=== PATIENT | male | born 1985 | race Caucasian/White ===

== ENCOUNTER → 2020-03-15 10:34 | Outpatient (BNVA) | payer OTHER, SELFPAY | PROVIDERS: Visit Provider Nurse Practitioner Psychiatric/Mental Health | DX: F10.20 Alcohol dependence, uncomplicated (principal) | CPT/HCPCS: 80305; 96372 ==

== ENCOUNTER → 2020-03-29 13:11 | Outpatient (BNVA) | payer OTHER, SELFPAY | PROVIDERS: Visit Provider Nurse Practitioner Psychiatric/Mental Health | DX: Z76.89 Persons encountering health services in other specified circumstances (principal) ==

== ENCOUNTER → 2020-04-12 10:09 | Outpatient (BNVA) | payer OTHER, SELFPAY | PROVIDERS: PCP Internal Medicine; Visit Provider Nurse Practitioner Psychiatric/Mental Health | DX: F10.11 Alcohol abuse, in remission (principal) | CPT/HCPCS: 80305 ==

== ENCOUNTER → 2020-05-10 11:12 | Outpatient (BNVA) | payer OTHER, SELFPAY | PROVIDERS: Visit Provider Nurse Practitioner Psychiatric/Mental Health | DX: F10.21 Alcohol dependence, in remission (principal) | CPT/HCPCS: 80305; 96372 ==

== ENCOUNTER → 2020-06-07 10:58 | Outpatient (BNVA) | payer OTHER, SELFPAY | PROVIDERS: Visit Provider Nurse Practitioner Psychiatric/Mental Health | DX: F10.21 Alcohol dependence, in remission (principal) | CPT/HCPCS: 80305 ==

== ENCOUNTER → 2020-07-12 10:15 | Outpatient (BNVA) | payer OTHER, SELFPAY | PROVIDERS: Visit Provider Nurse Practitioner Psychiatric/Mental Health | DX: F10.21 Alcohol dependence, in remission (principal) | CPT/HCPCS: 80305 ==

== ENCOUNTER → 2020-08-09 10:07 | Outpatient (BNVA) | payer OTHER, SELFPAY | PROVIDERS: Visit Provider Nurse Practitioner Psychiatric/Mental Health | DX: Z51.81 Encounter for therapeutic drug level monitoring (principal); F10.21 Alcohol dependence, in remission | CPT/HCPCS: 80305 ==

== ENCOUNTER → 2020-09-06 10:02 | Outpatient (BNVA) | payer OTHER, SELFPAY | PROVIDERS: Visit Provider Nurse Practitioner Psychiatric/Mental Health | DX: F10.21 Alcohol dependence, in remission (principal) | CPT/HCPCS: 80305; 96372 ==

== ENCOUNTER → 2020-10-04 10:19 | Outpatient (BNVA) | payer OTHER, SELFPAY | PROVIDERS: Visit Provider Nurse Practitioner Psychiatric/Mental Health | DX: F10.21 Alcohol dependence, in remission (principal); Z51.81 Encounter for therapeutic drug level monitoring | CPT/HCPCS: 96372 ==

== ENCOUNTER → 2020-11-01 10:07 | Outpatient (BNVA) | payer OTHER, SELFPAY | PROVIDERS: Visit Provider Nurse Practitioner Psychiatric/Mental Health | DX: F10.21 Alcohol dependence, in remission (principal) | CPT/HCPCS: 80305; 96372 ==

== ENCOUNTER → 2020-11-29 10:06 | Outpatient (BNVA) | payer OTHER, SELFPAY | PROVIDERS: Visit Provider Nurse Practitioner Psychiatric/Mental Health | DX: F10.21 Alcohol dependence, in remission (principal) | CPT/HCPCS: 80305 ==

== ENCOUNTER 2020-12-31 15:10 | Inpatient (IN) | payer OTHER, SELFPAY ==
--- NOTE | ~2020-12-31 | US_ITS ---
EXAMINATION: US ABDOMEN LIMITED CLINICAL INFORMATION: Elevated LFTs. COMPARISON: CT abdomen and pelvis 07/06/2019. TECHNIQUE: Real-time imaging of the right upper quadrant abdominal viscera. FINDINGS: PANCREAS: Normal LIVER: The liver is normal in size. The liver contour is normal. Liver echotexture is increased probably representing fatty infiltration. No focal hepatic lesion. There is no intrahepatic biliary duct dilatation seen. GALLBLADDER: The gallbladder is contracted. No gallstones are seen. COMMON BILE DUCT: Normal in caliber measuring 0.4 cm in diameter. RIGHT KIDNEY: Normal. No hydronephrosis. No renal calculi or focal parenchymal lesions. The kidney measures 10.3 cm in maximum dimension. FREE FLUID: None. US/US abdomen limited IMPRESSION: Echogenic liver probably representing fatty infiltration.
[2020-12-31 16:11] VITALS: BP 172/118; PULSE 118; RESP 18; TEMP 36.9; O2SAT 100; BMI 25.8
[2020-12-31] MEDS: LORazepam 1 MG TABLET 2 MG PO (17:17)
--- NOTE | 2020-12-31 17:23 | ECG_ITS ---
Test Reason : MEDICAL CLEARANCE Blood Pressure : / mmHG Vent. Rate : 068 BPM Atrial Rate : 068 BPM P-R Int : 154 ms QRS Dur : 086 ms QT Int : 414 ms P-R-T Axes : 032 014 021 degrees QTc Int : 440 ms Normal sinus rhythm with sinus arrhythmia Normal ECG When compared with ECG of 02-JUL-2019 08:44, Vent. rate has decreased BY 45 BPM Referred By: Gregor Chery Electronically Signed By:Librado Chanel
--- NOTE | 2020-12-31 17:26 | ED_ITS ---
HPI - Psych General Chief Complaint: Psychiatric Symptoms Stated Complaint: CRISIS Time Seen by Provider: 12/31/20 20:25 Source: patient Mode of arrival: ambulatory Limitations: no limitations History of Present Illness HPI Narrative: Patient presents to the ED for depression and suicide ideation. Patient states due to suicidal ideation that has caused him to excessively drink. Patient states last drink was last night. Patient has been admitted before for suicidal ideation. Patient states SI symptoms MD complaint: suicidal ideation and feels depressed Related Data Home Medications Medication Instructions Recorded Confirmed amlodipine 5 mg tablet 1 tab PO BID 12/31/20 12/31/20 clonidine HCl 0.1 mg tablet 1 tab PO BID 12/31/20 12/31/20 fluoxetine 20 mg capsule 1 cap PO DAILY 12/31/20 12/31/20 Allergies Allergy/AdvReac Type Severity Reaction Status Date / Time No Known Allergies Allergy Unknown UNKNOWN Verified 11/29/20 10:25 [NO KNOWN ALLERGIES] Review of Systems Review of Systems: Yes all other systems are reviewed and are negative Constitutional: Constitutional: Reports as per HPI and Reports no additional constitutional complaints Eyes: Eyes: Reports as per HPI and Reports no additional eye complaints ENT: Reports system reviewed and no additional complaints, except as documented and Reports as per HPI Cardiovascular: Cardiovascular: Reports as per HPI and Reports no additional cardiovascular complaints Respiratory: Respiratory: Reports as per HPI and Reports no additional respiratory complaints Gastrointestinal: Gastrointestinal: Reports as per HPI and Reports no additional gastrointestinal complaints Genitourinary: Genitourinary: Reports no additional male genitourinary complaints and Reports as per HPI Musculoskeletal: Musculoskeletal: Reports no additional musculoskeletal complaints and Reports as per HPI Integumentary/Breasts: Skin/Breast: Reports system reviewed and no additional complaints, except as docu and Reports as per HPI Neurologic: Reports system reviewed and no additional complaints, except as documented and Reports as per HPI Psychiatric: Psychiatric: Reports no additional psychiatric complaints and R eports as per HPI PMFSH Past Medical History Medical History (Updated 01/01/21 @ 00:25 by GLENYS Ortega) ETOH abuse Psychiatric disturbance Social History Social History Advance Directives: No Advance Directives Information Provided: Yes Healthcare Proxy: Yes Guardian: No Physical Exam Vital Signs: Vital Signs: Last Vital Signs Temp 98.4 F 12/31/20 16:11 Pulse 85 12/31/20 22:08 Resp 18 12/31/20 16:11 BP 137/92 H 12/31/20 22:08 Pulse Ox 100 12/31/20 16:11 Body Mass Index 25.8 Const: General: cooperative, healthy appearing, comfortable, no acute distress, well developed, alert, awake and Physically active Orientation/consciousness: patient oriented x3 HENMT: Head: Yes normal to inspection, Yes No palpable skull fracture present, Yes normocephalic, Yes atraumatic and No abrasion Eyes: General: appearance normal, both eyes and all related structures Neck: Neck: Yes normal visual inspection, Yes full ROM, Yes no lymphadenopathy, Yes no meningeal signs, Yes trachea midline, Yes supple and No tender Chest: Chest palpation & inspection: normal inspection of the chest and normal palpation of entire chest wall Resp: Effort & Inspection: normal respiratory effort and able to speak in complete sentences Auscultation: clear to auscultation bilaterally Cardio: Jugular venous distension: no JVD Heart sounds: S1 normal heart sound present and S2 normal heart sound present GI: Inspection: Yes normal to inspection and No abdominal wall ecchymosis Palpation (GI): Soft to palpation, not firm, nontender, no guarding and not rigid : General: No CVA tenderness and Yes no CVA tenderness Back/Spine/Pelvis: Back: no CVA tenderness, No CVA tenderness and No back tenderness Skin: General skin exam: no rashes or lesions noted and elasticity normal Neuro: Other: Positive for tremors General: patient oriented x3, gait normal and no meningeal signs Cranial nerves: Yes CN's II-XII intact bilaterally Extrem: General: Yes normal to inspection and Yes full ROM Psych: Appearance: grossly normal, well kempt and not disheveled Course Course Course Narrative: Patient medical evaluation. Patient may be early alcohol withdrawal versus severe anxiety. Patient does not do alcohol abuse. Will give Ativan and Librium and re-evaluate. Basic labs ordered Reevaluation(s) Reevaluation #1: Patient's tremors resolved. Patient feels better. Patient evaluated by care team consulted had other who states patient will be a voluntary psych inpatient. Time: 00:24 MDM - Psych MDM Narrative Medical decision making narrative: Depression Lab Data Result diagrams: 12/31/20 19:21 12/31/20 19:21 Labs: Lab Results 12/31/20 12/31/20 12/31/20 Range/Units 17:21 17:40 17:40 WBC (4.8-10.8) X10*3/uL RBC (4.60-5.80) X10*6/uL Hgb (14.0-18.0) g/dl Hct (42-52) % MCV (80-98) fL MCH (27.0-33.0) pg MCHC (31.0-36.0) g/dl RDW (11.0-16.0) % Plt Count (160-400) X10*3/uL MPV (9.4-12.4) fL Immature Gran % (Auto) (0.0-0.4) % Neut % (Auto) (45-73) % Lymph % (Auto) (20-40) % [place] % (Auto) (2-11) % Eos % (Auto) (0-4) % Baso % (Auto) (0-2) % Lymph # (Auto) (1.2-4.9) X10*3/uL [place] # (Auto) (0.1-1.2) X10*3/uL Eos # (Auto) (0.0-0.4) X10*3/uL Baso # (Auto) (0.0-0.2) X10*3/uL Abs Immat Gran (auto) (0.00-0.03) X10*3/uL Absolute Neuts (auto) (2.0-8.3) X10*3/uL Absolute Nucleated RBC (0.0-0.012) X10*3/uL Nucleated RBC % (auto) (0.0-0.2) /100WBC Sodium (135-145) mmol/L Potassium (3.3-5.1) mmol/L Chloride (96-108) mmol/L Carbon Dioxide (22-29) mmol/L Anion Gap (12-20) BUN (9-16) mg/dL Creatinine (0.5-1.4) mg/dL Estim Creat Clear Calc Estimated GFR Random Glucose (60-115) mg/dL Calcium (8.4-10.2) mg/dL Total Bilirubin (0.0-1.0) mg/dL Direct Bilirubin (0.0-0.5) mg/dL AST (5-37) U/L ALT (0-40) U/L Alkaline Phosphatase (39-117) U/L Total Protein (6.5-8.0) g/dL Albumin (3.5-5.0) g/dL Urine Color YELLOW Urine Appearance CLEAR Urine pH 6.0 (5.0-8.0) Ur Specific [place] 1.020 (1.005-1.025) Urine Protein 2+ H (NEG-TRACE) MG/DL Urine Glucose (UA) NEG (NEG) MG/DL Urine Ketones >=80 (NEG) MG/DL Urine Blood NEG (NEG) Urine Nitrite NEG (NEG) Ur Leukocyte Esterase NEG (NEG) Urine RBC 0-2 (0) /HPF Urine WBC 0 (0-4) /HPF Ur Squamous Epith Cells NONE /LPF Urine Bacteria TRACE /LPF Urine Opiates Screen Not Detected (Not Detect) Ur Barbiturates Screen Not Detected (Not Detect) Ur Phencyclidine Scrn Not Detected (Not Detect) Ur Amphetamines Screen Not Detected (Not Detect) U Benzodiazepines Scrn Not Detected (Not Detect) Urine Cocaine Screen Not Detected (Not Detect) U Marijuana (THC) Screen Not Detected (Not Detect) Ethyl Alcohol mg/dL COVID-19 (LUCI) Negative (Negative) COVID-19 Clin Com See Note 12/31/20 12/31/20 12/31/20 Range/Units 19:20 19:21 19:21 WBC 4.6 L (4.8-10.8) X10*3/uL RBC 4.35 L (4.60-5.80) X10*6/uL Hgb 13.7 L (14.0-18.0) g/dl Hct 38.2 L (42-52) % MCV 87.8 (80-98) fL MCH 31.5 (27.0-33.0) pg MCHC 35.9 (31.0-36.0) g/dl RDW 11.6 (11.0-16.0) % Plt Count 158 L (160-400) X10*3/uL MPV 9.5 (9.4-12.4) fL Immature Gran % (Auto) 0.2 (0.0-0.4) % Neut % (Auto) 75.3 H (45-73) % Lymph % (Auto) 12.7 L (20-40) % [place] % (Auto) 11.4 H (2-11) % Eos % (Auto) 0.0 (0-4) % Baso % (Auto) 0.4 (0-2) % Lymph # (Auto) 0.6 L (1.2-4.9) X10*3/uL [place] # (Auto) 0.5 (0.1-1.2) X10*3/uL Eos # (Auto) 0.0 (0.0-0.4) X10*3/uL Baso # (Auto) 0.0 (0.0-0.2) X10*3/uL Abs Immat Gran (auto) 0.01 (0.00-0.03) X10*3/uL Absolute Neuts (auto) 3.5 (2.0-8.3) X10*3/uL Absolute Nucleated RBC 0.000 (0.0-0.012) X10*3/uL Nucleated RBC % (auto) 0.0 (0.0-0.2) /100WBC Sodium 134 L (135-145) mmol/L Potassium 3.1 L (3.3-5.1) mmol/L Chloride 97 (96-108) mmol/L Carbon Dioxide 24 (22-29) mmol/L Anion Gap 16 (12-20) BUN 11 (9-16) mg/dL Creatinine 0.88 (0.5-1.4) mg/dL Estim Creat Clear Calc 113.3 Estimated GFR > 60 Random Glucose 155 H (60-115) mg/dL Calcium 9.8 (8.4-10.2) mg/dL Total Bilirubin 0.6 (0.0-1.0) mg/dL Direct Bilirubin 0.3 (0.0-0.5) mg/dL AST 87 H (5-37) U/L ALT 230 H (0-40) U/L Alkaline Phosphatase 54 (39-117) U/L Total Protein 7.9 (6.5-8.0) g/dL Albumin 4.9 (3.5-5.0) g/dL Urine Color Urine Appearance Urine pH (5.0-8.0) Ur Specific [place] (1.005-1.025) Urine Protein (NEG-TRACE) MG/DL Urine Glucose (UA) (NEG) MG/DL Urine Ketones (NEG) MG/DL Urine Blood (NEG) Urine Nitrite (NEG) Ur Leukocyte Esterase (NEG) Urine RBC (0) /HPF Urine WBC (0-4) /HPF Ur Squamous Epith Cells /LPF Urine Bacteria /LPF Urine Opiates Screen (Not Detect) Ur Barbiturates Screen (Not Detect) Ur Phencyclidine Scrn (Not Detect) Ur Amphetamines Screen (Not Detect) U Benzodiazepines Scrn (Not Detect) Urine Cocaine Screen (Not Detect) U Marijuana (THC) Screen (Not Detect) Ethyl Alcohol < 10 mg/dL COVID-19 (LUCI) (Negative) COVID-19 Clin Com Discharge Plan Discharge Clinical Impression: Depression Prescriptions: No Action clonidine HCl 0.1 mg tablet 1 tab PO BID RF: 0 amlodipine 5 mg tablet 1 tab PO BID RF: 0 fluoxetine 20 mg capsule 1 cap PO DAILY RF: 0
[2020-12-31] MEDS: chlordiazePOXIDE HCl 25 MG CAPSULE 50 MG PO (17:38)
[2020-12-31 17:49] LABS: Glucose Urine UA NEG (NEG); Leukocyte Esterase Urine NEG (NEG); Nitrite Urine NEG (NEG); UACC Culture Trigger NO; Urine Blood NEG (NEG); Urine Ketones >=80 MG/DL (NEG); Urine Protein 2+ MG/DL (NEG-TRACE)
[2020-12-31 17:50] LABS: Appearance Urine CLEAR; Color Urine YELLOW
[2020-12-31 17:58] LABS: COVID-19 Test Negative (Negative)
[2020-12-31 18:01] VITALS: BP 166/107; PULSE 104
[2020-12-31 18:01] LABS: Bacteria Urine TRACE /LPF; RBC Urine 0-2 /HPF (0); WBC Urine 0 /HPF (0-4)
[2020-12-31 18:10] LABS: Amphetamine Screen Urine Not Detected (Not Detect); Barbiturates, Urine Not Detected (Not Detect); Benzodiazepines Screen Urine Not Detected (Not Detect); Cannabinoid Screen Urine Not Detected (Not Detect); Cocaine Screen Urine Not Detected (Not Detect); Opiate Screen Urine Not Detected (Not Detect); Phencyclidine Screen Urine Not Detected (Not Detect)
--- NOTE | 2020-12-31 18:47 | MHC.CARE ---
Pt contacted CARE team by phone prior to arrival and reported that he has been struggling with his mental health and increased alcohol use and is seeking admission. CARE team will meet with pt once he is medically cleared. It is possible that he may be in mild-moderate alcohol withdrawal and has been given PO librium and ativan. Blood pressure and heart rate are elevated. Full lab results pending.
[2020-12-31 18:57] VITALS: BP 137/85; PULSE 100
[2020-12-31 19:01] VITALS: BP 137/85; PULSE 100
[2020-12-31 19:26] LABS: MANUAL DIFF FLAG NO
[2020-12-31 19:28] LABS: Basophils Percent Auto 0.4 % (0-2); Hematocrit 38.2 % (42-52); Hemoglobin 13.7 g/dl (14.0-18.0); Imm Gran Abs Auto 0.01 X10*3/uL (0.00-0.03); Imm Gran Pct Auto 0.2 % (0.0-0.4); Lymphocytes Absolute Auto 0.6 X10*3/uL (1.2-4.9); Lymphocytes Percent Auto 12.7 % (20-40); Mean Corpuscular HGB Conc 35.9 g/dl (31.0-36.0); Mean Corpuscular Hemoglobin 31.5 pg (27.0-33.0); Mean Corpuscular Volume 87.8 fL (80-98); Mean Platelet Volume 9.5 fL (9.4-12.4); Monocytes Absolute Auto 0.5 X10*3/uL (0.1-1.2); Monocytes Percent Auto 11.4 % (2-11); Neutrophils Absolute Auto 3.5 X10*3/uL (2.0-8.3); Neutrophils Percent Auto 75.3 % (45-73); Platelet Count 158 X10*3/uL (160-400); Red Blood Count 4.35 X10*6/uL (4.60-5.80); Red Cell Distribution Width 11.6 % (11.0-16.0); White Blood Count 4.6 X10*3/uL (4.8-10.8)
[2020-12-31 19:49] LABS: Ethanol < 10 mg/dL
[2020-12-31 19:53] LABS: Alanine Aminotransferase 230 U/L (0-40); Albumin Level 4.9 g/dL (3.5-5.0); Alkaline Phosphatase 54 U/L (39-117); Anion Gap 16 (12-20); Aspartate Amino Transferase 87 U/L (5-37); Bilirubin Direct 0.3 mg/dL (0.0-0.5); Bilirubin Total 0.6 mg/dL (0.0-1.0); Blood Urea Nitrogen 11 mg/dL (9-16); Calcium 9.8 mg/dL (8.4-10.2); Carbon Dioxide 24 mmol/L (22-29); Chloride 97 mmol/L (96-108); Creatinine Clr Calc Pharmacy 113.3; Estimated Glomerular Filt Rate > 60; Glucose Random 155 mg/dL (60-115); Potassium 3.1 mmol/L (3.3-5.1); Sodium 134 mmol/L (135-145); Total Protein 7.9 g/dL (6.5-8.0)
--- NOTE | 2020-12-31 21:59 | PC.NURSE ---
Patient got assessed by care team, disposition notified was voluntary inpatient bed search, patient/provider are in agreement to the plan, will continue to monitor.
[2020-12-31 22:08] VITALS: BP 137/92; PULSE 85
--- NOTE | 2020-12-31 22:27 | MHC.CARE ---
CARE team completed assessment with pt. Disposition is for voluntary psychiatric admission. Gregor VERONICA is in agreement with plan of care. He will be presented for possible admission to M5 or M3 tomorrow.
[2021-01-01] VITALS (7 sets, daily range): BP systolic 132–166; BP diastolic 90–107; PULSE 78–103; RESP 17–20; TEMP 36.4–36.9; O2SAT 99–100
[2021-01-01] MEDS: chlordiazePOXIDE HCl 25 MG CAPSULE PO (02:46)
--- NOTE | 2021-01-01 02:52 | PC.NURSE ---
Patient's CIWA assessed was 10, provider notified/ordered Librium 25 mg/administered as ordered/pending effect. will continue to monitor.
--- NOTE | 2021-01-01 05:46 | PC.NURSE ---
Patient slept through the night, up once for bathroom use and back, scored 10 on CIWA/administered Librium 25 mg with + effect, pending EKG, patient's disposition is Voluntary inpatient bed search, behavior pleasant & appropriate, appetite good, medication compliant, will continue to monitor.
[2021-01-01] MEDS: FLUoxetine HCl 20 MG CAPSULE PO (08:36)
[2021-01-01] MEDS: amLODIPine Besylate 5 MG TABLET PO ×2 (08:36→21:51)
[2021-01-01] MEDS: cloNIDine HCL 0.1 MG TABLET PO ×2 (08:36→21:50)
[2021-01-01] MEDS: LORazepam 1 MG TABLET 2 MG PO ×2 (09:03→13:45)
--- NOTE | 2021-01-01 10:28 | PC.NURSE ---
AT 0800 THIS AM PATIENT SHOWING SIGNS OF ETOH WITHDRAWL, PROVIDER AWARE AND ATIVAN ORDERED. PT EMEKALY IS SHOWING NO SIGNS OF WITHDRAWL WILL REEVAL IN 2 HOURS
--- NOTE | 2021-01-01 13:48 | PC.NURSE ---
CALLED TO GIVE REPORT STATED ROOM WASNT READY
--- NOTE | 2021-01-01 14:15 | PC.NURSE ---
REPORT GIVEN TO ISIDRO DENISE ON, ONCE ROOM IS READY PT WILL BE GOING TO [phone]
--- NOTE | 2021-01-01 15:11 | P.CNPS_ITS ---
History of Present Illness Date of Service: 01/01/2021 Chief Complaint: ALCOHOL USE DISORDER, SI, DEPRESSION Reason for Consult: Alcohol Withdrawal, SI Requesting physician: Taylor Ambrosio Discussed with referring provider: Yes Sources of Information: patient interviewed, chart reviewed and crisis/core team assessment reviewed HPI Narrative: Kar is a 35 year old male who carries a diagnosis of Alcohol Use Disorder, moderate, and unspecified depressive disorder. He self presented to the ED seeking psychiatric admission due to worsening symptoms of anxiety, increasing alcohol use, and suicidal ideation. He is seen by Nnia CAMPBELL for vivitrol injection at the [facility] since 10/2019, last fill was 11/07/2020. He reports feeling like his last injection was not administered properly and that he did not get his full dose, something felt different. He reports he woke up with a dreadful feeling and that this worsened over time and became so bad, I was having major cravings all day long. He reports he continued to drink on vivitrol but felt it was controlling his binge drinking behavior, would have a few drinks once or twice a week. In the past month, this progressed to heavier drinking and he began to drink daily, would have 3-4 drinks of either beer or mixed drinks, was measuring his shots. He reports that prior to this most recent relapse, he felt good benefit on his medication regimen of clonidine, fluoxetine, and vivitrol. He was on gabapentin but his PCP took him off it as he was doing better. Last hospitalization was on M5 in July and October 2019. Hx of [facility] admission 07/2019. He had a Sect 35 Commitment in 06/2019 and DUI in 07/2019. Kar was evaluated this afternoon and upon interview he reports he was feeling hopeless, had really depressive thoughts, and would wake up with a feeling of dread. He reports the last time he felt this way I almost killed myself with a plan to drink himself to . He reports he has suicidal ideation with plan to drink himself again if he left the hospital. Says sleep has been disrupted, but he has used trazodone in the past with good effect. He currently feels safe at the hospital. He denies symptoms of irritability or aggressive ideation. In the milieu, his behavior is safe and appropriate and he is engaging with staff. 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: No c/o dizziness, headache GI: No c/o Nausea, Vomiting, diarrhea, constipation or heartburn [facility] Medical History (Updated 01/01/21 @ 00:25 by GLENYS Ortega) ETOH abuse Psychiatric disturbance Diagnostics Vital Signs (24Hr): Vital Signs - 24 hr 12/31/20 16:11 12/31/20 18:01 12/31/20 18:57 Temperature 98.4 F Pulse Rate 118 H 104 H 100 Respiratory Rate 18 Blood Pressure 172/118 H 166/107 H 137/85 Pulse Oximetry 100 12/31/20 19:01 12/31/20 22:08 01/01/21 02:16 Temperature 98.2 F Pulse Rate 100 85 85 Respiratory Rate 20 Blood Pressure 137/85 137/92 H 159/107 H Pulse Oximetry 99 01/01/21 07:43 01/01/21 08:36 01/01/21 14:21 Temperature 98.5 F 97.5 F Pulse Rate 78 78 99 Respiratory Rate 17 20 Blood Pressure 153/97 H 153/97 H 166/104 H Pulse Oximetry 100 99 Body Mass Index 25.8 Labs Results: 12/31/20 19:21 12/31/20 19:21 Labs: Laboratory Results - last 48 hr 12/31/20 12/31/20 12/31/20 17:21 17:40 17:40 WBC RBC Hgb Hct MCV MCH MCHC RDW Plt Count MPV Immature Gran % (Auto) Neut % (Auto) Lymph % (Auto) [place] % (Auto) Eos % (Auto) Baso % (Auto) Lymph # (Auto) [place] # (Auto) Eos # (Auto) Baso # (Auto) Abs Immat Gran (auto) Absolute Neuts (auto) Absolute Nucleated RBC Nucleated RBC % (auto) Sodium Potassium Chloride Carbon Dioxide Anion Gap BUN Creatinine Estim Creat Clear Calc Estimated GFR Random Glucose Calcium Total Bilirubin Direct Bilirubin AST ALT Alkaline Phosphatase Total Protein Albumin Urine Color YELLOW Urine Appearance CLEAR Urine pH 6.0 Ur Specific [place] 1.020 Urine Protein 2+ H Urine Glucose (UA) NEG Urine Ketones >=80 Urine Blood NEG Urine Nitrite NEG Ur Leukocyte Esterase NEG Urine RBC 0-2 Urine WBC 0 Ur Squamous Epith Cells NONE Urine Bacteria TRACE Urine Opiates Screen Not Detected Ur Barbiturates Screen Not Detected Ur Phencyclidine Scrn Not Detected Ur Amphetamines Screen Not Detected U Benzodiazepines Scrn Not Detected Urine Cocaine Screen Not Detected U Marijuana (THC) Screen Not Detected Ethyl Alcohol COVID-19 (LUCI) Negative COVID-19 Clin Com See Note 12/31/20 12/31/20 12/31/20 19:20 19:21 19:21 WBC 4.6 L RBC 4.35 L Hgb 13.7 L Hct 38.2 L MCV 87.8 MCH 31.5 MCHC 35.9 RDW 11.6 Plt Count 158 L MPV 9.5 Immature Gran % (Auto) 0.2 Neut % (Auto) 75.3 H Lymph % (Auto) 12.7 L [place] % (Auto) 11.4 H Eos % (Auto) 0.0 Baso % (Auto) 0.4 Lymph # (Auto) 0.6 L [place] # (Auto) 0.5 Eos # (Auto) 0.0 Baso # (Auto) 0.0 Abs Immat Gran (auto) 0.01 Absolute Neuts (auto) 3.5 Absolute Nucleated RBC 0.000 Nucleated RBC % (auto) 0.0 Sodium 134 L Potassium 3.1 L Chloride 97 Carbon Dioxide 24 Anion Gap 16 BUN 11 Creatinine 0.88 Estim Creat Clear Calc 113.3 Estimated GFR > 60 Random Glucose 155 H Calcium 9.8 Total Bilirubin 0.6 Direct Bilirubin 0.3 AST 87 H ALT 230 H Alkaline Phosphatase 54 Total Protein 7.9 Albumin 4.9 Urine Color Urine Appearance Urine pH Ur Specific [place] Urine Protein Urine Glucose (UA) Urine Ketones Urine Blood Urine Nitrite Ur Leukocyte Esterase Urine RBC Urine WBC Ur Squamous Epith Cells Urine Bacteria Urine Opiates Screen Ur Barbiturates Screen Ur Phencyclidine Scrn Ur Amphetamines Screen U Benzodiazepines Scrn Urine Cocaine Screen U Marijuana (THC) Screen Ethyl Alcohol < 10 COVID-19 (LUCI) COVID-19 Clin Com Mental Status Exam Mental Status Exam Narrative: Well groomed, good hygiene, normal body habitus, in hospital gown. Good eye contact, attentive. No Tics or Tremors. No abnormal involuntary movements. Anxious, cooperative, engaged. Non-pressured speech, spontaneous with regular rate and rhythm, normal volume and prosody. No prolonged speech latency or dysarthria. Mood is ?hopeless,? affect is nervous. Endorses SI with plan, intent to drink himself to . Denies SIB/HI upon inquiry. Denies A/VH or delusional thought content. Thoughts are coherent, organized. No known cognitive or memory impairment. Insight/ Judgment fair and adequate. Medications Medications Current Medications Generic Name Dose Route Start Last Admin Trade Name Davey PRN Reason Stop Dose Admin Amlodipine Besylate 5 mg 01/01/21 09:00 01/01/21 08:36 Amlodipine Besylate 5 Mg Tablet PO 5 mg BID VANESSA Administration Protocol Clonidine HCl 0.1 mg 01/01/21 09:00 01/01/21 08:36 Clonidine Hcl 0.1 Mg Tablet PO 0.1 mg BID VANESSA Administration Protocol Fluoxetine HCl 20 mg 01/01/21 09:00 01/01/21 08:36 Fluoxetine Hcl 20 Mg Capsule PO 20 mg DAILY VANESSA Administration Allergies Allergies Allergy/AdvReac Type Severity Reaction Status Date / Time No Known Allergies Allergy Unknown UNKNOWN Verified 11/29/20 10:25 [NO KNOWN ALLERGIES] Assessment & Plan Assessment & Plan (1) Alcohol use disorder, severe, in early remission: Status: Acute Code(s): F10.21 - Alcohol dependence, in remission (2) Depression: Status: Acute Code(s): F32.9 - Major depressive disorder, single episode, unspecified Assessment and Plan: -Continue monitoring medically. Patient is currently medically cleared. -Transfer to . -Continue CIWA (last score 4 at 13:09) ? Greater than 50% of the session was spent on counseling and/or coordination of care
--- NOTE | 2021-01-01 15:26 | MHC.CARE ---
CARE Team spoke with patient in [facility] to get more information about his recent drinking patterns. He stated that end of December 02 he started having cravings (usually does not) and started drinking in the evenings after work, would have 3-4 drinks of either beer or mixed drinks, was measuring his shots, trying to modulate his intake but not able to, was drinking daily. The weekends were stated to be difficult to assess the amount because he would drink through the day into the night. Not blackouts or passing out. Patient said he has abstained since his last admission here 09/2019, was doing well on Vivitrol. Does not go to AA, different types of self help groups were discussed. He does not have a therapist at this time, was meeting with someone from [facility] after his discharge from but did not continue--unfortunately after several biweekly sessions the therapist told him he was doing well and to call if he needed to get back into treatment. Encouraged patient to build his support system and also to put things in place for holiday weekends which tend to be problematic for patient's recovery, he appears motivated for treatment and to get back on track.
[2021-01-01] MEDS: LORazepam 1 MG TABLET PO ×2 (17:45→21:52)
[2021-01-01] MEDS: traZODone HCL 50 MG TABLET PO (21:50)
--- NOTE | 2021-01-02 00:39 | PC.ADMIT ---
A 35 year old single, white male was [facility] as [facility] following referral from CARE team and [facility]. Pt reported was previously admitted here on M5 about 1.5 years ago. Pt has history of section 35 at [facility], [facility] and [facility]. Pt receiving Vivitrol through [facility] since 202. Pt reported Vivitrol has been helpful until recently.Pt self-presented to [facility] with worsening symptoms of depression and anxiety accompanied by increased Etoh use for past month. Pt said cravings for excess Etoh consumption was diminished with pt able to drin 2-3 drinks per week without binge drinking. Pt reported drank in binge pattern over 02 of December weekend and then found he woke with increased anxiety depression and a sense of dread and a desire to drink to make these symptoms go away . Pt reported this was accompanied by dark thoughts and passive SI and thoughts to drink self to . Pt denied SI/HI and said can seek out staff for help. Pt denied AH/VH. Pt has no history of self harm. Pt said he sought help earlier this time before symptoms of SI began. Pt reports poor sleep with difficulty falling asleep and difficulty remaining asleep. Pt was calm and cooperative throughout admission. Pt denies substance use. Medical issues include only HTN. [id number] done, initial treatment plan done and admission orders obtained. Pt is resting in room on 15 minute checks art this time.
[2021-01-02 06:00] VITALS: BP 139/88; PULSE 92; RESP 16; TEMP 36.4; O2SAT 98
[2021-01-02] MEDS: LORazepam 1 MG TABLET 0.5 MG PO ×2 (09:54→21:32)
[2021-01-02] MEDS: FLUoxetine HCl 20 MG CAPSULE PO (09:55)
[2021-01-02 09:58] VITALS: BP 137/92; PULSE 92
[2021-01-02] MEDS: amLODIPine Besylate 5 MG TABLET PO ×2 (09:58→21:31)
[2021-01-02] MEDS: cloNIDine HCL 0.1 MG TABLET PO ×2 (09:58→21:31)
[2021-01-02 18:00] VITALS: BP 132/68; PULSE 59; TEMP 36.3
--- NOTE | 2021-01-02 19:25 | P.HPPS_ITS ---
HPI Chief Complaint: ALCOHOL USE DISORDER, SI, DEPRESSION Sources of Information: patient interviewed, chart reviewed and crisis/core team assessment reviewed HPI Subjective Notes: Villavicencio Warning and Conditional Voluntary Healthcare Proxy: No Guardianship: No Medical Problems Affecting Mental Status: No Narrative: 35 yo male presents for an increase in sx of anxiety/depression/SI and an increase in alcohol use to manage those sx over the past 12+ weeks. Pt receives Vivitrol injections from [facility] reporting this to be a significantly helpful intervention for him- it gave me a normal life . Now, however pt reports increasing anxiety, uneasiness, poor concentration and has increased alcohol use, believing he is self-medicating. Asks that we refer him for out pt therapy and medication mgt as he believes current plan is not enough as it feels as if I am starting to lose control . Endorses SI and would like to utilize his time in hospital to stabilize. Past Psychiatric History: IP: [facility] 2019 x 2 OP: No current providers Trials: [facility] Medical Evaluation Reviewed: Yes [facility] Medical History ETOH abuse Psychiatric disturbance Family History: Alcoholism and mental illness pt reports on both sides of his family. Social History: Living alone currently. No children. Substance History: Alcohol, daily for ~90+days. 2019-[facility]Jul 2019 after receiving DUI [facility] Comprehensive Care-October 2019 to present Trauma History: Affirms Diagnostics Vital Signs (24Hr): Vital Signs - 24 hr 01/01/21 21:50 01/01/21 21:51 01/02/21 06:00 Temperature 97.6 F Pulse Rate 88 88 92 Respiratory Rate 16 Blood Pressure 132/90 H 132/90 H 139/88 Pulse Oximetry 98 01/02/21 09:58 Temperature Pulse Rate 92 Respiratory Rate Blood Pressure 137/92 H Pulse Oximetry Body Mass Index 25.8 Labs Results: 01/03/21 07:55 01/03/21 07:55 Labs: Laboratory Results - last 48 hr 12/31/20 12/31/20 12/31/20 19:20 19:21 19:21 WBC 4.6 L RBC 4.35 L Hgb 13.7 L Hct 38.2 L MCV 87.8 MCH 31.5 MCHC 35.9 RDW 11.6 Plt Count 158 L MPV 9.5 Immature Gran % (Auto) 0.2 Neut % (Auto) 75.3 H Lymph % (Auto) 12.7 L [place] % (Auto) 11.4 H Eos % (Auto) 0.0 Baso % (Auto) 0.4 Lymph # (Auto) 0.6 L [place] # (Auto) 0.5 Eos # (Auto) 0.0 Baso # (Auto) 0.0 Abs Immat Gran (auto) 0.01 Absolute Neuts (auto) 3.5 Absolute Nucleated RBC 0.000 Nucleated RBC % (auto) 0.0 Sodium 134 L Potassium 3.1 L Chloride 97 Carbon Dioxide 24 Anion Gap 16 BUN 11 Creatinine 0.88 Estim Creat Clear Calc 113.3 Estimated GFR > 60 Random Glucose 155 H Calcium 9.8 Total Bilirubin 0.6 Direct Bilirubin 0.3 AST 87 H ALT 230 H Alkaline Phosphatase 54 Total Protein 7.9 Albumin 4.9 Ethyl Alcohol < 10 Meds/Allergies Meds Home Medications Acetaminophen (Acetaminophen 325 Mg Tablet) 650 mg PO Q6H PRN PRN Reason: Headache/Pain Mild Scale (1-3) Al Hydroxide/Mg Hydroxide (Magnesium Hydrox/Alum Hydrox 30 Ml Oral.Susp) 30 ml PO Q6H PRN PRN Reason: Heartburn/Nausea Amlodipine Besylate (Amlodipine Besylate 5 Mg Tablet) 5 mg PO BID [facility]; Protocol Last Admin: 01/03/21 09:02 Dose: 5 mg Documented by: Clonidine HCl (Clonidine Hcl 0.1 Mg Tablet) 0.1 mg PO BID [facility]; Protocol Last Admin: 01/03/21 09:01 Dose: 0.1 mg Documented by: Fluoxetine HCl (Fluoxetine Hcl 10 Mg Capsule) 30 mg PO DAILY [facility] Last Admin: 01/03/21 09:00 Dose: 30 mg Documented by: Hydroxyzine HCl (Hydroxyzine Hcl 25 Mg Tablet) 25 mg PO Q6H PRN PRN Reason: Anxiety Last Admin: 01/02/21 21:33 Dose: 25 mg Documented by: Lorazepam (Lorazepam 1 Mg Tablet) 1 mg PO Q6H PRN; Taper PRN Reason: Alcohol Withdrawal Stop: 01/05/21 16:30 Last Admin: 01/02/21 21:32 Dose: 1 mg Documented by: Magnesium Hydroxide (Milk Of Magnesia 30 Ml Oral.Susp) 30 ml PO DAILY PRN PRN Reason: Constipation Mirtazapine (Mirtazapine 15 Mg Tablet) 15 mg PO BEDTIME [facility] Last Admin: 01/02/21 21:33 Dose: 15 mg Documented by: Multivitamins/Minerals (Multivitamin With Minerals Tablet) 1 tab PO DAILY [facility] Last Admin: 01/03/21 09:01 Dose: 1 tab Documented by: Trazodone HCl (Trazodone Hcl 50 Mg Tablet) 50 mg PO BEDTIME PRN PRN Reason: Insomnia Last Admin: 01/02/21 21:33 Dose: 50 mg Documented by: Allergies Allergies Allergy/AdvReac Type Severity Reaction Status Date / Time No Known Allergies Allergy Unknown UNKNOWN Verified 11/29/20 10:25 [NO KNOWN ALLERGIES] Mental Status Exam Mental Status Exam Patient Appearance: Appropriate Patient Orientation: Person, Place, Time and Situation Level of Consciousness: Alert Patient Behavior: Talkative Mood Description: Depressed Affect Description: Flat Patient Cognition Impaired: No Ability to Follow Directions: Good Speech Pattern: Spontaneous Speech Memory Description: Intact Hallucinations: None Delusions: Not Present Thought Process: Goal Oriented Thought Content: positive for Goal Oriented Depressive Symptoms: Increased Anxiety and Thoughts of /Suicide Judgement: Good Assessment & Plan Assessment & Plan (1) Recurrent major depression-severe: Status: Acute Code(s): F33.2 - Major depressive disorder, recurrent severe without psychotic features Assessment and Plan: -Increase Prozac to 30 mg daily -Remeron 15 mg HS -Labs -Collateral contact -Aftercare planning (2) Alcohol use disorder, severe, in early remission: Status: Acute Code(s): F10.21 - Alcohol dependence, in remission Patient educated on: diagnosis, medication risk/benefits and therapeutic strategies Informed Consent: understands and further education needed Reason for continued inpatient stay Substantial Risk for: harm to self, inability to function and rapid deco mpensation
[2021-01-02 21:31] VITALS: BP 132/68; PULSE 59
[2021-01-02] MEDS: hydrOXYzine HCL 25 MG TABLET PO (21:33)
[2021-01-02] MEDS: traZODone HCL 50 MG TABLET PO (21:33)
[2021-01-02] MEDS: Mirtazapine 15 MG TABLET PO (21:33)
--- NOTE | 2021-01-03 | ECG_ITS ---
Test Reason : BRADYCARDIA Blood Pressure : / mmHG Vent. Rate : 050 BPM Atrial Rate : 050 BPM P-R Int : 162 ms QRS Dur : 088 ms QT Int : 422 ms P-R-T Axes : 008 011 024 degrees QTc Int : 384 ms Sinus bradycardia Otherwise normal ECG When compared with ECG of 01-JAN-2021 08:42, QT has shortened Referred By: Zachary Tinsley Electronically Signed By:Librado Chanel
[2021-01-03 06:00] VITALS: BP 101/60; PULSE 50; RESP 18; TEMP 35.8; O2SAT 97
[2021-01-03 07:00] VITALS: BMI 25.2
[2021-01-03 08:07] LABS: MANUAL DIFF FLAG NO
[2021-01-03 08:19] LABS: Basophils Percent Auto 0.5 % (0-2); Eosinophils Absolute Auto 0.1 X10*3/uL (0.0-0.4); Eosinophils Percent Auto 2.4 % (0-4); Hematocrit 43.3 % (42-52); Hemoglobin 14.9 g/dl (14.0-18.0); Imm Gran Abs Auto 0.01 X10*3/uL (0.00-0.03); Imm Gran Pct Auto 0.2 % (0.0-0.4); Lymphocytes Absolute Auto 1.4 X10*3/uL (1.2-4.9); Lymphocytes Percent Auto 32.2 % (20-40); Mean Corpuscular HGB Conc 34.4 g/dl (31.0-36.0); Mean Corpuscular Hemoglobin 31.1 pg (27.0-33.0); Mean Corpuscular Volume 90.4 fL (80-98); Monocytes Absolute Auto 0.6 X10*3/uL (0.1-1.2); Monocytes Percent Auto 14.8 % (2-11); Neutrophils Absolute Auto 2.1 X10*3/uL (2.0-8.3); Neutrophils Percent Auto 49.9 % (45-73); Platelet Count 160 X10*3/uL (160-400); Red Blood Count 4.79 X10*6/uL (4.60-5.80); Red Cell Distribution Width 11.7 % (11.0-16.0); White Blood Count 4.3 X10*3/uL (4.8-10.8)
[2021-01-03 08:37] LABS: Estimated Average Glucose 103 mg/dL; Hemoglobin A1c % 5.2 %
[2021-01-03 08:57] LABS: Alanine Aminotransferase 492 U/L (0-40); Albumin Level 4.7 g/dL (3.5-5.0); Alkaline Phosphatase 52 U/L (39-117); Anion Gap 12 (12-20); Aspartate Amino Transferase 349 U/L (5-37); Bilirubin Direct 0.3 mg/dL (0.0-0.5); Bilirubin Total 0.6 mg/dL (0.0-1.0); Blood Urea Nitrogen 11 mg/dL (9-16); Calcium 9.9 mg/dL (8.4-10.2); Carbon Dioxide 27 mmol/L (22-29); Chloride 105 mmol/L (96-108); Cholesterol 242 mg/dL; Creatinine Clr Calc Pharmacy 114.6; Estimated Glomerular Filt Rate > 60; Glucose Fasting 113 mg/dL (60-99); HDL Cholesterol 62 mg/dL; LDL Cholesterol Calculated 158 mg/dl; Potassium 4.3 mmol/L (3.3-5.1); Sodium 140 mmol/L (135-145); Total Protein 7.5 g/dL (6.5-8.0); Triglycerides 110 mg/dL
[2021-01-03] MEDS: FLUoxetine HCl 10 MG CAPSULE 30 MG PO (09:00)
[2021-01-03 09:01] VITALS: BP 120/83; PULSE 64
[2021-01-03] MEDS: cloNIDine HCL 0.1 MG TABLET PO ×2 (09:01→20:56)
[2021-01-03] MEDS: amLODIPine Besylate 5 MG TABLET PO ×2 (09:02→20:56)
[2021-01-03 09:09] LABS: Free T4 (Free Thyroxine) 0.87 ng/dL (0.71-1.85); Thyroid Stimulating Hormone 0.99 uIU/mL (0.32-4.0); Vitamin D 25-OH Total 26.4 ng/mL (>30)
[2021-01-03 10:30] LABS: Folate 15.7 ng/mL (> or = 4.0); Vitamin B12 886 pg/mL (200-900)
--- NOTE | 2021-01-03 10:36 | P.CONIM_ITS ---
History of Present Illness Data of Consult Service Date: 01/03/21 Requesting physician: Bridgett Herman Primary Care Provider: Cristóbal Abraham MD [facility] Reason for consult: hypertension This is a [facility] Medical History ETOH abuse Psychiatric disturbance Social History Household Members: None Housing: House Do you presently have visiting nurse or other home services: No Patient Tobacco Use Status: Never used Tobacco Smoked in Last 30 Days: No e-Cigarette/Vaping Use: Never Used Patient Interested in Nicotine Replacement: No Patient Given Instructions on How to Stop Smoking: No Second Hand Smoke Exposure: No Use of substances other than those prescribed or required for medical reasons: No Currently Displaying Signs/Symptoms of Drug Intoxication Withdrawal: No Any prior treatment program specific to substance use: No Have you been hit, kicked, punched, or otherwise hurt by someone within the past year? If so, by whom?: No Do you feel safe in your current relationship?: No Current Relationship Is there a partner from a previous relationship who is making you feel unsafe now?: No Are you made to feel afraid or neglected: No Spiritual Healthcare Practices: None Catholic Healthcare Practices: None Cultural Healthcare Practices: None Advance Directives: No Advance Directives Information Provided: Yes Advance Directives on File: No Healthcare Proxy: Yes Guardian: No Do you have thoughts of harming others: None Do you have a plan to hurt others: No Plan Recently lost weight without trying: No Eating poorly because of decreased appetite: No service: No Sexual orientation: Straight/Heterosexual Meds Allergies Allergy/AdvReac Type Severity Reaction Status Date / Time No Known Allergies Allergy Unknown UNKNOWN Verified 11/29/20 10:25 [NO KNOWN ALLERGIES] Active Medications: Current Medications Generic Name Dose Route Start Last Admin Trade Name Freq PRN Reason Stop Dose Admin Acetaminophen 650 mg 01/01/21 16:35 Acetaminophen 325 Mg Tablet PO Q6H PRN Headache/Pain Mild Scale (1-3) Al Hydroxide/Mg Hydroxide 30 ml 01/01/21 16:35 Magnesium Hydrox/Alum Hydrox 30 Ml Oral.Susp PO Q6H PRN Heartburn/Nausea Amlodipine Besylate 5 mg 01/01/21 09:00 01/03/21 09:02 Amlodipine Besylate 5 Mg Tablet PO 5 mg BID [facility] Administration Protocol Clonidine HCl 0.1 mg 01/01/21 09:00 01/03/21 09:01 Clonidine Hcl 0.1 Mg Tablet PO 0.1 mg BID [facility] Administration Protocol Fluoxetine HCl 30 mg 01/03/21 09:00 01/03/21 09:00 Fluoxetine Hcl 10 Mg Capsule PO 30 mg DAILY [facility] Administration Hydroxyzine HCl 25 mg 01/01/21 16:35 01/02/21 21:33 Hydroxyzine Hcl 25 Mg Tablet PO 25 mg Q6H PRN Administration Anxiety Lorazepam 1 mg 01/02/21 00:05 01/02/21 21:32 Lorazepam 1 Mg Tablet PO 01/05/21 16:30 1 mg Q6H PRN Administration Alcohol Withdrawal Taper Magnesium Hydroxide 30 ml 01/01/21 16:35 Milk Of Magnesia 30 Ml Oral.Susp PO DAILY PRN Constipation Mirtazapine 15 mg 01/02/21 21:00 01/02/21 21:33 Mirtazapine 15 Mg Tablet PO 15 mg BEDTIME VANESSA Administration Multivitamins/Minerals 1 tab 01/03/21 09:00 01/03/21 09:01 Multivitamin With Minerals Tablet PO 1 tab DAILY [facility] Administration Trazodone HCl 50 mg 01/01/21 16:35 01/02/21 21:33 Trazodone Hcl 50 Mg Tablet PO 50 mg BEDTIME PRN Administration Insomnia Home Medications Medication Instructions Recorded Confirmed Last Taken Type amlodipine 5 mg tablet 1 tab PO BID 12/31/20 12/31/20 Unknown History clonidine HCl 0.1 mg tablet 1 tab PO BID 12/31/20 12/31/20 Unknown History fluoxetine 20 mg capsule 1 cap PO DAILY 12/31/20 12/31/20 Unknown History Physical Exam Vital Signs and Narrative: Vital Signs: Last Vital Signs Temp 96.4 F L 01/03/21 06:00 Pulse 64 01/03/21 09:01 Resp 18 01/03/21 06:00 BP 120/83 01/03/21 09:01 Pulse Ox 97 01/03/21 06:00 Body Mass Index 25.8 Results Labs CBC and Chem 7: 01/03/21 07:55 01/03/21 07:55 Labs: Laboratory Results - last 24 hr 01/03/21 01/03/21 01/03/21 07:55 07:55 07:55 MCV 90.4 MCH 31.1 MCHC 34.4 RDW 11.7 Plt Count 160 MPV 10.0 Immature Gran % (Auto) 0.2 Neut % (Auto) 49.9 Lymph % (Auto) 32.2 [place] % (Auto) 14.8 H Eos % (Auto) 2.4 Baso % (Auto) 0.5 Lymph # (Auto) 1.4 [place] # (Auto) 0.6 Eos # (Auto) 0.1 Baso # (Auto) 0.0 Abs Immat Gran (auto) 0.01 Absolute Neuts (auto) 2.1 Absolute Nucleated RBC 0.000 Nucleated RBC % (auto) 0.0 Anion Gap 12 Estim Creat Clear Calc 114.6 Estimated GFR > 60 Fasting Glucose 113 H Estimat Average Glucose Hemoglobin A1c % Calcium 9.9 Total Bilirubin 0.6 Direct Bilirubin 0.3 AST 349 H ALT 492 H Alkaline Phosphatase 52 Total Protein 7.5 Albumin 4.7 Triglycerides 110 Cholesterol 242 LDL Cholesterol, Calc 158 HDL Cholesterol 62 Vitamin B12 886 25-OH Vitamin D Total 26.4 Folate 15.7 TSH 0.99 Free T4 0.87 01/03/21 07:55 MCV MCH MCHC RDW Plt Count MPV Immature Gran % (Auto) Neut % (Auto) Lymph % (Auto) [place] % (Auto) Eos % (Auto) Baso % (Auto) Lymph # (Auto) [place] # (Auto) Eos # (Auto) Baso # (Auto) Abs Immat Gran (auto) Absolute Neuts (auto) Absolute Nucleated RBC Nucleated RBC % (auto) Anion Gap Estim Creat Clear Calc Estimated GFR Fasting Glucose Estimat Average Glucose 103 Hemoglobin A1c % 5.2 Calcium Total Bilirubin Direct Bilirubin AST ALT Alkaline Phosphatase Total Protein Albumin Triglycerides Cholesterol LDL Cholesterol, Calc HDL Cholesterol Vitamin B12 25-OH Vitamin D Total Folate TSH Free T4
--- NOTE | 2021-01-03 10:41 | P.CNHOSGPS_ITS ---
History of Present Illness Data of Consult Service Date: 01/03/21 Requesting physician: Bridgett Herman Primary Care Provider: Cristóbal Abraham MD [facility] Reason for consult: hypertension 35-year-old male with past medical history of hypertension who presents to [facility] for increased anxiety and depression. We are consulted on the patient for hypertension. Patient reports that he has history of hypertension but has been recently drinking alcohol to alleviate his depression anxiety symptoms. Blood pressure today is 120/83. Patient reports that his heart rate was in the high 40s this morning but he was asymptomatic. Denies having any chest pain, no shortness of breath, denies any nausea or vomiting, no abdominal pain, no urinary symptoms and no lower extremity edema. Patient reports that he has chronically on clonidine and amlodipine for his blood pressure and does well at home 1 when he starts drinking his blood pressure increases. Vitals reviewed, heart rate this morning is 64, blood pressure is 120/83. At 6:00 a.m. his blood pressure was 101/60, heart rate of 50. Patient reports asymptomatic Labs from this a.m. unremarkable except for an elevated AST and ALT which appear to be chronically elevated although worsened today. Review of Systems Review of Systems: Yes all other systems are reviewed and are negative [facility] Medical History (Updated 01/03/21 @ 11:32 by Zachary Tinsley MD) Anxiety and depression ETOH abuse Hypertension Psychiatric disturbance Social History Household Members: None Housing: House Do you presently have visiting nurse or other home services: No Patient Tobacco Use Status: Never used Tobacco Smoked in Last 30 Days: No e-Cigarette/Vaping Use: Never Used Patient Interested in Nicotine Replacement: No Patient Given Instructions on How to Stop Smoking: No Second Hand Smoke Exposure: No Use of substances other than those prescribed or required for medical reasons: No Currently Displaying Signs/Symptoms of Drug Intoxication Withdrawal: No Any prior treatment program specific to substance use: No Have you been hit, kicked, punched, or otherwise hurt by someone within the past year? If so, by whom?: No Do you feel safe in your current relationship?: No Current Relationship Is there a partner from a previous relationship who is making you feel unsafe now?: No Are you made to feel afraid or neglected: No Spiritual Healthcare Practices: None [employer] Healthcare Practices: None Cultural Healthcare Practices: None Advance Directives: No Advance Directives Information Provided: Yes Advance Directives on File: No Healthcare Proxy: Yes Guardian: No Do you have thoughts of harming others: None Do you have a plan to hurt others: No Plan Recently lost weight without trying: No Eating poorly because of decreased appetite: No service: No Sexual orientation: Straight/Heterosexual Meds Allergies Allergy/AdvReac Type Severity Reaction Status Date / Time No Known Allergies Allergy Unknown UNKNOWN Verified 11/29/20 10:25 [NO KNOWN ALLERGIES] Active Medications: Current Medications Generic Name Dose Route Start Last Admin Trade Name Freq PRN Reason Stop Dose Admin Acetaminophen 650 mg 01/01/21 16:35 Acetaminophen 325 Mg Tablet PO Q6H PRN Headache/Pain Mild Scale (1-3) Al Hydroxide/Mg Hydroxide 30 ml 01/01/21 16:35 Magnesium Hydrox/Alum Hydrox 30 Ml Oral.Susp PO Q6H PRN Heartburn/Nausea Amlodipine Besylate 5 mg 01/01/21 09:00 01/03/21 09:02 Amlodipine Besylate 5 Mg Tablet PO 5 mg BID [facility] Administration Protocol Clonidine HCl 0.1 mg 01/01/21 09:00 01/03/21 09:01 Clonidine Hcl 0.1 Mg Tablet PO 0.1 mg BID [facility] Administration Protocol Fluoxetine HCl 30 mg 01/03/21 09:00 01/03/21 09:00 Fluoxetine Hcl 10 Mg Capsule PO 30 mg DAILY [facility]ES[facility] Administration Hydroxyzine HCl 25 mg 01/01/21 16:35 01/02/21 21:33 Hydroxyzine Hcl 25 Mg Tablet PO 25 mg Q6H PRN Administration Anxiety Lorazepam 1 mg 01/02/21 00:05 01/02/21 21:32 Lorazepam 1 Mg Tablet PO 01/05/21 16:30 1 mg Q6H PRN Administration Alcohol Withdrawal Taper Magnesium Hydroxide 30 ml 01/01/21 16:35 Milk Of Magnesia 30 Ml Oral.Susp PO DAILY PRN Constipation Mirtazapine 15 mg 01/02/21 21:00 01/02/21 21:33 Mirtazapine 15 Mg Tablet PO 15 mg BEDTIME [facility]ANESSA Administration Multivitamins/Minerals 1 tab 01/03/21 09:00 01/03/21 09:01 Multivitamin With Minerals Tablet PO 1 tab DAILY [facility]ES[facility] Administration Trazodone HCl 50 mg 01/01/21 16:35 08/04/21 21:33 Trazodone Hcl 50 Mg Tablet PO 50 mg BEDTIME PRN Administration Insomnia Home Medications Medication Instructions Recorded Confirmed Last Taken Type amlodipine 5 mg tablet 1 tab PO BID 12/31/20 12/31/20 Unknown History clonidine HCl 0.1 mg tablet 1 tab PO BID 12/31/20 12/31/20 Unknown History fluoxetine 20 mg capsule 1 cap PO DAILY 12/31/20 12/31/20 Unknown History Results Labs CBC and Chem 7: 01/03/21 07:55 01/03/21 07:55 Labs: Laboratory Results - last 24 hr 01/03/21 01/03/21 01/03/21 07:55 07:55 07:55 MCV 90.4 MCH 31.1 MCHC 34.4 RDW 11.7 Plt Count 160 MPV 10.0 Immature Gran % (Auto) 0.2 Neut % (Auto) 49.9 Lymph % (Auto) 32.2 [place] % (Auto) 14.8 H Eos % (Auto) 2.4 Baso % (Auto) 0.5 Lymph # (Auto) 1.4 [place] # (Auto) 0.6 Eos # (Auto) 0.1 Baso # (Auto) 0.0 Abs Immat Gran (auto) 0.01 Absolute Neuts (auto) 2.1 Absolute Nucleated RBC 0.000 Nucleated RBC % (auto) 0.0 Anion Gap 12 Estim Creat Clear Calc 114.6 Estimated GFR > 60 Fasting Glucose 113 H Estimat Average Glucose Hemoglobin A1c % Calcium 9.9 Total Bilirubin 0.6 Direct Bilirubin 0.3 AST 349 H ALT 492 H Alkaline Phosphatase 52 Total Protein 7.5 Albumin 4.7 Triglycerides 110 Cholesterol 242 LDL Cholesterol, Calc 158 HDL Cholesterol 62 Vitamin B12 886 25-OH Vitamin D Total 26.4 Folate 15.7 TSH 0.99 Free T4 0.87 01/03/21 07:55 MCV MCH MCHC RDW Plt Count MPV Immature Gran % (Auto) Neut % (Auto) Lymph % (Auto) [place] % (Auto) Eos % (Auto) Baso % (Auto) Lymph # (Auto) [place] # (Auto) Eos # (Auto) Baso # (Auto) Abs Immat Gran (auto) Absolute Neuts (auto) Absolute Nucleated RBC Nucleated RBC % (auto) Anion Gap Estim Creat Clear Calc Estimated GFR Fasting Glucose Estimat Average Glucose 103 Hemoglobin A1c % 5.2 Calcium Total Bilirubin Direct Bilirubin AST ALT Alkaline Phosphatase Total Protein Albumin Triglycerides Cholesterol LDL Cholesterol, Calc HDL Cholesterol Vitamin B12 25-OH Vitamin D Total Folate TSH Free T4 Assessment and Plan (1) Elevated LFTs: Status: Acute (2) Hypertension: Status: Acute (3) Bradycardia: Status: Acute Pt admitted to [facility] for management of anxiety and depression. We are consulted for hypertension. # hypertension - controlled - initially on admission patient's blood pressure was elevated most likely secondary to alcohol abuse and mild withdrawal - patient blood pressure is now controlled - on clonidine and amlodipine at home - will continue home medications # elevated LFTs - ALT higher than AST - will obtain abdominal ultrasound as well as hepatitis panel - follow LFTs - if LFTs continue to be elevated will consider consulting GI # bradycardia - patient reports bradycardia overnight with heart rate in the high 40s this a.m. - vitals reviewed heart rate in the high 50s - patient asymptomatic - most likely secondary to clonidine - will obtain an EKG - continue vital signs per unit policy - emphasized for patient that if he becomes dizzy, lightheaded, any change in vision to inform staff # depression and anxiety - management per psych Thank you for this consult will follow up on elevated LFTs
[2021-01-03 12:21] LABS: HBS Num1 4.76 mIU/mL (0-7.99); ~Hepatitis B Surface Antibody NONREACTIVE (Nonreactive)
[2021-01-03 13:22] LABS: HBsAGNum1 0.16 S/CO (0.00-0.99); Hepatitis B Core Antibody Nonreactive (Nonreactive); Hepatitis B Surface Antigen Negative (Negative); ~HepC Num1 0.14 S/CO (0.00-0.79); ~Hepatitis C Antibody Nonreactive (Nonreactive)
--- NOTE | 2021-01-03 13:36 | HO.PSYCHPN ---
Subjective Subjective Date of Service: 01/03/21 Reason For Visit: ALCOHOL USE DISORDER, SI, DEPRESSION Subjective Notes: Conditional Voluntary Healthcare Proxy: No Guardianship: No Medical Problems Affecting Mental Status: No Interim History: Reports a decrease in overall sx of anxiety, dread. Reports he is tolerating medication changes however felt shakey and anxious after taking Mirtazapine last night. Will trial a decrease to 7.5 mg. Reports he slept well. Review of diagnostics-discussed elevated LFT's- hepatitis panel and ultrasound ordered by Dr. Tinsley. Discussed hypokalemia. Pt is prepared to receive his Vivitrol-will request when testing is completed. Medication Compliance: Yes Side effects from medications: Yes (?contributing to elevation in LFT levels) Attending Groups: Intermittent Review of Systems Acute medical concerns: No Elevated LFT's- Hep Screen and hepatic ultrasound ordered along with daily liver panel. Medical Review of Systems: unchanged Review of Systems Psychiatric: Reports abnormal sleep pattern (improved with mirtazapine), Reports anxiety, Reports depression and Reports suicidal ideation (resolving) Mental Status Exam Mental Status Exam Patient Appearance: Appropriate Patient Orientation: Person, Place, Time and Situation Level of Consciousness: Alert Patient Behavior: Appropriate, Talkative, Cooperative and Good Eye Contact Mood Description: Depressed and Anxious Affect Description: Flat Patient Cognition Impaired: No Ability to Follow Directions: Good Speech Pattern: Spontaneous Speech Memory Description: Intact Hallucinations: None Delusions: Not Present Thought Process: Rumination and Goal Oriented Thought Content: positive for Goal Oriented and positive for Suicidal Ideation (resolving) Depressive Symptoms: Increased Anxiety, Difficulty Sleeping, Loss of Int. in Activity and Unhappiness Judgement: Good Diagnostics Vital Signs (24Hr): Vital Signs - 24 hr 01/02/21 18:00 01/02/21 21:31 01/03/21 06:00 Temperature 97.4 F 96.4 F L Pulse Rate 59 59 50 Respiratory Rate 18 Blood Pressure 132/68 132/68 101/60 Pulse Oximetry 97 01/03/21 09:01 Temperature Pulse Rate 64 Respiratory Rate Blood Pressure 120/83 Pulse Oximetry Body Mass Index 25.2 Labs Results: 01/03/21 07:55 01/03/21 07:55 Labs: Laboratory Results - last 48 hr 01/03/21 01/03/21 01/03/21 07:55 07:55 07:55 WBC 4.3 L RBC 4.79 Hgb 14.9 Hct 43.3 MCV 90.4 MCH 31.1 MCHC 34.4 RDW 11.7 Plt Count 160 MPV 10.0 Immature Gran % (Auto) 0.2 Neut % (Auto) 49.9 Lymph % (Auto) 32.2 [place] % (Auto) 14.8 H Eos % (Auto) 2.4 Baso % (Auto) 0.5 Lymph # (Auto) 1.4 [place] # (Auto) 0.6 Eos # (Auto) 0.1 Baso # (Auto) 0.0 Abs Immat Gran (auto) 0.01 Absolute Neuts (auto) 2.1 Absolute Nucleated RBC 0.000 Nucleated RBC % (auto) 0.0 Sodium 140 Potassium 4.3 D Chloride 105 Carbon Dioxide 27 Anion Gap 12 BUN 11 Creatinine 0.87 Estim Creat Clear Calc 114.6 Estimated GFR > 60 Fasting Glucose 113 H Estimat Average Glucose Hemoglobin A1c % Calcium 9.9 Total Bilirubin 0.6 Direct Bilirubin 0.3 AST 349 H ALT 492 H Alkaline Phosphatase 52 Total Protein 7.5 Albumin 4.7 Triglycerides 110 Cholesterol 242 LDL Cholesterol, Calc 158 HDL Cholesterol 62 Vitamin B12 886 25-OH Vitamin D Total 26.4 Folate 15.7 TSH 0.99 Free T4 0.87 Hep Bs Antigen Hep Bs Antibody Hep B Core Total Ab Hepatitis C Ab (EIA) 01/03/21 01/03/21 07:55 07:55 WBC RBC Hgb Hct MCV MCH MCHC RDW Plt Count MPV Immature Gran % (Auto) Neut % (Auto) Lymph % (Auto) [place] % (Auto) Eos % (Auto) Baso % (Auto) Lymph # (Auto) [place] # (Auto) Eos # (Auto) Baso # (Auto) Abs Immat Gran (auto) Absolute Neuts (auto) Absolute Nucleated RBC Nucleated RBC % (auto) Sodium Potassium Chloride Carbon Dioxide Anion Gap BUN Creatinine Estim Creat Clear Calc Estimated GFR Fasting Glucose Estimat Average Glucose 103 Hemoglobin A1c % 5.2 Calcium Total Bilirubin Direct Bilirubin AST ALT Alkaline Phosphatase Total Protein Albumin Triglycerides Cholesterol LDL Cholesterol, Calc HDL Cholesterol Vitamin B12 25-OH Vitamin D Total Folate TSH Free T4 Hep Bs Antigen Negative Hep Bs Antibody NONREACTIVE Hep B Core Total Ab Nonreactive Hepatitis C Ab (EIA) Nonreactive Medications Medications Current Medications Generic Name Dose Route Start Last Admin Trade Name Freq PRN Reason Stop Dose Admin Acetaminophen 650 mg 01/01/21 16:35 Acetaminophen 325 Mg Tablet PO Q6H PRN Headache/Pain Mild Scale (1-3) Al Hydroxide/Mg Hydroxide 30 ml 01/01/21 16:35 Magnesium Hydrox/Alum Hydrox 30 Ml Oral.Susp PO Q6H PRN Heartburn/Nausea Amlodipine Besylate 5 mg 01/01/21 09:00 01/03/21 09:02 Amlodipine Besylate 5 Mg Tablet PO 5 mg BID VANESSA Administration Protocol Clonidine HCl 0.1 mg 01/01/21 09:00 01/03/21 09:01 Clonidine Hcl 0.1 Mg Tablet PO 0.1 mg BID VANESSA Administration Protocol Fluoxetine HCl 30 mg 01/03/21 09:00 01/03/21 09:00 Fluoxetine Hcl 10 Mg Capsule PO 30 mg DAILY VANESSA Administration Hydroxyzine HCl 25 mg 01/01/21 16:35 01/02/21 21:33 Hydroxyzine Hcl 25 Mg Tablet PO 25 mg Q6H PRN Administration Anxiety Lorazepam 1 mg 01/02/21 00:05 01/02/21 21:32 Lorazepam 1 Mg Tablet PO 01/05/21 16:30 1 mg Q6H PRN Administration Alcohol Withdrawal Taper Magnesium Hydroxide 30 ml 01/01/21 16:35 Milk Of Magnesia 30 Ml Oral.Susp PO DAILY PRN Constipation Mirtazapine 15 mg 01/02/21 21:00 01/02/21 21:33 Mirtazapine 15 Mg Tablet PO 15 mg BEDTIME VANESSA Administration Multivitamins/Minerals 1 tab 01/03/21 09:00 01/03/21 09:01 Multivitamin With Minerals Tablet PO 1 tab DAILY VANESSA Administration Trazodone HCl 50 mg 01/01/21 16:35 01/02/21 21:33 Trazodone Hcl 50 Mg Tablet PO 50 mg BEDTIME PRN Administration Insomnia Allergies Allergies Allergy/AdvReac Type Severity Reaction Status Date / Time No Known Allergies Allergy Unknown UNKNOWN Verified 11/29/20 10:25 [NO KNOWN ALLERGIES] Assessment & Plan Assessment & Plan (1) Recurrent major depression-severe: Status: Acute Code(s): F33.2 - Major depressive disorder, recurrent severe without psychotic features Assessment and Plan: Continue Prozac Decrease Mirtazapine to 7.5 mg HS (2) Alcohol use disorder, severe, in early remission: Status: Acute Code(s): F10.21 - Alcohol dependence, in remission Assessment and Plan: Pt prepared for Vivitrol injection, will await hepatic ultrasound result. Assessment and Plan: Pt admitted to [facility] for management of anxiety and depression. We are consulted for hypertension. # hypertension - controlled - initially on admission patient's blood pressure was elevated most likely secondary to alcohol abuse and mild withdrawal - patient blood pressure is now controlled - on clonidine and amlodipine at home - will continue home medications # elevated LFTs - ALT higher than AST - will obtain abdominal ultrasound as well as hepatitis panel - follow LFTs - if LFTs continue to be elevated will consider consulting GI # bradycardia - patient reports bradycardia overnight with heart rate in the high 40s this a.m. - vitals reviewed heart rate in the high 50s - patient asymptomatic - most likely secondary to clonidine - will obtain an EKG - continue vital signs per unit policy - emphasized for patient that if he becomes dizzy, lightheaded, any change in vision to inform staff # depression and anxiety - management per psych Thank you for this consult will follow up on elevated LFTs Greater than 50% of the session was spent on counseling and/or coordination of care Reason for contiued inpatient stay Substantial Risk for: harm to self, inability to function and rapid decompensation
[2021-01-03] MEDS: LORazepam 1 MG TABLET 0.5 MG PO (17:01)
[2021-01-03 18:00] VITALS: BP 137/69; PULSE 77; TEMP 36.5
[2021-01-03 20:56] VITALS: BP 137/69; PULSE 77
[2021-01-03] MEDS: traZODone HCL 50 MG TABLET PO (20:57)
[2021-01-03] MEDS: Mirtazapine 7.5 MG TABLET PO (20:58)
[2021-01-04 06:00] VITALS: BP 136/89; PULSE 63; RESP 16; TEMP 36.4; O2SAT 99
[2021-01-04 08:35] VITALS: BP 136/89; PULSE 67
[2021-01-04] MEDS: cloNIDine HCL 0.1 MG TABLET PO ×2 (08:35→20:57)
[2021-01-04] MEDS: FLUoxetine HCl 10 MG CAPSULE 30 MG PO (08:35)
[2021-01-04] MEDS: amLODIPine Besylate 5 MG TABLET PO ×2 (08:35→20:57)
[2021-01-04 08:48] LABS: Alanine Aminotransferase 530 U/L (0-40); Albumin Level 4.7 g/dL (3.5-5.0); Alkaline Phosphatase 50 U/L (39-117); Aspartate Amino Transferase 313 U/L (5-37); Bilirubin Direct 0.2 mg/dL (0.0-0.5); Bilirubin Total 0.4 mg/dL (0.0-1.0); Total Protein 7.6 g/dL (6.5-8.0)
[2021-01-04 09:48] LABS: Hepatitis A Antibody IgM 0.16 Index (0-0.79); ~Hepatitis A Antibody IgM Nonreactive (Nonreactive)
--- NOTE | 2021-01-04 11:15 | P.BOP_ITS ---
Brief Operative Note Date of Service: 01/04/21 Pre-op diagnosis: screening Post-op diagnosis: same Procedure: colonoscopy Surgeon: Iam Tyler Anesthesia: MAC Was an Fisheries Specialist used for this Procedure?: No Estimated blood loss (mL): 0 Pathology: other (polyps x3) Condition: stable Disposition: PACU
--- NOTE | 2021-01-04 14:59 | P.PNPSI_ITS ---
Subjective Subjective Date of Service: 01/04/21 Reason For Visit: ALCOHOL USE DISORDER, SI, DEPRESSION Subjective Notes: Conditional Voluntary Healthcare Proxy: No Guardianship: No Medical Problems Affecting Mental Status: No Interim History: Kar reports feeling some improvement, less anxious, less depressed. We reviewed his diagnostics thus far, Abd US-fatty liver, AST 349-313 and ALT 492-530. Discussed holding Vivitrol until we have a complete picture of hepatic issues and return of Hepatitis profile. Pt concurs. Medication Compliance: Yes Side effects from medications: No Attending Groups: No Review of Systems Acute medical concerns: Yes Hepatic eval in progress Medical Review of Systems: unchanged Mental Status Exam Mental Status Exam Patient Appearance: Appropriate Patient Orientation: Person, Place, Time and Situation Level of Consciousness: Alert Patient Behavior: Appropriate, Talkative and Cooperative Mood Description: Constricted Affect Description: Constricted Patient Cognition Impaired: No Ability to Follow Directions: Good Speech Pattern: Spontaneous Speech Memory Description: Intact Hallucinations: None Delusions: Not Present Thought Process: Intact and Goal Oriented Thought Content: positive for Intact, positive for Goal Oriented and positive for Suicidal Ideation (denies) Judgement: Good Diagnostics Vital Signs (24Hr): Vital Signs - 24 hr 01/03/21 18:00 01/03/21 20:56 01/04/21 06:00 Temperature 97.7 F 97.5 F Pulse Rate 77 77 63 Respiratory Rate 16 Blood Pressure 137/69 137/69 136/89 Pulse Oximetry 99 01/04/21 08:35 Temperature Pulse Rate 67 Respiratory Rate Blood Pressure 136/89 Pulse Oximetry Body Mass Index 25.2 Labs Results: 01/03/21 07:55 01/03/21 07:55 Labs: Laboratory Results - last 48 hr 01/03/21 01/03/21 01/03/21 07:55 07:55 07:55 WBC 4.3 L RBC 4.79 Hgb 14.9 Hct 43.3 MCV 90.4 MCH 31.1 MCHC 34.4 RDW 11.7 Plt Count 160 MPV 10.0 Immature Gran % (Auto) 0.2 Neut % (Auto) 49.9 Lymph % (Auto) 32.2 [place] % (Auto) 14.8 H Eos % (Auto) 2.4 Baso % (Auto) 0.5 Lymph # (Auto) 1.4 [place] # (Auto) 0.6 Eos # (Auto) 0.1 Baso # (Auto) 0.0 Abs Immat Gran (auto) 0.01 Absolute Neuts (auto) 2.1 Absolute Nucleated RBC 0.000 Nucleated RBC % (auto) 0.0 Sodium 140 Potassium 4.3 D Chloride 105 Carbon Dioxide 27 Anion Gap 12 BUN 11 Creatinine 0.87 Estim Creat Clear Calc 114.6 Estimated GFR > 60 Fasting Glucose 113 H Estimat Average Glucose Hemoglobin A1c % Calcium 9.9 Total Bilirubin 0.6 Direct Bilirubin 0.3 AST 349 H ALT 492 H Alkaline Phosphatase 52 Total Protein 7.5 Albumin 4.7 Triglycerides 110 Cholesterol 242 LDL Cholesterol, Calc 158 HDL Cholesterol 62 Vitamin B12 886 25-OH Vitamin D Total 26.4 Folate 15.7 TSH 0.99 Free T4 0.87 Hepatitis A IgM Ab Hep Bs Antigen Hep Bs Antibody Hep B Core Total Ab Hepatitis C Ab (EIA) 01/03/21 01/03/21 01/04/21 07:55 07:55 08:00 WBC RBC Hgb Hct MCV MCH MCHC RDW Plt Count MPV Immature Gran % (Auto) Neut % (Auto) Lymph % (Auto) [place] % (Auto) Eos % (Auto) Baso % (Auto) Lymph # (Auto) [place] # (Auto) Eos # (Auto) Baso # (Auto) Abs Immat Gran (auto) Absolute Neuts (auto) Absolute Nucleated RBC Nucleated RBC % (auto) Sodium Potassium Chloride Carbon Dioxide Anion Gap BUN Creatinine Estim Creat Clear Calc Estimated GFR Fasting Glucose Estimat Average Glucose 103 Hemoglobin A1c % 5.2 Calcium Total Bilirubin 0.4 Direct Bilirubin 0.2 AST 313 H ALT 530 H Alkaline Phosphatase 50 Total Protein 7.6 Albumin 4.7 Triglycerides Cholesterol LDL Cholesterol, Calc HDL Cholesterol Vitamin B12 25-OH Vitamin D Total Folate TSH Free T4 Hepatitis A IgM Ab Nonreactive Hep Bs Antigen Negative Hep Bs Antibody NONREACTIVE Hep B Core Total Ab Nonreactive Hepatitis C Ab (EIA) Nonreactive Imaging Radiology Impressions: ITS Impressions Abdomen Ultrasound 01/04/21 08:15 IMPRESSION: Echogenic liver probably representing fatty infiltration. Medications Medications Current Medications Generic Name Dose Route Start Last Admin Trade Name Freq PRN Reason Stop Dose Admin Acetaminophen 650 mg 01/01/21 16:35 Acetaminophen 325 Mg Tablet PO Q6H PRN Headache/Pain Mild Scale (1-3) Al Hydroxide/Mg Hydroxide 30 ml 01/01/21 16:35 Magnesium Hydrox/Alum Hydrox 30 Ml Oral.Susp PO Q6H PRN Heartburn/Nausea Amlodipine Besylate 5 mg 01/01/21 09:00 01/04/21 08:35 Amlodipine Besylate 5 Mg Tablet PO 5 mg BID VANESSA Administration Protocol Clonidine HCl 0.1 mg 01/01/21 09:00 01/04/21 08:35 Clonidine Hcl 0.1 Mg Tablet PO 0.1 mg BID VANESSA Administration Protocol Fluoxetine HCl 30 mg 01/03/21 09:00 01/04/21 08:35 Fluoxetine Hcl 10 Mg Capsule PO 30 mg DAILY VANESSA Administration Hydroxyzine HCl 25 mg 01/01/21 16:35 01/02/21 21:33 Hydroxyzine Hcl 25 Mg Tablet PO 25 mg Q6H PRN Administration Anxiety Lorazepam 0.5 mg 01/02/21 00:05 01/03/21 17:01 Lorazepam 1 Mg Tablet PO 01/05/21 16:30 0.5 mg Q6H PRN Administration Alcohol Withdrawal Taper Magnesium Hydroxide 30 ml 01/01/21 16:35 Milk Of Magnesia 30 Ml Oral.Susp PO DAILY PRN Constipation Mirtazapine 7.5 mg 01/03/21 21:00 01/03/21 20:58 Mirtazapine 7.5 Mg Tablet PO 7.5 mg BEDTIME VANESSA Administration Multivitamins/Minerals 1 tab 01/03/21 09:00 01/04/21 08:35 Multivitamin With Minerals Tablet PO 1 tab DAILY VANESSA Administration Omeprazole 20 mg 01/04/21 16:30 Omeprazole 20 Mg Capsule. PO BID@[id number],6625 [facility] Trazodone HCl 50 mg 01/01/21 16:35 01/03/21 20:57 Trazodone Hcl 50 Mg Tablet PO 50 mg BEDTIME PRN Administration Insomnia Allergies Allergies Allergy/AdvReac Type Severity Reaction Status Date / Time No Known Allergies Allergy Unknown UNKNOWN Verified 11/29/20 10:25 [NO KNOWN ALLERGIES] Assessment & Plan Assessment & Plan (1) Recurrent major depression-severe: Status: Acute Code(s): F33.2 - Major depressive disorder, recurrent severe without psychotic features Assessment and Plan: Continue Prozac and Mirtazapine. (2) Alcohol use disorder, severe, in early remission: Status: Acute Code(s): F10.21 - Alcohol dependence, in remission Assessment and Plan: Pt prepared for [facility] injection, will await hepatic ultrasound result. Assessment and Plan: Pt admitted to U for management of anxiety and depression. We are consulted for hypertension. # hypertension - controlled - initially on admission patient's blood pressure was elevated most likely secondary to alcohol abuse and mild withdrawal - patient blood pressure is now controlled - on clonidine and amlodipine at home - will continue home medications # elevated LFTs - ALT higher than AST - will obtain abdominal ultrasound as well as hepatitis panel - follow LFTs - if LFTs continue to be elevated will consider consulting GI # bradycardia - patient reports bradycardia overnight with heart rate in the high 40s this a.m. - vitals reviewed heart rate in the high 50s - patient asymptomatic - most likely secondary to clonidine - will obtain an EKG - continue vital signs per unit policy - emphasized for patient that if he becomes dizzy, lightheaded, any change in vision to inform staff # depression and anxiety - management per psych Thank you for this consult will follow up on elevated LFTs Greater than 50% of the session was spent on counseling and/or coordination of care Patient educated on: diagnosis, medication risk/benefits and therapeutic strategies Informed Consent: understands and further education needed Reason for contiued inpatient stay Substantial Risk for: harm to self, inability to function and rapid decompensation
[2021-01-04] MEDS: Omeprazole 20 MG CAPSULE.DR PO (15:46)
[2021-01-04 17:36] LABS: Lyme Abs Screen <0.90 index
[2021-01-04 18:00] VITALS: BP 158/97; PULSE 74; TEMP 36.6
--- NOTE | 2021-01-04 19:57 | CONS_ITS ---
DATE OF SERVICE: 01/04/2021 REFERRING PHYSICIAN: Velasquez Cole MD REASON FOR CONSULTATION: Elevated liver enzymes. HISTORY OF PRESENT ILLNESS: The patient is a pleasant 35-year-old man, who was admitted to the inpatient psychiatric unit on January 02 with symptomatic anxiety and alcohol use. Consultation is requested regarding his liver function tests, which are elevated. The patient describes intermittent alcohol binges in the past, for which he has sought detox. He relates this to his anxiety. He believes he was drinking about 1/2 of a 750 mL bottle of vodka for the 2-week period prior to admission. He was evaluated with lab work, which showed elevation of his liver function tests on the day of admission with an AST of 87 and an ALT of 230. These have increased to 313 and 530 respectively as of this morning. Alkaline phosphatase and total bilirubin have been normal. The patient was evaluated with an abdominal ultrasound, which is reviewed. This is interpreted as showing an echogenic liver suspicious for fatty infiltration. The patient has had elevation of his enzymes in the past according to his primary care provider, who was told him his liver function tests have been elevated. This has been attributed to alcohol use in the past. He denies any history of viral hepatitis. He does not use IV drugs or have sexual contact with persons at risk for chronic hepatitis. He does have a family history of alcoholic liver disease in his mother. He has no complaints of jaundice, pruritus, or significant fatigue. PAST MEDICAL HISTORY: 1. Anxiety. 2. Alcohol abuse. 3. Hypertension. CURRENT MEDICATIONS: His current medication list is reviewed in the chart. ALLERGIES: THERE ARE NONE REPORTED. FAMILY HISTORY: As above. SOCIAL HISTORY: He denies tobacco use. Alcohol use is as above. REVIEW OF SYSTEMS: SKIN: No pruritus. HEENT: Negative. CARDIOPULMONARY: No shortness of breath or chest pain. GASTROINTESTINAL: As above. He denies use of Tylenol. GENITOURINARY: Negative. NEUROPSYCHIATRIC: Negative. PHYSICAL EXAMINATION: GENERAL: Shows a pleasant male, in no acute distress. VITAL SIGNS: Reviewed in electronic medical record and are stable. SKIN: Anicteric. HEENT: Shows no scleral icterus. NECK: Without lymphadenopathy or thyromegaly. LUNGS: Clear. HEART: Regular rate and rhythm. S1, S2. No murmur. ABDOMEN: Soft without focal masses or tenderness. Bowel sounds are present. No organomegaly is noted. EXTREMITIES: Without edema. LABORATORY DATA: Reviewed. Hepatitis testing shows no evidence of acute hepatitis A, B, or C. IMPRESSION: Elevated liver function tests. The etiology for his liver function test elevations is likely multifactorial. He has been using alcohol pattern of elevation is not typical for alcohol. There may be a component of underlying fatty liver and its possible medications could be contributing. He had been on Vivitrol, which can cause transaminase elevations, this has been held. There is no evidence for acute or chronic viral hepatitis. I would recommend obtaining iron studies and autoimmune markers. These have been ordered, and I recommend monitoring his liver function tests. If the liver function tests worsen, biopsy could be considered, but I do not think this is necessary at this time. Thanks for asking me to see him. I will follow him in the hospital with you. MD CARLA Gavin/MARILY / [id number]
[2021-01-04] MEDS: traZODone HCL 50 MG TABLET PO (20:56)
[2021-01-04] MEDS: LORazepam 1 MG TABLET 0.5 MG PO (20:56)
[2021-01-04 20:57] VITALS: BP 158/97; PULSE 74
[2021-01-04] MEDS: Mirtazapine 7.5 MG TABLET PO (20:57)
[2021-01-05 06:00] VITALS: BP 136/83; PULSE 50; RESP 18; TEMP 35.4; O2SAT 100
[2021-01-05 08:08] VITALS: BP 136/91; PULSE 65
[2021-01-05] MEDS: Omeprazole 20 MG CAPSULE.DR PO ×2 (08:08→16:43)
[2021-01-05] MEDS: cloNIDine HCL 0.1 MG TABLET PO ×2 (08:08→20:52)
[2021-01-05] MEDS: FLUoxetine HCl 10 MG CAPSULE 30 MG PO (08:08)
[2021-01-05] MEDS: amLODIPine Besylate 5 MG TABLET PO ×2 (08:08→20:52)
[2021-01-05 08:48] LABS: Iron 131 mcg/dL (45-160); Percent Iron Saturation 31 % (15-50); Total Iron Binding Capacity 426 mcg/dL (228-428); Unsaturated Iron Binding 295 ug/dL
[2021-01-05 12:24] VITALS: BP 135/84; PULSE 61
[2021-01-05 18:00] VITALS: BP 160/92; PULSE 76; TEMP 36.9
--- NOTE | 2021-01-05 18:00 | P.PNPSI_ITS ---
Subjective Subjective Date of Service: 01/05/21 Reason For Visit: ALCOHOL USE DISORDER, SI, DEPRESSION Subjective Notes: Conditional Voluntary Healthcare Proxy: No Guardianship: No Medical Problems Affecting Mental Status: No Interim History: Patient seen and discussed with team. Patient evaluated this morning and upon interview he reports his mood has been good all day. He denies stressors. Med adherent and tolerating meds well, denies SE. Attending group. Appetite is good. Says he is sleeping very well. He was seen by Dr. Tyler for consult due to elevated LFTs on 01/04, AST 313, ALT 530. Vivitrol is still being held due to potential for tranaminase elevation. No evidence of acute or viral hepatitis. Ultrasound showed underlying fatty liver disease. Dr. Tyler ordered iron studies, which were wnl, and autoimmune markers are pending. He will follow up as needed. Will continue to monitor LFTs over the course of hospitalization. In the milieu, patient is safe and appropriate in behavior. Denies SI/SIB/HI upon inquiry. Denies irritability or assaultive ideation. Says he feels safe. Medication Compliance: Yes Side effects from medications: No Attending Groups: Yes Review of Systems See above Medical Review of Systems: unchanged Mental Status Exam Mental Status Exam Narrative: Well groomed, good hygiene, normal body habitus. Good eye contact, attentive. No Tics or Tremors. No abnormal involuntary movements. Calm, coopera tive, engaged. Non-pressured speech, spontaneous with regular rate and rhythm, normal volume and prosody. No prolonged speech latency or dysarthria. Mood is ?good,? affect is euthymic. Denies SI/SIB/HI upon inquiry. Denies A/VH or delusional thought content. Thoughts are coherent, organized. No known cognitive or memory impairment. Insight/ Judgment fair and adequate. Diagnostics Vital Signs (24Hr): Vital Signs - 24 hr 01/04/21 20:57 01/05/21 06:00 01/05/21 08:08 Temperature 95.8 F L Pulse Rate 74 50 65 Respiratory Rate 18 Blood Pressure 158/97 H 136/83 136/91 H Pulse Oximetry 100 01/05/21 12:24 Temperature Pulse Rate 61 Respiratory Rate Blood Pressure 135/84 Pulse Oximetry Body Mass Index 25.2 Labs Results: 01/03/21 07:55 01/03/21 07:55 Labs: Laboratory Results - last 48 hr 01/03/21 01/03/21 01/04/21 07:55 07:55 08:00 Iron TIBC % Saturation Unsat Iron Binding Total Bilirubin 0.4 Direct Bilirubin 0.2 AST 313 H ALT 530 H Alkaline Phosphatase 50 Total Protein 7.6 Albumin 4.7 Lyme Screen IgG & IgM <0.90 Hepatitis A IgM Ab Nonreactive 01/05/21 07:52 Iron 131 TIBC 426 % Saturation 31 Unsat Iron Binding 295 Total Bilirubin Direct Bilirubin AST ALT Alkaline Phosphatase Total Protein Albumin Lyme Screen IgG & IgM Hepatitis A IgM Ab Imaging Radiology Impressions: ITS Impressions Abdomen Ultrasound 01/04/21 08:15 IMPRESSION: Echogenic liver probably representing fatty infiltration. Medications Medications Current Medications Generic Name Dose Route Start Last Admin Trade Name Freq PRN Reason Stop Dose Admin Acetaminophen 650 mg 01/01/21 16:35 Acetaminophen 325 Mg Tablet PO Q6H PRN Headache/Pain Mild Scale (1-3) Al Hydroxide/Mg Hydroxide 30 ml 01/01/21 16:35 Magnesium Hydrox/Alum Hydrox 30 Ml Oral.Susp PO Q6H PRN Heartburn/Nausea Amlodipine Besylate 5 mg 01/01/21 09:00 01/05/21 08:08 Amlodipine Besylate 5 Mg Tablet PO 5 mg BID VANESSA Administration Protocol Clonidine HCl 0.1 mg 01/01/21 09:00 01/05/21 08:08 Clonidine Hcl 0.1 Mg Tablet PO 0.1 mg BID VANESSA Administration Protocol Fluoxetine HCl 30 mg 01/03/21 09:00 01/05/21 08:08 Fluoxetine Hcl 10 Mg Capsule PO 30 mg DAILY VANESSA Administration Hydroxyzine HCl 25 mg 01/01/21 16:35 01/02/21 21:33 Hydroxyzine Hcl 25 Mg Tablet PO 25 mg Q6H PRN Administration Anxiety Magnesium Hydroxide 30 ml 01/01/21 16:35 Milk Of Magnesia 30 Ml Oral.Susp PO DAILY PRN Constipation Mirtazapine 7.5 mg 01/03/21 21:00 01/04/21 20:57 Mirtazapine 7.5 Mg Tablet PO 7.5 mg BEDTIME VANESSA Administration Multivitamins/Minerals 1 tab 01/03/21 09:00 01/05/21 08:08 Multivitamin With Minerals Tablet PO 1 tab DAILY VANESSA Administration Omeprazole 20 mg 01/04/21 16:30 01/05/21 16:43 Omeprazole 20 Mg Capsule. PO 20 mg BID@0661,3050 VANESSA Administration Trazodone HCl 50 mg 01/01/21 16:35 01/04/21 20:56 Trazodone Hcl 50 Mg Tablet PO 50 mg BEDTIME PRN Administration Insomnia Allergies Allergies Allergy/AdvReac Type Severity Reaction Status Date / Time No Known Allergies Allergy Unknown UNKNOWN Verified 11/29/20 10:25 [NO KNOWN ALLERGIES] Assessment & Plan Assessment & Plan (1) Recurrent major depression-severe: Status: Acute Code(s): F33.2 - Major depressive disorder, recurrent severe without psychotic features Assessment and Plan: Continue Prozac and Mirtazapine. (2) Alcohol use disorder, severe, in early remission: Status: Acute Code(s): F10.21 - Alcohol dependence, in remission Assessment and Plan: Per consult, Vivitrol injection will be held, reviewed hepatic ultrasound result, will f/u with Dr. Tyler for elevated LFTs and continue to monitor levels. Assessment and Plan: Pt admitted to [facility] for management of anxiety and depression. We are consulted for hypertension. # hypertension - controlled - initially on admission patient's blood pressure was elevated most likely secondary to alcohol abuse and mild withdrawal - patient blood pressure has been elevated 01/04 and 01/05, will consider increasing clonidine, however has hx of bradycardia, will continue to monitor - on clonidine and amlodipine at home # elevated LFTs - ALT higher than AST - Reviewed abdominal ultrasound as well as hepatitis panel - follow LFTs - GI consult appreciated and reviewed, autoimmune markers pending # bradycardia - patient reports bradycardia overnight with heart rate in the high 40s this a.m. - vitals reviewed heart rate in the high 50s - patient asymptomatic - most likely secondary to clonidine - reviewed EKG ordered 12/31 and 01/03 - continue vital signs per unit policy - emphasized for patient that if he becomes dizzy, lightheaded, any change in vision to inform staff # depression and anxiety - management per psych Greater than 50% of the session was spent on counseling and/or coordination of care Reason for contiued inpatient stay Substantial Risk for: harm to self
[2021-01-05 20:52] VITALS: BP 155/90; PULSE 80
[2021-01-05] MEDS: Mirtazapine 7.5 MG TABLET PO (20:52)
[2021-01-05] MEDS: traZODone HCL 50 MG TABLET PO (20:53)
[2021-01-06 06:00] VITALS: BP 121/74; PULSE 53; RESP 18; TEMP 35.6
[2021-01-06 09:14] VITALS: BP 129/60; PULSE 74
[2021-01-06] MEDS: Omeprazole 20 MG CAPSULE.DR PO ×2 (09:14→16:43)
[2021-01-06] MEDS: FLUoxetine HCl 10 MG CAPSULE 30 MG PO (09:14)
[2021-01-06] MEDS: cloNIDine HCL 0.1 MG TABLET PO (09:14)
[2021-01-06] MEDS: amLODIPine Besylate 5 MG TABLET PO ×2 (09:15→20:46)
--- NOTE | 2021-01-06 14:20 | HO.PSYCHPN ---
Subjective Subjective Date of Service: 01/07/21 Reason For Visit: ALCOHOL USE DISORDER, SI, DEPRESSION Subjective Notes: Conditional Voluntary Medical Problems Affecting Mental Status: No Interim History: Patient seen and discussed with team. Patient evaluated this morning and upon interview he reports his mood has been good, great. Denies anxiety. Denies urges to drink. No questions or concerns today. He was seen by Dr. Tyler for consult due to elevated LFTs on 01/04, AST 313, ALT 530, will re-check on 01/07 AM. Vivitrol is still being held due to potential for tranaminase elevation. No evidence of acute or viral hepatitis. Ultrasound showed underlying fatty liver disease. Dr. Tyler ordered iron studies, which were wnl, and autoimmune markers are pending. He will follow up as needed. Will continue to monitor LFTs over the course of hospitalization. Per RN reports, BP has been elevated the past two nights. Discussed trialing an increase in clonidine at bedtime. Vitals have been wnl. In the milieu, patient is safe and appropriate in behavior. Denies SI/SIB/HI upon inquiry. Denies irritability or assaultive ideation. Says he feels safe. Attending Groups: Yes Mental Status Exam Mental Status Exam Narrative: Well groomed, good hygiene, normal body habitus. Good eye contact, attentive. No Tics or Tremors. No abnormal involuntary movements. Calm, cooperative, engaged. Non-pressured speech, spontaneous with regular rate and rhythm, normal volume and prosody. No prolonged speech latency or dysarthria. Mood is ?good,? affect is euthymic. Denies SI/SIB/HI upon inquiry. Denies A/VH or delusional thought content. Thoughts are coherent, organized. No known cognitive or memory impairment. Insight/ Judgment fair and adequate. Diagnostics Vital Signs (24Hr): Vital Signs - 24 hr 01/05/21 18:00 01/05/21 20:52 01/06/21 06:00 Temperature 98.4 F 96.0 F L Pulse Rate 76 80 53 Respiratory Rate 18 Blood Pressure 160/92 H 155/90 H 121/74 01/06/21 09:14 Temperature Pulse Rate 74 Respiratory Rate Blood Pressure 129/60 Body Mass Index 25.2 Labs Results: 01/03/21 07:55 01/03/21 07:55 Labs: Laboratory Results - last 48 hr 01/03/21 01/05/21 07:55 07:52 Iron 131 TIBC 426 % Saturation 31 Unsat Iron Binding 295 Lyme Screen IgG & IgM <0.90 Imaging Radiology Impressions: ITS Impressions Abdomen Ultrasound 01/04/21 08:15 IMPRESSION: Echogenic liver probably representing fatty infiltration. Medications Medications Current Medications Generic Name Dose Route Start Last Admin Trade Name Davey PRN Reason Stop Dose Admin Acetaminophen 650 mg 01/01/21 16:35 Acetaminophen 325 Mg Tablet PO Q6H PRN Headache/Pain Mild Scale (1-3) Al Hydroxide/Mg Hydroxide 30 ml 01/01/21 16:35 Magnesium Hydrox/Alum Hydrox 30 Ml Oral.Susp PO Q6H PRN Heartburn/Nausea Amlodipine Besylate 5 mg 01/01/21 09:00 01/06/21 09:15 Amlodipine Besylate 5 Mg Tablet PO 5 mg BID VANESSA Administration Protocol Clonidine HCl 0.1 mg 01/01/21 09:00 01/06/21 09:14 Clonidine Hcl 0.1 Mg Tablet PO 0.1 mg BID VANESSA Administration Protocol Fluoxetine HCl 30 mg 01/03/21 09:00 01/06/21 09:14 Fluoxetine Hcl 10 Mg Capsule PO 30 mg DAILY VANESSA Administration Hydroxyzine HCl 25 mg 01/01/21 16:35 01/02/21 21:33 Hydroxyzine Hcl 25 Mg Tablet PO 25 mg Q6H PRN Administration Anxiety Magnesium Hydroxide 30 ml 01/01/21 16:35 Milk Of Magnesia 30 Ml Oral.Susp PO DAILY PRN Constipation Mirtazapine 7.5 mg 01/03/21 21:00 01/05/21 20:52 Mirtazapine 7.5 Mg Tablet PO 7.5 mg BEDTIME VANESSA Administration Multivitamins/Minerals 1 tab 01/03/21 09:00 01/06/21 09:14 Multivitamin With Minerals Tablet PO 1 tab DAILY VANESSA Administration Omeprazole 20 mg 01/04/21 16:30 01/06/21 09:14 Omeprazole 20 Mg Capsule. PO 20 mg BID@0630,4830 VANESSA Administration Trazodone HCl 50 mg 01/01/21 16:35 01/05/21 20:53 Trazodone Hcl 50 Mg Tablet PO 50 mg BEDTIME PRN Administration Insomnia Allergies Allergies Allergy/AdvReac Type Severity Reaction Status Date / Time No Known Allergies Allergy Unknown UNKNOWN Verified 11/29/20 10:25 [NO KNOWN ALLERGIES] Assessment & Plan Assessment & Plan (1) Recurrent major depression-severe: Status: Acute Code(s): F33.2 - Major depressive disorder, recurrent severe without psychotic features Assessment and Plan: Continue Prozac and Mirtazapine. (2) Alcohol use disorder, severe, in early remission: Status: Acute Code(s): F10.21 - Alcohol dependence, in remission Assessment and Plan: Per consult, Vivitrol injection will be held, reviewed hepatic ultrasound result, will f/u with Dr. Tyler for elevated LFTs and continue to monitor levels. Assessment and Plan: Pt admitted to [facility] for management of anxiety and depression. We are consulted for hypertension. # hypertension - controlled - initially on admission patient's blood pressure was elevated most likely secondary to alcohol abuse and mild withdrawal - patient blood pressure has been elevated 01/04 and 01/05, will consider increasing clonidine, however has hx of bradycardia, will continue to monitor - on clonidine and amlodipine at home -Will increase clonidine to 0.2 mg QHS # elevated LFTs - ALT higher than AST - Reviewed abdominal ultrasound as well as hepatitis panel - follow LFTs - GI consult appreciated and reviewed, autoimmune markers pending # bradycardia - patient reports bradycardia overnight with heart rate in the high 40s this a.m. - vitals reviewed heart rate in the high 50s - patient asymptomatic - most likely secondary to clonidine - reviewed EKG ordered 12/31 and 01/03 - continue vital signs per unit policy - emphasized for patient that if he becomes dizzy, lightheaded, any change in vision to inform staff # depression and anxiety - management per psych Greater than 50% of the session was spent on counseling and/or coordination of care Reason for contiued inpatient stay Substantial Risk for: rapid decompensation and med/psych decompensation
[2021-01-06 19:08] VITALS: BP 139/82; PULSE 86; TEMP 36.4
[2021-01-06 20:44] VITALS: BP 134/79; PULSE 72
[2021-01-06] MEDS: cloNIDine HCL 0.2 MG TABLET PO (20:44)
[2021-01-06 20:46] VITALS: BP 134/79; PULSE 72
[2021-01-06] MEDS: traZODone HCL 50 MG TABLET PO (20:46)
[2021-01-06] MEDS: Mirtazapine 7.5 MG TABLET PO (20:46)
[2021-01-07 06:30] VITALS: BP 125/76; PULSE 56; TEMP 36.2
[2021-01-07 08:47] VITALS: BP 132/80; PULSE 69
[2021-01-07] MEDS: amLODIPine Besylate 5 MG TABLET PO (08:47)
[2021-01-07 08:48] VITALS: BP 132/80; PULSE 69
[2021-01-07] MEDS: FLUoxetine HCl 10 MG CAPSULE 30 MG PO (08:48)
[2021-01-07] MEDS: cloNIDine HCL 0.1 MG TABLET PO (08:48)
[2021-01-07] MEDS: Omeprazole 20 MG CAPSULE.DR PO (08:48)
[2021-01-07 10:22] LABS: Alanine Aminotransferase 473 U/L (0-40); Albumin Level 4.7 g/dL (3.5-5.0); Alkaline Phosphatase 47 U/L (39-117); Aspartate Amino Transferase 200 U/L (5-37); Bilirubin Direct 0.2 mg/dL (0.0-0.5); Bilirubin Total 0.2 mg/dL (0.0-1.0); Total Protein 7.4 g/dL (6.5-8.0)
[2021-01-07 15:11] LABS: Anti Nuclear Antibody Screen NEGATIVE (NEGATIVE)
--- NOTE | 2021-01-07 17:26 | PM.PSYDC ---
DS: Providers Provider Date of Service: 01/07/21 Date of admission: 01/01/21 15:09 Date of discharge: 01/07/21 Primary care physician: Cristóbal Abraham MD Admitting clinician: Sarah Stallings Attending physician on admission: Wojciech Juan Consults: 01/01/21 16:35 Consult to Hospitalist Routine Consulting Provider: Hospitalist Reason For Exam: HTN 01/03/21 11:35 Addiction Medicine Stat Consulting Provider: Nina Gomez Reason for consultation: pt on vivtrol Has provider been notified: No 01/04/21 08:08 Consult to Gastroenterology Routine Consulting Provider: Iam Tyler Reason for consultation: elevated lfts, worsening Attending physician on discharge: Wojciech Juan Discharging clinician: Sarah Stallings DS: Diagnosis Discharge Diagnosis (1) Recurrent major depression-severe: Status: Acute (2) Alcohol use disorder, severe, in early remission: Status: Acute DS: Medications Discharge Medications Home Medications: Previous Rx's Medication Instructions Recorded acamprosate 333 mg tablet,delayed 666 mg PO TID #180 tab 01/07/21 release acamprosate 333 mg tablet,delayed 666 mg PO TID #180 tab 01/07/21 release amlodipine 5 mg tablet 1 tab PO BID #60 tab 01/07/21 amlodipine 5 mg tablet 5 mg PO BID #0 tab 01/07/21 clonidine HCl 0.1 mg tablet 0.1 mg PO DAILY #30 tab 01/07/21 clonidine HCl 0.1 mg tablet 0.1 mg PO DAILY #30 tab 01/07/21 clonidine HCl 0.2 mg tablet 0.2 mg PO BEDTIME #30 tab 01/07/21 clonidine HCl 0.2 mg tablet 0.2 mg PO BEDTIME #30 tab 01/07/21 fluoxetine 10 mg capsule 30 mg PO DAILY #90 cap 01/07/21 fluoxetine 10 mg capsule (Prozac) 30 mg PO DAILY #90 cap 01/07/21 mirtazapine 7.5 mg tablet 7.5 mg PO BEDTIME #30 tab 01/07/21 mirtazapine 7.5 mg tablet 7.5 mg PO BEDTIME #30 tab 01/07/21 multivitamin with minerals 1 tab PO DAILY #30 tab 01/07/21 multivitamin with minerals 1 tab PO DAILY #30 tab 01/07/21 omeprazole 20 mg capsule,delayed 20 mg PO BID@0645,0570 #60 cap 01/07/21 release omeprazole 20 mg tablet,delayed 20 mg PO BID #60 tab 01/07/21 release trazodone 50 mg tablet 50 mg PO BEDTIME PRN #30 tab 01/07/21 Mental Status Exam Mental Status Exam Patient Appearance: Appropriate Patient Orientation: Person, Place, Time and Situation Level of Consciousness: Alert Patient Behavior: Talkative Mood Description: Calm and Appropriate Affect Description: Calm and Appropriate Patient Cognition Impaired: No Ability to Follow Directions: Good Speech Pattern: Spontaneous Speech Memory Description: Intact Hallucinations: None Delusions: Not Present Thought Process: Intact Thought Content: positive for Intact and positive for Circumstantial Judgement: Good Data Data Completed and Pending Completed studies during hospitalization [Text1]: 12/31/20 12/31/20 12/31/20 17:21 17:40 17:40 WBC RBC Hgb Hct MCV MCH MCHC RDW Plt Count MPV Immature Gran % (Auto) Neut % (Auto) Lymph % (Auto) Wilkinson % (Auto) Eos % (Auto) Baso % (Auto) Lymph # (Auto) Wilkinson # (Auto) Eos # (Auto) Baso # (Auto) Abs Immat Gran (auto) Absolute Neuts (auto) Absolute Nucleated RBC Nucleated RBC % (auto) Sodium Potassium Chloride Carbon Dioxide Anion Gap BUN Creatinine Estim Creat Clear Calc Estimated GFR Random Glucose Fasting Glucose Estimat Average Glucose Hemoglobin A1c % Calcium Iron TIBC % Saturation Unsat Iron Binding Total Bilirubin Direct Bilirubin AST ALT Alkaline Phosphatase Total Protein Albumin Triglycerides Cholesterol LDL Cholesterol, Calc HDL Cholesterol Mitochondrial AB Titer Vitamin B12 25-OH Vitamin D Total Folate TSH Free T4 Urine Color YELLOW Urine Appearance CLEAR Urine pH 6.0 Ur Specific [place] 1.020 Urine Protein 2+ H Urine Glucose (UA) NEG Urine Ketones >=80 Urine Blood NEG Urine Nitrite NEG Ur Leukocyte Esterase NEG Urine RBC 0-2 Urine WBC 0 Ur Squamous Epith Cells NONE Urine Bacteria TRACE Urine Opiates Screen Not Detected Ur Barbiturates Screen Not Detected Ur Phencyclidine Scrn Not Detected Ur Amphetamines Screen Not Detected U Benzodiazepines Scrn Not Detected Urine Cocaine Screen Not Detected U Marijuana (THC) Screen Not Detected Ethyl Alcohol DORINDA Screen DORINDA Titer DORINDA Titer 2 DORINDA Titer 3 DORINDA Pattern DORINDA Pattern 2 DORINDA Pattern 3 Anti-Mitochondrial Ab Anti-Smooth Muscle Ab Lyme Screen IgG & IgM Lyme Progressive Test COVID-19 ([facility]) Negative COVID-19 Clin Com See Note Hepatitis A IgM Ab Hep Bs Antigen Hep Bs Antibody Hep B Core Total Ab Hepatitis C Ab (EIA) 12/31/20 12/31/20 12/31/20 19:20 19:21 19:21 WBC 4.6 L RBC 4.35 L Hgb 13.7 L Hct 38.2 L MCV 87.8 MCH 31.5 MCHC 35.9 RDW 11.6 Plt Count 158 L MPV 9.5 Immature Gran % (Auto) 0.2 Neut % (Auto) 75.3 H Lymph % (Auto) 12.7 L Wilkinson % (Auto) 11.4 H Eos % (Auto) 0.0 Baso % (Auto) 0.4 Lymph # (Auto) 0.6 L Wilkinson # (Auto) 0.5 Eos # (Auto) 0.0 Baso # (Auto) 0.0 Abs Immat Gran (auto) 0.01 Absolute Neuts (auto) 3.5 Absolute Nucleated RBC 0.000 Nucleated RBC % (auto) 0.0 Sodium 134 L Potassium 3.1 L Chloride 97 Carbon Dioxide 24 Anion Gap 16 BUN 11 Creatinine 0.88 Estim Creat Clear Calc 113.3 Estimated GFR > 60 Random Glucose 155 H Fasting Glucose Estimat Average Glucose Hemoglobin A1c % Calcium 9.8 Iron TIBC % Saturation Unsat Iron Binding Total Bilirubin 0.6 Direct Bilirubin 0.3 AST 87 H ALT 230 H Alkaline Phosphatase 54 Total Protein 7.9 Albumin 4.9 Triglycerides Cholesterol LDL Cholesterol, Calc HDL Cholesterol Mitochondrial AB Titer Vitamin B12 25-OH Vitamin D Total Folate TSH Free T4 Urine Color Urine Appearance Urine pH Ur Specific [place] Urine Protein Urine Glucose (UA) Urine Ketones Urine Blood Urine Nitrite Ur Leukocyte Esterase Urine RBC Urine WBC Ur Squamous Epith Cells Urine Bacteria Urine Opiates Screen Ur Barbiturates Screen Ur Phencyclidine Scrn Ur Amphetamines Screen U Benzodiazepines Scrn Urine Cocaine Screen U Marijuana (THC) Screen Ethyl Alcohol < 10 DORINDA Screen DORINDA Titer DORINDA Titer 2 DORINDA Titer 3 DORINDA Pattern DORINDA Pattern 2 DORINDA Pattern 3 Anti-Mitochondrial Ab Anti-Smooth Muscle Ab Lyme Screen IgG & IgM Lyme Progressive Test COVID-19 ([facility]) COVID-19 Clin Com Hepatitis A IgM Ab Hep Bs Antigen Hep Bs Antibody Hep B Core Total Ab Hepatitis C Ab (EIA) 01/03/21 01/03/21 01/03/21 07:55 07:55 07:55 WBC RBC Hgb Hct MCV MCH MCHC RDW Plt Count MPV Immature Gran % (Auto) Neut % (Auto) Lymph % (Auto) Wilkinson % (Auto) Eos % (Auto) Baso % (Auto) Lymph # (Auto) Wilkinson # (Auto) Eos # (Auto) Baso # (Auto) Abs Immat Gran (auto) Absolute Neuts (auto) Absolute Nucleated RBC Nucleated RBC % (auto) Sodium 140 Potassium 4.3 D Chloride 105 Carbon Dioxide 27 Anion Gap 12 BUN 11 Creatinine 0.87 Estim Creat Clear Calc 114.6 Estimated GFR > 60 Random Glucose Fasting Glucose 113 H Estimat Average Glucose Hemoglobin A1c % Calcium 9.9 Iron TIBC % Saturation Unsat Iron Binding Total Bilirubin 0.6 Direct Bilirubin 0.3 AST 349 H ALT 492 H Alkaline Phosphatase 52 Total Protein 7.5 Albumin 4.7 Triglycerides 110 Cholesterol 242 LDL Cholesterol, Calc 158 HDL Cholesterol 62 Mitochondrial AB Titer Vitamin B12 886 25-OH Vitamin D Total 26.4 Folate 15.7 TSH 0.99 Free T4 0.87 Urine Color Urine Appearance Urine pH Ur Specific [place] Urine Protein Urine Glucose (UA) Urine Ketones Urine Blood Urine Nitrite Ur Leukocyte Esterase Urine RBC Urine WBC Ur Squamous Epith Cells Urine Bacteria Urine Opiates Screen Ur Barbiturates Screen Ur Phencyclidine Scrn Ur Amphetamines Screen U Benzodiazepines Scrn Urine Cocaine Screen U Marijuana (THC) Screen Ethyl Alcohol DORINDA Screen DORINDA Titer DORINDA Titer 2 DORINDA Titer 3 DORINDA Pattern DORINDA Pattern 2 DORINDA Pattern 3 Anti-Mitochondrial Ab Anti-Smooth Muscle Ab Lyme Screen IgG & IgM <0.90 Lyme Progressive Test TNP COVID-19 ([facility]) COVID-19 Clin Com Hepatitis A IgM Ab Hep Bs Antigen Hep Bs Antibody Hep B Core Total Ab Hepatitis C Ab (EIA) 01/03/21 01/03/21 01/03/21 07:55 07:55 07:55 WBC 4.3 L RBC 4.79 Hgb 14.9 Hct 43.3 MCV 90.4 MCH 31.1 MCHC 34.4 RDW 11.7 Plt Count 160 MPV 10.0 Immature Gran % (Auto) 0.2 Neut % (Auto) 49.9 Lymph % (Auto) 32.2 Wilkinson % (Auto) 14.8 H Eos % (Auto) 2.4 Baso % (Auto) 0.5 Lymph # (Auto) 1.4 Wilkinson # (Auto) 0.6 Eos # (Auto) 0.1 Baso # (Auto) 0.0 Abs Immat Gran (auto) 0.01 Absolute Neuts (auto) 2.1 Absolute Nucleated RBC 0.000 Nucleated RBC % (auto) 0.0 Sodium Potassium Chloride Carbon Dioxide Anion Gap BUN Creatinine Estim Creat Clear Calc Estimated GFR Random Glucose Fasting Glucose Estimat Average Glucose 103 Hemoglobin A1c % 5.2 Calcium Iron TIBC % Saturation Unsat Iron Binding Total Bilirubin Direct Bilirubin AST ALT Alkaline Phosphatase Total Protein Albumin Triglycerides Cholesterol LDL Cholesterol, Calc HDL Cholesterol Mitochondrial AB Titer Vitamin B12 25-OH Vitamin D Total Folate TSH Free T4 Urine Color Urine Appearance Urine pH Ur Specific [place] Urine Protein Urine Glucose (UA) Urine Ketones Urine Blood Urine Nitrite Ur Leukocyte Esterase Urine RBC Urine WBC Ur Squamous Epith Cells Urine Bacteria Urine Opiates Screen Ur Barbiturates Screen Ur Phencyclidine Scrn Ur Amphetamines Screen U Benzodiazepines Scrn Urine Cocaine Screen U Marijuana (THC) Screen Ethyl Alcohol DORINDA Screen DORINDA Titer DORINDA Titer 2 DORINDA Titer 3 DORINDA Pattern DORINDA Pattern 2 DORINDA Pattern 3 Anti-Mitochondrial Ab Anti-Smooth Muscle Ab Lyme Screen IgG & IgM Lyme Progressive Test COVID-19 ([facility]) COVID-19 Clin Com Hepatitis A IgM Ab Nonreactive Hep Bs Antigen Negative Hep Bs Antibody NONREACTIVE Hep B Core Total Ab Nonreactive Hepatitis C Ab (EIA) Nonreactive 01/04/21 01/05/21 01/05/21 08:00 07:52 07:52 WBC RBC Hgb Hct MCV MCH MCHC RDW Plt Count MPV Immature Gran % (Auto) Neut % (Auto) Lymph % (Auto) Wilkinson % (Auto) Eos % (Auto) Baso % (Auto) Lymph # (Auto) [place]kinson # (Auto) Eos # (Auto) Baso # (Auto) Abs Immat Gran (auto) Absolute Neuts (auto) Absolute Nucleated RBC Nucleated RBC % (auto) Sodium Potassium Chloride Carbon Dioxide Anion Gap BUN Creatinine Estim Creat Clear Calc Estimated GFR Random Glucose Fasting Glucose Estimat Average Glucose Hemoglobin A1c % Calcium Iron 131 TIBC 426 % Saturation 31 Unsat Iron Binding 295 Total Bilirubin 0.4 Direct Bilirubin 0.2 AST 313 H ALT 530 H Alkaline Phosphatase 50 Total Protein 7.6 Albumin 4.7 Triglycerides Cholesterol LDL Cholesterol, Calc HDL Cholesterol Mitochondrial AB Titer Vitamin B12 25-OH Vitamin D Total Folate TSH Free T4 Urine Color Urine Appearance Urine pH Ur Specific [place] Urine Protein Urine Glucose (UA) Urine Ketones Urine Blood Urine Nitrite Ur Leukocyte Esterase Urine RBC Urine WBC Ur Squamous Epith Cells Urine Bacteria Urine Opiates Screen Ur Barbiturates Screen Ur Phencyclidine Scrn Ur Amphetamines Screen U Benzodiazepines Scrn Urine Cocaine Screen U Marijuana (THC) Screen Ethyl Alcohol DORINDA Screen NEGATIVE DORINDA Titer Pending DORINDA Titer 2 Pending DORINDA Titer 3 Pending DORINDA Pattern Pending DORINDA Pattern 2 Pending DORINDA Pattern 3 Pending Anti-Mitochondrial Ab Anti-Smooth Muscle Ab Lyme Screen IgG & IgM Lyme Progressive Test COVID-19 ([facility]) COVID-19 Clin Com Hepatitis A IgM Ab Hep Bs Antigen Hep Bs Antibody Hep B Core Total Ab Hepatitis C Ab (EIA) 01/05/21 01/07/21 07:52 07:50 WBC RBC Hgb Hct MCV MCH MCHC RDW Plt Count MPV Immature Gran % (Auto) Neut % (Auto) Lymph % (Auto) Wilkinson % (Auto) Eos % (Auto) Baso % (Auto) Lymph # (Auto) Wilkinson # (Auto) Eos # (Auto) Baso # (Auto) Abs Immat Gran (auto) Absolute Neuts (auto) Absolute Nucleated RBC Nucleated RBC % (auto) Sodium Potassium Chloride Carbon Dioxide Anion Gap BUN Creatinine Estim Creat Clear Calc Estimated GFR Random Glucose Fasting Glucose Estimat Average Glucose Hemoglobin A1c % Calcium Iron TIBC % Saturation Unsat Iron Binding Total Bilirubin 0.2 Direct Bilirubin 0.2 AST 200 H ALT 473 H Alkaline Phosphatase 47 Total Protein 7.4 Albumin 4.7 Triglycerides Cholesterol LDL Cholesterol, Calc HDL Cholesterol Mitochondrial AB Titer Pending Vitamin B12 25-OH Vitamin D Total Folate TSH Free T4 Urine Color Urine Appearance Urine pH Ur Specific [place] Urine Protein Urine Glucose (UA) Urine Ketones Urine Blood Urine Nitrite Ur Leukocyte Esterase Urine RBC Urine WBC Ur Squamous Epith Cells Urine Bacteria Urine Opiates Screen Ur Barbiturates Screen Ur Phencyclidine Scrn Ur Amphetamines Screen U Benzodiazepines Scrn Urine Cocaine Screen U Marijuana (THC) Screen Ethyl Alcohol DORINDA Screen DORINDA Titer DORINDA Titer 2 DORINDA Titer 3 DORINDA Pattern DORINDA Pattern 2 DORINDA Pattern 3 Anti-Mitochondrial Ab Pending Anti-Smooth Muscle Ab Pending Lyme Screen IgG & IgM Lyme Progressive Test COVID-19 ([facility]) COVID-19 Clin Com Hepatitis A IgM Ab Hep Bs Antigen Hep Bs Antibody Hep B Core Total Ab Hepatitis C Ab (EIA) Imaging Diagnostic Imaging Impressions Abdomen Ultrasound 01/04/21 08:15 IMPRESSION: Echogenic liver probably representing fatty infiltration. DS: Summary Hospital Course Hospital Course: Pt is a 35 yo male reporting an increase in anxiety, depression with SI and attempting to manage symptoms with an increase in alcohol consumption for the past twelve weeks approximately. 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 Pt reports anxiety, feelings of uneasiness and concentration have not been able to be managed and he is hoping for increases in out patient support options as part of his discharge plan.Pt was admitted on a conditional voluntary status. Prozac was titrataed to 30 mg daily. Remeron was added for sleep-initially 15 mg then decreased to 7.5 mg. Pt was found to have elevations in liver function tests and was seen by gastroenterology for consultation. Vivitrol/Naltrexone were held and Campral was initiated upon discharge in consultation with Nina Gomez NP of [facility]. Pt worked with nursing and social service teams, in milieu groups and individually on symptoms, coping skills and adding out patient supports to his plan of care. 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 He will continue with [facility] and initiate out patient psychotherapy and psychopharmacology. Time spent discussing smoking cessation with patient: 3 to 10 minutes Status at Discharge Cognitive/behavioral status at discharge: Alert, non-suicidal, non-psychotic, postive, looking forward to working with providers and returning to his work. Functional status at discharge: independent ambulation Overall status at discharge: patient is not back to baseline Time Spent with Patient Time attestation: Total time spent providing and/or coordinating discharge services: 35 Time spent: Greater than 30 minutes Discharge Plan Discharge Anticipated Discharge Date/Time: 01/07/21 15:00 Patient Disposition: Home, Self-Care Discharge Diagnosis: Severe Recurrent Major Depression Alcohol Use Disorder, Severe Elevation of Liver Function Tests Referrals: Mey Ribeiro [Other] - 01/11/21 4:00 pm (Initial Intake with Outpatient Therapist (in-person)) Rayne Bustamante [Other] - 02/07/21 1:40 pm (Psychiatric Evaluation (Tele-Health)) Rayne Bustamante [Other] - 03/05/21 9:20 am (Medication Management (Tele-Health)) [facility] [Other] - 01/09/21 2:00 pm (MAT (Vivitrol) Appointment ) Cristóbal Abraham MD [Primary Care Provider] - 01/11/21 8:30 am (in office) Discharge Medications: New clonidine HCl 0.1 mg Tablet 0.1 mg PO DAILY Qty: 30 RF: 0 clonidine HCl 0.2 mg Tablet 0.2 mg PO BEDTIME Qty: 30 RF: 0 fluoxetine 10 mg Capsule 30 mg PO DAILY Qty: 90 RF: 0 omeprazole 20 mg Capsule,Delayed Release(Dr/Ec) 20 mg PO BID@0630,1630 Qty: 60 RF: 0 multivitamin with minerals Tablet 1 tab PO DAILY Qty: 30 RF: 0 mirtazapine 7.5 mg Tablet 7.5 mg PO BEDTIME Qty: 30 RF: 0 acamprosate 333 mg tablet,delayed release (DR/EC) 666 mg PO TID Qty: 180 RF: 0 amlodipine 5 mg Tablet 5 mg PO BID Qty: 0 RF: 0 acamprosate 333 mg tablet,delayed release (DR/EC) 666 mg PO TID Qty: 180 RF: 0 clonidine HCl 0.1 mg tablet 0.1 mg PO DAILY Qty: 30 RF: 0 clonidine HCl 0.2 mg tablet 0.2 mg PO BEDTIME Qty: 30 RF: 0 fluoxetine [Prozac] 10 mg capsule 30 mg PO DAILY Qty: 90 RF: 0 mirtazapine 7.5 mg tablet 7.5 mg PO BEDTIME Qty: 30 RF: 0 multivitamin with minerals Tablet 1 tab PO DAILY Qty: 30 RF: 0 omeprazole 20 mg tablet,delayed release (DR/EC) 20 mg PO BID Qty: 60 RF: 0 trazodone 50 mg tablet 50 mg PO BEDTIME PRN (Reason: insomnia) Qty: 30 RF: 0 Continued amlodipine 5 mg tablet 1 tab PO BID Qty: 60 RF: 0 Discontinued clonidine HCl 0.1 mg tablet 1 tab PO BID RF: 0 fluoxetine 20 mg capsule 1 cap PO DAILY RF: 0 Discharge Orders: Discharge Order (Routine); Ordered 01/07/21 Ordered By: Sarah Stallings Diet: advance to usual diet Activity on Discharge: As tolerated Stand Alone Forms: Patient Portal Discharge page Care Plan Goals: Mood Stabilization Sobriety Health Concerns: Recurrent Severe Major Depression Alcohol Use Disorder Plan of Treatment: Attend appointments scheduled Take Medications as Directed Assessment: Reports feeling improved, less anxious. Denies SI, HI. No psychotic symptoms present. Patient Instructions: Fluoxetine (By mouth), Mirtazapine (By mouth), Acamprosate (By mouth) Discharge Date/Time: 01/07/21 14:30
[2021-01-08 14:31] LABS: Mitochondrial Antibodies NEGATIVE (NEGATIVE)
[2021-01-09 11:17] LABS: Smooth Muscle Antibody <20 U (<20)
== END 2021-01-07 14:30 | disposition home or self-care (01) | DRG 751 ==
LOC: HO.ED 01-01 02:31 → HO.PM5 01-01 15:20
PROVIDERS: Internal Medicine; Internal Medicine Gastroenterology; Physician Assistant; Registered Nurse; Admitting Provider Psychiatry & Neurology Psychiatry; Emergency Provider Student in an Organized Health Care Education/Training Program; PCP Internal Medicine; Visit Provider Clinical Nurse Specialist Psychiatric/Mental Health, Adult
DX: F33.2 Major depressive disorder, recurrent severe without psychotic features (principal); R45.851 Suicidal ideations; R00.1 Bradycardia, unspecified; F10.21 Alcohol dependence, in remission; Z20.822 Contact with and (suspected) exposure to COVID-19; Z79.899 Other long term (current) drug therapy; I10 Essential (primary) hypertension; F41.9 Anxiety disorder, unspecified
CPT/HCPCS: 36415; 76705; 80053; 80061; 80076; 80307; 81001; 82077; 82306; 82607; 82746; 83036; 83540; 84439; 84443; 85025; 86038; 86039; 86255; 86256; 86617; 86618; 86704; 86706; 86709; 86803; 87340; 87635; 93005; 99285

== ENCOUNTER → 2021-01-17 15:06 | Outpatient (BNVA) | payer OTHER, SELFPAY | PROVIDERS: Visit Provider Nurse Practitioner Psychiatric/Mental Health ==

== ENCOUNTER 2021-01-28 17:20 | Emergency (ER) | payer OTHER, SELFPAY ==
[2021-01-28 17:22] VITALS: BP 170/113; PULSE 129; RESP 18; TEMP 36.7; O2SAT 99; BMI 26.6
--- NOTE | 2021-01-28 17:36 | ED_ITS ---
HPI - Alcohol General Chief Complaint: ETOH/Substance Use Stated Complaint: Alcohol Withdrwal Time Seen by Provider: 01/28/21 22:16 Source: patient Mode of arrival: ambulatory Limitations: no limitations History of Present Illness HPI narrative: 35-year-old male well known to this facility presents with ETOH intoxication requesting detox and suicidal ideation. States that he has been drinking nonstop for the past 5 days, wakes up in the middle the night to drink alcohol. States that he has not stopped long enough to experience withdrawal symptoms, feels like he is going to if he does not stop drinking. He is very depressed and has suicidal ideation, states that when he beau up he is more suicidal and that is why he continues to drink excessively. MD complaint: alcohol intoxication, alcohol dependence and desires rehab Last drink: Hours (ago) (Within the hour of arrival) Chronic alcohol use: Yes Previous visits for alcohol intoxication: Yes Associated symptoms: depression and suicidality Related Data Home Medications Medication Instructions Recorded Confirmed acamprosate 333 mg tablet,delayed 2 tab PO TID 01/28/21 01/28/21 release amlodipine 5 mg tablet 1 tab PO BID 01/28/21 01/28/21 clonidine HCl 0.1 mg tablet 1 tab PO QAM 01/28/21 01/28/21 fluoxetine 10 mg capsule 3 cap PO QAM 01/28/21 01/28/21 mirtazapine 15 mg tablet 0.5 tab PO BEDTIME 01/28/21 01/28/21 omeprazole 20 mg capsule,delayed 1 cap PO BID 01/28/21 01/28/21 release trazodone 50 mg tablet 1 tab PO BEDTIME 01/28/21 01/28/21 Previous Rx's Medication Instructions Recorded clonidine HCl 0.2 mg tablet 0.2 mg PO BEDTIME #30 tab 01/07/21 Allergies Allergy/AdvReac Type Severity Reaction Status Date / Time No Known Allergies Allergy Unknown UNKNOWN Verified 11/29/20 10:25 [NO KNOWN ALLERGIES] Review of Systems Review of Systems: Constitutional: No Fever, No Chills ENT/Mouth: No sore throat, No Rhinorrhea Eyes: No Eye Pain, No Swelling, No Redness Cardiovascular: No Chest Pain, No SOB Respiratory: No Cough, No Sputum Gastrointestinal: No Nausea, No Vomiting, No Diarrhea, No abdominal Pain Genitourinary: No Dysuria, No Hematuria Musculoskeletal: No joint pain, No Myalgias, No Joint Swelling Skin: No Skin Lesions, No rash Neuro: No Weakness, No Numbness, No Loss of Consciousness, No Dizziness, No Headache Psych: Positive alcohol abuse, No Anxiety, positive Depression, positive SI, no homicidal ideation, no auditory or visual hallucinations Heme/Lymph: No Bruising, No Bleeding,No Lymphadenopathy Endocrine: No Polyuria, No Polydipsia Yes all other systems are reviewed and are negative [facility] Past Medical History Attestation statement: The following information was validated with the patient. Source: old records reviewed Medical History Anxiety and depression ETOH abuse Hypertension Psychiatric disturbance Social History Social History Household Members: None Housing: House Do you presently have visiting nurse or other home services: No Patient Tobacco Use Status: Never used Tobacco e-Cigarette/Vaping Use: Never Used Second Hand Smoke Exposure: No Advance Directives: No Advance Directives Information Provided: No service: No Sexual orientation: Straight/Heterosexual Physical Exam Vital Signs: Vital Signs: Last Vital Signs Temp 98.1 F 01/28/21 17:22 Pulse 118 H 01/28/21 22:30 Resp 18 01/28/21 17:22 BP 148/103 H 01/28/21 22:30 Pulse Ox 99 01/28/21 17:22 Body Mass Index 26.6 Appearance: Alert. Oriented X3. No acute distress. Eyes: Pupils equal, round and reactive to light. ENT: Pharynx normal. Neck: Normal inspection. Neck supple. CVS: Normal heart rate and rhythm. Pulses normal. Respiratory: No respiratory distress. Breath sounds normal. Abdomen: Soft and nontender. Skin: Skin warm and dry. Normal skin color. Normal skin turgor. Extremities: Moves all extremities against resistance. Neuro: No motor deficit. No sensory deficit. Cranial nerves 2-12 intact. Course Course Course Narrative: 35 year old male presents for detox and is requesting M5 placement. States that he is suicidal because of his alcohol abuse. He is well-known to this facility. At this time he is pleasant and cooperative, orders for labs, EtOH, and care team consult. Order for Librium 50 mg p.r.n. q.8 hours for withdrawal symptoms. Physician observation started at this time. MDM - Alcohol Differential Diagnosis Differential diagnosis: Likely alcohol dependence, alcohol withdrawal delirium, hypomagnesemia, alcohol intoxication and alcohol withdrawal syndrome Medical Records Attestation: I reviewed the patient's medical records. Lab Data Attestation: I reviewed the patient's lab results. Result diagrams: 01/28/21 18:36 Labs: Lab Results 01/28/21 01/28/21 01/28/21 Range/Units 18:36 18:36 18:36 WBC 8.8 (4.8-10.8) X10*3/uL RBC 5.29 (4.60-5.80) X10*6/uL Hgb 16.8 (14.0-18.0) g/dl Hct 46.3 (42-52) % MCV 87.5 (80-98) fL MCH 31.8 (27.0-33.0) pg MCHC 36.3 H (31.0-36.0) g/dl RDW 11.7 (11.0-16.0) % Plt Count 257 D (160-400) X10*3/uL MPV 9.6 (9.4-12.4) fL Immature Gran % (Auto) 0.3 (0.0-0.4) % Neut % (Auto) 62.9 (45-73) % Lymph % (Auto) 23.4 (20-40) % [place] % (Auto) 12.3 H (2-11) % Eos % (Auto) 0.1 (0-4) % Baso % (Auto) 1.0 (0-2) % Lymph # (Auto) 2.1 (1.2-4.9) X10*3/uL [place] # (Auto) 1.1 (0.1-1.2) X10*3/uL Eos # (Auto) 0.0 (0.0-0.4) X10*3/uL Baso # (Auto) 0.1 (0.0-0.2) X10*3/uL Abs Immat Gran (auto) 0.03 (0.00-0.03) X10*3/uL Absolute Neuts (auto) 5.5 (2.0-8.3) X10*3/uL Absolute Nucleated RBC 0.000 (0.0-0.012) X10*3/uL Nucleated RBC % (auto) 0.0 (0.0-0.2) /100WBC Total Bilirubin 0.3 (0.0-1.0) mg/dL Direct Bilirubin < 0.2 (0.0-0.5) mg/dL AST 57 H (5-37) U/L ALT 86 H (0-40) U/L Alkaline Phosphatase 57 D (39-117) U/L Total Protein 8.8 H (6.5-8.0) g/dL Albumin 5.3 H (3.5-5.0) g/dL Lipase 37 (8-78) U/L Salicylates < 5.0 L (15-30) mg/dL Urine Opiates Screen (Not Detect) Urine Fentanyl Screen (Not Detect) Acetaminophen < 1 (<30) mcg/mL Ur Barbiturates Screen (Not Detect) Ur Phencyclidine Scrn (Not Detect) Ur Amphetamines Screen (Not Detect) U Benzodiazepines Scrn (Not Detect) Urine Cocaine Screen (Not Detect) U Marijuana (THC) Screen (Not Detect) Ethyl Alcohol 366 H* mg/dL COVID-19 ([facility]CI) (Negative) COVID-19 Clin Com 01/28/21 01/28/21 Range/Units 18:48 20:45 WBC (4.8-10.8) X10*3/uL RBC (4.60-5.80) X10*6/uL Hgb (14.0-18.0) g/dl Hct (42-52) % MCV (80-98) fL MCH (27.0-33.0) pg MCHC (31.0-36.0) g/dl RDW (11.0-16.0) % Plt Count (160-400) X10*3/uL MPV (9.4-12.4) fL Immature Gran % (Auto) (0.0-0.4) % Neut % (Auto) (45-73) % Lymph % (Auto) (20-40) % [place] % (Auto) (2-11) % Eos % (Auto) (0-4) % Baso % (Auto) (0-2) % Lymph # (Auto) (1.2-4.9) X10*3/uL [place] # (Auto) (0.1-1.2) X10*3/uL Eos # (Auto) (0.0-0.4) X10*3/uL Baso # (Auto) (0.0-0.2) X10*3/uL Abs Immat Gran (auto) (0.00-0.03) X10*3/uL Absolute Neuts (auto) (2.0-8.3) X10*3/uL Absolute Nucleated RBC (0.0-0.012) X10*3/uL Nucleated RBC % (auto) (0.0-0.2) /100WBC Total Bilirubin (0.0-1.0) mg/dL Direct Bilirubin (0.0-0.5) mg/dL AST (5-37) U/L ALT (0-40) U/L Alkaline Phosphatase (39-117) U/L Total Protein (6.5-8.0) g/dL Albumin (3.5-5.0) g/dL Lipase (8-78) U/L Salicylates (15-30) mg/dL Urine Opiates Screen Not Detected (Not Detect) Urine Fentanyl Screen Not Detected (Not Detect) Acetaminophen (<30) mcg/mL Ur Barbiturates Screen Not Detected (Not Detect) Ur Phencyclidine Scrn Not Detected (Not Detect) Ur Amphetamines Screen Not Detected (Not Detect) U Benzodiazepines Scrn Not Detected (Not Detect) Urine Cocaine Screen Not Detected (Not Detect) U Marijuana (THC) Screen Not Detected (Not Detect) Ethyl Alcohol mg/dL COVID-19 ([facility]CI) Negative (Negative) COVID-19 Clin Com See Note Discharge Plan Discharge Clinical Impression: Depression with suicidal ideation Alcoholic intoxication Qualifiers: Complication of substance-induced condition: uncomplicated Qualified Code(s): F10.920 - Alcohol use, unspecified with intoxication, uncomplicated Alcohol withdrawal syndrome Qualifiers: Complication of substance-induced condition: uncomplicated Qualified Code(s): F10.230 - Alcohol dependence with withdrawal, uncomplicated Prescriptions: No Action clonidine HCl 0.2 mg tablet 0.2 mg PO BEDTIME Qty: 30 RF: 0 clonidine HCl 0.1 mg tablet 1 tab PO QAM RF: 0 trazodone 50 mg tablet 1 tab PO BEDTIME RF: 0 fluoxetine 10 mg capsule 3 cap PO QAM RF: 0 omeprazole 20 mg capsule,delayed release(DR/EC) 1 cap PO BID RF: 0 mirtazapine 15 mg tablet 0.5 tab PO BEDTIME RF: 0 acamprosate 333 mg tablet,delayed release (DR/EC) 2 tab PO TID RF: 0 amlodipine 5 mg tablet 1 tab PO BID RF: 0
[2021-01-28 18:43] LABS: MANUAL DIFF FLAG NO
[2021-01-28 18:55] LABS: Basophils Absolute Auto 0.1 X10*3/uL (0.0-0.2); Eosinophils Percent Auto 0.1 % (0-4); Hematocrit 46.3 % (42-52); Hemoglobin 16.8 g/dl (14.0-18.0); Imm Gran Abs Auto 0.03 X10*3/uL (0.00-0.03); Imm Gran Pct Auto 0.3 % (0.0-0.4); Lymphocytes Absolute Auto 2.1 X10*3/uL (1.2-4.9); Lymphocytes Percent Auto 23.4 % (20-40); Mean Corpuscular HGB Conc 36.3 g/dl (31.0-36.0); Mean Corpuscular Hemoglobin 31.8 pg (27.0-33.0); Mean Corpuscular Volume 87.5 fL (80-98); Mean Platelet Volume 9.6 fL (9.4-12.4); Monocytes Absolute Auto 1.1 X10*3/uL (0.1-1.2); Monocytes Percent Auto 12.3 % (2-11); Neutrophils Absolute Auto 5.5 X10*3/uL (2.0-8.3); Neutrophils Percent Auto 62.9 % (45-73); Platelet Count 257 X10*3/uL (160-400); Red Blood Count 5.29 X10*6/uL (4.60-5.80); Red Cell Distribution Width 11.7 % (11.0-16.0); White Blood Count 8.8 X10*3/uL (4.8-10.8)
[2021-01-28 18:56] LABS: Ethanol 366 mg/dL
[2021-01-28 19:04] LABS: Alanine Aminotransferase 86 U/L (0-40); Albumin Level 5.3 g/dL (3.5-5.0); Alkaline Phosphatase 57 U/L (39-117); Aspartate Amino Transferase 57 U/L (5-37); Bilirubin Direct < 0.2 mg/dL (0.0-0.5); Bilirubin Total 0.3 mg/dL (0.0-1.0); Lipase 37 U/L (8-78); Total Protein 8.8 g/dL (6.5-8.0)
[2021-01-28 19:06] LABS: Acetaminophen LAB < 1 mcg/mL (<30); Salicylate < 5.0 mg/dL (15-30)
[2021-01-28 19:08] LABS: Amphetamine Screen Urine Not Detected (Not Detect); Barbiturates, Urine Not Detected (Not Detect); Benzodiazepines Screen Urine Not Detected (Not Detect); Cannabinoid Screen Urine Not Detected (Not Detect); Cocaine Screen Urine Not Detected (Not Detect); Fentanyl, urine Not Detected (Not Detect); Opiate Screen Urine Not Detected (Not Detect); Phencyclidine Screen Urine Not Detected (Not Detect)
--- NOTE | 2021-01-28 19:37 | MHC.CARE ---
CARE team aware of pt in ED. BAL is 366 and he will not be appropriate for consult/assessment until 01/29.
[2021-01-28] MEDS: LORazepam 1 MG TABLET 2 MG PO (20:12)
[2021-01-28 21:05] LABS: COVID-19 Test Negative (Negative); IDNOW Serial# 9DD0AD1C
[2021-01-28 22:29] VITALS: BP 148/103; PULSE 118
[2021-01-28] MEDS: Omeprazole 20 MG CAPSULE.DR PO (22:29)
[2021-01-28] MEDS: amLODIPine Besylate 5 MG TABLET PO (22:29)
[2021-01-28 22:30] VITALS: BP 148/103; PULSE 118
[2021-01-28] MEDS: traZODone HCL 50 MG TABLET PO (22:30)
[2021-01-28] MEDS: cloNIDine HCL 0.2 MG TABLET PO (22:30)
[2021-01-28] MEDS: Mirtazapine 7.5 MG TABLET PO (22:31)
[2021-01-28] MEDS: chlordiazePOXIDE HCl 25 MG CAPSULE 50 MG PO (23:18)
--- NOTE | 2021-01-28 23:21 | PC.NURSE ---
Patient scored 11 on CIWA, prn Librium 50 mg administered as ordered, pending effect, will continue to monitor.
--- NOTE | 2021-01-29 06:09 | PC.NURSE ---
Patient slept through the night, no distress observed/reported, patient is asymptomatic of withdrawal at this time, patient is waiting to be seen by care team, will continue to monitor.
[2021-01-29 06:37] VITALS: BP 133/76; PULSE 96; RESP 19; TEMP 37; O2SAT 97
[2021-01-29 08:38] VITALS: BP 133/76; PULSE 96
[2021-01-29] MEDS: cloNIDine HCL 0.1 MG TABLET PO (08:38)
[2021-01-29 08:40] VITALS: BP 133/76; PULSE 96
[2021-01-29] MEDS: chlordiazePOXIDE HCl 25 MG CAPSULE 50 MG PO (08:40)
[2021-01-29] MEDS: FLUoxetine HCl 10 MG CAPSULE 30 MG PO (08:40)
[2021-01-29] MEDS: amLODIPine Besylate 5 MG TABLET PO ×2 (08:40→20:06)
[2021-01-29 08:41] VITALS: BP 126/88; PULSE 109; TEMP 37.4; O2SAT 97
[2021-01-29] MEDS: Omeprazole 20 MG CAPSULE.DR PO (08:41)
[2021-01-29] MEDS: LORazepam 1 MG TABLET 2 MG PO ×2 (10:52→17:01)
--- NOTE | 2021-01-29 19:20 | MHC.CARE ---
CARE team cleared pt for detox placement this morning. CARE team spoke with pt throughout the day about his treatment options, as there is no present medical necessity warranting a psychiatric admission, which pt has been resistant to. After speaking with the recovery specialist, he is more agreeable to engaging in treatment specifically for his alcohol dependence. This senior medical writer contacted [facility] ([phone]) [facility] detox treatment facility re: referral for admission. Pt signed release to share records from most recent psych admission and present ED visit. Records faxed to [facility] ([phone]). Pt is presently on the phone with customer service coordinator Sis Souza ([phone]) at [facility]. Attempted to contact pt's father to pick pt up from ED.
--- NOTE | 2021-01-29 19:28 | MHC.RECOVSUP ---
? Reason for consult Recovery Support o Current location: [facility] o Identified substance use concern: Alcohol - Withdrawal - Seeking ATS (detox) - Support ? Intervention: o Community resources provided o Harm reduction discussion ? Plan: o Patient awaiting crisis evaluation o Patient to follow up with [facility] after discharge ? Additional information: Met with Patient and Patient agree with the care team plan.
[2021-01-29] MEDS: chlordiazePOXIDE HCl 25 MG CAPSULE 100 MG PO (20:01)
[2021-01-29 20:06] VITALS: BP 152/104; BP 154/104; PULSE 124; RESP 16; O2SAT 97
[2021-01-29 20:08] VITALS: BP 154/104; PULSE 124
[2021-01-29] MEDS: cloNIDine HCL 0.2 MG TABLET PO (20:08)
--- NOTE | 2021-01-29 20:12 | MHC.CARE ---
Pt's father is planning to pick pt up around 9pm from the ED. His father has been updated on the plan and has been given the phone number and address for the facility and is aware [facility] in the morning to plan his admission.
== END 2021-01-29 20:13 | disposition home or self-care (01) ==
PROVIDERS: Nurse Practitioner Family; Emergency Provider Internal Medicine; PCP Internal Medicine
DX: F33.1 Major depressive disorder, recurrent, moderate (principal); R45.851 Suicidal ideations; F10.230 Alcohol dependence with withdrawal, uncomplicated; Y90.8 Blood alcohol level of 240 mg/100 ml or more; Z79.899 Other long term (current) drug therapy; Z20.822 Contact with and (suspected) exposure to COVID-19
CPT/HCPCS: 36415; 80076; 80143; 80179; 80307; 82077; 83690; 85025; 87635; 99284

== ENCOUNTER 2021-03-14 09:51 | Outpatient (RCR) | payer OTHER, SELFPAY | END 2021-03-14 13:32 | disposition home or self-care (01) | LOC: HO.PHPA 09:51 | PROVIDERS: PCP Internal Medicine; Visit Provider Psychiatry & Neurology Psychiatry | DX: F32.9 Major depressive disorder, single episode, unspecified (principal); Z72.89 Other problems related to lifestyle ==

== ENCOUNTER 2021-03-22 18:50 | Emergency (ER) | payer OTHER, SELFPAY ==
--- NOTE | 2021-03-22 18:59 | ED_ITS ---
HPI - Psych General Chief Complaint: Psychiatric Symptoms Stated Complaint: crisis Time Seen by Provider: 03/22/21 18:55 Source: patient, EMS and old records reviewed Mode of arrival: EMS Limitations: no limitations History of Present Illness MD complaint: suicidal ideation, feels depressed and alcohol abuse Onset (ago): week(s) (few) Duration: constant History of same: Yes Relieving factors: none Exacerbating factors: alcohol Context: recent alcohol abuse Associated psychiatric symptoms: depression and suicidal ideation Associated symptoms: denies other symptoms Treatments prior to arrival: none Related Data Home Medications Medication Instructions Recorded Confirmed acamprosate 333 mg tablet,delayed 2 tab PO TID 03/22/21 03/22/21 release amlodipine 5 mg tablet 1 tab PO BID 03/22/21 03/22/21 buspirone 30 mg tablet 1 tab PO BID 03/22/21 03/22/21 clonidine HCl 0.1 mg tablet 1 tab PO QAM 03/22/21 03/22/21 clonidine HCl 0.2 mg tablet 1 tab PO BEDTIME 03/22/21 03/22/21 fluoxetine 10 mg capsule 1 cap PO DAILY 03/22/21 03/22/21 folic acid 1 mg tablet 1 tab PO DAILY 03/22/21 03/22/21 mirtazapine 7.5 mg tablet 1 tab PO BEDTIME 03/22/21 03/22/21 risperidone 0.25 mg tablet 1 tab PO BID 03/22/21 03/22/21 trazodone 50 mg tablet 1 tab PO BEDTIME 03/22/21 03/22/21 Allergies Allergy/AdvReac Type Severity Reaction Status Date / Time No Known Allergies Allergy Unknown UNKNOWN Verified 11/29/20 10:25 [NO KNOWN ALLERGIES] Review of Systems Review of Systems: Constitutional : No Fever, No Chills ENT/Mouth : No Ear Pain, No Nasal Congestion, No sore throat Eyes: No Eye Pain, No Swelling, No Redness Cardiovascular : No Chest Pain, No SOB Respiratory : No Cough, No Sputum, No Dyspnea Gastrointestinal : No Nausea, No Vomiting, No Diarrhea, No Hematochezia, No Melena Genitourinary : No Dysuria, No Urinary Frequency, No Hematuria Musculoskeletal : No Myalgias Skin : No Skin Lesions, No rash Neuro : No Weakness, No Numbness, No Paresthesias, No Dizziness, No Headache Psych : positive Anxiety, positive Depression, positive SI no HI Heme/Lymph: No Lymphadenopathy Endocrine : No Polyuria, No Polydipsia All other systems reviewed and are negative [facility] Past Medical History Attestation statement: The following information was validated with the patient. Medical History Anxiety and depression ETOH abuse Hypertension Psychiatric disturbance Social History Social History Household Members: None Housing: House Do you presently have visiting nurse or other home services: No Patient Tobacco Use Status: Never used Tobacco e-Cigarette/Vaping Use: Never Used Second Hand Smoke Exposure: No Advance Directives: No Advance Directives Information Provided: Yes service: No Sexual orientation: Straight/Heterosexual Physical Exam Vital Signs: Vital Signs: Last Vital Signs Temp 98.1 F 03/22/21 19:04 Pulse 111 H 03/22/21 19:59 Resp 17 03/22/21 19:04 BP 159/98 H 03/22/21 19:59 Pulse Ox 99 03/22/21 19:04 Body Mass Index 26.6 Appearance: Alert. Oriented X3. No acute distress. ETOH odor, slurred speech Eyes: Pupils equal, round and reactive to light. ENT: Pharynx normal. Neck: Normal inspection. Neck supple. CVS: Normal heart rate and rhythm. Pulses normal. Respiratory: No respiratory distress. Breath sounds normal. Abdomen: Soft and nontender. Skin: Skin warm and dry. Normal skin color. Normal skin turgor. Extremities: No lower extremity edema. No calf ttp Neuro: Oriented X 3. No motor deficit. No sensory deficit. CN 2-12 intact Psych: positive depression and anxiety, calm and cooperative Course Course Course Narrative: Physician observation started at 8pm Patient placed in physician observation because the patient needed more time for BHN evaluation and clinical sobriety. At the time observation was started the patient's vitals were stable, patient is alert and oriented + ETOH odor, Neuro: nonfocal, CV RRR, Lungs clear MDM - Psych MDM Narrative Medical decision making narrative: 35 yo male with hx of depression and ETOH abuse at this time will obtain labs monitor for withdrawal and BHN consult, he is on S12 from PD Lab Data Result diagrams: 03/22/21 19:30 10/22/21 19:30 Labs: Lab Results 03/22/21 03/22/21 03/22/21 Range/Units 19:18 19:18 19:30 WBC 9.7 (4.8-10.8) X10*3/uL RBC 5.68 (4.60-5.80) X10*6/uL Hgb 17.2 (14.0-18.0) g/dl Hct 48.9 (42-52) % MCV 86.1 (80-98) fL MCH 30.3 (27.0-33.0) pg MCHC 35.2 (31.0-36.0) g/dl RDW 11.9 (11.0-16.0) % Plt Count 282 (160-400) X10*3/uL MPV 9.4 (9.4-12.4) fL Immature Gran % (Auto) 0.4 (0.0-0.4) % Neut % (Auto) 46.1 (45-73) % Lymph % (Auto) 40.5 H (20-40) % [place] % (Auto) 10.4 (2-11) % Eos % (Auto) 1.3 (0-4) % Baso % (Auto) 1.3 (0-2) % Lymph # (Auto) 3.9 (1.2-4.9) X10*3/uL [place] # (Auto) 1.0 (0.1-1.2) X10*3/uL Eos # (Auto) 0.1 (0.0-0.4) X10*3/uL Baso # (Auto) 0.1 (0.0-0.2) X10*3/uL Abs Immat Gran (auto) 0.04 H (0.00-0.03) X10*3/uL Absolute Neuts (auto) 4.5 (2.0-8.3) X10*3/uL Absolute Nucleated RBC 0.000 (0.0-0.012) X10*3/uL Nucleated RBC % (auto) 0.0 (0.0-0.2) /100WBC Sodium (135-145) mmol/L Potassium (3.3-5.1) mmol/L Chloride (96-108) mmol/L Carbon Dioxide (22-29) mmol/L Anion Gap (12-20) BUN (9-16) mg/dL Creatinine (0.5-1.4) mg/dL Estim Creat Clear Calc Estimated GFR Random Glucose (60-115) mg/dL Calcium (8.4-10.2) mg/dL Magnesium (1.6-2.6) mg/dL Total Bilirubin (0.0-1.0) mg/dL Direct Bilirubin (0.0-0.5) mg/dL AST (5-37) U/L ALT (0-40) U/L Alkaline Phosphatase (39-117) U/L Total Protein (6.5-8.0) g/dL Albumin (3.5-5.0) g/dL Urine Opiates Screen Not Detected (Not Detect) Urine Fentanyl Screen Not Detected (Not Detect) Ur Barbiturates Screen Not Detected (Not Detect) Ur Phencyclidine Scrn Not Detected (Not Detect) Ur Amphetamines Screen Not Detected (Not Detect) U Benzodiazepines Scrn POSITIVE H (Not Detect) Urine Cocaine Screen Not Detected (Not Detect) U Marijuana (THC) Screen Not Detected (Not Detect) Ethyl Alcohol mg/dL COVID-19 ([facility]CI) Negative (Negative) COVID-19 Clin Com See Note 03/22/21 03/22/21 Range/Units 19:30 19:30 WBC (4.8-10.8) X10*3/uL RBC (4.60-5.80) X10*6/uL Hgb (14.0-18.0) g/dl Hct (42-52) % MCV (80-98) fL MCH (27.0-33.0) pg MCHC (31.0-36.0) g/dl RDW (11.0-16.0) % Plt Count (160-400) X10*3/uL MPV (9.4-12.4) fL Immature Gran % (Auto) (0.0-0.4) % Neut % (Auto) (45-73) % Lymph % (Auto) (20-40) % [place] % (Auto) (2-11) % Eos % (Auto) (0-4) % Baso % (Auto) (0-2) % Lymph # (Auto) (1.2-4.9) X10*3/uL [place] # (Auto) (0.1-1.2) X10*3/uL Eos # (Auto) (0.0-0.4) X10*3/uL Baso # (Auto) (0.0-0.2) X10*3/uL Abs Immat Gran (auto) (0.00-0.03) X10*3/uL Absolute Neuts (auto) (2.0-8.3) X10*3/uL Absolute Nucleated RBC (0.0-0.012) X10*3/uL Nucleated RBC % (auto) (0.0-0.2) /100WBC Sodium 146 H (135-145) mmol/L Potassium 4.2 (3.3-5.1) mmol/L Chloride 106 (96-108) mmol/L Carbon Dioxide 27 (22-29) mmol/L Anion Gap 17 (12-20) BUN 13 (9-16) mg/dL Creatinine 1.13 (0.5-1.4) mg/dL Estim Creat Clear Calc 88.2 Estimated GFR > 60 Random Glucose 140 H (60-115) mg/dL Calcium 9.8 (8.4-10.2) mg/dL Magnesium 2.4 (1.6-2.6) mg/dL Total Bilirubin 0.4 (0.0-1.0) mg/dL Direct Bilirubin 0.2 (0.0-0.5) mg/dL AST 159 H (5-37) U/L ALT 164 H (0-40) U/L Alkaline Phosphatase 54 (39-117) U/L Total Protein 8.7 H (6.5-8.0) g/dL Albumin 5.2 H (3.5-5.0) g/dL Urine Opiates Screen (Not Detect) Urine Fentanyl Screen (Not Detect) Ur Barbiturates Screen (Not Detect) Ur Phencyclidine Scrn (Not Detect) Ur Amphetamines Screen (Not Detect) U Benzodiazepines Scrn (Not Detect) Urine Cocaine Screen (Not Detect) U Marijuana (THC) Screen (Not Detect) Ethyl Alcohol 344 H* mg/dL COVID-19 ([facility]CI) (Negative) COVID-19 Clin Com Discharge Plan Discharge Clinical Impression: Alcohol intoxication Qualifiers: Complication of substance-induced condition: uncomplicated Qualified Code(s): F10.920 - Alcohol use, unspecified with intoxication, uncomplicated Prescriptions: No Action clonidine HCl 0.1 mg tablet 1 tab PO QAM RF: 0 trazodone 50 mg tablet 1 tab PO BEDTIME RF: 0 risperidone 0.25 mg tablet 1 tab PO BID RF: 0 amlodipine 5 mg tablet 1 tab PO BID RF: 0 clonidine HCl 0.2 mg tablet 1 tab PO BEDTIME RF: 0 buspirone 30 mg tablet 1 tab PO BID RF: 0 fluoxetine 10 mg capsule 1 cap PO DAILY RF: 0 folic acid 1 mg tablet 1 tab PO DAILY RF: 0 mirtazapine 7.5 mg tablet 1 tab PO BEDTIME RF: 0 acamprosate 333 mg tablet,delayed release (DR/EC) 2 tab PO TID RF: 0
[2021-03-22 19:04] VITALS: BP 159/98; PULSE 111; RESP 17; TEMP 36.7; O2SAT 99; BMI 26.6
[2021-03-22 19:35] LABS: MANUAL DIFF FLAG NO
[2021-03-22 19:37] LABS: Basophils Absolute Auto 0.1 X10*3/uL (0.0-0.2); Basophils Percent Auto 1.3 % (0-2); Eosinophils Absolute Auto 0.1 X10*3/uL (0.0-0.4); Eosinophils Percent Auto 1.3 % (0-4); Hematocrit 48.9 % (42-52); Hemoglobin 17.2 g/dl (14.0-18.0); Imm Gran Abs Auto 0.04 X10*3/uL (0.00-0.03); Imm Gran Pct Auto 0.4 % (0.0-0.4); Lymphocytes Absolute Auto 3.9 X10*3/uL (1.2-4.9); Lymphocytes Percent Auto 40.5 % (20-40); Mean Corpuscular HGB Conc 35.2 g/dl (31.0-36.0); Mean Corpuscular Hemoglobin 30.3 pg (27.0-33.0); Mean Corpuscular Volume 86.1 fL (80-98); Mean Platelet Volume 9.4 fL (9.4-12.4); Monocytes Percent Auto 10.4 % (2-11); Neutrophils Absolute Auto 4.5 X10*3/uL (2.0-8.3); Neutrophils Percent Auto 46.1 % (45-73); Platelet Count 282 X10*3/uL (160-400); Red Blood Count 5.68 X10*6/uL (4.60-5.80); Red Cell Distribution Width 11.9 % (11.0-16.0); White Blood Count 9.7 X10*3/uL (4.8-10.8)
[2021-03-22 19:41] LABS: Amphetamine Screen Urine Not Detected (Not Detect); Barbiturates, Urine Not Detected (Not Detect); Benzodiazepines Screen Urine POSITIVE (Not Detect); Cannabinoid Screen Urine Not Detected (Not Detect); Cocaine Screen Urine Not Detected (Not Detect); Fentanyl, urine Not Detected (Not Detect); Opiate Screen Urine Not Detected (Not Detect); Phencyclidine Screen Urine Not Detected (Not Detect)
[2021-03-22 19:42] LABS: COVID-19 Test Negative (Negative); IDNOW Serial# 9DD0AD1C
[2021-03-22 19:55] LABS: Ethanol 344 mg/dL
[2021-03-22 19:58] VITALS: BP 159/98; PULSE 111
[2021-03-22 19:58] LABS: Alanine Aminotransferase 164 U/L (0-40); Albumin Level 5.2 g/dL (3.5-5.0); Alkaline Phosphatase 54 U/L (39-117); Anion Gap 17 (12-20); Aspartate Amino Transferase 159 U/L (5-37); Bilirubin Direct 0.2 mg/dL (0.0-0.5); Bilirubin Total 0.4 mg/dL (0.0-1.0); Blood Urea Nitrogen 13 mg/dL (9-16); Calcium 9.8 mg/dL (8.4-10.2); Carbon Dioxide 27 mmol/L (22-29); Chloride 106 mmol/L (96-108); Creatinine Clr Calc Pharmacy 88.2; Estimated Glomerular Filt Rate > 60; Glucose Random 140 mg/dL (60-115); Magnesium 2.4 mg/dL (1.6-2.6); Potassium 4.2 mmol/L (3.3-5.1); Sodium 146 mmol/L (135-145); Total Protein 8.7 g/dL (6.5-8.0)
[2021-03-22] MEDS: traZODone HCL 50 MG TABLET PO (19:58)
[2021-03-22] MEDS: risperiDONE 0.25 MG TABLET PO (19:58)
[2021-03-22] MEDS: busPIRone HCl 10 MG TABLET 30 MG PO (19:58)
[2021-03-22] MEDS: cloNIDine HCL 0.2 MG TABLET PO (19:58)
[2021-03-22] MEDS: Mirtazapine 7.5 MG TABLET PO (19:58)
[2021-03-22 19:59] VITALS: BP 159/98; PULSE 111
[2021-03-22] MEDS: amLODIPine Besylate 5 MG TABLET PO (19:59)
[2021-03-23 01:55] VITALS: BP 114/69; PULSE 94; RESP 17; TEMP 36.7; O2SAT 95
[2021-03-23] MEDS: LORazepam 1 MG TABLET 2 MG PO (06:51)
--- NOTE | 2021-03-23 06:54 | PC.NURSE ---
Patient slept through the night, no distress observed/reported, symptomatic for withdrawal symptoms, Ativan 2 mg administered for comfort, patient will be seen by care team, medication compliant, behavior appropriate, will continue to monitor.
--- NOTE | 2021-03-23 07:54 | PC.NURSE ---
client appears to remain asleep at present, respirations are even and unlabored, patient appears in no distress
--- NOTE | 2021-03-23 10:22 | MHC.CARE ---
Pt was assessed by CARE TEAM. Level of care recommended is detox. Pt initially declined admission and at discharge expressed interest in admission. Pt is referred to Recovery Team.
--- NOTE | 2021-03-23 10:57 | MHC.RECOVSUP ---
Recovery Support note: Patient was referred to Recovery Support Team by the CARE Team to assist patient in securing ATS bed. Patient referred to [facility] where patient recently discharged from. This designer/writer awaits call from [facility] for patient to complete a phone intake to move forward with his admission. Patient is agreeable to returning to the facility. Discussed case with CARE Team.
[2021-03-23] MEDS: busPIRone HCl 10 MG TABLET 30 MG PO (11:04)
[2021-03-23] MEDS: risperiDONE 0.25 MG TABLET PO (11:04)
[2021-03-23 11:05] VITALS: BP 114/69; PULSE 94
[2021-03-23] MEDS: amLODIPine Besylate 5 MG TABLET PO (11:05)
[2021-03-23] MEDS: FLUoxetine HCl 10 MG CAPSULE PO (11:05)
[2021-03-23] MEDS: Folic Acid 1 MG TABLET PO (11:05)
[2021-03-23] MEDS: cloNIDine HCL 0.1 MG TABLET PO (11:05)
== END 2021-03-23 12:14 | disposition home or self-care (01) ==
PROVIDERS: Emergency Provider Emergency Medicine
DX: F33.1 Major depressive disorder, recurrent, moderate (principal); F10.920 Alcohol use, unspecified with intoxication, uncomplicated; Y90.8 Blood alcohol level of 240 mg/100 ml or more; R45.851 Suicidal ideations; Z20.822 Contact with and (suspected) exposure to COVID-19; Z79.899 Other long term (current) drug therapy
CPT/HCPCS: 36415; 80048; 80076; 80307; 82077; 83735; 85025; 87635; 99283; 99285

== ENCOUNTER 2021-03-28 10:31 | Outpatient (RCR) | payer OTHER, SELFPAY | END 2021-03-28 10:31 | disposition home or self-care (01) | LOC: HO.PHPA 10:31 | PROVIDERS: Visit Provider Psychiatry & Neurology Psychiatry | DX: F32.9 Major depressive disorder, single episode, unspecified (principal); Z72.89 Other problems related to lifestyle ==

== ENCOUNTER 2021-03-31 07:50 | Emergency (ER) | payer OTHER, SELFPAY ==
[2021-03-31 07:53] VITALS: BP 152/107; PULSE 133; RESP 118; TEMP 36.7; O2SAT 98; BMI 27.3
--- NOTE | 2021-03-31 08:04 | ED.ALCOHOL ---
HPI - Alcohol General Chief Complaint: ETOH/Substance Use Stated Complaint: RAPID HEART BEAT Time Seen by Provider: 03/31/21 08:04 Source: patient Mode of arrival: ambulatory Limitations: no limitations History of Present Illness HPI narrative: patient stopped drinking yesterday and noted a rapid pulse and was hypertensive at home. Patient wants to feel better and then he will get himself into a program. complaint: alcohol withdrawal Last drink: Days (ago) Chronic alcohol use: Yes Previous visits for alcohol intoxication: Yes Related Data Home Medications Medication Instructions Recorded Confirmed acamprosate 333 mg tablet,delayed 2 tab PO TID 03/22/21 03/22/21 release amlodipine 5 mg tablet 1 tab PO BID 03/22/21 03/22/21 buspirone 30 mg tablet 1 tab PO BID 03/22/21 03/22/21 clonidine HCl 0.1 mg tablet 1 tab PO QAM 03/22/21 03/22/21 clonidine HCl 0.2 mg tablet 1 tab PO BEDTIME 03/22/21 03/22/21 fluoxetine 10 mg capsule 1 cap PO DAILY 03/22/21 03/22/21 folic acid 1 mg tablet 1 tab PO DAILY 03/22/21 03/22/21 mirtazapine 7.5 mg tablet 1 tab PO BEDTIME 03/22/21 03/22/21 risperidone 0.25 mg tablet 1 tab PO BID 03/22/21 03/22/21 trazodone 50 mg tablet 1 tab PO BEDTIME 03/22/21 03/22/21 Allergies Allergy/AdvReac Type Severity Reaction Status Date / Time No Known Allergies Allergy Unknown UNKNOWN Verified 11/29/20 10:25 [NO KNOWN ALLERGIES] Review of Systems Constitutional: Constitutional: Reports no additional constitutional complaints Eyes: Eyes: Reports no additional eye complaints ENT: Denies dizziness Cardiovascular: Cardiovascular: Reports no additional cardiovascular complaints Respiratory: Respiratory: Reports as per HPI Gastrointestinal: Gastrointestinal: Reports no additional gastrointestinal complaints Musculoskeletal: Musculoskeletal: Reports no additional musculoskeletal complaints Integumentary/Breasts: Skin/Breast: Denies rash Neurologic: Reports system reviewed and no additional complaints, except as documented, Denies dizziness and Denies Sensory deficit (Neuro) Psychiatric: Psychiatric: Denies anxiety PMFSH Past Medical History Medical History Anxiety and depression ETOH abuse Hypertension Psychiatric disturbance Social History Social History Household Members: None Housing: House Do you presently have visiting nurse or other home services: No Alcohol intake: current Alcohol intake frequency: 3 or more drinks per day Patient Tobacco Use Status: Never used Tobacco e-Cigarette/Vaping Use: Never Used Second Hand Smoke Exposure: No Use of substances other than those prescribed or required for medical reasons: No Advance Directives: No Advance Directives Information Provided: No service: No Sexual orientation: Straight/Heterosexual Physical Exam Vital Signs: Vital Signs: Last Vital Signs Temp 98.0 F 03/31/21 07:53 Pulse 101 H 03/31/21 09:10 Resp 15 03/31/21 09:10 BP 130/73 03/31/21 09:10 Pulse Ox 95 03/31/21 09:10 Body Mass Index 27.3 Const: Other: awake and alert Nutritional Appearance: average body habitus Orientation/consciousness: oriented to person and patient oriented x3 Limitations: no limitations HENMT: Head: Yes normal to inspection Ears: external ears normal General nose exam: Normal external nose present Mouth: Normal oral and palatal mucosa present and oropharynx normal Throat: Yes posterior oropharynx normal Eyes: General: appearance normal, both eyes and all related structures Neck: Other: supple Neck: Yes normal visual inspection Chest: Chest palpation & inspection: normal inspection of the chest Resp: Auscultation: clear to auscultation bilaterally Cardio: Jugular venous distension: no JVD Rate: regular rate Rhythm: regular rhythm Heart sounds: S1 normal heart sound present and S2 normal heart sound present GI: Inspection: Yes normal to inspection Palpation (GI): Soft to palpation, nontender and No hepatosplenomegaly present Auscultation: normal bowel sounds : General: Yes no CVA tenderness Back/Spine/Pelvis: Back: no CVA tenderness Skin: General skin exam: no rashes or lesions noted Neuro: General: oriented to person and patient oriented x3 Cranial nerves: Yes CN's II-XII intact bilaterally Motor exam (neuro): 5/5 motor strength present throughout Sensory Exam: No Sensory deficit (Neuro) Extrem: General: Yes normal to inspection Psych: Other: Denies suicidal or homicidal ideation. Acting appropriately Appearance: grossly normal Course Reevaluation(s) Reevaluation #1: Patient states he is going to go home and go to detox, needs to pack his bags, denies suicidal or homicidal ideation Time: 10:16 MDM - Alcohol Lab Data Result diagrams: 03/31/21 08:16 03/31/21 08:16 Labs: Lab Results 03/31/21 03/31/21 03/31/21 Range/Units 08:16 08:16 08:16 WBC 9.2 (4.8-10.8) X10*3/uL RBC 5.02 (4.60-5.80) X10*6/uL Hgb 15.5 (14.0-18.0) g/dl Hct 42.7 (42.0-52.0) % MCV 85.1 (80.0-98.0) fL MCH 30.9 (27.0-33.0) pg MCHC 36.3 H (31.0-36.0) g/dl RDW 11.8 (11.0-16.0) % Plt Count 226 (160-400) X10*3/uL MPV 9.6 (9.4-12.4) fL Immature Gran % (Auto) 0.1 (0.0-0.4) % Neut % (Auto) 65.9 (45-73) % Lymph % (Auto) 22.3 (20-40) % [place] % (Auto) 10.6 (2-11) % Eos % (Auto) 0.6 (0-4) % Baso % (Auto) 0.5 (0-2) % Lymph # (Auto) 2.1 (1.2-4.9) X10*3/uL [place] # (Auto) 1.0 (0.1-1.2) X10*3/uL Eos # (Auto) 0.1 (0.0-0.4) X10*3/uL Baso # (Auto) 0.1 (0.0-0.2) X10*3/uL Abs Immat Gran (auto) 0.01 (0.00-0.03) X10*3/uL Absolute Neuts (auto) 6.08 (2.0-8.3) x10*3/uL Absolute Nucleated RBC 0.000 (0.0-0.012) X10*3/uL Nucleated RBC % (auto) 0.0 (0.0-0.2) /100WBC Sodium 137 (135-145) mmol/L Potassium 3.4 (3.3-5.1) mmol/L Chloride 100 (96-108) mmol/L Carbon Dioxide 21 L (22-29) mmol/L Anion Gap 19 (12-20) BUN 17 H (9-16) mg/dL Creatinine 1.01 (0.5-1.4) mg/dL Estim Creat Clear Calc 98.7 Estimated GFR > 60 Random Glucose 109 (60-115) mg/dL Calcium 9.6 (8.4-10.2) mg/dL Total Bilirubin 0.7 (0.0-1.0) mg/dL Direct Bilirubin 0.3 (0.0-0.5) mg/dL AST 30 D (5-37) U/L ALT 79 H (0-40) U/L Alkaline Phosphatase 52 (39-117) U/L Total Protein 8.1 H (6.5-8.0) g/dL Albumin 4.9 (3.5-5.0) g/dL Ethyl Alcohol < 10 mg/dL Discharge Plan Discharge Clinical Impression: Alcohol withdrawal syndrome Qualifiers: Complication of substance-induced condition: uncomplicated Qualified Code(s): F10.230 - Alcohol dependence with withdrawal, uncomplicated Patient Disposition: Home, Self-Care Instructions: Alcohol Withdrawal (ED) Prescriptions: No Action clonidine HCl 0.1 mg tablet 1 tab PO QAM RF: 0 trazodone 50 mg tablet 1 tab PO BEDTIME RF: 0 risperidone 0.25 mg tablet 1 tab PO BID RF: 0 amlodipine 5 mg tablet 1 tab PO BID RF: 0 clonidine HCl 0.2 mg tablet 1 tab PO BEDTIME RF: 0 buspirone 30 mg tablet 1 tab PO BID RF: 0 fluoxetine 10 mg capsule 1 cap PO DAILY RF: 0 folic acid 1 mg tablet 1 tab PO DAILY RF: 0 mirtazapine 7.5 mg tablet 1 tab PO BEDTIME RF: 0 acamprosate 333 mg tablet,delayed release (DR/EC) 2 tab PO TID RF: 0 Referrals: Cristóbal Abraham MD [Primary Care Provider] - 2 days
[2021-03-31] MEDS: 0.9 % Sodium Chloride 1,000 ML 999 ML IVCONT ×2 (08:17→09:14)
[2021-03-31] MEDS: LORazepam 2 MG/ML VIAL 1 MG IVPUSH (08:22)
[2021-03-31] MEDS: ondansetron HCL 4 MG/2 ML VIAL IVPUSH (08:22)
[2021-03-31 08:23] VITALS: BP 147/93; PULSE 104; RESP 17; O2SAT 96
[2021-03-31 08:23] LABS: MANUAL DIFF FLAG NO
[2021-03-31 08:29] LABS: Basophils Absolute Auto 0.1 X10*3/uL (0.0-0.2); Basophils Percent Auto 0.5 % (0-2); Eosinophils Absolute Auto 0.1 X10*3/uL (0.0-0.4); Eosinophils Percent Auto 0.6 % (0-4); Hematocrit 42.7 % (42.0-52.0); Hemoglobin 15.5 g/dl (14.0-18.0); Imm Gran Abs Auto 0.01 X10*3/uL (0.00-0.03); Imm Gran Pct Auto 0.1 % (0.0-0.4); Lymphocytes Absolute Auto 2.1 X10*3/uL (1.2-4.9); Lymphocytes Percent Auto 22.3 % (20-40); Mean Corpuscular HGB Conc 36.3 g/dl (31.0-36.0); Mean Corpuscular Hemoglobin 30.9 pg (27.0-33.0); Mean Corpuscular Volume 85.1 fL (80.0-98.0); Mean Platelet Volume 9.6 fL (9.4-12.4); Monocytes Percent Auto 10.6 % (2-11); Neutrophils Absolute Auto 6.08 x10*3/uL (2.0-8.3); Neutrophils Percent Auto 65.9 % (45-73); Platelet Count 226 X10*3/uL (160-400); Red Blood Count 5.02 X10*6/uL (4.60-5.80); Red Cell Distribution Width 11.8 % (11.0-16.0); White Blood Count 9.2 X10*3/uL (4.8-10.8)
[2021-03-31 08:42] LABS: Ethanol < 10 mg/dL
[2021-03-31 08:46] LABS: Alanine Aminotransferase 79 U/L (0-40); Albumin Level 4.9 g/dL (3.5-5.0); Alkaline Phosphatase 52 U/L (39-117); Anion Gap 19 (12-20); Aspartate Amino Transferase 30 U/L (5-37); Bilirubin Direct 0.3 mg/dL (0.0-0.5); Bilirubin Total 0.7 mg/dL (0.0-1.0); Blood Urea Nitrogen 17 mg/dL (9-16); Calcium 9.6 mg/dL (8.4-10.2); Carbon Dioxide 21 mmol/L (22-29); Chloride 100 mmol/L (96-108); Creatinine Clr Calc Pharmacy 98.7; Estimated Glomerular Filt Rate > 60; Glucose Random 109 mg/dL (60-115); Potassium 3.4 mmol/L (3.3-5.1); Sodium 137 mmol/L (135-145); Total Protein 8.1 g/dL (6.5-8.0)
[2021-03-31 09:10] VITALS: BP 130/73; PULSE 101; RESP 15; O2SAT 95
--- NOTE | 2021-03-31 09:53 | MHC.RECOVSUP ---
Recovery Support note: Patient is a 35 year old [place] speaking male who presented to [facility] ED due to alcohol withdrawal. Patient is known to this caption writer from previous consultation. Patient reports experiencing significant anxiety after work on Thursday and that he started drinking due to the anxiety. Patient states it was a really low, low . Patient reports I don't know what else to do. Patient has been to detox several times and reports that he does not find this form of treatment helpful. Patient reports he would like to be admitted psychiatrically, stating he does not feel his prescribed psychiatric medications regulate the highs and lows that he is experiencing. Discussed case with CARE Team. Plan to re-evaluate patient once his symptoms of alcohol withdrawal are managed.
[2021-03-31 12:22] VITALS: BP 158/113; PULSE 113; RESP 20; TEMP 36.9; O2SAT 97
--- NOTE | 2021-03-31 13:06 | MHC.CARE ---
CARE Team spoke with patient in the ED, 6H. He was sitting up on the side of the bed, alert and oriented, pleasant. Stated that he has spoken to the intake team at the detox facility [facility] in [place], [place], they are considering him for admission and will follow up with him directly. Patient said they have a range of psychiatric services there and he will take advantage of the opportunities this time. Denied suicidal ideation, said he just wants help. Has called his father for a ride home to pack and wait for detox to call him back. RN Updated.
== END 2021-03-31 12:26 | disposition home or self-care (01) ==
PROVIDERS: Emergency Provider Emergency Medicine; PCP Internal Medicine
DX: F10.230 Alcohol dependence with withdrawal, uncomplicated (principal); Y90.0 Blood alcohol level of less than 20 mg/100 ml; F33.2 Major depressive disorder, recurrent severe without psychotic features; Z79.899 Other long term (current) drug therapy
CPT/HCPCS: 36415; 80048; 80076; 82077; 85025; 96361; 96374; 96375; 99284; J2060; J2405

== ENCOUNTER 2021-07-21 20:35 | Emergency (ER) | payer OTHER, SELFPAY ==
--- NOTE | 2021-07-21 20:53 | ED.ALCOHOL ---
HPI - Alcohol General Chief Complaint: ETOH/Substance Use Stated Complaint: etoh Time Seen by Provider: 07/21/21 20:53 Source: patient Mode of arrival: EMS Limitations: no limitations History of Present Illness HPI narrative: Patient history of alcohol abuse was just released from [facility] went home had more few more drinks family called ambulance as while he was talking to the father on the phone patient stopped talking. On EMS arrival patient lying on the floor no signs of significant injury Related Data Home Medications Medication Instructions Recorded Confirmed acamprosate 333 mg tablet,delayed 2 tab PO TID 03/22/21 03/22/21 release amlodipine 5 mg tablet 1 tab PO BID 03/22/21 03/22/21 buspirone 30 mg tablet 1 tab PO BID 03/22/21 03/22/21 clonidine HCl 0.1 mg tablet 1 tab PO QAM 03/22/21 03/22/21 clonidine HCl 0.2 mg tablet 1 tab PO BEDTIME 03/22/21 03/22/21 fluoxetine 10 mg capsule 1 cap PO DAILY 03/22/21 03/22/21 folic acid 1 mg tablet 1 tab PO DAILY 03/22/21 03/22/21 mirtazapine 7.5 mg tablet 1 tab PO BEDTIME 03/22/21 03/22/21 risperidone 0.25 mg tablet 1 tab PO BID 03/22/21 03/22/21 trazodone 50 mg tablet 1 tab PO BEDTIME 03/22/21 03/22/21 Allergies Allergy/AdvReac Type Severity Reaction Status Date / Time No Known Allergies Allergy Unknown UNKNOWN Verified 11/29/20 10:25 [NO KNOWN ALLERGIES] Review of Systems Review of Systems: Yes all other systems are reviewed and are negative [facility] Past Medical History Medical History Anxiety and depression ETOH abuse Hypertension Psychiatric disturbance Social History Social History Household Members: None Housing: House Do you presently have visiting nurse or other home services: No Alcohol intake: current Alcohol intake frequency: 3 or more drinks per day Patient Tobacco Use Status: Never used Tobacco e-Cigarette/Vaping Use: Never Used Second Hand Smoke Exposure: No Advance Directives: No Advance Directives Information Provided: No service: No Sexual orientation: Straight/Heterosexual Physical Exam ED Vital Signs: Vital Signs - 24 hr 07/21/21 20:58 Pulse Rate 113 H Blood Pressure 125/88 Pulse Oximetry 98 BMI result Body Mass Index 24.5 Appearance: Alert. Oriented X3. No acute distress. ETOH+ Eyes: PERRLA, No Nystagmus ENT: Pharynx normal. Oral Mucosa moist atraumatic normocephalic Neck: Normal inspection. Neck supple. CVS: Normal heart rate and rhythm. Pulses normal. Respiratory: No respiratory distress. Equal air entry bilateral, no wheezing/rales/rhonchi Abdomen: Soft and nontender. Bowel sounds are present, no mass palpable, no CVA tenderness Skin: Skin warm and dry. Normal skin color. Normal skin turgor. Extremities: No lower extremity edema. No calf tenderness Neuro: Oriented X 3. No motor deficit. No sensory deficit.No cerebellar signs , cranial nerves II-XII intact MDM - Alcohol MDM Narrative Medical decision making narrative: Patient refused lab workup or detox placement family came and took the patient home patient ambulatory in his steady gait Discharge Plan Discharge Clinical Impression: Alcoholic intoxication Patient Disposition: Home, Self-Care Instructions: Abuse of Alcohol (ED) Additional Instructions: Stop drinking alcohol and follow up with detox Prescriptions: No Action clonidine HCl 0.1 mg tablet 1 tab PO QAM 0RF trazodone 50 mg tablet 1 tab PO BEDTIME 0RF risperidone 0.25 mg tablet 1 tab PO BID 0RF amlodipine 5 mg tablet 1 tab PO BID 0RF clonidine HCl 0.2 mg tablet 1 tab PO BEDTIME 0RF buspirone 30 mg tablet 1 tab PO BID 0RF fluoxetine 10 mg capsule 1 cap PO DAILY 0RF folic acid 1 mg tablet 1 tab PO DAILY 0RF mirtazapine 7.5 mg tablet 1 tab PO BEDTIME 0RF acamprosate 333 mg tablet,delayed release (DR/EC) 2 tab PO TID 0RF Interventions: ED Discharge Assessment Last Done: 07/21/21 22:06 Discharge Date/Time: 07/21/21 22:07
[2021-07-21 20:58] VITALS: BP 125/88; BP 130/82; PULSE 113; O2SAT 97; O2SAT 98; BMI 24.5
== END 2021-07-21 22:07 | disposition home or self-care (01) ==
PROVIDERS: Emergency Provider Internal Medicine; PCP Surgery Vascular Surgery
DX: F10.129 Alcohol abuse with intoxication, unspecified (principal); Y90.9 Presence of alcohol in blood, level not specified; Z79.899 Other long term (current) drug therapy
CPT/HCPCS: 99283

== ENCOUNTER 2021-07-22 18:24 | Emergency (ER) | payer OTHER, SELFPAY ==
--- NOTE | 2021-07-22 19:09 | ED.PSYCH ---
HPI - Psych General Chief Complaint: ETOH/Substance Use Stated Complaint: S/I SECT 12 Time Seen by Provider: 07/22/21 19:09 Source: patient Mode of arrival: EMS Limitations: no limitations History of Present Illness HPI Narrative: Patient history of alcohol abuse depression suicidal ideation in the past was seen here yesterday been well known to our facility comes back here again as while talking to his father on for he said that he will turn his jeep into a tree but he was not serious about Related Data Home Medications Medication Instructions Recorded Confirmed acamprosate 333 mg tablet,delayed 2 tab PO TID 03/22/21 03/22/21 release amlodipine 5 mg tablet 1 tab PO BID 03/22/21 03/22/21 buspirone 30 mg tablet 1 tab PO BID 03/22/21 03/22/21 clonidine HCl 0.1 mg tablet 1 tab PO QAM 03/22/21 03/22/21 clonidine HCl 0.2 mg tablet 1 tab PO BEDTIME 03/22/21 03/22/21 fluoxetine 10 mg capsule 1 cap PO DAILY 03/22/21 03/22/21 folic acid 1 mg tablet 1 tab PO DAILY 03/22/21 03/22/21 mirtazapine 7.5 mg tablet 1 tab PO BEDTIME 03/22/21 03/22/21 risperidone 0.25 mg tablet 1 tab PO BID 03/22/21 03/22/21 trazodone 50 mg tablet 1 tab PO BEDTIME 03/22/21 03/22/21 Allergies Allergy/AdvReac Type Severity Reaction Status Date / Time No Known Allergies Allergy Unknown UNKNOWN Verified 11/29/20 10:25 [NO KNOWN ALLERGIES] Review of Systems Review of Systems: Yes all other systems are reviewed and are negative PMFSH Past Medical History Medical History Anxiety and depression ETOH abuse Hypertension Psychiatric disturbance Social History Social History Household Members: None Housing: House Do you presently have visiting nurse or other home services: No Alcohol intake: current Alcohol intake frequency: 3 or more drinks per day Patient Tobacco Use Status: Never used Tobacco e-Cigarette/Vaping Use: Never Used Second Hand Smoke Exposure: No Advance Directives: No Advance Directives Information Provided: No service: No Sexual orientation: Straight/Heterosexual Physical Exam Vital Signs: Vital Signs: Last Vital Signs Temp 97.8 F 07/22/21 20:56 Pulse 99 07/22/21 20:56 Resp 14 07/22/21 20:56 BP 120/69 07/22/21 20:56 Pulse Ox 95 07/22/21 20:56 BMI result Body Mass Index 26.6 Appearance: Alert. Oriented X3. No acute distress intoxicated Eyes: PERRLA, No Nystagmus ENT: Pharynx normal. Oral Mucosa moist Neck: Normal inspection. Neck supple. CVS: Normal heart rate and rhythm. Pulses normal. Respiratory: No respiratory distress. Equal air entry bilateral, no wheezing/rales/rhonchi Abdomen: Soft and nontender. Bowel sounds are present, no mass palpable, no CVA tenderness Skin: Skin warm and dry. Normal skin color. Normal skin turgor. Extremities: No lower extremity edema. No calf tenderness psych: Mood stable patient denied any significant depression or suicidal ideation Neuro: Oriented X 3. No motor deficit. No sensory deficit.No cerebellar signs , cranial nerves II-XII intact MDM - Psych MDM Narrative Medical decision making narrative: Patient seen by therapist decided to discharge patient home follow up as outpatient Medical Records Attestation: I reviewed the patient's medical records. Lab Data Attestation: I reviewed the patient's lab results. Result diagrams: 07/22/21 19:32 07/22/21 19:32 Labs: Lab Results 07/22/21 07/22/21 07/22/21 Range/Units 19:32 19:32 19:32 WBC 7.4 (4.8-10.8) X10*3/uL RBC 5.35 (4.60-5.80) X10*6/uL Hgb 15.9 (14.0-18.0) g/dl Hct 46.1 (42.0-52.0) % MCV 86.2 (80.0-98.0) fL MCH 29.7 (27.0-33.0) pg MCHC 34.5 (31.0-36.0) g/dl RDW 12.0 (11.0-16.0) % Plt Count 132 L D (160-400) X10*3/uL MPV 10.0 (9.4-12.4) fL Immature Gran % (Auto) 0.3 (0.0-0.4) % Neut % (Auto) 61.0 (45-73) % Lymph % (Auto) 28.8 (20-40) % [place] % (Auto) 8.8 (2-11) % Eos % (Auto) 0.7 (0-4) % Baso % (Auto) 0.4 (0-2) % Lymph # (Auto) 2.1 (1.2-4.9) X10*3/uL [place] # (Auto) 0.7 (0.1-1.2) X10*3/uL Eos # (Auto) 0.1 (0.0-0.4) X10*3/uL Baso # (Auto) 0.0 (0.0-0.2) X10*3/uL Abs Immat Gran (auto) 0.02 (0.00-0.03) X10*3/uL Absolute Neuts (auto) 4.5 (2.0-8.3) x10*3/uL Absolute Nucleated RBC 0.000 (0.0-0.012) X10*3/uL Nucleated RBC % (auto) 0.0 (0.0-0.2) /100WBC Smear Tech's Comments VERIFIED Sodium 140 (135-145) mmol/L Potassium 4.0 (3.3-5.1) mmol/L Chloride 103 (96-108) mmol/L Carbon Dioxide 25 (22-29) mmol/L Anion Gap 16 (12-20) BUN 9 (9-16) mg/dL Creatinine 0.85 (0.5-1.4) mg/dL Estim Creat Clear Calc 117.3 Estimated GFR > 60 Random Glucose 75 (60-115) mg/dL Calcium 10.3 H D (8.4-10.2) mg/dL Magnesium 2.3 (1.6-2.6) mg/dL Total Bilirubin 0.6 (0.0-1.0) mg/dL AST 159 H (5-37) U/L ALT 359 H (0-40) U/L Alkaline Phosphatase 64 D (39-117) U/L Total Protein 8.8 H (6.5-8.0) g/dL Albumin 5.3 H (3.5-5.0) g/dL Urine Opiates Screen (Not Detect) Urine Fentanyl Screen (Not Detect) Ur Barbiturates Screen (Not Detect) Ur Phencyclidine Scrn (Not Detect) Ur Amphetamines Screen (Not Detect) U Benzodiazepines Scrn (Not Detect) Urine Cocaine Screen (Not Detect) U Marijuana (THC) Screen (Not Detect) Ethyl Alcohol mg/dL COVID-19 (LUCI) Negative (Negative) COVID-19 Clin Com See Note 07/22/21 07/22/21 Range/Units 19:32 19:32 WBC (4.8-10.8) X10*3/uL RBC (4.60-5.80) X10*6/uL Hgb (14.0-18.0) g/dl Hct (42.0-52.0) % MCV (80.0-98.0) fL MCH (27.0-33.0) pg MCHC (31.0-36.0) g/dl RDW (11.0-16.0) % Plt Count (160-400) X10*3/uL MPV (9.4-12.4) fL Immature Gran % (Auto) (0.0-0.4) % Neut % (Auto) (45-73) % Lymph % (Auto) (20-40) % [place] % (Auto) (2-11) % Eos % (Auto) (0-4) % Baso % (Auto) (0-2) % Lymph # (Auto) (1.2-4.9) X10*3/uL [place] # (Auto) (0.1-1.2) X10*3/uL Eos # (Auto) (0.0-0.4) X10*3/uL Baso # (Auto) (0.0-0.2) X10*3/uL Abs Immat Gran (auto) (0.00-0.03) X10*3/uL Absolute Neuts (auto) (2.0-8.3) x10*3/uL Absolute Nucleated RBC (0.0-0.012) X10*3/uL Nucleated RBC % (auto) (0.0-0.2) /100WBC Smear Tech's Comments Sodium (135-145) mmol/L Potassium (3.3-5.1) mmol/L Chloride (96-108) mmol/L Carbon Dioxide (22-29) mmol/L Anion Gap (12-20) BUN (9-16) mg/dL Creatinine (0.5-1.4) mg/dL Estim Creat Clear Calc Estimated GFR Random Glucose (60-115) mg/dL Calcium (8.4-10.2) mg/dL Magnesium (1.6-2.6) mg/dL Total Bilirubin (0.0-1.0) mg/dL AST (5-37) U/L ALT (0-40) U/L Alkaline Phosphatase (39-117) U/L Total Protein (6.5-8.0) g/dL Albumin (3.5-5.0) g/dL Urine Opiates Screen Not Detected (Not Detect) Urine Fentanyl Screen Not Detected (Not Detect) Ur Barbiturates Screen POSITIVE H (Not Detect) Ur Phencyclidine Scrn Not Detected (Not Detect) Ur Amphetamines Screen Not Detected (Not Detect) U Benzodiazepines Scrn POSITIVE H (Not Detect) Urine Cocaine Screen Not Detected (Not Detect) U Marijuana (THC) Screen Not Detected (Not Detect) Ethyl Alcohol 176 mg/dL COVID-19 (LUCI) (Negative) COVID-19 Clin Com Discharge Plan Discharge Clinical Impression: Alcoholic intoxication Patient Disposition: Home, Self-Care Instructions: Abuse of Alcohol (ED) Additional Instructions: Stop drinking alcohol and follow with detox Prescriptions: No Action clonidine HCl 0.1 mg tablet 1 tab PO QAM 0RF trazodone 50 mg tablet 1 tab PO BEDTIME 0RF risperidone 0.25 mg tablet 1 tab PO BID 0RF amlodipine 5 mg tablet 1 tab PO BID 0RF clonidine HCl 0.2 mg tablet 1 tab PO BEDTIME 0RF buspirone 30 mg tablet 1 tab PO BID 0RF fluoxetine 10 mg capsule 1 cap PO DAILY 0RF folic acid 1 mg tablet 1 tab PO DAILY 0RF mirtazapine 7.5 mg tablet 1 tab PO BEDTIME 0RF acamprosate 333 mg tablet,delayed release (DR/EC) 2 tab PO TID 0RF
[2021-07-22 19:12] VITALS: BP 132/90; PULSE 106; RESP 20; TEMP 36.6; O2SAT 97; BMI 26.6
[2021-07-22 19:38] LABS: Basophils Percent Auto 0.4 % (0-2); Hemoglobin 15.9 g/dl (14.0-18.0); Imm Gran Abs Auto 0.02 X10*3/uL (0.00-0.03); Imm Gran Pct Auto 0.3 % (0.0-0.4); MANUAL DIFF FLAG SCAN; PLT CLUMP 1; SCAN SMEAR FLAG 1
[2021-07-22 19:40] LABS: Eosinophils Absolute Auto 0.1 X10*3/uL (0.0-0.4); Eosinophils Percent Auto 0.7 % (0-4); Hematocrit 46.1 % (42.0-52.0); Lymphocytes Absolute Auto 2.1 X10*3/uL (1.2-4.9); Lymphocytes Percent Auto 28.8 % (20-40); Mean Corpuscular HGB Conc 34.5 g/dl (31.0-36.0); Mean Corpuscular Hemoglobin 29.7 pg (27.0-33.0); Mean Corpuscular Volume 86.2 fL (80.0-98.0); Monocytes Absolute Auto 0.7 X10*3/uL (0.1-1.2); Monocytes Percent Auto 8.8 % (2-11); Neutrophils Absolute Auto 4.5 x10*3/uL (2.0-8.3); Red Blood Count 5.35 X10*6/uL (4.60-5.80)
--- NOTE | 2021-07-22 19:50 | MHC.CARE ---
CARE team aware of pt in ED. This development writer checked in with pt shortly after he arrived to the ED via ambulance on a Sect 12 by Lucian LAWSON. Pt's father called EMS stating that the pt made a suicidal statement that he was going to drive his car into a tree. Pt initially denied having made any suicidal statements to his father, however when asked why his father thought that he was suicidal, pt reported that he was upset with his father and stated I'm just going to drive my Jeep into a tree. Pt is known to the CARE team from past ED visits and hospitalizations associated with alcohol use and depression. Pt endorsed alcohol use prior to arrival. Plan will be for lab draws, including ethanol level, and when pt is clinically appropriate for evaluation CARE team will return.
[2021-07-22 19:52] LABS: COVID-19 Test Negative (Negative)
[2021-07-22 19:54] LABS: Ethanol 176 mg/dL
[2021-07-22 19:58] LABS: Amphetamine Screen Urine Not Detected (Not Detect); Barbiturates, Urine POSITIVE (Not Detect); Benzodiazepines Screen Urine POSITIVE (Not Detect); Cannabinoid Screen Urine Not Detected (Not Detect); Cocaine Screen Urine Not Detected (Not Detect); Fentanyl, urine Not Detected (Not Detect); Opiate Screen Urine Not Detected (Not Detect); Phencyclidine Screen Urine Not Detected (Not Detect)
[2021-07-22 20:02] LABS: Platelet Count 132 X10*3/uL (160-400); White Blood Count 7.4 X10*3/uL (4.8-10.8)
[2021-07-22 20:03] LABS: SLIDE REVIEW VERIFIED
[2021-07-22 20:06] LABS: Alanine Aminotransferase 359 U/L (0-40); Albumin Level 5.3 g/dL (3.5-5.0); Alkaline Phosphatase 64 U/L (39-117); Anion Gap 16 (12-20); Aspartate Amino Transferase 159 U/L (5-37); Bilirubin Total 0.6 mg/dL (0.0-1.0); Blood Urea Nitrogen 9 mg/dL (9-16); Calcium 10.3 mg/dL (8.4-10.2); Carbon Dioxide 25 mmol/L (22-29); Chloride 103 mmol/L (96-108); Creatinine Clr Calc Pharmacy 117.3; Estimated Glomerular Filt Rate > 60; Glucose Random 75 mg/dL (60-115); Magnesium 2.3 mg/dL (1.6-2.6); Sodium 140 mmol/L (135-145); Total Protein 8.8 g/dL (6.5-8.0)
[2021-07-22 20:56] VITALS: BP 120/69; PULSE 99; RESP 14; TEMP 36.6; O2SAT 95
[2021-07-22] MEDS: Folic Acid 1 MG TABLET PO (22:53)
[2021-07-22] MEDS: Thiamine HCL 100 MG TABLET PO (22:53)
--- NOTE | 2021-07-23 00:21 | MHC.CARE ---
Evaluated by CARE team. Cleared for discharge home. Pt reported that he is planning to contact [facility] in the morning re: being admitted for detox/rehab. Lyft was ordered and pt was discharged from the ED without issue.
== END 2021-07-22 22:57 | disposition home or self-care (01) ==
PROVIDERS: Emergency Provider Internal Medicine
DX: F10.129 Alcohol abuse with intoxication, unspecified (principal); Y90.6 Blood alcohol level of 120-199 mg/100 ml; F33.1 Major depressive disorder, recurrent, moderate; Z91.51 Personal history of suicidal behavior; Z79.899 Other long term (current) drug therapy; Z20.822 Contact with and (suspected) exposure to COVID-19
CPT/HCPCS: 36415; 80053; 80307; 82077; 83735; 85025; 87635; 99283

== ENCOUNTER → 2021-09-19 10:33 | Outpatient (BNVA) | payer OTHER, SELFPAY | PROVIDERS: Visit Provider Nurse Practitioner Psychiatric/Mental Health | DX: Z51.81 Encounter for therapeutic drug level monitoring (principal); F10.20 Alcohol dependence, uncomplicated | CPT/HCPCS: 80305 ==

== ENCOUNTER 2021-12-03 11:21 | Emergency (ER) | payer OTHER, SELFPAY ==
[2021-12-03] VITALS (7 sets, daily range): BP systolic 104–174; BP diastolic 66–133; PULSE 100–121; RESP 14–18; TEMP 36.5–36.9; O2SAT 93–97; BMI 25.7
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
--- NOTE | 2021-12-03 11:50 | ECG_ITS ---
Test Reason : TACHYCARDIA Blood Pressure : / mmHG Vent. Rate : 095 BPM Atrial Rate : 095 BPM P-R Int : 154 ms QRS Dur : 088 ms QT Int : 358 ms P-R-T Axes : 052 017 030 degrees QTc Int : 449 ms Normal sinus rhythm Normal ECG When compared with ECG of 03-JAN-2021 10:37, Vent. rate has increased BY 45 BPM QT has lengthened Referred By: Iris Hoffman Electronically Signed By:Librado Chanel
[2021-12-03] MEDS: Thiamine HCL 200 MG in 0.9 % Sodium Chloride 100 ML 204 MG IV (11:53)
[2021-12-03] MEDS: amLODIPine Besylate 5 MG TABLET PO (11:54)
[2021-12-03] MEDS: Omeprazole 20 MG CAPSULE.DR PO (11:55)
[2021-12-03] MEDS: diazePAM 10 MG/2 ML CARTRIDGE 5 MG IVPUSH (11:55)
[2021-12-03] MEDS: ondansetron HCL 4 MG/2 ML VIAL IVPUSH (11:55)
[2021-12-03] MEDS: 0.9 % Sodium Chloride 1,000 ML 999 ML IV (11:56)
[2021-12-03] MEDS: cloNIDine HCL 0.1 MG TABLET PO (12:00)
[2021-12-03] MEDS: Magnesium Sulfate/H2O 2 GM/50 ML PIGGYBACK IV (12:00)
[2021-12-03 12:09] LABS: MANUAL DIFF FLAG NO
[2021-12-03 12:14] LABS: Basophils Absolute Auto 0.1 X10*3/uL (0.0-0.2); Eosinophils Percent Auto 0.7 % (0-4); Hematocrit 45.4 % (42.0-52.0); Imm Gran Abs Auto 0.02 X10*3/uL (0.00-0.03); Imm Gran Pct Auto 0.3 % (0.0-0.4); Lymphocytes Absolute Auto 1.7 X10*3/uL (1.2-4.9); Lymphocytes Percent Auto 27.7 % (20-40); Mean Corpuscular HGB Conc 35.2 g/dl (31.0-36.0); Mean Corpuscular Hemoglobin 30.9 pg (27.0-33.0); Mean Corpuscular Volume 87.6 fL (80.0-98.0); Mean Platelet Volume 9.3 fL (9.4-12.4); Monocytes Absolute Auto 0.6 X10*3/uL (0.1-1.2); Monocytes Percent Auto 9.2 % (2-11); Neutrophils Absolute Auto 3.6 x10*3/uL (2.0-8.3); Neutrophils Percent Auto 61.1 % (45-73); Platelet Count 179 X10*3/uL (160-400); Red Blood Count 5.18 X10*6/uL (4.60-5.80); Red Cell Distribution Width 11.9 % (11.0-16.0)
[2021-12-03 12:34] LABS: COVID-19 Test Negative (Negative); IDNOW Serial# 16C4AD1C
[2021-12-03 12:48] LABS: Alanine Aminotransferase 35 U/L (0-40); Albumin Level 4.7 g/dL (3.5-5.0); Alkaline Phosphatase 72 U/L (39-117); Anion Gap 20 (12-20); Aspartate Amino Transferase 44 U/L (5-37); Bilirubin Direct < 0.2 mg/dL (0.0-0.5); Bilirubin Total 0.3 mg/dL (0.0-1.0); Blood Urea Nitrogen 11 mg/dL (9-16); Calcium 8.4 mg/dL (8.4-10.2); Carbon Dioxide 24 mmol/L (22-29); Chloride 102 mmol/L (96-108); Estimated Glomerular Filt Rate > 60; Ethanol 351 mg/dL; Glucose Random 106 mg/dL (60-115); Lipase 40 U/L (8-78); Magnesium 2.1 mg/dL (1.6-2.6); Potassium 3.6 mmol/L (3.3-5.1); Sodium 142 mmol/L (135-145); Total Protein 7.7 g/dL (6.5-8.0)
[2021-12-03] MEDS: LORazepam 1 MG TABLET 2 MG PO ×3 (14:23→21:01)
[2021-12-03 14:49] LABS: Amphetamine Screen Urine Not Detected (Not Detect); Barbiturates, Urine Not Detected (Not Detect); Benzodiazepines Screen Urine Not Detected (Not Detect); Cannabinoid Screen Urine Not Detected (Not Detect); Cocaine Screen Urine Not Detected (Not Detect); Fentanyl, urine Not Detected (Not Detect); Opiate Screen Urine Not Detected (Not Detect); Phencyclidine Screen Urine Not Detected (Not Detect)
--- NOTE | 2021-12-03 14:49 | MHC.RECOVRN ---
Met with pt in ED10 to discuss substance use. Pt reports recent admission to [facility], discharged at the end of October. Pt reports drinking vodka, unknown amount, since 11/28. Pt reports desire to have stayed longer at [facility], however, insurance would not cover (per pt). Pt denies other substances. When asked about returning to [facility], pt states I don't want to face them. Pt unsure if he would like to return to [facility]. At this time, pt tearful, states I've been in this cycle for a year and I just don't know what to do. Pt requesting to speak to CARE Team, pt states I wouldn't say I'm suicidal but I don't feel safe going home. Discussed with provider as well as Vania CARE Legal Specialist.
[2021-12-03] MEDS: LORazepam 1 MG TABLET PO (18:50)
--- NOTE | 2021-12-03 22:46 | MHC.CARE ---
CARE team met with pt to assess pt's level of risk for harm to himself and others. Pt is a 35 year old single, white, Gabonese speaking, cisgender male who is well known to the CARE team and this video game script writer. He arrived by ambulance after his father called for him to be transported to the hospital due to his heavy alcohol use since last . Pt had been sober for approximately 5 weeks after staying at [facility] for 3 weeks and sustaining 2 weeks of sobriety after he returned home. Pt demonstrated some insight, stating that he thinks he was feeling stressed and overwhelmed with the financial burden of being out of work for 3 week intervals, on and off, for the past year or so. He reported that he has a therapist at [facility] ([facility]) and that he is on the waitlist for a medication prescriber there. He still goes to the [facility] clinic for vivitrol injections and campral. Pt stated that the medications help when he actually takes them. He reported that he has been compliant with psychiatric medications as prescribed. Pt denied SI/HI/AVH and acknowledged that his biggest challenge at this time is related to his alcohol dependence. He asked if he could stay in the hospital for detox because of the good care he has received here, however this video game script writer iterated that the behavioral health department collaborates with agencies and entities outside of the hospital to ensure that good care is consistent when he make referrals for treatment. Pt was amenable to remaining in the ED overnight and speaking with the CARE/recovery team in the morning to discuss treatment options and discharge planning. ED provider and RN have been updated re: plan of care.
[2021-12-04 01:30] VITALS: BP 141/97; PULSE 17; RESP 17; TEMP 36.6; O2SAT 98
[2021-12-04] MEDS: LORazepam 1 MG TABLET 2 MG PO ×2 (01:34→08:19)
--- NOTE | 2021-12-04 06:22 | PC.NURSE ---
Patient slept through the night, no distress observed/reported, Ativan 2 mg po administered at 2101 and 0134 with + effect, medication compliant, per care team patient is detox bed search, care team and disaster recovery analyst will coordinate the bed search, behavior appropriate, VSS, will continue to monitor.
--- NOTE | 2021-12-04 07:24 | PC.NURSE ---
patient appears to remain asleep at present respirations are even and unlabored patient appears in no distress
[2021-12-04 08:14] VITALS: BP 155/96; PULSE 100; RESP 18; TEMP 36.7; O2SAT 98
[2021-12-04] MEDS: amLODIPine Besylate 5 MG TABLET PO (08:18)
[2021-12-04] MEDS: busPIRone HCl 10 MG TABLET 30 MG PO (08:19)
[2021-12-04] MEDS: Omeprazole 40 MG CAPSULE.DR PO (08:20)
--- NOTE | 2021-12-04 11:29 | MHC.RECOVSUP ---
? Reason for consult:Recovery Support o Current location:[facility] o Identified substance use concern:ETOH - Withdrawal - Seeking ATS (detox) - Support ? Intervention: o MAT started or to be started o o ? Plan: o Referral to CCC o Patient to follow up with [facility] after discharge ? Additional information:Discussed harm reduction, MAT, and detox with patient. Patient refuses to go to Detox from here. Patient called father and is trying to go to [facility].
== END 2021-12-04 11:40 | disposition home or self-care (01) ==
PROVIDERS: Emergency Provider Emergency Medicine
DX: F10.229 Alcohol dependence with intoxication, unspecified (principal); F33.1 Major depressive disorder, recurrent, moderate; R11.0 Nausea; Y90.8 Blood alcohol level of 240 mg/100 ml or more; Z20.822 Contact with and (suspected) exposure to COVID-19; Z79.899 Other long term (current) drug therapy
CPT/HCPCS: 80048; 80076; 80307; 82077; 83690; 83735; 85025; 87635; 93005; 99285; J2405; J3360; J3411; J3475

== ENCOUNTER 2022-01-28 15:27 | Emergency (ER) | payer OTHER, SELFPAY ==
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
[2022-01-28 15:35] VITALS: BP 154/96; PULSE 140; RESP 18; O2SAT 94; BMI 27.9
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
[2022-01-28 17:27] LABS: COVID-19 Test Negative (Negative)
[2022-01-28] MEDS: LORazepam 1 MG TABLET 2 MG PO (18:44)
[2022-01-28 18:45] VITALS: BP 138/96; PULSE 130; RESP 18; O2SAT 95
== END 2022-01-28 19:27 ==
PROVIDERS: Emergency Provider Emergency Medicine
DX: S91.312A Laceration without foreign body, left foot, initial encounter (principal); V47.5XXA Car driver injured in collision with fixed or stationary object in traffic accident, initial encounter; F10.220 Alcohol dependence with intoxication, uncomplicated; Y90.9 Presence of alcohol in blood, level not specified; Y93.89 Activity, other specified; Y92.014 Private driveway to single-family (private) house as the place of occurrence of the external cause; Y99.9 Unspecified external cause status; Z20.822 Contact with and (suspected) exposure to COVID-19
CPT/HCPCS: 12001; 70450; 72125; 87635; 99282; 99284

== ENCOUNTER 2022-06-28 15:12 | Inpatient (IN) | payer MEDICAID, SELFPAY ==
--- NOTE | 2022-06-28 | ECG_ITS ---
Test Reason : tachy Blood Pressure : / mmHG Vent. Rate : 119 BPM Atrial Rate : 119 BPM P-R Int : 154 ms QRS Dur : 078 ms QT Int : 330 ms P-R-T Axes : 045 000 028 degrees QTc Int : 464 ms Sinus tachycardia Otherwise normal EKG When compared with ECG of 03-DEC-2021 12:23, No significant change was found Referred By: Corinne Villanueva Electronically Signed By:WILBERTO SMILEY
[2022-06-28 15:30] VITALS: BP 170/110; PULSE 141; O2SAT 16
[2022-06-28 15:39] VITALS: BP 155/95; PULSE 130; RESP 18; O2SAT 95; BMI 28.2
--- NOTE | 2022-06-28 15:49 | MHC.EDTECH ---
PATIENT WAS HOOKED UP TO [facility]ILDING [facility] BY THIS PCT .
--- OUTSIDE RECORDS SUMMARY | 2022-06-28 15:49 | XMS_ITS | Continuity of Care Document ---
:1985 Author Organization [facility] Address [address] [place] [address]- Care Team Providers Name Role Phone Jarad SHAFFER, Cristóbal Sheth Primary Care Physician Encounter [facility] Date(s): 12/05/21 - 12/08/[address] [address]- Discharge Disposition: A-D/C Home Attending Physician: Elsie SHAFFER, Radha Avila Admitting Physician: Andreina SHAFFER, Shi Cameron Referring Physician: Not on Staff, Referring MD Allergies, Adverse Reactions, Alerts No Known Allergies Immunizations Given and Recorded Vaccine Date Status Refusal Reason SARS-CoV-2 (COVID-19) mRNA-1273 vaccine1 05/28/21 Recorde d SARS-CoV-2 (COVID-19) mRNA-1273 vaccine 09/27/20 Recorded SARS-CoV-2 (COVID-19) mRNA-1273 vaccine 08/30/20 Recorded influenza virus vaccine, inactivated2 04/17/21 Given influenza virus vaccine, inactivated 07/09/20 Given influenza virus vaccine, inactivated 04/20/19 Given influenza virus vaccine, inactivated3 03/10/17 Given hepatitis B adult vaccine 01/15/21 Given pneumococcal 13-valent vaccine4 01/11/21 Given Hepatitis A Adult Vaccine5 10/10/13 Given tetanus/diphtheria/pertussis, acel(Tdap) 09/13/12 Given FluLaval (oldterm) 04/16/10 Given tetanus-diphtheria toxoids (Td)6 04/29/04 Given 1Result Comment: [id number] Comment: [facility]# [address] THE [address] [phone] Comment: [03/10/2017] [facility] [phone] Comment: [facility]: [phone] Comment: [10/10/2013] #16Admin Note: historical data Medications acamprosate 333 mg oral delayed release tablet = 666 mg, By Mouth, 3 times a day with meals, # 180 tablet, 0 Refills, Maintenance, 09/17/21 9:37:00EDT, Tablet, [facility], Partial fill upon patient request if the prescription is for a schedule II opioid drug., 172, cm, 09/17/21 8:49:00 EDT,... Start Date: 09/17/21 Status: OrderedamLODIPine 5 mg oral tablet 5 mg, 1, tablet, By Mouth, Daily, PRN, Please resume amlodipine 5mg PO daily if BP > 140/90., # 30 tablet, Refills 0, Tot. Refills 0, Maintenance, Blood Pressure, 12/08/21 11:02:00 EDT, Do Not Route, Partial fill upon patient request if the prescripti... Start Date: 12/08/21 Stop Date: 01/07/22 Status: OrderedbusPIRone 30 mg oral tablet 1 tablet = 30 mg, By Mouth, 2 times a day, # 180 tablet, 0 Refills, Maintenance, 12/06/21 4:19:00 EDT, Tablet, Partial fill upon patient request if the prescription is for a schedule II opioid drug. Start Date: 12/06/21 Status: OrderedcloNIDine 0.1 mg oral tablet 0.1 mg, 1, tablet, By Mouth, Daily, is morning, Refills 0, Maintenance, 08/26/21 14:00:00 EDT, Partial fill upon patient request if the prescription is for a schedule II opioid drug. Start Date: 08/26/21 Status: OrderedcloNIDine 0.2 mg oral tablet 1, tablet, By Mouth, Daily at bedtime, # 30 tablet, Refills 5, Route to Pharmacy Electronically, [facility], 174, cm, 05/27/21 15:55:00 EST, Height, 82, kg, 05/04/21 12:35:00 EST, Dry Weight Start Date: 06/14/21 Status: OrderedFLUoxetine 20 mg oral capsule 40 mg, 2, capsule, By Mouth, Daily, # 60 capsule, Refills 0, Tot. Refills 0, Maintenance, 09/17/21 9:36:00 EDT, Route to Pharmacy Electronically, [facility], Partial fill upon patient request if the prescription is for a schedule II opioid drug.,... Start Date: 09/17/21 Status: Orderedfolic acid 1 mg oral tablet 1 mg, 1, tablet, By Mouth, Daily, # 30 tablet, Refills 0, Tot. Refills 0, Maintenance, 08/29/21 10:08:00 EDT, Route to Pharmacy Electronically, [facility], Partial fill upon patient request if theprescription is for a schedule II opioid drug., 1... Start Date: 08/29/21 Status: OrderedhydrOXYzine hydrochloride 50 mg oral tablet 1 tablet = 50 mg, By Mouth, 2 times a day, PRN for anxiety, # 60 tablet, 0 Refills, Acute 09/17/22 9:00:00 EDT, 09/17/21 9:38:00 EDT, Tablet, [facility], Partial fill upon patient request if the prescription is for a schedule II opioid drug., 172... Start Date: 09/17/21 Stop Date: 09/17/22 Status: OrderedLORazepam 1 mg oral tablet 1 tablet = 1 mg, By Mouth, 3 times a day, PRN Anxiety, for 14 days, # 42 tablet, 1 Refills, Acute 10/15/22 9:00:00 EDT, 09/17/22 9:00:00 EDT, Tablet, Partial fill upon patient request if the prescription is for a schedule II opioid drug. Start Date: 09/17/22 Stop Date: 10/15/22 Status: Orderedmelatonin 10 mg oral tablet 1 tablet = 10 mg, By Mouth, Daily at bedtime, PRN as needed for insomnia, 0 Refills, Maintenance, 08/26/21 14:01:00 EDT, Tablet, Partial fill upon patient request if the prescription is for a schedule II opioid drug. Start Date: 08/26/21 Status: Orderedmultivitamin Multiple Vitamins oral tablet 1 tablet, By Mouth, Daily, # 30 tablet, 0 Refills, Maintenance, 05/06/21 14:35:00 EST, Tablet, [facility], Partial fill upon patient request if the prescription is for a schedule II opioid drug., 1 tablet By Mouth Daily,x30 days, 174, cm, ... Start Date: 05/06/21 Stop Date: 06/05/21 Status: Orderednaltrexone 50 mg oral tablet 1 tablet = 50 mg, By Mouth, Daily, # 30 tablet, 0 Refills, Maintenance, 12/06/21 4:20:00 EDT, Tablet, Partial fill upon patient request if the prescription is for a schedule II opioid drug. Start Date: 12/06/21 Status: Orderedomeprazole 20 mg oral enteric coated capsule 1 capsule = 20 mg, By Mouth, 2 times a day, before a meal, 0 Refills, Maintenance, 09/17/21 9:47:00 EDT, EC Capsule, Partial fill upon patient request if the prescription is for a schedule II opioid drug. Start Date: 09/17/21 Status: OrderedPyridoxine Tablet 50 mg, By Mouth, Daily, Refills 0, Maintenance, 12/08/21 11:05:00 EDT, Partial fill upon patient request if the prescription is for a schedule II opioid drug. Start Date: 12/08/21 Status: Orderedthiamine 100 mg oral tablet 100 mg, 1, tablet, By Mouth, 2 times a day, Refills 0, Maintenance, 12/08/21 11:05:00 EDT, Partial fill upon patient request if the prescription is for a schedule II opioid drug. Start Date: 12/08/21 Status: OrderedtraZODone 50 mg oral tablet 1, tablet, By Mouth, Daily at bedtime, PRN, # 30 tablet, Refills 5, Tot. Refills 5, NEEDED FOR INSOMNIA, 09/17/21 9:37:00 EDT, Route to Pharmacy Electronically, [facility], 172, cm, 09/17/21 8:49:00 EDT, Height, 75, kg, 09/12/21 17:05:00 EDT,... Start Date: 09/17/21 Status: OrderedValium 5 mg oral tablet 2.5 mg, 0.5, tablet, By Mouth, Once, Please give valium 2.5 mg PO once at 21:00 pm ( 12/08/21), # 0.5tablet, Refills 0, Tot. Refills 0, Soft Stop, 12/08/21 11:03:00 EDT, Do Not Route, Partial fill uponpatient request if the prescription is for a sche... Start Date: 12/08/21 Status: Ordered Problem List Condition Effective Dates Status Health Status Informant Essential Hypertension(Confirmed)1, 2, Active 3 H/O herpes zoster(Confirmed)4 12/23/07 Active Hyperlipidemia(Confirmed) Active Impaired fasting glucose(Confirmed)5 Active Major depression in full Active remission(Confirmed) Fatty liver us 2020(Confirmed) Active 1urine catecholamines appear ccdlan0auzlrkjw renal artery kkwawf3e/o secondary risee1hbfgz T11 biczzgybbier4bjrahke pre diabetic increased risk diabetes Vital Signs Most recent to oldest 1 2 3 [Reference Range]: Height 172 cm 172 cm 172 cm (12/08/21 11:00 AM) (12/08/21 5:56 AM) (12/07/21 9:2 2 PM) Weight 72 kg (12/06/21 10:49 PM) Oxygen Saturation [94-100 %] 99 % 100 % 100 % (12/08/21 11:00 AM) (12/08/21 5:56 AM) (12/07/21 9:2 2 PM) Pulse Rate [55-90 bpm] 59 bpm 51 bpm 63 bpm (12/08/21 11:00 AM) *L* (12/07/21 9:22 PM) (12/08/21 5:56 AM) Body Mass Index [18.5-24.99] 24.34 (12/06/21 10:49 PM) Blood Pressure [90-138/55-84 mm 111/63 mm Hg 99/52 mm Hg 137/79 mm Hg Hg] (12/08/21 11:00 AM) (12/08/21 5:56 AM) (12/07/21 9:2 2 PM) Respiratory Rate [16-30 br/min] 16 br/min 18 br/min 18 br/min (12/08/21 11:00 AM) (12/08/21 5:56 AM) (12/07/21 9:2 2 PM) Temperature [96.8-100.4 DegF] 97.7 DegF 98.1 DegF 97 .6 DegF (12/08/21 11:00 AM) (12/08/21 5:56 AM) (12/07/21 9:2 2 PM) Mode of Delivery (Oxygen) Room air Room air Room a ir (12/08/21 11:00 AM) (12/08/21 5:56 AM) (12/07/21 9:2 2 PM) Blood pressure sites Arm, right Arm, right Arm, right (12/08/21 11:00 AM) (12/08/21 5:56 AM) (12/07/21 9:2 2 PM) Temperature Route Oral Oral Oral (12/08/21 11:00 AM) (12/08/21 5:56 AM) (12/07/21 9:2 2 PM) Dry Weight 72 kg (12/06/21 10:49 PM) Weight Obtained Via Bed scale (12/06/21 10:49 PM) Social History Social History Type Response Smoking Status Never (less than 100 in life time) entered on: 07/17/21 Sex
--- OUTSIDE RECORDS SUMMARY | 2022-06-28 15:49 | XMS_ITS | Continuity of Care Document ---
:1985 Author Organization [facility] Address [address] [place] [address]- Care Team Providers Name Role Phone Jarad SHAFFER, Cristóbal Sheth Primary Care Physician Encounter [facility] Date(s): 08/08/21 - 09/07/21 [facility] [address] [place] [address]- Allergies, Adverse Reactions, Alerts No Known Allergies [...] tetanus-diphtheria toxoids (Td)6 04/29/04 Given 1Result Comment: [id number] Comment: [facility]# [address] [phone] Comment: [03/10/2017] [facility] [phone] Comment: [facility]: [phone] Comment: [10/10/2013] #16Admin Note: historical data Medications amLODIPine 5 mg oral tablet 5 mg, 1, tablet, By Mouth, Daily, # 30 tablet, Refills 0, Tot. Refills 0, Maintenance, 07/21/21 7:40:00 EST, Do Not Route, new dose Start Date: 07/21/21 Stop Date: 08/20/21 Status: OrderedcloNIDine 0.1 mg oral tablet 0.1 mg, 1, tablet, By Mouth, Daily, is morning, Refills 0, Maintenance, 08/26/21 14:00:00 EDT, Partial fill upon patient request if the prescription is for a schedule II opioid drug. Start Date: 08/26/21 Status: OrderedcloNIDine 0.2 mg oral tablet 1, tablet, By Mouth, Daily at bedtime, # 30 tablet, Refills 5, Route to Pharmacy Electronically, [facility], 174, cm, 05/27/21 15:55:00 EST, Height, 82, kg, 05/04/21 12:35:00 EST, Dry Weight Start Date: 06/14/21 Status: OrderedFLUoxetine 20 mg oral tablet 1 tablet = 20 mg, By Mouth, Daily, # 30 tablet, 5 Refills, Maintenance, 11/17/20 4:20:00 EDT, Tablet, [facility], 173, cm, 07/09/20 8:33:00 EST, Height Start Date: 11/17/20 Status: Orderedfolic acid 1 mg oral tablet 1 mg, 1, tablet, By Mouth, Daily, # 30 tablet, Refills 0, Tot. Refills 0, Maintenance, 08/29/21 10:08:00 EDT, Route to Pharmacy Electronically, [facility], Partial fill upon patient request if theprescription is for a schedule II opioid drug., 1... Start Date: 08/29/21 Status: Orderedmelatonin 10 mg oral tablet 1 [...] Start Date: 05/06/21 Stop Date: 06/05/21 Status: Orderedomeprazole 20 mg oral enteric coated capsule 1 capsule, By Mouth, 2 times a day, # 60 capsule, 2 Refills, [facility], 174, cm, 05/27/21 15:55:00 EST, Height, 82, kg, 05/04/21 12:35:00 EST, Dry Weight Start Date: 06/14/21 Status: Orderedthiamine 100 mg oral tablet 100 mg, 1, tablet, By Mouth, Daily, for 30 days, # 30 tablet, Refills 0, Tot. Refills 0, Acute 09/28/21 10:08:00 EDT, 08/29/21 10:08:00 EDT, Route to Pharmacy Electronically, [facility], Partial fill upon patient request if the prescription is fo... Start Date: 08/29/21 Stop Date: 09/28/21 Status: OrderedtraZODone 50 mg oral tablet 1, tablet, By Mouth, Daily at bedtime, PRN, # 30 tablet, Refills 5, NEEDED FOR INSOMNIA, Route toPharmacy Electronically, [facility], 174, cm, 05/27/21 15:55:00 EST, Height, 82, kg, 05/04/21 12:35:00 EST, Dry Weight Start Date: 06/14/21 Status: Ordered Problem List Condition Effective Dates Status Health Status Informant Essential Hypertension(Confirmed)1, 2, Active 3 H/O herpes zoster(Confirmed)4 12/23/07 Active Hyperlipidemia(Confirmed) Active Impaired fasting glucose(Confirmed)5 Active Major depression in full Active remission(Confirmed) Fatty liver us 2020(Confirmed) Active 1urine catecholamines appear bxdgyz8mlnwjwoh renal artery hpdiep1t/o secondary jkkpj5tjilg T11 bsutzqgyffug0smqiiox pre diabetic increased risk diabetes Social History Social History Type Response Smoking Status Never (less than 100 in life time) entered on: 07/17/21 Sex
--- OUTSIDE RECORDS SUMMARY | 2022-06-28 15:49 | XMS_ITS | Continuity of Care Document ---
:1985 Author Organization [facility] Address [address] [place] [address]- Care Team Providers Name Role Phone Jarad SHAFFER, Cristóbal Sheth Primary Care Physician Encounter [facility] Date(s): 03/31/22 - 04/30/22 [facility] [address] [facility] [place] [address]- Attending Physician: Admtr, Ar8 Allergies, Adverse Reactions, Alerts No Known Allergies [...] tetanus-diphtheria toxoids (Td)6 04/29/04 Given 1Result Comment: [id number] Comment: [facility]# [address] [phone] Comment: [03/10/2017] [facility] [phone] Comment: [facility]: [phone] Comment: [10/10/2013] #16Admin Note: historical data Medications [...] 09/17/21 9:37:00 EDT, Route to Pharmacy Electronically, [facility], 172, cm, 09/17/21 8:49:00 EDT, Height, [...] Date: 12/08/21 Status: Ordered Problem List Condition Confirmation Course Effective Dates Status Health I nformant Status Essential Confirmed Active Hypertension1, 2, 3 H/O herpes zoster4 Confirmed 12/23/07 Active Hyperlipidemia Confirmed Active Impaired fasting Confirmed Active glucose5 Major depression in Confirmed Active full remission Fatty liver 2020 Confirmed Active 1urine catecholamines appear tojjxr2vgmzbabf renal artery qixohq9c/o secondary ogffy6iyqvr T11 pgflohtecihc0fhdlnvl pre diabetic increased risk diabetes Procedures Procedure Date Related Diagnosis Body Site Status Reference laboratory ER [facility]1 10/29/21 Completed Reference laboratory ER [facility] 03/22/21 Completed Ultrasound of abdominal - Echogenic 01/05/21 Completed liver likely fatty infiltration Ambulatory blood pressure monitoring, 06/11/10 Completed utilizing a system such as magnetic tape and/or computer disk, for 24 hours or longer; including recording, scanning analysis, interpretation and report3 [facility] 10/29/2021 white count 7.86 hemoglobin 16.8 platelets 240 3K ethanol level 418 sodium 142 potassium 3.5 chloride 100 bicarb 20 BUN 10 creatinine 27 calcium 8.6 alk phos normal bilirubin normal AST high 105 ALT high 85 total protein high 8.3 albumin normal globulin level ygnafs7[facility] emergency room labs March 22, 2021 white count 9.7 hemoglobin 17.2 platelet 282 sodium 146potassium 4.2 chloride 106 bicarb 27 BUN 13 creatinine 1.13 know that his sugar 140 urine toxicologypositive for benzodiazepines otherwise negative Covid negative calcium 9.8 magnesium 2.4 bilirubin 0.4 direct bili 0.2 AST 159 ALT 164 total protein 8.7 albumin high at 5.2 ethanol +08362/3 time systolic BP > 140 35% > diastolic 90 Social History Social History Type Response Smoking Status Never (less than 100 in life time) entered on: 07/17/21 Sex Hospital Consult note Event Display: Inpatient Consult Note, Non-BH Authored Date: History and physical note Event Display: History and Physical Hospital Authored Date: Note Event Display: Non BH Lab Results Authored Date: Event Display: Non BH Lab Results Authored Date: Event Display: Non BH Lab Results Authored Date: Event Display: CT Scan Spine, Non- BH Authored Date: Event Display: EKG Non BH Authored Date: Event Display: EKG Non BH Authored Date: EKG study Event Display: EKG Authored Date: Cardiology Outpatient Note Carla Hernández: PERFORM Event Display: Cardiology Note Office Authored Date: [id number] Patient Care team information Care Team PersonnelName: Liliana TAMEZ, Neida Ugalde Position: [facility] PCO Associate Professional Member Role: Lifetime Consulting Provider Address: Address: [address] [place] [address]- Name: Jarad SHAFFER, Cristóbal Sheth Position: [facility] Primary Care Physician Member Role: PCP Address: Address: [address] [place] [id number]- Name: Rubina Brink RN Position: [facility] RN Member Role: Primary Care Nurse Name: Neli Alcala RN Position: [facility] RN Member Role: Primary Care Nurse Care Team Related PersonsName: DOMENICA COLÓN Address: home [address] [place] [address] UM Name: KENNETH BALDWIN Address: [address] [place] [address]
--- OUTSIDE RECORDS SUMMARY | 2022-06-28 15:49 | XMS_ITS | Continuity of Care Document ---
:1985 Author Organization [facility] Address [address] [place] [address]- Care Team Providers Name Role Phone Cristóbal Abraham MD Primary Care Physician Encounter [facility] Date(s): 05/09/19 - 05/16/19 [facility] [address] [place] [address]- [facility] Attending Physician: Cristóbal Abraham MD Allergies, Adverse Reactions, Alerts Substance Reaction Severity Status NKA Active Immunizations Given and Recorded Vaccine Date Status Refusal Reason influenza virus vaccine, inactivated 04/20/19 Given influenza virus vaccine, inactivated1 03/10/17 Given Hepatitis A Adult Vaccine2 10/10/13 Given tetanus/diphtheria/pertussis, acel(Tdap) 09/13/12 Given FluLaval (oldterm) 04/16/10 Given tetanus-diphtheria toxoids (Td)3 04/29/04 Given 1Result Comment: [03/10/2017] [facility] [phone] Comment: [10/10/2013] #13 Admin Note: historical data Medications amLODIPine 5 mg oral tablet 5 mg, 1, tablet, By Mouth, 2 times a day, # 60 tablet, Refills 11, Tot. Refills 11, Maintenance, 06/11/18 11:05:29 EST, Route to Pharmacy Electronically, [id number], [facility], new dose Start Date: 06/11/18 Status: OrderedcloNIDine 0.1 mg oral tablet 0.1 mg, 1, tablet, By Mouth, 2 times a day, # 30 tablet, Refills 0, Tot. Refills 0, Maintenance, 05/05/19 7:41:58 EST, Route to Pharmacy Electronically, [id number], [facility], 173, cm, 05/05/19 7:27:36 EST, Height Start Date: 05/05/19 Status: Ordered Problem List Condition Effective Dates Status Health Status Informant Anxiety(Confirmed) Active Essential Hypertension(Confirmed)1, 2, Active 3 H/O herpes zoster(Confirmed)4 12/23/07 Active Hyperlipidemia(Confirmed) Active Impaired fasting glucose(Confirmed)5 Active 1urine catecholamines appear lqivbt7vfmaiqfc renal artery ywpttx4b/o secondary jkyrm3wuvzz T11 kcfvamftplzp9fajaprt pre diabetic increased risk diabetes Vital Signs Most recent to oldest [Reference Range]: 1 Blood Pressure [90-138/55-84 mm Hg] 164/90 mm Hg *H* (05/09/19 3:22 PM) Blood pressure sites Arm, left (05/09/19 3:22 PM) Social History Social History Type Response Smoking Status Never smoker entered on: 10/10/13 Sex
--- OUTSIDE RECORDS SUMMARY | 2022-06-28 15:49 | XMS_ITS | Continuity of Care Document ---
:1985 Author Organization [facility] Address [address] [place] [address]- Care Team Providers Name Role Phone Cristóbal Abraham MD Primary Care Physician Encounter [facility] Date(s): 08/09/21 - 09/13/21 [facility] [address] [place] [address]- Attending Physician: Not on Staff, Attending MD Referring Physician: Cristóbal Abraham MD Allergies, Adverse Reactions, Alerts No Known [...] tetanus-diphtheria toxoids (Td)6 04/29/04 Given 1Result Comment: [id number] Comment: [facility]# ON THE [address] [phone] Comment: [03/10/2017] [facility] [phone] Comment: [facility]: [phone] Comment: [10/10/2013] #16Admin Note: historical data Medications [...] tablet, Refills 5, Route to Pharmacy Electronically, [facility], 174, cm, 05/27/21 15:55:00 EST, Height, 82, kg, 05/04/21 12:35:00 EST, Dry Weight Start Date: 06/14/21 Status: OrderedFLUoxetine 20 mg oral tablet 1 tablet = 20 mg, By Mouth, Daily, # 30 tablet, 5 Refills, Maintenance, 11/17/20 4:20:00 EDT, Tablet, [facility], 173, cm, 07/09/20 8:33:00 EST, Height Start Date: 11/17/20 Status: Orderedfolic acid 1 mg oral tablet 1 mg, 1, tablet, By Mouth, Daily, # 30 tablet, Refills 0, Tot. Refills 0, Maintenance, 08/29/21 10:08:00 EDT, Route to Pharmacy Electronically, [facility], Partial fill upon patient request if theprescription is for a schedule II opioid drug., 1... Start Date: 08/29/21 Status: OrderedhydrOXYzine hydrochloride 10 mg oral tablet 1 tablet = 10 mg, By Mouth, 4 times a day, PRN Anxiety, 0 Refills, Maintenance, 09/12/21 15:56:00 EDT, Tablet, Partial fill upon patient request if the prescription is for a schedule II opioid drug. Start Date: 09/12/21 Status: Orderedmelatonin 10 mg oral tablet 1 [...] Start Date: 05/06/21 Stop Date: 06/05/21 Status: Orderedpantoprazole 40 mg oral delayed release tablet = 40 mg, By Mouth, Daily, 0 Refills, Maintenance, 09/12/21 15:56:00 EDT, EC Tablet Start Date: 09/12/21 Status: Orderedthiamine 100 mg oral tablet 100 mg, 1, tablet, By Mouth, Daily, for 30 days, # 30 tablet, Refills 0, Tot. Refills 0, Acute 09/28/21 10:08:00 EDT, 08/29/21 10:08:00 EDT, Route to Pharmacy Electronically, [facility], Partial fill upon patient request if the prescription is fo... Start Date: 08/29/21 Stop Date: 09/28/21 Status: OrderedtraZODone 50 mg oral tablet 1, tablet, By Mouth, Daily at bedtime, PRN, # 30 tablet, Refills 5, NEEDED FOR INSOMNIA, Route toPharmacy Electronically, [facility], 174, cm, 05/27/21 15:55:00 EST, Height, 82, kg, 05/04/21 12:35:00 EST, Dry Weight Start Date: 06/14/21 Status: Ordered Problem List Condition Effective Dates Status Health Status Informant Essential Hypertension(Confirmed)1, 2, Active 3 H/O herpes zoster(Confirmed)4 12/23/07 Active Hyperlipidemia(Confirmed) Active Impaired fasting glucose(Confirmed)5 Active Major depression in full Active remission(Confirmed) Severe obesity(Confirmed) Active Fatty liver us 2020(Confirmed) Active 1urine catecholamines appear ldyqdy5fnjvofyh renal artery orozcw4r/o secondary cyiiw0zcvmc T11 abpcredemoir9rmzvecr pre diabetic increased risk diabetes Social History Social History Type Response Smoking Status Never (less than 100 in life time) entered on: 07/17/21 Sex
--- OUTSIDE RECORDS SUMMARY | 2022-06-28 15:49 | XMS_ITS | Continuity of Care Document ---
:1985 Author Organization [facility] Address [address] [place] [address]- Care Team Providers Name Role Phone Jarad SHAFFER, Cristóbal Sheth Primary Care Physician Encounter [facility] Date(s): 07/17/21 - 07/21/[address] [address]- Discharge Disposition: A-D/C Home Attending Physician: Farzaneh Levine MD Admitting Physician: Farzaneh Levine MD Referring Physician: Eleazar Sandra MD Allergies, Adverse Reactions, Alerts No Known [...] tetanus-diphtheria toxoids (Td)6 04/29/04 Given 1Result Comment: [id number] Comment: [facility]# [address] [phone] Comment: [03/10/2017] [facility] [phone] Comment: [facility]: [id number] Comment: [10/10/2013] #16Admin Note: historical data Medications amLODIPine 5 mg oral tablet 5 mg, Tablet, By Mouth, 07/21/21 9:00:00 EST Start Date: 07/21/21 Stop Date: 07/21/21 Status: CompletedamLODIPine 5 mg oral tablet 5 mg, 1, tablet, By Mouth, Daily, # 30 tablet, Refills 0, Tot. Refills 0, Maintenance, 07/21/21 7:40:00 EST, Do Not Route, new dose Start Date: 07/21/21 Stop Date: 08/20/21 Status: OrderedcloNIDine 0.2 mg oral tablet 1, tablet, By Mouth, Daily at bedtime, # 30 tablet, Refills 5, Route to Pharmacy Electronically, [facility], 174, cm, 05/27/21 15:55:00 EST, Height, 82, kg, 05/04/21 12:35:00 EST, Dry Weight Start Date: 06/14/21 Status: OrderedFLUoxetine 20 mg oral tablet 1 tablet = 20 mg, By Mouth, Daily, # 30 tablet, 5 Refills, Maintenance, 11/17/20 4:20:00 EDT, Tablet, [facility], 173, cm, 07/09/20 8:33:00 EST, Height Start Date: 11/17/20 Status: Orderedmultivitamin Multiple Vitamins oral tablet 1 tablet, By Mouth, Daily, # 30 tablet, 0 Refills, Maintenance, 05/06/21 14:35:00 EST, Tablet, [facility], Partial fill upon patient request if the prescription is for a schedule II opioid drug., 1 tablet By Mouth Daily,x30 days, 174, cm, ... Start Date: 05/06/21 Stop Date: 06/05/21 Status: Orderedomeprazole 20 mg oral enteric coated capsule 1 capsule, By Mouth, 2 times a day, # 60 capsule, 2 Refills, [facility], 174, cm, 05/27/21 15:55:00 EST, Height, 82, kg, 05/04/21 12:35:00 EST, Dry Weight Start Date: 06/14/21 Status: OrderedtraZODone 50 mg oral tablet 1, tablet, By Mouth, Daily at bedtime, PRN, # 30 tablet, Refills 5, NEEDED FOR INSOMNIA, Route toPharmacy Electronically, [facility], 174, cm, 05/27/21 15:55:00 EST, Height, 82, kg, 05/04/21 12:35:00 EST, Dry Weight Start Date: 06/14/21 Status: Ordered Problem List Condition Effective Dates Status Health Status Informant Essential Hypertension(Confirmed)1, 2, Active 3 H/O herpes zoster(Confirmed)4 12/23/07 Active Hyperlipidemia(Confirmed) Active Impaired fasting glucose(Confirmed)5 Active Major depression in full Active remission(Confirmed) Fatty liver us 2020(Confirmed) Active 1urine catecholamines appear sfdtun9jcyhdnci renal artery tobkgi4l/o secondary nxoss5opzxr T11 hywhgxedmowi1fhmkkin pre diabetic increased risk diabetes Vital Signs Most recent to oldest 1 2 3 [Reference Range]: Height 172 cm 172 cm 172 cm (07/21/21 5:18 AM) (07/20/21 8:09 PM) (07/20/21 2:1 1 PM) Weight 74.3 kg 74.3 kg 80 kg (07/17/21 1:44 PM) (07/17/21 1:03 PM) (07/17/21 12: 02 PM) Oxygen Saturation [94-100 99 % 99 % 95 % %] (07/21/21 5:18 AM) (07/20/21 8:09 PM) (07/20/21 2:1 1 PM) Pulse Rate [55-90 bpm] 18 bpm 55 bpm 64 bpm *L* (07/21/21 5:18 AM) (07/20/21 8:09 PM) (07/21/21 10:15 AM) Body Mass Index 25.11 25.11 27.04 [18.5-24.99] *H* *H* *H* (07/17/21 1:44 PM) (07/17/21 1:03 PM) (07/17/21 12: 02 PM) Blood Pressure 115/81 mm Hg 118/91 mm Hg 112/66 mm Hg [90-138/55-84 mm Hg] (07/21/21 10:15 AM) (07/21/21 8:13 AM) ( 5:18 AM) Respiratory Rate [16-30 18 br/min 18 br/min 18 br/mi n br/min] (07/21/21 10:15 AM) (07/21/21 5:18 AM) (07/20/21 8: 09 PM) Temperature [96.8-100.4 97.5 DegF 98.3 DegF 98.1 Deg F DegF] (07/21/21 5:18 AM) (07/20/21 8:09 PM) (07/20/21 2:1 1 PM) Mode of Delivery (Oxygen) Room air Room air Room a ir (07/21/21 5:18 AM) (07/20/21 8:09 PM) (07/20/21 2:1 1 PM) Blood pressure sites Arm, right Arm, right Arm, left (07/21/21 5:18 AM) (07/20/21 8:09 PM) (07/20/21 2:1 1 PM) Temperature Route Oral Oral Oral (07/21/21 5:18 AM) (07/20/21 8:09 PM) (07/20/21 2:1 1 PM) Dry Weight 74.3 kg 80 kg 80 kg (07/17/21 1:44 PM) (07/17/21 12:02 PM) (07/17/21 6: 27 AM) Weight Obtained Via Patient/family stated (07/17/21 6:17 AM) Social History Social History Type Response Smoking Status Never (less than 100 in life time) entered on: 07/17/21 Sex
--- OUTSIDE RECORDS SUMMARY | 2022-06-28 15:49 | XMS_ITS | Continuity of Care Document ---
:1985 Author Organization [facility] Address [address] [place] [address]- Care Team Providers Name Role Phone Jarad SHAFFER, Cristóbal Sheth Primary Care Physician Encounter [facility] Date(s): 09/17/21 - 10/17/21 [facility] [address] [place] [phone]- Allergies, Adverse Reactions, Alerts No Known Allergies [...] tetanus-diphtheria toxoids (Td)6 04/29/04 Given 1Result Comment: [id number] Comment: [facility]# [address] [phone] Comment: [03/10/2017] [facility] [phone] Comment: [facility]: [phone] Comment: [10/10/2013] #16Admin Note: historical data Medications [...] tablet, Refills 5, Route to Pharmacy Electronically, [facility], 174, cm, 05/27/21 15:55:00 EST, Height, [...] Mouth, 3 times a day, PRN Anxiety, # 45 tablet, 0 Refills, Acute 09/17/22 9:00:00 EDT, 09/17/21 9:38:00 EDT, Tablet, Partial fill upon patient request if the prescription is for a schedule II opioid drug. Start Date: 09/17/21 Stop Date: 09/17/22 Status: [...] II opioid drug. Start Date: 09/17/21 Status: OrderedtraZODone 50 mg oral tablet 1, tablet, By Mouth, Daily at bedtime, PRN, # 30 tablet, Refills 5, Tot. Refills 5, NEEDED FOR INSOMNIA, 09/17/21 9:37:00 EDT, Route to Pharmacy Electronically, [facility], 172, cm, 09/17/21 8:49:00 EDT, Height, 75, kg, 09/12/21 17:05:00 EDT,... Start Date: 09/17/21 Status: Ordered Problem List Condition Effective Dates Status Health Status Informant Essential Hypertension(Confirmed)1, 2, Active 3 H/O herpes zoster(Confirmed)4 12/23/07 Active Hyperlipidemia(Confirmed) Active Impaired fasting glucose(Confirmed)5 Active Major depression in full Active remission(Confirmed) Fatty liver 2020(Confirmed) Active 1urine catecholamines appear qzejvm9mrdxwimm renal artery kypild1o/o secondary stact1stpjv T11 xgmbpaomlujf5eppigci pre diabetic increased risk diabetes Social History Social History Type Response Smoking Status Never (less than 100 in life time) entered on: 07/17/21 Sex
--- OUTSIDE RECORDS SUMMARY | 2022-06-28 15:49 | XMS_ITS | Continuity of Care Document ---
:1985 Author Organization [facility] Address [address] [place] [address]- Care Team Providers Name Role Phone Jarad SHAFFER, Cristóbal Sheth Primary Care Physician Encounter [facility] Date(s): 04/12/21 - 05/12/21 [facility] [address] [place] [address]- Allergies, Adverse Reactions, Alerts Substance Reaction Severity Status NKA Active Immunizations Given and Recorded Vaccine Date Status Refusal Reason influenza virus vaccine, inactivated1 04/17/21 Given influenza virus vaccine, inactivated 07/09/20 Given influenza virus vaccine, inactivated 04/20/19 Given influenza virus vaccine, inactivated2 03/10/17 Given hepatitis B adult vaccine 01/15/21 Given pneumococcal 13-valent vaccine3 01/11/21 Given SARS-CoV-2 (COVID-19) mRNA-1273 vaccine 09/27/20 Recorded SARS-CoV-2 (COVID-19) mRNA-1273 vaccine 08/30/20 Recorded Hepatitis A Adult Vaccine4 10/10/13 Given tetanus/diphtheria/pertussis, acel(Tdap) 09/13/12 Given FluLaval (oldterm) 04/16/10 Given tetanus-diphtheria toxoids (Td)5 04/29/04 Given 1Result Comment: [facility]# [address] [phone] Comment: [03/10/2017] [facility] [phone] Comment: [facility]: [phone] Comment: [10/10/2013] #15 Admin Note: historical data Medications amLODIPine 5 mg oral tablet 5 mg, 1, tablet, By Mouth, 2 times a day, # 60 tablet, Refills 5, Tot. Refills 5, Maintenance, 07/20/20 16:18:00 EST, Route to Pharmacy Electronically, [facility], new dose, 173, cm, 07/09/20 8:33:00 EST, Height Start Date: 07/20/20 Status: OrderedbuPROPion 150 mg/24 hours (XL) oral tablet, extended release 1 tablet = 150 mg, By Mouth, Every 24 hours, 0 Refills, Maintenance, 04/17/21 9:41:00 EST, Partial fill upon patient request if the prescription is for a schedule II opioid drug. Start Date: 04/17/21 Status: OrderedcloNIDine 0.2 mg oral tablet 1, tablet, By Mouth, Daily at bedtime, # 30 tablet, Refills 0, Route to Pharmacy Electronically, [facility], 174, cm, 05/07/21 8:28:00 EST, Height, 82, kg, 05/04/21 12:35:00 EST, Dry Weight Start Date: 05/10/21 Status: OrderedFLUoxetine 20 mg oral tablet 1 tablet = 20 mg, By Mouth, Daily, # 30 tablet, 5 Refills, Maintenance, 11/17/20 4:20:00 EDT, Tablet, [facility], 173, cm, 07/09/20 8:33:00 EST, Height Start Date: 11/17/20 Status: Orderedfolic acid 1 mg oral tablet 1 mg, 1, tablet, By Mouth, Daily, # 30 tablet, Refills 0, Tot. Refills 0, Maintenance, 05/06/21 14:35:00 EST, Route to Pharmacy Electronically, [facility], Partial fill upon patient request if theprescription is for a schedule II opioid drug., 1... Start Date: 05/06/21 Status: Orderedmirtazapine 15 mg oral tablet 1 tablet = 15 mg, By Mouth, Daily at bedtime, # 30 tablet, 0 Refills, Maintenance, 01/11/21 8:34:00 EDT, Tablet, Partial fill upon patient request if the prescription is for a schedule II opioid drug. Start Date: 01/11/21 Status: Orderedmultivitamin Multiple Vitamins oral tablet 1 [...] 2 times a day, # 60 capsule, 1 Refills, Maintenance, 05/06/21 14:34:00 EST, EC Capsule, [facility], Partial fill upon patient request if the prescription is for a schedule II opioid drug., 174, cm, 05/06/21 13:58:00 E... Start Date: 05/06/21 Status: Orderedondansetron 4 mg oral tablet, disintegrating 1 tablet = 4 mg, By Mouth, Every 8 hours, PRN Nausea & Vomiting, # 10 tablet, 0 Refills, Acute 05/31/21 10:00:00 EST, 05/06/21 14:36:00 EST, Tablet, [facility], Partial fill upon patient request if the prescription is for a schedule II opioid gómez... Start Date: 05/06/21 Stop Date: 05/31/21 Status: Orderedthiamine 100 mg oral tablet 100 mg, 1, tablet, By Mouth, Daily, for 30 days, # 30 tablet, Refills 0, Tot. Refills 0, Acute 06/05/21 14:35:00 EST, 05/06/21 14:35:00 EST, Route to Pharmacy Electronically, [facility], Partial fill upon patient request if the prescription is fo... Start Date: 05/06/21 Stop Date: 06/05/21 Status: OrderedtraZODone 50 mg oral tablet 1, tablet, By Mouth, Daily at bedtime, PRN, # 30 tablet, Refills 0, NEEDED FOR INSOMNIA, Route toPharmacy Electronically, [facility], 174, cm, 05/07/21 8:28:00 EST, Height, 82, kg, 05/04/21 12:35:00 EST, Dry Weight Start Date: 05/12/21 Status: OrderedVivitrol Inj = 380 mg, Intramuscular, Every 28 days, 0 Refills, Maintenance, 04/17/21 9:43:00 EST, Partial fill upon patient request if the prescription is for a schedule II opioid drug. Start Date: 04/17/21 Status: Ordered Problem List Condition Effective Dates Status Health Status Informant Essential Hypertension(Confirmed)1, 2, Active 3 H/O herpes zoster(Confirmed)4 12/23/07 Active Hyperlipidemia(Confirmed) Active Impaired fasting glucose(Confirmed)5 Active Fatty liver 2020(Confirmed) Active 1urine catecholamines appear kdlezn6spabifig renal artery xufpfb6u/o secondary zmzrv4mlgve T11 vjmoespjjiad4trxxkau pre diabetic increased risk diabetes Social History Social History Type Response Smoking Status Never smoker entered on: 10/10/13 Sex
--- OUTSIDE RECORDS SUMMARY | 2022-06-28 15:49 | XMS_ITS | Continuity of Care Document ---
:1985 Author Organization [facility] Address [address] [place] [address]- Care Team Providers Name Role Phone Jarad SHAFFER, Cristóbal Sheth Primary Care Physician Encounter [facility] Date(s): 05/30/20 - 06/29/20 [facility] [address] [place] [address]- Allergies, Adverse Reactions, Alerts Substance Reaction Severity Status NKA Active Immunizations Given and Recorded Vaccine Date Status Refusal Reason influenza virus vaccine, inactivated 04/20/19 Given influenza virus vaccine, inactivated1 03/10/17 Given Hepatitis A Adult Vaccine2 10/10/13 Given tetanus/diphtheria/pertussis, acel(Tdap) 09/13/12 Given FluLaval (oldterm) 04/16/10 Given tetanus-diphtheria toxoids (Td)3 04/29/04 Given 1Result Comment: [03/10/2017] [facility] [phone] Comment: [10/10/2013] #13 Admin Note: historical data Medications amLODIPine 5 mg oral tablet 5 mg, 1, tablet, By Mouth, 2 times a day, # 60 tablet, Refills 5, Tot. Refills 5, Maintenance, 12/08/19 10:07:00 EDT, Route to Pharmacy Electronically, [facility], new dose, 173, cm, 11/10/19 7:57:00 EDT, Height Start Date: 12/08/19 Status: OrderedcloNIDine 0.1 mg oral tablet 0.1 mg, 1, tablet, By Mouth, 2 times a day, # 60 tablet, Refills 5, Tot. Refills 5, Maintenance, 12/08/19 10:07:00 EDT, Route to Pharmacy Electronically, [facility], 173, , 11/10/19 7:57:00 EDT,Height Start Date: 12/08/19 Status: OrderedFLUoxetine 20 mg oral tablet 1 tablet = 20 mg, By Mouth, Daily, # 30 tablet, 5 Refills, Maintenance, 05/16/20 13:09:00 EST, Tablet, [facility], 173, , 11/10/19 7:57:00 EDT, Height Start Date: 05/16/20 Status: Orderedfolic acid 1 mg oral tablet 1 mg, 1, tablet, By Mouth, Daily, # 30 tablet, Refills 5, Tot. Refills 5, Maintenance, 01/24/20 11:28:00 EDT, Route to Pharmacy Electronically, [facility], 173, , 11/10/19 7:57:00 EDT, Height Start Date: 01/24/20 Status: Orderedgabapentin 300 mg oral capsule 1, capsule, By Mouth, 3 times a day, # 90 capsule, Refills 2, Tot. Refills 0, Maintenance, 05/30/20 16:02:00 EST, Route to Pharmacy Electronically, [facility], 173, , 11/10/19 7:57:00 EDT, Height Start Date: 05/30/20 Status: Orderedomeprazole 20 mg oral delayed release tablet 2 tablet = 40 mg, By Mouth, 2 times a day, # 120 tablet, 6 Refills, Maintenance, 12/08/19 17:03:00 EDT, [facility], 173, , 11/10/19 7:57:00 EDT, Height Start Date: 12/08/19 Status: Orderedthiamine 100 mg oral tablet 100 mg, 1, tablet, By Mouth, Daily, # 90 tablet, Refills 6, Tot. Refills 6, Maintenance, 07/05/19 10:35:00 EST, Route to Pharmacy Electronically, [facility], 173, , 07/05/19 10:32:00 EST, Height Start Date: 07/05/19 Status: OrderedVivitrol Inj = 380 mg, Intramuscular, Every 28 days, 0 Refills, Maintenance, 09/09/19 7:25:00 EDT Start Date: 09/09/19 Status: Ordered Problem List Condition Effective Dates Status Health Status Informant Abnormal liver function(Confirmed)1, Active 2, 3 Alcohol abuse(Confirmed) Active Anxiety(Confirmed) Active Essential Hypertension(Confirmed)4, 5, Active 6 H/O herpes zoster(Confirmed)7 12/23/07 Active Hyperlipidemia(Confirmed) Active Impaired fasting glucose(Confirmed)8 Active Major depression(Confirmed) Active 1normal aat ceruloplasmin,neg hep c.Bsag pos HEP A nd B AB2neg hemochromatosis3 normal hkvq2fqxdz catecholamines appear ajmwlx4czksmrdq renal artery locmlr6e/o secondary yggvm4kqctq T11 woreyecjflxp2ycvxksv pre diabetic increased risk diabetes Social History Social History Type Response Smoking Status Never smoker entered on: 10/10/13 Sex
--- OUTSIDE RECORDS SUMMARY | 2022-06-28 15:49 | XMS_ITS | Continuity of Care Document ---
:1985 Author Organization [facility] Address [address] [place] [address]- Care Team Providers Name Role Phone Cristóbal Abraham MD Primary Care Physician Encounter [facility] [place] [facility] Date(s): 09/26/21 - 11/22/21 [facility] [address] [place] [address]- Attending Physician: Cristóbal Abraham MD Allergies, Adverse [...] tetanus-diphtheria toxoids (Td)6 04/29/04 Given 1Result Comment: [id number] Comment: [facility]# [address] [phone] Comment: [03/10/2017] [facility] [phone] Comment: [facility]: [phone] Comment: [10/10/2013] #16Admin Note: historical data Medications [...] a day, # 30 tablet, Refills 0, Maintenance, 10/26/21 21:28:00 EDT, Partial fill upon patient request if the prescription is for a schedule II opioid drug. Start Date: 10/26/21 Status: OrderedamLODIPine 5 mg oral tablet 5 [...] tablet, Refills 5, Route to Pharmacy Electronically, [facility], 174, cm, 05/27/21 15:55:00 EST, Height, [...] 09/17/21 9:37:00 EDT, Route to Pharmacy Electronically, [facility], 172, cm, 09/17/21 8:49:00 EDT, Height, 75, kg, 09/12/21 17:05:00 EDT,... Start Date: 09/17/21 Status: Ordered Problem List Condition Effective Dates Status Health Status Informant Essential Hypertension(Confirmed)1, 2, Active 3 H/O herpes zoster(Confirmed)4 12/23/07 Active Hyperlipidemia(Confirmed) Active Impaired fasting glucose(Confirmed)5 Active Major depression in full Active remission(Confirmed) Fatty liver 2020(Confirmed) Active 1urine catecholamines appear xwypyo9tyxptsvi renal artery ovzzyl9j/o secondary fcmpf7vmfno T11 yzypszstfulu5ejcayev pre diabetic increased risk diabetes Social History Social History Type Response Smoking Status Never (less than 100 in life time) entered on: 07/17/21 Sex
--- OUTSIDE RECORDS SUMMARY | 2022-06-28 15:49 | XMS_ITS | Continuity of Care Document ---
:1985 Author Organization [facility] Address [address] [place] [address]- Care Team Providers Name Role Phone Cristóbal Abraham MD Primary Care Physician Encounter [facility] [place] Date(s): 01/24/20 - 05/23/20 [facility] [address] [place] [address]- Attending Physician: Cristóbal Abraham MD Allergies, Adverse Reactions, Alerts Substance Reaction Severity Status NKA Active Immunizations Given and Recorded Vaccine Date Status Refusal Reason influenza virus vaccine, inactivated 04/20/19 Given influenza virus vaccine, inactivated1 03/10/17 Given Hepatitis A Adult Vaccine2 10/10/13 Given tetanus/diphtheria/pertussis, acel(Tdap) 09/13/12 Given FluLaval (oldterm) 04/16/10 Given tetanus-diphtheria toxoids (Td)3 04/29/04 Given 1Result Comment: [03/10/2017] [facility] [id number] Comment: [10/10/2013] #13 Admin Note: historical data [...] 12/08/19 10:07:00 EDT, Route to Pharmacy Electronically, [facility], 173, , 11/10/19 7:57:00 EDT,Height Start Date: 12/08/19 Status: OrderedFLUoxetine 20 mg oral tablet 1 tablet = 20 mg, By Mouth, Daily, # 30 tablet, 5 Refills, Maintenance, 05/16/20 13:09:00 EST, Tablet, [facility], 173, cm, 11/10/19 7:57:00 EDT, Height Start Date: 05/16/20 Status: Orderedfolic acid 1 mg oral tablet 1 mg, 1, tablet, By Mouth, Daily, # 30 tablet, Refills 5, Tot. Refills 5, Maintenance, 01/24/20 11:28:00 EDT, Route to Pharmacy Electronically, [facility], 173, , 11/10/19 7:57:00 EDT, Height Start Date: 01/24/20 Status: Orderedgabapentin 300 mg oral capsule 300 mg, 1, capsule, By Mouth, 3 times a day, # 270 capsule, Refills 0, Tot. Refills 0, Maintenance, 12/08/19 10:08:00 EDT, Route to Pharmacy Electronically, [facility], 173, , 11/10/19 7:57:00 EDT, Height Start Date: 12/08/19 Status: Orderedomeprazole 20 mg oral delayed release tablet 2 tablet = 40 mg, By Mouth, 2 times a day, # 120 tablet, 6 Refills, Maintenance, 12/08/19 17:03:00 EDT, [facility], 173, , 11/10/19 7:57:00 EDT, Height Start Date: 12/08/19 Status: Orderedthiamine 100 mg oral tablet 100 mg, 1, tablet, By Mouth, Daily, # 90 tablet, Refills 6, Tot. Refills 6, Maintenance, 07/05/19 10:35:00 EST, Route to Pharmacy Electronically, [facility], 173, , 07/05/19 10:32:00 EST, Height [...] HEP A nd B AB2neg hemochromatosis3 normal gdip3ivrfq catecholamines appear yeeiot7gambbxuo renal artery jqoccw8p/o secondary rakih6eedwj T11 bplwcnltcwhz6vhvoogk pre diabetic increased risk diabetes Social History Social History Type Response Smoking Status Never smoker entered on: 10/10/13 Sex
--- OUTSIDE RECORDS SUMMARY | 2022-06-28 15:50 | XMS_ITS | Continuity of Care Document ---
:1985 Author Organization [facility] Adult Address [address] [place] [address]- Care Team Providers Name Role Phone Cristóbal Abraham MD Primary Care Physician [place] [facility]19 [place] 10/26/19 [facility] [address] [place] [phone]- [facility] Encounter Diagnosis Major depression (Discharge Diagnosis) - 10/19/19 Alcoholism (Discharge Diagnosis) - 10/19/19 Attending Physician: Cristóbal Abraham MD Allergies, Adverse Reactions, Alerts Substance Reaction Severity Status NKA Active Immunizations Given and Recorded Vaccine Date Status Refusal Reason influenza virus vaccine, inactivated 04/20/19 Given influenza virus vaccine, inactivated1 03/10/17 Given Hepatitis A Adult Vaccine2 10/10/13 Given tetanus/diphtheria/pertussis, acel(Tdap) 09/13/12 Given FluLaval (oldterm) 04/16/10 Given tetanus-diphtheria toxoids (Td)3 04/29/04 Given 1Result Comment: [03/10/2017] [facility] [phone] Comment: [10/10/2013] #13 Admin Note: historical data Medications amLODIPine 5 mg oral tablet 5 mg, 1, tablet, By Mouth, 2 times a day, # 60 tablet, Refills 5, Tot. Refills 5, Maintenance, 09/26/19 11:53:00 EDT, Route to Pharmacy Electronically, [facility], new dose, 173, cm, 09/09/19 7:35:00 EDT, Height Start Date: 09/26/19 Status: OrderedcloNIDine 0.1 mg oral tablet 0.1 mg, 1, tablet, By Mouth, 2 times a day, # 60 tablet, Refills 5, Tot. Refills 5, Maintenance, 09/26/19 9:14:00 EDT, Route to Pharmacy Electronically, [facility], 173, , 09/09/19 7:35:00 EDT, Height Start Date: 09/26/19 Status: OrderedFLUoxetine 20 mg oral tablet 1 tablet = 20 mg, By Mouth, Daily, # 30 tablet, 5 Refills, Maintenance, 10/11/19 13:33:00 EDT, Tablet, [facility], 173, , 09/09/19 7:35:00 EDT, Height Start Date: 10/11/19 Status: Orderedfolic acid 1 mg oral tablet 1 mg, 1, tablet, By Mouth, Daily, # 30 tablet, Refills 0, Tot. Refills 0, Maintenance, 10/11/19 14:57:00 EDT, Route to Pharmacy Electronically, [facility], 173, , 09/09/19 7:35:00 EDT, Height Start Date: 10/11/19 Status: Orderedgabapentin 300 mg oral capsule 300 mg, 1, capsule, By Mouth, 3 times a day, # 270 capsule, Refills 0, Tot. Refills 0, Maintenance, 09/26/19 11:53:00 EDT, Route to Pharmacy Electronically, [facility], 173, , 09/09/19 7:35:00 EDT, Height Start Date: 09/26/19 Status: Orderedthiamine 100 mg oral tablet 100 mg, 1, tablet, By Mouth, Daily, # 90 tablet, Refills 6, Tot. Refills 6, Maintenance, 07/05/19 10:35:00 EST, Route to Pharmacy Electronically, [facility], 173, , 07/05/19 10:32:00 EST, Height Start Date: 07/05/19 Status: OrderedVivitrol Inj = 380 mg, Intramuscular, Every 28 days, 0 Refills, Maintenance, 09/09/19 7:25:00 EDT Start Date: 09/09/19 Status: Ordered Problem List Condition Effective Dates Status Health Status Informant Abnormal liver function(Confirmed)1, Active 2, 3 Anxiety(Confirmed) Active Essential Hypertension(Confirmed)4, 5, Active 6 H/O herpes zoster(Confirmed)7 12/23/07 Active Hyperlipidemia(Confirmed) Active Impaired fasting glucose(Confirmed)8 Active Major depression(Confirmed) Active 1normal aat ceruloplasmin,neg hep c.Bsag pos HEP A nd B AB2neg hemochromatosis3 normal lpzj5bnfnz catecholamines appear lmjraq8nvktgulk renal artery djdnvb4j/o secondary iaodo6spmqt T11 hywrkdpogyds6abluwpr pre diabetic increased risk diabetes Diagnosis Diagnosis Type Effective Dates Health Clinical Infor mant Status Service Major depression Discharge 10/19/19 Diagnosis Alcoholism Discharge 10/19/19 Diagnosis Vital Signs Most recent to oldest [Reference Range]: 1 Height 173.00 cm (10/19/19 10:42 AM) Social History Social History Type Response Smoking Status Never smoker entered on: 10/10/13 Sex
--- OUTSIDE RECORDS SUMMARY | 2022-06-28 15:50 | XMS_ITS | Continuity of Care Document ---
:1985 Author Organization [facility] Address [address] [place] [address]- Care Team Providers Name Role Phone Jarad SHAFFER, Cristóbal Sheth Primary Care Physician [place] [facility] [place] 07/02/[address] [address] [facility] Discharge Disposition: A-D/C Home Attending Physician: Koko Greene MD Admitting Physician: Koko Greene MD Referring Physician: Not on Staff, Referring MD Allergies, Adverse Reactions, Alerts Substance Reaction Severity Status NKA Active Immunizations Given and Recorded Vaccine Date Status Refusal Reason influenza virus vaccine, inactivated 04/20/19 Given influenza virus vaccine, inactivated1 03/10/17 Given Hepatitis A Adult Vaccine2 10/10/13 Given tetanus/diphtheria/pertussis, acel(Tdap) 09/13/12 Given FluLaval (oldterm) 04/16/10 Given tetanus-diphtheria toxoids (Td)3 04/29/04 Given 1Result Comment: [03/10/2017] [facility] [id number] Comment: [10/10/2013] #13 Admin Note: historical data Medications amLODIPine 5 mg oral tablet 5 mg, 1, tablet, By Mouth, 2 times a day, # 60 tablet, Refills 11, Tot. Refills 11, Maintenance, 06/11/18 11:05:29 EST, Route to Pharmacy Electronically, [id number], [facility], new dose Start Date: 06/11/18 Status: OrderedcloNIDine 0.1 mg oral tablet 0.1 mg, 1, tablet, By Mouth, 2 times a day, # 60 tablet, Refills 5, Tot. Refills 5, Maintenance, 05/24/19 10:18:00 EST, Route to Pharmacy Electronically, [facility], 173, cm, 05/09/19 15:22:00 EST, Height Start Date: 05/24/19 Status: Ordered Problem List Condition Effective Dates Status Health Status Informant Anxiety(Confirmed) Active Essential Hypertension(Confirmed)1, 2, Active 3 H/O herpes zoster(Confirmed)4 12/23/07 Active Hyperlipidemia(Confirmed) Active Impaired fasting glucose(Confirmed)5 Active 1urine catecholamines appear tdkxyj1wbeoawui renal artery tcbiea4q/o secondary vvvig3hkusi T11 xfcgftiezjki0qneqdim pre diabetic increased risk diabetes Vital Signs Most recent to oldest 1 2 3 [Reference Range]: Oxygen Saturation [94-100 %] 97 % 98 % 98 % (07/02/19 6:07 AM) (07/02/19 4:37 AM) (07/02/19 12:18 AM) Pulse Rate [55-90 bpm] 108 bpm 119 bpm 112 bpm *H* *H* *H* (07/02/19 6:07 AM) (07/02/19 4:37 AM) (07/02/19 12:18 AM) Blood Pressure [90-138/55-84 155/87 mm Hg 167/87 mm Hg 140 /89 mm Hg mm Hg] *H* *H* *H* (07/02/19 6:07 AM) (07/02/19 4:37 AM) (07/02/19 12:18 AM) Respiratory Rate [16-30 18 br/min 18 br/min 16 br/mi n br/min] (07/02/19 6:07 AM) (07/02/19 4:37 AM) (07/02/19 12:18 AM) Temperature [96.8-100.4 DegF] 98.7 DegF 98.1 DegF (07/01/19 10:37 PM) (07/01/19 9:25 PM) Mode of Delivery (Oxygen) Room air Room air Room a ir (07/02/19 6:07 AM) (07/02/19 4:37 AM) (07/01/19 10:37 PM) Blood pressure sites Arm, left Arm, left Arm, left (07/02/19 6:07 AM) (07/02/19 4:37 AM) (07/02/19 12:18 AM) Temperature Route Oral Oral (07/01/19 10:37 PM) (07/01/19 9:25 PM) Social History Social History Type Response Smoking Status Never smoker entered on: 10/10/13 Sex
--- OUTSIDE RECORDS SUMMARY | 2022-06-28 15:50 | XMS_ITS | Continuity of Care Document ---
:1985 Author Organization [facility] Address [address] [place] [phone]- Care Team Providers Name Role Phone Jarad SHAFFER, Cristóbal Sheth Primary Care Physician [facility] Date(s): 05/21/21 - 06/20/21 [facility] [address] [place] [phone]- Allergies, Adverse Reactions, Alerts No Known Allergies [...] tetanus-diphtheria toxoids (Td)5 04/29/04 Given 1Result Comment: [facility] [place] [address] [phone] Comment: [03/10/2017] [facility] [place] [phone] Comment: [facility] [place]: [phone] Comment: [10/10/2013] #15 Admin Note: historical data Medications amLODIPine 5 mg oral tablet 5 mg, 1, tablet, By Mouth, 2 times a day, # 60 tablet, Refills 5, Tot. Refills 5, Maintenance, 07/20/20 16:18:00 EST, Route to Pharmacy Electronically, [facility], new dose, 173, cm, 07/09/20 8:33:00 EST, Height Start Date: 07/20/20 Status: OrderedcloNIDine 0.2 mg oral tablet 1, tablet, By Mouth, Daily at bedtime, # 30 tablet, Refills 5, Route to Pharmacy Electronically, [facility], 174, cm, 05/27/21 15:55:00 EST, Height, 82, kg, 05/04/21 12:35:00 EST, Dry Weight Start Date: 06/14/21 Status: OrderedFLUoxetine 20 mg oral tablet 1 tablet = 20 mg, By Mouth, Daily, # 30 tablet, 5 Refills, Maintenance, 11/17/20 4:20:00 EDT, Tablet, [facility], 173, cm, 07/09/20 8:33:00 EST, Height Start Date: 11/17/20 Status: Orderedmultivitamin Multiple Vitamins oral tablet 1 tablet, By Mouth, Daily, # 30 tablet, 0 Refills, Maintenance, 05/06/21 14:35:00 EST, Tablet, [facility], Partial fill upon patient request if the prescription is for a schedule II opioid drug., 1 tablet By Mouth Daily,x30 days, 174, cm, ... Start Date: 05/06/21 Stop Date: 06/05/21 Status: Orderednaltrexone 50 mg oral tablet 1 tablet = 50 mg, By Mouth, Daily, # 30 tablet, 1 Refills, Maintenance, 05/27/21 16:49:00 EST, Partial fill upon patient request if the prescription is for a schedule II opioid drug. Start Date: 05/27/21 Status: Orderedomeprazole 20 mg oral enteric coated capsule 1 capsule, By Mouth, 2 times a day, # 60 capsule, 2 Refills, [facility], 174, cm, 05/27/21 15:55:00 EST, Height, 82, kg, 05/04/21 12:35:00 EST, Dry Weight Start Date: 06/14/21 Status: OrderedtraZODone 50 mg oral tablet 1, tablet, By Mouth, Daily at bedtime, PRN, # 30 tablet, Refills 5, NEEDED FOR INSOMNIA, Route toPharmacy Electronically, [facility], 174, cm, 05/27/21 15:55:00 EST, Height, 82, kg, 05/04/21 12:35:00 EST, Dry Weight Start Date: 06/14/21 Status: Ordered Problem List Condition Effective Dates Status Health Status Informant Essential Hypertension(Confirmed)1, 2, Active 3 H/O herpes zoster(Confirmed)4 12/23/07 Active Hyperlipidemia(Confirmed) Active Impaired fasting glucose(Confirmed)5 Active Major depression in full Active remission(Confirmed) Fatty liver 2020(Confirmed) Active 1urine catecholamines appear lrswux4rfmzoblv renal artery xwcvmu0z/o secondary xevls0guvxo T11 qzlchbryggud3ixcfvuw pre diabetic increased risk diabetes Social History Social History Type Response Smoking Status Never (less than 100 in life time) entered on: 06/19/21 Sex
--- OUTSIDE RECORDS SUMMARY | 2022-06-28 15:50 | XMS_ITS | Continuity of Care Document ---
:1985 Author Organization [facility] Adult Address [address] [place] [address]- Care Team Providers Name Role Phone Jarad SHAFFER, Cristóbal Sheth Primary Care Physician [facility]counter [facility] Date(s): 04/12/21 - 05/12/21 [facility] [address] [place] [address]- Allergies, Adverse Reactions, Alerts Substance Reaction Severity [...] tetanus-diphtheria toxoids (Td)5 04/29/04 Given 1Result Comment: [facility]# [address] [phone] Comment: [03/10/2017] [facility] [phone] Comment: [facility]: [id number] Comment: [10/10/2013] #15 Admin Note: historical data [...] 05/06/21 14:35:00 EST, Route to Pharmacy Electronically, [facility], Partial fill upon patient request if the prescription is fo... Start Date: 05/06/21 Stop Date: 06/05/21 Status: OrderedtraZODone 50 mg oral tablet 1, tablet, By Mouth, Daily at bedtime, PRN, # 30 tablet, Refills 0, NEEDED FOR INSOMNIA, Route toPharmacy Electronically, [facility], 174, cm, 05/07/21 8:28:00 EST, Height, [...] Fatty liver 2020(Confirmed) Active 1urine catecholamines appear obiqjr8bfarvokm renal artery ioamjy9g/o secondary mxspg1bseed T11 gjfwwmaedxhs2dcgyzrj pre diabetic increased risk diabetes Social History Social History Type Response Smoking Status Never smoker entered on: 10/10/13 Sex
--- OUTSIDE RECORDS SUMMARY | 2022-06-28 15:50 | XMS_ITS | Continuity of Care Document ---
:1985 Author Organization [facility] Adult Address [address] [place] [address]- Care Team Providers Name Role Phone Cristóbal Abraham MD Primary Care Physician [facility]counter [facility] Date(s): 04/17/21 - 04/24/21 [facility] [address] [place] [address]- Encounter Diagnosis Major depression in full remission (Discharge Diagnosis) - 04/17/21 Alcoholism (Discharge Diagnosis) - 04/17/21 Essential Hypertension (Discharge Diagnosis) - 04/17/21 Fatty liver us 2020 (Discharge Diagnosis) - 04/17/21 Attending Physician: Cristóbal Abraham MD Allergies, Adverse [...] tetanus-diphtheria toxoids (Td)5 04/29/04 Given 1Result Comment: [facility]# [address] [phone] Comment: [03/10/2017] [facility] [phone] Comment: [facility]: [phone] Comment: [10/10/2013] #15 Admin Note: historical data Medications amLODIPine 5 mg oral tablet 5 mg, 1, tablet, By Mouth, 2 times a day, # 60 tablet, Refills 5, Tot. Refills 5, Maintenance, 07/20/20 16:18:00 EST, Route to Pharmacy Electronically, [facility], new dose, 173, cm, 07/09/20 8:33:00 EST, Height Start Date: 07/20/20 Status: OrderedbuPROPion 150 mg/24 hours (XL) oral tablet, extended release 1 tablet = 150 mg, By Mouth, Every 24 hours, 0 Refills, Maintenance, 04/17/21 9:41:00 EST, Partial fill upon patient request if the prescription is for a schedule II opioid drug. Start Date: 04/17/21 Status: OrderedcloNIDine 0.1 mg oral tablet See Instructions, 1 am, # 30 each, Refills 5, Tot. Refills 5, Maintenance, 07/20/20 16:18:00 EST, Instructions Replace Required Details, Route to Pharmacy Electronically, [facility], 173, cm, 07/09/20 8:33:00 EST, Height Start Date: 07/20/20 Status: OrderedcloNIDine 0.2 mg oral tablet 0.2 mg, 1, tablet, By Mouth, Daily at bedtime, # 30 tablet, Refills 0, Tot. Refills 0, Maintenance, 01/11/21 8:32:00 EDT, Do Not Route, Partial fill upon patient request if the prescription is for a schedule II opioid drug. Start Date: 01/11/21 Status: OrderedFLUoxetine 20 mg oral tablet 1 tablet = 20 mg, By Mouth, Daily, # 30 tablet, 5 Refills, Maintenance, 11/17/20 4:20:00 EDT, Tablet, [facility], 173, cm, 07/09/20 8:33:00 EST, Height Start Date: 11/17/20 Status: Orderedmirtazapine 15 mg oral tablet 1 tablet = 15 mg, By Mouth, Daily at bedtime, # 30 tablet, 0 Refills, Maintenance, 01/11/21 8:34:00 EDT, Tablet, Partial fill upon patient request if the prescription is for a schedule II opioid drug. Start Date: 01/11/21 Status: Orderedomeprazole 20 mg oral enteric coated capsule 1 capsule = 20 mg, By Mouth, Daily, # 30 capsule, 0 Refills, Maintenance, 01/29/21 17:13:00 EDT, EC Capsule, Partial fill upon patient request if the prescription is for a schedule II opioid drug. Start Date: 01/29/21 Status: OrderedtraZODone 50 mg oral tablet 50 mg, 1, tablet, By Mouth, Daily at bedtime, # 30 tablet, Refills 0, Maintenance, 01/11/21 8:34:00 EDT, Partial fill upon patient request if the prescription is for a schedule II opioid drug. Start Date: 01/11/21 Status: OrderedVivitrol Inj = 380 mg, Intramuscular, Every 28 days, 0 Refills, Maintenance, 04/17/21 9:43:00 EST, Partial fill upon patient request if the prescription is for a schedule II opioid drug. Start Date: 04/17/21 Status: Ordered Problem List Condition Effective Dates Status Health Status Informant Essential Hypertension(Confirmed)1, 2, Active 3 H/O herpes zoster(Confirmed)4 12/23/07 Active Hyperlipidemia(Confirmed) Active Impaired fasting glucose(Confirmed)5 Active Fatty liver us 2020(Confirmed) Active 1urine catecholamines appear kjbkhu7igupddpw renal artery ifbxku4i/o secondary xxujm8mykli T11 zcsstvdovitd6zboygyu pre diabetic increased risk diabetes Diagnosis Diagnosis Type Effective Dates Health Clinical Infor [facility] Status Service Major depression in Discharge 04/17/21 full remission Diagnosis Alcoholism Discharge 04/17/21 Diagnosis Essential Discharge 04/17/21 Hypertension Diagnosis Fatty liver 2020 Discharge 04/17/21 Diagnosis Vital Signs Most recent to oldest [Reference Range]: 1 Height 173.00 cm (04/17/21 9:30 AM) Weight 91.4 kg (04/17/21 9:30 AM) Oxygen Saturation [94-100 %] 99 % (04/17/21 9:30 AM) Pulse Rate [55-90 bpm] 66 bpm (04/17/21 9:30 AM) Body Mass Index [18.5-24.99] 30.54 *>HHI* (04/17/21 9:30 AM) Blood Pressure [90-138/55-84 mm Hg] 132/80 mm Hg (04/17/21 9:30 AM) Temperature [96.8-100.4 DegF] 98.0 DegF (04/17/21 9:30 AM) Mode of Delivery (Oxygen) Room air (04/17/21 9:30 AM) Blood pressure sites Arm, right (04/17/21 9:30 AM) Temperature Route Oral (04/17/21 9:30 AM) Weight Obtained Via Standing scale (04/17/21 9:30 AM) Social History Social History Type Response Smoking Status Never smoker entered on: 10/10/13 Sex
--- OUTSIDE RECORDS SUMMARY | 2022-06-28 15:50 | XMS_ITS | Continuity of Care Document ---
:1985 Author Organization [facility] Adult Address [address] [place] [address]- Care Team Providers Name Role Phone Cristóbal Abraham MD Primary Care Physician [facility] Date[facility]s): 04/19/21 - 08/17/21 [facility] [address] [place] [address]- Attending Physician: Cristóbal Abraham MD Allergies, Adverse [...] tetanus-diphtheria toxoids (Td)6 04/29/04 Given 1Result Comment: [id number] Comment: [facility]# [address] [phone] Comment: [03/10/2017] [facility] [phone] Comment: [facility]: [phone] Comment: [10/10/2013] #16Admin Note: historical data Medications [...] tablet, Refills 5, Route to Pharmacy Electronically, [facility], 174, cm, 05/27/21 15:55:00 EST, Height, 82, kg, 05/04/21 12:35:00 EST, Dry Weight Start Date: 06/14/21 Status: OrderedFLUoxetine 20 mg oral tablet 1 tablet = 20 mg, By Mouth, Daily, # 30 tablet, 5 Refills, Maintenance, 11/17/20 4:20:00 EDT, Tablet, [facility], 173, cm, 07/09/20 8:33:00 EST, Height Start Date: 11/17/20 Status: Orderedmultivitamin Multiple Vitamins oral tablet 1 tablet, By Mouth, Daily, # 30 tablet, 0 Refills, Maintenance, 05/06/21 14:35:00 EST, Tablet, [facility], Partial fill upon patient request if the prescription is for a schedule II opioid drug., 1 tablet By Mouth Daily,x30 days, 174, cm, ... Start Date: 05/06/21 Stop Date: 06/05/21 Status: Orderedomeprazole 20 mg oral enteric coated capsule 1 capsule, By Mouth, 2 times a day, # 60 capsule, 2 Refills, [facility], 174, cm, 05/27/21 15:55:00 EST, Height, 82, kg, 05/04/21 12:35:00 EST, Dry Weight Start Date: 06/14/21 Status: OrderedtraZODone 50 mg oral tablet 1, tablet, By Mouth, Daily at bedtime, PRN, # 30 tablet, Refills 5, NEEDED FOR INSOMNIA, Route toPharmacy Electronically, [facility], 174, cm, 05/27/21 15:55:00 EST, Height, 82, kg, 05/04/21 12:35:00 EST, Dry Weight Start Date: 06/14/21 Status: Ordered Problem List Condition Effective Dates Status Health Status Informant Essential Hypertension(Confirmed)1, 2, Active 3 H/O herpes zoster(Confirmed)4 12/23/07 Active Hyperlipidemia(Confirmed) Active Impaired fasting glucose(Confirmed)5 Active Major depression in full Active remission(Confirmed) Fatty liver 2020(Confirmed) Active 1urine catecholamines appear vbiybw7phxrmann renal artery vuifjr2s/o secondary zpqzw9exdxh T11 elbhtgdmgsvd4tapfmij pre diabetic increased risk diabetes Social History Social History Type Response Smoking Status Never (less than 100 in life time) entered on: 07/17/21 Sex
--- OUTSIDE RECORDS SUMMARY | 2022-06-28 15:50 | XMS_ITS | Continuity of Care Document ---
:1985 Author Organization [facility] Address [address] [place] [address]- Care Team Providers Name Role Phone Jarad SHAFFER, Cristóbal Sheth Primary Care Physician [facility] Date[facility]s): 12/31/20 - 01/30/21 [facility] [address] [place] [phone]- Allergies, Adverse Reactions, Alerts Substance Reaction Severity Status NKA Active Immunizations Given and Recorded Vaccine Date Status Refusal Reason hepatitis B adult vaccine 01/15/21 Given pneumococcal 13-valent vaccine1 01/11/21 Given SARS-CoV-2 (COVID-19) mRNA-1273 vaccine 09/27/20 Recorded SARS-CoV-2 (COVID-19) mRNA-1273 vaccine 08/30/20 Recorded influenza virus vaccine, inactivated 07/09/20 Given influenza virus vaccine, inactivated 04/20/19 Given influenza virus vaccine, inactivated2 03/10/17 Given Hepatitis A Adult Vaccine3 10/10/13 Given tetanus/diphtheria/pertussis, acel(Tdap) 09/13/12 Given FluLaval (oldterm) 04/16/10 Given tetanus-diphtheria toxoids (Td)4 04/29/04 Given 1Result Comment: [facility]: [id number] Comment: [03/10/2017] [facility] [id number] 3Result Comment: [10/10/2013] #14Admin Note: historical data Medications acamprosate 333 mg oral delayed release tablet 2 tablet = 666 mg, By Mouth, 3 times a day, # 180 tablet, 0 Refills, Maintenance, 01/29/21 17:13:00 EDT, EC Tablet, Partial fill upon patient request if the prescription is for a schedule II opioid drug. Start Date: 01/29/21 Status: Orderedacamprosate 333 mg oral delayed release tablet 2 tablet = 666 mg, By Mouth, 3 times a day, # 180 tablet, 0 Refills, Maintenance, 01/11/21 8:33:00 EDT, CR Tablet, Partial fill upon patient request if the prescription is for a schedule II opioid drug. Start Date: 01/11/21 Status: OrderedamLODIPine 5 mg oral tablet 5 mg, 1, tablet, By Mouth, 2 times a day, # 60 tablet, Refills 5, Tot. Refills 5, Maintenance, 07/20/20 16:18:00 EST, Route to Pharmacy Electronically, [facility], new dose, 173, cm, 07/09/20 8:33:00 EST, Height Start Date: 07/20/20 Status: OrderedcloNIDine 0.1 mg oral tablet See Instructions, 1 am, # 30 each, Refills 5, Tot. Refills 5, Maintenance, 07/20/20 16:18:00 EST, Instructions Replace Required Details, Route to Pharmacy Electronically, [facility], 173, cm, 07/09/20 8:33:00 EST, Height Start Date: 07/20/20 Status: OrderedcloNIDine 0.2 mg oral tablet 0.2 mg, 1, tablet, By Mouth, Daily at bedtime, # 30 tablet, Refills 0, Tot. Refills 0, Maintenance, 01/11/21 8:32:00 EDT, Do Not Route, Partial fill upon patient request if the prescription is for a schedule II opioid drug. Start Date: 01/11/21 Status: OrderedFLUoxetine 10 mg oral capsule Refills 0, Maintenance, 01/29/21 17:13:00 EDT, Partial fill upon patient request if the prescriptionis for a schedule II opioid drug. Start Date: 01/29/21 Status: OrderedFLUoxetine 20 mg oral tablet 1 tablet = 20 mg, By Mouth, Daily, # 30 tablet, 5 Refills, Maintenance, 11/17/20 4:20:00 EDT, Tablet, [facility], 173, cm, 07/09/20 8:33:00 EST, Height Start Date: 11/17/20 Status: Orderedmirtazapine 15 mg oral tablet 0 Refills, Maintenance, 01/29/21 17:13:00 EDT, Partial fill upon patient request if the prescriptionis for a schedule II opioid drug. Start Date: 01/29/21 Status: Orderedmirtazapine 15 mg oral tablet 1 [...] II opioid drug. Start Date: 01/11/21 Status: Ordered Problem List Condition Effective Dates Status Health Status Informant Abnormal liver function(Confirmed)1, Active 2, 3 Anxiety(Confirmed) Active Essential Hypertension(Confirmed)4, 5, Active 6 H/O herpes zoster(Confirmed)7 12/23/07 Active Hyperlipidemia(Confirmed) Active Impaired fasting glucose(Confirmed)8 Active Fatty liver us 2020(Confirmed) Active 1normal aat ceruloplasmin,neg hep c.Bsag pos HEP A nd B AB2neg hemochromatosis3 normal bzej6cxuzy catecholamines appear mbcyyp6obwtmthr renal artery gjzbwo7j/o secondary knycp5xawdf T11 kckyjvvxmzxc9xxxduce pre diabetic increased risk diabetes Social History Social History Type Response Smoking Status Never smoker entered on: 10/10/13 Sex
--- OUTSIDE RECORDS SUMMARY | 2022-06-28 15:50 | XMS_ITS | Continuity of Care Document ---
:1985 Author Organization [facility] Adult Address [address] [place] [address]- Care Team Providers Name Role Phone Cristóbal Abraham MD Primary Care Physician Encounter [facility] [place] Date(s): 07/05/19 - 09/02/19 [facility] Adult [address] [place] [address]- [facility] Attending Physician: Cristóbal Abraham MD Allergies, Adverse Reactions, Alerts Substance Reaction Severity Status NKA Active Immunizations Given and Recorded Vaccine Date Status Refusal Reason influenza virus vaccine, inactivated 04/20/19 Given influenza virus vaccine, inactivated1 03/10/17 Given Hepatitis A Adult Vaccine2 10/10/13 Given tetanus/diphtheria/pertussis, acel(Tdap) 09/13/12 Given FluLaval (oldterm) 04/16/10 Given tetanus-diphtheria toxoids (Td)3 04/29/04 Given 1Result Comment: [03/10/2017] [facility] [phone] Comment: [10/10/2013] #13 Admin Note: historical data Medications amLODIPine 5 mg oral tablet 5 mg, 1, tablet, By Mouth, 2 times a day, # 60 tablet, Refills 11, Tot. Refills 11, Maintenance, 06/11/18 11:05:29 EST, Route to Pharmacy Electronically, [id number], [facility], new dose Start Date: 06/11/18 Status: OrderedcloNIDine 0.1 mg oral tablet 0.1 mg, 1, tablet, By Mouth, 2 times a day, # 60 tablet, Refills 5, Tot. Refills 5, Maintenance, 05/24/19 10:18:00 EST, Route to Pharmacy Electronically, [facility], 173, cm, 05/09/19 15:22:00 EST, Height Start Date: 05/24/19 Status: OrderedFLUoxetine 20 mg oral tablet 1 tablet = 20 mg, By Mouth, Daily, # 30 tablet, 10 Refills, Maintenance, 07/29/19 7:36:00 EST, Tablet, [facility], 173, cm, 07/29/19 7:27:00 EST, Height Start Date: 07/29/19 Status: Orderedfolic acid 1 mg oral tablet 1 mg, 1, tablet, By Mouth, Daily, # 90 tablet, Refills 0, Maintenance, 07/05/19 10:23:00 EST Start Date: 07/05/19 Status: Orderedthiamine 100 mg oral tablet 100 mg, 1, tablet, By Mouth, Daily, # 90 tablet, Refills 6, Tot. Refills 6, Maintenance, 07/05/19 10:35:00 EST, Route to Pharmacy Electronically, [facility], 173, cm, 07/05/19 10:32:00 EST, Height Start Date: 07/05/19 Status: Ordered Problem List Condition Effective Dates Status Health Status Informant Abnormal liver function(Confirmed)1, Active 2, 3 Anxiety(Confirmed) Active Essential Hypertension(Confirmed)4, 5, Active 6 H/O herpes zoster(Confirmed)7 12/23/07 Active Hyperlipidemia(Confirmed) Active Impaired fasting glucose(Confirmed)8 Active Major depression(Confirmed) Active 1normal aat ceruloplasmin,neg hep c.Bsag pos HEP A nd B AB2neg hemochromatosis3 normal cjjq4xosdn catecholamines appear thzrtg9zlyewnys renal artery ylrfli8x/o secondary qajaw6luuez T11 clqscyutajhq1gflnfsr pre diabetic increased risk diabetes Social History Social History Type Response Smoking Status Never smoker entered on: 10/10/13 Sex
--- OUTSIDE RECORDS SUMMARY | 2022-06-28 15:50 | XMS_ITS | Continuity of Care Document ---
:1985 Author Organization [facility] Address [address] [place] [address]- Care Team Providers Name Role Phone Jarad SHAFFER, Cristóbal Sheth Primary Care Physician Encounter [facility] Date(s): 09/02/21 - 09/05/[address] [address]- Discharge Disposition: A-D/C Home Attending Physician: Albaro Bryant DO Admitting Physician: Keira SHAFFER, Roldan Referring Physician: Fernie Stone MD Allergies, Adverse Reactions, Alerts No Known [...] tetanus-diphtheria toxoids (Td)6 04/29/04 Given 1Result Comment: [id number] Comment: [facility]# [address] [phone] Comment: [03/10/2017] [facility] [phone] Comment: [facility]: [phone] Comment: [10/10/2013] #16Admin Note: historical data Medications amLODIPine 5 mg oral tablet 5 mg, 1, tablet, By Mouth, Daily, # 30 tablet, Refills 0, Tot. Refills 0, Maintenance, 07/21/21 7:40:00 EST, Do Not Route, new dose Start Date: 07/21/21 Stop Date: 08/20/21 Status: OrderedamLODIPine 5 mg oral tablet 5 mg, Tablet, By Mouth, 09/05/21 9:00:00 EDT Start Date: 09/05/21 Stop Date: 09/05/21 Status: CompletedcloNIDine 0.1 mg oral tablet 0.1 mg, 1, tablet, By Mouth, Daily, is morning, Refills 0, Maintenance, 08/26/21 14:00:00 EDT, Partial fill upon patient request if the prescription is for a schedule II opioid drug. Start Date: 08/26/21 Status: OrderedcloNIDine 0.2 mg oral tablet 1, tablet, By Mouth, Daily at bedtime, # 30 tablet, Refills 5, Route to Pharmacy Electronically, [facility], 174, cm, 05/27/21 15:55:00 EST, Height, 82, kg, 05/04/21 12:35:00 EST, Dry Weight Start Date: 06/14/21 Status: OrderedFLUoxetine 20 mg oral tablet 1 tablet = 20 mg, By Mouth, Daily, # 30 tablet, 5 Refills, Maintenance, 11/17/20 4:20:00 EDT, Tablet, [facility], 173, cm, 07/09/20 8:33:00 EST, Height Start Date: 11/17/20 Status: Orderedfolic acid 1 mg oral tablet 1 mg, 1, tablet, By Mouth, Daily, # 30 tablet, Refills 0, Tot. Refills 0, Maintenance, 08/29/21 10:08:00 EDT, Route to Pharmacy Electronically, [facility], Partial fill upon patient request if [...] tablet By Mouth Daily,x30 days, 174, cm, 2... Start Date: 05/06/21 Stop Date: 06/05/21 Status: Orderedomeprazole 20 mg oral enteric coated capsule 1 capsule, By Mouth, 2 times a day, # 60 capsule, 2 Refills, [facility], 174, cm, 05/27/21 15:55:00 EST, Height, 82, kg, 05/04/21 12:35:00 EST, Dry Weight Start Date: 06/14/21 Status: Orderedthiamine 100 mg oral tablet 100 mg, 1, tablet, By Mouth, Daily, for 30 days, # 30 tablet, Refills 0, Tot. Refills 0, Acute 09/28/21 10:08:00 EDT, 08/29/21 10:08:00 EDT, Route to Pharmacy Electronically, [facility], Partial fill upon patient request if the prescription is fo... Start Date: 08/29/21 Stop Date: 09/28/21 Status: OrderedtraZODone 50 mg oral tablet 1, tablet, By Mouth, Daily at bedtime, PRN, # 30 tablet, Refills 5, NEEDED FOR INSOMNIA, Route toPharmacy Electronically, [facility], 174, cm, 05/27/21 15:55:00 EST, Height, 82, kg, 05/04/21 12:35:00 EST, Dry Weight Start Date: 06/14/21 Status: Ordered Problem List Condition Effective Dates Status Health Status Informant Essential Hypertension(Confirmed)1, 2, Active 3 H/O herpes zoster(Confirmed)4 12/23/07 Active Hyperlipidemia(Confirmed) Active Impaired fasting glucose(Confirmed)5 Active Major depression in full Active remission(Confirmed) Fatty liver us 2020(Confirmed) Active 1urine catecholamines appear kmotdm7lcbsdyco renal artery lmqrgf2f/o secondary sqtkn0smbif T11 noogdmvbvruw1mwdschh pre diabetic increased risk diabetes Vital Signs Most recent to oldest 1 2 3 [Reference Range]: Height 173 cm 173 cm 173 cm (09/03/21 4:32 PM) (09/03/21 12:00 PM) (09/03/21 9:52 AM) Weight 73.9 kg 73.9 kg (09/02/21 1:58 PM) (09/02/21 8:49 AM) Oxygen Saturation [94-100 %] 100 % 100 % 98 % (09/05/21 2:00 PM) (09/05/21 10:00 AM) (09/05/21 8:00 AM) Pulse Rate [55-90 bpm] 77 bpm 66 bpm 48 bpm (09/05/21 2:00 PM) (09/05/21 10:00 AM) *L* (09/05/21 8:00 AM) Body Mass Index [18.5-24.99] 24.69 (09/02/21 1:58 PM) Blood Pressure [90-138/55-84 141/97 mm Hg 110/59 mm Hg mm Hg] *H* (09/05/21 9:19 AM) (09/05/21 2:00 PM) Systolic Blood Pressure 154 mm Hg 1 [90-138 mm Hg] *H* (09/05/21 10:00 AM) Diastolic Blood Pressure 95 mm Hg [55-84 mm Hg] *H* (09/05/21 10:00 AM) Respiratory Rate [16-30 16 br/min 16 br/min 20 br/mi n br/min] (09/05/21 2:00 PM) (09/05/21 10:00 AM) (09/05/21 8:00 AM) Temperature [96.8-100.4 98.1 DegF 98 DegF 97.7 Deg F DegF] (09/05/21 2:00 PM) (09/05/21 10:00 AM) (09/05/21 8:00 AM) Mode of Delivery (Oxygen) Room air Room air Room a ir (09/05/21 2:00 PM) (09/05/21 10:00 AM) (09/05/21 8:00 AM) Blood pressure sites Arm, right Arm, right Arm, right (09/05/21 2:00 PM) (09/05/21 8:00 AM) (09/05/21 4:00 A M) Temperature Route Oral Oral Oral (09/05/21 2:00 PM) (09/05/21 10:00 AM) (09/05/21 8:00 AM) Dry Weight 73.9 kg 73.9 kg (09/02/21 1:58 PM) (09/02/21 8:49 AM) Dry Weight Obtained Via Patient/family stated (09/02/21 8:49 AM) 1Result Comment: Notified [facility] Social History Social History Type Response Smoking Status Never (less than 100 in life time) entered on: 07/17/21 Sex
--- OUTSIDE RECORDS SUMMARY | 2022-06-28 15:50 | XMS_ITS | Continuity of Care Document ---
:1985 Author Organization [facility] Adult Address [address] [place] [address]- Care Team Providers Name Role Phone Cristóbal Abraham MD Primary Care Physician Encounter [facility] [place] Date(s): 01/11/21 - 01/18/21 [facility] Adult [address] [place] [id number]- Encounter Diagnosis Abnormal liver function (Discharge Diagnosis) - 01/11/21 Alcoholism (Discharge Diagnosis) - 01/11/21 Anxiety (Discharge Diagnosis) - 01/11/21 Essential Hypertension (Discharge Diagnosis) - 01/11/21 Fatty liver us 2020 (Discharge Diagnosis) - 01/11/21 Attending Physician: Cristóbal Abraham MD Allergies, Adverse [...] tetanus-diphtheria toxoids (Td)4 04/29/04 Given 1Result Comment: [facility]: [phone] Comment: [03/10/2017] [facility] [phone] 3Result Comment: [10/10/2013] #14Admin Note: historical data [...] 07/20/20 16:18:00 EST, Route to Pharmacy Electronically, [facility], new dose, 173, cm, 07/09/20 8:33:00 EST, Height Start Date: 07/20/20 Status: OrderedcloNIDine 0.1 mg oral tablet See Instructions, 1 am, # 30 each, Refills 5, Tot. Refills 5, Maintenance, 07/20/20 16:18:00 EST, Instructions Replace Required Details, Route to Pharmacy Electronically, [facility], 173, cm, 07/09/20 8:33:00 EST, Height [...] 5 Refills, Maintenance, 11/17/20 4:20:00 EDT, Tablet, [facility], 173, cm, 07/09/20 8:33:00 EST, Height Start Date: 11/17/20 Status: Orderedmirtazapine 15 mg oral tablet 1 tablet = 15 mg, By Mouth, Daily at bedtime, # 30 tablet, 0 Refills, Maintenance, 01/11/21 8:34:00 EDT, Tablet, Partial fill upon patient request if the prescription is for a schedule II opioid drug. Start Date: 01/11/21 Status: OrderedtraZODone 50 mg oral tablet 50 [...] HEP A nd B AB2neg hemochromatosis3 normal fudb8kxszz catecholamines appear juggpp9bihzvoux renal artery gdwokt4q/o secondary vwljg9mviye T11 wipjeoyilzpb4gajmwlj pre diabetic increased risk diabetes Diagnosis Diagnosis Type Effective Dates Health Clinical Infor mant Status Service Abnormal liver Discharge 01/11/21 function Diagnosis Alcoholism Discharge 01/11/21 Diagnosis Anxiety Discharge 01/11/21 Diagnosis Essential Discharge 01/11/21 Hypertension Diagnosis Fatty liver us 2020 Discharge 01/11/21 Diagnosis Procedures Procedure Date Related Diagnosis Body Site Status Reference laboratory1 01/06/21 Comple adonay Ultrasound scan of [place] liver fatty 01/04/21 Completed ;hanna 1Blood testing [facility] December 31, 2020 white count 4.6 hemoglobin 13.7 platelet count 158 sodium 134 potassium 3.1 chloride 97 bicarb 24 BUN 11 creatinine 0.88 random glucose 155 calcium 9.8 total bilirubin 0.6 AST 87 high ALT 230 high alk phos normal albumin normal. Repeat blood work sodium 140 potassium 4.3 chloride 105 bicarb 27 BUN creatinine normal liver function worsening AST 349 ALT 492 cholesterol 242 triglycerides 110 LDL 158 HDL 62. B12 886 vitamin D to 26.4 folate 15.7 thyroid TSH 0.99. Lyme test negative. On January 03 his white count 4.3 hemoglobin 14.9 platelet count 160,000. A1c five- point 2 repeat liver function AST rising 313 ALT 530 alk phos normal DORINDA screen was negative on 01 07 liver function slightly improved AST falling to 200 ALT 473 alk phos normal antimitochondrial anti-smooth muscle antibody are pending. Vital Signs Most recent to oldest [Reference Range]: 1 Height 173.00 cm (01/11/21 8:23 AM) Weight 82.0 kg (01/11/21 8:23 AM) Oxygen Saturation [94-100 %] 98 % (01/11/21 8:23 AM) Pulse Rate [55-90 bpm] 76 bpm (01/11/21 8:23 AM) Body Mass Index [18.5-24.99] 27.4 *H* (01/11/21 8:23 AM) Blood Pressure [90-138/55-84 mm Hg] 124/74 mm Hg (01/11/21 8:23 AM) Respiratory Rate [16-30 br/min] 14 br/min *L* (01/11/21 8:23 AM) Temperature [96.8-100.4 DegF] 98.6 DegF (01/11/21 8:23 AM) Mode of Delivery (Oxygen) Room air (01/11/21 8:23 AM) Blood pressure sites Arm, left (01/11/21 8:23 AM) Temperature Route Oral (01/11/21 8:23 AM) Weight Obtained Via Standing scale (01/11/21 8:23 AM) Social History Social History Type Response Smoking Status Never smoker entered on: 10/10/13 Sex
--- OUTSIDE RECORDS SUMMARY | 2022-06-28 15:50 | XMS_ITS | Continuity of Care Document ---
:1985 Author Organization [facility] Adult Address [address] [place] [address]- Care Team Providers Name Role Phone Cristóbal Abraham MD Primary Care Physician Encounter [facility] Date(s): 01/15/21 - 01/22/21 [facility] Adult [address] [place] [address]- Attending Physician: Cristóbal Abraham MD Allergies, Adverse [...] tetanus-diphtheria toxoids (Td)4 04/29/04 Given 1Result Comment: [facility]: [phone] Comment: [03/10/2017] [facility] [id number] 3Result Comment: [10/10/2013] #14Admin Note: historical data [...] 07/20/20 16:18:00 EST, Route to Pharmacy Electronically, [facility], new dose, 173, cm, 07/09/20 8:33:00 EST, Height Start Date: 07/20/20 Status: OrderedcloNIDine 0.1 mg oral tablet See Instructions, 1 am, # 30 each, Refills 5, Tot. Refills 5, Maintenance, 07/20/20 16:18:00 EST, Instructions Replace Required Details, Route to Pharmacy Electronically, [facility], 173, cm, 07/09/20 8:33:00 EST, Height [...] 5 Refills, Maintenance, 11/17/20 4:20:00 EDT, Tablet, [facility], 173, cm, 07/09/20 8:33:00 EST, Height [...] HEP A nd B AB2neg hemochromatosis3 normal xpst1tvulp catecholamines appear qcsfvo1zgoduykp renal artery ybtowc9r/o secondary wvcrj2okxid T11 tumqwtklkpkm5yksgbmq pre diabetic increased risk diabetes Social History Social History Type Response Smoking Status Never smoker entered on: 10/10/13 Sex
--- OUTSIDE RECORDS SUMMARY | 2022-06-28 15:50 | XMS_ITS | Continuity of Care Document ---
:1985 Author Organization [facility] [place] Adult Address [address] [place] [address]- Care Team Providers Name Role Phone Jarad SHAFFER, Cristóbal Sheth Primary Care Physician Encounter [facility] [place] Date(s): 11/14/21 - 12/14/21 [facility] [place] Adult [address] [place] [address]- Allergies, Adverse Reactions, Alerts No Known Allergies [...] tetanus-diphtheria toxoids (Td)6 04/29/04 Given 1Result Comment: [id number] Comment: [facility]# [address] [phone] Comment: [03/10/2017] [facility] [id number] Comment: [place]: [id number] Comment: [10/10/2013] #16Admin Note: historical data Medications [...] 09/17/21 9:37:00 EDT, Route to Pharmacy Electronically, [facility], 172, cm, 09/17/21 8:49:00 EDT, Height, [...] Fatty liver 2020(Confirmed) Active 1urine catecholamines appear xgyjvw5mcvzvidr renal artery aupjmg2q/o secondary tlcij1rmzvk T11 hxwjxpsmcnfp5yuhzyjp pre diabetic increased risk diabetes Social History Social History Type Response Smoking Status Never (less than 100 in life time) entered on: 07/17/21 Sex
--- OUTSIDE RECORDS SUMMARY | 2022-06-28 15:50 | XMS_ITS | Continuity of Care Document ---
:1985 Author Organization [facility] Adult Address [address] [place] [address]- Care Team Providers Name Role Phone Jarad SHAFFER, Cristóbal Sheth Primary Care Physician Encounter [facility] [place] Date(s): 12/13/19 - 01/12/20 [facility] Adult [address] [place] [address]- [facility] Allergies, Adverse Reactions, Alerts Substance Reaction Severity Status NKA Active Immunizations Given and Recorded Vaccine Date Status Refusal Reason influenza virus vaccine, inactivated 04/20/19 Given influenza virus vaccine, inactivated1 03/10/17 Given Hepatitis A Adult Vaccine2 10/10/13 Given tetanus/diphtheria/pertussis, acel(Tdap) 09/13/12 Given FluLaval (oldterm) 04/16/10 Given tetanus-diphtheria toxoids (Td)3 04/29/04 Given 1Result Comment: [03/10/2017] [facility] [id number] Comment: [10/10/2013] #13 Admin Note: historical data [...] 12/08/19 10:07:00 EDT, Route to Pharmacy Electronically, [facility], 173, , 11/10/19 7:57:00 EDT,Height Start Date: 12/08/19 Status: OrderedFLUoxetine 20 mg oral tablet 1 tablet = 20 mg, By Mouth, Daily, # 30 tablet, 5 Refills, Maintenance, 12/08/19 10:07:00 EDT, Tablet, [facility], 173, , 11/10/19 7:57:00 EDT, Height Start Date: 12/08/19 Status: Orderedfolic acid 1 mg oral tablet 1 mg, 1, tablet, By Mouth, Daily, # 30 tablet, Refills 0, Tot. Refills 0, Maintenance, 12/08/19 10:08:00 EDT, Route to Pharmacy Electronically, [facility], 173, , 11/10/19 7:57:00 EDT, Height Start Date: 12/08/19 Status: Orderedgabapentin 300 mg oral capsule 300 mg, 1, capsule, By Mouth, 3 times a day, # 270 capsule, Refills 0, Tot. Refills 0, Maintenance, 12/08/19 10:08:00 EDT, Route to Pharmacy Electronically, [facility], 173, , 11/10/19 7:57:00 EDT, Height Start Date: 12/08/19 Status: Orderedomeprazole 20 mg oral delayed release tablet 2 tablet = 40 mg, By Mouth, 2 times a day, # 120 tablet, 6 Refills, Maintenance, 12/08/19 17:03:00 EDT, [facility], 173, , 11/10/19 7:57:00 EDT, Height Start Date: 12/08/19 Status: Orderedthiamine 100 mg oral tablet 100 mg, 1, tablet, By Mouth, Daily, # 90 tablet, Refills 6, Tot. Refills 6, Maintenance, 07/05/19 10:35:00 EST, Route to Pharmacy Electronically, [facility], 173, , 07/05/19 10:32:00 EST, Height Start [...] HEP A nd B AB2neg hemochromatosis3 normal cahf0svjvr catecholamines appear pdnork2kbkzodbg renal artery crssve3h/o secondary qvouo2qbmkh T11 ftwpcdualmyj4werdnso pre diabetic increased risk diabetes Social History Social History Type Response Smoking Status Never smoker entered on: 10/10/13 Sex
--- OUTSIDE RECORDS SUMMARY | 2022-06-28 15:50 | XMS_ITS | Continuity of Care Document ---
:1985 Author Organization [facility] Adult Address [address] [place] [address]- Care Team Providers Name Role Phone Jarad SHAFFER, Cristóbal Sheth Primary Care Physician Encounter [facility] [place] Date(s): 01/24/20 - 02/23/20 [facility] Adult [address] [place] [address]- [facility] Allergies, Adverse Reactions, Alerts Substance Reaction Severity Status NKA Active Immunizations Given and Recorded Vaccine Date Status Refusal Reason influenza virus vaccine, inactivated 04/20/19 Given influenza virus vaccine, inactivated1 03/10/17 Given Hepatitis A Adult Vaccine2 10/10/13 Given tetanus/diphtheria/pertussis, acel(Tdap) 09/13/12 Given FluLaval (oldterm) 04/16/10 Given tetanus-diphtheria toxoids (Td)3 04/29/04 Given 1Result Comment: [03/10/2017] [facility] [id number] Comment: [10/10/2013] #13 Admin Note: historical data [...] 12/08/19 10:07:00 EDT, Route to Pharmacy Electronically, [facility], 173, , 11/10/19 7:57:00 EDT,Height Start Date: 12/08/19 Status: OrderedFLUoxetine 20 mg oral tablet 1 tablet = 20 mg, By Mouth, Daily, # 30 tablet, 5 Refills, Maintenance, 12/08/19 10:07:00 EDT, Tablet, [facility], 173, , 11/10/19 7:57:00 EDT, Height Start Date: 12/08/19 Status: Orderedfolic acid 1 mg oral tablet 1 mg, 1, tablet, By Mouth, Daily, # 30 tablet, Refills 5, Tot. Refills 5, Maintenance, 01/24/20 11:28:00 EDT, Route to Pharmacy Electronically, [facility], 173, , 11/10/19 7:57:00 EDT, Height Start Date: 01/24/20 Status: Orderedgabapentin 300 mg oral capsule 300 mg, 1, capsule, By Mouth, 3 times a day, # 270 capsule, Refills 0, Tot. Refills 0, Maintenance, 12/08/19 10:08:00 EDT, Route to Pharmacy Electronically, [facility], 173, , 11/10/19 7:57:00 EDT, Height Start Date: 12/08/19 Status: Orderedomeprazole 20 mg oral delayed release tablet 2 tablet = 40 mg, By Mouth, 2 times a day, # 120 tablet, 6 Refills, Maintenance, 12/08/19 17:03:00 EDT, [facility], 173, , 11/10/19 7:57:00 EDT, Height Start Date: 12/08/19 Status: Orderedthiamine 100 mg oral tablet 100 mg, 1, tablet, By Mouth, Daily, # 90 tablet, Refills 6, Tot. Refills 6, Maintenance, 07/05/19 10:35:00 EST, Route to Pharmacy Electronically, [facility], 173, , 07/05/19 10:32:00 EST, Height [...] HEP A nd B AB2neg hemochromatosis3 normal jyhh2bilzt catecholamines appear aqvtpk2gtdpeemi renal artery ebxbyo9w/o secondary pqnqv6uozkl T11 whjhpomnlevj8etomcef pre diabetic increased risk diabetes Social History Social History Type Response Smoking Status Never smoker entered on: 10/10/13 Sex
--- OUTSIDE RECORDS SUMMARY | 2022-06-28 15:50 | XMS_ITS | Continuity of Care Document ---
:1985 Author Organization [facility] Address [address] [place] [address]- Care Team Providers Name Role Phone Jarad SHAFFER, Cristóbal Sheth Primary Care Physician Encounter [facility] Date(s): 06/19/21 - 06/24/[address] [address]- Encounter Diagnosis Alcoholic ketoacidosis (Final) - 06/19/21 Discharge Disposition: A-D/C Home Attending Physician: Shawna Wong MD Admitting Physician: Laura Crabtree DO Referring Physician: Oj Bradley MD Allergies, Adverse Reactions, Alerts No Known [...] Comment: [facility]# [address] [phone] Comment: [03/10/2017] [facility] [phone] Comment: [facility]: [phone] Comment: [10/10/2013] #15 Admin Note: historical data Medications amLODIPine 5 mg oral tablet 5 mg, 1, tablet, By Mouth, 2 times a day, # 60 tablet, Refills 5, Tot. Refills 5, Maintenance, 07/20/20 16:18:00 EST, Route to Pharmacy Electronically, [facility], new dose, 173, cm, 07/09/20 8:33:00 EST, Height Start Date: 07/20/20 Status: OrderedamLODIPine 5 mg oral tablet 5 mg, Tablet, By Mouth, 06/24/21 9:00:00 EST Start Date: 06/24/21 Stop Date: 06/24/21 Status: CompletedcloNIDine 0.2 mg oral tablet 1, tablet, By Mouth, Daily at bedtime, # 30 tablet, Refills 5, Route to Pharmacy Electronically, [facility], 174, cm, 05/27/21 15:55:00 EST, Height, 82, kg, 05/04/21 12:35:00 EST, Dry Weight Start Date: 06/14/21 Status: OrderedFLUoxetine 20 mg oral tablet 1 tablet = 20 mg, By Mouth, Daily, # 30 tablet, 5 Refills, Maintenance, 11/17/20 4:20:00 EDT, Tablet, [facility], 173, cm, 07/09/20 8:33:00 EST, Height Start Date: 11/17/20 Status: Orderedmultivitamin Multiple Vitamins oral tablet 1 tablet, By Mouth, Daily, # 30 tablet, 0 Refills, Maintenance, 05/06/21 14:35:00 EST, Tablet, [facility], Partial fill upon patient request if the prescription is for a schedule II opioid drug., 1 tablet By Mouth Daily,x30 days, 174, cm, ... Start Date: 05/06/21 Stop Date: 06/05/21 Status: Orderedomeprazole 20 mg oral enteric coated capsule 1 capsule, By Mouth, 2 times a day, # 60 capsule, 2 Refills, [facility], 174, cm, 05/27/21 15:55:00 EST, Height, 82, kg, 05/04/21 12:35:00 EST, Dry Weight Start Date: 06/14/21 Status: OrderedtraZODone 50 mg oral tablet 1, tablet, By Mouth, Daily at bedtime, PRN, # 30 tablet, Refills 5, NEEDED FOR INSOMNIA, Route toPharmacy Electronically, [facility], 174, cm, 05/27/21 15:55:00 EST, Height, 82, kg, 05/04/21 12:35:00 EST, Dry Weight Start Date: 06/14/21 Status: Ordered Problem List Condition Effective Dates Status Health Status Informant Essential Hypertension(Confirmed)1, 2, Active 3 H/O herpes zoster(Confirmed)4 12/23/07 Active Hyperlipidemia(Confirmed) Active Impaired fasting glucose(Confirmed)5 Active Major depression in full Active remission(Confirmed) Fatty liver 2020(Confirmed) Active 1urine catecholamines appear prdtsv6mkghldss renal artery inuxsn9p/o secondary spkdj4yzqvi T11 ewecoypagutw3fxdsoqk pre diabetic increased risk diabetes Results Orders for Microbiology Reports Name Date Blood Culture 06/19/21 Blood Culture #2 06/19/21 Microbiology Reports TEST:Blood Culture, Second Order STATUS:Auth (Verified) BODY SITE: SOURCE:Blood COLLECTED DATE/TIME:06/19/21 10:30 AMBlood Culture, Second Order SPECIMEN DESCRIPTION : BLOOD R HAND SPECIAL REQUESTS : NONE CULTURE : NO GROWTH 5 DAYS. REPORT STATUS : FINAL 06/24/2021TEST:Blood Culture STATUS:Auth (Verified) BODY SITE: SOURCE:Blood COLLECTED DATE/TIME:06/19/21 10:25 AMBlood Culture SPECIMEN DESCRIPTION : BLOOD R AC SPECIAL REQUESTS : NONE CULTURE : NO GROWTH 5 DAYS. REPORT STATUS : FINAL 2Radiology Reports Exam Date Time Procedure Performing Provider Status 06/19/21 9:11 AM Chest 2 Views Frontal and Lat Marvin Kim; Gretchen th (Verified) Notes:(Chest 2 Views Frontal and Lat) Reason For Exam: Shortness of Breath, Fever;Other:RESULT: Chest 2 Views Frontal and Lat Chest 2 Views Frontal and Lat Hx of Present Illness: Hx of ETOH abuse. Patient states he had been sober for 1.5 months. Vodka drinking x 4 days; last drink last night around 1700. Unable to keep anything down. Upset stomach. Hx of gastritis. Actively vomiting. Requesting meds for withdrawal. Anxious.; Reason: Other:; Shortness of Breath, Fever; Clinical Question(s): Pneumonia COMPARISON: None. FINDINGS: LINES AND TUBES: None. LUNGS AND PLEURA: Clear lungs. Normal pulmonary vascularity. No pleural effusion. No pneumothorax. HEART, MEDIASTINUM AND ROJELIO: Heart is normal in size. Normal upper mediastinal and hilar contour. BONES AND SOFT TISSUES: No acute abnormality. IMPRESSION: No acute abnormality. WSN: [id number] Ordering Physician: Oj Bradley Dictated By: Aristides Cardenas MD Dictated Date/Time: 06/19/21 9:16 am Reviewed By: Aristides Cardenas MD Signed By: Aristides Cardenas MD Signed Date/Time: 06/19/21 9:16 am Transcribed By: REINIER Transcribed Date/Time: 06/19/21 9:13 am Vital Signs Most recent to oldest 1 2 3 [Reference Range]: Height 172 cm 172 cm 172 cm (06/24/21 1:42 PM) (06/24/21 8:10 AM) (06/23/21 3:0 3 PM) Weight 79.5 kg 79.5 kg 79.5 kg (06/24/21 8:10 AM) (06/19/21 11:21 AM) (06/19/21 9: 58 AM) Oxygen Saturation [94-100 100 % 100 % 100 % %] (06/24/21 1:42 PM) (06/24/21 8:10 AM) (06/24/21 3:0 0 AM) Pulse Rate [55-90 bpm] 101 bpm 1 63 bpm 53 bpm *H* (06/24/21 8:10 AM) *L* (06/24/21 1:42 PM) (06/24/21 3:00 AM) Body Mass Index 26.87 26.87 26.87 [18.5-24.99] *H* *H* *H* (06/24/21 8:10 AM) (06/19/21 11:21 AM) (06/19/21 9: 58 AM) Blood Pressure 125/90 mm Hg 125/72 mm Hg 93/65 mm Hg [90-138/55-84 mm Hg] (06/24/21 1:42 PM) (06/24/21 7:57 AM) ( 2 3:00 AM) Respiratory Rate [16-30 20 br/min 20 br/min 20 br/mi n br/min] (06/24/21 1:42 PM) (06/24/21 8:10 AM) (06/24/21 3:0 0 AM) Temperature [96.8-100.4 98.4 DegF 97.5 DegF 97.4 Deg F DegF] (06/24/21 1:42 PM) (06/24/21 8:10 AM) (06/24/21 3:0 0 AM) Liters per Minute 0 L/min (06/19/21 3:39 PM) Mode of Delivery (Oxygen) Room air Room air Room a ir (06/24/21 1:42 PM) (06/24/21 8:10 AM) (06/24/21 3:0 0 AM) Blood pressure sites Arm, right Arm, right Arm, right (06/24/21 1:42 PM) (06/24/21 3:00 AM) (06/23/21 3:0 3 PM) Temperature Route Oral Temporal Temporal (06/24/21 1:42 PM) (06/24/21 8:10 AM) (06/24/21 3:0 0 AM) Dry Weight 79.5 kg 79.5 kg 79.5 kg (06/24/21 8:10 AM) (06/19/21 11:21 AM) (06/19/21 9: 58 AM) Weight Obtained Via Patient/family stated (06/19/21 6:02 AM) Dry Weight Obtained Via Patient/family stated (06/19/21 6:02 AM) 1Result Comment: hiro aware of heart rate Social History Social History Type Response Smoking Status Never (less than 100 in life time) entered on: 06/19/21 Sex
--- OUTSIDE RECORDS SUMMARY | 2022-06-28 15:50 | XMS_ITS | Continuity of Care Document ---
:1985 Author Organization [facility] Address [address] [place] [address]- Care Team Providers Name Role Phone Cristóbal Abraham MD Primary Care Physician [place] [facility] [place] 08[place] [facility] [address] [place] [address] Encounter Diagnosis Essential Hypertension (Discharge Diagnosis) - 07/29/19 Major depression (Discharge Diagnosis) - 07/29/19 Alcoholism (Discharge Diagnosis) - 07/29/19 Attending Physician: Cristóbal Abraham MD Allergies, Adverse Reactions, Alerts Substance Reaction Severity Status NKA Active Immunizations Given and Recorded Vaccine Date Status Refusal Reason influenza virus vaccine, inactivated 04/20/19 Given influenza virus vaccine, inactivated1 03/10/17 Given Hepatitis A Adult Vaccine2 10/10/13 Given tetanus/diphtheria/pertussis, acel(Tdap) 09/13/12 Given FluLaval (oldterm) 04/16/10 Given tetanus-diphtheria toxoids (Td)3 04/29/04 Given 1Result Comment: [03/10/2017] [facility] [phone] Comment: [10/10/2013] #13 Admin Note: historical data Medications amLODIPine 5 mg oral tablet 5 mg, 1, tablet, By Mouth, 2 times a day, # 60 tablet, Refills 11, Tot. Refills 11, Maintenance, 06/11/18 11:05:29 EST, Route to Pharmacy Electronically, [id number], [facility], new dose Start Date: 06/11/18 Status: OrderedcloNIDine 0.1 mg oral tablet 0.1 mg, 1, tablet, By Mouth, 2 times a day, # 60 tablet, Refills 5, Tot. Refills 5, Maintenance, 05/24/19 10:18:00 EST, Route to Pharmacy Electronically, [facility], 173, cm, 05/09/19 15:22:00 EST, Height [...] 07/05/19 10:35:00 EST, Route to Pharmacy Electronically, [facility], 173, cm, 07/05/19 10:32:00 EST, Height Start Date: 07/05/19 Status: Ordered Problem List Condition Effective Dates Status Health Status Informant Abnormal liver function(Confirmed)1, Active 2, 3 Anxiety(Confirmed) Active Essential Hypertension(Confirmed)4, 5, Active 6 H/O herpes zoster(Confirmed)7 12/23/07 Active Hyperlipidemia(Confirmed) Active Impaired fasting glucose(Confirmed)8 Active Major depression(Confirmed) Active 1normal aat ceruloplasmin,neg hep c.Bsag pos HEP A nd B AB2neg hemochromatosis3 normal qzef4rsgcj catecholamines appear zwnnab4fowdrlnw renal artery eieboy7j/o secondary stdel7yrydp T11 jeokksicuski9dliigia pre diabetic increased risk diabetes Diagnosis Diagnosis Type Effective Dates Health Clinical Infor mant Status Service Essential Discharge 07/29/19 Hypertension Diagnosis Major depression Discharge 07/29/19 Diagnosis Alcoholism Discharge 07/29/19 Diagnosis Procedures Procedure Date Related Diagnosis Body Site Status CT angiography of thorax/abd/pelvs nad 07/06/[address] of brain /c spine nad 07/06/19 Com pleted Vital Signs Most recent to oldest [Reference Range]: 1 2 Height 173.00 cm 173.00 cm (07/29/19 7:27 AM) (07/29/19 7:15 AM) Weight 80.5 kg (07/29/19 7:15 AM) Oxygen Saturation [94-100 %] 98 % (07/29/19 7:15 AM) Pulse Rate [55-90 bpm] 100 bpm *H* (07/29/19 7:15 AM) Body Mass Index [18.5-24.99] 26.9 *H* (07/29/19 7:15 AM) Blood Pressure [90-138/55-84 mm Hg] 122/78 mm Hg (07/29/19 7:15 AM) Mode of Delivery (Oxygen) Room air (07/29/19 7:15 AM) Blood pressure sites Arm, left (07/29/19 7:15 AM) Weight Obtained Via Standing scale (07/29/19 7:15 AM) Social History Social History Type Response Smoking Status Never smoker entered on: 10/10/13 Sex
--- OUTSIDE RECORDS SUMMARY | 2022-06-28 15:50 | XMS_ITS | Continuity of Care Document ---
:1985 Author Organization [facility] Address [address] [place] [address]- Care Team Providers Name Role Phone Jarad SHAFFER, Cristóbal Sheth Primary Care Physician Encounter [facility] [place] Date(s): 05/04/19 - 06/10/19 [facility] [address] [place] [address]- [facility] Attending Physician: Not on Staff, Attending MD Allergies, Adverse Reactions, Alerts Substance Reaction Severity Status NKA Active Immunizations Given and Recorded Vaccine Date Status Refusal Reason influenza virus vaccine, inactivated 04/20/19 Given influenza virus vaccine, inactivated1 03/10/17 Given Hepatitis A Adult Vaccine2 10/10/13 Given tetanus/diphtheria/pertussis, acel(Tdap) 09/13/12 Given FluLaval (oldterm) 04/16/10 Given tetanus-diphtheria toxoids (Td)3 04/29/04 Given 1Result Comment: [03/10/2017] [facility] [phone] Comment: [10/10/2013] #13 Admin Note: historical data Medications amLODIPine 5 mg oral tablet 5 mg, 1, tablet, By Mouth, 2 times a day, # 60 tablet, Refills 11, Tot. Refills 11, Maintenance, 06/11/18 11:05:29 EST, Route to Pharmacy Electronically, [id number], [facility], new dose Start Date: 06/11/18 Status: OrderedcloNIDine 0.1 mg oral tablet 0.1 mg, 1, tablet, By Mouth, 2 times a day, # 60 tablet, Refills 5, Tot. Refills 5, Maintenance, 12/24/19 10:18:00 EST, Route to Pharmacy Electronically, [facility], 173, cm, 05/09/19 15:22:00 EST, Height Start Date: 05/24/19 Status: Ordered Problem List Condition Effective Dates Status Health Status Informant Anxiety(Confirmed) Active Essential Hypertension(Confirmed)1, 2, Active 3 H/O herpes zoster(Confirmed)4 12/23/07 Active Hyperlipidemia(Confirmed) Active Impaired fasting glucose(Confirmed)5 Active 1urine catecholamines appear gcntpu5raztqyri renal artery eecfss6z/o secondary mekwz2htheb T11 jjdrpjioiblr5qkemsav pre diabetic increased risk diabetes Social History Social History Type Response Smoking Status Never smoker entered on: 10/10/13 Sex
--- OUTSIDE RECORDS SUMMARY | 2022-06-28 15:50 | XMS_ITS | Continuity of Care Document ---
:1985 Author Organization [facility] Address [address] [place] [address]- Care Team Providers Name Role Phone Jarad SHAFFER, Cristóbal Sheth Primary Care Physician Encounter [facility] Date(s): 07/31/21 - 08/30/21 [facility] [address] [place] [address]- Allergies, Adverse Reactions, Alerts No Known Allergies [...] tetanus-diphtheria toxoids (Td)6 04/29/04 Given 1Result Comment: [id number] Comment: [facility]# [address] [phone] Comment: [03/10/2017] [facility] [phone] Comment: [facility]: [phone] Comment: [10/10/2013] #16Admin Note: historical data Medications [...] tablet, Refills 5, Route to Pharmacy Electronically, [facility], 174, cm, 05/27/21 15:55:00 EST, Height, 82, kg, 05/04/21 12:35:00 EST, Dry Weight Start Date: 06/14/21 Status: OrderedFLUoxetine 20 mg oral tablet 1 tablet = 20 mg, By Mouth, Daily, # 30 tablet, 5 Refills, Maintenance, 11/17/20 4:20:00 EDT, Tablet, [facility], 173, cm, 07/09/20 8:33:00 EST, Height [...] a day, # 60 capsule, 2 Refills, [facility], 174, cm, 05/27/21 15:55:00 EST, Height, 82, kg, 05/04/21 12:35:00 EST, Dry Weight Start Date: 06/14/21 Status: Orderedthiamine 100 mg oral tablet 100 mg, 1, tablet, By Mouth, Daily, for 30 days, # 30 tablet, Refills 0, Tot. Refills 0, Acute 09/28/21 10:08:00 EDT, 08/29/21 10:08:00 EDT, Route to Pharmacy Electronically, [facility], Partial fill upon patient request if the prescription is fo... Start Date: 08/29/21 Stop Date: 09/28/21 Status: OrderedtraZODone 50 mg oral tablet 1, tablet, By Mouth, Daily at bedtime, PRN, # 30 tablet, Refills 5, NEEDED FOR INSOMNIA, Route toPharmacy Electronically, [facility], 174, cm, 05/27/21 15:55:00 EST, Height, 82, kg, 05/04/21 12:35:00 EST, Dry Weight Start Date: 06/14/21 Status: Ordered Problem List Condition Effective Dates Status Health Status Informant Essential Hypertension(Confirmed)1, 2, Active 3 H/O herpes zoster(Confirmed)4 12/23/07 Active Hyperlipidemia(Confirmed) Active Impaired fasting glucose(Confirmed)5 Active Major depression in full Active remission(Confirmed) Fatty liver us 2020(Confirmed) Active 1urine catecholamines appear vzcprf9txxxuipi renal artery rnxmwb2j/o secondary tvxns4fivne T11 ktxwvjrjbpyl2ktszted pre diabetic increased risk diabetes Social History Social History Type Response Smoking Status Never (less than 100 in life time) entered on: 07/17/21 Sex
--- OUTSIDE RECORDS SUMMARY | 2022-06-28 15:50 | XMS_ITS | Continuity of Care Document ---
:1985 Author Organization [facility] Address [address] [place] [address]- Care Team Providers Name Role Phone Jarad SHAFFER, Cristóbal Sheth Primary Care Physician Encounter [facility] Date(s): 01/14/22 - 02/13/22 [facility] [address] [place] [address]- Allergies, Adverse Reactions, Alerts No Known Allergies [...] tetanus-diphtheria toxoids (Td)6 04/29/04 Given 1Result Comment: [id number] Comment: [facility]# [address] [phone] Comment: [03/10/2017] [facility] [phone] Comment: [facility]: [phone] Comment: [10/10/2013] #16Admin Note: historical data Medications [...] 09/17/21 9:37:00 EDT, Route to Pharmacy Electronically, [facility], 172, cm, 09/17/21 8:49:00 EDT, Height, [...] Fatty liver 2020(Confirmed) Active 1urine catecholamines appear ueffbu8vwnreikf renal artery xyarwx3d/o secondary vzdqy3elflb T11 hnfvnlhhiwxj6iwpqbfu pre diabetic increased risk diabetes Social History Social History Type Response Smoking Status Never (less than 100 in life time) entered on: 07/17/21 Sex Care Team PersonnelName: Jarad SHAFFER, Cristóbal Sheth Address: [address] [place] [phone]-
--- OUTSIDE RECORDS SUMMARY | 2022-06-28 15:50 | XMS_ITS | Continuity of Care Document ---
:1985 Author Organization [facility] Address [address] [place] [address]- Care Team Providers Name Role Phone Jarad SHAFFER, Cristóbal Sheth Primary Care Physician [place] [facility] [place] 11[place]17/19 [facility] [address] [place] [address]- [facility] Encounter Diagnosis Alcohol abuse (Discharge Diagnosis) - 11/10/19 Major depression (Discharge Diagnosis) - 11/10/19 Essential Hypertension (Discharge Diagnosis) - 11/10/19 Attending Physician: Not on Staff, Attending MD Allergies, Adverse Reactions, Alerts Substance Reaction Severity Status NKA Active Immunizations Given and Recorded Vaccine Date Status Refusal Reason influenza virus vaccine, inactivated 04/20/19 Given influenza virus vaccine, inactivated1 03/10/17 Given Hepatitis A Adult Vaccine2 10/10/13 Given tetanus/diphtheria/pertussis, acel(Tdap) 09/13/12 Given FluLaval (oldterm) 04/16/10 Given tetanus-diphtheria toxoids (Td)3 04/29/04 Given 1Result Comment: [03/10/2017] [facility] [phone] Comment: [10/10/2013] #13 Admin Note: historical data [...] 09/26/19 9:14:00 EDT, Route to Pharmacy Electronically, [facility], 173, , 09/09/19 7:35:00 EDT, Height Start Date: 09/26/19 Status: OrderedFLUoxetine 20 mg oral tablet 1 tablet = 20 mg, By Mouth, Daily, # 30 tablet, 5 Refills, Maintenance, 10/11/19 13:33:00 EDT, Tablet, [facility], 173, , 09/09/19 7:35:00 EDT, Height Start Date: 10/11/19 Status: Orderedfolic acid 1 mg oral tablet 1 mg, 1, tablet, By Mouth, Daily, # 30 tablet, Refills 0, Tot. Refills 0, Maintenance, 10/11/19 14:57:00 EDT, Route to Pharmacy Electronically, [facility], , 09/09/19 7:35:00 EDT, Height Start Date: 10/11/19 Status: Orderedgabapentin 300 mg oral capsule 300 mg, 1, capsule, By Mouth, 3 times a day, # 270 capsule, Refills 0, Tot. Refills 0, Maintenance, 09/26/19 11:53:00 EDT, Route to Pharmacy Electronically, [facility], 173, , 09/09/19 7:35:00 EDT, Height Start Date: 09/26/19 Status: Orderedthiamine 100 mg oral tablet 100 mg, 1, tablet, By Mouth, Daily, # 90 tablet, Refills 6, Tot. Refills 6, Maintenance, 07/05/19 10:35:00 EST, Route to Pharmacy Electronically, [facility], 173, , 07/05/19 10:32:00 EST, Height [...] HEP A nd B AB2neg hemochromatosis3 normal ooxx3mdeis catecholamines appear bmgnfl4tgfigvuf renal artery dmcudv2s/o secondary ecndb0baogh T11 ksfwmhegzhzc8ewkcmhx pre diabetic increased risk diabetes Diagnosis Diagnosis Type Effective [facility] Clinical Infor mant Status Service Alcohol abuse Discharge 11/10/19 Diagnosis Major depression Discharge 11/10/19 Diagnosis Essential Discharge 11/10/19 Hypertension Diagnosis Vital Signs Most recent to oldest [Reference Range]: 1 Height 173.00 cm (11/10/19 7:57 AM) Social History Social History Type Response Smoking Status Never smoker entered on: 10/10/13 Sex
--- OUTSIDE RECORDS SUMMARY | 2022-06-28 15:50 | XMS_ITS | Continuity of Care Document ---
:1985 Author Organization [facility] Address [address] [place] [address]- Care Team Providers Name Role Phone Jarad SHAFFER, Cristóbal Sheth Primary Care Physician [place] [facility] [place] 12/08/19 - 01/07/20 [facility] [address] [place] [address]- [facility] Allergies, Adverse Reactions, Alerts Substance Reaction Severity Status NKA Active Immunizations Given and Recorded Vaccine Date Status Refusal Reason influenza virus vaccine, inactivated 04/20/19 Given influenza virus vaccine, inactivated1 03/10/17 Given Hepatitis A Adult Vaccine2 10/10/13 Given tetanus/diphtheria/pertussis, acel(Tdap) 09/13/12 Given FluLaval (oldterm) 04/16/10 Given tetanus-diphtheria toxoids (Td)3 04/29/04 Given 1Result Comment: [03/10/2017] [facility] [phone] Comment: [10/10/2013] #13 Admin Note: historical data [...] 12/08/19 10:07:00 EDT, Route to Pharmacy Electronically, [facility], 173, , 11/10/19 7:57:00 EDT,Height Start Date: 12/08/19 Status: OrderedFLUoxetine 20 mg oral tablet 1 tablet = 20 mg, By Mouth, Daily, # 30 tablet, 5 Refills, Maintenance, 12/08/19 10:07:00 EDT, Tablet, [facility], 173, , 11/10/19 7:57:00 EDT, Height Start Date: 12/08/19 Status: Orderedfolic acid 1 mg oral tablet 1 mg, 1, tablet, By Mouth, Daily, # 30 tablet, Refills 0, Tot. Refills 0, Maintenance, 12/08/19 10:08:00 EDT, Route to Pharmacy Electronically, [facility], 173, , 11/10/19 7:57:00 EDT, Height Start Date: 12/08/19 Status: Orderedgabapentin 300 mg oral capsule 300 mg, 1, capsule, By Mouth, 3 times a day, # 270 capsule, Refills 0, Tot. Refills 0, Maintenance, 12/08/19 10:08:00 EDT, Route to Pharmacy Electronically, [facility], 173, , 11/10/19 7:57:00 EDT, Height Start Date: 12/08/19 Status: Orderedomeprazole 20 mg oral delayed release tablet 2 tablet = 40 mg, By Mouth, 2 times a day, # 120 tablet, 6 Refills, Maintenance, 12/08/19 17:03:00 EDT, [facility], 173, , 11/10/19 7:57:00 EDT, Height Start Date: 12/08/19 Status: Orderedthiamine 100 mg oral tablet 100 mg, 1, tablet, By Mouth, Daily, # 90 tablet, Refills 6, Tot. Refills 6, Maintenance, 07/05/19 10:35:00 EST, Route to Pharmacy Electronically, [facility], 173, , 07/05/19 10:32:00 EST, Height [...] HEP A nd B AB2neg hemochromatosis3 normal qkeu9ktuvt catecholamines appear hajgib4vqalahds renal artery hxwlkc8p/o secondary gotzy4oeqcw T11 yvdnymggwvxj2zetfkbf pre diabetic increased risk diabetes Social History Social History Type Response Smoking Status Never smoker entered on: 10/10/13 Sex
--- OUTSIDE RECORDS SUMMARY | 2022-06-28 15:50 | XMS_ITS | Continuity of Care Document ---
:1985 Author Organization [facility] Adult Address [address] [place] [address]- Care Team Providers Name Role Phone Cristóbal Abraham MD Primary Care Physician Encounter [facility] [place] [place] Date(s): 01/15/21 - 03/17/21 [facility] [address] [place] [address]- Attending Physician: Cristóbal Abraham MD Allergies, Adverse [...] tetanus-diphtheria toxoids (Td)4 04/29/04 Given 1Result Comment: [facility]: [phone] Comment: [03/10/2017] [facility] [phone] 3Result Comment: [10/10/2013] #14Admin Note: historical data [...] 07/20/20 16:18:00 EST, Route to Pharmacy Electronically, [facility], new dose, 173, cm, 07/09/20 8:33:00 EST, Height Start Date: 07/20/20 Status: OrderedcloNIDine 0.1 mg oral tablet See Instructions, 1 am, # 30 each, Refills 5, Tot. Refills 5, Maintenance, 07/20/20 16:18:00 EST, Instructions Replace Required Details, Route to Pharmacy Electronically, [facility], 173, cm, 07/09/20 8:33:00 EST, [...] Active Impaired fasting glucose(Confirmed)8 Active Fatty liver 2020(Confirmed) Active 1normal aat ceruloplasmin,neg hep c.Bsag pos HEP A nd B AB2neg hemochromatosis3 normal npsu7yhlja catecholamines appear icdcxc0fgrmwhvw renal artery dpbkbs3c/o secondary jprss4ikjoj T11 nmmfmjxsqcsf6blloddr pre diabetic increased risk diabetes Social History Social History Type Response Smoking Status Never smoker entered on: 10/10/13 Sex
--- OUTSIDE RECORDS SUMMARY | 2022-06-28 15:50 | XMS_ITS | Continuity of Care Document ---
:1985 Author Organization [facility] Adult Address [address] [place] [address]- Care Team Providers Name Role Phone Jarad SHAFFER, Cristóbal Sheth Primary Care Physician [place] [facility] [place] 12[place]20 [facility] Adult [address] [place] [address]- Allergies, Adverse Reactions, Alerts Substance Reaction Severity Status NKA Active Immunizations Given and Recorded Vaccine Date Status Refusal Reason influenza virus vaccine, inactivated 07/09/20 Given influenza virus vaccine, inactivated 04/20/19 Given influenza virus vaccine, inactivated1 03/10/17 Given Hepatitis A Adult Vaccine2 10/10/13 Given tetanus/diphtheria/pertussis, acel(Tdap) 09/13/12 Given FluLaval (oldterm) 04/16/10 Given tetanus-diphtheria toxoids (Td)3 04/29/04 Given 1Result Comment: [03/10/2017] [facility] [id number] Comment: [10/10/2013] #13 Admin Note: historical data Medications amLODIPine 5 mg oral tablet 5 mg, 1, tablet, By Mouth, 2 times a day, # 60 tablet, Refills 5, Tot. Refills 5, Maintenance, 07/20/20 16:18:00 EST, Route to Pharmacy Electronically, [facility], new dose, 173, cm, 07/09/20 8:33:00 EST, Height Start Date: 07/20/20 Status: OrderedcloNIDine 0.1 mg oral tablet 0.1 mg, 1, tablet, By Mouth, 2 times a day, # 60 tablet, Refills 5, Tot. Refills 5, Maintenance, 07/20/20 16:18:00 EST, Route to Pharmacy Electronically, [facility], 173, cm, 07/09/20 8:33:00 EST,Height Start Date: 07/20/20 Status: OrderedFLUoxetine 20 mg oral tablet 1 tablet = 20 mg, By Mouth, Daily, # 30 tablet, 5 Refills, Maintenance, 11/17/20 4:20:00 EDT, Tablet, [facility], 173, cm, 07/09/20 8:33:00 EST, Height Start Date: 11/17/20 Status: Orderedgabapentin 300 mg oral capsule See Instructions, weeks 1 and 2; take 1 am,1 night weeks 3 and 4;one night then stop, # 42 each, Refills 0, Tot. Refills 0, Maintenance, 07/09/20 8:38:00 EST, Instructions Replace Required Details, Route to Pharmacy Electronically, [facility],... Start Date: 07/09/20 Status: OrderedVivitrol Inj = 380 mg, Intramuscular, [...] HEP A nd B AB2neg hemochromatosis3 normal pvbi1nukrb catecholamines appear vzjdfz9pjrttqgb renal artery sdilqh3p/o secondary prcgp6usgyz T11 rqaaiqmrksvj8thjtnmx pre diabetic increased risk diabetes Social History Social History Type Response Smoking Status Never smoker entered on: 10/10/13 Sex
--- OUTSIDE RECORDS SUMMARY | 2022-06-28 15:50 | XMS_ITS | Continuity of Care Document ---
:1985 Author Organization [facility] Adult Address [address] [place] [address]- Care Team Providers Name Role Phone Cristóbal Abraham MD Primary Care Physician Encounter [facility] [place] Date(s): 08/23/19 - 09/23/19 [facility] Adult [address] [place] [address]- [facility] Attending Physician: Cristóbal Abraham MD Allergies, Adverse Reactions, Alerts Substance Reaction Severity Status NKA Active Immunizations Given and Recorded Vaccine Date Status Refusal Reason influenza virus vaccine, inactivated 04/20/19 Given influenza virus vaccine, inactivated1 03/10/17 Given Hepatitis A Adult Vaccine2 10/10/13 Given tetanus/diphtheria/pertussis, acel(Tdap) 09/13/12 Given FluLaval (oldterm) 04/16/10 Given tetanus-diphtheria toxoids (Td)3 04/29/04 Given 1Result Comment: [03/10/2017] [facility] [phone] Comment: [10/10/2013] #13 Admin Note: historical data Medications amLODIPine 5 mg oral tablet 5 mg, 1, tablet, By Mouth, 2 times a day, # 60 tablet, Refills 11, Tot. Refills 11, Maintenance, 06/11/18 11:05:29 EST, Route to Pharmacy Electronically, [id number], [facility], new dose Start Date: 06/11/18 Status: [...] 07/05/19 10:35:00 EST, Route to Pharmacy Electronically, [facility], 173, cm, 07/05/19 10:32:00 EST, Height [...] HEP A nd B AB2neg hemochromatosis3 normal xwqu9pcgvd catecholamines appear mftzmc3bjccmocu renal artery cxlxlg4m/o secondary ttsfx6tbsrh T11 ogxaparlhwcq8mlgxzvq pre diabetic increased risk diabetes Social History Social History Type Response Smoking Status Never smoker entered on: 10/10/13 Sex
--- OUTSIDE RECORDS SUMMARY | 2022-06-28 15:50 | XMS_ITS | Continuity of Care Document ---
:1985 Author Organization [facility] Adult Address [address] [place] [address]- Care Team Providers Name Role Phone Jarad SHAFFER, Cristóbal Sheth Primary Care Physician [place] [facility] [place]): 12/15/19 - 01/14/20 [facility] Adult [address] [place] [phone]- [facility] Allergies, Adverse Reactions, Alerts Substance Reaction Severity Status NKA Active Immunizations Given and Recorded Vaccine Date Status Refusal Reason influenza virus vaccine, inactivated 04/20/19 Given influenza virus vaccine, inactivated1 03/10/17 Given Hepatitis A Adult Vaccine2 10/10/13 Given tetanus/diphtheria/pertussis, acel(Tdap) 09/13/12 Given FluLaval (oldterm) 04/16/10 Given tetanus-diphtheria toxoids (Td)3 04/29/04 Given 1Result Comment: [03/10/2017] [facility] [id number] Comment: [10/10/2013] #13 Admin Note: historical data [...] 12/08/19 10:07:00 EDT, Route to Pharmacy Electronically, [facility], 173, , 11/10/19 7:57:00 EDT,Height Start Date: 12/08/19 Status: OrderedFLUoxetine 20 mg oral tablet 1 tablet = 20 mg, By Mouth, Daily, # 30 tablet, 5 Refills, Maintenance, 12/08/19 10:07:00 EDT, Tablet, [facility], 173, , 11/10/19 7:57:00 EDT, Height Start Date: 12/08/19 Status: Orderedfolic acid 1 mg oral tablet 1 mg, 1, tablet, By Mouth, Daily, # 30 tablet, Refills 0, Tot. Refills 0, Maintenance, 12/08/19 10:08:00 EDT, Route to Pharmacy Electronically, [facility], 173, , 11/10/19 7:57:00 EDT, Height Start Date: 12/08/19 Status: Orderedgabapentin 300 mg oral capsule 300 mg, 1, capsule, By Mouth, 3 times a day, # 270 capsule, Refills 0, Tot. Refills 0, Maintenance, 12/08/19 10:08:00 EDT, Route to Pharmacy Electronically, [facility], 173, , 11/10/19 7:57:00 EDT, Height Start Date: 12/08/19 Status: Orderedomeprazole 20 mg oral delayed release tablet 2 tablet = 40 mg, By Mouth, 2 times a day, # 120 tablet, 6 Refills, Maintenance, 12/08/19 17:03:00 EDT, [facility], 173, , 11/10/19 7:57:00 EDT, Height Start Date: 12/08/19 Status: Orderedthiamine 100 mg oral tablet 100 mg, 1, tablet, By Mouth, Daily, # 90 tablet, Refills 6, Tot. Refills 6, Maintenance, 07/05/19 10:35:00 EST, Route to Pharmacy Electronically, [facility], 173, , 07/05/19 10:32:00 EST, Height Start [...] HEP A nd B AB2neg hemochromatosis3 normal ouem9jaeov catecholamines appear wlghhk4rgbdcrrq renal artery ejlkhd8a/o secondary iqoue7phpkl T11 zmutkfgilyxx3wpgscqc pre diabetic increased risk diabetes Social History Social History Type Response Smoking Status Never smoker entered on: 10/10/13 Sex
--- OUTSIDE RECORDS SUMMARY | 2022-06-28 15:50 | XMS_ITS | Continuity of Care Document ---
:1985 Author Organization [facility] Adult Address [address] [place] [address]- Care Team Providers Name Role Phone Cristóbal Abraham MD Primary Care Physician Encounter [facility] [place] Date(s): 07/09/20 - 07/16/20 [facility] Adult [address] [place] [address]- Encounter Diagnosis Alcoholism (Discharge Diagnosis) - 07/09/20 Physical exam (Discharge Diagnosis) - 07/09/20 Essential Hypertension (Discharge Diagnosis) - 07/09/20 Impaired fasting glucose (Discharge Diagnosis) - 07/09/20 Hyperlipidemia (Discharge Diagnosis) - 07/09/20 Major depression (Discharge Diagnosis) - 07/09/20 Attending Physician: Cristóbal Abraham MD Allergies, Adverse [...] toxoids (Td)3 04/29/04 Given 1Result Comment: [03/10/2017] [facility] [phone] Comment: [10/10/2013] #13 Admin Note: historical data Medications amLODIPine 5 mg oral tablet 5 mg, 1, tablet, By Mouth, 2 times a day, # 60 tablet, Refills 5, Tot. Refills 5, Maintenance, 12/08/19 10:07:00 EDT, Route to Pharmacy Electronically, [facility], new dose, 173, cm, 11/10/19 7:57:00 EDT, Height Start Date: 12/08/19 Status: OrderedcloNIDine 0.1 mg oral tablet 0.1 mg, 1, tablet, By Mouth, 2 times a day, # 60 tablet, Refills 5, Tot. Refills 5, Maintenance, 12/08/19 10:07:00 EDT, Route to Pharmacy Electronically, [facility], 173, cm, 11/10/19 7:57:00 EDT,Height Start Date: 12/08/19 Status: OrderedFLUoxetine 20 mg oral tablet 1 tablet = 20 mg, By Mouth, Daily, # 30 tablet, 5 Refills, Maintenance, 05/16/20 13:09:00 EST, Tablet, [facility], 173, cm, 11/10/19 7:57:00 EDT, Height Start Date: 05/16/20 Status: Orderedgabapentin 300 mg oral capsule See Instructions, weeks 1 and 2; take 1 am,1 night weeks 3 and 4;one night then stop, # 42 each, Refills 0, Tot. Refills 0, Maintenance, 07/09/20 8:38:00 EST, Instructions Replace Required Details, Route to Pharmacy Electronically, [facility],... Start Date: 07/09/20 Status: OrderedVivitrol Inj [...] HEP A nd B AB2neg hemochromatosis3 normal szoc6khbqo catecholamines appear grbdas3qfyscoqk renal artery igqykg4v/o secondary ltdxn6eatzd T11 jyadalxegsjs9pcuwwru pre diabetic increased risk diabetes Diagnosis Diagnosis Type Effective Dates Health Clinical Infor [facility] Status Service Physical exam Discharge 07/09/20 Diagnosis Alcoholism Discharge 07/09/20 Diagnosis Essential Discharge 07/09/20 Hypertension Diagnosis Impaired fasting Discharge 07/09/20 glucose Diagnosis Hyperlipidemia Discharge 07/09/20 Diagnosis Major depression Discharge 07/09/20 Diagnosis Vital Signs Most recent to oldest [Reference 1 2 3 Range]: Height 173.00 cm 173.00 cm 173.00 cm (07/09/20 8:33 AM) (07/09/20 8:17 AM) (07/09/20 8:13 A M) Weight 80.4 kg (07/09/20 8:13 AM) Oxygen Saturation [94-100 %] 98 % (07/09/20 8:13 AM) Pulse Rate [55-90 bpm] 98 bpm *H* (07/09/20 8:13 AM) Body Mass Index [18.5-24.99] 26.86 *H* (07/09/20 8:13 AM) Blood Pressure [90-138/55-84 mm 120/86 mm Hg 132/88 mm Hg 150/90 mm Hg Hg] (07/09/20 8:33 AM) (07/09/20 8:17 AM) *H* (07/09/20 8:13 AM) Respiratory Rate [16-30 br/min] 16 br/min (07/09/20 8:13 AM) Temperature [96.8-100.4 DegF] 98.4 DegF (07/09/20 8:13 AM) Blood pressure sites Arm, left Arm, left Arm, left (07/09/20 8:33 AM) (07/09/20 8:17 AM) (07/09/20 8:13 A M) Temperature Route Oral (07/09/20 8:13 AM) Social History Social History Type Response Smoking Status Never smoker entered on: 10/10/13 Sex
--- OUTSIDE RECORDS SUMMARY | 2022-06-28 15:50 | XMS_ITS | Continuity of Care Document ---
:1985 Author Organization [facility] Adult Address [address] [place] [phone]- Care Team Providers Name Role Phone Jarad SHAFFER, Cristóbal Sheth Primary Care Physician Encounter [facility] Date(s): 05/21/21 - 06/20/21 [facility] Adult [address] [place] [phone]- Allergies, Adverse Reactions, Alerts No Known Allergies [...] tetanus-diphtheria toxoids (Td)5 04/29/04 Given 1Result Comment: [facility]# [address] [phone] Comment: [03/10/2017] [facility] [id number] Comment: [facility]: [id number] Comment: [10/10/2013] #15 Admin Note: historical data Medications amLODIPine 5 mg oral tablet 5 mg, 1, tablet, By Mouth, 2 times a day, # 60 tablet, Refills 5, Tot. Refills 5, Maintenance, 07/20/20 16:18:00 EST, Route to Pharmacy Electronically, [facility], new dose, 173, cm, 07/09/20 8:33:00 EST, Height Start Date: 07/20/20 Status: OrderedcloNIDine 0.2 mg oral tablet 1, tablet, By Mouth, Daily at bedtime, # 30 tablet, Refills 5, Route to Pharmacy Electronically, [facility], 174, cm, 05/27/21 15:55:00 EST, Height, 82, kg, 05/04/21 12:35:00 EST, Dry Weight Start Date: 06/14/21 Status: OrderedFLUoxetine 20 mg oral tablet 1 tablet = 20 mg, By Mouth, Daily, # 30 tablet, 5 Refills, Maintenance, 11/17/20 4:20:00 EDT, Tablet, [facility], 173, cm, 07/09/20 8:33:00 EST, Height Start Date: 11/17/20 Status: Orderedmultivitamin Multiple Vitamins oral tablet 1 tablet, By Mouth, Daily, # 30 tablet, 0 Refills, Maintenance, 05/06/21 14:35:00 EST, Tablet, [facility], Partial fill upon patient request if [...] a day, # 60 capsule, 2 Refills, [facility], 174, cm, 05/27/21 15:55:00 EST, Height, 82, kg, 05/04/21 12:35:00 EST, Dry Weight Start Date: 06/14/21 Status: OrderedtraZODone 50 mg oral tablet 1, tablet, By Mouth, Daily at bedtime, PRN, # 30 tablet, Refills 5, NEEDED FOR INSOMNIA, Route toPharmacy Electronically, [facility], 174, cm, 05/27/21 15:55:00 EST, Height, 82, kg, 05/04/21 12:35:00 EST, Dry Weight Start Date: 06/14/21 Status: Ordered Problem List Condition Effective Dates Status Health Status Informant Essential Hypertension(Confirmed)1, 2, Active 3 H/O herpes zoster(Confirmed)4 12/23/07 Active Hyperlipidemia(Confirmed) Active Impaired fasting glucose(Confirmed)5 Active Major depression in full Active remission(Confirmed) Fatty liver 2020(Confirmed) Active 1urine catecholamines appear mjvutd4blqwmbwr renal artery ivakbh9n/o secondary okkfq8emdbo T11 xzzidfpppkyi5nvzcffv pre diabetic increased risk diabetes Social History Social History Type Response Smoking Status Never (less than 100 in life time) entered on: 06/19/21 Sex
--- OUTSIDE RECORDS SUMMARY | 2022-06-28 15:50 | XMS_ITS | Continuity of Care Document ---
:1985 Author Organization [facility] Adult Address [address] [place] [address]- Care Team Providers Name Role Phone Cristóbal Abraham MD Primary Care Physician Encounter [facility] [place] Date(s): 05/20/19 - 05/27/19 [facility] Adult [address] [place] [address]- [facility] Attending Physician: Cristóbal Abraham MD Allergies, Adverse Reactions, Alerts Substance Reaction Severity Status NKA Active Immunizations Given and Recorded Vaccine Date Status Refusal Reason influenza virus vaccine, inactivated 04/20/19 Given influenza virus vaccine, inactivated1 03/10/17 Given Hepatitis A Adult Vaccine2 10/10/13 Given tetanus/diphtheria/pertussis, acel(Tdap) 09/13/12 Given FluLaval (oldterm) 04/16/10 Given tetanus-diphtheria toxoids (Td)3 04/29/04 Given 1Result Comment: [03/10/2017] [facility] [id number] Comment: [10/10/2013] #13 Admin Note: historical data Medications amLODIPine 5 mg oral tablet 5 mg, 1, tablet, By Mouth, 2 times a day, # 60 tablet, Refills 11, Tot. Refills 11, Maintenance, 06/11/18 11:05:29 EST, Route to Pharmacy Electronically, [id number], [facility], new dose Start Date: 06/11/18 Status: [...] Impaired fasting glucose(Confirmed)5 Active 1urine catecholamines appear lpsntk8hnniflif renal artery ckrvgd4d/o secondary wnzwo6xoynh T11 itaodffopnmh8bxckmps pre diabetic increased risk diabetes Vital Signs Most recent to oldest [Reference Range]: 1 Pulse Rate [55-90 bpm] 70 bpm (05/20/19 10:05 AM) Blood Pressure [90-138/55-84 mm Hg] 126/81 mm Hg (05/20/19 10:05 AM) Social History Social History Type Response Smoking Status Never smoker entered on: 10/10/13 Sex
--- OUTSIDE RECORDS SUMMARY | 2022-06-28 15:51 | XMS_ITS | Continuity of Care Document ---
:1985 Author Organization [facility] Adult Address [address] [place] [address]- Care Team Providers Name Role Phone Jarad SHAFFER, Cristóbal Sheth Primary Care Physician [place] [facility] [place](s): 05/16/20 - 06/15/20 [facility] Adult [address] [place] [address]- Allergies, Adverse Reactions, Alerts Substance Reaction Severity Status NKA Active Immunizations Given and Recorded Vaccine Date Status Refusal Reason influenza virus vaccine, inactivated 04/20/19 Given influenza virus vaccine, inactivated1 03/10/17 Given Hepatitis A Adult Vaccine2 10/10/13 Given tetanus/diphtheria/pertussis, acel(Tdap) 09/13/12 Given FluLaval (oldterm) 04/16/10 Given tetanus-diphtheria toxoids (Td)3 04/29/04 Given 1Result Comment: [03/10/2017] [facility] [phone] Comment: [10/10/2013] #13 Admin Note: historical data [...] 12/08/19 10:07:00 EDT, Route to Pharmacy Electronically, [facility], 173, , 11/10/19 7:57:00 EDT,Height Start Date: 12/08/19 Status: OrderedFLUoxetine 20 mg oral tablet 1 tablet = 20 mg, By Mouth, Daily, # 30 tablet, 5 Refills, Maintenance, 05/16/20 13:09:00 EST, Tablet, [facility], 173, , 11/10/19 7:57:00 EDT, Height Start Date: 05/16/20 Status: Orderedfolic acid 1 mg oral tablet 1 mg, 1, tablet, By Mouth, Daily, # 30 tablet, Refills 5, Tot. Refills 5, Maintenance, 01/24/20 11:28:00 EDT, Route to Pharmacy Electronically, [facility], 173, , 11/10/19 7:57:00 EDT, Height Start Date: 01/24/20 Status: Orderedgabapentin 300 mg oral capsule 1, capsule, By Mouth, 3 times a day, # 90 capsule, Refills 2, Tot. Refills 0, Maintenance, 05/30/20 16:02:00 EST, Route to Pharmacy Electronically, [facility], 173, , 11/10/19 7:57:00 EDT, Height Start Date: 05/30/20 Status: Orderedomeprazole 20 mg oral delayed release tablet 2 tablet = 40 mg, By Mouth, 2 times a day, # 120 tablet, 6 Refills, Maintenance, 12/08/19 17:03:00 EDT, [facility], 173, , 11/10/19 7:57:00 EDT, Height Start Date: 12/08/19 Status: Orderedthiamine 100 mg oral tablet 100 mg, 1, tablet, By Mouth, Daily, # 90 tablet, Refills 6, Tot. Refills 6, Maintenance, 07/05/19 10:35:00 EST, Route to Pharmacy Electronically, [facility], 173, , 07/05/19 10:32:00 EST, Height [...] HEP A nd B AB2neg hemochromatosis3 normal nrxi5bwmoe catecholamines appear ttqhsg1tvakreck renal artery gmaztw1s/o secondary iqcnx2jxtal T11 pfqjivlcklrr7olfnnsv pre diabetic increased risk diabetes Social History Social History Type Response Smoking Status Never smoker entered on: 10/10/13 Sex
--- OUTSIDE RECORDS SUMMARY | 2022-06-28 15:51 | XMS_ITS | Continuity of Care Document ---
:1985 Author Organization [facility] Adult Address [address] [place] [address]- Care Team Providers Name Role Phone Cristóbal Abraham MD Primary Care Physician [place] [facility] [place](s): 05/05/19 - 05/12/19 [facility] Adult [address] [place] [phone]- [facility] Encounter Diagnosis Alcoholism /alcohol abuse (Discharge Diagnosis) - 05/05/19 Essential Hypertension (Discharge Diagnosis) - 05/05/19 Abnormal liver function (Discharge Diagnosis) - 05/05/19 Anxiety (Discharge Diagnosis) - 05/05/19 Attending Physician: Cristóbal Abraham MD Allergies, Adverse Reactions, Alerts Substance Reaction Severity Status NKA Active Immunizations Given and Recorded Vaccine Date Status Refusal Reason influenza virus vaccine, inactivated 04/20/19 Given influenza virus vaccine, inactivated1 03/10/17 Given Hepatitis A Adult Vaccine2 10/10/13 Given tetanus/diphtheria/pertussis, acel(Tdap) 09/13/12 Given FluLaval (oldterm) 04/16/10 Given tetanus-diphtheria toxoids (Td)3 04/29/04 Given 1Result Comment: [03/10/2017] [facility] [id number] Comment: [10/10/2013] #13 Admin Note: historical data Medications amLODIPine 5 mg oral tablet 5 mg, 1, tablet, By Mouth, 2 times a day, # 60 tablet, Refills 11, Tot. Refills 11, Maintenance, 06/11/18 11:05:29 EST, Route to Pharmacy Electronically, [id number], [facility], new dose Start Date: 06/11/18 Status: OrderedcloNIDine 0.1 mg oral tablet 0.1 mg, 1, tablet, By Mouth, 2 times a day, # 30 tablet, Refills 0, Tot. Refills 0, Maintenance, 05/05/19 7:41:58 EST, Route to Pharmacy Electronically, [id number], [facility], 173, cm, 05/05/19 7:27:36 EST, Height Start Date: 05/05/19 Status: Ordered Problem List Condition Effective Dates Status Health Status Informant Anxiety(Confirmed) Active Essential Hypertension(Confirmed)1, 2, Active 3 H/O herpes zoster(Confirmed)4 12/23/07 Active Hyperlipidemia(Confirmed) Active Impaired fasting glucose(Confirmed)5 Active 1urine catecholamines appear uuaqcy1swulhpwn renal artery qsrqkn8u/o secondary gijou0xycdh T11 aaabyzauvpdz2wiyfbkq pre diabetic increased risk diabetes Diagnosis Diagnosis Type Effective Dates Health Clinical Infor mant Status Service Alcoholism /alcohol Discharge 05/05/19 abuse Diagnosis Essential Discharge 05/05/19 Hypertension Diagnosis Abnormal liver Discharge 05/05/19 function Diagnosis Anxiety Discharge 05/05/19 Diagnosis Procedures Procedure Date Related Diagnosis Body Site Status CT of thorax nad 05/03/19 Completed Vital Signs Most recent to oldest 1 2 3 [Reference Range]: Height 173.00 cm 173.00 cm 173.00 cm (05/09/19 3:22 PM) (05/05/19 7:27 AM) (05/05/19 7:1 1 AM) Weight 81.8 kg (05/05/19 7:11 AM) Oxygen Saturation [94-100 %] 99 % (05/05/19 7:11 AM) Pulse Rate [55-90 bpm] 78 bpm 66 bpm (05/09/19 3:22 PM) (05/05/19 7:11 AM) Body Mass Index [18.5-24.99] 27.33 *H* (05/05/19 7:11 AM) Blood Pressure [90-138/55-84 mm 142/88 mm Hg 120/80 mm Hg 150/100 mm Hg Hg] *H* (05/05/19 7:27 AM) *H* (05/09/19 3:22 PM) (05/05/19 7:11 AM) Mode of Delivery (Oxygen) Room air (05/05/19 7:11 AM) Blood pressure sites Arm, left Arm, left Arm, right (05/09/19 3:22 PM) (05/05/19 7:27 AM) (05/05/19 7:1 1 AM) Weight Obtained Via Standing scale (05/05/19 7:11 AM) Social History Social History Type Response Smoking Status Never smoker entered on: 10/10/13 Sex
--- OUTSIDE RECORDS SUMMARY | 2022-06-28 15:51 | XMS_ITS | Continuity of Care Document ---
:1985 Author Organization [facility] Address [address] [place] [address]- Care Team Providers Name Role Phone Cristóbal Abraham MD Primary Care Physician Encounter [facility] Date(s): 10/26/21 - 10/27/[address] [address]- Encounter Diagnosis Alcohol intoxication (Final) - 10/27/21 Discharge Disposition: A-D/C Home Attending Physician: Jose Luis Mars DO Admitting Physician: Jose Luis Mars DO Referring Physician: Not on Staff, Referring MD [...] tetanus-diphtheria toxoids (Td)6 04/29/04 Given 1Result Comment: [id number] Comment: [facility]# [address] [phone] Comment: [03/10/2017] [facility] [phone] Comment: [facility]: [phone] Comment: [10/10/2013] #16Admin Note: historical data Medications [...] 09/17/21 9:37:00 EDT, Route to Pharmacy Electronically, [facility], 172, cm, 09/17/21 8:49:00 EDT, Height, 75, kg, 09/12/21 17:05:00 EDT,... Start Date: 09/17/21 Status: Ordered Problem List Condition Effective Dates Status Health Status Informant Essential Hypertension(Confirmed)1, 2, Active 3 H/O herpes zoster(Confirmed)4 12/23/07 Active Hyperlipidemia(Confirmed) Active Impaired fasting glucose(Confirmed)5 Active Major depression in full Active remission(Confirmed) Fatty liver 2020(Confirmed) Active 1urine catecholamines appear asdnva6nkanrixn renal artery tbtiii0z/o secondary ogtkz5pwocs T11 gmqaqqsrfgow2ubyaged pre diabetic increased risk diabetes Vital Signs Most recent to oldest 1 2 3 [Reference Range]: Height 172 cm 172 cm 172 cm (10/27/21 2:41 PM) (10/27/21 6:31 AM) (10/27/21 12: 39 AM) Weight 81 kg 81 kg 81 kg (10/27/21 6:31 AM) (10/27/21 12:39 AM) (10/26/21 8: 32 PM) Oxygen Saturation [94-100 %] 100 % 100 % 99 % (10/27/21 7:41 PM) (10/27/21 2:41 PM) (10/27/21 9:0 4 AM) Pulse Rate [55-90 bpm] 88 bpm 100 bpm 125 bpm (10/27/21 7:41 PM) *H* *H* (10/27/21 4:58 PM) (10/27/21 2:41 PM) Body Mass Index [18.5-24.99] 27.38 27.38 27. 38 *H* *H* *H* (10/27/21 6:31 AM) (10/27/21 12:39 AM) (10/26/21 8: 32 PM) Blood Pressure [90-138/55-84 161/98 mm Hg 169/106 mm Hg 171 /105 mm Hg mm Hg] *H* *H* *H* (10/27/21 7:41 PM) (10/27/21 4:58 PM) (10/27/21 12: 53 PM) Respiratory Rate [16-30 20 br/min 18 br/min 18 br/mi n br/min] (10/27/21 7:41 PM) (10/27/21 4:58 PM) (10/27/21 12: 53 PM) Temperature [96.8-100.4 DegF] 98.7 DegF 97.8 DegF 98 .3 DegF (10/27/21 7:41 PM) (10/27/21 2:41 PM) (10/27/21 6:3 1 AM) Liters per Minute 0 L/min (10/27/21 2:41 PM) Mode of Delivery (Oxygen) Room air Room air Room a ir (10/27/21 7:41 PM) (10/27/21 2:41 PM) (10/27/21 9:0 4 AM) Blood pressure sites Arm, right Arm, right Arm, right (10/27/21 7:41 PM) (10/27/21 9:04 AM) (10/27/21 6:3 1 AM) Temperature Route Oral Oral Oral (10/27/21 7:41 PM) (10/27/21 2:41 PM) (10/27/21 6:3 1 AM) Dry Weight 81 kg 81 kg 81 kg (10/27/21 6:31 AM) (10/27/21 12:39 AM) (10/26/21 8: 32 PM) Social History Social History Type Response Smoking Status Never (less than 100 in life time) entered on: 07/17/21 Sex
--- OUTSIDE RECORDS SUMMARY | 2022-06-28 15:51 | XMS_ITS | Continuity of Care Document ---
:1985 Author Organization [facility] [place] Address [address] [place] [address]- Care Team Providers Name Role Phone Cristóbal Abraham MD Primary Care Physician [place] [facility] [place] 08/12/19 [facility] [place] [address] [place] [address]- [facility] Attending Physician: Cristóbal Abraham MD Allergies, Adverse Reactions, Alerts Substance Reaction Severity Status NKA Active Immunizations Given and Recorded Vaccine Date Status Refusal Reason influenza virus vaccine, inactivated 04/20/19 Given influenza virus vaccine, inactivated1 03/10/17 Given Hepatitis A Adult Vaccine2 10/10/13 Given tetanus/diphtheria/pertussis, acel(Tdap) 09/13/12 Given FluLaval (oldterm) 04/16/10 Given tetanus-diphtheria toxoids (Td)3 04/29/04 Given 1Result Comment: [03/10/2017] [facility] [phone] Comment: [10/10/2013] #13 Admin Note: historical data Medications amLODIPine 5 mg oral tablet 5 mg, 1, tablet, By Mouth, 2 times a day, # 60 tablet, Refills 11, Tot. Refills 11, Maintenance, 06/11/18 11:05:29 EST, Route to Pharmacy Electronically, [id number], [facility], new dose Start Date: 06/11/18 Status: [...] 07/05/19 10:35:00 EST, Route to Pharmacy Electronically, [facility], 173, cm, 07/05/19 10:32:00 EST, Height Start Date: 07/05/19 Status: Ordered Problem List Condition Effective Dates Status Health Status Informant Abnormal liver function(Confirmed)1, Active 2, 3 Anxiety(Confirmed) Active Essential Hypertension(Confirmed)4, 5, Active 6 H/O herpes zoster(Confirmed)7 12/23/07 Active Hyperlipidemia(Confirmed) Active Impaired fasting glucose(Confirmed)8 Active Major depression(Confirmed) Active 1normal aat ceruloplasmin,neg hep c.Bsag pos HEP A nd B AB2neg hemochromatosis3 normal equa9cklcw catecholamines appear mcttsn6doengtws renal artery rzosvw3q/o secondary lvhtr3vdzgz T11 hreazzosxnim3obbpzts pre diabetic increased risk diabetes Social History Social History Type Response Smoking Status Never smoker entered on: 10/10/13 Sex
--- OUTSIDE RECORDS SUMMARY | 2022-06-28 15:51 | XMS_ITS | Continuity of Care Document ---
:1985 Author Organization [facility] Address [address] [place] [phone]- Care Team Providers Name Role Phone Cristóbal Abraham MD Primary Care Physician Encounter [facility] [place] Date(s): 07/05/19 - 07/12/19 [facility] [address] [place] [address]- [facility] Encounter Diagnosis Alcoholism (Discharge Diagnosis) - 07/05/19 Essential Hypertension (Discharge Diagnosis) - 07/05/19 Abnormal liver function (Discharge Diagnosis) - 07/05/19 Attending Physician: Cristóbal Abraham MD Allergies, Adverse Reactions, Alerts Substance Reaction Severity Status NKA Active Immunizations Given and Recorded Vaccine Date Status Refusal Reason influenza virus vaccine, inactivated 04/20/19 Given influenza virus vaccine, inactivated1 03/10/17 Given Hepatitis A Adult Vaccine2 10/10/13 Given tetanus/diphtheria/pertussis, acel(Tdap) 09/13/12 Given FluLaval (oldterm) 04/16/10 Given tetanus-diphtheria toxoids (Td)3 04/29/04 Given 1Result Comment: [03/10/2017] [facility] [phone] Comment: [10/10/2013] #13 Admin Note: historical data Medications amLODIPine 5 mg oral tablet 5 mg, 1, tablet, By Mouth, 2 times a day, # 60 tablet, Refills 11, Tot. Refills 11, Maintenance, 06/11/18 11:05:29 EST, Route to Pharmacy Electronically, [id number], [facility], new dose Start Date: 06/11/18 Status: OrderedcloNIDine 0.1 mg oral tablet 0.1 mg, 1, tablet, By Mouth, 2 times a day, # 60 tablet, Refills 5, Tot. Refills 5, Maintenance, 05/24/19 10:18:00 EST, Route to Pharmacy Electronically, [facility], 173, cm, 05/09/19 15:22:00 EST, Height Start Date: 05/24/19 Status: Orderedfolic acid 1 mg oral tablet 1 mg, 1, tablet, By Mouth, Daily, # 90 tablet, Refills 0, Maintenance, 07/05/19 10:23:00 EST Start Date: 07/05/19 Status: Orderedthiamine 100 mg oral tablet 100 mg, 1, tablet, By Mouth, Daily, # 90 tablet, Refills 6, Tot. Refills 6, Maintenance, 07/05/19 10:35:00 EST, Route to Pharmacy Electronically, [facility], 173, cm, 07/05/19 10:32:00 EST, Height Start Date: 07/05/19 Status: Ordered Problem List Condition Effective Dates Status Health Status Informant Abnormal liver function(Confirmed)1, Active 2, 3 Anxiety(Confirmed) Active Essential Hypertension(Confirmed)4, 5, Active 6 H/O herpes zoster(Confirmed)7 12/23/07 Active Hyperlipidemia(Confirmed) Active Impaired fasting glucose(Confirmed)8 Active 1normal aat ceruloplasmin,neg hep c.Bsag pos HEP A nd B AB2neg hemochromatosis3 normal xnpj7xquxo catecholamines appear tyqljz4huyrxvgy renal artery idylgd1j/o secondary kalth0shqvc T11 twbrpokcyvyk4vcfobyb pre diabetic increased risk diabetes Diagnosis Diagnosis Type Effective Dates Health Clinical Infor mant Status Service Alcoholism Discharge 07/05/19 Diagnosis Essential Discharge 07/05/19 Hypertension Diagnosis Abnormal liver Discharge 07/05/19 function Diagnosis Procedures Procedure Date Related Diagnosis Body Site Status EKG sinus 07/02/19 Completed EKG1 06/30/19 Completed Reference laboratory2 06/30/19 Comple adonay 1Describes sinus tachycardia normal P normal GET normal QRS normal axis no ST-T changes normal QTC noST elevation no tracing fwyuohpjx1tnswzuyhng posethanol, cocaine,opiates ,pcpn cannaboid; 138/3.9/96/23 rbs 110 bun 13, 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 0.789 tp 8.8 alb 5.6 ast51 alt 96 alk phos wnl bili wbc 12.3 hgb 17.8 plt 300k ua 1 plus prt neg other benzodiazeoam pos neg amphertamine, p Vital Signs Most recent to oldest [Reference 1 2 3 Range]: Height 173.00 cm 173.00 cm 173.00 cm (07/05/19 10:32 AM) (07/05/19 10:24 AM) (07/05/19 9:59 AM) Weight 82.5 kg (07/05/19 9:59 AM) Oxygen Saturation [94-100 %] 99 % (07/05/19 9:59 AM) Pulse Rate [55-90 bpm] 100 bpm *H* (07/05/19 9:59 AM) Body Mass Index [18.5-24.99] 27.57 *H* (07/05/19 9:59 AM) Blood Pressure [90-138/55-84 mm 138/88 mm Hg 150/80 mm Hg 154/92 mm Hg Hg] (07/05/19 10:32 AM) *H* *H* (07/05/19 10:24 AM) (07/05/19 9:59 A M) Respiratory Rate [16-30 br/min] 16 br/min (07/05/19 9:59 AM) Temperature [96.8-100.4 DegF] 80 DegF 98.3 DegF *L* (07/05/19 9:59 AM) (07/05/19 10:24 AM) Blood pressure sites Arm, left Arm, left Arm, left (07/05/19 10:32 AM) (07/05/19 10:24 AM) (07/05/19 9:59 AM) Temperature Route Oral (07/05/19 9:59 AM) Social History Social History Type Response Smoking Status Never smoker entered on: 10/10/13 Sex
--- OUTSIDE RECORDS SUMMARY | 2022-06-28 15:51 | XMS_ITS | Continuity of Care Document ---
:1985 Author Organization [facility] Address [address] [place] [phone]- Care Team Providers Name Role Phone Cristóbal Abraham MD Primary Care Physician [place] [facility] [place] - 09/27/21 [facility] [address] [place] [address]- Attending Physician: Cristóbal Abraham MD Allergies, Adverse [...] tetanus-diphtheria toxoids (Td)6 04/29/04 Given 1Result Comment: [id number] Comment: [facility]# [address] [phone] Comment: [03/10/2017] [facility] [phone] Comment: [facility]: [phone] Comment: [10/10/2013] #16Admin Note: historical data Medications [...] tablet, Refills 5, Route to Pharmacy Electronically, [facility], 174, cm, 05/27/21 15:55:00 EST, Height, [...] II opioid drug. Start Date: 09/17/21 Status: Orderedthiamine 100 mg oral tablet 100 mg, 1, tablet, By Mouth, Daily, for 30 days, # 30 tablet, Refills 0, Tot. Refills 0, Acute 10/17/21 9:37:00 EDT, 09/17/21 9:37:00 EDT, Route to Pharmacy Electronically, [facility], Partial fill upon patient request if the prescription is for... Start Date: 09/17/21 Stop Date: 10/17/21 Status: OrderedtraZODone 50 mg oral tablet 1, tablet, By Mouth, Daily at bedtime, PRN, # 30 tablet, Refills 5, Tot. Refills 5, NEEDED FOR INSOMNIA, 09/17/21 9:37:00 EDT, Route to Pharmacy Electronically, [facility], 172, cm, 09/17/21 8:49:00 EDT, Height, 75, kg, 09/12/21 17:05:00 EDT,... Start Date: 09/17/21 Status: Ordered Problem List Condition Effective Dates Status Health Status Informant Essential Hypertension(Confirmed)1, 2, Active 3 H/O herpes zoster(Confirmed)4 12/23/07 Active Hyperlipidemia(Confirmed) Active Impaired fasting glucose(Confirmed)5 Active Major depression in full Active remission(Confirmed) Fatty liver 2020(Confirmed) Active 1urine catecholamines appear oukwsx7hrkghigk renal artery itztzh7h/o secondary kunlt3mwvzn T11 qxfoofmicyzk7rakhtto pre diabetic increased risk diabetes Social History Social History Type Response Smoking Status Never (less than 100 in life time) entered on: 07/17/21 Sex
--- OUTSIDE RECORDS SUMMARY | 2022-06-28 15:51 | XMS_ITS | Continuity of Care Document ---
:1985 Author Organization [facility] Address [address] [place] [address]- Care Team Providers Name Role Phone Cristóbal Abraham MD Primary Care Physician Encounter [facility] [place] Date(s): 09/26/21 - 10/03/21 [facility] [address] [place] [address]- Encounter Diagnosis Alcoholism (Discharge Diagnosis) - 09/19/21 Essential Hypertension (Discharge Diagnosis) - 09/19/21 Major depression in full remission (Discharge Diagnosis) - 09/26/21 Attending Physician: Cristóbal Abraham MD Allergies, Adverse [...] tetanus-diphtheria toxoids (Td)6 04/29/04 Given 1Result Comment: [id number] Comment: [facility]# [address] [phone] Comment: [03/10/2017] [facility] [phone] Comment: [facility]: [phone] Comment: [10/10/2013] #16Admin Note: historical data Medications [...] tablet, Refills 5, Route to Pharmacy Electronically, [facility], 174, cm, 05/27/21 15:55:00 EST, Height, 82, kg, 05/04/21 12:35:00 EST, Dry Weight Start Date: 06/14/21 Status: OrderedFLUoxetine 20 mg oral capsule 40 mg, 2, capsule, By Mouth, Daily, # 60 capsule, Refills 0, Tot. Refills 0, Maintenance, 09/17/21 9:36:00 EDT, Route to Pharmacy Electronically, [facility], Partial fill upon patient request if [...] EDT, Route to Pharmacy Electronically, [facility], 172, cm, 09/17/21 8:49:00 EDT, Height, 75, kg, 09/12/21 17:05:00 EDT,... Start Date: 09/17/21 Status: Ordered Problem List Condition Effective Dates Status Health Status Informant Essential Hypertension(Confirmed)1, 2, Active 3 H/O herpes zoster(Confirmed)4 12/23/07 Active Hyperlipidemia(Confirmed) Active Impaired fasting glucose(Confirmed)5 Active Major depression in full Active remission(Confirmed) Fatty liver 2020(Confirmed) Active 1urine catecholamines appear tmnfma5jrdzaipi renal artery fkffls5l/o secondary vruxp4pghhx T11 sypikjdcnuxv3vhuufpg pre diabetic increased risk diabetes Diagnosis Diagnosis Type Effective Dates Health Clinical Infor mant Status Service Alcoholism Discharge 09/19/21 Diagnosis Essential Discharge 09/19/21 Hypertension Diagnosis Major depression in Discharge 09/26/21 full remission Diagnosis Vital Signs Most recent to oldest [Reference Range]: 1 2 Height 172 cm 172 cm (09/26/21 1:05 PM) (09/26/21 12:52 PM) Weight 81.0 kg (09/26/21 12:52 PM) Oxygen Saturation [94-100 %] 100 % (09/26/21 12:52 PM) Pulse Rate [55-90 bpm] 56 bpm (09/26/21 12:52 PM) Body Mass Index [18.5-24.99] 27.38 *H* (09/26/21 12:52 PM) Blood Pressure [90-138/55-84 mm Hg] 120/62 mm Hg 144/ 89 mm Hg (09/26/21 1:05 PM) *H* (09/26/21 12:52 PM) Respiratory Rate [16-30 br/min] 16 br/min (09/26/21 12:52 PM) Temperature [96.8-100.4 DegF] 98.1 DegF (09/26/21 12:52 PM) Mode of Delivery (Oxygen) Room air (09/26/21 12:52 PM) Blood pressure sites Arm, left Arm, left (09/26/21 1:05 PM) (09/26/21 12:52 PM) Temperature Route Oral (09/26/21 12:52 PM) Weight Obtained Via Standing scale (09/26/21 12:52 PM) Social History Social History Type Response Smoking Status Never (less than 100 in life time) entered on: 07/17/21 Sex
--- OUTSIDE RECORDS SUMMARY | 2022-06-28 15:51 | XMS_ITS | Continuity of Care Document ---
:1985 Author Organization [facility] Address [address] [place] [address]- Care Team Providers Name Role Phone Cristóbal Abraham MD Primary Care Physician Encounter [facility] Date(s): 12/31/21 - 04/30/22 [facility] [address] [place] [address]- Attending Physician: Cristóbal Abraham MD Allergies, Adverse [...] tetanus-diphtheria toxoids (Td)6 04/29/04 Given 1Result Comment: [id number] Comment: [facility]# [address] [phone] Comment: [03/10/2017] [facility] [phone] Comment: [facility]: [phone] Comment: [10/10/2013] #16Admin Note: historical data Medications [...] 09/17/21 9:37:00 EDT, Route to Pharmacy Electronically, [facility], 172, cm, 09/17/21 8:49:00 EDT, Height, [...] liver 2020 Confirmed Active 1urine catecholamines appear occovs6tynyyllg renal artery cqpthz5s/o secondary srhrh5ugsyr T11 zadvpbtqpetu4vwfflyt pre diabetic increased risk diabetes Social History Social History Type Response Smoking Status Never (less than 100 in life time) entered on: 07/17/21 Sex Patient Care team information Care Team PersonnelName: Liliana FAMILY ASSISTANT, Neida L Position: [facility] PCO Associate Professional Member Role: Lifetime Consulting Provider Address: Address: [address] [place] [address]- Name: Jarad SHAFFER, Cristóbal Sheth Position: [facility] Primary Care Physician Member Role: PCP Address: Address: [address] [place] [address]- Name: Rubina Brink RN Position: [facility] RN Member Role: Primary Care Nurse Name: Neli Alcala RN Position: [facility] RN Member Role: Primary Care Nurse Care Team Related PersonsName: DOMENICA COLÓN Address: home [address] [place] [address] Name: KENNETH BALDWIN Address: [address] [place] [address]
--- OUTSIDE RECORDS SUMMARY | 2022-06-28 15:51 | XMS_ITS | Continuity of Care Document ---
:1985 Author Organization [facility] Address [address] [place] [address]- Care Team Providers Name Role Phone Cristóbal Abraham MD Primary Care Physician Encounter [facility] [place] Date(s): 05/27/21 - 06/03/21 [facility] [address] [place] [phone]- Encounter Diagnosis Alcoholism (Discharge Diagnosis) - 05/27/21 Major depression in full remission (Discharge Diagnosis) - 05/27/21 Fatty liver us 2020 (Discharge Diagnosis) - 05/27/21 Attending Physician: Cristóbal Abraham MD Allergies, Adverse [...] tetanus-diphtheria toxoids (Td)5 04/29/04 Given 1Result Comment: [facility]# [address] [phone] Comment: [03/10/2017] [facility] [phone] Comment: [facility]: [phone] Comment: [10/10/2013] #15 Admin Note: historical data Medications amLODIPine 5 mg oral tablet 5 mg, 1, tablet, By Mouth, 2 times a day, # 60 tablet, Refills 5, Tot. Refills 5, Maintenance, 07/20/20 16:18:00 EST, Route to Pharmacy Electronically, [facility], new dose, 173, cm, 07/09/20 8:33:00 EST, Height Start Date: 07/20/20 Status: OrderedcloNIDine 0.2 mg oral tablet 1, tablet, By Mouth, Daily at bedtime, # 30 tablet, Refills 0, Route to Pharmacy Electronically, [facility], 174, cm, 05/07/21 8:28:00 EST, Height, 82, kg, 05/04/21 12:35:00 EST, Dry Weight Start Date: 05/10/21 Status: OrderedFLUoxetine 20 mg oral tablet 1 tablet = 20 mg, By Mouth, Daily, # 30 tablet, 5 Refills, Maintenance, 11/17/20 4:20:00 EDT, Tablet, [facility], 173, cm, 07/09/20 8:33:00 EST, Height Start Date: 11/17/20 Status: Orderedfolic acid 1 mg oral tablet 1 mg, 1, tablet, By Mouth, Daily, # 30 tablet, Refills 0, Tot. Refills 0, Maintenance, 05/06/21 14:35:00 EST, Route to Pharmacy Electronically, [facility], Partial fill upon patient request if theprescription is for a schedule II opioid drug., 1... Start Date: 05/06/21 Status: Orderedmultivitamin Multiple Vitamins oral tablet 1 [...] 05/06/21 13:58:00 E... Start Date: 05/06/21 Status: Orderedthiamine 100 mg oral tablet 100 mg, 1, tablet, By Mouth, Daily, for 30 days, # 30 tablet, Refills 0, Tot. Refills 0, Acute 06/05/21 14:35:00 EST, 05/06/21 14:35:00 EST, Route to Pharmacy Electronically, [facility], Partial fill upon patient request if the prescription is fo... Start Date: 05/06/21 Stop Date: 06/05/21 Status: OrderedtraZODone 50 mg oral tablet 1, tablet, By Mouth, Daily at bedtime, PRN, # 30 tablet, Refills 0, NEEDED FOR INSOMNIA, Route toPharmacy Electronically, [facility], 174, cm, 05/07/21 8:28:00 EST, Height, [...] liver us 2020(Confirmed) Active 1urine catecholamines appear foxoko8qnreekge renal artery clxpvh1d/o secondary hksri5wankb T11 xxqbmhyfvbhs1sgvmsnv pre diabetic increased risk diabetes Diagnosis Diagnosis Type Effective Dates Health Clinical Infor mant Status Service Alcoholism Discharge 05/27/21 Diagnosis Major depression Discharge 05/27/21 in full remission Diagnosis Fatty liver us Discharge 05/27/212020 Diagnosis Procedures Procedure Date Related Diagnosis Body Site Status CT of abdomen and pelvis nad1 05/06/21 Completed Electrocardiogram sinus2 05/03/[address] findings of pancreatitis. Negative imaging does not exclude pancreatitis if there are appropriate clinical and laboratory findings supporting this diagnosis. Liver appears mildly low in attenuation suggesting possible hepatic steatosis.2 ECG 12-Lead Please click on pdf link to open report [id number] Ventricular Rate: 113 BPM Atrial Rate: 113 BPM P-R Interval: 162 ms QRS Duration: 84 ms Q-T Interval: 356 ms QTC Calculation(Bazett): 488 ms P [place]: 36 degrees R [place]: 20 degrees T [place]: 53 degrees Poor data quality, interpretation may be adversely affected Sinus tachycardia Nonspecific T wave abnormality Abnormal ECG When compared with ECG of 16-APR-2010 16:14, No significant change was found Confirmed by DAISY WISDOM MD ([id number]) on 05/05/2021 11:04:38 PM Vital Signs Most recent to oldest [Reference Range]: 1 Height 174 cm (05/27/21 3:55 PM) Social History Social History Type Response Smoking Status Never smoker entered on: 10/10/13 Sex
--- OUTSIDE RECORDS SUMMARY | 2022-06-28 15:51 | XMS_ITS | Continuity of Care Document ---
:1985 Author Organization [facility] Adult Address [address] [place] [address]- Care Team Providers Name Role Phone Jarad SHAFFER, Cristóbal Sheth Primary Care Physician Encounter [facility] Date(s): 12/07/19 - 01/06/20 [facility] Adult [address] [place] [address]- [facility] Allergies, Adverse Reactions, Alerts Substance Reaction Severity Status NKA Active Immunizations Given and Recorded Vaccine Date Status Refusal Reason influenza virus vaccine, inactivated 04/20/19 Given influenza virus vaccine, inactivated1 03/10/17 Given Hepatitis A Adult Vaccine2 10/10/13 Given tetanus/diphtheria/pertussis, acel(Tdap) 09/13/12 Given FluLaval (oldterm) 04/16/10 Given tetanus-diphtheria toxoids (Td)3 04/29/04 Given 1Result Comment: [03/10/2017] [facility] [phone] Comment: [10/10/2013] #13 Admin Note: historical data [...] 12/08/19 10:07:00 EDT, Route to Pharmacy Electronically, [facility], 173, , 11/10/19 7:57:00 EDT,Height Start Date: 12/08/19 Status: OrderedFLUoxetine 20 mg oral tablet 1 tablet = 20 mg, By Mouth, Daily, # 30 tablet, 5 Refills, Maintenance, 12/08/19 10:07:00 EDT, Tablet, [facility], 173, , 11/10/19 7:57:00 EDT, Height Start Date: 12/08/19 Status: Orderedfolic acid 1 mg oral tablet 1 mg, 1, tablet, By Mouth, Daily, # 30 tablet, Refills 0, Tot. Refills 0, Maintenance, 12/08/19 10:08:00 EDT, Route to Pharmacy Electronically, [facility], 173, , 11/10/19 7:57:00 EDT, Height Start Date: 12/08/19 Status: Orderedgabapentin 300 mg oral capsule 300 mg, 1, capsule, By Mouth, 3 times a day, # 270 capsule, Refills 0, Tot. Refills 0, Maintenance, 12/08/19 10:08:00 EDT, Route to Pharmacy Electronically, [facility], 173, , 11/10/19 7:57:00 EDT, Height Start Date: 12/08/19 Status: Orderedomeprazole 20 mg oral delayed release tablet 2 tablet = 40 mg, By Mouth, 2 times a day, # 120 tablet, 6 Refills, Maintenance, 12/08/19 17:03:00 EDT, [facility], 173, , 11/10/19 7:57:00 EDT, Height Start Date: 12/08/19 Status: Orderedthiamine 100 mg oral tablet 100 mg, 1, tablet, By Mouth, Daily, # 90 tablet, Refills 6, Tot. Refills 6, Maintenance, 07/05/19 10:35:00 EST, Route to Pharmacy Electronically, [facility], 173, , 07/05/19 10:32:00 EST, Height Start [...] HEP A nd B AB2neg hemochromatosis3 normal fzhh9vhafr catecholamines appear tmfhxr2kidxpjup renal artery vfndzw4q/o secondary svxgm5gjjti T11 xrnwijwvqvrn7wrevymx pre diabetic increased risk diabetes Social History Social History Type Response Smoking Status Never smoker entered on: 10/10/13 Sex
--- OUTSIDE RECORDS SUMMARY | 2022-06-28 15:51 | XMS_ITS | Continuity of Care Document ---
:1985 Author Organization [facility] Adult Address [address] [place] [address]- Care Team Providers Name Role Phone Jarad SHAFFER, Cristóbal Sheth Primary Care Physician Encounter [facility] [place] [place] Date(s): 05/09/19 - 05/19/19 [facility] Adult [address] [place] [address]- [facility] Attending Physician: Admtr, Ar8 Allergies, Adverse Reactions, Alerts Substance Reaction Severity Status NKA Active Immunizations Given and Recorded Vaccine Date Status Refusal Reason influenza virus vaccine, inactivated 04/20/19 Given influenza virus vaccine, inactivated1 03/10/17 Given Hepatitis A Adult Vaccine2 10/10/13 Given tetanus/diphtheria/pertussis, acel(Tdap) 09/13/12 Given FluLaval (oldterm) 04/16/10 Given tetanus-diphtheria toxoids (Td)3 04/29/04 Given 1Result Comment: [03/10/2017] [facility] [id number] Comment: [10/10/2013] #13 Admin Note: historical data Medications amLODIPine 5 mg oral tablet 5 mg, 1, tablet, By Mouth, 2 times a day, # 60 tablet, Refills 11, Tot. Refills 11, Maintenance, 06/11/18 11:05:29 EST, Route to Pharmacy Electronically, [id number], [facility], new dose Start Date: 06/11/18 Status: OrderedcloNIDine 0.1 mg oral tablet 0.1 mg, 1, tablet, By Mouth, 2 times a day, # 30 tablet, Refills 0, Tot. Refills 0, Maintenance, 05/05/19 7:41:58 EST, Route to Pharmacy Electronically, [id number], [facility], 173, cm, 05/05/19 7:27:36 EST, Height Start Date: 05/05/19 Status: Ordered Problem List Condition Effective Dates Status Health Status Informant Anxiety(Confirmed) Active Essential Hypertension(Confirmed)1, 2, Active 3 H/O herpes zoster(Confirmed)4 12/23/07 Active Hyperlipidemia(Confirmed) Active Impaired fasting glucose(Confirmed)5 Active 1urine catecholamines appear egilru2pgwkuncu renal artery tupske8f/o secondary budpi5gagnp T11 ggprpiwtmljt8jxcbafy pre diabetic increased risk diabetes Procedures Procedure Date Related Diagnosis Body Site Status Ambulatory blood pressure monitoring, 06/11/10 Completed utilizing a system such as magnetic tape and/or computer disk, for 24 hours or longer; including recording, scanning analysis, interpretation and report1 05/03 time systolic BP > 140 35% > diastolic 90 Social History Social History Type Response Smoking Status Never smoker entered on: 10/10/13 Sex
--- OUTSIDE RECORDS SUMMARY | 2022-06-28 15:51 | XMS_ITS | Continuity of Care Document ---
:1985 Author Organization [facility] Adult Address [address] [place] [address]- Care Team Providers Name Role Phone Jarad SHAFFER, Cristóbal Sheth Primary Care Physician Encounter [facility] Date(s): 08/03/19 - 08/13/19 [facility] Adult [address] [place] [address]- [facility] Attending Physician: Admtr, Ar8 Allergies, Adverse Reactions, Alerts Substance Reaction Severity Status NKA Active Immunizations Given and Recorded Vaccine Date Status Refusal Reason influenza virus vaccine, inactivated 04/20/19 Given influenza virus vaccine, inactivated1 03/10/17 Given Hepatitis A Adult Vaccine2 10/10/13 Given tetanus/diphtheria/pertussis, acel(Tdap) 09/13/12 Given FluLaval (oldterm) 04/16/10 Given tetanus-diphtheria toxoids (Td)3 04/29/04 Given 1Result Comment: [03/10/2017] [facility] [id number] Comment: [10/10/2013] #13 Admin Note: historical data Medications amLODIPine 5 mg oral tablet 5 mg, 1, tablet, By Mouth, 2 times a day, # 60 tablet, Refills 11, Tot. Refills 11, Maintenance, 06/11/18 11:05:29 EST, Route to Pharmacy Electronically, [id number], [facility], new dose Start Date: 06/11/18 Status: [...] 07/05/19 10:35:00 EST, Route to Pharmacy Electronically, [facility], 173, cm, 07/05/19 10:32:00 EST, Height Start Date: 07/05/19 Status: Ordered Problem List Condition Effective Dates Status Health Status Informant Abnormal liver function(Confirmed)1, Active 2, 3 Anxiety(Confirmed) Active Essential Hypertension(Confirmed)4, 5, Active 6 H/O herpes zoster(Confirmed)7 12/23/07 Active Hyperlipidemia(Confirmed) Active Impaired fasting glucose(Confirmed)8 Active Major depression(Confirmed) Active 1normal aat ceruloplasmin,neg hep c.Bsag pos HEP A nd B AB2neg hemochromatosis3 normal odln3aunnw catecholamines appear mjbfip1rzwavlol renal artery ulsgpd0h/o secondary ergue1ntsqn T11 jecrzcpaavcl9gfiiyha pre diabetic increased risk diabetes Procedures Procedure Date Related Diagnosis Body Site Status Ambulatory blood pressure monitoring, 06/11/10 Completed utilizing a system such as magnetic tape and/or computer disk, for 24 hours or longer; including recording, scanning analysis, interpretation and report1 12/3 time systolic BP > 140 35% > diastolic 90 Social History Social History Type Response Smoking Status Never smoker entered on: 10/10/13 Sex
--- OUTSIDE RECORDS SUMMARY | 2022-06-28 15:51 | XMS_ITS | Continuity of Care Document ---
:1985 Author Organization [facility] Adult Address [address] [place] [address]- Care Team Providers Name Role Phone Jarad SHAFFER, Cristóbal Sheth Primary Care Physician Encounter [facility] Date(s): 01/13/21 - 02/12/21 [facility] Adult [address] [place] [address]- Allergies, Adverse Reactions, Alerts Substance Reaction Severity [...] tetanus-diphtheria toxoids (Td)4 04/29/04 Given 1Result Comment: [facility]: [id number] Comment: [03/10/2017] [facility] [id number] 3Result Comment: [10/10/2013] #14Admin Note: historical data [...] 07/20/20 16:18:00 EST, Route to Pharmacy Electronically, [facility], [facility], 173, cm, 07/09/20 8:33:00 EST, Height [...] HEP A nd B AB2neg hemochromatosis3 normal gexm6xczoi catecholamines appear mezbrg6wlyswfab renal artery yxeaxm5b/o secondary nncxz3cfxyx T11 gipwhpkaginn8xbzkwmo pre diabetic increased risk diabetes Social History Social History Type Response Smoking Status Never smoker entered on: 10/10/13 Sex
--- OUTSIDE RECORDS SUMMARY | 2022-06-28 15:51 | XMS_ITS | Continuity of Care Document ---
:1985 Author Organization [facility] Address [address] [place] [address]- Care Team Providers Name Role Phone Jarad SHAFFER, Cristóbal Sheth Primary Care Physician Encounter [facility] Date(s): 05/03/21 - 05/07/[address] [address]- Encounter Diagnosis Alcoholic ketoacidosis (Final) - 05/03/21 Alcohol withdrawal (Final) - 05/03/21 Discharge Disposition: A-D/C Home Attending Physician: Dottie Gonsales MD Admitting Physician: Laura Crabtree DO Referring Physician: Oj Bradley MD Allergies, Adverse Reactions, Alerts Substance Reaction [...] tetanus-diphtheria toxoids (Td)5 04/29/04 Given 1Result Comment: [facility] [address] [phone] Comment: [03/10/2017] [facility] [id number] Comment: [facility]: [id number] Comment: [10/10/2013] #15 Admin Note: historical data Medications amLODIPine 5 mg oral tablet 5 mg, Tablet, By Mouth, 05/07/21 9:00:00 EST Start Date: 05/07/21 Stop Date: 05/07/21 Status: CompletedamLODIPine 5 mg oral tablet 5 mg, 1, tablet, By Mouth, 2 times a day, # 60 tablet, Refills 5, Tot. Refills 5, Maintenance, 07/20/20 16:18:00 EST, Route to Pharmacy Electronically, [facility], new dose, 173, cm, 07/09/20 8:33:00 EST, Height Start Date: 07/20/20 Status: OrderedbuPROPion 150 mg/24 hours (XL) oral tablet, extended release 1 tablet = 150 mg, By Mouth, Every 24 hours, 0 Refills, Maintenance, 04/17/21 9:41:00 EST, Partial fill upon patient request if the prescription is for a schedule II opioid drug. Start Date: 04/17/21 Status: OrderedcloNIDine 0.2 mg oral tablet 0.2 [...] 5 Refills, Maintenance, 11/17/20 4:20:00 EDT, Tablet, [facility], 173, cm, 07/09/20 8:33:00 EST, Height Start Date: 11/17/20 Status: Orderedfolic acid 1 mg oral tablet 1 mg, 1, tablet, By Mouth, Daily, # 30 tablet, Refills 0, Tot. Refills 0, Maintenance, 05/06/21 14:35:00 EST, Route to Pharmacy Electronically, [facility], Partial fill upon patient request if [...] 06/05/21 Status: OrderedtraZODone 50 mg oral tablet 50 [...] liver us 2020(Confirmed) Active 1urine catecholamines appear ylwazm1vdsudhja renal artery lvatae6m/o secondary mazns3anrwg T11 zxsoemjxduzs5qdjdmag pre diabetic increased risk diabetes Results Radiology Reports Exam Date Time Procedure Performing Provider Status 05/05/21 10:35 AM Abdomen AP Chica Alvarado; Auth (Angela ruggiero) Notes:(Abdomen AP) Reason For Exam: DistentionRESULT: XR Abdomen AP XR Abdomen AP 1 view, supine INDICATION/CLINICAL QUESTION: Reason: Distention; Clinical Question(s): Fecalith; Special Instructions: Specifically looking for any calcified pancreas indicative of chronic pancreatitis; Order Comment: pct will bring patient when done with other patients 05 05 2021 10:21:56 EST will call COMPARISON: No comparison radiograph. Correlation made with remote CT abdomen pelvis 05/16/2010. FINDINGS: Normal bowel gas pattern. No evidence of obstruction. No evidence of pneumoperitoneum. No organomegaly, masses or abnormal calcifications. No acute bone findings. IMPRESSION: No abnormal calcifications. Unremarkable exam. WSN: [id number] Ordering Physician: Dottie Gonsales Dictated By: Ed Winter MD Dictated Date/Time: 05/05/21 4:45 pm Reviewed By: Ed Winter MD Signed By: Ed Winter MD Signed Date/Time: 05/05/21 4:45 pm Transcribed By: REINIER Transcribed Date/Time: 05/05/21 4:43 pm Vital Signs Most recent to oldest 1 2 3 [Reference Range]: Height 174 cm 174 cm 174 cm (05/07/21 8:28 AM) (05/07/21 5:05 AM) (05/06/21 9:1 9 PM) Weight 83.6 kg 82 kg 82 kg (05/04/21 9:59 AM) (05/04/21 6:12 AM) (05/04/21 3:2 0 AM) Oxygen Saturation [94-100 %] 98 % 97 % 95 % (05/07/21 5:05 AM) (05/06/21 9:19 PM) (05/06/21 1:5 8 PM) Pulse Rate [55-90 bpm] 75 bpm 60 bpm 52 bpm (05/07/21 8:28 AM) (05/07/21 5:23 AM) *L* (05/07/21 5:05 AM ) Body Mass Index [18.5-24.99] 27.61 27.08 27. 08 *H* *H* *H* (05/04/21 9:59 AM) (05/04/21 6:12 AM) (05/04/21 3:2 0 AM) Blood Pressure [90-138/55-84 mm 125/91 mm Hg 125/91 mm Hg 120/82 mm Hg Hg] (05/07/21 8:28 AM) (05/07/21 8:22 AM) (05/07/21 5:2 3 AM) Respiratory Rate [16-30 br/min] 181 br/min 18 br/min 16 br/min *H* (05/07/21 5:23 AM) (05/07/21 5:05 AM) (05/07/21 8:28 AM) Temperature [96.8-100.4 DegF] 98 DegF 98.0 DegF 97 .5 DegF (05/07/21 8:28 AM) (05/07/21 5:23 AM) (05/07/21 5:0 5 AM) Mode of Delivery (Oxygen) Room air Room air Room a ir (05/07/21 5:05 AM) (05/06/21 9:19 PM) (05/06/21 1:5 8 PM) Blood pressure sites Arm, left Arm, left Arm, left (05/07/21 8:28 AM) (05/07/21 5:05 AM) (05/06/21 9:1 9 PM) Temperature Route Oral Oral Oral (05/07/21 8:28 AM) (05/07/21 5:23 AM) (05/07/21 5:0 5 AM) Dry Weight 82 kg 82 kg 82 kg (05/04/21 9:59 AM) (05/04/21 6:12 AM) (05/04/21 3:2 0 AM) Weight Obtained Via Standing scale (05/04/21 9:59 AM) Dry Weight Obtained Via Standing scale (05/03/21 9:47 AM) Social History Social History Type Response Smoking Status Never smoker entered on: 10/10/13 Sex
--- OUTSIDE RECORDS SUMMARY | 2022-06-28 15:51 | XMS_ITS | Continuity of Care Document ---
:1985 Author Organization [facility] Adult Address [address] [place] [address]- Care Team Providers Name Role Phone Jarad SHAFFER, Cristóbal Sheth Primary Care Physician Encounter [facility] Date(s): 09/13/21 - 10/13/21 [facility] [address] [place] [address]- Allergies, Adverse Reactions, Alerts No Known Allergies [...] tetanus-diphtheria toxoids (Td)6 04/29/04 Given 1Result Comment: [id number] Comment: [facility]# [address] [phone] Comment: [03/10/2017] [facility] [phone] Comment: [facility]: [phone] Comment: [10/10/2013] #16Admin Note: historical data Medications [...] tablet, Refills 5, Route to Pharmacy Electronically, [facility], 174, cm, 05/27/21 15:55:00 EST, Height, [...] Fatty liver 2020(Confirmed) Active 1urine catecholamines appear bpgkrk8xuaxyzyo renal artery fsrctd9i/o secondary ugmgh8gdpmo T11 ejzdgpnziyup0vcqvfjq pre diabetic increased risk diabetes Social History Social History Type Response Smoking Status Never (less than 100 in life time) entered on: 07/17/21 Sex
--- OUTSIDE RECORDS SUMMARY | 2022-06-28 15:51 | XMS_ITS | Continuity of Care Document ---
:1985 Author Organization [facility] Adult Address [address] [place] [address]- Care Team Providers Name Role Phone Jarad SHAFFER, Cristóbal Sheth Primary Care Physician Encounter [facility] Date(s): 04/20/19 - 06/08/19 [facility] Adult [address] [place] [address] [facility] Attending Physician: Liliana CARE TRANSITION MGR, Neida Ugalde Allergies, Adverse Reactions, Alerts Substance Reaction Severity Status NKA Active Immunizations Given and Recorded Vaccine Date Status Refusal Reason influenza virus vaccine, inactivated 04/20/19 Given influenza virus vaccine, inactivated1 03/10/17 Given Hepatitis A Adult Vaccine2 10/10/13 Given tetanus/diphtheria/pertussis, acel(Tdap) 09/13/12 Given FluLaval (oldterm) 04/16/10 Given tetanus-diphtheria toxoids (Td)3 04/29/04 Given 1Result Comment: [03/10/2017] [facility] [phone] Comment: [10/10/2013] #13 Admin Note: historical data Medications amLODIPine 5 mg oral tablet 5 mg, 1, tablet, By Mouth, 2 times a day, # 60 tablet, Refills 11, Tot. Refills 11, Maintenance, 06/11/18 11:05:29 EST, Route to Pharmacy Electronically, [id number], [facility], new dose Start Date: 06/11/18 Status: [...] Impaired fasting glucose(Confirmed)5 Active 1urine catecholamines appear ddrxym0bpgojbmj renal artery rwrcni7q/o secondary tftoi0xpymf T11 rzrheddlulgg2gackspc pre diabetic increased risk diabetes Social History Social History Type Response Smoking Status Never smoker entered on: 10/10/13 Sex
--- OUTSIDE RECORDS SUMMARY | 2022-06-28 15:51 | XMS_ITS | Continuity of Care Document ---
:1985 Author Organization [facility] Adult Address [address] [place] [address]- Care Team Providers Name Role Phone Cristóbal Abraham MD Primary Care Physician Encounter [facility] Date(s): 12/15/19 - 12/22/19 [facility] Adult [address] [place] [address] [facility] Encounter Diagnosis Alcohol abuse (Discharge Diagnosis) - 12/14/19 Hyperlipidemia (Discharge Diagnosis) - 12/14/19 Impaired fasting glucose (Discharge Diagnosis) - 12/14/19 Attending Physician: Cristóbal Abraham MD Allergies, Adverse Reactions, Alerts Substance Reaction Severity Status NKA Active Immunizations Given and Recorded Vaccine Date Status Refusal Reason influenza virus vaccine, inactivated 04/20/19 Given influenza virus vaccine, inactivated1 03/10/17 Given Hepatitis A Adult Vaccine2 10/10/13 Given tetanus/diphtheria/pertussis, acel(Tdap) 09/13/12 Given FluLaval (oldterm) 04/16/10 Given tetanus-diphtheria toxoids (Td)3 04/29/04 Given 1Result Comment: [03/10/2017] [facility] [phone] Comment: [10/10/2013] #13 Admin Note: historical data [...] 12/08/19 10:07:00 EDT, Route to Pharmacy Electronically, [facility], 173, , 11/10/19 7:57:00 EDT,Height Start Date: 12/08/19 Status: OrderedFLUoxetine 20 mg oral tablet 1 tablet = 20 mg, By Mouth, Daily, # 30 tablet, 5 Refills, Maintenance, 12/08/19 10:07:00 EDT, Tablet, [facility], 173, , 11/10/19 7:57:00 EDT, Height Start Date: 12/08/19 Status: Orderedfolic acid 1 mg oral tablet 1 mg, 1, tablet, By Mouth, Daily, # 30 tablet, Refills 0, Tot. Refills 0, Maintenance, 12/08/19 10:08:00 EDT, Route to Pharmacy Electronically, [facility], 173, , 11/10/19 7:57:00 EDT, Height Start Date: 12/08/19 Status: Orderedgabapentin 300 mg oral capsule 300 mg, 1, capsule, By Mouth, 3 times a day, # 270 capsule, Refills 0, Tot. Refills 0, Maintenance, 12/08/19 10:08:00 EDT, Route to Pharmacy Electronically, [facility], 173, , 11/10/19 7:57:00 EDT, Height Start Date: 12/08/19 Status: Orderedomeprazole 20 mg oral delayed release tablet 2 tablet = 40 mg, By Mouth, 2 times a day, # 120 tablet, 6 Refills, Maintenance, 12/08/19 17:03:00 EDT, [facility], 173, , 11/10/19 7:57:00 EDT, Height Start Date: 12/08/19 Status: Orderedthiamine 100 mg oral tablet 100 mg, 1, tablet, By Mouth, Daily, # 90 tablet, Refills 6, Tot. Refills 6, Maintenance, 07/05/19 10:35:00 EST, Route to Pharmacy Electronically, [facility], 173, , 07/05/19 10:32:00 EST, Height [...] HEP A nd B AB2neg hemochromatosis3 normal unmb5uiitd catecholamines appear zdbxxp8ykswqcea renal artery cjcwuj2h/o secondary mbtvl0qjxkr T11 vmavqxmzsibo6yvxfhus pre diabetic increased risk diabetes Diagnosis Diagnosis Type Effective Dates Health Clinical Infor mant Status Service Alcohol abuse Discharge 12/14/19 Diagnosis Hyperlipidemia Discharge 12/14/19 Diagnosis Impaired fasting Discharge 12/14/19 glucose Diagnosis Social History Social History Type Response Smoking Status Never smoker entered on: 10/10/13 Sex
--- OUTSIDE RECORDS SUMMARY | 2022-06-28 15:51 | XMS_ITS | Continuity of Care Document ---
:1985 Author Organization [facility] Adult Address [address] [place] [address]- Care Team Providers Name Role Phone Cristóbal Abraham MD Primary Care Physician Encounter [facility] Date(s): 09/09/19 - 09/16/19 [facility] Adult [address] [place] [address]- [facility] Encounter Diagnosis Alcoholism (Discharge Diagnosis) - 09/09/19 Essential Hypertension (Discharge Diagnosis) - 09/09/19 Major depression (Discharge Diagnosis) - 09/09/19 Hyperlipidemia (Discharge Diagnosis) - 09/09/19 Impaired fasting glucose (Discharge Diagnosis) - 09/09/19 Attending Physician: Cristóbal Abraham MD Allergies, Adverse Reactions, Alerts Substance Reaction Severity Status NKA Active Immunizations Given and Recorded Vaccine Date Status Refusal Reason influenza virus vaccine, inactivated 04/20/19 Given influenza virus vaccine, inactivated1 03/10/17 Given Hepatitis A Adult Vaccine2 10/10/13 Given tetanus/diphtheria/pertussis, acel(Tdap) 09/13/12 Given FluLaval (oldterm) 04/16/10 Given tetanus-diphtheria toxoids (Td)3 04/29/04 Given 1Result Comment: [03/10/2017] [facility] [id number] Comment: [10/10/2013] #13 Admin Note: historical data Medications amLODIPine 5 mg oral tablet 5 mg, 1, tablet, By Mouth, 2 times a day, # 60 tablet, Refills 11, Tot. Refills 11, Maintenance, 06/11/18 11:05:29 EST, Route to Pharmacy Electronically, [id number], [facility], new dose Start Date: 06/11/18 Status: OrderedcloNIDine 0.1 mg oral tablet 0.1 mg, 1, tablet, By Mouth, 2 times a day, # 60 tablet, Refills 5, Tot. Refills 5, Maintenance, 05/24/19 10:18:00 EST, Route to Pharmacy Electronically, [facility], 173, cm, 05/09/19 15:22:00 EST, Height Start Date: 05/24/19 Status: OrderedFLUoxetine 20 mg oral tablet 1 tablet = 20 mg, By Mouth, Daily, # 30 tablet, 10 Refills, Maintenance, 07/29/19 7:36:00 EST, Tablet, [facility], 173, cm, 07/29/19 7:27:00 EST, Height [...] 07/05/19 10:35:00 EST, Route to Pharmacy Electronically, [facility], 173, cm, 07/05/19 10:32:00 EST, Height [...] HEP A nd B AB2neg hemochromatosis3 normal dagf6mphko catecholamines appear akvbno6gmxjeivx renal artery whcpea1r/o secondary jrmou8ixvzi T11 gvnjupoivgbm7zoquvad pre diabetic increased risk diabetes Diagnosis Diagnosis Type Effective Dates Health Clinical Infor mant Status Service Alcoholism Discharge 09/09/19 Diagnosis Essential Discharge 09/09/19 Hypertension Diagnosis Major depression Discharge 09/09/19 Diagnosis Hyperlipidemia Discharge 09/09/19 Diagnosis Impaired fasting Discharge 09/09/19 glucose Diagnosis Vital Signs Most recent to oldest [Reference Range]: 1 2 Height 173.00 cm 173.00 cm (09/09/19 7:35 AM) (09/09/19 7:29 AM) Blood Pressure [90-138/55-84 mm Hg] 127/66 mm Hg (09/09/19 7:35 AM) Social History Social History Type Response Smoking Status Never smoker entered on: 10/10/13 Sex
--- OUTSIDE RECORDS SUMMARY | 2022-06-28 15:51 | XMS_ITS | Continuity of Care Document ---
:1985 Author Organization [facility] Address [address] [place] [address]- Care Team Providers Name Role Phone Jarad SHAFFER, Cristóbal Sheth Primary Care Physician Encounter [facility] Date(s): 08/26/21 - 08/29/[address] [id number]- Discharge Disposition: A-D/C Home Attending Physician: Emmanuel Crandall MD Admitting Physician: Sunitha Cary MD Referring Physician: Eleazar Sandra MD Allergies, [...] tetanus-diphtheria toxoids (Td)6 04/29/04 Given 1Result Comment: [id number] Comment: [facility]# [address] [phone] Comment: [03/10/2017] [facility] [phone] Comment: [facility]: [phone] Comment: [10/10/2013] #16Admin Note: historical data Medications amLODIPine 5 mg oral tablet 5 mg, 1, tablet, By Mouth, Daily, # 30 tablet, Refills 0, Tot. Refills 0, Maintenance, 07/21/21 7:40:00 EST, Do Not Route, new dose Start Date: 07/21/21 Stop Date: 08/20/21 Status: OrderedamLODIPine 5 mg oral tablet 5 mg, Tablet, By Mouth, 08/29/21 9:00:00 EDT Start Date: 08/29/21 Stop Date: 08/29/21 Status: CompletedcloNIDine 0.1 mg oral tablet 0.1 mg, 1, tablet, By Mouth, Daily, is morning, Refills 0, Maintenance, 08/26/21 14:00:00 EDT, Partial fill upon patient request if the prescription is for a schedule II opioid drug. Start Date: 08/26/21 Status: OrderedcloNIDine 0.2 mg oral tablet 1, tablet, By Mouth, Daily at bedtime, # 30 tablet, Refills 5, Route to Pharmacy Electronically, [facility], 174, cm, 05/27/21 15:55:00 EST, Height, 82, kg, 05/04/21 12:35:00 EST, Dry Weight Start Date: 06/14/21 Status: OrderedFLUoxetine 20 mg oral tablet 1 tablet = 20 mg, By Mouth, Daily, # 30 tablet, 5 Refills, Maintenance, 11/17/20 4:20:00 EDT, Tablet, [facility], 173, cm, 07/09/20 8:33:00 EST, Height Start Date: 11/17/20 Status: Orderedfolic acid 1 mg oral tablet 1 mg, 1, tablet, By Mouth, Daily, # 30 tablet, Refills 0, Tot. Refills 0, Maintenance, 08/29/21 10:08:00 EDT, Route to Pharmacy Electronically, [facility], Partial fill upon patient request if [...] a day, # 60 capsule, 2 Refills, [facility], 174, cm, 05/27/21 15:55:00 EST, Height, 82, kg, 05/04/21 12:35:00 EST, Dry Weight Start Date: 06/14/21 Status: Orderedthiamine 100 mg oral tablet 100 mg, 1, tablet, By Mouth, Daily, for 30 days, # 30 tablet, Refills 0, Tot. Refills 0, Acute 09/28/21 10:08:00 EDT, 08/29/21 10:08:00 EDT, Route to Pharmacy Electronically, [facility], Partial fill upon patient request if the prescription is fo... Start Date: 08/29/21 Stop Date: 09/28/21 Status: OrderedtraZODone 50 mg oral tablet 1, tablet, By Mouth, Daily at bedtime, PRN, # 30 tablet, Refills 5, NEEDED FOR INSOMNIA, Route toPharmacy Electronically, [facility], 174, cm, 05/27/21 15:55:00 EST, Height, 82, kg, 05/04/21 12:35:00 EST, Dry Weight Start Date: 06/14/21 Status: Ordered Problem List Condition Effective Dates Status Health Status Informant Essential Hypertension(Confirmed)1, 2, Active 3 H/O herpes zoster(Confirmed)4 12/23/07 Active Hyperlipidemia(Confirmed) Active Impaired fasting glucose(Confirmed)5 Active Major depression in full Active remission(Confirmed) Fatty liver us 2020(Confirmed) Active 1urine catecholamines appear htnrny2zhmnexbs renal artery rgrjcu4u/o secondary walnv3zwmla T11 [id number] pre diabetic increased risk diabetes Vital Signs Most recent to oldest 1 2 3 [Reference Range]: Height 173 cm 173 cm 173 cm (08/27/21 4:03 AM) (08/26/21 11:52 PM) (08/26/21 7: 44 PM) Weight 73.9 kg 74.5 kg 74.5 kg (08/26/21 2:02 PM) (08/26/21 10:11 AM) (08/26/21 8: 10 AM) Oxygen Saturation [94-100 95 % 100 % 99 % %] (08/29/21 9:00 AM) (08/29/21 8:00 AM) (08/29/21 7:0 0 AM) Pulse Rate [55-90 bpm] 63 bpm 46 bpm 44 bpm (08/29/21 8:45 AM) *L* *L* (08/29/21 6:00 AM) (08/29/21 5:00 AM) Body Mass Index 24.69 24.89 [18.5-24.99] (08/26/21 2:02 PM) (08/26/21 10:11 AM) Blood Pressure 136/89 mm Hg 130/77 mm Hg 130/77 mm Hg [90-138/55-84 mm Hg] (08/29/21 10:11 AM) (08/29/21 9:00 AM) ( 8:45 AM) Respiratory Rate [16-30 15 br/min 16 br/min 12 br/mi n br/min] *L* (08/29/21 8:45 AM) *L* (08/29/21 9:00 AM) (08/29/21 8:00 AM) Temperature [96.8-100.4 98.0 DegF 97.9 DegF 98 DegF DegF] (08/29/21 9:00 AM) (08/29/21 5:00 AM) (08/29/21 12: 00 AM) Liters per Minute 0 L/min 0 L/min (08/28/21 3:00 PM) (08/28/21 11:00 AM) Mode of Delivery (Oxygen) Room air Room air Room a ir (08/29/21 9:00 AM) (08/29/21 7:00 AM) (08/29/21 6:0 0 AM) Blood pressure sites Arm, right Arm, right Arm, right (08/29/21 9:00 AM) (08/29/21 7:00 AM) (08/29/21 6:0 0 AM) Temperature Route Oral Temporal Temporal (08/29/21 9:00 AM) (08/29/21 5:00 AM) (08/29/21 12: 00 AM) Dry Weight 73.9 kg 74.5 kg 74.5 kg (08/26/21 2:02 PM) (08/26/21 10:11 AM) (08/26/21 8: 10 AM) Weight Obtained Via Standing scale Patient/family stated (08/26/21 2:02 PM) (08/26/21 8:10 AM) Dry Weight Obtained Via Standing scale Patient/family stated (08/26/21 2:02 PM) (08/26/21 8:10 AM) Social History Social History Type Response Smoking Status Never (less than 100 in life time) entered on: 07/17/21 Sex
--- NOTE | 2022-06-28 16:06 | ED.ALCOHOL ---
HPI - Alcohol General Chief Complaint: ETOH/Substance Use Stated Complaint: HIGH BP 170/110,ETOH USE Time Seen by Provider: 06/28/22 15:57 Source: patient and EMS Mode of arrival: EMS Limitations: altered mental status (Intoxicated) History of Present Illness HPI narrative: 36-year-old male presents via EMS for alcohol intoxication. Patient's words are slurred, he is able to answer questions, is weeping. Smells of alcohol. States that he drank almost 2 L of vodka today. complaint: alcohol intoxication, alcohol withdrawal, alcohol dependence and desires rehab Last drink: Just prior to admission Chronic alcohol use: Yes Previous visits for alcohol intoxication: Yes Recent trauma: No Associated symptoms: denies other symptoms Treatments prior to arrival: none Related Data Home Medications Medication Instructions Recorded Confirmed amlodipine 5 mg tablet 1 tab PO DAILY 12/03/21 12/03/21 buspirone 30 mg tablet 1 tab PO BID 12/03/21 12/03/21 omeprazole 40 mg capsule,delayed 1 cap PO DAILY 12/03/21 12/03/21 release Allergies Allergy/AdvReac Type Severity Reaction Status Date / Time No Known Allergies Allergy Unknown UNKNOWN Verified 09/19/21 10:42 [NO KNOWN ALLERGIES] Review of Systems Review of Systems: Yes Unobtainable due to mental status (Alcohol intoxication) [facility] Past Medical History Attestation statement: The following information was validated with the patient. Source: old records reviewed Medical History Alcohol use disorder, severe, in early remission Anxiety and depression ETOH abuse Hypertension Psychiatric disturbance Social History Social History Household Members: None Housing: House Do you presently have visiting nurse or other home services: No Alcohol intake: current Alcohol intake frequency: 3 or more drinks per day Alcohol type: hard liquor Patient Tobacco Use Status: Never used Tobacco Smoked in Last 30 Days: No e-Cigarette/Vaping Use: Never Used Second Hand Smoke Exposure: No Use of substances other than those prescribed or required for medical reasons: No Last Used Substance: Just Prior to Admission Any prior treatment program specific to substance use: Yes Advance Directives: No Advance Directives Information Provided: No Nutrition Risks: No Nutritional Risk service: No Sexual orientation: Straight/Heterosexual Physical Exam ED Vital Signs: Vital Signs - 24 hr 06/28/22 15:39 06/28/22 17:09 06/28/22 17:48 Temperature 97.8 F Pulse Rate 130 H 114 H 120 H Respiratory Rate 18 18 16 Blood Pressure 155/95 H 142/80 H 151/85 H Pulse Oximetry 95 97 98 Oxygen Delivery Method Room Air Room Air Room Air 06/28/22 17:50 06/28/22 18:09 Temperature 97.8 F Pulse Rate 120 H 123 H Respiratory Rate 16 20 Blood Pressure 151/85 H 149/86 H Pulse Oximetry 98 97 Oxygen Delivery Method Room Air Room Air BMI result Body Mass Index 28.2 Appearance: Alert. Intoxicated. Eyes: Pupils equal, round and reactive to light. ENT: Pharynx normal. Neck: Normal inspection. Neck supple. CVS: Tachycardic heart rate and rhythm. Respiratory: No respiratory distress. Breath sounds normal. Abdomen: Soft and nontender. Skin: Facial flushing consistent with withdrawal symptoms. Extremities: No lower extremity edema. Gait not assessed for safety. Neuro: No motor deficit. No sensory deficit. Cranial nerves 2-12 intact. Course Course Course Narrative: 36-year-old male presents for ETOH intoxication, would like to be detoxed. Patient was in senior living, arrested for destruction of property in [facility], released 4 days ago. He has been drinking at least 1-2 L of vodka daily. He has had multiple admissions to Psychiatry and to Medicine for EtOH withdrawal symptoms in the past. Patient is visibly intoxicated, he is polite and cooperative at this time. Patient is interested in detox. Will order labs, and phenobarbital protocol once labs return. Patient is tachycardic, with an elevated blood pressure. Will give L of fluid, and Ativan. CIWA q.2 hours. 17:10 patient lab values indicate alcoholic ketoacidosis. Gap 26. ETOH 363. Order for thiamine, D5 half normal saline, and phenobarbital protocol. classroom technology coach discussed plan with patient, detox will be pending. 18:00 patient admitted to hospitalist for EtOH withdrawal, and alcoholic ketoacidosis. Consultations Consultation #1: Lidia Time: 18:00 Medical Decision Making Differential Diagnosis Differential Diagnoses: The differential diagnosis associated with the presentation includes ETOH intoxication, alcohol ketoacidosis Admission/Observation Consideration of admission/observation: Escalation of care including admission/observation considered Requires admission for EtOH withdrawal symptoms. Consult Healthcare Provider Management of the patient was discussed with: Hospitalist and Behavioral Health Provider Lab Data MDM Lab Attestation statement: I reviewed the patient's lab results. 06/28/22 16:13 06/28/22 16:13 Labs: Lab Results 06/28/22 06/28/22 06/28/22 Range/Units 16:13 16:13 16:13 WBC 8.9 (4.8-10.8) X10*3/uL RBC 5.77 (4.60-5.80) X10*6/uL Hgb 16.9 (14.0-18.0) g/dl Hct 47.7 (42.0-52.0) % MCV 82.7 (80.0-98.0) fL MCH 29.3 (27.0-33.0) pg MCHC 35.4 (31.0-36.0) g/dl RDW 12.1 (11.0-16.0) % Plt Count 268 D (160-400) X10*3/uL MPV 9.6 (9.4-12.4) fL Immature Gran % (Auto) 0.3 (0.0-0.4) % Neut % (Auto) 63.5 (45-73) % Lymph % (Auto) 24.2 (20-40) % [place] % (Auto) 11.1 H (2-11) % Eos % (Auto) 0.0 (0-4) % Baso % (Auto) 0.9 (0-2) % Lymph # (Auto) 2.2 (1.2-4.9) X10*3/uL [place] # (Auto) 1.0 (0.1-1.2) X10*3/uL Eos # (Auto) 0.0 (0.0-0.4) X10*3/uL Baso # (Auto) 0.1 (0.0-0.2) X10*3/uL Abs Immat Gran (auto) 0.03 (0.00-0.03) X10*3/uL Absolute Neuts (auto) 5.7 (2.0-8.3) x10*3/uL Absolute Nucleated RBC 0.000 (0.0-0.012) X10*3/uL Nucleated RBC % (auto) 0.0 (0.0-0.2) /100WBC Sodium 142 (135-145) mmol/L Potassium 3.7 (3.3-5.1) mmol/L Chloride 99 (96-108) mmol/L Carbon Dioxide 21 L (22-29) mmol/L Anion Gap 26 H (12-20) BUN 13 (9-16) mg/dL Creatinine 0.93 (0.5-1.4) mg/dL Estim Creat Clear Calc 116.1 Estimated GFR > 60 Random Glucose 108 (60-115) mg/dL Calcium 9.5 D (8.4-10.2) mg/dL Magnesium 2.2 (1.6-2.6) mg/dL Total Bilirubin 0.7 (0.0-1.0) mg/dL AST 35 (5-37) U/L ALT 38 (0-40) U/L Alkaline Phosphatase 79 (39-117) U/L Troponin I High Sens (<3.5-35.0) ng/L Total Protein 8.4 H (6.5-8.0) g/dL Albumin 5.1 H (3.5-5.0) g/dL Ethyl Alcohol 363 H* mg/dL Influenza Type A (PCR) (Negative) Influenza Type B (PCR) (Negative) RSV RNA Qual (PCR) (Negative) SARS-CoV-2 RNA (RT-PCR) (Negative) 06/28/22 06/28/22 Range/Units 16:13 16:13 WBC (4.8-10.8) X10*3/uL RBC (4.60-5.80) X10*6/uL Hgb (14.0-18.0) g/dl Hct (42.0-52.0) % MCV (80.0-98.0) fL MCH (27.0-33.0) pg MCHC (31.0-36.0) g/dl RDW (11.0-16.0) % Plt Count (160-400) X10*3/uL MPV (9.4-12.4) fL Immature Gran % (Auto) (0.0-0.4) % Neut % (Auto) (45-73) % Lymph % (Auto) (20-40) % [place] % (Auto) (2-11) % Eos % (Auto) (0-4) % Baso % (Auto) (0-2) % Lymph # (Auto) (1.2-4.9) X10*3/uL [place] # (Auto) (0.1-1.2) X10*3/uL Eos # (Auto) (0.0-0.4) X10*3/uL Baso # (Auto) (0.0-0.2) X10*3/uL Abs Immat Gran (auto) (0.00-0.03) X10*3/uL Absolute Neuts (auto) (2.0-8.3) x10*3/uL Absolute Nucleated RBC (0.0-0.012) X10*3/uL Nucleated RBC % (auto) (0.0-0.2) /100WBC Sodium (135-145) mmol/L Potassium (3.3-5.1) mmol/L Chloride (96-108) mmol/L Carbon Dioxide (22-29) mmol/L Anion Gap (12-20) BUN (9-16) mg/dL Creatinine (0.5-1.4) mg/dL Estim Creat Clear Calc Estimated GFR Random Glucose (60-115) mg/dL Calcium (8.4-10.2) mg/dL Magnesium (1.6-2.6) mg/dL Total Bilirubin (0.0-1.0) mg/dL AST (5-37) U/L ALT (0-40) U/L Alkaline Phosphatase (39-117) U/L Troponin I High Sens 5.2 (<3.5-35.0) ng/L Total Protein (6.5-8.0) g/dL Albumin (3.5-5.0) g/dL Ethyl Alcohol mg/dL Influenza Type A (PCR) NEGATIVE (Negative) Influenza Type B (PCR) NEGATIVE (Negative) RSV RNA Qual (PCR) NEGATIVE (Negative) SARS-CoV-2 RNA (RT-PCR) NEGATIVE (Negative) Independent Interpretation I performed an independent interpretation of an: EKG Interpretation: Sinus tachycardia Cannot rule out Inferior infarct , age undetermined Abnormal ECG When compared with ECG of 03-DEC-2021 12:23, No significant change was found Vent. rate 119 BPM NH interval 154 ms QRS duration 78 ms QT/QTc 330/464 ms P-R-T axes 45 0 28 28-JUN-2022 16:24:15 External Record Review External record reviewed: Inpatient record, Outpatient record and Prior outpatient labs Chronic Conditions Patient?s care impacted by: Other (Alcoholism) Social Determinants Patient?s care significantly limited by Social Determinants of Health including: Other Social Determinant of Health Medications Administered Generic Name Dose Route Start Last Admin Trade Name Freq PRN Reason Stop Dose Admin Enoxaparin Sodium 40 mg 06/28/22 19:00 06/28/22 19:14 Enoxaparin Sodium 40 Mg/0.4 Ml Syringe SUBCUT 40 mg Q24H VANESSA Administration Dextrose/Sodium Chloride 1,000 mls @ 500 mls/hr 06/28/22 17:30 06/28/22 18:12 D51/2ns IVCONT 500 mls/hr .Q2H VANESSA Administration Discontinued Medications Generic Name Dose Route Start Last Admin Trade Name Freq PRN Reason Stop Dose Admin Sodium Chloride 1,000 mls @ 999 mls/hr 06/28/22 16:15 06/28/22 17:18 Ns IVCONT 06/28/22 17:15 Infused .Q1H1M VANESSA Infusion Sodium Chloride 1,000 mls @ 999 mls/hr 06/28/22 16:15 06/28/22 16:17 Ns IV 06/28/22 17:15 Not Given .Q1H1M VANESSA Thiamine HCl 100 mg/ Sodium 101 mls @ 202 mls/hr 06/28/22 17:18 06/28/22 18:01 Chloride IV 06/28/22 17:47 Infused ONCE ONE Infusion Lorazepam 2 mg 06/28/22 16:07 06/28/22 16:18 Lorazepam 2 Mg/Ml Vial IVPUSH 06/28/22 16:08 2 mg ONCE ONE Administration Phenobarbital Sodium 330 mg 06/28/22 18:00 06/28/22 18:12 Phenobarbital Sodium 130 Mg/Ml Im Once IM 06/28/22 18:01 330 mg ONCE ONE Administration Protocol Discharge Plan Discharge Clinical Impression: Alcohol use disorder, severe, dependence, Alcohol withdrawal syndrome, Alcoholic ketoacidosis Patient Disposition: Admitted As Inpatient Interventions: [place]-Suicide Risk Severity Scale Last Done: 06/28/22 16:23
[2022-06-28] MEDS: 0.9 % Sodium Chloride 1,000 ML 999 ML IVCONT (16:17)
[2022-06-28] MEDS: LORazepam 2 MG/ML VIAL IVPUSH (16:18)
[2022-06-28 16:19] LABS: MANUAL DIFF FLAG NO
--- NOTE | 2022-06-28 16:20 | PC.NURSE ---
Patient present to ED with report of drinking heavily over the last 4 days corroborated with patient has been drinking vodka heavily. Patient alert oriented to person place time and situation is tachycardic in the 13's-150's provider aware. Denies drug use LS clear no respiratroy distress noted. Denies ABD pain or any injury. IV Access obtained labs collected and sent patient given IVF ativan and had an EKG performed will CTM
[2022-06-28 16:30] LABS: Basophils Absolute Auto 0.1 X10*3/uL (0.0-0.2); Basophils Percent Auto 0.9 % (0-2); Hematocrit 47.7 % (42.0-52.0); Hemoglobin 16.9 g/dl (14.0-18.0); Imm Gran Abs Auto 0.03 X10*3/uL (0.00-0.03); Imm Gran Pct Auto 0.3 % (0.0-0.4); Lymphocytes Absolute Auto 2.2 X10*3/uL (1.2-4.9); Lymphocytes Percent Auto 24.2 % (20-40); Mean Corpuscular HGB Conc 35.4 g/dl (31.0-36.0); Mean Corpuscular Hemoglobin 29.3 pg (27.0-33.0); Mean Corpuscular Volume 82.7 fL (80.0-98.0); Mean Platelet Volume 9.6 fL (9.4-12.4); Monocytes Percent Auto 11.1 % (2-11); Neutrophils Absolute Auto 5.7 x10*3/uL (2.0-8.3); Neutrophils Percent Auto 63.5 % (45-73); Platelet Count 268 X10*3/uL (160-400); Red Blood Count 5.77 X10*6/uL (4.60-5.80); Red Cell Distribution Width 12.1 % (11.0-16.0); White Blood Count 8.9 X10*3/uL (4.8-10.8)
[2022-06-28 16:37] LABS: Ethanol 363 mg/dL
[2022-06-28 16:46] LABS: Troponin-I High Sensitivity 5.2 ng/L (<3.5-35.0)
[2022-06-28 16:49] LABS: Alanine Aminotransferase 38 U/L (0-40); Albumin Level 5.1 g/dL (3.5-5.0); Alkaline Phosphatase 79 U/L (39-117); Anion Gap 26 (12-20); Aspartate Amino Transferase 35 U/L (5-37); Bilirubin Total 0.7 mg/dL (0.0-1.0); Blood Urea Nitrogen 13 mg/dL (9-16); Calcium 9.5 mg/dL (8.4-10.2); Carbon Dioxide 21 mmol/L (22-29); Chloride 99 mmol/L (96-108); Creatinine Clr Calc Pharmacy 116.1; Estimated Glomerular Filt Rate > 60; Glucose Random 108 mg/dL (60-115); Potassium 3.7 mmol/L (3.3-5.1); Sodium 142 mmol/L (135-145); Total Protein 8.4 g/dL (6.5-8.0)
[2022-06-28 17:04] LABS: Influenza A PCR NEGATIVE (Negative); Influenza B PCR NEGATIVE (Negative); Resp Syncy Virus RNA Qual PCR NEGATIVE (Negative); SARS COV2 PCR INHOUSE NEGATIVE (Negative)
[2022-06-28 17:09] VITALS: BP 142/80; PULSE 114; RESP 18; O2SAT 97
--- NOTE | 2022-06-28 17:25 | MHC.RECOVSUP ---
? Reason for consult:Recovery Support o Current location: ED22H? o Identified substance use concern:ED22H ? - Withdrawal - Support ? ?Intervention: o Community resources provided o Harm reduction discussion ? Plan: o Follow up tomorrow ? ? Additional information:?Case consultation with medical team before entry. Pt. is experiencing alcohol withdrawal and will be admitted. We reviewed some harm reduction strategies and possible detox. I will follow up tomorrow with additional resources; possible referral for [facility].
[2022-06-28] MEDS: Thiamine HCL 100 MG in 0.9 % Sodium Chloride 100 ML 202 MG IV (17:31)
--- NOTE | 2022-06-28 17:37 | PC.NURSE ---
thiamine starter per order
[2022-06-28 17:48] VITALS: BP 151/85; PULSE 120; RESP 16; TEMP 36.6; O2SAT 98
[2022-06-28 17:50] VITALS: BP 151/85; PULSE 120; RESP 16; TEMP 36.6; O2SAT 98
[2022-06-28 18:09] VITALS: BP 149/86; PULSE 123; RESP 20; O2SAT 97
[2022-06-28] MEDS: PHENobarbitaL sodium 130 MG/ML IM ONCE 330 MG IM (18:12)
[2022-06-28] MEDS: Dextrose 5 % and 0.45 % NaCl 1,000 ML 500 ML IVCONT ×3 (18:12→22:25)
--- NOTE | 2022-06-28 18:16 | PC.NURSE ---
patient a&ox2 person/place, pt moved to room 22 for engineer second assistant, engineer second assistant applied pt sinus tach on monitor, vitals otherwise stable, pt medicated with thiamine per order, d5 1/2ns started at 500/hr, phenobarb per order, call jack within reach, will continue to monitor
--- NOTE | 2022-06-28 18:19 | P.HPHOSP_ITS ---
History of Present Illness Date of Service: 06/28/22 Chief Complaint: intoxication 36yo M with AUD recently released from half-way after property distruction in [facility][1] and has been drinking 1L vodka/day for the past 4 days. Frequent admissions for EtOH withdrawal in past. Police brought him in and he requests detoxification. He was found to be hypertensive and tachycardic with impending alcohol withdrawal. He has been vomiting and labs showed an anion gap of 26. He was given IV fluids and started on phenobarbital taper along with thiamine and IV fluids. Review of Systems Review of Systems: Yes all other systems are reviewed and are negative [facility] Medical History Alcohol use disorder, severe, in early remission Anxiety and depression ETOH abuse Hypertension Psychiatric disturbance Pertinent family history: no liver disease Social History Household Members: None Housing: House Do you presently have visiting nurse or other home services: No Alcohol intake: current Alcohol intake frequency: 3 or more drinks per day Alcohol type: hard liquor Patient Tobacco Use Status: Never used Tobacco Smoked in Last 30 Days: No e-Cigarette/Vaping Use: Never Used Second Hand Smoke Exposure: No Use of substances other than those prescribed or required for medical reasons: No Last Used Substance: Just Prior to Admission Any prior treatment program specific to substance use: Yes Advance Directives: No Advance Directives Information Provided: No Nutrition Risks: No Nutritional Risk service: No Sexual orientation: Straight/Heterosexual Meds Allergies Allergy/AdvReac Type Severity Reaction Status Date / Time No Known Allergies Allergy Unknown UNKNOWN Verified 09/19/21 10:42 [NO KNOWN ALLERGIES] Active Medications: Current Medications Dextrose/Sodium Chloride (D51/2ns) 1,000 mls @ 500 mls/hr IVCONT .Q2H VANESSA Last Admin: 06/28/22 18:12 Dose: 500 mls/hr Pharmacy Consult (Consult Rx Etoh Phenob Po Only) 1 each MISCELLANE ONCE PRN; Protocol PRN Reason: Consult order Pharmacy Consult (Consult Rx Perform Med Rec) 1 each MISCELLANE STAT STA Stop: 06/28/22 18:05 Phenobarbital (Phenobarbital 15 Mg Tablet) 45 mg PO BID VANESSA; Protocol Stop: 06/30/22 21:01 Phenobarbital (Phenobarbital 30 Mg Tablet) 30 mg PO BID [facility]; Protocol Stop: 07/02/22 21:01 Phenobarbital (Phenobarbital 30 Mg Tablet) 30 mg PO DAILY [facility]; Protocol Stop: 07/04/22 09:01 Phenobarbital Sodium (Phenobarbital Sodium 130 Mg/Ml Vial Im Q3hx2) 250 mg IM Q3H [facility]; Protocol Stop: 06/29/22 00:01 Home Medications Medication Instructions Recorded Confirmed Last Taken Type amlodipine 5 mg tablet 1 tab PO DAILY 12/03/21 12/03/21 Unknown History buspirone 30 mg tablet 1 tab PO BID 12/03/21 12/03/21 Unknown History omeprazole 40 mg capsule,delayed 1 cap PO DAILY 12/03/21 12/03/21 Unknown History release Physical Exam Vital Signs and Narrative: Vital Signs: Last Vital Signs Temp 97.8 F 06/28/22 17:50 Pulse 123 H 06/28/22 18:09 Resp 20 06/28/22 18:09 BP 149/86 H 06/28/22 18:09 Pulse Ox 97 06/28/22 18:09 O2 Del Method 06/28/22 18:09 BMI result Body Mass Index 28.2 Gen: flushed, somewhat tremulous HEENT: sclera anicteric, moist mucus membranes Neck: supple Lungs: clear to auscultation bilaterally Heart: tachycardic, no murmurs Abd: soft, non-tender, non-distended Ext: no edema Skin: warm/well-perfused Neuro: alert and oriented x3, no focal findings Psych: appropriate affect Results Labs 06/28/22 16:13 06/28/22 16:13 Labs: Laboratory Results - last 24 hr 06/28/22 06/28/22 06/28/22 16:13 16:13 16:13 MCV 82.7 MCH 29.3 MCHC 35.4 RDW 12.1 Plt Count 268 D MPV 9.6 Immature Gran % (Auto) 0.3 Neut % (Auto) 63.5 Lymph % (Auto) 24.2 [place] % (Auto) 11.1 H Eos % (Auto) 0.0 Baso % (Auto) 0.9 Lymph # (Auto) 2.2 [place] # (Auto) 1.0 Eos # (Auto) 0.0 Baso # (Auto) 0.1 Abs Immat Gran (auto) 0.03 Absolute Neuts (auto) 5.7 Absolute Nucleated RBC 0.000 Nucleated RBC % (auto) 0.0 Anion Gap 26 H Estim Creat Clear Calc 116.1 Estimated GFR > 60 Random Glucose 108 Calcium 9.5 D Total Bilirubin 0.7 AST 35 ALT 38 Alkaline Phosphatase 79 Troponin I High Sens Total Protein 8.4 H Albumin 5.1 H Ethyl Alcohol 363 H* Influenza Type A (PCR) Influenza Type B (PCR) RSV RNA Qual (PCR) SARS-CoV-2 RNA (RT-PCR) 06/28/22 06/28/22 16:13 16:13 MCV MCH MCHC RDW Plt Count MPV Immature Gran % (Auto) Neut % (Auto) Lymph % (Auto) [place] % (Auto) Eos % (Auto) Baso % (Auto) Lymph # (Auto) [place] # (Auto) Eos # (Auto) Baso # (Auto) Abs Immat Gran (auto) Absolute Neuts (auto) Absolute Nucleated RBC Nucleated RBC % (auto) Anion Gap Estim Creat Clear Calc Estimated GFR Random Glucose Calcium Total Bilirubin AST ALT Alkaline Phosphatase Troponin I High Sens 5.2 Total Protein Albumin Ethyl Alcohol Influenza Type A (PCR) NEGATIVE Influenza Type B (PCR) NEGATIVE RSV RNA Qual (PCR) NEGATIVE SARS-CoV-2 RNA (RT-PCR) NEGATIVE Assessment and Plan (1) Alcohol withdrawal syndrome: Status: Acute (2) Alcoholic ketoacidosis: Status: Acute (3) Alcohol use disorder, severe, dependence: Status: Acute Plan 36yo M with AUD, frequent admissions for withdrawal, presenting with impending withdrawal as well as ketoacidosis. # high-risk alcohol withdrawal - admit to M/S, give phenobarbital taper # EtOH ketoacidosis - IV fluids hydration, recheck electrolytes in AM # AUD - Addiction Medicine + CARE Team consultations # HTN - amlodipine # GERD - PPI # anxiety - buspirone # VTE prophylaxis: LMWH # code status: full I anticipate that the patient will stay at least 2 midnights as an inpatient in the hospital due to the above reasons. It is neither reasonable nor safe to care for them in a less acute setting. Time Spent With Patient Time: Total time managing care of this patient today ___55_ minutes. Quality Stroke Does the patient have a stroke diagnosis?: No VTE Prior VTE?: No VTE Risk Level:: Medical - moderate - high VTE Device Contraindication: N/A - Device Ordered VTE Drug Contraindication: N/A - Med Ordered
[2022-06-28 18:36] LABS: Magnesium 2.2 mg/dL (1.6-2.6)
[2022-06-28 19:00] LABS: Appearance Urine Clear; Color Urine Yellow; Glucose Urine UA Negative (Negative); Leukocyte Esterase Urine Negative (Negative); Nitrite Urine Negative (Negative); Specific Gravity - Urine 1.015 (1.005-1.025); UMIC TRIGGER UACC YES; Urine Blood Negative (Negative); Urine Ketones 15 mg/dL (Negative); Urine Protein 100 (2+) mg/dL (Neg-Trace)
[2022-06-28 19:03] LABS: Bacteria Urine None Seen (None Seen); RBC Urine 0-2 /HPF (0-2); Squamous Epithelial Cell Urine 0-2 /HPF (0-2); WBC Urine 0-5 /HPF (0-5)
[2022-06-28 19:10] LABS: Amphetamine Screen Urine Not Detected (Not Detect); Barbiturates, Urine Not Detected (Not Detect); Benzodiazepines Screen Urine Not Detected (Not Detect); Cannabinoid Screen Urine Not Detected (Not Detect); Cocaine Screen Urine Not Detected (Not Detect); Fentanyl, urine Not Detected (Not Detect); Opiate Screen Urine Not Detected (Not Detect); Phencyclidine Screen Urine Not Detected (Not Detect)
[2022-06-28] MEDS: Enoxaparin Sodium 40 MG/0.4 ML SYRINGE SUBCUT (19:14)
[2022-06-28] MEDS: busPIRone HCl 10 MG TABLET PO (20:26)
[2022-06-28] MEDS: PHENobarbitaL sodium 130 MG/ML VIAL IM Q3Hx2 250 MG IM (20:26)
--- NOTE | 2022-06-28 21:12 | PC.NURSE ---
Nurse to nurse report given to ESTEVAN Tate on S3. Patient to be transported to S3, room 359 by set up mechanic coil winding machines.
[2022-06-28] MEDS: ondansetron HCL 4 MG/2 ML VIAL IVPUSH (22:26)
[2022-06-28] MEDS: Acetaminophen 325 MG TABLET 650 MG PO (22:26)
[2022-06-28] MEDS: hydrOXYzine HCL 25 MG TABLET PO (22:30)
[2022-06-29] MEDS: PHENobarbitaL sodium 130 MG/ML VIAL IM Q3Hx2 250 MG IM
[2022-06-29] MEDS: Dextrose 5 % and 0.45 % NaCl 1,000 ML 500 ML IVCONT ×5 (00:01→08:02)
[2022-06-29 01:43] VITALS: BMI 29.0
[2022-06-29 03:47] VITALS: BP 133/74; PULSE 114; RESP 20; TEMP 37.1; O2SAT 96
[2022-06-29] MEDS: PHENobarbitaL sodium 130 MG/ML VIAL IM ×3 (06:06→15:56)
[2022-06-29] MEDS: Omeprazole 40 MG CAPSULE.DR PO (06:06)
--- NOTE | 2022-06-29 06:09 | MHC.PIE ---
late entry; 06/280 p;pt arrived from ed c/o anxiety. note; pheno next dose not due till 0000 i; dr aguilar notified; new order atarax tid prn e; will cont to monitor
--- NOTE | 2022-06-29 06:15 | MHC.PIE ---
p; 0530 pt woke up c/o withdraw asking for pheno. pt noted with increase shaking and increased nausea. note; next dose pheno scheduled for 0900. i; dr aguilar notified; new order phenobarb im now e; will cont to monitor
[2022-06-29 07:05] LABS: Anion Gap 18 (12-20); Blood Urea Nitrogen 9 mg/dL (9-16); Calcium 8.7 mg/dL (8.4-10.2); Carbon Dioxide 22 mmol/L (22-29); Chloride 99 mmol/L (96-108); Creatinine Clr Calc Pharmacy 138.3; Estimated Glomerular Filt Rate > 60; Glucose Random 121 mg/dL (60-115); Potassium 3.2 mmol/L (3.3-5.1); Sodium 136 mmol/L (135-145)
[2022-06-29 07:14] VITALS: BP 158/90; PULSE 120; RESP 18; TEMP 36.6; O2SAT 97
[2022-06-29] MEDS: PHENobarbitaL 15 MG TABLET 45 MG PO ×2 (07:32→20:06)
[2022-06-29] MEDS: ondansetron HCL 4 MG/2 ML VIAL IVPUSH ×2 (07:33→15:56)
[2022-06-29] MEDS: hydrOXYzine HCL 25 MG TABLET PO ×2 (07:33→15:56)
[2022-06-29] MEDS: amLODIPine Besylate 5 MG TABLET PO (07:33)
[2022-06-29] MEDS: busPIRone HCl 10 MG TABLET PO (07:33)
[2022-06-29] MEDS: 0.9 % Sodium Chloride Flush 3 ML SYRINGE IVFLUSH ×3 (07:35→20:06)
[2022-06-29 07:57] LABS: Magnesium 1.5 mg/dL (1.6-2.6)
[2022-06-29] MEDS: Potassium Chloride ER 20 MEQ TAB.ER.PRT 40 MEQ PO (08:53)
[2022-06-29] MEDS: Magnesium Oxide 400 MG TABLET PO ×2 (10:19→15:56)
--- NOTE | 2022-06-29 11:12 | PHA.MEDREC ---
Pharmacy Consult ? Medication Reconciliation Pharmacy has completed the medication reconciliation. DUONG SPOKE WITH PATIENT IN ROOM WHO KNEW MEDICATIONS
--- NOTE | 2022-06-29 11:43 | P.PNIM_ITS ---
Subjective Subjective Date of Service: 06/29/22 Interval History: felt tremulous this morning, got 2 extra doses of IM phenobarbital No N/V Review of Systems Review of Systems: Yes all other systems are reviewed and are negative Physical Exam Vital Signs: Vital Signs: Last Vital Signs Temp 98 F 06/29/22 07:14 Pulse 120 H 06/29/22 07:14 Resp 18 06/29/22 07:14 BP 158/90 H 06/29/22 07:14 Pulse Ox 97 06/29/22 07:14 O2 Del Method 06/29/22 07:14 BMI result Body Mass Index 29.0 Gen: anxious HEENT: sclera anicteric, moist mucus membranes Neck: supple Lungs: clear to auscultation bilaterally Heart: regular + tachycardic, no murmurs Abd: soft, non-tender, non-distended Ext: no edema Skin: warm/well-perfused Neuro: alert and oriented x3, no focal findings Psych: appropriate affect Objective Data Active Medications Acetaminophen (Acetaminophen 325 Mg Tablet) 650 mg PO Q6H PRN PRN Reason: Pain, Mild (Pain Scale 1-3) Last Admin: 06/28/22 22:26 Dose: 650 mg Documented By: LYNDSEY Amlodipine Besylate (Amlodipine Besylate 5 Mg Tablet) 5 mg PO DAILY [facility]; Protocol Last Admin: 06/29/22 07:33 Dose: 5 mg Documented By: LYNDSEY Buspirone HCl (Buspirone Hcl 10 Mg Tablet) 10 mg PO BID [facility] Last Admin: 06/29/22 07:33 Dose: 10 mg Documented By: LYNDSEY Enoxaparin Sodium (Enoxaparin Sodium 40 Mg/0.4 Ml Syringe) 40 mg SUBCUT Q24H [facility] Last Admin: 06/28/22 19:14 Dose: 40 mg Documented By: VINICIO Hydroxyzine HCl (Hydroxyzine Hcl 25 Mg Tablet) 25 mg PO TID PRN PRN Reason: anxiety Last Admin: 06/29/22 07:33 Dose: 25 mg Documented By: LYNDSEY Magnesium Oxide (Magnesium Oxide 400 Mg Tablet) 400 mg PO BIDPC [facility] Last Admin: 06/29/22 10:19 Dose: 400 mg Documented By: LYNDSEY Omeprazole (Omeprazole 40 Mg Capsule.Dr) 40 mg PO DAILY@0630 [facility] Last Admin: 06/29/22 06:06 Dose: 40 mg Documented By: LYNDSEY Ondansetron HCl (Ondansetron Hcl 4 Mg/2 Ml Vial) 4 mg IVPUSH Q8H PRN PRN Reason: Nausea and Vomiting Last Admin: 06/29/22 07:33 Dose: 4 mg Documented By: LYNDSEY Pharmacy Consult (Consult Rx Etoh Phenob Po Only) 1 each MISCELLANE ONCE PRN; Protocol PRN Reason: Consult order Phenobarbital (Phenobarbital 15 Mg Tablet) 45 mg PO BID [facility]; Protocol Stop: 06/30/22 21:01 Last Admin: 06/29/22 07:32 Dose: 45 mg Documented By: LYNDSEY Phenobarbital (Phenobarbital 30 Mg Tablet) 30 mg PO BID [facility]; Protocol Stop: 07/02/22 21:01 Phenobarbital (Phenobarbital 30 Mg Tablet) 30 mg PO DAILY [facility]; Protocol Stop: 07/04/22 09:01 Sodium Chloride (0.9 % Sodium Chloride Flush 3 Ml Syringe) 3 ml IVFLUSH QSHIFT [facility] Last Admin: 06/29/22 07:35 Dose: 3 ml Documented By: LYNDSEY Labs 06/28/22 16:13 06/29/22 05:28 Labs: Laboratory Results - last 24 hr 06/28/22 06/28/22 06/28/22 16:13 16:13 16:13 MCV 82.7 MCH 29.3 MCHC 35.4 RDW 12.1 Plt Count 268 D MPV 9.6 Immature Gran % (Auto) 0.3 Neut % (Auto) 63.5 Lymph % (Auto) 24.2 Saline % (Auto) 11.1 H Eos % (Auto) 0.0 Baso % (Auto) 0.9 Lymph # (Auto) 2.2 Saline # (Auto) 1.0 Eos # (Auto) 0.0 Baso # (Auto) 0.1 Abs Immat Gran (auto) 0.03 Absolute Neuts (auto) 5.7 Absolute Nucleated RBC 0.000 Nucleated RBC % (auto) 0.0 Anion Gap 26 H Estim Creat Clear Calc 116.1 Estimated GFR > 60 Random Glucose 108 Calcium 9.5 D Magnesium 2.2 Total Bilirubin 0.7 AST 35 ALT 38 Alkaline Phosphatase 79 Troponin I High Sens Total Protein 8.4 H Albumin 5.1 H Urine Color Urine Appearance Urine pH Ur Specific [place] Urine Protein Urine Glucose (UA) Urine Ketones Urine Blood Urine Nitrite Ur Leukocyte Esterase Urine RBC Urine WBC Ur Squamous Epith Cells Urine Bacteria Hyaline Casts Urine Opiates Screen Urine Fentanyl Screen Ur Barbiturates Screen Ur Phencyclidine Scrn Ur Amphetamines Screen U Benzodiazepines Scrn Urine Cocaine Screen U Marijuana (THC) Screen Ethyl Alcohol 363 H* Influenza Type A (PCR) Influenza Type B (PCR) RSV RNA Qual (PCR) SARS-CoV-2 RNA (RT-PCR) 06/28/22 06/28/22 06/28/22 16:13 16:13 18:52 MCV MCH MCHC RDW Plt Count MPV Immature Gran % (Auto) Neut % (Auto) Lymph % (Auto) Saline % (Auto) Eos % (Auto) Baso % (Auto) Lymph # (Auto) Saline # (Auto) Eos # (Auto) Baso # (Auto) Abs Immat Gran (auto) Absolute Neuts (auto) Absolute Nucleated RBC Nucleated RBC % (auto) Anion Gap Estim Creat Clear Calc Estimated GFR Random Glucose Calcium Magnesium Total Bilirubin AST ALT Alkaline Phosphatase Troponin I High Sens 5.2 Total Protein Albumin Urine Color Yellow Urine Appearance Clear Urine pH 6.0 Ur Specific [place] 1.015 Urine Protein 100 (2+) H Urine Glucose (UA) Negative Urine Ketones 15 Urine Blood Negative Urine Nitrite Negative Ur Leukocyte Esterase Negative Urine RBC 0-2 Urine WBC 0-5 Ur Squamous Epith Cells 0-2 Urine Bacteria None Seen Hyaline Casts 3-5 Urine Opiates Screen Urine Fentanyl Screen Ur Barbiturates Screen Ur Phencyclidine Scrn Ur Amphetamines Screen U Benzodiazepines Scrn Urine Cocaine Screen U Marijuana (THC) Screen Ethyl Alcohol Influenza Type A (PCR) NEGATIVE Influenza Type B (PCR) NEGATIVE RSV RNA Qual (PCR) NEGATIVE SARS-CoV-2 RNA (RT-PCR) NEGATIVE 06/28/22 06/29/22 18:52 05:28 MCV MCH MCHC RDW Plt Count MPV Immature Gran % (Auto) Neut % (Auto) Lymph % (Auto) Saline % (Auto) Eos % (Auto) Baso % (Auto) Lymph # (Auto) Saline # (Auto) Eos # (Auto) Baso # (Auto) Abs Immat Gran (auto) Absolute Neuts (auto) Absolute Nucleated RBC Nucleated RBC % (auto) Anion Gap 18 Estim Creat Clear Calc 138.3 Estimated GFR > 60 Random Glucose 121 H Calcium 8.7 D Magnesium 1.5 L Total Bilirubin AST ALT Alkaline Phosphatase Troponin I High Sens Total Protein Albumin Urine Color Urine Appearance Urine pH Ur Specific [place] Urine Protein Urine Glucose (UA) Urine Ketones Urine Blood Urine Nitrite Ur Leukocyte Esterase Urine RBC Urine WBC Ur Squamous Epith Cells Urine Bacteria Hyaline Casts Urine Opiates Screen Not Detected Urine Fentanyl Screen Not Detected Ur Barbiturates Screen Not Detected Ur Phencyclidine Scrn Not Detected Ur Amphetamines Screen Not Detected U Benzodiazepines Scrn Not Detected Urine Cocaine Screen Not Detected U Marijuana (THC) Screen Not Detected Ethyl Alcohol Influenza Type A (PCR) Influenza Type B (PCR) RSV RNA Qual (PCR) SARS-CoV-2 RNA (RT-PCR) Assessment and Plan (1) Alcohol withdrawal syndrome: Status: Acute (2) Alcoholic ketoacidosis: Status: Acute Plan hospital d#2 36yo M with AUD, frequent admissions for withdrawal, presenting with impending withdrawal as well as ketoacidosis. # high-risk alcohol withdrawal - continue phenobarbital taper - thiamine + vitamin supplementation # EtOH ketoacidosis - resolved, d/c IV fluids # hypoK # hypoMg - replete, recheck in AM # AUD - Addiction Medicine + CARE Team consultations # HTN - amlodipine # GERD - PPI # anxiety - buspirone # VTE prophylaxis: LMWH # dispo: anticipate home eventually In my clinical judgment, the patient requires continued inpatient hospitalization for the following reasons: EtOH withdrawal supervision, electrlyte deficiencies Time Spent With Patient Time: Total time managing care of this patient today __30__ minutes. Quality Stroke Does the patient have a stroke diagnosis?: No VTE Prior VTE?: No VTE Risk Level:: Medical - moderate - high VTE Device Contraindication: N/A - Device Ordered VTE Drug Contraindication: N/A - Med Ordered
[2022-06-29] MEDS: Thiamine HCL 100 MG TABLET PO (12:35)
[2022-06-29] MEDS: Multivitamin TABLET 1 TAB PO (12:35)
--- NOTE | 2022-06-29 14:01 | MHC.CM.PN ---
PT REPORTS HE LIVES ALONE AND IS INDEPENDENT PT DENIES USE OF DME OR SERVICES PT HAS A HCP ON FILE HE IS KARLEE DOBBINS HE DOES NOT HAVE A PCP SINCE HIS RETIRED DCP: HOME NO SERVICES PT WILL NEED A LYFT
[2022-06-29 15:03] VITALS: BP 150/78; PULSE 104; RESP 18; TEMP 37.3; O2SAT 100
[2022-06-29] MEDS: Enoxaparin Sodium 40 MG/0.4 ML SYRINGE SUBCUT (17:35)
[2022-06-29 19:11] VITALS: BP 151/72; PULSE 86; RESP 16; TEMP 36.9; O2SAT 96
[2022-06-29] MEDS: busPIRone HCl 10 MG TABLET 30 MG PO (20:06)
[2022-06-29] MEDS: traZODone HCL 50 MG TABLET PO (20:06)
[2022-06-30 03:43] VITALS: BP 136/78; PULSE 55; RESP 20; TEMP 36.6; O2SAT 96
[2022-06-30] MEDS: Omeprazole 40 MG CAPSULE.DR PO (06:04)
[2022-06-30 06:15] LABS: Anion Gap 18 (12-20); Blood Urea Nitrogen 10 mg/dL (9-16); Calcium 9.4 mg/dL (8.4-10.2); Carbon Dioxide 26 mmol/L (22-29); Chloride 99 mmol/L (96-108); Creatinine Clr Calc Pharmacy 133.2; Estimated Glomerular Filt Rate > 60; Glucose Random 122 mg/dL (60-115); Magnesium 1.7 mg/dL (1.6-2.6); Sodium 140 mmol/L (135-145)
[2022-06-30] MEDS: FLUoxetine HCl 20 MG CAPSULE 40 MG PO (07:48)
[2022-06-30] MEDS: busPIRone HCl 10 MG TABLET 30 MG PO ×2 (07:49→21:47)
[2022-06-30] MEDS: amLODIPine Besylate 5 MG TABLET PO (07:49)
[2022-06-30] MEDS: PHENobarbitaL 15 MG TABLET 45 MG PO ×2 (07:49→21:47)
[2022-06-30] MEDS: ondansetron HCL 4 MG/2 ML VIAL IVPUSH (07:50)
[2022-06-30] MEDS: hydrOXYzine HCL 25 MG TABLET PO (07:50)
[2022-06-30] MEDS: Thiamine HCL 100 MG TABLET PO (07:50)
[2022-06-30] MEDS: Magnesium Oxide 400 MG TABLET PO ×2 (07:50→17:12)
[2022-06-30] MEDS: 0.9 % Sodium Chloride Flush 3 ML SYRINGE IVFLUSH ×3 (07:53→21:48)
[2022-06-30] MEDS: Potassium Chloride/H20 10 MEQ/100 ML PIGGYBACK 100 MEQ IV ×4 (07:59→11:49)
[2022-06-30] MEDS: Potassium Chloride ER 20 MEQ TAB.ER.PRT 40 MEQ PO (07:59)
[2022-06-30 08:00] VITALS: BP 125/73; PULSE 62; RESP 18; TEMP 37.2; O2SAT 95
[2022-06-30] MEDS: Multivitamin TABLET 1 TAB PO (09:43)
--- NOTE | 2022-06-30 09:57 | HO.PM.IMPN ---
Subjective Subjective Date of Service: 06/30/22 Interval History: Got 3 extra IM doses of phenobarbital yesterday for breakthrough withdrawal Feels much better today No N/V Review of Systems Review of Systems: Yes all other systems are reviewed and are negative Physical Exam Vital Signs: Vital Signs: Last Vital Signs Temp 99.0 F 06/30/22 08:00 Pulse 62 06/30/22 08:00 Resp 18 06/30/22 08:00 BP 125/73 06/30/22 08:00 Pulse Ox 95 06/30/22 08:00 O2 Del Method 06/30/22 08:00 BMI result Body Mass Index 29.0 Gen: in no acute distress HEENT: sclera anicteric, moist mucus membranes Neck: supple Lungs: clear to auscultation bilaterally Heart: regular rate and rhythm, no murmurs Abd: soft, non-tender, non-distended Ext: no edema Skin: warm/well-perfused Neuro: alert and oriented x3, no focal findings Psych: appropriate affect Objective Data Active Medications Acetaminophen (Acetaminophen 325 Mg Tablet) 650 mg PO Q6H PRN PRN Reason: Pain, Mild (Pain Scale 1-3) Last Admin: 06/28/22 22:26 Dose: 650 mg Documented By: LYNDSEY Amlodipine Besylate (Amlodipine Besylate 5 Mg Tablet) 5 mg PO DAILY [facility]; Protocol Last Admin: 06/30/22 07:49 Dose: 5 mg Documented By: MIKE Buspirone HCl (Buspirone Hcl 10 Mg Tablet) 30 mg PO BID [facility] Last Admin: 06/30/22 07:49 Dose: 30 mg Documented By: MIKE Enoxaparin Sodium (Enoxaparin Sodium 40 Mg/0.4 Ml Syringe) 40 mg SUBCUT Q24H [facility] Last Admin: 06/29/22 17:35 Dose: 40 mg Documented By: MIKE Fluoxetine HCl (Fluoxetine Hcl 20 Mg Capsule) 40 mg PO DAILY [facility] Last Admin: 06/30/22 07:48 Dose: 40 mg Documented By: MIKE Hydroxyzine HCl (Hydroxyzine Hcl 25 Mg Tablet) 25 mg PO TID PRN PRN Reason: anxiety Last Admin: 06/30/22 07:50 Dose: 25 mg Documented By: MIKE Potassium Chloride (Potassium Chloride/H20) 10 meq in 100 mls @ 100 mls/hr IV Q1H [facility] Stop: 06/30/22 11:59 Last Admin: 06/30/22 08:56 Dose: 100 mls/hr Documented By: MIKE Magnesium Oxide (Magnesium Oxide 400 Mg Tablet) 400 mg PO BIDPC [facility] Last Admin: 06/30/22 07:50 Dose: 400 mg Documented By: MIKE Multivitamins/Vitamin C (Multivitamin Tablet) 1 tab PO DAILY [facility] Last Admin: 06/30/22 09:43 Dose: 1 tab Documented By: MIKE Omeprazole (Omeprazole 40 Mg Capsule.Dr) 40 mg PO DAILY@0630 [facility] Last Admin: 06/30/22 06:04 Dose: 40 mg Documented By: JAY Ondansetron HCl (Ondansetron Hcl 4 Mg/2 Ml Vial) 4 mg IVPUSH Q8H PRN PRN Reason: Nausea and Vomiting Last Admin: 06/30/22 07:50 Dose: 4 mg Documented By: MIKE Pharmacy Consult (Consult Rx Etoh Phenob Po Only) 1 each MISCELLANE ONCE PRN; Protocol PRN Reason: Consult order Phenobarbital (Phenobarbital 15 Mg Tablet) 45 mg PO BID [facility]; Protocol Stop: 06/30/22 21:01 Last Admin: 06/30/22 07:49 Dose: 45 mg Documented By: MIKE Phenobarbital (Phenobarbital 30 Mg Tablet) 30 mg PO BID [facility]; Protocol Stop: 07/02/22 21:01 Phenobarbital (Phenobarbital 30 Mg Tablet) 30 mg PO DAILY [facility]; Protocol Stop: 07/04/22 09:01 Sodium Chloride (0.9 % Sodium Chloride Flush 3 Ml Syringe) 3 ml IVFLUSH QSHIFT [facility] Last Admin: 06/30/22 07:53 Dose: 3 ml Documented By: MIKE Thiamine HCl (Thiamine Hcl 100 Mg Tablet) 100 mg PO DAILY [facility] Last Admin: 06/30/22 07:50 Dose: 100 mg Documented By: MIKE Trazodone HCl (Trazodone Hcl 50 Mg Tablet) 50 mg PO BEDTIME [facility] Last Admin: 06/29/22 20:06 Dose: 50 mg Documented By: JAY Labs 06/28/22 16:13 06/30/22 05:35 Labs: Laboratory Results - last 24 hr 06/30/22 05:35 Anion Gap 18 Estim Creat Clear Calc 133.2 Estimated GFR > 60 Random Glucose 122 H Calcium 9.4 D Magnesium 1.7 Assessment and Plan (1) Alcohol withdrawal syndrome: Status: Acute (2) Alcoholic ketoacidosis: Status: Acute Plan hospital d#3 36yo M with AUD, frequent admissions for withdrawal, presenting with impending withdrawal as well as ketoacidosis. # high-risk alcohol withdrawal - continue phenobarbital taper - thiamine + vitamin supplementation # EtOH ketoacidosis - resolved, d/c IV fluids # hypoK - replete IV+PO, recheck in AM # hypoMg - repleted # AUD - Addiction Medicine + CARE Team consultations pending # HTN - amlodipine # GERD - PPI # anxiety - buspirone # VTE prophylaxis: LMWH # dispo: TBD In my clinical judgment, the patient requires continued inpatient hospitalization for the following reasons: EtOH withdrawal supervision, electrolyte deficiencies Time Spent With Patient Time: Total time managing care of this patient today __25__ minutes. Quality Stroke Does the patient have a stroke diagnosis?: No VTE Prior VTE?: No VTE Risk Level:: Medical - moderate - high VTE Device Contraindication: N/A - Device Ordered VTE Drug Contraindication: N/A - Med Ordered
--- NOTE | 2022-06-30 13:45 | MHC.CM.PN ---
PER MD ROUNDS, PT NOT YET MEDICALLY CLEARED DUE TO ONGOING ETOH W/D AND ELECTROLYTE IMBALANCES DCP REMAINS HOME WITH RECOVERY TEAM REFERRALS
[2022-06-30 16:00] VITALS: BP 130/86; PULSE 73; RESP 16; TEMP 37.2; O2SAT 98
--- NOTE | 2022-06-30 17:07 | HO.ADDICTCON ---
History of Present Illness Date of Service: 06/30/2022 Chief Complaint: Alcoholic ketoacidosis/Withdrawal Reason for Consult: AUD Sources of Information: patient interviewed and chart reviewed HPI Narrative: Patient is a 36 year old male currently medically admitted with alcohol withdrawal. 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 Patient seen in room 359 with recovery support RN. Patient, awake, alert, pleasant and engaged in interview. He reports that he was incarcerated for the last 150 days secondary to a DUI charge. He reports he was released on June 23 and started drinking once he was home. Patient is expressing that he does not wish to stop drinking, he would like to drink in moderation and he would like to enjoy a few beers when the weather gets nice . Limited insight to consequences of continued alcohol use. Expressed frustration that his family has control over if I go to treatment or if I still have a job . Discussed previous periods in recovery and patient's goals for recovery looking ahead. Patient expressing ambivalence about treatment and minimizing his recent alcohol use, I wasn't that bad, I don't need to be hooked up to all of these IV's and stuff . Patient reports he will think about medications, but he knows he wants a medication that he can drink with. At time of interview patient appeared comfortable, no tremor or restlessness noted. Past Psychiatric History[place] [facility] [place]: No current providers Trials: Prozac Review of Systems Constitutional: Reports as per HPI Diagnostics Vital Signs (24Hr): Vital Signs - 24 hr 06/29/22 19:11 06/30/22 03:43 06/30/22 08:00 Temperature 98.4 F 97.9 F 99.0 F Pulse Rate 86 55 62 Respiratory Rate 16 20 18 Blood Pressure 151/72 H 136/78 125/73 Pulse Oximetry 96 96 95 Oxygen Delivery Method Room Air Room Air Room Air 06/30/22 16:00 Temperature 98.9 F Pulse Rate 73 Respiratory Rate 16 Blood Pressure 130/86 Pulse Oximetry 98 Oxygen Delivery Method Room Air BMI result Body Mass Index 29.0 Labs 06/28/22 16:13 06/30/22 05:35 Labs: Laboratory Results - last 48 hr 06/28/22 06/28/22 06/28/22 16:13 16:13 16:13 WBC 8.9 RBC 5.77 Hgb 16.9 Hct 47.7 MCV 82.7 MCH 29.3 MCHC 35.4 RDW 12.1 Plt Count 268 D MPV 9.6 Immature Gran % (Auto) 0.3 Neut % (Auto) 63.5 Lymph % (Auto) 24.2 [place] % (Auto) 11.1 H Eos % (Auto) 0.0 Baso % (Auto) 0.9 Lymph # (Auto) 2.2 [place] # (Auto) 1.0 Eos # (Auto) 0.0 Baso # (Auto) 0.1 Abs Immat Gran (auto) 0.03 Absolute Neuts (auto) 5.7 Absolute Nucleated RBC 0.000 Nucleated RBC % (auto) 0.0 Sodium Potassium Chloride Carbon Dioxide Anion Gap BUN Creatinine Estim Creat Clear Calc Estimated GFR Random Glucose Calcium Magnesium 2.2 Urine Color Urine Appearance Urine pH Ur Specific [place] Urine Protein Urine Glucose (UA) Urine Ketones Urine Blood Urine Nitrite Ur Leukocyte Esterase Urine RBC Urine WBC Ur Squamous Epith Cells Urine Bacteria Hyaline Casts Urine Opiates Screen Urine Fentanyl Screen Ur Barbiturates Screen Ur Phencyclidine Scrn Ur Amphetamines Screen U Benzodiazepines Scrn Urine Cocaine Screen U Marijuana (THC) Screen Influenza Type A (PCR) NEGATIVE Influenza Type B (PCR) NEGATIVE RSV RNA Qual (PCR) NEGATIVE SARS-CoV-2 RNA (RT-PCR) NEGATIVE 06/28/22 06/28/22 06/29/22 18:52 18:52 05:28 WBC RBC Hgb Hct MCV MCH MCHC RDW Plt Count MPV Immature Gran % (Auto) Neut % (Auto) Lymph % (Auto) [place] % (Auto) Eos % (Auto) Baso % (Auto) Lymph # (Auto) [place] # (Auto) Eos # (Auto) Baso # (Auto) Abs Immat Gran (auto) Absolute Neuts (auto) Absolute Nucleated RBC Nucleated RBC % (auto) Sodium 136 Potassium 3.2 L Chloride 99 Carbon Dioxide 22 Anion Gap 18 BUN 9 Creatinine 0.79 Estim Creat Clear Calc 138.3 Estimated GFR > 60 Random Glucose 121 H Calcium 8.7 D Magnesium 1.5 L Urine Color Yellow Urine Appearance Clear Urine pH 6.0 Ur Specific [place] 1.015 Urine Protein 100 (2+) H Urine Glucose (UA) Negative Urine Ketones 15 Urine Blood Negative Urine Nitrite Negative Ur Leukocyte Esterase Negative Urine RBC 0-2 Urine WBC 0-5 Ur Squamous Epith Cells 0-2 Urine Bacteria None Seen Hyaline Casts 3-5 Urine Opiates Screen Not Detected Urine Fentanyl Screen Not Detected Ur Barbiturates Screen Not Detected Ur Phencyclidine Scrn Not Detected Ur Amphetamines Screen Not Detected U Benzodiazepines Scrn Not Detected Urine Cocaine Screen Not Detected U Marijuana (THC) Screen Not Detected Influenza Type A (PCR) Influenza Type B (PCR) RSV RNA Qual (PCR) SARS-CoV-2 RNA (RT-PCR) 06/30/22 05:35 WBC RBC Hgb Hct MCV MCH MCHC RDW Plt Count MPV Immature Gran % (Auto) Neut % (Auto) Lymph % (Auto) [place] % (Auto) Eos % (Auto) Baso % (Auto) Lymph # (Auto) [place] # (Auto) Eos # (Auto) Baso # (Auto) Abs Immat Gran (auto) Absolute Neuts (auto) Absolute Nucleated RBC Nucleated RBC % (auto) Sodium 140 Potassium 3.0 L Chloride 99 Carbon Dioxide 26 Anion Gap 18 BUN 10 Creatinine 0.82 Estim Creat Clear Calc 133.2 Estimated GFR > 60 Random Glucose 122 H Calcium 9.4 D Magnesium 1.7 Urine Color Urine Appearance Urine pH Ur Specific [place] Urine Protein Urine Glucose (UA) Urine Ketones Urine Blood Urine Nitrite Ur Leukocyte Esterase Urine RBC Urine WBC Ur Squamous Epith Cells Urine Bacteria Hyaline Casts Urine Opiates Screen Urine Fentanyl Screen Ur Barbiturates Screen Ur Phencyclidine Scrn Ur Amphetamines Screen U Benzodiazepines Scrn Urine Cocaine Screen U Marijuana (THC) Screen Influenza Type A (PCR) Influenza Type B (PCR) RSV RNA Qual (PCR) SARS-CoV-2 RNA (RT-PCR) Mental Status Exam Mental Status Exam Patient Appearance: Appropriate (hospital attire ) Level of Consciousness: Awake and Alert Patient Behavior: Talkative Mood Description: Appropriate and Anxious Speech Pattern: Pressured Thought Process: Linear Judgement: Poor Medications Medications Current Medications Acetaminophen (Acetaminophen 325 Mg Tablet) 650 mg PO Q6H PRN PRN Reason: Pain, Mild (Pain Scale 1-3) Last Admin: 06/28/22 22:26 Dose: 650 mg Amlodipine Besylate (Amlodipine Besylate 5 Mg Tablet) 5 mg PO DAILY [facility]; Protocol Last Admin: 06/30/22 07:49 Dose: 5 mg Buspirone HCl (Buspirone Hcl 10 Mg Tablet) 30 mg PO BID [facility] Last Admin: 06/30/22 07:49 Dose: 30 mg Enoxaparin Sodium (Enoxaparin Sodium 40 Mg/0.4 Ml Syringe) 40 mg SUBCUT Q24H [facility] Last Admin: 06/29/22 17:35 Dose: 40 mg Fluoxetine HCl (Fluoxetine Hcl 20 Mg Capsule) 40 mg PO DAILY [facility] Last Admin: 06/30/22 07:48 Dose: 40 mg Hydroxyzine HCl (Hydroxyzine Hcl 25 Mg Tablet) 25 mg PO TID PRN PRN Reason: anxiety Last Admin: 06/30/22 07:50 Dose: 25 mg Magnesium [facility]ide ([facility] 400 Mg [facility]t) [facility] Last Admin: 06/30/22 07:50 Dose: 400 mg Multivitamins/Vitamin C (Multivitamin Tablet) 1 tab PO DAILY [facility] Last Admin: 06/30/22 09:43 Dose: 1 tab Omeprazole (Omeprazole 40 Mg Capsule.Dr) 40 mg PO DAILY@0630 [facility] Last Admin: 06/30/22 06:04 Dose: 40 mg Ondansetron HCl (Ondansetron Hcl 4 Mg/2 Ml Vial) 4 mg IVPUSH Q8H PRN PRN Reason: Nausea and Vomiting Last Admin: 06/30/22 07:50 Dose: 4 mg Pharmacy Consult (Consult Rx Etoh Phenob Po Only) 1 each MISCELLANE ONCE PRN; Protocol PRN Reason: Consult order Phenobarbital (Phenobarbital 15 Mg Tablet) 45 mg PO BID [facility]; Protocol Stop: 06/30/22 21:01 Last Admin: 06/30/22 07:49 Dose: 45 mg Phenobarbital (Phenobarbital 30 Mg Tablet) 30 mg PO BID [facility]; Protocol Stop: 07/02/22 21:01 Phenobarbital (Phenobarbital 30 Mg Tablet) 30 mg PO DAILY [facility]; Protocol Stop: 07/04/22 09:01 Sodium Chloride (0.9 % Sodium Chloride Flush 3 Ml Syringe) 3 ml IVFLUSH QSHIFT [facility] Last Admin: 06/30/22 07:53 Dose: 3 ml Thiamine HCl (Thiamine Hcl 100 Mg Tablet) 100 mg PO DAILY [facility] Last Admin: 06/30/22 07:50 Dose: 100 mg Trazodone HCl (Trazodone Hcl 50 Mg Tablet) 50 mg PO BEDTIME [facility] Last Admin: 06/29/22 20:06 Dose: 50 mg Allergies Allergies Allergy/AdvReac Type Severity Reaction Status Date / Time No Known Allergies Allergy Unknown UNKNOWN Verified 09/19/21 10:42 [NO KNOWN ALLERGIES] Assessment & Plan Assessment & Plan (1) Alcohol use disorder, severe, dependence: Status: Acute Code(s): F10.20 - Alcohol dependence, uncomplicated Assessment and Plan: will provider literature regarding medications if patient open to it, may restart Naltrexone as a method to reduce amount of alcohol consumed director 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 PMFSH Past Medical History Medical History Alcohol use disorder, severe, in early remission Anxiety and depression ETOH abuse Hypertension Psychiatric disturbance Social History Social History Household Members: None Housing: House Do you presently have visiting nurse or other home services: No Alcohol intake: current Alcohol intake frequency: 3 or more drinks per day Alcohol type: hard liquor Patient Tobacco Use Status: Never used Tobacco e-Cigarette/Vaping Use: Never Used Second Hand Smoke Exposure: No service: No Sexual orientation: Straight/Heterosexual
[2022-06-30] MEDS: Enoxaparin Sodium 40 MG/0.4 ML SYRINGE SUBCUT (18:03)
[2022-06-30 19:48] VITALS: BP 137/78; PULSE 98; RESP 16; TEMP 36.4; O2SAT 98
[2022-06-30] MEDS: traZODone HCL 50 MG TABLET PO (21:47)
[2022-07-01 03:44] VITALS: BP 140/74; PULSE 63; RESP 18; TEMP 36.2; O2SAT 95
[2022-07-01] MEDS: Omeprazole 40 MG CAPSULE.DR PO (05:25)
[2022-07-01 06:39] LABS: Anion Gap 17 (12-20); Blood Urea Nitrogen 14 mg/dL (9-16); Calcium 9.6 mg/dL (8.4-10.2); Carbon Dioxide 23 mmol/L (22-29); Chloride 101 mmol/L (96-108); Creatinine Clr Calc Pharmacy 138.3; Estimated Glomerular Filt Rate > 60; Glucose Random 100 mg/dL (60-115); Magnesium 1.9 mg/dL (1.6-2.6); Potassium 3.6 mmol/L (3.3-5.1); Sodium 137 mmol/L (135-145)
[2022-07-01 08:00] VITALS: BP 138/90; PULSE 75; RESP 18; TEMP 36.6
[2022-07-01] MEDS: amLODIPine Besylate 5 MG TABLET PO (08:29)
[2022-07-01] MEDS: PHENobarbitaL 30 MG TABLET PO (08:29)
[2022-07-01] MEDS: Thiamine HCL 100 MG TABLET PO (08:29)
[2022-07-01] MEDS: FLUoxetine HCl 20 MG CAPSULE 40 MG PO (08:30)
[2022-07-01] MEDS: busPIRone HCl 10 MG TABLET 30 MG PO (08:30)
[2022-07-01] MEDS: 0.9 % Sodium Chloride Flush 3 ML SYRINGE IVFLUSH (08:31)
[2022-07-01] MEDS: Magnesium Oxide 400 MG TABLET PO (08:31)
[2022-07-01] MEDS: Multivitamin TABLET 1 TAB PO (08:34)
--- NOTE | 2022-07-01 11:06 | P.DS_ITS ---
DS: Providers Provider Date of Service: 07/01/22 Date of admission: 06/28/22 18:15 Primary care physician: Unknown Physician Consults: 06/28/22 18:04 Addiction Medicine Routine Consulting Provider: Addiction Covering Reason for consultation: aud Consult to Care Team Routine Comment: Reason for consultation: detox req DS: Diagnosis Discharge Diagnosis (1) Alcohol use disorder, severe, dependence: Status: Acute DS: Summary Hospital Course Hospital Course: Date of Service: 06/28/22 Chief Complaint: intoxication 36yo M with AUD recently released from custodial after property distruction in [facility] efra d has been drinking 1L vodka/day for the past 4 days.? Frequent admissions for EtOH withdrawal in past.? Police brought him in and he requests detoxification.? He was found to be hypertensive and tachycardic with impending alcohol withdrawal.? He has been vomiting and labs showed an anion gap of 26.? He was given IV fluids and started on phenobarbital taper along with thiamine and IV fluids. Hospital course 36yo M with alcohol use disorder, frequent admissions for withdrawal, presented with impending withdrawal as well as alcoholic ketoacidosis, patient admitted to medical floor was treated with phenobarb protocol, thiamine folic acid and IV fluids, patient required extra dosages of phenobarb due to severe alcohol withdrawal symptoms, patient was also noted to have hypokalemia and hypo m agnesemia that were aggressively repleted repeat labs are within normal range patient was seen by care team and outpatient referrals given patient is agreeable of to follow-up with care team and be placed on Vivitrol that worked for him in the past. In regard to hypertension he has been continued on amlodipine with good blood pressure control. For chronic anxiety recommend to continue buspirone. GERD cont. prilosec Time Spent with Patient Time attestation: Total time managing care of this patient today ____ minutes. Discharge coordination time: Greater than 30 minutes Quality: Safe Use of Opioids Does Pt have an Active Cancer Diagnosis on the Problem List?: No Quality: Stroke Does the patient have a stroke diagnosis?: No Physical Exam Vital Signs: Vital Signs: Last Vital Signs Temp 97.9 F 07/01/22 08:00 Pulse 75 07/01/22 08:00 Resp 18 07/01/22 08:00 BP 138/90 H 07/01/22 08:00 Pulse Ox 95 07/01/22 03:44 O2 Del Method 07/01/22 08:00 BMI result Body Mass Index 29.0 Const: Other: General: in no acute distress HEENT: sclera anicteric, moist mucus membranes Neck: supple Lungs: clear to auscultation bilaterally Heart: regular rate and rhythm, no murmurs Abd: soft, non-tender, non-distended Ext: no edema Skin: warm/well-perfused Neuro: alert and oriented x3, no focal findings,no trmors Psych: appropriate affect DS: Data Data Completed and Pending Labs on day of discharge: Laboratory Results - last 24 hr 07/01/22 05:27 Sodium 137 Potassium 3.6 Chloride 101 Carbon Dioxide 23 Anion Gap 17 BUN 14 Creatinine 0.79 Estim Creat Clear Calc 138.3 Estimated GFR > 60 Random Glucose 100 Calcium 9.6 Magnesium 1.9 Discharge Plan Discharge Anticipated Discharge Date/Time: 07/01/22 11:00 Patient Disposition: Home, Self-Care Discharge Diagnosis: Alcohol ketoacidosis Hypokalemia Hypo magnesemia Referrals: Physician,Unknown J [Primary Care Provider] - 1 Week Discharge Medications: Continued fluoxetine 40 mg capsule 1 cap PO DAILY trazodone 50 mg tablet 1 tab PO BEDTIME amlodipine 5 mg tablet 1 tab PO DAILY omeprazole 20 mg capsule,delayed release(DR/EC) 1 cap PO DAILY buspirone 30 mg tablet 1 tab PO BID Discharge Orders: Discharge Order (Routine); Ordered 07/01/22 Ordered By: Angus Medina Diet: Advance to usual diet Activity on Discharge: As tolerated Stand Alone Forms: Patient Portal Discharge page Care Plan Goals: His strongly recommend to abstain from alcohol outpatient follow-up with outpatient referrals Health Concerns: Continue all home medications as before Plan of Treatment: Outpatient follow-up with PCP Assessment: As above
--- NOTE | 2022-07-01 12:13 | MHC.RECOVRN ---
Met with pt prior to dc and provided recovery resources, including [facility] and [facility] information. Pt denied questions or concerns. Also provided pt with t/w contact information if needed.
--- NOTE | 2022-07-01 12:41 | MHC.CM.PN ---
PT MEDICALLY CLEARED FOR D/C HOME, PT HAS ARRANGED HIS OWN TRANSPORT
== END 2022-07-01 12:02 | disposition home or self-care (01) | DRG 425 ==
LOC: HO.ED 18:03 → HO.EDOVER 18:23 → HO.S3 20:28
PROVIDERS: Nurse Practitioner Family; Admitting Provider Family Medicine; Emergency Provider Internal Medicine; Visit Provider Hospitalist
DX: E87.6 Hypokalemia (principal); E87.29 Other acidosis; E83.42 Hypomagnesemia; F10.229 Alcohol dependence with intoxication, unspecified; Y90.8 Blood alcohol level of 240 mg/100 ml or more; F10.239 Alcohol dependence with withdrawal, unspecified; F41.9 Anxiety disorder, unspecified; I10 Essential (primary) hypertension; K21.9 Gastro-esophageal reflux disease without esophagitis; Z20.822 Contact with and (suspected) exposure to COVID-19; Z79.899 Other long term (current) drug therapy
CPT/HCPCS: 0241U; 36415; 80048; 80053; 80307; 81001; 81003; 82077; 83735; 84484; 85025; 93005; 99285; J1650; J2060; J2405; J2560; J3411

== ENCOUNTER 2022-07-07 14:19 | Inpatient (IN) | payer MEDICAID, SELFPAY ==
[2022-07-07 14:29] VITALS: BP 151/109; PULSE 130
[2022-07-07 14:43] VITALS: BP 155/114; PULSE 139; RESP 18; TEMP 36.2; O2SAT 96; BMI 28.8
--- NOTE | 2022-07-07 15:13 | ED.ALCOHOL ---
HPI - Alcohol General Chief Complaint: ETOH/Substance Use Stated Complaint: HEAVY ETOH INTOX PER EMS Time Seen by Provider: 07/07/22 14:58 Source: patient and old records reviewed History of Present Illness HPI narrative: Patient with a history of severe alcohol use disorder presents stating he would like detox. He states he drinks 1 L of vodka daily. His last drink was 11:00. Despite that he states he feels very shaky as if he is withdrawing. He states he was hospitalized within the last 2 weeks, but relapsed after going home. He denies recent illness. He denies abdominal pain but states he is nauseous. No recent traumas Related Data Home Medications Medication Instructions Recorded Confirmed buspirone 30 mg tablet 1 tab PO BID 12/03/21 06/29/22 amlodipine 5 mg tablet 1 tab PO DAILY 06/29/22 06/29/22 fluoxetine 40 mg capsule 1 cap PO DAILY 06/29/22 06/29/22 omeprazole 20 mg capsule,delayed 1 cap PO DAILY 06/29/22 06/29/22 release trazodone 50 mg tablet 1 tab PO BEDTIME 06/29/22 06/29/22 Allergies Allergy/AdvReac Type Severity Reaction Status Date / Time No Known Allergies Allergy Unknown UNKNOWN Verified 09/19/21 10:42 [NO KNOWN ALLERGIES] Review of Systems Constitutional: Comments: No fevers. Positive shakes Cardiovascular: Comments: No chest pain Respiratory: Comments: No shortness of breath Gastrointestinal: Comments: Nausea without vomiting or abdominal pain Musculoskeletal: Comments: No injuries Integumentary/Breasts: Comments: No skin changes Neurologic: Comments: Tremors. PMFSH Past Medical History Medical History Alcohol use disorder, severe, in early remission Anxiety and depression ETOH abuse Hypertension Psychiatric disturbance Social History Social History Household Members: None Housing: House Do you presently have visiting nurse or other home services: No Alcohol intake: current Alcohol intake frequency: 3 or more drinks per day Alcohol type: hard liquor Patient Tobacco Use Status: Never used Tobacco e-Cigarette/Vaping Use: Never Used Second Hand Smoke Exposure: No Use of substances other than those prescribed or required for medical reasons: Unknown Advance Directives: Yes Advance Directives on File: Yes Advance Directives Date on File: 01/08/21 service: No Sexual orientation: Straight/Heterosexual Physical Exam ED Vital Signs: Vital Signs - 24 hr 07/07/22 14:43 07/07/22 15:54 Temperature 97.2 F Pulse Rate 139 H 131 H Respiratory Rate 18 18 Blood Pressure 155/114 H 135/98 H Pulse Oximetry 96 97 Oxygen Delivery Method Room Air Room Air BMI result Body Mass Index 28.8 Const Other: Patient with ataxic gait. He is tremulous. Appears anxious HENMT Other: Normocephalic atraumatic. ETOH type halitosis Resp Other: Clear and equal bilaterally without wheezes rales or rhonchi Cardio Other: Tachycardic to 140 beats per minute. No murmurs, rubs or gallops GI Other: Soft nontender nondistended Skin Other: Warm pink and dry Neuro Other: Patient is nonfocal. Positive resting tremor Extrem Other: No obvious trauma Medical Decision Making Medical Decision Making MDM Narrative: Patient with longstanding alcohol use disorder at risk for significant abstinence syndrome Will treated immediately with IV phenobarbital. Also IV normal saline, IV thiamine, IV folate. IV Zofran. He has required inpatient hospitalization twice in the past secondary to withdrawal syndrome. For now will monitor heart rate and blood pressure and reassess after treatment 16:47. Patient feeling only slightly better after 1st dose of phenobarbital. Will give him 130 mg dose now. He is still tachycardic and tremulous. Lab work is concerning for lactic acid of 6.1. Chemistries and alcohol level still pending He has no evidence of infection or sepsis. Most consistent with alcoholic lactic acidosis. 17:06. Remainder of chemistries of resulted. Creatinine is normal. He has an anion gap of 21. His glucose is 116. Mild elevation in his transaminases. Will continue treatment with IV fluids. Re-evaluation shows patient is still tremulous and tachycardic will give us a 2nd dose of phenobarb, this time 130 mg and hospitalized for further treatment. Lab Data 07/07/22 15:43 07/07/22 15:42 Labs: Lab Results 07/07/22 07/07/22 07/07/22 Range/Units 15:42 15:42 15:43 WBC 7.0 (4.8-10.8) X10*3/uL RBC 5.10 (4.60-5.80) X10*6/uL Hgb 15.0 (14.0-18.0) g/dl Hct 41.9 L (42.0-52.0) % MCV 82.2 (80.0-98.0) fL MCH 29.4 (27.0-33.0) pg MCHC 35.8 (31.0-36.0) g/dl RDW 12.2 (11.0-16.0) % Plt Count 228 (160-400) X10*3/uL MPV 9.4 (9.4-12.4) fL Immature Gran % (Auto) 0.6 H (0.0-0.4) % Neut % (Auto) 61.3 (45-73) % Lymph % (Auto) 22.9 (20-40) % [place] % (Auto) 14.5 H (2-11) % Eos % (Auto) 0.1 (0-4) % Baso % (Auto) 0.6 (0-2) % Lymph # (Auto) 1.6 (1.2-4.9) X10*3/uL [place] # (Auto) 1.0 (0.1-1.2) X10*3/uL Eos # (Auto) 0.0 (0.0-0.4) X10*3/uL Baso # (Auto) 0.0 (0.0-0.2) X10*3/uL Abs Immat Gran (auto) 0.04 H (0.00-0.03) X10*3/uL Absolute Neuts (auto) 4.3 (2.0-8.3) x10*3/uL Absolute Nucleated RBC 0.000 (0.0-0.012) X10*3/uL Nucleated RBC % (auto) 0.0 (0.0-0.2) /100WBC PT 10.5 (10.0-13.1) SEC INR 0.9 (0.9-1.1) Sodium (135-145) mmol/L Potassium (3.3-5.1) mmol/L Chloride (96-108) mmol/L Carbon Dioxide (22-29) mmol/L Anion Gap (12-20) BUN (9-16) mg/dL Creatinine (0.5-1.4) mg/dL Estim Creat Clear Calc Estimated GFR Random Glucose (60-115) mg/dL Lactic Acid 6.1 H* (0.5-2.0) mmol/L Calcium (8.4-10.2) mg/dL Total Bilirubin (0.0-1.0) mg/dL AST (5-37) U/L ALT (0-40) U/L Alkaline Phosphatase (39-117) U/L Ammonia (13-55) umol/L Total Protein (6.5-8.0) g/dL Albumin (3.5-5.0) g/dL Lipase (8-78) U/L Ethyl Alcohol mg/dL COVID-19 ([facility]) (Negative) COVID-19 Clin Com 07/07/22 07/07/22 07/07/22 Range/Units 15:43 15:43 16:12 WBC (4.8-10.8) X10*3/uL RBC (4.60-5.80) X10*6/uL Hgb (14.0-18.0) g/dl Hct (42.0-52.0) % MCV (80.0-98.0) fL MCH (27.0-33.0) pg MCHC (31.0-36.0) g/dl RDW (11.0-16.0) % Plt Count (160-400) X10*3/uL MPV (9.4-12.4) fL Immature Gran % (Auto) (0.0-0.4) % Neut % (Auto) (45-73) % Lymph % (Auto) (20-40) % [place] % (Auto) (2-11) % Eos % (Auto) (0-4) % Baso % (Auto) (0-2) % Lymph # (Auto) (1.2-4.9) X10*3/uL [place] # (Auto) (0.1-1.2) X10*3/uL Eos # (Auto) (0.0-0.4) X10*3/uL Baso # (Auto) (0.0-0.2) X10*3/uL Abs Immat Gran (auto) (0.00-0.03) X10*3/uL Absolute Neuts (auto) (2.0-8.3) x10*3/uL Absolute Nucleated RBC (0.0-0.012) X10*3/uL Nucleated RBC % (auto) (0.0-0.2) /100WBC PT (10.0-13.1) SEC INR (0.9-1.1) Sodium 138 (135-145) mmol/L Potassium 3.5 (3.3-5.1) mmol/L Chloride 100 (96-108) mmol/L Carbon Dioxide 21 L (22-29) mmol/L Anion Gap 21 H (12-20) BUN 14 (9-16) mg/dL Creatinine 0.74 (0.5-1.4) mg/dL Estim Creat Clear Calc 147.3 Estimated GFR > 60 Random Glucose 116 H (60-115) mg/dL Lactic Acid (0.5-2.0) mmol/L Calcium 8.4 D (8.4-10.2) mg/dL Total Bilirubin 0.4 (0.0-1.0) mg/dL AST 48 H (5-37) U/L ALT 72 H (0-40) U/L Alkaline Phosphatase 63 (39-117) U/L Ammonia 52 (13-55) umol/L Total Protein 7.2 (6.5-8.0) g/dL Albumin 4.5 (3.5-5.0) g/dL Lipase 24 (8-78) U/L Ethyl Alcohol 255 mg/dL COVID-19 ([facility]CI) Negative (Negative) COVID-19 Clin Com See Note Medications Administered Discontinued Medications Generic Name Dose Route Start Last Admin Trade Name Freq PRN Reason Stop Dose Admin Thiamine HCl 100 mg/ Sodium 101 mls @ 202 mls/hr 07/07/22 15:10 07/07/22 16:15 Chloride IV 07/07/22 15:39 Infused ONCE ONE Infusion Sodium Chloride 1,000 mls @ 999 mls/hr 07/07/22 15:15 07/07/22 16:50 Ns IV 07/07/22 16:15 Infused .Q1H1M VANESSA Infusion Ondansetron HCl 4 mg 07/07/22 15:13 07/07/22 15:43 Ondansetron Hcl 4 Mg/2 Ml Vial IVPUSH 07/07/22 15:14 4 mg ONCE ONE Administration Phenobarbital Sodium 65 mg 07/07/22 15:09 07/07/22 15:54 Phenobarbital Sodium 65 Mg/Ml Vial IVPUSH 07/07/22 15:10 Not Given ONCE ONE Phenobarbital Sodium 65 mg 07/07/22 15:30 07/07/22 15:43 Phenobarbital Sodium 130 Mg/Ml Vial IVPUSH 07/07/22 15:31 65 mg ONCE ONE Administration Phenobarbital Sodium 130 mg 07/07/22 16:48 07/07/22 16:59 Phenobarbital Sodium 130 Mg/Ml Vial IVPUSH 07/07/22 16:49 130 mg ONCE ONE Administration Discharge Plan Discharge Clinical Impression: Alcohol use disorder, severe, dependence, Alcoholic ketoacidosis, Alcohol withdrawal syndrome Prescriptions: No Action fluoxetine 40 mg capsule 1 cap PO DAILY trazodone 50 mg tablet 1 tab PO BEDTIME amlodipine 5 mg tablet 1 tab PO DAILY omeprazole 20 mg capsule,delayed release(DR/EC) 1 cap PO DAILY buspirone 30 mg tablet 1 tab PO BID Interventions: Kendall-Suicide Risk Severity Scale Last Done: 07/07/22 16:15
[2022-07-07] MEDS: 0.9 % Sodium Chloride 1,000 ML 999 ML IV ×2 (15:32→17:33)
[2022-07-07] MEDS: Thiamine HCL 100 MG in 0.9 % Sodium Chloride 100 ML 202 MG IV (15:43)
[2022-07-07] MEDS: ondansetron HCL 4 MG/2 ML VIAL IVPUSH ×3 (15:43→22:35)
[2022-07-07] MEDS: PHENobarbitaL sodium 130 MG/ML VIAL 65 MG IVPUSH (15:43)
[2022-07-07 15:49] LABS: MANUAL DIFF FLAG NO
[2022-07-07 15:54] VITALS: BP 135/98; PULSE 131; RESP 18; O2SAT 97
[2022-07-07 15:56] LABS: Basophils Percent Auto 0.6 % (0-2); Eosinophils Percent Auto 0.1 % (0-4); Hematocrit 41.9 % (42.0-52.0); Imm Gran Abs Auto 0.04 X10*3/uL (0.00-0.03); Imm Gran Pct Auto 0.6 % (0.0-0.4); Lymphocytes Absolute Auto 1.6 X10*3/uL (1.2-4.9); Lymphocytes Percent Auto 22.9 % (20-40); Mean Corpuscular HGB Conc 35.8 g/dl (31.0-36.0); Mean Corpuscular Hemoglobin 29.4 pg (27.0-33.0); Mean Corpuscular Volume 82.2 fL (80.0-98.0); Mean Platelet Volume 9.4 fL (9.4-12.4); Monocytes Percent Auto 14.5 % (2-11); Neutrophils Absolute Auto 4.3 x10*3/uL (2.0-8.3); Neutrophils Percent Auto 61.3 % (45-73); Platelet Count 228 X10*3/uL (160-400); Red Cell Distribution Width 12.2 % (11.0-16.0)
[2022-07-07 15:58] LABS: Ammonia 52 umol/L (13-55)
[2022-07-07 16:02] LABS: INTERNATIONAL NORM RATIO 0.9 (0.9-1.1); Prothrombin Time 10.5 SEC (10.0-13.1)
[2022-07-07 16:04] LABS: Lactic Acid 6.1 mmol/L (0.5-2.0)
[2022-07-07 16:05] LABS: COVID-19 Test Negative (Negative); IDNOW Serial# 16C4AD1C
[2022-07-07] MEDS: PHENobarbitaL sodium 130 MG/ML VIAL IVPUSH (16:59)
[2022-07-07 17:02] LABS: Alanine Aminotransferase 72 U/L (0-40); Albumin Level 4.5 g/dL (3.5-5.0); Alkaline Phosphatase 63 U/L (39-117); Anion Gap 21 (12-20); Aspartate Amino Transferase 48 U/L (5-37); Bilirubin Total 0.4 mg/dL (0.0-1.0); Blood Urea Nitrogen 14 mg/dL (9-16); Calcium 8.4 mg/dL (8.4-10.2); Carbon Dioxide 21 mmol/L (22-29); Chloride 100 mmol/L (96-108); Creatinine Clr Calc Pharmacy 147.3; Estimated Glomerular Filt Rate > 60; Ethanol 255 mg/dL; Glucose Random 116 mg/dL (60-115); Lipase 24 U/L (8-78); Potassium 3.5 mmol/L (3.3-5.1); Sodium 138 mmol/L (135-145); Total Protein 7.2 g/dL (6.5-8.0)
--- NOTE | 2022-07-07 17:05 | PC.NURSE ---
recovery operator at the bedside talking with patient.
--- NOTE | 2022-07-07 17:08 | MHC.RECOVSUP ---
? 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 Intervention: o Community resources provided o Harm reduction discussion ? Plan: o Patient to follow up with [facility] after discharge ? Additional information: Met with patient and we talked about recovery and harm reduction.. patient is being admitted but would like recovery after care Css or tss.
[2022-07-07] MEDS: Folic Acid 1 MG in 0.9 % Sodium Chloride 50 ML 100.4 MG IV (17:18)
[2022-07-07 17:21] LABS: TSH reflex Free T4 0.21 uIU/mL (0.32-4.0)
[2022-07-07 17:48] LABS: Reflex Lactate? Lactic Acid Added
[2022-07-07 18:16] LABS: Free T4 (Free Thyroxine) 0.72 ng/dL (0.71-1.85)
--- NOTE | 2022-07-07 18:26 | PM.IMHP ---
History of Present Illness Date of Service: 07/07/22 Chief Complaint: tremors, alcohol withdrawal symotoms 36yo M with Alcohol use desorer (AUD) and recently hospitalization from 06/28 to 07/01 for alcohol withdrawal and presents yet again after having been binging on at least 1 L of Vodka daily for the last 4 days, last drink was just around 6 hours agao. He is seeking detoxification. He is tremoulous, tachycardic, no hallucination, cooperative. He has been given IV fluids and started on phenobarbital protocol along with thiamine and IV fluids. Of interest, he was recently in correction after property distruction in [facility]. Review of Systems Review of Systems: Gen: no fever Resp: no sob, no cough CV: no chest, no CANTU, no leg edema GI: No n/v, no abd pain Neuro: No confusion Pssych: anxious [facility] Medical History Alcohol use disorder, severe, in early remission Anxiety and depression ETOH abuse Hypertension Psychiatric disturbance Social History Household Members: None Housing: House Do you presently have visiting nurse or other home services: No Alcohol intake: current Alcohol intake frequency: 3 or more drinks per day Alcohol type: hard liquor Patient Tobacco Use Status: Never used Tobacco e-Cigarette/Vaping Use: Never Used Second Hand Smoke Exposure: No Use of substances other than those prescribed or required for medical reasons: Unknown Advance Directives: Yes Advance Directives on File: Yes Advance Directives Date on File: 01/08/21 service: No Sexual orientation: Straight/Heterosexual Meds Allergies Allergy/AdvReac Type Severity Reaction Status Date / Time No Known Allergies Allergy Unknown UNKNOWN Verified 09/19/21 10:42 [NO KNOWN ALLERGIES] Home Medications Medication Instructions Recorded Confirmed Last Taken Type buspirone 30 mg tablet 1 tab PO BID 12/03/21 06/29/22 06/27/22 History amlodipine 5 mg tablet 1 tab PO DAILY 06/29/22 06/29/22 06/27/22 History fluoxetine 40 mg capsule 1 cap PO DAILY 06/29/22 06/29/22 06/27/22 History omeprazole 20 mg capsule,delayed 1 cap PO DAILY 01/06/29/22 06/27/22 History release trazodone 50 mg tablet 1 tab PO BEDTIME 06/29/22 06/29/22 06/27/22 History Physical Exam Vital Signs and Narrative: Vital Signs: Last Vital Signs Temp 97.2 F 07/07/22 14:43 Pulse 131 H 07/07/22 15:54 Resp 18 07/07/22 15:54 BP 135/98 H 07/07/22 15:54 Pulse Ox 97 07/07/22 15:54 O2 Del Method 07/07/22 15:54 BMI result Body Mass Index 28.8 Const: Other: Gen: flushed, somewhat tremulous, yet cooperative HEENT: sclera anicteric, moist mucus membranes Neck: supple Lungs: clear to auscultation bilaterally Heart: tachycardic, no murmurs Abd: soft, non-tender, non-distended Ext: no edema Skin: warm/well-perfused Neuro: alert and oriented x3, no focal findings Psych: appropriate affect, anxious Results Labs 07/07/22 15:43 07/07/22 16:12 Labs: Laboratory Results - last 24 hr 07/07/22 07/07/22 07/07/22 15:42 15:42 15:43 MCV 82.2 MCH 29.4 MCHC 35.8 RDW 12.2 Plt Count 228 MPV 9.4 Immature Gran % (Auto) 0.6 H Neut % (Auto) 61.3 Lymph % (Auto) 22.9 [place] % (Auto) 14.5 H Eos % (Auto) 0.1 Baso % (Auto) 0.6 Lymph # (Auto) 1.6 [place] # (Auto) 1.0 Eos # (Auto) 0.0 Baso # (Auto) 0.0 Abs Immat Gran (auto) 0.04 H Absolute Neuts (auto) 4.3 Absolute Nucleated RBC 0.000 Nucleated RBC % (auto) 0.0 PT 10.5 INR 0.9 Anion Gap Estim Creat Clear Calc Estimated GFR Random Glucose Lactic Acid 6.1 H* Calcium Total Bilirubin AST ALT Alkaline Phosphatase Ammonia Total Protein Albumin Lipase TSH Free T4 Ethyl Alcohol COVID-19 ([facility]) COVID-19 Clin Com 07/07/22 07/07/22 07/07/22 15:43 15:43 16:12 MCV MCH MCHC RDW Plt Count MPV Immature Gran % (Auto) Neut % (Auto) Lymph % (Auto) [place] % (Auto) Eos % (Auto) Baso % (Auto) Lymph # (Auto) [place] # (Auto) Eos # (Auto) Baso # (Auto) Abs Immat Gran (auto) Absolute Neuts (auto) Absolute Nucleated RBC Nucleated RBC % (auto) PT INR Anion Gap 21 H Estim Creat Clear Calc 147.3 Estimated GFR > 60 Random Glucose 116 H Lactic Acid Calcium 8.4 D Total Bilirubin 0.4 AST 48 H ALT 72 H Alkaline Phosphatase 63 Ammonia 52 Total Protein 7.2 Albumin 4.5 Lipase 24 TSH 0.21 L Free T4 0.72 Ethyl Alcohol 255 COVID-19 ([facility]) Negative COVID-19 Clin Com See Note Assessment and Plan (1) Alcohol withdrawal syndrome: Status: Acute (2) Alcoholic ketoacidosis: Status: Acute (3) Alcohol use disorder, severe, dependence: Status: Acute (4) Recurrent major depression-severe: Status: Acute Plan 36yo M with AUD, frequent admissions for withdrawal, presenting with alcohol withdrawal and alcoholic ketoacidosis # Alcohol withdrawal syndrome - admit to M/S, give phenobarbital taper # EtOH ketoacidosis, including acute lactic acidosis - IV fluids hydration, recheck electrolytes in AM # AUD - CARE Team consultations # HTN - amlodipine # GERD - PPI # anxiety - buspirone #Tachycardia--related to alcohol withdrawal # VTE prophylaxis: LMWH # code status: full I anticipate that the patient will stay at least 2 midnights as an inpatient in the hospital due to active alcohol withdrawal.? It is neither reasonable nor safe to care for them in a less acute setting Time Spent With Patient Time: Total time managing care of this patient today ____ minutes. Quality Stroke Does the patient have a stroke diagnosis?: No VTE Prior VTE?: No VTE Risk Level:: Medical - moderate - high VTE Device Contraindication: Treatment Not Indicated VTE Drug Contraindication: N/A - Med Ordered
[2022-07-07 19:00] LABS: ~Lactic Acid-LAB USE ONLY 4.4 mmol/L (0.5-2.0)
[2022-07-07 19:21] VITALS: BP 189/99; PULSE 131; RESP 18
[2022-07-07] MEDS: Dextrose 5 % and 0.45 % NaCl 1,000 ML 150 ML IVCONT (19:33)
--- NOTE | 2022-07-07 19:45 | PHA.MEDREC ---
MED REC COMPLETE, PATIENT HAS NOT BEEN REGULARLY TAKING HIS MEDS SINCE DISCHARGE A COUPLE WEEKS AGO Pharmacy Consult ? Medication Reconciliation Pharmacy has completed the medication reconciliation.
[2022-07-07] MEDS: PHENobarbitaL sodium 130 MG/ML IM ONCE 273 MG IM (20:15)
[2022-07-07] MEDS: Enoxaparin Sodium 40 MG/0.4 ML SYRINGE SUBCUT (20:16)
--- NOTE | 2022-07-07 20:40 | PC.NURSE ---
Assumed care of pt. at 1900. Pt. reporting high anxiety at this time, restless, and tremulous, tachycardic. Pt. actively w/d'ing from alcohol. Pt. had received doses of phenobarb, but wasn't on a taper. Contacted hospitalist and pt. placed on phenobarb taper. Administered first dose. Pt. IV is loose, RN currently fixing this issue as tape hasn't been sticking d/t perspiration. Pt. is going up to [facility], bed 460. CAlled to give report, however floor RN is unavailable. they will call back venita.
[2022-07-07 20:45] LABS: Reflex Lactate? 2 Y
[2022-07-07 22:20] LABS: ~Lactic Acid-LAB USE ONLY 3.9 mmol/L (0.5-2.0)
[2022-07-07] MEDS: PHENobarbitaL sodium 130 MG/ML VIAL IM Q3Hx2 205 MG IM (22:34)
[2022-07-07] MEDS: Melatonin 3 MG TABLET 6 MG PO (22:35)
[2022-07-08] VITALS: BP 156/72; PULSE 112; RESP 20; TEMP 37.2; O2SAT 98
[2022-07-08] MEDS: PHENobarbitaL sodium 130 MG/ML VIAL IM Q3Hx2 205 MG IM (02:12)
[2022-07-08] MEDS: traZODone HCL 50 MG TABLET PO ×2 (02:12→20:58)
[2022-07-08 03:29] VITALS: BP 144/77; PULSE 70; RESP 18; TEMP 36.9; O2SAT 98
[2022-07-08] MEDS: Dextrose 5 % and 0.45 % NaCl 1,000 ML 150 ML IVCONT ×3 (05:14→18:13)
[2022-07-08 07:11] LABS: Anion Gap 18 (12-20); Blood Urea Nitrogen 9 mg/dL (9-16); Calcium 8.9 mg/dL (8.4-10.2); Carbon Dioxide 23 mmol/L (22-29); Chloride 99 mmol/L (96-108); Creatinine Clr Calc Pharmacy 147.3; Estimated Glomerular Filt Rate > 60; Glucose Random 120 mg/dL (60-115); Potassium 3.2 mmol/L (3.3-5.1); Sodium 137 mmol/L (135-145)
[2022-07-08 07:47] VITALS: BP 139/92; PULSE 83; RESP 20; TEMP 37.2; O2SAT 98
[2022-07-08] MEDS: PHENobarbitaL 15 MG TABLET 45 MG PO ×2 (08:31→20:58)
[2022-07-08] MEDS: amLODIPine Besylate 5 MG TABLET PO (08:32)
[2022-07-08] MEDS: FLUoxetine HCl 20 MG CAPSULE 40 MG PO (08:32)
[2022-07-08] MEDS: Thiamine HCL 100 MG TABLET PO (08:32)
[2022-07-08] MEDS: busPIRone HCl 10 MG TABLET 30 MG PO ×2 (08:32→20:58)
--- NOTE | 2022-07-08 10:24 | MHC.CM.PN ---
CM met with Patient at bedside. Patient lives alone in a house and he is functionally independent. Home self care vs Recovery Tram intervention r/t ETOH is the tentative plan and CM has initiated and will follow for dc planning. Patient has received Moderna/Covid vax x4 and his PCP recently retired and Patient explains that he is actively looking for a new PCP.
[2022-07-08 11:08] VITALS: BP 142/84; PULSE 82; RESP 20; TEMP 36.8; O2SAT 96
[2022-07-08] MEDS: hydrOXYzine HCL 50 MG TABLET PO (12:08)
[2022-07-08] MEDS: cloNIDine HCL 0.1 MG TABLET PO ×2 (15:25→20:58)
[2022-07-08 15:54] VITALS: BP 152/101; PULSE 89; RESP 18; TEMP 37; O2SAT 98
--- NOTE | 2022-07-08 15:57 | P.PNADD_ITS ---
Subjective Subjective Date of Service: 07/08/22 Reason For Visit: Alcohol withdrawal Interim History: Patient currently medically admitted with alcohol withdrawal. Known to this health technical writer--recently admitted for similar reason. Patient laying in bed, lights off, requesting this health technical writer return tomorrow as he just received medications and he has not slept secondary to anxiety Review of Systems Constitutional: Reports as per HPI Diagnostics Vital Signs (24Hr): Vital Signs - 24 hr 07/07/22 19:21 07/08/22 00:00 07/08/22 03:29 Temperature 99.0 F 98.4 F Pulse Rate 131 H 112 H 70 Respiratory Rate 18 20 18 Blood Pressure 189/99 H 156/72 H 144/77 H Pulse Oximetry 98 98 Oxygen Delivery Method Room Air Room Air 07/08/22 07:47 07/08/22 11:08 07/08/22 15:54 Temperature 98.9 F 98.2 F 98.6 F Pulse Rate 83 82 89 Respiratory Rate 20 20 18 Blood Pressure 139/92 H 142/84 H 152/101 H Pulse Oximetry 98 96 98 Oxygen Delivery Method Room Air Room Air Room Air BMI result Body Mass Index 28.8 Labs 07/07/22 15:43 07/08/22 06:13 Labs: Laboratory Results - last 48 hr 07/07/22 07/07/22 07/07/22 15:42 15:42 15:43 WBC 7.0 RBC 5.10 Hgb 15.0 Hct 41.9 L MCV 82.2 MCH 29.4 MCHC 35.8 RDW 12.2 Plt Count 228 MPV 9.4 Immature Gran % (Auto) 0.6 H Neut % (Auto) 61.3 Lymph % (Auto) 22.9 Mchenry % (Auto) 14.5 H Eos % (Auto) 0.1 Baso % (Auto) 0.6 Lymph # (Auto) 1.6 Mchenry # (Auto) 1.0 Eos # (Auto) 0.0 Baso # (Auto) 0.0 Abs Immat Gran (auto) 0.04 H Absolute Neuts (auto) 4.3 Absolute Nucleated RBC 0.000 Nucleated RBC % (auto) 0.0 PT 10.5 INR 0.9 Sodium Potassium Chloride Carbon Dioxide Anion Gap BUN Creatinine Estim Creat Clear Calc Estimated GFR Random Glucose Lactic Acid 6.1 H* Lactic Acid F/U @ 2Hr Lactic Acid F/U @ 4Hr Calcium Total Bilirubin AST ALT Alkaline Phosphatase Ammonia Total Protein Albumin Lipase TSH Free T4 Ethyl Alcohol COVID-19 ([facility]CI) COVID-Revel Touch 07/07/22 07/07/22 07/07/22 15:43 15:43 16:12 WBC RBC Hgb Hct MCV MCH MCHC RDW Plt Count MPV Immature Gran % (Auto) Neut % (Auto) Lymph % (Auto) Mchenry % (Auto) Eos % (Auto) Baso % (Auto) Lymph # (Auto) Mchenry # (Auto) Eos # (Auto) Baso # (Auto) Abs Immat Gran (auto) Absolute Neuts (auto) Absolute Nucleated RBC Nucleated RBC % (auto) PT INR Sodium 138 Potassium 3.5 Chloride 100 Carbon Dioxide 21 L Anion Gap 21 H BUN 14 Creatinine 0.74 Estim Creat Clear Calc 147.3 Estimated GFR > 60 Random Glucose 116 H Lactic Acid Lactic Acid F/U @ 2Hr Lactic Acid F/U @ 4Hr Calcium 8.4 D Total Bilirubin 0.4 AST 48 H ALT 72 H Alkaline Phosphatase 63 Ammonia 52 Total Protein 7.2 Albumin 4.5 Lipase 24 TSH 0.21 L Free T4 0.72 Ethyl Alcohol 255 COVID-19 (LUCI) Negative COVID-Revel Touch See Note 07/07/22 07/07/22 07/08/22 18:40 21:50 06:13 WBC RBC Hgb Hct MCV MCH MCHC RDW Plt Count MPV Immature Gran % (Auto) Neut % (Auto) Lymph % (Auto) Mchenry % (Auto) Eos % (Auto) Baso % (Auto) Lymph # (Auto) Mchenry # (Auto) Eos # (Auto) Baso # (Auto) Abs Immat Gran (auto) Absolute Neuts (auto) Absolute Nucleated RBC Nucleated RBC % (auto) PT INR Sodium 137 Potassium 3.2 L Chloride 99 Carbon Dioxide 23 Anion Gap 18 BUN 9 Creatinine 0.74 Estim Creat Clear Calc 147.3 Estimated GFR > 60 Random Glucose 120 H Lactic Acid Lactic Acid F/U @ 2Hr 4.4 H* Lactic Acid F/U @ 4Hr 3.9 H* Calcium 8.9 Total Bilirubin AST ALT Alkaline Phosphatase Ammonia Total Protein Albumin Lipase TSH Free T4 Ethyl Alcohol COVID-19 ([facility]CI) [facility] (formerly [facility]) Medications Medications Current Medications Amlodipine Besylate (Amlodipine Besylate 5 Mg Tablet) 5 mg PO DAILY [facility]; Protocol Last Admin: 07/08/22 08:32 Dose: 5 mg Buspirone HCl (Buspirone Hcl 10 Mg Tablet) 30 mg PO BID [facility] Last Admin: 07/08/22 08:32 Dose: 30 mg Clonidine HCl (Clonidine Hcl 0.1 Mg Tablet) 0.1 mg PO BID [facility]; Protocol Last Admin: 07/08/22 15:25 Dose: 0.1 mg Enoxaparin Sodium (Enoxaparin Sodium 40 Mg/0.4 Ml Syringe) 40 mg SUBCUT Q24H [facility] Last Admin: 07/07/22 20:16 Dose: 40 mg Fluoxetine HCl (Fluoxetine Hcl 20 Mg Capsule) 40 mg PO DAILY [facility] Last Admin: 07/08/22 08:32 Dose: 40 mg Hydroxyzine HCl (Hydroxyzine Hcl 50 Mg Tablet) 50 mg PO BID PRN PRN Reason: Anxiety Last Admin: 07/08/22 12:08 Dose: 50 mg Dextrose/Sodium Chloride (D51/2ns) 1,000 mls @ 150 mls/hr IVCONT .Q6H40M [facility] Last Admin: 07/08/22 10:17 Dose: 150 mls/hr Melatonin (Melatonin 3 Mg Tablet) 6 mg PO BEDTIME PRN PRN Reason: Insomnia Last Admin: 07/07/22 22:35 Dose: 6 mg Omeprazole (Omeprazole 20 Mg Capsule.Dr) 20 mg PO DAILY@0630 [facility] Ondansetron HCl (Ondansetron Hcl 4 Mg/2 Ml Vial) 4 mg IVPUSH Q8H PRN PRN Reason: Nausea and Vomiting Last Admin: 07/07/22 22:35 Dose: 4 mg Pharmacy Consult (Consult Rx Etoh Phenob Im/Po) 1 each MISCELLANE ONCE PRN; Protocol PRN Reason: Consult order Phenobarbital (Phenobarbital 15 Mg Tablet) 45 mg PO BID [facility] Stop: 07/09/22 21:01 Last Admin: 07/08/22 08:31 Dose: 45 mg Phenobarbital (Phenobarbital 15 Mg Tablet) 15 mg PO BID [facility] Stop: 07/11/22 21:01 Phenobarbital (Phenobarbital 15 Mg Tablet) 15 mg PO DAILY [facility] Stop: 07/13/22 09:01 Sodium Chloride (0.9 % Sodium Chloride Flush 3 Ml Syringe) 3 ml IVFLUSH QSHIFT [facility] Last Admin: 07/08/22 09:07 Dose: Not Given Thiamine HCl (Thiamine Hcl 100 Mg Tablet) 100 mg PO DAILY [facility] Stop: 07/10/22 09:01 Last Admin: 07/08/22 08:32 Dose: 100 mg Trazodone HCl (Trazodone Hcl 50 Mg Tablet) 50 mg PO BEDTIME PRN PRN Reason: insomnia Last Admin: 07/08/22 02:12 Dose: 50 mg Trazodone HCl (Trazodone Hcl 50 Mg Tablet) 50 mg PO BEDTIME [facility] Allergies Allergies Allergy/AdvReac Type Severity Reaction Status Date / Time No Known Allergies Allergy Unknown UNKNOWN Verified 09/19/21 10:42 [NO KNOWN ALLERGIES] Assessment & Plan Assessment & Plan (1) Alcohol use disorder, severe, dependence: Status: Acute Code(s): F10.20 - Alcohol dependence, uncomplicated Assessment and Plan: * will follow up in AM Total time managing care of this patient today _10___ minutes.
--- NOTE | 2022-07-08 17:15 | P.PNIM_ITS ---
Subjective Subjective Date of Service: 07/08/22 Interval History: Alcohol withdrawal Review of Systems Anxious, tremulous has mild epigastric soarness Denies any chest pain or nausea vomiting or abdominal pain. Physical Exam Vital Signs: Vital Signs: Last Vital Signs Temp 98.6 F 07/08/22 15:54 Pulse 89 07/08/22 15:54 Resp 18 07/08/22 15:54 BP 152/101 H 07/08/22 15:54 Pulse Ox 98 07/08/22 15:54 O2 Del Method 07/08/22 15:54 BMI result Body Mass Index 28.8 Gen: flushed, somewhat tremulous, yet cooperative HEENT: sclera anicteric, moist mucus membranes Neck: supple Lungs: clear to auscultation bilaterally Heart: tachycardia improvin, no murmurs Abd: soft, non-tender, non-distended Ext: no edema Skin: warm/well-perfused Neuro: alert and oriented x3, no focal findings Psych: appropriate affect, anxious Objective Data Active Medications Amlodipine Besylate (Amlodipine Besylate 5 Mg Tablet) 5 mg PO DAILY [facility]; Protocol Last Admin: 07/08/22 08:32 Dose: 5 mg Documented By: KEYONNA Buspirone HCl (Buspirone Hcl 10 Mg Tablet) 30 mg PO BID [facility] Last Admin: 07/08/22 08:32 Dose: 30 mg Documented By: KEYONNA Clonidine HCl (Clonidine Hcl 0.1 Mg Tablet) 0.1 mg PO BID [facility]; Protocol Last Admin: 07/08/22 15:25 Dose: 0.1 mg Documented By: MG Enoxaparin Sodium (Enoxaparin Sodium 40 Mg/0.4 Ml Syringe) 40 mg SUBCUT Q24H [facility] Last Admin: 07/07/22 20:16 Dose: 40 mg Documented By: TIANNA Fluoxetine HCl (Fluoxetine Hcl 20 Mg Capsule) 40 mg PO DAILY [facility] Last Admin: 07/08/22 08:32 Dose: 40 mg Documented By: KEYONNA Hydroxyzine HCl (Hydroxyzine Hcl 50 Mg Tablet) 50 mg PO BID PRN PRN Reason: Anxiety Last Admin: 07/08/22 12:08 Dose: 50 mg Documented By: KEYONNA Dextrose/Sodium Chloride (D51/2ns) 1,000 mls @ 150 mls/hr IVCONT .Q6H40M [facility] Last Admin: 07/08/22 10:17 Dose: 150 mls/hr Documented By: KEYONNA Melatonin (Melatonin 3 Mg Tablet) 6 mg PO BEDTIME PRN PRN Reason: Insomnia Last Admin: 07/07/22 22:35 Dose: 6 mg Documented By: EMILIE Omeprazole (Omeprazole 20 Mg Capsule.Dr) 20 mg PO DAILY@0630 [facility] Ondansetron HCl (Ondansetron Hcl 4 Mg/2 Ml Vial) 4 mg IVPUSH Q8H PRN PRN Reason: Nausea and Vomiting Last Admin: 07/07/22 22:35 Dose: 4 mg Documented By: EMILIE Pharmacy Consult (Consult Rx Etoh Phenob Im/Po) 1 each MISCELLANE ONCE PRN; Protocol PRN Reason: Consult order Phenobarbital (Phenobarbital 15 Mg Tablet) 45 mg PO BID [facility] Stop: 07/09/22 21:01 Last Admin: 07/08/22 08:31 Dose: 45 mg Documented By: KEYONNA Phenobarbital (Phenobarbital 15 Mg Tablet) 15 mg PO BID [facility] Stop: 07/11/22 21:01 Phenobarbital (Phenobarbital 15 Mg Tablet) 15 mg PO DAILY [facility] Stop: 07/13/22 09:01 Sodium Chloride (0.9 % Sodium Chloride Flush 3 Ml Syringe) 3 ml IVFLUSH QSHIFT [facility] Last Admin: 07/08/22 09:07 Dose: Not Given Documented By: KEYONNA Non-Admin Reason: IV Running Thiamine HCl (Thiamine Hcl 100 Mg Tablet) 100 mg PO DAILY [facility] Stop: 07/10/22 09:01 Last Admin: 07/08/22 08:32 Dose: 100 mg Documented By: KEYONNA Trazodone HCl (Trazodone Hcl 50 Mg Tablet) 50 mg PO BEDTIME PRN PRN Reason: insomnia Last Admin: 07/08/22 02:12 Dose: 50 mg Documented By: EMILIE Trazodone HCl (Trazodone Hcl 50 Mg Tablet) 50 mg PO BEDTIME [facility] Labs 07/07/22 15:43 07/08/22 06:13 Labs: Laboratory Results - last 24 hr 07/07/22 07/07/22 07/07/22 16:12 18:40 21:50 Anion Gap Estim Creat Clear Calc Estimated GFR Random Glucose Lactic Acid F/U @ 2Hr 4.4 H* Lactic Acid F/U @ 4Hr 3.9 H* Calcium TSH 0.21 L Free T4 0.72 07/08/22 06:13 Anion Gap 18 Estim Creat Clear Calc 147.3 Estimated GFR > 60 Random Glucose 120 H Lactic Acid F/U @ 2Hr Lactic Acid F/U @ 4Hr Calcium 8.9 TSH Free T4 Assessment and Plan (1) Alcohol withdrawal syndrome: Status: Acute (2) Elevated LFTs: Status: Acute (3) Alcoholic gastritis: Status: Acute (4) Hypokalemia: Status: Acute Plan 36yo M with AUD, frequent admissions for withdrawal, presenting with alcohol withdrawal and alcoholic ketoacidosis # Alcohol withdrawal syndrome - admit to M/S, give phenobarbital taper Still has tremulous and anxiety-added another dose of IM phenobarb, in addition added also clonidine. # EtOH ketoacidosis, including acute lactic acidosis - IV fluids hydration, recheck electrolytes in AM # AUD -? CARE Team consultations # HTN - amlodipine # GERD - PPI # anxiety - buspirone. hypokalemia : added potassium. #Tachycardia--improving,related to alcohol withdrawal # VTE prophylaxis: LMWH. inaptient need:Alcohol withdrawal syndrome,hypokalmia: Needs phenobarb protocol, CIWA monitoring, electrolytes and renal function monitoring. Time Spent With Patient Time: Total time managing care of this patient today ____ minutes. Quality Stroke Does the patient have a stroke diagnosis?: No VTE Prior VTE?: No VTE Risk Level:: Medical - moderate - high VTE Device Contraindication: Treatment Not Indicated VTE Drug Contraindication: N/A - Med Ordered
[2022-07-08] MEDS: Enoxaparin Sodium 40 MG/0.4 ML SYRINGE SUBCUT (18:11)
[2022-07-08] MEDS: Pantoprazole Sodium 40 MG/10 ML VIAL IVPUSH (18:11)
[2022-07-08] MEDS: 0.9 % Sodium Chloride Flush 3 ML SYRINGE IVFLUSH (18:12)
[2022-07-08] MEDS: Potassium Chloride Packet 20 MEQ PACKET 40 MEQ PO (18:12)
[2022-07-08] MEDS: PHENobarbitaL sodium 130 MG/ML VIAL IM (18:22)
[2022-07-08 20:00] VITALS: BP 150/90; PULSE 89; RESP 18; TEMP 37.1; O2SAT 98
[2022-07-09] VITALS: BP 119/68; PULSE 60; RESP 18; TEMP 36.7; O2SAT 96
[2022-07-09] MEDS: Dextrose 5 % and 0.45 % NaCl 1,000 ML 150 ML IVCONT ×3 (01:14→14:59)
[2022-07-09] MEDS: hydrOXYzine HCL 50 MG TABLET PO ×2 (01:19→15:00)
[2022-07-09] MEDS: traZODone HCL 50 MG TABLET PO ×2 (01:19→22:24)
[2022-07-09 03:30] VITALS: BP 126/77; PULSE 57; RESP 16; TEMP 36.7; O2SAT 97
[2022-07-09] MEDS: Pantoprazole Sodium 40 MG/10 ML VIAL IVPUSH ×2 (06:24→16:49)
[2022-07-09 07:46] VITALS: BP 139/64; PULSE 63; RESP 16; TEMP 36.3; O2SAT 99
[2022-07-09 08:40] LABS: Anion Gap 16 (12-20); Blood Urea Nitrogen 4 mg/dL (9-16); Calcium 9.1 mg/dL (8.4-10.2); Carbon Dioxide 25 mmol/L (22-29); Chloride 102 mmol/L (96-108); Creatinine Clr Calc Pharmacy 136.3; Estimated Glomerular Filt Rate > 60; Glucose Random 114 mg/dL (60-115); Potassium 3.1 mmol/L (3.3-5.1); Sodium 140 mmol/L (135-145)
[2022-07-09] MEDS: PHENobarbitaL 15 MG TABLET 45 MG PO ×2 (08:44→22:24)
[2022-07-09] MEDS: amLODIPine Besylate 5 MG TABLET PO (08:44)
[2022-07-09] MEDS: busPIRone HCl 10 MG TABLET 30 MG PO ×2 (08:44→22:23)
[2022-07-09] MEDS: FLUoxetine HCl 20 MG CAPSULE 40 MG PO (08:44)
[2022-07-09] MEDS: Thiamine HCL 100 MG TABLET PO (08:44)
[2022-07-09] MEDS: cloNIDine HCL 0.1 MG TABLET PO ×2 (08:45→22:24)
[2022-07-09 11:22] VITALS: BP 151/78; PULSE 52; RESP 16; TEMP 36.3; O2SAT 99
--- NOTE | 2022-07-09 14:08 | MHC.RECOVRN ---
Met with pt in 460 to check in and provide support. Pt laying in bed, eyes closed, wakes to voice. Pt reports inability to sleep due to staff in and out of room, trying to get rest. Pt engages briefly with t/w. Reports he asked his dad to call for a wellness check, which resulted in pt being brought to the hospital. Pt states I need to do something different. Pt had been going the the [facility] and would like to reinitiate care. Requesting appt be made for next week. Pt denies other questions or concerns at this time. Appt made for 07/16 at 10:30AM at the [facility].
[2022-07-09 15:21] VITALS: BP 129/75; PULSE 73; RESP 18; TEMP 37.1; O2SAT 98
--- NOTE | 2022-07-09 15:33 | HO.PM.IMPN ---
Subjective Subjective Date of Service: 07/09/22 Interval History: Alcohol withdrawal Review of Systems Anxious, tremulous no epigastric soarness Denies any chest pain or nausea vomiting or abdominal pain. Physical Exam Vital Signs: Vital Signs: Last Vital Signs Temp 98.7 F 07/09/22 15:21 Pulse 73 07/09/22 15:21 Resp 18 07/09/22 15:21 BP 129/75 07/09/22 15:21 Pulse Ox 98 07/09/22 15:21 O2 Del Method 07/09/22 15:21 BMI result Body Mass Index 28.8 Gen: anxious,somewhat tremulous, yet cooperative Lungs: clear to auscultation bilaterally Heart: tachycardia improvin, no murmurs Abd: soft, non-tender, non-distended Ext: no edema Skin: warm/well-perfused Neuro: alert and oriented x3, no focal findings Psych: appropriate affect, anxious Objective Data Active Medications Amlodipine Besylate (Amlodipine Besylate 5 Mg Tablet) 5 mg PO DAILY [facility]; Protocol Last Admin: 07/09/22 08:44 Dose: 5 mg Documented By: LAURE Buspirone HCl (Buspirone Hcl 10 Mg Tablet) 30 mg PO BID [facility] Last Admin: 07/09/22 08:44 Dose: 30 mg Documented By: LAURE Clonidine HCl (Clonidine Hcl 0.1 Mg Tablet) 0.1 mg PO BID [facility]; Protocol Last Admin: 07/09/22 08:45 Dose: 0.1 mg Documented By: LAURE Enoxaparin Sodium (Enoxaparin Sodium 40 Mg/0.4 Ml Syringe) 40 mg SUBCUT Q24H [facility] Last Admin: 07/08/22 18:11 Dose: 40 mg Documented By: MG Fluoxetine HCl (Fluoxetine Hcl 20 Mg Capsule) 40 mg PO DAILY [facility] Last Admin: 07/09/22 08:44 Dose: 40 mg Documented By: LAURE Hydroxyzine HCl (Hydroxyzine Hcl 50 Mg Tablet) 50 mg PO BID PRN PRN Reason: Anxiety Last Admin: 07/09/22 15:00 Dose: 50 mg Documented By: LAURE Dextrose/Sodium Chloride (D51/2ns) 1,000 mls @ 150 mls/hr IVCONT .Q6H40M [facility] Last Admin: 07/09/22 14:59 Dose: 150 mls/hr Documented By: LAURE Melatonin (Melatonin 3 Mg Tablet) 6 mg PO BEDTIME PRN PRN Reason: Insomnia Last Admin: 07/07/22 22:35 Dose: 6 mg Documented By: EMILIE Ondansetron HCl (Ondansetron Hcl 4 Mg/2 Ml Vial) 4 mg IVPUSH Q8H PRN PRN Reason: Nausea and Vomiting Last Admin: 07/07/22 22:35 Dose: 4 mg Documented By: EMILIE Pantoprazole Sodium (Pantoprazole Sodium 40 Mg/10 Ml Vial) 40 mg IVPUSH BID@0630,1630 [facility] Last Admin: 07/09/22 06:24 Dose: 40 mg Documented By: FREDRICK Pharmacy Consult (Consult Rx Etoh Phenob Im/Po) 1 each MISCELLANE ONCE PRN; Protocol PRN Reason: Consult order Phenobarbital (Phenobarbital 15 Mg Tablet) 45 mg PO BID [facility] Stop: 07/09/22 21:01 Last Admin: 07/09/22 08:44 Dose: 45 mg Documented By: LAURE Phenobarbital (Phenobarbital 15 Mg Tablet) 15 mg PO BID [facility] Stop: 07/11/22 21:01 Phenobarbital (Phenobarbital 15 Mg Tablet) 15 mg PO DAILY [facility] Stop: 07/13/22 09:01 Sodium Chloride (0.9 % Sodium Chloride Flush 3 Ml Syringe) [facility] Last Admin: 07/09/22 08:45 Dose: Not Given Documented By: LAURE Non-Admin Reason: IV Running Thiamine HCl (Thiamine Hcl 100 Mg Tablet) 100 mg PO DAILY [facility] Stop: 07/10/22 09:01 Last Admin: 07/09/22 08:44 Dose: 100 mg Documented By: LAURE Trazodone HCl (Trazodone Hcl 50 Mg Tablet) 50 mg PO BEDTIME PRN PRN Reason: insomnia Last Admin: 07/09/22 01:19 Dose: 50 mg Documented By: FREDRICK Trazodone HCl (Trazodone Hcl 50 Mg Tablet) 50 mg PO BEDTIME [facility] Last Admin: 07/08/22 20:58 Dose: 50 mg Documented By: MG Labs 07/07/22 15:43 07/09/22 08:10 Labs: Laboratory Results - last 24 hr 07/09/22 08:10 Anion Gap 16 Estim Creat Clear Calc 136.3 Estimated GFR > 60 Random Glucose 114 Calcium 9.1 Assessment and Plan (1) Alcohol withdrawal syndrome: Status: Resolved (2) Elevated LFTs: Status: Acute (3) Alcoholic gastritis: Status: Acute (4) Hypokalemia: Status: Acute Plan 36yo M with AUD, frequent admissions for withdrawal, presenting with alcohol withdrawal and alcoholic ketoacidosis # Alcohol withdrawal syndrome - admit to M/S, give phenobarbital taper Still has tremulous and anxiety-continue phenobarbital and clonidine. # EtOH ketoacidosis, including acute lactic acidosis - IV fluids hydration, recheck electrolytes in AM # AUD -? CARE Team consultations # HTN - amlodipine # GERD - PPI # anxiety - buspirone. hypokalemia : added potassium. #Tachycardia--improving,related to alcohol withdrawal # VTE prophylaxis: LMWH. inaptient need:Alcohol withdrawal syndrome,hypokalmia: Needs phenobarb protocol, CIWA monitoring, electrolytes and renal function monitoring. Time Spent With Patient Time: Total time managing care of this patient today ____ minutes. Quality Stroke Does the patient have a stroke diagnosis?: No VTE Prior VTE?: No VTE Risk Level:: Medical - moderate - high VTE Device Contraindication: Treatment Not Indicated VTE Drug Contraindication: N/A - Med Ordered
[2022-07-09 15:59] LABS: Magnesium 1.9 mg/dL (1.6-2.6)
--- NOTE | 2022-07-09 16:17 | MHC.CM.PN ---
pt has appt jossue torres at the [facility] 07/16 at 10:30
[2022-07-09] MEDS: 0.9 % Sodium Chloride Flush 3 ML SYRINGE IVFLUSH (16:45)
[2022-07-09] MEDS: Potassium Chloride Packet 20 MEQ PACKET 40 MEQ PO (16:45)
[2022-07-09] MEDS: Magnesium Oxide 400 MG TABLET PO (16:45)
[2022-07-09 19:58] VITALS: BP 159/98; PULSE 71; RESP 18; TEMP 37.1; O2SAT 98
[2022-07-09] MEDS: Melatonin 3 MG TABLET 6 MG PO (22:24)
[2022-07-09] MEDS: Enoxaparin Sodium 40 MG/0.4 ML SYRINGE SUBCUT (22:25)
[2022-07-10] VITALS: BP 107/61; PULSE 59; RESP 20; TEMP 36.5; O2SAT 98
[2022-07-10] MEDS: 0.9 % Sodium Chloride Flush 3 ML SYRINGE IVFLUSH ×2 (01:02→07:56)
[2022-07-10 03:27] VITALS: BP 116/67; PULSE 55; RESP 20; TEMP 35.9; O2SAT 97
[2022-07-10] MEDS: Pantoprazole Sodium 40 MG/10 ML VIAL IVPUSH (06:23)
[2022-07-10 07:54] VITALS: BP 131/73; PULSE 56; RESP 19; TEMP 36.8; O2SAT 98
[2022-07-10] MEDS: busPIRone HCl 10 MG TABLET 30 MG PO (07:55)
[2022-07-10] MEDS: FLUoxetine HCl 20 MG CAPSULE 40 MG PO (07:55)
[2022-07-10] MEDS: Magnesium Oxide 400 MG TABLET PO (07:55)
[2022-07-10] MEDS: amLODIPine Besylate 5 MG TABLET PO (07:56)
[2022-07-10] MEDS: cloNIDine HCL 0.1 MG TABLET PO (07:56)
[2022-07-10] MEDS: PHENobarbitaL 15 MG TABLET PO (07:56)
[2022-07-10] MEDS: Thiamine HCL 100 MG TABLET PO (07:59)
[2022-07-10 09:47] LABS: Potassium 3.5 mmol/L (3.3-5.1)
--- NOTE | 2022-07-10 11:19 | P.DS_ITS ---
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 hospitalization from 06/28 to 07/01 for alcohol withdrawal and presents yet again? after having been binging on at least 1 L of Vodka daily for the last 4 days, last drink was just? around? 6 hours agao.? He is seeking detoxification. He is tremoulous, tachycardic, no hallucination, cooperative.? He has been? given IV fluids and started on phenobarbital protocol along with thiamine and IV fluids.? 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 Hospital course: Patient admitted for alcohol withdrawal , tachycardia, hypokalemia: Started on phenobarb protocol, hypokalemia repleted. Patient alcohol withdrawal seems to be resolved. Hypokalemia is also improved. Tachycardia also resolved with alcohol withdrawal treatment . EtOH ketoacidosis, including acute lactic acidosis: Improved with hydration and supportive care. Alcoholic gastritis: Seems to be improved also -will be going home with p.o. omeprazole. elevated lfts: Seems flacutatin, possibly related to alcohol use, further workup outpatient. Plan: Monitor electrolytes and renal function outpatient. Strongly advised to abstain from alcohol. Above management discussed with the patient in detail length she understand and in agreement with the above plan, time spent 50 minutes. Time Spent with Patient Time attestation: Total time managing care of this patient today ____ minutes. Discharge coordination time: Greater than 30 minutes Quality: Safe Use of Opioids Does Pt have an Active Cancer Diagnosis on the Problem List?: No Quality: Stroke Does the patient have a stroke diagnosis?: No Physical Exam Vital Signs: Vital Signs: Last Vital Signs Temp 98.2 F 07/10/22 07:54 Pulse 56 07/10/22 07:54 Resp 19 07/10/22 07:54 BP 131/73 07/10/22 07:54 Pulse Ox 98 07/10/22 07:54 O2 Del Method 07/10/22 07:54 BMI result Body Mass Index 28.8 Appearance: Alert.? Oriented X3.? not in distress.? Eyes: Pupils equal, round and reactive to light.? Sclera nonicteric.? ENT: Pharynx normal.? Moist mucous membranes. cvs: rrr, [id number]. res: clear to auscultation ,no rhonchii or wheezing abd: no rebound or guarding ,nt, bs present. ext pulses present , no cyanosis . neuro: axo3 , nonfocal. DS: Data Data Completed and Pending Completed studies during hospitalization [Text1]: Procedures Detoxification Services for Substance Abuse Treatment (06/28/22) Labs on day of discharge: Laboratory Results - last 24 hr 07/09/22 07/10/22 08:10 08:38 Potassium 3.5 Magnesium 1.9 Discharge Plan Discharge Anticipated Discharge Date/Time: 07/10/22 11:08 Patient Disposition: Home, Self-Care Discharge Diagnosis: Alcohol withdrawal syndrome,hyperkalemia Referrals: 07/16 10:30 appt walt/ melissa at [facility] [Other] - 1 Week Galen Ordonez MD [Primary Care Provider] - 1 Week Discharge Medications: New melatonin 3 mg Tablet 6 mg PO BEDTIME PRN (Reason: Insomnia) Qty: 30 0RF thiamine HCl (vitamin B1) 100 mg tablet 100 mg PO DAILY Qty: 30 0RF folic acid 1 mg tablet 1 mg PO DAILY Qty: 30 0RF Continued fluoxetine 40 mg capsule 1 cap PO DAILY trazodone 50 mg tablet 1 tab PO BEDTIME amlodipine 5 mg tablet 1 tab PO DAILY omeprazole 20 mg capsule,delayed release(DR/EC) 1 cap PO DAILY buspirone 30 mg tablet 1 tab PO BID hydroxyzine HCl 50 mg Tablet 50 mg PO BID PRN (Reason: Anxiety) Discharge Orders: Discharge Order (Routine); Ordered 07/10/22 Ordered By: Reuben Bazzi Diet: Advance to usual diet Activity on Discharge: As tolerated Stand Alone Forms: Patient Portal Discharge page Care Plan Goals: Patient admitted for alcohol withdrawal , hypokalemia: Started on phenobarb protocol, hypokalemia repleted. Patient alcohol withdrawal seems to be resolved. Hypokalemia is also improved. Patient will be going home . Health Concerns: as above. Plan of Treatment: As above. Assessment: As above.
--- NOTE | 2022-07-10 11:33 | MHC.CM.PN ---
Patient has been medically cleared for dc to home today, self care.
== END 2022-07-10 12:26 | disposition home or self-care (01) | DRG 241 ==
LOC: HO.ED 14:58 → HO.EDOVER 18:52 → HO.IMC 19:33
PROVIDERS: Admitting Provider Internal Medicine; Emergency Provider Emergency Medicine; PCP Internal Medicine; Visit Provider Internal Medicine
DX: K29.20 Alcoholic gastritis without bleeding (principal); E87.21 Acute metabolic acidosis; F10.239 Alcohol dependence with withdrawal, unspecified; K21.9 Gastro-esophageal reflux disease without esophagitis; F41.9 Anxiety disorder, unspecified; E87.6 Hypokalemia; Z20.822 Contact with and (suspected) exposure to COVID-19; Y90.8 Blood alcohol level of 240 mg/100 ml or more; Z56.0 Unemployment, unspecified; Z79.899 Other long term (current) drug therapy
CPT/HCPCS: 36415; 80048; 80053; 82077; 82140; 83605; 83690; 83735; 84132; 84439; 84443; 85025; 85610; 87635; 99285; J1650; J2405; J2560; J3411

== ENCOUNTER 2022-09-26 20:32 | Inpatient (IN) | payer MEDICAID, OTHER, SELFPAY ==
[2022-09-26 20:46] VITALS: BP 149/85; PULSE 115; RESP 16; TEMP 36.7; O2SAT 96; BMI 27.3
[2022-09-26 20:56] VITALS: BP 149/85; PULSE 116; RESP 16; O2SAT 95
--- OUTSIDE RECORDS SUMMARY | 2022-09-26 21:11 | XMS_ITS | Continuity of Care Document ---
Author Name Unknown Organization [facility] Address [address] [place] [id number]- Care Team Providers Care Home Office Representative Name Role Phone Not on Staff, PCP Primary Care Physician Unavail able Encounter [facility] Date(s): 07/12/22 - 07/15/[address] [id number]- Encounter Diagnosis Alcohol withdrawal(Final) - 07/12/22 Discharge Disposition: A-D/C Home Attending Physician: Dominique Guthrie MD Admitting Physician: Martha Gomez MD Referring Physician: Not on Staff, Referring MD Allergies, Adverse Reactions, Alerts No Known Allergies Immunizations Given and Recorded Vaccine Date Status Refusal Reason tetanus/diphtheria/pertussis, acel(Tdap) 07/12/22 Given tetanus/diphtheria/pertussis, acel(Tdap) 09/13/12 Given SARS-CoV-2 (COVID-19) mRNA-1273 vaccine 1 05/28/21 Recorded SARS-CoV-2 (COVID-19) mRNA-1273 vaccine 09/27/20 R ecorded SARS-CoV-2 (COVID-19) mRNA-1273 vaccine 08/30/20 R ecorded influenza virus vaccine, inactivated 2 04/17/21 Gi gracie influenza virus vaccine, inactivated 07/09/20 Give n influenza virus vaccine, inactivated 04/20/19 Give n influenza virus vaccine, inactivated 3 03/10/17 Gi gracie hepatitis B adult vaccine 01/15/21 Given pneumococcal 13-valent vaccine 4 01/11/21 Given Hepatitis A Adult Vaccine 5 10/10/13 Given FluLaval (oldterm) 04/16/10 Given tetanus-diphtheria toxoids (Td) 6 04/29/04 Given 1Result Comment: BOOSTER 2Result Comment: [facility]# ON THE [address] [phone] 3Result Comment: [03/10/2017] [facility] [phone] 4Result Comment: [facility]: [phone] 5Result Comment: [10/10/2013] #1 6Admin Note: historical data Medications acamprosate 333 mg oral delayed release tablet = 666 mg, By Mouth, 3 times a day with meals, # 180 tablet, 0 Refills, Maintenance, 09/17/21 9:37:00 EDT, Tablet, [facility], Partial fill upon patient request if the prescription is for a schedule II opioid drug., 172, cm, 09/17/21 8:49:00 EDT,... Start Date: 09/17/21 Status: Ordered amLODIPine 5 mg oral tablet 5 mg, 1, tablet, By Mouth, Daily, PRN, Please resume amlodipine 5mg PO daily if BP > 140/90., # 30 tablet, Refills 0, Tot. Refills 0, Maintenance, Blood Pressure, 12/08/21 11:02:00 EDT, Do Not Route, Partial fill upon patient request if the prescripti... Start Date: 12/08/21 Stop Date: 01/07/22 Status: Ordered busPIRone 30 mg oral tablet 1 tablet = 30 mg, By Mouth, 2 times a day, # 180 tablet, 0 Refills, Maintenance, 12/06/21 4:19:00 EDT, Tablet, Partial fill upon patient request if the prescription is for a schedule II opioid drug. Start Date: 12/06/21 Status: Ordered FLUoxetine 20 mg oral capsule 40 mg, 2, capsule, By Mouth, Daily, # 60 capsule, Refills 0, Tot. Refills 0, Maintenance, 09/17/21 9:36:00 EDT, Route to Pharmacy Electronically, [facility], Partial fill upon patient request ifthe prescription is for a schedule II opioid drug.,... Start Date: 09/17/21 Status: Ordered folic acid 1 mg oral tablet 1 mg, 1, tablet, By Mouth, Daily, # 30 tablet, Refills 0, Tot. Refills 0, Maintenance, 08/29/21 10:08:00 EDT, Route to Pharmacy Electronically, [facility], Partial fill upon patient request if the prescription is for a schedule II opioid drug., 1... Start Date: 08/29/21 Status: Ordered hydrOXYzine hydrochloride 50 mg oral tablet 1 tablet = 50 mg, By Mouth, 2 times a day, PRN for anxiety, # 60 tablet, 0 Refills, Acute 09/17/22 9:00:00 EDT, 09/17/21 9:38:00 EDT, Tablet, [facility], Partial fill upon patient request if theprescription is for a schedule II opioid drug., 172... Start Date: 09/17/21 Stop Date: 09/17/22 Status: Ordered LORazepam 1 mg oral tablet 1 tablet = 1 mg, By Mouth, 3 times a day, PRN Anxiety, for 7 days, # 18 tablet, 1 Refills, Acute 07/29/22 10:01:00 EST, 07/15/22 10:01:00 EST, Tablet, [facility], Partial fill upon patient request if the prescription is for a schedule II... Start Date: 07/15/22 Stop Date: 07/29/22 Status: Ordered melatonin 10 mg oral tablet 1 tablet = 10 mg, By Mouth, Daily at bedtime, PRN as needed for insomnia, 0 Refills, Maintenance, 08/26/21 14:01:00 EDT, Tablet, Partial fill upon patient request if the prescription is for a schedule II opioid drug. Start Date: 08/26/21 Status: Ordered multivitamin Multiple Vitamins oral tablet 1 tablet, By Mouth, Daily, # 30 tablet, 0 Refills, Maintenance, 05/06/21 14:35:00 EST, Tablet, [facility], Partial fill upon patient request if the prescription is for a schedule II opioid drug., 1 tablet By Mouth Daily,x30 days, 174, cm, ... Start Date: 05/06/21 Stop Date: 06/05/21 Status: Ordered naltrexone 50 mg oral tablet 1 tablet = 50 mg, By Mouth, Daily, # 30 tablet, 0 Refills, Maintenance, 12/06/21 4:20:00 EDT, Tablet, Partial fill upon patient request if the prescription is for a schedule II opioid drug. Start Date: 12/06/21 Status: Ordered omeprazole 20 mg oral enteric coated capsule 1 capsule = 20 mg, By Mouth, 2 times a day, before a meal, 0 Refills, Maintenance, 09/17/21 9:47:00EDT, [facility], Partial fill upon patient request if the prescription is for a schedule II opioid drug. Start Date: 09/17/21 Status: Ordered Pyridoxine Tablet 50 mg, By Mouth, Daily, Refills 0, Maintenance, 12/08/21 11:05:00 EDT, Partial fill upon patient request if the prescription is for a schedule II opioid drug. Start Date: 12/08/21 Status: Ordered thiamine 100 mg oral tablet 100 mg, 1, tablet, By Mouth, 2 times a day, Refills 0, Maintenance, 12/08/21 11:05:00 EDT, Partial fill upon patient request if the prescription is for a schedule II opioid drug. Start Date: 12/08/21 Status: Ordered traZODone 50 mg oral tablet 1, tablet, By Mouth, Daily at bedtime, PRN, # 30 tablet, Refills 5, Tot. Refills 5, NEEDED FOR INSOMNIA, 09/17/21 9:37:00 EDT, Route to Pharmacy Electronically, [facility], 172, cm, 09/17/21 8:49:00 EDT, Height, 75, kg, 09/12/21 17:05:00 EDT,... Start Date: 09/17/21 Status: Ordered Problem List Condition Confirmation Course Effective Dates Status H ealth Status Informant Essential Hypertension 1, 2, 3 Confirmed Active H/O herpes zoster 4 Confirmed 12/23/07 Active Hyperlipidemia Confirmed Active Impaired fasting glucose 5 Confirmed Active Major depression in full remission Confirmed Active Fatty liver 2020 Confirmed Active 1urine catecholamines appear normal 2negative renal artery duplex 3r/o secondary cause 4right T11 distribution 5advised pre diabetic increased risk diabetes Results Radiology Reports * Exam Date Time Procedure Performing Provider Status 07/13/22 1:36 AM Chest Portable Gladys Arguelles; Auth (Verified) Notes: (Chest Portable) Reason For Exam: Pleuritic Pain RESULT: Chest Portable Chest Portable Reason: Pleuritic Pain; Clinical Question(s): Other: COMPARISON: May 19, 2022 FINDINGS: LINES AND TUBES: None. LUNGS AND PLEURA: Clear lungs. Normal pulmonary vascularity. No pleural effusion. No pneumothorax. HEART, MEDIASTINUM AND ROJELIO: Heart is normal in size. Normal mediastinal and hilar contour. BONES AND SOFT TISSUES: No acute abnormality. IMPRESSION: No acute abnormality. WSN: [id number] Ordering Physician: Miguel Michele Dictated By: Elvin Farrell MD Dictated Date/Time: 07/13/22 8:40 am Reviewed By: Elvin Farrell MD Signed By: Elvin Farrell MD Signed Date/Time: 07/13/22 8:40 am Transcribed By: REINIER Transcribed Date/Time: 07/13/22 8:40 am * Exam Date Time Procedure Performing Provider Status 07/13/22 5:34 AM US Liver Bindu Suarez; Auth (V erified) Notes: (US Liver) Reason For Exam: Cirrhosis, abd pain per md RESULT: US Liver US Liver Reason: Cirrhosis, abd pain per md; Clinical Question(s): Cirrhosis COMPARISON: CT from June 19, 2021 IMAGING TECHNIQUE: Grayscale and color Doppler ultrasound examination of the liver. FINDINGS: Liver: Coarse hepatic echotexture. No suspicious lesion. Smooth hepatic contour. Main portal vein patent with normal hepatopetal direction of flow. Biliary Tree: No intrahepatic or extrahepatic bile duct dilation is identified. Common duct: 0.5 cm. IMPRESSION: Coarse hepatic echotexture likely due to underlying hepatocellular disease. No suspicious lesion. WSN: [id number] Ordering Physician: Miguel Michele Dictated By: Elvin Farrell MD Dictated Date/Time: 07/13/22 7:08 am Reviewed By: Elvin Farrell MD Signed By: Elvin Farrell MD Signed Date/Time: 07/13/22 7:08 am Transcribed By: REINIER Transcribed Date/Time: 07/13/22 7:07 am * Exam Date Time Procedure Performing Provider Status 07/12/22 10:[address] Cervical Spine W/O Contrast Alissa Torres; Auth (Verified) Notes: (CT Cervical Spine W/O Contrast) Reason For Exam: Neck trauma, dangerous injury mechanism;Other: RESULT: CT Cervical Spine W/O Contrast CT Head/Brain W/O Contrast, CT Maxillofacial W/O Contrast, CT Cervical Spine W/O Contrast CLINICAL INDICATION: Intoxication. Left temporal lacerations. Patient covered in blood with no memory of injury. PRIOR EXAMS: No prior exam.. TECHNIQUE: Incremental CT scan through the head and spiral CT through the face and cervical spine without contrast, formatted in multiple planes. The cervical and facial portions of the exam were performed with automatic exposure control. RADIATION DOSE PARAMETERS: CTDIvol Body: 14.20 mGy, DLP Body: 361 mGy*cm. CTDIvol Head: 41.60 mGy, DLP Head: 671 mGy*cm. FINDINGS: BRAIN: There is no infarct. There is no intracerebral hemorrhage. There is no mass. VENTRICLES AND SULCI: The ventricles and sulci are symmetrical and normal. WHITE MATTER: No white matter abnormality. EXTRA AXIAL SPACES: There is no abnormal epidural, subdural, or subarachnoid blood or fluid. SKULL: There is no skull fracture.. TEMPORAL BONES: The mastoid air cells are clear, as are the middle ear cavities. CERVICAL VERTEBRAL BODIES: There is no fracture. There is no focal bony lesion.. ALIGNMENT OF CERVICAL SPINE: The cervical vertebral bodies are in normal alignment.. CERVICAL DEGENERATIVE CHANGES: There are no degenerative changes. LUNG APICES: No pneumothorax. MANDIBLE: No fracture or focal lesion. Temporomandibular joints normal.. OTHER FACIAL BONES: The other facial bones show no fracture. SOFT TISSUES OF ORBITS: The soft tissue contents of the orbital cavity are normal bilaterally, including intact globes. PARANASAL SINUSES: Clear. OTHER SOFT TISSUES: No hematoma or other abnormality.. IMPRESSION: HEAD 1. No acute intracranial abnormality.. 2. No skull fracture. CERVICAL SPINE: 1. There is no fracture. There is no focal bony lesion. 2. Normal alignment. 3. No degenerative changes. MAXILLOFACIAL: 1. No facial bone fracture. 2. Soft tissue contents of the orbits are intact. 3. No large soft tissue hematoma or opaque foreign body. WSN: [id number] Ordering Physician: Shreyas Guido Dictated By: Pipo Oneill MD Dictated Date/Time: 07/12/22 10:33 a Reviewed By: Pipo Oneill MD Signed By: Pipo Oneill MD Signed Date/Time: 07/12/22 10:33 am Transcribed By: REINIER Transcribed Date/Time: 07/12/22 10:21 am * Exam Date Time Procedure Performing Provider Status 07/12/22 10:[address] Maxilloface W/O Contrast Alissa Spivey i; Auth (Verified) Notes: (CT Maxilloface W/O Contrast) Reason For Exam: Trauma RESULT: CT Maxilloface W/O Contrast CT Head/Brain W/O Contrast, CT Maxillofacial W/O Contrast, CT Cervical Spine W/O Contrast CLINICAL INDICATION: Intoxication. Left temporal lacerations. Patient covered in blood with no memory of injury. PRIOR EXAMS: No prior exam.. TECHNIQUE: Incremental CT scan through the head and spiral CT through the face and cervical spine without contrast, formatted in multiple planes. The cervical and facial portions of the exam were performed with automatic exposure control. RADIATION DOSE PARAMETERS: CTDIvol Body: 14.20 mGy, DLP Body: 361 mGy*cm. CTDIvol Head: 41.60 mGy, DLP Head: 671 mGy*cm. FINDINGS: BRAIN: There is no infarct. There is no intracerebral hemorrhage. There is no mass. VENTRICLES AND SULCI: The ventricles and sulci are symmetrical and normal. WHITE MATTER: No white matter abnormality. EXTRA AXIAL SPACES: There is no abnormal epidural, subdural, or subarachnoid blood or fluid. SKULL: There is no skull fracture.. TEMPORAL BONES: The mastoid air cells are clear, as are the middle ear cavities. CERVICAL VERTEBRAL BODIES: There is no fracture. There is no focal bony lesion.. ALIGNMENT OF CERVICAL SPINE: The cervical vertebral bodies are in normal alignment.. CERVICAL DEGENERATIVE CHANGES: There are no degenerative changes. LUNG APICES: No pneumothorax. MANDIBLE: No fracture or focal lesion. Temporomandibular joints normal.. OTHER FACIAL BONES: The other facial bones show no fracture. SOFT TISSUES OF ORBITS: The soft tissue contents of the orbital cavity are normal bilaterally, including intact globes. PARANASAL SINUSES: Clear. OTHER SOFT TISSUES: No hematoma or other abnormality.. IMPRESSION: HEAD 1. No acute intracranial abnormality.. 2. No skull fracture. CERVICAL SPINE: 1. There is no fracture. There is no focal bony lesion. 2. Normal alignment. 3. No degenerative changes. MAXILLOFACIAL: 1. No facial bone fracture. 2. Soft tissue contents of the orbits are intact. 3. No large soft tissue hematoma or opaque foreign body. WSN: [id number] Ordering Physician: Shreyas Guido Dictated By: Pipo Oneill MD Dictated Date/Time: 07/12/22 10:33 a Reviewed By: Pipo Oneill MD Signed By: Pipo Oneill MD Signed Date/Time: 07/12/22 10:33 am Transcribed By: REINIER Transcribed Date/Time: 07/12/22 10:21 am * Exam Date Time Procedure Performing Provider Status 07/12/22 10:[address] Head/Brain W/O Contrast Cleveland Straussson; Auth (Verified) Notes: (CT Head/Brain W/O Contrast) Reason For Exam: Trauma RESULT: CT Head/Brain W/O Contrast CT Head/Brain W/O Contrast, CT Maxillofacial W/O Contrast, CT Cervical Spine W/O Contrast CLINICAL INDICATION: Intoxication. Left temporal lacerations. Patient covered in blood with no memory of injury. PRIOR EXAMS: No prior exam.. TECHNIQUE: Incremental CT scan through the head and spiral CT through the face and cervical spine without contrast, formatted in multiple planes. The cervical and facial portions of the exam were performed with automatic exposure control. RADIATION DOSE PARAMETERS: CTDIvol Body: 14.20 mGy, DLP Body: 361 mGy*cm. CTDIvol Head: 41.60 mGy, DLP Head: 671 mGy*cm. FINDINGS: BRAIN: There is no infarct. There is no intracerebral hemorrhage. There is no mass. VENTRICLES AND SULCI: The ventricles and sulci are symmetrical and normal. WHITE MATTER: No white matter abnormality. EXTRA AXIAL SPACES: There is no abnormal epidural, subdural, or subarachnoid blood or fluid. SKULL: There is no skull fracture.. TEMPORAL BONES: The mastoid air cells are clear, as are the middle ear cavities. CERVICAL VERTEBRAL BODIES: There is no fracture. There is no focal bony lesion.. ALIGNMENT OF CERVICAL SPINE: The cervical vertebral bodies are in normal alignment.. CERVICAL DEGENERATIVE CHANGES: There are no degenerative changes. LUNG APICES: No pneumothorax. MANDIBLE: No fracture or focal lesion. Temporomandibular joints normal.. OTHER FACIAL BONES: The other facial bones show no fracture. SOFT TISSUES OF ORBITS: The soft tissue contents of the orbital cavity are normal bilaterally, including intact globes. PARANASAL SINUSES: Clear. OTHER SOFT TISSUES: No hematoma or other abnormality.. IMPRESSION: HEAD 1. No acute intracranial abnormality.. 2. No skull fracture. CERVICAL SPINE: 1. There is no fracture. There is no focal bony lesion. 2. Normal alignment. 3. No degenerative changes. MAXILLOFACIAL: 1. No facial bone fracture. 2. Soft tissue contents of the orbits are intact. 3. No large soft tissue hematoma or opaque foreign body. WSN: [id number] Ordering Physician: Shreyas Guido Dictated By: Pipo Oneill MD Dictated Date/Time: 07/12/22 10:33 a Reviewed By: Pipo Oneill MD Signed By: Pipo Oneill MD Signed Date/Time: 07/12/22 10:33 am Transcribed By: REINIER Transcribed Date/Time: 07/12/22 10:21 am Vital Signs Most recent to oldest [Reference Range]: 1 2 3 Height 173 cm (07/15/22 11:29 AM) 173 cm (07/15/22 7:30 AM) 173 cm (07/14/22 11:48 PM) Weight 73.5 kg (07/13/22 10:50 PM) 73.5 kg (07/13/22 10:36 PM) Oxygen Saturation [94-100 %] 100 % (07/15/22 11:29 AM) 100 % (07/15/22 7:30 AM) 99 % (07/14/22 11:48 PM) Pulse Rate [55-90 bpm] 68 bpm (07/15/22 11:29 AM) 62 bpm (07/15/22 7:30 AM) 61 bpm (07/14/22 11:48 PM) Body Mass Index [18.5-24.99 kg/m2] 24.56 kg/m2 (07/13/22 10:50 PM) Blood Pressure [90-138/55-84 mm Hg] 134/88mm Hg (07/15/22 11:29 AM) 112/74mm Hg (07/15/22 7:30 AM) 112/60mm Hg (07/14/22 11:48 PM) Respiratory Rate [16-30 br/min] 18 br/min (07/15/22 11:29 AM) 16 br/min (07/15/22 7:30 AM) 18 br/min (07/14/22 11:48 PM) Temperature [96.8-100.4 DegF] 97.8 DegF (07/15/22 11:29 AM) 97.6 DegF (07/15/22 7:30 AM) 97.6 DegF (07/14/22 11:48 PM) Mode of Delivery (Oxygen) Room air (07/15/22 11:29 AM) Room air (07/15/22 7:30 AM) Room air (07/14/22 11:48 PM) Blood pressure sites Arm, left (07/15/22 11:29 AM) Arm, right (07/15/22 7:30 AM) Arm, left (07/14/22 11:48 PM) Temperature Route Oral (07/15/22 11:29 AM) Oral (07/15/22 7:30 AM) Oral (07/14/22 11:48 PM) Dry Weight 73.5 kg (07/13/22 10:50 PM) Weight Obtained Via Bed scale (07/13/22 10:50 PM) Dry Weight Obtained Via Bed scale (07/13/22 10:50 PM) Social History Social History Type Response Smoking Status Never (less than 100 in lifetime) entered on: 07/17/21 Sex History and physical note * Ryne SHAFFER, Miguel Worley: PERFORM Event Display: History and Physical Hospital Authored Date: Patient: ??JULIOCESAR COLÓN ? Age:??36 Years?Sex:??Male?:??1985?? Chief Complaint/Reason for Consultation Patient well knownt to EMS, daily drinker. Per EMS patient father went to check on him and found him covered in dried blood with a laceration to the face. Patient intoxciated, states he fell into thecorner of a table, but does not remember when or LOC History of Present Illness 07/12/2022 ?? 36-year-old male with PMH including alcohol dependence, alcohol withdrawal, HTN, anxiety, depression. ??Patient was brought to ER due to alcohol intoxication and fall. ?? The patient states that he was in a correctional facility until about 2 weeks ago. ??After coming out he started drinking alcohol, and has been drinking heavily since. ??He says that he drinks about a liter of vodka daily. ??Then he fell down at home yesterday. ??Patient does not recall exactly howhe fell down but thinks it was due to intoxication. ??He also thinks he may have ate something on his head on his way down, led to some bleeding and erythema/swelling on the left eye. ??Does not complain of any chest pain prior to the fall. ??Then earlier today his father found him covered in bloodand called EMS. ?? In ER patient was afebrile, blood pressure stable, was tachycardic 130s, currently down to 100s, yousif room air. ??His labs shows mild anemia 13.3, normal BMP, elevated liver enzymes AST 70 and ALT 112, TSH and low 0.33, alcohol level 296, urine positive for barbiturates. ??COVID-negative. ??EKG showed sinus rhythm with heart rate of 106, QTc 446. ?? CT scan of the head, C-spine, maxillofacial: IMPRESSION: HEAD 1. No acute intracranial abnormality. 2. No skull fracture. CERVICAL SPINE: 1. There is no fracture. There is no focal bony lesion. 2. Normal alignment. 3. No degenerative changes. MAXILLOFACIAL: 1. No facial bone fracture. 2. Soft tissue contents of the orbits are intact. 3. No large soft tissue hematoma or opaque foreign body. ?? Patient was given phenobarbital for withdrawal. ??Patient was placed in CIWA protocol. ??Patient received 1 L IV fluid. ??Patient admitted for further management. ? PMH: As above Social history: Patient denies tobacco/drugs. ??He drinks 1 L of vodka daily. Family history: No history of heart disease. ?? Review of Systems All systems reviewed and negative except as in HPI. Objective ? Vital Signs?? Temperature: 98.8 DegF (07/12/22 20:38:00) Temperature: 98.8 DegF (07/12/22 20:38:00) Temperature Route: Oral (07/12/22 20:38:00) Temperature Route: Oral (07/12/22 20:38:00) Pulse Rate:??109 bpm??High (07/12/22 20:38:00) Pulse Rate:??109 bpm??High (07/12/22 20:38:00) Respiratory Rate: 20 br/min (07/12/22 20:38:00) Respiratory Rate: 18 br/min (07/12/22 20:38:00) Vented: No (07/12/22 20:38:00) Systolic Blood Pressure:??151 mm Hg??High (07/12/22 20:38:00) Systolic Blood Pressure:??151 mm Hg??High (07/12/22 20:38:00) Diastolic Blood Pressure:??98 mm Hg??High (07/12/22 20:38:00) Diastolic Blood Pressure:??98 mm Hg??High (07/12/22 20:38:00) Blood pressure sites: Arm, right (07/12/22 20:38:00) Mean Arterial Pressure: 97 mm Hg (07/12/22 09:58:00) Pulse Pressure: 53 mm Hg (07/12/22 20:38:00) Oxygen Saturation: 100 % (07/12/22 20:38:00) Mode of Delivery (Oxygen): Room air (07/12/22 20:38:00) Early Warning Score: 1 (07/12/22 21:41:27) ? Physical Exam Constitutional: ??Alert,??no acute distress, co-operative, lying on the bed, saturating well on room air. ?? Mental state: Oriented Head:?Bruise around the left eye, no discharge. Dried blood around a small laceration belwo the left eye. Eye:?No discharge. ENT: No discharge. Neck: ??Supple,??no JVD. Cardiovascular: ??S1, S2. Regular rhythm. No MRG. Respiratory: ??Lungs are clear to auscultation b/l, No RRR. ?? Gastrointestinal: ??Soft, Nontender, Non distended, ??Normal bowel sounds.?? Genitourinary: No costovertebral angle tenderness. Neurological: ??Cranial nerves intact. Motor and sensory intact. Cerebellar function intact. Back: ??Nontender. Musculoskeletal: ??Normal ROM.?? No edema Hematology: No lymphadenopathy Skin: ??Warm, dry. Psychiatric: ??Cooperative.?? Assessment/Plan Diagnoses Alcohol abuse ??(F10.10) Alcohol withdrawal ??(F10.939) Fall ??(W19.XXXA) ?? Assessment:??36-year-old male with PMH including alcohol dependence, alcohol withdrawal, HTN, anxiety, depression. Patient was brought to ER due to alcohol intoxication and fall. ?? Alcohol abuse (F10.10):??. Alcohol withdrawal (F10.939):??. Fall (W19.XXXA):??. Patient??has been drinking heavily over the last 2 weeks,??and fell down??several times, likely from intoxication. ??Was found by his father??covered in blood??early in the morning. ??EMS was called.??Patient unable to tell me exactly how he fell down. ?? Continue??to monitor under CIWA protocol. Continue phenobarbital??as per protocol. Monitor and replace thiamine, folic acid,??pyridoxine, multivitamins. We will check magnesium level. Continue iv fluid hydration, monitor I/O and daily weight. Counseling provided. 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 Patient??fell down at home, likely due to intoxication. We will check??for any arrhythmia with??telemetry. Check??troponin. Check orthostatic vitals. Check??chest x-ray??for any infection. Low??TSH noted, will check free T4. ?? Transaminitis: Likely due to alcohol use. We will check??bilirubin level and??alkaline phosphatase. We will check??right upper quadrant ultrasound. ?? Home meds: Anxiety/depression/psych: Continue??fluoxetine,??bupropion, trazodone. HTN: Continue amlodipine. GERD: Continue PPI. ?? VTE Prophylaxis:??SCD ?VTE Prophylaxis Assessment:??VTE Prophylaxis Ordered ?? Code Status:??full code ?Order Code Status:??Code Status Ordered ?? Discharge Planning:? Histories Allergies Allergies ?(Active and Proposed Allergies Only) NKA? (Severity: Unknown severity, Onset: Unknown) ? Past Medical History/Problem List Active Problems??(6) Essential Hypertension Fatty liver 2020 H/O herpes zoster Hyperlipidemia Impaired fasting glucose Major depression in full remission ? Past Surgical History Reference laboratory ER [facility]: 10/29/21 Electrocardiogram: 07/17/21 CT of abdomen and pelvis nad: 05/06/21 Electrocardiogram sinus: 05/03/21 Reference laboratory ER [facility]: 03/22/21 Reference laboratory: 01/06/21 Ultrasound of abdominal - Echogenic liver likely fatty infiltration: 01/05/21 Ultrasound scan of [place] liver fatty ;iver : 01/04/21 CT of brain /c spine nad: 07/06/19 CT angiography of thorax/abd/pelvs nad: 07/06/19 EKG sinus: 07/02/19 EK06/30/19 Reference laboratory: 06/30/19 Reference (Outside) Laboratory: 05/31/19 CT of thorax nad: 05/03/19 EKGsinus 130 normal pr qtc ??qrs nonspecific st t: 03/19/19 Reference laboratory: 03/19/19 Chest X-ray nad: 03/19/19 Electrocardiogram, routine ECG with at least 12 leads; with interpretation and report: 05/02/17 Reference (Outside) Laboratory: 05/02/17 Electrocardiogram, routine ECG with at least 12 leads; with interpretation and report: 11/01/14 Ambulatory blood pressure monitoring, utilizing a system such as magnetic tape and/or computer disk, for 24 hours or longer; including recording, scanning analysis, interpretation and report: 06/11/10 Computed tomography, abdomen; with contrast material(s): 05/16/10 Duplex kidney: 04/24/10 Echocardiography, transthoracic, real-time with image documentation (2D), includes M-mode recording, when performed, complete, with spectral Doppler echocardiography, and with color flow Doppler echocardiography: 04/22/10 Electrocardiogram, routine ECG with at least 12 leads; interpretation and report only: 04/16/10 ? Social History Alcohol Details:??Use: Current. ??Frequency: Daily. 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 ??Alcohol use interferes with work or home: Yes. ??Drinks more than intended: Yes. ??Others hurt by drinking: No. ??Binge drinking: Yes. Details:??Use: Current. ??Frequency: Daily. ??Type: Beer, Liquor. Details:??Use: Current. ??Frequency: Daily. ??Type: Liquor. Details:??Use: Current. ??Frequency: Daily. ??Type: Beer, Liquor. ??Alcohol use interferes with work or home: Yes. ??Drinks more than intended: Yes. ??Others hurt by drinking: No. ??Binge drinking: Yes. Employment/School Details:??Status: Employed. Details:??Status: Employed. 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 Exercise Details:??Self assessment: Good condition. ??Other: peloton. ??Regular exercise: Yes. ??Exercise frequency: 3-4 times/week. ??Exercise type: Aerobics, Weight lifting. Home/Environment Details:??Living situation: Home/Independent. ??Lives with: Alone. Details:??Living situation: Home/Independent. ??Lives with: Alone. Details:??Living situation: Home/Independent. ??Lives with: Alone. Nutrition/Health Details:??Diet: Regular. Details:??Diet: Regular. Details:??Diet: Regular, Low sodium. Other Details:??Name: uses seat belt always/. Sexual Details:??Sexually involved in last 6 months: No. ??Other sexual concerns: only safe sex. ??STD/HIVprevention: Condom use 100% of the time. Substance Abuse Details:??Use: Never. Details:??Use: Never. ??Other: CBD OIL. Details:??Use: Never. Tobacco Details:??Use: Never (less than 100 in lifetime). Details:??Use: Never (less than 100 in lifetime). Details:??Use: Never smoker. Electronic Cigarette/Vaping Details:??Electronic Cigarette Use: Never. Details:??Electronic Cigarette Use: Never. ? Family History Mother: Alcoholism; Hypertension Father: Alcoholism; Hypertension Mat. Grandmother: Hyperlipidemia; Hypertension; Stroke Other: Hypertension Pat. Grandfather: Cancer of lung ? Medications Home Medications Acamprosate (acamprosate 333 mg oral delayed release tablet)?666?Milligram?By Mouth?3 times a day with meals Amlodipine (amLODIPine 5 mg oral tablet)?5?Milligram?1?tablet?By Mouth?Daily?as needed?for 30?Days?Please resume amlodipine 5mg PO daily if BP > 140/90.?Blood Pressure BusPIRone (busPIRone 30 mg oral tablet)?1?tab(s)?30?Milligram?By Mouth?2 times a day Clonidine (cloNIDine 0.2 mg oral tablet)?1?tablet?By Mouth?Daily at bedtime Clonidine (cloNIDine 0.1 mg oral tablet)?0.1?Milligram?1?tablet?By Mouth?Daily?is morning Diazepam (Valium 5 mg oral tablet)?2.5?Milligram?0.5?tablet?By Mouth?Once?Please give valium 2.5 mg PO once at 21:00 pm ( 12/08/21) Fluoxetine (FLUoxetine 20 mg oral capsule)?40?Milligram?2?capsule?By Mouth?Daily Folic Acid (folic acid 1 mg oral tablet)?1?Milligram?1?tablet?By Mouth?Daily HydrOXYzine (hydrOXYzine hydrochloride 50 mg oral tablet)?1?tab(s)?50?Milligram?By Mouth?2 times a day?as needed?for anxiety Lorazepam (LORazepam 1 mg oral tablet)?1?tab(s)?1?Milligram?By Mouth?3 times a day?as needed?Anxiety?for 14?Days Melatonin (melatonin 10 mg oral tablet)?1?tab(s)?10?Milligram?By Mouth?Daily at bedtime?as needed?as needed for insomnia Multivitamin (multivitamin Multiple Vitamins oral tablet)?1?tab(s)?By Mouth?Daily?for 30?Days Naltrexone (naltrexone 50 mg oral tablet)?1?tab(s)?50?Milligram?By Mouth?Daily Omeprazole (omeprazole 20 mg oral enteric coated capsule)?1?capsule?20?Milligram?By Mouth?2 times a day?before a meal Pyridoxine (Pyridoxine Tablet)?50?Milligram?By Mouth?Daily Thiamine (thiamine 100 mg oral tablet)?100?Milligram?1?tablet?By Mouth?2 times a day Trazodone (traZODone 50 mg oral tablet)?1?tablet?By Mouth?Daily at bedtime?as needed? NEEDED FOR INSOMNIA ? Inpatient Medications Medications (19) Active SCHEDULED: (10) BusPIRone 10 mg Tablet (busPIRone 10 mg oral tablet) ??30 mg, By Mouth, 2 times a day Fluoxetine 20 mg Capsule (FLUoxetine 20 mg oral capsule) ??40 mg, By Mouth, Daily Folic Acid 1 mg Tablet (Folic Acid Tablet) ??1 mg, By Mouth, Daily Multivitamin Tablet ??1 tablet, By Mouth, Daily NaCl 0.9% Flush 3ml (NaCL 0.9% Flush) ??3 mL, IV Push, Every 8 hours Pantoprazole 40 mg EC Tablet (pantoprazole 40 mg oral delayed release tablet) ??40 mg, By Mouth, Daily Pyridoxine 50 mg Tablet (Pyridoxine Tablet) ??50 mg, By Mouth, Daily Thiamine 100 mg IVPB (Thiamine IVPB) ??400 mg 4 mL, IVPB, Every 8 hours Thiamine 100 mg IVPB (Thiamine IVPB) ??400 mg 4 mL, IVPB, Daily Thiamine 100 mg Tablet (thiamine 100 mg oral tablet) ??100 mg, By Mouth, 2 times a day CONTINUOUS: (1) NaCL 0.9% (1000 mL) Cont IV 1,000 mL (0.9% NaCL 1,000 mL) ??1,000 mL, IV Infusion, 75 mL/hr PRN: (8) Acetaminophen 325 mg Tablet (Acetaminophen Tablet) ??650 mg, By Mouth, Every 4 hours Amlodipine 5 mg Tablet (amLODIPine 5 mg oral tablet) ??5 mg, By Mouth, Daily Melatonin 3 mg Tablet (Melatonin Tablet) ??3 mg, By Mouth, Daily at bedtime NaCl 0.9% Flush 3ml (NaCL 0.9% Flush) ??3 mL, IV Push, Every 8 hours Ondansetron 2mg/mL Inj (2mL Vial) (Zofran Inj) ??4 mg, IV Push, Every 6 hours Phenobarbital 65 mg/mL Inj (Phenobarbital Inj) ??65 mg 1 mL, IV Push, Every 2 hours Senna 8.6 mg / Docusate 50 mg tablet (Docusate/Senna Tablet) ??1 tablet, By Mouth, 2 times a day Trazodone 50 mg Tablet (traZODone 50 mg oral tablet) ??50 mg, By Mouth, Daily at bedtime ? Results Recent Labs BLOOD COUNT & DIFF WBC 8.6 k/mm3 ()?? 07/12/2022 09:46 RBC 4.45 m/mm3 (Low)?? 07/12/2022 09:46 Hgb 13.3 Gm/dL (Low)?? 07/12/2022 09:46 Hct 38.1 % (Low)?? 07/12/2022 09:46 MCV 85.6 femtoliters ()?? 07/12/2022 09:46 MCH 29.9 pg ()?? 07/12/2022 09:46 MCHC 34.9 g/dL ()?? 07/12/2022 09:46 Platelet Count 193 k/mm3 ()?? 07/12/2022 09:46 RDW-SD 40.0 femtoliters ()?? 07/12/2022 09:46 MPV 9.2 femtoliters (Low)?? 07/12/2022 09:46 Nucleated RBC (Automated) 0.0 #/100 WBC'S ()?? 07/12/2022 09:46 Abs. NRBC 0.0 k/mm3 ()?? 07/12/2022 09:46 Abs. Neut 6.2 k/mm3 ()?? 07/12/2022 09:46 Abs. Lymph 1.8 k/mm3 ()?? 07/12/2022 09:46 Abs. Huron 0.6 k/mm3 ()?? 07/12/2022 09:46 Abs. Eo 0.0 k/mm3 ()?? 07/12/2022 09:46 Abs. Baso 0.0 k/mm3 ()?? 07/12/2022 09:46 Neut % 72.3 % ()?? 07/12/2022 09:46 Lymph % 20.7 % ()?? 07/12/2022 09:46 [place] % 6.4 % ()?? 07/12/2022 09:46 Eos % 0.1 % ()?? 07/12/2022 09:46 Baso % 0.3 % ()?? 07/12/2022 09:46 Imm Gran 0.2 % ()?? 07/12/2022 09:46 Abs. Imm Gran 0.0 k/mm3 ()?? 07/12/2022 09:46 ?? CHEM GENERAL Sodium 142 mmol/L ()?? 07/12/2022 09:46 Potassium 3.8 mmol/L ()?? 07/12/2022 09:46 Chloride 100 mmol/L ()?? 07/12/2022 09:46 Bicarbonate Level 26 mmol/L ()?? 07/12/2022 09:46 Anion Gap 16 ()?? 07/12/2022 09:46 Glucose Level 97 mg/dL ()?? 07/12/2022 09:46 Glucose, POC 88 mg/dL ()?? 07/12/2022 09:52 BUN 12 mg/dL ()?? 07/12/2022 09:46 Creatinine-Blood 0.8 mg/dL ()?? 07/12/2022 09:46 Estimated GFR Creatinine 118 ML/MIN/1.73 M2 ()?? 07/12/2022 09:46 AST (SGOT) 70 units/L (High)?? 07/12/2022 09:46 ALT (SGPT) 112 units/L (High)?? 07/12/2022 09:46 ?? COAG INR 1.0 ()?? 07/12/2022 09:46 Protime (PT) 10.3 seconds ()?? 07/12/2022 09:46 ?? ENDOCRINE/TUMOR MARKER TSH 0.33 uIU/mL (Low)?? 07/12/2022 09:46 ?? TOXICOLOGY/TDM Ethanol, Serum or Plasma 296 mg/dL (Abnormal)?? 07/12/2022 09:46 Barbiturate Screen, Urine POSITIVE (Abnormal)?? 07/12/2022 17:23 Cannabinoid Screen, Urine NONE DETECTED ()?? 07/12/2022 17:23 Cocaine Metabolite Screen, Urine NONE DETECTED ()?? 07/12/2022 17:23 Benzodiazepine Screen, Urine NONE DETECTED ()?? 07/12/2022 17:23 Amphetamine Screen, Urine NONE DETECTED ()?? 07/12/2022 17:23 Opiate Screen, Urine NONE DETECTED ()?? 07/12/2022 17:23 ?? VIROLOGY COVID-19 by RT-PCR NEGATIVE ()?? 07/12/2022 17:23 ? Microbiology ?? COVID-19 (Novel Coronavirus), Rapid PCR?? Completed?? Source: Nasal Body Site: Nose Collected Dt/Tm: 07/12/2022 14:36 Last Updated Dt/Tm: 07/12/2022 18:34 ? EKG study * Event Display: ECG 12-Lead Authored Date: Please click on pdf link to open report * Event Display: ECG 12-Lead Authored Date: Ventricular Rate: 106 BPM Atrial Rate: 106 BPM P-R Interval: 142 ms QRS Duration: 80 ms Q-T Interval: 336 ms QTC Calculation(Bazett): 446 ms P Homer: 34 degrees R Homer: 11 degrees T Homer: 27 degrees Sinus tachycardia Otherwise normal ECG When compared with ECG of 05-DEC-2021 22:24, Nonspecific T wave abnormality now evident in Inferior leads Confirmed by CHRISTINA GAR ([id number]) on 07/15/2022 12:39:06 PM [place]: CHRISTINA GAR [facility] Progress note * Clarisa Leon RN: MODIFY, SIGN, VERIFY, PERFORM Event Display: Progress Note Hospital Authored Date: Patient: JULIOCESAR COLÓN Age: 36 years Sex: Male : 1985 Associated Diagnoses: None Author: Clarisa Leon RN Findings Problem Related to Alteration in Psychosocial : Alteration in Psychosocial Function/new 07/15/2022 2:00 EST Alteration in Psychosocial Related to Acute Alcohol Withdrawal Goals & Outcomes, Psychosocial Psychosocial support will be provided to Pt/S.O. as needed, Pt will identify stressors leading up to event, Pt will state importance of adhering to medication regime, Pt/caregiver will be offered appropriate resources & support, Pt/caregiver will express feelings/needs/fears /concerns, Pt/caregiver will maintain/obtain psychological stability, Pt/caregiver will participate in coping skill counseling, Pt successfully withdraws with minimal side effects, Encourage patient to attend NA/AA meetings, Pt will be free from withdrawal symptoms, Pt will develop plan for sobriety after discharge, Pt will show motivation for recovery, Pt will verbalize ways to prevent relapse Interventions, Psychosocial Assess psychosocial needs, Assess readiness to learn needed lifestyle changes, Assess/monitor level of consciousness, Collaborate with provider for psychiatric consult, Evaluate resources & support system available to pt, Provide a calm, supportive environment, Provide chances to express concerns/emotions/expectations, Provide info on community resources for education, support, Identify complications of chronic alcohol use, Assess for complications related to acute alcohol withdrawal, Determine pt's stage of withdrawal as per CIWA scale, Encourage pt to continue to detox, Initiate & maintain Seizure Precautions, Minimize stimulation, Minimize stressors, Offer clergy, AA sponsor, counselor support Goals/Interventions, Psychosocial Yes Psychosocial, Problem Start 07/13/2022 23:00 Reviewed Plan with, Psychosocial Patient Patient Progression, Psychosocial Pt progressing according to plan . Nursing Data Cardiac Data. : Cardiac Data. 07/14/2022 21:00 EST Cardiovascular Symptoms Hypertension Nail Bed Color, Fingers Chassell Nail Bed Color, Toes Chassell Skin Temperature Upper Extremities Warm Skin Temperature Lower Extremities Warm Capillary Refill < 3 seconds Radial Pulse, Left Normal Radial Pulse, Right Normal Dorsalis Pedis Pulse, Left Normal Dorsalis Pedis Pulse, Right Normal library monitor No Cardiovascular WNL except . Vital Signs : VITAL SIGNS SECTION 07/14/2022 19:43 EST Early Warning Score 3.00 07/14/2022 19:43 EST Temperature 98.1 DegF Temperature Route Oral Pulse Rate 77 bpm Respiratory Rate 18 br/min Systolic Blood Pressure 139 mm Hg H Diastolic Blood Pressure 75 mm Hg Blood pressure sites Arm, left Mean Arterial Pressure 96 mm Hg Pulse Pressure 64 mm Hg Oxygen Saturation 100 % Mode of Delivery (Oxygen) Room air . Evaluation Pt. is alert and orientated x 3. calm and cooperative with care. Pt. denies any sob, dizziness,chest pain or nausea. pt. c/o slight headache and pain in the right flank. states patch worked well for the pain. Pt. remains on IVF going at 75ml/hr. CIWA score 1. Pt. has bruising and laceration on his left eye denies any pain. See full assessment in cis. will continue to monitor and report any changes. . * Dominique Guthrie MD: PERFORM Event Display: Progress Note Hospital Authored Date: Patient: ??JULIOCESAR COLÓN ? Age:??36 Years?Sex:??Male?:??1985?? Subjective Patient was seen and examined at bedside Improved withdrawal symptoms On Valium taper Addiction medicine consult pending, expresses strong interest in alcohol rehab. ?? Review of Systems All systems were reviewed and found to be negative except for the ones mentioned in HPI Objective Vital Signs?? Temperature: 97.7 DegF (07/14/22 07:00:00) Temperature Route: Oral (07/14/22 07:00:00) Pulse Rate: 64 bpm (07/14/22 07:00:00) Respiratory Rate: 18 br/min (07/14/22 07:00:00) Vented: No (07/13/22 19:00:00) Systolic Blood Pressure: 132 mm Hg (07/14/22 07:00:00) Diastolic Blood Pressure: 74 mm Hg (07/14/22 07:00:00) Blood pressure sites: Arm, left (07/14/22 07:00:00) Mean Arterial Pressure: 103 mm Hg (07/13/22 22:50:00) Pulse Pressure: 58 mm Hg (07/14/22 07:00:00) Oxygen Saturation: 96 % (07/14/22 07:00:00) Mode of Delivery (Oxygen): Room air (07/14/22 07:00:00) Early Warning Score: 5 (07/14/22 07:35:40) ? Intake/Output? 07/12 09:05 07/14 07:00 07/13 07:00 07/12 07:00 07/11 07:00 ?? 07/14 12:14 07/14 12:14 07/14 06:59 07/13 06:59 07/12 06:59 Intake ? 2712 ?540 ? 1664 ?508 ?0 Output ? 2100 ?900 ? 1200 ?0 ?0 Net Total ?612 ? -360 ?464 ?508 ?0 ? Physical Exam General: Lying comfortably in bed, no evident distress Cardiac: S1 + S2 + 0, no murmurs heard Respiratory: CTA, No wheezes, Rales or crackles heard Abdomen: soft, nondistended, nontender Extremities: No edema or cyanosis present Neurological: AO X 3 , cranial nerves grossly normal?? Results Recent Labs BLOOD COUNT & DIFF WBC 3.8 k/mm3 (Low)?? 07/14/2022 01:31 RBC 3.56 m/mm3 (Low)?? 07/14/2022 01:31 Hgb 10.7 Gm/dL (Low)?? 07/14/2022 01:31 Hct 30.7 % (Low)?? 07/14/2022 01:31 MCV 86.2 femtoliters ()?? 07/14/2022 01:31 MCH 30.1 pg ()?? 07/14/2022 01:31 MCHC 34.9 g/dL ()?? 07/14/2022 01:31 Platelet Count 158 k/mm3 ()?? 07/14/2022 01:31 RDW-SD 39.8 femtoliters ()?? 07/14/2022 01:31 MPV 10.0 femtoliters ()?? 07/14/2022 01:31 Nucleated RBC (Automated) 0.0 #/100 WBC'S ()?? 07/14/2022 01:31 Abs. NRBC 0.0 k/mm3 ()?? 07/14/2022 01:31 Abs. Neut 3.9 k/mm3 ()?? 07/13/2022 06:45 Abs. Lymph 0.9 k/mm3 ()?? 07/13/2022 06:45 Abs. Huron 1.0 k/mm3 ()?? 07/13/2022 06:45 Abs. Eo 0.0 k/mm3 ()?? 07/13/2022 06:45 Abs. Baso 0.0 k/mm3 ()?? 07/13/2022 06:45 Neut % 66.7 % ()?? 07/13/2022 06:45 Lymph % 15.0 % ()?? 07/13/2022 06:45 [place] % 17.4 % (High)?? 07/13/2022 06:45 Eos % 0.3 % ()?? 07/13/2022 06:45 Baso % 0.3 % ()?? 07/13/2022 06:45 Imm Gran 0.3 % ()?? 07/13/2022 06:45 Abs. Imm Gran 0.0 k/mm3 ()?? 07/13/2022 06:45 ?? CARDIAC High Sensitivity Troponin (HSTnT) 8 ng/L ()?? 07/13/2022 06:45 ?? CHEM GENERAL Sodium 138 mmol/L ()?? 07/14/2022 01:31 Potassium 3.7 mmol/L ()?? 07/14/2022 01:31 Chloride 102 mmol/L ()?? 07/14/2022 01:31 Bicarbonate Level 24 mmol/L ()?? 07/14/2022 01:31 Anion Gap 12 ()?? 07/14/2022 01:31 Glucose Level 90 mg/dL ()?? 07/13/2022 06:45 BUN 7 mg/dL ()?? 07/14/2022 01:31 Creatinine-Blood 0.9 mg/dL ()?? 07/14/2022 01:31 Estimated GFR Creatinine 114 ML/MIN/1.73 M2 ()?? 07/14/2022 01:31 Phosphorus 2.5 mg/dL ()?? 07/14/2022 01:31 Magnesium 2.3 mg/dL ()?? 07/14/2022 01:31 Lipase 31 units/L ()?? 07/13/2022 06:45 ?? UA/URINALYSIS Appear/Color, Urine COLORLESS ()?? 07/13/2022 19:45 Specific [place], Urine 1.009 ()?? 07/13/2022 19:45 pH, Urine 7.0 ()?? 07/13/2022 19:45 Albumin, Urine NEGATIVE ()?? 07/13/2022 19:45 Glucose, Urine NEGATIVE ()?? 07/13/2022 19:45 Ketones, Urine NEGATIVE ()?? 07/13/2022 19:45 Bilirubin, Urine NEGATIVE ()?? 07/13/2022 19:45 Hemoglobin, Urine NEGATIVE ()?? 07/13/2022 19:45 Nitrite, Urine NEGATIVE ()?? 07/13/2022 19:45 Leukocyte, Urine NEGATIVE ()?? 07/13/2022 19:45 Urobilinogen NORMAL mg/dL ()?? 07/13/2022 19:45 WBC's, Urine <1 /HPF ()?? 07/13/2022 19:45 RBC's, Urine <1 /HPF ()?? 07/13/2022 19:45 Mucus SLIGHT /LPF ()?? 07/13/2022 19:45 ? Assessment/Plan Diagnoses Alcohol abuse ??(F10.10) Alcohol withdrawal ??(F10.939) Fall ??(W19.XXXA) ? Patient is a 36-year-old male with PMH including alcohol dependence, alcohol withdrawal, HTN, anxiety, depression. Patient was brought to ER due to alcohol intoxication and fall. ?? Alcohol abuse (F10.10):??. Alcohol withdrawal (F10.939):??. Fall (W19.XXXA):??. Patient??has been drinking heavily over the last 2 weeks,??and fell down??several times, likely from intoxication. ??Was found by his father??covered in blood??early in the morning. ??EMS was called.??Patient unable to tell exactly how he fell down. CT head, Cspine and maxillofacial :No acute intracranial abnormality.No skull fracture. CERVICAL SPINE: 1. There is no fracture. There is no focal bony lesion. 2. Normal alignment. 3. No degenerative changes. ?? MAXILLOFACIAL: 1. No facial bone fracture. 2. Soft tissue contents of the orbits are intact. 3. No large soft tissue hematoma or opaque foreign body. ?? serum alcohol : 296 Utox : barbiturates positive likely sec from phenobarbitone he got in [place], the rest are negative. plan On phenobarbital per protocol. Ordered valium 10 mg PO TID?? yesterday and to continue tapering regimen fron today 5 mg TID and the 2.5 mg from tomorrow thiamine, folic acid,??pyridoxine, multivitamins. order clonidine and hydroxyzine prn for withdrawal symptoms. Continue iv fluid hydration, monitor I/O and daily weight. Counseling provided. 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 Low??TSH noted,?? free T4 normal addiction medicine team consult pending ?? Transaminitis: Likely due to alcohol use. USG liver : hepatitis. 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 ? Anxiety/depression/psych: Continue??fluoxetine,??buspirone , trazodone. ?? HTN: Continue amlodipine. ?? GERD: Continue PPI. ?? VTE Prophylaxis:??SCD ? Code Status:?? Full code ?Order Date/Time ??Order Action ??Order Name ??Order Detail ??07/14/2022 08:20 ??Modify ??Diazepam 5 mg Tablet ??5 mg, By Mouth, 3 times a day ??07/14/2022 08:06 ??Discontinue ??Diazepam 10 mg Tablet ??10 mg, By Mouth, 3 times a day ??07/14/2022 08:06 ??Order ??Diazepam 5 mg Tablet ??5 mg, By Mouth, 3 times a day ??07/14/2022 07:40 ??Order ??Change Attending, MD/DO ??[place] SHAFFER, Dominique, 07/14/22 7:40:00 EST ??07/14/2022 07:40 ??Discontinue ??Change Attending, MD/DO ??Elsie SHAFFER, Radha Avila, 07/13/22 8:17:00 EST ??07/14/2022 07:40 ??Discontinue ??Covering Physician/MAHESH Beeper ??Pager Number: [phone], 07/12/22 14:58:00 EST ? * Jody Meadows RN: PERFORM, SIGN, VERIFY Event Display: Progress Note Hospital Authored Date: Patient: JULIOCESAR COLÓN Age: 36 years Sex: Male : 1985 Associated Diagnoses: None Author: Jody Meadows RN Findings Problem Related to Alteration in Psychosocial : Alteration in Psychosocial Function/new 07/14/2022 4:00 EST Alteration in Psychosocial Related to Acute Alcohol Withdrawal Goals & Outcomes, Psychosocial Psychosocial support will be provided to Pt/S.O. as needed, Pt will identify stressors leading up to event, Pt will state importance of adhering to medication regime, Pt/caregiver will be offered appropriate resources & support, Pt/caregiver will express feelings/needs/fears /concerns, Pt/caregiver will maintain/obtain psychological stability, Pt/caregiver will participate in coping skill counseling, Pt successfully withdraws with minimal side effects, Encourage patient to attend NA/AA meetings, Pt will be free from withdrawal symptoms, Pt will develop plan for sobriety after discharge, Pt will show motivation for recovery, Pt will verbalize ways to prevent relapse Interventions, Psychosocial Assess psychosocial needs, Assess readiness to learn needed lifestyle changes, Assess/monitor level of consciousness, Collaborate with provider for psychiatric consult, Evaluate resources & support system available to pt, Offer support; discuss coping strategies, Provide a calm, supportive environment, Provide chances to express concerns/emotions/expectations, Provide info on community resources for education, support, Provide information about illness and recovery, Provide verbal limits if pt's behavior escalates, Identify complications of chronic alcohol use,Assess for complications related to acute alcohol withdrawal, Determine pt's stage of withdrawal asper CIWA scale, Encourage pt to continue to detox, Minimize stimulation, Minimize stressors, Offer clergy, AA sponsor, counselor support, Offer support to pt/S.O. during acute alcohol withdrawal . Nursing Data Vital Signs : VITAL SIGNS SECTION 07/13/2022 22:50 EST Temperature 97.7 DegF Temperature Route Oral Pulse Rate 67 bpm Respiratory Rate 19 br/min Systolic Blood Pressure 142 mm Hg H Diastolic Blood Pressure 84 mm Hg Blood pressure sites Arm, left Mean Arterial Pressure 103 mm Hg Pulse Pressure 58 mm Hg Oxygen Saturation 97 % Mode of Delivery (Oxygen) Room air . Psychosocial : Psychosocial Data. 07/13/2022 23:00 EST Affect/Behavior Anxious . Evaluation Patient A&Ox4. Mild hypertensive. CIWA score 5 and 3. Patient mildly anxious and reporting moderate headache. Valium and PRN meds given as per orders with positive effect. Patient denies CP, SOB,n/v. patient meal and various snacks provided. Bruising noted periorbital in L/eye with some redness. patient also c/o mild pain in R/ribs. NS running at 75 mL/hr and patient tolerating well. continent x2. Good urine out put. Last BM reported to be 07/11. Patient currently resting. Call jack is within reach and bed is locked in lowest position. Will continue to monitor. Refer to [facility] for full assessment.. Note * Yeimi Merino RN: PERFORM Event Display: Discharge/Transfer Note Hospital Authored Date: [id number] Nursing Discharge Note Entered On: 07/15/2022 12:47 EST Performed On: 07/15/2022 12:47 EST by Yeimi Merino RN Nursing Discharge Note 2 Discharge Time : 07/15/2022 13:30 EST Yeimi Merino RN - 07/15/2022 14:00 EST Discharge Level of Care at Discharge : Home/Care Home/Foster Care Patient Left Unit Via : Wheelchair Patient Accompanied Off Unit with : Responsible adult DC Instructions Provided & Signed by Pt : Yes Patient Understands D/C Instructions : Yes Verbalized Understanding of D/C Plan By : Patient Patient Instructions Discharge Signed : Yes Did Pt have Specialty Bed or Wound Vac : No Yeimi Merino RN - 07/15/2022 12:47 EST * Dominique Guthrie MD: PERFORM Event Display: Discharge/Transfer Note Hospital Authored Date: [id number] Patient: ??JULIOCESAR COLÓN ? Age:??36 Years?Sex:??Male?:??1985?? Patient Information Discharge Location: [facility] Primary Care Physician: Not on Staff, PCP Admit Date/Time: 07/12/22 09:05 Discharge Disposition Discharge Disposition: ?? Discharge Diagnosis Alcohol abuse (F10.10) Alcohol withdrawal (F10.939) Fall (W19.XXXA) ?? _ Discharge Medications Acamprosate (acamprosate 333 mg oral delayed release tablet)?666?Milligram?By Mouth?3 times a day with meals Amlodipine (amLODIPine 5 mg oral tablet)?5?Milligram?1?tablet?By Mouth?Daily?as needed?for 30?Days?Please resume amlodipine 5mg PO daily if BP > 140/90.?Blood Pressure BusPIRone (busPIRone 30 mg oral tablet)?1?tab(s)?30?Milligram?By Mouth?2 times a day Fluoxetine (FLUoxetine 20 mg oral capsule)?40?Milligram?2?capsule?By Mouth?Daily Folic Acid (folic acid 1 mg oral tablet)?1?Milligram?1?tablet?By Mouth?Daily HydrOXYzine (hydrOXYzine hydrochloride 50 mg oral tablet)?1?tab(s)?50?Milligram?By Mouth?2 times a day?as needed?for anxiety Lorazepam (LORazepam 1 mg oral tablet)?1?tab(s)?1?Milligram?By Mouth?3 times a day?as needed?Anxiety?for 7?Days Melatonin (melatonin 10 mg oral tablet)?1?tab(s)?10?Milligram?By Mouth?Daily at bedtime?as needed?as needed for insomnia Multivitamin (multivitamin Multiple Vitamins oral tablet)?1?tab(s)?By Mouth?Daily?for 30?Days Naltrexone (naltrexone 50 mg oral tablet)?1?tab(s)?50?Milligram?By Mouth?Daily Omeprazole (omeprazole 20 mg oral enteric coated capsule)?1?capsule?20?Milligram?By Mouth?2 times a day?before a meal Pyridoxine (Pyridoxine Tablet)?50?Milligram?By Mouth?Daily Thiamine (thiamine 100 mg oral tablet)?100?Milligram?1?tablet?By Mouth?2 times a day Trazodone (traZODone 50 mg oral tablet)?1?tablet?By Mouth?Daily at bedtime?as needed? NEEDED FOR INSOMNIA ? Medications Started none Medications Discontinued none Doses Changed none Objective Assessment and Plan ? Patient is a 36-year-old male with PMH including alcohol dependence, alcohol withdrawal, HTN, anxiety, depression. Patient was brought to ER due to alcohol intoxication and fall. ?? Alcohol abuse (F10.10):??. Alcohol withdrawal (F10.939):??. Fall (W19.XXXA):??. Patient??has been drinking heavily over the last 2 weeks,??and fell down??several times, likely from intoxication. ??Was found by his father??covered in blood??early in the morning. ??EMS was called.??Patient unable to tell exactly how he fell down. CT head, Cspine and maxillofacial :No acute intracranial abnormality.No skull fracture. ?? CERVICAL SPINE: 1. There is no fracture. There is no focal bony lesion. 2. Normal alignment. 3. No degenerative changes. ?? MAXILLOFACIAL: 1. No facial bone fracture. 2. Soft tissue contents of the orbits are intact. 3. No large soft tissue hematoma or opaque foreign body. ?? serum alcohol : 296 Utox : barbiturates positive likely sec from phenobarbitone he got in Ed, the rest are negative. was On phenobarbital per protocol. CIWA 1 on dc Ordered valium 10 mg PO TID?? yesterday and to continue tapering regimen fron today 5 mg TID and the 2.5 mg?? today will dc on Ativan TID as he was taking outpatient continue all supplements Low??TSH noted,?? free T4 normal addiction medicine team consult was pending but patient has an appointment with comprehensive care [facility] for starting vivitriol shots ?? Transaminitis: Likely due to alcohol use. USG liver : hepatitis likely due to Alcohol , monitor as outpatient . 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 ? Anxiety/depression/psych: Continue??fluoxetine,??buspirone , trazodone. ?? HTN: Continue amlodipine. ?? GERD: Continue PPI. ? Patient was seen and examined today at bedside, no new complains, will be discharged today. with the above mentioned medications. ? Vital Signs?? Temperature: 97.6 DegF (07/14/22 23:48:00) Temperature Route: Oral (07/14/22 23:48:00) Pulse Rate: 61 bpm (07/14/22 23:48:00) Respiratory Rate: 18 br/min (07/14/22 23:48:00) Systolic Blood Pressure: 112 mm Hg (07/14/22 23:48:00) Diastolic Blood Pressure: 60 mm Hg (07/14/22 23:48:00) Blood pressure sites: Arm, left (07/14/22 23:48:00) Mean Arterial Pressure: 77 mm Hg (07/14/22 23:48:00) Pulse Pressure: 52 mm Hg (07/14/22 23:48:00) Oxygen Saturation: 99 % (07/14/22 23:48:00) Mode of Delivery (Oxygen): Room air (07/14/22 23:48:00) Early Warning Score: 2 (07/15/22 03:37:30) ? . Physical Exam General: Lying comfortably in bed, no evident distress Cardiac: S1 + S2 + 0, no murmurs heard Respiratory: CTA, No wheezes, Rales or crackles heard Abdomen: soft, nondistended, nontender Extremities: No edema or cyanosis present Neurological: AO X 3 , cranial nerves grossly normal?? Pending Results Add On Lab Order ordered on 07/13/2022 Add On Lab Order ordered on 07/13/2022 Follow-Up Appointments Added Follow Up ?Time Frame ?Comments Not on Staff, PCP Home Health Face to Face ^HomeHealthFTF Results Discharge Labs BLOOD COUNT & DIFF WBC 5.0 k/mm3 ()?? 07/15/2022 01:56 RBC 3.78 m/mm3 (Low)?? 07/15/2022 01:56 Hgb 11.2 Gm/dL (Low)?? 07/15/2022 01:56 Hct 33.5 % (Low)?? 07/15/2022 01:56 MCV 88.6 femtoliters ()?? 07/15/2022 01:56 MCH 29.6 pg ()?? 07/15/2022 01:56 MCHC 33.4 g/dL ()?? 07/15/2022 01:56 Platelet Count 216 k/mm3 ()?? 07/15/2022 01:56 RDW-SD 42.1 femtoliters ()?? 07/15/2022 01:56 MPV 10.1 femtoliters ()?? 07/15/2022 01:56 Nucleated RBC (Automated) 0.0 #/100 WBC'S ()?? 07/15/2022 01:56 Abs. NRBC 0.0 k/mm3 ()?? 07/15/2022 01:56 Abs. Neut 3.9 k/mm3 ()?? 07/13/2022 06:45 Abs. Lymph 0.9 k/mm3 ()?? 07/13/2022 06:45 Abs. Huron 1.0 k/mm3 ()?? 07/13/2022 06:45 Abs. Eo 0.0 k/mm3 ()?? 07/13/2022 06:45 Abs. Baso 0.0 k/mm3 ()?? 07/13/2022 06:45 Neut % 66.7 % ()?? 07/13/2022 06:45 Lymph % 15.0 % ()?? 07/13/2022 06:45 Huron % 17.4 % (High)?? 07/13/2022 06:45 Eos % 0.3 % ()?? 07/13/2022 06:45 Baso % 0.3 % ()?? 07/13/2022 06:45 Imm Gran 0.3 % ()?? 07/13/2022 06:45 Abs. Imm Gran 0.0 k/mm3 ()?? 07/13/2022 06:45 ?? CARDIAC High Sensitivity Troponin (HSTnT) 8 ng/L ()?? 07/13/2022 06:45 ? CHEM GENERAL Sodium 138 mmol/L ()?? 07/15/2022 01:56 Potassium 3.8 mmol/L ()?? 07/15/2022 01:56 Chloride 101 mmol/L ()?? 07/15/2022 01:56 Bicarbonate Level 25 mmol/L ()?? 07/15/2022 01:56 Anion Gap 12 ()?? 07/15/2022 01:56 Glucose Level 160 mg/dL (High)?? 07/15/2022 01:56 Glucose, POC 88 mg/dL ()?? 07/12/2022 09:52 BUN 6 mg/dL ()?? 07/15/2022 01:56 Creatinine-Blood 0.8 mg/dL ()?? 07/15/2022 01:56 Estimated GFR Creatinine 116 ML/MIN/1.73 M2 ()?? 07/15/2022 01:56 Calcium 9.4 mg/dL ()?? 07/15/2022 01:56 Phosphorus 2.5 mg/dL ()?? 07/14/2022 01:31 Magnesium 2.3 mg/dL ()?? 07/14/2022 01:31 Protein, Total 6.6 Gm/dL ()?? 07/15/2022 01:56 Albumin 4.0 Gm/dL ()?? 07/15/2022 01:56 Alkaline Phosphatase 68 units/L ()?? 07/15/2022 01:56 Lipase 31 units/L ()?? 07/13/2022 06:45 AST (SGOT) 33 units/L ()?? 07/15/2022 01:56 ALT (SGPT) 61 units/L (High)?? 07/15/2022 01:56 Bilirubin, Total 0.2 mg/dL ()?? 07/15/2022 01:56 Bilirubin, Direct <0.2 mg/dL ()?? 07/15/2022 01:56 Bilirubin, Indirect Direct bilirubin is less than the measureable limit. Therefore, indirect mg/dL ()?? 07/15/2022 01:56 ?? COAG INR 1.0 ()?? 07/12/2022 09:46 Protime (PT) 10.3 seconds ()?? 07/12/2022 09:46 ?? ENDOCRINE/TUMOR MARKER TSH 0.33 uIU/mL (Low)?? 07/12/2022 09:46 Free T4 0.98 ng/dL ()?? 07/12/2022 09:46 ?? TOXICOLOGY/TDM Ethanol, Serum or Plasma 296 mg/dL (Abnormal)?? 07/12/2022 09:46 Barbiturate Screen, Urine POSITIVE (Abnormal)?? 07/12/2022 17:23 Cannabinoid Screen, Urine NONE DETECTED ()?? 07/12/2022 17:23 Cocaine Metabolite Screen, Urine NONE DETECTED ()?? 07/12/2022 17:23 Benzodiazepine Screen, Urine NONE DETECTED ()?? 07/12/2022 17:23 Amphetamine Screen, Urine NONE DETECTED ()?? 07/12/2022 17:23 Opiate Screen, Urine NONE DETECTED ()?? 07/12/2022 17:23 ? UA/URINALYSIS Appear/Color, Urine COLORLESS ()?? 07/13/2022 19:45 Specific Concord, Urine 1.009 ()?? 07/13/2022 19:45 pH, Urine 7.0 ()?? 07/13/2022 19:45 Albumin, Urine NEGATIVE ()?? 07/13/2022 19:45 Glucose, Urine NEGATIVE ()?? 07/13/2022 19:45 Ketones, Urine NEGATIVE ()?? 07/13/2022 19:45 Bilirubin, Urine NEGATIVE ()?? 07/13/2022 19:45 Hemoglobin, Urine NEGATIVE ()?? 07/13/2022 19:45 Nitrite, Urine NEGATIVE ()?? 07/13/2022 19:45 Leukocyte, Urine NEGATIVE ()?? 07/13/2022 19:45 Urobilinogen NORMAL mg/dL ()?? 07/13/2022 19:45 WBC's, Urine <1 /HPF ()?? 07/13/2022 19:45 RBC's, Urine <1 /HPF ()?? 07/13/2022 19:45 Mucus SLIGHT /LPF ()?? 07/13/2022 19:45 ?? VIROLOGY COVID-19 by RT-PCR NEGATIVE ()?? 07/12/2022 17:23 COVID-19 PCR Specimen Source NASAL ()?? 07/14/2022 06:12 COVID-19 PCR Result NEGATIVE ()?? 07/14/2022 06:12 ? Microbiology ?? COVID-19 (Novel Coronavirus), Rapid PCR?? Completed?? Source: Nasal Body Site: Nose Collected Dt/Tm: 07/12/2022 14:36 Last Updated Dt/Tm: 07/12/2022 18:34 COVID-19 (2019 Novel Coronavirus) PCR?? Completed?? Source: Nasal Body Site: Nose Collected Dt/Tm: 07/14/2022 06:12 Last Updated Dt/Tm: 07/14/2022 18:02 ? 38 minutes spent on discharge * Wilber BARRETO, Yeimi Fulton: PERFORM Event Display: Patient Education/Instruction Authored Date: [id number] Inpatient Adult Discharge Instructions [address] [address] Name: JULIOCESAR COLÓN : 1985 Visit: 07/12/2022 09:05:00 Current Date: 07/15/2022 12:47 Account: [id number] Inpatient Adult Discharge Instructions We would like to thank you for allowing us to assist you with your healthcare needs. The following includes patient education materials and information regarding your injury/illness. Our entire staffstrives to provide an excellent experience for our patients and their families. PLEASE ENSURE YOU FOLLOW-UP PER THE INSTRUCTIONS BELOW! ?? YOUR OPINION IS IMPORTANT TO US! Please complete the survey you may receive by mail or email. Your feedback will be used to make improvements to the healthcare experiences of our patients and their families. Surveys are administered by [employer] ?? If further treatment with your primary care physician or another doctor is recommended, it is important for you to keep the appointment. Call your primary care physician or return to the Emergency Department immediately if your condition worsens, fails to improve, or new symptoms develop. If you need to find a doctor, you can call [facility] [employer] for a referral at [phone] or toll free at [phone] or log in to [email or web address].. ?? You can view and manage your care through the patient portal or by using a health care mahesh of your choosing. [employer] is a website that allows you to securely view your medical information including your hospital discharge summary, office visit summaries, medications and follow-up visits. You can also request appointments, renew medications, and request access to your medical information using a health care mahesh of your choosing, or just ask a question. You can enroll at [email or web address] or register during your next office visit. You have been discharged from [facility], Patient Care Unit: S3. If you have any questions regarding these instructions after you leave, please call us and we will be happy to assist you. [facility] Your Care Team Attending Physician Dominique Guthrie MD Discharging Providers Dominique Guthrie MD Reason for Admission Patient well knownt to EMS, daily drinker. Per EMS patient father went to check on him and found him covered in dried blood with a laceration to the face. Patient intoxciated, states he fell into thecorner of a table, but does not remember when or LOC Your Diagnosis Fall Alcohol abuse Alcohol withdrawal Tests Performed Below is a partial list of the tests performed during your hospitalization. You may have had other tests and procedures not included in this list. Please discuss all test results with your provider. Alcohol Level ALK PHOS ALT Amphetamine Urine Screen AST Barbiturate Urine Screen Benzodiazepine Urine Screen BUN Calcium Level Cannabinoid Urine Screen CBC CBC w/ Differential Cocaine Urine Screen COVID-19 (2019 Novel Coronavirus) PCR COVID-19 (Novel Coronavirus), Rapid PCR Creatinine Electrolytes FREE T4 Glucose Level GLUCOSE POC INR LFT's Lipase Magnesium Level Opiate Screen Urine Phosphorus Level TOTAL AND DIRECT BILIRUBIN Troponin T, High Sensitivity TSH UA CT Cervical Spine W/O Contrast CT Head/Brain W/O Contrast CT Maxilloface W/O Contrast CXR Portable US Liver Primary Care Provider Not on Staff, PCP Advance Directive Health Care Proxy on File Yes - Health Care Proxy Discharge Vitals Temperature: 97.8 DegF Height: 173 cm Pulse Rate: 68 bpm Weight: 73.5 kg Respiratory Rate: 18 br/min Body Mass Index: 24.56 kg/m2 Systolic Blood Pressure: 134 mm Hg Body surface area: 1.88 Diastolic Blood Pressure:??88 mm Hg??High ?? Oxygen Saturation: 100 % ?? Studies Pending All tests and labs ordered during this hospital stay have been completed unless listed below. Please discuss all pending results with your provider listed above in these instructions. ?? Add On Lab Order What to do next Instructions From Your Doctor Discharge Orders You Need to Schedule the Following Appointments Follow Up with??Not on Staff, PCP When?? Discharge Medications JULIOCESAR COLÓN :1985 Visit Date:07/12/2022 Medications: Please continue your medications until treatment is completed or stopped by your provider. Medications not listed below should be discontinued. Discuss any questions related to medications with your provider. What How Much When Instructions Next Dose Changed Lorazepam (LORazepam 1 mg oral tablet) 1 tab(s) Oral 3 times a day as needed for Anxiety Duration: 7 Days Pickup at [facility] 3 as needed Unchanged Acamprosate (acamprosate 333 mg oral delayed release tablet) 666 Milligram Oral 3 times a day with meals 07/15 at 5pm Unchanged Amlodipine (amLODIPine 5 mg oral tablet) 1 tab(s) Oral Daily as needed for Blood Pressure Duration: 30 Days Please resume amlodipine 5mg PO daily if BP > 140/ 90. ?? as needed Unchanged BusPIRone (busPIRone 30 mg oral tablet) 1 tab(s) Oral Twice a day 07/15 tonight Unchanged Fluoxetine (FLUoxetine 20 mg oral capsule) 2 capsule Oral Daily 07/16 tomorrow morning Unchanged Folic Acid (folic acid 1 mg oral tablet) 1 tab(s) Oral Daily 07/16 tomorrow morning Unchanged HydrOXYzine (hydrOXYzine hydrochloride 50 mg oral tablet) 1 tab(s) Oral Twice a day as needed for for anxiety as needed Unchanged Melatonin (melatonin 10 mg oral tablet) 1 tab(s) Oral Daily at Bedtime as needed for as needed for insomnia as needed Unchanged Multivitamin (multivitamin Multiple Vitamins oral tablet) 1 tab(s) Oral Daily Duration: 30 Days 07/16 tomorrow morning Unchanged Naltrexone (naltrexone 50 mg oral tablet) 1 tab(s) Oral Daily 07/16 tomorrow morning Unchanged Omeprazole (omeprazole 20 mg oral enteric coated capsule) 1 capsule Oral Twice a day before a meal ?? 07/15 tonight Unchanged Pyridoxine (Pyridoxine Tablet) 50 Milligram Oral Daily 07/16 tomorrow morning Unchanged Thiamine (thiamine 100 mg oral tablet) 1 tab(s) Oral Twice a day 07/15 tonight Unchanged Trazodone (traZODone 50 mg oral tablet) 1 tab(s) Oral Daily at Bedtime as needed for NEEDED FOR INSOMNIA as needed Pharmacy Information [facility]: [address], [place] [id number] [phone] ?? What How Much When Comments Stop Taking Clonidine (cloNIDine 0.1 mg oral tablet) 1 tab(s) Oral Daily is morning ?? Stop Taking Clonidine (cloNIDine 0.2 mg oral tablet) 1 tab(s) Oral Daily at Bedtime Stop Taking Diazepam (Valium 5 mg oral tablet) 0.5 tab(s) Oral Once Please give valium 2.5 mg PO once at 21:00 pm ( ) ?? Test Results Below is a partial list of the most recent Laboratory test results done prior to this discharge. You may have had other tests and procedures not included in this list. Please discuss all test resultswith your provider. Alcohol Level (07/12/2022) ???Ethanol, Serum or Plasma - 296 mg/dL ALK PHOS (07/12/2022) ???Alkaline Phosphatase - 73 units/L ALT (07/12/2022) ???ALT (SGPT) - 112 units/L Amphetamine Urine Screen (07/12/2022) ???Amphetamine Screen, Urine - NONE DETECTED AST (07/12/2022) ???AST (SGOT) - 70 units/L Barbiturate Urine Screen (07/12/2022) ???Barbiturate Screen, Urine - POSITIVE Benzodiazepine Urine Screen (07/12/2022) ???Benzodiazepine Screen, Urine - NONE DETECTED BUN (07/15/2022) ???BUN - 6 mg/dL Calcium Level (07/15/2022) ???Calcium - 9.4 mg/dL Cannabinoid Urine Screen (07/12/2022) ???Cannabinoid Screen, Urine - NONE DETECTED CBC (07/15/2022) ???WBC - 5.0 k/mm3???RBC - 3.78 m/mm3???Hgb - 11.2 Gm/dL???Hct - 33.5 %???MCV - 88.6 femtoliters???MCH - 29.6 pg???MCHC - 33.4 g/dL???Platelet Count - 216 k/mm3???RDW-SD - 42.1 femtoliters???MPV - 10.1 femtoliters???Nucleated RBC (Automated) - 0.0 #/100 WBC'S???Abs. NRBC - 0.0 k/mm3 CBC w/ Differential (07/13/2022) ???WBC - 5.8 k/mm3???RBC - 3.70 m/mm3???Hgb - 11.3 Gm/dL???Hct - 31.5 %???MCV - 85.1 femtoliters???MCH - 30.5 pg???MCHC - 35.9 g/dL???Platelet Count - 141 k/mm3???RDW-SD - 38.3 femtoliters???MPV - 9.9 femtoliters???Nucleated RBC (Automated) - 0.0 #/100 WBC'S???Abs. NRBC - 0.0 k/mm3???Abs. Neut - 3.9 k/mm3???Abs. Lymph - 0.9 k/mm3???Abs. Huron - 1.0 k/mm3???Abs. Eo - 0.0 k/mm3???Abs. Baso - 0.0 k/mm3???Neut % - 66.7 %???Lymph % - 15.0 %???Huron % - 17.4 %???Eos % - 0.3 %???Baso % - 0.3 %???Imm Gran - 0.3 %???Abs. Imm Gran - 0.0 k/mm3 Cocaine Urine Screen (07/12/2022) ???Cocaine Metabolite Screen, Urine - NONE DETECTED COVID-19 (2019 Novel Coronavirus) PCR (07/14/2022) ???COVID-19 PCR Specimen Source - NASAL???COVID-19 PCR Result - NEGATIVE COVID-19 (Novel Coronavirus), Rapid PCR (07/12/2022) ???COVID-19 by RT-PCR - NEGATIVE Creatinine (07/15/2022) ???Creatinine-Blood - 0.8 mg/dL???Estimated GFR Creatinine - 116 ML/MIN/1.73 M2 Electrolytes (07/15/2022) ???Sodium - 138 mmol/L???Potassium - 3.8 mmol/L???Chloride - 101 mmol/L???Bicarbonate Level - 25 mmol/L???Anion Gap - 12 FREE T4 (07/12/2022) ???Free T4 - 0.98 ng/dL Glucose Level (07/15/2022) ???Glucose Level - 160 mg/dL GLUCOSE POC (07/12/2022) ???Glucose, POC - 88 mg/dL INR (07/12/2022) ???INR - 1.0???Protime (PT) - 10.3 seconds LFT's (07/15/2022) ???Protein, Total - 6.6 Gm/dL???Albumin - 4.0 Gm/dL???Alkaline Phosphatase - 68 units/L???AST (SGOT) - 33 units/L? ?ALT (SGPT) - 61 units/L? ?Bilirubin, Total - 0.2 mg/dL? ?Bilirubin, Direct - <0.2 mg/dL???Bilirubin, Indirect - Direct bilirubin is less than the measureable limit. Therefore, indirect Lipase (07/13/2022) ???Lipase - 31 units/L Magnesium Level (07/14/2022) ???Magnesium - 2.3 mg/dL Opiate Screen Urine (07/12/2022) ???Opiate Screen, Urine - NONE DETECTED Phosphorus Level (07/14/2022) ???Phosphorus - 2.5 mg/dL TOTAL AND DIRECT BILIRUBIN (07/12/2022) ? ?Bilirubin, Total - 0.2 mg/dL? ?Bilirubin, Direct - <0.2 mg/dL? ?Bilirubin, Indirect - Direct bilirubin is less than the measureable limit. Therefore, indirect Troponin T, High Sensitivity (07/13/2022) ???High Sensitivity Troponin (HSTnT) - 8 ng/L TSH (07/12/2022) ???TSH - 0.33 uIU/mL UA (07/13/2022) ???Appear/Color, Urine - COLORLESS???Specific Concord, Urine - 1.009???pH, Urine - 7.0???Albumin, Urine - NEGATIVE???Glucose, Urine - NEGATIVE???Ketones, Urine - NEGATIVE???Bilirubin, Urine - NEGATIVE???Hemoglobin, Urine - NEGATIVE???Nitrite, Urine - NEGATIVE???Leukocyte, Urine - NEGATIVE???Urobilinogen - NORMAL? ?WBC's, Urine - <1 /HPF? ?RBC's, Urine - <1 /HPF? ?Mucus - SLIGHT Immunizations This Visit Given Vaccine Datetetanus/diphtheria/pertussis, acel(Tdap) 07/12/2022 Allergies (NKA means No Known Allergies) NKA Problems Active Problems??(7) Alcoholism?? Essential Hypertension?? Fatty liver us 2020?? H/O herpes zoster?? Hyperlipidemia?? Impaired fasting glucose?? 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 Education Materials Below is the list of Educational Leaflet Providered with your Discharge Instructions. Valuables and Belongings I fully understand and agree that [facility] accepts no responsibility for all my personal property including clothing, toilet articles, radios, jewelry, dentures, hearing aids, rings, money, or any other property that is in my possession or is brought to me after admission. I understand certain valuables may be placed in a hospital safe for a short period of time. I understand that the hospital is not liable for loss or damage due to accident, fire, or other natural occurrence while said property is in the safe. I accept full responsibility for any personal property that I keep with me, and will not hold the hospital responsible in case of loss or disappearance. I acknowledge that i have been encouraged to send valuables and belongings home. ?? No Valuables/Belongings: No valuables/belongings present Date for Pt to Sign Valuables/Belongings: 07/15/22 11:29:00 ?? Other Discharge Information ?? Wound Assessment?? Wound Assessment?? Wound Location I: Face Wound Type I: Incision ?? Case Management Discharge Plan?? Discharge Plan?? Discharge Level of Care at Discharge: Home/Care Home/Foster Care ?? Pulmonary Rehab Status?? Pulmonary Rehab Discharge Status?? Respiratory Rate: 18 br/min ? Common Emergency Awareness Tips IS IT A STROKE? Act FAST and Check for these signs: FACE Does the face look uneven? ARM Does one arm drift down? SPEECH Does their speech sound strange? TIME Call at any sign of stroke ?? Heart Attack Signs Chest discomfort: Most heart attacks involve discomfort in the center of the chest and lasts more than a few minutes, or goes away and comes back. It can feel like uncomfortable pressure, squeezing, fullness or pain. Discomfort in upper body: Symptoms can include pain or discomfort in one or both arms, back, neck, jaw or stomach. Shortness of breath: With or without discomfort. Other signs: Breaking out in a cold sweat, nausea, or lightheaded. Remember, MINUTES DO MATTER. If you experience any of these heart attack warning signs, call to get immediate medical attention! ?? Smoking can increase your chances of developing chronic health problems and can cause harmful effects to other family members in your house. If you smoke, you are strongly encouraged to quit. Please call [facility] at [phone] or [phone] or log in to [email or web address] for referrals to smoking cessation programs. ?? The National Suicide Prevention Hotline is available 22/12 if you or someone you know needs to find a reason to keep living. By calling 0-483-020-Corpora (9654) you'll be connected to a skilled, trained counselor at a crisis center in your area. INPATIENT DISCHARGE INSTRUCTIONS SIGNATURE PAGE JULIOCESAR COLÓN Location:[facility] Registration Date and Time:07/12/2022 09:05 EST Primary Care Physician: Not on Staff, PCP JULIOCEASR BISHOP, have received the above patient education materials/instructions and have verbalized understanding. If ambulance or transport services are being used I further acknowledge being given a choice of service. ?? If you need to contact me, please call me at this number: . Patient/Oil Developer Name: Patient/Oil Developer Signature: Relationship to Patient: Witness Name/Signature: Date: US Liver * NAYELY Powell S: TRANSCRIElvin Marie MD: VERIFY Event Display: Result: Authored Date: [id number] US Liver Reason: Cirrhosis, abd pain per md; Clinical Question(s): Cirrhosis COMPARISON: CT from June 19, 2021 IMAGING TECHNIQUE: Grayscale and color Doppler ultrasound examination of the liver. FINDINGS: Liver: Coarse hepatic echotexture. No suspicious lesion. Smooth hepatic contour. Main portal vein patent with normal hepatopetal direction of flow. Biliary Tree: No intrahepatic or extrahepatic bile duct dilation is identified. Common duct: 0.5 cm. IMPRESSION: Coarse hepatic echotexture likely due to underlying hepatocellular disease. No suspicious lesion. WSN: [id number] Ordering Physician: Miguel Michele Dictated By: Elvin Farrell MD Dictated Date/Time: 07/13/22 7:08 am Reviewed By: Elvin Farrell MD Signed By: Elvin Farrell MD Signed Date/Time: 07/13/22 7:08 am Transcribed By: REINIER Transcribed Date/Time: 07/13/22 7:07 am Portable XR Chest Views * NAYELY Powell S: TRANSCElvin Chase MD: VERIFY Event Display: Result: Authored Date: [id number] Chest Portable Reason: Pleuritic Pain; Clinical Question(s): Other: COMPARISON: May 19, 2022 FINDINGS: LINES AND TUBES: None. LUNGS AND PLEURA: Clear lungs. Normal pulmonary vascularity. No pleural effusion. No pneumothorax. HEART, MEDIASTINUM AND ROJELIO: Heart is normal in size. Normal mediastinal and hilar contour. BONES AND SOFT TISSUES: No acute abnormality. IMPRESSION: No acute abnormality. WSN: [id number] Ordering Physician: Miguel Michele Dictated By: Elvin Farrell MD Dictated Date/Time: 07/13/22 8:40 am Reviewed By: Elvin Farrell MD Signed By: Elvin Farrell MD Signed Date/Time: 07/13/22 8:40 am Transcribed By: REINIER Transcribed Date/Time: 07/13/22 8:[address] Cervical spine WO contrast * BHSPowerscribe , CIS S: TRANSCRIBE Nino SHAFFER, Pipo D: VERIFY Event Display: Result: Authored Date: [id number] CT Head/Brain W/O Contrast, CT Maxillofacial W/O Contrast, CT Cervical Spine W/O Contrast CLINICAL INDICATION: Intoxication. Left temporal lacerations. Patient covered in blood with no memory of injury. PRIOR EXAMS: No prior exam.. TECHNIQUE: Incremental CT scan through the head and spiral CT through the face and cervical spine without contrast, formatted in multiple planes. The cervical and facial portions of the exam were performed with automatic exposure control. RADIATION DOSE PARAMETERS: CTDIvol Body: 14.20 mGy, DLP Body: 361 mGy*cm. CTDIvol Head: 41.60 mGy, DLP Head: 671 mGy*cm. FINDINGS: BRAIN: There is no infarct. There is no intracerebral hemorrhage. There is no mass. VENTRICLES AND SULCI: The ventricles and sulci are symmetrical and normal. WHITE MATTER: No white matter abnormality. EXTRA AXIAL SPACES: There is no abnormal epidural, subdural, or subarachnoid blood or fluid. SKULL: There is no skull fracture.. TEMPORAL BONES: The mastoid air cells are clear, as are the middle ear cavities. CERVICAL VERTEBRAL BODIES: There is no fracture. There is no focal bony lesion.. ALIGNMENT OF CERVICAL SPINE: The cervical vertebral bodies are in normal alignment.. CERVICAL DEGENERATIVE CHANGES: There are no degenerative changes. LUNG APICES: No pneumothorax. MANDIBLE: No fracture or focal lesion. Temporomandibular joints normal.. OTHER FACIAL BONES: The other facial bones show no fracture. SOFT TISSUES OF ORBITS: The soft tissue contents of the orbital cavity are normal bilaterally, including intact globes. PARANASAL SINUSES: Clear. OTHER SOFT TISSUES: No hematoma or other abnormality.. IMPRESSION: HEAD 1. No acute intracranial abnormality.. 2. No skull fracture. CERVICAL SPINE: 1. There is no fracture. There is no focal bony lesion. 2. Normal alignment. 3. No degenerative changes. MAXILLOFACIAL: 1. No facial bone fracture. 2. Soft tissue contents of the orbits are intact. 3. No large soft tissue hematoma or opaque foreign body. WSN: [id number] Ordering Physician: Shreyas Guido Dictated By: Pipo Oneill MD Dictated Date/Time: 07/12/22 10:33 a Reviewed By: Pipo Oneill MD Signed By: Pipo Oneill MD Signed Date/Time: 07/12/22 10:33 am Transcribed By: REINIER Transcribed Date/Time: 07/12/22 10:[address] Maxillofacial region WO contrast * [facility] , CIS S: TRANSCRIBE Pipo Oneill MD: VERIFY Event Display: Result: Authored Date: [id number] CT Head/Brain W/O Contrast, CT Maxillofacial W/O Contrast, CT Cervical Spine W/O Contrast CLINICAL INDICATION: Intoxication. Left temporal lacerations. Patient covered in blood with no memory of injury. PRIOR EXAMS: No prior exam.. TECHNIQUE: Incremental CT scan through the head and spiral CT through the face and cervical spine without contrast, formatted in multiple planes. The cervical and facial portions of the exam were performed with automatic exposure control. RADIATION DOSE PARAMETERS: CTDIvol Body: 14.20 mGy, DLP Body: 361 mGy*cm. CTDIvol Head: 41.60 mGy, DLP Head: 671 mGy*cm. FINDINGS: BRAIN: There is no infarct. There is no intracerebral hemorrhage. There is no mass. VENTRICLES AND SULCI: The ventricles and sulci are symmetrical and normal. WHITE MATTER: No white matter abnormality. EXTRA AXIAL SPACES: There is no abnormal epidural, subdural, or subarachnoid blood or fluid. SKULL: There is no skull fracture.. TEMPORAL BONES: The mastoid air cells are clear, as are the middle ear cavities. CERVICAL VERTEBRAL BODIES: There is no fracture. There is no focal bony lesion.. ALIGNMENT OF CERVICAL SPINE: The cervical vertebral bodies are in normal alignment.. CERVICAL DEGENERATIVE CHANGES: There are no degenerative changes. LUNG APICES: No pneumothorax. MANDIBLE: No fracture or focal lesion. Temporomandibular joints normal.. OTHER FACIAL BONES: The other facial bones show no fracture. SOFT TISSUES OF ORBITS: The soft tissue contents of the orbital cavity are normal bilaterally, including intact globes. PARANASAL SINUSES: Clear. OTHER SOFT TISSUES: No hematoma or other abnormality.. IMPRESSION: HEAD 1. No acute intracranial abnormality.. 2. No skull fracture. CERVICAL SPINE: 1. There is no fracture. There is no focal bony lesion. 2. Normal alignment. 3. No degenerative changes. MAXILLOFACIAL: 1. No facial bone fracture. 2. Soft tissue contents of the orbits are intact. 3. No large soft tissue hematoma or opaque foreign body. WSN: [id number] Ordering Physician: Shreyas Guido Dictated By: Pipo Oneill MD Dictated Date/Time: 07/12/22 10:33 a Reviewed By: Pipo Oneill MD Signed By: Pipo Oneill MD Signed Date/Time: 07/12/22 10:33 am Transcribed By: REINIER Transcribed Date/Time: 07/12/22 10:[address] Head WO contrast * [facility] , CIS S: TRANSCRIBE Pipo Oneill MD: VERIFY Event Display: Result: Authored Date: [id number] CT Head/Brain W/O Contrast, CT Maxillofacial W/O Contrast, CT Cervical Spine W/O Contrast CLINICAL INDICATION: Intoxication. Left temporal lacerations. Patient covered in blood with no memory of injury. PRIOR EXAMS: No prior exam.. TECHNIQUE: Incremental CT scan through the head and spiral CT through the face and cervical spine without contrast, formatted in multiple planes. The cervical and facial portions of the exam were performed with automatic exposure control. RADIATION DOSE PARAMETERS: CTDIvol Body: 14.20 mGy, DLP Body: 361 mGy*cm. CTDIvol Head: 41.60 mGy, DLP Head: 671 mGy*cm. FINDINGS: BRAIN: There is no infarct. There is no intracerebral hemorrhage. There is no mass. VENTRICLES AND SULCI: The ventricles and sulci are symmetrical and normal. WHITE MATTER: No white matter abnormality. EXTRA AXIAL SPACES: There is no abnormal epidural, subdural, or subarachnoid blood or fluid. SKULL: There is no skull fracture.. TEMPORAL BONES: The mastoid air cells are clear, as are the middle ear cavities. CERVICAL VERTEBRAL BODIES: There is no fracture. There is no focal bony lesion.. ALIGNMENT OF CERVICAL SPINE: The cervical vertebral bodies are in normal alignment.. CERVICAL DEGENERATIVE CHANGES: There are no degenerative changes. LUNG APICES: No pneumothorax. MANDIBLE: No fracture or focal lesion. Temporomandibular joints normal.. OTHER FACIAL BONES: The other facial bones show no fracture. SOFT TISSUES OF ORBITS: The soft tissue contents of the orbital cavity are normal bilaterally, including intact globes. PARANASAL SINUSES: Clear. OTHER SOFT TISSUES: No hematoma or other abnormality.. IMPRESSION: HEAD 1. No acute intracranial abnormality.. 2. No skull fracture. CERVICAL SPINE: 1. There is no fracture. There is no focal bony lesion. 2. Normal alignment. 3. No degenerative changes. MAXILLOFACIAL: 1. No facial bone fracture. 2. Soft tissue contents of the orbits are intact. 3. No large soft tissue hematoma or opaque foreign body. WSN: [id number] Ordering Physician: Shreyas Guido Dictated By: Pipo Oneill MD Dictated Date/Time: 07/12/22 10:33 a Reviewed By: Pipo Oneill MD Signed By: Pipo Oneill MD Signed Date/Time: 07/12/22 10:33 am Transcribed By: REINIER Transcribed Date/Time: 07/12/22 10:21 am Patient Care team information Care Team Personnel Name: Neida Ford NP Position: [facility] PCO Associate Professional Member Role: Lifetime Consulting Provider Address: Address: [address] [place] [id number] Name: Not on Staff, PCP Position: [facility] Physician (General Medicine) Member Role: PCP Name: Rubina Brink RN Position: [facility] RN Member Role: Primary Care Nurse Name: Neli Alcala RN Position: [facility] RN Member Role: Primary Care Nurse Name: *Romel MCDUFFIE Attending Position: [facility] ED Medicine Name: Dian Lyon Position: [facility] ED TA [facility] Member Role: Marketing Development Manager Name: Sandy Bolden RN Position: [facility] ED RN W/OE and Tasks Member Role: Patient Care Provider Care Team Related Persons Name: DOMENICA COLÓN Address: [address] [place] [address] Name: KENNETH BALDWIN Address: [address] [place] [address]
--- OUTSIDE RECORDS SUMMARY | 2022-09-26 21:11 | XMS_ITS | Continuity of Care Document ---
Author Name Unknown Organization [facility] [place] Address [address] [place] [address]- Care Team Providers Care Analytics Senior Manager Name Role Phone Greg Ponce DO Primary Care Physician [phone] Encounter [facility] Date(s): 08/19/22 - 09/18/22 [facility] Adult [address] [place] [address]- Allergies, Adverse Reactions, Alerts No Known Allergies [...] 04/29/04 Given 1Result Comment: BOOSTER 2Result Comment: [facility]# [address] [phone] 3Result Comment: [03/10/2017] [facility] [id number] 4Result Comment: [facility]: [id number] 5Result Comment: [10/10/2013] #1 6Admin Note: historical [...] drug., 1... Start Date: 08/29/21 Status: Ordered melatonin 10 mg oral tablet [...] cm, 09/17/21 8:49:00 EDT, Height, 75, kg, 04/14/22 17:05:00 EDT,... Start Date: 09/17/21 Status: Ordered [...] distribution 5advised pre diabetic increased risk diabetes Social History Social History Type Response Smoking Status Never (less than 100 in lifetime) entered on: 07/17/21 Sex Patient Care team information Care Team Personnel Name: Liliana TAMEZ, Neida Ugalde Position: [facility] PCO Associate Professional Member Role: Lifetime Consulting Provider Address: Address: [address] [place] [address] [place] [address]- Name: Greg Ponce DO Position: [facility] Primary Care Physician Member Role: PCP Address: Address: [address] [place] [address] Adult Medicine [place], [place] [address] Name: Fredrick RN, Neli Worley Position: [facility] RN Member Role: Primary Care Nurse Care Team Related Persons Name: DOMENICA COLÓN Address: [address] [place] [address] Name: KENNETH BALDWIN Address: [address] [place] [address]
--- OUTSIDE RECORDS SUMMARY | 2022-09-26 21:12 | XMS_ITS | Continuity of Care Document ---
Author Name Unknown Organization [facility] [place] Address [address] [place] [address]- Care Team Providers Care Buttoner Name Role Phone Greg Ponce DO Primary Care Physician Encounter [facility] Date(s): 08/19/22 - 09/18/22 [facility] Adult [address] [place] [address]- Allergies, Adverse Reactions, Alerts No Known Allergies [...] 04/29/04 Given 1Result Comment: BOOSTER 2Result Comment: [facility]# [address] [phone] 3Result Comment: [03/10/2017] [facility] [phone] 4Result Comment: [facility]: [id number] 5Result Comment: [10/10/2013] #1 6Admin Note: historical [...] Personnel Name: Liliana TAMEZ, Neida Ugalde Position: [facility] PCO Associate Professional Member Role: Lifetime Consulting Provider Address: Address: [address] [place] [address] [place] [address]- Name: Greg Ponce DO Position: [facility] Primary Care Physician Member Role: PCP Address: Address: [address] [place] [address] Adult Medicine [place], [place] [address] Name: Fredrick RN, Neli Worley Position: [facility] RN Member Role: Primary Care Nurse Care Team Related Persons Name: DOMENICA COLÓN Address: [address] [place] [address] Name: KENNETH BALDWIN Address: [address] [place] [address]
--- OUTSIDE RECORDS SUMMARY | 2022-09-26 21:12 | XMS_ITS | Continuity of Care Document ---
Author Name Unknown Organization [facility] [place] Address [address] [place] [address]- Care Team Providers Care Product/Device Technologist Name Role Phone Greg Ponce DO Primary Care Physician [phone] Encounter [facility] Date(s): 08/21/22 - 09/20/22 [facility] Adult [address] [place] [address]- Allergies, Adverse Reactions, Alerts No Known Allergies [...] Comment: [facility]# [address] [phone] 3Result Comment: [03/10/2017] [facility] [id number] 4Result Comment: [facility]: [id number] 5Result Comment: [10/10/2013] #1 6Admin Note: historical [...] Personnel Name: Liliana TAMEZ, Neida Ugalde Position: [facility] PCO Associate Professional Member Role: Lifetime Consulting Provider Address: Address: [address] [place] [address] [place] [address]- Name: Greg Ponce DO Position: [facility] Primary Care Physician Member Role: PCP Address: Address: [address] [place] [address] Adult Medicine [place], [place] [address] Name: Fredrick RN, Neli Worley Position: [facility] RN Member Role: Primary Care Nurse Care Team Related Persons Name: DOMENICA COLÓN Address: [address] [place] [address] Name: KENNETH BALDWIN Address: [address] [place] [address]
[2022-09-26] MEDS: Ondansetron ODT 4 MG TAB.RAPDIS TRANSLINGU ×2 (21:34→22:00)
[2022-09-26 22:00] VITALS: BP 155/98; PULSE 105; RESP 16; TEMP 36.6; O2SAT 95
[2022-09-26] MEDS: LORazepam 1 MG TABLET 2 MG PO (22:00)
--- NOTE | 2022-09-26 22:10 | ED.ALCOHOL ---
HPI - Alcohol General Chief Complaint: ETOH/Substance Use Stated Complaint: ETOH Time Seen by Provider: 09/26/22 21:56 Source: patient Mode of arrival: EMS Limitations: no limitations History of Present Illness HPI narrative: 36-year-old male presents with alcohol withdrawal. Patient has been drinking for many years. Been to detox multiple times. He is here to seek help he cannot do it alone. His last drink was yesterday. He may drink as much as a L daily. His symptoms include nausea, vomiting, anxiousness, confusion. Patient denies any recent falls. He fell approximately 1 month ago was seen at [facility]. He reports having had a CT scan of his head at that time. He does not know what it shows. Patient describes the symptoms as severe. His symptoms are worsened by drinking and or abstinence from alcohol. Symptoms are also associated with nausea vomiting. There has been non bilious and nonbloody vomitus. Denies any melanotic stool. He denies any history of drugs. He is not suicidal or homicidal. Related Data Home Medications Medication Instructions Recorded Confirmed buspirone 30 mg tablet 1 tab PO BID 12/03/21 07/07/22 amlodipine 5 mg tablet 1 tab PO DAILY 06/29/22 07/07/22 fluoxetine 40 mg capsule 1 cap PO DAILY 06/29/22 07/07/22 omeprazole 20 mg capsule,delayed 1 cap PO DAILY 06/29/22 07/07/22 release trazodone 50 mg tablet 1 tab PO BEDTIME 06/29/22 07/07/22 hydroxyzine HCl 50 mg tablet 50 mg PO BID PRN Anxiety 07/07/22 07/07/22 Previous Rx's Medication Instructions Recorded folic acid 1 mg tablet 1 mg PO DAILY #30 tabs 07/10/22 melatonin 3 mg tablet 6 mg PO BEDTIME PRN Insomnia #30 07/10/22 tabs thiamine HCl (vitamin B1) 100 mg 100 mg PO DAILY #30 tabs 07/10/22 tablet Allergies Allergy/AdvReac Type Severity Reaction Status Date / Time No Known Allergies Allergy Unknown UNKNOWN Verified 09/19/21 10:42 [NO KNOWN ALLERGIES] PMFSH Past Medical History Medical History Alcohol use disorder, severe, dependence Alcohol use disorder, severe, in early remission Anxiety and depression ETOH abuse Hypertension Psychiatric disturbance Social History Social History Household Members: Family Housing: House Do you presently have visiting nurse or other home services: No Alcohol intake: current Alcohol intake frequency: 3 or more drinks per day Alcohol type: hard liquor Patient Tobacco Use Status: Never used Tobacco Smoked in Last 30 Days: No e-Cigarette/Vaping Use: Never Used Second Hand Smoke Exposure: No Use of substances other than those prescribed or required for medical reasons: No Substance Use Type: Marijuana Advance Directives: Yes Advance Directives on File: Yes Advance Directives Date on File: 01/08/21 service: No Current occupational status: unemployed Sexual orientation: Straight/Heterosexual Physical Exam ED Vital Signs: Vital Signs - 24 hr 09/26/22 20:46 09/26/22 20:56 09/26/22 22:00 Temperature 98.0 F 97.8 F Pulse Rate 115 H 116 H 105 H Respiratory Rate 16 16 16 Blood Pressure 149/85 H 149/85 H 155/98 H Pulse Oximetry 96 95 95 Oxygen Delivery Method Room Air Room Air Room Air 09/26/22 23:26 09/27/22 01:25 Temperature 98.2 F Pulse Rate 98 94 Respiratory Rate 16 18 Blood Pressure 134/89 109/52 L Pulse Oximetry 98 98 Oxygen Delivery Method Room Air BMI result Body Mass Index 27.3 GEN: Well developed, no acute distress, alert, oriented HEENT: Normocephalic, atraumatic, normal external ears, nose appears normal, no oropharyngeal edema or exudates Eyes: Normal to appearance Neck: Supple, no lymphadenopathy Respiratory: Talks in complete sentences, no respiratory distress, clear to auscultation bilaterally Cardiovascular: Regular rate and rhythm, no murmurs rubs or gallops, tachycardic Abdomen: Soft, nontender, nondistended, no guarding, no rebound Back: No CVA tenderness Extremities: No clubbing cyanosis or edema Neurologic: No focal neurologic deficits, cranial nerves 2-12 intact, strength is 5/5 bilaterally, tremulous Skin: No rash Course Course Course Narrative: 36-year-old male presents with either acute alcohol intoxication or alcohol withdrawal. Patient is tremulous, tachycardic and hypertensive. I will provide the patient with Ativan, Zofran. At this point I also believe patient would best be served by be put on monitor 1st tachycardia for blood pressure. This will help us to adjust his medications as needed for alcohol withdrawal. He is not suicidal or homicidal. Patient will have a care team evaluation to see if we can provide any additional assistance to him. Reevaluation(s) Reevaluation #1: patient intoxicated, pending care team evaluation. Dr. Adams to assume care at this time Time: 02:00 Medical Decision Making Medical Decision Making [facility] Narrative: Patient presents with alcohol withdrawal. Patient reports his last drink was yesterday. He is tremulous, tachycardic and hypertensive. He is also having active nausea vomiting. Patient does appear to be actively withdrawing as opposed to acute alcohol intoxication. Does appear to be somewhat confused and having some difficulty finding words. I will provide the patient with IV fluids, multivitamin, thiamine and folic acid. Patient received Ativan right now. He has received Zofran for nausea vomiting. I will put in a care team consultation. Differential Diagnosis Differential Diagnoses: The differential diagnosis associated with the presentation includes (Alcohol intoxication, alcohol withdrawal, depression, anxiety) Admission/Observation Consideration of admission/observation: Escalation of care including admission/observation considered Lab Data [facility] Lab Attestation statement: I reviewed the patient's lab results. 09/26/22 22:22 09/26/22 22:22 Labs: Lab Results 09/26/22 09/26/22 09/26/22 Range/Units 22:21 22:22 22:22 WBC 6.6 (4.8-10.8) X10*3/uL RBC 5.04 (4.60-5.80) X10*6/uL Hgb 14.4 (14.0-18.0) g/dl Hct 41.4 L (42.0-52.0) % MCV 82.1 (80.0-98.0) fL MCH 28.6 (27.0-33.0) pg MCHC 34.8 (31.0-36.0) g/dl RDW 13.1 (11.0-16.0) % Plt Count 195 (160-400) X10*3/uL MPV 8.5 L (9.4-12.4) fL Immature Gran % (Auto) 0.3 (0.0-0.4) % Neut % (Auto) 66.7 (45-73) % Lymph % (Auto) 21.7 (20-40) % [place] % (Auto) 10.3 (2-11) % Eos % (Auto) 0.2 (0-4) % Baso % (Auto) 0.8 (0-2) % Lymph # (Auto) 1.4 (1.2-4.9) X10*3/uL [place]min[place] # (Auto) 0.7 (0.1-1.2) X10*3/uL Eos # (Auto) 0.0 (0.0-0.4) X10*3/uL Baso # (Auto) 0.1 (0.0-0.2) X10*3/uL Abs Immat Gran (auto) 0.02 (0.00-0.03) X10*3/uL Absolute Neuts (auto) 4.4 (2.0-8.3) x10*3/uL Absolute Nucleated RBC 0.000 (0.0-0.012) X10*3/uL Nucleated RBC % (auto) 0.0 (0.0-0.2) /100WBC Sodium 145 (135-145) mmol/L Potassium 3.4 (3.3-5.1) mmol/L Chloride 103 (96-108) mmol/L Carbon Dioxide 26 (22-29) mmol/L Anion Gap 19 (12-20) BUN 12 (9-16) mg/dL Creatinine 1.01 (0.5-1.4) mg/dL Estim Creat Clear Calc 97.8 Estimated GFR > 60 Random Glucose 102 (60-115) mg/dL Calcium 8.8 (8.4-10.2) mg/dL Total Bilirubin 0.2 (0.0-1.0) mg/dL AST 62 H (5-37) U/L ALT 108 H (0-40) U/L Alkaline Phosphatase 65 (39-117) U/L Total Protein 8.0 (6.5-8.0) g/dL Albumin 4.8 (3.5-5.0) g/dL Urine Color Urine Appearance Urine pH (5.0-9.0) Ur Specific [place] (1.005-1.025) Urine Protein (Neg-Trace) mg/dL Urine Glucose (UA) (Negative) mg/dL Urine Ketones (Negative) mg/dL Urine Blood (Negative) Urine Nitrite (Negative) Ur Leukocyte Esterase (Negative) Urine RBC (0-2) /HPF Urine WBC (0-5) /HPF Ur Squamous Epith Cells (0-2) /HPF Urine Bacteria (None Seen) Hyaline Casts (0-2) /LPF Urine Opiates Screen (Not Detect) Urine Fentanyl Screen (Not Detect) Ur Barbiturates Screen (Not Detect) Ur Phencyclidine Scrn (Not Detect) Ur Amphetamines Screen (Not Detect) U Benzodiazepines Scrn (Not Detect) Urine Cocaine Screen (Not Detect) U Marijuana (THC) Screen (Not Detect) Ethyl Alcohol 397 H* mg/dL COVID-19 (LUCI) Negative (Negative) COVID-19 Clin Com See Note 09/26/22 09/26/22 Range/Units 23:45 23:45 WBC (4.8-10.8) X10*3/uL RBC (4.60-5.80) X10*6/uL Hgb (14.0-18.0) g/dl Hct (42.0-52.0) % MCV (80.0-98.0) fL MCH (27.0-33.0) pg MCHC (31.0-36.0) g/dl RDW (11.0-16.0) % Plt Count (160-400) X10*3/uL MPV (9.4-12.4) fL Immature Gran % (Auto) (0.0-0.4) % Neut % (Auto) (45-73) % Lymph % (Auto) (20-40) % [place]min[place] % (Auto) (2-11) % Eos % (Auto) (0-4) % Baso % (Auto) (0-2) % Lymph # (Auto) (1.2-4.9) X10*3/uL [place] # (Auto) (0.1-1.2) X10*3/uL Eos # (Auto) (0.0-0.4) X10*3/uL Baso # (Auto) (0.0-0.2) X10*3/uL Abs Immat Gran (auto) (0.00-0.03) X10*3/uL Absolute Neuts (auto) (2.0-8.3) x10*3/uL Absolute Nucleated RBC (0.0-0.012) X10*3/uL Nucleated RBC % (auto) (0.0-0.2) /100WBC Sodium (135-145) mmol/L Potassium (3.3-5.1) mmol/L Chloride (96-108) mmol/L Carbon Dioxide (22-29) mmol/L Anion Gap (12-20) BUN (9-16) mg/dL Creatinine (0.5-1.4) mg/dL Estim Creat Clear Calc Estimated GFR Random Glucose (60-115) mg/dL Calcium (8.4-10.2) mg/dL Total Bilirubin (0.0-1.0) mg/dL AST (5-37) U/L ALT (0-40) U/L Alkaline Phosphatase (39-117) U/L Total Protein (6.5-8.0) g/dL Albumin (3.5-5.0) g/dL Urine Color Yellow Urine Appearance Clear Urine pH 7.0 (5.0-9.0) Ur Specific [place] 1.010 (1.005-1.025) Urine Protein 30 (1+) H (Neg-Trace) mg/dL Urine Glucose (UA) Negative (Negative) mg/dL Urine Ketones Negative (Negative) mg/dL Urine Blood Negative (Negative) Urine Nitrite Negative (Negative) Ur Leukocyte Esterase Negative (Negative) Urine RBC 0-2 (0-2) /HPF Urine WBC 0-5 (0-5) /HPF Ur Squamous Epith Cells 0-2 (0-2) /HPF Urine Bacteria None Seen (None Seen) Hyaline Casts 0-2 (0-2) /LPF Urine Opiates Screen Not Detected (Not Detect) Urine Fentanyl Screen Not Detected (Not Detect) Ur Barbiturates Screen Not Detected (Not Detect) Ur Phencyclidine Scrn Not Detected (Not Detect) Ur Amphetamines Screen Not Detected (Not Detect) U Benzodiazepines Scrn Not Detected (Not Detect) Urine Cocaine Screen Not Detected (Not Detect) U Marijuana (THC) Screen Not Detected (Not Detect) Ethyl Alcohol mg/dL COVID-19 (LUCI) (Negative) COVID-19 Clin Com Independent Interpretation I performed an independent interpretation of an: EKG (Normal sinus rhythm heart rate 100, normal intervals, no acute ST elevations depressions) Tests considered The following testing was considered but not selected: CT scan head Prescription Management I considered prescription management with: Other (Anxiety medication) Chronic Conditions Patient?s care impacted by: Other (Chronic alcohol abuse) Medications Administered Discontinued Medications Generic Name Dose Route Start Last Admin Trade Name Davey PRN Reason Stop Dose Admin Famotidine 20 mg 09/26/22 22:13 09/26/22 22:27 Famotidine/Pf 20 Mg/2 Ml Vial IVPUSH 09/26/22 22:14 20 mg ONCE ONE Administration Sodium Chloride 1,000 mls @ 999 mls/hr 09/26/22 22:15 09/26/22 23:38 Ns IV 09/26/22 23:15 Infused .Q1H1M VANESSA Infusion Folic Acid 1 mg/ Sodium 50.2 mls @ 100.4 mls/hr 09/26/22 22:06 09/26/22 23:38 Chloride IV 09/26/22 22:35 Infused ONCE ONE Infusion Thiamine HCl 100 mg/ Sodium 101 mls @ 202 mls/hr 09/26/22 22:06 09/26/22 22:59 Chloride IV 09/26/22 22:35 Infused ONCE ONE Infusion Lorazepam 2 mg 09/26/22 21:56 09/26/22 22:00 Lorazepam 1 Mg Tablet PO 09/26/22 21:57 2 mg ONCE ONE Administration Multivitamins/Vitamin C 1 tab 09/26/22 22:06 09/26/22 22:26 Multivitamin Tablet PO 09/26/22 22:07 1 tab ONCE ONE Administration Ondansetron HCl 4 mg 09/26/22 21:31 09/26/22 21:34 Ondansetron Odt 4 Mg Tab.Rapdis TRANSLINGU 09/26/22 21:32 4 mg ONCE ONE Administration Ondansetron HCl 4 mg 09/26/22 21:56 09/26/22 22:00 Ondansetron Odt 4 Mg Tab.Rapdis TRANSLINGU 09/26/22 21:57 4 mg ONCE ONE Administration Discharge Plan Discharge Clinical Impression: Alcoholic intoxication Patient Disposition: Still a Patient Prescriptions: No Action fluoxetine 40 mg capsule 1 cap PO DAILY trazodone 50 mg tablet 1 tab PO BEDTIME amlodipine 5 mg tablet 1 tab PO DAILY omeprazole 20 mg capsule,delayed release(DR/EC) 1 cap PO DAILY buspirone 30 mg tablet 1 tab PO BID hydroxyzine HCl 50 mg Tablet 50 mg PO BID PRN (Reason: Anxiety) melatonin 3 mg Tablet 6 mg PO BEDTIME PRN (Reason: Insomnia) Qty: 30 0RF thiamine HCl (vitamin B1) 100 mg tablet 100 mg PO DAILY Qty: 30 0RF folic acid 1 mg tablet 1 mg PO DAILY Qty: 30 0RF
--- NOTE | 2022-09-26 22:15 | ECG_ITS ---
Test Reason : ETOH Blood Pressure : / mmHG Vent. Rate : 100 BPM Atrial Rate : 100 BPM P-R Int : 168 ms QRS Dur : 084 ms QT Int : 346 ms P-R-T Axes : 040 000 030 degrees QTc Int : 446 ms Normal sinus rhythm Normal ECG When compared with ECG of 28-JUN-2022 16:24, Minimal criteria for Inferior infarct are no longer Present Referred By: Kushal Patrick Electronically Signed By:Librado Chanel
[2022-09-26] MEDS: 0.9 % Sodium Chloride 1,000 ML 999 ML IV (22:25)
[2022-09-26] MEDS: Multivitamin TABLET 1 TAB PO (22:26)
[2022-09-26] MEDS: Thiamine HCL 100 MG in 0.9 % Sodium Chloride 100 ML 202 MG IV (22:26)
[2022-09-26] MEDS: Famotidine/PF 20 MG/2 ML VIAL IVPUSH (22:27)
[2022-09-26 22:30] LABS: Basophils Absolute Auto 0.1 X10*3/uL (0.0-0.2); Basophils Percent Auto 0.8 % (0-2); Eosinophils Percent Auto 0.2 % (0-4); Hematocrit 41.4 % (42.0-52.0); Hemoglobin 14.4 g/dl (14.0-18.0); Imm Gran Abs Auto 0.02 X10*3/uL (0.00-0.03); Imm Gran Pct Auto 0.3 % (0.0-0.4); Lymphocytes Absolute Auto 1.4 X10*3/uL (1.2-4.9); Lymphocytes Percent Auto 21.7 % (20-40); MANUAL DIFF FLAG NO; Mean Corpuscular HGB Conc 34.8 g/dl (31.0-36.0); Mean Corpuscular Hemoglobin 28.6 pg (27.0-33.0); Mean Corpuscular Volume 82.1 fL (80.0-98.0); Mean Platelet Volume 8.5 fL (9.4-12.4); Monocytes Absolute Auto 0.7 X10*3/uL (0.1-1.2); Monocytes Percent Auto 10.3 % (2-11); Neutrophils Absolute Auto 4.4 x10*3/uL (2.0-8.3); Neutrophils Percent Auto 66.7 % (45-73); Platelet Count 195 X10*3/uL (160-400); Red Blood Count 5.04 X10*6/uL (4.60-5.80); Red Cell Distribution Width 13.1 % (11.0-16.0); White Blood Count 6.6 X10*3/uL (4.8-10.8)
--- NOTE | 2022-09-26 22:40 | MHC.EDTECH ---
pt blood drawn and send to lab ,ekg done and was read by provider ,pt asked for ice water drank 3 cups ,warm blanket given .
[2022-09-26 22:44] LABS: Alanine Aminotransferase 108 U/L (0-40); Albumin Level 4.8 g/dL (3.5-5.0); Alkaline Phosphatase 65 U/L (39-117); Anion Gap 19 (12-20); Aspartate Amino Transferase 62 U/L (5-37); Bilirubin Total 0.2 mg/dL (0.0-1.0); Blood Urea Nitrogen 12 mg/dL (9-16); Calcium 8.8 mg/dL (8.4-10.2); Carbon Dioxide 26 mmol/L (22-29); Chloride 103 mmol/L (96-108); Creatinine Clr Calc Pharmacy 97.8; Estimated Glomerular Filt Rate > 60; Ethanol 397 mg/dL; Glucose Random 102 mg/dL (60-115); Potassium 3.4 mmol/L (3.3-5.1); Sodium 145 mmol/L (135-145)
[2022-09-26 22:48] LABS: COVID-19 Test Negative (Negative); IDNOW Serial# BCCEAD1C
[2022-09-26] MEDS: Folic Acid 1 MG in 0.9 % Sodium Chloride 50 ML 100.4 MG IV (23:00)
[2022-09-26 23:26] VITALS: BP 134/89; PULSE 98; RESP 16; TEMP 36.8; O2SAT 98
--- NOTE | 2022-09-26 23:47 | MHC.EDTECH ---
PT 0000 VITALS SIGN TAKEN ,PT URINE SAMPLE COLLECTED AND SENT TO LAB .
[2022-09-26 23:56] LABS: Appearance Urine Clear; Color Urine Yellow; Glucose Urine UA Negative (Negative); Leukocyte Esterase Urine Negative (Negative); Nitrite Urine Negative (Negative); UMIC TRIGGER UACC YES; Urine Blood Negative (Negative); Urine Ketones Negative (Negative); Urine Protein 30 (1+) mg/dL (Neg-Trace)
[2022-09-27] VITALS (8 sets, daily range): BP systolic 109–158; BP diastolic 52–108; PULSE 79–133; RESP 15–20; TEMP 36.1–37.2; O2SAT 95–100; BMI 28.4
[2022-09-27 00:10] LABS: Amphetamine Screen Urine Not Detected (Not Detect); Barbiturates, Urine Not Detected (Not Detect); Cannabinoid Screen Urine Not Detected (Not Detect); Cocaine Screen Urine Not Detected (Not Detect); Opiate Screen Urine Not Detected (Not Detect); Phencyclidine Screen Urine Not Detected (Not Detect)
[2022-09-27 00:13] LABS: Bacteria Urine None Seen (None Seen); Hyaline Casts Urine 0-2 /LPF (0-2); RBC Urine 0-2 /HPF (0-2); Squamous Epithelial Cell Urine 0-2 /HPF (0-2); WBC Urine 0-5 /HPF (0-5)
[2022-09-27 00:26] LABS: Benzodiazepines Screen Urine Not Detected (Not Detect); Fentanyl, urine Not Detected (Not Detect)
[2022-09-27] MEDS: chlordiazePOXIDE HCl 25 MG CAPSULE PO (02:17)
[2022-09-27] MEDS: LORazepam 1 MG TABLET 2 MG PO ×2 (02:17→07:46)
--- NOTE | 2022-09-27 03:31 | PC.NURSE ---
after speaking to pt pt states he has thoughts of harming himself but has never ated upon those thoughts nor has made plans pt desires detox pt sees a therapist and saw his therapist just the other day h/o major depressive disorder states he lost his job, that other than that he has a lot to be happy about like his 'beautiful home and dog' states he does not know why he is like this when asked if something may have triggered him he responded that he would not know what would have
--- NOTE | 2022-09-27 04:00 | MHC.EDTECH ---
0400 rounding done ,vitals sign taken ,pt sleeping ,450 ml urine empty ,patient observer at bedside .
--- NOTE | 2022-09-27 05:40 | PC.NURSE ---
Patient just got transferred from [facility], independent ambulation, still under ETOH influence but coherent, med rec completed/pending provider's approval, asymptomatic of ETOH withdrawal at this time but at high risk, VSS, care team consult ordered/patient referred to recovery team for detox help and support, behavior non concerning, will continue to monitor,
--- NOTE | 2022-09-27 08:55 | MHC.RECOVRN ---
Met with pt in [facility] after consult placed to CARE Team for alcohol use/ATS. Pt laying down, eyes closed, easily awakens to voice. Pt reports being released from [facility] 1 month ago and immediately had a recurrence. Pt has been drinking 1 liter vodka daily since release. Pt is unsure about ATS at this time, states I get behind on bills and my mortgage and I can't do that. Pt has received Vivitrol in the past, reports it was unhelpful in maintaining abstinence or reducing use. Discussed other outpatient options as well, pt unsure. Pt requesting to rest and t/w return at a later time.
[2022-09-27] MEDS: busPIRone HCl 10 MG TABLET 30 MG PO ×2 (09:30→20:00)
[2022-09-27] MEDS: buPROPion HCl XL 150 MG TAB.ER.24H PO (09:30)
[2022-09-27] MEDS: Folic Acid 1 MG TABLET PO (09:30)
[2022-09-27] MEDS: FLUoxetine HCl 20 MG CAPSULE 40 MG PO (09:30)
[2022-09-27] MEDS: Omeprazole 20 MG CAPSULE.DR PO (09:30)
[2022-09-27] MEDS: amLODIPine Besylate 5 MG TABLET PO (09:30)
[2022-09-27] MEDS: Thiamine HCL 100 MG TABLET PO (09:30)
--- NOTE | 2022-09-27 10:45 | MHC.RECOVRN ---
Met with pt to follow up regarding desire for ATS. Pt states I feel much safer staying here for a few days. Pt aware he is not currently medically admitted, pt requesting medical admission. When asked if pt would be open to ATS if not medically admitted, pt states I just don't feel like that's safe for me right now. Attempted to ask pt multiple times if pt would be agreeable to ATS referrals, pt continues to state I've been through this a lot before and I know myself, I feel it's safest for me to be medically admitted. Discussed with RN and provider, provider to speak with pt. Will continue to follow.
[2022-09-27] MEDS: PHENobarbitaL sodium 130 MG/ML IM ONCE 273 MG IM (11:26)
[2022-09-27] MEDS: PHENobarbitaL sodium 130 MG/ML VIAL IM Q3Hx2 205.4 MG IM ×2 (14:24→18:03)
--- NOTE | 2022-09-27 14:48 | PM.IMHP ---
History of Present Illness Date of Service: 09/27/22 Chief Complaint: Alcohol withdrawal symptoms 36 year old man presenting with tremors, tachycardia and anxiety He drinks a liter of hard liquor daily and stopped drinking because he wants to go to detox. He denied chest pain, sob, n/v/d. no seizures or LOC. In the ED he was started on phenobarbitol protocol and IV fluids. Labs from 09/26/22 WNL. Noted tachycardia from withdrawal. BP mildly elevated. He will be placed on OBS for management of alcohol withdrawal. Review of Systems Review of Systems: Denies any recent fever chills or decrease in appetite respiratory denies any shortness of breath coverage production cardiovascular denied chest pain gastrointestinal denies any dysphagia abdominal pain nausea vomiting or diarrhea genitourinary denies any dysuria frequency or hematuria musculoskeletal denies any joint pain or swelling neuropsych denies any weakness or seizures all other systems reviewed are negative [facility] Medical History (Updated 09/27/22 @ 15:15 by Yuki Davis NP) Alcohol use disorder, severe, dependence Anxiety and depression Hypertension Psychiatric disturbance Family History (Updated 09/27/22 @ 15:16 by Yuki Davis NP) Other Lung cancer Social History Household Members: Family Housing: House Do you presently have visiting nurse or other home services: No Alcohol intake: current Alcohol intake frequency: 3 or more drinks per day Alcohol type: hard liquor Patient Tobacco Use Status: Never used Tobacco Smoked in Last 30 Days: No e-Cigarette/Vaping Use: Never Used Second Hand Smoke Exposure: No Use of substances other than those prescribed or required for medical reasons: No Substance Use Type: Marijuana Advance Directives: Yes Advance Directives on File: Yes Advance Directives Date on File: 01/08/21 service: No Current occupational status: unemployed Sexual orientation: Straight/Heterosexual Meds Allergies Allergy/AdvReac Type Severity Reaction Status Date / Time No Known Allergies Allergy Unknown UNKNOWN Verified 09/19/21 10:42 [NO KNOWN ALLERGIES] Active Medications: Current Medications Acetaminophen (Acetaminophen 325 Mg Tablet) 650 mg PO Q6H PRN PRN Reason: Pain, Mild (Pain Scale 1-3) Amlodipine Besylate (Amlodipine Besylate 5 Mg Tablet) 5 mg PO DAILY [facility]; Protocol Last Admin: 09/27/22 09:30 Dose: 5 mg Bupropion HCl (Bupropion Hcl Xl 150 Mg Tab.Er.24h) 150 mg PO DAILY [facility] Last Admin: 09/27/22 09:30 Dose: 150 mg Buspirone HCl (Buspirone Hcl 10 Mg Tablet) 30 mg PO BID [facility] Last Admin: 09/27/22 09:30 Dose: 30 mg Fluoxetine HCl (Fluoxetine Hcl 20 Mg Capsule) 40 mg PO DAILY [facility] Last Admin: 09/27/22 09:30 Dose: 40 mg Folic Acid (Folic Acid 1 Mg Tablet) 1 mg PO DAILY [facility] Last Admin: 09/27/22 09:30 Dose: 1 mg Lactated Ringer's (Lr) 1,000 mls @ 150 mls/hr IVCONT .Q6H40M [facility] Lorazepam (Lorazepam 1 Mg Tablet) 1 mg PO TID PRN PRN Reason: anxiety Melatonin (Melatonin 3 Mg Tablet) 6 mg PO BEDTIME PRN PRN Reason: Insomnia Omeprazole (Omeprazole 20 Mg Capsule.Dr) 20 mg PO DAILY@0630 [facility] Last Admin: 09/27/22 09:30 Dose: 20 mg Ondansetron HCl (Ondansetron Hcl 4 Mg/2 Ml Vial) 4 mg IVPUSH Q8H PRN PRN Reason: Nausea and Vomiting Pharmacy Consult (Consult Rx Etoh Phenob Im/Po) 1 each MISCELLANE ONCE PRN; Protocol PRN Reason: Consult order Phenobarbital (Phenobarbital 15 Mg Tablet) 45 mg PO BID [facility]; Protocol Stop: 09/29/22 09:01 Phenobarbital (Phenobarbital 15 Mg Tablet) 15 mg PO BID [facility]; Protocol Stop: 10/01/22 09:01 Phenobarbital (Phenobarbital 15 Mg Tablet) 15 mg PO DAILY [facility]; Protocol Stop: 10/03/22 09:01 Phenobarbital Sodium (Phenobarbital Sodium 130 Mg/Ml Vial Im Q3hx2) 205.4 mg IM Q3H [facility]; Protocol Stop: 09/27/22 17:31 Last Admin: 09/27/22 14:24 Dose: 205.4 mg Sodium Chloride (0.9 % Sodium Chloride Flush 3 Ml Syringe) 3 ml IVFLUSH QSHIFT [facility] Thiamine HCl (Thiamine Hcl 100 Mg Tablet) 100 mg PO DAILY [facility] Last Admin: 09/27/22 09:30 Dose: 100 mg Trazodone HCl (Trazodone Hcl 50 Mg Tablet) 50 mg PO BEDTIME [facility] Last Admin: 09/27/22 08:31 Dose: Not Given Home Medications Medication Instructions Recorded Confirmed Last Taken Type amlodipine 5 mg tablet 1 tab PO DAILY 06/29/22 09/27/22 06/27/22 History omeprazole 20 mg capsule,delayed 1 cap PO DAILY 06/29/22 09/27/22 06/27/22 History release bupropion HCl 100 mg tablet,12 hr 100 mg PO BID 09/27/22 09/27/22 Unknown History sustained-release buspirone 30 mg tablet 30 mg PO BID 09/27/22 09/27/22 Unknown History fluoxetine 40 mg capsule 40 mg PO DAILY 09/27/22 09/27/22 Unknown History lorazepam 1 mg tablet 1 mg PO TID PRN anxiety 09/27/22 09/27/22 Unknown History trazodone 50 mg tablet 50 mg PO BEDTIME 09/27/22 09/27/22 Unknown History Physical Exam Vital Signs and Narrative: Vital Signs: Last Vital Signs Temp 98.9 F 09/27/22 04:00 Pulse 114 H 09/27/22 14:19 Resp 16 09/27/22 14:19 BP 144/92 H 09/27/22 14:19 Pulse Ox 96 09/27/22 14:19 O2 Del Method Room Air 09/27/22 14:19 BMI result Body Mass Index 27.3 Appearing in no acute distress head is normocephalic atraumatic eyes pupils are PERRLA sclera is anicteric mouth throat mucous membranes are intact and moist neck is supple no lymphadenopathy, no JVD noted lung sounds are clear to auscultation heart regular rate rhythm, clear S1, S2 positive bowel sounds, abdomen is soft, nontender neuro patient is alert x3, no focal deficits Results Labs 09/26/22 22:22 09/26/22 22:22 Labs: Laboratory Results - last 24 hr 09/26/22 09/26/22 09/26/22 22:21 22:22 22:22 MCV 82.1 MCH 28.6 MCHC 34.8 RDW 13.1 Plt Count 195 MPV 8.5 L Immature Gran % (Auto) 0.3 Neut % (Auto) 66.7 Lymph % (Auto) 21.7 [place] % (Auto) 10.3 Eos % (Auto) 0.2 Baso % (Auto) 0.8 Lymph # (Auto) 1.4 [place] # (Auto) 0.7 Eos # (Auto) 0.0 Baso # (Auto) 0.1 Abs Immat Gran (auto) 0.02 Absolute Neuts (auto) 4.4 Absolute Nucleated RBC 0.000 Nucleated RBC % (auto) 0.0 Anion Gap 19 Estim Creat Clear Calc 97.8 Estimated GFR > 60 Random Glucose 102 Calcium 8.8 Total Bilirubin 0.2 AST 62 H ALT 108 H Alkaline Phosphatase 65 Total Protein 8.0 Albumin 4.8 Urine Color Urine Appearance Urine pH Ur Specific [place] Urine Protein Urine Glucose (UA) Urine Ketones Urine Blood Urine Nitrite Ur Leukocyte Esterase Urine RBC Urine WBC Ur Squamous Epith Cells Urine Bacteria Hyaline Casts Urine Opiates Screen Urine Fentanyl Screen Ur Barbiturates Screen Ur Phencyclidine Scrn Ur Amphetamines Screen U Benzodiazepines Scrn Urine Cocaine Screen U Marijuana (THC) Screen Ethyl Alcohol 397 H* COVID-19 ([facility]CI) Negative COVID-19 Clin Com See Note 09/26/22 09/26/22 23:45 23:45 MCV MCH MCHC RDW Plt Count MPV Immature Gran % (Auto) Neut % (Auto) Lymph % (Auto) [place] % (Auto) Eos % (Auto) Baso % (Auto) Lymph # (Auto) [place] # (Auto) Eos # (Auto) Baso # (Auto) Abs Immat Gran (auto) Absolute Neuts (auto) Absolute Nucleated RBC Nucleated RBC % (auto) Anion Gap Estim Creat Clear Calc Estimated GFR Random Glucose Calcium Total Bilirubin AST ALT Alkaline Phosphatase Total Protein Albumin Urine Color Yellow Urine Appearance Clear Urine pH 7.0 Ur Specific [place] 1.010 Urine Protein 30 (1+) H Urine Glucose (UA) Negative Urine Ketones Negative Urine Blood Negative Urine Nitrite Negative Ur Leukocyte Esterase Negative Urine RBC 0-2 Urine WBC 0-5 Ur Squamous Epith Cells 0-2 Urine Bacteria None Seen Hyaline Casts 0-2 Urine Opiates Screen Not Detected Urine Fentanyl Screen Not Detected Ur Barbiturates Screen Not Detected Ur Phencyclidine Scrn Not Detected Ur Amphetamines Screen Not Detected U Benzodiazepines Scrn Not Detected Urine Cocaine Screen Not Detected U Marijuana (THC) Screen Not Detected Ethyl Alcohol COVID-19 ([facility]) COVID-19 Clin Com Assessment and Plan (1) Alcoholic intoxication: Status: Acute Plan 36 year old man admitted with symptoms of alcohol withdrawal Alcohol withdrawal tremors, tachycardia and anxiety started on phenobarbitol protocol thiamine, folic acid continue LR addiction team consult PPI HTN continue amlodipine Mental health continue home medications DVT prophylaxis with early ambulation Full code OBS Time Spent With Patient Time: Total time managing care of this patient today ____ minutes. Quality Stroke Does the patient have a stroke diagnosis?: No VTE Prior VTE?: No VTE Risk Level:: Medical - moderate - high VTE Device Contraindication: N/A - Device Ordered VTE Drug Contraindication: Treatment Not Indicated
--- NOTE | 2022-09-27 17:22 | PC.NURSE ---
Patient is alert and oriented x 3 able to answer questions without difficulty. When asked if he was having suicidal ideation he stated not at this time. He stated when he was intoxicated earlier he was endorsing it but not now.
--- NOTE | 2022-09-27 17:49 | PC.NURSE ---
MD aware that patient is denying SI at this time stated ok to admit patient to medical floor.
--- NOTE | 2022-09-27 18:07 | PC.NURSE ---
Nurse to Nurse given to paramedic supervisor. SBP was above 100 PA Yeimi was made aware of this stated ok to give last IM dose of phenobarbital.
[2022-09-27] MEDS: Lactated Ringers 1,000 ML 150 ML IVCONT (19:56)
[2022-09-27] MEDS: 0.9 % Sodium Chloride Flush 3 ML SYRINGE IVFLUSH (19:56)
[2022-09-27] MEDS: traZODone HCL 50 MG TABLET PO (20:00)
[2022-09-27] MEDS: PHENobarbitaL 15 MG TABLET 45 MG PO (20:00)
[2022-09-28] MEDS: Lactated Ringers 1,000 ML 150 ML IVCONT (02:16)
[2022-09-28] MEDS: Omeprazole 20 MG CAPSULE.DR PO (05:48)
[2022-09-28 06:52] LABS: Hematocrit 38.2 % (42.0-52.0); Mean Corpuscular Hemoglobin 28.5 pg (27.0-33.0); Mean Corpuscular Volume 83.8 fL (80.0-98.0); Mean Platelet Volume 9.9 fL (9.4-12.4); Platelet Count 171 X10*3/uL (160-400); Red Blood Count 4.56 X10*6/uL (4.60-5.80); Red Cell Distribution Width 12.8 % (11.0-16.0); White Blood Count 3.8 X10*3/uL (4.8-10.8)
[2022-09-28 06:59] LABS: Anion Gap 12 (12-20); Blood Urea Nitrogen 8 mg/dL (9-16); Calcium 9.4 mg/dL (8.4-10.2); Carbon Dioxide 32 mmol/L (22-29); Chloride 99 mmol/L (96-108); Creatinine Clr Calc Pharmacy 124.4; Estimated Glomerular Filt Rate > 60; Glucose Random 99 mg/dL (60-115); Potassium 3.2 mmol/L (3.3-5.1); Sodium 140 mmol/L (135-145)
[2022-09-28 07:00] LABS: Magnesium 1.8 mg/dL (1.6-2.6)
[2022-09-28] MEDS: FLUoxetine HCl 20 MG CAPSULE 40 MG PO (07:45)
[2022-09-28] MEDS: busPIRone HCl 10 MG TABLET 30 MG PO ×2 (07:45→20:21)
[2022-09-28] MEDS: Potassium Chloride ER 20 MEQ TAB.ER.PRT 40 MEQ PO (07:45)
[2022-09-28] MEDS: PHENobarbitaL 15 MG TABLET 45 MG PO ×2 (07:45→20:22)
[2022-09-28] MEDS: Folic Acid 1 MG TABLET PO (07:46)
[2022-09-28] MEDS: buPROPion HCl XL 150 MG TAB.ER.24H PO (07:46)
[2022-09-28] MEDS: Thiamine HCL 100 MG TABLET PO (07:46)
[2022-09-28] MEDS: KCl 20 mEq in 0.9 % Sodium ChL 20 MEQ/1,000 ML IV.SOLN 150 MEQ IVCONT ×3 (07:49→20:22)
[2022-09-28 07:54] VITALS: BP 134/81; PULSE 55; RESP 18; TEMP 36.4; O2SAT 97
[2022-09-28] MEDS: amLODIPine Besylate 5 MG TABLET PO (08:16)
--- NOTE | 2022-09-28 09:50 | HO.PM.IMPN ---
Subjective Subjective Date of Service: 09/28/22 Interval History: Follow up Alcohol withdrawal feeling better no tremors Physical Exam Vital Signs: Vital Signs: Last Vital Signs Temp 97.6 F 09/28/22 07:54 Pulse 55 09/28/22 07:54 Resp 18 09/28/22 07:54 BP 134/81 09/28/22 07:54 Pulse Ox 97 09/28/22 07:54 O2 Del Method Room Air 09/28/22 07:54 BMI result Body Mass Index 28.4 Appearing in no acute distress lung sounds are clear to auscultation heart regular rate rhythm, clear S1, S2 positive bowel sounds, abdomen is soft, nontender neuro patient is alert x3, no focal deficits Objective Data Active Medications Acetaminophen (Acetaminophen 325 Mg Tablet) 650 mg PO Q6H PRN PRN Reason: Pain, Mild (Pain Scale 1-3) Amlodipine Besylate (Amlodipine Besylate 5 Mg Tablet) 5 mg PO DAILY [facility]; Protocol Last Admin: 09/28/22 08:16 Dose: 5 mg Documented By: KENRICK Bupropion HCl (Bupropion Hcl Xl 150 Mg Tab.Er.24h) 150 mg PO DAILY [facility] Last Admin: 09/28/22 07:46 Dose: 150 mg Documented By: KENRICK Buspirone HCl (Buspirone Hcl 10 Mg Tablet) 30 mg PO BID [facility] Last Admin: 09/28/22 07:45 Dose: 30 mg Documented By: KENRICK Fluoxetine HCl (Fluoxetine Hcl 20 Mg Capsule) 40 mg PO DAILY [facility] Last Admin: 09/28/22 07:45 Dose: 40 mg Documented By: KENRICK Folic Acid (Folic Acid 1 Mg Tablet) 1 mg PO DAILY [facility] Last Admin: 09/28/22 07:46 Dose: 1 mg Documented By: KENRICK Potassium Chloride/Sodium Chloride (Kcl 20 Meq In 0.9 % Sodium Chl) 20 meq in 1,000 mls @ 150 mls/hr IVCONT .Q6H40M [facility] Last Admin: 09/28/22 07:49 Dose: 150 mls/hr Documented By: KENRICK Lorazepam (Lorazepam 1 Mg Tablet) 1 mg PO TID PRN PRN Reason: anxiety Melatonin (Melatonin 3 Mg Tablet) 6 mg PO BEDTIME PRN PRN Reason: Insomnia Omeprazole (Omeprazole 20 Mg Capsule.Dr) 20 mg PO DAILY@0630 [facility] Last Admin: 09/28/22 05:48 Dose: 20 mg Documented By: LYNDSEY Ondansetron HCl (Ondansetron Hcl 4 Mg/2 Ml Vial) 4 mg IVPUSH Q8H PRN PRN Reason: Nausea and Vomiting Pharmacy Consult (Consult Rx Etoh Phenob Im/Po) 1 each MISCELLANE ONCE PRN; Protocol PRN Reason: Consult order Phenobarbital (Phenobarbital 15 Mg Tablet) 45 mg PO BID [facility]; Protocol Stop: 09/29/22 09:01 Last Admin: 09/28/22 07:45 Dose: 45 mg Documented By: KENRICK Phenobarbital (Phenobarbital 15 Mg Tablet) 15 mg PO BID [facility]; Protocol Stop: 10/01/22 09:01 Phenobarbital (Phenobarbital 15 Mg Tablet) 15 mg PO DAILY [facility]; Protocol Stop: 10/03/22 09:01 Sodium Chloride (0.9 % Sodium Chloride Flush 3 Ml Syringe) 3 ml IVFLUSH QSHIFT [facility] Last Admin: 09/28/22 07:22 Dose: Not Given Documented By: KENRICK Non-Admin Reason: IV Running Thiamine HCl (Thiamine Hcl 100 Mg Tablet) 100 mg PO DAILY [facility] Last Admin: 09/28/22 07:46 Dose: 100 mg Documented By: KENRICK Trazodone HCl (Trazodone Hcl 50 Mg Tablet) 50 mg PO BEDTIME [facility] Last Admin: 09/27/22 20:00 Dose: 50 mg Documented By: LYNDSEY Labs 09/28/22 05:47 09/28/22 05:47 Labs: Laboratory Results - last 24 hr 09/28/22 09/28/22 09/28/22 05:47 05:47 05:47 MCV 83.8 MCH 28.5 MCHC 34.0 RDW 12.8 Plt Count 171 MPV 9.9 Absolute Nucleated RBC 0.000 Nucleated RBC % (auto) 0.0 Anion Gap 12 Estim Creat Clear Calc 124.4 Estimated GFR > 60 Random Glucose 99 Calcium 9.4 D Magnesium 1.8 Assessment and Plan (1) Alcoholic intoxication: Status: Acute Plan 36 year old man admitted with symptoms of alcohol withdrawal Alcohol withdrawal tremors, tachycardia and anxiety. Resolving continue phenobarbitol protocol, thiamine, folic acid addiction team consult PPI Hypokalemia replete Transaminitis Secondary to alcohol use HTN continue amlodipine Mental health continue home medications DVT prophylaxis with early ambulation Attending Dr. Vasquez Full code continue hospital stay for treatment of alcohol withdrawal requiring phenobarbital and close monitoring Time Spent With Patient Time: Total time managing care of this patient today ____ minutes. Quality Stroke Does the patient have a stroke diagnosis?: No VTE Prior VTE?: No VTE Risk Level:: Medical - moderate - high VTE Device Contraindication: N/A - Device Ordered VTE Drug Contraindication: Treatment Not Indicated
[2022-09-28] MEDS: LORazepam 1 MG TABLET PO (12:29)
[2022-09-28] MEDS: PHENobarbitaL sodium 130 MG/ML VIAL IM Q3Hx2 205.4 MG IM (14:47)
[2022-09-28 16:00] VITALS: BP 134/80; PULSE 76; RESP 14; TEMP 36.7; O2SAT 98
[2022-09-28 19:13] VITALS: BP 137/88; PULSE 97; RESP 14; TEMP 36.2; O2SAT 96
[2022-09-28] MEDS: traZODone HCL 50 MG TABLET PO (20:22)
[2022-09-28] MEDS: Melatonin 3 MG TABLET 6 MG PO (20:24)
[2022-09-29] MEDS: KCl 20 mEq in 0.9 % Sodium ChL 20 MEQ/1,000 ML IV.SOLN 150 MEQ IVCONT (02:47)
[2022-09-29 04:00] VITALS: BP 134/74; PULSE 65; RESP 16; TEMP 36; O2SAT 96
[2022-09-29] MEDS: Omeprazole 20 MG CAPSULE.DR PO (06:02)
--- NOTE | 2022-09-29 06:49 | PHA.MEDREC ---
Pharmacy Consult ? Medication Reconciliation Pharmacy has completed the medication reconciliation. COMPLETED BY RN REVIEWED BY PHARMACY HERMANN
[2022-09-29 07:43] VITALS: BP 128/86; PULSE 61; RESP 16; TEMP 36.1; O2SAT 98
[2022-09-29] MEDS: PHENobarbitaL 15 MG TABLET 45 MG PO (07:52)
[2022-09-29] MEDS: busPIRone HCl 10 MG TABLET 30 MG PO (07:53)
[2022-09-29] MEDS: buPROPion HCl XL 150 MG TAB.ER.24H PO (07:53)
[2022-09-29] MEDS: Thiamine HCL 100 MG TABLET PO (07:53)
[2022-09-29] MEDS: FLUoxetine HCl 20 MG CAPSULE 40 MG PO (07:53)
[2022-09-29] MEDS: amLODIPine Besylate 5 MG TABLET PO (07:53)
[2022-09-29] MEDS: Folic Acid 1 MG TABLET PO (07:53)
[2022-09-29 09:08] LABS: Anion Gap 11 (12-20); Blood Urea Nitrogen 6 mg/dL (9-16); Calcium 9.1 mg/dL (8.4-10.2); Carbon Dioxide 27 mmol/L (22-29); Chloride 104 mmol/L (96-108); Creatinine Clr Calc Pharmacy 128.8; Estimated Glomerular Filt Rate > 60; Potassium 4.1 mmol/L (3.3-5.1); Sodium 138 mmol/L (135-145)
--- NOTE | 2022-09-29 09:23 | PM.DS ---
DS: Providers Provider Date of Service: 09/29/22 Date of admission: 09/28/22 09:55 Primary care physician: Unknown Physician Consults: 09/26/22 22:14 Consult to Care Team Stat Comment: Reason for consultation: Alcohol related illness 09/27/22 14:47 Addiction Medicine Routine Consulting Provider: Addiction Covering Reason for consultation: ETOH DS: Diagnosis Discharge Diagnosis (1) Alcoholic intoxication: Status: Acute DS: Summary Hospital Course Hospital Course: 36 year old man presenting with tremors, tachycardia and anxiety He drinks a liter of hard liquor daily and stopped drinking because he wants to go to detox. He denied chest pain, sob, n/v/d. no seizures or LOC. In the ED he was started on phenobarbitol protocol and IV fluids. Labs from 09/26/22 WNL.? Noted tachycardia from withdrawal. BP mildly elevated. He will be placed on OBS for management of alcohol withdrawal. Alcohol withdrawal. Resolved. Initially with tremors, tachycardia and anxiety. Treated with phenobarbitol, thiamine, folic acid, PPI and IV fluids. Encouraged to stop drinking alcohol and seek help for his alcohol addiction as well as his mental health. He was noted to have hypokalemia, that reosolved after being repleted as well as transaminitis that was related to the alcohol use. His blood pressure remained stable with amlodipine. He should continue taking his medications for depression. Time Spent with Patient Time attestation: Total time managing care of this patient today ____ minutes. Discharge coordination time: Greater than 30 minutes Quality: Safe Use of Opioids Does Pt have an Active Cancer Diagnosis on the Problem List?: No Quality: Stroke Does the patient have a stroke diagnosis?: No Physical Exam Vital Signs: Vital Signs: Last Vital Signs Temp 96.9 F 09/29/22 07:43 Pulse 61 09/29/22 07:43 Resp 16 09/29/22 07:43 BP 128/86 09/29/22 07:43 Pulse Ox 98 09/29/22 07:43 O2 Del Method Room Air 09/29/22 07:43 BMI result Body Mass Index 28.4 Appearing in no acute distress head is normocephalic atraumatic eyes pupils are PERRLA sclera is anicteric mouth throat mucous membranes are intact and moist neck is supple no lymphadenopathy, no JVD noted lung sounds are clear to auscultation heart regular rate rhythm, clear S1, S2 positive bowel sounds, abdomen is soft, nontender neuro patient is alert x3, no focal deficits DS: Data Data Completed and Pending Completed studies during hospitalization [Text1]: Procedures Detoxification Services for Substance Abuse Treatment (07/07/22) Labs on day of discharge: Laboratory Results - last 24 hr 09/29/22 07:31 Sodium 138 Potassium 4.1 D Chloride 104 Carbon Dioxide 27 Anion Gap 11 L BUN 6 L Creatinine 0.84 Estim Creat Clear Calc 128.8 Estimated GFR > 60 Calcium 9.1 Discharge Plan Discharge Anticipated Discharge Date/Time: 09/29/22 09:18 Patient Disposition: Home, Self-Care Discharge Diagnosis: Alcohol intoxication with withdrawal Discharge Medications: Continued amlodipine 5 mg tablet 1 tab PO DAILY omeprazole 20 mg capsule,delayed release(DR/EC) 1 cap PO DAILY melatonin 3 mg Tablet 6 mg PO BEDTIME PRN (Reason: Insomnia) Qty: 30 0RF thiamine HCl (vitamin B1) 100 mg tablet 100 mg PO DAILY Qty: 30 0RF folic acid 1 mg tablet 1 mg PO DAILY Qty: 30 0RF fluoxetine 40 mg capsule 40 mg PO DAILY trazodone 50 mg tablet 50 mg PO BEDTIME bupropion HCl 100 mg tablet sustained-release 12 hr 100 mg PO BID buspirone 30 mg tablet 30 mg PO BID lorazepam 1 mg tablet 1 mg PO TID PRN (Reason: anxiety) Discharge Orders: Discharge Order (Routine); Ordered 09/29/22 Ordered By: Yuki Davis Diet: Advance to usual diet Activity on Discharge: As tolerated Stand Alone Forms: Patient Portal Discharge page Care Plan Goals: Stop drinking alcohol Health Concerns: Alcohol intoxication with withdrawal Plan of Treatment: Follow up with primary care provider as needed Follow up with outpatient resources for alcohol addiction and mental health Assessment: See discharge summary
--- NOTE | 2022-09-29 09:59 | MHC.CM.PN ---
Addendum entered by Leeanna Jackson 09/29/22 10:18: Patient is discharged today to home self care. Bus passes were provided to the patient for transportation home. Original Note: SZYMANSKI 09/29/22 Male independent all functional mobility. DP hp[facility] self care patient needs assist with transport. Vaxxed NO HCP.
[2022-09-29 12:01] LABS: Glucose Random 102 mg/dL (60-115)
== END 2022-09-29 14:01 | disposition home or self-care (01) | DRG 775 ==
LOC: HO.ED 09-27 14:27 → HO.EDOVER 09-27 14:36 → HO.S3 09-27 17:42
PROVIDERS: Admitting Provider Nurse Practitioner Acute Care; Emergency Provider Emergency Medicine; Visit Provider Nurse Practitioner Acute Care
DX: F10.239 Alcohol dependence with withdrawal, unspecified (principal); F10.229 Alcohol dependence with intoxication, unspecified; E87.6 Hypokalemia; I10 Essential (primary) hypertension; Y90.8 Blood alcohol level of 240 mg/100 ml or more; Z20.822 Contact with and (suspected) exposure to COVID-19; Z79.899 Other long term (current) drug therapy
CPT/HCPCS: 36415; 80048; 80053; 80307; 81001; 82077; 83735; 85025; 85027; 87635; 93005; 99285; J2560; J3411

== ENCOUNTER 2022-11-24 13:19 | Emergency (ER) | payer MEDICAID, SELFPAY ==
--- NOTE | 2022-11-24 13:26 | ED_ITS ---
HPI - Alcohol General Chief Complaint: ETOH/Substance Use Stated Complaint: ETOH Time Seen by Provider: 11/24/22 13:24 Source: patient, EMS, RN notes reviewed and old records reviewed Mode of arrival: EMS History of Present Illness HPI narrative: 36-year-old male with a past medical history of ETOH abuse disorder, anxiety, depression, HTN, presenting to the ED via EMS complaining of ETOH intoxication/dependent. Patient states he ended a [facility] on Thursday, has been drinking since discharge, about 1 bottle of gin or vodka daily, last drink [employer]. Reports nausea, abdominal discomfort, & decreased food intake. Denies fever, chills, urinary sx, illicit drug use, SI/HI MD complaint: alcohol intoxication Related Data Home Medications Medication Instructions Recorded Confirmed amlodipine 5 mg tablet 1 tab PO DAILY 06/29/22 09/27/22 omeprazole 20 mg capsule,delayed 1 cap PO DAILY 06/29/22 09/27/22 release bupropion HCl 100 mg tablet,12 hr 100 mg PO BID 09/27/22 09/27/22 sustained-release buspirone 30 mg tablet 30 mg PO BID 09/27/22 09/27/22 fluoxetine 40 mg capsule 40 mg PO DAILY 09/27/22 09/27/22 lorazepam 1 mg tablet 1 mg PO TID PRN anxiety 09/27/22 09/27/22 trazodone 50 mg tablet 50 mg PO BEDTIME 09/27/22 09/27/22 Previous Rx's Medication Instructions Recorded folic acid 1 mg tablet 1 mg PO DAILY #30 tabs 07/10/22 melatonin 3 mg tablet 6 mg PO BEDTIME PRN Insomnia #30 07/10/22 tabs thiamine HCl (vitamin B1) 100 mg 100 mg PO DAILY #30 tabs 07/10/22 tablet Allergies Allergy/AdvReac Type Severity Reaction Status Date / Time No Known Allergies Allergy Unknown UNKNOWN Verified 09/19/21 10:42 [NO KNOWN ALLERGIES] Review of Systems Review of Systems: Constitutional: No Fever, No Chills, No Fatigue, No Malaise ENT/Mouth: No Ear Pain, No sore throat, No Rhinorrhea, No Swallowing Difficulty Eyes: No Eye Pain, No Swelling, No Redness,No Vision Changes Cardiovascular: No Chest Pain, No SOB, No Edema, No Palpitations Respiratory: No Cough, No Sputum, No Dyspnea Gastrointestinal: + Nausea, + Vomiting, No Diarrhea, No Constipation, + Ab dominal pain Musculoskeletal: No joint pain, No Myalgias, No Joint Swelling Skin: No Skin Lesions, No rash Neuro: No Weakness, No Headache Psych: No Anxiety/Panic, No Depression, No SI/HI/AH/VH, + Social Issues Yes all other systems are reviewed and are negative Constitutional: Constitutional: Reports as per [facility] Past Medical History Attestation statement: The following information was validated with the patient. Source: old records reviewed Medical History Alcohol use disorder, severe, dependence Anxiety and depression Hypertension Psychiatric disturbance Family History Family History Other Lung cancer Social History Social History Household Members: Family Housing: House Do you presently have visiting nurse or other home services: No Alcohol intake: current Alcohol intake frequency: 3 or more drinks per day Alcohol type: hard liquor Patient Tobacco Use Status: Never used Tobacco Smoked in Last 30 Days: No e-Cigarette/Vaping Use: Never Used Second Hand Smoke Exposure: No Use of substances other than those prescribed or required for medical reasons: No Substance Use Type: Marijuana Advance Directives: Yes Advance Directives on File: Yes Advance Directives Date on File: 01/08/21 service: No Current occupational status: unemployed Sexual orientation: Straight/Heterosexual Physical Exam ED Vital Signs: Vital Signs - 24 hr 11/24/22 13:28 11/24/22 15:44 11/24/22 20:00 Temperature 98.0 F Pulse Rate 132 H 130 H 110 H Respiratory Rate 20 20 18 Blood Pressure 149/86 H 147/95 H 145/82 H Pulse Oximetry 97 97 96 Oxygen Delivery Method Room Air Room Air Room Air 11/24/22 21:53 Temperature 97.6 F Pulse Rate 112 H Respiratory Rate 18 Blood Pressure 139/75 Pulse Oximetry 99 Oxygen Delivery Method Room Air BMI result Body Mass Index 29.1 Const Other: + ETOH odor on breath General: cooperative, healthy appearing, alert and awake Orientation/consciousness: patient oriented x3 Limitations: no limitations HENMT Head: Yes normal to inspection and Yes atraumatic Ears: hearing grossly normal bilaterally General nose exam: Normal external nose present Face and sinus: Yes normal facial exam Eyes General: appearance normal, both eyes and all related structures EOM: EOMs intact bilaterally Neck Neck: Yes normal visual inspection and Yes no meningeal signs Resp Effort & Inspection: normal respiratory effort and no respiratory distress Auscultation: clear to auscultation bilaterally Cardio Rate: regular rate Heart sounds: S1 normal heart sound present and S2 normal heart sound present GI Inspection: Yes normal to inspection Palpation (GI): Soft to palpation, nontender, no guarding and not rigid General: Yes no CVA tenderness Back/Spine/Pelvis Other: No midline cervical/thoracic/lumbar spinous tenderness/step-off or deformity Back: no CVA tenderness Skin Rashes: no rashes Wounds: no wounds Neuro General: patient oriented x3, tone normal, moves all extremities, no meningeal signs, no focal motor deficits and CN's II-XI intact bilaterally Cognition (Neuro): normal cognition Extrem Other: No appreciable tremors or tongue fasciculations General: Yes normal to inspection Psych Thought content: suicidality and no homicidality Course Course Course Narrative: -no leukocytosis. Anion gap 27 likely from ETOH/ketosis -ethanol 305. Tox screen otherwise negative -1608--patient persistently tachycardic. CIWA =8, will give dose of IV Ativan an d re-evaluate -1630--ED care transfer to [facility] pending re-evaluation. Plan for discharge with resources vs admission for withdrawal Reevaluation(s) Reevaluation #1: Patient's heart rate improved to about 110, sinus. Again he is in mild alcohol withdrawal but he has been sleeping most of the night. Very slight tremors, he reports anxiety but no nausea, vomiting. He has been ambulating around his been emergency department for several hours now with the study, even gait. Will give him 1 more dose of Ativan to help prevent worsening withdrawals Time: 22:51 Medical Decision Making Medical Decision Making MDM Narrative: 36-year-old male with a past medical history of ETOH abuse disorder, anxiety, depression, HTN, presenting to the ED via EMS complaining of ETOH intoxication/dependent. On exam tachycardic, NAD, +ETOH odor on breath, no appreciable tongue fasciculations or tremors, abdomen soft/nontender. Concern for ETOH intoxication/dependence and mild withdrawal. Concern for possible pancreatitis vs electrolyte abnormality/dehydration. Lower suspicion for acute cholecystitis, appendicitis/diverticulitis at this time. Patient is interested in detox/help Plan: Labs, drug screen, IVF, p.o. Librium, recovery consult Please refer to course for remaining clinical decision making, interpretation of labs/imaging results, and discussions with consultants and/or family members. Differential Diagnosis Differential Diagnoses: The differential diagnosis associated with the presentation includes As above Admission/Observation Consideration of admission/observation: Escalation of care including admission/observation considered Consult Healthcare Provider Management of the patient was discussed with: Behavioral Health Provider (recovery team) Lab Data MDM Lab Attestation statement: I reviewed the patient's lab results. 11/24/22 13:58 11/24/22 13:58 Labs: Lab Results 11/24/22 11/24/22 11/24/22 Range/Units 13:58 13:58 14:59 WBC 7.0 (4.8-10.8) X10*3/uL RBC 5.54 D (4.60-5.80) X10*6/uL Hgb 15.4 (14.0-18.0) g/dl Hct 45.9 D (42.0-52.0) % MCV 82.9 (80.0-98.0) fL MCH 27.8 (27.0-33.0) pg MCHC 33.6 (31.0-36.0) g/dl RDW 13.8 (11.0-16.0) % Plt Count 271 D (160-400) X10*3/uL MPV 9.1 L (9.4-12.4) fL Immature Gran % (Auto) 0.3 (0.0-0.4) % Neut % (Auto) 72.0 (45-73) % Lymph % (Auto) 19.0 L (20-40) % Giles % (Auto) 7.6 (2-11) % Eos % (Auto) 0.0 (0-4) % Baso % (Auto) 1.1 (0-2) % Lymph # (Auto) 1.3 (1.2-4.9) X10*3/uL Giles # (Auto) 0.5 (0.1-1.2) X10*3/uL Eos # (Auto) 0.0 (0.0-0.4) X10*3/uL Baso # (Auto) 0.1 (0.0-0.2) X10*3/uL Abs Immat Gran (auto) 0.02 (0.00-0.03) X10*3/uL Absolute Neuts (auto) 5.0 (2.0-8.3) x10*3/uL Absolute Nucleated RBC 0.000 (0.0-0.012) X10*3/uL Nucleated RBC % (auto) 0.0 (0.0-0.2) /100WBC Sodium 139 (135-145) mmol/L Potassium 3.8 (3.3-5.1) mmol/L Chloride 100 (96-108) mmol/L Carbon Dioxide 16 L (22-29) mmol/L Anion Gap 27 H (12-20) BUN 12 (9-16) mg/dL Creatinine 0.85 (0.5-1.4) mg/dL Estim Creat Clear Calc 128.8 Estimated GFR > 60 Random Glucose 85 (60-115) mg/dL Calcium 8.7 (8.4-10.2) mg/dL Total Bilirubin 0.6 (0.0-1.0) mg/dL Direct Bilirubin 0.2 (0.0-0.5) mg/dL AST 30 (5-37) U/L ALT 25 (0-40) U/L Alkaline Phosphatase 116 (39-117) U/L Total Protein 8.1 H (6.5-8.0) g/dL Albumin 4.6 (3.5-5.0) g/dL Lipase 28 (8-78) U/L Urine Opiates Screen Not Detected (Not Detect) Urine Fentanyl Screen Not Detected (Not Detect) Ur Barbiturates Screen Not Detected (Not Detect) Ur Phencyclidine Scrn Not Detected (Not Detect) Ur Amphetamines Screen Not Detected (Not Detect) U Benzodiazepines Scrn Not Detected (Not Detect) Urine Cocaine Screen Not Detected (Not Detect) U Marijuana (THC) Screen Not Detected (Not Detect) Ethyl Alcohol 305 H* mg/dL Radiology Impression Discussion of test interpretation with radiology: I have reviewed the radiologist's reading. Independent Historian Clinical information obtained from an independent historian. History obtained from or confirmed by: EMS External Record Review External record reviewed: Inpatient record, Office record, Outpatient record, Prior outpatient labs, Prior outpatient radiology, Primary care record and Outside ED record Tests considered The following testing was considered but not selected: As above Prescription Management I considered prescription management with: Pain Medication Social Determinants Patient?s care significantly limited by Social Determinants of Health including: Alcoholism and drug addiction in family Medications Administered Discontinued Medications Generic Name Dose Route Start Last Admin Trade Name Davey PRN Reason Stop Dose Admin Chlordiazepoxide HCl 25 mg 11/24/22 13:36 11/24/22 13:58 Chlordiazepoxide Hcl 25 Mg Capsule PO 11/24/22 13:37 25 mg ONCE ONE Administration Sodium Chloride 1,000 mls @ 999 mls/hr 11/24/22 13:45 11/24/22 15:24 Ns IV 11/24/22 14:45 Infused .Q1H1M VANESSA Infusion Lactated Ringer's 1,000 mls @ 999 mls/hr 11/24/22 16:15 11/24/22 18:02 Lr IV 11/24/22 17:15 Infused .Q1H1M VANESSA Infusion Thiamine HCl 500 mg/ Sodium 105 mls @ 210 mls/hr 11/24/22 19:43 11/24/22 20:24 Chloride IV 11/24/22 20:12 Infused ONCE ONE Infusion Lorazepam 1 mg 11/24/22 15:46 11/24/22 15:53 Lorazepam 2 Mg/Ml Vial IVPUSH 11/24/22 15:47 1 mg STAT STA Administration Lorazepam 1 mg 11/24/22 16:09 11/24/22 19:13 Lorazepam 2 Mg/Ml Vial IVPUSH 11/24/22 16:10 1 mg ONCE ONE Administration Metoclopramide HCl 10 mg 11/24/22 13:52 11/24/22 13:58 Metoclopramide Hcl 10 Mg/2 Ml Vial IVPUSH 11/24/22 13:53 10 mg ONCE ONE Administration Discharge Plan Discharge Clinical Impression: Alcoholic intoxication, Alcohol withdrawal syndrome Patient Disposition: Home, Self-Care Instructions: Alcohol Withdrawal (ED) Additional Instructions: Your provided with a list of detox resources from the care team. Call 1st thing in the morning to help get situated with detox Avoid excessive consumption of alcohol Prescriptions: No Action amlodipine 5 mg tablet 1 tab PO DAILY omeprazole 20 mg capsule,delayed release(DR/EC) 1 cap PO DAILY melatonin 3 mg Tablet 6 mg PO BEDTIME PRN (Reason: Insomnia) Qty: 30 0RF thiamine HCl (vitamin B1) 100 mg tablet 100 mg PO DAILY Qty: 30 0RF folic acid 1 mg tablet 1 mg PO DAILY Qty: 30 0RF fluoxetine 40 mg capsule 40 mg PO DAILY trazodone 50 mg tablet 50 mg PO BEDTIME bupropion HCl 100 mg tablet sustained-release 12 hr 100 mg PO BID buspirone 30 mg tablet 30 mg PO BID lorazepam 1 mg tablet 1 mg PO TID PRN (Reason: anxiety)
[2022-11-24 13:28] VITALS: BP 149/86; BP 162/94; PULSE 126; PULSE 132; RESP 20; O2SAT 97; O2SAT 98; BMI 29.1
[2022-11-24] MEDS: chlordiazePOXIDE HCl 25 MG CAPSULE PO (13:58)
[2022-11-24] MEDS: 0.9 % Sodium Chloride 1,000 ML 999 ML IV (13:58)
[2022-11-24] MEDS: Metoclopramide HCl 10 MG/2 ML VIAL IVPUSH (13:58)
--- OUTSIDE RECORDS SUMMARY | 2022-11-24 13:59 | XMS_ITS | Continuity of Care Document ---
Author Name Unknown Organization [facility] Shekhar Cecil lt Address [address] [place] [id number]- Care Team Providers Care Pharm Tech Name Role Phone Greg Ponce DO Primary Care Physician [phone] Encounter [facility] Date(s): 09/06/22 - 11/21/22 [facility] [address] [place] [address]- Attending Physician: Greg Ponce DO Allergies, Adverse Reactions, Alerts No Known Allergies [...] 04/29/04 Given 1Result Comment: BOOSTER 2Result Comment: [facility]# [address] [id number] 3Result Comment: [03/10/2017] [facility] [id number] 4Result Comment: [facility]: [id number] 5Result Comment: [10/10/2013] #1 6Admin Note: historical [...] Major depression in full remission Confirmed Active Alcohol use disorder, moderate, dependence Confirmed Active Moderate recurrent major depression Confirmed Active Fatty liver us 2020 Confirmed Active 1urine catecholamines appear normal 2negative renal artery duplex 3r/o secondary cause 4right T11 distribution 5advised pre diabetic increased risk diabetes Social History Social History Type Response Smoking Status Never (less than 100 in lifetime) entered on: 07/17/21 Sex Patient Care team information Care Team Personnel Name: Neida Ford NP Position: [facility] PCO Associate Professional Member Role: Lifetime Consulting Provider Address: Address: [address] [place] [id number]- Name: Greg Ponce DO Position: [facility] Physician - Primary Care Member Role: PCP Address: Address: [address] [place] [address] [place] [address]- Name: Fredrick BARRETO, Neli Worley Position: [facility] RN Member Role: Primary Care Nurse Care Team Related Persons Name: DOMENICA COLÓN Address: home [address] [place] [address] UM Name: KENNETH BALDWIN Address: home [address] [place] [address]
--- NOTE | 2022-11-24 14:01 | PC.NURSE ---
pt aox4, reports that they have been drinking since they got out of rehab on thursday, with increased drinking over the last 3 days. fluids infusing per MAR. reglan infusing per MAR.
[2022-11-24 14:04] LABS: MANUAL DIFF FLAG NO
[2022-11-24 14:09] LABS: Basophils Absolute Auto 0.1 X10*3/uL (0.0-0.2); Basophils Percent Auto 1.1 % (0-2); Hematocrit 45.9 % (42.0-52.0); Hemoglobin 15.4 g/dl (14.0-18.0); Imm Gran Abs Auto 0.02 X10*3/uL (0.00-0.03); Imm Gran Pct Auto 0.3 % (0.0-0.4); Lymphocytes Absolute Auto 1.3 X10*3/uL (1.2-4.9); Mean Corpuscular HGB Conc 33.6 g/dl (31.0-36.0); Mean Corpuscular Hemoglobin 27.8 pg (27.0-33.0); Mean Corpuscular Volume 82.9 fL (80.0-98.0); Mean Platelet Volume 9.1 fL (9.4-12.4); Monocytes Absolute Auto 0.5 X10*3/uL (0.1-1.2); Monocytes Percent Auto 7.6 % (2-11); Platelet Count 271 X10*3/uL (160-400); Red Blood Count 5.54 X10*6/uL (4.60-5.80); Red Cell Distribution Width 13.8 % (11.0-16.0)
[2022-11-24 14:35] LABS: Alanine Aminotransferase 25 U/L (0-40); Albumin Level 4.6 g/dL (3.5-5.0); Alkaline Phosphatase 116 U/L (39-117); Anion Gap 27 (12-20); Aspartate Amino Transferase 30 U/L (5-37); Bilirubin Direct 0.2 mg/dL (0.0-0.5); Bilirubin Total 0.6 mg/dL (0.0-1.0); Blood Urea Nitrogen 12 mg/dL (9-16); Calcium 8.7 mg/dL (8.4-10.2); Carbon Dioxide 16 mmol/L (22-29); Chloride 100 mmol/L (96-108); Creatinine Clr Calc Pharmacy 128.8; Estimated Glomerular Filt Rate > 60; Ethanol 305 mg/dL; Glucose Random 85 mg/dL (60-115); Lipase 28 U/L (8-78); Potassium 3.8 mmol/L (3.3-5.1); Sodium 139 mmol/L (135-145); Total Protein 8.1 g/dL (6.5-8.0)
[2022-11-24 15:13] LABS: Amphetamine Screen Urine Not Detected (Not Detect); Barbiturates, Urine Not Detected (Not Detect); Benzodiazepines Screen Urine Not Detected (Not Detect); Cannabinoid Screen Urine Not Detected (Not Detect); Cocaine Screen Urine Not Detected (Not Detect); Fentanyl, urine Not Detected (Not Detect); Opiate Screen Urine Not Detected (Not Detect); Phencyclidine Screen Urine Not Detected (Not Detect)
--- NOTE | 2022-11-24 15:22 | MHC.RECOVSUP ---
Met with pt in ED22H who is here for ETOH. Pt informs he just got out of his 3rd section at [facility] on Thursday11/17/22 and has been drinking about 1 liter of Gin and Vodka a day. Pt informs he has tried Vivitrol and Campral here at [facility] but it didnt work for him. Pt is not interested in going to a detox at this time and states he would like to be admitted here.
[2022-11-24 15:44] VITALS: BP 147/95; PULSE 130; RESP 20; O2SAT 97
[2022-11-24] MEDS: LORazepam 2 MG/ML VIAL 1 MG IVPUSH ×2 (15:53→19:13)
--- NOTE | 2022-11-24 15:58 | PC.NURSE ---
pt continues to report nausea, CIWA 8. pt has been tachy throughout time in ER. playground monitor on. mediated per JUL with Ativan
[2022-11-24] MEDS: Lactated Ringers 1,000 ML 999 ML IV (16:49)
--- NOTE | 2022-11-24 16:51 | PC.NURSE ---
pr PA, hold ativan unless needed. Pt dozing at this time, LR infusing per JUL. pt 111 HR on monitor. will ctm
--- NOTE | 2022-11-24 17:41 | PC.NURSE ---
HR still above 100, currently 106. pt sleeping. LR infusing.
--- NOTE | 2022-11-24 19:23 | PC.NURSE ---
this rn medicated pt according to mar in assistance to primary rn madonna. CIWA scale of 6. pt calm and cooperative. ambulates independently. pt remains on hall monitor. this rn made kelly morton aware of ciwa scale. no new orders at this time
--- NOTE | 2022-11-24 19:44 | MHC.RECOVSUP ---
PT IS A 36 YR OLD MALE WHO CAME TO THE ED FOR ETHOS. I WENT TO SEE PT AND HE STATED THAT HE JUST WAS DISCHARGED FROM A SECTION 35. PT ALSO STATED THAT HE IS NOT INTERESTED IN GOING TO DETOX. PT STATED THAT HE WANTS TO BE ADMITTED TO THE HOSPITAL. SPOKE WITH DOCTOR AND EXPLAINED WHAT THE PT STATED TO ME. AND THE DOCTOR TOLD ME THAT THERE IS NO NEED TO ADMITTED HIM. PT STATED THAT HE WANTED TO SPEAK TO THE DOCTOR. THE DOCTOR WAS ABLE TO EXPLAIN TO HIM THE REASON WHY HE IS NOT GETTING ADMITTED. I TRY AGAIN TO SEE IF PT WOULD STILL BE INTERESTED IN GOING TO DETOX. PT STILL STATED NO. THIS NEW PRODUCT TRAINER WAS ABLE TO GIVE PT SOME RESOURCES AND INFO JUST INCASES HE DECIDES TO GO TO DETOX.
[2022-11-24] MEDS: Thiamine HCL 500 MG in 0.9 % Sodium Chloride 100 ML 210 MG IV (19:52)
[2022-11-24 20:00] VITALS: BP 145/82; PULSE 110; RESP 18; TEMP 36.7; O2SAT 96
[2022-11-24 21:53] VITALS: BP 139/75; PULSE 112; RESP 18; TEMP 36.4; O2SAT 99
[2022-11-24] MEDS: LORazepam 1 MG TABLET 2 MG PO (22:57)
== END 2022-11-24 23:03 | disposition home or self-care (01) ==
PROVIDERS: Physician Assistant; Emergency Provider Emergency Medicine
DX: F10.220 Alcohol dependence with intoxication, uncomplicated (principal); Y90.8 Blood alcohol level of 240 mg/100 ml or more; F10.239 Alcohol dependence with withdrawal, unspecified; F33.2 Major depressive disorder, recurrent severe without psychotic features; Z79.899 Other long term (current) drug therapy
CPT/HCPCS: 36415; 80048; 80076; 80307; 83690; 85025; 96361; 96365; 96375; 96376; 99285; J2060; J2765; J3411

== ENCOUNTER 2023-02-10 08:34 | Inpatient (IN) | payer MEDICAID, SELFPAY ==
[2023-02-10] VITALS (7 sets, daily range): BP systolic 137–152; BP diastolic 83–95; PULSE 83–148; RESP 14–20; TEMP 36.7–37.6; O2SAT 95–97; BMI 24.1; BMI 25.8
--- NOTE | ~2023-02-10 | CT_ITS ---
EXAMINATION: CT HEAD W/O IV CONTRAST CT FACIAL BONES WITHOUT IV CONTRAST CLINICAL INFORMATION: EtOH. Possible fall, nosebleed. COMPARISON: Prior CT exams from 07/06/2019 and 01/28/2022. TECHNIQUE: Head - Contiguous axial imaging of the head was performed from the skull base to the vertex without the administration of intravenous contrast, and axial images are reconstructed at 0.6 mm, 1.5 mm, 3 mm and 5 mm slice thickness. Facial bones - Volumetric, helical CT acquisition of the facial bones obtained without contrast; in addition to the standard set of axial images, multiplanar reformatted images were provided in the coronal and sagittal imaging planes. This CT examination was performed using dose optimization techniques as appropriate, variously including the following: *Automated exposure control *Adjustment of mA and/or kV according to patient size (this includes techniques or standardized protocols for targeted exams where dose is matched to indication/reason for exam; i.e. extremities or head) *Use of iterative reconstruction technique DLP: 976 mGy-cm (total) FINDINGS: HEAD: No evidence of intracranial hemorrhage, major vascular territory infarction, focal mass effect or midline shift. Cardoza to white matter differentiation is preserved. The sulci and basilar cisterns are unremarkable. The ventricles have normal size and configuration. No hydrocephalus or extra-axial fluid collections. The calvarium is intact and the mastoid air cells and middle ear cavities are clear. FACIAL BONES: The globes and orbital jones, including lamina papyracea, are intact. The orbital apex, optic canals, and retrobulbar fat planes are normal. There appears to be a very small nondisplaced fracture of the anterior nasal spine of the maxilla (for example, sagittal reformatted image 111, series 15). Otherwise, the maxilla, mandible and temporomandibular joints are unremarkable. Nasal bones, pterygoid plates and zygomatic arches are intact. The paranasal sinuses are well-aerated and the ostiomeatal units are patent. No air-fluid levels in the paranasal sinuses. No facial soft tissue hematoma. CT/CT facial bones wo IV con IMPRESSION: * No intracranial hemorrhage or other acute intracranial pathology. * A very small fracture of the anterior nasal spine of the maxilla is noted.
--- OUTSIDE RECORDS SUMMARY | 2023-02-10 09:05 | XMS_ITS | Continuity of Care Document ---
Author Name Unknown Organization [facility] Address [address] [place] [address]- Care Team Providers Care Router Tender Name Role Phone Greg Ponce DO Primary Care Physician Encounter [facility] Date(s): 02/02/23 - 02/06/[address] [id number] Discharge Disposition: A-D/C Home Attending Physician: Shawna Wong MD Admitting Physician: Kiran Carrero DO Referring Physician: Jose Luis Mars DO Allergies, Adverse Reactions, Alerts No Known [...] 04/29/04 Given 1Result Comment: BOOSTER 2Result Comment: [facility]# [address] [phone] 3Result Comment: [03/10/2017] [facility] [id number] 4Result Comment: [facility]: [id number] 5Result Comment: [10/10/2013] #1 6Admin Note: historical data Medications acamprosate 333 mg oral delayed release tablet 2 tablet = 666 mg, By Mouth, 3 times a day, # 180 tablet, 1 Refills, Maintenance, 02/06/23 10:35:00EDT, CR Tablet, [facility], 173, cm, 02/06/23 4:34:00 EDT, Height, 80.9, kg, 02/02/23 18:22:00EDT, Dry Weight Start Date: 02/06/23 Status: Ordered buPROPion 100 mg oral tablet = 100 mg, By Mouth, 2 times a day, 0 Refills, Maintenance, 11/27/22 14:12:00 EDT, Partial fill uponpatient request if the prescription is for a schedule II opioid drug. Start Date: 11/27/22 Status: Ordered busPIRone 30 mg oral tablet [...] acid 1 mg oral tablet 1 mg, By Mouth, Daily, # 30 tablet, Refills 0, Tot. Refills 0, Maintenance, 11/29/22 11:01:00 EDT, Route to Pharmacy Electronically, [facility], Partial fill upon patient request if the prescription is for a schedule II opioid drug., 172, cm, ... Start Date: 11/29/22 Status: Ordered multivitamin Multiple Vitamins oral capsule 1 capsule, By Mouth, Daily, # 30 capsule, 0 Refills, Maintenance, 11/29/22 11:01:00 EDT, Capsule, [facility], Partial fill upon patient request if the prescription is for a schedule II opioid drug., 1 capsule By Mouth Daily, 172, cm, 11/29/22 8:0... Start Date: 11/29/22 Status: Ordered Protonix 20 mg oral delayed release tablet 1 tablet = 20 mg, By Mouth, Daily, # 30 tablet, 0 Refills, Maintenance, 11/29/22 11:02:00 EDT, CR Tablet, 172, cm, 11/29/22 8:05:00 EDT, Height, 88, kg, 11/27/22 18:42:00 EDT, Dry Weight Start Date: 11/29/22 Status: Ordered traZODone 50 mg oral tablet 50 mg, 1, tablet, By Mouth, Daily at bedtime, # 30 tablet, Refills 0, Maintenance, 11/27/22 14:13:00 EDT, Partial fill upon patient request if the prescription is for a schedule II opioid drug. Start Date: 11/27/22 Status: Ordered Problem List Condition Confirmation Course Effective Dates Status H ealth Status Informant Essential Hypertension 1, 2, 3 Confirmed Active Hyperlipidemia Confirmed Active Impaired fasting glucose 4 Confirmed Active Moderate recurrent major depression Confirmed Active Alcohol use disorder, severe, dependence Confirmed Active Fatty liver us 2020 Confirmed Active 1urine catecholamines appear normal 2negative renal artery duplex 3r/o secondary cause 4advised pre diabetic increased risk diabetes Results Radiology Reports * Exam Date Time Procedure Performing Provider Status 02/02/23 3:56 AM Chest 2 Views Frontal and Lat Nancy Upton; Kailee (Verified) Notes: (Chest 2 Views Frontal and Lat) Reason For Exam: Shortness of Breath RESULT: Chest 2 Views Frontal and Lat Chest 2 Views Frontal and Lat Reason: Shortness of Breath; Clinical Question(s): Pneumonia COMPARISON: July 13, 2022. FINDINGS: LINES AND TUBES: None. LUNGS AND PLEURA: Mildly increased vascular congestion when compared with the prior study, still within the spectrum of normal, without evidence of pulmonary edema. No focal consolidation. No pleural effusion. No pneumothorax. HEART, MEDIASTINUM AND ROJELIO: Heart is normal in size. Normal mediastinal and hilar contour. BONES AND SOFT TISSUES: No acute abnormality. IMPRESSION: No acute abnormality. WSN: [id number] Ordering Physician: Kiran Carrero Dictated By: Eduardo Dixon MD Dictated Date/Time: 02/02/23 5:59 am Reviewed By: Eduardo Dixon MD Signed By: Eduardo Dixon MD Signed Date/Time: 02/02/23 5:59 am Transcribed By: REINIER Transcribed Date/Time: 02/02/23 5:58 am Vital Signs Most recent to oldest [Reference Range]: 1 2 3 Height 173 cm (02/06/23 4:34 AM) 173 cm (02/05/23 7:36 PM) 173 cm (02/05/23 3:20 PM) Weight 76.7 kg (02/02/23 6:22 PM) 76.7 kg (02/02/23 6:00 PM) 77 kg (02/02/23 6:49 AM) Oxygen Saturation [94-100 %] 98 % (02/06/23 7:45 AM) 100 % (02/06/23 4:34 AM) 100 % (02/05/23 7:36 PM) Pulse Rate [55-90 bpm] 70 bpm (02/06/23 7:45 AM) 72 bpm (02/06/23 4:34 AM) 87 bpm (02/05/23 7:36 PM) Body Mass Index [18.5-24.99 kg/m2] 25.63 kg/m2 *H* (02/02/23 6:22 PM) 25.73 kg/m2 *H* (02/02/23 6:49 AM) Blood Pressure [90-138/55-84 mm Hg] 119/76mm Hg (02/06/23 7:45 AM) 115/72mm Hg (02/06/23 4:34 AM) 125/78mm Hg (02/05/23 7:36 PM) Respiratory Rate [16-30 br/min] 19 br/min (02/06/23 7:45 AM) 18 br/min (02/06/23 4:34 AM) 18 br/min (02/05/23 7:36 PM) Temperature [96.8-100.4 DegF] 97.6 DegF (02/06/23 7:45 AM) 97.9 DegF (02/06/23 4:34 AM) 98.2 DegF (02/05/23 7:36 PM) Liters per Minute 1.5 L/min (02/02/23 8:32 AM) 2 L/min (02/02/23 6:49 AM) 2 L/min (02/02/23 2:14 AM) Mode of Delivery (Oxygen) Room air (02/06/23 7:45 AM) Room air (02/06/23 4:34 AM) Room air (02/05/23 7:36 PM) Blood pressure sites Arm, right (02/06/23 7:45 AM) Arm, left (02/06/23 4:34 AM) Arm, left (02/05/23 7:36 PM) Temperature Route Oral (02/06/23 7:45 AM) Oral (02/06/23 4:34 AM) Oral (02/05/23 7:36 PM) Dry Weight 80.9 kg (02/02/23 6:22 PM) 77 kg (02/02/23 6:49 AM) 77 kg (02/01/23 10:30 PM) Weight Obtained Via Patient/family stated (02/02/23 6:22 PM) Standing scale (02/02/23 6:00 PM) Patient/family stated (02/01/23 10:30 PM) Dry Weight Obtained Via Patient/family stated (02/02/23 6:22 PM) Patient/family stated (02/01/23 10:30 PM) Social History Social History Type Response Smoking Status Never smoker entered on: 10/10/13 Sex History and physical note * Kiran Carrero DO: PERFORM Event Display: History and Physical Hospital Authored Date: Patient: ??JULIOCESAR BOATENG ? Age:??37 Years?Sex:??Male?:??1985?? Chief Complaint/Reason for Consultation pt w/ long standing hx of ETOH abuse called EMS after drinking several alcoholic beverages and stated I feel like Im going to . given 450 normal saline and 4mg zofran IV en route. History of Present Illness Mr. Boateng is a 37-year-old gentleman with a history of alcohol use disorder who presented with alcohol intoxication and shortness of breath. History is obtained from the patient who is a fair historian. ?? He was admitted here for alcohol withdrawal and discharged on 01/05.?? He reports drinking again approximately 1 to 2 weeks after discharge.?? He has been drinking a 750 mL bottle of vodka per day which is less than what he was drinking before though he admitted to the ED provider that he drank multiple bottles yesterday.?? Today he woke up feeling short of breath and disoriented.?? He was worried he was going to so he called 911.?? He offers no other complaints at this time and states that his breathing has improved. ?? In the ED his alcohol level was 306.?? The rest of his labs were unremarkable. Review of Systems Positive ROS are noted in??BOLD TEXT General?fatigue, weight change, fever, chills, falls HEENT?GLEZ, vision change, sore throat?? Pulm?cough, SOB, CANTU, wheezing CV?chest pain, palpitations, PND, orthopnea, edema GI?abd pain, nausea, vomiting, diarrhea, constipation, melena, hematochezia ?dysuria, increased frequency, hematuria, incontinence MS?back pain, joint swelling, arthralgias Neuro?syncope, dizziness, weakness, paresthesias Hematologic?bleeding tendency, easy bruising Skin?rash, lesions Psych?depression, SI/HI Objective Vital Signs?? Temperature: 98.2 DegF (02/01/23 22:29:00) Temperature Route: Oral (02/01/23 22:29:00) Pulse Rate:??120 bpm??High (02/02/23 02:14:00) Respiratory Rate: 19 br/min (02/02/23 02:14:00) Systolic Blood Pressure:??167 mm Hg??High (02/02/23 02:14:00) Diastolic Blood Pressure:??96 mm Hg??High (02/02/23 02:14:00) Blood pressure sites: Arm, right (02/02/23 02:14:00) Mean Arterial Pressure: 126 mm Hg (02/01/23 22:29:00) Pulse Pressure: 66 mm Hg (02/02/23 01:06:00) Oxygen Saturation: 97 % (02/02/23 02:14:00) Liters per Minute: 2 L/min (02/02/23 02:14:00) Mode of Delivery (Oxygen): Nasal cannula (02/02/23 02:14:00) ? Intake/Output? No Data Available ? Physical Exam Constitutional: No acute distress, well-developed, alert and oriented x4 HEENT: Normocephalic, atraumatic, PERRLA, EOMI, oropharynx clear, moist mucus membranes Respiratory: CTA bilaterally, no wheezes/rhonchi/rales Cardiac: Tachycardic, regular rhythm, +S1/S2, no murmurs/rubs, pulses palpable and equal in all extremities, no edema Gastrointestinal: +BS, non-tender to palpation, non-distended Neurologic: CNII-XII grossly intact, 5/5 strength in all extremities, sensation intact Musculoskeletal: No gross deformities, back non-tender to palpation Skin: No rash/lesion Psych: Mood appropriate to situation Assessment/Plan Assessment:??Mr. Boateng is a 37-year-old gentleman with a history of alcohol use disorder who presented with alcohol intoxication and shortness of breath, now in alcohol withdrawal ?? Alcohol use disorder, with withdrawal (F10.20):??Presented while still intoxicated though subsequently showing signs of withdrawal. Drinking 750 cc of vodka per day and in the past 24 hours or more than that. -CIWA scale, phenobarbital??per protocol ?? Shortness of breath:??History is vague, symptoms seem to have resolved.?? Was placed on nasal cannula??due to mild hypoxia after receiving??phenobarbital and Ativan??in the ED.?? Lungs are clear on exam. -Titrate down oxygen as able -Obtain a two-view chest x-ray ?? Moderate recurrent major depression (F33.1):??. Anxiety (F41.9):? -Continue bupropion, buspirone, fluoxetine, trazodone ?? VTE Prophylaxis:??Low risk ?VTE Prophylaxis Assessment:??Risk Level documented as Low Risk ?? Code Status:??Full code ?Order Code Status:??Code Status Ordered ?? Patient evaluated on 02/02/2023 ?? Histories Allergies Allergies ?(Active and Proposed Allergies Only) NKA? (Severity: Unknown severity, Onset: Unknown) ? Past Medical History/Problem List Active Problems??(8) Alcohol use disorder, moderate, dependence Essential Hypertension Fatty liver 2020 H/O herpes zoster Hyperlipidemia Impaired fasting glucose Major depression in full remission Moderate recurrent major depression ? 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 ??Alcohol use interferes with work or home: [...] Cancer of lung ? Medications Home Medications BuPROpion (buPROPion 100 mg oral tablet)?100?Milligram?By Mouth?2 times a day BusPIRone (busPIRone 30 mg oral tablet)?1?tab(s)?30?Milligram?By Mouth?2 times a day Fluoxetine (FLUoxetine 20 mg oral capsule)?40?Milligram?2?capsule?By Mouth?Daily Folic Acid (folic acid 1 mg oral tablet)?1?Milligram?By Mouth?Daily Multivitamin (multivitamin Multiple Vitamins oral capsule)?1?capsule?By Mouth?Daily Pantoprazole (Protonix 20 mg oral delayed release tablet)?1?tab(s)?20?Milligram?By Mouth?Daily Trazodone (traZODone 50 mg oral tablet)?50?Milligram?1?tablet?By Mouth?Daily at bedtime ? Results Recent Labs CHEM GENERAL Sodium 135 mmol/L ()?? 02/01/2023 22:35 Potassium 4.2 mmol/L ()?? 02/01/2023 22:35 Chloride 89 mmol/L (Low)?? 02/01/2023 22:35 Bicarbonate Level 20 mmol/L (Low)?? 02/01/2023 22:35 Anion Gap 26 (High)?? 02/01/2023 22:35 Glucose Level 112 mg/dL (High)?? 02/01/2023 22:35 BUN 17 mg/dL ()?? 02/01/2023 22:35 Creatinine-Blood 0.7 mg/dL ()?? 02/01/2023 22:35 Estimated GFR Creatinine 122 ML/MIN/1.73 M2 ()?? 02/01/2023 22:35 Calcium 9.0 mg/dL ()?? 02/01/2023 22:35 Phosphorus 3.2 mg/dL ()?? 02/01/2023 22:35 Magnesium 2.2 mg/dL ()?? 02/01/2023 22:35 Protein, Total 7.7 Gm/dL ()?? 02/01/2023 22:35 Albumin 4.7 Gm/dL ()?? 02/01/2023 22:35 AG Ratio 1.6 ()?? 02/01/2023 22:35 Alkaline Phosphatase 81 units/L ()?? 02/01/2023 22:35 AST (SGOT) 86 units/L (High)?? 02/01/2023 22:35 ALT (SGPT) 70 units/L (High)?? 02/01/2023 22:35 Bilirubin, Total 0.4 mg/dL ()?? 02/01/2023 22:35 ?? HEME OTHER Hold Lavender Top SPECIMEN DISCARDED AFTER 24 HOURS. ()?? 02/01/2023 22:35 Hold Blue Top SPECIMEN DISCARDED AFTER 4 HOURS. ()?? 02/01/2023 22:35 ?? MISC. CHEMISTRY Hold Green Top SPECIMEN DISCARDED AFTER 1 WEEK ()?? 02/01/2023 22:35 Hold Gel Top SPECIMEN DISCARDED AFTER 1 WEEK ()?? 02/01/2023 22:35 ?? TOXICOLOGY/TDM Ethanol, Serum or Plasma 306 mg/dL (Abnormal)?? 02/01/2023 22:35 Cannabinoid Screen, Urine NONE DETECTED ()?? 02/01/2023 22:46 Cocaine Metabolite Screen, Urine NONE DETECTED ()?? 02/01/2023 22:46 Benzodiazepine Screen, Urine NONE DETECTED ()?? 02/01/2023 22:46 Opiate Screen, Urine NONE DETECTED ()?? 02/01/2023 22:46 ?? UA/URINALYSIS Appear/Color, Urine YELLOW ()?? 02/01/2023 22:46 Clarity CLEAR ()?? 02/01/2023 22:46 Specific [place], Urine >1.030 (High)?? 02/01/2023 22:46 pH, Urine 6.0 ()?? 02/01/2023 22:46 Albumin, Urine 3+ (Abnormal)?? 02/01/2023 22:46 Glucose, Urine NEGATIVE ()?? 02/01/2023 22:46 Ketones, Urine 3+ (Abnormal)?? 02/01/2023 22:46 Bilirubin, Urine NEGATIVE ()?? 02/01/2023 22:46 Hemoglobin, Urine 1+ (Abnormal)?? 02/01/2023 22:46 Nitrite, Urine NEGATIVE ()?? 02/01/2023 22:46 Leukocyte, Urine NEGATIVE ()?? 02/01/2023 22:46 Urobilinogen NORMAL mg/dL ()?? 02/01/2023 22:46 WBC's, Urine <1 /HPF ()?? 02/01/2023 22:46 RBC's, Urine <1 /HPF ()?? 02/01/2023 22:46 Hyaline Cast 1 LPF ()?? 02/01/2023 22:46 Mucus SLIGHT /LPF ()?? 02/01/2023 22:46 Hold Urine Culture Testing available 48 hours from time of collection. ()?? 02/01/2023 22:46 ?? URINE OTHER Est Creatinine Clearance 140.30 mL/min ()?? 02/01/2023 23:03 ?? VIROLOGY COVID-19 by RT-PCR NEGATIVE ()?? 02/01/2023 23:09 ? EKG study * Event Display: ECG 12-Lead Authored Date: Please click on pdf link to open report * Event Display: ECG 12-Lead Authored Date: Ventricular Rate: 114 BPM Atrial Rate: 114 BPM P-R Interval: 154 ms QRS Duration: 78 ms Q-T Interval: 306 ms QTC Calculation(Bazett): 421 ms P [place]: 31 degrees R [place]: 11 degrees T [place]: 8 degrees Sinus tachycardia Otherwise normal ECG When compared with ECG of 31-DEC-2022 14:57, No significant change was found Confirmed by ARCELIA SHAFFER [facility] ([id number]) on 02/03/2023 8:59:29 PM [place]: ARCELIA SHAFFER,[facility] Progress note * Ismael Rivas RN: PERFORM, SIGN, VERIFY Event Display: Progress Note Hospital Authored Date: [id number] Patient: JULIOCESAR BOATENG Age: 37 years Sex: Male : 1985 Associated Diagnoses: None Author: Ismael Rivas RN Findings Problem Related to Alteration in Psychosocial : Alteration in Psychosocial Function/new 02/06/2023 9:52 EDT Alteration in Psychosocial Related to Acute Alcohol Withdrawal Goals & Outcomes, Psychosocial Psychosocial support will be provided to Pt/S.O. as needed, Pt will identify stressors leading up to event, Pt will state importance of adhering to medication regime, Pt/caregiver will be offered appropriate resources & support, Pt successfully withdraws with minimal side effects, Pt will be free from withdrawal symptoms, Pt will develop plan for sobriety after discharge, Pt will participate in recovery groups, Pt will show motivation for recovery Interventions, Psychosocial Assess psychosocial needs, Assess readiness [...] clergy, AA sponsor, counselor support, Offer support topt/S.O. during acute alcohol withdrawal, Transfer pt to monitored area if advances to Stage 3 CIWA,Assess causes of anxiety needing immediate treatment, Assess for anxiety, Encourage family to bringin music pt enjoys, Evaluate & document effectiveness of anxiolytic meds, Notify MD if anti-anxiety dose is ineffective, Talk to patient regarding concerns, Encourage attendance at Recovery &12 step meetings, Help pt analyze pros & cons of substance abuse, Monitor hygiene & nutritional intake, Teach pt about the disease of substance abuse, Teach pt alternate ways to deal with stress Goals/Interventions, Psychosocial Yes Psychosocial, Problem Start 02/02/2023 18:35 Reviewed Plan with, Psychosocial Patient Patient Progression, Psychosocial Pt progressing according to plan . Evaluation Patient alert and oriented. Calm and cooperative with care. Patient eager to be discharged. Discussed post-inpatient sobriety plan and provided with local meetings and sober contact to reach out to for support. Patient received support with positive teachback. Not scoring on CIWA scale. Patient tolerating diet without any nausea, moving bowels without issue. Patient ambulatory off unit with belongings reviewed. Discharge paper signed and into chart.. Discharge Information Case Management Discharge Plan : Case Management Discharge Plan Data 02/06/2023 11:29 EDT Discharge Level of Care at Discharge Home/Fdc/Foster Care * Todd Ortiz RN: PERFORM, SIGN, VERIFY Event Display: Progress Note Hospital Authored Date: Patient: JULIOCESAR BOATENG Age: 37 years Sex: Male : 1985 Associated Diagnoses: None Author: Todd Ortiz RN Findings Problem Related to Alteration in Psychosocial : Alteration in Psychosocial Function/new 02/06/2023 2:00 EDT Alteration in Psychosocial Related to Acute Alcohol Withdrawal Goals & Outcomes, Psychosocial Psychosocial support will be provided to Pt/S.O. as needed, Pt will identify stressors leading up to event, Pt will state importance of adhering to medication regime, Pt/caregiver will be offered appropriate resources & support, Pt successfully withdraws with minimal side effects, Pt will be free from withdrawal symptoms, Pt will develop plan for sobriety after discharge, Pt will participate in recovery groups, Pt will show motivation for recovery Interventions, Psychosocial Assess psychosocial needs, Assess readiness to learn needed lifestyle changes, Assess/monitor level of consciousness, Identify complications of chronic alcohol use, Assessfor complications related to acute alcohol withdrawal, Determine pt's stage of withdrawal as per CIWA scale, Encourage pt to continue to detox, Initiate & maintain Seizure Precautions, Minimize stimulation, Minimize stressors, Offer support to pt/S.O. during acute alcohol withdrawal Goals/Interventions, Psychosocial Yes Psychosocial, Problem Start 02/02/2023 18:35 Reviewed Plan with, Psychosocial Patient Patient Progression, Psychosocial Pt progressing according to plan . Evaluation patient is alert and oriented x3. independent in room. no score on CIWA scale. patient denies pain.patient states he wants to be discharged in the morning as he felt his care has be met. informed patient that the team will round in the morning and social work is involved in his . cont. monitor,cont. plan of care. call jack within reach.. * Ismael Rivas RN: PERFORM, SIGN, VERIFY Event Display: Progress Note Hospital Authored Date: [id number] Patient: JULIOCESAR BOATENG Age: 37 years Sex: Male : 1985 Associated Diagnoses: None Author: Ismael Rivas RN Findings Problem Related to Alteration in Psychosocial : Alteration in Psychosocial Function/new 02/05/2023 17:47 EDT Alteration in Psychosocial Related to Acute Alcohol Withdrawal Goals & Outcomes, Psychosocial Psychosocial support will be provided to Pt/S.O. as needed, Pt will identify stressors leading up to event, Pt will state importance of adhering to medication regime, Pt/caregiver will be offered appropriate resources & support, Pt successfully withdraws with minimal side effects, Pt will be free from withdrawal symptoms, Pt will develop plan for sobriety after discharge, Pt will participate in recovery groups, Pt will show motivation for recovery Interventions, Psychosocial Assess psychosocial needs, Assess readiness [...] clergy, AA sponsor, counselor support, Offer support topt/S.O. during acute alcohol withdrawal, Transfer pt to monitored area if advances to Stage 3 CIWA,Assess causes of anxiety needing immediate treatment, Assess for anxiety, Encourage family to bringin music pt enjoys, Evaluate & document effectiveness of anxiolytic meds, Notify MD if anti-anxiety dose is ineffective, Talk to patient regarding concerns, Encourage attendance at Recovery &12 step meetings, Help pt analyze pros & cons of substance abuse, Monitor hygiene & nutritional intake, Teach pt about the disease of substance abuse, Teach pt alternate ways to deal with stress BH Goals/Interventions, Psychosocial Yes Psychosocial, Problem Start 02/02/2023 18:35 Reviewed Plan with, Psychosocial Patient Patient Progression, Psychosocial Pt progressing according to plan . Evaluation Patient admitted with ETOH withdrawal. Patient expressed desire to stop drinking. Patient feels like they have tried everything and nothing works. Patient has never had a sponsor, been to AA meetingsregularly, or worked through the 12 steps. Provided patient with a list of meetings Thursday through Thursday in his town, along with a sponsors phone number. Discussed at length patients triggers and ways of managing these stressors more constructively, encouraging him to use the knowledge he already has and reaching out to those actively in recovery. Support offered and received by patient. Case management consult at [facility]. Patient not scoring on CIWA, scale discontinued per MD. Scheduled Valium decreased to twice a day in anticipation for discharge. Patient tolerating diet, denies any nausea,no episodes of vomiting today. Moving bowels and voiding without issue. Patient independent in the room, gait is steady. Patient resting comfortably in bed at shift change, call jack in reach, safetymaintained through hourly rounding.. Note * Philomena Hills RN: PERFORM Event Display: Discharge/Transfer Note Hospital Authored Date: [id number] Nursing Discharge Note Entered On: 02/06/2023 11:29 EDT Performed On: 02/06/2023 11:29 EDT by Philomena Hills RN Nursing Discharge Note 2 Discharge Time : 02/06/2023 11:29 EDT Discharge Level of Care at Discharge : Home/Fdc/Foster Care Patient Left Unit Via : Ambulatory Patient Accompanied Off Unit with : Other: self DC Instructions Provided & Signed by Pt : Yes Patient Understands D/C Instructions : Yes Patient Instructions Discharge Signed : Yes Did Pt have Specialty Bed or Wound Vac : No Philomena Hills RN - 02/06/2023 11:29 EDT * Marvin SHAFFER, Shawna D: PERFORM Event Display: Discharge/Transfer Note Hospital Authored Date: [id number] Patient: ??JULIOCESAR BOATENG ?[facility]: [id number]?? Age:??37 Years?Sex:??Male?:??1985?? Patient Information Discharge Location: Med Surg Primary Care Physician: Greg Ponce DO Admit Date/Time: 02/02/23 01:28 Discharge Disposition Discharge Disposition: Home: No Services Discharge Diagnosis Alcohol intoxication with blood level over 0.3 (F10.129) Alcohol use disorder, severe, dependence (F10.20) Alcoholic ketoacidosis (E87.29) Moderate recurrent major depression (F33.1) _ Discharge Medications Acamprosate (acamprosate 333 mg oral delayed release tablet)?2?tab(s)?666?Milligram?By Mouth?3 times a day BuPROpion (buPROPion 100 mg oral tablet)?100?Milligram?By Mouth?2 times a day BusPIRone (busPIRone 30 mg oral tablet)?1?tab(s)?30?Milligram?By Mouth?2 times a day Fluoxetine (FLUoxetine 20 mg oral capsule)?40?Milligram?2?capsule?By Mouth?Daily Folic Acid (folic acid 1 mg oral tablet)?1?Milligram?By Mouth?Daily Multivitamin (multivitamin Multiple Vitamins oral capsule)?1?capsule?By Mouth?Daily Pantoprazole (Protonix 20 mg oral delayed release tablet)?1?tab(s)?20?Milligram?By Mouth?Daily Trazodone (traZODone 50 mg oral tablet)?50?Milligram?1?tablet?By Mouth?Daily at bedtime ?? Vaccinations and Immunoprophylaxis Hepatitis A Adult Vaccine: 1 mL (10/10/13 12:04:00) hepatitis B adult vaccine: 1 mL (01/15/21 10:29:00) influenza virus vaccine, inactivated: 0.5 mL (03/10/17 16:20:00) pneumococcal 13-valent vaccine: 0.5 mL (01/11/21 08:50:00) SARS-CoV-2 (COVID-19) mRNA-1273 vaccine: 0 Unknown (05/28/21 00:00:00) SARS-CoV-2 (COVID-19) mRNA-1273 vaccine: 0.5 Unknown (09/27/20 08:00:00) SARS-CoV-2 (COVID-19) mRNA-1273 vaccine: 0.5 Unknown (08/30/20 08:00:00) tetanus/diphtheria/pertussis, acel(Tdap): 0.5 mL (07/12/22 10:31:00) Hospital Course Chief Complaint:??pt w/ long standing hx of ETOH abuse called EMS after drinking several alcoholic beverages and stated I feel like Im going to . given 450 normal saline and 4mg zofran IV en route. ?? History of Present Illness Mr. Boateng is a 37-year-old gentleman with a history of alcohol use disorder who presented with alcohol intoxication and shortness of breath. History is obtained from the patient who is a fair historian. ?? He was admitted here for alcohol withdrawal and discharged on 01/05. He reports drinking again approximately 1 to 2 weeks after discharge. He has been drinking a 750 mL bottle of vodka per day which isless than what he was drinking before though he admitted to the ED provider that he drank multiple bottles yesterday. Today he woke up feeling short of breath and disoriented. He was worried he was going to so he called 911. He offers no other complaints at this time and states that his breathing has improved.??In the ED his alcohol level was 306. The rest of his labs were unremarkable. ?? Hospital Course Patient was placed on Valium 10 mg Q6H, and this was gradually tapered. He reports feeling well andwants to be discharged. He is willing to resume Acamprosate ?? Note: He had??completed 150 days of back to back [address], discharged on 11/07/22. He needs outpatient behavioral health in addition to ongoing alcohol treatment. I am suggesting [facility] in [place]. ?? Objective Assessment and Plan Alcohol intoxication with blood level over 0.3 (F10.129)?? Alcohol use disorder, severe, dependence (F10.20) Patient was seen by social work to explore treatment options. He is considering returning to . ?? Alcoholic ketoacidosis (E87.29):??Resolved ?? Moderate recurrent major depression (F33.1):??Continue current??medications. Need to establish ongoing mental health care. ? Code Status:??Full ?? Vital Signs?? Temperature: 97.6 DegF (02/06/23 07:45:00) Temperature Route: Oral (02/06/23 07:45:00) Pulse Rate: 70 bpm (02/06/23 07:45:00) Respiratory Rate: 19 br/min (02/06/23 07:45:00) Systolic Blood Pressure: 119 mm Hg (02/06/23 07:45:00) Diastolic Blood Pressure: 76 mm Hg (02/06/23 07:45:00) Blood pressure sites: Arm, right (02/06/23 07:45:00) Mean Arterial Pressure: 86 mm Hg (02/06/23 04:34:00) Pulse Pressure: 43 mm Hg (02/06/23 07:45:00) Oxygen Saturation: 98 % (02/06/23 07:45:00) Mode of Delivery (Oxygen): Room air (02/06/23 07:45:00) Early Warning Score: 2 (02/06/23 07:47:44) . Physical Exam Alert, no tremor Lungs: Clear to auscultation Heart: Regular rhythm, no murmur Abdomen: Soft, non-tender Extremities: No edema Follow-Up Appointments Added Follow Up ?Time Frame ?Comments Kris CHONG, Greg Hinson?Within one week?Call office to ask for hospital follow up appGreg Gillespie DO?Keep your new patient appointment as scheduled Patient Instructions Contact [facility] in [place]. They have both alcohol treatment and also treatment for depression.?? [phone] Results Discharge Labs CHEM GENERAL Sodium 137 mmol/L ()?? 02/03/2023 05:53 Potassium 4.1 mmol/L ()?? 02/03/2023 05:53 Chloride 99 mmol/L ()?? 02/03/2023 05:53 Bicarbonate Level 25 mmol/L ()?? 02/03/2023 05:53 Anion Gap 13 ()?? 02/03/2023 05:53 Glucose Level 87 mg/dL ()?? 02/03/2023 05:53 BUN 9 mg/dL ()?? 02/03/2023 05:53 Creatinine-Blood 0.7 mg/dL ()?? 02/03/2023 05:53 Estimated GFR Creatinine 122 ML/MIN/1.73 M2 ()?? 02/03/2023 05:53 Calcium 9.5 mg/dL ()?? 02/03/2023 05:53 Phosphorus 2.7 mg/dL ()?? 02/03/2023 05:53 Magnesium 1.9 mg/dL ()?? 02/03/2023 05:53 Protein, Total 6.7 Gm/dL ()?? 02/03/2023 05:53 Albumin 4.0 Gm/dL ()?? 02/03/2023 05:53 AG Ratio 1.5 ()?? 02/03/2023 05:53 Alkaline Phosphatase 64 units/L ()?? 02/03/2023 05:53 AST (SGOT) 69 units/L (High)?? 02/03/2023 05:53 ALT (SGPT) 54 units/L (High)?? 02/03/2023 05:53 Bilirubin, Total 0.9 mg/dL ()?? 02/03/2023 05:53 ? TOXICOLOGY/TDM Ethanol, Serum or Plasma 306 mg/dL (Abnormal)?? 02/01/2023 22:35 Cannabinoid Screen, Urine NONE DETECTED ()?? 02/01/2023 22:46 Cocaine Metabolite Screen, Urine NONE DETECTED ()?? 02/01/2023 22:46 Benzodiazepine Screen, Urine NONE DETECTED ()?? 02/01/2023 22:46 Opiate Screen, Urine NONE DETECTED ()?? 02/01/2023 22:46 ? UA/URINALYSIS Appear/Color, Urine YELLOW ()?? 02/01/2023 22:46 Clarity CLEAR ()?? 02/01/2023 22:46 Specific [place], Urine >1.030 (High)?? 02/01/2023 22:46 pH, Urine 6.0 ()?? 02/01/2023 22:46 Albumin, Urine 3+ (Abnormal)?? 02/01/2023 22:46 Glucose, Urine NEGATIVE ()?? 02/01/2023 22:46 Ketones, Urine 3+ (Abnormal)?? 02/01/2023 22:46 Bilirubin, Urine NEGATIVE ()?? 02/01/2023 22:46 Hemoglobin, Urine 1+ (Abnormal)?? 02/01/2023 22:46 Nitrite, Urine NEGATIVE ()?? 02/01/2023 22:46 Leukocyte, Urine NEGATIVE ()?? 02/01/2023 22:46 Urobilinogen NORMAL mg/dL ()?? 02/01/2023 22:46 WBC's, Urine <1 /HPF ()?? 02/01/2023 22:46 RBC's, Urine <1 /HPF ()?? 02/01/2023 22:46 Hyaline Cast 1 LPF ()?? 02/01/2023 22:46 Mucus SLIGHT /LPF ()?? 02/01/2023 22:46 ? VIROLOGY COVID-19 by RT-PCR NEGATIVE ()?? 02/01/2023 23:09 ? Imaging(s) Chest 2 Views Frontal and Lat ?? 02/02/2023 IMPRESSION:??No acute abnormality. ?? US Liver??07/13/22 IMPRESSION:??Coarse hepatic echotexture likely due to underlying hepatocellular disease. No suspicious lesion. ?? 50??minutes spent on discharge * Philomena Hills RN: PERFORM Event Display: Patient Education/Instruction Authored Date: Inpatient Adult Discharge Instructions [address] [address] Name: JULIOCESAR BOATENG : 1985 Visit: 02/02/2023 01:28:00 Current Date: 02/06/2023 11:08 Account: [id number] Inpatient Adult Discharge Instructions We would like [...] and their families. Surveys are administered by [employer] ?? If further treatment with your primary care physician or another doctor is recommended, it is important for you to keep the appointment. Call your primary care physician or return to the Emergency Department immediately if your condition worsens, fails to improve, or new symptoms develop. If you need to find a doctor, you can call [facility] Link for a referral at [phone] or toll free at [phone]) or log in to [email or web address].. ?? [facility], in keeping with [facility] guidance, no longer requires face masks for staff, patientsor visitors in most situations. Similiar to time spent indoors at other locations, there is the chance that you were exposed to repiratory viruses during your time with us (such as flu or COVID-19). If you develop symptoms concerning for a viral respiratory infection, please seek testing (and treatment if indicated) from your medical provider or home test kit. ?? You can view and manage your care through the patient portal or by using a health care primo of your choosing. [employer] is a website that allows you to securely view your medical information including your hospital discharge summary, office visit summaries, medications and follow-up visits. You can also request appointments, renew medications, and request access to your medical information using a health care primo of your choosing, or just ask a question. You can enroll at [email or web address] or register during your next office visit. You have been discharged from [facility], Patient Care Unit: Med Surg. If you have any questions regarding these instructions after you leave, please call us and we will be happy to assist you. [facility] Your Care Team Attending Physician Shawna Wong MD Discharging Providers Shawna Wong MD Reason for Admission pt w/ long standing hx of ETOH abuse called EMS after drinking several alcoholic beverages and stated I feel like Im going to . given 450 normal saline and 4mg zofran IV en route. Your Diagnosis Moderate recurrent major depression Alcoholic ketoacidosis Alcohol intoxication with blood level over 0.3 Alcohol use disorder, severe, dependence Tests Performed Below is a partial list of the tests performed during your hospitalization. You may have had other tests and procedures not included in this list. Please discuss all test results with your provider. Alcohol Level BENZODIAZEPINE SCREEN, URINE CANNABINOID SCREEN, URINE COCAINE SCREEN, URINE Comprehensive Metabolic Panel COVID-19 (Novel Coronavirus), Rapid PCR HOLD BLUE TUBE HOLD GEL TUBE HOLD GREEN TUBE HOLD LAVENDER TUBE Magnesium Level OPIATES SCREEN, URINE Phosphorus Level Urinalysis w/hold for Urine Culture URINE MICROSCOPIC XR Chest 2 Views Frontal and Lat Primary Care Provider Greg Ponce DO Advance Directive Health Care Proxy on File Yes - Health Care Proxy Discharge Vitals Temperature: 97.6 DegF Height: 173 cm Pulse Rate: 70 bpm Weight: 76.7 kg Respiratory Rate: 19 br/min Body Mass Index:??25.63 kg/m2??High Systolic Blood Pressure: 119 mm Hg Body surface area: 1.92 Diastolic Blood Pressure: 76 mm Hg ?? Oxygen Saturation: 98 % ?? Studies Pending All tests and labs ordered during this hospital stay have been completed unless listed below. Please discuss all pending results with your provider listed above in these instructions. ?? No incomplete studies found What to do next Instructions From Your Doctor Discharge Orders You Need to Schedule the Following Appointments Follow Up with??Greg Ponce DO When:??Within Within one week Why: Call office to ask for hospital follow up appoinmtent Where: [address] [place] [id number]- Follow Up with??Greg Ponce DO Why: Keep your new patient appointment as scheduled Where: [address] [place] [id number]- Discharge Medications JULIOCESAR BOATENG :1985 Visit Date:02/02/2023 Medications: Please continue your medications until treatment is completed or stopped by your provider. Medications not listed below should be discontinued. Discuss any questions related to medications with your provider. What How Much When Instructions Next Dose New Acamprosate (acamprosate 333 mg oral delayed release tablet) 2 tab(s) Oral 3 times a day Refills: 1 [facility]up [facility] today 5PM and 9PM Unchanged BuPROpion (buPROPion 100 mg oral tablet) 100 Milligram Oral Twice a day tonight 9PM Unchanged BusPIRone (busPIRone 30 mg oral tablet) 1 tab(s) Oral Twice a day tonight 9PM Unchanged Fluoxetine (FLUoxetine 20 mg oral capsule) 2 capsule Oral Daily tomorrow morning Unchanged Folic Acid (folic acid 1 mg oral tablet) 1 Milligram Oral Daily tomorrow morning Unchanged Multivitamin (multivitamin Multiple Vitamins oral capsule) 1 capsule Oral Daily tomorrow morning Unchanged Pantoprazole (Protonix 20 mg oral delayed release tablet) 1 tab(s) Oral Daily tomorrow morning Unchanged Trazodone (traZODone 50 mg oral tablet) 1 tab(s) Oral Daily at Bedtime tonight 9PM [facility]: [address] [place] [address] [phone] ?? What How Much When Comments Stop Taking Amlodipine (amLODIPine 5 mg oral tablet) 1 tab(s) Oral Daily as needed for Blood Pressure Duration: 30 Days Please resume amlodipine 5mg PO daily if BP > 140/ 90. ?? Test Results Below is a partial list of the most recent Laboratory test results done prior to this discharge. You may have had other tests and procedures not included in this list. Please discuss all test resultswith your provider. Est Creatinine Clearance - 140.30 mL/min (02/01/2023) Alcohol Level (02/01/2023) ???Ethanol, Serum or Plasma - 306 mg/dL BENZODIAZEPINE SCREEN, URINE (02/01/2023) ???Benzodiazepine Screen, Urine - NONE DETECTED CANNABINOID SCREEN, URINE (02/01/2023) ???Cannabinoid Screen, Urine - NONE DETECTED COCAINE SCREEN, URINE (02/01/2023) ???Cocaine Metabolite Screen, Urine - NONE DETECTED Comprehensive Metabolic Panel (02/03/2023) ???Sodium - 137 mmol/L???Potassium - 4.1 mmol/L???Chloride - 99 mmol/L???Bicarbonate Level - 25 mmol/L???Anion Gap - 13???Glucose Level - 87 mg/dL???BUN - 9 mg/dL???Creatinine-Blood - 0.7 mg/dL???Estimated GFR Creatinine - 122 ML/MIN/1.73 M2???Calcium - 9.5 mg/dL???Protein, Total - 6.7 Gm/dL???Album in - 4.0 Gm/dL???AG Ratio - 1.5???Alkaline Phosphatase - 64 units/L???AST (SGOT) - 69 units/L???ALT(SGPT) - 54 units/L???Bilirubin, Total - 0.9 mg/dL COVID-19 (Novel Coronavirus), Rapid PCR (02/01/2023) ???COVID-19 by RT-PCR - NEGATIVE HOLD BLUE TUBE (02/01/2023) ???Hold Blue Top - SPECIMEN DISCARDED AFTER 4 HOURS. HOLD GEL TUBE (02/01/2023) ???Hold Gel Top - SPECIMEN DISCARDED AFTER 1 WEEK HOLD GREEN TUBE (02/01/2023) ???Hold Green Top - SPECIMEN DISCARDED AFTER 1 WEEK HOLD LAVENDER TUBE (02/03/2023) ???Hold Lavender Top - SPECIMEN DISCARDED AFTER 24 HOURS. Magnesium Level (02/03/2023) ???Magnesium - 1.9 mg/dL OPIATES SCREEN, URINE (02/01/2023) ???Opiate Screen, Urine - NONE DETECTED Phosphorus Level (02/03/2023) ???Phosphorus - 2.7 mg/dL Urinalysis w/hold for Urine Culture (02/01/2023) ? ?Appear/Color, Urine - YELLOW? ?Clarity - CLEAR? ?Specific [place], Urine - >1.030? ?pH, Urine- 6.0???Albumin, Urine - 3+???Glucose, Urine - NEGATIVE???Ketones, Urine - 3+???Bilirubin, Urine - NEGATIVE???Hemoglobin, Urine - 1+???Nitrite, Urine - NEGATIVE???Leukocyte, Urine - NEGATIVE???Urobilinogen - NORMAL???Hold Urine Culture - Testing available 48 hours from time of collection. URINE MICROSCOPIC (02/01/2023) ? ?WBC's, Urine - <1 /HPF? ?RBC's, Urine - <1 /HPF? ?Hyaline Cast - 1 LPF? ?Mucus - SLIGHT Allergies (NKA means No Known Allergies) NKA Problems Active Problems??(7) Alcohol use disorder, severe, dependence?? Alcoholism?? Essential Hypertension?? Fatty liver us 2020?? Hyperlipidemia?? Impaired fasting glucose?? Moderate recurrent major depression?? Education Materials Below is the list of Educational Leaflet Providered with your Discharge Instructions. Alcohol Abuse?? Valuables and Belongings I fully understand and agree that [facility] accepts no responsibility for all my personal [...] to send valuables and belongings home. ?? Review of Valuable and Belonging List: With patient Date for Pt to Sign Valuables/Belongings: 02/02/23 18:11:00 ?? Other Discharge Information ? Pulmonary Rehab Status?? Pulmonary Rehab Discharge Status?? Respiratory Rate: 19 br/min ? Common Emergency Awareness Tips IS [...] are strongly encouraged to quit. Please call [facility] at [phone] or [phone]) or log in to [email or web address] for referrals to smoking cessation programs. ?? 814 Suicide & Crisis Lifeline is available 22/12 if you or someone you know needs to find a reason to keep living. By calling 005 you'll be connected to a skilled, trained counselor at a crisis center in your area. INPATIENT DISCHARGE INSTRUCTIONS SIGNATURE PAGE BOATENG JULIOCESAR Location:[facility] Registration Date and Time:02/02/2023 01:28 EDT Primary Care Physician: Greg Ponce DO, Attending Physician: Shawna Wong MD, I JULIOCESAR BOATENG, have received the above patient education materials/instructions and have verbalized understanding. If ambulance or transport services are being used I further acknowledge being given a choice of service. ?? If you need to contact me, please call me at this number: . Patient/Vice President Medical Affairs Name: Patient/Vice President Medical Affairs Signature: Relationship to Patient: Witness Name/Signature: Date: * Philomena Hills RN: PERFORM Event Display: Patient Education Leaflets Authored Date: [id number] Alcohol Abuse ?? [id number] Alcohol Abuse Alcoholic drinks harm you when you have too many of them. No set number of drinks means too much. Drinking that affects your life or your health is called alcohol abuse. Alcohol abuse can hurt your relationships with others. You may lose friends, a spouse, or even your job. You may be abusing alcohol if any of the following are true for you: ??? Duties at home or with care director suffer because of drinking. ??? Duties at work or in school suffer because of drinking. ??? You have missed work or school because of drinking. ??? You use alcohol while driving or using machinery. ??? You have legal problems such as arrests because of drinking. ??? You keep drinking even though it causes serious problems in your life. Health problems Alcohol abuse causes many health problems.??Sometimes this can happen after only drinking a ???little. ??The effects depend on how much you drink at one time and how often you drink. The effects also depend on how long you drink. For example, months, years, or decades.??Alcohol affects all parts of your body Brain Alcohol affects the central nervous system. It can damage parts of the brain that control your balance and gait, memory, thinking, and emotions. It can cause: ??? Memory loss ??? Blackouts ??? Depression ??? Agitation ??? Sleep problems ??? Seizures These changes may be radiocommunications technician (permanent). Heart and blood vessels Alcohol can damage heart muscle (cardiomyopathy). This can lead to: ??? Trouble breathing ??? Irregular heartbeat ??? Atrial fibrillation ??? Leg swelling ??? Heart failure Alcohol also makes the blood vessels stiff. This causes high blood pressure. All of these problems raise your risk of having a heart attack or stroke. Liver Alcohol causes fat to build up in the liver. This affects how the liver works. Alcohol also raises the risk for hepatitis. It can cause: ??? Belly (abdominal) pain ??? Belly swelling ??? Loss of appetite ??? Yellowed eyes or skin (jaundice) ??? Bleeding problems ??? Cirrhosis This can make it harder for you to fight off infections. The liver changes keep it from removing toxins in your blood that can cause brain disease (encephalopathy). This condition cause: ??? Confusion ??? Changed level of consciousness ??? Personality changes ??? Memory loss ??? Seizures, coma, and The liver changes can also cause the veins in your esophagus and stomach to become thin and swollenwith blood (varices). This can cause bleeding and vomiting of blood. Pancreas Alcohol can cause swelling (inflammation) of the pancreas (pancreatitis). This can cause belly pain, fever, and diabetes. Immune system Alcohol weakens your immune system. This makes it harder for you to fight infections and colds. It also makes it more likely for you to get pneumonia and tuberculosis. Cancer Alcohol raises the risk for several types of cancer. These include cancer of the mouth, esophagus, pharynx, larynx, liver, and breast. Sexual function Alcohol can lead to sexual problems. ?? Home care These guidelines will help you deal with alcohol abuse: ??? Admit you have a problem with alcohol. ??? Ask for help from your healthcare provider. Also ask for help from trusted family members or close friends. ??? Get help from people trained in dealing with alcohol abuse. This may be one-on-one counseling or group therapy. Or it may be an alcohol treatment program. ??? Join a self-help group for alcohol abuse such as Alcoholics Anonymous. ??? Stay away from people who abuse alcohol or tempt you to drink. ?? Follow-up care Follow up with your healthcare provider, or as advised. Contact these groups to get help: ??? Alcoholics Anonymous (AA) at www.aa.org. Or check the phone book for meetings near you. ??? National Alcohol and Substance Abuse Information Center (NASAIC) at www.[employer] or 818-022-2857 ??? National Independence on Alcoholism and Drug Dependence (NCADD) at www.ncadd.org or 640-AAS-SRUH (801-640-6770) ?? Call 911 Call 911 if any of these occur: ??? Trouble breathing or slow, irregular breathing ??? Chest pain ??? Sudden weakness on one side of your body or sudden trouble speaking ??? Heavy bleeding or vomiting blood ??? Very drowsy or trouble awakening ??? Fainting or loss of consciousness ??? Rapid heart rate ??? Seizure ?? When to seek medical care Call your healthcare provider right away if any of these occur:? Confusion ??? Seeing, hearing, or feeling things that aren???t there (hallucinations) ??? Pain in your upper belly that gets worse ??? Vomiting that continues, vomiting with blood, or black or tarry stools ??? Severe shakiness ?? Last Reviewed Date: 2021 ?? 5308-8405 [employer]. All rights reserved. This information is not intended as a substitute for professional medical care. Always follow your healthcare professional's instructions. ?? Patient Care team information Care Team Personnel Name: Samy Coleman RN Position: [facility] RN Member Role: Primary Care Nurse Name: Alix Vargas RN Position: [facility] RN Member Role: Primary Care Nurse Name: Nina Fulton RN Position: [facility] RN Member Role: Primary Care Nurse Name: Nataly Lima RN Position: [facility] RN Member Role: Primary Care Nurse Name: Mirela Fritz RN Position: [facility] RN Member Role: Primary Care Nurse Name: Greg Ponce DO Position: [facility] Physician - Primary Care Member Role: PCP Address: Address: [address] [place] [address] [place] [address]- Name: Ana M Barnes Position: [facility] RN Member Role: Primary Care Nurse Name: Rubina Brink RN Position: [facility] RN Member Role: Primary Care Nurse Name: Fredrick BARRETO, Neli Worley Position: [facility] RN Member Role: Primary Care Nurse Name: [facility] Attending Position: [facility] ED Medicine MD Name: Fifi Sandhu Position: [facility] ED OA Charge Member Role: ED Associate Name: Bj Li Position: [facility] ED TA [facility] Member Role: Patient Care Provider Name: Gissell Blakely RN Position: [facility] ED RN W/OE and Tasks Member Role: Patient Care Provider Care Team Related Persons Name: DOMENICA BOATENG Address: [address] [place] [address] UM Name: DENNY, KENNETH Address: home [address] [place] [address]
--- OUTSIDE RECORDS SUMMARY | 2023-02-10 09:05 | XMS_ITS | Continuity of Care Document ---
Author Name Unknown Organization [facility] lt Address [address] [place] [address]- Care Team Providers Care Recreation Facilities Supervisor Name Role Phone Greg Ponce DO Primary Care Physician [phone] Encounter [facility] Date(s): 11/20/22 - 12/20/22 [facility] Adult [address] [place] [address]- Attending Physician: Admtr, [id number] Allergies, Adverse Reactions, [...] 04/29/04 Given 1Result Comment: BOOSTER 2Result Comment: [facility][NOTE 3]# ON [address] [address]31-704-92 3Result Comment: [03/10/2017] [facility][NOTE 3] 05199-341-75 4Result Comment: [facility][NOTE 3]: [id number] 5Result Comment: [10/10/2013] #1 6Admin Note: historical data Medications amLODIPine 5 mg oral tablet 5 mg, 1, tablet, By Mouth, Daily, PRN, Please resume amlodipine 5mg PO daily if BP > 140/90., # 30 tablet, Refills 0, Tot. Refills 0, Maintenance, Blood Pressure, 12/08/21 11:02:00 EDT, Do Not Route, Partial fill upon patient request if the prescripti... Start Date: 12/08/21 Stop Date: 01/07/22 Status: Ordered buPROPion 100 mg oral tablet = 100 mg, By Mouth, Daily in AM, 0 Refills, Maintenance, 11/27/22 14:12:00 EDT, Partial fill upon patient request if [...] Dry Weight Start Date: 11/29/22 Status: Ordered thiamine 100 mg oral tablet 100 mg, By Mouth, Daily, for 30 days, # 30 tablet, Refills 0, Tot. Refills 0, Acute 12/29/22 11:01:00 EDT, 11/29/22 11:01:00 EDT, Route to Pharmacy Electronically, [facility], Partial fill upon patient request if the prescription is for a schedul... Start Date: 11/29/22 Stop Date: 12/29/22 Status: Ordered traZODone 50 mg oral tablet [...] distribution 5advised pre diabetic increased risk diabetes Procedures Procedure Date Related Diagnosis Body Site Status Reference laboratory ER [facility] 1 10/29/21 Completed Reference laboratory ER [facility] 2 03/22/21 Completed Ultrasound of abdominal - Ec hogenic liver likely fatty infiltration 01/05/21 Completed Ambulatory blood pressure mo nitoring, utilizing a system such as magnetic tape and/or computer disk, for 24 hours or longer; including recording, scanning analysis, interpretation and report 3 06/11/10 Completed [facility] 10/29/2021 white count 7.86 hemoglobin 16.8 platelets 240 3K ethanol level 418 sodium 142 potassium 3.5 chloride 100 bicarb 20 BUN 10 creatinine 27 calcium 8.6 alk phos normalbilirubin normal AST high 105 ALT high 85 total protein high 8.3 albumin normal globulin level normal 2[facility] March 22, 2021 white count 9.7 hemoglobin 17.2 platelet 282 sodium 146 potassium 4.2 chloride 106 bicarb 27 BUN 13 creatinine 1.13 know that his sugar 140 urine toxicology positive for benzodiazepines otherwise negative Covid negative calcium 9.8 magnesium 2.4 bilirubin 0.4 direct bili 0.2 AST 159 ALT 164 total protein 8.7 albumin high at 5.2 ethanol +344 32/3 time systolic BP > 140 35% > diastolic 90 Social History Social History Type Response Smoking Status Never (less than 100 in lifetime) entered on: 07/17/21 Sex Hospital Consult note * Event Display: Inpatient Consult Note, Non-BH Authored Date: History and physical note * Event Display: History and Physical Hospital Authored Date: Cardiology * Event Display: EKG Non BH Authored Date: * Event Display: EKG Non BH Authored Date: EKG study * Event Display: EKG Authored Date: Laboratory * Event Display: Non BH Lab Results Authored Date: * Event Display: Non BH Lab Results Authored Date: * Event Display: Non BH Lab Results Authored Date: Cardiology Outpatient Note * Carla Hernández: PERFORM Event Display: Cardiology Note Office Authored Date: Radiology * Event Display: CT Scan Spine, Non- BH Authored Date: Patient Care team information Care Team Personnel Name: Alix Vargas RN Position: [facility] RN Member Role: Primary Care Nurse Name: Nataly Lima RN Position: S RN Member Role: Primary Care Nurse Name: Greg Ponce DO Position: [facility] Physician - Primary Care Member Role: PCP Address: Address: [address] [place] [id number]- Name: Fredrick BARRETO, Neli Worley Position: [facility] RN Member Role: Primary Care Nurse Care Team Related Persons Name: DOMENICA COLÓN Address: home [address] [place] [address] UM Name: KENNETH BALDWIN Address: home [address] [place] [address]
--- OUTSIDE RECORDS SUMMARY | 2023-02-10 09:06 | XMS_ITS | Continuity of Care Document ---
Author Name Unknown Organization [facility] lt Address [address] [place] [id number]- Care Team Providers Care Pulmonary Care Nurse Name Role Phone Greg Ponce DO Primary Care Physician [facility]counter [facility] Date(s): 10/31/22 - 11/30/22 [facility] Adult [address] [place] [address]- Allergies, Adverse Reactions, Alerts No Known Allergies [...] 04/29/04 Given 1Result Comment: BOOSTER 2Result Comment: [facility]# [address] [phone] 3Result Comment: [03/10/2017] [facility] 61848-210-03 4Result Comment: [facility]: [id number] 5Result Comment: [10/10/2013] #1 6Admin Note: historical [...] recurrent major depression Confirmed Active Fatty liver 2020 Confirmed Active 1urine catecholamines appear normal 2negative renal artery duplex 3r/o secondary cause 4right T11 distribution 5advised pre diabetic increased risk diabetes Social History Social History Type Response Smoking Status Never (less than 100 in lifetime) entered on: 07/17/21 Sex Patient Care team information Care Team Personnel Name: Alisia Baig RN Position: [facility] RN Member Role: Primary Care Nurse Name: Alix Vargas RN Position: [facility] RN Member Role: Primary Care Nurse Name: Nataly Lima RN Position: [facility] RN Member Role: Primary Care Nurse Name: Greg Ponce DO Position: [facility] Physician - Primary Care Member Role: PCP Address: Address: [address] [place] [id number]- Name: Fredrick BARRETO, Neli Worley Position: [facility] RN Member Role: Primary Care Nurse Care Team Related Persons Name: COLÓNDOMENICA HOLLOWAY Address: [address] [place] [address] Name: KENNETH BALDWIN Address: [address] [place] [address]
--- OUTSIDE RECORDS SUMMARY | 2023-02-10 09:07 | XMS_ITS | Continuity of Care Document ---
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 Name Role Phone Greg Ponce DO Primary Care Physician Encounter [facility] Date(s): 12/31/22 - 01/03/[address] [id number] Discharge Disposition: A-D/C Home Attending Physician: Ketty Garcia MD Admitting Physician: Sunitha Cary MD Referring Physician: Not on Staff, Referring [...] 04/29/04 Given 1Result Comment: BOOSTER 2Result Comment: [facility]# ON THE [address] [phone] 3Result Comment: [03/10/2017] [facility] [id number] 4Result Comment: [facility]: [id number] 5Result Comment: [10/10/2013] #1 6Admin Note: historical [...] opioid drug. Start Date: 11/27/22 Status: Ordered Valium 5 mg oral tablet See Instructions, 10 mg By Mouth 2 times a day for 2 more days. On 01/05, decrease to 5 mg by mouth 2times a day for 2 days. On 01/07, decrease 5 mg by mouth 1 time per day for 2 days. Then stop., # 12 tablet, Refills 0, Tot. Refills 0, Acute 01/08/23 18... Start Date: 01/03/23 Stop Date: 01/08/23 Status: Ordered Problem List Condition Confirmation Course [...] distribution 5advised pre diabetic increased risk diabetes Vital Signs Most recent to oldest [Reference Range]: 1 2 3 Height 173 cm (01/03/23 8:00 AM) 173 cm (01/03/23 4:47 AM) 173 cm (01/03/23 12:31 AM) Weight 81.7 kg (01/01/23 12:10 PM) 82 kg (01/01/23 12:53 AM) 82 kg (12/31/22 5:38 PM) Oxygen Saturation [94-100 %] 100 % (01/03/23 8:00 AM) 97 % (01/03/23 4:47 AM) 98 % (01/03/23 12:31 AM) Pulse Rate [55-90 bpm] 62 bpm (01/03/23 8:00 AM) 52 bpm *L* (01/03/23 4:47 AM) 50 bpm *L* (01/03/23 12:31 AM) Body Mass Index [18.5-24.99 kg/m2] 27.3 kg/m2 *H* (01/01/23 12:10 PM) 27.4 kg/m2 *H* (01/01/23 12:53 AM) 27.4 kg/m2 *H* (12/31/22 5:38 PM) Blood Pressure [90-138/55-84 mm Hg] 116/71mm Hg (01/03/23 8:00 AM) 107/66mm Hg (01/03/23 4:47 AM) 116/68mm Hg (01/03/23 12:31 AM) Respiratory Rate [16-30 br/min] 18 br/min (01/03/23 8:00 AM) 18 br/min (01/03/23 4:47 AM) 18 br/min (01/03/23 12:31 AM) Temperature [96.8-100.4 DegF] 97.9 DegF (01/03/23 8:00 AM) 97.6 DegF (01/03/23 4:47 AM) 97.6 DegF (01/03/23 12:31 AM) Mode of Delivery (Oxygen) Room air (01/03/23 8:00 AM) Room air (01/03/23 4:47 AM) Room air (01/03/23 12:31 AM) Blood pressure sites Arm, left (01/03/23 8:00 AM) Arm, right (01/03/23 4:47 AM) Arm, left (01/03/23 12:31 AM) Temperature Route Oral (01/03/23 8:00 AM) Oral (01/03/23 4:47 AM) Oral (01/03/23 12:31 AM) Dry Weight 81.7 kg (01/01/23 12:10 PM) 82 kg (01/01/23 12:53 AM) 82 kg (12/31/22 5:38 PM) Weight Obtained Via 97.9 (01/01/23 12:10 PM) Social History Social History Type Response Smoking Status Never (less than 100 in lifetime) entered on: 07/17/21 Sex History and physical note * Wilder TAMEZ, Marlene Hernandez: PERFORM Event Display: History and Physical Hospital Authored Date: [id number] Patient: ??JULIOCESAR COLÓN ? Age:??37 Years?Sex:??Male?:??1985?? Chief Complaint/Reason for Consultation ETOH seeking detox History of Present Illness In summary this is a 37-year-old male with past medical history of alcohol use disorder, depression, hypertension who presented to the emergency room for evaluation of alcohol withdrawal. ?? Per patient history he states that he was sober for about 2 to 3 weeks then started to drink vodka and other hard liquor or on a binge for the last few days. ??He reports that he has been drinking nonstop over the last 2 to 3 days. ??He reports that his last drink was yesterday. ??During the time of my evaluation he was reporting some mild nausea, however he was tolerating sips of deysi amie. ??He was also reporting some mild abdominal tenderness. ??He denied any chest pain, no shortness of breath, does report that he has significant anxiety and reported that the phenobarbital was helping thewithdrawal symptoms, the clonidine however was helping with his blood pressure but says it does not give him the same antianxiety effect that phenobarbital does. ??He denies any current nicotine use. ?? ER course events; on admit his vitals were as follows temperature of 97.8, heart rate 98, blood pressure 186/108, 100% on room air. ??Labs without leukocytosis, anion gap 21, chloride 94, glucose 119, AST 41, ethanol was noted to be 156 on arrival. ??No imaging was completed. ??He was given Zofran,260 phenobarbital and bolus of IV fluids and being admitted to medicine for alcohol use disorder and withdrawal. Review of Systems A focused review of systems was completed and is otherwise negative except as mentioned above. Objective Vital Signs?? Temperature: 98.5 DegF (12/31/22 14:02:00) Temperature Route: Oral (12/31/22 14:02:00) Pulse Rate:??124 bpm??High (12/31/22 14:02:00) Respiratory Rate: 20 br/min (12/31/22 14:02:00) Systolic Blood Pressure:??160 mm Hg??High (12/31/22 16:23:00) Diastolic Blood Pressure:??93 mm Hg??High (12/31/22 16:23:00) Blood pressure sites: Arm, left (12/31/22 14:02:00) Mean Arterial Pressure: 137 mm Hg (12/31/22 14:02:00) Pulse Pressure: 59 mm Hg (12/31/22 14:02:00) Oxygen Saturation: 98 % (12/31/22 14:02:00) Mode of Delivery (Oxygen): Room air (12/31/22 14:02:00) ?? Physical Exam Constitutional: Alert, in no distress. Mental Status: Oriented to person, place and time. Head: Normocephalic. Eyes: Pupils are equal, round and reactive to light. Extraocular muscles intact. Ear, Nose and Throat: Oropharynx clear, mucous membranes moist. Ears and nose without masses, lesions or deformities. Trachea midline. Neck: Supple, full range of motion. Respiratory: Clear to auscultation. No wheezing, rales or rhonchi. Cardiovascular: RRR, S1 S2 regular. No murmurs, rubs or gallops. Gastrointestinal: Abdomen soft, non-tender, non-distended. Normal bowel sounds. No pulsatile mass or hepatosplenomegaly. Genitourinary: No costovertebral angle tenderness. Neurologic: Cranial nerves II-XII grossly intact. No focal neurological deficits. Moves all extremities spontaneously. Sensation and strength??intact bilaterally in upper and lower extremities. Skin: No rashes or lesions. No petechiae or purpura.?? Musculoskeletal: No cyanosis or clubbing. No gross deformities. Normal range of motion. Heme/Lymphatics/Immun: Palpation of neck reveals no swelling or tenderness of neck nodes. Psychiatric: Normal mood and affect. Assessment/Plan In summary this is a 37-year-old male with past medical history of alcohol use disorder, depression, hypertension who presented to the emergency room for evaluation of alcohol withdrawal. ?? Diagnoses Alcoholic ketoacidosis ??(E87.29) Alcohol use disorder, moderate, dependence ??(F10.20) p/w??concerns for alcohol withdrawal Reports that he was drinking heavily??with vodka??over the last 3 days,??last drink 12/30 pm Ethanol noted to be 156??on admit CIWA 17 on admit, s/p??260 phenobarbital ?? -Continue CIWA protocol -As needed phenobarbital -Order daily multivitamin, folate,??thiamine -Seizure precautions -We will hydrate with??LR -Scheduled clonidine in setting of??hypertension,??tachycardia -Social work consultation -Recheck hepatic panel in morning ?? Essential Hypertension (I10):??cont home Norvasc,??was noted to be??significantly hypertensive??secondary to alcohol withdrawal so we will add on??clonidine ?? Major depression in full remission (F32.5):??Continue home??bupropion, buspirone, fluoxetine ?? GERD (gastroesophageal reflux disease) (K21.9):??Continue home PPI ?? Quality Measures: VTE Prophylaxis:??Low risk, encourage ambulation Code Status:??Full code Ongoing Medical Necessity:??Alcohol??withdrawal, CIWA??protocol Discharge Planning:??Pending clinical course and withdrawal ? Histories Allergies Allergies ?(Active and Proposed Allergies [...] likely fatty infiltration: 01/05/21 Ultrasound scan of [place] liver fatty ;iver : 01/04/21 CT angiography of thorax/abd/pelvs nad: 07/06/19 CT of brain /c spine nad: 07/06/19 EKG sinus: 07/02/19 EK06/30/19 Reference laboratory: 06/30/19 Reference (Outside) Laboratory: 05/31/19 CT of thorax nad: 05/03/19 Chest X-ray nad: 03/19/19 Reference laboratory: 03/19/19 EKGsinus 130 normal pr qtc ??qrs nonspecific st t: 03/19/19 Reference (Outside) Laboratory: 05/02/17 Electrocardiogram, routine ECG with at least 12 leads; with interpretation and report: 05/02/17 Electrocardiogram, routine ECG with at least [...] 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 ??Alcohol use interferes with work or home: [...] Use: Never. Details:??Electronic Cigarette Use: Never. ? Psychosocial History ? Family History Mother: Alcoholism; Hypertension Father: Alcoholism; Hypertension Mat. Grandmother: Hyperlipidemia; Hypertension; Stroke Other: Hypertension Pat. Grandfather: Cancer of lung ? Medications Home Medications Amlodipine (amLODIPine 5 mg oral tablet)?5?Milligram?1?tablet?By Mouth?Daily?as needed?for 30?Days?Please resume amlodipine 5mg PO daily if BP > 140/90.?Blood Pressure BuPROpion (buPROPion 100 mg oral tablet)?100?Milligram?By Mouth?Daily in AM BusPIRone (busPIRone 30 mg oral tablet)?1?tab(s)?30?Milligram?By Mouth?2 times a day Fluoxetine (FLUoxetine 20 mg oral capsule)?40?Milligram?2?capsule?By Mouth?Daily Folic Acid (folic acid 1 mg oral tablet)?1?Milligram?By Mouth?Daily Multivitamin (multivitamin Multiple Vitamins oral capsule)?1?capsule?By Mouth?Daily Pantoprazole (Protonix 20 mg oral delayed release tablet)?1?tab(s)?20?Milligram?By Mouth?Daily Trazodone (traZODone 50 mg oral tablet)?50?Milligram?1?tablet?By Mouth?Daily at bedtime ? Inpatient Medications Medications (20) Active SCHEDULED: (11) BuPROPion 100 mg Tablet (buPROPion 100 mg oral tablet) ??100 mg, By Mouth, Daily in AM BusPIRone 10 mg Tablet (busPIRone 10 mg oral tablet) ??30 mg, By Mouth, 2 times a day Clonidine 0.1 mg Tablet (ClonIDINE Tablet) ??0.1 mg, By Mouth, Every 6 hours Fluoxetine 20 mg Capsule (FLUoxetine 20 mg oral capsule) ??40 mg, By Mouth, Daily Folic Acid 1 mg Tablet (Folic Acid Tablet) ??1 mg, By Mouth, Daily Multivitamin Tablet ??1 tablet, By Mouth, Daily NaCl 0.9% Flush 3ml (NaCL 0.9% Flush) ??3 mL, IV Push, Every 8 hours Pantoprazole 20 mg EC Tablet (Protonix 20 mg oral delayed release tablet) ??20 mg, By Mouth, Daily Pyridoxine 50 mg Tablet (Pyridoxine Tablet) ??50 mg, By Mouth, Daily Thiamine 100 mg Tablet (Thiamine Tablet) ??100 mg, By Mouth, 2 times a day Trazodone 50 mg Tablet (traZODone 50 mg oral tablet) ??50 mg, By Mouth, Daily at bedtime CONTINUOUS: (1) Lactated Ringers (1000 mL) Cont IV 1,000 mL (LR 1,000 mL) ??1,000 mL, IV Infusion, 75 mL/hr PRN: (8) Amlodipine 5 mg Tablet (amLODIPine 5 mg oral tablet) ??5 mg, By Mouth, Daily Dextromethorphan-Guaifenesin 20 mg-200 mg/10 mL Liqu UD (Robitussin DM Liquid) ??10 mL, By Mouth, Every 4 hours Melatonin 3 mg Tablet (Melatonin Tablet) ??3 mg, By Mouth, Daily at bedtime NaCl 0.9% Flush 3ml (NaCL 0.9% Flush) ??3 mL, IV Push, Every 8 hours Phenobarbital 65 mg/mL Inj (Phenobarbital Inj) ??65 mg 1 mL, IV Push, Every 2 hours Polyethylene Glycol 17 Gm Powder (MiraLax Powder) ??17 Gm 1 pack/packet, By Mouth, Daily Senna 8.6 mg / Docusate 50 mg tablet (Docusate/Senna Tablet) ??1 tablet, By Mouth, 2 times a day Simethicone 80 mg Chewable Tablet (Simethicone Tablet) ??80 mg, Chew, 3 times a day ? Results Recent Labs BLOOD COUNT & DIFF WBC 6.7 k/mm3 ()?? 12/31/2022 14:40 RBC 5.40 m/mm3 ()?? 12/31/2022 14:40 Hgb 15.6 Gm/dL ()?? 12/31/2022 14:40 Hct 45.7 % ()?? 12/31/2022 14:40 MCV 84.6 femtoliters ()?? 12/31/2022 14:40 MCH 28.9 pg ()?? 12/31/2022 14:40 MCHC 34.1 g/dL ()?? 12/31/2022 14:40 Platelet Count 195 k/mm3 ()?? 12/31/2022 14:40 RDW-SD 40.7 femtoliters ()?? 12/31/2022 14:40 MPV 9.9 femtoliters ()?? 12/31/2022 14:40 Nucleated RBC (Automated) 0.0 #/100 WBC'S ()?? 12/31/2022 14:40 Abs. NRBC 0.0 k/mm3 ()?? 12/31/2022 14:40 Abs. Neut 4.8 k/mm3 ()?? 12/31/2022 14:40 Abs. Lymph 1.1 k/mm3 ()?? 12/31/2022 14:40 Abs. [place] 0.7 k/mm3 ()?? 12/31/2022 14:40 Abs. Eo 0.0 k/mm3 ()?? 12/31/2022 14:40 Abs. Baso 0.1 k/mm3 ()?? 12/31/2022 14:40 Neut % 72.3 % ()?? 12/31/2022 14:40 Lymph % 16.3 % ()?? 12/31/2022 14:40 [place] % 10.0 % ()?? 12/31/2022 14:40 Eos % 0.0 % ()?? 12/31/2022 14:40 Baso % 1.3 % ()?? 12/31/2022 14:40 Imm Gran 0.1 % ()?? 12/31/2022 14:40 Abs. Imm Gran 0.0 k/mm3 ()?? 12/31/2022 14:40 ?? CHEM GENERAL Sodium 139 mmol/L ()?? 12/31/2022 14:40 Potassium 3.9 mmol/L ()?? 12/31/2022 14:40 Chloride 94 mmol/L (Low)?? 12/31/2022 14:40 Bicarbonate Level 24 mmol/L ()?? 12/31/2022 14:40 Anion Gap 21 (High)?? 12/31/2022 14:40 Glucose Level 119 mg/dL (High)?? 12/31/2022 14:40 BUN 13 mg/dL ()?? 12/31/2022 14:40 Creatinine-Blood 0.8 mg/dL ()?? 12/31/2022 14:40 Estimated GFR Creatinine 117 ML/MIN/1.73 M2 ()?? 12/31/2022 14:40 Magnesium 1.8 mg/dL ()?? 12/31/2022 14:40 Alkaline Phosphatase 88 units/L ()?? 12/31/2022 14:40 Lipase 22 units/L ()?? 12/31/2022 14:40 AST (SGOT) 41 units/L (High)?? 12/31/2022 14:40 ALT (SGPT) 37 units/L ()?? 12/31/2022 14:40 Bilirubin, Total 0.3 mg/dL ()?? 12/31/2022 14:40 ?? HEME OTHER Hold Blue Top SPECIMEN DISCARDED AFTER 4 HOURS. ()?? 12/31/2022 14:40 ?? MISC. CHEMISTRY Hold Green Top SPECIMEN DISCARDED AFTER 1 WEEK ()?? 12/31/2022 14:40 Hold Gel Top SPECIMEN DISCARDED AFTER 1 WEEK ()?? 12/31/2022 14:40 ?? TOXICOLOGY/TDM Ethanol, Serum or Plasma 156 mg/dL (Abnormal)?? 12/31/2022 14:40 ?? URINE OTHER Est Creatinine Clearance 122.77 mL/min ()?? 12/31/2022 15:30 ? EKG study * Event Display: ECG 12-Lead Authored Date: Please click on pdf link to open report * Event Display: ECG 12-Lead Authored Date: Ventricular Rate: 97 BPM Atrial Rate: 97 BPM P-R Interval: 154 ms QRS Duration: 78 ms Q-T Interval: 348 ms QTC Calculation(Bazett): 441 ms P [place]: 49 degrees R [place]: 0 degrees T [place]: 30 degrees Normal sinus rhythm Normal ECG When compared with ECG of 27-NOV-2022 15:10, No significant change was found Confirmed by ARCELIA SHAFFER [facility] ([id number]) on 01/01/2023 5:57:43 PM [place]: ARCELIA SHAFFER,[facility] Progress note * Donaldo BARRETO, Nina: PERFORM, SIGN, VERIFY Event Display: [facility] Authored Date: Patient: JULIOCESAR COLÓN Age: 37 years Sex: Male : 1985 Associated Diagnoses: None Author: Nina Fulton RN Findings Problem Related to Alteration in Psychosocial : Alteration in Psychosocial Function/new 01/03/2023 11:00 EDT Alteration in Psychosocial Related to Acute Alcohol Withdrawal Goals & Outcomes, Psychosocial Pt successfully withdraws with minimal side effects Interventions, Psychosocial Assess psychosocial needs, Assess readiness to learn needed lifestyle changes, Assess/monitor level of consciousness Goals/Interventions, Psychosocial Yes Psychosocial, Problem Start 01/01/2023 15:03 Reviewed Plan with, Psychosocial Patient Patient Progression, Psychosocial Pt progressing according to plan . Evaluation Pt AOx4, up ad roseline. VSS, denies N/V, pain. pt d/raza this am, ambulatory upon d/c, refused wheelchair. Pt d/raza via ride from friend. Discharge Information Case Management Discharge Plan : Case Management Discharge Plan Data 01/03/2023 10:47 EDT Discharge Level of Care at Discharge Home/Shelter/Foster Care * Marycarmen Sifuentes RN: PERFORM, MODIFY, SIGN, VERIFY Event Display: Progress Note Hospital Authored Date: Patient: JULIOCESAR COLÓN Age: 37 years Sex: Male : 1985 Associated Diagnoses: None Author: Marycarmen Sifuentes RN Findings Problem Related to Alteration in Psychosocial : Alteration in Psychosocial Function/new 01/02/2023 23:00 EDT Alteration in Psychosocial Related to Acute Alcohol Withdrawal Goals & Outcomes, Psychosocial Pt successfully withdraws with minimal side effects Interventions, Psychosocial Assess psychosocial needs, Provide a calm, supportive environment Goals/Interventions, Psychosocial Yes Psychosocial, Problem Start 01/01/2023 15:03 Reviewed Plan with, Psychosocial Patient Patient Progression, Psychosocial Pt progressing according to plan . Evaluation pt alert and oriented x4. Denied any pain or discomfort. No ETOH withdrawal symptoms noted. Lungs CTA. Gait noted steady. Call jack within reach. pt possible discharge home today. . * Ketty Garcia MD: PERFORM, MODIFY Event Display: Progress Note Hospital Authored Date: Patient: ??JULIOCESAR COLÓN ? Age:??37 Years?Sex:??Male?:??1985?? Subjective Patient feels anxious but better than yesterday. States Valium is improving his withdrawal symptoms. Review of Systems General: Denies fever or chills Cardiovascular: Denies any chest pain or palpitations. Pulmonary: Denies any shortness of breath or cough. GI: Denies any abdominal pain, nausea, vomiting, diarrhea or constipation. : Denies any urinary retention. Allergies Allergies ?(Active and Proposed Allergies Only) NKA? (Severity: Unknown severity, Onset: Unknown) ? Objective Vital Signs?? Temperature: 97.3 DegF (01/02/23 08:00:00) Temperature Route: Oral (01/02/23 08:00:00) Pulse Rate: 63 bpm (01/02/23 08:00:00) Respiratory Rate: 18 br/min (01/02/23 08:00:00) Systolic Blood Pressure: 115 mm Hg (01/02/23 08:00:00) Diastolic Blood Pressure: 67 mm Hg (01/02/23 08:00:00) Blood pressure sites: Arm, left (01/02/23 08:00:00) Mean Arterial Pressure: 86 mm Hg (01/02/23 04:37:00) Pulse Pressure: 48 mm Hg (01/02/23 08:00:00) Oxygen Saturation: 98 % (01/02/23 08:00:00) Mode of Delivery (Oxygen): Room air (01/02/23 08:00:00) Early Warning Score: 5 (01/02/23 08:31:55) ? Intake/Output? 12/31 16:01 01/02 07:00 08 07:00 12/31 07:00 08 07:00 ?? 01/02 10:39 01/02 10:39 01/02 06:59 01/01 06:59 12/31 06:59 Intake ? 3187.5 ?120 ? 2480 ?587.5 ?0 Output ?800 ?800 ?0 ?0 ?0 Net Total ? 2387.5 ? -680 ? 2480 ?587.5 ?0 ? Urine Count ?2 ?0 ?2 ?0 ?0 ? Physical Exam Constitutional: Alert, in no acute distress. Head EENT: Extraocular muscle movement intact.??Moist mucous membranes.?? Neck: Supple. No JVD. Respiratory: Clear to auscultation. No wheezing or crackles. No use of accessory muscles. Cardiovascular: S1S2 regular. No murmurs, rubs or gallops. Gastrointestinal: Abdomen soft, non-tender, non-distended. Normal bowel sounds. Genitourinary: No CVA tenderness. Extremities: No lower extremity pitting??edema. No cyanosis or clubbing. Neurologic: AAOx3, Speech normal. No focal neurological deficits. Skin: No rash. Psychiatric: Normal mood and affect _ Inpatient Medications Medications (23) Active SCHEDULED: (12) BuPROPion 100 mg Tablet (buPROPion 100 mg oral tablet) ??100 mg, By Mouth, Daily in AM BusPIRone 10 mg Tablet (busPIRone 10 mg oral tablet) ??30 mg, By Mouth, 2 times a day Clonidine 0.1 mg Tablet (ClonIDINE Tablet) ??0.1 mg, By Mouth, Every 8 hours Diazepam 5 mg Tablet (Valium 5 mg oral tablet) ??10 mg, By Mouth, 3 times a day Fluoxetine 20 mg Capsule (FLUoxetine 20 mg oral capsule) ??40 mg, By Mouth, Daily Folic Acid 1 mg Tablet (Folic Acid Tablet) ??1 mg, By Mouth, Daily Multivitamin Tablet ??1 tablet, By Mouth, Daily NaCl 0.9% Flush 3ml (NaCL 0.9% Flush) ??3 mL, IV Push, Every 8 hours Pantoprazole 20 mg EC Tablet (Protonix 20 mg oral delayed release tablet) ??20 mg, By Mouth, Daily Pyridoxine 50 mg Tablet (Pyridoxine Tablet) ??50 mg, By Mouth, Daily Thiamine 100 mg Tablet (Thiamine Tablet) ??100 mg, By Mouth, 2 times a day Trazodone 50 mg Tablet (traZODone 50 mg oral tablet) ??50 mg, By Mouth, Daily at bedtime CONTINUOUS: (0) PRN: (11) Amlodipine 5 mg Tablet (amLODIPine 5 mg oral tablet) ??5 mg, By Mouth, Daily Dextromethorphan-Guaifenesin 20 mg-200 mg/10 mL Liqu UD (Robitussin DM Liquid) ??10 mL, By Mouth, Every 4 hours Lorazepam 2 mg Inj Syringe (Ativan Inj) ??1 mg, IV Push Slowly, Every 2 hours Lorazepam 2 mg Inj Syringe (Ativan Inj) ??2 mg, IV Push Slowly, Every 2 hours Lorazepam 2 mg Inj Syringe (Ativan Inj) ??2 mg, IV Push Slowly, Every hour Melatonin 3 mg Tablet (Melatonin Tablet) ??3 mg, By Mouth, Daily at bedtime NaCl 0.9% Flush 3ml (NaCL 0.9% Flush) ??3 mL, IV Push, Every 8 hours Ondansetron 2mg/mL Inj (2mL Vial) (Zofran Inj) ??4 mg, IV Push, Every 6 hours Polyethylene Glycol 17 Gm Powder (MiraLax Powder) ??17 Gm 1 pack/packet, By Mouth, Daily Senna 8.6 mg / Docusate 50 mg tablet (Docusate/Senna Tablet) ??1 tablet, By Mouth, 2 times a day Simethicone 80 mg Chewable Tablet (Simethicone Tablet) ??80 mg, Chew, 3 times a day ? Results Recent Labs BLOOD COUNT & DIFF WBC 4.3 k/mm3 ()?? 01/01/2023 05:39 RBC 4.56 m/mm3 (Low)?? 01/01/2023 05:39 Hgb 13.6 Gm/dL (Low)?? 01/02/2023 05:13 Hct 41.7 % ()?? 01/02/2023 05:13 MCV 86.0 femtoliters ()?? 01/01/2023 05:39 MCH 28.9 pg ()?? 01/01/2023 05:39 MCHC 33.7 g/dL ()?? 01/01/2023 05:39 Platelet Count 148 k/mm3 (Low)?? 01/01/2023 05:39 RDW-SD 41.8 femtoliters ()?? 01/01/2023 05:39 MPV 10.0 femtoliters ()?? 01/01/2023 05:39 Nucleated RBC (Automated) 0.0 #/100 WBC'S ()?? 01/01/2023 05:39 Abs. NRBC 0.0 k/mm3 ()?? 01/01/2023 05:39 ?? CHEM GENERAL Sodium 137 mmol/L ()?? 01/02/2023 05:13 Potassium 3.7 mmol/L ()?? 01/02/2023 05:13 Chloride 100 mmol/L ()?? 01/02/2023 05:13 Bicarbonate Level 25 mmol/L ()?? 01/02/2023 05:13 Anion Gap 12 ()?? 01/02/2023 05:13 Glucose Level 99 mg/dL ()?? 01/01/2023 05:39 BUN 10 mg/dL ()?? 01/01/2023 05:39 Creatinine-Blood 0.8 mg/dL ()?? 01/02/2023 05:13 Estimated GFR Creatinine 117 ML/MIN/1.73 M2 ()?? 01/02/2023 05:13 Calcium 8.9 mg/dL ()?? 01/01/2023 05:39 Protein, Total 6.4 Gm/dL ()?? 01/01/2023 05:39 Albumin 4.0 Gm/dL ()?? 01/01/2023 05:39 Alkaline Phosphatase 70 units/L ()?? 01/01/2023 05:39 AST (SGOT) 34 units/L ()?? 01/01/2023 05:39 ALT (SGPT) 27 units/L ()?? 01/01/2023 05:39 Bilirubin, Total 0.6 mg/dL ()?? 01/01/2023 05:39 Bilirubin, Direct 0.1 mg/dL ()?? 01/01/2023 05:39 Bilirubin, Indirect 0.5 mg/dL ()?? 01/01/2023 05:39 ?? COAG INR 1.0 ()?? 01/01/2023 05:39 Protime (PT) 10.3 seconds ()?? 01/01/2023 05:39 ? Assessment/Plan ??In summary this is a 37-year-old male with past medical history of alcohol use disorder, depression, hypertension who presented to the emergency room for evaluation of alcohol withdrawal. ?? Diagnoses Alcoholic ketoacidosis ??(E87.29) Alcohol use disorder, moderate, dependence ??(F10.20) p/w??concerns for alcohol withdrawal Reports that he was drinking heavily??with vodka??over the last 3 days,??last drink 12/30 pm Ethanol noted to be 156??on admission -Continue CIWA protocol with ativan -Daily multivitamin, folate,??thiamine -Seizure precautions -Scheduled clonidine, taper today, likely will discontinue at discharge tomorrow -Scheduled valium 10mg??TID, then taper tomorrow ?? Essential Hypertension (I10):??cont home Norvasc - Clonidine taper ?? Major depression in full remission (F32.5):??Continue home??bupropion, buspirone, fluoxetine ?? GERD (gastroesophageal reflux disease) (K21.9):??Continue home PPI ?? Quality Measures: VTE Prophylaxis:??Low risk, encourage ambulation Code Status:??Full code Ongoing Medical Necessity:??CIWA, SW Discharge Planning:??Discharge home on Sat pending above Note * Radha Knowles RN: PERFORM Event Display: Discharge/Transfer Note Hospital Authored Date: [id number] Nursing Discharge Note Entered On: 01/03/2023 10:47 EDT Performed On: 01/03/2023 10:47 EDT by Radha Knowles RN Nursing Discharge Note 2 Discharge Time : 01/03/2023 10:47 EDT Discharge Level of Care at Discharge : Home/Shelter/Foster Care Patient Left Unit Via : Ambulatory Patient Accompanied Off Unit with : Responsible adult DC Instructions Provided & Signed by Pt : Yes Patient Understands D/C Instructions : Yes Patient Instructions Discharge Signed : Yes Did Pt have Specialty Bed or Wound Vac : No Eleni BARRETO, Radha - 01/03/2023 10:47 EDT * Ketty Garcia MD: PERFORM Event Display: Discharge/Transfer Note Hospital Authored Date: [id number] Patient: ??COLÓN JULIOCESAR ? Age:??37 Years?Sex:??Male?:??1985?? Patient Information Discharge Location: Med Surg Primary Care Physician: Greg Ponce DO Admit Date/Time: 12/31/22 16:01 Discharge Disposition Discharge Disposition: Home: No Services Discharge Diagnosis Alcohol use disorder, moderate, dependence (F10.20) Essential Hypertension (I10) Major depression in full remission (F32.5) Alcoholic ketoacidosis (E87.29) GERD (gastroesophageal reflux disease) (K21.9) ?? _ Discharge Medications Amlodipine (amLODIPine 5 mg oral tablet)?5?Milligram?1?tablet?By Mouth?Daily?as needed?for 30?Days?Please resume amlodipine 5mg PO daily if BP > 140/90.?Blood Pressure BuPROpion (buPROPion 100 mg oral tablet)?100?Milligram?By Mouth?Daily in AM BusPIRone (busPIRone 30 mg oral tablet)?1?tab(s)?30?Milligram?By Mouth?2 times a day Diazepam (Valium 5 mg oral tablet)?See Instructions?10 mg By Mouth 2 times a day for 2 more days. On 01/05, decrease to 5 mg by mouth 2 times a day for 2 days. On 01/07, decrease 5 mg by mouth 1 time per day for 2 days. Then stop. Fluoxetine (FLUoxetine 20 mg oral capsule)?40?Milligram?2?capsule?By Mouth?Daily Folic Acid (folic acid 1 mg oral tablet)?1?Milligram?By Mouth?Daily Multivitamin (multivitamin Multiple Vitamins oral capsule)?1?capsule?By Mouth?Daily Pantoprazole (Protonix 20 mg oral delayed release tablet)?1?tab(s)?20?Milligram?By Mouth?Daily Trazodone (traZODone 50 mg oral tablet)?50?Milligram?1?tablet?By Mouth?Daily at bedtime ? Medications Started valium taper Medications Discontinued none Doses Changed none Allergies Allergies ?(Active and Proposed Allergies Only) NKA? (Severity: Unknown severity, Onset: Unknown) ? PCP Follow-Up/Heads-Up Admitted for alcohol withdrawal substance use counseling Hospital Course In summary this is a 37-year-old male with past medical history of alcohol use disorder, depression, hypertension who presented to the emergency room for evaluation of alcohol withdrawal. ?? Alcoholic ketoacidosis??(E87.29) Alcohol use disorder, moderate, dependence??(F10.20) Patient monitored on [facility] with uncomplicated withdrawal course. Started on valium and will be tapered at home. ?? Essential Hypertension (I10): Cont home Norvasc Clonidine tapered in the hospital ? Major depression in full remission (F32.5):??Continue home bupropion, buspirone, fluoxetine ? GERD (gastroesophageal reflux disease) (K21.9): Continue home PPI ?? Objective ??patient feeling well. Gait is steady. ? Vital Signs?? Temperature: 97.6 DegF (01/03/23 04:47:00) Temperature Route: Oral (01/03/23 04:47:00) Pulse Rate:??52 bpm??Low (01/03/23 04:47:00) Respiratory Rate: 18 br/min (01/03/23 04:47:00) Systolic Blood Pressure: 107 mm Hg (01/03/23 04:47:00) Diastolic Blood Pressure: 66 mm Hg (01/03/23 04:47:00) Blood pressure sites: Arm, right (01/03/23 04:47:00) Mean Arterial Pressure: 80 mm Hg (01/03/23 04:47:00) Pulse Pressure: 41 mm Hg (01/03/23 04:47:00) Oxygen Saturation: 97 % (01/03/23 04:47:00) Mode of Delivery (Oxygen): Room air (01/03/23 04:47:00) Early Warning Score: 5 (01/03/23 04:48:20) ? . Physical Exam Constitutional: Alert, in no acute distress. Head EENT: Extraocular muscle movement intact.??Moist mucous membranes.?? Neck: Supple. No JVD. Respiratory: Clear to auscultation. No wheezing or crackles. No use of accessory muscles. Cardiovascular: S1S2 regular. No murmurs, rubs or gallops. Gastrointestinal: Abdomen soft, non-tender, non-distended. Normal bowel sounds. Genitourinary: No CVA tenderness. Extremities: No lower extremity pitting??edema. No cyanosis or clubbing. Neurologic: AAOx3, Speech normal. No focal neurological deficits. Skin: No rash. Psychiatric: Normal mood and affect Patient Education Titles Diazepam Oral Tablet?? Follow-Up Appointments Added Follow Up ?Time Frame ?Comments Kris CHONG, Greg Hinson?1 month Patient Instructions New medication: valium (12 tablets) 10 mg By Mouth 2 times a day for 2 more days. On 01/05, decrease to 5 mg by mouth 2 times a day for 2 days. On 01/07, decrease 5 mg by mouth 1 time per day for 2 days.Then stop.?? Follow up with your primary care Post Discharge Care Diet: Regular Diet Activity: ambulate as tolerated Code Status: ?? Full Resuscitation Condition: Fair Prognosis: Fair Results Discharge Labs BLOOD COUNT & DIFF WBC 4.3 k/mm3 ()?? 01/01/2023 05:39 RBC 4.56 m/mm3 (Low)?? 01/01/2023 05:39 Hgb 13.6 Gm/dL (Low)?? 01/02/2023 05:13 Hct 41.7 % ()?? 01/02/2023 05:13 MCV 86.0 femtoliters ()?? 01/01/2023 05:39 MCH 28.9 pg ()?? 01/01/2023 05:39 MCHC 33.7 g/dL ()?? 01/01/2023 05:39 Platelet Count 148 k/mm3 (Low)?? 01/01/2023 05:39 RDW-SD 41.8 femtoliters ()?? 01/01/2023 05:39 MPV 10.0 femtoliters ()?? 01/01/2023 05:39 Nucleated RBC (Automated) 0.0 #/100 WBC'S ()?? 01/01/2023 05:39 Abs. NRBC 0.0 k/mm3 ()?? 01/01/2023 05:39 Abs. Neut 4.8 k/mm3 ()?? 12/31/2022 14:40 Abs. Lymph 1.1 k/mm3 ()?? 12/31/2022 14:40 Abs. [place] 0.7 k/mm3 ()?? 12/31/2022 14:40 Abs. Eo 0.0 k/mm3 ()?? 12/31/2022 14:40 Abs. Baso 0.1 k/mm3 ()?? 12/31/2022 14:40 Neut % 72.3 % ()?? 12/31/2022 14:40 Lymph % 16.3 % ()?? 12/31/2022 14:40 [place] % 10.0 % ()?? 12/31/2022 14:40 Eos % 0.0 % ()?? 12/31/2022 14:40 Baso % 1.3 % ()?? 12/31/2022 14:40 Imm Gran 0.1 % ()?? 12/31/2022 14:40 Abs. Imm Gran 0.0 k/mm3 ()?? 12/31/2022 14:40 ?? CHEM GENERAL Sodium 137 mmol/L ()?? 01/02/2023 05:13 Potassium 3.7 mmol/L ()?? 01/02/2023 05:13 Chloride 100 mmol/L ()?? 01/02/2023 05:13 Bicarbonate Level 25 mmol/L ()?? 01/02/2023 05:13 Anion Gap 12 ()?? 01/02/2023 05:13 Glucose Level 99 mg/dL ()?? 01/01/2023 05:39 BUN 10 mg/dL ()?? 01/01/2023 05:39 Creatinine-Blood 0.8 mg/dL ()?? 01/02/2023 05:13 Estimated GFR Creatinine 117 ML/MIN/1.73 M2 ()?? 01/02/2023 05:13 Calcium 8.9 mg/dL ()?? 01/01/2023 05:39 Magnesium 1.8 mg/dL ()?? 12/31/2022 14:40 Protein, Total 6.4 Gm/dL ()?? 01/01/2023 05:39 Albumin 4.0 Gm/dL ()?? 01/01/2023 05:39 Alkaline Phosphatase 70 units/L ()?? 01/01/2023 05:39 Lipase 22 units/L ()?? 12/31/2022 14:40 AST (SGOT) 34 units/L ()?? 01/01/2023 05:39 ALT (SGPT) 27 units/L ()?? 01/01/2023 05:39 Bilirubin, Total 0.6 mg/dL ()?? 01/01/2023 05:39 Bilirubin, Direct 0.1 mg/dL ()?? 01/01/2023 05:39 Bilirubin, Indirect 0.5 mg/dL ()?? 01/01/2023 05:39 ?? COAG INR 1.0 ()?? 01/01/2023 05:39 Protime (PT) 10.3 seconds ()?? 01/01/2023 05:39 ?? HEME OTHER Hold Blue Top SPECIMEN DISCARDED AFTER 4 HOURS. ()?? 12/31/2022 14:40 ? MISC. CHEMISTRY Hold Green Top SPECIMEN DISCARDED AFTER 1 WEEK ()?? 12/31/2022 14:40 Hold Gel Top SPECIMEN DISCARDED AFTER 1 WEEK ()?? 12/31/2022 14:40 ?? TOXICOLOGY/TDM Ethanol, Serum or Plasma 156 mg/dL (Abnormal)?? 12/31/2022 14:40 ? URINE OTHER Est Creatinine Clearance 122.77 mL/min ()?? 12/31/2022 15:30 ? VIROLOGY COVID-19 by RT-PCR NEGATIVE ()?? 12/31/2022 15:51 ? _29 minutes spent on discharge * Philomena Hills RN: PERFORM Event Display: Patient Education/Instruction Authored Date: [id number] Inpatient Adult Discharge Instructions [address] [address] Name: JULIOCESAR COLÓN : 1985 Visit: 12/31/2022 16:01:00 Current Date: 01/03/2023 09:54 Account: [id number] Inpatient Adult Discharge Instructions We would like [...] and their families. Surveys are administered by [employer] ?? If further treatment with your primary care physician or another doctor is recommended, it is important for you to keep the appointment. Call your primary care physician or return to the Emergency Department immediately if your condition worsens, fails to improve, or new symptoms develop. If you need to find a doctor, you can call [facility] [employer] for a referral at [phone] or toll free at [phone]) or log in to [email or web address].. ?? You can view and manage your care through the patient portal or by using a health care primo of your choosing. [employer] is a website that allows you to securely view your medical information including your hospital discharge summary, office visit summaries, medications and follow-up visits. You can also request appointments, renew medications, and request access to your medical information using a health care primo of your choosing, or just ask a question. You can enroll at [email or web address] or register during your next office visit. You have been discharged from [facility], Patient Care Unit: Med Surg. If you have any questions regarding these instructions after you leave, please call us and we will be happy to assist you. [facility] Your Care Team Attending Physician Jose SHAFFER, Ketty Discharging Providers Ketty Garcia MD Reason for Admission ETOH seeking detox Your Diagnosis Alcohol use disorder, moderate, dependence Essential Hypertension Major depression in full remission GERD (gastroesophageal reflux disease) Alcoholic ketoacidosis Tests Performed Below is a partial list of the tests performed during your hospitalization. You may have had other tests and procedures not included in this list. Please discuss all test results with your provider. Alk Phos ALT AST Basic Metabolic Panel Bilirubin Total BUN CBC CBC w/ Differential COVID-19 (Novel Coronavirus), Rapid PCR Creatinine Electrolytes Ethanol Level Glucose Level Hepatic Function Panel Hgb + Hct Hold Blue Top Tube HOLD GEL TUBE HOLD GREEN TUBE INR Lipase Magnesium Level Primary Care Provider Greg Ponce DO Advance Directive Health Care Proxy on File Yes - Health Care Proxy Discharge Vitals Temperature: 97.9 DegF Height: 173 cm Pulse Rate: 62 bpm Weight: 81.7 kg Respiratory Rate: 18 br/min Body Mass Index:??27.3 kg/m2??High Systolic Blood Pressure: 116 mm Hg Body surface area: 1.98 Diastolic Blood Pressure: 71 mm Hg ?? Oxygen Saturation: 100 % ?? Studies Pending All tests and labs ordered during this hospital stay have been completed unless listed below. Please discuss all pending results with your provider listed above in these instructions. ?? No incomplete studies found What to do next Instructions From Your Doctor New medication: valium (12 tablets) 10 mg By Mouth 2 times a day for 2 more days. On 01/05, decrease to 5 mg by mouth 2 times a day for 2 days. On 01/07, decrease 5 mg by mouth 1 time per day for 2 days.Then stop.?? Follow up with your primary care Discharge Orders Diet:??Regular Diet Activity:??ambulate as tolerated Code Status:?? Full Resuscitation Condition:??Fair Prognosis:??Fair You Need to Schedule the Following Appointments Follow Up with??Greg Ponce DO When:??Within 1 month Where: [address] [place] [id number]- Discharge Medications JULIOCESAR COLÓN :1985 Visit Date:12/31/2022 Medications: Please continue your medications until treatment is completed or stopped by your provider. Medications not listed below should be discontinued. Discuss any questions related to medications with your provider. What How Much When Instructions Next Dose New Diazepam (Valium 5 mg oral tablet) See instructions 10 mg By Mouth 2 times a day for 2 more days. On 01/05, decrease to 5 mg by mouth 2 times a day for 2 days. On 01/07, decrease 5 mg by mouth 1 time per day for 2 days. Then stop. ?? [facility] Tonight 9PM Unchanged Amlodipine (amLODIPine 5 mg oral tablet) 1 tab(s) Oral Daily as needed for Blood Pressure Duration: 30 Days Please resume amlodipine 5mg PO daily if BP > 140/ 90. ?? Tomorrow morning Unchanged BuPROpion (buPROPion 100 mg oral tablet) 100 Milligram Oral Daily in the morning Tomorrow morning Unchanged BusPIRone (busPIRone 30 mg oral tablet) 1 tab(s) Oral Twice a day Tonight 9PM Unchanged Fluoxetine (FLUoxetine 20 mg oral capsule) 2 capsule Oral Daily Tomorrow morning Unchanged Folic Acid (folic acid 1 mg oral tablet) 1 Milligram Oral Daily Tomorrow morning Unchanged Multivitamin (multivitamin Multiple Vitamins oral capsule) 1 capsule Oral Daily Tomorrow morning Unchanged Pantoprazole (Protonix 20 mg oral delayed release tablet) 1 tab(s) Oral Daily Tomorrow morning Unchanged Trazodone (traZODone 50 mg oral tablet) 1 tab(s) Oral Daily at Bedtime Tonight 9PM [facility]: [address] [place] [address] [phone] Test Results Below is a partial list of the most recent Laboratory test results done prior to this discharge. You may have had other tests and procedures not included in this list. Please discuss all test resultswith your provider. Est Creatinine Clearance - 122.77 mL/min (12/31/2022) Alk Phos (12/31/2022) ???Alkaline Phosphatase - 88 units/L ALT (12/31/2022) ???ALT (SGPT) - 37 units/L AST (12/31/2022) ???AST (SGOT) - 41 units/L Basic Metabolic Panel (01/01/2023) ???Sodium - 136 mmol/L???Potassium - 3.5 mmol/L???Chloride - 97 mmol/L???Bicarbonate Level - 24 mmol/L???Anion Gap - 15???Glucose Level - 99 mg/dL???BUN - 10 mg/dL???Creatinine-Blood - 0.8 mg/dL???Estimated GFR Creatinine - 117 ML/MIN/1.73 M2???Calcium - 8.9 mg/dL Bilirubin Total (12/31/2022) ???Bilirubin, Total - 0.3 mg/dL BUN (12/31/2022) ???BUN - 13 mg/dL CBC (01/01/2023) ???WBC - 4.3 k/mm3???RBC - 4.56 m/mm3???Hgb - 13.2 Gm/dL???Hct - 39.2 %???MCV - 86.0 femtoliters???MCH - 28.9 pg???MCHC - 33.7 g/dL???Platelet Count - 148 k/mm3???RDW-SD - 41.8 femtoliters???MPV - 10.0 femtoliters???Nucleated RBC (Automated) - 0.0 #/100 WBC'S???Abs. NRBC - 0.0 k/mm3 CBC w/ Differential (12/31/2022) ???WBC - 6.7 k/mm3???RBC - 5.40 m/mm3???Hgb - 15.6 Gm/dL???Hct - 45.7 %???MCV - 84.6 femtoliters???MCH - 28.9 pg???MCHC - 34.1 g/dL???Platelet Count - 195 k/mm3???RDW-SD - 40.7 femtoliters???MPV - 9.9 femtoliters???Nucleated RBC (Automated) - 0.0 #/100 WBC'S???Abs. NRBC - 0.0 k/mm3???Abs. Neut - 4.8 k/mm3???Abs. Lymph - 1.1 k/mm3???Abs. [place] - 0.7 k/mm3???Abs. Eo - 0.0 k/mm3???Abs. Baso - 0.1 k/mm3???Neut % - 72.3 %???Lymph % - 16.3 %???[place] % - 10.0 %???Eos % - 0.0 %???Baso % - 1.3 %???Imm Gran - 0.1 %???Abs. Imm Gran - 0.0 k/mm3 COVID-19 (Novel Coronavirus), Rapid PCR (12/31/2022) ???COVID-19 by RT-PCR - NEGATIVE Creatinine (01/02/2023) ???Creatinine-Blood - 0.8 mg/dL???Estimated GFR Creatinine - 117 ML/MIN/1.73 M2 Electrolytes (01/02/2023) ???Sodium - 137 mmol/L???Potassium - 3.7 mmol/L???Chloride - 100 mmol/L???Bicarbonate Level - 25 mmol/L???Anion Gap - 12 Ethanol Level (12/31/2022) ???Ethanol, Serum or Plasma - 156 mg/dL Glucose Level (12/31/2022) ???Glucose Level - 119 mg/dL Hepatic Function Panel (01/01/2023) ???Protein, Total - 6.4 Gm/dL???Albumin - 4.0 Gm/dL???Alkaline Phosphatase - 70 units/L???AST (SGOT) - 34 units/L???ALT (SGPT) - 27 units/L???Bilirubin, Total - 0.6 mg/dL???Bilirubin, Direct - 0.1 mg/dL???Bilirubin, Indirect - 0.5 mg/dL Hgb + Hct (01/02/2023) ???Hgb - 13.6 Gm/dL???Hct - 41.7 % Hold Blue Top Tube (12/31/2022) ???Hold Blue Top - SPECIMEN DISCARDED AFTER 4 HOURS. HOLD GEL TUBE (12/31/2022) ???Hold Gel Top - SPECIMEN DISCARDED AFTER 1 WEEK HOLD GREEN TUBE (12/31/2022) ???Hold Green Top - SPECIMEN DISCARDED AFTER 1 WEEK INR (01/01/2023) ???INR - 1.0???Protime (PT) - 10.3 seconds Lipase (12/31/2022) ???Lipase - 22 units/L Magnesium Level (12/31/2022) ???Magnesium - 1.8 mg/dL Allergies (NKA means No Known Allergies) NKA Problems Active Problems??(9) Alcohol use disorder, moderate, dependence?? Alcoholism?? Essential Hypertension?? Fatty liver us 2020?? H/O herpes zoster?? Hyperlipidemia?? Impaired fasting glucose?? 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 Moderate recurrent major depression?? Education Materials Below is the list of Educational Leaflet Providered with your Discharge Instructions. Alcohol Addiction?? Diazepam Oral Tablet?? Valuables and Belongings I fully understand and agree that [facility] accepts no responsibility for [...] patient Date for Pt to Sign Valuables/Belongings: 01/01/23 14:56:00 ?? Other Discharge Information ? Pulmonary Rehab [...] are strongly encouraged to quit. Please call [facility] [employer] at [phone] or [phone] ([phone]) or log in to [email or web address] for referrals to smoking cessation programs. ?? 201 Suicide & Crisis Lifeline is available 22/12 if you or someone you know needs to find a reason to keep living. By calling 326 you'll be connected to a skilled, trained counselor at a crisis center in your area. INPATIENT DISCHARGE INSTRUCTIONS SIGNATURE PAGE JULIOCESAR COLÓN Location:[facility] Registration Date and Time:12/31/2022 16:01 EDT Primary Care Physician: Greg Ponce DO, Attending Physician: Ketty Garcia MD, I JULIOCESAR COLÓN, have received the above patient education materials/instructions and have verbalized understanding. If ambulance or transport services are being used I further acknowledge being given a choice of service. ?? If you need to contact me, please call me at this number: . Patient/Social Work Supervisor Name: Patient/Social Work Supervisor Signature: Relationship to Patient: Witness Name/Signature: Date: * Philomena Hills RN: PERFORM Event Display: Patient Education Leaflets Authored Date: [id number] Alcohol Addiction ?? 42367 Alcohol Addiction How many times in the past year have you had 5 drinks in a day (men) or 4 drinks in a day (women)? Does your drinking harm yourself or others? Or has it led to other problems with your daily life? Ifso, you may be addicted to alcohol. You may have what's called an alcohol use disorder. Your healthcare provider may make this diagnosis if you have had at least 2 of these problems in a year: ??? You drink alcohol in larger amounts orfor a longer period than you planned. ??? You often want to cut down or control how much you drink.Or you have often failed to do so. ??? You spend a lot of time getting alcohol, using it, or recovering from its use. ??? You crave or have a strong desire or urge to drink. ??? Your drinking makes it hard for you to be responsible at work, school, or home. ??? You keep on drinking even though you have had problems in relationships or social settings because of it. ??? You give up or miss importan t social, work, or other activities because of your drinking. ??? You drink alcohol at times when it's not physically safe, such as drinking then driving. ??? You keep on drinking even though you know it has caused physical or emotional problems. ??? You need more and more alcohol to get the same effects. ??? You hide how much you drink from family and friends. ??? You have withdrawal symptoms oruse alcohol to prevent such symptoms. ??? You have a drink the first thing in the morning to get rid of a hangover or calm yourself. ?? Last Reviewed Date: 2022 ?? [employer]. All rights reserved. This information is not intended as a substitute for professional medical care. Always follow your healthcare professional's instructions. ?? * Ketty Garcia MD: PERFORM Event Display: Patient Education Leaflets Authored Date: [id number] Diazepam Oral Tablet ?? [address] Diazepam Oral Tablet Brands: Valium Uses This medicine is used for the following purposes: ??? alcohol withdrawal ??? anxiety ??? movement disorder ??? muscle spasms ??? relaxation or sleep ?? Instructions This medicine may be taken with or without food. Keep the medicine at room temperature. Avoid heat and direct light. Avoid grapefruit juice while on this medicine. If you are using this medicine regularly, it is important to take each dose of medicine on time. Keep taking the medicine even if you feel well. If you forget to take a dose on time, take it as soon as you remember. If it is almost time for thenext dose, do not take the missed dose. Return to your normal schedule. Do not take 2 doses at one time. Drug interactions can change how medicines work or increase risk for side effects. Tell your healthcare providers about all medicines taken. Include prescription and [id number] medicines, vitamins, and herbal medicines. Speak with your doctor or pharmacist before starting or stopping any medicine. ?? Cautions Though it helps many people, this medicine may sometimes cause addiction, especially if it is used for a long time. This risk for addiction may be higher if you have a substance use disorder - such as overuse of or addiction to drugs or alcohol. Speak with your doctor about the benefits and risks of using this medicine. If you stop this medicine suddenly, after using it regularly for a long time, you may have withdrawal symptoms. Your doctor may ask you to slowly reduce your dose before stopping it. Tell your doctorright away if you notice any symptoms of withdrawal. Withdrawal symptoms can include headaches, restlessness, hallucinations, confusion, depression, nausea, or seizures. Tell your doctor and pharmacist if you ever had an allergic reaction to a medicine. Do not use the medication any more than instructed. If possible, avoid using with alcohol, marijuana, or other medicines that can cause dizziness or drowsiness. These include allergy/cold products, muscle relaxers, sleep aids, and pain relievers. Your ability to stay alert or to react quickly may be impaired by this medicine. Do not drive or operate machinery until you know how this medicine will affect you. Please check with your doctor before drinking alcohol while on this medicine. Call the doctor if there are any signs of confusion or unusual changes in behavior. Do not breastfeed while on this medicine. This medicine can pass through breast milk to the baby. This medicine can hurt a new baby in the womb. If you become while on this medicine, tell your doctor immediately. Your doctor may switch you to a different medicine. Do not share this medicine with anyone who has not been prescribed this medicine. Some patients have serious side effects from this medicine. Ask your pharmacist to show you the information from the Food and Drug Administration (FDA) and discuss it with you. ?? Side Effects The following is a list of some common side effects from this medicine. Please speak with your doctor about what you should do if you experience these or other side effects. ??? loss of balance ??? blurry vision ??? dizziness or drowsiness Call your doctor or get medical help right away if you notice any of these more serious side effects: ??? agitated feeling or trouble sleeping ??? decreased awareness or responsiveness ??? shallow, irregular breathing ??? confusion ??? fainting ??? hallucinations (unusual thoughts, seeing or hearing things that are not real) ??? mood changes ??? muscle weakness ??? shakiness ??? shortness of breath A few people may have an allergic reaction to this medicine. Symptoms can include difficulty breathing, skin rash, itching, swelling, or severe dizziness. If you notice any of these symptoms, seek medical help quickly. ?? Extra Please speak with your doctor, nurse, or pharmacist if you have any questions about this medicine. ?? [email or web address] IMPORTANT NOTE: This document tells you briefly how to take your medicine, but it does not tell youall there is to know about it. Your doctor or pharmacist may give you other documents about your medicine. Please talk to them if you have any questions. Always follow their advice. There is a more complete description of this medicine available in Togolese. Scan this code on your smartphone or tablet or use the web address below. You can also ask your pharmacist for a printout. If you have any questions, please ask your pharmacist. The display and use of this drug information is subject to Terms of Use. Copyright(c) 2022 [employer]. ?? The [employer]. All rights reserved. This information is not intended as a substitute for professional medical care. Always follow your healthcare professional's instructions. ?? Patient Care team information Care Team Personnel Name: Alix Vargas RN Position: [facility] RN Member Role: Primary Care Nurse Name: Nina Fulton RN Position: [facility] RN Member Role: Primary Care Nurse Name: Nataly Lima RN Position: [facility] RN Member Role: Primary Care Nurse Name: Greg Ponce DO Position: [facility] Physician - Primary Care Member Role: PCP Address: Address: [address] [place] [id number] Name: Neli Alcala RN Position: [facility] RN Member Role: Primary Care Nurse Name: Romel DA SILVA Attending Position: [facility] ED Medicine MD Name: Wild Byers Position: [facility] ED OA Member Role: Patient Care Provider Name: Marcelle Nava Position: [facility] ED OA Charge Member Role: Grain Weigher Care Team Related Persons Name: DOMENICA COLÓN Address: [address] [place] [address] Name: KENNETH BALDWIN Address: [address] [place] [address]
--- OUTSIDE RECORDS SUMMARY | 2023-02-10 09:07 | XMS_ITS | Continuity of Care Document ---
Author Name Unknown Organization [facility] Cecil lt Address [address] [place] [id number]- Care Team Providers Care Finance Effectiveness Manager Name Role Phone Greg Ponce DO Primary Care Physician [phone] [place] [facility] [place]22 - 12/20/22 [facility] [address] [place] [address]- Encounter Diagnosis Essential Hypertension(Discharge Diagnosis) - 11/20/22 Moderate recurrent major depression(Discharge Diagnosis) - 11/20/22 Alcohol use disorder, moderate, dependence(Discharge Diagnosis) - 11/20/22 JADON (generalized anxiety disorder)(Discharge Diagnosis) - 11/20/22 Attending Physician: Greg Ponce DO Allergies, Adverse [...] 04/29/04 Given 1Result Comment: BOOSTER 2Result Comment: [facility]# ON [address] [phone] 3Result Comment: [03/10/2017] [facility] [phone] 4Result Comment: [facility]: [phone] 5Result Comment: [10/10/2013] #1 6Admin Note: historical [...] distribution 5advised pre diabetic increased risk diabetes Diagnosis Diagnosis Type Effective Dates Health Status Clinical Service Informant Essential Hypertension Discharge Diagnosis 11/20/22 Moderate recurrent major depression Discharge Diagnosis 11/20/22 Alcohol use disorder, moderate, dependence Discharge Diagnosis 11/20/22 JADON (generalized anxiety disorder) Discharge Diagnosis 11/20/22 Social History Social History Type Response Smoking Status Never (less than 100 in lifetime) entered on: 07/17/21 Sex Patient Care team information Care Team Personnel Name: Alix Vargas RN Position: S RN Member Role: Primary Care Nurse Name: Nataly Lima RN Position: S RN Member Role: Primary Care Nurse Name: Greg Ponce DO Position: [facility] Physician - Primary Care Member Role: PCP Address: Address: [address] [place] [id number]- Name: Neli Alcala RN Position: [facility] RN Member Role: Primary Care Nurse Care Team Related Persons Name: DOMENICA COLÓN Address: [address] [place] [address] Name: KENNETH BALDWIN Address: [address] [place] [address]
--- OUTSIDE RECORDS SUMMARY | 2023-02-10 09:08 | XMS_ITS | Continuity of Care Document ---
Author Name Unknown Organization [facility] Address [address] [place] [address]- Care Team Providers Care Canceling And Cutting Control Clerk Name Role Phone Greg Ponce DO Primary Care Physician Encounter [facility] Date(s): 11/27/22 - 11/29/[address] [address]- Discharge Disposition: A-D/C Home Attending Physician: Cleveland Salinas MD Admitting Physician: Sunitha Cary MD Referring Physician: Greg Cullen MD Allergies, Adverse Reactions, Alerts No Known [...] 04/29/04 Given 1Result Comment: BOOSTER 2Result Comment: NDC# ON THE BOX [id number] 3Result Comment: [03/10/2017] [facility] [id number] 4Result Comment: [facility]: [id number] 5Result Comment: [10/10/2013] #1 6Admin Note: historical [...] cm, ... Start Date: 11/29/22 Status: Ordered gabapentin 300 mg oral capsule 600 mg, Capsule, By Mouth, Hold for: sedation, 11/29/22 9:00:00 EDT Start Date: 11/29/22 Stop Date: 11/29/22 Status: Completed multivitamin Multiple Vitamins oral capsule 1 capsule, [...] oldest [Reference Range]: 1 2 3 Height 172 cm (11/29/22 8:05 AM) 172 cm (11/29/22 4:12 AM) 172 cm (11/28/22 7:38 PM) Weight 88 kg (11/27/22 6:42 PM) 88.0 kg (11/27/22 6:36 PM) 86 kg (11/27/22 2:23 PM) Oxygen Saturation [94-100 %] 96 % (11/29/22 8:05 AM) 97 % (11/29/22 4:12 AM) 98 % (11/28/22 7:38 PM) Pulse Rate [55-90 bpm] 93 bpm *H* (11/29/22 8:05 AM) 85 bpm (11/29/22 4:42 AM) 85 bpm (11/29/22 4:12 AM) Body Mass Index [18.5-24.99 kg/m2] 29.75 kg/m2 *H* (11/27/22 6:42 PM) 29.75 kg/m2 *H* (11/27/22 6:36 PM) 29.07 kg/m2 *H* (11/27/22 2:23 PM) Blood Pressure [90-138/55-84 mm Hg] 157/90mm Hg *H* (11/29/22 8:05 AM) 146/90mm Hg *H* (11/29/22 4:42 AM) 146/90mm Hg *H* (11/29/22 4:12 AM) Respiratory Rate [16-30 br/min] 18 br/min (11/29/22 9:16 AM) 18 br/min (11/29/22 8:16 AM) 20 br/min (11/29/22 8:05 AM) Temperature [96.8-100.4 DegF] 98.4 DegF (11/29/22 8:05 AM) 97.7 DegF (11/29/22 4:12 AM) 97.7 DegF (11/28/22 7:38 PM) Mode of Delivery (Oxygen) Room air (11/29/22 8:05 AM) Room air (11/29/22 4:12 AM) Room air (11/28/22 7:38 PM) Blood pressure sites Arm, left (11/29/22 4:12 AM) Arm, right (11/28/22 7:38 PM) Arm, right (11/28/22 3:45 PM) Temperature Route Oral (11/29/22 8:05 AM) Oral (11/29/22 4:12 AM) Oral (11/28/22 7:38 PM) Dry Weight 88 kg (11/27/22 6:42 PM) 86 kg (11/27/22 2:23 PM) 86 kg (11/27/22 1:59 PM) Weight Obtained Via Standing scale (11/27/22 6:42 PM) Standing scale (11/27/22 6:36 PM) Social History Social History Type Response Smoking Status Never (less than 100 in lifetime) entered on: 07/17/21 Sex History and physical note * Raeann SHAFFER, Sunitha: PERFORM, MODIFY Event Display: History and Physical Hospital Authored Date: [id number] Patient: ??JULIOCESAR COLÓN ? Age:??36 Years?Sex:??Male?:??1985?? Chief Complaint/Reason for Consultation etoh withdrawal, ??2 yr matthew. ??sect [facility] recent d/c approx 1 month ago. ??5th vodka daily, blackouts, blood around home. ??broken glass, headstrike. ??wants help. ??No SI/HI ??Last drink last pm [id number] History of Present Illness 36-year-old gentleman with past medical history of EtOH use disorder, depression, hypertension presented with worsening nausea vomiting shakiness headache consistent with his prior episodes of alcohol withdrawal. ??He reports he was released from [facility] 2 to 3 weeks ago since then he has been drinking 1 handle of either work or gin daily. ??Last drink last night. ??He reported some auditory hallucinations to the ER physician. ??None to me Hypertensive in ER. ??Received phenobarbital. ??Magnesium was 1.2, ordered replacement by this author 4 g. During my encounter on the floor he is AO x4, acknowledges that he has significant alcohol problem and reports he wants to'' just stop doing this'' He also noted to have anion gap metabolic acidosis, lactate ordered, 3.4,??he received 1 bolus in the ER, another LR bolus ordered along with maintenance fluid, repeat lactate ordered for 9 PM ?? He reports feeling??achy, headache,??tired, nauseated, he did have vomiting??prior to arrival He denies any seizures in the past although??reports going??through significant withdrawals??before He has been to many??EtOH rehabs in the past??and does well for some time and relapses He has taken Vivitrol as well as Campral in the past with some benefit Review of Systems 12 point review of system was??obtained and is negative except mentioned above No fever/chest pain/cough/abdomen pain. ?? Objective Measurements?? Height: 172 cm (11/27/22) Weight: 88 kg (11/27/22) Dry Weight: 88 kg (11/27/22) Body Mass Index:??29.75 kg/m2??High (11/27/22) ? Vital Signs?? Temperature: 98.1 DegF (11/27/22 18:42:00) Temperature Route: Oral (11/27/22 18:42:00) Pulse Rate:??109 bpm??High (11/27/22 18:42:00) Respiratory Rate: 18 br/min (11/27/22 18:42:00) Systolic Blood Pressure:??162 mm Hg??High (11/27/22 18:42:00) Diastolic Blood Pressure:??93 mm Hg??High (11/27/22 18:42:00) Blood pressure sites: Arm, right (11/27/22 18:42:00) Mean Arterial Pressure: 116 mm Hg (11/27/22 18:42:00) Pulse Pressure: 69 mm Hg (11/27/22 18:42:00) Oxygen Saturation: 97 % (11/27/22 18:42:00) Mode of Delivery (Oxygen): Room air (11/27/22 18:42:00) Early Warning Score: 1 (11/27/22 19:19:35) ? Physical Exam NAD HEENT: no icterus, mucosa moist Resp: CTABL , No rales/ wheezes/ ronchi CVS: RRR,??tachycardia,??no JVD, No Gallop or murmur ABD: soft, NT, ND, NABS Extm : no edema, PP 2+ [employer]: Alert Ox 3, no focal deficits, shaky tremulous mood : Mildly anxious and cooperative Skin: No rash. Warm to touch Assessment/Plan Diagnoses 1. ??Essential Hypertension ??(I10) 2. ??Fatty liver us 2020 ??(K76.0) 3. ??Hyperlipidemia ??(E78.5) 4. ??Moderate recurrent major depression ??(F33.1) 5. ??Alcohol use disorder, moderate, dependence ??(F10.20) ?? 36-year-old gentleman with past medical history of EtOH use disorder, depression, hypertension presented with worsening nausea vomiting shakiness headache consistent with his prior episodes of alcohol withdrawal. ??He reports he was released from [facility] 2 to 3 weeks ago since then he has been drinking 1 handle of either work or gin daily. ??Last drink last night. ? Acute alcohol withdrawal Moderate to severe alcohol use disorder Last drink last night. ??Has been drinking 1 handle of work/gin for last 2 to 3 weeks. ??He was recently at??EtOH rehab??under section 35 CIWA scoring, Ativan as needed Replace magnesium Thiamine, folic acid, folic acid, pyridoxine, multivitamin Extensive counseling done??regarding??EtOH cessation He would like to??try??acamprosate again on??discharge.?? Liver enzymes slightly elevated,??probably can be candidate for naltrexone as well ?? Lactic acidosis Aggressive IV fluids, recheck, no evidence of sepsis at this time, likely related to poor perfusion,??poor p.o. intake ?? hypomagnesemia/hypokalemia Replace, recheck, likely related to vomiting and??alcoholism ?? Fatty liver Related to EtOH use,??counseled extensively ?? Hypertension Continue Norvasc ?? Anxiety and depression Continue BuSpar and bupropion He denied any??suicidal ideations to me next DVT prophylaxis??boots Full code ? Histories Allergies Allergies ?(Active and Proposed Allergies Only) NKA? (Severity: Unknown severity, Onset: Unknown) ? Past Medical History/Problem List Active Problems??(8) Alcohol use disorder, moderate, dependence Essential Hypertension Fatty liver 2020 H/O herpes zoster Hyperlipidemia Impaired fasting glucose Major depression in full remission Moderate recurrent major depression ? Past Surgical History No surgeries in the past ? Social History Alcohol Most recently has been drinking 1 handle of gin or vodka for the past 2 to 3 weeks ?? Details:??Use: Current. ??Frequency: Daily. ??Type: Beer, Liquor. Details:??Use: Current. ??Frequency: Daily. ??Type: Liquor. Details:??Use: Current. ??Frequency: Daily. ??Type: Beer, Liquor. ??Alcohol use interferes with work or home: Yes. ??Drinks more than intended: Yes. ??Others hurt by drinking: No. ??Binge drinking: Yes. ? Substance Abuse Details:??Use: Never. Details:??Use: Never. ??Other: [...] Fluoxetine (FLUoxetine 20 mg oral capsule)?40?Milligram?2?capsule?By Mouth?Daily Trazodone (traZODone 50 mg oral tablet)?50?Milligram?1?tablet?By Mouth?Daily at bedtime ? Results Recent Labs BLOOD COUNT & DIFF WBC 7.3 k/mm3 ()?? 11/27/2022 14:59 RBC 5.09 m/mm3 ()?? 11/27/2022 14:59 Hgb 14.6 Gm/dL ()?? 11/27/2022 14:59 Hct 41.7 % ()?? 11/27/2022 14:59 MCV 81.9 femtoliters ()?? 11/27/2022 14:59 MCH 28.7 pg ()?? 11/27/2022 14:59 MCHC 35.0 g/dL ()?? 11/27/2022 14:59 Platelet Count 196 k/mm3 ()?? 11/27/2022 14:59 RDW-SD 40.0 femtoliters ()?? 11/27/2022 14:59 MPV 9.7 femtoliters ()?? 11/27/2022 14:59 Nucleated RBC (Automated) 0.0 #/100 WBC'S ()?? 11/27/2022 14:59 Abs. NRBC 0.0 k/mm3 ()?? 11/27/2022 14:59 Abs. Neut 6.0 k/mm3 ()?? 11/27/2022 14:59 Abs. Lymph 0.7 k/mm3 (Low)?? 11/27/2022 14:59 Abs. [place] 0.6 k/mm3 ()?? 11/27/2022 14:59 Abs. Eo 0.0 k/mm3 ()?? 11/27/2022 14:59 Abs. Baso 0.0 k/mm3 ()?? 11/27/2022 14:59 Neut % 82.5 % (High)?? 11/27/2022 14:59 Lymph % 9.1 % (Low)?? 11/27/2022 14:59 [place] % 7.7 % ()?? 11/27/2022 14:59 Eos % 0.0 % ()?? 11/27/2022 14:59 Baso % 0.4 % ()?? 11/27/2022 14:59 Imm Gran 0.3 % ()?? 11/27/2022 14:59 Abs. Imm Gran 0.0 k/mm3 ()?? 11/27/2022 14:59 ?? CHEM GENERAL Sodium 138 mmol/L ()?? 11/27/2022 14:59 Potassium 3.3 mmol/L (Low)?? 11/27/2022 14:59 Chloride 99 mmol/L ()?? 11/27/2022 14:59 Bicarbonate Level 21 mmol/L (Low)?? 11/27/2022 14:59 Anion Gap 18 (High)?? 11/27/2022 14:59 Glucose Level 108 mg/dL (High)?? 11/27/2022 14:59 BUN 8 mg/dL ()?? 11/27/2022 14:59 Creatinine-Blood 0.7 mg/dL ()?? 11/27/2022 14:59 Estimated GFR Creatinine 122 ML/MIN/1.73 M2 ()?? 11/27/2022 14:59 Calcium 9.2 mg/dL ()?? 11/27/2022 14:59 Magnesium 1.2 mg/dL (Low)?? 11/27/2022 14:59 Protein, Total 7.5 Gm/dL ()?? 11/27/2022 14:59 Albumin 4.5 Gm/dL ()?? 11/27/2022 14:59 AG Ratio 1.5 ()?? 11/27/2022 14:59 Alkaline Phosphatase 101 units/L ()?? 11/27/2022 14:59 Lipase 24 units/L ()?? 11/27/2022 14:59 AST (SGOT) 59 units/L (High)?? 11/27/2022 14:59 ALT (SGPT) 46 units/L (High)?? 11/27/2022 14:59 Bilirubin, Total 0.5 mg/dL ()?? 11/27/2022 14:59 Lactate 3.4 mmol/L (High)?? 11/27/2022 18:51 ?? HEME OTHER Hold Blue Top SPECIMEN DISCARDED AFTER 4 HOURS. ()?? 11/27/2022 14:59 ?? MISC. CHEMISTRY Hold Green Top SPECIMEN DISCARDED AFTER 1 WEEK ()?? 11/27/2022 14:59 Hold Gel Top SPECIMEN DISCARDED AFTER 1 WEEK ()?? 11/27/2022 14:59 ?? TOXICOLOGY/TDM Ethanol, Serum or Plasma 36 mg/dL (Abnormal)?? 11/27/2022 14:59 Methadone Screen, Urine NONE DETECTED ()?? 11/27/2022 17:01 Opiate Screen, Urine NONE DETECTED ()?? 11/27/2022 17:01 Oxycodone Screen, Urine NONE DETECTED ()?? 11/27/2022 17:01 Buprenorphine, Urine Random NONE DETECTED ()?? 11/27/2022 17:01 Fentanyl Screen, Urine Result NONE DETECTED ()?? 11/27/2022 17:01 ?? URINE OTHER Est Creatinine Clearance 139.80 mL/min ()?? 11/27/2022 15:23 ?? VIROLOGY COVID-19 by RT-PCR NEGATIVE ()?? 11/27/2022 15:33 ? Abnormal Labs ?? BLOOD COUNT & DIFF ??Abs. Imm Gran ??0.0 k/mm3 () ??11/27/2022 14:59 ??Abs. Lymph ??0.7 k/mm3 (Low) ??11/27/2022 14:59 ??Abs. NRBC ??0.0 k/mm3 () ??11/27/2022 14:59 ??Imm Gran ??0.3 % () ??11/27/2022 14:59 ??Lymph % ??9.1 % (Low) ??11/27/2022 14:59 ??Neut % ??82.5 % (High) ??11/27/2022 14:59 ??Nucleated RBC (Automated) ??0.0 #/100 WBC'S () ??11/27/2022 14:59 ??RDW-SD ??40.0 femtoliters () ??11/27/2022 14:59 ? CHEM GENERAL ??AG Ratio ??1.5 () ??11/27/2022 14:59 ??ALT (SGPT) ??46 units/L (High) ??11/27/2022 14:59 ??AST (SGOT) ??59 units/L (High) ??11/27/2022 14:59 ??Anion Gap ??18 (High) ??11/27/2022 14:59 ??Bicarbonate Level ??21 mmol/L (Low) ??11/27/2022 14:59 ??Estimated GFR Creatinine ??122 ML/MIN/1.73 M2 () ??11/27/2022 14:59 ??Glucose Level ??108 mg/dL (High) ??11/27/2022 14:59 ??Lactate ??3.4 mmol/L (High) ??11/27/2022 18:51 ??Magnesium ??1.2 mg/dL (Low) ??11/27/2022 14:59 ??Potassium ??3.3 mmol/L (Low) ??11/27/2022 14:59 ? HEME OTHER ??Hold Blue Top ??SPECIMEN DISCARDED AFTER 4 HOURS. () ??11/27/2022 14:59 ? MISC. CHEMISTRY ??Hold Gel Top ??SPECIMEN DISCARDED AFTER 1 WEEK () ??11/27/2022 14:59 ??Hold Green Top ??SPECIMEN DISCARDED AFTER 1 WEEK () ??11/27/2022 14:59 ? TOXICOLOGY/TDM ??Buprenorphine, Urine Random ??NONE DETECTED () ??11/27/2022 17:01 ??Ethanol, Serum or Plasma ??36 mg/dL (Abnormal) ??11/27/2022 14:59 ??Fentanyl Screen, Urine Result ??NONE DETECTED () ??11/27/2022 17:01 ??Methadone Screen, Urine ??NONE DETECTED () ??11/27/2022 17:01 ??Opiate Screen, Urine ??NONE DETECTED () ??11/27/2022 17:01 ??Oxycodone Screen, Urine ??NONE DETECTED () ??11/27/2022 17:01 ? VIROLOGY ??COVID-19 by RT-PCR ??NEGATIVE () ??11/27/2022 15:33 ? Note: Critical results are displayed in red. ? Hospital Progress note * Nataly Lima RN: PERFORM, SIGN, VERIFY Event Display: Progress Note Hospital Authored Date: Patient: JULIOCESAR COLÓN Age: 36 years Sex: Male : 1985 Associated Diagnoses: None Author: Nataly Lima RN Findings Problem Related to Alteration in Psychosocial : Alteration in Psychosocial Function/new 11/29/2022 10:00 EDT Alteration in Psychosocial Related to Acute Alcohol Withdrawal Goals & Outcomes, Psychosocial Psychosocial support will be provided to Pt/S.O. as needed, Pt/caregiver will be offered appropriate resources & support, Pt/caregiver will maintain/obtain psychological stability, Pt/caregiver will participate in coping skill counseling Interventions, Psychosocial Assess psychosocial needs, Assess readiness to learn needed lifestyle changes, Assess/monitor level of consciousness Goals/Interventions, Psychosocial Yes Psychosocial, Problem Start 11/27/2022 18:56 Reviewed Plan with, Psychosocial Patient Patient Progression, Psychosocial Resolved problem Psychosocial, Problem Resolved 11/29/2022 10:17 . Alteration in Safety : Alteration in Safety/new 11/29/2022 10:00 EDT Alteration in Safety Related to Other: ciwa- fall risk Goals & Outcomes, Safety Pt will remain safe & injury free Interventions, Safety Provide teaching as needed Goals/Interventions, Safety Yes Safety, Problem Start 11/28/2022 17:33 Reviewed plan with, Safety Patient Patient Progression, Safety Resolved problem Safety, Problem Resolved 11/29/2022 10:17 . Nursing Data Vital Signs : VITAL SIGNS SECTION 11/29/2022 8:05 EDT Temperature 98.4 DegF Temperature Route Oral Pulse Rate 93 bpm H Respiratory Rate 20 br/min Systolic Blood Pressure 157 mm Hg H Diastolic Blood Pressure 90 mm Hg H Mean Arterial Pressure 112 mm Hg Pulse Pressure 67 mm Hg Oxygen Saturation 96 % Mode of Delivery (Oxygen) Room air . Evaluation (A&Ox4. Not scoring on CIWA. IND OOB, gait steady. VSS. Seizure precautions maintained. Plan to discharge home today. Call light within reach, safety maintained. ) * Alisia Baig RN: PERFORM, SIGN, VERIFY Event Display: Progress Note Hospital Authored Date: Patient: JULIOCESAR COLÓN Age: 36 years Sex: Male : 1985 Associated Diagnoses: None Author: Alisia Baig RN Patient is A/Ox4. Standby assistance in the room with TABS alarm on for safety due to CIWA protocol. Patient is steady on feet. On RA no SOB noted or reported. Regular diet tolerated well. Takes his pills whole. Voiding in the urinal or the BR with staff assistance. Patient anxious and sweaty upon arrival to shift a bit restless in the room stated, it is hard to not be anxious being stuck in this room all day. RN scored patient per CIWA scale at 10 with 1 mg ativan PO given. Patient respondedwell to ativan and is resting comfortably visibly less anxious. Safety maintained and call jack within reach. Plan to possible dc in the AM. Findings Problem Related to Alteration in Psychosocial : Alteration in Psychosocial Function/new 11/29/2022 1:00 EDT Alteration in Psychosocial Related to Acute Alcohol Withdrawal Goals & Outcomes, Psychosocial Psychosocial support will be provided to Pt/S.O. as needed, Pt/caregiver will be offered appropriate resources & support, Pt/caregiver will maintain/obtain psychological stability, Pt/caregiver will participate in coping skill counseling Interventions, Psychosocial Assess psychosocial needs, Assess readiness to learn needed lifestyle changes, Collaborate with provider for psychiatric consult Goals/Interventions, Psychosocial Yes Psychosocial, Problem Start 11/27/2022 18:56 Reviewed Plan with, Psychosocial Patient Patient Progression, Psychosocial Pt progressing according to plan . Alteration in Safety : Alteration in Safety/new 11/29/2022 1:00 EDT Alteration in Safety Related to Other: ciwa- fall risk Goals & Outcomes, Safety Pt will remain safe & injury free Interventions, Safety Provide info on community resources for education, support, Provide teaching as needed Goals/Interventions, Safety No Safety, Problem Start 11/28/2022 17:33 Reviewed plan with, Safety Patient Patient Progression, Safety Pt progressing according to plan . * Nataly Lima RN: VERIFY, PERFORM, SIGN Event Display: Progress Note Hospital Authored Date: [id number] Patient: JULIOCESAR COLÓN Age: 36 years Sex: Male : 1985 Associated Diagnoses: None Author: Nataly Lima RN Findings Problem Related to Alteration in Psychosocial : Alteration in Psychosocial Function/new 11/28/2022 17:00 EDT Alteration in Psychosocial Related to Acute Alcohol Withdrawal Goals & Outcomes, Psychosocial Psychosocial support will be provided to Pt/S.O. as needed, Pt/caregiver will be offered appropriate resources & support, Pt/caregiver will maintain/obtain psychological stability, Pt/caregiver will participate in coping skill counseling Interventions, Psychosocial Identify complications of chronic alcohol use, Assess for complicationsrelated to acute alcohol withdrawal, Determine pt's stage of withdrawal as per CIWA scale, Encourage pt to continue to detox, Initiate & maintain Seizure Precautions BH Goals/Interventions, Psychosocial Yes Psychosocial, Problem Start 11/27/2022 18:56 Reviewed Plan with, Psychosocial Patient Patient Progression, Psychosocial Pt progressing according to plan . Alteration in Safety : Alteration in Safety/new 11/28/2022 17:00 EDT Alteration in Safety Related to Other: ciwa- fall risk Goals & Outcomes, Safety Pt will remain safe & injury free Interventions, Safety Provide teaching as needed Goals/Interventions, Safety Yes Safety, Problem Start 11/28/2022 17:33 Reviewed plan with, Safety Patient Patient Progression, Safety Plan Initiation . Nursing Data Vital Signs : VITAL SIGNS SECTION 11/28/2022 15:45 EDT Temperature 98.6 DegF Temperature Route Oral Pulse Rate 94 bpm H Respiratory Rate 18 br/min Systolic Blood Pressure 134 mm Hg Diastolic Blood Pressure 82 mm Hg Blood pressure sites Arm, right Mean Arterial Pressure 99 mm Hg Pulse Pressure 52 mm Hg Oxygen Saturation 96 % Mode of Delivery (Oxygen) Room air . Evaluation (A&Ox4. SBA OOB, gait steady. CIWA score 1-4- does not require PRN medications. Pt tolerating regular diet- no nausea/vomiting. LR @150cc/hr. VSS. Call light within reach, plan of careand safety maintained. ) Note * Nataly Lima RN: PERFORM Event Display: Discharge/Transfer Note Hospital Authored Date: [id number] Nursing Discharge Note Entered On: 11/29/2022 12:30 EDT Performed On: 11/29/2022 12:30 EDT by Nataly Lima RN Nursing Discharge Note 2 Discharge Time : 11/29/2022 12:30 EDT Discharge Level of Care at Discharge : Home/Skilled Nursing/Foster Care Patient Left Unit Via : Ambulatory Patient Accompanied Off Unit with : Other: pt walked self down to lobby DC Instructions Provided & Signed by Pt : Yes Patient Understands D/C Instructions : Yes Patient Instructions Discharge Signed : Yes Did Pt have Specialty Bed or Wound Vac : No Nataly Lima RN - 11/29/2022 12:30 EDT * Brad SHAFFER, Ali: PERFORM Event Display: Discharge/Transfer Note Hospital Authored Date: [id number] Patient: ??JULIOCESAR COLÓN ? Age:??36 Years?Sex:??Male?:??1985?? Patient Information Discharge Location: Med Surg Primary Care Physician: Greg Ponce DO Admit Date/Time: 11/27/22 17:02 Discharge Disposition Discharge Disposition: ?? Discharge Diagnosis Essential Hypertension (I10) Fatty liver us 2020 (K76.0) Hyperlipidemia (E78.5) Moderate recurrent major depression (F33.1) Alcohol use disorder, moderate, dependence (F10.20) ?? _ Discharge Medications Amlodipine (amLODIPine 5 [...] 20 mg oral delayed release tablet)?1?tab(s)?20?Milligram?By Mouth?Daily Thiamine (thiamine 100 mg oral tablet)?100?Milligram?By Mouth?Daily?for 30?Days Trazodone (traZODone 50 mg oral tablet)?50?Milligram?1?tablet?By Mouth?Daily at bedtime ? Medications Started ?? Thiamine Folic acid Multivitamin Pantoprazole Medications Discontinued None??none Allergies Allergies ?(Active and Proposed Allergies Only) NKA? (Severity: Unknown severity, Onset: Unknown) ? PCP Follow-Up/Heads-Up ?? Suggest an outpatient??addiction medicine consult/alcohol Anonymous program. ?? Objective Assessment and Plan ?36-year-old gentleman with past medical history of EtOH use disorder, depression, hypertension presented with worsening nausea vomiting shakiness headache consistent with his prior episodes of alcohol withdrawal. ??He reports he was [facility] from [facility] 2 to 3 weeks ago since then he has been drinking 1 handle of either work or gin daily. ??Last drink last night. ? Acute alcohol withdrawal Moderate to severe alcohol use disorder Last drink last night. ??Has been drinking 1 handle of work/gin for last 2 to 3 weeks. ??He was recently at??EtOH rehab??under [place] CIWA scoring, Ativan as needed. ??Electrolytes replaced. Thiamine, folic acid, folic acid, pyridoxine, multivitamin. Extensive counseling done??regarding??EtOH cessation??on multiple occasions by multiple providers. ??Informs he has tried??acamprosate??and??disulfiram before Liver enzymes slightly elevated,??probably can be candidate for naltrexone as well. ?? Lactic acidosis Aggressive IV fluids, recheck, no evidence of sepsis at this time, likely related to poor perfusion,??poor p.o. intake??and decreased clearance of lactic acid from liver. Unlikely sepsis. ?? hypomagnesemia/hypokalemia Replace, recheck, likely related to vomiting and??alcoholism ?? Fatty liver Echocardiogram performed in July 2022 showed : IMPRESSION:? Coarse hepatic echotexture likely due to underlying hepatocellular disease. No suspicious lesion. This is felt to be related to EtOH use,??counseled extensively ?? Hypertension Continue Norvasc. Blood pressure within acceptable range. ?? Anxiety and depression Continue BuSpar and bupropion. He denied any??suicidal ideations. ?? Patient did well,??did not have any significant withdrawal. ??Was counseled against alcohol intake on multiple occasion by this provider. Discussed with case management to??supply with alcohol resources. ??Patient already in follow-up with??[place]??program??Nina Gomez. ?? Vital Signs?? Temperature: 98.4 DegF (11/29/22 08:05:00) Temperature Route: Oral (11/29/22 08:05:00) Pulse Rate:??93 bpm??High (11/29/22 08:05:00) Respiratory Rate: 18 br/min (11/29/22 09:16:00) Systolic Blood Pressure:??157 mm Hg??High (11/29/22 08:05:00) Diastolic Blood Pressure:??90 mm Hg??High (11/29/22 08:05:00) Blood pressure sites: Arm, left (11/29/22 04:12:00) Mean Arterial Pressure: 112 mm Hg (11/29/22 08:05:00) Pulse Pressure: 67 mm Hg (11/29/22 08:05:00) Oxygen Saturation: 96 % (11/29/22 08:05:00) Mode of Delivery (Oxygen): Room air (11/29/22 08:05:00) Early Warning Score: 3 (11/29/22 10:15:37) ? Consultants None Pending Results No Pending Results Patient Education Titles Alcohol abuse/withdrawal Follow-Up Appointments ?? Outpatient follow-up with[facility] addiction??program with Nina Gomez NP Patient Instructions ?? Please visit your PCP in 1 week. Please review ??your discharge paper work/ radiology test reports and ensure to ??make and follow appointments as to not miss subtle findings. Please bring your discharge summary with you to your appointments. Please take your medications regularly. Please see your regular Specialty doctors for other co-morbidities as appropriate. In case you experience severe chest pain, shortness of breath, high fevers, feel really sick or have recurrence of the problem that you had been admitted, Please call your doctors office or visit your nearest emergency department. ?? Diet: Low-salt diet Exercise: Encourage ambulaiton and exercise ?? Follow-up with primary care in 1 week. ?? Discharge Disposition?? Discharge: home. ? Discharge Condition: Good.?? Approximately 40 ??minutes spent on discharge?? Please Send Report to all consultants including PCP. Post Discharge Care Discharge ?11/29/22 11:01:00 EDT Home Health Face to Face ^HomeHealthFTF Results Discharge Labs BLOOD COUNT & DIFF WBC 4.9 k/mm3 ()?? 11/29/2022 05:32 RBC 4.63 m/mm3 (Low)?? 11/29/2022 05:32 Hgb 13.3 Gm/dL (Low)?? 11/29/2022 05:32 Hct 38.4 % (Low)?? 11/29/2022 05:32 MCV 82.9 femtoliters ()?? 11/29/2022 05:32 MCH 28.7 pg ()?? 11/29/2022 05:32 MCHC 34.6 g/dL ()?? 11/29/2022 05:32 Platelet Count 136 k/mm3 (Low)?? 11/29/2022 05:32 RDW-SD 39.9 femtoliters ()?? 11/29/2022 05:32 MPV 10.8 femtoliters ()?? 11/29/2022 05:32 Nucleated RBC (Automated) 0.0 #/100 WBC'S ()?? 11/29/2022 05:32 Abs. NRBC 0.0 k/mm3 ()?? 11/29/2022 05:32 Abs. Neut 6.0 k/mm3 ()?? 11/27/2022 14:59 Abs. Lymph 0.7 k/mm3 (Low)?? 11/27/2022 14:59 Abs. [place] 0.6 k/mm3 ()?? 11/27/2022 14:59 Abs. Eo 0.0 k/mm3 ()?? 11/27/2022 14:59 Abs. Baso 0.0 k/mm3 ()?? 11/27/2022 14:59 Neut % 82.5 % (High)?? 11/27/2022 14:59 Lymph % 9.1 % (Low)?? 11/27/2022 14:59 [place] % 7.7 % ()?? 11/27/2022 14:59 Eos % 0.0 % ()?? 11/27/2022 14:59 Baso % 0.4 % ()?? 11/27/2022 14:59 Imm Gran 0.3 % ()?? 11/27/2022 14:59 Abs. Imm Gran 0.0 k/mm3 ()?? 11/27/2022 14:59 ?? CHEM GENERAL Sodium 138 mmol/L ()?? 11/28/2022 05:34 Potassium 3.1 mmol/L (Low)?? 11/28/2022 05:34 Chloride 100 mmol/L ()?? 11/28/2022 05:34 Bicarbonate Level 26 mmol/L ()?? 11/28/2022 05:34 Anion Gap 12 ()?? 11/28/2022 05:34 Glucose Level 108 mg/dL (High)?? 11/27/2022 14:59 Beta Hydroxybutyrate <0.05 mmol/L ()?? 11/27/2022 18:58 BUN 7 mg/dL ()?? 11/28/2022 05:34 Creatinine-Blood 0.8 mg/dL ()?? 11/28/2022 05:34 Estimated GFR Creatinine 118 ML/MIN/1.73 M2 ()?? 11/28/2022 05:34 Calcium 9.2 mg/dL ()?? 11/27/2022 14:59 Phosphorus 3.3 mg/dL ()?? 11/29/2022 05:32 Magnesium 2.0 mg/dL ()?? 11/29/2022 05:32 Protein, Total 6.6 Gm/dL ()?? 11/29/2022 05:32 Albumin 4.0 Gm/dL ()?? 11/29/2022 05:32 AG Ratio 1.5 ()?? 11/27/2022 14:59 Alkaline Phosphatase 95 units/L ()?? 11/29/2022 05:32 Lipase 24 units/L ()?? 11/27/2022 14:59 AST (SGOT) 62 units/L (High)?? 11/29/2022 05:32 ALT (SGPT) 61 units/L (High)?? 11/29/2022 05:32 Bilirubin, Total 0.3 mg/dL ()?? 11/29/2022 05:32 Bilirubin, Direct 0.1 mg/dL ()?? 11/29/2022 05:32 Bilirubin, Indirect 0.2 mg/dL ()?? 11/29/2022 05:32 Lactate 2.5 mmol/L (High)?? 11/28/2022 05:34 ?? HEME OTHER Hold Lavender Top SPECIMEN DISCARDED AFTER 24 HOURS. ()?? 11/28/2022 05:34 Hold Blue Top SPECIMEN DISCARDED AFTER 4 HOURS. ()?? 11/27/2022 14:59 ?? MISC. CHEMISTRY Hold Green Top SPECIMEN DISCARDED AFTER 1 WEEK ()?? 11/27/2022 14:59 Hold Gel Top SPECIMEN DISCARDED AFTER 1 WEEK ()?? 11/27/2022 14:59 ?? TOXICOLOGY/TDM Ethanol, Serum or Plasma 36 mg/dL (Abnormal)?? 11/27/2022 14:59 Methadone Screen, Urine NONE DETECTED ()?? 11/27/2022 17:01 Opiate Screen, Urine NONE DETECTED ()?? 11/27/2022 17:01 Oxycodone Screen, Urine NONE DETECTED ()?? 11/27/2022 17:01 Buprenorphine, Urine Random NONE DETECTED ()?? 11/27/2022 17:01 Fentanyl Screen, Urine Result NONE DETECTED ()?? 11/27/2022 17:01 ?? URINE OTHER Est Creatinine Clearance 122.32 mL/min ()?? 11/28/2022 06:21 ? VIROLOGY COVID-19 by RT-PCR NEGATIVE ()?? 11/27/2022 15:33 ? 40??minutes spent on discharge * Domo BARRETO, Donna Ugalde: PERFORM, MODIFY Event Display: Patient Education/Instruction Authored Date: [id number] Inpatient Adult Discharge Instructions [address] [address] Name: JULIOCESAR COLÓN : 1985 Visit: 11/27/2022 17:02:00 Current Date: 11/29/2022 11:32 Account: [id number] Inpatient Adult Discharge Instructions We would like [...] and their families. Surveys are administered by [employer] ?? If further treatment with your primary care physician or another doctor is recommended, it is important for you to keep the appointment. Call your primary care physician or return to the Emergency Department immediately if your condition worsens, fails to improve, or new symptoms develop. If you need to find a doctor, you can call [facility] for a referral at [phone] or toll free at [phone] or log in to [email or web address].. ?? You can view and manage your care through the patient portal or by using a health care primo of your choosing. [employer] is a website that allows you to securely view your medical information including your hospital discharge summary, office visit summaries, medications and follow-up visits. You can also request appointments, renew medications, and request access to your medical information using a health care primo of your choosing, or just ask a question. You can enroll at [email or web address] or register during your next office visit. You have been discharged from [facility], Patient Care Unit: Med Surg. If you have any questions regarding these instructions after you leave, please call us and we will be happy to assist you. [facility] Your Care Team Attending Physician Cleveland Salinas MD Discharging Providers Cleveland Salinas MD Reason for Admission etoh withdrawal, ??2 yr matthew. ??sect 35 recent d/c approx 1 month ago. ??5th vodka daily, blackouts, blood around home. ??broken glass, headstrike. ??wants help. ??No SI/HI ??Last drink last pm 2358 Your Diagnosis Essential Hypertension Fatty liver us 2020 Hyperlipidemia Moderate recurrent major depression Alcohol use disorder, moderate, dependence Tests Performed Below is a partial list of the tests performed during your hospitalization. You may have had other tests and procedures not included in this list. Please discuss all test results with your provider. Albumin Level Alcohol Level Alk Phos ALT AST Beta Hydroxybutyrate Bilirubin Total Bilirubin Total + Direct BUN Buprenorphine Urine CBC CBC w/ Differential Comprehensive Metabolic Panel COVID-19 (Novel Coronavirus), Rapid PCR Creatinine Electrolytes Fentanyl Screen, Urine HOLD BLUE TUBE HOLD GEL TUBE HOLD GREEN TUBE HOLD LAVENDER TUBE Lactate Level Lactic Acid Level Lipase Magnesium Level Methadone Urine Opiate Screen Urine Oxycodone Screen Urine Phosphorus Level Total Protein Primary Care Provider Greg Ponce DO Advance Directive Health Care Proxy on File Yes - Health Care Proxy Discharge Vitals Temperature: 98.4 DegF Height: 172 cm Pulse Rate:??93 bpm??High Weight: 88 kg Respiratory Rate: 18 br/min Body Mass Index:??29.75 kg/m2??High Systolic Blood Pressure:??157 mm Hg??High Body surface area: 2.05 Diastolic Blood Pressure:??90 mm Hg??High ?? Oxygen Saturation: 96 % ?? Studies Pending All tests and labs ordered during this hospital stay have been completed unless listed below. Please discuss all pending results with your provider listed above in these instructions. ?? No incomplete studies found What to do next Instructions From Your Doctor Discharge Orders Discharge Medications COLÓN, JULIOCESAR :1985 Visit Date:11/27/2022 Medications: Please continue your medications until treatment is completed or stopped by your provider. Medications not listed below should be discontinued. Discuss any questions related to medications with your provider. What How Much When Instructions Next Dose Unchanged Amlodipine (amLODIPine 5 mg oral tablet) 1 tab(s) Oral Daily as needed for Blood Pressure Duration: 30 Days Please resume amlodipine 5mg PO daily if BP > 140/ 90. ?? as directed monitor blood pressures Unchanged BuPROpion (buPROPion 100 mg oral tablet) 100 Milligram Oral Daily in the morning tomorrow 8am Unchanged BusPIRone (busPIRone 30 mg oral tablet) 1 tab(s) Oral Twice a day tonight 9pm Unchanged Fluoxetine (FLUoxetine 20 mg oral capsule) 2 capsule Oral Daily tomorrow 8am Unchanged Folic Acid (folic acid 1 mg oral tablet) 1 Milligram Oral Daily Pickup at [facility] tomorrow 8am Unchanged Multivitamin (multivitamin Multiple Vitamins oral capsule) 1 capsule Oral Daily Pickup at [facility] tomorrow 8am Unchanged Pantoprazole (Protonix 20 mg oral delayed release tablet) 1 tab(s) Oral Daily Pickup at [facility] tomorrow 8am Unchanged Thiamine (thiamine 100 mg oral tablet) 100 Milligram Oral Daily Duration: 30 Days Pickup at [facility] tomorrow 8am Unchanged Trazodone (traZODone 50 mg oral tablet) 1 tab(s) Oral Daily at Bedtime tonight 9pm Pharmacy Information Center Pharmacy: [address] [place] [address] [phone] Test Results Below is a partial list of the most recent Laboratory test results done prior to this discharge. You may have had other tests and procedures not included in this list. Please discuss all test resultswith your provider. Est Creatinine Clearance - 122.32 mL/min (11/28/2022) Albumin Level (11/29/2022) ???Albumin - 4.0 Gm/dL Alcohol Level (11/27/2022) ???Ethanol, Serum or Plasma - 36 mg/dL Alk Phos (11/29/2022) ???Alkaline Phosphatase - 95 units/L ALT (11/29/2022) ???ALT (SGPT) - 61 units/L AST (11/29/2022) ???AST (SGOT) - 62 units/L Beta Hydroxybutyrate (11/27/2022) ? ?Beta Hydroxybutyrate - <0.05 mmol/L Bilirubin Total (11/28/2022) ???Bilirubin, Total - 0.9 mg/dL Bilirubin Total + Direct (11/29/2022) ???Bilirubin, Total - 0.3 mg/dL???Bilirubin, Direct - 0.1 mg/dL???Bilirubin, Indirect - 0.2 mg/dL BUN (11/28/2022) ???BUN - 7 mg/dL Buprenorphine Urine (11/27/2022) ???Buprenorphine, Urine Random - NONE DETECTED CBC (11/29/2022) ???WBC - 4.9 k/mm3???RBC - 4.63 m/mm3???Hgb - 13.3 Gm/dL???Hct - 38.4 %???MCV - 82.9 femtoliters???MCH - 28.7 pg???MCHC - 34.6 g/dL???Platelet Count - 136 k/mm3???RDW-SD - 39.9 femtoliters???MPV - 10.8 femtoliters???Nucleated RBC (Automated) - 0.0 #/100 WBC'S???Abs. NRBC - 0.0 k/mm3 CBC w/ Differential (11/27/2022) ???WBC - 7.3 k/mm3???RBC - 5.09 m/mm3???Hgb - 14.6 Gm/dL???Hct - 41.7 %???MCV - 81.9 femtoliters???MCH - 28.7 pg???MCHC - 35.0 g/dL???Platelet Count - 196 k/mm3???RDW-SD - 40.0 femtoliters???MPV - 9.7 femtoliters???Nucleated RBC (Automated) - 0.0 #/100 WBC'S???Abs. NRBC - 0.0 k/mm3???Abs. Neut - 6.0 k/mm3???Abs. Lymph - 0.7 k/mm3???Abs. [place] - 0.6 k/mm3???Abs. Eo - 0.0 k/mm3???Abs. Baso - 0.0 k/mm3???Neut % - 82.5 %???Lymph % - 9.1 %???[place] % - 7.7 %???Eos % - 0.0 %???Baso % - 0.4 %???Imm Gran - 0.3 %???Abs. Imm Gran - 0.0 k/mm3 Comprehensive Metabolic Panel (11/27/2022) ???Sodium - 138 mmol/L???Potassium - 3.3 mmol/L???Chloride - 99 mmol/L???Bicarbonate Level - 21 mmol/L???Anion Gap - 18???Glucose Level - 108 mg/dL???BUN - 8 mg/dL???Creatinine-Blood - 0.7 mg/dL???Estimated GFR Creatinine - 122 ML/MIN/1.73 M2???Calcium - 9.2 mg/dL???Protein, Total - 7.5 Gm/dL???Albu min - 4.5 Gm/dL???AG Ratio - 1.5???Alkaline Phosphatase - 101 units/L???AST (SGOT) - 59 units/L???ALT (SGPT) - 46 units/L???Bilirubin, Total - 0.5 mg/dL COVID-19 (Novel Coronavirus), Rapid PCR (11/27/2022) ???COVID-19 by RT-PCR - NEGATIVE Creatinine (11/28/2022) ???Creatinine-Blood - 0.8 mg/dL???Estimated GFR Creatinine - 118 ML/MIN/1.73 M2 Electrolytes (11/28/2022) ???Sodium - 138 mmol/L???Potassium - 3.1 mmol/L???Chloride - 100 mmol/L???Bicarbonate Level - 26 mmol/L???Anion Gap - 12 Fentanyl Screen, Urine (11/27/2022) ???Fentanyl Screen, Urine Result - NONE DETECTED HOLD BLUE TUBE (11/27/2022) ???Hold Blue Top - SPECIMEN DISCARDED AFTER 4 HOURS. HOLD GEL TUBE (11/27/2022) ???Hold Gel Top - SPECIMEN DISCARDED AFTER 1 WEEK HOLD GREEN TUBE (11/27/2022) ???Hold Green Top - SPECIMEN DISCARDED AFTER 1 WEEK HOLD LAVENDER TUBE (11/28/2022) ???Hold Lavender Top - SPECIMEN DISCARDED AFTER 24 HOURS. Lactate Level (11/27/2022) ???Lactate - 3.2 mmol/L Lactic Acid Level (11/28/2022) ???Lactate - 2.5 mmol/L Lipase (11/27/2022) ???Lipase - 24 units/L Magnesium Level (11/29/2022) ???Magnesium - 2.0 mg/dL Methadone Urine (11/27/2022) ???Methadone Screen, Urine - NONE DETECTED Opiate Screen Urine (11/27/2022) ???Opiate Screen, Urine - NONE DETECTED Oxycodone Screen Urine (11/27/2022) ???Oxycodone Screen, Urine - NONE DETECTED Phosphorus Level (11/29/2022) ???Phosphorus - 3.3 mg/dL Total Protein (11/29/2022) ???Protein, Total - 6.6 Gm/dL Allergies (NKA means No Known Allergies) NKA Problems Active Problems??(9) Alcohol use disorder, moderate, dependence?? Alcoholism?? Essential Hypertension?? Fatty liver us 2020?? H/O herpes zoster?? Hyperlipidemia?? Impaired fasting glucose?? 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 Moderate recurrent major depression?? Education Materials Below is the list of Educational Leaflet Providered with your Discharge Instructions. Vitamin B1 (thiamine) Oral Tablet?? Pantoprazole Delayed Release Oral Tablet?? Folic Acid Oral Tablet?? Alcohol Addiction?? Valuables and Belongings I fully understand and agree that [facility] accepts no responsibility for [...] patient Date for Pt to Sign Valuables/Belongings: 11/27/22 18:40:00 ?? Other Discharge Information ? Pulmonary Rehab [...] are strongly encouraged to quit. Please call [facility] at [phone] or [phone] or log in to [email or web address] for referrals to smoking cessation programs. ?? 467 Suicide & Crisis Lifeline is available 22/12 if you or someone you know needs to find a reason to keep living. By calling 553 you'll be connected to a skilled, trained counselor at a crisis center in your area. INPATIENT DISCHARGE INSTRUCTIONS SIGNATURE PAGE KATARZYNA JULIOCESAR Location:[facility] Registration Date and Time:11/27/2022 17:02 EDT Primary Care Physician: Greg Ponce DO, Attending Physician: Brad SHAFFER, [place], I JULIOCESAR COLÓN, have received the above patient education materials/instructions and have verbalized understanding. If ambulance or transport services are being used I further acknowledge being given a choice of service. ?? If you need to contact me, please call me at this number: . Patient/Cargo Mate Name: Patient/Cargo Mate Signature: Relationship to Patient: Witness Name/Signature: Date: * Domo BARRETO, Donna Ugalde: PERFORM Event Display: Patient Education Leaflets Authored Date: [id number] Vitamin B1 (thiamine) Oral Tablet ?? 86925-423 Vitamin B1 (thiamine) Oral Tablet Uses For vitamin replacement. ?? Instructions This medicine may be taken with or without food. Store at room temperature away from heat, light, and moisture. Do not keep in the bathroom. Tell your doctor and pharmacist about all your medicines. Include prescription and zctk-tka-gonmzlpgtbfudbdu, vitamins, and herbal medicines. Speak with your doctor or pharmacist before starting any other vitamins. ?? Cautions Tell your doctor and pharmacist if you ever had an allergic reaction to a medicine. Do not use the medication any more than instructed. ?? Side Effects This medicine usually has no side effects. A few people may have an allergic reaction to this medicine. Symptoms can include difficulty breathing, skin rash, itching, swelling, or severe dizziness. If you notice any of these symptoms, seek medical help quickly. ?? Extra Please speak with your doctor, nurse, or pharmacist if you have any questions about this medicine. ?? [email or web address] IMPORTANT NOTE: This document tells you briefly how to take your medicine, but it does not tell youall there is to know about it. Your doctor or pharmacist may give you other documents about your medicine. Please talk to them if you have any questions. Always follow their advice. There is a more complete description of this medicine available in [place]. Scan this code on your smartphone or tablet or use the web address below. You can also ask your pharmacist for a printout. If you have any questions, please ask your pharmacist. The display and use of this drug information is subject to Terms of Use. Copyright(c) 2022 [employer]. ?? [employer]. All rights reserved. This information is not intended as a substitute for professional medical care. Always follow your healthcare professional's instructions. ?? * Domo BARRETO, Donna Ugalde: PERFORM Event Display: Patient Education Leaflets Authored Date: [id number] Pantoprazole Delayed Release Oral Tablet ?? [id number] Pantoprazole Delayed Release Oral Tablet Brands: Protonix Uses This medicine is used for the following purposes: ??? indigestion ??? inflammation of stomach ??? inflammation of the esophagus ??? stomach acid ??? stomach acid reflux ??? ulcers in stomach or intestines ??? ulcers in stomach or intestines ?? Instructions Swallow the medicine without crushing or chewing it. This medicine may be taken with or without food. Store at room temperature away from heat, light, and moisture. Do not keep in the bathroom. This medicine can reduce the absorption of other medicines. Talk to your doctor or pharmacist aboutthe best times to use this product. If you forget to take a dose [...] about all medicines taken. Include prescription and tguc-kaw-xoyvnym medicines, vitamins, and herbal medicines. Speak with your doctor or pharmacist before starting or stopping any medicine. Tell your doctor if symptoms do not get better or if they get worse. This medicine may affect the strength of your bones. If you have or are at increased risk for osteoporosis (weakening of the bones), your doctor may recommend foods with calcium and vitamin D. ?? Cautions Tell your doctor and pharmacist if you ever had an allergic reaction to a medicine. Do not use the medication any more than instructed. Please tell your doctor if you have moderate to severe diarrhea while on this medicine. Do not treat the diarrhea with inzb-vpd-htrwkwk diarrhea medicine. This medicine passes into breast milk. Ask your doctor before . During , this medicine should be used only when clearly needed. Talk to your doctor about the risks and benefits. Do not share this medicine with anyone [...] experience these or other side effects. ??? diarrhea ??? headaches Call your doctor or get medical help right away if you notice any of these more serious side effects: ??? severe or persistent abdominal pain ??? severe, watery or bloody diarrhea ??? fever ??? numbness or tingling in hands and feet ??? fast or irregular heart beats ??? pain in the joints ??? signs of kidney damage (such as change in urine color or bubbly urine) ??? muscle aches, spasms or abnormalmovements ??? butterfly-shaped rash on nose and cheeks ??? seizures ??? blood in stool ??? unusual or unexplained tiredness or weakness A few people may have an allergic reaction to this medicine. Symptoms can include difficulty breathing, skin rash, itching, swelling, or severe dizziness. If you notice any of these symptoms, seek medical help quickly. ?? Extra Please speak with your doctor, nurse, or pharmacist if you have any questions about this medicine. ?? [email or web address] IMPORTANT NOTE: This document tells you briefly how to take your medicine, but it does not tell youall there is to know about it. Your doctor or pharmacist may give you other documents about your medicine. Please talk to them if you have any questions. Always follow their advice. There is a more complete description of this medicine available in [place]. Scan this code on your smartphone or tablet or use the web address below. You can also ask your pharmacist for a printout. If you have any questions, please ask your pharmacist. The display and use of this drug information is subject to Terms of Use. Copyright(c) 2022 [employer]. ?? [employer]. All rights reserved. This information is not intended as a substitute for professional medical care. Always follow your healthcare professional's instructions. ?? * Domo BARRETO, Donna Ugalde: PERFORM Event Display: Patient Education Leaflets Authored Date: [id number] Folic Acid Oral Tablet ?? [id number] Folic Acid Oral Tablet Brands: Folacin Uses This medicine is used for the following purposes: ? vitamin deficiency ?? Instructions This medicine may be taken with or without food. Keep the medicine at room temperature. Avoid heat and direct light. It is important that you keep taking each dose of this medicine on time even if you are feeling well. If you forget to take a dose on time, take it as soon as you remember. If it is almost time for thenext dose, do not take the missed dose. Return to your normal schedule. Do not take 2 doses at one time. Tell your doctor and pharmacist about all your medicines. Include prescription and heuj-nkl-esrofhvpurraiybf, vitamins, and herbal medicines. Speak with your doctor or pharmacist before starting any other vitamins. ?? Cautions Do not start or stop any other medicines without first speaking to your doctor or pharmacist. Do not share this medicine with anyone who has not been prescribed this medicine. ?? Side Effects This medicine usually has no side effects. A few people may have an allergic reaction to this medicine. Symptoms can include difficulty breathing, skin rash, itching, swelling, or severe dizziness. If you notice any of these symptoms, seek medical help quickly. ?? Extra Please speak with your doctor, nurse, or pharmacist if you have any questions about this medicine. ?? [email or web address] IMPORTANT NOTE: This document tells you briefly how to take your medicine, but it does not tell youall there is to know about it. Your doctor or pharmacist may give you other documents about your medicine. Please talk to them if you have any questions. Always follow their advice. There is a more complete description of this medicine available in [place]. Scan this code on your smartphone or tablet or use the web address below. You can also ask your pharmacist for a printout. If you have any questions, please ask your pharmacist. The display and use of this drug information is subject to Terms of Use. Copyright(c) 2022 [employer]. ?? [employer]. All rights reserved. This information is not intended as a substitute for professional medical care. Always follow your healthcare professional's instructions. ?? Patient Care team information Care Team Personnel Name: Alisia Baig RN Position: [facility] RN Member Role: Primary Care Nurse Name: Alix Vargas RN Position: [facility] RN Member Role: Primary Care Nurse Name: Nataly Lima RN Position: [facility] RN Member Role: Primary Care Nurse Name: Greg Ponce DO Position: [facility] Physician - Primary Care Member Role: PCP Address: Address: [address] [place] [phone]- Name: Neli Alcala RN Position: [facility] RN Member Role: Primary Care Nurse Name: Eduardo Loaiza RN Position: [facility] ED RN W/OE and Tasks Member Role: Patient Care Provider Name: Valarie Mcintosh Position: [facility] ED TA [facility] Member Role: Patient Care Provider Name: Greg Cullen MD Position: [facility] ED Medicine MD Member Role: Referring Physician Address: Address: [address] [place] [id number]- Care Team Related Persons Name: DOMENICA COLÓN Address: [address] [place] [address] Name: KENNETH BALDWIN Address: [address] [place] [address]
--- NOTE | 2023-02-10 09:53 | PC.NURSE ---
pt a&o x4, initially thought it was thursday but now knows it's thursday. pt's father called 911 on pt for being intoxicated. pt initially arrived covered in dried blood from nosebleed overnight. pt slightly agitated due to situation and having to come to the ED. pt changed over to hospital attire. denies SI/HI. placed on bedside monitor. tachy. asking for food and something drink. provided with sandwich and deysi amie. pt resting quietly at this time, rr even/unlabored. waiting to be seen by provider.
--- NOTE | 2023-02-10 10:34 | ED.ALCOHOL ---
HPI - Alcohol General Chief Complaint: ETOH/Substance Use Stated Complaint: ETOH USE,CRISIS PER EMS Time Seen by Provider: 02/10/23 09:49 Source: patient and old records reviewed Mode of arrival: EMS History of Present Illness HPI narrative: 37 yo male with hx of ETOH abuse and HTN on amlodipine here after drinking all weekend and woke up with bloody nose that resolved. He denies trauma. He is not on thinners. He states his Dad sent him in but the patient is refusing detox and rehab. He has no SI. MD complaint: alcohol intoxication Last drink: Just prior to admission Chronic alcohol use: Yes Previous visits for alcohol intoxication: Yes Recent trauma: No Associated symptoms: other (resolved bilateral epistaxis) Treatments prior to arrival: none Related Data Home Medications Medication Instructions Recorded Confirmed amlodipine 5 mg tablet 1 tab PO DAILY 06/29/22 09/27/22 omeprazole 20 mg capsule,delayed 1 cap PO DAILY 06/29/22 09/27/22 release bupropion HCl 100 mg tablet,12 hr 100 mg PO BID 09/27/22 09/27/22 sustained-release buspirone 30 mg tablet 30 mg PO BID 09/27/22 09/27/22 fluoxetine 40 mg capsule 40 mg PO DAILY 09/27/22 09/27/22 lorazepam 1 mg tablet 1 mg PO TID PRN anxiety 09/27/22 09/27/22 trazodone 50 mg tablet 50 mg PO BEDTIME 09/27/22 09/27/22 Previous Rx's Medication Instructions Recorded folic acid 1 mg tablet 1 mg PO DAILY #30 tabs 07/10/22 melatonin 3 mg tablet 6 mg (2 x 3 mg) PO BEDTIME PRN 07/10/22 Insomnia #30 tabs thiamine HCl (vitamin B1) 100 mg 100 mg PO DAILY #30 tabs 07/10/22 tablet Allergies Allergy/AdvReac Type Severity Reaction Status Date / Time No Known Allergies Allergy Unknown UNKNOWN Verified 09/19/21 10:42 [NO KNOWN ALLERGIES] Review of Systems Review of Systems: Constitutional : No Fever, No Chills ENT/Mouth : No Ear Pain, No Nasal Congestion, No sore throat, pos epistaxis Eyes: No Eye Pain, No Swelling, No Redness Cardiovascular : No Chest Pain, No SOB Respiratory : No Cough, No Sputum, No Dyspnea Gastrointestinal : No Nausea, No Vomiting, No Diarrhea, No Hematochezia, No Melena Genitourinary : No Dysuria, No Urinary Frequency, No Hematuria Musculoskeletal : No Myalgias Skin : No Skin Lesions, No rash Neuro : No Weakness, No Numbness, No Paresthesias, No Dizziness, No Headache Psych : no Anxiety, no Depression, no SI/HI Heme/Lymph: No Lymphadenopathy Endocrine : No Polyuria, No Polydipsia All other systems reviewed and are negative [facility] Past Medical History Attestation statement: The following information was validated with the patient. Source: old records reviewed Medical History Alcohol use disorder, severe, dependence Hypertension Anxiety and depression Psychiatric disturbance Family History Family History Other Lung cancer Social History Social History Household Members: Family Housing: House Do you presently have visiting nurse or other home services: No Alcohol intake: current Alcohol intake frequency: 3 or more drinks per day Alcohol type: hard liquor Patient Tobacco Use Status: Never used Tobacco Smoked in Last 30 Days: No e-Cigarette/Vaping Use: Never Used Second Hand Smoke Exposure: No Use of substances other than those prescribed or required for medical reasons: No Substance Use Type: Marijuana Advance Directives: Yes Advance Directives on File: Yes Advance Directives Date on File: 01/08/21 service: No Current occupational status: unemployed Sexual orientation: Straight/Heterosexual Physical Exam ED Vital Signs: Vital Signs - 24 hr 02/10/23 08:46 02/10/23 09:05 02/10/23 10:43 Temperature 98.7 F 98.9 F Pulse Rate 120 H 116 H 119 H Respiratory Rate 20 16 18 Blood Pressure 137/95 H 152/86 H Pulse Oximetry 96 97 Oxygen Delivery Method Room Air Room Air BMI result Body Mass Index 24.1 Appearance: Alert. Oriented X3. No acute distress. anxious ETOH odor Eyes: Pupils equal, round and reactive to light. ENT: Pharynx normal. dried blood in both nares, no septal hematoma, slight deformity to nose but no swelling or contusion appears old Neck: Normal inspection. Neck supple. CVS: tachycardic heart rate and rhythm. Pulses normal. Respiratory: No respiratory distress. Breath sounds normal. Abdomen: Soft and non-tender. Skin: Skin warm and dry. Normal skin color. Normal skin turgor. Extremities: No lower extremity edema. Neuro: Oriented X 3. No motor deficit. No sensory deficit. Course Course Course Narrative: signed out to GLENYS Leggett pending further workup Medical Decision Making Medical Decision Making [facility] Narrative: 37 yo male with PMH of ETOH abuse here with c/o drinking a lot honestly I'm drunk I don't know my dad called. He notes he does not want rehab or detox. He denies withdrawal seizures. He admits he woke up with a bloody nose but denies trauma. He will need IVF< magnesium, thiamine and IV ativan. I have ordered CT head and facial bones just in case of trauma. Differential Diagnosis Differential Diagnoses: The differential diagnosis associated with the presentation includes ETOH abuse, possible facial trauma Admission/Observation Consideration of admission/observation: Escalation of care including admission/observation considered observe until clinically sober does not want detox or rehab Lab Data [facility] Lab Attestation statement: I reviewed the patient's lab results. 02/10/23 10:34 02/10/23 10:52 Labs: Lab Results 02/10/23 02/10/23 Range/Units 10:34 10:52 WBC 4.0 L (4.8-10.8) X10*3/uL RBC 4.83 (4.60-5.80) X10*6/uL Hgb 14.3 (14.0-18.0) g/dl Hct 41.4 L (42.0-52.0) % MCV 85.7 (80.0-98.0) fL MCH 29.6 (27.0-33.0) pg MCHC 34.5 (31.0-36.0) g/dl RDW 13.8 (11.0-16.0) % Plt Count 408 H D (160-400) X10*3/uL MPV 8.6 L (9.4-12.4) fL Immature Gran % (Auto) 0.2 (0.0-0.4) % Neut % (Auto) 52.7 (45-73) % Lymph % (Auto) 34.2 (20-40) % [place] % (Auto) 10.7 (2-11) % Eos % (Auto) 0.2 (0-4) % Baso % (Auto) 2.0 (0-2) % Lymph # (Auto) 1.4 (1.2-4.9) X10*3/uL [place] # (Auto) 0.4 (0.1-1.2) X10*3/uL Eos # (Auto) 0.0 (0.0-0.4) X10*3/uL Baso # (Auto) 0.1 (0.0-0.2) X10*3/uL Abs Immat Gran (auto) 0.01 (0.00-0.03) X10*3/uL Absolute Neuts (auto) 2.1 (2.0-8.3) x10*3/uL Absolute Nucleated RBC 0.000 (0.0-0.012) X10*3/uL Nucleated RBC % (auto) 0.0 (0.0-0.2) /100WBC Sodium 138 (135-145) mmol/L Potassium 4.0 (3.3-5.1) mmol/L Chloride 97 (96-108) mmol/L Carbon Dioxide 26 (22-29) mmol/L Anion Gap 19 (12-20) BUN 14 (9-16) mg/dL Creatinine 1.05 (0.5-1.4) mg/dL Estim Creat Clear Calc 93.1 Estimated GFR > 60 Random Glucose 199 H (60-115) mg/dL Calcium 9.5 D (8.4-10.2) mg/dL Magnesium 2.3 (1.6-2.6) mg/dL Total Bilirubin 0.2 (0.0-1.0) mg/dL Direct Bilirubin < 0.2 (0.0-0.5) mg/dL AST 112 H (5-37) U/L ALT 273 H (0-40) U/L Alkaline Phosphatase 70 (39-117) U/L Total Protein 8.1 H (6.5-8.0) g/dL Albumin 4.7 (3.5-5.0) g/dL Independent Interpretation I performed an independent interpretation of an: CT Scan Radiology Impression Discussion of test interpretation with radiology: I have reviewed the radiologist's reading. External Record Review External record reviewed: Inpatient record Medications Administered Discontinued Medications Generic Name Dose Route Start Last Admin Trade Name Freq PRN Reason Stop Dose Admin Sodium Chloride 1,000 mls @ 999 mls/hr 02/10/23 10:15 02/10/23 11:32 Ns IVCONT 02/10/23 11:15 999 mls/hr .Q1H1M VANESSA Administration Magnesium Sulfate 2 gm in 50 mls @ 25 mls/hr 02/10/23 10:12 02/10/23 11:35 Magnesium Sulfate/H2o IV 02/10/23 12:11 25 mls/hr ONCE ONE Administration Lorazepam 1 mg 02/10/23 10:14 02/10/23 11:35 Lorazepam 2 Mg/Ml Vial IVPUSH 02/10/23 10:15 1 mg STAT STA Administration Discharge Plan Discharge Clinical Impression: Alcohol abuse, Epistaxis Patient Disposition: Still a Patient Instructions: Abuse of Alcohol (ED), Nosebleed (ED) Additional Instructions: please consider stop drinking ETOH. you have recurrent episodes of this in the past. consider detox. return for confusion, tremors, vomiting, seizures or any other concerns. take your medications don't blow your nose at 48 hours. Prescriptions: No Action amlodipine 5 mg tablet 1 tab PO DAILY omeprazole 20 mg capsule,delayed release(DR/EC) 1 cap PO DAILY melatonin 3 mg Tablet 6 mg PO BEDTIME PRN (Reason: Insomnia) Qty: 30 0RF thiamine HCl (vitamin B1) 100 mg tablet 100 mg PO DAILY Qty: 30 0RF folic acid 1 mg tablet 1 mg PO DAILY Qty: 30 0RF fluoxetine 40 mg capsule 40 mg PO DAILY trazodone 50 mg tablet 50 mg PO BEDTIME bupropion HCl 100 mg tablet sustained-release 12 hr 100 mg PO BID buspirone 30 mg tablet 30 mg PO BID lorazepam 1 mg tablet 1 mg PO TID PRN (Reason: anxiety)
[2023-02-10 10:41] LABS: MANUAL DIFF FLAG NO
[2023-02-10 10:43] LABS: Basophils Absolute Auto 0.1 X10*3/uL (0.0-0.2); Eosinophils Percent Auto 0.2 % (0-4); Hematocrit 41.4 % (42.0-52.0); Hemoglobin 14.3 g/dl (14.0-18.0); Imm Gran Abs Auto 0.01 X10*3/uL (0.00-0.03); Imm Gran Pct Auto 0.2 % (0.0-0.4); Lymphocytes Absolute Auto 1.4 X10*3/uL (1.2-4.9); Lymphocytes Percent Auto 34.2 % (20-40); Mean Corpuscular HGB Conc 34.5 g/dl (31.0-36.0); Mean Corpuscular Hemoglobin 29.6 pg (27.0-33.0); Mean Corpuscular Volume 85.7 fL (80.0-98.0); Mean Platelet Volume 8.6 fL (9.4-12.4); Monocytes Absolute Auto 0.4 X10*3/uL (0.1-1.2); Monocytes Percent Auto 10.7 % (2-11); Neutrophils Absolute Auto 2.1 x10*3/uL (2.0-8.3); Neutrophils Percent Auto 52.7 % (45-73); Platelet Count 408 X10*3/uL (160-400); Red Blood Count 4.83 X10*6/uL (4.60-5.80); Red Cell Distribution Width 13.8 % (11.0-16.0)
[2023-02-10 11:11] LABS: Alanine Aminotransferase 273 U/L (0-40); Albumin Level 4.7 g/dL (3.5-5.0); Alkaline Phosphatase 70 U/L (39-117); Anion Gap 19 (12-20); Aspartate Amino Transferase 112 U/L (5-37); Bilirubin Direct < 0.2 mg/dL (0.0-0.5); Bilirubin Total 0.2 mg/dL (0.0-1.0); Blood Urea Nitrogen 14 mg/dL (9-16); Calcium 9.5 mg/dL (8.4-10.2); Carbon Dioxide 26 mmol/L (22-29); Chloride 97 mmol/L (96-108); Creatinine Clr Calc Pharmacy 93.1; Estimated Glomerular Filt Rate > 60; Glucose Random 199 mg/dL (60-115); Magnesium 2.3 mg/dL (1.6-2.6); Sodium 138 mmol/L (135-145); Total Protein 8.1 g/dL (6.5-8.0)
[2023-02-10] MEDS: 0.9 % Sodium Chloride 1,000 ML 999 ML IVCONT (11:32)
[2023-02-10] MEDS: LORazepam 2 MG/ML VIAL 1 MG IVPUSH (11:35)
[2023-02-10] MEDS: Magnesium Sulfate/H2O 2 GM/50 ML PIGGYBACK IV (11:35)
--- NOTE | 2023-02-10 11:49 | PC.NURSE ---
assumed care of pt at 1100, pt to CT, CIWA = 13, 1L NS started, medicated per JUL. pt reporting increased anxiety, nausea, restlessness.
[2023-02-10] MEDS: LORazepam 2 MG/ML VIAL IVPUSH (13:07)
--- NOTE | 2023-02-10 13:14 | PC.NURSE ---
CIWA = 20, provider aware, medicated per MAR, pt reeducated on importance of keeping arm straight to get medications.
[2023-02-10] MEDS: Thiamine HCL 200 MG in 0.9 % Sodium Chloride 100 ML 204 MG IV (14:05)
--- NOTE | 2023-02-10 14:50 | PHA.MEDREC ---
Pharmacy Consult ? Medication Reconciliation Pharmacy has completed the medication reconciliation. Patient reported medications. Crystal Moran, RowanD
[2023-02-10] MEDS: PHENobarbitaL sodium 130 MG/ML IM ONCE 410.8 MG IM (15:11)
--- NOTE | 2023-02-10 15:55 | PM.IMHP ---
History of Present Illness Date of Service: 02/10/23 Attending physician on admission: [facility] Chief Complaint: etoh dependence, epistaxis 37-year-old male with history of hypertension, GERD, alcohol dependence, and major depressive disorder presents to the ED earlier today for evaluation alcohol abuse and epistaxis. He states that he has a history of recurrent epistaxis as does his father and grandfather. Denies any known history of bleeding disorders in his family. States symptoms worsen in the wintertime. He is not on any blood thinners. He states he typically drinks between 3-4 alcoholic beverages a day but alcohol use significantly worsens when depression worsens. He states he has had increased depression since the loss of his job several weeks ago and has been drinking up to 1 handle of vodka all in a day despite taking acamprosate. He does desire detox. He denies any history of alcohol withdrawal seizure. He denies any SI/HI. He denies any trauma however does state that he does black out. His last alcoholic beverage was this morning just prior to police arrival to his house. On arrival, patient tachycardic to 132 with mild hypertension of 149/86. Vitals otherwise stable. Hematology studies unremarkable. Renal function normal, electrolyte levels normal. Glucose 199. AST 112, ALT 273, bilirubin normal. Head CT negative for any acute intracranial hemorrhage or other acute intracranial pathology. There is a very small fracture of the anterior nasal spine of the maxilla noted. In the ED given 2 doses lorazepam, however CIWA remained 20. Started on phenobarb per protocol. Alos given 2g IV mag, and IV thiamine. Review of Systems Review of Systems: General: No fevers, malaise, unintentional weight loss HEENT: No blurred vision, diplopia. No sore throat, nasal congestion, rhinorrhea, sinus pain, ear pain. +nose bleed Cardiovascular: No chest pain, palpitations, or leg edema Respiratory: No shortness of breath, wheezing, cough GI: +nausea. No abdominal pain, omiting, diarrhea, constipation, melena, hematochezia : No dysuria, hematuria, increased urinary frequency, decreased urinary output MSK: No myalgia, back pain Neuro: No headaches, weakness, paresthesias. +tremors. Skin: No rashes or lesions [facility] Medical History (Updated 02/10/23 @ 16:10 by GLENYS Kilgore) Alcohol withdrawal syndrome Alcohol use disorder, severe, dependence Hypertension Anxiety and depression Psychiatric disturbance Family History Other Lung cancer Social History Household Members: Family Housing: House Do you presently have visiting nurse or other home services: No Alcohol intake: current Alcohol intake frequency: 3 or more drinks per day Alcohol type: hard liquor Patient Tobacco Use Status: Never used Tobacco Smoked in Last 30 Days: No e-Cigarette/Vaping Use: Never Used Second Hand Smoke Exposure: No Use of substances other than those prescribed or required for medical reasons: No Substance Use Type: Marijuana Advance Directives: Yes Advance Directives on File: Yes Advance Directives Date on File: 01/08/21 service: No Current occupational status: unemployed Sexual orientation: Straight/Heterosexual Meds Allergies Allergy/AdvReac Type Severity Reaction Status Date / Time No Known Allergies Allergy Unknown UNKNOWN Verified 09/19/21 10:42 [NO KNOWN ALLERGIES] Active Medications: Current Medications Acetaminophen (Acetaminophen 325 Mg Tablet) 650 mg PO Q6H PRN PRN Reason: Pain, Mild (Pain Scale 1-3) Docusate Sodium (Docusate Sodium 100 Mg Capsule) 100 mg PO DAILY PRN PRN Reason: Constipation Folic Acid (Folic Acid 1 Mg Tablet) 1 mg PO DAILY VANESSA Thiamine HCl 100 mg/ Sodium (Chloride) 101 mls @ 202 mls/hr IV BID VANESSA Ondansetron HCl (Ondansetron Hcl 4 Mg/2 Ml Vial) 4 mg IVPUSH Q8H PRN PRN Reason: Nausea and Vomiting Pharmacy Consult (Consult Rx Etoh Phenob Im/Po) 1 each MISCELLANE ONCE PRN; Protocol PRN Reason: Consult order Phenobarbital (Phenobarbital 15 Mg Tablet) 45 mg PO BID VANESSA; Protocol Stop: 02/12/23 21:01 Phenobarbital (Phenobarbital 15 Mg Tablet) 15 mg PO BID VANESSA; Protocol Stop: 02/14/23 21:01 Phenobarbital (Phenobarbital 15 Mg Tablet) 15 mg PO DAILY VANESSA; Protocol Stop: 02/16/23 09:01 Phenobarbital Sodium (Phenobarbital Sodium 130 Mg/Ml Vial Im Q3hx2) 308.1 mg IM Q3H VANESSA; Protocol Stop: 02/10/23 21:01 Sodium Chloride (0.9 % Sodium Chloride Flush 3 Ml Syringe) 3 ml IVFLUSH QSHIFT [facility] Sodium Chloride (Sodium Chloride 0.65 % Nasal 44 Ml Sprbtl) 1 spray NOSTRIL-B Q1H PRN PRN Reason: dry mucosa, epistaxis Home Medications Medication Instructions Recorded Confirmed Last Taken Type bupropion HCl 100 mg tablet,12 hr 100 mg PO BID@0900,1200 09/27/22 02/10/23 Unknown History sustained-release buspirone 30 mg tablet 30 mg PO BID 09/27/22 02/10/23 Unknown History fluoxetine 40 mg capsule 40 mg PO DAILY 09/27/22 02/10/23 Unknown History trazodone 50 mg tablet 50 mg PO BEDTIME 09/27/22 02/10/23 Unknown History acamprosate 333 mg tablet,delayed 666 mg PO TID 02/10/23 02/10/23 Unknown History release melatonin 10 mg tablet 10 mg PO BEDTIME 02/10/23 02/10/23 Unknown History multivitamin-iron 9 mg-folic acid 1 tab PO DAILY 02/10/23 02/10/23 Unknown History 400 mcg-calcium and minerals tablet (Therems-M) pantoprazole 20 mg tablet,delayed 20 mg PO DAILY 02/10/23 02/10/23 Unknown History release Physical Exam Vital Signs and Narrative: Vital Signs: Last Vital Signs Temp 98.0 F 02/10/23 14:20 Pulse 115 H 02/10/23 14:20 Resp 20 02/10/23 14:20 BP 137/86 02/10/23 14:20 Pulse Ox 95 02/10/23 14:20 O2 Del Method Room Air 02/10/23 14:20 BMI result Body Mass Index 24.1 Constitutional - Awake and Alert, No apparent distress Eyes - PERRLA, EOMI Nose - small amount moist blood/scabbing at Kesselbach's plexus right nare Cardiovascular - S1S2, RRR, No edema Respiratory - Normal lung expansion, Normal respiratory effort, No respiratory distress, CTA bilaterally Gastrointestinal - NT / ND; +BS; No rebound or guarding Extremities - no calf tenderness bilaterally, no swelling Skin - Warm/Dry Neurological - Alert & oriented x3, tremulous Psychological - Appropriate affect Results Labs 02/10/23 10:34 02/10/23 10:52 Labs: Laboratory Results - last 24 hr 02/10/23 02/10/23 10:34 10:52 MCV 85.7 MCH 29.6 MCHC 34.5 RDW 13.8 Plt Count 408 H D MPV 8.6 L Immature Gran % (Auto) 0.2 Neut % (Auto) 52.7 Lymph % (Auto) 34.2 [place] % (Auto) 10.7 Eos % (Auto) 0.2 Baso % (Auto) 2.0 Lymph # (Auto) 1.4 [place] # (Auto) 0.4 Eos # (Auto) 0.0 Baso # (Auto) 0.1 Abs Immat Gran (auto) 0.01 Absolute Neuts (auto) 2.1 Absolute Nucleated RBC 0.000 Nucleated RBC % (auto) 0.0 Anion Gap 19 Estim Creat Clear Calc 93.1 Estimated GFR > 60 Random Glucose 199 H Calcium 9.5 D Magnesium 2.3 Total Bilirubin 0.2 Direct Bilirubin < 0.2 AST 112 H ALT 273 H Alkaline Phosphatase 70 Total Protein 8.1 H Albumin 4.7 Imaging Radiologist's Impressions: Impressions Face CT 02/10/23 11:43 IMPRESSION: * No intracranial hemorrhage or other acute intracranial pathology. * A very small fracture of the anterior nasal spine of the maxilla is noted. Head CT 02/10/23 11:43 IMPRESSION: * No intracranial hemorrhage or other acute intracranial pathology. * A very small fracture of the anterior nasal spine of the maxilla is noted. Assessment and Plan (1) Epistaxis: Status: Acute (2) Fracture of maxilla: Status: Acute (3) Recurrent major depression-severe: Status: Acute (4) Elevated LFTs: Status: Acute (5) Alcohol withdrawal syndrome: Qualifiers: Complication of substance-induced condition: uncomplicated Qualified Code(s): F10.230 - Alcohol dependence with withdrawal, uncomplicated Status: Acute Plan 37-year-old male with history of hypertension, GERD, alcohol dependence, and major depressive disorder admitted for etoh withdrawal # acute alcohol withdrawal -in the ED, CIWA 20 after 2 mg IV lorazepam x2 -continue phenobarbital per protocol -monitor on CIWA -IV thiamine x3 days, then p.o. -folic acid daily -addiction medicine consult -reports worsening alcohol use secondary to depression. 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 -outpt follow up with ENT -Saline nasal spray #Fracture nasal spine maxilla -no displacement -no intervention needed #Elevated LFTs -due to etoh abuse -follow liver function #MDD -worsening follow loss of job -No SI/HI, AH/VH -Continue home meds -psychiatry consult # GERD -continue PPI # hypertension -previously on amlodipine but discontinued by PCP -monitor blood pressures DVT prophylaxis- SCPs and early ambulation Full code Patient requires inpatient stay at least 2 midnights for management of acute alcohol withdrawal inpatient at risk for severe withdrawal on phenobarbital per protocol Time Spent With Patient Time: Total time managing care of this patient today ____ minutes. Quality Stroke Does the patient have a stroke diagnosis?: No VTE Prior VTE?: No VTE Risk Level:: Medical - moderate - high VTE Device Contraindication: N/A - Device Ordered VTE Drug Contraindication: Treatment Not Indicated
[2023-02-10] MEDS: PHENobarbitaL sodium 130 MG/ML VIAL IM Q3Hx2 308.1 MG IM ×2 (18:14→21:20)
[2023-02-10] MEDS: 0.9 % Sodium Chloride Flush 3 ML SYRINGE IVFLUSH (18:15)
--- NOTE | 2023-02-10 20:23 | MHC.RECOVSUP ---
? Reason for consult:ETOH o? Current location:467? o? Identified substance use concern:? -? Support ?? Intervention: o? Community resources provided o? Harm reduction discussion ? Plan:Admitted ? Additional information:RC met with this pt to discuss treatment options for aftercare, and recovery coaching/ outpatient services. SHIKHA provided this pt with recovery resources.
[2023-02-10] MEDS: traZODone HCL 50 MG TABLET PO (21:19)
[2023-02-10] MEDS: busPIRone HCl 10 MG TABLET 30 MG PO (21:19)
[2023-02-10] MEDS: Acamprosate Calcium 333 MG TABLET.DR 666 MG PO (21:19)
[2023-02-10] MEDS: Melatonin 3 MG TABLET 9 MG PO (21:20)
[2023-02-10] MEDS: Thiamine HCL 100 MG in 0.9 % Sodium Chloride 100 ML 202 MG IV (21:30)
[2023-02-11] MEDS: 0.9 % Sodium Chloride Flush 3 ML SYRINGE IVFLUSH ×4 (02:12→21:04)
[2023-02-11 03:32] VITALS: BP 121/70; PULSE 57; RESP 16; TEMP 36.7; O2SAT 99
[2023-02-11] MEDS: Omeprazole 20 MG CAPSULE.DR PO (06:31)
[2023-02-11 07:13] VITALS: BP 126/75; PULSE 65; RESP 20; TEMP 37.1; O2SAT 98
--- NOTE | 2023-02-11 07:41 | P.PNIM_ITS ---
Subjective Subjective Date of Service: 02/11/23 Interval History: f/u on alcohl withdrawal interval history: feels better Physical Exam 2 Vital Signs: Vital Signs: Last Vital Signs Temp 98.8 F 02/11/23 07:13 Pulse 65 02/11/23 07:13 Resp 20 02/11/23 07:13 BP 126/75 02/11/23 07:13 Pulse Ox 98 02/11/23 07:13 O2 Del Method Room Air 02/11/23 07:13 BMI result Body Mass Index 25.8 General: AO X 3, no acute distress Resp: CTA bilateral CVS: S1,S2,RRR GI: +BS, NT, no distention Skin: No rash Neuro: motor grossly intact Psych: appropriate affect Objective Data Active Medications Acamprosate (Acamprosate Calcium 333 Mg Tablet.) 666 mg PO TID ON LICENSE OF [facility] Last Admin: 02/10/23 21:19 Dose: 666 mg Documented By: JAVON Acetaminophen (Acetaminophen 325 Mg Tablet) 650 mg PO Q6H PRN PRN Reason: Pain, Mild (Pain Scale 1-3) Bupropion HCl (Bupropion Hcl Xl 150 Mg Tab.Er.24h) 150 mg PO BID@0900,1200 ON LICENSE OF [facility] Buspirone HCl (Buspirone Hcl 10 Mg Tablet) 30 mg PO BID ON LICENSE OF [facility] Last Admin: 02/10/23 21:19 Dose: 30 mg Documented By: JAVON Docusate Sodium (Docusate Sodium 100 Mg Capsule) 100 mg PO DAILY PRN PRN Reason: Constipation Fluoxetine HCl (Fluoxetine Hcl 20 Mg Capsule) 40 mg PO DAILY ON LICENSE OF [facility] Folic Acid (Folic Acid 1 Mg Tablet) 1 mg PO DAILY ON LICENSE OF [facility] Thiamine HCl 100 mg/ Sodium (Chloride) 101 mls @ 202 mls/hr IV BID ON LICENSE OF [facility] Last Infusion: 02/10/23 22:00 Dose: Infused Documented By: JAVON Melatonin (Melatonin 3 Mg Tablet) 9 mg PO BEDTIME ON LICENSE OF [facility] Last Admin: 02/10/23 21:20 Dose: 9 mg Documented By: JAVON Multivitamins/Vitamin C (Multivitamin Tablet) 1 tab PO DAILY ON LICENSE OF [facility] Omeprazole (Omeprazole 20 Mg Capsule.) 20 mg PO DAILY@0630 ON LICENSE OF [facility] Last Admin: 02/11/23 06:31 Dose: 20 mg Documented By: JAVON Ondansetron HCl (Ondansetron Hcl 4 Mg/2 Ml Vial) 4 mg IVPUSH Q8H PRN PRN Reason: Nausea and Vomiting Pharmacy Consult (Consult Rx Etoh Phenob Im/Po) 1 each MISCELLANE ONCE PRN; Protocol PRN Reason: Consult order Phenobarbital (Phenobarbital 15 Mg Tablet) 45 mg PO BID ON LICENSE OF [facility]; Protocol Stop: 02/12/23 21:01 Phenobarbital (Phenobarbital 15 Mg Tablet) 15 mg PO BID ON LICENSE OF [facility]; Protocol Stop: 02/14/23 21:01 Phenobarbital (Phenobarbital 15 Mg Tablet) 15 mg PO DAILY ON LICENSE OF [facility]; Protocol Stop: 02/16/23 09:01 Sodium Chloride (0.9 % Sodium Chloride Flush 3 Ml Syringe) 3 ml IVFLUSH QSHIFT ON LICENSE OF [facility] Last Admin: 02/11/23 02:12 Dose: 3 ml Documented By: JAVON Sodium Chloride (Sodium Chloride 0.65 % Nasal 44 Ml Sprbtl) 1 spray NOSTRIL-B Q1H PRN PRN Reason: dry mucosa, epistaxis Trazodone HCl (Trazodone Hcl 50 Mg Tablet) 50 mg PO BEDTIME ON LICENSE OF [facility] Last Admin: 02/10/23 21:19 Dose: 50 mg Documented By: JAVON Labs 02/11/23 08:34 02/11/23 08:34 Labs: Laboratory Results - last 24 hr 02/10/23 02/10/23 10:34 10:52 MCV 85.7 MCH 29.6 MCHC 34.5 RDW 13.8 Plt Count 408 H D MPV 8.6 L Immature Gran % (Auto) 0.2 Neut % (Auto) 52.7 Lymph % (Auto) 34.2 Gem % (Auto) 10.7 Eos % (Auto) 0.2 Baso % (Auto) 2.0 Lymph # (Auto) 1.4 Gem # (Auto) 0.4 Eos # (Auto) 0.0 Baso # (Auto) 0.1 Abs Immat Gran (auto) 0.01 Absolute Neuts (auto) 2.1 Absolute Nucleated RBC 0.000 Nucleated RBC % (auto) 0.0 Anion Gap 19 Estim Creat Clear Calc 93.1 Estimated GFR > 60 Random Glucose 199 H Calcium 9.5 D Magnesium 2.3 Total Bilirubin 0.2 Direct Bilirubin < 0.2 AST 112 H ALT 273 H Alkaline Phosphatase 70 Total Protein 8.1 H Albumin 4.7 Assessment and Plan (1) Alcohol withdrawal syndrome: Status: Acute Plan 37-year-old male with history of hypertension, GERD, alcohol dependence, and major depressive disorder admitted for etoh withdrawal # acute alcohol withdrawal -continue phenobarb, folate, thiamin, addiction med consult, dangers of alcohol and cessation discussed # epistaxis, -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 Quality Stroke Does the patient have a stroke diagnosis?: No VTE Prior VTE?: No VTE Risk Level:: Medical - moderate - high VTE Device Contraindication: N/A - Device Ordered VTE Drug Contraindication: Treatment Not Indicated
[2023-02-11 08:48] LABS: Basophils Percent Auto 0.9 % (0-2); Eosinophils Percent Auto 0.9 % (0-4); Hematocrit 34.2 % (42.0-52.0); Hemoglobin 12.1 g/dl (14.0-18.0); Imm Gran Abs Auto 0.02 X10*3/uL (0.00-0.03); Imm Gran Pct Auto 0.5 % (0.0-0.4); Lymphocytes Absolute Auto 1.3 X10*3/uL (1.2-4.9); Lymphocytes Percent Auto 30.4 % (20-40); MANUAL DIFF FLAG SCAN; Mean Corpuscular HGB Conc 35.4 g/dl (31.0-36.0); Mean Corpuscular Hemoglobin 30.3 pg (27.0-33.0); Mean Corpuscular Volume 85.7 fL (80.0-98.0); Mean Platelet Volume 9.1 fL (9.4-12.4); Monocytes Absolute Auto 1.4 X10*3/uL (0.1-1.2); Monocytes Percent Auto 31.3 % (2-11); Neutrophils Absolute Auto 1.6 x10*3/uL (2.0-8.3); Platelet Count 323 X10*3/uL (160-400); Red Blood Count 3.99 X10*6/uL (4.60-5.80); Red Cell Distribution Width 13.8 % (11.0-16.0); SCAN SMEAR FLAG 1; White Blood Count 4.3 X10*3/uL (4.8-10.8)
[2023-02-11] MEDS: PHENobarbitaL 15 MG TABLET 45 MG PO ×2 (08:58→20:53)
[2023-02-11] MEDS: Multivitamin TABLET 1 TAB PO (08:59)
[2023-02-11] MEDS: buPROPion HCl XL 150 MG TAB.ER.24H PO ×2 (08:59→12:28)
[2023-02-11] MEDS: Folic Acid 1 MG TABLET PO (08:59)
[2023-02-11] MEDS: FLUoxetine HCl 20 MG CAPSULE 40 MG PO (08:59)
[2023-02-11 09:03] LABS: Alanine Aminotransferase 179 U/L (0-40); Albumin Level 4.1 g/dL (3.5-5.0); Alkaline Phosphatase 54 U/L (39-117); Anion Gap 14 (12-20); Aspartate Amino Transferase 79 U/L (5-37); Bilirubin Direct 0.2 mg/dL (0.0-0.5); Bilirubin Total 0.5 mg/dL (0.0-1.0); Blood Urea Nitrogen 10 mg/dL (9-16); Calcium 9.5 mg/dL (8.4-10.2); Carbon Dioxide 27 mmol/L (22-29); Chloride 98 mmol/L (96-108); Creatinine Clr Calc Pharmacy 117.8; Estimated Glomerular Filt Rate > 60; Glucose Random 105 mg/dL (60-115); Potassium 3.3 mmol/L (3.3-5.1); Sodium 136 mmol/L (135-145); Total Protein 6.8 g/dL (6.5-8.0)
[2023-02-11] MEDS: Acamprosate Calcium 333 MG TABLET.DR 666 MG PO ×3 (09:09→20:52)
[2023-02-11] MEDS: busPIRone HCl 10 MG TABLET 30 MG PO ×2 (09:09→20:54)
[2023-02-11] MEDS: Thiamine HCL 100 MG in 0.9 % Sodium Chloride 100 ML IV (09:11)
[2023-02-11 09:16] LABS: SLIDE REVIEW VERIFIED
--- NOTE | 2023-02-11 09:46 | MHC.CM.PN ---
Pt admitted with ETOH withdrawal. Pt lives alone at home, is independent/self-care, states he recently lost his job. Pt states he has done the PHP in the past and is interested in working with someone to help him recover from his ETOH addiction. Pt states he is interested in finding a therapist but [facility] weren't able to see him for 6 months. [facility] ([facility] info) given to pt. HCP on file and verified. D/C plan: return home with outpatient services for recovery. Pt will need a lyft for transport home. PCP: Pt states he has an upcoming initial appointment with Dr. Greg Ponce at [facility]
[2023-02-11 11:10] VITALS: BP 122/71; PULSE 71; RESP 20; TEMP 37.7; O2SAT 97
[2023-02-11 15:34] VITALS: BP 136/70; PULSE 78; RESP 14; TEMP 36.1; O2SAT 98
--- NOTE | 2023-02-11 17:24 | MHC.RECOVSUP ---
Met with pt in 467 to review recovery resources. Pt informs he is not interested in any in patient programs at this time but is looking to start therapy and work with a defensive line coach. Pt has no other questions or concerns at this time.
--- NOTE | 2023-02-11 17:48 | PM.EVENT ---
Event Note Date of Service: 02/11/23 Event Note: Addiction consult placed for patient Patient seen by recovery technician support association. Referrals to be placed for therapy and recovery coaching as requested by patient. No follow-up indicated at this time. Time Spent With Patient Time: Total time managing care of this patient today ____ minutes.
[2023-02-11 19:49] VITALS: BP 134/77; PULSE 88; RESP 14; TEMP 36.8; O2SAT 98
[2023-02-11] MEDS: traZODone HCL 50 MG TABLET PO (20:55)
[2023-02-11] MEDS: Melatonin 3 MG TABLET 9 MG PO (20:55)
[2023-02-11] MEDS: Thiamine HCL 100 MG in 0.9 % Sodium Chloride 100 ML 202 MG IV (20:58)
[2023-02-12] VITALS: BP 111/67; PULSE 63; RESP 15; TEMP 36.3; O2SAT 97
[2023-02-12 04:00] VITALS: BP 108/61; PULSE 53; RESP 15; TEMP 36.1; O2SAT 98
[2023-02-12] MEDS: Omeprazole 20 MG CAPSULE.DR PO (06:13)
[2023-02-12 07:16] VITALS: BP 121/72; PULSE 61; RESP 18; TEMP 36.4; O2SAT 96
--- NOTE | 2023-02-12 07:30 | P.DS_ITS ---
DS: Providers Provider Date of Service: 02/12/23 Date of admission: 02/10/23 15:49 Primary care physician: Unknown Physician Consults: 02/10/23 15:54 Consult to Psychiatry Routine Consulting Provider: Psych Covering Reason for consultation: depression --> severe alcohol abuse 02/10/23 16:05 Addiction Medicine Routine Consulting Provider: Addiction Covering Reason for consultation: etoh dependence DS: Diagnosis Discharge Diagnosis (1) Alcohol withdrawal syndrome: Status: Acute DS: Summary Hospital Course Hospital Course: Chief Complaint: etoh dependence, epistaxis 37-year-old male with history of hypertension, GERD, alcohol dependence, and major depressive disorder presents to the ED earlier today for evaluation alcohol abuse and epistaxis. He states that he has a history of recurrent epistaxis as does his father and grandfather. Denies any known history of bleeding disorders in his family. States symptoms worsen in the wintertime. He is not on any blood thinners. He states he typically drinks between 3-4 alcoholic beverages a day but alcohol use significantly worsens when depression worsens. He states he has had increased depression since the loss of his job several weeks ago and has been drinking up to 1 handle of vodka all in a day despite taking acamprosate. He does desire detox. He denies any history of alcohol withdrawal seizure. He denies any SI/HI. He denies any trauma however does state that he does black out. His last alcoholic beverage was this morning just prior to police arrival to his house. On arrival, patient tachycardic to 132 with mild hypertension of 149/86. Vitals otherwise stable. Hematology studies unremarkable. Renal function normal, electrolyte levels normal. Glucose 199. AST 112, ALT 273, bilirubin normal. Head CT negative for any acute intracranial hemorrhage or other acute intracranial pathology. There is a very small fracture of the anterior nasal spine of the maxilla noted. In the ED given 2 doses lorazepam, however CIWA remained 20. Started on phenobarb per protocol. Alos given 2g IV mag, and IV thiamine. Hospital course: He presented to the ED with nose bleed which is not unusual for him and ongoing heavy alcohol use and was admitted for concern of alcohol withdrawal because of high CIWA. Bleeding nose stopped without need for packing or other intervention, CBC did drop from previously hematocrit of 41 to 34 but no further bleeding, his bleeding is likely Kesselback's plaexus and likely familiar as well, we recommend outpatient ENT follow up. As for alcohol withdrawal, he was treated with Phenobarbital and presently without sings of withdrawal. He has been evaluated by addiction team recovery team with referrals placed for therapy and recovery coaching. I have personally advised him on dangers of alcohol and need for cessation Time Spent with Patient Time attestation: Total time managing care of this patient today ____ minutes. Discharge coordination time: Greater than 30 minutes Quality: Safe Use of Opioids Does Pt have an Active Cancer Diagnosis on the Problem List?: No Quality: Stroke Does the patient have a stroke diagnosis?: No Physical Exam Vital Signs: Vital Signs: Last Vital Signs Temp 97.5 F 02/12/23 07:16 Pulse 61 02/12/23 07:16 Resp 18 02/12/23 07:16 BP 121/72 02/12/23 07:16 Pulse Ox 96 02/12/23 07:16 O2 Del Method Room Air 02/12/23 07:16 BMI result Body Mass Index 25.8 DS: Data Data Completed and Pending Completed studies during hospitalization [Text1]: Procedures Detoxification Services for Substance Abuse Treatment (09/28/22) Labs on day of discharge: Laboratory Results - last 24 hr 02/11/23 08:34 WBC 4.3 L RBC 3.99 L Hgb 12.1 L Hct 34.2 L MCV 85.7 MCH 30.3 MCHC 35.4 RDW 13.8 Plt Count 323 MPV 9.1 L Immature Gran % (Auto) 0.5 H Neut % (Auto) 36.0 L Lymph % (Auto) 30.4 [place] % (Auto) 31.3 H Eos % (Auto) 0.9 Baso % (Auto) 0.9 Lymph # (Auto) 1.3 [place] # (Auto) 1.4 H Eos # (Auto) 0.0 Baso # (Auto) 0.0 Abs Immat Gran (auto) 0.02 Absolute Neuts (auto) 1.6 L Absolute Nucleated RBC 0.000 Nucleated RBC % (auto) 0.0 Smear Tech's Comments VERIFIED Sodium 136 Potassium 3.3 Chloride 98 Carbon Dioxide 27 Anion Gap 14 BUN 10 Creatinine 0.83 Estim Creat Clear Calc 117.8 Estimated GFR > 60 Random Glucose 105 Calcium 9.5 Total Bilirubin 0.5 Direct Bilirubin 0.2 AST 79 H ALT 179 H Alkaline Phosphatase 54 Total Protein 6.8 Albumin 4.1 Discharge Plan Discharge Anticipated Discharge Date/Time: 02/12/23 07:31 Patient Disposition: Home, Self-Care Discharge Diagnosis: Alcohol dependence and alcohol withdrawal Referrals: Physician,Unknown J [Primary Care Provider] - 1 Week Discharge Medications: Continued thiamine HCl (vitamin B1) 100 mg tablet 100 mg PO DAILY Qty: 30 0RF folic acid 1 mg tablet 1 mg PO DAILY Qty: 30 0RF fluoxetine 40 mg capsule 40 mg PO DAILY trazodone 50 mg tablet 50 mg PO BEDTIME bupropion HCl 100 mg tablet sustained-release 12 hr 100 mg PO BID@0900,1200 buspirone 30 mg tablet 30 mg PO BID pantoprazole 20 mg tablet,delayed release (DR/EC) 20 mg PO DAILY acamprosate 333 mg tablet,delayed release (DR/EC) 666 mg PO TID Therems-M 9 mg iron-400 mcg tablet 1 tab PO DAILY melatonin 10 mg Tablet 10 mg PO BEDTIME Diet: Advance to usual diet Activity on Discharge: As tolerated Stand Alone Forms: Patient Portal Discharge page Activity Restrictions/Additional Instructions: CT/CT head/brain wo IV con IMPRESSION: * No intracranial hemorrhage or other acute intracranial pathology. * A very small fracture of the anterior nasal spine of the maxilla is noted. Care Plan Goals: Abstinence from alcohol cessation of nose bleed Health Concerns: alcohol use desorder nose bleed Plan of Treatment: please consider stop drinking ETOH. you have recurrent episodes of this in the past. consider detox. return for confusion, tremors, vomiting, seizures or any other concerns. take your medications don't blow your nose at 48 hours. Follow up with ENT doctor, you can have your doctor make referral for you or call [facility] [phone] Assessment: as above Patient Instructions: Nosebleed (ED), Abuse of Alcohol (ED)
[2023-02-12] MEDS: buPROPion HCl XL 150 MG TAB.ER.24H PO (08:23)
[2023-02-12] MEDS: busPIRone HCl 10 MG TABLET 30 MG PO (08:23)
[2023-02-12] MEDS: PHENobarbitaL 15 MG TABLET 45 MG PO (08:23)
[2023-02-12] MEDS: FLUoxetine HCl 20 MG CAPSULE 40 MG PO (08:24)
[2023-02-12] MEDS: Acamprosate Calcium 333 MG TABLET.DR 666 MG PO (08:24)
[2023-02-12] MEDS: Folic Acid 1 MG TABLET PO (08:24)
[2023-02-12] MEDS: Multivitamin TABLET 1 TAB PO (08:24)
[2023-02-12] MEDS: 0.9 % Sodium Chloride Flush 3 ML SYRINGE IVFLUSH (08:26)
[2023-02-12] MEDS: Thiamine HCL 100 MG in 0.9 % Sodium Chloride 100 ML 202 MG IV (08:26)
--- NOTE | 2023-02-12 10:55 | MHC.CM.PN ---
Patient has been medically cleared for dc to home today, self care
--- NOTE | 2023-02-12 11:17 | MHC.CM.PN ---
CM has arranged a 1:30 Lyft ride for transportation to home. MD & RN are aware.
== END 2023-02-12 13:19 | disposition home or self-care (01) | DRG 775 ==
LOC: HO.ED 12:31 → HO.EDOVER 16:01 → HO.IMC 17:49
PROVIDERS: Admitting Provider Physician Assistant; Emergency Provider Emergency Medicine; PCP Family Medicine; Visit Provider Internal Medicine
DX: F10.239 Alcohol dependence with withdrawal, unspecified (principal); F32.9 Major depressive disorder, single episode, unspecified; R04.0 Epistaxis; I10 Essential (primary) hypertension; S02.2XXA Fracture of nasal bones, initial encounter for closed fracture; X58.XXXA Exposure to other specified factors, initial encounter; K21.9 Gastro-esophageal reflux disease without esophagitis; Z79.899 Other long term (current) drug therapy
CPT/HCPCS: 36415; 70450; 70486; 80048; 80076; 83735; 85025; 99285; J2060; J2560; J3411; J3475

== ENCOUNTER → 2023-02-10 15:49 | Outpatient (BNV) | payer MEDICAID, SELFPAY | PROVIDERS: Admitting Provider Physician Assistant; Emergency Provider Emergency Medicine; Visit Provider Physician Assistant | DX: F10.230 Alcohol dependence with withdrawal, uncomplicated (principal) | CPT/HCPCS: 99223; 99232; 99239 ==

== ENCOUNTER 2023-02-19 10:25 | Emergency (ER) | payer OTHER, SELFPAY ==
--- NOTE | 2023-02-19 10:27 | ECG_ITS ---
Test Reason : ETOH Blood Pressure : / mmHG Vent. Rate : 103 BPM Atrial Rate : 103 BPM P-R Int : 142 ms QRS Dur : 080 ms QT Int : 340 ms P-R-T Axes : 013 -01 005 degrees QTc Int : 445 ms Sinus tachycardia Otherwise normal ECG When compared with ECG of 26-SEP-2022 22:31, No significant change was found Referred By: Muriel North Electronically Signed By:ADRIENNE HUBER
[2023-02-19 10:31] VITALS: BP 147/101; PULSE 110; RESP 18; O2SAT 98
--- NOTE | 2023-02-19 10:31 | ED_ITS ---
HPI - General Adult General Chief complaint: ETOH/Substance Use Stated complaint: ETOH Time Seen by Provider: 02/19/23 10:27 Source: patient and EMS Mode of arrival: EMS Limitations: other (alcohol intoxication ) History of Present Illness HPI narrative: This is a 37-year-old male history of alcohol abuse, hypertension on amlodipine, depression, presenting to the emergency department status post heavy drinking X 7 days, patient reports he drinks a L of vodka daily, last drink was prior to his arrival this am. He states he feels shaky and wanted to come in for evaluation his family was also concern. No suicidal or homicidal ideation. No hallucinations. Denies fevers, chills, nausea, vomiting, abdominal pain, numbness, tingling, chest pain and shortness of breath Related Data Home Medications Medication Instructions Recorded Confirmed bupropion HCl 100 mg tablet,12 hr 100 mg PO BID@0900,1200 09/27/22 02/10/23 sustained-release buspirone 30 mg tablet 30 mg PO BID 09/27/22 02/10/23 fluoxetine 40 mg capsule 40 mg PO DAILY 09/27/22 02/10/23 trazodone 50 mg tablet 50 mg PO BEDTIME 09/27/22 02/10/23 acamprosate 333 mg tablet,delayed 666 mg PO TID 02/10/23 02/10/23 release melatonin 10 mg tablet 10 mg PO BEDTIME 02/10/23 02/10/23 multivitamin-iron 9 mg-folic acid 1 tab PO DAILY 02/10/23 02/10/23 400 mcg-calcium and minerals tablet (Therems-M) pantoprazole 20 mg tablet,delayed 20 mg PO DAILY 02/10/23 02/10/23 release Previous Rx's Medication Instructions Recorded folic acid 1 mg tablet 1 mg PO DAILY #30 tabs 07/10/22 thiamine HCl (vitamin B1) 100 mg 100 mg PO DAILY #30 tabs 07/10/22 tablet Allergies Allergy/AdvReac Type Severity Reaction Status Date / Time No Known Allergies Allergy Unknown UNKNOWN Verified 09/19/21 10:42 [NO KNOWN ALLERGIES] Review of Systems 2 Review of Systems: Constitutional : No Weight loss, No Fever, No Chills, No Fatigue, No Malaise ENT/Mouth : No sore throat, No Rhinorrhea Eyes: No Eye Pain, No Swelling, No Redness Cardiovascular : No Chest Pain, No SOB, No Dyspnea on Exertion, No Orthopnea, No Edema, No Palpitations Respiratory : No Cough, No Sputum, No Wheezing Gastrointestinal : No Nausea, No Vomiting, No Diarrhea, No Constipation, No abdominal Pain, No Hematochezia, No Melena Genitourinary : No Dysuria, No Urinary Frequency, No Hematuria, Musculoskeletal : No joint pain, No Myalgias, No Joint Swelling Skin : No Skin Lesions, No rash Neuro : No Weakness, No Numbness, No Dizziness, No Headache Psych : No Anxiety/Panic, No Depression All other systems reviewed and are negative Yes all other systems are reviewed and are negative [facility] Past Medical History Attestation statement: The following information was validated with the patient. Source: old records reviewed and nursing notes reviewed Medical History (Updated 02/19/23 @ 14:56 by GLENYS Sheppard) Alcohol withdrawal syndrome Alcohol use disorder, severe, dependence Hypertension Anxiety and depression Psychiatric disturbance Family History Family History Other Lung cancer Social History Social History Household Members: None Housing: House Do you presently have visiting nurse or other home services: No Alcohol intake: current Alcohol intake frequency: 3 or more drinks per day Alcohol type: hard liquor Patient Tobacco Use Status: Never used Tobacco Smoked in Last 30 Days: No e-Cigarette/Vaping Use: Never Used Second Hand Smoke Exposure: No Use of substances other than those prescribed or required for medical reasons: No Substance Use Type: Marijuana Advance Directives: Yes Advance Directives on File: Yes Advance Directives Date on File: 01/08/21 service: No Current occupational status: unemployed Sexual orientation: Straight/Heterosexual Physical Exam ED Vital Signs: Vital Signs - 24 hr 02/19/23 10:31 02/19/23 10:35 Temperature 98.9 F Pulse Rate 110 H 112 H Respiratory Rate 18 22 H Blood Pressure 147/101 H 147/101 H Pulse Oximetry 98 98 Oxygen Delivery Method Room Air Room Air BMI result Body Mass Index 24.3 vss Appearance: Alert.? Oriented X3.? No acute distress.?Smells like alcohol Head: Normocephalic, atraumatic, no step-offs or deformities Eyes: Pupils equal, round and reactive to light.? ENT: Pharynx normal.? Neck: Normal inspection.? Neck supple.? CVS: Normal heart rate and rhythm.? Pulses normal.? Respiratory: No respiratory distress.? Breath sounds normal.? Abdomen: Soft and nontender.? Skin: Skin warm and dry.? Normal skin color.? Normal skin turgor.? Extremities: No lower extremity edema.? No calf ttp. 5/5 strength to bilateral upper and lower extremities Neuro: Oriented X 3.? No motor deficit.? No sensory deficit. CN 2-12 intact Course Reevaluation(s) Reevaluation #1: CIWA of 18 put in by nursing i do not agree w/ i suspect this number was influenced by anxiety rather than acute alchol w/ drawl. CIWA 8. CBC appears to be around patient's baseline no acute finding. Chemistry with slightly elevated anion gap likely secondary to ethanol. Unlikely from infection. Transaminases elevated likely secondary to chronic alcohol abuse. Ethanol level 195, patient positive for barbiturates, benzodiazepines negative salicylates, acetaminophen. UA and urine toxicology pending. Time: 13:00 Reevaluation #2: I personally did vital signs on this patient, heart rate 100, blood pressure 142/94, patient feeling better. States slightly nauseous will give Zofran at this time. Patient was evaluated by recovery who will try to find him a bed. Not appear to be actively withdrawing at this time. Time: 14:51 Reevaluation #3: Would like a detox bed, I did speak to recovery who is actively working on trying to place patient in a detox bed. Patient is currently requiring IV Ativan for anxiety,/withdrawal symptoms, will keep patient till tomorrow morning to see if bed becomes available and patient can figure out insurance issues prior to going to detox. At this time patient to be placed in observation to allow more time for detox bed search likely tomorrow. At time observation was started no acute signs of alcohol withdrawal. Vital signs stable. Will continue to monitor Time: 14:53 Medications Administered Discontinued Medications Generic Name Dose Route Start Last Admin Trade Name Freq PRN Reason Stop Dose Admin Lorazepam 1 mg 02/19/23 10:27 02/19/23 10:42 Lorazepam 1 Mg Tablet PO 02/19/23 10:28 1 mg ONCE ONE Administration Lorazepam 2 mg 02/19/23 11:09 02/19/23 11:12 Lorazepam 2 Mg/Ml Vial IVPUSH 02/19/23 11:10 2 mg ONCE ONE Administration Lorazepam 2 mg 02/19/23 14:35 02/19/23 14:56 Lorazepam 2 Mg/Ml Vial IVPUSH 02/19/23 14:36 2 mg ONCE ONE Administration Medical Decision Making Medical Decision Making [facility] Narrative: 1032 37-year-old male presents with complaints of alcohol intoxication, shakiness, last drink prior to arrival. Physical exam benign however patient smells like alcohol. This is likely acute alcohol intoxication. I do not suspect alcohol withdrawal at this time. Likely anxiety superimposed. Unlikely metabolic derangements however will rule out. No suicidal or homicidal ideation. Plan at this time labs, chief engineer drilling and recovery Differential Diagnosis Differential Diagnoses: The differential diagnosis associated with the presentation includes This is likely acute alcohol intoxication. I do not suspect alcohol withdrawal at this time. Likely anxiety superimposed. Unlikely metabolic derangements however will rule out. No suicidal or homicidal ideation. Admission/Observation Consideration of admission/observation: Escalation of care including admission/observation considered unlikely Lab Data 02/19/23 10:57 02/19/23 10:57 Labs: Lab Results 02/19/23 02/19/23 Range/Units 10:57 11:15 WBC 4.2 L (4.8-10.8) X10*3/uL RBC 4.37 L (4.60-5.80) X10*6/uL Hgb 12.9 L (14.0-18.0) g/dl Hct 37.0 L (42.0-52.0) % MCV 84.7 (80.0-98.0) fL MCH 29.5 (27.0-33.0) pg MCHC 34.9 (31.0-36.0) g/dl RDW 14.5 (11.0-16.0) % Plt Count 229 D (160-400) X10*3/uL MPV 9.2 L (9.4-12.4) fL Immature Gran % (Auto) 0.2 (0.0-0.4) % Neut % (Auto) 64.8 (45-73) % Lymph % (Auto) 19.2 L (20-40) % [place] % (Auto) 14.4 H (2-11) % Eos % (Auto) 0.2 (0-4) % Baso % (Auto) 1.2 (0-2) % Lymph # (Auto) 0.8 L (1.2-4.9) X10*3/uL [place] # (Auto) 0.6 (0.1-1.2) X10*3/uL Eos # (Auto) 0.0 (0.0-0.4) X10*3/uL Baso # (Auto) 0.1 (0.0-0.2) X10*3/uL Abs Immat Gran (auto) 0.01 (0.00-0.03) X10*3/uL Absolute Neuts (auto) 2.7 (2.0-8.3) x10*3/uL Absolute Nucleated RBC 0.000 (0.0-0.012) X10*3/uL Nucleated RBC % (auto) 0.0 (0.0-0.2) /100WBC Sodium 137 (135-145) mmol/L Potassium 3.5 (3.3-5.1) mmol/L Chloride 94 L (96-108) mmol/L Carbon Dioxide 24 (22-29) mmol/L Anion Gap 23 H (12-20) BUN 13 (9-16) mg/dL Creatinine 0.81 (0.5-1.4) mg/dL Estim Creat Clear Calc 120.8 Estimated GFR > 60 Random Glucose 88 (60-115) mg/dL Calcium 9.8 (8.4-10.2) mg/dL Magnesium 2.0 (1.6-2.6) mg/dL Total Bilirubin 0.4 (0.0-1.0) mg/dL AST 123 H (5-37) U/L ALT 194 H (0-40) U/L Alkaline Phosphatase 73 (39-117) U/L Total Protein 8.1 H (6.5-8.0) g/dL Albumin 4.8 (3.5-5.0) g/dL Salicylates < 5.0 L (15-30) mg/dL Urine Opiates Screen Not Detected (Not Detect) Urine Fentanyl Screen Not Detected (Not Detect) Acetaminophen < 17 (<30) mcg/mL Ur Barbiturates Screen POSITIVE H (Not Detect) Ur Phencyclidine Scrn Not Detected (Not Detect) Ur Amphetamines Screen Not Detected (Not Detect) U Benzodiazepines Scrn POSITIVE H (Not Detect) Urine Cocaine Screen Not Detected (Not Detect) U Marijuana (THC) Screen Not Detected (Not Detect) Ethyl Alcohol 195 mg/dL Critical Care Time Critical Care Time Critical Care Time: No Discharge Plan Discharge Clinical Impression: Alcohol withdrawal syndrome, Alcoholic intoxication Prescriptions: No Action thiamine HCl (vitamin B1) 100 mg tablet 100 mg PO DAILY Qty: 30 0RF folic acid 1 mg tablet 1 mg PO DAILY Qty: 30 0RF fluoxetine 40 mg capsule 40 mg PO DAILY trazodone 50 mg tablet 50 mg PO BEDTIME bupropion HCl 100 mg tablet sustained-release 12 hr 100 mg PO BID@0900,1200 buspirone 30 mg tablet 30 mg PO BID pantoprazole 20 mg tablet,delayed release (DR/EC) 20 mg PO DAILY acamprosate 333 mg tablet,delayed release (DR/EC) 666 mg PO TID Therems-M 9 mg iron-400 mcg tablet 1 tab PO DAILY melatonin 10 mg Tablet 10 mg PO BEDTIME
[2023-02-19 10:35] VITALS: BP 147/101; BP 154/100; PULSE 110; PULSE 112; RESP 22; TEMP 37.2; O2SAT 98; O2SAT 99; BMI 24.3
[2023-02-19] MEDS: LORazepam 1 MG TABLET PO ×2 (10:42→19:33)
--- NOTE | 2023-02-19 11:06 | PC.NURSE ---
Pt to [facility] [place] from home via EMS for ETOH. Pt states that he would like medical detox and then admission to a rehab facility. Pt states that he currently consumes ~1L of hard liquor (Vodka or Tequila) per day. Last drink this morning. Pt states he already feels as though he is going into withdrawal. Provider notified. Most recent CIWA: 17. Pt placed on monitoring tech.
[2023-02-19 11:08] LABS: MANUAL DIFF FLAG NO
[2023-02-19 11:11] LABS: Basophils Absolute Auto 0.1 X10*3/uL (0.0-0.2); Basophils Percent Auto 1.2 % (0-2); Eosinophils Percent Auto 0.2 % (0-4); Hemoglobin 12.9 g/dl (14.0-18.0); Imm Gran Abs Auto 0.01 X10*3/uL (0.00-0.03); Imm Gran Pct Auto 0.2 % (0.0-0.4); Lymphocytes Absolute Auto 0.8 X10*3/uL (1.2-4.9); Lymphocytes Percent Auto 19.2 % (20-40); Mean Corpuscular HGB Conc 34.9 g/dl (31.0-36.0); Mean Corpuscular Hemoglobin 29.5 pg (27.0-33.0); Mean Corpuscular Volume 84.7 fL (80.0-98.0); Mean Platelet Volume 9.2 fL (9.4-12.4); Monocytes Absolute Auto 0.6 X10*3/uL (0.1-1.2); Monocytes Percent Auto 14.4 % (2-11); Neutrophils Absolute Auto 2.7 x10*3/uL (2.0-8.3); Neutrophils Percent Auto 64.8 % (45-73); Platelet Count 229 X10*3/uL (160-400); Red Blood Count 4.37 X10*6/uL (4.60-5.80); Red Cell Distribution Width 14.5 % (11.0-16.0); White Blood Count 4.2 X10*3/uL (4.8-10.8)
[2023-02-19] MEDS: LORazepam 2 MG/ML VIAL IVPUSH ×2 (11:12→14:56)
[2023-02-19 11:31] LABS: Acetaminophen LAB < 17 mcg/mL (<30); Alanine Aminotransferase 194 U/L (0-40); Albumin Level 4.8 g/dL (3.5-5.0); Alkaline Phosphatase 73 U/L (39-117); Anion Gap 23 (12-20); Aspartate Amino Transferase 123 U/L (5-37); Bilirubin Total 0.4 mg/dL (0.0-1.0); Blood Urea Nitrogen 13 mg/dL (9-16); Calcium 9.8 mg/dL (8.4-10.2); Carbon Dioxide 24 mmol/L (22-29); Chloride 94 mmol/L (96-108); Creatinine Clr Calc Pharmacy 120.8; Estimated Glomerular Filt Rate > 60; Ethanol 195 mg/dL; Glucose Random 88 mg/dL (60-115); Potassium 3.5 mmol/L (3.3-5.1); Salicylate < 5.0 mg/dL (15-30); Sodium 137 mmol/L (135-145); Total Protein 8.1 g/dL (6.5-8.0)
--- NOTE | 2023-02-19 11:44 | MHC.RECOVSUP ---
Addendum entered by Ed Gomez 02/20/23 13:32: confirmed with Ranjith Gaston that pts insurance will be active tomorrow and they will have a bed for him then. Pt to follow up from the community. Addendum entered by Ed Gomez 02/19/23 18:11: Pt informs he had been working with [facility] and his insurance for a bed. Pt states that his insurance should start up by Thursday and that [facility] would take him then. Provider would like to hold pt for the night to make sure he is stable and we can re assess in morning to see if anything has changed or if insurance comes on sooner. Original Note: Met with pt in ED16 who is here for MIKE. Pt reports drinking 1 liter of vodka daily since leaving [facility] and is interested in ATS at this time. Pt would prefer [facility] or [facility]. ATS bed search in process.
[2023-02-19 11:45] LABS: Amphetamine Screen Urine Not Detected (Not Detect); Barbiturates, Urine POSITIVE (Not Detect); Benzodiazepines Screen Urine POSITIVE (Not Detect); Cannabinoid Screen Urine Not Detected (Not Detect); Cocaine Screen Urine Not Detected (Not Detect); Fentanyl, urine Not Detected (Not Detect); Opiate Screen Urine Not Detected (Not Detect); Phencyclidine Screen Urine Not Detected (Not Detect)
--- NOTE | 2023-02-19 14:58 | PC.NURSE ---
Pt speaking with care team, medicated per MAR with IV Ativan. Currently appears in NAD. Remains tachy on the monitor. BP elevated, all other VSS.
[2023-02-19] MEDS: LORazepam 2 MG/ML VIAL 1 MG IVPUSH (16:00)
[2023-02-19] MEDS: Metoclopramide HCl 10 MG/2 ML VIAL IVPUSH (16:00)
[2023-02-19] MEDS: diphenhydrAMINE HCL 50 MG/ML VIAL IVPUSH (16:00)
[2023-02-19 16:05] VITALS: BP 139/82; PULSE 102; RESP 16; TEMP 36.8; O2SAT 96
[2023-02-19 19:33] VITALS: BP 150/99; PULSE 112; RESP 16; O2SAT 99
--- NOTE | 2023-02-19 19:58 | PC.NURSE ---
I assumed care of the pt at 1900. Pt is awake and alert at this time, reports increased anxiety, headache, tremors. Pt was given an ativan PRN and a sandwich. Pt is now resting comfortably in bed with monitor applied and seizure precautions in place.
--- NOTE | 2023-02-19 21:14 | PHA.MEDREC ---
Pharmacy Consult ? Medication Reconciliation Pharmacy has completed the medication reconciliation. Patient discharged 1 week ago from inpatient unit. Utilized discharge summary to complete med rec. Crystal Moran, RowanD
[2023-02-19 23:57] VITALS: BP 155/96; PULSE 100; RESP 18; TEMP 36.7; O2SAT 99
[2023-02-20] MEDS: ondansetron HCL 4 MG/2 ML VIAL IVPUSH (00:35)
[2023-02-20] MEDS: LORazepam 1 MG TABLET PO ×4 (00:35→15:07)
--- NOTE | 2023-02-20 05:22 | PC.NURSE ---
PT appears to be sleeping at this time with no apparent distress. Equal respirations noted. Pt easily awaken with verbal stimuli.
[2023-02-20 05:56] VITALS: BP 149/92; PULSE 84; RESP 14; TEMP 36.6; O2SAT 99
--- NOTE | 2023-02-20 07:25 | PC.NURSE ---
pt resting comfortably in bed, eyes closed, breathing even and unlabored
[2023-02-20 10:10] VITALS: BP 134/94; PULSE 93; RESP 18; TEMP 36.7; O2SAT 98
--- NOTE | 2023-02-20 11:53 | PC.NURSE ---
pt requesting to speak with recovery about the plan for today regarding discharge and his program tomorrow.
[2023-02-20 12:03] VITALS: RESP 14; O2SAT 98
[2023-02-20 14:59] VITALS: BP 167/100; PULSE 115; RESP 22; TEMP 36.5; O2SAT 96
--- NOTE | 2023-02-20 15:11 | PC.NURSE ---
Kar was brought into the POD while waiting for a detox bed. Pt discharged and he reports he will have a bed at [facility] tomorrow. VS 165/100 P115 R 22 CIWA 8. Lorazepam given before discharge and prescription given to bridge until tomorrow. Hospital providing LYFT home.
== END 2023-02-20 15:18 | disposition home or self-care (01) ==
PROVIDERS: Physician Assistant; Emergency Provider Emergency Medicine Emergency Medical Services; PCP Family Medicine
DX: F10.220 Alcohol dependence with intoxication, uncomplicated (principal); F10.230 Alcohol dependence with withdrawal, uncomplicated; Y90.6 Blood alcohol level of 120-199 mg/100 ml; I10 Essential (primary) hypertension; F33.9 Major depressive disorder, recurrent, unspecified; Z79.899 Other long term (current) drug therapy
CPT/HCPCS: 36415; 80053; 80143; 80179; 80307; 83735; 85025; 93005; 96374; 96375; 96376; 99285; J1200; J2060; J2405; J2765

== ENCOUNTER 2023-05-19 14:24 | Outpatient (AMB) | payer OTHER, MEDICAID, SELFPAY ==
--- NOTE | 2023-05-19 14:32 | A.OFFVIS_ITS ---
Intake Vital Signs 05/19/23 14:37 BP 126/78 Blood Pressure Location Lt radial Position Sitting Pulse 70 Pulse Source Pulse Oximeter Pulse Oximetry (%) 98 Oxygen Delivery Method Room Air Intake Visit Reasons: MAT Intake Intake Note: the patient presents for a mat intake Zigzag Topstitcher Required: No Allergies No Known Allergies [NO KNOWN ALLERGIES] Allergy (Unknown, Verified 05/19/23 14:44) UNKNOWN Medication List - Last Reconciled 05/19/23 by Nina Gomez CNP acamprosate 666 mg PO TID buspirone 30 mg PO BID fluoxetine 40 mg PO DAILY folic acid 1 mg PO DAILY melatonin 10 mg PO BEDTIME thiamine HCl (vitamin B1) 100 mg PO DAILY trazodone 50 mg PO BEDTIME HPI MAT Intake HPI Details Patient presents to re-establish care for AUD Patient well known to this senior technical writer via previous outpatient treatment and inpatient treatment as well. Patient reports he was recently in treatment at [facility] for about a month--discharged end of January While there he restarted Vivitrol Since then patient has been at [facility] for IOP, and currently at 3 mornings per week Sees therapist every He reports he received his second injection around when he sought admission to unit because he was afraid he was going to have a recurrence. Currently working PT at [employer] and seeking FT employment Identified a new recovery network. Feels like they have been quite supportive He has also been attending AA meetings with a friend in recovery [facility] Medical History (Updated 05/21/23 @ 16:03 by Nina Gomez CNP) Alcohol use disorder, severe, dependence Alcohol abuse Elevated LFTs Recurrent major depression-severe Alcohol withdrawal syndrome Hypertension Anxiety and depression Psychiatric disturbance Family History Other Lung cancer Social History Household Members: None Housing: House Do you presently have visiting nurse or other home services: No Alcohol intake: current Alcohol intake frequency: 3 or more drinks per day Alcohol type: hard liquor Patient Tobacco Use Status: Never used Tobacco e-Cigarette/Vaping Use: Never Used Second Hand Smoke Exposure: No Substance Use Type: Marijuana Advance Directives Date on File: 01/08/21 service: No Current occupational status: unemployed Sexual orientation: Straight/Heterosexual Review of Systems Const Reports as per HPI Physical Exam Vital Signs: Last Vital Signs Pulse 70 05/19/23 14:37 BP 126/78 05/19/23 14:37 Pulse Ox 98 05/19/23 14:37 Oxygen Delivery Method Room Air 05/19/23 14:37 Const General: cooperative, healthy appearing and no acute distress Nutritional Appearance: well nourished Orientation/consciousness: patient oriented x3 Limitations: no limitations Neuro General: patient oriented x3 Psych Appearance: well kempt Speech and movement: Clear speech present Affect: normal affect Attitude: cooperative Thought process: Normal thought process present Thought content: Normal thought content present Insight: Fair insight present (Psych) Judgement: Good judgement present (Psych) Assessment & Plan Assessment & Plan (1) Alcohol use disorder, severe, dependence: Code(s): F10.20 - Alcohol dependence, uncomplicated Plan: * continue PO naltrexone * Vivitrol ordered * relapse prevention discussion * follow up 2 weeks Medications: New naltrexone microspheres ER (Vivitrol) 380 mg IM Q4W 1 ea 5RF trazodone 50 mg PO BEDTIME 30 tabs 0RF Coding Level of Care Code Est Pt Level 4 (83607) Diagnoses Alcohol use disorder, severe, dependence F10.20
[2023-05-19 14:37] VITALS: BP 126/78; PULSE 70; O2SAT 98
== END 2023-05-19 16:03 | disposition home or self-care (01) ==
PROVIDERS: PCP Family Medicine; Visit Provider Nurse Practitioner Psychiatric/Mental Health
DX: F10.20 Alcohol dependence, uncomplicated (principal)
CPT/HCPCS: 99214

== ENCOUNTER → 2023-05-19 14:24 | Outpatient (BNVA) | payer OTHER, MEDICAID, SELFPAY | PROVIDERS: PCP Family Medicine; Visit Provider Nurse Practitioner Psychiatric/Mental Health ==

== ENCOUNTER 2023-05-31 09:48 | Emergency (ER) | payer OTHER, SELFPAY ==
--- NOTE | ~2023-05-31 | US_ITS ---
EXAMINATION: US VENOUS WITH DOPPLER UPPER EXTREMITY, RIGHT CLINICAL INFORMATION: Infected IV site assess for abscess or DVT pain and swelling. COMPARISON: None available. TECHNIQUE: Ultrasound of the upper extremity is performed using compression sonography and color and pulse Doppler flow with assessment of augmentation of flow. There is also imaging and Doppler assessment of the jugular and subclavian veins. Spectral analysis with color-flow imaging is performed. FINDINGS: There is normal flow in the internal jugular and subclavian veins. There is occlusive appearing thrombus within the cephalic vein extending to the median cubital vein as well as the mid to distal brachial vein. I do not appreciate any discrete abscess cavity or collection within the visualized soft tissues. US/US venous duplex UE RT IMPRESSION: Occlusive thrombus within the cephalic vein extending to the median cubital vein as well as the mid to distal brachial vein. This critical result was discussed with Taylor VERONICA at 05/31/2023 3:23 PM and it was ascertained that the content and urgency of the report was understood at the time of direct communication.
[2023-05-31 09:59] VITALS: BP 170/101; PULSE 92; RESP 18; TEMP 36.4; O2SAT 98; BMI 26.1
--- NOTE | 2023-05-31 10:35 | ED.GENADULT ---
HPI - General Adult General Chief complaint: General Medical Stated complaint: Infected IV site R arm antibiotics not helping Time Seen by Provider: 05/31/23 10:33 Source: patient, RN notes reviewed and old records reviewed Mode of arrival: ambulatory History of Present Illness HPI narrative: 37-year-old male with a past medical history of ETOH abuse, HTN, anxiety/depression, psychiatric disturbance, presenting to the ED complaining of indurated, red, painful area to right antecubital region s/p IV placement at [facility]. Patient admits he was admitted for ETOH abuse/withdrawal, discharged on and developed erythema/swelling at site. States was started on antibiotics by [facility] which he has been taking however feels symptoms are worsening. Denies fever/chills, drainage from area. Related Data Home Medications Medication Instructions Recorded Confirmed buspirone 30 mg tablet 30 mg PO BID 09/27/22 05/19/23 fluoxetine 40 mg capsule 40 mg PO DAILY 09/27/22 05/19/23 acamprosate 333 mg tablet,delayed 666 mg PO TID 02/10/23 05/19/23 release melatonin 10 mg tablet 10 mg PO BEDTIME 02/10/23 05/19/23 Previous Rx's Medication Instructions Recorded folic acid 1 mg tablet 1 mg PO DAILY #30 tabs 07/10/22 thiamine HCl (vitamin B1) 100 mg 100 mg PO DAILY #30 tabs 07/10/22 tablet naltrexone microspheres 380 mg 380 mg IM Q4W #1 ea 05/19/23 intramuscular suspension,extended release (Vivitrol) trazodone 50 mg tablet 50 mg PO BEDTIME #30 tabs 05/19/23 cephalexin 500 mg capsule 500 mg PO QID 7 days #28 caps 05/31/23 doxycycline hyclate 100 mg tablet 100 mg PO BID 7 days #14 tabs 05/31/23 Allergies Allergy/AdvReac Type Severity Reaction Status Date / Time No Known Allergies Allergy Unknown UNKNOWN Verified 05/31/23 09:59 [NO KNOWN ALLERGIES] Review of Systems Review of Systems: Constitutional: No Fever, No Chills ENT/Mouth: No Ear Pain, No Nasal Congestion, o sore throat, No Rhinorrhea, No Swallowing Difficulty Cardiovascular: No Chest Pain, No SOB Respiratory: No Cough Gastrointestinal: No Nausea, No Vomiting, No Abdominal pain Musculoskeletal: No joint pain, No Myalgias, No Joint Swelling Skin: + Skin Lesions, No rash Neuro: No Weakness, No Numbness, No Paresthesias Yes all other systems are reviewed and are negative Constitutional: Constitutional: Reports as per [facility] Past Medical History Attestation statement: The following information was validated with the patient. Source: old records reviewed Medical History Alcohol use disorder, severe, dependence Alcohol abuse Elevated LFTs Recurrent major depression-severe Alcohol withdrawal syndrome Hypertension Anxiety and depression Psychiatric disturbance Family History Family History Other Lung cancer Social History Social History Household Members: None Housing: House Do you presently have visiting nurse or other home services: No Alcohol intake: current Alcohol intake frequency: 3 or more drinks per day Alcohol type: hard liquor Patient Tobacco Use Status: Never used Tobacco e-Cigarette/Vaping Use: Never Used Second Hand Smoke Exposure: No Substance Use Type: Marijuana Advance Directives: Yes Advance Directives on File: Yes Advance Directives Date on File: 01/08/21 service: No Current occupational status: unemployed Sexual orientation: Straight/Heterosexual Physical Exam ED Vital Signs: Vital Signs - 24 hr 05/31/23 09:59 Temperature 97.6 F Pulse Rate 92 Respiratory Rate 18 Blood Pressure 170/101 H Pulse Oximetry 98 Oxygen Delivery Method Room Air BMI result Body Mass Index 26.1 Const General: cooperative, healthy appearing and no acute distress Orientation/consciousness: patient oriented x3 Limitations: no limitations [facility] Head: Yes normal to inspection and Yes atraumatic Ears: hearing grossly normal bilaterally General nose exam: Normal external nose present Face and sinus: Yes normal facial exam Eyes General: appearance normal, both eyes and all related structures EOM: EOMs intact bilaterally Neck Neck: Yes normal visual inspection and Yes no meningeal signs Resp Effort & Inspection: normal respiratory effort and no respiratory distress Cardio Rate: regular rate Peripheral pulses: radial pulses present and ulnar radial pulses present Skin Rashes: no rashes Neuro General: patient oriented x3, tone normal and no meningeal signs Cranial nerves: Yes CN's II-XII intact bilaterally Gait exam (Neuro): Normal gait present Extrem Other: Please refer to image above. Right antecubital area with erythematous indurated area with induration tracking proximally to mid humerus. No tracking erythema/streaking, fluctuance or active drainage. Not circumferential. Neurovascularly intact distally. No crepitus. Course Course Course Narrative: -1145--received records from [facility] patient was treated for cellulitis of right arm secondary to IV site. No fluctuance. Patient was started on Bactrim -1545--labs reassuring. US venous duplex UE RT IMPRESSION: Occlusive thrombus within the cephalic vein extending to the median cubital vein as well as the mid to distal brachial vein. This critical result was discussed with Taylor VERONICA at 05/31/2023 3:23 PM and it was ascertained that the content and urgency of the report was understood at the time of direct communication. > patient denies history of variceal bleeds or GI bleeds in the past. States he has not been drinking ETOH since discharge from [facility]. Discussed with patient he will need to be started on anticoagulation if he is drinking alcohol this put him at very high risk of danger so outcomes. He verbalized understanding. Discussed anticoagulation return precautions, and that he needs to be evaluated with any trauma, head injury, rectal bleeding or hematemesis Results discussed with patient including worrisome signs and symptoms and strict return precautions, and when to return to the emergency department. They verbalized understanding and feel safe for discharge at this time. Medical Decision Making Medical Decision Making [facility] Narrative: 37-year-old male with a past medical history of ETOH abuse, HTN, anxiety/depression, psychiatric disturbance, presenting to the ED complaining of indurated, red, painful area to right antecubital region s/p IV placement at [facility]. On exam hypertensive, NAD, nontoxic appearing, please refer to image above. Concern for indurated abscess w/superficial thrombophlebitis. No appreciable drainable collection at this time. Lower suspicion for DVT Plan: Venous duplex ultrasound, request records from [facility] Please refer to course for remaining clinical decision making, interpretation of labs/imaging results, and discussions with consultants and/or family members. Differential Diagnosis Differential Diagnoses: The differential diagnosis associated with the presentation includes As above Lab Data [facility] Lab Attestation statement: I reviewed the patient's lab results. 05/31/23 15:07 05/31/23 15:07 Labs: Lab Results 05/31/23 Range/Units 15:07 WBC 5.2 (4.8-10.8) X10*3/uL RBC 4.70 (4.60-5.80) X10*6/uL Hgb 12.8 L (14.0-18.0) g/dl Hct 37.7 L (42.0-52.0) % MCV 80.2 (80.0-98.0) fL MCH 27.2 (27.0-33.0) pg MCHC 34.0 (31.0-36.0) g/dl RDW 14.8 (11.0-16.0) % Plt Count 188 (160-400) X10*3/uL MPV 9.9 (9.4-12.4) fL Immature Gran % (Auto) 0.4 (0.0-0.4) % Neut % (Auto) 59.4 (45-73) % Lymph % (Auto) 23.5 (20-40) % Barron % (Auto) 14.8 H (2-11) % Eos % (Auto) 1.3 (0-4) % Baso % (Auto) 0.6 (0-2) % Lymph # (Auto) 1.2 (1.2-4.9) X10*3/uL Barron # (Auto) 0.8 (0.1-1.2) X10*3/uL Eos # (Auto) 0.1 (0.0-0.4) X10*3/uL Baso # (Auto) 0.0 (0.0-0.2) X10*3/uL Abs Immat Gran (auto) 0.02 (0.00-0.03) X10*3/uL Absolute Neuts (auto) 3.1 (2.0-8.3) x10*3/uL Absolute Nucleated RBC 0.000 (0.0-0.012) X10*3/uL Nucleated RBC % (auto) 0.0 (0.0-0.2) /100WBC PT 12.0 (11.1-13.3) SEC INR 1.0 (0.9-1.1) APTT 36.6 H (26.0-36.4) SEC Sodium 137 (135-145) mmol/L Potassium 3.6 (3.3-5.1) mmol/L Chloride 102 (96-108) mmol/L Carbon Dioxide 23 (22-29) mmol/L Anion Gap 16 (12-20) BUN 10 (9-16) mg/dL Creatinine 0.87 (0.5-1.4) mg/dL Estim Creat Clear Calc 112.4 Estimated GFR > 60 Random Glucose 113 (60-115) mg/dL Calcium 10.1 (8.4-10.2) mg/dL Radiology Impression Discussion of test interpretation with radiology: I have reviewed the radiologist's reading. External Record Review External record reviewed: Inpatient record, Office record, Outpatient record, Prior outpatient labs, Prior outpatient radiology, Primary care record and Outside ED record Tests considered The following testing was considered but not selected: As above Prescription Management I considered prescription management with: Pain Medication and Antibiotic Chronic Conditions Patient?s care impacted by: Other Social Determinants Patient?s care significantly limited by Social Determinants of Health including: Alcoholism and drug addiction in family Discharge Plan Discharge Clinical Impression: Superficial thrombophlebitis, Cellulitis Patient Disposition: Home, Self-Care Instructions: Cellulitis (DC), Superficial Thrombophlebitis (ED) Additional Instructions: Stop taking previously prescribed antibiotic, start taking doxycycline and Keflex as prescribed, take until completion Apply warm compresses for 15-20 minutes 4 times daily If area becomes soft, pointing, has drainage, redness spreading past lines, you fever/chills return to the emergency department Follow-up with your doctor in 3 days for re-evaluation Prescriptions: New cephalexin 500 mg capsule 500 mg PO QID 7 Days Qty: 28 0RF doxycycline hyclate 100 mg tablet 100 mg PO BID 7 Days Qty: 14 0RF No Action thiamine HCl (vitamin B1) 100 mg tablet 100 mg PO DAILY Qty: 30 0RF folic acid 1 mg tablet 1 mg PO DAILY Qty: 30 0RF fluoxetine 40 mg capsule 40 mg PO DAILY buspirone 30 mg tablet 30 mg PO BID acamprosate 333 mg tablet,delayed release (DR/EC) 666 mg PO TID melatonin 10 mg Tablet 10 mg PO BEDTIME Vivitrol 380 mg suspension,extended rel recon 380 mg IM Q4W Qty: 1 5RF trazodone 50 mg tablet 50 mg PO BEDTIME Qty: 30 0RF Referrals: Greg Ponce DO [Primary Care Provider] - 1 week
--- OUTSIDE RECORDS SUMMARY | 2023-05-31 10:38 | XMS_ITS | Continuity of Care Document ---
Author Name Unknown Organization [facility] lt Address [address] [place] [id number]- Care Team Providers Care Business Ethics Professor Name Role Phone Greg Ponce DO Primary Care Physician [phone] Encounter [facility] Date(s): 02/11/23 - 03/13/23 [facility] Adult [address] [place] [address]- Attending Physician: Admtr, Ar8 Allergies, Adverse Reactions, [...] Given 1Result Comment: BOOSTER 2Result Comment: [facility]# ON THE [address] [phone] 3Result Comment: [03/10/2017] [facility] [id number] 4Result Comment: [facility]: [id number] 5Result Comment: [10/10/2013] #1 6Admin Note: historical [...] a schedule II opioid drug., 172, cm, 07/... Start Date: 11/29/22 Status: Ordered multivitamin Multiple [...] cause 4advised pre diabetic increased risk diabetes Procedures Procedure Date Related Diagnosis Body Site Status Reference laboratory ER [facility] 1 10/29/21 Completed Reference laboratory ER [facility] 2 03/22/21 Completed Ultrasound of abdominal - Ec hogenic liver likely fatty infiltration 01/05/21 Completed Ambulatory blood pressure mo nitoring, utilizing a system such as magnetic tape and/or computer disk, for 24 hours or longer; including recording, scanning analysis, interpretation and report 3 06/11/10 Completed [facility] labs 10/29/2021 white count 7.86 hemoglobin [...] Status Never smoker entered on: 10/10/13 Sex Hospital Consult note * Event Display: [...] Team Personnel Name: Samy Coleman RN Position: S RN Member Role: Primary Care Nurse Name: Alix Vargas RN Position: [facility] RN Member Role: Primary Care Nurse Name: Nina Fulton RN Position: S RN Member Role: Primary Care Nurse Name: Mirela Fritz RN Position: S RN Member Role: Primary Care Nurse Name: Greg Ponce DO Position: S Physician - Primary Care Member Role: PCP Address: Address: [address] [place] [id number]- Name: Ana M Barnes Position: S RN Member Role: Primary Care Nurse Name: Rubina Brink RN Position: S RN Member Role: Primary Care Nurse Name: Neli Alcala RN Position: S RN Member Role: Primary Care Nurse Care Team Related Persons Name: DOMENICA COLÓN Address: home [address] [place] [address] Name: KENNETH BALDWIN Address: home [address] [place] [address]
--- OUTSIDE RECORDS SUMMARY | 2023-05-31 10:38 | XMS_ITS | Continuity of Care Document ---
Author Name Unknown Organization [facility] al Address [address] [place] [address]- Care Team Providers Care Framing Inspector Name Role Phone Not on Staff, PCP Primary Care Physician Unavail able Encounter [facility] Date(s): 04/20/23 - 04/24/[address] [address]- Discharge Disposition: A-D/C Home Attending Physician: Sunitha Cary MD Admitting Physician: Sunitha Cary MD Referring Physician: Mikey Dykes MD Allergies, Adverse Reactions, Alerts No Known Allergies Immunizations Given and Recorded Vaccine Date Status Refusal Reason tetanus/diphtheria/pertussis, acel(Tdap) 07/12/22 Given tetanus/diphtheria/pertussis, acel(Tdap) 09/13/12 Given hepatitis B adult vaccine 02/19/22 Recorded hepatitis B adult vaccine 01/15/21 Given Hepatitis A Adult Vaccine 02/19/22 Recorded Hepatitis A Adult Vaccine 1 10/10/13 Given influenza virus vaccine, inactivated 02/15/22 Jose rded influenza virus vaccine, inactivated 2 04/17/21 Gi gracie influenza virus vaccine, inactivated 07/09/20 Give n influenza virus vaccine, inactivated 04/20/19 Give n influenza virus vaccine, inactivated 3 03/10/17 Gi gracie tetanus-diphtheria toxoids (Td) 01/30/22 Recorded tetanus-diphtheria toxoids (Td) 4 04/29/04 Given SARS-CoV-2 (COVID-19) mRNA-1273 vaccine 5 05/28/21 Recorded SARS-CoV-2 (COVID-19) mRNA-1273 vaccine 09/27/20 R ecorded SARS-CoV-2 (COVID-19) mRNA-1273 vaccine 08/30/20 R ecorded pneumococcal 13-valent vaccine 6 01/11/21 Given FluLaval (oldterm) 04/16/10 Given 1Result Comment: [10/10/2013] #1 2Result Comment: [facility]# ON [address] [phone] 3Result Comment: [03/10/2017] [facility] [id number] 4Admin Note: historical data 5Result Comment: BOOSTER 6Result Comment: [facility]: [id number] Medications acamprosate 333 mg oral delayed release tablet 2 tablet = 666 mg, By Mouth, 3 times a day, # 180 tablet, 1 Refills, Maintenance, 02/06/23 10:35:00EDT, CR Tablet, [facility], 173, cm, 02/06/23 4:34:00 EDT, Height, 80.9, kg, 02/02/23 18:22:00EDT, Dry Weight Start Date: 02/06/23 Status: Ordered Ativan 0.5 mg oral tablet 1 tablet = 0.5 mg, By Mouth, 2 times a day, for 3 days, # 6 tablet, 0 Refills, Acute 04/26/23 16:09:00 EST, 04/23/23 16:09:00 EST, Tablet, [facility], Partial fill upon patient request if the prescription is for a schedule II opioid drug., 172, c... Start Date: 04/23/23 Stop Date: 04/26/23 Status: Ordered busPIRone 30 mg oral tablet [...] cm, ... Start Date: 11/29/22 Status: Ordered hydrOXYzine hydrochloride 25 mg oral tablet 1 tablet = 25 mg, By Mouth, 4 times a day, PRN as needed for anxiety, for 7 days, # 20 tablet, 0 Refills, Acute 04/30/23 15:55:00 EST, 04/23/23 15:55:00 EST, Tablet, [facility], Partial fill upon patient request if the prescription is for a sched... Start Date: 04/23/23 Stop Date: 04/30/23 Status: Ordered multivitamin Multiple Vitamins oral capsule [...] tablet 100 mg, By Mouth, Daily, for 14 days, # 14 tablet, Refills 0, Tot. Refills 0, Acute 05/07/23 15:55:00 EST, 04/23/23 15:55:00 EST, Route to Pharmacy Electronically, [facility], Partial fill upon patient request if the prescription is for a schedul... Start Date: 04/23/23 Stop Date: 05/07/23 Status: Ordered traZODone 50 mg oral tablet 50 mg, 1, tablet, By Mouth, Daily at bedtime, # 30 tablet, Refills 0, Maintenance, 11/27/22 14:13:00 EDT, Partial fill upon patient request if the prescription is for a schedule II opioid drug. Start Date: 11/27/22 Status: Ordered Problem List Condition Confirmation Course Effective Dates Status H ealth Status Informant Alcohol withdrawal Confirmed Active Essential Hypertension 1, 2, 3 Confirmed Active Hyperlipidemia Confirmed Active Impaired fasting glucose 4 Confirmed Active Metabolic acidosis Confirmed Active Moderate recurrent major depression Confirmed Active Alcohol use disorder, severe, dependence Confirmed Active Fatty liver us 2020 Confirmed Active 1urine catecholamines appear normal 2negative renal artery duplex 3r/o secondary cause 4advised pre diabetic increased risk diabetes Vital Signs Most recent to oldest [Reference Range]: 1 2 3 Height 172 cm (04/24/23 7:55 AM) 172 cm (04/24/23 5:08 AM) 172 cm (04/23/23 8:16 PM) Weight 78.5 kg (04/21/23 8:00 PM) 78.5 kg (04/21/23 9:50 AM) 80 kg (04/20/23 5:02 PM) Oxygen Saturation [94-100 %] 99 % (04/24/23 7:55 AM) 99 % (04/24/23 5:08 AM) 99 % (04/23/23 8:16 PM) Pulse Rate [55-90 bpm] 66 bpm (04/24/23 7:55 AM) 55 bpm (04/24/23 5:08 AM) 70 bpm (04/23/23 8:16 PM) Body Mass Index [18.5-24.99 kg/m2] 26.53 kg/m2 *H* (04/21/23 9:50 AM) 27.04 kg/m2 *H* (04/20/23 5:02 PM) 27.04 kg/m2 *H* (04/20/23 3:03 PM) Blood Pressure [90-138/55-84 mm Hg] 143/80mm Hg 1 *H* (04/24/23 7:55 AM) 128/90mm Hg (04/24/23 5:08 AM) 140/99mm Hg *H* (04/23/23 8:16 PM) Respiratory Rate [16-30 br/min] 14 br/min *L* (04/24/23 7:55 AM) 18 br/min (04/24/23 5:08 AM) 18 br/min (04/23/23 8:16 PM) Temperature [96.8-100.4 DegF] 98.1 DegF (04/24/23 7:55 AM) 97.9 DegF (04/24/23 5:08 AM) 97.7 DegF (04/23/23 8:16 PM) Mode of Delivery (Oxygen) Room air (04/24/23 7:55 AM) Room air (04/24/23 5:08 AM) Room air (04/23/23 8:16 PM) Blood pressure sites Arm, left (04/24/23 7:55 AM) Arm, left (04/24/23 5:08 AM) Arm, left (04/23/23 8:16 PM) Temperature Route Oral (04/24/23 7:55 AM) Oral (04/24/23 5:08 AM) Oral (04/23/23 8:16 PM) Dry Weight 78.5 kg (04/21/23 9:50 AM) 80 kg (04/20/23 5:02 PM) 80 kg (04/20/23 3:03 PM) Weight Obtained Via Standing scale (04/21/23 9:50 AM) Dry Weight Obtained Via Standing scale (04/21/23 9:50 AM) 1Result Comment: Nurse Jose Antonio aware of BP. Social History Social History Type Response Smoking Status Never smoker entered on: 10/10/13 Sex History and physical note * Noe TAMEZ, Mraiya Swan: PERFORM Event Display: History and Physical Hospital Authored Date: [id number] Patient: ??JULIOCESAR COLÓN ? Age:??37 Years?Sex:??Male?:??1985?? Chief Complaint/Reason for Consultation etoh, with hx, ??outpt rehab, vee x several days looking for help. ??has severe anxiety, ??? withdrawals, ??Last drink last pm. ??pt receives vivitrol injections missed his last dose x 3 weeks ago. ??vodka x 3 days and beer. ??No daily meds x days History of Present Illness 37-year-old male with past medical history of alcohol dependence with prior admissions for??alcoholwithdrawal, denies ever having alcohol withdrawal seizure in the past, hypertension and depression presents to the emergency department with chief complaint of alcohol withdrawal type symptoms. ??Patient currently on Vivitrol and states??there was confusion on??who was going to give him??his injections, states he was in a treatment program??and did not receive his injection which she receives??every 28 days. ??Reports approximately 5 days ago he began to have significant withdrawal type symptoms as he had attempted??complete alcohol cessation,??reports he felt??quite ill??and therefore??begandrinking again. ??Reports his last drink??was late last evening,??reports ongoing headache, anxiety, tremors, mild diaphoresis??and intermittent nausea without vomiting. ??Denies any other sick symptoms, does express significant??desire to achieve sobriety.?? Denies nicotine dependence, does state that he uses marijuana fairly regularly, resides at home alone. ?? On arrival to the emergency department awake and alert,??mildly tachycardic and hypertensive in the setting of??acute alcohol withdrawal. ??Labs on arrival relatively unremarkable aside from an EtOH level of 241 and a mildly low bicarb at 21. ??Talk screen positive for cannabis and ETOH only.?Patient started on IV fluids and CIWA protocol in the emergency department and subsequently admitted to the general medicine service for acute alcohol withdrawal. Review of Systems Constitutional:??No weight loss, fever, chills.?Does report generalized weakness and fatigue HEENT:??No visual loss, blurred vision, double vision or yellow sclera. No hearing loss, sneezing, congestion, runny nose or sore throat. Skin:??No rash or itching. Cardiovascular:??No chest pain, chest pressure or chest discomfort. No palpitations or pedal edema. Respiratory:??No shortness of breath, cough or sputum production. Gastrointestinal:??No anorexia,??vomiting or diarrhea. No abdominal pain or blood in stool.?? Reports mild intermittent nausea without vomiting Genitourinary:??No burning micturition. No urinary frequency or incontinence. Neurologic:??No dizziness, syncope, unilateral weakness, ataxia, numbness or tingling in the extremities. No change in bowel or bladder control.??Reports moderate headache,??mild tremors and diaphoresis. Musculoskeletal:??No muscle pain, back pain, joint pain or stiffness. Hematologic:??No bleeding or bruising. Lymphatics:??No enlarged lymph nodes. Psychiatric:??Does report ongoing anxiety, denies SI Endocrine:??No reports of sweating. No cold or heat intolerance. No polyuria or polydipsia. Objective Vital Signs?? Temperature: 98.4 DegF (04/20/23 13:16:00) Temperature Route: Oral (04/20/23 13:16:00) Pulse Rate:??109 bpm??High (04/20/23 15:03:00) Respiratory Rate: 18 br/min (04/20/23 15:03:00) Systolic Blood Pressure: 137 mm Hg (04/20/23 15:03:00) Diastolic Blood Pressure:??88 mm Hg??High (04/20/23 15:03:00) Blood pressure sites: Arm, right (04/20/23 15:03:00) Mean Arterial Pressure: 104 mm Hg (04/20/23 15:03:00) Pulse Pressure: 49 mm Hg (04/20/23 15:03:00) Oxygen Saturation:??92 %??Low (04/20/23 15:03:00) Mode of Delivery (Oxygen): Room air (04/20/23 15:03:00) ? Intake/Output? No Data Available ? Physical Exam General:??37-year-old male sitting up on stretcher in the emergency department, awake, alert, no acute distress,??quite forthcoming regarding his degree of alcohol dependence??and desire to achieve sobriety Mental Status:??Oriented to person, place and time.?Anxious affect. Head:??Normocephalic. Eyes:??Pupils are equal, round and reactive to light. Extraocular muscles intact. Ear, Nose and Throat:??Oropharynx clear, mucous membranes moist.?? Trachea midline. Neck:??Supple, Full range of motion. Respiratory:??Clear to auscultation, ??No wheezing, rales or rhonchi. Cardiovascular:??Heart sounds normal. No thrills. Regular?? rhythm, no murmurs, rubs or gallops.?? Mild tachycardia noted Gastrointestinal:??Abdomen soft, non-tender, non-distended. Normal bowel sounds. Genitourinary:??No CVA tenderness Neurologic:??Cranial nerves II-XII grossly intact. No focal neurological deficits. Moves all extremities spontaneously. Sensation intact bilaterally.?Mildly diaphoretic, mild tremors noted with arms extended. Skin:??No rashes or lesions. Musculoskeletal:??No cyanosis or clubbing. No gross deformities. Normal range of motion. Assessment/Plan Diagnoses 1. ??Alcohol withdrawal ??(F10.939) 2. ??Alcohol use disorder, severe, dependence ??(F10.20) 3. ??Metabolic acidosis ??(E87.20) 4. ??Essential Hypertension ??(I10) 5. ??Moderate recurrent major depression ??(F33.1) ?? Alcohol withdrawal (F10.939):??. Alcohol use disorder, severe, dependence (F10.20):??Longstanding history of alcohol dependence withprior admissions for alcohol withdrawal, presents with an alcohol level of 241??and??exam quite consistent with acute alcohol withdrawal.??Mildly tachycardic and hypertensive.??Denies ever having alcohol withdrawal seizure in the past Plan ??? Start CIWA with lorazepam and clonidine?? - seizure precautions ??? Daily folic acid, thiamine, multivitamin, pyridoxine ??? Continuous cardiac monitoring ??? Gentle IV fluids ??? Encourage oral fluid intake ??? Strict fall precautions ??? Social work consult- does express desire to achieve sobriety?? - consider restarting Vivitrol prior to discharge - PT expressing difficulty getting injection as outpt - continue home PPI ?? Metabolic acidosis (E87.20):??Mildly acidotic on arrival in the setting of chronic alcohol intake Plan ??? Start LR x2 L ??? Follow a.m. labs ?? Essential Hypertension (I10):??appears he was on amlodipine at one point but not compliant with outpt medications - mild hypertension on arrival but now started on clonidine Plan -hold on starting additional agents for now - continue clonidine per CIWA - may need additional agent on discharge ?? Moderate recurrent major depression (F33.1):??per claim HX not compliant with Trazadone, ??bupropion or fluoxetine as he is not??picked up these prescriptions in quite some time.?? Plan - hold on restarting for now, continue Lorazepam with CIWA and consider restarting single agent on discharge- will need to re-taper dosing of antidepressant agents as outpt - PCP follow up - will restart home trazodone at HS? VTE Prophylaxis:??compression boots / ambulation ?VTE Prophylaxis Assessment:??Risk Level documented as Low Risk ?? Code Status:??Full ?Order Code Status:??Code Status Ordered ?? Ongoing Medical Necessity:??ETOH withdrawal ?? Discharge Planning:? Histories Allergies Allergies ?(Active and Proposed Allergies Only) NKA? (Severity: Unknown severity, Onset: Unknown) ? Past Medical History/Problem List Active Problems??(8) Alcohol use disorder, severe, dependence Alcohol withdrawal Essential Hypertension Fatty liver 2020 Hyperlipidemia Impaired fasting glucose Metabolic acidosis Moderate recurrent major depression ? Past Surgical History Reference laboratory ER [facility]: 10/29/21 Electrocardiogram: 07/17/21 CT of abdomen and pelvis nad: 05/06/21 Electrocardiogram sinus: 05/03/21 Reference laboratory ER [facility]: 03/22/21 Reference laboratory: 01/06/21 Ultrasound of abdominal - Echogenic liver likely fatty infiltration: 01/05/21 Ultrasound scan of [place] liver fatty ;iver : 01/04/21 CT of brain /c spine nad: 07/06/19 CT angiography of thorax/abd/pelvs nad: 07/06/19 EKG sinus: 07/02/19 EK06/30/19 Reference laboratory: 06/30/19 Reference (Outside) Laboratory: 05/31/19 CT of thorax nad: 05/03/19 EKGsinus 130 normal pr qtc ??qrs nonspecific st t: 03/19/19 Chest X-ray nad: 03/19/19 Reference laboratory: 03/19/19 Electrocardiogram, routine ECG with at least [...] report only: 04/16/10 ? Social History Alcohol Details:??Frequency: Daily. ??Type: Liquor. ??Other: DRINKING A HANDLE OF VODKA DAILY FOR LAST 5 DAYS. PRIOR A HANDLE WOULD LAST ABOUT 3 DAYS.. Details:??Use: Current. ??Frequency: Daily. ??Type: Beer, Liquor. Employment/School Details:??Status: Unemployed. ??Other: FAMILY BUSINESS JUST CLOSED. Exercise Details:??Self assessment: Good condition. ??Other: peloton. ??Regular exercise: Yes. ??Exercise frequency: 3-4 times/week. ??Exercise type: Aerobics, Weight lifting. Home/Environment Details:??Living situation: Home/Independent. ??Lives with: Alone. Nutrition/Health Details:??Diet: Regular. Other Details:??Name: uses seat belt always/. Sexual Details:??Sexually involved in last 6 months: No. ??Other sexual concerns: only safe sex. ??STD/HIVprevention: Condom use 100% of the time. Substance Abuse Details:??Use: Never. ??Other: CBD OIL. Tobacco Details:??Use: Never smoker. Electronic Cigarette/Vaping Details:??Electronic Cigarette Use: Never. ? Psychosocial History [...] Mouth?Daily at bedtime ? Inpatient Medications Medications (16) Active SCHEDULED: (7) Clonidine 0.1 mg Tablet (ClonIDINE Tablet) ??0.1 mg, By Mouth, Every 6 hours Folic Acid 1 mg Tablet (Folic Acid [...] Mouth, 2 times a day CONTINUOUS: (1) Lactated Ringers (1000 mL) Cont IV 1,000 mL (LR 1,000 mL) ??1,000 mL, IV Infusion, 100 mL/hr PRN: (8) Acetaminophen 325 mg Tablet (Tylenol 325 mg oral tablet) ??650 mg, By Mouth, Every 6 hours Al hydroxide/Mg hydroxide/simethicone 200 mg-200 mg-20 mg/5 mL Susp UD (Maalox Plus Liquid) ??15 mL, By Mouth, 4 times a day Calcium Carbonate 500 mg (Calcium 200 mg) Chewable Tablet (calcium carbonate 500 mg (200 mg elemental calcium) oral tablet, chewable) ??500 mg 1 tablet, Chew, Every 4 hours Lorazepam 2 mg Inj Syringe (Ativan Inj) ??1 mg, IV Push Slowly, Every 2 hours Lorazepam 2 mg Inj Syringe (Ativan Inj) ??2 mg, IV Push Slowly, Every 2 hours Lorazepam 2 mg Inj Syringe (Ativan Inj) ??2 mg, IV Push Slowly, Every hour Melatonin 3 mg Tablet (Melatonin Tablet) ??6 mg, By Mouth, Daily at bedtime Sodium Chloride 0.65% Nasal [place] (Salinex [place]) ??1 sprays, Nares, Both, 4 times a day ? Results Recent Labs BLOOD COUNT & DIFF WBC 6.7 k/mm3 ()?? 04/20/2023 14:20 RBC 5.43 m/mm3 ()?? 04/20/2023 14:20 Hgb 15.1 Gm/dL ()?? 04/20/2023 14:20 Hct 44.9 % ()?? 04/20/2023 14:20 MCV 82.7 femtoliters ()?? 04/20/2023 14:20 MCH 27.8 pg ()?? 04/20/2023 14:20 MCHC 33.6 g/dL ()?? 04/20/2023 14:20 Platelet Count 237 k/mm3 ()?? 04/20/2023 14:20 RDW-SD 44.3 femtoliters ()?? 04/20/2023 14:20 MPV 9.8 femtoliters ()?? 04/20/2023 14:20 Nucleated RBC (Automated) 0.0 #/100 WBC'S ()?? 04/20/2023 14:20 Abs. NRBC 0.0 k/mm3 ()?? 04/20/2023 14:20 Abs. Neut 4.2 k/mm3 ()?? 04/20/2023 14:20 Abs. Lymph 1.7 k/mm3 ()?? 04/20/2023 14:20 Abs. George 0.6 k/mm3 ()?? 04/20/2023 14:20 Abs. Eo 0.0 k/mm3 ()?? 04/20/2023 14:20 Abs. Baso 0.1 k/mm3 ()?? 04/20/2023 14:20 Neut % 63.3 % ()?? 04/20/2023 14:20 Lymph % 25.8 % ()?? 04/20/2023 14:20 George % 9.0 % ()?? 04/20/2023 14:20 Eos % 0.5 % ()?? 04/20/2023 14:20 Baso % 1.1 % ()?? 04/20/2023 14:20 Imm Gran 0.3 % ()?? 04/20/2023 14:20 Abs. Imm Gran 0.0 k/mm3 ()?? 04/20/2023 14:20 ?? CHEM GENERAL Sodium 139 mmol/L ()?? 04/20/2023 14:20 Potassium 4.0 mmol/L ()?? 04/20/2023 14:20 Chloride 95 mmol/L (Low)?? 04/20/2023 14:20 Bicarbonate Level 21 mmol/L (Low)?? 04/20/2023 14:20 Anion Gap 23 (High)?? 04/20/2023 14:20 Glucose Level 86 mg/dL ()?? 04/20/2023 14:20 BUN 14 mg/dL ()?? 04/20/2023 14:20 Creatinine-Blood 0.7 mg/dL ()?? 04/20/2023 14:20 Estimated GFR Creatinine 122 ML/MIN/1.73 M2 ()?? 04/20/2023 14:20 Calcium 9.2 mg/dL ()?? 04/20/2023 14:20 Magnesium 1.9 mg/dL ()?? 04/20/2023 14:20 Protein, Total 8.0 Gm/dL ()?? 04/20/2023 14:20 Albumin 4.9 Gm/dL (High)?? 04/20/2023 14:20 AG Ratio 1.6 ()?? 04/20/2023 14:20 Alkaline Phosphatase 67 units/L ()?? 04/20/2023 14:20 Lipase 24 units/L ()?? 04/20/2023 14:20 AST (SGOT) 28 units/L ()?? 04/20/2023 14:20 ALT (SGPT) 33 units/L ()?? 04/20/2023 14:20 Bilirubin, Total 0.4 mg/dL ()?? 04/20/2023 14:20 ?? HEME OTHER Hold Blue Top SPECIMEN DISCARDED AFTER 4 HOURS. ()?? 04/20/2023 14:20 ?? MISC. CHEMISTRY Hold Green Top SPECIMEN DISCARDED AFTER 1 WEEK ()?? 04/20/2023 14:20 Hold Gel Top SPECIMEN DISCARDED AFTER 1 WEEK ()?? 04/20/2023 14:20 Hold Cardoza Top SPECIMEN DISCARDED AFTER 1 WEEK ()?? 04/20/2023 14:20 ?? TOXICOLOGY/TDM Ethanol, Serum or Plasma 241 mg/dL (Abnormal)?? 04/20/2023 14:20 Barbiturate Screen, Urine NONE DETECTED ()?? 04/20/2023 14:00 Cannabinoid Screen, Urine POSITIVE (Abnormal)?? 04/20/2023 14:00 Cocaine Metabolite Screen, Urine NONE DETECTED ()?? 04/20/2023 14:00 Benzodiazepine Screen, Urine NONE DETECTED ()?? 04/20/2023 14:00 Amphetamine Screen, Urine NONE DETECTED ()?? 04/20/2023 14:00 Opiate Screen, Urine NONE DETECTED ()?? 04/20/2023 14:00 ?? URINE OTHER Est Creatinine Clearance 138.45 mL/min ()?? 04/20/2023 14:50 ? Hospital Progress note * Jayjay Davis RN: PERFORM, SIGN, VERIFY Event Display: Progress Note Hospital Authored Date: [id number] Patient: JULIOCESAR COLÓN Age: 37 years Sex: Male : 1985 Associated Diagnoses: None Author: Jayjay Davis RN Findings Problem Related to Alteration in Psychosocial : Alteration in Psychosocial Function/new 04/23/2023 22:05 EST Alteration in Psychosocial Related to Acute Alcohol Withdrawal Goals & Outcomes, Psychosocial Pt successfully withdraws with minimal side effects, Pt will be free from withdrawal symptoms Interventions, Psychosocial Assess psychosocial needs, Assess readiness to learn needed lifestyle changes, Assess/monitor level of consciousness, Collaborate with provider for psychiatric consult, Evaluate resources & support system available to pt, Offer support; discuss coping strategies, Provide a calm, supportive environment Goals/Interventions, Psychosocial Yes Psychosocial, Problem Start 04/21/2023 22:27 Reviewed Plan with, Psychosocial Patient Patient Progression, Psychosocial Pt progressing according to plan . Narrative/Incidental Patient is AO x4 and able to verbalize his needs. No c/o pain. No signs of distress. Patient is resting quietly. Bed in lowest position/call light in hand/non skid socks on for safety. . * Phyllis Wong RN: PERFORM, SIGN, VERIFY Event Display: Progress Note Hospital Authored Date: Patient: JULIOCESAR COLÓN Age: 37 years Sex: Male : 1985 Associated Diagnoses: None Author: Phyllis Wong RN Findings Problem Related to Alteration in Psychosocial : Alteration in Psychosocial Function/new 04/23/2023 18:00 EST Alteration in Psychosocial Related to Acute Alcohol Withdrawal Goals & Outcomes, Psychosocial Pt successfully withdraws with minimal side effects, Pt will be free from withdrawal symptoms Interventions, Psychosocial Assess psychosocial needs, Assess/monitor level of consciousness, Provide a calm, supportive environment, Provide chances to express concerns/emotions/expectations Goals/Interventions, Psychosocial Yes Psychosocial, Problem Start 04/21/2023 22:27 Reviewed Plan with, Psychosocial Patient Patient Progression, Psychosocial Pt progressing according to plan . Alteration in Safety : Alteration in Safety/new 04/23/2023 18:00 EST Alteration in Safety Related to Other: fall risk Goals & Outcomes, Safety Pt will remain safe & injury free, Pt/caregiver will be offered appropriate resources & support, Pt/caregiver will verbalize understanding of the D/C plan Interventions, Safety Provide teaching as needed Goals/Interventions, Safety Yes Safety, Problem Start 04/21/2023 22:28 Reviewed plan with, Safety Patient Patient Progression, Safety Pt progressing according to plan . 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 Nursing Data Gastrointestinal Data. : Gastrointestinal Data. 04/23/2023 10:57 EST Last Bowel Movement 04/21/2023 GI WNL . Integumentary Data. : Integumentary Data. 04/23/2023 11:00 EST Sensory Perception No impairment Moisture Rarely moist Activity Walks occasionally Mobility Slightly limited Nutrition Adequate Friction and Shear No apparent problem [place] Score 20 Nursing Care Plan initiated/updated Not applicable . Musculoskeletal Data. : Musculoskeletal Data. 04/23/2023 10:57 EST Musculoskeletal WNL . Neurological Data. : Neurological Data. 04/23/2023 10:57 EST Neuro WNL . Respiratory/Pulmonary Data. : Respiratory/Pulmonary Data. 04/23/2023 11:07 EST Respiratory Treatment(s) Cough and deep breathe 04/23/2023 10:57 EST Respiratory WNL . Evaluation Pt here for ETOH withdrawal has been calm and cooperative and resting quietly throughout the day. CIWA scores below 5, pt did not require PRN meds.. * Travis SHAFFER, [facility] PERFORM Event Display: Progress Note Hospital Authored Date: Patient: ??JULIOCESAR COLÓN ? Age:??37 Years?Sex:??Male?:??1985?? Subjective No acute events overnight Patient continues to score high on CIWA protocol received multiple doses of Ativan. Discussed with social work??who saw the patient recommending for section 35 as well. Patient mentions he continues to have withdrawal symptoms Review of Systems Negative except above Objective Vital Signs?? Temperature: 98.4 DegF (04/22/23 15:37:00) Temperature Route: Oral (04/22/23 15:37:00) Pulse Rate: 89 bpm (04/22/23 15:37:00) Respiratory Rate: 20 br/min (04/22/23 15:37:00) Systolic Blood Pressure: 138 mm Hg (04/22/23 15:37:00) Diastolic Blood Pressure:??95 mm Hg??High (04/22/23 15:37:00) Blood pressure sites: Arm, left (04/22/23 15:37:00) Mean Arterial Pressure: 109 mm Hg (04/22/23 15:37:00) Pulse Pressure: 43 mm Hg (04/22/23 15:37:00) Oxygen Saturation: 100 % (04/22/23 15:37:00) Mode of Delivery (Oxygen): Room air (04/22/23 15:37:00) Early Warning Score: 3 (04/22/23 15:38:21) ? Intake/Output? 04/20 15:04 04/22 07:00 04/21 07:00 04/20 07:00 04/19 07:00 ?? 04/22 16:33 04/22 16:33 04/22 06:59 04/21 06:59 04/20 06:59 Intake ? 2420 ?980 ? 1440 ?0 ?0 Output ? 3825 ? 2825 ? 1000 ?0 ?0 Net Total ?-1405 ?-1845 ?440 ?0 ?0 ? Urine Count ?1 ?0 ?1 ?0 ?0 ? Therapeutic Activity Therapeutic Activities/Mobility/Balance?? No qualifying data available. ? Physical Exam Constitutional: Alert, in no distress. Oriented??x 3 Respiratory: Clear to auscultation. No wheezing, rales or rhonchi. Cardiovascular: S1 S2 regular. No murmurs,??no pitting edema Gastrointestinal: Abdomen soft, no abdominal tenderness, non-distended. Normal bowel sounds. Neurologic: Moving all extremities, significant tremors when extending the hands Psychiatric: Normal mood and affect. ??Seems very anxious _ Inpatient Medications Medications (18) Active SCHEDULED: (9) Folic Acid 1 mg Tablet (Folic Acid Tablet) ??1 mg, By Mouth, Daily Multivitamin Tablet ??1 tablet, By Mouth, Daily NaCl 0.9% Flush 3ml (NaCL 0.9% Flush) ??3 mL, IV Push, Every 8 hours Pantoprazole 20 mg EC Tablet (Protonix 20 mg oral delayed release tablet) ??20 mg, By Mouth, Daily Phenobarbital 30 mg Tablet (PHENobarbital 30 mg oral tablet) ??60 mg, By Mouth, 2 times a day Phenobarbital 30 mg Tablet (PHENobarbital 30 mg oral tablet) ??30 mg, By Mouth, 2 times a day Phenobarbital 30 mg Tablet (PHENobarbital 30 mg oral tablet) ??30 mg, By Mouth, Daily Pyridoxine 50 mg Tablet (Pyridoxine Tablet) ??50 mg, By Mouth, Daily Thiamine 100 mg Tablet (Thiamine Tablet) ??100 mg, By Mouth, 2 times a day CONTINUOUS: (0) PRN: (9) Acetaminophen 325 mg Tablet (Tylenol 325 mg oral tablet) ??650 mg, By Mouth, Every 6 hours Al hydroxide/Mg hydroxide/simethicone 200 mg-200 mg-20 mg/5 mL Susp UD (Maalox Plus Liquid) ??15 mL, By Mouth, 4 times a day Calcium Carbonate 500 mg (Calcium 200 mg) Chewable Tablet (calcium carbonate 500 mg (200 mg elemental calcium) oral tablet, chewable) ??500 mg 1 tablet, Chew, Every 4 hours Lorazepam 2 mg Inj Syringe (Ativan Inj) ??1 mg, IV Push Slowly, Every 2 hours Lorazepam 2 mg Inj Syringe (Ativan Inj) ??2 mg, IV Push Slowly, Every 2 hours Lorazepam 2 mg Inj Syringe (Ativan Inj) ??2 mg, IV Push Slowly, Every hour Melatonin 3 mg Tablet (Melatonin Tablet) ??6 mg, By Mouth, Daily at bedtime Sodium Chloride 0.65% Nasal [place] (Salinex [place]) ??1 sprays, Nares, Both, 4 times a day Trazodone 50 mg Tablet (traZODone 50 mg oral tablet) ??50 mg, By Mouth, Daily at bedtime ? Results Recent Labs BLOOD COUNT & DIFF WBC 3.5 k/mm3 (Low)?? 04/22/2023 05:34 RBC 4.52 m/mm3 (Low)?? 04/22/2023 05:34 Hgb 12.7 Gm/dL (Low)?? 04/22/2023 05:34 Hct 37.0 % (Low)?? 04/22/2023 05:34 MCV 81.9 femtoliters ()?? 04/22/2023 05:34 MCH 28.1 pg ()?? 04/22/2023 05:34 MCHC 34.3 g/dL ()?? 04/22/2023 05:34 Platelet Count 151 k/mm3 ()?? 04/22/2023 05:34 RDW-SD 42.8 femtoliters ()?? 04/22/2023 05:34 MPV 10.6 femtoliters ()?? 04/22/2023 05:34 Nucleated RBC (Automated) 0.0 #/100 WBC'S ()?? 04/22/2023 05:34 Abs. NRBC 0.0 k/mm3 ()?? 04/22/2023 05:34 ?? CHEM GENERAL Sodium 137 mmol/L ()?? 04/22/2023 05:34 Potassium 3.7 mmol/L ()?? 04/22/2023 05:34 Chloride 99 mmol/L ()?? 04/22/2023 05:34 Bicarbonate Level 26 mmol/L ()?? 04/22/2023 05:34 Anion Gap 12 ()?? 04/22/2023 05:34 Glucose Level 108 mg/dL (High)?? 04/22/2023 05:34 BUN 10 mg/dL ()?? 04/22/2023 05:34 Creatinine-Blood 0.8 mg/dL ()?? 04/22/2023 05:34 Estimated GFR Creatinine 117 ML/MIN/1.73 M2 ()?? 04/22/2023 05:34 Calcium 9.5 mg/dL ()?? 04/22/2023 05:34 Phosphorus 3.4 mg/dL ()?? 04/22/2023 05:34 Magnesium 1.9 mg/dL ()?? 04/22/2023 05:34 ?? URINE OTHER Est Creatinine Clearance 121.15 mL/min ()?? 04/21/2023 06:07 ? Assessment/Plan Assessment:??Alcohol withdrawal (F10.939): . Alcohol use disorder, severe, dependence (F10.20): Longstanding history of alcohol dependence with prior admissions for alcohol withdrawal, presents with an alcohol level of 241 and exam quite consistent with acute alcohol withdrawal. Mildly tachycardic and hypertensive. Denies ever having alcohol withdrawal seizure in the past Per patient's request we have started on phenobarb protocol. Patient had approximately??spend??200 days in the last 1 year??at rehab??of which??150 days were part of section 35. Continues to score high on CIWA protocol however??denies any??hallucinations. ??Plan ?Continue??CIWA with lorazepam and clonidine ??? Continue phenobarb protocol ?If signs of hallucination, [place] [facility] [place]. If patient is started on Precedex??he will need to be continued on??phenobarb protocol with scheduled doses. ??- seizure precautions ??? Daily folic acid, thiamine, multivitamin, pyridoxine ??? Continuous cardiac monitoring ??? Encourage oral fluid intake ??? Strict fall precautions ??? Social work consult- does express desire to achieve sobriety. Per SW will need section 35 at discharge ??- consider restarting Vivitrol prior to discharge - PT expressing difficulty getting injection asoutpt ??- continue home PPI ? Metabolic acidosis (E87.20): Mildly acidotic on arrival in the setting of chronic alcohol intake. Resolved ? Essential Hypertension (I10): appears he was on amlodipine at one point but not compliant with outpt medications - mild hypertension on arrival but now started on clonidine ??Plan ??-hold on starting additional agents for now - continue clonidine per CIWA - may need additional agent on discharge ? Moderate recurrent major depression (F33.1): per claim HX not compliant with Trazadone, bupropion or fluoxetine as he is not picked up these prescriptions in quite some time. ??Plan ??- hold on restarting for now, continue Lorazepam with CIWA and consider restarting single agent on discharge- will need to re-taper dosing of antidepressant agents as outpt - PCP follow up ??- will restart home trazodone at ? VTE Prophylaxis: compression boots / ambulation ? VTE Prophylaxis Assessment: Risk Level documented as Low Risk ? Code Status: Full ? Order Code Status: Code Status Ordered ?? Ongoing Medical Necessity:??Scoring high on CIWA, Alcohol withdrawal ?? Discharge Planning:??Pending clinical course ? Note * Jocelyne Louis RN: PERFORM Event Display: Discharge/Transfer Note Hospital Authored Date: Nursing Discharge Note Entered On: 04/24/2023 10:46 EST Performed On: 04/24/2023 10:45 EST by Jocelyne Louis RN Nursing Discharge Note 2 Discharge Time : 04/24/2023 10:45 EST Discharge Level of Care at Discharge : Home/Long-Term/Foster Care Patient Left Unit Via : Ambulatory Patient Accompanied Off Unit with : Other: Staff DC Instructions Provided & Signed by Pt : Yes Patient Understands D/C Instructions : Yes Patient Instructions Discharge Signed : Yes Did Pt have Specialty Bed or Wound Vac : No Jocelyne Lousi RN - 04/24/2023 10:45 EST * Sunitha Cary MD: PERFORM Event Display: Discharge/Transfer Note Hospital Authored Date: Patient: ??JULIOCESAR COLÓN ? Age:??37 Years?Sex:??Male?:??1985?? Patient Information Discharge Location: [facility] Primary Care Physician: Not on Staff, PCP Admit Date/Time: 04/20/23 15:04 Discharge Disposition Discharge Disposition: ?? Discharge Diagnosis Alcohol withdrawal (F10.939) Alcohol use disorder, severe, dependence (F10.20) Metabolic acidosis (E87.20) Essential Hypertension (I10) Moderate recurrent major depression (F33.1) Essential Hypertension ?? _ Discharge Medications Acamprosate (acamprosate 333 mg oral delayed release tablet)?2?tab(s)?666?Milligram?By Mouth?3 times a day BusPIRone (busPIRone 30 mg oral tablet)?1?tab(s)?30?Milligram?By Mouth?2 times a day Fluoxetine (FLUoxetine 20 mg oral capsule)?40?Milligram?2?capsule?By Mouth?Daily Folic Acid (folic acid 1 mg oral tablet)?1?Milligram?By Mouth?Daily HydrOXYzine (hydrOXYzine hydrochloride 25 mg oral tablet)?1?tab(s)?25?Milligram?By Mouth?4 times a day?as needed?as needed for anxiety?for 7?Days Lorazepam (Ativan 0.5 mg oral tablet)?1?tab(s)?0.5?Milligram?By Mouth?2 times a day?for 3?Days Multivitamin (multivitamin Multiple Vitamins oral capsule)?1?capsule?By Mouth?Daily Pantoprazole (Protonix 20 mg oral delayed release tablet)?1?tab(s)?20?Milligram?By Mouth?Daily Thiamine (thiamine 100 mg oral tablet)?100?Milligram?By Mouth?Daily?for 14?Days Trazodone (traZODone 50 mg oral tablet)?50?Milligram?1?tablet?By Mouth?Daily at bedtime ? Medications Started prn ativan 2 ays ?? Medications Discontinued wellbutrin not taking Allergies Allergies ?(Active and Proposed Allergies Only) NKA? (Severity: Unknown severity, Onset: Unknown) ? PCP Follow-Up/Heads-Up etoh use disorder Hospital Course ??37-year-old male with past medical history of alcohol dependence with prior admissions for??alcohol withdrawal, denies ever having alcohol withdrawal seizure in the past, hypertension and depression presents to the emergency department with chief complaint of alcohol withdrawal type symptoms ?? Alcohol withdrawal (F10.939): . Alcohol use disorder, severe, dependence (F10.20): Longstanding history of alcohol dependence with prior admissions for alcohol withdrawal, presents with an alcohol level of 241 and exam quite consistent with acute alcohol withdrawal. Mildly tachycardic and hypertensive. Denies ever having alcohol withdrawal seizure in the past Per patient's request we have started on phenobarb protocol. Patient had approximately??spend??200 days in the last 1 year??at rehab??of which??150 days were part of section 35. Continues to score high on CIWA protocol however??denies any??hallucinations. ??Plan ?Continued on??CIWA with lorazepam and clonidine,??received phenobarb protocol much better CIWA < 5 for 48 hr ? Daily folic acid, thiamine, multivitamin, pyridoxine ??? Social work consult- does express desire to achieve sobriety.?? Per manager social work, patient has outpatient program that he has been attending and can get into inpatient rehab from there, patient also aware of it,??holding off section 35 at this time, patient has agood support system outpatient ? Metabolic acidosis (E87.20): Mildly acidotic on arrival in the setting of chronic alcohol intake. Resolved ? Essential Hypertension (I10): appears he was on amlodipine at one point but not compliant with outpt medications - mild hypertension on arrival but now started on clonidine BP improved after ONEIL improved ? Moderate recurrent major depression (F33.1): per claim HX not compliant with Trazadone, bupropion or fluoxetine as he is not picked up these prescriptions in quite some time. He reported to me that he is taking trazodone fluoxetine not taking wellbutrin ?? feels wel, got vivitro, shot Objective Assessment and Plan ? Vital Signs?? Temperature: 98.1 DegF (04/24/23 07:55:00) Temperature Route: Oral (04/24/23 07:55:00) Pulse Rate: 66 bpm (04/24/23 07:55:00) Respiratory Rate:??14 br/min??Low (04/24/23 07:55:00) Systolic Blood Pressure:??143 mm Hg??High (04/24/23 07:55:00) Diastolic Blood Pressure: 80 mm Hg (04/24/23 07:55:00) Blood pressure sites: Arm, left (04/24/23 07:55:00) Mean Arterial Pressure: 101 mm Hg (04/24/23 07:55:00) Pulse Pressure: 63 mm Hg (04/24/23 07:55:00) Oxygen Saturation: 99 % (04/24/23 07:55:00) Mode of Delivery (Oxygen): Room air (04/24/23 07:55:00) Early Warning Score: 0 (04/24/23 07:56:38) ? . Physical Exam NAD HEENT: no icterus, mucosa moist Resp: CTABL , No rales/ wheezes/ ronchi CVS: RRR, No JVD, No Gallop or murmur ABD: soft, NT, ND, NABS Extm : no edema, PP 2+ CARRIER WASHER: Alert Ox 3, no focal deficits?? mood : calm cooperative?? Skin: No rash. Warm to touch Pending Results No Pending Results Patient Education Titles Lorazepam Oral Tablet?? Naltrexone Oral Tablet?? Alcohol Withdrawal?? Follow-Up Appointments Added Follow Up ?Time Frame ?Comments PCP Not on Staff Post Discharge Care Discharge ?04/24/23 9:29:00 EST Discharge Prescriptions ?ePrescribed, 04/24/23 9:29:00 EST Home Health Face to Face ^HomeHealth[facility] Results Discharge Labs BLOOD COUNT & DIFF WBC 3.5 k/mm3 (Low)?? 04/22/2023 05:34 RBC 4.52 m/mm3 (Low)?? 04/22/2023 05:34 Hgb 12.7 Gm/dL (Low)?? 04/22/2023 05:34 Hct 37.0 % (Low)?? 04/22/2023 05:34 MCV 81.9 femtoliters ()?? 04/22/2023 05:34 MCH 28.1 pg ()?? 04/22/2023 05:34 MCHC 34.3 g/dL ()?? 04/22/2023 05:34 Platelet Count 151 k/mm3 ()?? 04/22/2023 05:34 RDW-SD 42.8 femtoliters ()?? 04/22/2023 05:34 MPV 10.6 femtoliters ()?? 04/22/2023 05:34 Nucleated RBC (Automated) 0.0 #/100 WBC'S ()?? 04/22/2023 05:34 Abs. NRBC 0.0 k/mm3 ()?? 04/22/2023 05:34 Abs. Neut 4.2 k/mm3 ()?? 04/20/2023 14:20 Abs. Lymph 1.7 k/mm3 ()?? 04/20/2023 14:20 Abs. George 0.6 k/mm3 ()?? 04/20/2023 14:20 Abs. Eo 0.0 k/mm3 ()?? 04/20/2023 14:20 Abs. Baso 0.1 k/mm3 ()?? 04/20/2023 14:20 Neut % 63.3 % ()?? 04/20/2023 14:20 Lymph % 25.8 % ()?? 04/20/2023 14:20 George % 9.0 % ()?? 04/20/2023 14:20 Eos % 0.5 % ()?? 04/20/2023 14:20 Baso % 1.1 % ()?? 04/20/2023 14:20 Imm Gran 0.3 % ()?? 04/20/2023 14:20 Abs. Imm Gran 0.0 k/mm3 ()?? 04/20/2023 14:20 ?? CHEM GENERAL Sodium 137 mmol/L ()?? 04/23/2023 09:29 Potassium 4.1 mmol/L ()?? 04/23/2023 09:29 Chloride 98 mmol/L ()?? 04/23/2023 09:29 Bicarbonate Level 28 mmol/L ()?? 04/23/2023 09:29 Anion Gap 11 ()?? 04/23/2023 09:29 Glucose Level 108 mg/dL (High)?? 04/22/2023 05:34 BUN 10 mg/dL ()?? 04/22/2023 05:34 Creatinine-Blood 0.8 mg/dL ()?? 04/22/2023 05:34 Estimated GFR Creatinine 117 ML/MIN/1.73 M2 ()?? 04/22/2023 05:34 Calcium 9.5 mg/dL ()?? 04/22/2023 05:34 Phosphorus 3.4 mg/dL ()?? 04/22/2023 05:34 Magnesium 2.3 mg/dL ()?? 04/23/2023 09:29 Protein, Total 8.0 Gm/dL ()?? 04/20/2023 14:20 Albumin 4.9 Gm/dL (High)?? 04/20/2023 14:20 AG Ratio 1.6 ()?? 04/20/2023 14:20 Alkaline Phosphatase 67 units/L ()?? 04/20/2023 14:20 Lipase 24 units/L ()?? 04/20/2023 14:20 AST (SGOT) 28 units/L ()?? 04/20/2023 14:20 ALT (SGPT) 33 units/L ()?? 04/20/2023 14:20 Bilirubin, Total 0.4 mg/dL ()?? 04/20/2023 14:20 ?? HEME OTHER Hold Lavender Top SPECIMEN DISCARDED AFTER 24 HOURS. ()?? 04/23/2023 09:29 Hold Blue Top SPECIMEN DISCARDED AFTER 4 HOURS. ()?? 04/20/2023 14:20 ?? MISC. CHEMISTRY Hold Green Top SPECIMEN DISCARDED AFTER 1 WEEK ()?? 04/20/2023 14:20 Hold Gel Top SPECIMEN DISCARDED AFTER 1 WEEK ()?? 04/20/2023 14:20 Hold Cardoza Top SPECIMEN DISCARDED AFTER 1 WEEK ()?? 04/20/2023 14:20 ? TOXICOLOGY/TDM Ethanol, Serum or Plasma 241 mg/dL (Abnormal)?? 04/20/2023 14:20 Barbiturate Screen, Urine NONE DETECTED ()?? 04/20/2023 14:00 Cannabinoid Screen, Urine POSITIVE (Abnormal)?? 04/20/2023 14:00 Cocaine Metabolite Screen, Urine NONE DETECTED ()?? 04/20/2023 14:00 Benzodiazepine Screen, Urine NONE DETECTED ()?? 04/20/2023 14:00 Amphetamine Screen, Urine NONE DETECTED ()?? 04/20/2023 14:00 Opiate Screen, Urine NONE DETECTED ()?? 04/20/2023 14:00 ? URINE OTHER Est Creatinine Clearance 121.15 mL/min ()?? 04/21/2023 06:07 ? 35??minutes spent on discharge * Angela Thomas: PERFORM Event Display: Patient Education/Instruction Authored Date: [id number] Inpatient Adult Discharge Instructions [address] [address] Name: JULIOCESAR COLÓN : 1985 Visit: 04/20/2023 15:04:00 Current Date: 04/24/2023 09:49 Account: [id number] Inpatient Adult Discharge Instructions We would like [...] and their families. Surveys are administered by [employer] ?? If further treatment with your primary care physician or another doctor is recommended, it is important for you to keep the appointment. Call your primary care physician or return to the Emergency Department immediately if your condition worsens, fails to improve, or new symptoms develop. If you need to find a doctor, you can call [facility] for a referral at [phone] or toll free at [phone] or log in to [email or web address] ?? [facility], in keeping with [facility] guidance, no longer requires face masks [...] a health care primo of your choosing. [employer] is a website that allows you to securely view your medical information including your hospital discharge summary, office visit summaries, medications and follow-up visits. You can also request appointments, renew medications, and request access to your medical information using a health care primo of your choosing, or just ask a question. You can enroll at [email or web address] or register during your next office visit. You have been discharged from [facility], Patient Care Unit: Med Surg. If you have any questions regarding these instructions after you leave, please call us and we will be happy to assist you. [facility] Your Care Team Attending Physician Sunitha Cary MD Discharging Providers Raeann SHAFFER, Sunitha Reason for Admission etoh, with hx, ??outpt rehab, vee x several days looking for help. ??has severe anxiety, ??? withdrawals, ??Last drink last pm. ??pt receives vivitrol injections missed his last dose x 3 weeks ago. ??vodka x 3 days and beer. ??No daily meds x days Your Diagnosis Alcohol withdrawal Alcohol use disorder, severe, dependence Essential Hypertension Moderate recurrent major depression Metabolic acidosis Tests Performed Below is a partial list of the tests performed during your hospitalization. You may have had other tests and procedures not included in this list. Please discuss all test results with your provider. Alcohol Level Amphetamine Urine Screen Barbiturate Urine Screen Basic Metabolic Panel Benzodiazepine Urine Screen Cannabinoid Urine Screen CBC CBC w/ Differential Cocaine Urine Screen Comprehensive Metabolic Panel Electrolytes HOLD BLUE TUBE HOLD GEL TUBE HOLD CARDOAZ TUBE HOLD GREEN TUBE HOLD LAVENDER TUBE Lipase Magnesium Level Opiate Screen Urine Phosphorus Level Primary Care Provider Not on Staff, PCP Advance Directive Health Care Proxy on File Yes - Health Care Proxy Discharge Vitals Temperature: 98.1 DegF Height: 172 cm Pulse Rate: 66 bpm Weight: 78.5 kg Respiratory Rate:??14 br/min??Low Body Mass Index:??26.53 kg/m2??High Systolic Blood Pressure:??143 mm Hg??High Body surface area: 1.94 Diastolic Blood Pressure: 80 mm Hg ?? Oxygen Saturation: 99 % ?? Studies Pending All tests and labs ordered during this hospital stay have been completed unless listed below. Please discuss all pending results with your provider listed above in these instructions. ?? No incomplete studies found What to do next Instructions From Your Doctor Discharge Orders You Need to Schedule the Following Appointments Follow Up with??PCP Not on Staff Discharge Medications JULIOCESAR COLÓN :1985 Visit Date:04/20/2023 Medications: Please continue your medications until treatment is completed or stopped by your provider. Medications not listed below should be discontinued. Discuss any questions related to medications with your provider. What How Much When Instructions Next Dose New HydrOXYzine (hydrOXYzine hydrochloride 25 mg oral tablet) 1 tab(s) Oral 4 times a day as needed for as needed for anxiety Duration: 7 Days Pickup at [facility] As Needed New Lorazepam (Ativan 0.5 mg oral tablet) 1 tab(s) Oral Twice a day Duration: 3 Days Pickup at [facility] Start Today New Naltrexone (naltrexone 50 mg oral tablet) 1 tab(s) Oral Daily Duration: 30 Days Pickup at [facility] Start tonight New Thiamine (thiamine 100 mg oral tablet) 100 Milligram Oral Daily Duration: 14 Days Pickup at [facility] 04/25 AM Unchanged Acamprosate (acamprosate 333 mg oral delayed release tablet) 2 tab(s) Oral 3 times a day 2 more times today Unchanged BuPROpion (buPROPion 100 mg oral tablet) 100 Milligram Oral Twice a day 04/24 bedtime Unchanged BusPIRone (busPIRone 30 mg oral tablet) 1 tab(s) Oral Twice a day 04/24 bedtime Unchanged Fluoxetine (FLUoxetine 20 mg oral capsule) 2 capsule Oral Daily 04/24 bedtime Unchanged Folic Acid (folic acid 1 mg oral tablet) 1 Milligram Oral Daily 04/25 AM Unchanged Multivitamin (multivitamin Multiple Vitamins oral capsule) 1 capsule Oral Daily 04/25 AM Unchanged Pantoprazole (Protonix 20 mg oral delayed release tablet) 1 tab(s) Oral Daily 04/25 AM Unchanged Trazodone (traZODone 50 mg oral tablet) 1 tab(s) Oral Daily at Bedtime 04/24 bedtime Pharmacy Information [facility]: [address] [place] [address] [phone] Test Results Below is a partial list of the most recent Laboratory test results done prior to this discharge. You may have had other tests and procedures not included in this list. Please discuss all test resultswith your provider. Est Creatinine Clearance - 121.15 mL/min (04/21/2023) Alcohol Level (04/20/2023) ???Ethanol, Serum or Plasma - 241 mg/dL Amphetamine Urine Screen (04/20/2023) ???Amphetamine Screen, Urine - NONE DETECTED Barbiturate Urine Screen (04/20/2023) ???Barbiturate Screen, Urine - NONE DETECTED Basic Metabolic Panel (04/22/2023) ???Sodium - 137 mmol/L???Potassium - 3.7 mmol/L???Chloride - 99 mmol/L???Bicarbonate Level - 26 mmol/L???Anion Gap - 12???Glucose Level - 108 mg/dL???BUN - 10 mg/dL???Creatinine-Blood - 0.8 mg/dL???Estimated GFR Creatinine - 117 ML/MIN/1.73 M2???Calcium - 9.5 mg/dL Benzodiazepine Urine Screen (04/20/2023) ???Benzodiazepine Screen, Urine - NONE DETECTED Cannabinoid Urine Screen (04/20/2023) ???Cannabinoid Screen, Urine - POSITIVE CBC (04/22/2023) ???WBC - 3.5 k/mm3???RBC - 4.52 m/mm3???Hgb - 12.7 Gm/dL???Hct - 37.0 %???MCV - 81.9 femtoliters???MCH - 28.1 pg???MCHC - 34.3 g/dL???Platelet Count - 151 k/mm3???RDW-SD - 42.8 femtoliters???MPV - 10.6 femtoliters???Nucleated RBC (Automated) - 0.0 #/100 WBC'S???Abs. NRBC - 0.0 k/mm3 CBC w/ Differential (04/20/2023) ???WBC - 6.7 k/mm3???RBC - 5.43 m/mm3???Hgb - 15.1 Gm/dL???Hct - 44.9 %???MCV - 82.7 femtoliters???MCH - 27.8 pg???MCHC - 33.6 g/dL???Platelet Count - 237 k/mm3???RDW-SD - 44.3 femtoliters???MPV - 9.8 femtoliters???Nucleated RBC (Automated) - 0.0 #/100 WBC'S???Abs. NRBC - 0.0 k/mm3???Abs. Neut - 4.2 k/mm3???Abs. Lymph - 1.7 k/mm3???Abs. George - 0.6 k/mm3???Abs. Eo - 0.0 k/mm3???Abs. Baso - 0.1 k/mm3???Neut % - 63.3 %???Lymph % - 25.8 %???George % - 9.0 %???Eos % - 0.5 %???Baso % - 1.1 %???Imm Gran- 0.3 %???Abs. Imm Gran - 0.0 k/mm3 Cocaine Urine Screen (04/20/2023) ???Cocaine Metabolite Screen, Urine - NONE DETECTED Comprehensive Metabolic Panel (04/20/2023) ???Sodium - 139 mmol/L???Potassium - 4.0 mmol/L???Chloride - 95 mmol/L???Bicarbonate Level - 21 mmol/L???Anion Gap - 23???Glucose Level - 86 mg/dL???BUN - 14 mg/dL???Creatinine-Blood - 0.7 mg/dL???Estimated GFR Creatinine - 122 ML/MIN/1.73 M2???Calcium - 9.2 mg/dL???Protein, Total - 8.0 Gm/dL???Albu min - 4.9 Gm/dL???AG Ratio - 1.6???Alkaline Phosphatase - 67 units/L???AST (SGOT) - 28 units/L???ALT (SGPT) - 33 units/L???Bilirubin, Total - 0.4 mg/dL Electrolytes (04/23/2023) ???Sodium - 137 mmol/L???Potassium - 4.1 mmol/L???Chloride - 98 mmol/L???Bicarbonate Level - 28 mmol/L???Anion Gap - 11 HOLD BLUE TUBE (04/20/2023) ???Hold Blue Top - SPECIMEN DISCARDED AFTER 4 HOURS. HOLD GEL TUBE (04/20/2023) ???Hold Gel Top - SPECIMEN DISCARDED AFTER 1 WEEK HOLD CARDOZA TUBE (04/20/2023) ???Hold Cardoza Top - SPECIMEN DISCARDED AFTER 1 WEEK HOLD GREEN TUBE (04/20/2023) ???Hold Green Top - SPECIMEN DISCARDED AFTER 1 WEEK HOLD LAVENDER TUBE (04/23/2023) ???Hold Lavender Top - SPECIMEN DISCARDED AFTER 24 HOURS. Lipase (04/20/2023) ???Lipase - 24 units/L Magnesium Level (04/23/2023) ???Magnesium - 2.3 mg/dL Opiate Screen Urine (04/20/2023) ???Opiate Screen, Urine - NONE DETECTED Phosphorus Level (04/22/2023) ???Phosphorus - 3.4 mg/dL Allergies (NKA means No Known Allergies) NKA Problems Active Problems??(9) Alcohol use disorder, severe, dependence?? Alcohol withdrawal?? Alcoholism?? Essential Hypertension?? Fatty liver us 2020?? Hyperlipidemia?? Impaired fasting glucose?? Metabolic acidosis?? Moderate recurrent major depression?? Education Materials Below is the list of Educational Leaflet Providered with your Discharge Instructions. Naltrexone Oral Tablet?? Alcohol Withdrawal?? Valuables and Belongings I fully understand and agree that [facility] accepts no responsibility for all my [...] patient Date for Pt to Sign Valuables/Belongings: 04/21/23 21:04:00 ?? Other Discharge Information ? Pulmonary Rehab Status?? Pulmonary Rehab Discharge Status?? Respiratory Rate:??14 br/min??Low ? Common Emergency Awareness Tips IS IT [...] are strongly encouraged to quit. Please call [facility] O2 Secure Wireless Link at [phone] or [phone] ([phone]) or log in to [email or web address] for referrals to smoking cessation programs. ?? 985 Suicide & Crisis Lifeline is available 22/12 if you or someone you know needs to find a reason to keep living. By calling 667 you'll be connected to a skilled, trained counselor at a crisis center in your area. INPATIENT DISCHARGE INSTRUCTIONS SIGNATURE PAGE COLÓNJULIOCESAR HOLLOWAY Location:[facility] Registration Date and Time:04/20/2023 15:04 EST Primary Care Physician: Not on Staff, PCP Attending Physician: Raeann SHAFFER, [facility], I JULIOCESAR COLÓN, have received the above patient education materials/instructions and have verbalized understanding. If ambulance or transport services are being used I further acknowledge being given a choice of service. ?? If you need to contact me, please call me at this number: . Patient/Turf And Grounds Supervisor Name: Patient/Turf And Grounds Supervisor Signature: Relationship to Patient: Witness Name/Signature: Date: * Angela Thomas: PERFORM Event Display: Patient Education Leaflets Authored Date: [id number] Lorazepam Oral Tablet ?? [id number] Lorazepam Oral Tablet Brands: Ativan Uses This medicine is used for the following purposes: ??? alcohol withdrawal ??? anxiety ??? bipolar disorder ??? movement disorder ??? muscle spasms ??? nausea and vomiting ??? sleeping ?? Instructions This medicine may be taken with or without food. Keep the medicine at room temperature. Avoid heat and direct light. If you are using this medicine regularly, [...] about all medicines taken. Include prescription and yird-drc-opfqica medicines, vitamins, and herbal medicines. Speak with your doctor or pharmacist before starting or stopping any medicine. Tell your doctor if symptoms do not get better or if they get worse. Keep all appointments for medical exams and tests while on this medicine. ?? Cautions Though it helps many [...] know how this medicine will affect you. This medicine passes into breast milk. Ask your doctor before . This medicine can hurt a new baby in the womb. If you become while on this medicine, tell your doctor immediately. Your doctor may switch you to a different medicine. Call your doctor right away if you notice slow or shallow breathing. Do not share this medicine with anyone [...] experience these or other side effects. ??? constipation ??? dizziness or drowsiness ??? nausea ??? blurring or changes of vision If you have any of the following side effects, you may be getting too much medicine. Please contactyour doctor to let them know about these side effects. ??? loss of balance ??? confusion ??? unusual or unexplained tiredness or weakness Call your doctor or get medical help right away if you notice any of these more serious side effects: ??? agitated feeling or trouble sleeping ??? decreased awareness or responsiveness ??? shallow, irregular breathing ??? fainting ??? hallucinations (unusual thoughts, seeing or hearing things that are not real) ??? mood changes ??? muscle weakness ??? seizures ??? shortness of breath A few people may have an allergic reaction to this medicine. Symptoms can include difficulty breathing, skin rash, itching, swelling, or severe dizziness. If you notice any of these symptoms, seek medical help quickly. ?? Extra Please speak with your doctor, nurse, or pharmacist if you have any questions about this medicine. ?? [email or web address] IMPORTANT NOTE: This document tells you briefly how to take your medicine, but it does not tell youall there is to know about it. Your doctor or pharmacist may give you other documents about your medicine. Please talk to them if you have any questions. Always follow their advice. There is a more complete description of this medicine available in Sinhala. Scan this code on your smartphone or tablet or use the web address below. You can also ask your pharmacist for a printout. If you have any questions, please ask your pharmacist. The display and use of this drug information is subject to Terms of Use. Copyright(c) 2022 [employer]. ?? [employer]. All rights reserved. This information is not intended as a substitute for professional medical care. Always follow your healthcare professional's instructions. ?? * Raeann SHAFFER, Sunitha: PERFORM Event Display: Discharge/Transfer Note Hospital Authored Date: Patient: ??JULIOCESAR COLÓN ? Age:??37 Years?Sex:??Male?:??1985?? Patient Information Discharge Location: Med Surg Primary Care Physician: Not on Staff, PCP Admit Date/Time: 04/20/23 15:04 Discharge Disposition Discharge Disposition: ?? Discharge Diagnosis Alcohol withdrawal (F10.939) Alcohol use disorder, severe, dependence (F10.20) Metabolic acidosis (E87.20) Essential Hypertension (I10) Moderate recurrent major depression (F33.1) Essential Hypertension ?? _ Discharge Medications Acamprosate (acamprosate 333 mg oral delayed release tablet)?2?tab(s)?666?Milligram?By Mouth?3 times a day BuPROpion (buPROPion 100 mg oral tablet)?100?Milligram?By Mouth?2 times a day BusPIRone (busPIRone 30 mg oral tablet)?1?tab(s)?30?Milligram?By Mouth?2 times a day Fluoxetine (FLUoxetine 20 mg oral capsule)?40?Milligram?2?capsule?By Mouth?Daily Folic Acid (folic acid 1 mg oral tablet)?1?Milligram?By Mouth?Daily HydrOXYzine (hydrOXYzine hydrochloride 25 mg oral tablet)?1?tab(s)?25?Milligram?By Mouth?4 times a day?as needed?as needed for anxiety?for 7?Days Lorazepam (Ativan 0.5 mg oral tablet)?1?tab(s)?0.5?Milligram?By Mouth?2 times a day?for 3?Days Multivitamin (multivitamin Multiple Vitamins oral capsule)?1?capsule?By Mouth?Daily Naltrexone (naltrexone 50 mg oral tablet)?1?tab(s)?50?Milligram?By Mouth?Daily?for 30?Days Pantoprazole (Protonix 20 mg oral delayed release tablet)?1?tab(s)?20?Milligram?By Mouth?Daily Thiamine (thiamine 100 mg oral tablet)?100?Milligram?By Mouth?Daily?for 14?Days Trazodone (traZODone 50 mg oral tablet)?50?Milligram?1?tablet?By Mouth?Daily at bedtime ? Medications Started Hydroxyzine as needed for anxiety Allergies Allergies ?(Active and Proposed Allergies Only) NKA? (Severity: Unknown severity, Onset: Unknown) ? Hospital Course ??37-year-old male with past medical history of alcohol dependence with prior admissions for??alcohol withdrawal, denies ever having alcohol withdrawal seizure in the past, hypertension and depression presents to the emergency department with chief complaint of alcohol withdrawal type symptoms ?? Alcohol withdrawal (F10.939): . Alcohol use disorder, severe, dependence (F10.20): Longstanding history of alcohol dependence with prior admissions for alcohol withdrawal, presents with an alcohol level of 241 and exam quite consistent with acute alcohol withdrawal. Mildly tachycardic and hypertensive. Denies ever having alcohol withdrawal seizure in the past Per patient's request we have started on phenobarb protocol. Patient had approximately??spend??200 days in the last 1 year??at rehab??of which??150 days were part of section 35. Continues to score high on CIWA protocol however??denies any??hallucinations. ??Plan ?Continued on??CIWA with lorazepam and clonidine,??received phenobarb protocol ?If signs of hallucination, [place] need [place] [facility] [place] started on Precedex. If patient is started on Precedex??he will need to be continued on??phenobarb protocol with scheduled doses. ??- seizure precautions ??? Daily folic acid, thiamine, multivitamin, pyridoxine ??? Continuous cardiac monitoring ??? Encourage oral fluid intake ??? Strict fall precautions ??? Social work consult- does express desire to achieve sobriety.?? Per manager social work, patient has outpatient program that he has been attending and can get into inpatient rehab from there, patient also aware of it,??holding off section 35 at this time, patient has agood support system outpatient ?- continue home PPI 04/23 ? Metabolic acidosis (E87.20): Mildly acidotic on arrival in the setting of chronic alcohol intake. Resolved ? Essential Hypertension (I10): appears he was on amlodipine at one point but not compliant with outpt medications - mild hypertension on arrival but now started on clonidine ??Plan ??-hold on starting additional agents for now - continue clonidine per CIWA - may need additional agent on discharge ? Moderate recurrent major depression (F33.1): per claim HX not compliant with Trazadone, bupropion or fluoxetine as he is not picked up these prescriptions in quite some time. He reported to me that he is taking trazodone bupropion and fluoxetine, we would??refill it as needed ?? VTE Prophylaxis: compression boots / ambulation ? VTE Prophylaxis Assessment: Risk Level documented as Low Risk ? Code Status: Full ? Order Code Status: Code Status Ordered ? Discharge held as patient??wants to get??Vivitrol shot before he leaves, discussed with pharmacy, initially patient??did not want to wait??and hence discharge was planned although??now patient wants to wait and get the shot before he leaves ? Objective Assessment and Plan ? Vital Signs?? Temperature: 98.8 DegF (04/23/23 14:00:00) Temperature Route: Oral (04/23/23 14:00:00) Pulse Rate: 83 bpm (04/23/23 14:00:00) Respiratory Rate: 18 br/min (04/23/23 14:00:00) Systolic Blood Pressure: 124 mm Hg (04/23/23 14:00:00) Diastolic Blood Pressure: 81 mm Hg (04/23/23 14:00:00) Blood pressure sites: Arm, right (04/23/23 14:00:00) Mean Arterial Pressure: 86 mm Hg (04/23/23 08:12:00) Pulse Pressure: 56 mm Hg (04/23/23 08:12:00) Oxygen Saturation: 99 % (04/23/23 14:00:00) Mode of Delivery (Oxygen): Room air (04/23/23 14:00:00) Early Warning Score: 3 (04/23/23 14:43:46) ? . Physical Exam NAD HEENT: no icterus, mucosa moist Resp: CTABL , No rales/ wheezes/ ronchi CVS: RRR, No JVD, No Gallop or murmur ABD: soft, NT, ND, NABS Extm : no edema, PP 2+ CARRIER WASHER: Alert Ox 3, no focal deficits?? mood : calm cooperative?? Skin: No rash. Warm to touch Pending Results No Pending Results Follow-Up Appointments Added Follow Up ?Time Frame ?Comments PCP Not on Staff Home Health Face to Face ^HomeHealthFTF Results Discharge Labs BLOOD COUNT & DIFF WBC 3.5 k/mm3 (Low)?? 04/22/2023 05:34 RBC 4.52 m/mm3 (Low)?? 04/22/2023 05:34 Hgb 12.7 Gm/dL (Low)?? 04/22/2023 05:34 Hct 37.0 % (Low)?? 04/22/2023 05:34 MCV 81.9 femtoliters ()?? 04/22/2023 05:34 MCH 28.1 pg ()?? 04/22/2023 05:34 MCHC 34.3 g/dL ()?? 04/22/2023 05:34 Platelet Count 151 k/mm3 ()?? 04/22/2023 05:34 RDW-SD 42.8 femtoliters ()?? 04/22/2023 05:34 MPV 10.6 femtoliters ()?? 04/22/2023 05:34 Nucleated RBC (Automated) 0.0 #/100 WBC'S ()?? 04/22/2023 05:34 Abs. NRBC 0.0 k/mm3 ()?? 04/22/2023 05:34 Abs. Neut 4.2 k/mm3 ()?? 04/20/2023 14:20 Abs. Lymph 1.7 k/mm3 ()?? 04/20/2023 14:20 Abs. George 0.6 k/mm3 ()?? 04/20/2023 14:20 Abs. Eo 0.0 k/mm3 ()?? 04/20/2023 14:20 Abs. Baso 0.1 k/mm3 ()?? 04/20/2023 14:20 Neut % 63.3 % ()?? 04/20/2023 14:20 Lymph % 25.8 % ()?? 04/20/2023 14:20 George % 9.0 % ()?? 04/20/2023 14:20 Eos % 0.5 % ()?? 04/20/2023 14:20 Baso % 1.1 % ()?? 04/20/2023 14:20 Imm Gran 0.3 % ()?? 04/20/2023 14:20 Abs. Imm Gran 0.0 k/mm3 ()?? 04/20/2023 14:20 ?? CHEM GENERAL Sodium 137 mmol/L ()?? 04/23/2023 09:29 Potassium 4.1 mmol/L ()?? 04/23/2023 09:29 Chloride 98 mmol/L ()?? 04/23/2023 09:29 Bicarbonate Level 28 mmol/L ()?? 04/23/2023 09:29 Anion Gap 11 ()?? 04/23/2023 09:29 Glucose Level 108 mg/dL (High)?? 04/22/2023 05:34 BUN 10 mg/dL ()?? 04/22/2023 05:34 Creatinine-Blood 0.8 mg/dL ()?? 04/22/2023 05:34 Estimated GFR Creatinine 117 ML/MIN/1.73 M2 ()?? 04/22/2023 05:34 Calcium 9.5 mg/dL ()?? 04/22/2023 05:34 Phosphorus 3.4 mg/dL ()?? 04/22/2023 05:34 Magnesium 2.3 mg/dL ()?? 04/23/2023 09:29 Protein, Total 8.0 Gm/dL ()?? 04/20/2023 14:20 Albumin 4.9 Gm/dL (High)?? 04/20/2023 14:20 AG Ratio 1.6 ()?? 04/20/2023 14:20 Alkaline Phosphatase 67 units/L ()?? 04/20/2023 14:20 Lipase 24 units/L ()?? 04/20/2023 14:20 AST (SGOT) 28 units/L ()?? 04/20/2023 14:20 ALT (SGPT) 33 units/L ()?? 04/20/2023 14:20 Bilirubin, Total 0.4 mg/dL ()?? 04/20/2023 14:20 ?? HEME OTHER Hold Lavender Top SPECIMEN DISCARDED AFTER 24 HOURS. ()?? 04/23/2023 09:29 Hold Blue Top SPECIMEN DISCARDED AFTER 4 HOURS. ()?? 04/20/2023 14:20 ?? MISC. CHEMISTRY Hold Green Top SPECIMEN DISCARDED AFTER 1 WEEK ()?? 04/20/2023 14:20 Hold Gel Top SPECIMEN DISCARDED AFTER 1 WEEK ()?? 04/20/2023 14:20 Hold Cardoza Top SPECIMEN DISCARDED AFTER 1 WEEK ()?? 04/20/2023 14:20 ? TOXICOLOGY/TDM Ethanol, Serum or Plasma 241 mg/dL (Abnormal)?? 04/20/2023 14:20 Barbiturate Screen, Urine NONE DETECTED ()?? 04/20/2023 14:00 Cannabinoid Screen, Urine POSITIVE (Abnormal)?? 04/20/2023 14:00 Cocaine Metabolite Screen, Urine NONE DETECTED ()?? 04/20/2023 14:00 Benzodiazepine Screen, Urine NONE DETECTED ()?? 04/20/2023 14:00 Amphetamine Screen, Urine NONE DETECTED ()?? 04/20/2023 14:00 Opiate Screen, Urine NONE DETECTED ()?? 04/20/2023 14:00 ? URINE OTHER Est Creatinine Clearance 121.15 mL/min ()?? 04/21/2023 06:07 ? 40??minutes spent on discharge * Sunitha Cary MD: PERFORM, SIGN, VERIFY Event Display: Patient Education Handout Authored Date: [id number] * Sunitha Cary MD: PERFORM Event Display: Patient Education Leaflets Authored Date: [id number] Naltrexone Oral Tablet ?? [id number] Naltrexone Oral Tablet Brands: ReVia Uses This medicine is used for the following purposes: ??? drug addiction ??? alcohol dependence ?? Instructions Swallow with a full glass (8 oz) of water unless your doctor gives you different instructions. You may take with food to prevent stomach upset. This medicine will work best if you take it at about the same time every day. Store at room temperature away from heat, light, and moisture. Do not keep in the bathroom. It is important that you keep taking [...] about all medicines taken. Include prescription and wokc-ors-tujfhaz medicines, vitamins, and herbal medicines. Speak with your doctor or pharmacist before starting or stopping any medicine. If you need to stop this medicine, your doctor may wish to gradually reduce the dosage before stopping. Keep all appointments for medical exams and tests while on this medicine. ?? Cautions Tell your doctor and pharmacist if you ever had an allergic reaction to a medicine. This medicine may cause you to experience some withdrawal symptoms from your pain medication. Tell your doctor right away if you have unusual sweating, chills, stomach pain, diarrhea, yawning or irritability. Some patients taking this medicine have experienced serious side effects. Please speak with your doctor to understand the risks and benefits associated with this medicine. This medicine is associated with a rare, but serious problem of the liver. Speak to your doctor about the early signs of liver problems and the benefits and risks of using this medicine. Do not use the medication any more than instructed. This medicine may cause dizziness or fainting, especially after exercising or in hot weather. Be very careful when standing or sitting up quickly. If possible, avoid using with alcohol, marijuana, or other medicines that can cause dizziness or drowsiness. These include allergy/cold products, muscle relaxers, sleep aids, and pain relievers. Your ability to stay alert or to react quickly may be impaired by this medicine. Do not drive or operate machinery until you know how this medicine will affect you. Call the doctor if there are any signs of confusion or unusual changes in behavior. Tell the doctor or pharmacist if you are , planning to be , or . Contact your doctor immediately if you experience any swelling of your hands, face, lips, eyes, throat or tongue. Always carry an ID card or wear a medical alert bracelet indicating your medical condition. Do not share this medicine with anyone who has not been prescribed this medicine. Always refill this medicine before it runs out. ?? Side Effects The following is a list of some common side effects from this medicine. Please speak with your doctor about what you should do if you experience these or other side effects. ??? agitated feeling or trouble sleeping ??? dizziness ??? lack of energy and tiredness ??? headaches ??? nausea ??? restlessness Call your doctor or get medical help right away if you notice any of these more serious side effects: ??? abdominal cramps ??? severe or persistent abdominal pain ??? decreased awareness or responsiveness ??? bone pain ??? confusion ??? diarrhea ??? hallucinations (unusual thoughts, seeing or hearingthings that are not real) ??? pain in the joints ??? signs of liver damage (such as yellowing of eye or skin, dark urine, or unusual tiredness) ??? muscle aches, spasms or abnormal movements ??? nervousness ??? runny nose ??? shortness of breath ??? severe or persistent vomiting A few people may have an allergic reaction to this medicine. Symptoms can include difficulty breathing, skin rash, itching, swelling, or severe dizziness. If you notice any of these symptoms, seek medical help quickly. ?? Extra Please speak with your doctor, nurse, or pharmacist if you have any questions about this medicine. ?? [email or web address] IMPORTANT NOTE: This document tells you briefly how to take your medicine, but it does not tell youall there is to know about it. Your doctor or pharmacist may give you other documents about your medicine. Please talk to them if you have any questions. Always follow their advice. There is a more complete description of this medicine available in Sinhala. Scan this code on your smartphone or tablet or use the web address below. You can also ask your pharmacist for a printout. If you have any questions, please ask your pharmacist. The display and use of this drug information is subject to Terms of Use. Copyright(c) 2022 [employer]. ?? [employer]. All rights reserved. This information is not intended as a substitute for professional medical care. Always follow your healthcare professional's instructions. ?? * Sunitha Cary MD: PERFORM Event Display: Patient Education Leaflets Authored Date: [id number] Alcohol Withdrawal ?? [id number] Alcohol Withdrawal Alcohol withdrawal often starts after prolonged heavy drinking, and then you suddenly stop drinking. Or you cut down on your alcohol use. It is not one thing. It is a complex combination of signs andsymptoms that often occur together and define a certain problem or condition. ??? Alcohol withdrawal is potentially life-threatening. It is a medical emergency. ??? It can startas early as a couple of hours after your last drink. Or it may take 1 to 3 days to develop. ??? It can last from days to a week or more. ??? It can worsen very quickly. Signs and symptoms There are??several stages of alcohol withdrawal. But they overlap, as do their signs and symptoms. In the earlier stages, it most often includes: ??? Anxiety ??? Shakiness ??? Nausea and vomiting ???Sweating ??? Insomnia ??? Headaches ??? Fever ??? Mood swings, irritability, agitation, restlessness ?? Delirium tremens (DTs) DTs are a severe and life-threatening complication. If??DTs happen, they often start about 3 to 5 days after your last drink. They are potentially life threatening, so medical care should be sought. Symptoms of DTs include: ??? Sudden and severe mental or nervous system changes ??? Uncontrollable tremors ??? Severe disorientation, confusion, hallucinations ??? Heart racing, or irregular heartbeat??? High blood pressure ??? Seizures ??? Possible coma and ?? Home care ??? You'll need plenty of rest and fluids over the next several days. Eat regular meals and drink plenty of fluids to prevent dehydration. Don't drink any more alcohol. During this time, itis best that you're not alone. Stay with family or friends who can help and support you. You can also admit yourself to a residential detox program. ??? Don't drive until all symptoms are gone and you are feeling better. If you've had a seizure, don't drive until you've been examined by a healthcare provider. ??? If you were given sedative medicine to reduce your symptoms, don't take it more often than prescribed. Never take it with alcohol. ?? Follow-up care Once you've gone through the withdrawal symptoms, you've fought half of the matthew. To avoid the risk of going back to your past drinking pattern, it's vital that you get follow-up support and treatment. ??? Alcoholics Anonymous (AA) offers support through a self-help fellowship. There are no dues or fees. Search the internet or go to the AA website at www.aa.org to find a local meeting place. ??? [employer] offers support to families of alcohol users. Go to the Al-Anon website at www.al-anon.org . ??? Residential alcohol detox programs are available. Search the [facility] for [facility]. ?? Call 911 Call 911 if any of these occur: ??? Seizure ??? Trouble breathing or slow, irregular breathing ??? Chest pain ??? Sudden weakness on a side of the body or sudden trouble speaking ??? Heavy bleeding or vomiting blood ??? Very drowsy or trouble awakening ??? Fainting or loss of consciousness ??? Rapid heart rate ?? When to get medical advice Call your healthcare provider right away??if any of these occur: ??? Severe shakiness ??? Hallucinations ??? Fever over 100.4?? F (38.0?? C) ??? Headache, confusion, extreme drowsiness, inability to awaken ??? Increasing upper abdominal pain ??? Repeated vomiting ?? Last Reviewed Date: 2021 ?? 1611-8449 [employer]. All rights reserved. This information is not intended as a substitute for professional medical care. Always follow your healthcare professional's instructions. ?? Patient Care team information Care Team Personnel Name: Samy Coleman RN Position: [facility] RN Member Role: Primary Care Nurse Name: Alix Vargas RN Position: [facility] RN Member Role: Primary Care Nurse Name: Nina Fulton RN Position: [facility] RN Member Role: Primary Care Nurse Name: Not on Staff, PCP Position: [facility] Physician (General Medicine) Member Role: PCP Name: Mirela Fritz RN Position: [facility] RN Member Role: Primary Care Nurse Name: Ana M Barnes Position: [facility] RN Member Role: Primary Care Nurse Name: Neli Alcala RN Position: [facility] RN Member Role: Primary Care Nurse Name: Romel DA SILVA Attending Position: [facility] ED Medicine Name: Artemio Kumar RN Position: [facility] ED RN W/OE and Tasks Member Role: Patient Care Provider Care Team Related Persons Name: KATARZYNADOMENICA Address: home [address] [place], [place] [id number] Name: KENNETH BALDWIN Address: home [address] [place] [address]
--- OUTSIDE RECORDS SUMMARY | 2023-05-31 10:39 | XMS_ITS | Continuity of Care Document ---
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 Name Role Phone Greg Ponce DO Primary Care Physician Encounter [facility] Date(s): 02/09/23 - 03/13/23 [facility] [place] [address] [place] [address]- Attending Physician: Greg Ponce DO Allergies, Adverse [...] Given 1Result Comment: BOOSTER 2Result Comment: [facility]# ON [address] 44406-081-65 3Result Comment: [03/10/2017] [facility] 88757-639-52 4Result Comment: [facility]: [id number] 5Result Comment: [10/10/2013] #1 6Admin Note: historical [...] disorder, severe, dependence Confirmed Active Fatty liver 2020 Confirmed Active 1urine catecholamines appear normal 2negative renal artery duplex 3r/o secondary cause 4advised pre diabetic increased risk diabetes Social History Social History Type Response Smoking Status Never smoker entered on: 10/10/13 Sex Patient Care team information Care Team Personnel Name: Samy Coleman RN Position: S RN Member Role: Primary Care Nurse Name: Alix Vargas RN Position: S RN Member Role: Primary Care Nurse Name: Nina Fulton RN Position: S RN Member Role: Primary Care Nurse Name: Mirela Fritz RN Position: S RN Member Role: Primary Care Nurse Name: Greg Ponce DO Position: S Physician - Primary Care Member Role: PCP Address: Address: [address] [place] [id number]- Name: Ana M Barnes Position: S RN Member Role: Primary Care Nurse Name: Rubina Brink RN Position: S RN Member Role: Primary Care Nurse Name: Neli Alcala RN Position: S RN Member Role: Primary Care Nurse Care Team Related Persons Name: COLÓNDOMENICA HOLLOWAY Address: [address] [place] [address] Name: KENNETH BALDWIN Address: [address] [place] [address]
--- OUTSIDE RECORDS SUMMARY | 2023-05-31 10:40 | XMS_ITS | Continuity of Care Document ---
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 Name Role Phone Greg Ponce DO Primary Care Physician Encounter [facility] Date(s): 02/10/23 - 03/13/23 [facility] [address] [place] [address]- Encounter Diagnosis Alcohol use disorder, severe, dependence(Discharge Diagnosis) - 02/11/23 Moderate recurrent major depression(Discharge Diagnosis) - 02/11/23 Essential Hypertension(Discharge Diagnosis) - 02/11/23 Attending Physician: Greg Ponce DO Allergies, Adverse [...] [facility] [address] 75105-232-29 3Result Comment: [03/10/2017] [facility] 50781-773-62 4Result Comment: [facility]: [id number] 5Result Comment: [10/10/2013] #1 6Admin Note: historical [...] cause 4advised pre diabetic increased risk diabetes Diagnosis Diagnosis Type Effective Dates Health Status Clinical Service Informant Alcohol use disorder, severe, dependence Discharge Diagnosis 02/11/23 Moderate recurrent major depression Discharge Diagnosis 02/11/23 Essential Hypertension Discharge Diagnosis 02/11/23 Social History Social History Type Response Smoking Status Never smoker entered on: 10/10/13 Sex Patient Care team information Care Team Personnel Name: Samy Coleman RN Position: [facility] RN Member Role: Primary Care Nurse Name: Alix Vargas RN Position: S RN Member Role: Primary Care Nurse Name: Nina Fulton RN Position: S RN Member Role: Primary Care Nurse Name: Mirela Fritz RN Position: [facility] RN Member Role: Primary Care Nurse Name: Greg Ponce DO Position: [facility] Physician - Primary Care Member Role: PCP Address: Address: [address] [place] [id number]- Name: Ana M Barnes Position: S RN Member Role: Primary Care Nurse Name: Rubina Brink RN Position: [facility] RN Member Role: Primary Care Nurse Name: Fredrick BARRETO, Neli Worley Position: [facility] RN Member Role: Primary Care Nurse Care Team Related Persons Name: DOMENICA COLÓN Address: home [address] [place] [address] Name: KENNETH BALDWIN Address: [address] [place] [address]
--- OUTSIDE RECORDS SUMMARY | 2023-05-31 10:40 | XMS_ITS | Continuity of Care Document ---
Author Name Unknown Organization [facility] ter Address [address] [place] [id number] Care Team Providers Care Maori Liaison Adviser Name Role Phone Greg Ponce DO Primary Care Physician Encounter [facility] Date(s): 05/25/23 - 05/28/[address] [address]- Encounter Diagnosis Alcohol withdrawal(Final) - 05/25/23 Discharge Disposition: A-D/C Home Attending Physician: Charlene Bazzi MD Admitting Physician: Miguel Michele MD Referring Physician: Not on Staff, Referring [...] Given 1Result Comment: [10/10/2013] #1 2Result Comment: [facility]# [address] [phone] 3Result Comment: [03/10/2017] [facility] [id number] 4Admin Note: historical data 5Result 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: 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 6Result Comment: [facility]: [id number] Medications acamprosate 333 mg oral delayed release tablet 2 tablet = 666 mg, By Mouth, 3 times a day, # 180 tablet, 1 Refills, Maintenance, 02/06/23 10:35:00EDT, CR Tablet, [facility], 173, cm, 02/06/23 4:34:00 EDT, Height, 80.9, kg, 02/02/23 18:22:00EDT, Dry Weight Start Date: 02/06/23 Status: Ordered Acetaminophen Tablet 650 mg, Tablet, By Mouth, Every 4 hours, PRN for Pain , Mild, Temperature Greater than 100.5, Routine, 05/25/23 1:45:00 EST Start Date: 05/25/23 Stop Date: 05/28/23 Status: Discontinued busPIRone 30 mg oral tablet 1 tablet [...] 0 Refills, Maintenance, 11/29/22 11:01:00 EDT, Capsule, [facility], Partial fill upon patient request if [...] Dry Weight Start Date: 11/29/22 Status: Ordered sulfamethoxazole-trimethoprim 800 mg-160 mg oral tablet 1 tablet, By Mouth, 2 times a day, for 7 days, # 14 tablet, 0 Refills, Acute 06/04/23 10:31:00 EST,05/28/23 10:31:00 EST, Tablet, [facility], Partial fill upon patient request if the prescription is for a schedule II opioid drug., 1 tab... Start Date: 05/28/23 Stop Date: 06/04/23 Status: Ordered traZODone 50 mg oral tablet 50 mg, 1, tablet, By Mouth, Daily at bedtime, # 30 tablet, Refills 0, Maintenance, 11/27/22 14:13:00 EDT, Partial fill upon patient request if the prescription is for a schedule II opioid drug. Start Date: 11/27/22 Status: Ordered Vivitrol 380 mg intramuscular injection, extended release INJECT INTO THE MUSCLE EVERY 4 WEEKS Start Date: 05/25/23 Status: Ordered Problem List Condition Confirmation Course [...] Range]: 1 2 3 Height 172 cm (05/28/23 4:36 AM) 172 cm (05/27/23 9:00 PM) 172 cm (05/27/23 11:24 AM) Weight 78.5 kg (05/25/23 4:49 PM) 78.5 kg (05/25/23 2:45 PM) 78.5 kg (05/25/23 11:14 AM) Oxygen Saturation [94-100 %] 99 % (05/28/23 4:36 AM) 100 % (05/27/23 9:00 PM) 100 % (05/27/23 4:00 PM) Pulse Rate [55-90 bpm] 110 bpm *H* (05/28/23 8:20 AM) 77 bpm (05/28/23 4:36 AM) 98 bpm *H* (05/27/23 9:00 PM) Body Mass Index [18.5-24.99 kg/m2] 26.53 kg/m2 *H* (05/25/23 4:49 PM) 26.53 kg/m2 *H* (05/25/23 2:45 PM) Blood Pressure [90-138/55-84 mm Hg] 133/89mm Hg (05/28/23 8:20 AM) 121/67mm Hg (05/28/23 4:36 AM) 143/83mm Hg *H* (05/27/23 9:00 PM) Respiratory Rate [16-30 br/min] 18 br/min (05/28/23 9:49 AM) 20 br/min (05/28/23 8:20 AM) 18 br/min (05/28/23 4:36 AM) Temperature [96.8-100.4 DegF] 98.6 DegF (05/28/23 4:36 AM) 100.0 DegF (05/27/23 9:00 PM) 97.9 DegF (05/27/23 4:00 PM) Mode of Delivery (Oxygen) Room air (05/28/23 4:36 AM) Room air (05/27/23 9:00 PM) Room air (05/27/23 4:00 PM) Blood pressure sites Arm, left (05/28/23 4:36 AM) Arm, left (05/27/23 9:00 PM) Arm, left (05/27/23 4:00 PM) Temperature Route Oral (05/28/23 4:36 AM) Oral (05/27/23 9:00 PM) Oral (05/27/23 4:00 PM) Dry Weight 78.5 kg (05/25/23 4:49 PM) 78.5 kg (05/25/23 2:45 PM) Social History Social History Type Response Smoking Status Never smoker entered on: 10/10/13 Sex Admission evaluation note * Nayan TAMEZ, Nithya Worley: MODIFY, MODIFY, MODIFY, MODIFY, PERFORM, MODIFY, MODIFY Event Display: Admission Note Authored Date: [id number] Patient: ??JULIOCESAR BOATENG ? Age:??37 Years?Sex:??Male?:??1985?? Chief Complaint/Reason for Consultation ETOH w/d History of Present Illness The patient is a 37 year old male with??a past medical history of alcohol use??disorder??with previous withdrawal, depression??and HTN who??presents to the ED with??complaints of ETOH withdrawal. Patient??t states that he did not drink any ETOH after his admission 04/20-04/24 for withdrawals. Afterhe was??discharged, he went??to a program.?? He has??been taking Vivitrol and??acamprosate.??However, over the last few days, the??patient began drinking a large amount of vodka, up to a large bottleper day.??Patient's last drank was earlier this morning. The patient??became concerned when he developed nausea, vomiting, and malaise similar to when he had withdrawals previously. He??denies fever,cough, chest pain, shortness of??breath,??congestion, and abdominal pain.. ? In the??ED, the patient is afebrile with HR up to 150,??now improved after fluids, and BP 158/110, now improved. Laboratory data is significant for AG 36 and ETOH 269.?? U Tox is??positive for??cannabis.?? The patient was given 2 doses of phenobarbital 260 mg and IVF.?? He is admitted for ETOH withdrawal.? Review of Systems Constitutional:??No weight loss, fever, chills, weakness or fatigue. Allergy/Immune: Denies any??Eczema or hives Eyes:??No visual loss, blurred vision, double vision or yellow sclera ENT:??No hearing loss, sneezing, congestion, runny nose or sore throat. Respiratory:??No shortness of breath, cough or sputum production. Cardiovascular:??No chest pain, chest pressure or chest discomfort. No palpitations or pedal edema. Gastrointestinal:??Nausea, vomiting.?? No??diarrhea, abdominal pain or blood in stool. Genitourinary:??No burning micturition. No urinary frequency or incontinence. Neurologic:??Headache.?? No dizziness, syncope, unilateral weakness, ataxia, numbness or tingling in the extremities. No change in bowel or bladder control. Musculoskeletal:??No muscle pain, back pain, joint pain or stiffness. Hematologic/Lymphatics:??No bleeding or bruising. No painful lymph nodes. Skin:??No rash or itching. Endocrine:??No reports of sweating. No cold or heat intolerance. No polyuria or polydipsia. Psychiatric:??No depression or anxiety. Objective Vital Signs?? Temperature: 97.6 DegF (05/25/23 04:02:00) Temperature Route: Oral (05/25/23 04:02:00) Pulse Rate:??112 bpm??High (05/25/23 04:02:00) Respiratory Rate: 19 br/min (05/25/23 03:41:00) Systolic Blood Pressure: 125 mm Hg (05/25/23 04:02:00) Diastolic Blood Pressure: 79 mm Hg (05/25/23 04:02:00) Blood pressure sites: Arm, left (05/25/23 03:41:00) Mean Arterial Pressure: 94 mm Hg (05/25/23 04:02:00) Pulse Pressure: 46 mm Hg (05/25/23 04:02:00) Oxygen Saturation: 96 % (05/25/23 03:41:00) Mode of Delivery (Oxygen): Room air (05/25/23 03:41:00) Early Warning Score: 4 (05/25/23 04:02:52) ? Intake/Output? No Data Available ? Physical Exam Constitutional: Alert, mild??distress. Mental Status: Oriented to person, place and time. Head: Normocephalic. Eyes: Pupils are equal, round and reactive to light. Extraocular muscles intact. Ear, Nose and Throat: Oropharynx clear, mucous membranes moist. Ears and nose without masses, lesions or deformities. Trachea midline. Neck: Supple, Full range of motion. Respiratory: Clear to auscultation. No wheezing, rales or rhonchi. Cardiovascular: S1 S2 regular. No murmurs, rubs or gallops. Gastrointestinal: Abdomen soft, non-tender, non-distended. Normal bowel sounds. No pulsatile mass.?? Genitourinary: No costovertebral angle tenderness. Neurologic: Cranial nerves II-XII grossly intact. No focal neurological deficits. Flexor plantar response. Moves all extremities spontaneously. Sensation intact bilaterally. Skin: No rashes or lesions. No petechiae or purpura.?? Musculoskeletal: No cyanosis or clubbing. No gross deformities. Normal range of motion. Heme/Lymphatics/Immun: Palpation of neck reveals no swelling or tenderness of neck nodes.?? Psychiatric: Normal mood and affect Assessment/Plan Assessment:??The patient is a 37 year old male with??a past medical history of alcohol use??disorder??with previous withdrawal, depression??and HTN who??presents to the ED with??complaints of ETOH withdrawal.?? Patient states that he did not drink any ETOH after his admission 04/20-04/24 for withdrawals. After he was??discharged, he went??to a program.??He has??been taking Vivitrol and??acamprosate.??However, over the last few days, the??patient began drinking a large amount of vodka, up to a large bottle per day.??Patient's last drank was earlier this morning. The patient??became concerned when he developed nausea, vomiting, and malaise similar to when he had withdrawals previously. He??denies fever, cough, chest pain, shortness of??breath,??congestion, and abdominal pain..? In the??ED, the patient is afebrile with HR up to 150,??now improved after fluids, and BP 158/110, now improved. Laboratory data is significant for AG 36 and ETOH 269.??U Tox is??positive for??cannabis.??The patient was given 2 doses of phenobarbital 260 mg and IVF.??He is admitted for ETOH withdrawal.? Alcohol withdrawal (F10.939):?? 37 year old male with??a past medical history of alcohol use??disorder??with previous withdrawal, depression??and HTN??presents to the ED with??complaints of ETOH withdrawal.?? Patient states that hedid not drink any ETOH after his admission 04/20-04/24 for withdrawals. After he was??discharged heattended a program.?? He has??been taking Vivitrol and??acamprosate.??However, over the last few days, the??patient began drinking a large amount of vodka, up to a large bottle per day. His last drank was earlier this morning.?? The patient??became concerned when he developed nausea, vomiting, and malaise similar to when he had withdrawals previously. In the??ED, the patient is afebrile with HR up to 150,??now improved after fluids, and BP 158/110, now improved. Laboratory data is significant for AG 36 and ETOH 269.??U Tox is??positive for??cannabis.??The patient was given 2 doses of phenobarbital 260 mg and IVF.??He is admitted for ETOH withdrawal.?? -Continue CIWA. -Phenobarbital prn??based on CIWA protocol. -Continue folic acid, MV, thiamine,??Pyridoxine. ?? High anion gap metabolic acidosis (E87.29): Acidosis likely in the setting of chronic alcohol intake and poor oral intake. -Continue IVF. -Follow a.m. labs ?? Alcohol use (Z78.9):?? -Patient states he has struggled??with alcohol addiction for some time. -States he did well when he was in an outpatient program, which he stopped so he could work. -Will consult addiction medicine ?? Depression (F32.A):?? -Continue home dose of fluoxetine, buspirone. ?? Diet: Regular. ?? VTE Prophylaxis:??Encourage ambulation. ?? Code Status:??Full Code. ?? Discharge Planning:?? -OMN- Alcohol withdrawal. ? Histories Allergies Allergies ?(Active and Proposed Allergies Only) NKA? (Severity: Unknown severity, Onset: Unknown) ? Past Medical History/Problem List Active Problems??(8) Alcohol use disorder, severe, dependence Alcohol withdrawal Essential Hypertension Fatty liver us 2020 Hyperlipidemia Impaired fasting glucose Metabolic acidosis Moderate recurrent major depression ? Past Surgical History Reference laboratory ER [facility]: 10/29/21 Electrocardiogram: 07/17/21 CT of abdomen and pelvis nad: 05/06/21 Electrocardiogram sinus: 05/03/21 Reference laboratory ER [facility]: 03/22/21 Reference laboratory: 01/06/21 Ultrasound of abdominal - Echogenic liver likely fatty infiltration: 01/05/21 Ultrasound scan of eek liver fatty ;iver : 01/04/21 CT angiography [...] abdomen; with contrast material(s): 05/16/10 Duplex kidney: 11/24/10 Echocardiography, transthoracic, real-time with image documentation (2D), [...] (multivitamin Multiple Vitamins oral capsule)?1?capsule?By Mouth?Daily Naltrexone (Vivitrol 380 mg intramuscular injection, extended release)?INJECT INTO THE MUSCLE EVERY 4 WEEKS Pantoprazole (Protonix 20 mg oral delayed release tablet)?1?tab(s)?20?Milligram?By Mouth?Daily Trazodone (traZODone 50 mg oral tablet)?50?Milligram?1?tablet?By Mouth?Daily at bedtime ? Inpatient Medications Medications (19) Active SCHEDULED: [...] Tablet) ??1 mg, By Mouth, Daily Multivitamin Therapeutic / Minerals Tablet (Multivit Therapeutic/Minerals Tablet) ??1 tablet, By Mouth, Daily NaCl 0.9% [...] Mouth, Daily at bedtime CONTINUOUS: (0) PRN: (9) Acetaminophen 325 mg Tablet (Acetaminophen Tablet) ??650 mg, By Mouth, Every 4 hours Dextromethorphan-Guaifenesin 20 mg-200 mg/10 mL Liqu UD (Robitussin DM Liquid) ??10 mL, By Mouth, Every 4 hours Docusate Sodium 100 mg Capsule (Docusate Sodium Capsule) ??100 mg 1 capsule, By Mouth, 2 times a day Melatonin 3 mg Tablet (Melatonin Tablet) ??3 mg, By Mouth, Daily at bedtime NaCl 0.9% Flush 3ml (NaCL 0.9% Flush) ??3 mL, IV Push, Every 8 hours Phenobarbital 65 mg/mL Inj (Phenobarbital Inj) ??65 mg 1 mL, IV Push, Every 2 hours Polyethylene Glycol 17 Gm Powder (MiraLax Powder) ??17 Gm 1 pack/packet, By Mouth, Daily Senna Tablet ??8.6 mg 1 tablet, By Mouth, 2 times a day Simethicone 80 mg Chewable Tablet (Simethicone Tablet) ??80 mg, Chew, 3 times a day ? Results Recent Labs BLOOD COUNT & DIFF WBC 9.7 k/mm3 ()?? 05/24/2023 22:30 RBC 6.18 m/mm3 (High)?? 05/24/2023 22:30 Hgb 16.7 Gm/dL ()?? 05/24/2023 22:30 Hct 50.8 % (High)?? 05/24/2023 22:30 MCV 82.2 femtoliters ()?? 05/24/2023 22:30 MCH 27.0 pg ()?? 05/24/2023 22:30 MCHC 32.9 g/dL (Low)?? 05/24/2023 22:30 Platelet Count 243 k/mm3 ()?? 05/24/2023 22:30 RDW-SD 45.2 femtoliters ()?? 05/24/2023 22:30 MPV 10.1 femtoliters ()?? 05/24/2023 22:30 Nucleated RBC (Automated) 0.0 #/100 WBC'S ()?? 05/24/2023 22:30 Abs. NRBC 0.0 k/mm3 ()?? 05/24/2023 22:30 Abs. Neut 7.1 k/mm3 (High)?? 05/24/2023 22:30 Abs. Lymph 1.8 k/mm3 ()?? 05/24/2023 22:30 Abs. [place] 0.7 k/mm3 ()?? 05/24/2023 22:30 Abs. Eo 0.0 k/mm3 ()?? 05/24/2023 22:30 Abs. Baso 0.1 k/mm3 ()?? 05/24/2023 22:30 Neut % 73.1 % ()?? 05/24/2023 22:30 Lymph % 18.4 % ()?? 05/24/2023 22:30 [place] % 7.2 % ()?? 05/24/2023 22:30 Eos % 0.0 % ()?? 05/24/2023 22:30 Baso % 1.0 % ()?? 05/24/2023 22:30 Imm Gran 0.3 % ()?? 05/24/2023 22:30 Abs. Imm Gran 0.0 k/mm3 ()?? 05/24/2023 22:30 ?? CHEM GENERAL Sodium 141 mmol/L ()?? 05/24/2023 22:30 Potassium 4.6 mmol/L ()?? 05/24/2023 22:30 Chloride 92 mmol/L (Low)?? 05/24/2023 22:30 Bicarbonate Level 13 mmol/L (Low)?? 05/24/2023 22:30 Anion Gap 36 (High)?? 05/24/2023 22:30 Glucose Level 95 mg/dL ()?? 05/24/2023 22:30 BUN 14 mg/dL ()?? 05/24/2023 22:30 Creatinine-Blood 0.8 mg/dL ()?? 05/24/2023 22:30 Estimated GFR Creatinine 119 ML/MIN/1.73 M2 ()?? 05/24/2023 22:30 Calcium 9.6 mg/dL ()?? 05/24/2023 22:30 Protein, Total 8.4 Gm/dL (High)?? 05/24/2023 22:30 Albumin 5.3 Gm/dL (High)?? 05/24/2023 22:30 AG Ratio 1.7 ()?? 05/24/2023 22:30 Alkaline Phosphatase 77 units/L ()?? 05/24/2023 22:30 AST (SGOT) 39 units/L ()?? 05/24/2023 22:30 ALT (SGPT) 34 units/L ()?? 05/24/2023 22:30 Bilirubin, Total 0.5 mg/dL ()?? 05/24/2023 22:30 ?? ENDOCRINE/TUMOR MARKER TSH 0.55 uIU/mL ()?? 05/24/2023 22:30 ?? TOXICOLOGY/TDM Ethanol, Serum or Plasma 269 mg/dL (Abnormal)?? 05/24/2023 22:30 Barbiturate Screen, Urine NONE DETECTED ()?? 05/24/2023 22:36 Cannabinoid Screen, Urine POSITIVE (Abnormal)?? 05/24/2023 22:36 Cocaine Metabolite Screen, Urine NONE DETECTED ()?? 05/24/2023 22:36 Benzodiazepine Screen, Urine NONE DETECTED ()?? 05/24/2023 22:36 Amphetamine Screen, Urine NONE DETECTED ()?? 05/24/2023 22:36 Opiate Screen, Urine NONE DETECTED ()?? 05/24/2023 22:36 ? Hospital Progress note * Roseann Humphrey RN: VERIFY, PERFORM, SIGN Event Display: Progress Note Hospital Authored Date: Patient: JULIOCESAR BOATENG Age: 37 years Sex: Male : 1985 Associated Diagnoses: None Author: Roseann Humphrey RN Findings Problem Related to Alteration in Integumentary : Alteration in Integumentary/new 05/28/2023 9:00 EST Alteration in Integumentary Related to Cellulitis, Other: R arm Goals & Outcomes, Integumentary Pt will maintain adequate fluid & nutritional balance, Pt will maintain intact skin integrity, Wound will progress towards healing Interventions, Integumentary Keep linen clean, dry and wrinkle free, Keep skin clean & dry, Minimize friction, shear and moisture, Monitor reddened areas for continued or increasing reddness BH Goals/Interventions, Integumentary Yes Integumentary, Problem Start 05/28/2023 0:02 Reviewed plan with, Integumentary Patient Patient Progression, Integumentary Pt progressing according to plan . Alteration in Respiratory Function (new) : Alteration in Respiratory Function/new 05/28/2023 9:00 EST Alteration in Resp Status Related to Other: PUI/negative covid 05/27 Goals & Outcomes, Respiratory Pt will maintain/resume baseline physical assessment, Pt will maintain adequate nutritional intake Interventions, Respiratory Assess for and report S&S of respiratory distress, Initiate VAP prevention strategies, Position for comfort & optimal oxygenation, Chest tube drainage, maintain drainage/suction as ordered, Monitor sputum color & consistency. Report changes to MD, Teach/encourage use of incentive spirometer Goals/Interventions, Respiratory Yes Respiratory, Problem Start 05/27/2023 23:20 Reviewed Plan with, Respiratory Patient Patient Progression, Respiratory Patient progressing according to plan . Alteration in Safety : Alteration in Safety/new 05/28/2023 9:00 EST Alteration in Safety Related to Other: ETOH - withdrawl Goals & Outcomes, Safety Psychosocial support will be provided to Pt/S.O. as needed, Pt/caregiver will state understanding of plan/goals of care, Pt will remain safe & injury free, Pt/caregiver will be offered appropriate resources & support, Pt/caregiver will verbalize understanding ofthe D/C plan Interventions, Safety Provide info on community resources for education, support Goals/Interventions, Safety Yes Safety, Problem Start 05/27/2023 23:21 Reviewed plan with, Safety Patient Patient Progression, Safety Pt progressing according to plan . Nursing Data Vital Signs : VITAL SIGNS SECTION 05/28/2023 8:20 EST Pulse Rate 110 bpm H Respiratory Rate 20 br/min Systolic Blood Pressure 133 mm Hg Diastolic Blood Pressure 89 mm Hg H . Narrative/Incidental A+Ox4. Pleasant and cooperative with care. Admitted for N/V - ETOH withdrawl. CIWA in place - scored 2 this morning - only complaining of a little nausea. PUI - COVID - 05/27 - no symptoms. Seizure precautions in place. LS clear. +BS, BM 05/27, reg diet in place - completed most of breakfast this morning. R AC red and swollen - site circled. Pt is on bactrim which seems to be improving the infection. Pt states he comes from home and [facility] [place]. He does not state any suicidal thoughts. pt is resting in bed with call jack in place. No further issues at this time.. * Carla Giron RN: PERFORM, SIGN, VERIFY, MODIFY, SIGN Event Display: Progress Note Hospital Authored Date: [id number] Patient: JULIOCESAR BOATENG Age: 37 years Sex: Male : 1985 Associated Diagnoses: None Author: Carla Giron RN Findings Problem Related to Alteration in Integumentary : Alteration in Integumentary/new 05/27/2023 23:00 EST Alteration in Integumentary Related to Cellulitis Goals & Outcomes, Integumentary Pt will maintain adequate fluid & nutritional balance, Pt will maintain intact skin integrity, Wound will progress towards healing Interventions, Integumentary Keep linen clean, dry and wrinkle free, Keep skin clean & dry, Minimize friction, shear and moisture, Record extent of impaired skin integrity, Teach Pt/caregiver s/sof infection BH Goals/Interventions, Integumentary Yes Integumentary, Problem Start 05/28/2023 0:02 Reviewed plan with, Integumentary Patient Patient Progression, Integumentary Plan Initiation . Alteration in Respiratory Function (new) : Alteration in Respiratory Function/new 05/27/2023 23:00 EST Alteration in Resp Status Related to Other: PUI/negative covid 05/27 Goals & Outcomes, Respiratory Pt will maintain/resume baseline physical assessment, Pt will maintain adequate nutritional intake Interventions, Respiratory Assess for and report S&S of respiratory distress, Position for comfort & optimal oxygenation, Teach/encourage use of incentive spirometer BH Goals/Interventions, Respiratory Yes Respiratory, Problem Start 05/27/2023 23:20 Reviewed Plan with, Respiratory Patient Patient Progression, Respiratory Plan Initiation . Alteration in Safety : Alteration in Safety/new 05/27/2023 23:00 EST Alteration in Safety Related to Other: ETOH Goals & Outcomes, Safety Psychosocial support will be provided to Pt/S.O. as needed, Pt/caregiver will state understanding of plan/goals of care, Pt will remain safe & injury free, Pt/caregiver will be offered appropriate resources & support, Pt/caregiver will verbalize understanding ofthe D/C plan Interventions, Safety Provide info on community resources for education, support, Provide teaching as needed BH Goals/Interventions, Safety Yes Safety, Problem Start 05/27/2023 23:21 Reviewed plan with, Safety Patient Patient Progression, Safety Plan Initiation . Nursing Data Cardiac Data. : Cardiac Data. 05/27/2023 20:44 EST Cardiovascular WNL . Gastrointestinal Data. : Gastrointestinal Data. 05/27/2023 20:44 EST Last Bowel Movement 05/27/2023 GI WNL . Genitourinary Data. : Genitourinary Data. 05/27/2023 20:44 EST WNL . HEENT Data. : HEENT Assessment 05/27/2023 20:44 EST HEENT, Adult WNL . Integumentary Data. : Integumentary Data. 05/27/2023 20:44 EST Skin Integrity Intact Integumentary WNL except . Musculoskeletal Data. : Musculoskeletal Data. 05/27/2023 20:44 EST Musculoskeletal WNL . Neurological Data. : Neurological Data. 05/27/2023 20:44 EST Pain Location Antecubital, right Pain Intensity 2 1 - 10 Pain Scale Score 2 Quality Other: sore Pain Interventions PRN medication Pain relief acceptable Yes Neuro WNL . Patient Care Data. : Patient Care Data. 05/27/2023 20:44 EST Patient's Stated Goal none stated Pt Ed-Learning: Person Taught Patient Pt Ed-Learning: Learning Readiness Yes, alert and oriented Pt Ed-Learning: Learning Barriers None Pt Ed-Learning: Learning Style Verbal Pain system assessment Detailed pain assessment Pain Effects on Appetite Mild Pain Effects on Concentration Mild Pain Effects on Daily Life Mild Pain Effects on Emotions Mild Pain Effects on Sleep Mild Pain Aggravating Factors Unable to describe Pain Alleviating Factors Medication Quality Other: sore Behavioral indicators Facial expression Fall Elimination No impairment Fall Agitation/Anxiety/Depression On Alcohol withdrawal Protocol Plan: Fall Agitation/Anxiety/Depression Follow Alcohol Withdrawal Protocol Fall Related Sign/Symptom/Condition None Fall Cognitive Limitations No impairment Fall Sensory and Physical Function No impairment Fall High Risk for Injury None of the above Total Falls Risk Score 5 Fall Risk Level High Risk Falls Prevention Plan for High Risk Fall risk decal outside of patient's room, Activate yellow iDome light, Apply yellow high fall risk wrist band to wrist, Ensure patient has yellow non-skid slippers, Supervise patient in the bathroom & shower, Evaluate footwear & ensure patient has non-skid slippers, Bed in lowest locked position, Provide patient/family falls prevention education, Place personal care items & call jack within reach, Supervise the patient when ambulating or making transfers, Check that needs are met to minimize attempts to get up, Hourly rounds, Ensure safe & uncluttered environment, Communicate falls risk to all providers . Respiratory/Pulmonary Data. : Respiratory/Pulmonary Data. 05/27/2023 20:44 EST Respiratory WNL . Vital Signs : VITAL SIGNS SECTION 05/27/2023 21:00 EST Temperature 100.0 DegF Temperature Route Oral Pulse Rate 98 bpm H Respiratory Rate 18 br/min Systolic Blood Pressure 143 mm Hg H Diastolic Blood Pressure 83 mm Hg Blood pressure sites Arm, left Mean Arterial Pressure 103 mm Hg Pulse Pressure 60 mm Hg Oxygen Saturation 100 % Mode of Delivery (Oxygen) Room air . Pain Data : PAIN SECTION 05/27/2023 20:44 EST Pain Location Antecubital, right Pain Intensity 2 1 - 10 Pain Scale Score 2 Pain relief acceptable Yes . Narrative/Incidental Right AC old IV site is hard,tender,surrounding skin red,warm and slightly swollen,area marked,c/o 2/10 pain,PRN tylenol given with relief,covering medicine notified and seen patient,started on PO antibiotic for cellulitis.. Evaluation 2043,Received patient from ,case of N/V,malaise,ETOH withdrawal,PUI,covid test negative 05/27 @ 1800,on enhanced respiratory precaution,patient is alert and oriented x4,CIWA score 4,on seizure precaution,c/o headache,LS clear,no SOB,abdomen SNT,(+) BS,denies nausea,good oral intake,voiding yellowurine,last BM 05/27 small formed stool,colace and senna given,both legs (+) CMS,(+) PP,OOB with steady gait,call jack within reach.. * Sachin VERONICA, Cristopher Parish: PERFORM, MODIFY Event Display: Progress Note Hospital Authored Date: [id number] Patient: ??JULIOCESAR BOATENG ? Age:??37 Years?Sex:??Male?:??1985?? Received a page at 23:10 from ESTEVAN Giron??stating patient was transferred to [facility] from and he has cellulitis at right AC where previous IV was. According to patient IV was switching from right AC to left dorsal area in the AM or afternoon. He states his RN on S2 (Radha Collazo)??told him to tell the new RN whenever he arrived to??his new floor.??Unfortunately, patient likely had an evolving??cellulitis left untreated all day.??In the right AC there appears to be induration and small pustule where previous IV was. There is approximately 12 x 3 inches of erythema extending down the forearm.??Patient is tender to palpation of the areas and there is warmth.??The area was marked. I have started patient on Bactrim DS for treatment of purulent cellulitis. Consult note * Bharti VERONICA, Christen Beltran: PERFORM Event Display: Consultation Note Authored Date: [id number] Patient: ??JULIOCESAR BOATENG ? Age:??37 Years?Sex:??Male?:??1985?? Reason for Consultation Addiction Med Consult - ETOH Requested by??Dr Rodolfo Dow History of Present Illness Juliocesar Boateng is a 37 yo male with a PMHx??of??AUD, depression,??HTN.??He was admitted??on??05/24??with??ETOH withdrawal.??Pt was previously??here last??month,??and went to a??substance use treatment p rogram??following??discharge.??Pt had been??taking??campral??and vivitrol, but over the last few days had??been drinking large amounts of??vodka.??ETOH??level??269, tox??otherwise positive for marijuana. Pt started on on a??CIWA with PRN ativan available.??He has received 2mg x1??so far??today. ?? Met with pt this morning. Pt endorsing that he has been on campral and vivitrol - he was due for his next vivitrol injection recently, but it was not available at the clinic he attends. He feels that it ended up wearing off, and he resumed drinking liquor heavily. He would like to continue on this regimen, and would be opento receiving the vivitrol injection here prior to d/c. Pt reports he was at a treatment program called [facility] in the last few weeks, and would like toreturn there. Pt also interested in getting connected to a therapist. He is very much struggling with the fact that he is someone who cannot interact??with alcohol in moderation, and expresses some resentment thatothers are able to do so. Additionally, he finds it to be quite lonely, as friends/family end up acting differently around him, or not inviting him to things at all. 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 Occasional marijuana??use.??He does not endorse use of any other substances such as cocaine or other stimulants, opioids, benzos or other illicit pills, tobacco. Review of Systems Reporting nausea, anxiety, fatigue Physical Exam Vitals & Measurements T:??97.8?F?? TMIN:??97.3?F?? TMAX:??98.4?F?? HR:??91??(Peripheral)?? RR:??16?? BP:??120/69?? SpO2:??98%?? General:??well developed, well nourished,??appears to be stated age.??Breathing is??even and unlabored.??In no acute distress,??no diaphoresis. Mental Status Exam: Appearance:??casual?? Attitude:??cooperative? Eye contact:??normal Motor activity:??calm, no aberrant movements? Mood:??anxious? Affect:??congruent? Speech:??fluent, unimpaired? Judgment:??appears intact? Insight:??appears intact? Thought process:??linear? Reliability:??likely reliable source? Delusions or hallucinations:??denies Fund of knowledge:??intact Assessment/Plan Alcohol use disorder (F10.90) Alcohol withdrawal (F10.939):??. Does not sound like pt??had resumed to drinking for very long, maybe a day or so. Because of this,??pt should really not have that difficult of a withdrawal period, and it may be quite short. Feel free to d/c CIWA if pt appears stable and scores are low. ?? Pt has not received any opioids here, and so long as he does not in the meantime, please administernaltrexone 380mg IM x1 at some point prior to d/c. He has enough campral on hand at home for now. Pt will need to continue to follow up with his outpatient clinic. ?? Patient would like to get back into the treatment program [facility] that he was recently at. Unfortunately, addiction??coordinator is out sick this week, likely social work will need to get involved to facilitate. Pt was interested in therapy, which he can self refer for with [facility]: [facility] Therapy, [address] [place] [address], Walk in hours for therapy are Mon-Fri from 8:00am-8:00pm. ?? Sent update via??[employer] to Dr Bazzi. Addiction??Service will sign off at this time. Thank you for allowing us to participate in the careof this patient. Please contact me with any questions or concerns. Problem List/Past Medical History Ongoing Alcohol use disorder, severe, dependence Alcohol withdrawal Essential Hypertension Fatty liver 2020 Hyperlipidemia Impaired fasting glucose Metabolic acidosis Moderate recurrent major depression Procedure/Surgical History ???Reference laboratory ER [facility] (10/29/2021)???Electrocardiogram (07/17/2021)???CT of abdomen and pelvis nad (05/06/2021)???Electrocardiogram sinus (05/03/2021)???Reference laboratory ER [facility] (03/22/2021)???Reference laboratory (01/06/2021)???Ultrasound of abdominal - Echogenic liver likely fatty infiltration (01/05/2021)???Ultrasound scan of eek liver fatty ;iver (01/04/2021)???CT angiography of thorax/abd/pelvs nad (07/06/2019)???CT of brain /c spine nad (07/06/2019)???EKG sinus (07/02/2019)???EKG (06/30/2019)???Reference laboratory (06/30/2019)???Reference (Outside) Laboratory (05/31/2019)???CT of thorax nad (05/03/2019)???Chest X-ray nad (03/19/2019)???EKGsinus 130 normal pr qtc qrsnonspecific st t (03/19/2019)???Reference laboratory (03/19/2019)???Electrocardiogram, routine ECG with at least 12 leads; with interpretation and report (05/02/2017)???Reference (Outside) Laboratory(05/02/2017)???Electrocardiogram, routine ECG with at least 12 leads; with interpretation and report (11/01/2014)???Ambulatory blood pressure monitoring, utilizing a system such as magnetic tape and/or computer disk, for 24 hours or longer; including recording, scanning analysis, interpretation andreport (06/11/2010)???Computed tomography, abdomen; with contrast material(s) (05/16/2010)???Duplexkidney (04/24/2010)???Echocardiography, transthoracic, real-time with image documentation (2D), includes M-mode recording, when performed, complete, with spectral Doppler echocardiography, and with color flow Doppler echocardiography (04/22/2010)???Electrocardiogram, routine ECG with at least 12 leads; interpretation and report only (04/16/2010) Medications Inpatient Acetaminophen Tablet, 650 mg, By Mouth, Every 4 hours, PRN Ativan Inj, 2 mg, IV Push Slowly, Every hour, PRN Ativan Tablet, 1 mg, By Mouth, Every 2 hours, PRN Ativan Tablet, 2 mg, By Mouth, Every 2 hours, PRN busPIRone 10 mg oral tablet, 30 mg, By Mouth, 2 times a day Docusate Sodium Capsule, 100 mg= 1 capsule, By Mouth, 2 times a day, PRN FLUoxetine 20 mg oral capsule, 40 mg, By Mouth, Daily Folic Acid Tablet, 1 mg, By Mouth, Daily Melatonin Tablet, 3 mg, By Mouth, Daily at bedtime, PRN MiraLax Powder, 17 Gm= 1 pack/packet, By Mouth, Daily, PRN Multivit Therapeutic/Minerals Tablet, 1 tablet, By Mouth, Daily NaCL 0.9% Flush, 3 mL, IV Push, Every 8 hours NaCL 0.9% Flush, 3 mL, IV Push, Every 8 hours, PRN Protonix 20 mg oral delayed release tablet, 20 mg, By Mouth, Daily Pyridoxine Tablet, 50 mg, By Mouth, Daily Robitussin DM Liquid, 10 mL, By Mouth, Every 4 hours, PRN Senna Tablet, 8.6 mg= 1 tablet, By Mouth, 2 times a day, PRN Simethicone Tablet, 80 mg, Chew, 3 times a day, PRN Thiamine Tablet, 100 mg, By Mouth, 2 times a day traZODone 50 mg oral tablet, 50 mg, By Mouth, Daily at bedtime Home acamprosate 333 mg oral delayed release tablet, 666 mg= 2 tablet, By Mouth, 3 times a day, 1 refills busPIRone 30 mg oral tablet, 30 mg= 1 tablet, By Mouth, 2 times a day FLUoxetine 20 mg oral capsule, 40 mg= 2 capsule, By Mouth, Daily folic acid 1 mg oral tablet, 1 mg, By Mouth, Daily multivitamin Multiple Vitamins oral capsule, 1 capsule, By Mouth, Daily Protonix 20 mg oral delayed release tablet, 20 mg= 1 tablet, By Mouth, Daily traZODone 50 mg oral tablet, 50 mg= 1 tablet, By Mouth, Daily at bedtime Vivitrol 380 mg intramuscular injection, extended release Allergies NKA Social History Alcohol Frequency: Daily. Type: Liquor. Other: DRINKING A HANDLE OF VODKA DAILY FOR LAST 5 DAYS. PRIOR A HANDLE WOULD LAST ABOUT 3 DAYS.. Electronic Cigarette/Vaping Electronic Cigarette Use: Never. Employment/School Status: Unemployed. Other: FAMILY BUSINESS JUST CLOSED. Exercise Self assessment: Good condition. Other: peloton. Regular exercise: Yes. Exercise frequency: 3-4 times/week. Exercise type: Aerobics, Weight lifting. Home/Environment Living situation: Home/Independent. Lives with: Alone. Nutrition/Health Diet: Regular. Other Name: uses seat belt always/. Sexual Sexually involved in last 6 months: No. Other sexual concerns: only safe sex. STD/HIV prevention: Condom use 100% of the time. Substance Abuse Use: Never. Other: CBD OIL. Tobacco Use: Never smoker. Family History ASHD - Atherosclerotic heart disease: Negative: Mother, Father and Mat. Grandmother. Alcoholism: Mother and Father.Negative: Brother and Mat. Grandmother. Alzheimer's disease: Negative: Mat. Grandmother. Asthma: Negative: Mother, Father and Brother. COPD: Negative: Mother and Father. Cancer of colon: Negative: Mother and Father. Cancer of lung: Pat. Grandfather. Cancer of prostate: Negative: Father. DVT - Deep vein thrombosis: Negative: Mother, Father, Brother and Mat. Grandmother. Depression: Negative: Mother and Father. Diabetes mellitus type I: Negative: Mother, Father, Brother and Mat. Grandmother. Diabetes mellitus type II: Negative: Mother, Father, Brother and Mat. Grandmother. Hyperlipidemia: Mat. Grandmother.Negative: Mother, Father and Brother. Hypertension: Mother, Father, Mat. Grandmother and Other.Negative: Brother. Migraine: Negative: Mother and Father. Stroke: Mat. Grandmother. Thyroid disease: Negative: Mother, Father, Brother and Mat. Grandmother. Immunizations Vaccine Date Status tetanus/diphtheria/pertussis, acel(Tdap) 07/12/2022 Given hepatitis B adult vaccine 02/19/2022 Recorded Hepatitis A Adult Vaccine 02/19/2022 Recorded influenza virus vaccine, inactivated 02/15/2022 Recorded tetanus-diphtheria toxoids (Td) 01/30/2022 Recorded SARS-CoV-2 (COVID-19) mRNA-1273 vaccine 05/28/2021 Recorded Comments : BOOSTER influenza virus vaccine, inactivated 04/17/2021 Given Comments : [facility]# ON THE [address] 31380-937-55 hepatitis B adult vaccine 01/15/2021 Given pneumococcal 13-valent vaccine 01/11/2021 Given Comments : [facility]: [id number] SARS-CoV-2 (COVID-19) mRNA-1273 vaccine 09/27/2020 Recorded SARS-CoV-2 (COVID-19) mRNA-1273 vaccine 08/30/2020 Recorded influenza virus vaccine, inactivated 07/09/2020 Given influenza virus vaccine, inactivated 04/20/2019 Given influenza virus vaccine, inactivated 03/10/2017 Given Comments : [03/10/2017] [facility] 43739-372-19 Hepatitis A Adult Vaccine 10/10/2013 Given Comments : [10/10/2013] #1 tetanus/diphtheria/pertussis, acel(Tdap) 09/13/2012 Given FluLaval (oldterm) 04/16/2010 Given tetanus-diphtheria toxoids (Td) 04/29/2004 Given Comments : historical data Note * Roseann Humphrey RN: PERFORM Event Display: Discharge/Transfer Note Hospital Authored Date: [id number] Nursing Discharge Note Entered On: 05/28/2023 13:04 EST Performed On: 05/28/2023 13:04 EST by Roseann Humphrey RN Nursing Discharge Note 2 Discharge Time : 05/28/2023 13:02 EST Discharge Level of Care at Discharge : Home/Fdc/Foster Care Patient Left Unit Via : Wheelchair Patient Accompanied Off Unit with : Responsible adult DC Instructions Provided & Signed by Pt : Yes Patient Understands D/C Instructions : Yes Patient Instructions Discharge Signed : Yes Did Pt have Specialty Bed or Wound Vac : No Roseann Humphrey RN - 05/28/2023 13:04 EST * Charlene Bazzi MD: PERFORM Event Display: Discharge/Transfer Note Hospital Authored Date: [id number] Patient: ??JULIOCESAR BOATENG ? Age:??37 Years?Sex:??Male?:??1985? 05/28/2023 ?? To whom it may concern ?? Juliocesar??Kilo was admitted to [facility]??from 05/25/2023 to 05/28/2023 ?? He received naltrexone 380 mg IM??on 05/28/2023 prior to discharge. ?? Sincerely, ?? Charlene Bazzi MD Hospital Medicine [place], [place] * Charlene Bazzi MD: PERFORM Event Display: Discharge/Transfer Note Hospital Authored Date: [id number] Patient: ??JULIOCESAR BOATENG ? Age:??37 Years?Sex:??Male?:??1985?? Patient Information Discharge Location: [facility] Primary Care Physician: Greg Ponce DO Admit Date/Time: 05/25/23 01:15 Discharge Disposition Discharge Disposition: Home: No Services Discharge Diagnosis ?? Alcohol use (Z78.9) Alcohol use disorder (F10.90) Alcohol withdrawal (F10.939) Cellulitis of arm (L03.119) Depression (F32.A) Exposure to COVID-19 virus (Z20.822) High anion gap metabolic acidosis (E87.29) Essential Hypertension ?? _ Discharge Medications ?? Acamprosate (acamprosate 333 mg oral delayed release tablet)?2?tab(s)?666?Milligram?By Mouth?3 times a day BusPIRone (busPIRone 30 mg oral tablet)?1?tab(s)?30?Milligram?By Mouth?2 times a day Fluoxetine (FLUoxetine 20 mg oral capsule)?40?Milligram?2?capsule?By Mouth?Daily Folic Acid (folic acid 1 mg oral tablet)?1?Milligram?By Mouth?Daily Multivitamin (multivitamin Multiple Vitamins oral capsule)?1?capsule?By Mouth?Daily Naltrexone (Vivitrol 380 mg intramuscular injection, extended release)?INJECT INTO THE MUSCLE EVERY 4 WEEKS Pantoprazole (Protonix 20 mg oral delayed release tablet)?1?tab(s)?20?Milligram?By Mouth?Daily Sulfamethoxazole/Trimethoprim (sulfamethoxazole-trimethoprim 800 mg-160 mg oral tablet)?1?tab(s)?By Mouth?2 times a day?for 7?Days Trazodone (traZODone 50 mg oral tablet)?50?Milligram?1?tablet?By Mouth?Daily at bedtime ?? Medications Started ?? Bactrim to complete the course Medications Discontinued None Doses Changed None Allergies Allergies ?(Active and Proposed Allergies Only) NKA? (Severity: Unknown severity, Onset: Unknown) ? Hospital Course ?? 37 year old male with??a past medical history of alcohol use??disorder??with previous withdrawal, depression??and HTN who??presents to the ED with??complaints of ETOH withdrawal.? Alcohol withdrawal (F10.939):?? Overall seems to be improving???last CIWA score has been??2 and 4 Seen by addiction medicine and appreciate recommendation Plan Continue with??acamprosate Given??dose of naltrexone 380 mg prior to discharge and will be continued every 4 weeks He has information about outpatient follow-up ?? Cellulitis of arm (L03.119) Noted to have??redness and swelling??in the right arm??around the site of IV access.?? No fluctuance.?? Likely could have infiltrated??IV He was started on Bactrim??and the next day???redness much improved from the demarcated line Plan Bactrim to complete the course ?? Exposure to COVID-19 virus (Z20.822) His roommate tested positive for COVID-19 He has no fever or chills, no respiratory symptoms He tested negative for COVID-19 Plan Discussed with patient to monitor for symptoms and if with any symptoms should be tested ?? High anion gap metabolic acidosis (E87.29):??Resolved Depression (F32.A):??fluoxetine, buspirone. ?? Objective ?? Overnight event noted???redness of the arm and being treated for cellulitis Today morning overall the cellulitis seems improved He otherwise feels better??feels good to go home He says he has all the information and is very motivated to follow-up ? Vital Signs?? Temperature: 98.6 DegF (05/28/23 04:36:00) Temperature Route: Oral (05/28/23 04:36:00) Pulse Rate:??110 bpm??High (05/28/23 08:20:00) Respiratory Rate: 18 br/min (05/28/23 09:49:00) Systolic Blood Pressure: 133 mm Hg (05/28/23 08:20:00) Diastolic Blood Pressure:??89 mm Hg??High (05/28/23 08:20:00) Blood pressure sites: Arm, left (05/28/23 04:36:00) Mean Arterial Pressure: 85 mm Hg (05/28/23 04:36:00) Pulse Pressure: 54 mm Hg (05/28/23 04:36:00) Oxygen Saturation: 99 % (05/28/23 04:36:00) Mode of Delivery (Oxygen): Room air (05/28/23 04:36:00) Early Warning Score: 4 (05/28/23 09:49:37) ? . Physical Exam ?? General???pleasant man, no acute distress at rest Respiratory???no wheezing Cardiovascular???normal heart sounds Derm???redness??with some swelling??on right arm???around antecubital fossa. ??Overall seems much improved from the demarcated lines still has some redness and induration??likely at the site of IV access.?? Right radial pulse palpable Pending Results No Pending Results Patient Education Titles Discharge Instructions for Cellulitis?? Sulfamethoxazole/Trimethoprim Oral Tablet?? Follow-Up Appointments Added Follow Up ?Time Frame ?Comments Greg Pnoce DO Patient Instructions ?? You had exposure to COVID-19 virus. ??However you tested negative for COVID-19 on 05/27.?Monitorfor symptoms??and if with any new fever or chills, respiratory symptoms??- will need to be tested. ? Post Discharge Care Diet: ??Regular Diet ?? Activity: ??as tolerated ?? Code Status: ??Full ?? Home Health Face to Face ^HomeHealthFTF Results Discharge Labs BLOOD COUNT & DIFF WBC 9.1 k/mm3 ()?? 05/27/2023 04:23 RBC 4.66 m/mm3 (Low)?? 05/27/2023 04:23 Hgb 12.6 Gm/dL (Low)?? 05/27/2023 04:23 Hct 38.5 % (Low)?? 05/27/2023 04:23 MCV 82.6 femtoliters ()?? 05/27/2023 04:23 MCH 27.0 pg ()?? 05/27/2023 04:23 MCHC 32.7 g/dL (Low)?? 05/27/2023 04:23 Platelet Count 135 k/mm3 (Low)?? 05/27/2023 04:23 RDW-SD 45.1 femtoliters ()?? 05/27/2023 04:23 MPV 10.4 femtoliters ()?? 05/27/2023 04:23 Nucleated RBC (Automated) 0.0 #/100 WBC'S ()?? 05/27/2023 04:23 Abs. NRBC 0.0 k/mm3 ()?? 05/27/2023 04:23 Abs. Neut 7.1 k/mm3 (High)?? 05/24/2023 22:30 Abs. Lymph 1.8 k/mm3 ()?? 05/24/2023 22:30 Abs. [place] 0.7 k/mm3 ()?? 05/24/2023 22:30 Abs. Eo 0.0 k/mm3 ()?? 05/24/2023 22:30 Abs. Baso 0.1 k/mm3 ()?? 05/24/2023 22:30 Neut % 73.1 % ()?? 05/24/2023 22:30 Lymph % 18.4 % ()?? 05/24/2023 22:30 [place] % 7.2 % ()?? 05/24/2023 22:30 Eos % 0.0 % ()?? 05/24/2023 22:30 Baso % 1.0 % ()?? 05/24/2023 22:30 Imm Gran 0.3 % ()?? 05/24/2023 22:30 Abs. Imm Gran 0.0 k/mm3 ()?? 05/24/2023 22:30 ?? CHEM GENERAL Sodium 137 mmol/L ()?? 05/27/2023 04:23 Potassium 3.6 mmol/L ()?? 05/27/2023 04:23 Chloride 100 mmol/L ()?? 05/27/2023 04:23 Bicarbonate Level 27 mmol/L ()?? 05/27/2023 04:23 Anion Gap 10 ()?? 05/27/2023 04:23 Glucose Level 95 mg/dL ()?? 05/27/2023 04:23 BUN 9 mg/dL ()?? 05/27/2023 04:23 Creatinine-Blood 0.8 mg/dL ()?? 05/27/2023 04:23 Estimated GFR Creatinine 119 ML/MIN/1.73 M2 ()?? 05/27/2023 04:23 Calcium 9.0 mg/dL ()?? 05/27/2023 04:23 Magnesium 2.2 mg/dL ()?? 05/26/2023 06:21 Protein, Total 8.4 Gm/dL (High)?? 05/24/2023 22:30 Albumin 5.3 Gm/dL (High)?? 05/24/2023 22:30 AG Ratio 1.7 ()?? 05/24/2023 22:30 Alkaline Phosphatase 77 units/L ()?? 05/24/2023 22:30 AST (SGOT) 39 units/L ()?? 05/24/2023 22:30 ALT (SGPT) 34 units/L ()?? 05/24/2023 22:30 Bilirubin, Total 0.5 mg/dL ()?? 05/24/2023 22:30 ?? ENDOCRINE/TUMOR MARKER TSH 0.55 uIU/mL ()?? 05/24/2023 22:30 ? TOXICOLOGY/TDM Ethanol, Serum or Plasma 269 mg/dL (Abnormal)?? 05/24/2023 22:30 Barbiturate Screen, Urine NONE DETECTED ()?? 05/24/2023 22:36 Cannabinoid Screen, Urine POSITIVE (Abnormal)?? 05/24/2023 22:36 Cocaine Metabolite Screen, Urine NONE DETECTED ()?? 05/24/2023 22:36 Benzodiazepine Screen, Urine NONE DETECTED ()?? 05/24/2023 22:36 Amphetamine Screen, Urine NONE DETECTED ()?? 05/24/2023 22:36 Opiate Screen, Urine NONE DETECTED ()?? 05/24/2023 22:36 ? URINE OTHER Est Creatinine Clearance 121.15 mL/min ()?? 05/26/2023 07:27 ? VIROLOGY Influenza A PCR NEGATIVE ()?? 05/27/2023 18:30 Influenza B PCR NEGATIVE ()?? 05/27/2023 18:30 RSV PCR NEGATIVE ()?? 05/27/2023 18:30 COVID-19 PCR Specimen Source NASAL ()?? 05/27/2023 18:30 COVID-19 PCR Result NEGATIVE ()?? 05/27/2023 18:30 ? 35_ minutes spent on discharge * Roseann Humphrey RN: PERFORM Event Display: Patient Education/Instruction Authored Date: [id number] Inpatient Adult Discharge Instructions [address] [address] Name: JULIOCESAR BOATENG : 1985 Visit: 05/25/2023 01:15:00 Current Date: 05/28/2023 12:07 Account: [id number] Inpatient Adult Discharge Instructions We would like [...] and their families. Surveys are administered by [employer] ?? If further treatment with your primary care physician or another doctor is recommended, it is important for you to keep the appointment. Call your primary care physician or return to the Emergency Department immediately if your condition worsens, fails to improve, or new symptoms develop. If you need to find a doctor, you can call [facility] for a referral at [phone] or toll free at [phone]) or log in to [email or web address].. ?? [facility], in keeping with [facility] guidance, no longer requires face masks [...] a health care primo of your choosing. [employer] is a website that allows you to securely view your medical information including your hospital discharge summary, office visit summaries, medications and follow-up visits. You can also request appointments, renew medications, and request access to your medical information using a health care primo of your choosing, or just ask a question. You can enroll at [email or web address] or register during your next office visit. You have been discharged from [facility], Patient Care Unit: SW7. If you have any questions regarding these instructions after you leave, please call us and we will be happy to assist you. [facility] Your Care Team Attending Physician Charlene Bazzi MD Discharging Providers Charlene Bazzi MD Reason for Admission Alcohol withdrawal Your Diagnosis Alcohol withdrawal Alcohol use Alcohol withdrawal Depression High anion gap metabolic acidosis Alcohol use disorder Cellulitis of arm Exposure to COVID-19 virus Tests Performed Below is a partial list of the tests performed during your hospitalization. You may have had other tests and procedures not included in this list. Please discuss all test results with your provider. Alcohol Level Amphetamine Urine Screen Barbiturate Urine Screen Basic Metabolic Panel Benzodiazepine Urine Screen Cannabinoid Urine Screen CBC CBC w/ Differential Cocaine Urine Screen Comprehensive Metabolic Panel COVID-19, RSV, and Flu A/B, Rapid PCR Magnesium Level Opiate Screen Urine TSH with T4 Reflex (Adults Only) Primary Care Provider Greg Ponce DO Advance Directive Health Care Proxy on File Yes - Health Care Proxy Discharge Vitals Temperature: 98.6 DegF Height: 172 cm Pulse Rate:??110 bpm??High Weight: 78.5 kg Respiratory Rate: 18 br/min Body Mass Index:??26.53 kg/m2??High Systolic Blood Pressure: 133 mm Hg Body surface area: 1.94 Diastolic Blood Pressure:??89 mm Hg??High ?? Oxygen Saturation: 99 % ?? Studies Pending All tests and labs ordered during this hospital stay have been completed unless listed below. Please discuss all pending results with your provider listed above in these instructions. ?? No incomplete studies found What to do next Instructions From Your Doctor ?? You had exposure to COVID-19 virus. ??However you tested negative for COVID-19 on 05/27.?Monitorfor symptoms??and if with any new fever or chills, respiratory symptoms??- will need to be tested. ? Discharge Orders Diet:??Regular Diet Activity:??as tolerated Code Status:??Full You Need to Schedule the Following Appointments Follow Up with??Greg Ponce DO Where: [address] [place] [address]- Discharge Medications JULIOCESAR BOATENG :1985 Visit Date:05/25/2023 Medications: Please continue your medications until treatment is completed or stopped by your provider. Medications not listed below should be discontinued. Discuss any questions related to medications with your provider. What How Much When Instructions Next Dose New Sulfamethoxazole/ Trimethoprim (sulfamethoxazole-trimethoprim 800 mg-160 mg oral tablet) 1 tab(s) Oral Twice a day Duration: 7 Days Pickup at [facility] 3 Tonight before bed Unchanged Acamprosate (acamprosate 333 mg oral delayed release tablet) 2 tab(s) Oral 3 times a day as reg regimen Unchanged BusPIRone (busPIRone 30 mg oral tablet) 1 tab(s) Oral Twice a day Tonight before bed Unchanged Fluoxetine (FLUoxetine 20 mg oral capsule) 2 capsule Oral Daily Tomorrow morning Unchanged Folic Acid (folic acid 1 mg oral tablet) 1 Milligram Oral Daily Tomorrow morning Unchanged Multivitamin (multivitamin Multiple Vitamins oral capsule) 1 capsule Oral Daily Tomorrow morning Unchanged Naltrexone (Vivitrol 380 mg intramuscular injection, extended release) INJECT INTO THE MUSCLE EVERY 4 WEEKS ?? Received today 05/28.. 4 weeks from [id number] Unchanged Pantoprazole (Protonix 20 mg oral delayed release tablet) 1 tab(s) Oral Daily Tomorrow morning Unchanged Trazodone (traZODone 50 mg oral tablet) 1 tab(s) Oral Daily at Bedtime Tonight before bed Pharmacy Information [facility]: [address], [place] [id number] [phone] Test Results Below is a partial list of the most recent Laboratory test results done prior to this discharge. You may have had other tests and procedures not included in this list. Please discuss all test resultswith your provider. Est Creatinine Clearance - 121.15 mL/min (05/26/2023) Alcohol Level (05/24/2023) ???Ethanol, Serum or Plasma - 269 mg/dL Amphetamine Urine Screen (05/24/2023) ???Amphetamine Screen, Urine - NONE DETECTED Barbiturate Urine Screen (05/24/2023) ???Barbiturate Screen, Urine - NONE DETECTED Basic Metabolic Panel (05/27/2023) ???Sodium - 137 mmol/L???Potassium - 3.6 mmol/L???Chloride - 100 mmol/L???Bicarbonate Level - 27 mmol/L???Anion Gap - 10???Glucose Level - 95 mg/dL???BUN - 9 mg/dL???Creatinine-Blood - 0.8 mg/dL???Estimated GFR Creatinine - 119 ML/MIN/1.73 M2???Calcium - 9.0 mg/dL Benzodiazepine Urine Screen (05/24/2023) ???Benzodiazepine Screen, Urine - NONE DETECTED Cannabinoid Urine Screen (05/24/2023) ???Cannabinoid Screen, Urine - POSITIVE CBC (05/27/2023) ???WBC - 9.1 k/mm3???RBC - 4.66 m/mm3???Hgb - 12.6 Gm/dL???Hct - 38.5 %???MCV - 82.6 femtoliters???MCH - 27.0 pg???MCHC - 32.7 g/dL???Platelet Count - 135 k/mm3???RDW-SD - 45.1 femtoliters???MPV - 10.4 femtoliters???Nucleated RBC (Automated) - 0.0 #/100 WBC'S???Abs. NRBC - 0.0 k/mm3 CBC w/ Differential (05/24/2023) ???WBC - 9.7 k/mm3???RBC - 6.18 m/mm3???Hgb - 16.7 Gm/dL???Hct - 50.8 %???MCV - 82.2 femtoliters???MCH - 27.0 pg???MCHC - 32.9 g/dL???Platelet Count - 243 k/mm3???RDW-SD - 45.2 femtoliters???MPV - 10.1 femtoliters???Nucleated RBC (Automated) - 0.0 #/100 WBC'S???Abs. NRBC - 0.0 k/mm3???Abs. Neut - 7.1 k/mm3???Abs. Lymph - 1.8 k/mm3???Abs. [place] - 0.7 k/mm3???Abs. Eo - 0.0 k/mm3???Abs. Baso - 0.1 k/mm3???Neut % - 73.1 %???Lymph % - 18.4 %???[place] % - 7.2 %???Eos % - 0.0 %???Baso % - 1.0 %???Imm Gran - 0.3 %???Abs. Imm Gran - 0.0 k/mm3 Cocaine Urine Screen (05/24/2023) ???Cocaine Metabolite Screen, Urine - NONE DETECTED Comprehensive Metabolic Panel (05/24/2023) ???Sodium - 141 mmol/L???Potassium - 4.6 mmol/L???Chloride - 92 mmol/L???Bicarbonate Level - 13 mmol/L???Anion Gap - 36???Glucose Level - 95 mg/dL???BUN - 14 mg/dL???Creatinine-Blood - 0.8 mg/dL???Estimated GFR Creatinine - 119 ML/MIN/1.73 M2???Calcium - 9.6 mg/dL???Protein, Total - 8.4 Gm/dL???[place] min - 5.3 Gm/dL???AG Ratio - 1.7???Alkaline Phosphatase - 77 units/L???AST (SGOT) - 39 units/L???ALT (SGPT) - 34 units/L???Bilirubin, Total - 0.5 mg/dL COVID-19, RSV, and Flu A/B, Rapid PCR (05/27/2023) ???Influenza A PCR - NEGATIVE???Influenza B PCR - NEGATIVE???RSV PCR - NEGATIVE???COVID-19 PCR Specimen Source - NASAL???COVID-19 PCR Result - NEGATIVE Magnesium Level (05/26/2023) ???Magnesium - 2.2 mg/dL Opiate Screen Urine (05/24/2023) ???Opiate Screen, Urine - NONE DETECTED TSH with T4 Reflex (Adults Only) (05/24/2023) ???TSH - 0.55 uIU/mL Allergies (NKA means No Known Allergies) NKA Problems Active Problems??(9) Alcohol use disorder, severe, dependence?? Alcohol withdrawal?? Alcoholism?? Essential Hypertension?? Fatty liver us 2020?? Hyperlipidemia?? Impaired fasting glucose?? Metabolic acidosis?? Moderate recurrent major depression?? Education Materials Below is the list of Educational Leaflet Providered with your Discharge Instructions. Discharge Instructions for Cellulitis?? Sulfamethoxazole/Trimethoprim Oral Tablet?? Valuables and Belongings I fully understand and agree that [facility] accepts no responsibility for all my personal [...] patient Date for Pt to Sign Valuables/Belongings: 05/27/23 21:34:00 ?? Other Discharge Information ? Pulmonary Rehab [...] are strongly encouraged to quit. Please call [facility] Walkabout Link at [phone] or [phone] ([phone]) or log in to [email or web address] for referrals to smoking cessation programs. ?? 467 Suicide & Crisis Lifeline is available 22/12 if you or someone you know needs to find a reason to keep living. By calling 961 you'll be connected to a skilled, trained counselor at a crisis center in your area. INPATIENT DISCHARGE INSTRUCTIONS SIGNATURE PAGE JULIOCESAR BOATENG Location:[facility] Registration Date and Time:05/25/2023 01:15 EST Primary Care Physician: Greg Ponce DO, Attending Physician: Charlene Bazzi MD, I JULIOCESAR BOATENG, have received the above patient education materials/instructions and have verbalized understanding. If ambulance or transport services are being used I further acknowledge being given a choice of service. ?? If you need to contact me, please call me at this number: . Patient/Collar Padder Blindstitch Name: Patient/Collar Padder Blindstitch Signature: Relationship to Patient: Witness Name/Signature: Date: * Charlene Bazzi MD: PERFORM Event Display: Patient Education Leaflets Authored Date: [id number] Discharge Instructions for Cellulitis ?? [id number] Discharge Instructions for Cellulitis You have been diagnosed with cellulitis. This is an infection in the deepest layers of the skin. The infection may even spread to the muscle in some cases. Cellulitis is caused by bacteria. The bacteria can??enter the body through broken skin. This can happen with a cut, scratch, animal bite, or aninsect bite that has been scratched. You may have been treated in the hospital with antibiotics andfluids. You will likely be given a prescription for antibiotics to take at home. This sheet will help you take care of yourself at home. Home care When you are home: ??? Take the prescribed antibiotic medicine you are given as directed until it is gone. Take it even if you feel better. It treats the infection and stops it from returning. Not taking all the medicine can make future infections hard to treat. ??? Keep the infected area clean. Follow all wound careinstructions from your healthcare provider. ??? When possible, raise the infected area above the level of your heart. This helps keep swelling down. ??? Brandon the boundary of the infected area so you can tell if it is growing. ??? Talk with your healthcare provider if you are in pain. Ask what kind of nheg-haq-qbahdfo medicine you can take for pain. ??? Apply clean bandages as advised. Dispose of dirty bandages in a plastic bag that is tied at the top. ??? Wash your hands often to prevent spreading the infection. Always wash your hands before and after cleaning the area. If anyone helps you with your care, have them do the same. ??? Take your temperature once a day for a week. In the future, wash your hands before and after you touch cuts, scratches, or bandages. This will help prevent infection.? When to call your healthcare provider Call your healthcare provider right away if you have any of the following: ??? The infection does not get better within 1 to 2 days after treatment starts ??? Trouble or pain when moving the joints above or below the infected area ??? Discharge or pus draining from the area ??? Fever??of??100.4??F (38??C) or higher, or as directed by your healthcare provider ??? Pain that gets worse in or around the infected? Redness that gets worse in or around the infected area,??particularly if the areaof redness expands to a wider area ??? Shaking chills ??? Swelling of the infected area ??? Vomiting ?? Last Reviewed Date: 2021 ?? [employer]. All rights reserved. This information is not intended as a substitute for professional medical care. Always follow your healthcare professional's instructions. ?? * Charlene Bazzi MD: PERFORM Event Display: Patient Education Leaflets Authored Date: [id number] Sulfamethoxazole/Trimethoprim Oral Tablet ?? [address] Sulfamethoxazole/Trimethoprim Oral Tablet Brands: Bactrim Uses For infection. ?? Instructions Swallow with a full glass (8 oz) of water unless your doctor gives you different instructions. You may take with food to prevent stomach upset. Space doses evenly to keep a steady amount of medicine in the body. Keep the medicine at room temperature. Avoid heat and direct light. Drink plenty of water while on this medicine. This medicine can make you sensitive to the sun. Use sunscreen or protective clothing when in sun. If you forget to take a dose [...] about all medicines taken. Include prescription and vsff-bhb-ywhyfdr medicines, vitamins, and herbal medicines. Speak with your doctor or pharmacist before starting or stopping any medicine. Tell your doctor if symptoms do not get better or if they get worse. Keep using this medicine for the full number of days that it is prescribed. Do not stop the medicine even if you start to feel better. This medicine may affect your blood sugar levels. If you have diabetes, talk to your doctor before changing the dose of your diabetes medicine. If you have diabetes and use urine glucose tests, this medicine may cause incorrect results. Pleasecheck with your doctor before making any changes to your diabetes treatment plan. Keep all appointments for medical exams and tests while on this medicine. ?? Cautions Tell your doctor and pharmacist if you ever had an allergic reaction to a medicine. Some patients taking this medicine have experienced serious side effects. Please speak with your doctor to understand the risks and benefits associated with this medicine. This medicine has been associated with a rare but serious skin rash. If you notice any red, peelingor blistered skin, contact your doctor immediately. Do not use the medication any more than instructed. Speak with your health care provider before receiving any vaccinations. Please tell your doctor if you have moderate to severe diarrhea while on this medicine. Do not treat the diarrhea with albx-vcp-jgafgvs diarrhea medicine. Do not breastfeed while on this medicine. This medicine can hurt a new baby in the womb. If you become while on this medicine, tell your doctor immediately. Your doctor may switch you to a different medicine. Do not share this medicine with anyone who has not been prescribed this medicine. ?? Side Effects The following is a list of some common side effects from this medicine. Please speak with your doctor about what you should do if you experience these or other side effects. ??? decreased appetite ??? diarrhea ??? nausea and vomiting Call your doctor or get medical help right away if you notice any of these more serious side effects: ??? severe or persistent abdominal pain ??? bleeding or bruising ??? blurry vision ??? severe, watery or bloody diarrhea ??? swelling in the neck or throat ??? severe or persistent headache ??? fast,irregular, or slow heartbeat ??? signs of kidney damage (such as change in urine color or bubbly urine) ??? signs of liver damage (such as yellowing of eye or skin, dark urine, or unusual tiredness) ??? muscle weakness ??? sore or stiff neck ??? seizures ??? red, peeling or blistering skin ??? vaginal itching or yeast infection A few people may have an allergic reaction to this medicine. Symptoms can include difficulty breathing, skin rash, itching, swelling, or severe dizziness. If you notice any of these symptoms, seek medical help quickly. ?? Extra Please speak with your doctor, nurse, or pharmacist if you have any questions about this medicine. ?? [email or web address] IMPORTANT NOTE: This document tells you briefly how to take your medicine, but it does not tell youall there is to know about it. Your doctor or pharmacist may give you other documents about your medicine. Please talk to them if you have any questions. Always follow their advice. There is a more complete description of this medicine available in [place]o. Scan this code on your smartphone or tablet or use the web address below. You can also ask your pharmacist for a printout. If you have any questions, please ask your pharmacist. The display and use of this drug information is subject to Terms of Use. Copyright(c) 2022 [employer]. ?? [employer]. All rights reserved. This information is not intended as a substitute for professional medical care. Always follow your healthcare professional's instructions. ?? Patient Care team information Care Team Personnel Name: Roseann Humphrey RN Position: S RN Member Role: Primary Care Nurse Name: Samy Coleman RN Position: S RN Member Role: Primary Care Nurse Name: Alix Vargas RN Position: S RN Member Role: Primary Care Nurse Name: Nina Fulton RN Position: [facility] RN Member Role: Primary Care Nurse Name: Mirela Fritz RN Position: [facility] RN Member Role: Primary Care Nurse Name: Greg Ponce DO Position: [facility] Physician - Primary Care Member Role: PCP Address: Address: [address] [place] [id number] Name: Ana M Barnes Position: [facility] RN Member Role: Primary Care Nurse Name: Neli Alcala RN Position: [facility] RN Member Role: Primary Care Nurse Name: Romel DA SILVA Attending Position: [facility] ED Medicine MD Name: Renetta Lyles RN Position: [facility] ED RN W/OE and Tasks Member Role: Patient Care Provider Name: Neli Dickey Position: [facility] ED OA Charge Member Role: ED Associate Care Team Related Persons Name: DOMENICA BOATENG Address: [address] [place] [address] UM Name: RENETTA BALDWIN Address: home [address] [place] [address]
[2023-05-31 15:12] LABS: MANUAL DIFF FLAG NO
[2023-05-31 15:14] LABS: Basophils Percent Auto 0.6 % (0-2); Eosinophils Absolute Auto 0.1 X10*3/uL (0.0-0.4); Eosinophils Percent Auto 1.3 % (0-4); Hematocrit 37.7 % (42.0-52.0); Hemoglobin 12.8 g/dl (14.0-18.0); Imm Gran Abs Auto 0.02 X10*3/uL (0.00-0.03); Imm Gran Pct Auto 0.4 % (0.0-0.4); Lymphocytes Absolute Auto 1.2 X10*3/uL (1.2-4.9); Lymphocytes Percent Auto 23.5 % (20-40); Mean Corpuscular Hemoglobin 27.2 pg (27.0-33.0); Mean Corpuscular Volume 80.2 fL (80.0-98.0); Mean Platelet Volume 9.9 fL (9.4-12.4); Monocytes Absolute Auto 0.8 X10*3/uL (0.1-1.2); Monocytes Percent Auto 14.8 % (2-11); Neutrophils Absolute Auto 3.1 x10*3/uL (2.0-8.3); Neutrophils Percent Auto 59.4 % (45-73); Platelet Count 188 X10*3/uL (160-400); Red Cell Distribution Width 14.8 % (11.0-16.0); White Blood Count 5.2 X10*3/uL (4.8-10.8)
[2023-05-31 15:32] LABS: Partial Thromboplastin Time 36.6 SEC (26.0-36.4)
[2023-05-31 15:33] LABS: Anion Gap 16 (12-20); Blood Urea Nitrogen 10 mg/dL (9-16); Calcium 10.1 mg/dL (8.4-10.2); Carbon Dioxide 23 mmol/L (22-29); Chloride 102 mmol/L (96-108); Creatinine Clr Calc Pharmacy 112.4; Estimated Glomerular Filt Rate > 60; Glucose Random 113 mg/dL (60-115); Potassium 3.6 mmol/L (3.3-5.1); Sodium 137 mmol/L (135-145)
[2023-05-31 15:47] VITALS: BP 141/92; PULSE 77; TEMP 36.8; O2SAT 97
== END 2023-05-31 16:02 | disposition home or self-care (01) ==
PROVIDERS: Physician Assistant; Emergency Provider Emergency Medicine; PCP Family Medicine
DX: L03.113 Cellulitis of right upper limb (principal); I80.8 Phlebitis and thrombophlebitis of other sites; I82.611 Acute embolism and thrombosis of superficial veins of right upper extremity; I10 Essential (primary) hypertension; F10.10 Alcohol abuse, uncomplicated
CPT/HCPCS: 36415; 80048; 85025; 85610; 85730; 93971; 99283; 99284

== ENCOUNTER → 2023-06-16 11:25 | Outpatient (BNV) | payer OTHER, SELFPAY | PROVIDERS: PCP Family Medicine; Visit Provider Internal Medicine | DX: I82.721 Chronic embolism and thrombosis of deep veins of right upper extremity (principal) | CPT/HCPCS: 99204; 99214 ==

== ENCOUNTER 2023-07-15 16:17 | Outpatient (AMB) | payer OTHER, SELFPAY ==
--- NOTE | 2023-07-15 16:22 | A.OFFVISCC_ITS ---
Intake Intake Visit Reasons: MAT Visit Allergies No Known Allergies [NO KNOWN ALLERGIES] Allergy (Unknown, Verified 06/16/23 11:37) UNKNOWN HPI MAT Visit HPI Details Patient presents for AUD treatment follow up Has obtained a job at [employer] in [employer] Very happy with his new position Father has been bringing him to work for now Applying for a [employer] license Has been taking Campral and feels it has been helpful Has not had Vivitrol in some time --felt that it was making his mood low Still taking fluoxetine and buspirone [facility] Medical History Alcohol use disorder, severe, dependence Alcohol abuse Elevated LFTs Recurrent major depression-severe Alcohol withdrawal syndrome Hypertension Anxiety and depression Psychiatric disturbance Family History Other Lung cancer Social History Household Members: None Housing: House Do you presently have visiting nurse or other home services: No Alcohol intake: current Alcohol intake frequency: 3 or more drinks per day Alcohol type: hard liquor Patient Tobacco Use Status: Never used Tobacco e-Cigarette/Vaping Use: Never Used Second Hand Smoke Exposure: No Substance Use Type: Marijuana Advance Directives Date on File: 01/08/21 service: No Current occupational status: unemployed Sexual orientation: Straight/Heterosexual Review of Systems Const Reports as per HPI Assessment & Plan Assessment & Plan (1) Alcohol use disorder, severe, dependence: Code(s): F10.20 - Alcohol dependence, uncomplicated Plan: * continue PO naltrexone * Vivitrol--on hold per patient request * relapse prevention discussion * follow up 2 weeks Telehealth Telehealth Location of provider rendering services: practice address Location of patient: address on file Patient Identification confirmed using: Name, : Yes Telehealth method: voice only Patient verbally consented to treatment: Yes Patient verbally consented to billing insurance company: Yes Coding Level of Care Code Tele Est Pt Level 3 (20171) Diagnoses Alcohol use disorder, severe, dependence F10.20 Time Spent (min) 30 Comment 20 mins with patient remainder on chart review and documentation
--- OUTSIDE RECORDS SUMMARY | 2023-07-15 16:22 | XMS_ITS | Continuity of Care Document ---
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 Name Role Phone Greg Ponce DO Primary Care Physician [phone] Encounter [facility] Date(s): 06/21/23 - 06/24/[address] [address]- Encounter Diagnosis Alcohol withdrawal(Final) - 06/21/23 Alcohol use with withdrawal(Final) - 06/21/23 Alcoholic gastritis(Final) - 06/21/23 Discharge Disposition: A-D/C Home Attending Physician: Albaro Bryant DO Admitting Physician: Mary Lira MD Referring Physician: Oj Bradley MD Allergies, Adverse [...] [facility]# [address] [phone] 3Result Comment: [03/10/2017] [facility] [id number] 4Admin Note: historical data 5Result Comment: BOOSTER 6Result Comment: [facility]: [id number] Medications acamprosate 333 mg oral delayed release tablet 2 tablet = 666 mg, By Mouth, 3 times a day, # 180 tablet, 1 Refills, Maintenance, 02/06/23 10:35:00EDT, CR Tablet, [facility], 173, cm, 02/06/23 4:34:00 EDT, Height, 80.9, kg, 02/02/23 18:22:00EDT, Dry Weight Start Date: 02/06/23 Status: Ordered busPIRone 30 mg oral tablet 1 tablet = 30 mg, By Mouth, 2 times a day, # 180 tablet, 0 Refills, Maintenance, 12/06/21 4:19:00 EDT, Tablet, Partial fill upon patient request if the prescription is for a schedule II opioid drug. Start Date: 12/06/21 Status: Ordered cloNIDine 0.1 mg oral tablet 0.1 mg, By Mouth, 2 times a day, # 3 tablet, Refills 0, Tot. Refills 0, Maintenance, 06/24/23 9:06:00 EST, Route to Pharmacy Electronically, [facility], Partial fill upon patient request if the prescription is for a schedule II opioid drug., 174,... Start Date: 06/24/23 Stop Date: 06/26/23 Status: Ordered Eliquis 5 mg oral tablet 1 tablet = 5 mg, By Mouth, 2 times a day, 0 Refills, Maintenance, 06/21/23 13:15:00 EST, Partial fill upon patient request if the prescription is for a schedule II opioid drug. Start Date: 06/21/23 Status: Ordered FLUoxetine 20 mg oral capsule [...] tablet, By Mouth, Daily at bedtime, # 5 tablet, Refills 0, Tot. Refills 0, Maintenance, 06/24/23 9:06:00 EST, Route to Pharmacy Electronically, [facility], Partial fill upon patient request if the prescription is for a schedule II opioi... Start Date: 06/24/23 Stop Date: 06/29/23 Status: Ordered Vivitrol 380 mg intramuscular injection, [...] Exam Date Time Procedure Performing Provider Status 06/21/23 4:16 PM US RUQ Marie Hamilton; Auth ( Verified) Notes: (US RUQ) Reason For Exam: Abdominal Pain;Other: RESULT: US RUQ US RUQ Reason: Other:; Abdominal Pain; Clinical Question(s): Cholecystitis COMPARISON: None. FINDINGS: Liver: Diffusely echogenic parenchyma. No suspicious lesion. Smooth hepatic contour. Gallbladder: No gallstones. Normal wall thickness. No pericholecystic fluid. Negative Bolden sign. Biliary Tree: No intrahepatic or extrahepatic bile duct dilation is identified. Common duct measures: 0.4 cm. Pancreas: Obscured by overlying bowel gas. Right kidney: 10 cm in length. Normal parenchymal echotexture and thickness. No hydronephrosis, stone or mass. IMPRESSION: Echogenic liver likely representing hepatic steatosis. WSN: [id number] Ordering Physician: Oj Bradley Dictated By: Shane Mora MD Dictated Date/Time: 06/21/23 4:20 pm Reviewed By: Shane Mora MD Signed By: Shane Mora MD Signed Date/Time: 06/21/23 4:20 pm Transcribed By: REINIER Transcribed Date/Time: 06/21/23 4:18 pm Vital Signs Most recent to oldest [Reference Range]: 1 2 3 Height 174 cm (06/24/23 8:02 AM) 174 cm (06/23/23 3:23 PM) 174 cm (06/23/23 7:28 AM) Weight 75.4 kg (06/21/23 1:03 PM) 80 kg (06/21/23 8:51 AM) Oxygen Saturation [94-100 %] 100 % (06/24/23 8:02 AM) 99 % (06/24/23 4:00 AM) 99 % (06/23/23 8:00 PM) Pulse Rate [55-90 bpm] 86 bpm (06/24/23 9:42 AM) 86 bpm (06/24/23 8:02 AM) 47 bpm *L* (06/24/23 4:00 AM) Body Mass Index [18.5-24.99 kg/m2] 24.9 kg/m2 (06/21/23 1:03 PM) Blood Pressure [90-138/55-84 mm Hg] 128/82mm Hg (06/24/23 9:42 AM) 128/82mm Hg (06/24/23 8:02 AM) 115/64mm Hg (06/24/23 4:00 AM) Respiratory Rate [16-30 br/min] 18 br/min (06/24/23 9:42 AM) 18 br/min (06/24/23 8:02 AM) 16 br/min (06/24/23 4:00 AM) Temperature [96.8-100.4 DegF] 97.3 DegF (06/24/23 9:42 AM) 97.3 DegF (06/24/23 8:02 AM) 97.5 DegF (06/24/23 4:00 AM) Liters per Minute 0 L/min (06/24/23 8:02 AM) Mode of Delivery (Oxygen) Room air (06/24/23 8:02 AM) Room air (06/24/23 4:00 AM) Room air (06/23/23 8:00 PM) Blood pressure sites Arm, left (06/24/23 8:02 AM) Arm, left (06/24/23 4:00 AM) Arm, left (06/23/23 8:00 PM) Temperature Route Oral (06/24/23 9:42 AM) Oral (06/24/23 8:02 AM) Oral (06/24/23 4:00 AM) Dry Weight 75.4 kg (06/21/23 1:03 PM) 80 kg (06/21/23 8:51 AM) Social History Social History Type Response Smoking Status Never smoker entered on: 10/10/13 Sex Admission evaluation note * Mary Lira MD: PERFORM Event Display: Admission Note Authored Date: [id number] Patient: ??JULIOCESAR COLÓN ? Age:??37 Years?Sex:??Male?:??1985?? Chief Complaint/Reason for Consultation comes from home, ETOH withdrawal. last drink last night. has been here frequently, in and out of rehab. History of Present Illness 37-year-old man with history of??alcohol use disorder, with??multiple prior??previous admission for??alcohol withdrawal,??depression, hypertension, recent provoked upper extremity DVT presents to??the emergency room??with??again symptoms of alcohol withdrawal.?? He was last discharged on??May 28, 2023.?? He reports??he has been taking an??Vivitrol and acamprosate. ??However??even??with taking these medication,??he is telling me??he continues to use alcohol. ??Especially??as he reaches the end of??the??28 days??of??Vivitrol.?? Unclear??when he started dementing again this time, but but feels that he has been??drinking??persistently since his last discharge.?? Tells me his last drink wasye??night sometime.?? He woke up in the middle of the night, feeling??he was experiencing withdrawal symptoms, and apparently had??some more alcohol to??prevent withdrawal symptoms. ??Today todd pedraza??continued to have withdrawal symptoms and??came to the emergency room for evaluation.?? He also has been experiencing??nausea, vomiting,??tremulousness,??significant anxiety. ??He tells me he feels like his mind is racing. ??No??hallucinations. ??No prior history of alcohol withdrawal seizures.?? Also reporting??epigastric??discomfort??and burning.?? Significant reflux symptoms.?? No abdominal pain.?? He tells me he has not taken any of his meds in the past few days because of??nausea vomiting. ?? Denies fever, cough, chest pain,??shortness of breath. Review of Systems 14 point review of system is negative except for those mentioned above. Objective Measurements?? Height: 174 cm (06/21/23) Weight: 75.4 kg (06/21/23) Dry Weight: 75.4 kg (06/21/23) Body Mass Index: 24.9 kg/m2 (06/21/23) ? Vital Signs?? Temperature: 98.1 DegF (06/21/23 13:03:00) Temperature Route: Oral (06/21/23 13:03:00) Pulse Rate:??112 bpm??High (06/21/23 13:03:00) Respiratory Rate: 20 br/min (06/21/23 13:03:00) Systolic Blood Pressure: 125 mm Hg (06/21/23 13:03:00) Diastolic Blood Pressure: 75 mm Hg (06/21/23 13:03:00) Blood pressure sites: Arm, left (06/21/23 13:03:00) Mean Arterial Pressure: 92 mm Hg (06/21/23 13:03:00) Pulse Pressure: 50 mm Hg (06/21/23 13:03:00) Oxygen Saturation: 97 % (06/21/23 13:03:00) Mode of Delivery (Oxygen): Room air (06/21/23 13:03:00) Early Warning Score: 5 (06/21/23 13:32:39) ? Physical Exam General:??Awake, alert,??appears anxious Head and neck: Head is normal cephalic, appears slightly flushed,??neck is supple, no palpable lymphadenopathy. Heart: S1-S2 heard, regular,??tachycardic Lungs: Clear to auscultation bilaterally, no rhonchi wheeze or crackles. Abdomen is soft, mild epigastric tenderness, nondistended, bowel sounds present Extremity: No pedal edema Neuro: Awake and alert,??no focal deficits, to??tremors of??outstretched fingers. Skin: No rash Psych:??Anxious Assessment/Plan Diagnoses Alcohol use with withdrawal ??(F10.939) Alcohol withdrawal ??(F10.939) Alcoholic gastritis ??(K29.20) 1. ??Alcohol use disorder, severe, dependence ??(F10.20) 2. ??Essential Hypertension ??(I10) 3. ??Fatty liver us 2020 ??(K76.0) 4. ??Impaired fasting glucose ??(R73.01) 5. ??High anion gap metabolic acidosis ??(E87.29) 6. ??Dehydration ??(E86.0) 7. ??Leukocytosis ??(D72.829) ?? 37 year old male with??a past medical history of alcohol use??disorder??with previous withdrawal, depression??and HTN??presents to the ED with??complaints of ETOH withdrawal.? Alcohol use with withdrawal(F10.939):?? Patient is a poor historian, and has been drinking??persistently, last drink??has been yesterday night, but still??currently in withdrawal. Presented with nausea, vomiting,??epigastric burning and reflux symptoms,??tremulousness, malaise,??anxiety and racing thoughts In the emergency room, patient was tachycardic heart rate in 140s,??high anion gap metabolic acidosis,??leukocytosis,??alcohol level 134, which is lower than his??last admission when it was in the??260. Patient received 2 doses of IV phenobarbital,??Protonix, Maalox,??Zofran, IV fluids??with??some improvement. Monitor on CIWA protocol with??phenobarbital In addition, clonidine??if tolerated by blood pressure. Thiamine, folic acid, multivitamin, pyridoxine. Social work consult ?? High anion gap metabolic acidosis (E87.29): Acidosis likely in the setting of chronic alcohol intake and poor oral intake/dehydration. Received??1 L IV fluid in ED. Started on??maintenance??LR at 150 mill per hour. Repeat labs tomorrow ?? Alcohol use (Z78.9):?? -Patient states he has struggled??with alcohol addiction since 2020. 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 Social work consult ?? Alcoholic gastritis ??(K29.20) Patient with significant reflux symptoms. Continue IV Protonix LFTs WNL. Right upper quadrant ultrasound??ordered by ED physician, currently pending. ?? Depression (F32.A):?? -Continue home dose of fluoxetine, buspirone. ? Recent??right upper extremity DVT. On Eliquis.?? Continue ?? Diet:??Clear liquid diet for now, advance as tolerated ?? VTE Prophylaxis:??On Eliquis. ?? Code Status:??Full Code. ?? Discharge Planning:?? [...] likely fatty infiltration: 01/05/21 Ultrasound scan of [place] liver fatty ;iver : 01/04/21 CT angiography of thorax/abd/pelvs nad: 07/06/19 CT of brain /c spine nad: 07/06/19 EKG sinus: 07/02/19 EK06/30/19 Reference laboratory: 06/30/19 Reference (Outside) Laboratory: 05/31/19 CT of thorax nad: 05/03/19 Chest X-ray nad: 03/19/19 Reference laboratory: 03/19/19 EKGsinus 130 normal pr qtc ??qrs nonspecific st t: 03/19/19 Electrocardiogram, routine ECG with at least [...] Electronic Cigarette/Vaping Details:??Electronic Cigarette Use: Never. ? Family History Mother: Alcoholism; Hypertension Father: Alcoholism; Hypertension Mat. Grandmother: Hyperlipidemia; Hypertension; Stroke Other: Hypertension Pat. Grandfather: Cancer of lung ? Medications Home Medications Acamprosate (acamprosate 333 mg oral delayed release tablet)?2?tab(s)?666?Milligram?By Mouth?3 times a day apixaban (Eliquis 5 mg oral tablet)?1?tab(s)?5?Milligram?By Mouth?2 times a day BusPIRone (busPIRone 30 [...] Mouth?Daily at bedtime ? Inpatient Medications Medications (17) Active SCHEDULED: (14) Apixaban 5 mg Tablet (apixaban) ??5 mg, By Mouth, 2 times a day BusPIRone 10 mg Tablet (busPIRone 10 mg oral tablet) ??30 mg, By Mouth, 2 times a day Clonidine 0.1 mg Tablet (ClonIDINE Tablet) ??0.1 mg, By Mouth, Every 6 hours Clonidine 0.1 mg Tablet (ClonIDINE Tablet) ??0.1 mg, By Mouth, Every 8 hours Clonidine 0.1 mg Tablet (ClonIDINE Tablet) ??0.1 mg, By Mouth, Every 12 hours Clonidine 0.1 mg Tablet (ClonIDINE Tablet) ??0.05 mg, By Mouth, Every 12 hours Fluoxetine 20 mg Capsule (FLUoxetine 20 mg oral capsule) ??40 mg, By Mouth, Daily Folic Acid 1 mg Tablet (Folic Acid Tablet) ??1 mg, By Mouth, Daily Influenza Quad (6mo - 64 yr) Fluzone 0.5mL (Influenza, Quadrivalent Vaccine (Fluzone Quad)) ??0.5 mL, Intramuscular, Once Multivitamin Therapeutic / Minerals Tablet (Multivit Therapeutic/Minerals Tablet) ??1 tablet, By Mouth, Daily Pantoprazole 40 mg Inj (Pantoprazole Inj) ??40 mg, IV Push Slowly, 2 times a day Pyridoxine 50 mg Tablet (Pyridoxine Tablet) ??50 mg, By Mouth, Daily Thiamine 100 mg Tablet (Thiamine Tablet) ??100 mg, By Mouth, 2 times a day Trazodone 50 mg Tablet (traZODone 50 mg oral tablet) ??50 mg, By Mouth, Daily at bedtime CONTINUOUS: (1) Lactated Ringers (1000 mL) Cont IV 1000 mL (LR 1000 mL) ??1,000 mL, IV Infusion, 150 mL/hr PRN: (2) Ondansetron 2mg/mL Inj (2mL Vial) (Zofran Inj) ??4 mg, IV Push, Every 6 hours Phenobarbital 65 mg/mL Inj (Phenobarbital Inj) ??65 mg 1 mL, IV Push, Every 2 hours ? Results Recent Labs BLOOD COUNT & DIFF WBC 17.3 k/mm3 (High)?? 06/21/2023 09:18 RBC 6.10 m/mm3 ()?? 06/21/2023 09:18 Hgb 16.6 Gm/dL ()?? 06/21/2023 09:18 Hct 50.5 % (High)?? 06/21/2023 09:18 MCV 82.8 femtoliters ()?? 06/21/2023 09:18 MCH 27.2 pg ()?? 06/21/2023 09:18 MCHC 32.9 g/dL (Low)?? 06/21/2023 09:18 Platelet Count 234 k/mm3 ()?? 06/21/2023 09:18 RDW-SD 45.2 femtoliters ()?? 06/21/2023 09:18 MPV 10.0 femtoliters ()?? 06/21/2023 09:18 Nucleated RBC (Automated) 0.0 #/100 WBC'S ()?? 06/21/2023 09:18 Abs. NRBC 0.0 k/mm3 ()?? 06/21/2023 09:18 Abs. Neut 15.0 k/mm3 (High)?? 06/21/2023 09:18 Abs. Lymph 1.0 k/mm3 ()?? 06/21/2023 09:18 Abs. [place] 1.1 k/mm3 ()?? 06/21/2023 09:18 Abs. Eo 0.0 k/mm3 ()?? 06/21/2023 09:18 Abs. Baso 0.1 k/mm3 ()?? 06/21/2023 09:18 Neut % 86.7 % (High)?? 06/21/2023 09:18 Lymph % 6.0 % (Low)?? 06/21/2023 09:18 [place] % 6.3 % ()?? 06/21/2023 09:18 Eos % 0.0 % ()?? 06/21/2023 09:18 Baso % 0.4 % ()?? 06/21/2023 09:18 Imm Gran 0.6 % ()?? 06/21/2023 09:18 Abs. Imm Gran 0.1 k/mm3 ()?? 06/21/2023 09:18 ?? CHEM GENERAL Sodium 137 mmol/L ()?? 06/21/2023 11:01 Potassium 4.5 mmol/L ()?? 06/21/2023 11:01 Chloride 95 mmol/L (Low)?? 06/21/2023 11:01 Bicarbonate Level 18 mmol/L (Low)?? 06/21/2023 11:01 Anion Gap 24 (High)?? 06/21/2023 11:01 Glucose Level 137 mg/dL (High)?? 06/21/2023 11:01 BUN 12 mg/dL ()?? 06/21/2023 11:01 Creatinine-Blood 0.7 mg/dL ()?? 06/21/2023 11:01 Estimated GFR Creatinine 122 ML/MIN/1.73 M2 ()?? 06/21/2023 11:01 Calcium 9.1 mg/dL ()?? 06/21/2023 11:01 Magnesium 1.8 mg/dL ()?? 06/21/2023 09:18 Protein, Total 8.1 Gm/dL ()?? 06/21/2023 11:01 Albumin 4.8 Gm/dL ()?? 06/21/2023 11:01 AG Ratio 1.5 ()?? 06/21/2023 11:01 Alkaline Phosphatase 71 units/L ()?? 06/21/2023 11:01 Lipase 16 units/L ()?? 06/21/2023 09:18 AST (SGOT) 27 units/L ()?? 06/21/2023 11:01 ALT (SGPT) 22 units/L ()?? 06/21/2023 11:01 Bilirubin, Total 0.6 mg/dL ()?? 06/21/2023 11:01 ?? TOXICOLOGY/TDM Ethanol, Serum or Plasma 134 mg/dL (Abnormal)?? 06/21/2023 11:01 ?? URINE OTHER Est Creatinine Clearance 142.15 mL/min ()?? 06/21/2023 11:56 ?? VIROLOGY Influenza A PCR NEGATIVE ()?? 06/21/2023 12:03 Influenza B PCR NEGATIVE ()?? 06/21/2023 12:03 RSV PCR NEGATIVE ()?? 06/21/2023 12:03 COVID-19 PCR Specimen Source NASAL ()?? 06/21/2023 12:03 COVID-19 PCR Result NEGATIVE ()?? 06/21/2023 12:03 ? EKG study * Event Display: EKG Authored Date: * Event Display: ECG 12-Lead Authored Date: Please click on pdf link to open report * Event Display: ECG 12-Lead Authored Date: Ventricular Rate: 132 BPM Atrial Rate: 132 BPM P-R Interval: 142 ms QRS Duration: 78 ms Q-T Interval: 318 ms QTC Calculation(Bazett): 471 ms P [place]: 49 degrees R [place]: 39 degrees T [place]: 59 degrees Sinus tachycardia Nonspecific T wave abnormality When compared with ECG of 01-FEB-2023 22:27, No significant change was found Confirmed by ARCELIA SHAFFER [facility] ([id number]) on 06/22/2023 7:50:54 PM [place]: ARCELIA SHAFFER,[facility] Progress note * Efren BARRETO, Nial: PERFORM, SIGN, VERIFY Event Display: [facility] Authored Date: Patient: JULIOCESAR COLÓN Age: 37 years Sex: Male : 1985 Associated Diagnoses: None Author: Nila Schwartz RN Findings Problem Related to Alteration in Psychosocial : Alteration in Psychosocial Function/new 06/24/2023 9:00 EST Alteration in Psychosocial Related to Acute Alcohol Withdrawal Goals & Outcomes, Psychosocial Psychosocial support will be provided to Pt/S.O. as needed, Pt will identify stressors leading up to event, Pt will state importance of adhering to medication regime, Pt/caregiver will be offered appropriate resources & support, Pt/caregiver will express feelings/needs/fears /concerns, Pt/caregiver will maintain/obtain psychological stability, Pt successfully withdraws with minimal side effects, Encourage patient to attend NA/AA meetings, Pt will be free from withdrawal symptoms, Pt will detoxify from substance, Pt will participate in recovery groups, Ptwill show motivation for recovery Interventions, Psychosocial Assess psychosocial needs, Assess readiness to learn needed lifestyle changes, Assess/monitor level of consciousness, Evaluate resources & support system available to pt, Offer support; discuss coping strategies, Provide a calm, supportive environment, Provide chances to express concerns/emotions/expectations, Initiate & maintain Seizure Precautions, Minimize stimulation, Minimize stressors Goals/Interventions, Psychosocial Yes Psychosocial, Problem Start 06/21/2023 15:30 Reviewed Plan with, Psychosocial Patient Patient Progression, Psychosocial Pt progressing according to plan . Alteration in Safety : Alteration in Safety/new 06/24/2023 9:00 EST Alteration in Safety Related to Other: high fall Goals & Outcomes, Safety Pt/caregiver will state understanding of plan/goals of care, Pt will remain safe & injury free, Pt/caregiver will be offered appropriate resources & support, Pt/caregiver will verbalize understanding of the D/C plan, Other: high falls Interventions, Safety Provide info on community resources for education, support, Provide teaching as needed, Discuss unsafe practices & situations with pt/S.O., Instruct pt on maintaining a safeenvironment, Talk to patient regarding concerns Goals/Interventions, Safety Yes Safety, Problem Start 06/21/2023 15:31 Reviewed plan with, Safety Patient Patient Progression, Safety Pt progressing according to plan . Nursing Data Cardiac Data. : Cardiac Data. 06/24/2023 7:57 EST Cardiovascular Symptoms None Nail Bed Color, Fingers [place] Nail Bed Color, Toes [place] Skin Temperature Upper Extremities Warm Skin Temperature Lower Extremities Warm Capillary Refill < 3 seconds Radial Pulse, Left Normal Radial Pulse, Right Normal Dorsalis Pedis Pulse, Left Normal Dorsalis Pedis Pulse, Right Normal Cardiovascular WNL except . Gastrointestinal Data. : Gastrointestinal Data. 06/24/2023 7:57 EST Gastrointestinal Symptoms None Abdomen Soft, Non-tender Bowel Sounds LUQ Present Bowel Sounds RUQ Present Bowel Sounds LLQ Present Bowel Sounds RLQ Present Last Bowel Movement 06/23/2023 GI WNL except Normal Bowel Pattern Daily . Integumentary Data. : Integumentary Data. 06/24/2023 7:58 EST Skin Color Normal for ethnicity Skin Description Dry Skin Temperature Warm Skin Integrity Intact Skin Turgor Elastic Integumentary WNL 06/24/2023 7:57 EST Skin Color Normal for ethnicity Skin Integrity Intact Sensory Perception No impairment Sensory Perception No impairment Moisture Rarely moist Activity Walks frequently Activity Walks frequently Mobility No limitations Mobility No limitations Nutrition Adequate Friction and Shear No apparent problem [place] Score 22 Nursing Care Plan initiated/updated Yes Integumentary WNL except . Neurological Data. : Neurological Data. 06/24/2023 7:57 EST Neurological Symptoms None Level of Consciousness Full Consciousness Orientated to person, place, time Person, Place, Time, Event Hallucinations None Facial Symmetry Intact Characteristics of Speech Clear and normal Swallowing Difficulty None Strength LUE 5-Active movement against gravity & full resistance Strength RUE 5-Active movement against gravity & full resistance Strength LLE 5-Active movement against gravity & full resistance Strength RLE 5-Active movement against gravity & full resistance Tone LUE Normal Tone RUE Normal Tone LLE Normal Tone RLE Normal Sensation LUE Intact Sensation RUE Intact Sensation LLE Intact Sensation RLE Intact Gait No disturbance Neuro WNL except Memory Intact Swallow - Neuro Normal . Respiratory/Pulmonary Data. : Respiratory/Pulmonary Data. 06/24/2023 8:02 EST Mode of Delivery (Oxygen) Room air 06/24/2023 7:59 EST Respiratory Treatment(s) Cough and deep breathe 06/24/2023 7:57 EST Respiratory Symptoms None Respiratory effort Unlabored Chest expansion Symmetrical Accessory Muscles use No Cough No cough Respiratory pattern Regular Left Upper Lobe Breath Sounds Clear Right Upper Lobe Breath Sounds Clear Right Middle Lobe Breath Sounds Clear Left Lower Lobe Breath Sounds Clear Right Lower Lobe Breath Sounds Clear Respiratory distress None Respiratory Treatment(s) Cough and deep breathe Respiratory WNL except . Vital Signs : VITAL SIGNS SECTION 06/24/2023 8:02 EST Temperature 97.3 DegF Temperature Route Oral Pulse Rate 86 bpm Respiratory Rate 18 br/min Systolic Blood Pressure 128 mm Hg Diastolic Blood Pressure 82 mm Hg Blood pressure sites Arm, left Mean Arterial Pressure 97 mm Hg Pulse Pressure 46 mm Hg Oxygen Saturation 100 % Liters per Minute 0 L/min Mode of Delivery (Oxygen) Room air . Evaluation (Patient alert and oriented x4. Patient not scoring on CIWA. Ambulating independently tothe bathroom and throughout room. Patient denies any pain and chest pain. Patient denies shortness of breath, resting comfortably on room air. Skin intact no edema. +CSM. Patient compliant with medications. Safety measures reinforced. Call jack within reach. Patient able to make needs known.) * Mary Lira MD: PERFORM, MODIFY Event Display: Progress Note Hospital Authored Date: [id number] Patient: ??JULIOCESAR COLÓN ? Age:??37 Years?Sex:??Male?:??1985?? Subjective Patient??overnight was scoring??on CIWA protocol and required??2 doses of IV Ativan. Today morning, patient continues to??feel anxious and somewhat tremulous,??but??CIWA scores??improving. Patient is anxious??about discharge, and??feels??will??resort back to alcohol??as completely not??out of alcohol withdrawal. ?? GERD like symptoms improving but??not resolved. ?? Tolerating??soft solid diet, would like to advance diet to regular food. Review of Systems Allergies Allergies ?(Active and Proposed Allergies Only) NKA? (Severity: Unknown severity, Onset: Unknown) ? Objective Measurements?? Height: 174 cm (06/23/23) Weight: 75.4 kg (06/21/23) Dry Weight: 75.4 kg (06/21/23) Body Mass Index: 24.9 kg/m2 (06/21/23) ? Vital Signs?? Temperature: 98.4 DegF (06/23/23 15:23:00) Temperature Route: Oral (06/23/23 15:23:00) Pulse Rate: 60 bpm (06/23/23 15:23:00) Respiratory Rate: 18 br/min (06/23/23 15:23:00) Systolic Blood Pressure: 114 mm Hg (06/23/23 15:23:00) Diastolic Blood Pressure: 69 mm Hg (06/23/23 15:23:00) Blood pressure sites: Arm, left (06/23/23 15:23:00) Mean Arterial Pressure: 84 mm Hg (06/23/23 15:23:00) Pulse Pressure: 45 mm Hg (06/23/23 15:23:00) Oxygen Saturation: 100 % (06/23/23 15:23:00) Mode of Delivery (Oxygen): Room air (06/23/23 15:23:00) Early Warning Score: 4 (06/23/23 15:24:15) ? Intake/Output? 06/21 12:08 06/23 07:00 06/22 07:00 06/21 07:00 06/20 07:00 ?? 06/23 18:14 06/23 18:14 06/23 06:59 06/22 06:59 06/21 06:59 Intake ? 7855.0 ? 1450.0 ? 3057.5 ? 3347.5 ?0 Output ? 9085 ? 3250 ? 4560 ? 1275 ?0 Net Total ?-1230.0 ?-1800.0 ?-1502.5 ? 2072.5 ?0 ? Urine Count ?4 ?1 ?2 ?1 ?0 ? Physical Exam General:??Awake, alert,??appears anxious Head and neck: Head is normal cephalic, appears slightly flushed,??neck is supple, no palpable lymphadenopathy. Heart: S1-S2 heard, regular,??tachycardic Lungs: Clear to auscultation bilaterally, no rhonchi wheeze or crackles. Abdomen is soft, nontender, nondistended, bowel sounds present Extremity: No pedal edema Neuro: Awake and alert,??no focal deficits, to??tremors of??outstretched fingers. Skin: No rash Psych:??Anxious _ Inpatient Medications Medications (15) Active SCHEDULED: (10) Apixaban 5 mg Tablet (apixaban) ??5 mg, By Mouth, 2 times a day BusPIRone 10 mg Tablet (busPIRone 10 mg oral tablet) ??30 mg, By Mouth, 2 times a day Clonidine 0.1 mg Tablet (cloNIDine 0.1 mg oral tablet) ??0.1 mg, By Mouth, 2 times a day Fluoxetine 20 mg Capsule (FLUoxetine 20 mg oral capsule) ??40 mg, By Mouth, Daily Folic Acid 1 mg Tablet (Folic Acid Tablet) ??1 mg, By Mouth, Daily Multivitamin Therapeutic / Minerals Tablet (Multivit Therapeutic/Minerals Tablet) ??1 tablet, By Mouth, Daily Pantoprazole 40 mg EC Tablet (pantoprazole 40 mg oral delayed release tablet) ??40 mg, By Mouth, 2 times a day Pyridoxine 50 mg Tablet (Pyridoxine Tablet) ??50 mg, By Mouth, Daily Thiamine 100 mg Tablet (Thiamine Tablet) ??100 mg, By Mouth, 2 times a day Trazodone 50 mg Tablet (traZODone 50 mg oral tablet) ??50 mg, By Mouth, Daily at bedtime CONTINUOUS: (0) PRN: (5) HydrOXYzine Pamoate 25mg Capsule (hydrOXYzine pamoate 25 mg oral capsule) ??25 mg, By Mouth, Every 8 hours Lorazepam 2 mg Inj Syringe (Ativan Inj) ??1 mg, IV Push Slowly, Every 2 hours Lorazepam 2 mg Inj Syringe (Ativan Inj) ??2 mg, IV Push Slowly, Every 2 hours Lorazepam 2 mg Inj Syringe (Ativan Inj) ??2 mg, IV Push Slowly, Every hour Ondansetron 2mg/mL Inj (2mL Vial) (Zofran Inj) ??4 mg, IV Push, Every 6 hours ? Results Recent Labs BLOOD COUNT & DIFF WBC 4.3 k/mm3 ()?? 06/23/2023 06:11 RBC 4.62 m/mm3 (Low)?? 06/23/2023 06:11 Hgb 12.7 Gm/dL (Low)?? 06/23/2023 06:11 Hct 37.8 % (Low)?? 06/23/2023 06:11 MCV 81.8 femtoliters ()?? 06/23/2023 06:11 MCH 27.5 pg ()?? 06/23/2023 06:11 MCHC 33.6 g/dL ()?? 06/23/2023 06:11 Platelet Count 125 k/mm3 (Low)?? 06/23/2023 06:11 RDW-SD 44.0 femtoliters ()?? 06/23/2023 06:11 MPV 10.3 femtoliters ()?? 06/23/2023 06:11 Nucleated RBC (Automated) 0.0 #/100 WBC'S ()?? 06/23/2023 06:11 Abs. NRBC 0.0 k/mm3 ()?? 06/23/2023 06:11 ?? CHEM GENERAL Sodium 133 mmol/L ()?? 06/23/2023 06:11 Potassium 3.5 mmol/L (Low)?? 06/23/2023 06:11 Chloride 96 mmol/L (Low)?? 06/23/2023 06:11 Bicarbonate Level 25 mmol/L ()?? 06/23/2023 06:11 Anion Gap 12 ()?? 06/23/2023 06:11 Glucose Level 108 mg/dL (High)?? 06/23/2023 06:11 BUN 9 mg/dL ()?? 06/23/2023 06:11 Creatinine-Blood 0.9 mg/dL ()?? 06/23/2023 06:11 Estimated GFR Creatinine 113 ML/MIN/1.73 M2 ()?? 06/23/2023 06:11 Calcium 9.1 mg/dL ()?? 06/23/2023 06:11 Phosphorus 2.1 mg/dL (Low)?? 06/22/2023 05:31 Magnesium 1.8 mg/dL ()?? 06/22/2023 05:31 ?? HEME OTHER Hold Blue Top SPECIMEN DISCARDED AFTER 4 HOURS. ()?? 06/22/2023 05:31 ?? TOXICOLOGY/TDM Cannabinoid Screen, Urine POSITIVE (Abnormal)?? 06/22/2023 23:20 Cocaine Metabolite Screen, Urine NONE DETECTED ()?? 06/22/2023 23:20 Opiate Screen, Urine NONE DETECTED ()?? 06/22/2023 23:20 ?? URINE OTHER Est Creatinine Clearance 110.56 mL/min ()?? 06/23/2023 07:01 ? Assessment/Plan Chief Complaint: comes from home, ETOH withdrawal. last drink last night. has been here frequently,in and out of rehab. ?? Diagnoses Alcohol use with withdrawal ??(F10.939) Alcohol withdrawal ??(F10.939) Alcoholic gastritis ??(K29.20) 1. ??Alcohol use disorder, severe, dependence ??(F10.20) 2. ??Essential Hypertension ??(I10) 3. ??Fatty liver us 2020 ??(K76.0) 4. ??Impaired fasting glucose ??(R73.01) 5. ??High anion gap metabolic acidosis ??(E87.29) 6. ??Dehydration ??(E86.0) 7. ??Leukocytosis ??(D72.829) ?? 37 year old male with??a past medical history of alcohol use??disorder??with previous withdrawal, depression??and HTN??presents to the ED with??complaints of ETOH withdrawal.? Alcohol use with withdrawal(F10.939):?? Patient is a poor historian, and has been drinking??persistently, last drink??has been yesterday night, but still??currently in withdrawal. Presented with nausea, vomiting,??epigastric burning and reflux symptoms,??tremulousness, malaise,??anxiety and racing thoughts In the emergency room, patient was tachycardic heart rate in 140s,??high anion gap metabolic acidosis,??leukocytosis,??alcohol level 134, which is lower than his??last admission when it was in the??260. Patient received 2 doses of IV phenobarbital,??Protonix, Maalox,??Zofran, IV fluids??with??some improvement. Patient was started on phenobarb protocol inpatient, however??patient reporting??withdrawal symptoms not well-controlled on phenobarbital.?? Also pharmacy??reported interaction??of pain about??with Eliquis, phenobarb causing to decrease efficacy of??Eliquis.?? Therefore patient is currently on CIWA protocol with Ativan. Thiamine, folic acid, multivitamin, pyridoxine Seen by??social work in consult. ?? High anion gap metabolic acidosis (E87.29): Acidosis likely in the setting of chronic alcohol intake and poor oral intake/dehydration. IV fluids discontinued today ?? Alcohol use (Z78.9):?? -Patient states he has struggled??with alcohol addiction since 2019. 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 -Seen by adoption social worker in consult ?? Alcoholic gastritis ??(K29.20) Patient with significant reflux symptoms. Switch from IV to p.o. Protonix LFTs WNL. Right upper quadrant ultrasound shows hepatic steatosis ?? Depression (F32.A): Anxiety -Continue home dose of fluoxetine, buspirone.?? Added??as needed hydroxyzine ? Recent??right upper extremity DVT. On Eliquis.?? Continue ?? Diet:??Clear liquid diet for now, advance as tolerated ?? VTE Prophylaxis:??On Eliquis. ?? Code Status:??Full Code. ?? Discharge Planning:?? -OMN- Alcohol withdrawal. ??Likely discharge tomorrow morning ? * Ernst BARRETO, Anjelica: PERFORM, MODIFY, SIGN, VERIFY Event Display: Progress Note Hospital Authored Date: Patient: JULIOCESAR COLÓN Age: 37 years Sex: Male : 1985 Associated Diagnoses: None Author: Ernst BARRETO, Anjelica Findings Problem Related to Alteration in Psychosocial : Alteration in Psychosocial Function/new 06/23/2023 10:00 EST Alteration in Psychosocial Related to Acute Alcohol Withdrawal Goals & Outcomes, Psychosocial Psychosocial support will be provided to Pt/S.O. as needed, Pt will identify stressors leading up to event, Pt will state importance of adhering to medication regime, Pt/caregiver will be offered appropriate resources & support, Pt/caregiver will express feelings/needs/fears /concerns, Pt/caregiver will maintain/obtain psychological stability, Pt successfully withdraws with minimal side effects, Encourage patient to attend NA/AA meetings, Pt will be free from withdrawal symptoms, Pt will detoxify from substance, Pt will participate in recovery groups, Ptwill show motivation for recovery Interventions, Psychosocial Assess psychosocial needs, Collaborate with provider for psychiatric consult, Evaluate resources & support system available to pt, Offer support; discuss coping strategies, Provide a calm, supportive environment, Provide chances to express concerns/emotions/expectations, Determine pt's stage of withdrawal as per CIWA scale Goals/Interventions, Psychosocial Yes Psychosocial, Problem Start 06/21/2023 15:30 Reviewed Plan with, Psychosocial Patient Patient Progression, Psychosocial Pt progressing according to plan . Alteration in Safety : Alteration in Safety/new 06/23/2023 10:00 EST Alteration in Safety Related to Other: high fall Goals & Outcomes, Safety Pt/caregiver will state understanding of plan/goals of care, Pt will remain safe & injury free, Pt/caregiver will be offered appropriate resources & support, Pt/caregiver will verbalize understanding of the D/C plan, Other: high falls Interventions, Safety Provide teaching as needed, Discuss unsafe practices & situations with pt/S.O., Instruct pt on maintaining a safe environment, Talk to patient regarding concerns Goals/Interventions, Safety Yes Safety, Problem Start 06/21/2023 15:31 Reviewed plan with, Safety Patient Patient Progression, Safety Pt progressing according to plan . Nursing Data Vital Signs : VITAL SIGNS SECTION 06/23/2023 7:28 EST Temperature 97.3 DegF Temperature Route Oral Pulse Rate 56 bpm Respiratory Rate 18 br/min Systolic Blood Pressure 118 mm Hg Diastolic Blood Pressure 77 mm Hg Blood pressure sites Arm, left Mean Arterial Pressure 91 mm Hg Pulse Pressure 41 mm Hg Oxygen Saturation 98 % Mode of Delivery (Oxygen) Room air . Evaluation A/OX3, Pt denied pain. Continue CIWA assessment scored 4 in AM. mild anxiety. Discuss alcohol cessation wit patient, pt expressed that he needs help to stop drinking. Non-labored breathing on room air. Pt c/o mild nausea with no vomit. Right arm restricted for BP d/t DVT. Independent in the room with steady gait. void with urinal. Call jack within reach, safety maintained, hourly round made. Pt ambulates in hallway with steady gait. CIWA scored 4 in PM. . Note * Nila Schwartz RN: PERFORM Event Display: Discharge/Transfer Note Hospital Authored Date: [id number] Nursing Discharge Note Entered On: 06/24/2023 10:35 EST Performed On: 06/24/2023 10:34 EST by Nila Schwartz RN Nursing Discharge Note 2 Discharge Time : 06/24/2023 10:34 EST Discharge Level of Care at Discharge : Home/Fpc/Foster Care Patient Left Unit Via : Ambulatory Patient Accompanied Off Unit with : Responsible adult DC Instructions Provided & Signed by Pt : Yes Patient Understands D/C Instructions : Yes Patient Instructions Discharge Signed : Yes Did Pt have Specialty Bed or Wound Vac : No Nila Schwartz RN - 06/24/2023 10:34 EST * Albaro Bryant DO: PERFORM, MODIFY, MODIFY Event Display: Discharge/Transfer Note Hospital Authored Date: [id number] Patient: ??JULIOCESAR COLÓN ? Age:??37 Years?Sex:??Male?:??1985?? Patient Information Discharge Location: Med Surg Primary Care Physician: Greg Ponce DO Admit Date/Time: 06/21/23 12:08 Discharge Disposition Discharge Disposition: Home: No Services Discharge Diagnosis Alcohol use disorder, severe, dependence (F10.20) Essential Hypertension (I10) Fatty liver us 2020 (K76.0) High anion gap metabolic acidosis (E87.29) Dehydration (E86.0) Leukocytosis (D72.829) Alcohol use with withdrawal (F10.939) Alcoholic gastritis (K29.20) Right Upper Extremity DVT _ Discharge Medications Acamprosate (acamprosate 333 mg oral delayed release tablet)?2?tab(s)?666?Milligram?By Mouth?3 times a day apixaban (Eliquis 5 mg oral tablet)?1?tab(s)?5?Milligram?By Mouth?2 times a day BusPIRone (busPIRone 30 mg oral tablet)?1?tab(s)?30?Milligram?By Mouth?2 times a day Clonidine (cloNIDine 0.1 mg oral tablet)?0.1?Milligram?By Mouth?2 times a day?for 2?Days Fluoxetine (FLUoxetine 20 mg oral capsule)?40?Milligram?2?capsule?By Mouth?Daily Folic Acid (folic acid 1 mg oral tablet)?1?Milligram?By Mouth?Daily Multivitamin (multivitamin Multiple Vitamins oral capsule)?1?capsule?By Mouth?Daily Naltrexone (Vivitrol 380 mg intramuscular injection, extended release)?INJECT INTO THE MUSCLE EVERY 4 WEEKS Pantoprazole (Protonix 20 mg oral delayed release tablet)?1?tab(s)?20?Milligram?By Mouth?Daily Trazodone (traZODone 50 mg oral tablet)?50?Milligram?1?tablet?By Mouth?Daily at bedtime?for 5?Days ? Durable Medical Equipment Ambulatory devices needed: None (06/23/23) ? Medications Started Clonidine (3 doses) Medications Discontinued None Doses Changed None Allergies Allergies ?(Active and Proposed Allergies Only) NKA? (Severity: Unknown severity, Onset: Unknown) ? Hospital Course History of Present Illness??(copied from medical record) 37-year-old man with history of alcohol use disorder, with multiple prior previous admission for alcohol withdrawal, depression, hypertension, recent provoked upper extremity DVT presents to the emergency room with again symptoms of alcohol withdrawal. He was last discharged on May 28, 2023. He reports he has been taking an Vivitrol and acamprosate. However even with taking these medication,he is telling me he continues to use alcohol. Especially as he reaches the end of the 28 days of Vivitrol. Unclear when he started dementing again this time, but but feels that he has been drinking persistently since his last discharge. Tells me his last drink was yesterday night sometime. He woke up in the middle of the night, feeling he was experiencing withdrawal symptoms, and apparently had some more alcohol to prevent withdrawal symptoms. Today morning continued to have withdrawal symptomsand came to the emergency room for evaluation. He also has been experiencing nausea, vomiting, tremulousness, significant anxiety. He tells me he feels like his mind is racing. No hallucinations. No prior history of alcohol withdrawal seizures. Also reporting epigastric discomfort and burning. Significant reflux symptoms. No abdominal pain. He tells me he has not taken any of his meds in the pastfew days because of nausea vomiting. ?? Denies fever, cough, chest pain, shortness of breath.?? Objective Assessment and Plan Alcohol use (Z78.9):?? Alcohol use with withdrawal(F10.939):?? Patient presented with nausea, vomiting and epigastric burning with tremors, anxiety and racing thoughts.??He had been drinking??persistently with??his last drink??one night prior to admission. His alcohol level was 134, which was lower than his last admission with 260.??Patient was placed on CIWA protocol and has been scoring between 4-6 on CIWA for the past 24 hours without any tremors or PRN Ativan needed. Patient is alert, oriented x 3, no altered mental status, so thiamine that he was receiving inpatient was not continued. In addition the B12 and folic acid??that he was receiving were not continued as he does not have a macrocytic anemia, and B12/folate levels are currently pending. Hewas encouraged to continue with his multivitamin. Patient has had issues with alcohol addiction since 2019,??was seen by social work for his alcohol use and given resources. He was counseled on alcohol cessation just prior to discharge. He has also been prescribed clonidine for an additional day daniel is anxious about withdrawal symptoms possibly returning. ? High anion gap metabolic acidosis (E87.29): This resolved with fluids. Acidosis likely in the setting of chronic alcohol intake and poor oral intake/dehydration (starvation or alcoholic ketosis). ?? Alcoholic gastritis ??(K29.20) Patient with significant reflux symptoms. RUQ showed hepatic steatosis with normal LFTs. Patient tocontinue Protonix and advised he may benefit from GI follow up. ?? Depression (F32.A): Anxiety Continue home dose of fluoxetine, buspirone.? Recent??right upper extremity DVT. Continue Eliquis ?Code status: FULL Vital Signs?? Temperature: 97.3 DegF (06/24/23 08:02:00) Temperature Route: Oral (06/24/23 08:02:00) Pulse Rate: 86 bpm (06/24/23 08:02:00) Respiratory Rate: 18 br/min (06/24/23 08:02:00) Systolic Blood Pressure: 128 mm Hg (06/24/23 08:02:00) Diastolic Blood Pressure: 82 mm Hg (06/24/23 08:02:00) Blood pressure sites: Arm, left (06/24/23 08:02:00) Mean Arterial Pressure: 97 mm Hg (06/24/23 08:02:00) Pulse Pressure: 46 mm Hg (06/24/23 08:02:00) Oxygen Saturation: 100 % (06/24/23 08:02:00) Liters per Minute: 0 L/min (06/24/23 08:02:00) Mode of Delivery (Oxygen): Room air (06/24/23 08:02:00) Early Warning Score: 6 (06/24/23 08:04:47) ? . Physical Exam Constitutional: Alert,??in no acute distress Eyes: EOMI, no pallor or scleral icterus Ear, Nose and Throat: mucous membranes moist.?? Respiratory: Clear to auscultation b/l without wheezes, rales or rhonchi.?? Cardiovascular: Regular rate and rhythm, no rubs, murmurs or gallops.?? Gastrointestinal: Abdomen soft, non-tender, non-distended. Normal bowel sounds.?? Genitourinary: No costovertebral angle tenderness. Extremities: No lower extremity pitting edema.?? Neurologic: AAOx3, Cranial nerves II-XII grossly intact. Moves all 4 extremities spontaneously.??NOtremors. Psychiatric: Mildly??anxious Pending Results Add On Lab Order ordered on 06/24/2023 Follow-Up Appointments Added Follow Up ?Time Frame ?Comments Kris CHONG, Greg Hinson Patient Instructions Follow up with your primary care provider, Dr. Greg Ponce, in 1-2 weeks if possible Continue to abstain from alcohol?? You have been prescribed 0.1mg of clonidine. Take 1 tablet at 9pm and every 12 hours for an additional 1??day.?? I have re-prescribed??5 days of trazadone as requested.?? Return to the ED if you develop any concerning symptoms?? Results Discharge Labs BLOOD COUNT & DIFF WBC 4.3 k/mm3 ()?? 06/23/2023 06:11 RBC 4.62 m/mm3 (Low)?? 06/23/2023 06:11 Hgb 12.7 Gm/dL (Low)?? 06/23/2023 06:11 Hct 37.8 % (Low)?? 06/23/2023 06:11 MCV 81.8 femtoliters ()?? 06/23/2023 06:11 MCH 27.5 pg ()?? 06/23/2023 06:11 MCHC 33.6 g/dL ()?? 06/23/2023 06:11 Platelet Count 125 k/mm3 (Low)?? 06/23/2023 06:11 RDW-SD 44.0 femtoliters ()?? 06/23/2023 06:11 MPV 10.3 femtoliters ()?? 06/23/2023 06:11 Nucleated RBC (Automated) 0.0 #/100 WBC'S ()?? 06/23/2023 06:11 Abs. NRBC 0.0 k/mm3 ()?? 06/23/2023 06:11 Abs. Neut 15.0 k/mm3 (High)?? 06/21/2023 09:18 Abs. Lymph 1.0 k/mm3 ()?? 06/21/2023 09:18 Abs. [place] 1.1 k/mm3 ()?? 06/21/2023 09:18 Abs. Eo 0.0 k/mm3 ()?? 06/21/2023 09:18 Abs. Baso 0.1 k/mm3 ()?? 06/21/2023 09:18 Neut % 86.7 % (High)?? 06/21/2023 09:18 Lymph % 6.0 % (Low)?? 06/21/2023 09:18 [place] % 6.3 % ()?? 06/21/2023 09:18 Eos % 0.0 % ()?? 06/21/2023 09:18 Baso % 0.4 % ()?? 06/21/2023 09:18 Imm Gran 0.6 % ()?? 06/21/2023 09:18 Abs. Imm Gran 0.1 k/mm3 ()?? 06/21/2023 09:18 ?? CHEM GENERAL Sodium 133 mmol/L ()?? 06/23/2023 06:11 Potassium 3.5 mmol/L (Low)?? 06/23/2023 06:11 Chloride 96 mmol/L (Low)?? 06/23/2023 06:11 Bicarbonate Level 25 mmol/L ()?? 06/23/2023 06:11 Anion Gap 12 ()?? 06/23/2023 06:11 Glucose Level 108 mg/dL (High)?? 06/23/2023 06:11 BUN 9 mg/dL ()?? 06/23/2023 06:11 Creatinine-Blood 0.9 mg/dL ()?? 06/23/2023 06:11 Estimated GFR Creatinine 113 ML/MIN/1.73 M2 ()?? 06/23/2023 06:11 Calcium 9.1 mg/dL ()?? 06/23/2023 06:11 Phosphorus 2.1 mg/dL (Low)?? 06/22/2023 05:31 Magnesium 1.8 mg/dL ()?? 06/22/2023 05:31 Protein, Total 8.1 Gm/dL ()?? 06/21/2023 11:01 Albumin 4.8 Gm/dL ()?? 06/21/2023 11:01 AG Ratio 1.5 ()?? 06/21/2023 11:01 Alkaline Phosphatase 71 units/L ()?? 06/21/2023 11:01 Lipase 16 units/L ()?? 06/21/2023 09:18 AST (SGOT) 27 units/L ()?? 06/21/2023 11:01 ALT (SGPT) 22 units/L ()?? 06/21/2023 11:01 Bilirubin, Total 0.6 mg/dL ()?? 06/21/2023 11:01 ?? HEME OTHER Hold Blue Top SPECIMEN DISCARDED AFTER 4 HOURS. ()?? 06/22/2023 05:31 ? TOXICOLOGY/TDM Ethanol, Serum or Plasma 134 mg/dL (Abnormal)?? 06/21/2023 11:01 Cannabinoid Screen, Urine POSITIVE (Abnormal)?? 06/22/2023 23:20 Cocaine Metabolite Screen, Urine NONE DETECTED ()?? 06/22/2023 23:20 Opiate Screen, Urine NONE DETECTED ()?? 06/22/2023 23:20 ?? URINE OTHER Est Creatinine Clearance 110.56 mL/min ()?? 06/23/2023 07:01 ? VIROLOGY Influenza A PCR NEGATIVE ()?? 06/21/2023 12:03 Influenza B PCR NEGATIVE ()?? 06/21/2023 12:03 RSV PCR NEGATIVE ()?? 06/21/2023 12:03 COVID-19 PCR Specimen Source NASAL ()?? 06/21/2023 12:03 COVID-19 PCR Result NEGATIVE ()?? 06/21/2023 12:03 ? 35??minutes spent on discharge reviewing case, IPOC/nursing rounds, explaining discharge instructions and answering patient questions * Severo BARRETO, Berenice: PERFORM, MODIFY Event Display: Patient Education/Instruction Authored Date: [id number] Inpatient Adult Discharge Instructions [address] [address] Name: JULIOCESAR COLÓN : 1985 Visit: 06/21/2023 12:08:00 Current Date: 06/24/2023 10:14 Account: [id number] Inpatient Adult Discharge Instructions We would like [...] and their families. Surveys are administered by [employer] ?? If further treatment with your primary care physician or another doctor is recommended, it is important for you to keep the appointment. Call your primary care physician or return to the Emergency Department immediately if your condition worsens, fails to improve, or new symptoms develop. If you need to find a doctor, you can call [facility] Link for a referral at [phone] or toll free at [phone] ([phone]) or log in to [email or web address].. ?? [facility], in keeping with [place] guidance, no longer requires face masks for [...] a health care primo of your choosing. [employer] is a website that allows you to securely view your medical information including your hospital discharge summary, office visit summaries, medications and follow-up visits. You can also request appointments, renew medications, and request access to your medical information using a health care primo of your choosing, or just ask a question. You can enroll at [email or web address] or register during your next office visit. You have been discharged from [facility], Patient Care Unit: Med Surg. If you have any questions regarding these instructions after you leave, please call us and we will be happy to assist you. [facility] Your Care Team Attending Physician Albaro Bryant DO Discharging Providers Albaro Bryant DO Reason for Admission comes from home, ETOH withdrawal. last drink last night. has been here frequently, in and out of rehab. Your Diagnosis Alcohol withdrawal Alcohol use with withdrawal Alcoholic gastritis Alcohol use disorder, severe, dependence Essential Hypertension Fatty liver us 2020 Impaired fasting glucose High anion gap metabolic acidosis Dehydration Leukocytosis Tests Performed Below is a partial list of the tests performed during your hospitalization. You may have had other tests and procedures not included in this list. Please discuss all test results with your provider. Alcohol Level Basic Metabolic Panel Cannabinoid Urine Screen CBC Cocaine Urine Screen COMPLETE CBC WITH DIFF COMPREHENSIVE METABOLIC PANL COVID-19, RSV, and Flu A/B, Rapid PCR Ethanol Level HOLD BLUE TUBE Lipase Magnesium Level Opiate Screen Urine Phosphorus Level US RUQ Primary Care Provider Greg Ponce DO Advance Directive Health Care Proxy on File Yes - Health Care Proxy Discharge Vitals Temperature: 97.3 DegF Height: 174 cm Pulse Rate: 86 bpm Weight: 75.4 kg Respiratory Rate: 18 br/min Body Mass Index: 24.9 kg/m2 Systolic Blood Pressure: 128 mm Hg Body surface area: 1.91 Diastolic Blood Pressure: 82 mm Hg ?? Oxygen Saturation: 100 % ?? Studies Pending All tests and labs ordered during this hospital stay have been completed unless listed below. Please discuss all pending results with your provider listed above in these instructions. ?? Add On Lab Order What to do next Instructions From Your Doctor Follow up with your primary care provider, Dr. Greg Ponce, in 1-2 weeks if possible Continue to abstain from alcohol?? You have been prescribed 0.1mg of clonidine. Take 1 tablet at 9pm and every 12 hours for an additional 1??day.?? I have re-prescribed??5 days of trazadone as requested.?? Return to the ED if you develop any concerning symptoms?? Discharge Orders You Need to Schedule the Following Appointments Follow Up with??Greg Ponce DO Where: [address] [place] [address]- Discharge Medications JULIOCESAR COLÓN :1985 Visit Date:06/21/2023 Medications: Please continue your medications until treatment is completed or stopped by your provider. Medications not listed below should be discontinued. Discuss any questions related to medications with your provider. What How Much When Instructions Next Dose New Clonidine (cloNIDine 0.1 mg oral tablet) 0.1 Milligram Oral Twice a day Duration: 2 Days Pickup at [facility] tonight 06/24 Changed Trazodone (traZODone 50 mg oral tablet) 1 tab(s) Oral Daily at Bedtime Duration: 5 Days Pickup at [facility] tonight 06/24 Unchanged Acamprosate (acamprosate 333 mg oral delayed release tablet) 2 tab(s) Oral 3 times a day 06/24 noon Unchanged apixaban (Eliquis 5 mg oral tablet) 1 tab(s) Oral Twice a day tonight 06/24 Unchanged BusPIRone (busPIRone 30 mg oral tablet) 1 tab(s) Oral Twice a day tonight 06/24 Unchanged Fluoxetine (FLUoxetine 20 mg oral capsule) 2 capsule Oral Daily 06/25 Unchanged Folic Acid (folic acid 1 mg oral tablet) 1 Milligram Oral Daily 06/25 Unchanged Multivitamin (multivitamin Multiple Vitamins oral capsule) 1 capsule Oral Daily 06/25 Unchanged Naltrexone (Vivitrol 380 mg intramuscular injection, extended release) INJECT INTO THE MUSCLE EVERY 4 WEEKS ?? Unchanged Pantoprazole (Protonix 20 mg oral delayed release tablet) 1 tab(s) Oral Daily 06/25 Pharmacy Information Center Pharmacy: [address] [place] [address] [phone] Test Results Below is a partial list of the most recent Laboratory test results done prior to this discharge. You may have had other tests and procedures not included in this list. Please discuss all test resultswith your provider. Est Creatinine Clearance - 110.56 mL/min (06/23/2023) Alcohol Level (06/21/2023) ???Ethanol, Serum or Plasma - 134 mg/dL Basic Metabolic Panel (06/23/2023) ???Sodium - 133 mmol/L???Potassium - 3.5 mmol/L???Chloride - 96 mmol/L???Bicarbonate Level - 25 mmol/L???Anion Gap - 12???Glucose Level - 108 mg/dL???BUN - 9 mg/dL???Creatinine-Blood - 0.9 mg/dL???Estimated GFR Creatinine - 113 ML/MIN/1.73 M2???Calcium - 9.1 mg/dL Cannabinoid Urine Screen (06/22/2023) ???Cannabinoid Screen, Urine - POSITIVE CBC (06/23/2023) ???WBC - 4.3 k/mm3???RBC - 4.62 m/mm3???Hgb - 12.7 Gm/dL???Hct - 37.8 %???MCV - 81.8 femtoliters???MCH - 27.5 pg???MCHC - 33.6 g/dL???Platelet Count - 125 k/mm3???RDW-SD - 44.0 femtoliters???MPV - 10.3 femtoliters???Nucleated RBC (Automated) - 0.0 #/100 WBC'S???Abs. NRBC - 0.0 k/mm3 Cocaine Urine Screen (06/22/2023) ???Cocaine Metabolite Screen, Urine - NONE DETECTED COMPLETE CBC WITH DIFF (06/21/2023) ???WBC - 17.3 k/mm3???RBC - 6.10 m/mm3???Hgb - 16.6 Gm/dL???Hct - 50.5 %???MCV - 82.8 femtoliters???MCH - 27.2 pg???MCHC - 32.9 g/dL???Platelet Count - 234 k/mm3???RDW-SD - 45.2 femtoliters???MPV - 10.0 femtoliters???Nucleated RBC (Automated) - 0.0 #/100 WBC'S???Abs. NRBC - 0.0 k/mm3???Abs. Neut - 15.0 k/mm3???Abs. Lymph - 1.0 k/mm3???Abs. [place] - 1.1 k/mm3???Abs. Eo - 0.0 k/mm3???Abs. Baso - 0.1 k/mm3???Neut % - 86.7 %???Lymph % - 6.0 %???[place] % - 6.3 %???Eos % - 0.0 %???Baso % - 0.4 %???Imm Gran - 0.6 %???Abs. Imm Gran - 0.1 k/mm3 COMPREHENSIVE METABOLIC PANL (06/21/2023) ???Sodium - 137 mmol/L???Potassium - 4.5 mmol/L???Chloride - 95 mmol/L???Bicarbonate Level - 18 mmol/L???Anion Gap - 24???Glucose Level - 137 mg/dL???BUN - 12 mg/dL???Creatinine-Blood - 0.7 mg/dL???Estimated GFR Creatinine - 122 ML/MIN/1.73 M2???Calcium - 9.1 mg/dL???Protein, Total - 8.1 Gm/dL???Alb umin - 4.8 Gm/dL???AG Ratio - 1.5???Alkaline Phosphatase - 71 units/L???AST (SGOT) - 27 units/L???ALT (SGPT) - 22 units/L???Bilirubin, Total - 0.6 mg/dL COVID-19, RSV, and Flu A/B, Rapid PCR (06/21/2023) ???Influenza A PCR - NEGATIVE???Influenza B PCR - NEGATIVE???RSV PCR - NEGATIVE???COVID-19 PCR Specimen Source - NASAL???COVID-19 PCR Result - NEGATIVE Ethanol Level (06/21/2023) ???Ethanol, Serum or Plasma - HEMOLYZED HOLD BLUE TUBE (06/22/2023) ???Hold Blue Top - SPECIMEN DISCARDED AFTER 4 HOURS. Lipase (06/21/2023) ???Lipase - 16 units/L Magnesium Level (06/22/2023) ???Magnesium - 1.8 mg/dL Opiate Screen Urine (06/22/2023) ???Opiate Screen, Urine - NONE DETECTED Phosphorus Level (06/22/2023) ???Phosphorus - 2.1 mg/dL Immunizations This Visit Not Given Vaccine Commentsinfluenza virus vaccine, inactivated Patient Refuses Allergies (NKA means No Known Allergies) NKA [...] Review of Valuable and Belonging List: With patient, With witness Possessions released to: witness tech and rn Date for Pt to Sign Valuables/Belongings: 06/21/23 15:32:00 ?? Other Discharge Information ? Pulmonary Rehab [...] are strongly encouraged to quit. Please call [facility] Link at [phone] or [phone] ([phone]) or log in to [email or web address] for referrals to smoking cessation programs. ?? 931 Suicide & Crisis Lifeline is available 22/12 if you or someone you know needs to find a reason to keep living. By calling 104 you'll be connected to a skilled, trained counselor at a crisis center in your area. INPATIENT DISCHARGE INSTRUCTIONS SIGNATURE PAGE JULIOCESAR COLÓN Location:[facility] Registration Date and Time:06/21/2023 12:08 EST Primary Care Physician: Greg Ponce DO, Attending Physician: Albaro Bryant DO, I JULIOCESAR COLÓN, have received the above patient education materials/instructions and have verbalized understanding. If ambulance or transport services are being used I further acknowledge being given a choice of service. ?? If you need to contact me, please call me at this number: . Patient/Front Office Java Developer Name: Patient/Front Office Java Developer Signature: Relationship to Patient: Witness Name/Signature: Date: * Juanita Brown RN: PERFORM Event Display: Patient Education Leaflets Authored Date: Addiction: Getting Help ?? 21512 Addiction: Getting Help It's not easy to admit that you have a problem with alcohol or drugs. You may hear this called addiction or a substance use disorder. Facing it takes courage and honesty. But once you are ready to look at your use, you have taken a big step toward tackling the problem. You are responsible for your actions and for making healthy choices. But there are many programs and people who can help you. It???s OK to get help. It???s the first step to getting your life back together. Getting help and support Recovery doesn???t happen right away. There are many steps along the way. You???ll learn new, healthy ways to solve problems. You'll learn how to communicate, and resolve conflicts. A counselor or other healthcare provider can help you. So can a jamila leader trained in substance abuse counseling. Friends and family??may help once you are working with experts.??Together you can make changes needed for success. This can help you have a positive and rewarding life. ?? To find help near you To find treatment, contact: Substance Abuse and Mental Health Services Administration ([facility]) findtreatment.gov [phone] ([phone]) ?? Last Reviewed Date: 2022 ?? [employer]. All rights reserved. This information is not intended as a substitute for professional medical care. Always follow your healthcare professional's instructions. ?? * Juanita Brown RN: PERFORM Event Display: Patient Education Leaflets Authored Date: [id number] Alcohol Addiction ?? 58041 Alcohol Addiction How many times in the [...] ?? Last Reviewed Date: 2022 ?? [employer]. All rights reserved. This information is not intended as a substitute for professional medical care. Always follow your healthcare professional's instructions. ?? * Juanita Brown RN: PERFORM Event Display: Patient Education Leaflets Authored Date: [id number] Alcoholism: Getting Help ?? 95590 Alcoholism: Getting Help Facing a problem with alcohol can be hard. Once a person decides to get help, it can be found in many places. Below you will find resources that can give you more information. They can also help you find treatment. Primary care Talk with your primary healthcare provider. Sometimes your provider??can give you safe, effective medicine that can help you stop drinking. If your healthcare provider can't offer this medicine, theycan refer you to a specialist. ?? Specialist care This kind of care can be inpatient. It means you spend a period of time in a facility. Or it can beoutpatient. This means you come and go. The facilities have medical support and can help a person detox. Most health insurance plans will cover at least some treatment. To find this kind of care, talk to your healthcare provider or a counselor. Or call a mental health clinic and ask for information. You can also look for providers online at the Substance Abuse and Mental Health Services Administration website at [facility]treatment.[facility].gov . ?? Alcoholics Anonymous Alcoholics Anonymous (AA) helps members get sober and stay sober. They help you build healthy patterns of living. Everyone is welcome at an AA meeting. You don't have to identify yourself. Some people find it easier to go to the first meeting with a friend. To find a meeting near you, go to the Alcoholics Anonymous website at www.aa.org. ?? The road to recovery Many people with alcoholism can give up alcohol for good. But change may not be easy or quick. Treatment is only a start. Relapses can be common. A relapse is not a sign of failure. Instead, it meanstreatment should continue. Once a person stops drinking, support is needed for them to stay sober. After-care programs and groups, such as AA, are good for this kind of support. ?? To learn more ??? National [place] on Alcohol Abuse and Alcoholism at www.niaaa.nih.gov/cwbqusoc-owyslpd-nemgxu ??? Alcoholics Anonymous at www.aa.org ??? Substance Abuse and Mental Health ServicesAdministration at findtreatment.sama.gov ??? SMART Recovery at www.[facility].org ?? Last Reviewed Date: 2021 ?? [employer]. All rights reserved. This information is not intended as a substitute for professional medical care. Always follow your healthcare professional's instructions. ?? Patient Care team information Care Team Personnel Name: Roseann Humphrey RN Position: S RN Member Role: Primary Care Nurse Name: Samy Coleman RN Position: S RN Member Role: Primary Care Nurse Name: Anjelica Dukes RN Position: S RN Member Role: Primary Care Nurse Name: Alix Vargas RN Position: [facility] RN Member Role: Primary Care Nurse Name: Nina Fulton RN Position: S RN Member Role: Primary Care Nurse Name: Mirela Fritz RN Position: S RN Member Role: Primary Care Nurse Name: Greg Ponce DO Position: [facility] Physician - Primary Care Member Role: PCP Address: Address: [address] [place] [id number]- Name: Ana M Barnes Position: [facility] RN Member Role: Primary Care Nurse Name: Neli Alcala RN Position: [facility] RN Member Role: Primary Care Nurse Care Team Related Persons Name: KATARZYNA DOMENICA Address: [address] [place] [address] UM Name: KENNETH BALDWIN Address: [address] [place] [address]
== END 2023-07-15 17:02 | disposition home or self-care (01) ==
LOC: HO.HCC 16:17
PROVIDERS: PCP Internal Medicine; Visit Provider Nurse Practitioner Psychiatric/Mental Health
DX: F10.20 Alcohol dependence, uncomplicated (principal)
CPT/HCPCS: 99213

== ENCOUNTER → 2023-07-15 16:17 | Outpatient (BNVA) | payer OTHER, SELFPAY | PROVIDERS: PCP Internal Medicine; Visit Provider Nurse Practitioner Psychiatric/Mental Health ==

== ENCOUNTER 2023-07-28 07:33 | Inpatient (IN) | payer OTHER, SELFPAY ==
[2023-07-28] VITALS (7 sets, daily range): BP systolic 118–167; BP diastolic 71–114; PULSE 65–140; RESP 11–21; TEMP 36.6–36.9; O2SAT 91–98; BMI 27.4
--- NOTE | ~2023-07-28 | XR_ITS ---
EXAMINATION: XR CHEST CLINICAL INFORMATION: Tachycardia and chest discomfort. COMPARISON: 05/02/2019 TECHNIQUE: Frontal view of the chest was obtained. FINDINGS: No significant abnormality is noted involving the heart, lungs, mediastinum, bony thorax or soft tissues. XR/XR chest 1V IMPRESSION: Unremarkable examination.
--- NOTE | 2023-07-28 07:35 | ECG_ITS ---
Test Reason : alcohol abuse Blood Pressure : / mmHG Vent. Rate : 116 BPM Atrial Rate : 116 BPM P-R Int : 150 ms QRS Dur : 082 ms QT Int : 314 ms P-R-T Axes : 039 018 042 degrees QTc Int : 436 ms Sinus tachycardia Otherwise normal ECG When compared with ECG of 19-FEB-2023 10:42, No significant changes seen Referred By: Muriel North Electronically Signed By:WILBERTO SMILEY
--- NOTE | 2023-07-28 07:36 | ED.GENADULT ---
HPI - General Adult General Chief complaint: ETOH/Substance Use Stated complaint: NOT FEELING WELL,ETOH USE/RELAPSE,HIGH BP 177/111 Time Seen by Provider: 07/28/23 07:34 Source: patient Mode of arrival: ambulatory Limitations: no limitations History of Present Illness HPI narrative: This is a 37-year-old male history of recent DVT on eliquis, alcohol abuse, hypertension on amlodipine, depression, presenting to the emergency department status post heavy drinking X 3 days, patient reports he drinks a L of vodka daily, last drink was prior to his arrival this am. He states he feels shaky and wanted to come in for evaluation his family was also concerned. He reports increasing life stressors, his grandmother dying and this has been making it worse. No suicidal or homicidal ideation. No hallucinations. Denies fevers, chills, nausea, vomiting, abdominal pain, numbness, tingling, chest pain and shortness of breath Related Data Home Medications Medication Instructions Recorded Confirmed buspirone 30 mg tablet 30 mg PO BID 09/27/22 06/16/23 melatonin 10 mg tablet 10 mg PO BEDTIME 02/10/23 06/16/23 Previous Rx's Medication Instructions Recorded folic acid 1 mg tablet 1 mg PO DAILY #30 tabs 07/10/22 thiamine HCl (vitamin B1) 100 mg 100 mg PO DAILY #30 tabs 07/10/22 tablet naltrexone microspheres 380 mg 380 mg IM Q4W #1 ea 05/19/23 intramuscular suspension,extended release (Vivitrol) apixaban 5 mg tablet (Eliquis) 5 mg PO BID #60 tabs 07/08/23 acamprosate 333 mg tablet,delayed 666 mg (2 x 333 mg) PO TID #180 07/09/23 release tabs fluoxetine 40 mg capsule 40 mg PO DAILY #30 caps 07/09/23 trazodone 50 mg tablet 50 mg PO BEDTIME #30 tabs 07/09/23 Allergies Allergy/AdvReac Type Severity Reaction Status Date / Time No Known Allergies Allergy Unknown UNKNOWN Verified 06/16/23 11:37 [NO KNOWN ALLERGIES] Review of Systems Review of Systems: Yes all other systems are reviewed and are negative PMFSH Past Medical History Medical History Alcohol use disorder, severe, dependence Alcohol abuse Elevated LFTs Recurrent major depression-severe Alcohol withdrawal syndrome Hypertension Anxiety and depression Psychiatric disturbance Family History Family History Other Lung cancer Social History Social History Household Members: None Housing: House Do you presently have visiting nurse or other home services: No Alcohol intake: current Alcohol intake frequency: 3 or more drinks per day Alcohol type: beer and hard liquor Patient Tobacco Use Status: Never used Tobacco Smoked in Last 30 Days: No e-Cigarette/Vaping Use: Never Used Second Hand Smoke Exposure: No Use of substances other than those prescribed or required for medical reasons: Yes Substance Use Type: Marijuana Advance Directives: Yes Advance Directives on File: Yes Advance Directives Date on File: 01/08/21 service: No Current occupational status: unemployed Sexual orientation: Straight/Heterosexual Physical Exam ED Vital Signs: Vital Signs - 24 hr 07/28/23 07:37 07/28/23 08:03 07/28/23 10:31 Temperature 98.4 F Pulse Rate 126 H 117 H 135 H Respiratory Rate 20 21 H 20 Blood Pressure 158/103 H 151/94 H 153/88 H Pulse Oximetry 96 91 L 98 Oxygen Delivery Method Room Air Room Air Room Air BMI result Body Mass Index 27.4 vss Appearance: Alert.? Oriented X3.? No acute distress.? Diaphoretic Head: Normocephalic, atraumatic, no step-offs or deformities Eyes: Pupils equal, round and reactive to light.? ENT: Pharynx normal.? Neck: Normal inspection.? Neck supple.? CVS: Rapid rate normal rhythm likely sinus tachycardia heart rate around 120-130.? Pulses normal.? Respiratory: No respiratory distress.? Breath sounds normal.? Abdomen: Soft and nontender.? Skin: Skin warm and dry.? Normal skin color.? Normal skin turgor.? Extremities: No lower extremity edema.? No calf ttp. 5/5 strength to bilateral upper and lower extremities Back: No midline tenderness, no C-spine tenderness, full range of motion, no CVA tenderness bilaterally Neuro: Oriented X 3.? No motor deficit.? No sensory deficit. CN 2-12 intact Course Reevaluation(s) Reevaluation #1: CBC unremarkable. Chemistry slightly elevated anion gap likely secondary to acute alcohol intoxication. Ethanol level 204. Patient's heart rate 160s. Will order more IV fluids as well as phenobarbital patient's heart rate 160 Time: 09:16 Reevaluation #2: Patient's heart rate now 115. After more fluids, and meds. Patient feeling better. At this time patient to be admitted to the hospital for acute alcohol withdrawal although his ethanol is positive this is likely lower than his baseline which makes me suspect an early alcohol withdrawal. No signs of DTs at this time Time: 10:39 Medications Administered Generic Name Dose Route Start Last Admin Trade Name Freq PRN Reason Stop Dose Admin Phenobarbital Sodium 410 mg 07/28/23 11:00 07/28/23 10:32 Phenobarbital Sodium 130 Mg/Ml Im Once IM 07/28/23 11:01 410 mg ONCE ONE Administration Discontinued Medications Generic Name Dose Route Start Last Admin Trade Name Freq PRN Reason Stop Dose Admin Sodium Chloride 1,000 mls @ 999 mls/hr 07/28/23 09:15 07/28/23 09:26 Ns IV 07/28/23 10:15 999 mls/hr .Q1H1M VANESSA Administration Lorazepam 2 mg 07/28/23 07:34 07/28/23 07:50 Lorazepam 2 Mg/Ml Vial IVPUSH 07/28/23 07:35 2 mg ONCE ONE Administration Medical Decision Making Medical Decision Making [facility] Narrative: 37-year-old male presents with complaints of alcohol intoxication, shakiness, last drink prior to arrival. Physical exam tachycardia, diaphoretic, however patient smells like alcohol. This is likely acute alcohol intoxication and possibly early withdrawal. Likely anxiety superimposed. Unlikely metabolic derangements however will rule out. No suicidal or homicidal ideation. Plan at this time labs, control and recovery combat rescue Differential Diagnosis Differential Diagnoses: The differential diagnosis associated with the presentation includes This is likely acute alcohol intoxication and possibly early withdrawal Likely anxiety superimposed. Unlikely metabolic derangements however will rule out. No suicidal or homicidal ideation. Admission/Observation Consideration of admission/observation: Escalation of care including admission/observation considered Lab Data [facility] Lab Attestation statement: I reviewed the patient's lab results. 07/28/23 08:09 07/28/23 08:09 Labs: Lab Results 07/28/23 Range/Units 08:09 WBC 8.7 (4.8-10.8) X10*3/uL RBC 5.58 (4.60-5.80) X10*6/uL Hgb 15.4 D (14.0-18.0) g/dl Hct 44.1 (42.0-52.0) % MCV 79.0 L (80.0-98.0) fL MCH 27.6 (27.0-33.0) pg MCHC 34.9 (31.0-36.0) g/dl RDW 14.3 (11.0-16.0) % Plt Count 191 (160-400) X10*3/uL MPV 9.3 L (9.4-12.4) fL Immature Gran % (Auto) 0.2 (0.0-0.4) % Neut % (Auto) 64.7 (45-73) % Lymph % (Auto) 24.6 (20-40) % [place] % (Auto) 9.9 (2-11) % Eos % (Auto) 0.0 (0-4) % Baso % (Auto) 0.6 (0-2) % Lymph # (Auto) 2.1 (1.2-4.9) X10*3/uL [place] # (Auto) 0.9 (0.1-1.2) X10*3/uL Eos # (Auto) 0.0 (0.0-0.4) X10*3/uL Baso # (Auto) 0.1 (0.0-0.2) X10*3/uL Abs Immat Gran (auto) 0.02 (0.00-0.03) X10*3/uL Absolute Neuts (auto) 5.6 (2.0-8.3) x10*3/uL Absolute Nucleated RBC 0.000 (0.0-0.012) X10*3/uL Nucleated RBC % (auto) 0.0 (0.0-0.2) /100WBC Sodium 135 (135-145) mmol/L Potassium 3.9 (3.3-5.1) mmol/L Chloride 95 L (96-108) mmol/L Carbon Dioxide 19 L (22-29) mmol/L Anion Gap 25 H (12-20) BUN 12 (9-16) mg/dL Creatinine 0.83 (0.5-1.4) mg/dL Estim Creat Clear Calc 117.8 Estimated GFR > 60 Random Glucose 93 (60-115) mg/dL Calcium 9.5 (8.4-10.2) mg/dL Magnesium 2.0 (1.6-2.6) mg/dL Total Bilirubin 0.7 (0.0-1.0) mg/dL AST 26 (5-37) U/L ALT 24 (0-40) U/L Alkaline Phosphatase 54 (39-117) U/L Total Protein 8.1 H (6.5-8.0) g/dL Albumin 4.7 (3.5-5.0) g/dL Ethyl Alcohol 204 mg/dL Independent Historian Clinical information obtained from an independent historian. History obtained from or confirmed by: EMS External Record Review External record reviewed: Inpatient record, Office record, Outpatient record, Prior outpatient labs, Prior outpatient radiology, Primary care record and Outside ED record Chronic Conditions Patient?s care impacted by: Other (Alcohol use disorder, anxiety, depression, hypertension, alcohol withdrawal syndrome) Critical Care Time Critical Care Time Critical Care Time: Yes Total Critical Care Time: 45 Attestation: I attest to this time spent taking care of the patient, obtaining history, physical, reviewing labs, imaging, speaking to my attending, speaking to specialist. Discharge Plan Discharge Clinical Impression: Alcohol use disorder, severe, dependence, Alcohol withdrawal syndrome Patient Disposition: Admitted As Inpatient Prescriptions: No Action acamprosate 333 mg tablet,delayed release (DR/EC) 666 mg PO TID Qty: 180 0RF fluoxetine 40 mg capsule 40 mg PO DAILY Qty: 30 0RF trazodone 50 mg tablet 50 mg PO BEDTIME Qty: 30 0RF thiamine HCl (vitamin B1) 100 mg tablet 100 mg PO DAILY Qty: 30 0RF folic acid 1 mg tablet 1 mg PO DAILY Qty: 30 0RF buspirone 30 mg tablet 30 mg PO BID Eliquis 5 mg Tablet 5 mg PO BID Qty: 60 3RF melatonin 10 mg Tablet 10 mg PO BEDTIME Vivitrol 380 mg suspension,extended rel recon 380 mg IM Q4W Qty: 1 5RF
[2023-07-28] MEDS: LORazepam 2 MG/ML VIAL IVPUSH (07:50)
[2023-07-28 08:17] LABS: MANUAL DIFF FLAG NO
[2023-07-28 08:19] LABS: Basophils Absolute Auto 0.1 X10*3/uL (0.0-0.2); Basophils Percent Auto 0.6 % (0-2); Hematocrit 44.1 % (42.0-52.0); Hemoglobin 15.4 g/dl (14.0-18.0); Imm Gran Abs Auto 0.02 X10*3/uL (0.00-0.03); Imm Gran Pct Auto 0.2 % (0.0-0.4); Lymphocytes Absolute Auto 2.1 X10*3/uL (1.2-4.9); Lymphocytes Percent Auto 24.6 % (20-40); Mean Corpuscular HGB Conc 34.9 g/dl (31.0-36.0); Mean Corpuscular Hemoglobin 27.6 pg (27.0-33.0); Mean Platelet Volume 9.3 fL (9.4-12.4); Monocytes Absolute Auto 0.9 X10*3/uL (0.1-1.2); Monocytes Percent Auto 9.9 % (2-11); Neutrophils Absolute Auto 5.6 x10*3/uL (2.0-8.3); Neutrophils Percent Auto 64.7 % (45-73); Platelet Count 191 X10*3/uL (160-400); Red Blood Count 5.58 X10*6/uL (4.60-5.80); Red Cell Distribution Width 14.3 % (11.0-16.0); White Blood Count 8.7 X10*3/uL (4.8-10.8)
[2023-07-28 08:38] LABS: Alanine Aminotransferase 24 U/L (0-40); Albumin Level 4.7 g/dL (3.5-5.0); Alkaline Phosphatase 54 U/L (39-117); Anion Gap 25 (12-20); Aspartate Amino Transferase 26 U/L (5-37); Bilirubin Total 0.7 mg/dL (0.0-1.0); Blood Urea Nitrogen 12 mg/dL (9-16); Calcium 9.5 mg/dL (8.4-10.2); Carbon Dioxide 19 mmol/L (22-29); Chloride 95 mmol/L (96-108); Creatinine Clr Calc Pharmacy 117.8; Estimated Glomerular Filt Rate > 60; Ethanol 204 mg/dL; Glucose Random 93 mg/dL (60-115); Potassium 3.9 mmol/L (3.3-5.1); Sodium 135 mmol/L (135-145); Total Protein 8.1 g/dL (6.5-8.0)
[2023-07-28] MEDS: 0.9 % Sodium Chloride 1,000 ML 999 ML IV (09:26)
[2023-07-28] MEDS: PHENobarbitaL sodium 130 MG/ML IM ONCE 410 MG IM (10:32)
--- NOTE | 2023-07-28 11:11 | P.HPHOSP_ITS ---
<Statement entered by Gerber Pak MD - 07/28/23 14:49> The patient was seen and evaluated with GLENYS Kilgore. I agree with her note, assessment and plan with the following. In summary, A 37 years old male with PMH of HTN, Alcohol abuse, Hx DVT and depression who presented with symptoms of withdrawal after binge drinking for almost a week with 1.75L Vodka daily. # Acohol abuse with Acute alcohol withdrawal phenobarbital protocol CIWA IV thiamine and folic acid addiction med consult IVF and Zofran Close monitoring Rest of evaluations by GLENYS note. History of Present Illness Date of Service: 07/28/23 Attending physician on admission: Gerber Pak Chief Complaint: alcohol dependence 37-year-old male with history of hypertension, GERD, alcohol dependence, RUE DVT, and major depressive disorder presents to the ED earlier today due to confusion with increased alcohol consumption. The patient has along history of alcohol dependence with multiple admissions for withdrawal and has followed with [facility] and takes campral. He states he has decreased to moderate consumption wiht 4 beers daily but over the weekend began binging on a handle of vodka and started day drinking again. Reports increased stressors at home. Last drink was this morning just prior to arrival. He is currently feeling shakey, confused, nauseous. No SI/HI. Since arrival patient sinus rhythm but tachycardic 117-150 and hypertensive to 153/88 on admission. No hypoxia. Hematology studies unremarkable. Renal function baseline, lytes normal except co2 19. Hepatic function normal. Ethyl alcohol level 204. CXR unremarkable. EKS shows sinus tachycardia, rate 116, no st/t wave abnormalities. In the ED, given IV NS, 2mg ativan, and started on phenobarbital per protocol. Review of Systems 2 Review of Systems: General: No fevers, malaise, unintentional weight loss HEENT: No blurred vision, diplopia. No sore throat, nasal congestion, rhinorrhea, sinus pain, ear pain Cardiovascular: No chest pain, palpitations, or leg edema Respiratory: No shortness of breath, wheezing, cough GI: +nausea. No abdominal pain, vomiting, diarrhea, constipation, melena, hematochezia : No dysuria, hematuria, increased urinary frequency, decreased urinary output MSK: No myalgia, back pain Neuro: No headaches, weakness, paresthesias. +tremors, +confusion Skin: No rashes or lesions [facility] Medical History Deep vein thrombosis, upper right extremity Alcohol use disorder, severe, dependence Alcohol abuse Elevated LFTs Recurrent major depression-severe Alcohol withdrawal syndrome Hypertension Anxiety and depression Psychiatric disturbance Family History Other Lung cancer Social History Household Members: None Housing: House Do you presently have visiting nurse or other home services: No Alcohol intake: current Alcohol intake frequency: 3 or more drinks per day Alcohol type: beer and hard liquor Patient Tobacco Use Status: Never used Tobacco Smoked in Last 30 Days: No e-Cigarette/Vaping Use: Never Used Second Hand Smoke Exposure: No Use of substances other than those prescribed or required for medical reasons: Yes Substance Use Type: Marijuana Advance Directives: Yes Advance Directives on File: Yes Advance Directives Date on File: 01/08/21 service: No Current occupational status: unemployed Sexual orientation: Straight/Heterosexual Meds Allergies Allergy/AdvReac Type Severity Reaction Status Date / Time No Known Allergies Allergy Unknown UNKNOWN Verified 06/16/23 11:37 [NO KNOWN ALLERGIES] Active Medications: Current Medications Pharmacy Consult (Consult Rx Etoh Phenob Im/Po) 1 each MISCELLANE ONCE PRN; Protocol PRN Reason: Consult order Phenobarbital (Phenobarbital 15 Mg Tablet) 45 mg PO BID [facility] Stop: 07/30/23 09:01 Phenobarbital (Phenobarbital 15 Mg Tablet) 15 mg PO BID [facility] Stop: 08/01/23 09:01 Phenobarbital (Phenobarbital 15 Mg Tablet) 15 mg PO DAILY [facility] Stop: 08/03/23 09:01 Phenobarbital Sodium (Phenobarbital Sodium 130 Mg/Ml Vial Im Q3hx2) 308 mg IM Q3H [facility] Stop: 07/28/23 17:01 Home Medications Medication Instructions Recorded Confirmed Last Taken Type buspirone 30 mg tablet 30 mg PO BID 09/27/22 07/28/23 Unknown History melatonin 10 mg tablet 10 mg PO BEDTIME 02/10/23 07/28/23 Unknown History omeprazole 20 mg capsule,delayed 20 mg PO DAILY 07/28/23 07/28/23 Unknown History release Physical Exam 2 Vital Signs and Narrative: Vital Signs: Last Vital Signs Temp 98.4 F 07/28/23 07:37 Pulse 135 H 07/28/23 10:31 Resp 20 07/28/23 10:31 BP 153/88 H 07/28/23 10:31 Pulse Ox 98 07/28/23 10:31 O2 Del Method Room Air 07/28/23 10:31 BMI result Body Mass Index 27.4 Constitutional - Awake and Alert, No apparent distress Eyes - PERRLA, EOMI Cardiovascular - S1S2, RRR, No edema Respiratory - Normal lung expansion, Normal respiratory effort, No respiratory distress, CTA bilaterally Gastrointestinal - NT / ND; +BS; No rebound or guarding Extremities - no calf tenderness bilaterally, no swelling Skin - Warm/Dry Neurological - Alert & oriented x3, CN II-XII in tact, tremors Psychological - Appropriate affect Results Labs 07/28/23 08:09 07/28/23 08:09 Labs: Laboratory Results - last 24 hr 07/28/23 08:09 MCV 79.0 L MCH 27.6 MCHC 34.9 RDW 14.3 Plt Count 191 MPV 9.3 L Immature Gran % (Auto) 0.2 Neut % (Auto) 64.7 Lymph % (Auto) 24.6 [place] % (Auto) 9.9 Eos % (Auto) 0.0 Baso % (Auto) 0.6 Lymph # (Auto) 2.1 [place] # (Auto) 0.9 Eos # (Auto) 0.0 Baso # (Auto) 0.1 Abs Immat Gran (auto) 0.02 Absolute Neuts (auto) 5.6 Absolute Nucleated RBC 0.000 Nucleated RBC % (auto) 0.0 Anion Gap 25 H Estim Creat Clear Calc 117.8 Estimated GFR > 60 Random Glucose 93 Calcium 9.5 Magnesium 2.0 Total Bilirubin 0.7 AST 26 ALT 24 Alkaline Phosphatase 54 Total Protein 8.1 H Albumin 4.7 Ethyl Alcohol 204 Imaging Radiologist's Impressions: Impressions Chest X-Ray 07/28/23 09:25 IMPRESSION: Unremarkable examination. Assessment and Plan (1) Alcohol withdrawal syndrome: Status: Acute Plan 37-year-old male with history of hypertension, GERD, alcohol dependence, RUE DVT, and major depressive disorder admitted for acute alcohol withdrawal #Acute alcohol withdrawal -initiate phenobarbital per protocol -monitor on ciwa -iv thiamine -iv folic acid -addiction med consult, hold campral -antiemetics prn -monitor on tele due to significant tachycardia r/t withdrawal #HTN -resume amlodipine 5mg -monitor bp #RUE DVT- present on admission -continue eliquis #GERD -continue ppi DVT prophylaxis-Eliquis Full code Patient requires inpatient stay at least 2 midnights for management of acute alcohol withdrawal on phenobarbital per protocol Quality Stroke Does the patient have a stroke diagnosis?: No VTE Prior VTE?: Yes VTE Risk Level:: Medical - moderate - high VTE Device Contraindication: Treatment Not Tolerated VTE Drug Contraindication: N/A - Med Ordered
--- NOTE | 2023-07-28 11:52 | PHA.MEDREC ---
Pharmacy Consult ? Medication Reconciliation Pharmacy has completed the medication reconciliation. Patient stated he no longer takes vivtrol. He also stated he is on folic acid and thiamine for a little while whenever discharged from hospitals
[2023-07-28] MEDS: Magnesium Hydrox/Alum Hydrox 30 ML ORAL.SUSP 15 ML PO (11:59)
[2023-07-28 12:14] LABS: Appearance Urine Clear; Color Urine Yellow; Glucose Urine UA Negative (Negative); Leukocyte Esterase Urine Negative (Negative); Nitrite Urine Negative (Negative); PH 5.5 (5.0-9.0); Urine Blood Negative (Negative); Urine Ketones 40 mg/dL (Negative); Urine Protein Trace mg/dL (Neg-Trace)
[2023-07-28 12:21] LABS: Amphetamine Screen Urine Not Detected (Not Detect); Barbiturates, Urine Not Detected (Not Detect); Benzodiazepines Screen Urine Not Detected (Not Detect); Cannabinoid Screen Urine Not Detected (Not Detect); Cocaine Screen Urine Not Detected (Not Detect); Fentanyl, urine Not Detected (Not Detect); Opiate Screen Urine Not Detected (Not Detect); Phencyclidine Screen Urine Not Detected (Not Detect)
[2023-07-28] MEDS: Thiamine HCL 100 MG in 0.9 % Sodium Chloride 100 ML 202 MG IV (12:47)
[2023-07-28] MEDS: Apixaban 5 MG TABLET PO ×2 (12:47→21:09)
[2023-07-28] MEDS: Omeprazole 20 MG CAPSULE.DR PO (12:47)
[2023-07-28] MEDS: busPIRone HCl 10 MG TABLET 30 MG PO ×2 (12:48→21:08)
[2023-07-28] MEDS: FLUoxetine HCl 20 MG CAPSULE 40 MG PO (12:48)
[2023-07-28] MEDS: Folic Acid 1 MG in 0.9 % Sodium Chloride 50 ML 100.4 MG IV (13:58)
[2023-07-28] MEDS: PHENobarbitaL sodium 130 MG/ML VIAL IM Q3Hx2 308 MG IM ×2 (13:59→17:02)
[2023-07-28] MEDS: 0.9 % Sodium Chloride Flush 3 ML SYRINGE IVFLUSH (17:01)
[2023-07-28] MEDS: ondansetron HCL 4 MG/2 ML VIAL IVPUSH (17:02)
[2023-07-28] MEDS: Acetaminophen 325 MG TABLET 650 MG PO (17:02)
--- NOTE | 2023-07-28 20:29 | PC.NURSE ---
Assumed care of pt. Pt lying on stretcher, eyes closed, respirations even and unlabored. No acute distress at this time. Continuing plan of care to monitor CIWA and awaiting admission bed.
[2023-07-28] MEDS: Melatonin 3 MG TABLET 9 MG PO (21:08)
[2023-07-28] MEDS: PHENobarbitaL 15 MG TABLET 45 MG PO (21:08)
[2023-07-28] MEDS: traZODone HCL 50 MG TABLET PO (21:09)
[2023-07-29 04:29] VITALS: BP 150/101; PULSE 72; RESP 18; TEMP 36.7; O2SAT 96
[2023-07-29 04:55] VITALS: BMI 26.6
[2023-07-29] MEDS: 0.9 % Sodium Chloride Flush 3 ML SYRINGE IVFLUSH ×3 (05:23→20:17)
[2023-07-29 06:44] LABS: MANUAL DIFF FLAG NO
[2023-07-29 06:53] LABS: Basophils Percent Auto 0.7 % (0-2); Eosinophils Percent Auto 0.4 % (0-4); Hematocrit 39.2 % (42.0-52.0); Hemoglobin 13.6 g/dl (14.0-18.0); Imm Gran Abs Auto 0.01 X10*3/uL (0.00-0.03); Imm Gran Pct Auto 0.2 % (0.0-0.4); Lymphocytes Absolute Auto 1.2 X10*3/uL (1.2-4.9); Lymphocytes Percent Auto 26.6 % (20-40); Mean Corpuscular HGB Conc 34.7 g/dl (31.0-36.0); Mean Corpuscular Hemoglobin 28.2 pg (27.0-33.0); Mean Corpuscular Volume 81.3 fL (80.0-98.0); Mean Platelet Volume 10.1 fL (9.4-12.4); Monocytes Absolute Auto 0.8 X10*3/uL (0.1-1.2); Monocytes Percent Auto 18.3 % (2-11); Neutrophils Absolute Auto 2.4 x10*3/uL (2.0-8.3); Neutrophils Percent Auto 53.8 % (45-73); Red Blood Count 4.82 X10*6/uL (4.60-5.80); Red Cell Distribution Width 14.4 % (11.0-16.0); White Blood Count 4.5 X10*3/uL (4.8-10.8)
[2023-07-29 07:05] VITALS: BP 133/88; PULSE 94; RESP 18; TEMP 36.9; O2SAT 96
[2023-07-29 07:19] LABS: Anion Gap 14 (12-20); Blood Urea Nitrogen 15 mg/dL (9-16); Calcium 8.9 mg/dL (8.4-10.2); Carbon Dioxide 29 mmol/L (22-29); Chloride 95 mmol/L (96-108); Creatinine Clr Calc Pharmacy 111.1; Estimated Glomerular Filt Rate > 60; Glucose Random 116 mg/dL (60-115); Potassium 3.7 mmol/L (3.3-5.1); Sodium 134 mmol/L (135-145)
--- NOTE | 2023-07-29 08:18 | MHC.CM.PN ---
CM met with Patient at bedside. Patient lives alone and required no services nor DME [employer]PAIR [employer]ER. Home self care vs Recovery Team intervention r/t ETOH is the tentative plan and CM has initiated and will follow for dc planning. Patient's Father/Duncan is the HCP and the PCP is Dr. Greg Ponce in [place].
[2023-07-29 08:31] LABS: Platelet Count 136 X10*3/uL (160-400)
[2023-07-29] MEDS: Thiamine HCL 100 MG in 0.9 % Sodium Chloride 100 ML 202 MG IV (09:21)
[2023-07-29] MEDS: Folic Acid 1 MG in 0.9 % Sodium Chloride 50 ML 100.4 MG IV (09:24)
[2023-07-29] MEDS: Omeprazole 20 MG CAPSULE.DR PO (09:25)
[2023-07-29] MEDS: PHENobarbitaL 15 MG TABLET 45 MG PO ×2 (09:25→20:16)
[2023-07-29] MEDS: busPIRone HCl 10 MG TABLET 30 MG PO ×2 (09:25→20:16)
[2023-07-29] MEDS: Acetaminophen 325 MG TABLET 650 MG PO (09:25)
[2023-07-29] MEDS: Apixaban 5 MG TABLET PO ×2 (09:26→20:16)
[2023-07-29] MEDS: FLUoxetine HCl 20 MG CAPSULE 40 MG PO (09:26)
--- NOTE | 2023-07-29 10:32 | MHC.CM.PN ---
Per MD in ROUNDS discussion, Patient us nit yet medically cleared for dc (ETOH Withdrawal); home is the goal and CM will continue to follow.
--- NOTE | 2023-07-29 10:52 | HO.PM.IMPN ---
Subjective Subjective Date of Service: 07/29/23 Interval History: improving, still with withdrawal symptoms Physical Exam Vital Signs: Vital Signs: Last Vital Signs Temp 98.4 F 07/29/23 07:05 Pulse 94 07/29/23 07:05 Resp 18 07/29/23 07:05 BP 133/88 07/29/23 07:05 Pulse Ox 96 07/29/23 07:05 O2 Del Method Room Air 07/29/23 07:05 BMI result Body Mass Index 26.6 General: AO X 3, no acute distress Resp: CTA bilateral, no accessory muscles used CVS: S1,S2,RRR GI: soft, non tender, non distended Neuro: motor grossly intact, alert, resting tremor Psych: appropriate affect, appropriate insight Objective Data Active Medications Acetaminophen (Acetaminophen 325 Mg Tablet) 650 mg PO Q6H PRN PRN Reason: Pain, Mild (Pain Scale 1-3) Last Admin: 07/29/23 09:25 Dose: 650 mg Documented By: BIENVENIDO Al Hydroxide/Mg Hydroxide (Magnesium Hydrox/Alum Hydrox 30 Ml Oral.Susp) 30 ml PO Q4H PRN PRN Reason: Heartburn/Nausea Apixaban (Apixaban 5 Mg Tablet) 5 mg PO BID [facility] Last Admin: 07/29/23 09:26 Dose: 5 mg Documented By: BIENVENIDO Buspirone HCl (Buspirone Hcl 10 Mg Tablet) 30 mg PO BID [facility] Last Admin: 07/29/23 09:25 Dose: 30 mg Documented By: BIENVENIDO Fluoxetine HCl (Fluoxetine Hcl 20 Mg Capsule) 40 mg PO DAILY [facility] Last Admin: 07/29/23 09:26 Dose: 40 mg Documented By: BIENVENIDO Thiamine HCl 100 mg/ Sodium (Chloride) 101 mls @ 202 mls/hr IV DAILY [facility] Last Admin: 07/29/23 09:21 Dose: 202 mls/hr Documented By: BIENVENIDO Folic Acid 1 mg/ Sodium (Chloride) 50.2 mls @ 100.4 mls/hr IV DAILY [facility] Stop: 07/30/23 09:29 Last Admin: 07/29/23 09:24 Dose: 100.4 mls/hr Documented By: BIENVENIDO Melatonin (Melatonin 3 Mg Tablet) 9 mg PO BEDTIME [facility] Last Admin: 07/28/23 21:08 Dose: 9 mg Documented By: MAREN Omeprazole (Omeprazole 20 Mg Capsule.Dr) 20 mg PO DAILY [facility] Last Admin: 07/29/23 09:25 Dose: 20 mg Documented By: BIENVENIDO Ondansetron HCl (Ondansetron Hcl 4 Mg/2 Ml Vial) 4 mg IVPUSH Q8H PRN PRN Reason: Nausea and Vomiting Last Admin: 07/28/23 17:02 Dose: 4 mg Documented By: WILLEM Pharmacy Consult (Consult Rx Etoh Phenob Im/Po) 1 each MISCELLANE ONCE PRN; Protocol PRN Reason: Consult order Phenobarbital (Phenobarbital 15 Mg Tablet) 45 mg PO BID [facility] Stop: 07/30/23 09:01 Last Admin: 07/29/23 09:25 Dose: 45 mg Documented By: BIENVENIDO Phenobarbital (Phenobarbital 15 Mg Tablet) 15 mg PO BID [facility] Stop: 08/01/23 09:01 Phenobarbital (Phenobarbital 15 Mg Tablet) 15 mg PO DAILY [facility] Stop: 08/03/23 09:01 Senna (Sennosides 8.6 Mg Tablet) 17.2 mg PO BEDTIME PRN PRN Reason: Constipation Sodium Chloride (0.9 % Sodium Chloride Flush 3 Ml Syringe) 3 ml IVFLUSH QSHIFT [facility] Last Admin: 07/29/23 09:26 Dose: 3 ml Documented By: BIENVENIDO Trazodone HCl (Trazodone Hcl 50 Mg Tablet) 50 mg PO BEDTIME [facility] Last Admin: 07/28/23 21:09 Dose: 50 mg Documented By: MAREN Labs 07/29/23 06:36 07/29/23 06:36 Labs: Laboratory Results - last 24 hr 07/28/23 07/29/23 12:04 06:36 MCV 81.3 MCH 28.2 MCHC 34.7 RDW 14.4 Plt Count 136 L D MPV 10.1 Immature Gran % (Auto) 0.2 Neut % (Auto) 53.8 Lymph % (Auto) 26.6 [place] % (Auto) 18.3 H Eos % (Auto) 0.4 Baso % (Auto) 0.7 Lymph # (Auto) 1.2 [place] # (Auto) 0.8 Eos # (Auto) 0.0 Baso # (Auto) 0.0 Abs Immat Gran (auto) 0.01 Absolute Neuts (auto) 2.4 Absolute Nucleated RBC 0.000 Nucleated RBC % (auto) 0.0 Anion Gap 14 Estim Creat Clear Calc 111.1 Estimated GFR > 60 Random Glucose 116 H Calcium 8.9 D Urine Color Yellow Urine Appearance Clear Urine pH 5.5 Ur Specific [place] 1.010 Urine Protein Trace Urine Glucose (UA) Negative Urine Ketones 40 Urine Blood Negative Urine Nitrite Negative Ur Leukocyte Esterase Negative Urine Opiates Screen Not Detected Urine Fentanyl Screen Not Detected Ur Barbiturates Screen Not Detected Ur Phencyclidine Scrn Not Detected Ur Amphetamines Screen Not Detected U Benzodiazepines Scrn Not Detected Urine Cocaine Screen Not Detected U Marijuana (THC) Screen Not Detected Assessment and Plan (1) Alcohol withdrawal syndrome: Status: Acute (2) Alcohol withdrawal syndrome: Status: Resolved Plan 37M PMH hypertension, GERD, alcohol dependence, recent provoked right upper extremity dvt, and major depressive disorder admitted for etoh withdrawal alcohol dependence with withdrawal continue phenobarb, folate, thiamine epistaxis, -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, recurrent-No anemia outpt follow up with ENT Saline nasal spray Fracture nasal spine maxilla no displacement no intervention needed RUE provoked DVT 05/31/24 continue apixaban 1 more month AFLD alcohol cessation MDD buspar, prozac GERD PPI hypertension previously on amlodipine but discontinued by PCP monitor blood pressures DVT prophylaxis- apixaban Full code reason for continued hospitalization: Alcohol withdrawal at risk for DTs Quality Stroke Does the patient have a stroke diagnosis?: No VTE Prior VTE?: Yes VTE Risk Level:: Medical - moderate - high VTE Device Contraindication: Treatment Not Tolerated VTE Drug Contraindication: N/A - Med Ordered
[2023-07-29 10:54] VITALS: BP 122/76; PULSE 90; RESP 18; TEMP 36.6; O2SAT 95
[2023-07-29 15:42] VITALS: BP 132/83; PULSE 100; RESP 18; TEMP 36.3; O2SAT 97
--- NOTE | 2023-07-29 16:42 | PM.EVENT ---
Event Note Date of Service: 07/29/23 Event Note: Attempted to meet with patient mid day, patient requesting t/w and RN come back as he has not slept since admission Will follow up tmrw Time Spent With Patient Time: Total time managing care of this patient today ____ minutes.
[2023-07-29 19:18] VITALS: BP 138/77; PULSE 72; RESP 18; TEMP 36.9; O2SAT 97
[2023-07-29] MEDS: Melatonin 3 MG TABLET 9 MG PO (20:16)
[2023-07-29] MEDS: traZODone HCL 50 MG TABLET PO (20:16)
[2023-07-29 23:22] VITALS: BP 123/75; PULSE 86; RESP 18; TEMP 36.7; O2SAT 99
[2023-07-30] VITALS (7 sets, daily range): BP systolic 125–170; BP diastolic 70–120; PULSE 62–95; RESP 16–20; TEMP 36.1–37.3; O2SAT 95–99
[2023-07-30] MEDS: busPIRone HCl 10 MG TABLET 30 MG PO ×2 (07:52→20:56)
[2023-07-30] MEDS: PHENobarbitaL 15 MG TABLET 45 MG PO (07:52)
[2023-07-30] MEDS: FLUoxetine HCl 20 MG CAPSULE 40 MG PO (07:52)
[2023-07-30] MEDS: Apixaban 5 MG TABLET PO ×2 (07:52→20:48)
[2023-07-30] MEDS: Omeprazole 20 MG CAPSULE.DR PO (07:52)
[2023-07-30] MEDS: Thiamine HCL 100 MG in 0.9 % Sodium Chloride 100 ML 202 MG IV (07:53)
[2023-07-30] MEDS: 0.9 % Sodium Chloride Flush 3 ML SYRINGE IVFLUSH ×3 (07:53→20:49)
--- NOTE | 2023-07-30 08:42 | P.PNIM_ITS ---
Subjective Subjective Date of Service: 07/30/23 Interval History: more withdrawal symptoms this am Physical Exam 2 Vital Signs: Vital Signs: Last Vital Signs Temp 99.1 F 07/30/23 07:51 Pulse 83 07/30/23 07:51 Resp 18 07/30/23 07:51 BP 135/76 07/30/23 07:51 Pulse Ox 98 07/30/23 07:51 O2 Del Method Room Air 07/30/23 07:51 BMI result Body Mass Index 26.6 General: AO X 3, anxious Resp: CTA bilateral, no accessory muscles used CVS: S1,S2,RRR GI: soft, non tender, non distended Neuro: motor grossly intact, alert, resting tremor Objective Data Active Medications Acetaminophen (Acetaminophen 325 Mg Tablet) 650 mg PO Q6H PRN PRN Reason: Pain, Mild (Pain Scale 1-3) Last Admin: 07/29/23 09:25 Dose: 650 mg Documented By: BIENVENIDO Al Hydroxide/Mg Hydroxide (Magnesium Hydrox/Alum Hydrox 30 Ml Oral.Susp) 30 ml PO Q4H PRN PRN Reason: Heartburn/Nausea Apixaban (Apixaban 5 Mg Tablet) 5 mg PO BID [facility] Last Admin: 07/30/23 07:52 Dose: 5 mg Documented By: TOM Buspirone HCl (Buspirone Hcl 10 Mg Tablet) 30 mg PO BID [facility] Last Admin: 07/30/23 07:52 Dose: 30 mg Documented By: TOM Fluoxetine HCl (Fluoxetine Hcl 20 Mg Capsule) 40 mg PO DAILY [facility] Last Admin: 07/30/23 07:52 Dose: 40 mg Documented By: TOM Thiamine HCl 100 mg/ Sodium (Chloride) 101 mls @ 202 mls/hr IV DAILY [facility] Last Admin: 07/30/23 07:53 Dose: 202 mls/hr Documented By: TOM Folic Acid 1 mg/ Sodium (Chloride) 50.2 mls @ 100.4 mls/hr IV DAILY [facility] Stop: 07/30/23 09:29 Last Infusion: 07/29/23 10:56 Dose: Infused Documented By: BIENVENIDO Melatonin (Melatonin 3 Mg Tablet) 9 mg PO BEDTIME [facility] Last Admin: 07/29/23 20:16 Dose: 9 mg Documented By: JONATHAN Omeprazole (Omeprazole 20 Mg Capsule.) 20 mg PO DAILY [facility] Last Admin: 07/30/23 07:52 Dose: 20 mg Documented By: TOM Ondansetron HCl (Ondansetron Hcl 4 Mg/2 Ml Vial) 4 mg IVPUSH Q8H PRN PRN Reason: Nausea and Vomiting Last Admin: 07/28/23 17:02 Dose: 4 mg Documented By: WILLEM Pharmacy Consult (Consult Rx Etoh Phenob Im/Po) 1 each MISCELLANE ONCE PRN; Protocol PRN Reason: Consult order Phenobarbital (Phenobarbital 15 Mg Tablet) 45 mg PO BID [facility] Stop: 07/30/23 09:01 Last Admin: 07/30/23 07:52 Dose: 45 mg Documented By: TOM Phenobarbital (Phenobarbital 15 Mg Tablet) 15 mg PO BID [facility] Stop: 08/01/23 09:01 Phenobarbital (Phenobarbital 15 Mg Tablet) 15 mg PO DAILY [facility] Stop: 08/03/23 09:01 Senna (Sennosides 8.6 Mg Tablet) 17.2 mg PO BEDTIME PRN PRN Reason: Constipation Sodium Chloride (0.9 % Sodium Chloride Flush 3 Ml Syringe) 3 ml IVFLUSH QSHIFT [facility] Last Admin: 07/30/23 07:53 Dose: 3 ml Documented By: TOM Trazodone HCl (Trazodone Hcl 50 Mg Tablet) 50 mg PO BEDTIME [facility] Last Admin: 07/29/23 20:16 Dose: 50 mg Documented By: JONATHAN Labs 07/29/23 06:36 07/29/23 06:36 Assessment and Plan (1) Alcohol withdrawal syndrome: Status: Acute (2) Alcohol withdrawal syndrome: Status: Resolved Plan 37M PMH hypertension, GERD, alcohol dependence, recent provoked right upper extremity dvt, and major depressive disorder admitted for etoh withdrawal alcohol dependence with withdrawal ciwa 10 continue phenobarb (extra 60mg po today), folate, thiamine epistaxis, -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, recurrent-No anemia outpt follow up with ENT Saline nasal spray Fracture nasal spine maxilla no displacement no intervention needed RUE provoked DVT 05/31/24 continue apixaban 1 more month AFLD alcohol cessation MDD buspar, prozac GERD PPI hypertension previously on amlodipine but discontinued by PCP monitor blood pressures DVT prophylaxis- apixaban Full code reason for continued hospitalization: Alcohol withdrawal at risk for DTs Quality Stroke Does the patient have a stroke diagnosis?: No VTE Prior VTE?: Yes VTE Risk Level:: Medical - moderate - high VTE Device Contraindication: Treatment Not Tolerated VTE Drug Contraindication: N/A - Med Ordered
[2023-07-30] MEDS: PHENobarbitaL 30 MG TABLET 60 MG PO (09:07)
[2023-07-30] MEDS: Folic Acid 1 MG in 0.9 % Sodium Chloride 50 ML 100.4 MG IV (09:07)
[2023-07-30] MEDS: cloNIDine HCL 0.1 MG TABLET PO (16:18)
[2023-07-30] MEDS: Melatonin 3 MG TABLET 9 MG PO (20:48)
[2023-07-30] MEDS: traZODone HCL 50 MG TABLET PO (20:48)
[2023-07-30] MEDS: PHENobarbitaL 15 MG TABLET PO (20:49)
[2023-07-31 03:03] VITALS: BP 136/73; PULSE 61; RESP 18; TEMP 36.1; O2SAT 97
[2023-07-31 07:01] LABS: Hematocrit 41.5 % (42.0-52.0); Hemoglobin 14.4 g/dl (14.0-18.0); Mean Corpuscular HGB Conc 34.7 g/dl (31.0-36.0); Mean Corpuscular Hemoglobin 28.2 pg (27.0-33.0); Mean Corpuscular Volume 81.2 fL (80.0-98.0); Mean Platelet Volume 10.3 fL (9.4-12.4); Platelet Count 147 X10*3/uL (160-400); Red Blood Count 5.11 X10*6/uL (4.60-5.80); Red Cell Distribution Width 13.7 % (11.0-16.0); White Blood Count 4.8 X10*3/uL (4.8-10.8)
[2023-07-31 07:34] LABS: Alanine Aminotransferase 38 U/L (0-40); Albumin Level 4.3 g/dL (3.5-5.0); Alkaline Phosphatase 44 U/L (39-117); Anion Gap 16 (12-20); Aspartate Amino Transferase 47 U/L (5-37); Bilirubin Direct 0.2 mg/dL (0.0-0.5); Bilirubin Total 0.6 mg/dL (0.0-1.0); Blood Urea Nitrogen 15 mg/dL (9-16); Calcium 9.6 mg/dL (8.4-10.2); Carbon Dioxide 25 mmol/L (22-29); Chloride 101 mmol/L (96-108); Creatinine Clr Calc Pharmacy 123.8; Estimated Glomerular Filt Rate > 60; Glucose Fasting 107 mg/dL (60-99); Magnesium 2.3 mg/dL (1.6-2.6); Potassium 3.5 mmol/L (3.3-5.1); Sodium 138 mmol/L (135-145); Total Protein 7.4 g/dL (6.5-8.0)
[2023-07-31 07:40] VITALS: BP 134/91; PULSE 80; RESP 20; TEMP 36.5; O2SAT 100
[2023-07-31] MEDS: Thiamine HCL 100 MG in 0.9 % Sodium Chloride 100 ML 202 MG IV (08:20)
[2023-07-31] MEDS: busPIRone HCl 10 MG TABLET 30 MG PO (08:22)
[2023-07-31] MEDS: Apixaban 5 MG TABLET PO (08:22)
[2023-07-31] MEDS: FLUoxetine HCl 20 MG CAPSULE 40 MG PO (08:22)
[2023-07-31] MEDS: Omeprazole 20 MG CAPSULE.DR PO (08:22)
[2023-07-31] MEDS: PHENobarbitaL 15 MG TABLET PO (08:22)
[2023-07-31] MEDS: 0.9 % Sodium Chloride Flush 3 ML SYRINGE IVFLUSH (08:23)
--- NOTE | 2023-07-31 10:15 | MHC.CM.PN ---
Patient has been medically cleared for dc to home today, self care.
--- NOTE | 2023-07-31 10:22 | PM.DS ---
DS: Providers Provider Date of Service: 07/31/23 Date of admission: 07/28/23 11:48 Primary care physician: Greg Ponce DO Consults: 07/28/23 07:34 Consult to Care Team Stat Comment: Reason for consultation: seeking recovery 07/28/23 11:48 Addiction Medicine Routine Consulting Provider: Addiction Covering Reason for consultation: etoh dependence DS: Diagnosis Discharge Diagnosis (1) Alcohol withdrawal syndrome: Status: Acute DS: Summary Hospital Course Hospital Course: from initial hpi: 37-year-old male with history of hypertension, GERD, alcohol dependence, RUE DVT, and major depressive disorder presents to the ED earlier today due to confusion with increased alcohol consumption. The patient has along history of alcohol dependence with multiple admissions for withdrawal and has followed with [facility] and takes campral. He states he has decreased to moderate consumption wiht 4 beers daily but over the weekend began binging on a handle of vodka and started day drinking again. Reports increased stressors at home. Last drink was this morning just prior to arrival. He is currently feeling shakey, confused, nauseous. No SI/HI. Since arrival patient sinus rhythm but tachycardic 117-150 and hypertensive to 153/88 on admission. No hypoxia. Hematology studies unremarkable. Renal function baseline, lytes normal except co2 19. Hepatic function normal. Ethyl alcohol level 204. CXR unremarkable. EKS shows sinus tachycardia, rate 116, no st/t wave abnormalities. In the ED, given IV NS, 2mg ativan, and started on phenobarbital per protocol. hospital course: Patient was admitted for alcohol dependence with withdrawal. He was given phenobarbital protocol and withdrawal resolved. He is feeling much better will be discharged home. [facility] He was noted to have some epistaxis and will follow up outpatient with ENT. For reason history of right upper extremity provoked DVT he will continue apixaban for 1 more month. For alcoholic fatty liver disease alcohol cessation is recommended. For mood disorder he was continued on BuSpar and Prozac. Time Attestation Discharge coordination time: Greater than 30 minutes Quality: Safe Use of Opioids Does Pt have an Active Cancer Diagnosis on the Problem List?: No Quality: Stroke Does the patient have a stroke diagnosis?: No Physical Exam Vital Signs: Vital Signs: Last Vital Signs Temp 97.7 F 07/31/23 07:40 Pulse 80 07/31/23 07:40 Resp 20 07/31/23 07:40 BP 134/91 H 07/31/23 07:40 Pulse Ox 100 07/31/23 07:40 O2 Del Method Room Air 07/31/23 07:40 BMI result Body Mass Index 26.6 General: AO X 3, no acute distress Resp: CTA bilateral, no accessory muscles used CVS: S1,S2,RRR GI: soft, non tender, non distended Neuro: motor grossly intact, alert Psych: appropriate affect, appropriate insight DS: Data Data Completed and Pending Completed studies during hospitalization [Text1]: Procedures Detoxification Services for Substance Abuse Treatment (02/10/23) Labs on day of discharge: Laboratory Results - last 24 hr 07/31/23 06:21 WBC 4.8 RBC 5.11 Hgb 14.4 Hct 41.5 L MCV 81.2 MCH 28.2 MCHC 34.7 RDW 13.7 Plt Count 147 L MPV 10.3 Absolute Nucleated RBC 0.000 Nucleated RBC % (auto) 0.0 Sodium 138 Potassium 3.5 Chloride 101 Carbon Dioxide 25 Anion Gap 16 BUN 15 Creatinine 0.79 Estim Creat Clear Calc 123.8 Estimated GFR > 60 Fasting Glucose 107 H Calcium 9.6 D Magnesium 2.3 Total Bilirubin 0.6 Direct Bilirubin 0.2 AST 47 H ALT 38 Alkaline Phosphatase 44 Total Protein 7.4 Albumin 4.3 Discharge Plan Discharge Anticipated Discharge Date/Time: 07/31/23 10:11 Patient Disposition: Home, Self-Care Discharge Diagnosis: etoh withdrawal Referrals: Greg Ponce DO [Primary Care Provider] - 1 Week Discharge Medications: Continued acamprosate 333 mg tablet,delayed release (DR/EC) 666 mg PO TID Qty: 180 0RF fluoxetine 40 mg capsule 40 mg PO DAILY Qty: 30 0RF trazodone 50 mg tablet 50 mg PO BEDTIME Qty: 30 0RF buspirone 30 mg tablet 30 mg PO BID Eliquis 5 mg Tablet 5 mg PO BID Qty: 60 3RF omeprazole 20 mg Capsule,Delayed Release(Dr/Ec) 20 mg PO DAILY melatonin 10 mg Tablet 10 mg PO BEDTIME Discharge Orders: Discharge Order (Routine); Ordered 07/31/23 Ordered By: Velasquez Cole Diet: Advance to usual diet Activity on Discharge: As tolerated Stand Alone Forms: Patient Portal Discharge page, Work/School Release Care Plan Goals: recovery Health Concerns: etoh Plan of Treatment: avoid etoh Assessment: see above
--- NOTE | 2023-07-31 10:56 | MHC.RECOVRN ---
Met with pt to follow up after pt admitted for alcohol withdrawal. Pt laying in bed, awake, alert, easily engages in conversation, tearful at times. Pt reports he had been drinking 1-3 beers per night without a problem, however, on Thursday found out grandmother would pass away at any point and began drinking vodka. Pt reports once he begins drinking vodka he is unable to stop. Pt reports grandmother on Thursday, tearful when discussing this. Pt reports he continues to attempt drinking but I always end up here. Pts goal is not abstinence, goal to drink a couple beers at night. Discussed other coping skills for stressful times, pt hesitant to discuss options other than reduced alcohol use. Pt currently goes to [facility], missed appt due to hospitalization. Appt rescheduled for 3/4 at 3PM, RN and CM aware. Pt denies other questions or concerns at this time.
== END 2023-07-31 12:01 | disposition home or self-care (01) | DRG 775 ==
LOC: HO.ED 11:37 → HO.EDOVER 12:05 → HO.IMC 07-29 03:10
PROVIDERS: Physician Assistant; Admitting Provider Physician Assistant; Emergency Provider Emergency Medicine; PCP Family Medicine; Visit Provider Internal Medicine
DX: F10.239 Alcohol dependence with withdrawal, unspecified (principal); F10.229 Alcohol dependence with intoxication, unspecified; Y90.7 Blood alcohol level of 200-239 mg/100 ml; R04.0 Epistaxis; F32.9 Major depressive disorder, single episode, unspecified; I10 Essential (primary) hypertension; Z86.718 Personal history of other venous thrombosis and embolism; Z79.01 Long term (current) use of anticoagulants; Z79.899 Other long term (current) drug therapy
CPT/HCPCS: 36415; 71045; 80048; 80053; 80076; 80307; 81003; 83735; 85025; 85027; 93005; 99285; J2060; J2405; J2560; J3411

== ENCOUNTER → 2023-07-28 07:35 | Outpatient (BNV) | payer OTHER, SELFPAY | PROVIDERS: Admitting Provider Physician Assistant; Emergency Provider Emergency Medicine; Visit Provider Internal Medicine | DX: R00.0 Tachycardia, unspecified (principal) | CPT/HCPCS: 93010 ==

== ENCOUNTER → 2023-07-28 11:48 | Outpatient (BNV) | payer OTHER, SELFPAY | PROVIDERS: Admitting Provider Physician Assistant; Emergency Provider Emergency Medicine; Visit Provider Physician Assistant | DX: F10.239 Alcohol dependence with withdrawal, unspecified (principal) | CPT/HCPCS: 99223; 99233; 99238 ==

== ENCOUNTER 2023-08-03 16:52 | Emergency (ER) | payer OTHER, SELFPAY ==
--- NOTE | ~2023-08-03 | CT_ITS ---
CT ORBITS WITHOUT CONTRAST HISTORY: Rule out left orbital fracture. TECHNIQUE: CT images of the orbits were acquired without contrast. This CT examination was performed using dose optimization techniques as appropriate, variously including the following: *Automated exposure control *Adjustment of mA and/or kV according to patient size (this includes techniques or standardized protocols for targeted exams where dose is matched to indication/reason for exam; i.e. extremities or head) *Use of iterative reconstruction technique DLP: 137 mGy-cm COMPARISON: Same day maxillofacial CT FINDINGS: No evidence of globe hemorrhage or lens dislocation. No retrobulbar hematoma or radio-opaque foreign body. Normal symmetric appearance of the extraocular muscles. No infiltration of the pre- or postseptal fat. No abnormality of the visualized intracranial compartment. Visualized paranasal sinuses and mastoid air cells are well aerated. Osseous structures are intact. CT/CT orbit BI wo IV con IMPRESSION: Normal CT orbits. No evidence of orbital fracture
--- NOTE | ~2023-08-03 | CT_ITS ---
EXAMINATION: CT facial bones wo IV con, CT head/brain wo IV con CLINICAL INFORMATION: Reason for Exam ?fall, head injury, L orbit ecchymosis COMPARISON: None. TECHNIQUE: Contiguous axial imaging was performed without intravenous contrast. Sagittal and coronal reformatted images were obtained. This CT examination was performed using dose optimization techniques as appropriate, variously including the following: * Automated exposure control * Adjustment of mA and/or kV according to patient size (this includes techniques or standardized protocols for targeted exams where dose is matched to indication/reason for exam; i.e. extremities or head) Use of iterative reconstruction technique DLP: 1218 mGy-cm FINDINGS: BRAIN: No acute osseous or soft tissue abnormality. The mastoid air cells are clear. There is no evidence of acute intracranial hemorrhage or territorial infarction. No abnormal mass effect or midline shift is seen. Cardoza to white matter differentiation is well preserved. No extra-axial fluid collections are identified. No hydrocephalus. No significant volume loss. There is no abnormal attenuation within the brain parenchyma. MAXILLOFACIAL: Motion degraded examination which limits sensitivity for nondisplaced fractures. No evidence of acute facial fracture. Paranasal sinuses are well aerated. Mild left periorbital soft tissue swelling. Normal appearance of the orbits and globes. No retrobulbar hematoma. CT/CT facial bones wo IV con IMPRESSION: 1. No acute intracranial abnormality including hemorrhage, mass effect, hydrocephalus, or acute territorial edematous infarction. 2. Maxillofacial CT is motion degraded which limits sensitivity for nondisplaced fracture. Within this limitation, no evidence of acute facial fracture.
--- NOTE | ~2023-08-03 | CT_ITS ---
EXAMINATION: CT facial bones wo IV con, CT head/brain wo IV con CLINICAL INFORMATION: Reason for Exam ?fall, head injury, L orbit ecchymosis COMPARISON: None. TECHNIQUE: Contiguous axial imaging was performed without intravenous contrast. Sagittal and coronal reformatted images were obtained. This CT examination was performed using dose optimization techniques as appropriate, variously including the following: * Automated exposure control * Adjustment of mA and/or kV according to patient size (this includes techniques or standardized protocols for targeted exams where dose is matched to indication/reason for exam; i.e. extremities or head) Use of iterative reconstruction technique DLP: 1218 mGy-cm FINDINGS: BRAIN: No acute osseous or soft tissue abnormality. The mastoid air cells are clear. There is no evidence of acute intracranial hemorrhage or territorial infarction. No abnormal mass effect or midline shift is seen. Cardoza to white matter differentiation is well preserved. No extra-axial fluid collections are identified. No hydrocephalus. No significant volume loss. There is no abnormal attenuation within the brain parenchyma. MAXILLOFACIAL: Motion degraded examination which limits sensitivity for nondisplaced fractures. No evidence of acute facial fracture. Paranasal sinuses are well aerated. Mild left periorbital soft tissue swelling. Normal appearance of the orbits and globes. No retrobulbar hematoma. CT/CT head/brain wo IV con IMPRESSION: 1. No acute intracranial abnormality including hemorrhage, mass effect, hydrocephalus, or acute territorial edematous infarction. 2. Maxillofacial CT is motion degraded which limits sensitivity for nondisplaced fracture. Within this limitation, no evidence of acute facial fracture.
--- NOTE | ~2023-08-03 | XR_ITS ---
EXAMINATION: XR CHEST CLINICAL INFORMATION: Cough. COMPARISON: Chest radiograph dated 07/28/2023. TECHNIQUE: 2 views of the chest were obtained. FINDINGS: The lungs are clear. The cardiomediastinal silhouette is normal in size. There is no pleural effusion or pneumothorax. No acute osseous abnormality. XR/XR chest 2V IMPRESSION: No acute cardiopulmonary findings.
--- NOTE | 2023-08-03 17:14 | ED_ITS ---
HPI - Alcohol General Chief Complaint: ETOH/Substance Use Stated Complaint: ETOH FOR 3 DAYS Source: patient Mode of arrival: EMS Limitations: no limitations History of Present Illness HPI narrative: Patient is a 37-year-old male who presents emergency department via EMS clearly intoxicated. When asked he states he is drinking ?a lot of alcohol?. He can not quantify it. Per EMS report his dad found him today with a black eye on the left of unknown etiology. When asked patient has no knowledge of having the black eye nor how it occurred. He does not have any recollection of recent fall precipitating injury. He has a very poor historian at this time. He does endorse a history of alcohol withdrawal but denies any history of withdrawal seizures. Denies any drug usage. Reports he was prescribed fluoxetine and BuSpar which he reportedly has been taking. Related Data Home Medications Medication Instructions Recorded Confirmed buspirone 30 mg tablet 30 mg PO BID 09/27/22 07/28/23 melatonin 10 mg tablet 10 mg PO BEDTIME 02/10/23 07/28/23 omeprazole 20 mg capsule,delayed 20 mg PO DAILY 07/28/23 07/28/23 release Previous Rx's Medication Instructions Recorded apixaban 5 mg tablet (Eliquis) 5 mg PO BID #60 tabs 07/08/23 acamprosate 333 mg tablet,delayed 666 mg (2 x 333 mg) PO TID #180 07/09/23 release tabs fluoxetine 40 mg capsule 40 mg PO DAILY #30 caps 07/09/23 trazodone 50 mg tablet 50 mg PO BEDTIME #30 tabs 07/09/23 Allergies Allergy/AdvReac Type Severity Reaction Status Date / Time No Known Allergies Allergy Unknown UNKNOWN Verified 08/03/23 17:37 [NO KNOWN ALLERGIES] Review of Systems 2 Review of Systems: Yes all other systems are reviewed and are negative PMFSH Past Medical History Attestation statement: The following information was validated with the patient. Source: old records reviewed Medical History Deep vein thrombosis, upper right extremity Alcohol use disorder, severe, dependence Alcohol abuse Elevated LFTs Recurrent major depression-severe Alcohol withdrawal syndrome Hypertension Anxiety and depression Psychiatric disturbance Family History Family History Other Lung cancer Social History Social History Household Members: None Housing: House Do you presently have visiting nurse or other home services: No Alcohol intake: current Alcohol intake frequency: 3 or more drinks per day Alcohol type: beer and hard liquor Comment: Declines Bed Alarm Patient Tobacco Use Status: Never used Tobacco Smoked in Last 30 Days: No e-Cigarette/Vaping Use: Never Used Second Hand Smoke Exposure: No Use of substances other than those prescribed or required for medical reasons: Refusing to respond Substance Use Type: Marijuana Advance Directives: Yes Advance Directives on File: Yes Advance Directives Date on File: 01/08/21 service: No Current occupational status: unemployed Sexual orientation: Straight/Heterosexual Physical Exam ED Vital Signs: Vital Signs - 24 hr 08/03/23 17:34 08/03/23 19:25 08/03/23 23:31 Temperature 98.8 F 96.9 F 98.7 F Pulse Rate 120 H 144 H 130 H Respiratory Rate 19 18 16 Blood Pressure 138/83 163/108 H 139/62 Pulse Oximetry 94 99 93 Oxygen Delivery Method Room Air Room Air Room Air BMI result Body Mass Index 26.1 Appearance: Alert. Intoxicated Head: Normocephalic Eyes: Pupils equal, round and reactive to light.? Due to acute intoxication difficulty evaluating extraocular movements. Appears to have mild exophthalmos on the left with periorbital ecchymosis. No palpable step-offs or deformities. ENT: Pharynx normal.??Dentition normal. Uvula midline. Neck: Normal inspection.? Neck supple.??No midline cervical spine tenderness, step-offs, deformities. CVS: Heart sounds normal. Normal heart rate and rhythm.? Pulses normal.?? Respiratory: No respiratory distress.? Lung sounds clear to auscultation bilaterally?? Abdomen: Soft and non-tender. Normoactive bowel sounds. ? Skin: Skin warm and dry.? Normal skin color.? Extremities: No lower extremity edema.? Neuro: Moves all extremities spontaneously. Sensation intact bilaterally. No focal neuro deficits. Ambulates with unsteady gait. Course Reevaluation(s) Reevaluation #1: CBC is without leukocytosis or anemia. Mildly elevated transaminases which has actually improved when compared to prior levels. Ethanol level 380. CT of the head is without acute intracranial abnormality, evaluation of facial bones is limited due to motion for a nondisplaced fracture, however no evidence of acute displaced facial fracture. On exam I did not appreciate any obvious bony step- offs or deformities. Clinically he remains obviously intoxicated, will outpatient time for clinical sobriety and re evaluated with patient. I would like to repeat CT of the facial bones to exclude any fracture, and would defer sedation for imaging at this time Reevaluation #2: Repeat CT scan does not show evidence of orbital fracture. Patient remains tachycardic though he did become quite agitated reporting feels like he is going through alcohol withdrawal for which he received oral lorazepam. Has been tachycardic or in the emergency department, EKG revealing sinus tachycardia with ventricular rate of 120, QTC 469, no acute ischemic abnormalities. Upon speaking with patient he declines interest in seeking evaluation from recovery team for inpatient detox services as he does not feel as though these have been helpful for him in the past. He is currently working with addiction medicine for assistance with possible re-initiation of Vivitrol, and states he has an appointment later this week. Would like to be discharged home in the morning when he has a safe and stable ride home. I did express concern as he has required admission in the past for acute alcohol withdrawal. He feels strongly about not being admitted to the hospital at this time. I consulted with ED attending, Dr. Christie who recommends close monitoring of CIWA scale lorazepam orally q.2 hours as needed. Patient signed out to overnight attending Dr. Santiago placed in physician observation Time: 01:49 Medical Decision Making Medical Decision Making MDM Narrative: Patient is a 37-year-old male past medical history of anxiety, depression, alcohol use disorder, alcohol withdrawal syndrome, hypertension, provoked right upper extremity DVT 05/31/2024 after reported IV placement presenting to emergency department via EMS for evaluation. Presents clinically intoxicated, unable to obtain much history from patient, he does admit ?drinking a lot? without any quantified amount and periorbital ecchymosis on the left of unknown etiology. On exam does not have findings consistent with an obvious penetration injury, no reported pain, negative [place] sign, no teardrop pupil, no hyphema, no laceration to the lid. No focal neurological deficits upon examination. Plan to obtain CT head and facial bones for further evaluation in addition to serum labs and toxicology. He is tachycardic, I suspect there is likely a degree of dehydration due to his excessive alcohol consumption. However he refuses to have a peripheral IV placed so that he can receive IV fluids. Upon review of his chart he was discharged from this hospital 07/31/2023 for alcohol withdrawal syndrome was treated with phenobarbital protocol Differential Diagnosis Differential Diagnoses: The differential diagnosis associated with the presentation includes (ICH, SDH, orbital fracture, entrapment, alcohol intoxication) Admission/Observation Consideration of admission/observation: Escalation of care including admission/observation considered (See narrative above and course narrative for further detail) Lab Data MDM Lab Attestation statement: I reviewed the patient's lab results. (See course narrative) 08/03/23 17:41 08/03/23 17:41 Labs: Lab Results 08/03/23 08/03/23 Range/Units 17:41 19:32 WBC 7.7 (4.8-10.8) X10*3/uL RBC 6.07 H (4.60-5.80) X10*6/uL Hgb 17.0 (14.0-18.0) g/dl Hct 48.7 (42.0-52.0) % MCV 80.2 (80.0-98.0) fL MCH 28.0 (27.0-33.0) pg MCHC 34.9 (31.0-36.0) g/dl RDW 14.6 (11.0-16.0) % Plt Count 284 D (160-400) X10*3/uL MPV 9.6 (9.4-12.4) fL Immature Gran % (Auto) 0.9 H (0.0-0.4) % Neut % (Auto) 68.1 (45-73) % Lymph % (Auto) 22.2 (20-40) % Alfalfa % (Auto) 8.0 (2-11) % Eos % (Auto) 0.0 (0-4) % Baso % (Auto) 0.8 (0-2) % Lymph # (Auto) 1.7 (1.2-4.9) X10*3/uL Alfalfa # (Auto) 0.6 (0.1-1.2) X10*3/uL Eos # (Auto) 0.0 (0.0-0.4) X10*3/uL Baso # (Auto) 0.1 (0.0-0.2) X10*3/uL Abs Immat Gran (auto) 0.07 H (0.00-0.03) X10*3/uL Absolute Neuts (auto) 5.3 (2.0-8.3) x10*3/uL Absolute Nucleated RBC 0.000 (0.0-0.012) X10*3/uL Nucleated RBC % (auto) 0.0 (0.0-0.2) /100WBC Sodium 139 (135-145) mmol/L Potassium 3.8 (3.3-5.1) mmol/L Chloride 100 (96-108) mmol/L Carbon Dioxide 19 L (22-29) mmol/L Anion Gap 24 H (12-20) BUN 14 (9-16) mg/dL Creatinine 0.84 (0.5-1.4) mg/dL Estim Creat Clear Calc 116.4 Estimated GFR > 60 Random Glucose 82 (60-115) mg/dL Calcium 8.8 D (8.4-10.2) mg/dL Magnesium 2.3 (1.6-2.6) mg/dL Total Bilirubin 0.3 (0.0-1.0) mg/dL AST 39 H (5-37) U/L ALT 43 H (0-40) U/L Alkaline Phosphatase 77 (39-117) U/L Total Protein 8.8 H (6.5-8.0) g/dL Albumin 4.9 (3.5-5.0) g/dL Lipase 22 (8-78) U/L Urine Color Yellow Urine Appearance Clear Urine pH 5.5 (5.0-9.0) Ur Specific [place] 1.020 (1.005-1.025) Urine Protein 300 (3+) H (Neg-Trace) mg/dL Urine Glucose (UA) Negative (Negative) mg/dL Urine Ketones 40 (Negative) mg/dL Urine Blood Small (1+) H (Negative) Urine Nitrite Negative (Negative) Ur Leukocyte Esterase Negative (Negative) Urine RBC 0-2 (0-2) /HPF Urine WBC 0-5 (0-5) /HPF Ur Squamous Epith Cells 3-5 (0-2) /HPF Urine Bacteria None Seen (None Seen) Hyaline Casts >20 (0-2) /LPF Granular Casts Present Urine Opiates Screen Not Detected (Not Detect) Urine Fentanyl Screen Not Detected (Not Detect) Ur Barbiturates Screen POSITIVE H (Not Detect) Ur Phencyclidine Scrn Not Detected (Not Detect) Ur Amphetamines Screen Not Detected (Not Detect) U Benzodiazepines Scrn Not Detected (Not Detect) Urine Cocaine Screen Not Detected (Not Detect) U Marijuana (THC) Screen Not Detected (Not Detect) Ethyl Alcohol 380 H* mg/dL Independent Interpretation I performed an independent interpretation of an: CT Scan (No ICH, no fracture) Radiology Impression Discussion of test interpretation with radiology: I have reviewed the radiologist's reading. Radiologist Impression: CT/CT head/brain wo IV con IMPRESSION: 1. No acute intracranial abnormality including hemorrhage, mass effect, hydrocephalus, or acute territorial edematous infarction. 2. Maxillofacial CT is motion degraded which limits sensitivity for nondisplaced fracture. Within this limitation, no evidence of acute facial fracture. Independent Historian Clinical information obtained from an independent historian. History obtained from or confirmed by: EMS External Record Review External record reviewed: Inpatient record Medications Administered Discontinued Medications Generic Name Dose Route Start Last Admin Trade Name Freq PRN Reason Stop Dose Admin Lorazepam 2 mg 08/03/23 19:31 08/03/23 19:36 Lorazepam 1 Mg Tablet PO 08/03/23 19:32 2 mg ONCE ONE Administration Lorazepam 2 mg 08/04/23 00:20 08/04/23 00:24 Lorazepam 1 Mg Tablet PO 08/04/23 00:21 2 mg ONCE STA Administration Ondansetron HCl 4 mg 08/03/23 19:31 08/03/23 19:36 Ondansetron Odt 4 Mg Tab.Rapdis TRANSLINGU 08/03/23 19:32 4 mg ONCE ONE Administration Critical Care Time Critical Care Time Critical Care Time: Yes Total Critical Care Time: 50 Attestation: I personally attest to this critical care time spent taking care of the patient exclusive of all other billable procedures was approximately 50 minutes including initial evaluation of patient, ordering tests, CT interpretation, EKG interpretation, medical consultation, documentation, re-evaluation. Discharge Plan Discharge Clinical Impression: Alcohol use disorder, severe, dependence Patient Disposition: Still a Patient Additional Instructions: Follow-up with addiction medicine as scheduled. Return back to emergency department with any new or worsening symptoms or concerns. Prescriptions: No Action acamprosate 333 mg tablet,delayed release (DR/EC) 666 mg PO TID Qty: 180 0RF fluoxetine 40 mg capsule 40 mg PO DAILY Qty: 30 0RF trazodone 50 mg tablet 50 mg PO BEDTIME Qty: 30 0RF buspirone 30 mg tablet 30 mg PO BID Eliquis 5 mg Tablet 5 mg PO BID Qty: 60 3RF omeprazole 20 mg Capsule,Delayed Release(Dr/Ec) 20 mg PO DAILY melatonin 10 mg Tablet 10 mg PO BEDTIME
[2023-08-03 17:31] VITALS: BP 150/100; PULSE 130; BMI 26.1
[2023-08-03 17:34] VITALS: BP 138/83; PULSE 120; RESP 19; TEMP 37.1; O2SAT 94
[2023-08-03 17:46] LABS: MANUAL DIFF FLAG NO
[2023-08-03 18:06] LABS: Alanine Aminotransferase 43 U/L (0-40); Albumin Level 4.9 g/dL (3.5-5.0); Alkaline Phosphatase 77 U/L (39-117); Anion Gap 24 (12-20); Aspartate Amino Transferase 39 U/L (5-37); Bilirubin Total 0.3 mg/dL (0.0-1.0); Blood Urea Nitrogen 14 mg/dL (9-16); Calcium 8.8 mg/dL (8.4-10.2); Carbon Dioxide 19 mmol/L (22-29); Chloride 100 mmol/L (96-108); Creatinine Clr Calc Pharmacy 116.4; Estimated Glomerular Filt Rate > 60; Ethanol 380 mg/dL; Glucose Random 82 mg/dL (60-115); Lipase 22 U/L (8-78); Magnesium 2.3 mg/dL (1.6-2.6); Potassium 3.8 mmol/L (3.3-5.1); Sodium 139 mmol/L (135-145); Total Protein 8.8 g/dL (6.5-8.0)
[2023-08-03 18:10] LABS: Basophils Absolute Auto 0.1 X10*3/uL (0.0-0.2); Basophils Percent Auto 0.8 % (0-2); Hematocrit 48.7 % (42.0-52.0); Imm Gran Abs Auto 0.07 X10*3/uL (0.00-0.03); Imm Gran Pct Auto 0.9 % (0.0-0.4); Lymphocytes Absolute Auto 1.7 X10*3/uL (1.2-4.9); Lymphocytes Percent Auto 22.2 % (20-40); Mean Corpuscular HGB Conc 34.9 g/dl (31.0-36.0); Mean Corpuscular Volume 80.2 fL (80.0-98.0); Mean Platelet Volume 9.6 fL (9.4-12.4); Monocytes Absolute Auto 0.6 X10*3/uL (0.1-1.2); Neutrophils Absolute Auto 5.3 x10*3/uL (2.0-8.3); Neutrophils Percent Auto 68.1 % (45-73); Platelet Count 284 X10*3/uL (160-400); Red Blood Count 6.07 X10*6/uL (4.60-5.80); Red Cell Distribution Width 14.6 % (11.0-16.0); White Blood Count 7.7 X10*3/uL (4.8-10.8)
[2023-08-03 19:25] VITALS: BP 163/108; PULSE 144; RESP 18; TEMP 36.1; O2SAT 99
[2023-08-03] MEDS: LORazepam 1 MG TABLET 2 MG PO (19:36)
[2023-08-03] MEDS: Ondansetron ODT 4 MG TAB.RAPDIS TRANSLINGU (19:36)
--- NOTE | 2023-08-03 19:39 | PC.NURSE ---
PT reporting w/d symptoms, see CIWA. Medicated per MAR. VSS. Plan of care on going.
[2023-08-03 19:41] LABS: Appearance Urine Clear; Color Urine Yellow; Glucose Urine UA Negative (Negative); Leukocyte Esterase Urine Negative (Negative); Nitrite Urine Negative (Negative); PH 5.5 (5.0-9.0); UMIC TRIGGER UACC YES; Urine Blood Small (1+) (Negative); Urine Ketones 40 mg/dL (Negative); Urine Protein 300 (3+) mg/dL (Neg-Trace)
[2023-08-03 19:47] LABS: Amphetamine Screen Urine Not Detected (Not Detect); Barbiturates, Urine POSITIVE (Not Detect); Benzodiazepines Screen Urine Not Detected (Not Detect); Cannabinoid Screen Urine Not Detected (Not Detect); Cocaine Screen Urine Not Detected (Not Detect); Fentanyl, urine Not Detected (Not Detect); Opiate Screen Urine Not Detected (Not Detect); Phencyclidine Screen Urine Not Detected (Not Detect)
[2023-08-03 19:54] LABS: Bacteria Urine None Seen (None Seen); Granular Casts Urine Present; Hyaline Casts Urine >20 /LPF (0-2); RBC Urine 0-2 /HPF (0-2); WBC Urine 0-5 /HPF (0-5)
[2023-08-03 23:17] VITALS: PULSE 77
[2023-08-03 23:31] VITALS: BP 139/62; PULSE 130; RESP 16; TEMP 37.1; O2SAT 93
[2023-08-04] MEDS: LORazepam 1 MG TABLET 2 MG PO ×4 (00:24→12:17)
--- NOTE | 2023-08-04 00:47 | PC.NURSE ---
Late entry; pt continues to report w/d sx, anxiety severe per his report but able to sit still and did request 2 sandwiches. MD made aware and 2mg Ativan ordered and given. PT now asleep, resp even and unlabored. VSS.
--- NOTE | 2023-08-04 00:52 | ECG_ITS ---
Test Reason : ETOH Blood Pressure : / mmHG Vent. Rate : 120 BPM Atrial Rate : 120 BPM P-R Int : 150 ms QRS Dur : 080 ms QT Int : 332 ms P-R-T Axes : 031 003 042 degrees QTc Int : 469 ms Sinus tachycardia Cannot rule out Anterior infarct , age undetermined Abnormal ECG When compared with ECG of 28-JUL-2023 07:58, No significant change was found Referred By: Cinda Quintana Electronically Signed By:Librado Chanel
[2023-08-04 03:16] VITALS: BP 162/93; PULSE 118; RESP 14; TEMP 37; O2SAT 94
[2023-08-04 06:12] VITALS: BP 147/108; PULSE 119; RESP 14; TEMP 37.4; O2SAT 97
[2023-08-04 09:05] VITALS: BP 149/83; PULSE 116; RESP 18; TEMP 37.3; O2SAT 95
--- NOTE | 2023-08-04 11:23 | PC.NURSE ---
assumed care of pt at 0700. pt a&ox4, calm, and cooperative. pt reporting anxiety, given ativan per mar. CIWA from 11 to 6. pt reports he feels comfortable going home. ambulates independently to bathroom with steady gait. speaking in full complete sentences. has black left eye. sts he does not remember what happened but thinks he fell when he was drunk. awaiting recovery team to meet with pt. rr even/unlabored. plan of care ongoing.
[2023-08-04 11:53] VITALS: BP 170/86; PULSE 136; RESP 18; TEMP 37.3; O2SAT 98
--- NOTE | 2023-08-04 11:53 | PC.NURSE ---
t/w went to discharge pt and take updated set of vital signs. pt pulse and BP elevated per worklist. pt palms sweaty and warm. GLENYS Grant notified and cancelled discharge. pt in x-ray.
[2023-08-04 12:03] VITALS: BP 147/91; PULSE 102; RESP 20; TEMP 36.7; O2SAT 94
[2023-08-04] MEDS: 0.9 % Sodium Chloride 1,000 ML 999 ML IV (12:13)
[2023-08-04] MEDS: Acetaminophen 325 MG TABLET 650 MG PO (12:17)
--- NOTE | 2023-08-04 12:38 | PC.NURSE ---
vital signs slightly improved with laying down.
[2023-08-04 13:18] LABS: Influenza A PCR NEGATIVE (Negative); Influenza B PCR NEGATIVE (Negative); Resp Syncy Virus RNA Qual PCR NEGATIVE (Negative); SARS COV2 PCR INHOUSE NEGATIVE (Negative)
[2023-08-04 14:45] VITALS: BP 141/96; PULSE 122; RESP 18; TEMP 36.7; O2SAT 97
== END 2023-08-04 15:19 | disposition home or self-care (01) ==
PROVIDERS: Nurse Practitioner Family; Physician Assistant Medical; Emergency Provider Emergency Medicine Emergency Medical Services
DX: F10.220 Alcohol dependence with intoxication, uncomplicated (principal); Y90.8 Blood alcohol level of 240 mg/100 ml or more; I10 Essential (primary) hypertension; Z11.52 Encounter for screening for COVID-19; Z20.828 Contact with and (suspected) exposure to other viral communicable diseases
CPT/HCPCS: 0241U; 36415; 70450; 70480; 70486; 71046; 80053; 80307; 81001; 83690; 83735; 85025; 93005; 96360; 99285

== ENCOUNTER → 2023-08-04 00:52 | Outpatient (BNV) | payer OTHER, SELFPAY | PROVIDERS: Emergency Provider Emergency Medicine Emergency Medical Services; Visit Provider Internal Medicine Cardiovascular Disease | DX: R00.0 Tachycardia, unspecified (principal) | CPT/HCPCS: 93010 ==

== ENCOUNTER 2023-08-06 04:02 | Emergency (ER) | payer OTHER, SELFPAY ==
[2023-08-06 04:09] VITALS: BP 150/90; BP 151/87; PULSE 104; PULSE 106; RESP 18; TEMP 36.6; O2SAT 96; O2SAT 99; BMI 25.3
[2023-08-06 04:37] LABS: MANUAL DIFF FLAG NO
[2023-08-06 04:39] LABS: Basophils Absolute Auto 0.1 X10*3/uL (0.0-0.2); Basophils Percent Auto 0.8 % (0-2); Eosinophils Percent Auto 0.3 % (0-4); Hematocrit 45.6 % (42.0-52.0); Hemoglobin 15.9 g/dl (14.0-18.0); Imm Gran Abs Auto 0.02 X10*3/uL (0.00-0.03); Imm Gran Pct Auto 0.3 % (0.0-0.4); Lymphocytes Absolute Auto 2.9 X10*3/uL (1.2-4.9); Lymphocytes Percent Auto 38.5 % (20-40); Mean Corpuscular HGB Conc 34.9 g/dl (31.0-36.0); Mean Corpuscular Hemoglobin 27.7 pg (27.0-33.0); Mean Corpuscular Volume 79.4 fL (80.0-98.0); Mean Platelet Volume 9.1 fL (9.4-12.4); Monocytes Absolute Auto 0.6 X10*3/uL (0.1-1.2); Monocytes Percent Auto 7.8 % (2-11); Neutrophils Percent Auto 52.3 % (45-73); Platelet Count 277 X10*3/uL (160-400); Red Blood Count 5.74 X10*6/uL (4.60-5.80); Red Cell Distribution Width 14.9 % (11.0-16.0); White Blood Count 7.6 X10*3/uL (4.8-10.8)
[2023-08-06 04:55] LABS: Alanine Aminotransferase 57 U/L (0-40); Albumin Level 4.9 g/dL (3.5-5.0); Alkaline Phosphatase 69 U/L (39-117); Anion Gap 19 (12-20); Aspartate Amino Transferase 58 U/L (5-37); Bilirubin Total 0.4 mg/dL (0.0-1.0); Blood Urea Nitrogen 9 mg/dL (9-16); Calcium 9.1 mg/dL (8.4-10.2); Carbon Dioxide 24 mmol/L (22-29); Chloride 101 mmol/L (96-108); Creatinine Clr Calc Pharmacy 137.8; Estimated Glomerular Filt Rate > 60; Ethanol 355 mg/dL; Glucose Random 107 mg/dL (60-115); Lipase 36 U/L (8-78); Magnesium 2.2 mg/dL (1.6-2.6); Potassium 3.3 mmol/L (3.3-5.1); Sodium 141 mmol/L (135-145); Total Protein 8.6 g/dL (6.5-8.0)
[2023-08-06] MEDS: chlordiazePOXIDE HCl 25 MG CAPSULE PO (05:09)
--- NOTE | 2023-08-06 05:09 | ED.ALCOHOL ---
HPI - Alcohol General Chief Complaint: ETOH/Substance Use Stated Complaint: ETOH Time Seen by Provider: 08/06/23 04:26 Source: patient Mode of arrival: EMS History of Present Illness HPI narrative: 37-year-old male who arrives via EMS, significantly intoxicated, declines placement in an inpatient alcohol detox facility, demanding medication currently, states that he has spoken to Nina Ramosn but it is taking too long for him to get on medication. He denies having any seizure activity when abstaining from alcohol. Related Data Home Medications Medication Instructions Recorded Confirmed buspirone 30 mg tablet 30 mg PO BID 09/27/22 07/28/23 melatonin 10 mg tablet 10 mg PO BEDTIME 02/10/23 07/28/23 omeprazole 20 mg capsule,delayed 20 mg PO DAILY 07/28/23 07/28/23 release Previous Rx's Medication Instructions Recorded apixaban 5 mg tablet (Eliquis) 5 mg PO BID #60 tabs 07/08/23 acamprosate 333 mg tablet,delayed 666 mg (2 x 333 mg) PO TID #180 07/09/23 release tabs fluoxetine 40 mg capsule 40 mg PO DAILY #30 caps 07/09/23 trazodone 50 mg tablet 50 mg PO BEDTIME #30 tabs 07/09/23 Allergies Allergy/AdvReac Type Severity Reaction Status Date / Time No Known Allergies Allergy Unknown UNKNOWN Verified 08/03/23 17:37 [NO KNOWN ALLERGIES] Review of Systems Review of Systems: Pertinent positives and negatives as stated in HPI PMFSH Past Medical History Source: nursing notes reviewed Medical History Deep vein thrombosis, upper right extremity Alcohol use disorder, severe, dependence Alcohol abuse Elevated LFTs Recurrent major depression-severe Alcohol withdrawal syndrome Hypertension Anxiety and depression Psychiatric disturbance Family History Family History Other Lung cancer Social History Social History Household Members: None Housing: House Do you presently have visiting nurse or other home services: No Alcohol intake: current Alcohol intake frequency: 3 or more drinks per day Alcohol type: hard liquor Comment: Declines Bed Alarm Patient Tobacco Use Status: Never used Tobacco Smoked in Last 30 Days: No e-Cigarette/Vaping Use: Never Used Second Hand Smoke Exposure: No Use of substances other than those prescribed or required for medical reasons: Yes Substance Use Type: Marijuana Substance Use Frequency: Chronic Longstanding Advance Directives: Yes Advance Directives on File: Yes Advance Directives Date on File: 01/08/21 service: No Current occupational status: unemployed Sexual orientation: Straight/Heterosexual Physical Exam ED Vital Signs: Vital Signs - 24 hr 08/06/23 04:09 Temperature 97.8 F Pulse Rate 104 H Respiratory Rate 18 Blood Pressure 151/87 H Pulse Oximetry 96 Oxygen Delivery Method Room Air BMI result Body Mass Index 25.3 VITAL SIGNS: Reviewed. GENERAL: Well developed, well nourished, in no acute distress. HEAD: Normocephalic/atraumatic EYES: PERRLA, EOMI EARS: Ext canals without abnormality NOSE: Nares patent bilateral OROPHARYNX: no oral lesions noted, posterior pharynx clear NECK: Supple, no adenopathy LUNGS: Normal breath sounds. No adventitious sounds or accessory muscle use. SpO2<96> CARDIOVASCULAR: Regular rate and rhythm without noted murmurs ABDOMEN: Soft, non-tender, non-distended with bowel sounds. MUSCULOSKELETAL: No tenderness, deformities, or effusions noted on gross inspection. EXTREMITIES: No cyanosis, clubbing or edema. SKIN: Inspection of the skin reveals no rashes NEUROLOGIC: Alert and oriented x 4. Strength and sensation to light touch were grossly intact x 4, tremulous, cranial nerves 2-12 grossly intact but somewhat off given current intoxicated state. Medical Decision Making Medical Decision Making MDM Narrative: 37-year-old male with history and clinical presentation of current significant alcohol intoxication and history of severe alcohol dependence. Patient does not appear to want any inpatient program at this time, he wants medication and denies any significant alcohol withdrawal symptoms previously such as seizures. CIWA-9 and patient provided with 25 mg of Librium. I reviewed all investigations and hematologic indices are negative for leukocytosis/left shift/anemia/thrombocytopenia. Chemistry indices negative for HERNANDEZ or electrolyte/liver enzyme derangements other than chronically elevated transaminases that are likely secondary to alcohol use. Lipase is within normal limits. ETOH-355. Viral testing negative for influenza/RSV/COVID. Patient is medically cleared for observation to clinical sobriety. Patient placed in physician observation because the patient needed more time for clinical sobriety. At the time observation was started the patient's vital signs were stable, patient is alert and oriented, neuro: Nonfocal, CV RRR, lungs clear Differential Diagnosis Differential Diagnoses: The differential diagnosis associated with the presentation includes Please see the discussion Admission/Observation Consideration of admission/observation: Escalation of care including admission/observation considered Please see the discussion above Lab Data MDM Lab Attestation statement: I reviewed the patient's lab results. Please see the discussion above 08/06/23 04:29 08/06/23 04:29 Labs: Lab Results 08/06/23 Range/Units 04:29 WBC 7.6 (4.8-10.8) X10*3/uL RBC 5.74 (4.60-5.80) X10*6/uL Hgb 15.9 (14.0-18.0) g/dl Hct 45.6 (42.0-52.0) % MCV 79.4 L (80.0-98.0) fL MCH 27.7 (27.0-33.0) pg MCHC 34.9 (31.0-36.0) g/dl RDW 14.9 (11.0-16.0) % Plt Count 277 (160-400) X10*3/uL MPV 9.1 L (9.4-12.4) fL Immature Gran % (Auto) 0.3 (0.0-0.4) % Neut % (Auto) 52.3 (45-73) % Lymph % (Auto) 38.5 (20-40) % [place] % (Auto) 7.8 (2-11) % Eos % (Auto) 0.3 (0-4) % Baso % (Auto) 0.8 (0-2) % Lymph # (Auto) 2.9 (1.2-4.9) X10*3/uL [place] # (Auto) 0.6 (0.1-1.2) X10*3/uL Eos # (Auto) 0.0 (0.0-0.4) X10*3/uL Baso # (Auto) 0.1 (0.0-0.2) X10*3/uL Abs Immat Gran (auto) 0.02 (0.00-0.03) X10*3/uL Absolute Neuts (auto) 4.0 (2.0-8.3) x10*3/uL Absolute Nucleated RBC 0.000 (0.0-0.012) X10*3/uL Nucleated RBC % (auto) 0.0 (0.0-0.2) /100WBC Sodium 141 (135-145) mmol/L Potassium 3.3 (3.3-5.1) mmol/L Chloride 101 (96-108) mmol/L Carbon Dioxide 24 (22-29) mmol/L Anion Gap 19 (12-20) BUN 9 (9-16) mg/dL Creatinine 0.71 (0.5-1.4) mg/dL Estim Creat Clear Calc 137.8 Estimated GFR > 60 Random Glucose 107 (60-115) mg/dL Calcium 9.1 (8.4-10.2) mg/dL Magnesium 2.2 (1.6-2.6) mg/dL Total Bilirubin 0.4 (0.0-1.0) mg/dL AST 58 H (5-37) U/L ALT 57 H (0-40) U/L Alkaline Phosphatase 69 (39-117) U/L Total Protein 8.6 H (6.5-8.0) g/dL Albumin 4.9 (3.5-5.0) g/dL Lipase 36 (8-78) U/L Ethyl Alcohol 355 H* mg/dL Influenza Type A (PCR) NEGATIVE (Negative) Influenza Type B (PCR) NEGATIVE (Negative) RSV RNA Qual (PCR) NEGATIVE (Negative) SARS-CoV-2 RNA (RT-PCR) NEGATIVE (Negative) External Record Review External record reviewed: Outpatient record and Prior outpatient labs Social Determinants Patient?s care significantly limited by Social Determinants of Health including: Alcoholism and drug addiction in family Medications Administered Discontinued Medications Generic Name Dose Route Start Last Admin Trade Name Freq PRN Reason Stop Dose Admin Chlordiazepoxide HCl 25 mg 08/06/23 05:02 08/06/23 05:09 Chlordiazepoxide Hcl 25 Mg Capsule PO 08/06/23 05:03 25 mg ONCE ONE Administration Critical Care Time Critical Care Time Critical Care Time: Yes Total Critical Care Time: 45 Attestation: I personally attest to this time spent taking care of the patient. Discharge Plan Discharge Clinical Impression: Alcoholic intoxication, Alcohol use disorder, severe, dependence Patient Disposition: Still a Patient Instructions: Alcohol Intoxication (ED), Abuse of Alcohol (ED) Prescriptions: No Action acamprosate 333 mg tablet,delayed release (DR/EC) 666 mg PO TID Qty: 180 0RF fluoxetine 40 mg capsule 40 mg PO DAILY Qty: 30 0RF trazodone 50 mg tablet 50 mg PO BEDTIME Qty: 30 0RF buspirone 30 mg tablet 30 mg PO BID Eliquis 5 mg Tablet 5 mg PO BID Qty: 60 3RF omeprazole 20 mg Capsule,Delayed Release(Dr/Ec) 20 mg PO DAILY melatonin 10 mg Tablet 10 mg PO BEDTIME
[2023-08-06 05:16] LABS: Influenza A PCR NEGATIVE (Negative); Influenza B PCR NEGATIVE (Negative); Resp Syncy Virus RNA Qual PCR NEGATIVE (Negative); SARS COV2 PCR INHOUSE NEGATIVE (Negative)
[2023-08-06] MEDS: chlordiazePOXIDE HCl 25 MG CAPSULE 50 MG PO ×3 (08:57→18:40)
[2023-08-06 09:00] VITALS: BP 108/80; PULSE 133; RESP 18; O2SAT 98
[2023-08-06 09:03] LABS: Appearance Urine Clear; Color Urine Yellow; Glucose Urine UA Negative (Negative); Leukocyte Esterase Urine Negative (Negative); Nitrite Urine Negative (Negative); PH 6.5 (5.0-9.0); Specific Gravity - Urine 1.015 (1.005-1.025); UMIC TRIGGER UACC YES; Urine Blood Negative (Negative); Urine Ketones Trace mg/dL (Negative); Urine Protein 100 (2+) mg/dL (Neg-Trace)
[2023-08-06 09:06] LABS: Bacteria Urine None Seen (None Seen); Hyaline Casts Urine 0-2 /LPF (0-2); RBC Urine 0-2 /HPF (0-2); Squamous Epithelial Cell Urine 0-2 /HPF (0-2); WBC Urine 0-5 /HPF (0-5)
[2023-08-06 09:17] LABS: Amphetamine Screen Urine Not Detected (Not Detect); Barbiturates, Urine POSITIVE (Not Detect); Benzodiazepines Screen Urine Not Detected (Not Detect); Cannabinoid Screen Urine Not Detected (Not Detect); Cocaine Screen Urine Not Detected (Not Detect); Fentanyl, urine Not Detected (Not Detect); Opiate Screen Urine Not Detected (Not Detect); Phencyclidine Screen Urine Not Detected (Not Detect)
--- NOTE | 2023-08-06 09:27 | PC.NURSE ---
ok per Dr. Diaz to give 50mg Librium and monitor effects - will wait on 100mg Librium at this time
[2023-08-06 10:10] VITALS: BP 130/81; PULSE 119; RESP 16; O2SAT 98
[2023-08-06 12:08] VITALS: BP 135/98; PULSE 115; RESP 18; TEMP 36.9; O2SAT 97
--- NOTE | 2023-08-06 13:56 | PC.NURSE ---
Pt has been accepted to [facility] for 1230 tomorrow 08/06. Father will pick him up in the am to transport him. Pt is aware of plan of care
[2023-08-06] MEDS: FLUoxetine HCl 20 MG CAPSULE 40 MG PO (15:13)
--- NOTE | 2023-08-06 15:18 | PC.NURSE ---
Pt approached this RN requesting something for withdrawal, patient reporting palpitations, nausea, sense of uneasiness. Pts HR found to be in 130s, he then began vomiting. Tor aware, medications being ordered at this time
[2023-08-06 15:20] VITALS: BP 142/94; PULSE 132; TEMP 36.9; O2SAT 99
[2023-08-06] MEDS: droPERidol 5 MG/2 ML VIAL 1.25 MG IM (15:28)
[2023-08-06] MEDS: PHENobarbitaL sodium 130 MG/ML IM ONCE 328.9 MG IM (15:57)
--- NOTE | 2023-08-06 19:09 | PC.NURSE ---
patient appears to remain at rest at present respirations are even and unlabored patient appears in no distress.
[2023-08-06 19:41] VITALS: BP 142/97; PULSE 110; RESP 20; TEMP 37.1; O2SAT 99
[2023-08-06] MEDS: PHENobarbitaL sodium 130 MG/ML VIAL IM Q3Hx2 247 MG IM ×2 (19:48→23:06)
[2023-08-06] MEDS: Acetaminophen 325 MG TABLET 650 MG PO (20:18)
[2023-08-06] MEDS: traZODone HCL 50 MG TABLET PO (20:18)
[2023-08-07 06:00] VITALS: RESP 18
[2023-08-07] MEDS: PHENobarbitaL 15 MG TABLET 45 MG PO (10:12)
[2023-08-07] MEDS: FLUoxetine HCl 20 MG CAPSULE 40 MG PO (10:12)
[2023-08-07 10:13] VITALS: BP 134/88; PULSE 80; RESP 16; TEMP 36.6; O2SAT 97
== END 2023-08-07 10:55 | disposition home or self-care (01) ==
PROVIDERS: Student in an Organized Health Care Education/Training Program; Emergency Provider Emergency Medicine
DX: F10.229 Alcohol dependence with intoxication, unspecified (principal); Y90.8 Blood alcohol level of 240 mg/100 ml or more; R60.0 Localized edema; Z11.52 Encounter for screening for COVID-19; Z20.822 Contact with and (suspected) exposure to COVID-19; Z79.01 Long term (current) use of anticoagulants; Z79.899 Other long term (current) drug therapy
CPT/HCPCS: 0241U; 80053; 80307; 81001; 83690; 83735; 85025; 99285; J1790; J2560

== ENCOUNTER 2023-08-09 19:48 | Emergency (ER) | payer OTHER, SELFPAY ==
--- NOTE | ~2023-08-09 | CT_ITS ---
EXAMINATION: CT HEAD WITHOUT CONTRAST CT FACIAL BONES WITHOUT CONTRAST CT CERVICAL SPINE WITHOUT CONTRAST CLINICAL INFORMATION: Fall. EtOH. Altered mental status. COMPARISON: CT head and facial bones from 08/03/2023. TECHNIQUE: Imaging was performed from the skull base to vertex without intravenous administration of contrast. In addition, helical noncontrast CT imaging was acquired through the cervical spine and facial bones and source images were reviewed along with axial reconstructions and sagittal and coronal MPRs. This CT examination was performed using dose optimization techniques as appropriate, variously including the following: *Automated exposure control. *Adjustment of mA and/or kV according to patient size (this includes techniques or standardized protocols for targeted exams where dose is matched to indication/reason for exam; i.e. extremities or head). *Use of iterative reconstruction technique. DLP: 1736 mGy-cm FINDINGS: Head: There is no evidence of acute intracranial hemorrhage or edematous territorial infarction. Cardoza-white matter differentiation is preserved. There is no abnormal attenuation within the brain parenchyma. The ventricles are normal in morphology and size. No evidence for obstructive hydrocephalus. No abnormal mass effect or midline shift. No extra-axial fluid collections. Mild soft tissue edema along the right lateral skull. No associated acute osseous abnormalities. Maxillofacial Bones: No evidence of maxillofacial bone fractures. The zygomatic arches remain intact. No nasal bone fracture. The nasal septum remains midline. No evidence of mandibular or maxillary fracture. The mandibular condyles remain well-seated in their respective temporal articular grooves. Normal appearance of the intraconal and extraconal fat. No evidence of traumatic injury to the extraocular musculature or globes. The mastoid air cells and visualized paranasal sinuses are clear. No layering fluid collections. Mild edema along the right aspect of the mandible. No discrete drainable fluid collection. Cervical Spine: The atlantooccipital and atlantoaxial articulations remain well aligned. Straightening of the normal cervical lordosis. Otherwise, there is anatomic alignment of the vertebral bodies and posterior elements. No evidence of acute fracture or subluxation. The vertebral body heights and disc spaces are maintained. There is no prevertebral soft tissue swelling. The thyroid gland and remaining cervical soft tissues are within normal limits. The lung apices demonstrate no abnormalities. CT/CT cervical spine wo IV con IMPRESSION: 1. No evidence of acute intracranial hemorrhage or edematous territorial infarction. 2. No evidence of acute fracture or traumatic subluxation of the cervical spine. 3. No evidence of acute fracture of the maxillofacial bones. 4. Mild soft tissue edema/hematoma along the left lateral skull and right aspect of the mandible.
[2023-08-09 20:01] VITALS: BP 140/80; PULSE 90
[2023-08-09 20:16] VITALS: BP 132/89; PULSE 96; RESP 16; TEMP 37; O2SAT 99; BMI 27.3
--- NOTE | 2023-08-09 20:49 | PC.NURSE ---
Provider with pt. Scan ordered. Plan of care ongoing.
--- NOTE | 2023-08-09 21:03 | ED.ALCOHOL ---
HPI - Alcohol General Chief Complaint: ETOH/Substance Use Stated Complaint: Unresponsive ETOH, responds to sternal rub, stable Time Seen by Provider: 08/09/23 20:41 Source: EMS Mode of arrival: EMS Limitations: altered mental status History of Present Illness HPI narrative: Patient comes to the emergency room via ambulance. Seems that patient was found at home, unclear who. Patient was unresponsive, patient known to drink large amount of alcohol. When EMS arrived, patient wakes up and then falls back asleep. Per EMS, they are very familiar with this patient, yesterday took him to [facility] for ETOH and was discharged this morning. At this time, patient is too intoxicated to give any history. MD complaint: alcohol intoxication Related Data Previous Rx's Medication Instructions Recorded apixaban 5 mg tablet (Eliquis) 5 mg PO BID #60 tabs 07/08/23 acamprosate 333 mg tablet,delayed 666 mg (2 x 333 mg) PO TID #180 07/09/23 release tabs fluoxetine 40 mg capsule 40 mg PO DAILY #30 caps 07/09/23 trazodone 50 mg tablet 50 mg PO BEDTIME #30 tabs 07/09/23 Allergies Allergy/AdvReac Type Severity Reaction Status Date / Time No Known Allergies Allergy Unknown UNKNOWN Verified 08/03/23 17:37 [NO KNOWN ALLERGIES] Review of Systems Review of Systems: Yes Other (Too intoxicated) [facility] Past Medical History Medical History Deep vein thrombosis, upper right extremity Alcohol use disorder, severe, dependence Alcohol abuse Elevated LFTs Recurrent major depression-severe Alcohol withdrawal syndrome Hypertension Anxiety and depression Psychiatric disturbance Family History Family History Other Lung cancer Social History Social History Household Members: None Housing: House Do you presently have visiting nurse or other home services: No Alcohol intake: current Alcohol intake frequency: 3 or more drinks per day Alcohol type: hard liquor Comment: Declines Bed Alarm Patient Tobacco Use Status: Never used Tobacco e-Cigarette/Vaping Use: Never Used Second Hand Smoke Exposure: No Substance Use Type: Marijuana Advance Directives: Yes Advance Directives on File: Yes Advance Directives Date on File: 01/08/21 service: No Current occupational status: unemployed Sexual orientation: Straight/Heterosexual Physical Exam ED Vital Signs: Vital Signs - 24 hr 08/09/23 20:16 08/09/23 22:19 Temperature 98.6 F 97.7 F Pulse Rate 96 100 Respiratory Rate 16 16 Blood Pressure 132/89 152/93 H Pulse Oximetry 99 97 Oxygen Delivery Method Room Air Room Air BMI result Body Mass Index 27.3 Const Other: Appearance: Intoxicated, sleeping, wakes up to his name and falls right back asleep Eyes: Pupils equal, round and reactive to light. ENT: Pharynx normal. Neck: Normal inspection. Neck supple. No lymph nodes noted. No crepitus CVS: Normal heart rate and rhythm. Pulses normal. Normal S1 and S2 Respiratory: No respiratory distress. Breath sounds normal. No Wheezing. No rales Abdomen: Soft and nontender. No rigidity. No distention. Skin: Patient ecchymosis at various stages of healing. Extremities: No lower extremity edema. No Lacerations. No Rash Neuro: Intoxicated Psych: Intoxicated Medical Decision Making Medical Decision Making MDM Narrative: -my interpretation of CT scan of head and cervical spine: No obvious abnormality. -plan: Metabolize to freedom -physician observation started at 23:22 -at this time, 01:20, patient is awake, alert and oriented x3, denies SI or HI. Patient states that he would like to go to detox. Patient has no signs or symptoms of alcohol withdrawal -labs have been ordered. -patient was given 2 mg of p.o. lorazepam. -care team consult pending Differential Diagnosis Differential Diagnoses: The differential diagnosis associated with the presentation includes (Alcohol dependence, alcohol intoxication, polysubstance abuse, depression) Admission/Observation Consideration of admission/observation: Escalation of care including admission/observation considered (Patient will remain under physician observation, waiting for the care team to determine patient's disposition, patient requesting detox) Independent Interpretation I performed an independent interpretation of an: CT Scan Radiology Impression Discussion of test interpretation with radiology: I have reviewed the radiologist's reading. Radiologist Impression: 1. No evidence of acute intracranial hemorrhage or edematous territorial infarction. 2. No evidence of acute fracture or traumatic subluxation of the cervical spine. 3. No evidence of acute fracture of the maxillofacial bones. 4. Mild soft tissue edema/hematoma along the left lateral skull and right aspect of the mandible. Critical Care Time Critical Care Time Critical Care Time: Yes Total Critical Care Time: 45 Attestation: I have personally provided critical care time. Time includes review of lab data, radiology results, discussion with consultants, and monitoring for potential decompensation. Intervention performed as documented. Discharge Plan Discharge Clinical Impression: Alcohol intoxication Patient Disposition: Still a Patient Prescriptions: No Action acamprosate 333 mg tablet,delayed release (DR/EC) 666 mg PO TID Qty: 180 0RF fluoxetine 40 mg capsule 40 mg PO DAILY Qty: 30 0RF trazodone 50 mg tablet 50 mg PO BEDTIME Qty: 30 0RF Eliquis 5 mg Tablet 5 mg PO BID Qty: 60 3RF
--- NOTE | 2023-08-09 22:16 | PC.NURSE ---
Pt requested and given food and drink. Pt continuously attempting to get out of bed, redirected back into bed. Plan of care ongoing.
[2023-08-09 22:19] VITALS: BP 152/93; PULSE 100; RESP 16; TEMP 36.5; O2SAT 97
[2023-08-10] MEDS: LORazepam 1 MG TABLET 2 MG PO (01:30)
--- NOTE | 2023-08-10 01:34 | PC.NURSE ---
Pt medicated per jul. Pt given urinal. Pt requested and given ice water. Plan of care ongoing.
[2023-08-10 01:41] VITALS: BP 131/83; PULSE 107; RESP 15; TEMP 36.4; O2SAT 96
[2023-08-10 01:57] LABS: MANUAL DIFF FLAG NO
[2023-08-10 01:58] LABS: Basophils Percent Auto 0.8 % (0-2); Eosinophils Percent Auto 0.6 % (0-4); Hematocrit 39.9 % (42.0-52.0); Hemoglobin 13.6 g/dl (14.0-18.0); Imm Gran Abs Auto 0.01 X10*3/uL (0.00-0.03); Imm Gran Pct Auto 0.2 % (0.0-0.4); Lymphocytes Absolute Auto 1.7 X10*3/uL (1.2-4.9); Lymphocytes Percent Auto 32.9 % (20-40); Mean Corpuscular HGB Conc 34.1 g/dl (31.0-36.0); Mean Corpuscular Hemoglobin 27.7 pg (27.0-33.0); Mean Corpuscular Volume 81.3 fL (80.0-98.0); Mean Platelet Volume 8.8 fL (9.4-12.4); Monocytes Absolute Auto 0.5 X10*3/uL (0.1-1.2); Monocytes Percent Auto 9.8 % (2-11); Neutrophils Absolute Auto 2.9 x10*3/uL (2.0-8.3); Neutrophils Percent Auto 55.7 % (45-73); Platelet Count 223 X10*3/uL (160-400); Red Blood Count 4.91 X10*6/uL (4.60-5.80); Red Cell Distribution Width 14.9 % (11.0-16.0); White Blood Count 5.1 X10*3/uL (4.8-10.8)
[2023-08-10 02:05] LABS: INTERNATIONAL NORM RATIO 0.9 (0.9-1.1); Prothrombin Time 10.8 SEC (11.1-13.3)
[2023-08-10 02:09] LABS: Amphetamine Screen Urine Not Detected (Not Detect); Barbiturates, Urine POSITIVE (Not Detect); Benzodiazepines Screen Urine POSITIVE (Not Detect); Cannabinoid Screen Urine Not Detected (Not Detect); Cocaine Screen Urine Not Detected (Not Detect); Fentanyl, urine Not Detected (Not Detect); Opiate Screen Urine Not Detected (Not Detect); Phencyclidine Screen Urine Not Detected (Not Detect)
[2023-08-10 02:13] LABS: Alanine Aminotransferase 60 U/L (0-40); Albumin Level 4.3 g/dL (3.5-5.0); Alkaline Phosphatase 61 U/L (39-117); Anion Gap 19 (12-20); Aspartate Amino Transferase 52 U/L (5-37); Bilirubin Direct 0.1 mg/dL (0.0-0.5); Bilirubin Total 0.3 mg/dL (0.0-1.0); Blood Urea Nitrogen 10 mg/dL (9-16); Carbon Dioxide 25 mmol/L (22-29); Chloride 102 mmol/L (96-108); Creatinine Clr Calc Pharmacy 123.3; Estimated Glomerular Filt Rate > 60; Ethanol 255 mg/dL; Glucose Random 139 mg/dL (60-115); Potassium 3.3 mmol/L (3.3-5.1); Sodium 143 mmol/L (135-145); Total Protein 7.4 g/dL (6.5-8.0)
[2023-08-10 06:35] VITALS: BP 117/76; PULSE 98; RESP 16; O2SAT 95
[2023-08-10 08:11] VITALS: BP 122/85; PULSE 110; PULSE 113; RESP 16; TEMP 36.4; O2SAT 96
--- NOTE | 2023-08-10 08:14 | PC.NURSE ---
a&ox4. vss and up to date aside from being sinus tachy on the ekg monitor tech. updated CIWA = 12. pt verbalizing feeling extremely anxious - requesting medication to help w/ sx. will notify provider. pt also verbalizing 9/10 lower back pain d/t when he fell while intoxicated. pt verbalizes he still remains interested in detox at this time. no sob/wob noted. respirations even and unlabored. plan of care ongoing. call jack placed within reach.
[2023-08-10] MEDS: LORazepam 2 MG/ML VIAL IVPUSH (08:35)
--- NOTE | 2023-08-10 08:39 | PC.NURSE ---
pt medicated per provider order. effectiveness pending.
[2023-08-10] MEDS: chlordiazePOXIDE HCl 25 MG CAPSULE 50 MG PO ×2 (09:12→11:59)
--- NOTE | 2023-08-10 09:13 | PC.NURSE ---
pt verbalizes feeling less anxious post ativan administration. pt still remains sinus tachy on the cardiac rehabilitation specialist. pt medicated per provider order. pt continues to wait for addiction medicine consult at this time. plan of care ongoing. call jack placed within reach.
[2023-08-10 11:31] VITALS: BP 146/87; PULSE 110; RESP 18; O2SAT 98
--- NOTE | 2023-08-10 12:00 | PC.NURSE ---
medication administered per provider order.
--- NOTE | 2023-08-10 12:15 | MHC.RECOVRN ---
Met with pt multiple times this morning. Pt presented to the ED after alcohol use, requesting [facility]. Pt completed phone screen with facility. T/w was asked to send updated paperwork and to verify pt would be transported directly from [facility]. While sending updated paperwork, pts father called and informed t/w he filed a [employer] this morning. [employer] called shortly after and informed t/w they were on their way to transport patient. T/w spoke with pts father, Duncan ([phone]) and informed him [facility] was accepting patient and if 35 is not granted, to follow up with facility. Father denies questions or concerns at this time. Discussed with RN and provider.
--- NOTE | 2023-08-10 12:23 | PC.NURSE ---
pt left in [employer] custody d/t pt's father placing a section 35. pt calm/cooperative w/ C staff as well as [employer].
== END 2023-08-10 12:26 ==
PROVIDERS: Emergency Provider Emergency Medicine
DX: R40.4 Transient alteration of awareness (principal); F10.129 Alcohol abuse with intoxication, unspecified; Y90.8 Blood alcohol level of 240 mg/100 ml or more; R51.9 Headache, unspecified; M54.2 Cervicalgia; Z71.41 Alcohol abuse counseling and surveillance of alcoholic; Z79.899 Other long term (current) drug therapy
CPT/HCPCS: 36415; 70450; 70486; 72125; 80048; 80076; 80307; 83735; 85025; 85610; 99284; 99285; J2060

== ENCOUNTER 2023-08-17 08:22 | Outpatient (REF) | payer OTHER, SELFPAY ==
--- NOTE | ~2023-08-17 | US_ITS ---
EXAMINATION: US VENOUS WITH DOPPLER UPPER EXTREMITY, RIGHT CLINICAL INFORMATION: Assess response to therapy. Follow-up of DVT COMPARISON: Right upper extremity DVT study 05/31/2023 TECHNIQUE: Ultrasound of the upper extremity is performed using compression sonography and color and pulse Doppler flow with assessment of augmentation of flow. There is also imaging and Doppler assessment of the jugular and subclavian veins. Spectral analysis with color-flow imaging is performed. FINDINGS: The previously seen deep venous thrombus in the brachial vein has resolved and is no longer present. There continues to be some noncompressible thrombus in the mid and upper cephalic vein, a superficial vein. The previously seen cephalic vein near the elbow as well as the median cubital vein which had contained thrombus now appears unremarkable. US/US venous duplex UE RT IMPRESSION: Resolved DVT right upper extremity. Some chronic thrombus persists in the superficial described above
== END 2023-08-17 08:23 | disposition home or self-care (01) ==
LOC: HO.US 08:22
PROVIDERS: PCP Family Medicine; Visit Provider Internal Medicine
DX: I82.621 Acute embolism and thrombosis of deep veins of right upper extremity (principal)
CPT/HCPCS: 93971

== ENCOUNTER 2023-09-02 10:58 | Inpatient (IN) | payer OTHER, SELFPAY ==
[2023-09-02] VITALS (8 sets, daily range): BP systolic 123–155; BP diastolic 64–100; PULSE 85–115; RESP 14–19; TEMP 36.6–37.1; O2SAT 94–100; BMI 26.8
--- NOTE | ~2023-09-02 | XR_ITS ---
EXAMINATION: XR LUMBOSACRAL SPINE CLINICAL INFORMATION: Back pain COMPARISON: None available. TECHNIQUE: Three views of the lumbosacral spine. FINDINGS: The vertebral bodies and posterior elements are normal. The disc spaces are preserved and the vertebral alignment is normal. The paraspinal soft tissues are normal. XR/XR lumbar spine 2-3V IMPRESSION: Unremarkable examination.
--- NOTE | ~2023-09-02 | CT_ITS ---
EXAMINATION: CT HEAD WITHOUT CONTRAST CLINICAL INFORMATION: Head trauma COMPARISON: 08/09/2023 TECHNIQUE: Contiguous axial imaging was performed from the skull base to vertex without intravenous administration of contrast. This CT examination was performed using dose optimization techniques as appropriate, variously including the following: *Automated exposure control *Adjustment of mA and/or kV according to patient size (this includes techniques or standardized protocols for targeted exams where dose is matched to indication/reason for exam; i.e. extremities or head) *Use of iterative reconstruction technique DLP: 642 mGy-cm FINDINGS: The brain parenchyma has normal attenuation. The polo-white matter differentiation is well preserved. No evidence of an acute major vascular territory infarction. No intracranial hemorrhage, extra-axial fluid collection, focal mass effect or midline shift. The ventricles have normal size and configuration; no hydrocephalus. The brainstem and cerebellum have a normal appearance. The cerebellar tonsils are in normal position. The calvarium is intact. Minimal mucosal thickening of inferior frontal sinuses. Otherwise, the visualized paranasal sinuses, mastoid air cells and middle ear cavities are well aerated without air-fluid levels. The orbits and globes are unremarkable. The temporomandibular joints are normal. CT/CT head/brain wo IV con IMPRESSION: No intracranial hemorrhage or other acute intracranial pathology.
--- NOTE | 2023-09-02 11:08 | ED_ITS ---
HPI - Alcohol General Chief Complaint: ETOH/Substance Use Stated Complaint: ETOH INTOX/VODKA X9 DAYS PER EMS Time Seen by Provider: 09/02/23 11:05 Source: patient and EMS Mode of arrival: EMS Limitations: no limitations History of Present Illness HPI narrative: Patient just left detox 1 week ago and started to drink again, in addition patient fell a few times at home over the week and hit his face complaint: alcohol intoxication and alcohol withdrawal Associated symptoms: nausea and vomiting Related Data Previous Rx's Medication Instructions Recorded apixaban 5 mg tablet (Eliquis) 5 mg PO BID #60 tabs 07/08/23 acamprosate 333 mg tablet,delayed 666 mg (2 x 333 mg) PO TID #180 07/09/23 release tabs fluoxetine 40 mg capsule 40 mg PO DAILY #30 caps 07/09/23 trazodone 50 mg tablet 50 mg PO BEDTIME #30 tabs 07/09/23 Allergies Allergy/AdvReac Type Severity Reaction Status Date / Time No Known Allergies Allergy Unknown UNKNOWN Verified 08/03/23 17:37 [NO KNOWN ALLERGIES] Review of Systems 2 Review of Systems: Yes all other systems are reviewed and are negative Neurologic: Denies Sensory deficit (Neuro) [facility] Past Medical History Medical History Deep vein thrombosis, upper right extremity Alcohol use disorder, severe, dependence Alcohol abuse Elevated LFTs Recurrent major depression-severe Alcohol withdrawal syndrome Hypertension Anxiety and depression Psychiatric disturbance Family History Family History Other Lung cancer Social History Social History Household Members: None Housing: House Do you presently have visiting nurse or other home services: No Alcohol intake: current Alcohol intake frequency: 3 or more drinks per day Alcohol type: hard liquor Comment: Declines Bed Alarm Patient Tobacco Use Status: Never used Tobacco e-Cigarette/Vaping Use: Never Used Second Hand Smoke Exposure: No Use of substances other than those prescribed or required for medical reasons: No Substance Use Type: Marijuana Advance Directives: Yes Advance Directives on File: Yes Advance Directives Date on File: 01/08/21 service: No Current occupational status: unemployed Sexual orientation: Straight/Heterosexual Physical Exam ED Vital Signs: Vital Signs - 24 hr 09/02/23 11:18 09/02/23 11:52 09/02/23 13:23 Temperature 98.3 F Pulse Rate 102 H 97 115 H Respiratory Rate 18 14 14 Blood Pressure 123/83 126/64 145/91 H Pulse Oximetry 98 97 Oxygen Delivery Method Room Air Room Air BMI result Body Mass Index 26.8 Const Other: Male looking older than stated age, very tremulous, right periorbital ecchymosis Nutritional Appearance: average body habitus Orientation/consciousness: oriented to person and patient oriented x3 Limitations: no limitations HENMT Head: Yes normal to inspection Ears: external ears normal General nose exam: Normal external nose present Mouth: Normal oral and palatal mucosa present and oropharynx normal Throat: Yes posterior oropharynx normal Eyes Other: right periorbital ecchymosis Neck Neck: Yes normal visual inspection Chest Chest palpation & inspection: normal inspection of the chest Resp Auscultation: clear to auscultation bilaterally Cardio Jugular venous distension: no JVD Rate: regular rate Rhythm: regular rhythm Heart sounds: S1 normal heart sound present and S2 normal heart sound present GI Inspection: Yes normal to inspection Palpation (GI): Soft to palpation, nontender and No hepatosplenomegaly present Auscultation: normal bowel sounds General: Yes no CVA tenderness Back/Spine/Pelvis Back: no CVA tenderness Skin General skin exam: no rashes or lesions noted Neuro Other: very tremulous General: oriented to person and patient oriented x3 Cranial nerves: Yes CN's II-XII intact bilaterally Motor exam (neuro): 5/5 motor strength present throughout Sensory Exam: No Sensory deficit (Neuro) Extrem General: Yes normal to inspection Psych Appearance: grossly normal Course Reevaluation(s) Reevaluation #1: patient with 2 rounds of IV phenobarbital, now resting will switch to IM protocol and admit Time: 14:23 Reevaluation #2: I spent 40 minutes of critical care, with interventions, assessments, speaking to patient, consultants, and family. Time: 14:23 Medical Decision Making Differential Diagnosis Differential Diagnoses: The differential diagnosis associated with the presentation includes (subdural hematoma, epidural hematoma, alcohol withdrawal, alcohol dependency) Admission/Observation Consideration of admission/observation: Escalation of care including admission/observation considered (Upon arrival patient considered for admission) Consult Healthcare Provider Management of the patient was discussed with: Hospitalist and Behavioral Health Provider Lab Data 09/02/23 11:21 09/02/23 11:21 Labs: Lab Results 09/02/23 Range/Units 11:21 WBC 5.9 (4.8-10.8) X10*3/uL RBC 4.99 (4.60-5.80) X10*6/uL Hgb 14.3 (14.0-18.0) g/dl Hct 41.4 L (42.0-52.0) % MCV 83.0 (80.0-98.0) fL MCH 28.7 (27.0-33.0) pg MCHC 34.5 (31.0-36.0) g/dl RDW 15.3 (11.0-16.0) % Plt Count 181 (160-400) X10*3/uL MPV 9.5 (9.4-12.4) fL Immature Gran % (Auto) 0.3 (0.0-0.4) % Neut % (Auto) 62.0 (45-73) % Lymph % (Auto) 29.8 (20-40) % [place] % (Auto) 6.5 (2-11) % Eos % (Auto) 0.5 (0-4) % Baso % (Auto) 0.9 (0-2) % Lymph # (Auto) 1.8 (1.2-4.9) X10*3/uL [place] # (Auto) 0.4 (0.1-1.2) X10*3/uL Eos # (Auto) 0.0 (0.0-0.4) X10*3/uL Baso # (Auto) 0.1 (0.0-0.2) X10*3/uL Abs Immat Gran (auto) 0.02 (0.00-0.03) X10*3/uL Absolute Neuts (auto) 3.7 (2.0-8.3) x10*3/uL Absolute Nucleated RBC 0.000 (0.0-0.012) X10*3/uL Nucleated RBC % (auto) 0.0 (0.0-0.2) /100WBC Sodium 138 (135-145) mmol/L Potassium 3.7 (3.3-5.1) mmol/L Chloride 97 (96-108) mmol/L Carbon Dioxide 27 (22-29) mmol/L Anion Gap 18 (12-20) BUN 10 (9-16) mg/dL Creatinine 0.82 (0.5-1.4) mg/dL Estim Creat Clear Calc 119.3 Estimated GFR > 60 Random Glucose 120 H (60-115) mg/dL Calcium 9.1 (8.4-10.2) mg/dL Magnesium 1.9 (1.6-2.6) mg/dL Total Bilirubin 0.3 (0.0-1.0) mg/dL AST 54 H (5-37) U/L ALT 52 H (0-40) U/L Alkaline Phosphatase 77 (39-117) U/L Total Protein 8.2 H (6.5-8.0) g/dL Albumin 4.5 (3.5-5.0) g/dL Lipase 26 (8-78) U/L Independent Interpretation I performed an independent interpretation of an: CT Scan (no hemorrhage) Radiology Impression Discussion of test interpretation with radiology: I have reviewed the radiologist's reading. Independent Historian Clinical information obtained from an independent historian. History obtained from or confirmed by: EMS Chronic Conditions Patient?s care impacted by: Other (alcoholism) Medications Administered Generic Name Dose Route Start Last Admin Trade Name Freq PRN Reason Stop Dose Admin Sodium Chloride 1,000 mls @ 200 mls/hr 09/02/23 11:15 09/02/23 11:27 Ns IVCONT 09/02/23 16:14 200 mls/hr .Q5H VANESSA Administration Discontinued Medications Generic Name Dose Route Start Last Admin Trade Name Freq PRN Reason Stop Dose Admin Acetaminophen 975 mg 09/02/23 11:55 09/02/23 11:58 Acetaminophen 325 Mg Tablet PO 09/02/23 11:56 975 mg ONCE ONE Administration Thiamine HCl 200 mg/ Sodium 102 mls @ 204 mls/hr 09/02/23 13:18 09/02/23 14:08 Chloride IV 09/02/23 13:47 Infused ONCE ONE Infusion Ondansetron HCl 4 mg 09/02/23 13:15 09/02/23 13:21 Ondansetron Hcl 4 Mg/2 Ml Vial IVPUSH 09/02/23 13:16 4 mg ONCE ONE Administration Phenobarbital Sodium 130 mg 09/02/23 11:10 09/02/23 11:49 Phenobarbital Sodium 130 Mg/Ml Vial IVPUSH 09/02/23 11:11 130 mg ONCE ONE Administration Phenobarbital Sodium 130 mg 09/02/23 13:15 09/02/23 13:21 Phenobarbital Sodium 130 Mg/Ml Vial IVPUSH 09/02/23 13:16 130 mg ONCE ONE Administration Phenobarbital Sodium 328 mg 09/02/23 14:00 09/02/23 14:40 Phenobarbital Sodium 130 Mg/Ml Im Once IM 09/02/23 14:01 328 mg ONCE ONE Administration Protocol Discharge Plan Discharge Clinical Impression: Alcohol withdrawal syndrome Patient Disposition: Admitted As Inpatient
[2023-09-02] MEDS: 0.9 % Sodium Chloride 1,000 ML 200 ML IVCONT (11:27)
--- NOTE | 2023-09-02 11:33 | PC.NURSE ---
aisha notified [facility] 21 cows 10
[2023-09-02 11:37] LABS: MANUAL DIFF FLAG NO
[2023-09-02 11:39] LABS: Basophils Absolute Auto 0.1 X10*3/uL (0.0-0.2); Basophils Percent Auto 0.9 % (0-2); Eosinophils Percent Auto 0.5 % (0-4); Hematocrit 41.4 % (42.0-52.0); Hemoglobin 14.3 g/dl (14.0-18.0); Imm Gran Abs Auto 0.02 X10*3/uL (0.00-0.03); Imm Gran Pct Auto 0.3 % (0.0-0.4); Lymphocytes Absolute Auto 1.8 X10*3/uL (1.2-4.9); Lymphocytes Percent Auto 29.8 % (20-40); Mean Corpuscular HGB Conc 34.5 g/dl (31.0-36.0); Mean Corpuscular Hemoglobin 28.7 pg (27.0-33.0); Mean Platelet Volume 9.5 fL (9.4-12.4); Monocytes Absolute Auto 0.4 X10*3/uL (0.1-1.2); Monocytes Percent Auto 6.5 % (2-11); Neutrophils Absolute Auto 3.7 x10*3/uL (2.0-8.3); Platelet Count 181 X10*3/uL (160-400); Red Blood Count 4.99 X10*6/uL (4.60-5.80); Red Cell Distribution Width 15.3 % (11.0-16.0); White Blood Count 5.9 X10*3/uL (4.8-10.8)
[2023-09-02] MEDS: PHENobarbitaL sodium 130 MG/ML VIAL IVPUSH ×2 (11:49→13:21)
[2023-09-02 11:58] LABS: Alanine Aminotransferase 52 U/L (0-40); Albumin Level 4.5 g/dL (3.5-5.0); Alkaline Phosphatase 77 U/L (39-117); Anion Gap 18 (12-20); Aspartate Amino Transferase 54 U/L (5-37); Bilirubin Total 0.3 mg/dL (0.0-1.0); Blood Urea Nitrogen 10 mg/dL (9-16); Calcium 9.1 mg/dL (8.4-10.2); Carbon Dioxide 27 mmol/L (22-29); Chloride 97 mmol/L (96-108); Creatinine Clr Calc Pharmacy 119.3; Estimated Glomerular Filt Rate > 60; Glucose Random 120 mg/dL (60-115); Lipase 26 U/L (8-78); Potassium 3.7 mmol/L (3.3-5.1); Sodium 138 mmol/L (135-145); Total Protein 8.2 g/dL (6.5-8.0)
[2023-09-02] MEDS: Acetaminophen 325 MG TABLET 975 MG PO (11:58)
[2023-09-02] MEDS: ondansetron HCL 4 MG/2 ML VIAL IVPUSH (13:21)
[2023-09-02] MEDS: Thiamine HCL 200 MG in 0.9 % Sodium Chloride 100 ML 204 MG IV (13:29)
--- NOTE | 2023-09-02 13:30 | PC.NURSE ---
md leonard notified pt hr 110-120, shaking, ciwa down to 15. per md leonard given phenobarb iv and zofran for nausea
[2023-09-02 13:34] LABS: Magnesium 1.9 mg/dL (1.6-2.6)
[2023-09-02] MEDS: PHENobarbitaL sodium 130 MG/ML IM ONCE 328 MG IM (14:40)
--- NOTE | 2023-09-02 14:52 | P.HPHOSP_ITS ---
History of Present Illness Date of Service: 09/02/23 Attending physician on admission: Mason Wiggins Chief Complaint: Alcohol withdrawal Pt is a 37-year-old male with a PMH significant for?HTN, GERD, alcohol use disorder, 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 Patient has long history of alcohol use disorder with multiple admissions for alcohol withdrawal, last admitted to this hospital 1 month prior on 07/28/2023. Patient was recently at [facility]and left 1 week ago. Patient reports after leaving the center he immediately went out and bought a handle of vodka. Has been drinking at least 1 handle of vodka daily for the past 7 days, more than prior. Has been blacking out? and falling. Arrives with right periorbital ecchymosis, but was unaware he had hit his head/face. No acute vision changes, but complains of mild headache and pain around right eye. Denies any auditory or visual hallucinations but endorses photophobia and hyperacusis. Some nausea and vomiting. Also complains of left-sided rib pain at site of previous fracture suffered during fall approximately 2 weeks ago. Denies chest pain/pressure, palpitations. No fever, chills, abdominal pain. No hx of withdrawal seizures. Of note, patient was diagnosed with right upper extremity DVT on 05/31/2023 and has been on Eliquis since then, scheduled to be completed at the end of July 2023. Pt reports has not been taking any home medications for the past seven days. In the ED pt was afebrile but tachycardic up to 115 and mildly hypertensive up to 145/91. Labs were significant for AST 54 and ALT 52, otherwise grossly unremarkable. Leukocytosis. Stable H&H. No significant electrolyte abnormalities. CT?of head showed no intracranial hemorrhage or other acute intracranial pathology. Pt was treated with IVF, acetaminophen, ondansetron, thiamine, and started on phenobarb protocol. Pt will be admitted to the hospital for treatment and further evaluation of acute alcohol withdrawal. Review of Systems 2 Review of Systems: Upper extremity tremors Nausea, vomiting, headache Hyperacusis, photophobia Right eye and left-side rib pain Denies auditory or visual hallucinations No acute vision changes Denies chest pain/pressure, palpitations No shortness a breath PMFSH Medical History Deep vein thrombosis, upper right extremity Alcohol use disorder, severe, dependence Alcohol abuse Elevated LFTs Recurrent major depression-severe Alcohol withdrawal syndrome Hypertension Anxiety and depression Psychiatric disturbance Family History Other Lung cancer Social History Household Members: None Housing: House Do you presently have visiting nurse or other home services: No Alcohol intake: current Alcohol intake frequency: 3 or more drinks per day Alcohol type: hard liquor Comment: Declines Bed Alarm Patient Tobacco Use Status: Never used Tobacco e-Cigarette/Vaping Use: Never Used Second Hand Smoke Exposure: No Use of substances other than those prescribed or required for medical reasons: No Substance Use Type: Marijuana Advance Directives: Yes Advance Directives on File: Yes Advance Directives Date on File: 01/08/21 service: No Current occupational status: unemployed Sexual orientation: Straight/Heterosexual Meds Allergies Allergy/AdvReac Type Severity Reaction Status Date / Time No Known Allergies Allergy Unknown UNKNOWN Verified 08/03/23 17:37 [NO KNOWN ALLERGIES] Active Medications: Current Medications Sodium Chloride (Ns) 1,000 mls @ 200 mls/hr IVCONT .Q5H VANESSA Stop: 09/02/23 16:14 Last Admin: 09/02/23 11:27 Dose: 200 mls/hr Pharmacy Consult (Consult Rx Etoh Phenob Im/Po) 1 each MISCELLANE ONCE PRN; Protocol PRN Reason: Consult order Phenobarbital (Phenobarbital 15 Mg Tablet) 45 mg PO BID VANESSA; Protocol Stop: 09/04/23 21:01 Phenobarbital (Phenobarbital 30 Mg Tablet) 30 mg PO BID VANESSA; Protocol Stop: 09/06/23 21:01 Phenobarbital (Phenobarbital 30 Mg Tablet) 30 mg PO DAILY [facility]; Protocol Stop: 09/08/23 09:01 Phenobarbital Sodium (Phenobarbital Sodium 130 Mg/Ml Vial Im Q3hx2) 246 mg IM Q3H VANESSA; Protocol Stop: 09/02/23 20:01 Home Medications Medication Instructions Recorded Confirmed Last Taken Type buspirone 30 mg tablet 30 mg PO BID 09/02/23 09/02/23 1 Week Ago History ~03/27/24 Physical Exam 2 Vital Signs and Narrative: Vital Signs: Last Vital Signs Temp 98.3 F 09/02/23 11:18 Pulse 115 H 09/02/23 13:23 Resp 14 09/02/23 13:23 BP 145/91 H 09/02/23 13:23 Pulse Ox 97 09/02/23 13:23 O2 Del Method Room Air 09/02/23 13:23 BMI result Body Mass Index 26.8 Constitutional: Alert, tremulous, in no acute distress. Mental Status: Oriented to person, place and time. Eyes: Pupils are equal, round, and reactive to light. Right-sided periorbital ecchymosis. EOM intact. Ear, Nose, and Throat: Oropharynx clear, mucous membranes moist. Ears and nose without deformities. Trachea midline. Respiratory: Clear to auscultation bilaterally. No wheezing, rales, or rhonchi. Cardiovascular: S1, S2, tachy. No murmurs, rubs, or gallops. Gastrointestinal: Abdomen soft, non-tender, non-distended. Normal bowel sounds. Chest wall: Mild tenderness to left side of chest wall in area or 6th-8th ribs Neurologic: Cranial nerves II-XII are grossly intact bilaterally. No focal neurological deficits. Moves all extremities spontaneously. Moderate to severe upper extremity tremors, voice tremulous, tongue fasciculations noted. Skin: Warm, dry. Musculoskeletal: No cyanosis or clubbing. Extremities: No edema. Psychiatric: Normal mood and affect. Results Labs 09/02/23 11:21 09/02/23 11:21 Labs: Laboratory Results - last 24 hr 09/02/23 11:21 MCV 83.0 MCH 28.7 MCHC 34.5 RDW 15.3 Plt Count 181 MPV 9.5 Immature Gran % (Auto) 0.3 Neut % (Auto) 62.0 Lymph % (Auto) 29.8 [place] % (Auto) 6.5 Eos % (Auto) 0.5 Baso % (Auto) 0.9 Lymph # (Auto) 1.8 [place] # (Auto) 0.4 Eos # (Auto) 0.0 Baso # (Auto) 0.1 Abs Immat Gran (auto) 0.02 Absolute Neuts (auto) 3.7 Absolute Nucleated RBC 0.000 Nucleated RBC % (auto) 0.0 Anion Gap 18 Estim Creat Clear Calc 119.3 Estimated GFR > 60 Random Glucose 120 H Calcium 9.1 Magnesium 1.9 Total Bilirubin 0.3 AST 54 H ALT 52 H Alkaline Phosphatase 77 Total Protein 8.2 H Albumin 4.5 Lipase 26 Imaging Radiologist's Impressions: Impressions Head CT 09/02/23 12:14 IMPRESSION: No intracranial hemorrhage or other acute intracranial pathology. Assessment and Plan (1) Alcohol withdrawal syndrome: Status: Acute Plan Pt is a 37-year-old male with a PMH significant for?HTN, GERD, alcohol use disorder, 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 Pt will be admitted to the hospital for treatment and further evaluation of acute alcohol withdrawal. Acute alcohol withdrawal Moderate to severe upper extremity tremors Patient started on phenobarb protocol and given thiamine IV in ED Continue Phenobarb protocol Daily multivitamin, folic acid, Thiamine 200 mg IV q.8 Famotidine 20 mg b.i.d. p.o. Follow lytes, Mag, BMP IVF: lanctated ringers CIWA scale Seizure protocols Addiction medicine consult Monitor on telemetry Hx of RUE DVT Diagnosed with DVT on 05/31/2023 Started on 3-month course of Eliquis, set to at end of July F/U with heme on 08/16 showed DVT resolved Pt not been taking Eliquis for past week Will hold restarting Eliquis for now Will repeat ultrasound tomorrow Hx of recent falls with periorbital ecchymosis CT of head negative for acute intracranial pathology Mild right eye pain, EOM intact, no acute vision changes Will hold on additional imaging at this time Mood disorder Continue home meds Full Code Attending:?Dr. Wiggins DVT Prophylaxis: Lovenox Pt will require a hospitalization of at least two nights for treatment of?acute alcohol withdrawal. Given patient's significant tremulousness and risk for withdrawal seizures, patient hospitalization for treatment with phenobarb protocol, Ativan p.r.n., and close monitoring of labs and cardiac functioning. Quality Stroke Does the patient have a stroke diagnosis?: No VTE Prior VTE?: No VTE Risk Level:: Medical - moderate - high VTE Device Contraindication: Treatment Not Indicated VTE Drug Contraindication: N/A - Med Ordered
[2023-09-02 15:07] LABS: Amphetamine Screen Urine Not Detected (Not Detect); Barbiturates, Urine POSITIVE (Not Detect); Benzodiazepines Screen Urine POSITIVE (Not Detect); Cannabinoid Screen Urine Not Detected (Not Detect); Cocaine Screen Urine Not Detected (Not Detect); Fentanyl, urine Not Detected (Not Detect); Opiate Screen Urine Not Detected (Not Detect); Phencyclidine Screen Urine Not Detected (Not Detect)
--- NOTE | 2023-09-02 15:22 | PHA.MEDREC ---
Pharmacy Consult ? Medication Reconciliation Pharmacy has completed the medication reconciliation. Spoke with [facility] who reported Trazodone, flueoxetine, eliquis and acamprosate were all filled in July. When speaking with the patient he report buspar BID however the pharmacy stated this medication has not been filled since May 2023. Patient adamant that he is taking the medication. Crystal Moran, RowanD
--- OUTSIDE RECORDS SUMMARY | 2023-09-02 15:39 | XMS_ITS | Continuity of Care Document ---
Author Name Unknown Organization [facility] al Address [address] [place] [address]- Care Team Providers Care Seat Cover Cutter Name Role Phone Not on Staff, PCP Primary Care Physician Unavail able Encounter [facility] Date(s): 08/08/23 - 08/09/[address] [address]- Encounter Diagnosis Alcohol intoxication(Final) - 08/08/23 Discharge Disposition: A-D/C Home Attending Physician: Jose [...] Given 1Result Comment: [10/10/2013] #1 2Result Comment: [facility]# [address] [id number] 3Result Comment: [03/10/2017] [facility] [id number] 4Admin Note: historical data 5Result Comment: BOOSTER 6Result Comment: [facility]: [id number] Medications acamprosate 333 mg oral delayed release [...] 11/29/22 8:0... Start Date: 11/29/22 Status: Ordered ondansetron 4 mg oral tablet, disintegrating 1 tablet = 4 mg, By Mouth, Every 8 hours, PRN as needed for nausea/vomiting, # 12 tablet, 0 Refills, Maintenance, 08/09/23 9:49:00 EDT, DIS Tablet, [facility]/pharmacy #[id number], Partial fill upon patient request if the prescription is for a schedule II opioid d... Start Date: 08/09/23 Status: Ordered Protonix 20 mg oral delayed [...] Range]: 1 2 3 Height 174 cm (08/09/23 6:02 AM) 174 cm (08/08/23 9:43 PM) 174 cm (08/08/23 8:48 PM) Weight 75.4 kg (08/08/23 8:48 PM) Oxygen Saturation [94-100 %] 97 % (08/09/23 9:00 AM) 98 % (08/09/23 7:20 AM) 96 % (08/09/23 6:02 AM) Pulse Rate [55-90 bpm] 96 bpm *H* (08/09/23 9:00 AM) 94 bpm *H* (08/09/23 7:20 AM) 92 bpm *H* (08/09/23 6:02 AM) Blood Pressure [90-138/55-84 mm Hg] 124/88mm Hg (08/09/23 9:00 AM) 107/71mm Hg (08/09/23 6:02 AM) 120/70mm Hg (08/08/23 9:43 PM) Respiratory Rate [16-30 br/min] 16 br/min (08/09/23 7:20 AM) 15 br/min *L* (08/08/23 9:43 PM) 15 br/min *L* (08/08/23 8:44 PM) Temperature [96.8-100.4 DegF] 97 DegF (08/09/23 9:00 AM) 98.0 DegF (08/08/23 8:44 PM) Mode of Delivery (Oxygen) Room air (08/09/23 9:00 AM) Room air (08/09/23 7:20 AM) Room air (08/09/23 6:02 AM) Blood pressure sites Arm, right (08/09/23 6:02 AM) Arm, left (08/08/23 9:43 PM) Arm, right (08/08/23 8:44 PM) Temperature Route Temporal (08/09/23 9:00 AM) Oral (08/08/23 8:44 PM) Dry Weight 75.4 kg (08/08/23 8:48 PM) Social History Social History Type Response Smoking Status Never smoker entered on: 10/10/13 Sex Note * Jose Luis Mars DO: PERFORM Event Display: Patient Education Leaflets Authored Date: [id number] Alcohol Intoxication ?? [id number] Alcohol Intoxication Alcohol intoxication is very serious. It occurs when you drink alcohol faster than your liver can break it down. Severe intoxication is a medical emergency. It's also called alcohol overdose or alcohol poisoning. It can lead to . Here are some brink facts: ??? It can take 10 minutes or more??to start??to??feel the effects of a drink. So it's easy to drink more than you planned. Binge drinking can lead to an alcohol overdose. Binge drinking is having: o5 or more drinks over a short time for men o 4 or more drinks over a short time for women ??? One drink may be more than 1 serving of alcohol. In some cases, a drink can be 2 to 4 servings. This depends on the type of drink. ??? It takes about 1 hour for your body to break down 1 serving of alcohol. If you have more than 1 drink, it can take a few hours or more. ??? People with alcohol abuse disorders are more likely to get alcohol poisoning. But it can happen to anyone who drinks too much alcohol. Even a first-time drinker is at risk. ??? Many things affect how drinks will affect you. These include: o If you've eaten o How fast you drink o Your weight o How much you normally drink (or not)o Medicines you are taking o If you have a chronic disease o If you are male or female o How old you are Symptoms of alcohol intoxication Mild intoxication ??? Feel more relaxed, less tense ??? Slightly slurred speech ??? Sleepiness ??? Poor motor skills Moderate intoxication ??? Changing behavior, aggression, depression ??? Poor judgment ??? Confusion ??? Trouble focusing ??? Poor balance and coordination ??? Worsening slurred speech Severe intoxication ??? Vomiting ??? Seizures ??? Fainting or passing out (unconscious) ??? Cold, clammy skin ??? Slow or irregular breathing ??? Low body temperature (hypothermia) ??? Coma ?? Health effects Alcohol causes health problems.??This can happen after only drinking a little. There is no set number of drinks or amount of alcohol that's too much.??How much you drink at one time affects your health. And so does drinking often. Alcohol affects your whole body in these ways: ??? Brain.??Alcohol can harm parts of the brain that affect your balance, memory, thinking, and feelings. It can cause memory loss, blackouts, depression, agitation, sleep cycle changes, and seizures. These changes may or may not go away. ??? Heart and vascular system.??Alcohol can damage heart muscle. This can cause the heart muscle to weaken and stretch (cardiomyopathy). This can lead to: o Trouble breathing o Irregular heartbeat o Atrial fibrillation o Leg swelling o Heart failure Alcohol also makes the blood vessels stiffen. This causes high blood pressure. All of these problems raise your risk for heart attacks or strokes. ??? Liver.??Alcohol causes fat to build up in the liver. This affects how the liver works. And it raises the risk for hepatitis. This condition leads to belly pain, appetite loss, yellow skin and eyes (jaundice), and bleeding problems. It also leads to harmful changes in the liver. These include??liver fibrosis and cirrhosis. This can affect your ability to fight off infections. These liver changes stop it from removing toxins in your blood. This can cause a brain disease called encephalopathy. ??? Pancreas.??Alcohol can cause inflammation of the pancreas (pancreatitis). It can lead to belly pain, fever, and diabetes. ??? Immune system.??Alcohol weakens your immune system. This makes it harder to fight off infections and colds. You'll also have a higherrisk of some infections. ??? Cancer risk.??Alcohol raises your risk of some types of cancer. They include cancer of the: o Mouth o Esophagus o Pharynx o Larynx o Liver o Breast ? Sexual function.??Alcohol abuse can also lead to sexual problems. There is no safe level of alcohol use for people who are or thinking of getting . Alcohol use in may cause lifelong harm to the baby. So alcohol should be avoided. It can also cause a group of defects called alcohol spectrum disorder. These defects can include physical problems. And also behavior and learning problems. ?? Home care for alcohol intoxication Follow these tips to care for yourself at home: ??? Don't drink any more alcohol. ??? Don't drive??until all effects of the alcohol have worn off. ??? Don't use machinery that can cause injuries. ??? Get lots of rest over the next few days. ??? Drink plenty of water and other drinks that don't have alcohol. ??? Try to eat regular meals. If you have been drinking a lot every day, you may have alcohol withdrawal. Symptoms often last 3 to 4 days. They may include: ??? Nervousness ??? Shakiness ??? Nausea ??? Sweating ??? Sleeplessness They may also include severe, life-threatening symptoms. These are known as delirium tremens (DTs).DTs typically begin between 48 and 96 hours after the last drink and last 1 to 5 days. They include: ??? Seizures ??? Confusion ??? Seeing or hearing things that are not there (hallucinations) Alcohol withdrawal can cause . Call your healthcare provider before you stop drinking. This isespecially important if you've had DTs during past alcohol withdrawals. They may be able to help you with medicine. They can also refer you to an inpatient detox program. Or stay with family or friends who know when to call for medical help and can support you. If you have severe symptoms, call your provider or call 911 for help (see below). ?? Follow-up care These groups can help you and your loved one: ??? Alcoholics Anonymous (A.A.). Gives support through a self-help fellowship. ?? Find A.A. meetings near you at www.aa.org. ??? [facility]. ?? Gives support to families at www.al-anon.org . Or call 663-072-3415. ??? [facility] Recovery ( Self- Management and Recovery Training). A nationwide abstinence-oriented support group for people with addictive issues. This free program is focused on motivation to change, urge control, and living a balanced life. For more information and meetings near you, go to www.[employer].org/ ??? Substance Abuse and Mental Health Services Administration ([facility]) Treatment Mgmt Specialist. Free information on treatment resources in your area at https://findtreatment.gov/. Or call 784-178-7687. Call 911 Call 911 if any of these occur: ??? Trouble breathing or slow irregular breathing ??? Chest pain ??? Sudden weakness on 1 side of your body or sudden trouble speaking ??? Heavy bleeding or vomiting blood ??? Very sleepy or having trouble waking up ??? Fainting ??? Fast heart rate ??? Seizure ?? When to get medical advice Call your healthcare provider right away if any of these occur: ??? Severe shakiness? Fever of100.4??F (38??C) or higher, or as advised by your provider ??? Confusion or hallucinations ??? Painin your upper belly that gets worse ??? Repeated vomiting ?? Last Reviewed Date: 2021 ?? 0931-3161 [employer]. All rights reserved. This information is not intended as a substitute for professional medical care. Always follow your healthcare professional's instructions. ?? Patient Care team information Care Team Personnel Name: Roseann Humphrey RN Position: [facility] RN Member Role: Primary Care Nurse Name: Samy Coleman RN Position: S RN Member Role: Primary Care Nurse Name: Anjelica Dukes RN Position: S RN Member Role: Primary Care Nurse Name: Alix Vargas RN Position: S RN Member Role: Primary Care Nurse Name: Nina Fulton RN Position: S RN Member Role: Primary Care Nurse Name: Not on Staff, PCP Position: [facility] Physician (General Medicine) Member Role: PCP Name: Mirela Fritz RN Position: S RN Member Role: Primary Care Nurse Name: Ana M Barnes Position: S RN Member Role: Primary Care Nurse Name: Neli Alcala RN Position: S RN Member Role: Primary Care Nurse Care Team Related Persons Name: COLÓNDOMENICA NANCE Address: [address] Name: KENNETH BALDWIN Address: home [address] [place] [address]
[2023-09-02] MEDS: Folic Acid 1 MG TABLET PO (15:42)
[2023-09-02] MEDS: Multivitamin TABLET 1 TAB PO (15:42)
[2023-09-02] MEDS: LORazepam 2 MG/ML VIAL IVPUSH (15:42)
[2023-09-02] MEDS: Enoxaparin Sodium 40 MG/0.4 ML SYRINGE SUBCUT (17:39)
[2023-09-02] MEDS: Acamprosate Calcium 333 MG TABLET.DR 666 MG PO ×2 (17:40→20:59)
[2023-09-02] MEDS: FLUoxetine HCl 20 MG CAPSULE 40 MG PO (17:40)
[2023-09-02] MEDS: PHENobarbitaL sodium 130 MG/ML VIAL IM Q3Hx2 246 MG IM ×2 (17:40→20:57)
[2023-09-02] MEDS: Lactated Ringers 1,000 ML 100 ML IVCONT (17:51)
[2023-09-02] MEDS: traZODone HCL 50 MG TABLET PO (20:59)
[2023-09-02] MEDS: Famotidine 20 MG TABLET PO (20:59)
[2023-09-02] MEDS: busPIRone HCl 10 MG TABLET 30 MG PO (20:59)
[2023-09-02] MEDS: Acetaminophen 325 MG TABLET 650 MG PO (21:01)
[2023-09-03 04:00] VITALS: BP 140/79; PULSE 55; RESP 16; TEMP 36.3; O2SAT 97
[2023-09-03 07:06] VITALS: BP 136/82; PULSE 54; RESP 16; TEMP 36.3; O2SAT 97
[2023-09-03 07:17] LABS: Anion Gap 13 (12-20); Blood Urea Nitrogen 11 mg/dL (9-16); Calcium 9.1 mg/dL (8.4-10.2); Carbon Dioxide 30 mmol/L (22-29); Chloride 98 mmol/L (96-108); Creatinine Clr Calc Pharmacy 130.4; Estimated Glomerular Filt Rate > 60; Glucose Random 91 mg/dL (60-115); Magnesium 1.7 mg/dL (1.6-2.6); Potassium 3.2 mmol/L (3.3-5.1); Sodium 138 mmol/L (135-145)
[2023-09-03] MEDS: Acamprosate Calcium 333 MG TABLET.DR 666 MG PO ×3 (09:02→19:53)
[2023-09-03] MEDS: Famotidine 20 MG TABLET PO ×2 (09:02→19:54)
[2023-09-03] MEDS: PHENobarbitaL 15 MG TABLET 45 MG PO ×2 (09:03→19:53)
[2023-09-03] MEDS: Potassium Chloride Packet 20 MEQ PACKET 40 MEQ PO ×2 (09:03→19:54)
[2023-09-03] MEDS: Multivitamin TABLET 1 TAB PO (09:03)
[2023-09-03] MEDS: busPIRone HCl 10 MG TABLET 30 MG PO ×2 (09:03→19:53)
[2023-09-03] MEDS: Folic Acid 1 MG TABLET PO (09:03)
[2023-09-03] MEDS: 0.9 % Sodium Chloride Flush 3 ML SYRINGE IVFLUSH ×3 (09:03→19:54)
[2023-09-03] MEDS: FLUoxetine HCl 20 MG CAPSULE 40 MG PO (09:03)
[2023-09-03] MEDS: Thiamine HCL 100 MG TABLET PO (09:03)
[2023-09-03 11:35] VITALS: BP 147/83; PULSE 67; RESP 16; TEMP 36.4; O2SAT 97
[2023-09-03] MEDS: Lidocaine 4 % Patch ADH..PATCH 2 PATCH TRANSDERMA (12:28)
[2023-09-03] MEDS: LORazepam 2 MG/ML VIAL 1 MG IVPUSH (13:08)
--- NOTE | 2023-09-03 15:15 | P.PNIM_ITS ---
Subjective Subjective Date of Service: 09/03/23 Interval History: Somnolent but arousable. No seizure since admission Review of Systems Denies chest pain Denies shortness of breath Denies nausea vomiting diarrhea Denies fever chills Physical Exam 2 Vital Signs: Vital Signs: Last Vital Signs Temp 97.5 F 09/03/23 11:35 Pulse 67 09/03/23 11:35 Resp 16 09/03/23 11:35 BP 147/83 H 09/03/23 11:35 Pulse Ox 97 09/03/23 11:35 O2 Del Method Room Air 09/03/23 11:35 BMI result Body Mass Index 26.8 Const: Other: Awake alert no acute distress Resp: Other: Clear to auscultation bilaterally no rales rhonchi or wheezes Cardio: Other: No S4; positive S1-S2; no S3 murmurs rubs or gallops GI: Other: Soft nontender nondistended normoactive bowel sounds Neuro: Other: Cranial nerves 2-12 grossly intact as tested. Motor is 5/5 all extremities. Sensation is intact. Cognition appropriate gait steady Extrem: Other: No edema bilaterally Objective Data Active Medications Acamprosate (Acamprosate Calcium 333 Mg Tablet.) 666 mg PO TID [facility] Last Admin: 09/03/23 09:02 Dose: 666 mg Documented By: JULIANA Acetaminophen (Acetaminophen 325 Mg Tablet) 650 mg PO Q6H PRN PRN Reason: Pain, Mild (Pain Scale 1-3) Last Admin: 09/02/23 21:01 Dose: 650 mg Documented By: MARCELLE Benzonatate (Benzonatate 100 Mg Capsule) 100 mg PO TID PRN PRN Reason: Cough Buspirone HCl (Buspirone Hcl 10 Mg Tablet) 30 mg PO BID [facility] Last Admin: 09/03/23 09:03 Dose: 30 mg Documented By: JULIANA Docusate Sodium (Docusate Sodium 100 Mg Capsule) 100 mg PO DAILY PRN PRN Reason: Constipation Enoxaparin Sodium (Enoxaparin Sodium 40 Mg/0.4 Ml Syringe) 40 mg SUBCUT Q24H [facility] Last Admin: 09/02/23 17:39 Dose: 40 mg Documented By: AVNI Famotidine (Famotidine 20 Mg Tablet) 20 mg PO BID [facility] Last Admin: 09/03/23 09:02 Dose: 20 mg Documented By: JULIANA Fluoxetine HCl (Fluoxetine Hcl 20 Mg Capsule) 40 mg PO DAILY [facility] Last Admin: 09/03/23 09:03 Dose: 40 mg Documented By: JULIANA Folic Acid (Folic Acid 1 Mg Tablet) 1 mg PO DAILY [facility] Stop: 09/05/23 15:19 Last Admin: 09/03/23 09:03 Dose: 1 mg Documented By: JULIANA Lidocaine (Lidocaine 4 % Patch Adh..Patch) 2 patch TRANSDERMA DAILY [facility]; Protocol Last Admin: 09/03/23 12:28 Dose: 2 patch Documented By: JULIANA Multivitamins/Vitamin C (Multivitamin Tablet) 1 tab PO DAILY [facility] Stop: 09/05/23 15:19 Last Admin: 09/03/23 09:03 Dose: 1 tab Documented By: JULIANA Ondansetron HCl (Ondansetron Hcl 4 Mg/2 Ml Vial) 4 mg IVPUSH Q8H PRN PRN Reason: Nausea and Vomiting Pharmacy Consult (Consult Rx Etoh Phenob Im/Po) 1 each MISCELLANE ONCE PRN; Protocol PRN Reason: Consult order Phenobarbital (Phenobarbital 15 Mg Tablet) 45 mg PO BID [facility]; Protocol Stop: 09/04/23 21:01 Last Admin: 09/03/23 09:03 Dose: 45 mg Documented By: JULIANA Phenobarbital (Phenobarbital 30 Mg Tablet) 30 mg PO BID [facility]; Protocol Stop: 09/06/23 21:01 Phenobarbital (Phenobarbital 30 Mg Tablet) 30 mg PO DAILY [facility]; Protocol Stop: 09/08/23 09:01 Potassium Chloride (Potassium Chloride Packet 20 Meq Packet) 40 meq PO BID [facility] Stop: 09/03/23 21:01 Last Admin: 09/03/23 09:03 Dose: 40 meq Documented By: JULIANA Sodium Chloride (0.9 % Sodium Chloride Flush 3 Ml Syringe) 3 ml IVFLUSH QSHIFT [facility] Last Admin: 09/03/23 09:03 Dose: 3 ml Documented By: JULIANA Thiamine HCl (Thiamine Hcl 100 Mg Tablet) 100 mg PO DAILY [facility] Stop: 09/06/23 08:59 Last Admin: 09/03/23 09:03 Dose: 100 mg Documented By: JULIANA Trazodone HCl (Trazodone Hcl 50 Mg Tablet) 50 mg PO BEDTIME VANESSA Last Admin: 09/02/23 20:59 Dose: 50 mg Documented By: MARCELLE Labs 09/02/23 11:21 09/03/23 06:36 Labs: Laboratory Results - last 24 hr 09/03/23 06:36 Hold Purple Top SEE NOTE Anion Gap 13 Estim Creat Clear Calc 130.4 Estimated GFR > 60 Random Glucose 91 Calcium 9.1 Magnesium 1.7 Assessment and Plan (1) Alcohol withdrawal syndrome: Status: Acute Plan Pt is a 37-year-old male with a PMH significant for?HTN, GERD, alcohol use disorder, 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 Pt will be admitted to the hospital for treatment and further evaluation of acute alcohol withdrawal. 1.Acute alcohol withdrawal -phenobarb protocol effective -multivitamin/folic acid/Thiamine 200 mg IV q.8 -continue CIWA scale -Addiction medicine consult 2.Hx of RUE DVT -ultrasound failed to demonstrate any evidence of DVT -completed therapies; DC Eliquis Full Code Lovenox Patient will require ongoing hospitalization to monitor on CIWA scale. High risk outpatient failure given past history Quality Stroke Does the patient have a stroke diagnosis?: No VTE Prior VTE?: No VTE Risk Level:: Medical - moderate - high VTE Device Contraindication: Treatment Not Indicated VTE Drug Contraindication: N/A - Med Ordered
[2023-09-03 15:25] VITALS: BP 139/88; PULSE 64; RESP 16; TEMP 36.6; O2SAT 96
--- NOTE | 2023-09-03 16:18 | MHC.CM.PN ---
Patient lives by himself. He is independent with all functional mobility. He was recently at [facility] for ETOH. PCP is chiara, Dr Car. HCP is on file. DP [facility] Rehab vs home self care. The patient states that his father will provide transport at discharge.
[2023-09-03] MEDS: Enoxaparin Sodium 40 MG/0.4 ML SYRINGE SUBCUT (17:04)
[2023-09-03 19:46] VITALS: BP 133/81; PULSE 74; RESP 18; TEMP 36.6; O2SAT 98
[2023-09-03] MEDS: Benzonatate 100 MG CAPSULE PO (19:53)
[2023-09-03] MEDS: Acetaminophen 325 MG TABLET 650 MG PO (19:54)
[2023-09-03] MEDS: traZODone HCL 50 MG TABLET PO (19:54)
[2023-09-03 23:46] VITALS: BP 129/74; PULSE 78; RESP 20; TEMP 36.2; O2SAT 96
[2023-09-04 03:19] VITALS: BP 146/87; PULSE 60; RESP 20; TEMP 36.1; O2SAT 98
[2023-09-04 07:13] LABS: Anion Gap 13 (12-20); Blood Urea Nitrogen 9 mg/dL (9-16); Calcium 9.4 mg/dL (8.4-10.2); Carbon Dioxide 25 mmol/L (22-29); Chloride 102 mmol/L (96-108); Creatinine Clr Calc Pharmacy 141.8; Estimated Glomerular Filt Rate > 60; Glucose Random 102 mg/dL (60-115); Potassium 3.4 mmol/L (3.3-5.1); Sodium 137 mmol/L (135-145)
[2023-09-04 07:44] VITALS: BP 140/87; PULSE 59; RESP 18; TEMP 36.3; O2SAT 97
[2023-09-04] MEDS: PHENobarbitaL 15 MG TABLET 45 MG PO ×2 (08:26→20:00)
[2023-09-04] MEDS: FLUoxetine HCl 20 MG CAPSULE 40 MG PO (08:26)
[2023-09-04] MEDS: Acamprosate Calcium 333 MG TABLET.DR 666 MG PO ×3 (08:26→20:01)
[2023-09-04] MEDS: Folic Acid 1 MG TABLET PO (08:27)
[2023-09-04] MEDS: Thiamine HCL 100 MG TABLET PO (08:27)
[2023-09-04] MEDS: Famotidine 20 MG TABLET PO ×2 (08:27→20:01)
[2023-09-04] MEDS: Lidocaine 4 % Patch ADH..PATCH 2 PATCH TRANSDERMA (08:27)
[2023-09-04] MEDS: Multivitamin TABLET 1 TAB PO (08:27)
[2023-09-04] MEDS: busPIRone HCl 10 MG TABLET 30 MG PO ×2 (08:27→20:01)
[2023-09-04] MEDS: 0.9 % Sodium Chloride Flush 3 ML SYRINGE IVFLUSH ×3 (08:28→20:01)
[2023-09-04 12:00] VITALS: BP 172/120; PULSE 74; RESP 20; TEMP 36.7; O2SAT 100
--- NOTE | 2023-09-04 12:00 | MHC.CM.PN ---
Per MD rounds no dc today. RN states CIWA ss increase mid morning. DP Patient would like to return to [facility] for ETOH Rehab. The Recovery nurse will provide community resource information. Final dispo to be determined with assit from Recovery Nurse. Patient will arrange for transport home.
[2023-09-04] MEDS: LORazepam 2 MG/ML VIAL 1 MG IVPUSH ×3 (13:57→18:05)
--- NOTE | 2023-09-04 14:50 | MHC.RECOVRN ---
Met with pt [id number] after consult placed to Addiction Medicine for AUD.? Chart review completed and received report from floor nurse Ladonna. Pt had presented to the ED via EMS for acute alcohol W/D.? ?Pt was admitted to the floor for monitoring and treatment of acute alcohol W/D. Pt had also reported a fall and due to being on Eliquis a head CT was done and the findings were no intracranial hemorrhage or other acute intracranial pathology. Upon assessment pt is sitting up on side of bed awake and alert.? He is on the phone with his employer and discussion a return to work date.? Pt pt?s nurse his last CIWA score was a 2 for anxiety and hand tremors.? Pt reporting the same.? Pt continues to receive medication protocol for W/D sx.? ?? Pt reports being in and out of treatment for AUD for many years.? His last use was prior to coming in to ER.? He reports he had been at [facility] for treatment and he left due to several issues at home that needed to be addressed including his mortgage arrears, taxes and employment.? While pt was home he started drinking again approx. 1 week ago and reports drinking 1 handle of vodka/day.? Now that all his business is handled pt would like to go back to [facility] for a 30 day stay.? He reports that he has called his insurance co and they will cover this stay.? He has called his employer and has a JOSE to complete this stay.? He called [facility] and there are no beds available.? He placed himself on the wait list.? He has no desire to go to any other program.? Pt is also requesting to receive Vivitrol injection prior to D/C from [facility] T/W consulted with JOI Gomez and Dr. Wiggins ?re:? pt?s request for Vivitrol.? Medication was ordered and upon discussion with floor nurse Ladonna, they will administer it today.? T/W also provided pt with community resources in the case that he does not get back into SR.? He is resistant but will explore the options.? ? Report to ACS team and pt?s nurse Dougherty.? T/W available for further questions/concerns.?? Will continue to support pt. until D/C from facility.
[2023-09-04 15:19] VITALS: BP 173/113; PULSE 121; RESP 21; TEMP 36.1; O2SAT 96
--- NOTE | 2023-09-04 15:59 | P.PNIM_ITS ---
Subjective Subjective Date of Service: 09/04/23 Interval History: Tolerant of CIWA scale. No seizures observed. Still somewhat tremulous overall Review of Systems Denies chest pain Denies shortness of breath Denies nausea vomiting diarrhea Denies fever chills Physical Exam 2 Vital Signs: Vital Signs: Last Vital Signs Temp 96.9 F 09/04/23 15:19 Pulse 121 H 09/04/23 15:19 Resp 21 H 09/04/23 15:19 BP 173/113 H 09/04/23 15:19 Pulse Ox 96 09/04/23 15:19 O2 Del Method Room Air 09/04/23 15:19 BMI result Body Mass Index 26.8 Const: Other: Awake alert no acute distress Resp: Other: Clear to auscultation bilaterally no rales rhonchi or wheezes Cardio: Other: No S4; positive S1-S2; no S3 murmurs rubs or gallops GI: Other: Soft nontender nondistended normoactive bowel sounds Neuro: Other: Cranial nerves 2-12 grossly intact as tested. Motor is 5/5 all extremities. Sensation is intact. Cognition appropriate gait steady Extrem: Other: No edema bilaterally Objective Data Active Medications Acamprosate (Acamprosate Calcium 333 Mg Tablet.) 666 mg PO TID [facility] Last Admin: 09/04/23 08:26 Dose: 666 mg Documented By: JULIANA Acetaminophen (Acetaminophen 325 Mg Tablet) 650 mg PO Q6H PRN PRN Reason: Pain, Mild (Pain Scale 1-3) Last Admin: 09/03/23 19:54 Dose: 650 mg Documented By: BIENVENIDO Benzonatate (Benzonatate 100 Mg Capsule) 100 mg PO TID PRN PRN Reason: Cough Last Admin: 09/03/23 19:53 Dose: 100 mg Documented By: BIENVENIDO Buspirone HCl (Buspirone Hcl 10 Mg Tablet) 30 mg PO BID [facility] Last Admin: 09/04/23 08:27 Dose: 30 mg Documented By: JULIANA Docusate Sodium (Docusate Sodium 100 Mg Capsule) 100 mg PO DAILY PRN PRN Reason: Constipation Enoxaparin Sodium (Enoxaparin Sodium 40 Mg/0.4 Ml Syringe) 40 mg SUBCUT Q24H [facility] Last Admin: 09/03/23 17:04 Dose: 40 mg Documented By: JULIANA Famotidine (Famotidine 20 Mg Tablet) 20 mg PO BID [facility] Last Admin: 09/04/23 08:27 Dose: 20 mg Documented By: JULIANA Fluoxetine HCl (Fluoxetine Hcl 20 Mg Capsule) 40 mg PO DAILY [facility] Last Admin: 09/04/23 08:26 Dose: 40 mg Documented By: JULIANA Folic Acid (Folic Acid 1 Mg Tablet) 1 mg PO DAILY [facility] Stop: 09/05/23 15:19 Last Admin: 09/04/23 08:27 Dose: 1 mg Documented By: JULIANA Lidocaine (Lidocaine 4 % Patch Adh..Patch) 2 patch TRANSDERMA DAILY [facility]; Protocol Last Admin: 09/04/23 08:27 Dose: 2 patch Documented By: JULIANA Lorazepam (Lorazepam 2 Mg/Ml Vial) 1 mg IVPUSH Q4H PRN PRN Reason: anxiety/restlessness Last Admin: 09/04/23 13:57 Dose: 1 mg Documented By: JULIANA Multivitamins/Vitamin C (Multivitamin Tablet) 1 tab PO DAILY [facility] Stop: 09/05/23 15:19 Last Admin: 09/04/23 08:27 Dose: 1 tab Documented By: JULIANA Naltrexone Microspheres (Naltrexone Microspheres 380 Mg Bela.Er.Rec) 380 mg IM Q28D [facility] Ondansetron HCl (Ondansetron Hcl 4 Mg/2 Ml Vial) 4 mg IVPUSH Q8H PRN PRN Reason: Nausea and Vomiting Pharmacy Consult (Consult Rx Etoh Phenob Im/Po) 1 each MISCELLANE ONCE PRN; Protocol PRN Reason: Consult order Phenobarbital (Phenobarbital 15 Mg Tablet) 45 mg PO BID [facility]; Protocol Stop: 09/04/23 21:01 Last Admin: 09/04/23 08:26 Dose: 45 mg Documented By: JULIANA Phenobarbital (Phenobarbital 30 Mg Tablet) 30 mg PO BID [facility]; Protocol Stop: 09/06/23 21:01 Phenobarbital (Phenobarbital 30 Mg Tablet) 30 mg PO DAILY [facility]; Protocol Stop: 09/08/23 09:01 Sodium Chloride (0.9 % Sodium Chloride Flush 3 Ml Syringe) 3 ml IVFLUSH QSHIFT [facility] Last Admin: 09/04/23 08:28 Dose: 3 ml Documented By: JULIANA Thiamine HCl (Thiamine Hcl 100 Mg Tablet) 100 mg PO DAILY [facility] Stop: 09/06/23 08:59 Last Admin: 09/04/23 08:27 Dose: 100 mg Documented By: JULIANA Trazodone HCl (Trazodone Hcl 50 Mg Tablet) 50 mg PO BEDTIME [facility] Last Admin: 09/03/23 19:54 Dose: 50 mg Documented By: BIENVENIDO Labs 09/02/23 11:21 09/04/23 06:27 Labs: Laboratory Results - last 24 hr 09/04/23 06:27 Hold Purple Top SEE NOTE Anion Gap 13 Estim Creat Clear Calc 141.8 Estimated GFR > 60 Random Glucose 102 Calcium 9.4 Magnesium 2.0 Assessment and Plan (1) Alcohol withdrawal syndrome: Status: Acute Plan Pt is a 37-year-old male with a PMH significant for?HTN, GERD, alcohol use disorder, 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 Pt will be admitted to the hospital for treatment and further evaluation of acute alcohol withdrawal. 1.Acute alcohol withdrawal -phenobarb protocol effective... Utilizing p.r.n. Ativan for breakthrough -multivitamin/folic acid/Thiamine 200 mg IV q.8 -continue CIWA scale -Addiction medicine consult appreciated. Vivitrol injection given today. -Wishes detox upon discharge 2.Hx of RUE DVT -ultrasound failed to demonstrate any evidence of DVT -completed therapies; DC Eliquis Full Code Lovenox Patient will require ongoing hospitalization to monitor on CIWA scale. High risk outpatient failure given past history Quality Stroke Does the patient have a stroke diagnosis?: No VTE Prior VTE?: No VTE Risk Level:: Medical - moderate - high VTE Device Contraindication: Treatment Not Indicated VTE Drug Contraindication: N/A - Med Ordered
[2023-09-04] MEDS: Enoxaparin Sodium 40 MG/0.4 ML SYRINGE SUBCUT (17:26)
[2023-09-04 19:56] VITALS: BP 142/86; PULSE 97; RESP 20; TEMP 37.2; O2SAT 95
[2023-09-04] MEDS: traZODone HCL 50 MG TABLET PO (20:01)
[2023-09-04 23:55] VITALS: BP 127/83; PULSE 59; RESP 20; TEMP 35.9; O2SAT 95
[2023-09-05 03:18] VITALS: BP 128/75; PULSE 75; RESP 20; TEMP 35.9; O2SAT 96
[2023-09-05 07:15] LABS: Anion Gap 12 (12-20); Blood Urea Nitrogen 12 mg/dL (9-16); Calcium 9.7 mg/dL (8.4-10.2); Carbon Dioxide 24 mmol/L (22-29); Chloride 103 mmol/L (96-108); Creatinine Clr Calc Pharmacy 120.8; Estimated Glomerular Filt Rate > 60; Glucose Random 105 mg/dL (60-115); Magnesium 2.1 mg/dL (1.6-2.6); Potassium 3.4 mmol/L (3.3-5.1); Sodium 136 mmol/L (135-145)
[2023-09-05 07:51] VITALS: BP 154/98; PULSE 83; RESP 20; TEMP 36.2; O2SAT 97
[2023-09-05] MEDS: Acamprosate Calcium 333 MG TABLET.DR 666 MG PO ×3 (08:14→20:46)
[2023-09-05] MEDS: 0.9 % Sodium Chloride Flush 3 ML SYRINGE IVFLUSH ×2 (08:14→20:46)
[2023-09-05] MEDS: busPIRone HCl 10 MG TABLET 30 MG PO ×2 (08:14→20:46)
[2023-09-05] MEDS: FLUoxetine HCl 20 MG CAPSULE 40 MG PO (08:16)
[2023-09-05] MEDS: Famotidine 20 MG TABLET PO ×2 (08:16→20:46)
[2023-09-05] MEDS: Folic Acid 1 MG TABLET PO (08:16)
[2023-09-05] MEDS: Lidocaine 4 % Patch ADH..PATCH 2 PATCH TRANSDERMA (08:17)
[2023-09-05] MEDS: PHENobarbitaL 30 MG TABLET PO (08:17)
[2023-09-05] MEDS: Thiamine HCL 100 MG TABLET PO (08:17)
[2023-09-05] MEDS: Multivitamin TABLET 1 TAB PO (08:17)
[2023-09-05 11:13] VITALS: BP 144/102; PULSE 98; RESP 20; TEMP 36.6; O2SAT 98
[2023-09-05] MEDS: LORazepam 2 MG/ML VIAL 1 MG IVPUSH ×3 (11:48→20:48)
--- NOTE | 2023-09-05 14:15 | P.PNIM_ITS ---
Subjective Subjective Date of Service: 09/05/23 Interval History: c/o some anxiety/tremulousness no N/V Review of Systems Review of Systems: Yes all other systems are reviewed and are negative Physical Exam 2 Vital Signs: Vital Signs: Last Vital Signs Temp 97.8 F 09/05/23 11:13 Pulse 98 09/05/23 11:13 Resp 20 09/05/23 11:13 BP 144/102 H 09/05/23 11:13 Pulse Ox 98 09/05/23 11:13 O2 Del Method Room Air 09/05/23 11:13 BMI result Body Mass Index 26.8 Gen: in no acute distress HEENT: sclera anicteric, moist mucus membranes Neck: supple Lungs: clear to auscultation bilaterally Heart: regular rate and rhythm, no murmurs Abd: soft, non-tender, non-distended Ext: no edema Skin: warm/well-perfused Neuro: alert and oriented x3, no focal findings Psych: appropriate affect Objective Data Active Medications Acamprosate (Acamprosate Calcium 333 Mg Tablet.) 666 mg PO TID [facility] Last Admin: 09/05/23 08:14 Dose: 666 mg Documented By: PODMORP Acetaminophen (Acetaminophen 325 Mg Tablet) 650 mg PO Q6H PRN PRN Reason: Pain, Mild (Pain Scale 1-3) Last Admin: 09/03/23 19:54 Dose: 650 mg Documented By: DALIA-DARRICK Benzonatate (Benzonatate 100 Mg Capsule) 100 mg PO TID PRN PRN Reason: Cough Last Admin: 09/03/23 19:53 Dose: 100 mg Documented By: DALIA-DARRICK Buspirone HCl (Buspirone Hcl 10 Mg Tablet) 30 mg PO BID [facility] Last Admin: 09/05/23 08:14 Dose: 30 mg Documented By: PODMORP Docusate Sodium (Docusate Sodium 100 Mg Capsule) 100 mg PO DAILY PRN PRN Reason: Constipation Enoxaparin Sodium (Enoxaparin Sodium 40 Mg/0.4 Ml Syringe) 40 mg SUBCUT Q24H [facility] Last Admin: 09/04/23 17:26 Dose: 40 mg Documented By: JULIANA Famotidine (Famotidine 20 Mg Tablet) 20 mg PO BID [facility] Last Admin: 09/05/23 08:16 Dose: 20 mg Documented By: KENZIEMORP Fluoxetine HCl (Fluoxetine Hcl 20 Mg Capsule) 40 mg PO DAILY [facility] Last Admin: 09/05/23 08:16 Dose: 40 mg Documented By: KENZIEMORP Folic Acid (Folic Acid 1 Mg Tablet) 1 mg PO DAILY [facility] Stop: 09/05/23 15:19 Last Admin: 09/05/23 08:16 Dose: 1 mg Documented By: KENZIEMORP Lidocaine (Lidocaine 4 % Patch Adh..Patch) 2 patch TRANSDERMA DAILY [facility]; Protocol Last Admin: 09/05/23 08:17 Dose: 2 patch Documented By: KENZIEMORP Lorazepam (Lorazepam 2 Mg/Ml Vial) 1 mg IVPUSH Q4H PRN PRN Reason: anxiety/restlessness Last Admin: 09/05/23 11:48 Dose: 1 mg Documented By: KENZIEMORP Multivitamins/Vitamin C (Multivitamin Tablet) 1 tab PO DAILY [facility] Stop: 09/05/23 15:19 Last Admin: 09/05/23 08:17 Dose: 1 tab Documented By: GALO Naltrexone Microspheres (Naltrexone Microspheres 380 Mg Bela.Er.Rec) 380 mg IM Q28D [facility] Last Admin: 09/04/23 16:13 Dose: 380 mg Documented By: JULIANA Ondansetron HCl (Ondansetron Hcl 4 Mg/2 Ml Vial) 4 mg IVPUSH Q8H PRN PRN Reason: Nausea and Vomiting Pharmacy Consult (Consult Rx Etoh Phenob Im/Po) 1 each MISCELLANE ONCE PRN; Protocol PRN Reason: Consult order Phenobarbital (Phenobarbital 30 Mg Tablet) 30 mg PO BID [facility]; Protocol Stop: 09/06/23 21:01 Last Admin: 09/05/23 08:17 Dose: 30 mg Documented By: KENZIEMORP Phenobarbital (Phenobarbital 30 Mg Tablet) 30 mg PO DAILY [facility]; Protocol Stop: 09/08/23 09:01 Sodium Chloride (0.9 % Sodium Chloride Flush 3 Ml Syringe) 3 ml IVFLUSH QSHIFT [facility] Last Admin: 09/05/23 08:14 Dose: 3 ml Documented By: KENZIEMORP Thiamine HCl (Thiamine Hcl 100 Mg Tablet) 100 mg PO DAILY [facility] Stop: 09/06/23 08:59 Last Admin: 09/05/23 08:17 Dose: 100 mg Documented By: PODMORP Trazodone HCl (Trazodone Hcl 50 Mg Tablet) 50 mg PO BEDTIME [facility] Last Admin: 09/04/23 20:01 Dose: 50 mg Documented By: JULIENNE Labs 09/02/23 11:21 09/05/23 06:30 Labs: Laboratory Results - last 24 hr 09/05/23 06:30 Hold Purple Top SEE NOTE Anion Gap 12 Estim Creat Clear Calc 120.8 Estimated GFR > 60 Random Glucose 105 Calcium 9.7 Magnesium 2.1 Assessment and Plan (1) Alcohol withdrawal syndrome: Status: Acute Plan d4 37yo M with HTN, GERD, AUD, RUE DVT on apixaban, MDD admitted for EtOH withdrawal acute EtOH withdrawal - complete phenobarbital taper, vitamins - Addiction Medicine consulted, Vivitrol given 09/04/23, continue acamprosate hx RUE DVT - resolved, off apixaban mood disorder - trazodone, buspirone, fluoxtine dispo - planning inpatient EtOH treatment facility VTE ppx - LMWH dispo - placement Total time managing care of this patient today: 35 minutes. Quality Stroke Does the patient have a stroke diagnosis?: No VTE Prior VTE?: No VTE Risk Level:: Medical - moderate - high VTE Device Contraindication: Treatment Not Indicated VTE Drug Contraindication: N/A - Med Ordered
[2023-09-05 15:00] VITALS: BP 159/100; PULSE 122; RESP 20; TEMP 36.6; O2SAT 96
--- NOTE | 2023-09-05 16:59 | MHC.RECOVRN ---
Met with pt in to follow up and provide support.? Pt awake, alert,sitting in bed and easily engagied. Pt continues to receive ativan for anxiety but did have his last dose of phenobarb this AM and other than anxiety is feeling good. ? Pt heard from [facility] that he could not go back there so called [facility] and was able to get a bed today but when they found out his last dose of phenobarb was less than 24 hours they told him he had to wait. He needs to call back in the AM to see if bed still available. T/W assisted pt with faxing all necessary papers over to [facility]. He is a little anxious about this and we discussed alternatives if this option did not go through. ? Pt denies other concerns at this time.? T/w available as needed.
[2023-09-05] MEDS: Enoxaparin Sodium 40 MG/0.4 ML SYRINGE SUBCUT (18:34)
[2023-09-05 18:54] VITALS: BP 150/80; PULSE 72; RESP 20; TEMP 36.6; O2SAT 97
[2023-09-05] MEDS: traZODone HCL 50 MG TABLET PO (20:46)
[2023-09-06] VITALS: BP 129/75; PULSE 76; RESP 20; TEMP 36.2; O2SAT 97
[2023-09-06 04:00] VITALS: BP 129/73; PULSE 76; RESP 19; TEMP 36.4; O2SAT 96
[2023-09-06 07:40] VITALS: BP 123/69; PULSE 65; RESP 20; TEMP 36.7; O2SAT 96
--- NOTE | 2023-09-06 09:01 | PM.DS ---
DS: Providers Provider Date of Service: 09/06/23 Date of admission: 09/02/23 15:16 Date of discharge: 09/06/23 Primary care physician: Unknown Physician Consults: 09/02/23 15:15 Addiction Medicine Routine Consulting Provider: Addiction Covering Reason for consultation: Alcohol use disorder DS: Diagnosis Discharge Diagnosis (1) Alcohol withdrawal syndrome: Status: Acute (2) Alcohol use disorder, severe, dependence: Status: Acute (3) History of DVT (deep vein thrombosis): Status: Acute DS: Summary Hospital Course Hospital Course: From the history and physical by the admitting hospitalist, GLENYS Chavarria, 09/02/23: Pt is a 37-year-old male with a PMH significant for?HTN, GERD, alcohol use disorder, 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 Patient has long history of alcohol use disorder with multiple admissions for alcohol withdrawal, last admitted to this hospital 1 month prior on 07/28/2023. Patient was recently at [facility]?and left 1 week ago. Patient reports after leaving the center he immediately went out and bought a handle of vodka. Has been drinking at least 1 handle of vodka daily for the past 7 days, more than prior. Has been blacking out? and falling. Arrives with right periorbital ecchymosis, but was unaware he had hit his head/face. No acute vision changes, but complains of mild headache and pain around right eye. Denies any auditory or visual hallucinations but endorses photophobia and hyperacusis. Some nausea and vomiting. Also complains of left-sided rib pain at site of previous fracture suffered during fall approximately 2 weeks ago. Denies chest pain/pressure, palpitations. No fever, chills, abdominal pain. No hx of withdrawal seizures. Of note, patient was diagnosed with right upper extremity DVT on 05/31/2023 and has been on Eliquis since then, scheduled to be completed at the end of July 2023. Pt reports has not been taking any home medications for the past seven days. In the ED pt was afebrile but tachycardic up to 115 and mildly hypertensive up to 145/91. Labs were significant for AST 54 and ALT 52, otherwise grossly unremarkable. Leukocytosis. Stable H&H. No significant electrolyte abnormalities. CT?of head showed no intracranial hemorrhage or other acute intracranial pathology. Pt was treated with IVF, acetaminophen, ondansetron, thiamine, and started on phenobarb protocol. Pt will be admitted to the hospital for treatment and further evaluation of acute alcohol withdrawal. 37yo M with HTN, GERD, AUD, RUE DVT [May 2023] on apixaban, and MDD who was admitted for EtOH withdrawal. He was treated with phenobarbital taper. Addiction Medicine was consulted and Vivitrol was given 09/04/23. Acamprosate was continued. Eliquis was not restarted as he had already completed 3 months of treatment. He was transferred to an inpatient alcohol treatment center. Time Attestation Total time managing care of this patient today: 35 mintues. Discharge Coordination Time (in mins): 35 Quality: Safe Use of Opioids Does Pt have an Active Cancer Diagnosis on the Problem List?: No Quality: Stroke Does the patient have a stroke diagnosis?: No Physical Exam Vital Signs: Vital Signs: Last Vital Signs Temp 98.0 F 09/06/23 07:40 Pulse 65 09/06/23 07:40 Resp 20 09/06/23 07:40 BP 123/69 09/06/23 07:40 Pulse Ox 96 09/06/23 07:40 O2 Del Method Room Air 09/06/23 07:40 BMI result Body Mass Index 26.8 Gen: in no acute distress HEENT: sclera anicteric, moist mucus membranes Neck: supple Lungs: clear to auscultation bilaterally Heart: regular rate and rhythm, no murmurs Abd: soft, non-tender, non-distended Ext: no edema Skin: warm/well-perfused Neuro: alert and oriented x3, no focal findings Psych: appropriate affect DS: Data Data Completed and Pending Completed studies during hospitalization [Text1]: Laboratory Results WBC 5.9 X10*3/uL (4.8-10.8) 09/02/23 11:21 RBC 4.99 X10*6/uL (4.60-5.80) 09/02/23 11:21 Hgb 14.3 g/dl (14.0-18.0) 09/02/23 11:21 Hct 41.4 % (42.0-52.0) L 09/02/23 11:21 MCV 83.0 fL (80.0-98.0) 09/02/23 11:21 MCH 28.7 pg (27.0-33.0) 09/02/23 11:21 MCHC 34.5 g/dl (31.0-36.0) 09/02/23 11:21 RDW 15.3 % (11.0-16.0) 09/02/23 11:21 Plt Count 181 X10*3/uL (160-400) 09/02/23 11:21 MPV 9.5 fL (9.4-12.4) 09/02/23 11:21 Immature Gran % (Auto) 0.3 % (0.0-0.4) 09/02/23 11:21 Neut % (Auto) 62.0 % (45-73) 09/02/23 11:21 Lymph % (Auto) 29.8 % (20-40) 09/02/23 11:21 Lamb % (Auto) 6.5 % (2-11) 09/02/23 11:21 Eos % (Auto) 0.5 % (0-4) 09/02/23 11:21 Baso % (Auto) 0.9 % (0-2) 09/02/23 11:21 Lymph # (Auto) 1.8 X10*3/uL (1.2-4.9) 09/02/23 11:21 Lamb # (Auto) 0.4 X10*3/uL (0.1-1.2) 09/02/23 11:21 Eos # (Auto) 0.0 X10*3/uL (0.0-0.4) 09/02/23 11:21 Baso # (Auto) 0.1 X10*3/uL (0.0-0.2) 09/02/23 11:21 Abs Immat Gran (auto) 0.02 X10*3/uL (0.00-0.03) 09/02/23 11:21 Absolute Neuts (auto) 3.7 x10*3/uL (2.0-8.3) 09/02/23 11:21 Absolute Nucleated RBC 0.000 X10*3/uL (0.0-0.012) 09/02/23 11:21 Nucleated RBC % (auto) 0.0 /100WBC (0.0-0.2) 09/02/23 11:21 Hold Purple Top SEE NOTE 09/05/23 06:30 Sodium 136 mmol/L (135-145) 09/05/23 06:30 Potassium 3.4 mmol/L (3.3-5.1) 09/05/23 06:30 Chloride 103 mmol/L (96-108) 09/05/23 06:30 Carbon Dioxide 24 mmol/L (22-29) 09/05/23 06:30 Anion Gap 12 (12-20) 09/05/23 06:30 BUN 12 mg/dL (9-16) 09/05/23 06:30 Creatinine 0.81 mg/dL (0.5-1.4) 09/05/23 06:30 Estim Creat Clear Calc 120.8 09/05/23 06:30 Estimated GFR > 60 09/05/23 06:30 Random Glucose 105 mg/dL (60-115) 09/05/23 06:30 Calcium 9.7 mg/dL (8.4-10.2) 09/05/23 06:30 Magnesium 2.1 mg/dL (1.6-2.6) 09/05/23 06:30 Total Bilirubin 0.3 mg/dL (0.0-1.0) 09/02/23 11:21 AST 54 U/L (5-37) H 09/02/23 11:21 ALT 52 U/L (0-40) H 09/02/23 11:21 Alkaline Phosphatase 77 U/L (39-117) 09/02/23 11:21 Total Protein 8.2 g/dL (6.5-8.0) H 09/02/23 11:21 Albumin 4.5 g/dL (3.5-5.0) 09/02/23 11:21 Lipase 26 U/L (8-78) 09/02/23 11:21 Urine Opiates Screen Not Detected (Not Detect) 09/02/23 14:48 Urine Fentanyl Screen Not Detected (Not Detect) 09/02/23 14:48 Ur Barbiturates Screen POSITIVE (Not Detect) H 09/02/23 14:48 Ur Phencyclidine Scrn Not Detected (Not Detect) 09/02/23 14:48 Ur Amphetamines Screen Not Detected (Not Detect) 09/02/23 14:48 U Benzodiazepines Scrn POSITIVE (Not Detect) H 09/02/23 14:48 Urine Cocaine Screen Not Detected (Not Detect) 09/02/23 14:48 U Marijuana (THC) Screen Not Detected (Not Detect) 09/02/23 14:[address] 09/02/23 12:14 IMPRESSION: No intracranial hemorrhage or other acute intracranial pathology. Lumbar Spine X-Ray 09/03/23 11:30 IMPRESSION: Unremarkable examination. Discharge Plan Discharge Anticipated Discharge Date/Time: 09/06/23 10:58 Patient Disposition: Xfer Other Discharge Diagnosis: alcohol withdrawal, alcohol use disorder Referrals: Physician,Unknown J [Primary Care Provider] - 1 Week Discharge Medications: New Vivitrol 380 mg Suspension,Extended Rel Recon 380 mg IM Q28D Qty: 1 0RF Continued acamprosate 333 mg tablet,delayed release (DR/EC) 666 mg PO TID Qty: 180 0RF fluoxetine 40 mg capsule 40 mg PO DAILY Qty: 30 0RF trazodone 50 mg tablet 50 mg PO BEDTIME Qty: 30 0RF buspirone 30 mg tablet 30 mg PO BID Discontinued Eliquis 5 mg Tablet 5 mg PO BID Qty: 60 3RF Discharge Orders: Discharge Order (Routine); Ordered 09/06/23 Ordered By: Sunday Murillo Diet: Advance to usual diet Activity on Discharge: As tolerated Stand Alone Forms: Patient Portal Discharge page Print Language: Lao Care Plan Goals: sobriety Health Concerns: alcohol withdrawal, alcohol use disorder Plan of Treatment: transfer to [facility] for inpatient alcohol disorder treatment continue Campral Vivitrol Assessment: See Discharge Summary.
[2023-09-06] MEDS: busPIRone HCl 10 MG TABLET 30 MG PO (09:38)
[2023-09-06] MEDS: Lidocaine 4 % Patch ADH..PATCH 2 PATCH TRANSDERMA (09:38)
[2023-09-06] MEDS: Acamprosate Calcium 333 MG TABLET.DR 666 MG PO (09:38)
[2023-09-06] MEDS: FLUoxetine HCl 20 MG CAPSULE 40 MG PO (09:38)
[2023-09-06] MEDS: Famotidine 20 MG TABLET PO (09:39)
[2023-09-06] MEDS: 0.9 % Sodium Chloride Flush 3 ML SYRINGE IVFLUSH (09:39)
[2023-09-06] MEDS: LORazepam 1 MG TABLET PO (10:11)
--- NOTE | 2023-09-06 11:49 | MHC.RECOVRN ---
Met with pt. in 472-1 this AM to follow up and provide support.? Pt awake, alert, easily engages in conversation. Pt denies any W/D other than Anxiety and is receiving medication ordered with good effect. Pt is awaiting call back form [facility] for open bed and then he will receive his D/C. ? Pt denies other concerns at this time.? T/w available as needed. Add: Pt was D/C at approx. 10AM to [facility].
== END 2023-09-06 11:37 | disposition other institution (70) | DRG 775 ==
LOC: HO.ED 14:40 → HO.EDOVER 15:37 → HO.IMC 20:52
PROVIDERS: Emergency Medicine; Admitting Provider Student in an Organized Health Care Education/Training Program; Emergency Provider Emergency Medicine; PCP Internal Medicine; Visit Provider Family Medicine
DX: F10.239 Alcohol dependence with withdrawal, unspecified (principal); F10.229 Alcohol dependence with intoxication, unspecified; F32.9 Major depressive disorder, single episode, unspecified; I10 Essential (primary) hypertension; K21.9 Gastro-esophageal reflux disease without esophagitis; Z86.718 Personal history of other venous thrombosis and embolism; Z79.01 Long term (current) use of anticoagulants; Z79.899 Other long term (current) drug therapy
CPT/HCPCS: 36415; 70450; 72100; 80048; 80053; 80307; 83690; 83735; 85025; 99285; J1650; J2060; J2315; J2405; J2560; J3411; J7120

== ENCOUNTER → 2023-09-02 15:16 | Outpatient (BNV) | payer OTHER, SELFPAY | PROVIDERS: Admitting Provider Student in an Organized Health Care Education/Training Program; Emergency Provider Emergency Medicine; Visit Provider Student in an Organized Health Care Education/Training Program | DX: F10.939 Alcohol use, unspecified with withdrawal, unspecified (principal); F10.20 Alcohol dependence, uncomplicated; Z86.718 Personal history of other venous thrombosis and embolism | CPT/HCPCS: 99223; 99232; 99239 ==

== ENCOUNTER 2023-10-08 23:58 | Inpatient (IN) | payer OTHER, SELFPAY ==
--- NOTE | ~2023-10-08 | XR_ITS ---
EXAMINATION: XR CHEST CLINICAL INFORMATION: Elevated white blood cell count, alcohol withdrawal. COMPARISON: Chest radiograph 08/04/2023. TECHNIQUE: 2 views of the chest were obtained. FINDINGS: Normal appearance of the cardiomediastinal silhouette. No focal airspace opacities, pleural effusion or pneumothorax. No evidence of pulmonary edema. Callus formation around healed fractures in the inferior right chest. No acute osseous findings. Mild thoracic spondylosis. XR/XR chest 2V IMPRESSION: 1. No acute cardiopulmonary findings. 2. Callus formation associated to healed right-sided rib fractures.
[2023-10-09] VITALS (14 sets, daily range): BP systolic 110–151; BP diastolic 67–100; PULSE 111–139; RESP 16–24; TEMP 36.5–38.2; O2SAT 88–99; BMI 28.1
--- NOTE | 2023-10-09 | ECG_ITS ---
Test Reason : ELEVATED HEART RATE Blood Pressure : / mmHG Vent. Rate : 121 BPM Atrial Rate : 121 BPM P-R Int : 154 ms QRS Dur : 082 ms QT Int : 336 ms P-R-T Axes : 038 021 027 degrees QTc Int : 477 ms Sinus tachycardia Otherwise normal ECG When compared with ECG of 04-AUG-2023 01:01, No significant change was found Referred By: Jessie Adams Electronically Signed By:Librado Chanel
--- NOTE | 2023-10-09 00:36 | ED.ALCOHOL ---
HPI - Alcohol General Chief Complaint: ETOH/Substance Use Stated Complaint: ETOH Time Seen by Provider: 10/09/23 00:27 Source: patient and EMS Mode of arrival: EMS Limitations: other (Intoxicated) History of Present Illness HPI narrative: Patient comes to the emergency room complaining of alcohol intoxication and seeking detox. Patient complaining of nausea. Denies SI or HI. Denies any falls or any injuries. Patient states that he was recently discharged from a 30 day program. Patient has been binge drinking for 2 days. Patient states that he is admits that he drank 1 gal of vodka in the last couple of days Related Data Home Medications ?Medication ?Instructions ?Recorded ?Confirmed buspirone 30 mg tablet 30 mg PO BID 09/02/23 09/02/23 Previous Rx's ?Medication ?Instructions ?Recorded acamprosate 333 mg tablet,delayed 666 mg (2 x 333 mg) PO TID #180 07/09/23 release tabs fluoxetine 40 mg capsule 40 mg PO DAILY #30 caps 07/09/23 trazodone 50 mg tablet 50 mg PO BEDTIME #30 tabs 07/09/23 naltrexone microspheres 380 mg 380 mg IM Q28D #1 ea 09/06/23 intramuscular suspension,extended release (Vivitrol) Allergies Allergy/AdvReac Type Severity Reaction Status Date / Time No Known Allergies Allergy Unknown UNKNOWN Verified 10/09/23 00:24 [NO KNOWN ALLERGIES] Review of Systems Review of Systems: Constitutional : No Weight loss, No Fever, No Chills, No Night Sweats, No Fatigue, No Malaise ENT/Mouth : No Hearing loss, No Ear Pain, No Nasal Congestion, No Sinus Pain, No Hoarseness, No sore throat, No Rhinorrhea, No Swallowing Difficulty Eyes: No Eye Pain, No Swelling, No Redness, No Foreign Body, No Discharge, No Vision Changes Cardiovascular : No Chest Pain, No SOB, No Dyspnea on Exertion, No Orthopnea, No Edema, No Palpitations Respiratory : No Cough, No Sputum, No Wheezing, No Smoke Exposure, No Dyspnea Gastrointestinal : No Nausea, No Vomiting, No Diarrhea, No Constipation, No abdominal Pain, No Hematochezia, No Melena Genitourinary : no irregular bleeding, No Dysuria, No Urinary Frequency, No Hematuria, No Urinary Incontinence, No Urgency, No Flank Pain, No Urinary Flow Changes, No Hesitancy Musculoskeletal : No joint pain, No Myalgias, No Joint Swelling Skin : No Skin Lesions, No rash Neuro : No Weakness, No Numbness, No Paresthesias, No Loss of Consciousness, No Dizziness, No Headache Psych : No Anxiety/Panic, No Depression, No SI/HI/AH/VH, seeking detox, admits to ETOH abuse Heme/Lymph: No Bruising, No Bleeding,No Lymphadenopathy Endocrine : No Polyuria, No Polydipsia, No Temperature Intolerance [facility] Past Medical History Medical History Deep vein thrombosis, upper right extremity Alcohol use disorder, severe, dependence Alcohol abuse Elevated LFTs Recurrent major depression-severe Alcohol withdrawal syndrome Hypertension Anxiety and depression Psychiatric disturbance Family History Family History Other Lung cancer Social History Social History Household Members: None Housing: House Do you presently have visiting nurse or other home services: No Alcohol intake: current Alcohol intake frequency: 3 or more drinks per day Alcohol type: hard liquor Comment: patient refusing alarms Patient Tobacco Use Status: Never used Tobacco e-Cigarette/Vaping Use: Never Used Second Hand Smoke Exposure: No Substance Use Type: Marijuana Advance Directives Date on File: 01/08/21 service: No Current occupational status: unemployed Sexual orientation: Straight/Heterosexual Physical Exam ED Vital Signs: Vital Signs - 24 hr 10/09/23 00:20 10/09/23 00:23 Temperature 97.8 F 97.8 F Pulse Rate 138 H 138 H Respiratory Rate 17 16 Blood Pressure 131/82 131/82 Pulse Oximetry 98 98 Oxygen Delivery Method Room Air Room Air BMI result Body Mass Index 28.1 Const Other: Appearance: Alert. Intoxicated, able to talk, bit slurred, requesting detox Eyes: Pupils equal, round and reactive to light. ENT: Pharynx normal. Neck: Normal inspection. Neck supple. No lymph nodes noted. No crepitus CVS: Normal heart rate and rhythm. Pulses normal. Normal S1 and S2 Respiratory: No respiratory distress. Breath sounds normal. No Wheezing. No rales Abdomen: Soft and nontender. No rigidity. No distention. Skin: Skin warm and dry. Normal skin color. Normal skin turgor. Extremities: No lower extremity edema. No Lacerations. No Rash Neuro: . CN 2 through 12 grossly intact Psych: calm, cooperative, intoxicated Course Course Course Narrative: -of patient's labs pending -care team consult pending -patient not SI or HI, no than Section 12 -EMS gave the patient IV fluids, Zofran, here in the ED patient getting 1 mg of Ativan and Compazine for nausea. Medical Decision Making Differential Diagnosis Differential Diagnoses: The differential diagnosis associated with the presentation includes (Alcohol intoxication, polysubstance abuse, anxiety/depression) Admission/Observation Consideration of admission/observation: Escalation of care including admission/observation considered (Patient is under physician of olivia, metabolize to freedom, waiting for the care team to evaluate the patient and helping him to get into detox) Discharge Plan Discharge Clinical Impression: Alcohol use disorder, severe, dependence Patient Disposition: Still a Patient Prescriptions: No Action acamprosate 333 mg tablet,delayed release (DR/EC) 666 mg PO TID Qty: 180 0RF fluoxetine 40 mg capsule 40 mg PO DAILY Qty: 30 0RF trazodone 50 mg tablet 50 mg PO BEDTIME Qty: 30 0RF buspirone 30 mg tablet 30 mg PO BID Vivitrol 380 mg Suspension,Extended Rel Recon 380 mg IM Q28D Qty: 1 0RF Print Language: Occitan
[2023-10-09] MEDS: LORazepam 2 MG/ML VIAL 1 MG IVPUSH (00:54)
[2023-10-09] MEDS: Prochlorperazine Edisylate 10 MG/2 ML VIAL 5 MG IVPUSH (00:57)
[2023-10-09] MEDS: 0.9 % Sodium Chloride 1,000 ML 999 ML IVCONT ×2 (00:58→06:27)
[2023-10-09 01:06] LABS: Alanine Aminotransferase 48 U/L (0-40); Albumin Level 5.1 g/dL (3.5-5.0); Alkaline Phosphatase 86 U/L (39-117); Anion Gap 35 (12-20); Aspartate Amino Transferase 48 U/L (5-37); Bilirubin Total 0.4 mg/dL (0.0-1.0); Blood Urea Nitrogen 15 mg/dL (9-16); Calcium 9.6 mg/dL (8.4-10.2); Carbon Dioxide 12 mmol/L (22-29); Chloride 101 mmol/L (96-108); Estimated Glomerular Filt Rate > 60; Ethanol 286 mg/dL; Glucose Random 90 mg/dL (60-115); Potassium 4.1 mmol/L (3.3-5.1); Sodium 144 mmol/L (135-145); Total Protein 8.9 g/dL (6.5-8.0)
[2023-10-09 01:07] LABS: Basophils Absolute Auto 0.2 X10*3/uL (0.0-0.2); Basophils Percent Auto 0.7 % (0-2); Hematocrit 50.5 % (42.0-52.0); Hemoglobin 17.3 g/dl (14.0-18.0); Imm Gran Abs Auto 0.27 X10*3/uL (0.00-0.03); Imm Gran Pct Auto 1.1 % (0.0-0.4); Lymphocytes Absolute Auto 2.4 X10*3/uL (1.2-4.9); Lymphocytes Percent Auto 9.5 % (20-40); MANUAL DIFF FLAG SCAN; Mean Corpuscular HGB Conc 34.3 g/dl (31.0-36.0); Mean Corpuscular Hemoglobin 29.1 pg (27.0-33.0); Monocytes Absolute Auto 1.5 X10*3/uL (0.1-1.2); Monocytes Percent Auto 6.2 % (2-11); Neutrophils Absolute Auto 20.6 x10*3/uL (2.0-8.3); Neutrophils Percent Auto 82.5 % (45-73); Platelet Count 229 X10*3/uL (160-400); Red Blood Count 5.94 X10*6/uL (4.60-5.80); Red Cell Distribution Width 14.2 % (11.0-16.0); SCAN SMEAR FLAG 1
[2023-10-09 01:47] LABS: SLIDE REVIEW VERIFIED
[2023-10-09] MEDS: ondansetron HCL 4 MG/2 ML VIAL IVPUSH ×2 (03:20→07:10)
[2023-10-09] MEDS: LORazepam 1 MG TABLET 2 MG PO ×2 (03:20→06:27)
[2023-10-09] MEDS: diphenhydrAMINE HCL 25 MG CAPSULE 50 MG PO (06:27)
--- NOTE | 2023-10-09 07:34 | PC.NURSE ---
pt is alert and oriented, skin pwd but slightly flushed in the face, pt reports just getting out of 30 day detox, and last couple of days has been drinking-last drink was about 0000, no visible tremor but vomiting and reports abd pain 7/10. Hr elevated at 136
[2023-10-09] MEDS: 0.9 % Sodium Chloride 1,000 ML 999 ML IV ×2 (08:02→10:48)
[2023-10-09] MEDS: PHENobarbitaL sodium 130 MG/ML VIAL 680 MG IM (08:17)
[2023-10-09 08:45] LABS: Anion Gap 31 (12-20); Blood Urea Nitrogen 14 mg/dL (9-16); Calcium 8.8 mg/dL (8.4-10.2); Carbon Dioxide 7 mmol/L (22-29); Chloride 105 mmol/L (96-108); Creatinine Clr Calc Pharmacy 88.1; Estimated Glomerular Filt Rate > 60; Glucose Random 159 mg/dL (60-115); Lactic Acid 11.8 mmol/L (0.5-2.0); Potassium 5.2 mmol/L (3.3-5.1); Sodium 138 mmol/L (135-145)
[2023-10-09 08:57] LABS: Appearance Urine Clear; Color Urine Yellow; Glucose Urine UA Negative (Negative); Leukocyte Esterase Urine Negative (Negative); Nitrite Urine Negative (Negative); Specific Gravity - Urine 1.015 (1.005-1.025); UMIC TRIGGER UACC YES; Urine Blood Trace (Negative); Urine Ketones 40 mg/dL (Negative); Urine Protein 30 (1+) mg/dL (Neg-Trace)
[2023-10-09 08:59] LABS: Bacteria Urine None Seen (None Seen); RBC Urine 0-2 /HPF (0-2); Squamous Epithelial Cell Urine 0-2 /HPF (0-2); WBC Urine 0-5 /HPF (0-5)
[2023-10-09 09:06] LABS: Amphetamine Screen Urine Not Detected (Not Detect); Barbiturates, Urine Not Detected (Not Detect); Benzodiazepines Screen Urine Not Detected (Not Detect); Buprenorphine Scr Not Detected (Not Detect); Cannabinoid Screen Urine Not Detected (Not Detect); Cocaine Screen Urine Not Detected (Not Detect); Fentanyl, urine Not Detected (Not Detect); Methadone Screen, Urine Not Detected (Not Detect); Opiate Screen Urine Not Detected (Not Detect); Oxycodone Screen Urine Not Detected (Not Detect); Phencyclidine Screen Urine Not Detected (Not Detect)
[2023-10-09] MEDS: chlordiazePOXIDE HCl 25 MG CAPSULE 100 MG PO (09:07)
--- NOTE | 2023-10-09 09:46 | PC.NURSE ---
pt is resting at this time, but oxygen level dropping to 88% on room air, pt put on oxygen via nasal cannual at 2l
[2023-10-09 10:14] LABS: Reflex Lactate? Lactic Acid Added
--- NOTE | 2023-10-09 10:17 | PC.NURSE ---
pt still dropping in oxygen saturation on the 2l sating at 91% pt increased to 3l vai nasal missael menjivar aware
--- NOTE | 2023-10-09 10:30 | PC.NURSE ---
phenobarbital 130mg iv was never give because as of now [facility] does not have a policy in place to be administered via IV route, Laura from pharmacy and ED educator Anupama are aware of this incident are working on figuring things out pharmacy is supposed to come to the ED and figure out when the pt is do and what dose of the phenobarbital this patient is supposed to receive since we cant give it IV
[2023-10-09] MEDS: Lactated Ringers 1,000 ML 999 ML IV (10:54)
[2023-10-09] MEDS: Acetaminophen 325 MG TABLET 650 MG PO (10:54)
[2023-10-09 11:21] LABS: VBG HCO3 13 mmol/L (22-26); VBG pCO2 27 mmHg; VBG pH 7.29 (7.32-7.43); VBG pO2 87 mmHg
[2023-10-09 11:21] LABS: Venous Blood Gas Refer to POC result
[2023-10-09 11:37] LABS: Anion Gap 20 (12-20); Blood Urea Nitrogen 13 mg/dL (9-16); Calcium 8.7 mg/dL (8.4-10.2); Carbon Dioxide 14 mmol/L (22-29); Chloride 103 mmol/L (96-108); Creatinine Clr Calc Pharmacy 96.1; Estimated Glomerular Filt Rate > 60; Glucose Random 154 mg/dL (60-115); Potassium 4.6 mmol/L (3.3-5.1); Sodium 132 mmol/L (135-145)
--- NOTE | 2023-10-09 11:50 | P.HPHOSP_ITS ---
History of Present Illness Date of Service: 10/09/23 Attending physician on admission: Cheng [facility] Chief Complaint: Alcohol withdrawal Pt is a 37-year-old male with a PMH significant for?HTN, GERD, alcohol use disorder, RUE DVT previously on Eliquis, and major depressive disorder who presents to the ED for evaluation of alcohol intoxication seeking detox. Patient has long history of alcohol use disorder with multiple admissions for alcohol withdrawal, last admitted to this hospital 1 month prior on 09/02/2023. Pt is currently somnolent but arousable, answering appropriately but vaguely and imprecisely. After last discharge patient went to [facility] for treatment and detox for 2 weeks, after which he then received treatment at [facility]. However, patient states that he has been ?hitting it hard? the past few days, drinking vodka and [place] beer. Patient then decided to present to the ED for detox. Has been experiencing nausea and vomiting, and sore throat secondary to vomiting. Also reports upper extremity tremors. Last drink last night prior to presentation. Denies auditory or visual hallucinations, no hyperacusis or photophobia. No chest pain/pressure, palpitations. Denies shortness of breath or cough. No fever, chills, abdominal pain. Patient reports that he has not been eating or drinking anything other than alcohol for the past few days. In the ED pt with elevated temperature of 100.7 degrees, tachycardia up to 139, and hypoxic as low as 88% on RA. Labs were significant for leukocytosis of 25.0, bicarb as low as 7, anion gap is eyes 35, lactic acid 11.8 with repeat 7.0, AST 48, ALT 48, VB pH 7.29 and VB Ji bicarb 13. UA negative for UTI. Ethyl alcohol 286 at midnight. CXR showed no acute cardiopulmonary findings though showed likely healed right-sided rib fractures. EKG demonstrated sinus tachycardia of 121 without evidence of significant ST elevations or depressions. Pt was treated with Ativan, Compazine, ondansetron, diphenhydramine, acetaminophen, ibuprofen, IVF x5 L, and started on phenobarb protocol. Pt will be admitted to the hospital for treatment and further evaluation of alcoholic starvation ketoacidosis and impending alcohol withdrawal. Review of Systems 2 Review of Systems: Tremors Nausea and vomiting Sore throat No auditory or visual hallucinations, hyperacusis, or photophobia Denies fever, chills, abdominal pain No chest pain/pressure, palpitations Denies shortness of breath or cough PMF Medical History Deep vein thrombosis, upper right extremity Alcohol use disorder, severe, dependence Alcohol abuse Elevated LFTs Recurrent major depression-severe Alcohol withdrawal syndrome Hypertension Anxiety and depression Psychiatric disturbance Family History Other Lung cancer Social History Household Members: None Housing: House Do you presently have visiting nurse or other home services: No Alcohol intake: current Alcohol intake frequency: 3 or more drinks per day Alcohol type: hard liquor Comment: patient refusing alarms Patient Tobacco Use Status: Never used Tobacco e-Cigarette/Vaping Use: Never Used Second Hand Smoke Exposure: No Substance Use Type: Marijuana Currently Displaying Signs/Symptoms of Drug Intoxication Withdrawal: No Advance Directives: Yes Advance Directives on File: Yes Advance Directives Date on File: 01/08/21 Do you have a plan to hurt others: No Plan Nutrition Risks: No Nutritional Risk service: No Current occupational status: unemployed Sexual orientation: Straight/Heterosexual Meds Allergies Allergy/AdvReac Type Severity Reaction Status Date / Time No Known Allergies Allergy Unknown UNKNOWN Verified 10/09/23 00:24 [NO KNOWN ALLERGIES] Active Medications: Current Medications Pharmacy Consult (Consult Rx Etoh Phenob Im/Po) 1 each MISCELLANE ONCE PRN; Protocol PRN Reason: Consult order Phenobarbital (Phenobarbital 15 Mg Tablet) 45 mg PO BID [facility]; Protocol Stop: 10/11/23 09:01 Phenobarbital (Phenobarbital 30 Mg Tablet) 30 mg PO DAILY [facility]; Protocol Stop: 10/15/23 09:01 Phenobarbital (Phenobarbital 30 Mg Tablet) 30 mg PO BID [facility]; Protocol Stop: 10/13/23 09:01 Home Medications ?Medication ?Instructions ?Recorded ?Confirmed ?Last Taken ?Type buspirone 30 mg tablet 30 mg PO BID 09/02/23 10/09/23 1 Week Ago History ~08/26/23 Physical Exam 2 Vital Signs and Narrative: Vital Signs: Last Vital Signs Temp 100.7 F H 10/09/23 10:48 Pulse 122 H 10/09/23 11:23 Resp 18 10/09/23 11:23 BP 122/73 10/09/23 11:23 Pulse Ox 96 10/09/23 11:23 O2 Del Method Room Air 10/09/23 11:23 O2 Flow Rate 2 10/09/23 10:17 BMI result Body Mass Index 28.1 Constitutional: Somnolent but arousable, answering appropriately but vaguely and imprecisely. In no acute distress. Mental Status: Oriented to person, place and time. Eyes: Pupils are equal, round, and reactive to light. Ear, Nose, and Throat: Oropharynx clear, mucous membranes moist. Ears and nose without deformities. Trachea midline. Respiratory: Clear to auscultation bilaterally. No wheezing, rales, or rhonchi. Cardiovascular: S1, S2, tachycardic. No murmurs, rubs, or gallops. Gastrointestinal: Abdomen soft, non-tender, non-distended. Normal bowel sounds. Neurologic: Cranial nerves II-XII are grossly intact bilaterally. No focal neurological deficits. Moves all extremities spontaneously. Mild upper extremity tremors noted. Skin: Warm, dry. Extremities: No edema. Results Labs 10/10/23 06:19 10/10/23 06:19 Labs: Laboratory Results - last 24 hr 10/09/23 10/09/23 10/09/23 00:43 08:10 08:47 MCV 85.0 MCH 29.1 MCHC 34.3 RDW 14.2 Plt Count 229 D MPV 10.0 Immature Gran % (Auto) 1.1 H Neut % (Auto) 82.5 H Lymph % (Auto) 9.5 L [place] % (Auto) 6.2 Eos % (Auto) 0.0 Baso % (Auto) 0.7 Lymph # (Auto) 2.4 [place] # (Auto) 1.5 H Eos # (Auto) 0.0 Baso # (Auto) 0.2 Abs Immat Gran (auto) 0.27 H Absolute Neuts (auto) 20.6 H Absolute Nucleated RBC 0.000 Nucleated RBC % (auto) 0.0 Smear Tech's Comments VERIFIED VBG pH VBG pCO2 VBG pO2 VBG HCO3 VBG O2 Saturation VBG Base Excess Anion Gap 35 H 31 H Estim Creat Clear Calc 82.0 88.1 Estimated GFR > 60 > 60 Random Glucose 90 159 H Lactic Acid 11.8 H* Lactic Acid F/U @ 2Hr Calcium 9.6 8.8 D Total Bilirubin 0.4 AST 48 H ALT 48 H Alkaline Phosphatase 86 Total Protein 8.9 H Albumin 5.1 H Urine Color Yellow Urine Appearance Clear Urine pH 5.0 Ur Specific [place] 1.015 Urine Protein 30 (1+) H Urine Glucose (UA) Negative Urine Ketones 40 Urine Blood Trace H Urine Nitrite Negative Ur Leukocyte Esterase Negative Urine RBC 0-2 Urine WBC 0-5 Ur Squamous Epith Cells 0-2 Urine Bacteria None Seen Hyaline Casts 3-5 Urine Opiates Screen Not Detected Ur Buprenorphine Scrn Not Detected Ur Oxycodone Screen Not Detected Urine Methadone Screen Not Detected Urine Fentanyl Screen Not Detected Ur Barbiturates Screen Not Detected Ur Phencyclidine Scrn Not Detected Ur Amphetamines Screen Not Detected U Benzodiazepines Scrn Not Detected Urine Cocaine Screen Not Detected U Marijuana (THC) Screen Not Detected Ethyl Alcohol 286 10/09/23 10/09/23 10/09/23 10:31 11:10 11:14 MCV MCH MCHC RDW Plt Count MPV Immature Gran % (Auto) Neut % (Auto) Lymph % (Auto) [place] % (Auto) Eos % (Auto) Baso % (Auto) Lymph # (Auto) [place] # (Auto) Eos # (Auto) Baso # (Auto) Abs Immat Gran (auto) Absolute Neuts (auto) Absolute Nucleated RBC Nucleated RBC % (auto) Smear Tech's Comments VBG pH 7.29 L VBG pCO2 27 VBG pO2 87 VBG HCO3 13 L VBG O2 Saturation 97.0 VBG Base Excess -11.0 Anion Gap 20 Estim Creat Clear Calc 96.1 Estimated GFR > 60 Random Glucose 154 H Lactic Acid Lactic Acid F/U @ 2Hr 7.0 H* Calcium 8.7 Total Bilirubin AST ALT Alkaline Phosphatase Total Protein Albumin Urine Color Urine Appearance Urine pH Ur Specific [place] Urine Protein Urine Glucose (UA) Urine Ketones Urine Blood Urine Nitrite Ur Leukocyte Esterase Urine RBC Urine WBC Ur Squamous Epith Cells Urine Bacteria Hyaline Casts Urine Opiates Screen Ur Buprenorphine Scrn Ur Oxycodone Screen Urine Methadone Screen Urine Fentanyl Screen Ur Barbiturates Screen Ur Phencyclidine Scrn Ur Amphetamines Screen U Benzodiazepines Scrn Urine Cocaine Screen U Marijuana (THC) Screen Ethyl Alcohol Imaging Radiologist's Impressions: Impressions Chest X-Ray 10/09/23 08:35 IMPRESSION: 1. No acute cardiopulmonary findings. 2. Callus formation associated to healed right-sided rib fractures. Assessment and Plan (1) Alcohol withdrawal syndrome: Status: Acute (2) Alcohol use disorder, severe, dependence: Status: Acute (3) Starvation ketoacidosis: Status: Acute Plan Pt is a 37-year-old male with a PMH significant for?HTN, GERD, alcohol use disorder, RUE DVT previously on Eliquis, and major depressive disorder who presents to the ED for evaluation of alcohol intoxication seeking detox. Pt will be admitted to the hospital for treatment and further evaluation of alcoholic starvation ketoacidosis and impending alcohol withdrawal. Alcoholic starvation ketoacidosis Patient not eating or drinking anything but alcohol the past few days Bicarb as low as 7, anion gap as high as 35, lactic acid 11.8, UA with ketones Improved with 5L IVF fluids to bicarb 14, anion gap closed to 20, lactic acid 7.0 No indication for bicarb at this time Follow BMP Alcohol use disorder with impending alcohol withdrawal Patient with long history of alcohol withdrawal Mild upper extremity tremors, N/V Patient given Ativan and started on phenobarb protocol in ED Continue Phenobarb protocol Daily multivitamin, folic acid 1mg, Thiamine 200 mg IV q.12 Famotidine 20 mg p.o. Follow Mag eleonora, BMP Has received 5L NC CIWA scale Seizure precautions Addiction medicine consult Monitor on telemetry Leukocytosis WBCs 25.0 at time of presentation Down trending to 18.7 after fluids Likely reactionary in the setting alcoholic starvation ketoacidosis in the setting of persistent nausea and vomiting No indication of bacterial infection at this time: No fever, CXR negative, UA negative Pt does not meet SIRS criteria: no clear infectious source at this time, tachycardia and lactic acidosis secondary to alcoholic starvation ketoacidosis Follow CBC Acute hypoxic respiratory failure, resolved In the setting of alcoholic starvation ketoacidosis Patient desatting into the upper 80s on RA, originally placed on 3L NC Currently satting at 94-98% on RA Currently no need for supplemental oxygen CXR negative, lungs CTA, suspicion low for aspiration pneumonia Hyperkalemia, resolved Patient's potassium mildly elevated at 5.2 In the setting of alcoholic starvation ketoacidosis Corrected with fluids, currently WNL at 4.6 Mood disorder Continue home meds Full Code Attending:?Dr. Vasquez DVT Prophylaxis: Lovenox Pt will require a hospitalization of at least two nights for treatment of?alcoholic starvation ketoacidosis and likely impending alcohol withdrawal. Given patient's significant lab abnormalities, long history of alcohol withdrawal and difficult detox is, patient require hospitalization for treatment with phenobarb protocol and close monitoring of labs and cardiac functioning. Quality Stroke Does the patient have a stroke diagnosis?: No VTE Prior VTE?: No VTE Risk Level:: Medical - moderate - high VTE Device Contraindication: Treatment Not Indicated VTE Drug Contraindication: N/A - Med Ordered
[2023-10-09] MEDS: PHENobarbitaL sodium 65 MG/ML VIAL IM (11:52)
[2023-10-09] MEDS: Ibuprofen 400 MG TABLET PO (11:52)
[2023-10-09 12:35] LABS: Reflex Lactate? 2 Y
[2023-10-09] MEDS: Famotidine 20 MG TABLET PO ×2 (13:02→21:07)
[2023-10-09] MEDS: Thiamine HCL 200 MG in 0.9 % Sodium Chloride 100 ML 204 MG IV (13:02)
[2023-10-09] MEDS: Enoxaparin Sodium 40 MG/0.4 ML SYRINGE SUBCUT (13:02)
[2023-10-09] MEDS: Folic Acid 1 MG TABLET PO (13:02)
[2023-10-09] MEDS: Multivitamin TABLET 1 TAB PO (13:02)
[2023-10-09 13:10] LABS: Lactic Acid 1.9 mmol/L (0.5-2.0)
[2023-10-09 13:18] LABS: Hematocrit 36.1 % (42.0-52.0); Mean Corpuscular HGB Conc 34.6 g/dl (31.0-36.0); Mean Corpuscular Hemoglobin 29.1 pg (27.0-33.0); Red Cell Distribution Width 14.1 % (11.0-16.0); White Blood Count 18.7 X10*3/uL (4.8-10.8)
[2023-10-09 13:24] LABS: Hemoglobin 12.5 g/dl (14.0-18.0)
[2023-10-09 13:42] LABS: Mean Platelet Volume 10.1 fL (9.4-12.4); Platelet Count 166 X10*3/uL (160-400)
[2023-10-09 14:20] LABS: Lipase 10 U/L (8-78)
--- NOTE | 2023-10-09 15:14 | PHA.MEDREC ---
Pharmacy Consult ? Medication Reconciliation Pharmacy has completed the medication reconciliation. Spoke to patient, he was able to confirm most medications but drifting in and out of sleep so was not able to confirm last dose. He said the last dose of vivitrol was given here at [facility] in August and he's waiting for an appointment for this month. I called [facility] and they do not have any record of him getting the injection last month Ema from [facility]- Pt Juan Diego.Ethan has not received a vivitrol injection at this location. Per [facility] nurse the pt received his last dose at a program in [place], [place] . There is a vivitrol in our in-patient pharmacy's fridge filled on 09/14/23 for him, and a pharmacy claim for it from [facility] in [place] on 10/05/23.
--- NOTE | 2023-10-09 15:35 | MHC.EDTECH ---
This Tech over for this patient at 15:00, Patient is resting is comfortably. Introduced myself to the patient and obtained vitals.
[2023-10-09] MEDS: FLUoxetine HCl 20 MG CAPSULE 40 MG PO (15:50)
[2023-10-09] MEDS: 0.9 % Sodium Chloride Flush 3 ML SYRINGE IVFLUSH (15:51)
--- NOTE | 2023-10-09 18:28 | MHC.EDTECH ---
Dinner Tray given to patient @[id number]
[2023-10-09] MEDS: PHENobarbitaL 15 MG TABLET 45 MG PO (21:07)
[2023-10-09] MEDS: busPIRone HCl 10 MG TABLET 30 MG PO (21:07)
[2023-10-09] MEDS: Acamprosate Calcium 333 MG TABLET.DR 666 MG PO (21:07)
[2023-10-09 22:19] LABS: Anion Gap 15 (12-20); Blood Urea Nitrogen 16 mg/dL (9-16); Calcium 9.3 mg/dL (8.4-10.2); Carbon Dioxide 21 mmol/L (22-29); Chloride 104 mmol/L (96-108); Creatinine Clr Calc Pharmacy 117.2; Estimated Glomerular Filt Rate > 60; Glucose Random 118 mg/dL (60-115); Potassium 3.5 mmol/L (3.3-5.1); Sodium 136 mmol/L (135-145)
--- NOTE | 2023-10-09 22:24 | MHC.EDTECH ---
Pt's belongings were located in the POD locker 12 @2618. Brought his belongings up to his room @2354 and placed on the chair. Belonging list updated.
[2023-10-10] VITALS: BP 123/59; BP 140/73; PULSE 104; PULSE 83; RESP 16; RESP 97; TEMP 36.3; TEMP 36.8; O2SAT 96; O2SAT 97
[2023-10-10] MEDS: Thiamine HCL 200 MG in 0.9 % Sodium Chloride 100 ML 204 MG IV ×2 (01:32→14:19)
[2023-10-10] MEDS: 0.9 % Sodium Chloride Flush 3 ML SYRINGE IVFLUSH ×4 (01:32→23:52)
[2023-10-10 04:00] VITALS: BP 137/68; PULSE 85; RESP 15; TEMP 36.8; O2SAT 96
[2023-10-10 06:58] LABS: Hematocrit 36.7 % (42.0-52.0); Hemoglobin 12.8 g/dl (14.0-18.0); Mean Corpuscular HGB Conc 34.9 g/dl (31.0-36.0); Mean Corpuscular Hemoglobin 28.6 pg (27.0-33.0); Mean Corpuscular Volume 82.1 fL (80.0-98.0); Mean Platelet Volume 9.9 fL (9.4-12.4); Platelet Count 135 X10*3/uL (160-400); Red Blood Count 4.47 X10*6/uL (4.60-5.80); Red Cell Distribution Width 13.9 % (11.0-16.0); White Blood Count 6.7 X10*3/uL (4.8-10.8)
[2023-10-10 07:16] LABS: Anion Gap 13 (12-20); Blood Urea Nitrogen 14 mg/dL (9-16); Calcium 9.3 mg/dL (8.4-10.2); Carbon Dioxide 24 mmol/L (22-29); Chloride 103 mmol/L (96-108); Estimated Glomerular Filt Rate > 60; Glucose Random 114 mg/dL (60-115); Magnesium 2.2 mg/dL (1.6-2.6); Potassium 3.4 mmol/L (3.3-5.1); Sodium 137 mmol/L (135-145)
[2023-10-10 07:28] VITALS: BP 137/66; PULSE 60; RESP 18; TEMP 37.6; O2SAT 97
[2023-10-10] MEDS: PHENobarbitaL 15 MG TABLET 45 MG PO ×2 (10:18→22:39)
[2023-10-10] MEDS: busPIRone HCl 10 MG TABLET 30 MG PO ×2 (10:18→22:39)
[2023-10-10] MEDS: FLUoxetine HCl 20 MG CAPSULE 40 MG PO (10:18)
[2023-10-10] MEDS: Acamprosate Calcium 333 MG TABLET.DR 666 MG PO ×3 (10:19→22:38)
[2023-10-10] MEDS: Folic Acid 1 MG TABLET PO (10:19)
[2023-10-10] MEDS: Famotidine 20 MG TABLET PO ×2 (10:19→22:39)
[2023-10-10] MEDS: Multivitamin TABLET 1 TAB PO (10:19)
--- NOTE | 2023-10-10 10:37 | P.PNIM_ITS ---
Subjective Subjective Date of Service: 10/10/23 Interval History: f/u on alcohol withdrawal, starvation ketocis doing well, ketocis resolved, minimal sings of withdrwal at this time Physical Exam 2 Vital Signs: Vital Signs: Last Vital Signs Temp 99.6 F 10/10/23 07:28 Pulse 60 10/10/23 07:28 Resp 18 10/10/23 07:28 BP 137/66 10/10/23 07:28 Pulse Ox 97 10/10/23 07:28 O2 Del Method Room Air 10/10/23 07:28 O2 Flow Rate 2 10/09/23 10:17 BMI result Body Mass Index 28.1 General: AO X 3, no acute distress Resp: CTA bilateral CVS: S1,S2,RRR GI: +BS, NT, no distention Skin: No rash Neuro: motor grossly intact Psych: appropriate affect Objective Data Active Medications Acamprosate (Acamprosate Calcium 333 Mg Tablet.) 666 mg PO TID REPLACED BY [facility] Last Admin: 10/10/23 10:19 Dose: 666 mg Documented By: LAURE Acetaminophen (Acetaminophen 325 Mg Tablet) 650 mg PO Q6H PRN PRN Reason: Pain, Mild (Pain Scale 1-3) Benzonatate (Benzonatate 100 Mg Capsule) 100 mg PO TID PRN PRN Reason: Cough Buspirone HCl (Buspirone Hcl 10 Mg Tablet) 30 mg PO BID REPLACED BY [facility] Last Admin: 10/10/23 10:18 Dose: 30 mg Documented By: LAURE Docusate Sodium (Docusate Sodium 100 Mg Capsule) 100 mg PO DAILY PRN PRN Reason: Constipation Enoxaparin Sodium (Enoxaparin Sodium 40 Mg/0.4 Ml Syringe) 40 mg SUBCUT Q24H REPLACED BY [facility] Last Admin: 10/09/23 13:02 Dose: 40 mg Documented By: DITOPARESH Famotidine (Famotidine 20 Mg Tablet) 20 mg PO BID REPLACED BY [facility] Last Admin: 10/10/23 10:19 Dose: 20 mg Documented By: LAURE Fluoxetine HCl (Fluoxetine Hcl 20 Mg Capsule) 40 mg PO DAILY REPLACED BY [facility] Last Admin: 10/10/23 10:18 Dose: 40 mg Documented By: LAURE Folic Acid (Folic Acid 1 Mg Tablet) 1 mg PO DAILY REPLACED BY [facility] Stop: 10/12/23 12:39 Last Admin: 10/10/23 10:19 Dose: 1 mg Documented By: LAURE Thiamine HCl 200 mg/ Sodium (Chloride) 102 mls @ 204 mls/hr IV Q12H REPLACED BY [facility] Last Infusion: 10/10/23 05:05 Dose: Infused Documented By: TRUONG Multivitamins/Vitamin C (Multivitamin Tablet) 1 tab PO DAILY REPLACED BY [facility] Stop: 10/12/23 12:39 Last Admin: 10/10/23 10:19 Dose: 1 tab Documented By: LAURE Ondansetron HCl (Ondansetron Hcl 4 Mg/2 Ml Vial) 4 mg IVPUSH Q8H PRN PRN Reason: Nausea and Vomiting Pharmacy Consult (Consult Rx Etoh Phenob Im/Po) 1 each MISCELLANE ONCE PRN; Protocol PRN Reason: Consult order Phenobarbital (Phenobarbital 15 Mg Tablet) 45 mg PO BID REPLACED BY [facility]; Protocol Stop: 10/11/23 09:01 Last Admin: 10/10/23 10:18 Dose: 45 mg Documented By: LAURE Phenobarbital (Phenobarbital 30 Mg Tablet) 30 mg PO DAILY REPLACED BY [facility]; Protocol Stop: 10/15/23 09:01 Phenobarbital (Phenobarbital 30 Mg Tablet) 30 mg PO BID REPLACED BY [facility]; Protocol Stop: 10/13/23 09:01 Sodium Chloride (0.9 % Sodium Chloride Flush 3 Ml Syringe) [facility] Last Admin: 10/10/23 10:19 Dose: 3 ml Documented By: LAURE Labs 10/10/23 06:19 10/10/23 06:19 Labs: Laboratory Results - last 24 hr 10/09/23 10/09/23 10/09/23 10:31 11:10 11:14 MCV MCH MCHC RDW Plt Count MPV Absolute Nucleated RBC Nucleated RBC % (auto) VBG pH 7.29 L VBG pCO2 27 VBG pO2 87 VBG HCO3 13 L VBG O2 Saturation 97.0 VBG Base Excess -11.0 Anion Gap 20 Estim Creat Clear Calc 96.1 Estimated GFR > 60 Random Glucose 154 H Lactic Acid Lactic Acid F/U @ 2Hr 7.0 H* Calcium 8.7 Magnesium Lipase 10 10/09/23 10/09/23 10/10/23 12:50 21:49 06:19 MCV 84.0 82.1 MCH 29.1 28.6 MCHC 34.6 34.9 RDW 14.1 13.9 Plt Count 166 D 135 L MPV 10.1 9.9 Absolute Nucleated RBC 0.000 0.000 Nucleated RBC % (auto) 0.0 0.0 VBG pH VBG pCO2 VBG pO2 VBG HCO3 VBG O2 Saturation VBG Base Excess Anion Gap 15 13 Estim Creat Clear Calc 117.2 127.0 Estimated GFR > 60 > 60 Random Glucose 118 H 114 Lactic Acid 1.9 Lactic Acid F/U @ 2Hr Calcium 9.3 D 9.3 Magnesium 2.2 Lipase Microbiology Microbiology Results: Microbiology 10/09/23 08:02 Blood Culture - Preliminary Blood - Venous No growth after 24 hours. 10/09/23 08:10 Blood Culture - Preliminary Blood - Venous No growth after 24 hours. Assessment and Plan (1) Starvation ketoacidosis: Status: Acute (2) Alcohol withdrawal syndrome: Status: Acute Plan Pt is a 37-year-old male with a PMH significant for?HTN, GERD, alcohol use disorder, RUE DVT previously on Eliquis, and major depressive disorder who presents to the ED for evaluation of alcohol intoxication seeking detox. Pt will be admitted to the hospital for treatment and further evaluation of alcoholic starvation ketoacidosis and impending alcohol withdrawal. Alcoholic starvation ketoacidosis-resolved with IVF, eating and drinking impending alcohol withdrawal alcohol use disorder -Addiction med consult -phenobarbital , folic acid and thiamine Leukocytosis--reactive, and resolved with IVF Acute hypoxic respiratory failure, CXR, CTA negative, likely related to above and resolved, 97% on room air now Hyperkalemia, 5.2, resolved Mood disorder Continue home meds Full Code DVT Prophylaxis: Lovenox need for inpt: alcohol withdrawal treatment with phenobarb, alcoholic ketoacidosis requiring ivf Quality Stroke Does the patient have a stroke diagnosis?: No VTE Prior VTE?: No VTE Risk Level:: Medical - moderate - high VTE Device Contraindication: Treatment Not Indicated VTE Drug Contraindication: N/A - Med Ordered
--- NOTE | 2023-10-10 11:51 | MHC.CM.PN ---
PT IS INDEPENDENT PLANS ON GOING TO OUTPT PROGRAM AT [facility] IN [place] WHEN DCD PT HAS OWN RIDE HGOME
[2023-10-10 12:00] VITALS: BP 135/77; PULSE 79; RESP 20; TEMP 36.9; O2SAT 97
[2023-10-10] MEDS: Enoxaparin Sodium 40 MG/0.4 ML SYRINGE SUBCUT (14:19)
[2023-10-10 15:00] VITALS: BP 142/93; PULSE 88; RESP 20; TEMP 36.9; O2SAT 97
[2023-10-10 20:00] VITALS: BP 135/78; PULSE 58; RESP 20; TEMP 37.4; O2SAT 98
--- NOTE | 2023-10-10 22:13 | PM.EVENT ---
Event Note Date of Service: 10/10/23 Event Note: Nurse reported 1/2 Gram positive cocci in clusters. Will initiate empiric IV abx Time Spent With Patient Time: Total time managing care of this patient today ____ minutes.
[2023-10-10] MEDS: Acetaminophen 325 MG TABLET 650 MG PO (22:38)
[2023-10-10] MEDS: vancomycin/NS 2,000 MG/500 ML PLAST..BAG 250 MG IV (23:45)
[2023-10-11] VITALS: BP 145/85; PULSE 73; RESP 20; TEMP 37; O2SAT 97
[2023-10-11] MEDS: Thiamine HCL 200 MG in 0.9 % Sodium Chloride 100 ML 204 MG IV ×2 (02:14→12:29)
[2023-10-11 04:00] VITALS: BP 143/86; PULSE 78; RESP 19; TEMP 37.3; O2SAT 99
[2023-10-11 06:46] LABS: Hematocrit 36.9 % (42.0-52.0); Hemoglobin 13.2 g/dl (14.0-18.0); Mean Corpuscular HGB Conc 35.8 g/dl (31.0-36.0); Mean Corpuscular Hemoglobin 28.9 pg (27.0-33.0); Mean Corpuscular Volume 80.7 fL (80.0-98.0); Mean Platelet Volume 9.6 fL (9.4-12.4); Platelet Count 130 X10*3/uL (160-400); Red Blood Count 4.57 X10*6/uL (4.60-5.80); Red Cell Distribution Width 13.5 % (11.0-16.0); White Blood Count 4.7 X10*3/uL (4.8-10.8)
[2023-10-11 07:06] LABS: Anion Gap 13 (12-20); Blood Urea Nitrogen 14 mg/dL (9-16); Carbon Dioxide 24 mmol/L (22-29); Chloride 104 mmol/L (96-108); Creatinine Clr Calc Pharmacy 140.4; Estimated Glomerular Filt Rate > 60; Glucose Random 103 mg/dL (60-115); Magnesium 2.2 mg/dL (1.6-2.6); Potassium 3.3 mmol/L (3.3-5.1); Sodium 138 mmol/L (135-145)
[2023-10-11 07:53] VITALS: BP 149/92; PULSE 63; RESP 17; TEMP 36.4; O2SAT 97
--- NOTE | 2023-10-11 08:10 | PHA.PROG ---
Admission Date/Time: October 09, 2023 12:20 Indication: Sepsis Weight in k.9 kg Adjusted body weight in Kg: [place] body weight in Kg: Obesity Dosing Indication % IBW: Serum Creatinine - Last 168 Hours 10/09/23 10/09/23 10/09/23 00:43 08:10 11:10 Creatinine 1.30 1.21 1.11 10/09/23 10/10/23 10/11/23 21:49 06:19 06:21 Creatinine 0.91 0.84 0.76 Estimated CrCl and GFR - Last 168 Hours 10/09/23 10/09/23 10/09/23 00:43 08:10 11:10 Estim Creat Clear Calc 82.0 88.1 96.1 Estimated GFR > 60 > 60 > 60 10/09/23 10/10/23 10/11/23 21:49 06:19 06:21 Estim Creat Clear Calc 117.2 127.0 140.4 Estimated GFR > 60 > 60 > 60 Vancomycin Loading Dose: 2000mg x 1 Current Vancomycin Dosing Regimen: 1500mg Q12H Vancomycin Monitoring using AUC goal of 400 - 600 range with trough as surrogate marker: 554mg/L Date and Time for next Vancomycin Level to be drawn: 10/11 @0900 Pharmacist Comments on Vancomycin Plan: Predicted trough of 16.1 mg/L. Will continue to monitor and adjust accordingly Vancomycin dosing will take advantage of [employer] as a clinical decision support tool that uses Bayesian modeling to calculate individual patient's pharmacokinetic parameters and forecast the patient's drug concentration time course with the target goal AUC 24 range of 400 - 600 mg/L/hr.
[2023-10-11] MEDS: PHENobarbitaL 15 MG TABLET 45 MG PO (09:42)
[2023-10-11] MEDS: busPIRone HCl 10 MG TABLET 30 MG PO ×2 (09:42→22:36)
[2023-10-11] MEDS: 0.9 % Sodium Chloride Flush 3 ML SYRINGE IVFLUSH ×2 (09:43→16:15)
[2023-10-11] MEDS: Acamprosate Calcium 333 MG TABLET.DR 666 MG PO ×3 (09:43→22:33)
[2023-10-11] MEDS: Multivitamin TABLET 1 TAB PO (09:43)
[2023-10-11] MEDS: vancomycin HCL 1,500 MG in 0.9 % Sodium Chloride 500 ML 333.33 MG IV ×2 (09:43→22:53)
[2023-10-11] MEDS: Folic Acid 1 MG TABLET PO (09:43)
[2023-10-11] MEDS: FLUoxetine HCl 20 MG CAPSULE 40 MG PO (09:43)
[2023-10-11] MEDS: Famotidine 20 MG TABLET PO ×2 (09:43→22:37)
--- NOTE | 2023-10-11 10:56 | P.PNIM_ITS ---
Subjective Subjective Date of Service: 10/11/23 Interval History: f/u on alcohol withdrawal, starvation ketocis doing well, ketocis resolved, no sings of withdrwal at this time Physical Exam 2 Vital Signs: Vital Signs: Last Vital Signs Temp 97.5 F 10/11/23 07:53 Pulse 63 10/11/23 07:53 Resp 17 10/11/23 07:53 BP 149/92 H 10/11/23 07:53 Pulse Ox 97 10/11/23 07:53 O2 Del Method Room Air 10/11/23 07:53 O2 Flow Rate 2 10/09/23 10:17 BMI result Body Mass Index 28.1 General: AO X 3, no acute distress Resp: CTA bilateral CVS: S1,S2,RRR GI: +BS, NT, no distention Skin: No rash Neuro: motor grossly intact Psych: appropriate affect Objective Data Active Medications Acamprosate (Acamprosate Calcium 333 Mg Tablet.) 666 mg PO TID [facility] Last Admin: 10/11/23 09:43 Dose: 666 mg Documented By: LAURE Acetaminophen (Acetaminophen 325 Mg Tablet) 650 mg PO Q6H PRN PRN Reason: Pain, Mild (Pain Scale 1-3) Last Admin: 10/10/23 22:38 Dose: 650 mg Documented By: TRUONG Benzonatate (Benzonatate 100 Mg Capsule) 100 mg PO TID PRN PRN Reason: Cough Buspirone HCl (Buspirone Hcl 10 Mg Tablet) 30 mg PO BID [facility] Last Admin: 10/11/23 09:42 Dose: 30 mg Documented By: LAURE Docusate Sodium (Docusate Sodium 100 Mg Capsule) 100 mg PO DAILY PRN PRN Reason: Constipation Enoxaparin Sodium (Enoxaparin Sodium 40 Mg/0.4 Ml Syringe) 40 mg SUBCUT Q24H [facility] Last Admin: 10/10/23 14:19 Dose: 40 mg Documented By: LAURE Famotidine (Famotidine 20 Mg Tablet) 20 mg PO BID [facility] Last Admin: 10/11/23 09:43 Dose: 20 mg Documented By: LAURE Fluoxetine HCl (Fluoxetine Hcl 20 Mg Capsule) 40 mg PO DAILY [facility] Last Admin: 10/11/23 09:43 Dose: 40 mg Documented By: LAURE Folic Acid (Folic Acid 1 Mg Tablet) 1 mg PO DAILY [facility] Stop: 10/12/23 12:39 Last Admin: 10/11/23 09:43 Dose: 1 mg Documented By: LAURE Thiamine HCl 200 mg/ Sodium (Chloride) 102 mls @ 204 mls/hr IV Q12H [facility] Last Infusion: 10/11/23 03:07 Dose: Infused Documented By: TRUONG Vancomycin HCl 1,500 mg/ (Sodium Chloride) 500 mls @ 333.333 mls/hr IV Q12H [facility] Last Admin: 10/11/23 09:43 Dose: 333.33 mls/hr Documented By: LAURE Multivitamins/Vitamin C (Multivitamin Tablet) 1 tab PO DAILY [facility] Stop: 10/12/23 12:39 Last Admin: 10/11/23 09:43 Dose: 1 tab Documented By: LAURE Ondansetron HCl (Ondansetron Hcl 4 Mg/2 Ml Vial) 4 mg IVPUSH Q8H PRN PRN Reason: Nausea and Vomiting Pharmacy Consult (Consult Rx Etoh Phenob Im/Po) 1 each MISCELLANE ONCE PRN; Protocol PRN Reason: Consult order Pharmacy Consult (Consult Rx Vancomycin Dosing) 1 each MISCELLANE DAILY PRN PRN Reason: Consult order Phenobarbital (Phenobarbital 30 Mg Tablet) 30 mg PO DAILY [facility]; Protocol Stop: 10/15/23 09:01 Phenobarbital (Phenobarbital 30 Mg Tablet) 30 mg PO BID [facility]; Protocol Stop: 10/13/23 09:01 Sodium Chloride (0.9 % Sodium Chloride Flush 3 Ml Syringe) 3 ml IVFLUSH QSHIFT [facility] Last Admin: 10/11/23 09:43 Dose: 3 ml Documented By: LAURE Labs 10/11/23 06:21 10/11/23 06:21 Labs: Laboratory Results - last 24 hr 10/11/23 06:21 MCV 80.7 MCH 28.9 MCHC 35.8 RDW 13.5 Plt Count 130 L MPV 9.6 Absolute Nucleated RBC 0.000 Nucleated RBC % (auto) 0.0 Anion Gap 13 Estim Creat Clear Calc 140.4 Estimated GFR > 60 Random Glucose 103 Calcium 9.0 Magnesium 2.2 Microbiology Microbiology Results: Microbiology 10/09/23 08:10 Blood Culture - Preliminary Blood - Venous No growth after 48 hours. 10/09/23 08:02 Blood Culture - Preliminary Blood - Venous Prelim: GPC Gram Stain only Assessment and Plan (1) Starvation ketoacidosis: Status: Acute (2) Alcohol withdrawal syndrome: Status: Acute Plan Pt is a 37-year-old male with a PMH significant for?HTN, GERD, alcohol use disorder, RUE DVT previously on Eliquis, and major depressive disorder who presents to the ED for evaluation of alcohol intoxication seeking detox. Pt will be admitted to the hospital for treatment and further evaluation of alcoholic starvation ketoacidosis and impending alcohol withdrawal. Alcoholic starvation ketoacidosis-resolved with IVF, eating and drinking impending alcohol withdrawal, no sings of withdrawal at this time alcohol use disorder -Addiction med consult -phenobarbital , folic acid and thiamine Leukocytosis--reactive, and resolved with IVF Acute hypoxic respiratory failure, CXR, CTA negative, likely related to above and resolved, 97% on room air now Hyperkalemia, 5.2, resolved Mood disorder Continue home meds Full Code DVT Prophylaxis: Lovenox need for inpt: alcohol withdrawal treatment with phenobarb, alcoholic ketoacidosis requiring ivf anticipate dc following addiction med evaluation Quality Stroke Does the patient have a stroke diagnosis?: No VTE Prior VTE?: No VTE Risk Level:: Medical - moderate - high VTE Device Contraindication: Treatment Not Indicated VTE Drug Contraindication: N/A - Med Ordered
--- NOTE | 2023-10-11 10:59 | PM.DS ---
DS: Providers Provider Date of Service: 10/12/23 Date of admission: 10/09/23 12:20 Primary care physician: Unknown Physician Consults: 10/09/23 00:35 Consult to Care Team Routine Comment: Reason for consultation: etoh detox 10/09/23 12:40 Addiction Medicine Routine Consulting Provider: Addiction Covering Reason for consultation: Alcohol use disorder DS: Diagnosis Discharge Diagnosis (1) Starvation ketoacidosis: Status: Acute (2) Alcohol withdrawal syndrome: Status: Acute DS: Summary Hospital Course Hospital Course: admission hpi Chief Complaint: Alcohol withdrawal Pt is a 37-year-old male with a PMH significant for?HTN, GERD, alcohol use disorder, RUE DVT previously on Eliquis, and major depressive disorder who presents to the ED for evaluation of alcohol intoxication seeking detox. Patient has long history of alcohol use disorder with multiple admissions for alcohol withdrawal, last admitted to this hospital 1 month prior on 09/02/2023. Pt is currently somnolent but arousable, answering appropriately but vaguely and imprecisely. After last discharge patient went to [facility] for treatment and detox for 2 weeks, after which he then received treatment at [facility]. However, patient states that he has been ?hitting it hard? the past few days, drinking vodka and [place] beer. Patient then decided to present to the ED for detox. Has been experiencing nausea and vomiting, and sore throat secondary to vomiting. Also reports upper extremity tremors. Last drink last night prior to presentation. Denies auditory or visual hallucinations, no hyperacusis or photophobia. No chest pain/pressure, palpitations. Denies shortness of breath or cough. No fever, chills, abdominal pain. Patient reports that he has not been eating or drinking anything other than alcohol for the past few days. In the ED pt with elevated temperature of 100.7 degrees, tachycardia up to 139, and hypoxic as low as 88% on RA. Labs were significant for leukocytosis of 25.0, bicarb as low as 7, anion gap is eyes 35, lactic acid 11.8 with repeat 7.0, AST 48, ALT 48, VB pH 7.29 and VB Ji bicarb 13. UA negative for UTI. Ethyl alcohol 286 at midnight. CXR showed no acute cardiopulmonary findings though showed likely healed right-sided rib fractures. EKG demonstrated sinus tachycardia of 121 without evidence of significant ST elevations or depressions. Pt was treated with Ativan, Compazine, ondansetron, diphenhydramine, acetaminophen, ibuprofen, IVF x5 L, and started on phenobarb protocol. Pt will be admitted to the hospital for treatment and further evaluation of alcoholic starvation ketoacidosis and impending alcohol withdrawal. Hospital course : The patient presented with a relapse of alcoholism and exhibited signs of severe dehydration, with no intake of food or fluids. Metabolic acidosis was observed, with an initial bicarbonate level of 7 and an anion gap of 35. Additionally, the patient had a high lactic acid level of 11.8 and a toxic alcohol level of 286. He was admitted for the management of alcoholic and starvation ketoacidosis, as well as lactic acidosis, and to prevent impending alcohol withdrawal. Treatment involved intravenous fluids to address the metabolic and lactic acidosis, which resolved successfully. Phenobarbital was initiated to prevent the onset of severe alcohol withdrawal symptoms, and the patient's condition improved thereafter. The addiction medicine team has been providing support, assisting with the transition to outpatient resources to facilitate ongoing care and recovery. Leukocytosis--reactive and resolved without antibiotics. He did have 1/2 blood culture that turned out to be coag negatve stap Acute hypoxic respiratory failure, CXR, CTA negative, likely related to above and resolved promptly without intervention, 97% on room air now Hyperkalemia, 5.2, resolved Mood disorder Continue home meds Time Attestation Discharge Coordination Time (in mins): 40 Quality: Safe Use of Opioids Does Pt have an Active Cancer Diagnosis on the Problem List?: No Quality: Stroke Does the patient have a stroke diagnosis?: No Physical Exam Vital Signs: Vital Signs: Last Vital Signs Temp 97.5 F 10/11/23 07:53 Pulse 63 10/11/23 07:53 Resp 17 10/11/23 07:53 BP 149/92 H 10/11/23 07:53 Pulse Ox 97 10/11/23 07:53 O2 Del Method Room Air 10/11/23 07:53 O2 Flow Rate 2 10/09/23 10:17 BMI result Body Mass Index 28.1 DS: Data Data Completed and Pending Completed studies during hospitalization [Text1]: Procedures Detoxification Services for Substance Abuse Treatment (09/02/23) Labs on day of discharge: Laboratory Results - last 24 hr 10/11/23 06:21 WBC 4.7 L RBC 4.57 L Hgb 13.2 L Hct 36.9 L MCV 80.7 MCH 28.9 MCHC 35.8 RDW 13.5 Plt Count 130 L MPV 9.6 Absolute Nucleated RBC 0.000 Nucleated RBC % (auto) 0.0 Sodium 138 Potassium 3.3 Chloride 104 Carbon Dioxide 24 Anion Gap 13 BUN 14 Creatinine 0.76 Estim Creat Clear Calc 140.4 Estimated GFR > 60 Random Glucose 103 Calcium 9.0 Magnesium 2.2 Preliminary micro results at discharge 10/09/23 08:10 Blood Culture - Preliminary Blood - Venous No growth after 48 hours. 10/09/23 08:02 Blood Culture - Preliminary Blood - Venous Prelim: GPC Gram Stain only Discharge Plan Discharge Anticipated Discharge Date/Time: 10/11/23 10:59 Patient Disposition: Home, Self-Care Discharge Diagnosis: Alcoholic ketoacidosis, Referrals: Physician,Unknown J [Primary Care Provider] - 1 Week Discharge Medications: Continued acamprosate 333 mg tablet,delayed release (DR/EC) 666 mg PO TID Qty: 180 0RF fluoxetine 40 mg capsule 40 mg PO DAILY Qty: 30 0RF trazodone 50 mg tablet 50 mg PO BEDTIME Qty: 30 0RF buspirone 30 mg tablet 30 mg PO BID Vivitrol 380 mg Suspension,Extended Rel Recon 380 mg IM Q28D Qty: 1 0RF Discharge Orders: Discharge Order (Routine); Ordered 10/12/23 Ordered By: Cheng Vasquez Diet: Advance to usual diet Activity on Discharge: As tolerated Stand Alone Forms: Patient Portal Discharge page Print Language: [place] Care Plan Goals: achieve and maintain sobriety and improve physical and mental health and quality of life Health Concerns: alcoholism, alcohol dpendency, metabolic acidosis, now resolved. Plan of Treatment: avoid alcohol alcohol, follow through the resources given to you Assessment: see above Discharge Date/Time: 10/12/23 12:58
[2023-10-11 11:51] VITALS: BP 139/79; PULSE 66; RESP 18; TEMP 36.7; O2SAT 97
--- NOTE | 2023-10-11 12:01 | MHC.RECOVRN ---
Assessed pt in room 458-1 for follow up this morning. Pt was alert and oriented x4, slightly diaphoretic (he kept wiping his brow while speaking to me), hand tremors noted while speaking to patient. Pt acknowledged his want and desire to be healthy , but stated I like how drinking makes me feel, but I dont want to . Pt stated he did not feel safe going home tonight, I will sit on my porch and drink with no plan and fear Ill be back . Spoke with his Dr, , patient will stay tonight to be monitored another night and patient agrees at discharge to come right to [facility] outpatient clinic to form a safety plan. Discussed with Nina Gomez APRN
[2023-10-11] MEDS: Enoxaparin Sodium 40 MG/0.4 ML SYRINGE SUBCUT (12:29)
[2023-10-11 15:55] VITALS: BP 121/70; PULSE 80; RESP 18; TEMP 36.7; O2SAT 98
[2023-10-11 20:00] VITALS: BP 131/75; PULSE 89; RESP 20; TEMP 37.2; O2SAT 97
[2023-10-11] MEDS: PHENobarbitaL 30 MG TABLET PO (22:47)
[2023-10-11] MEDS: traZODone HCL 50 MG TABLET PO (23:07)
[2023-10-11] MEDS: ondansetron HCL 4 MG/2 ML VIAL IVPUSH (23:19)
[2023-10-12] VITALS: BP 156/107; PULSE 64; RESP 20; TEMP 36.4; O2SAT 98
[2023-10-12] MEDS: Thiamine HCL 200 MG in 0.9 % Sodium Chloride 100 ML 204 MG IV (01:07)
[2023-10-12 04:00] VITALS: BP 131/84; PULSE 75; RESP 19; TEMP 36.8; O2SAT 98
[2023-10-12 06:24] LABS: Vancomycin Trough 17.2 mcg/mL (10.0-20.0)
[2023-10-12 06:27] LABS: Anion Gap 18 (12-20); Blood Urea Nitrogen 12 mg/dL (9-16); Calcium 9.3 mg/dL (8.4-10.2); Carbon Dioxide 24 mmol/L (22-29); Chloride 102 mmol/L (96-108); Creatinine Clr Calc Pharmacy 142.2; Estimated Glomerular Filt Rate > 60; Glucose Random 109 mg/dL (60-115); Magnesium 1.9 mg/dL (1.6-2.6); Potassium 3.5 mmol/L (3.3-5.1); Sodium 140 mmol/L (135-145)
[2023-10-12 07:19] VITALS: BP 126/63; PULSE 80; RESP 18; TEMP 36.5; O2SAT 95
[2023-10-12] MEDS: FLUoxetine HCl 20 MG CAPSULE 40 MG PO (08:52)
[2023-10-12] MEDS: Famotidine 20 MG TABLET PO (08:52)
[2023-10-12] MEDS: Acamprosate Calcium 333 MG TABLET.DR 666 MG PO (08:52)
[2023-10-12] MEDS: busPIRone HCl 10 MG TABLET 30 MG PO (08:53)
[2023-10-12] MEDS: Folic Acid 1 MG TABLET PO (08:53)
[2023-10-12] MEDS: 0.9 % Sodium Chloride Flush 3 ML SYRINGE IVFLUSH (08:53)
[2023-10-12] MEDS: PHENobarbitaL 30 MG TABLET PO (08:53)
[2023-10-12] MEDS: Multivitamin TABLET 1 TAB PO (08:53)
[2023-10-12 09:40] LABS: Vancomycin Random 10.9 mcg/mL (15-20)
--- NOTE | 2023-10-12 11:02 | MHC.CM.PN ---
Patient is not yet medically cleared for dc (S/S ETOH Withdrawal); Recovery Team is involved and assisting with disposition. CM will follow.
[2023-10-12 11:24] VITALS: BP 134/83; PULSE 89; RESP 20; TEMP 36.5; O2SAT 97
--- NOTE | 2023-10-12 12:05 | MHC.CM.PN ---
Patient is now medically cleared for dc to home today, self care.
--- NOTE | 2023-10-12 13:05 | MHC.RECOVRN ---
Pt escorted to [facility] for appt at 1PM today.
== END 2023-10-12 12:58 | disposition home or self-care (01) | DRG 422 ==
LOC: HO.ED 10-09 08:28 → HO.EDOVER 10-09 14:54 → HO.IMC 10-09 19:27
PROVIDERS: Emergency Medicine; Student in an Organized Health Care Education/Training Program; Admitting Provider Student in an Organized Health Care Education/Training Program; Emergency Provider Student in an Organized Health Care Education/Training Program; Visit Provider Internal Medicine
DX: E87.29 Other acidosis (principal); E86.0 Dehydration; J96.01 Acute respiratory failure with hypoxia; F10.239 Alcohol dependence with withdrawal, unspecified; F10.229 Alcohol dependence with intoxication, unspecified; E87.5 Hyperkalemia; F39 Unspecified mood [affective] disorder; Y90.8 Blood alcohol level of 240 mg/100 ml or more; Z79.899 Other long term (current) drug therapy
CPT/HCPCS: 36415; 71046; 80048; 80053; 80202; 80307; 81001; 82803; 83605; 83690; 83735; 85025; 85027; 87040; 87205; 92950; 93005; 99285; J0737; J1650; J2060; J2405; J2560; J3370; J3371; J3411; J7120

== ENCOUNTER → 2023-10-09 00:44 | Outpatient (BNV) | payer OTHER, SELFPAY | PROVIDERS: Admitting Provider Student in an Organized Health Care Education/Training Program; Emergency Provider Student in an Organized Health Care Education/Training Program; Visit Provider Internal Medicine Cardiovascular Disease | DX: R00.0 Tachycardia, unspecified (principal) | CPT/HCPCS: 93010 ==

== ENCOUNTER → 2023-10-09 12:20 | Outpatient (BNV) | payer OTHER, SELFPAY | PROVIDERS: Admitting Provider Student in an Organized Health Care Education/Training Program; Emergency Provider Student in an Organized Health Care Education/Training Program; Visit Provider Student in an Organized Health Care Education/Training Program | DX: T73.0XXA Starvation, initial encounter (principal); E87.29 Other acidosis; F10.939 Alcohol use, unspecified with withdrawal, unspecified | CPT/HCPCS: 99223; 99232; 99239 ==

== ENCOUNTER 2023-10-12 13:08 | Outpatient (AMB) | payer OTHER, SELFPAY ==
[2023-10-12 13:16] VITALS: BP 128/80; PULSE 112; O2SAT 98
--- NOTE | 2023-10-12 13:16 | MHC.AM.SUB ---
Vital Signs 10/12/23 13:16 BP 128/80 Blood Pressure Location Lt brachial Position Sitting Pulse 112 H Pulse Source Pulse Oximeter Pulse Oximetry (%) 98 Oxygen Delivery Method Room Air Intake Visit Reasons: Walk in Allergies No Known Allergies [NO KNOWN ALLERGIES] Allergy (Unknown, Verified 10/09/23 00:24) UNKNOWN HPI HPI Walk in: Details: Patient presents as walk in following hospital discharge. Admitted for alcohol withdrawal last week. Chart reviewed--last Vivitrol injection received at [facility] (while inpatient) on 09/04/23. He then discharged to [facility] and when discharged home drank soon after patient tearful during visit. struggling with intense cravings and minimal coping strategies would like to resume injection [facility] Medical History Deep vein thrombosis, upper right extremity Alcohol use disorder, severe, dependence Alcohol abuse Elevated LFTs Recurrent major depression-severe Alcohol withdrawal syndrome Hypertension Anxiety and depression Psychiatric disturbance Family History Other Lung cancer Social History Household Members: None Housing: House Do you presently have visiting nurse or other home services: No Alcohol intake: current Alcohol intake frequency: 3 or more drinks per day Alcohol type: hard liquor Comment: patient refusing alarms Patient Tobacco Use Status: Never used Tobacco e-Cigarette/Vaping Use: Never Used Second Hand Smoke Exposure: No Substance Use Type: Marijuana Advance Directives Date on File: 01/08/21 service: No Current occupational status: unemployed Sexual orientation: Straight/Heterosexual Review of Systems Const Reports as per HPI Physical Exam Vital Signs: Last Vital Signs Pulse 112 H 10/12/23 13:16 BP 128/80 10/12/23 13:16 Pulse Ox 98 10/12/23 13:16 Oxygen Delivery Method Room Air 10/12/23 13:16 Const General: cooperative and anxious Office Meds Vivitrol 380 mg intramuscular suspension,extended release Performing Provider: Nina Gomez CNP Performing Location: [facility] Administered by: Nancy Umana RN on 10/13/23 09:10 Dose Route Admin Location Dispensed Lot Number Expiration Date [facility] Clinical Rehabilitation Liaison 380 mg IM RG 380 mg [id number] 10/29/25 [id number] [employer] Assessment & Plan Assessment & Plan (1) Alcohol use disorder, severe, dependence: Code(s): F10.20 - Alcohol dependence, uncomplicated Category: Medical Plan: tolerated injection relapse prevention discussion follow up one week Orders: Orders AMB Naltrexone Injection Patient Supplied (NC) 10/12/23 F10.20 - Alcohol dependence, uncomplicated
== END 2023-10-12 14:05 | disposition home or self-care (01) ==
PROVIDERS: Visit Provider Nurse Practitioner Psychiatric/Mental Health
DX: F10.20 Alcohol dependence, uncomplicated (principal)
CPT/HCPCS: 99214

== ENCOUNTER → 2023-10-12 13:08 | Outpatient (BNVA) | payer OTHER, SELFPAY | PROVIDERS: Visit Provider Nurse Practitioner Psychiatric/Mental Health | DX: F10.20 Alcohol dependence, uncomplicated (principal); Z79.899 Other long term (current) drug therapy | CPT/HCPCS: 96372; 99212; J2315 ==

== ENCOUNTER 2023-10-16 21:01 | Emergency (ER) | payer OTHER, SELFPAY ==
[2023-10-16 21:05] VITALS: BP 153/95; PULSE 102; O2SAT 98
[2023-10-16 21:12] VITALS: BP 132/87; PULSE 101; RESP 18; TEMP 36.6; O2SAT 97; BMI 27.7
[2023-10-16 21:41] LABS: Basophils Absolute Auto 0.1 X10*3/uL (0.0-0.2); Basophils Percent Auto 1.2 % (0-2); Eosinophils Absolute Auto 0.1 X10*3/uL (0.0-0.4); Eosinophils Percent Auto 1.2 % (0-4); Hematocrit 44.9 % (42.0-52.0); Hemoglobin 15.7 g/dl (14.0-18.0); Imm Gran Abs Auto 0.01 X10*3/uL (0.00-0.03); Imm Gran Pct Auto 0.2 % (0.0-0.4); Lymphocytes Absolute Auto 2.1 X10*3/uL (1.2-4.9); Lymphocytes Percent Auto 34.7 % (20-40); MANUAL DIFF FLAG SCAN; Mean Corpuscular Hemoglobin 28.8 pg (27.0-33.0); Mean Corpuscular Volume 82.4 fL (80.0-98.0); Monocytes Absolute Auto 0.7 X10*3/uL (0.1-1.2); Monocytes Percent Auto 11.4 % (2-11); Neutrophils Absolute Auto 3.1 x10*3/uL (2.0-8.3); Neutrophils Percent Auto 51.3 % (45-73); PLT CLUMP 1; Red Blood Count 5.45 X10*6/uL (4.60-5.80); Red Cell Distribution Width 14.1 % (11.0-16.0); SCAN SMEAR FLAG 1
--- NOTE | 2023-10-16 21:50 | ED.ALCOHOL ---
HPI - Alcohol General Chief Complaint: ETOH/Substance Use Stated Complaint: ETOH, binge drinking since thursday Time Seen by Provider: 10/16/23 21:39 Source: patient Mode of arrival: EMS Limitations: no limitations History of Present Illness HPI narrative: Patient alcoholic been drinking heavy amount of vodka for last few days and vomiting not eating any food plan to go to detox in next 2 days had last drink earlier today and trying to decrease alcohol amount feel little jittery Related Data Home Medications ?Medication ?Instructions ?Recorded ?Confirmed buspirone 30 mg tablet 30 mg PO BID 09/02/23 10/09/23 Previous Rx's ?Medication ?Instructions ?Recorded acamprosate 333 mg tablet,delayed 666 mg (2 x 333 mg) PO TID #180 07/09/23 release tabs fluoxetine 40 mg capsule 40 mg PO DAILY #30 caps 07/09/23 trazodone 50 mg tablet 50 mg PO BEDTIME #30 tabs 07/09/23 naltrexone microspheres 380 mg 380 mg IM Q28D #1 ea 09/06/23 intramuscular suspension,extended release (Vivitrol) Allergies Allergy/AdvReac Type Severity Reaction Status Date / Time No Known Allergies Allergy Unknown UNKNOWN Verified 10/16/23 21:13 [NO KNOWN ALLERGIES] Review of Systems Review of Systems: Yes all other systems are reviewed and are negative PMFSH Past Medical History Medical History Deep vein thrombosis, upper right extremity Alcohol use disorder, severe, dependence Alcohol abuse Elevated LFTs Recurrent major depression-severe Alcohol withdrawal syndrome Hypertension Anxiety and depression Psychiatric disturbance Family History Family History Other Lung cancer Social History Social History Household Members: None Housing: House Do you presently have visiting nurse or other home services: No Alcohol intake: current Alcohol intake frequency: 3 or more drinks per day Alcohol type: hard liquor Comment: patient refusing alarms Patient Tobacco Use Status: Never used Tobacco Smoked in Last 30 Days: No e-Cigarette/Vaping Use: Never Used Second Hand Smoke Exposure: No Use of substances other than those prescribed or required for medical reasons: No Substance Use Type: Marijuana Advance Directives: Yes Advance Directives on File: Yes Advance Directives Date on File: 01/08/21 Do you have a plan to hurt others: No Plan service: No Current occupational status: unemployed Sexual orientation: Straight/Heterosexual Physical Exam ED Vital Signs: Vital Signs - 24 hr 10/16/23 21:12 10/17/23 01:09 Temperature 97.8 F 98.1 F Pulse Rate 101 H 96 Respiratory Rate 18 16 Blood Pressure 132/87 130/84 Pulse Oximetry 97 98 Oxygen Delivery Method Room Air Room Air BMI result Body Mass Index 27.7 Appearance: Alert. Oriented X3. No acute distress. Anxiousetoh ++ Eyes: PERRLA, No Nystagmus ENT: Pharynx normal. Oral Mucosa moist Neck: Normal inspection. Neck supple. CVS: Normal heart rate and rhythm. Pulses normal. Respiratory: No respiratory distress. Equal air entry bilateral, no wheezing/rales/rhonchi Abdomen: Soft and nontender. Bowel sounds are present, no mass palpable, no CVA tenderness Skin: Skin warm and dry. Normal skin color. Normal skin turgor. Extremities: No lower extremity edema. No calf tenderness Neuro: Oriented X 3. No motor deficit. No sensory deficit.No cerebellar signs , cranial nerves II-XII intact Medical Decision Making Medical Decision Making MDM Narrative: Patient alcoholic unable to eat or drink for last 4 days been drinking heavy. Has a plan to go to detox will give IV hydration watch for withdrawal once sober will discharge patient home Lab Data [facility] Lab Attestation statement: I reviewed the patient's lab results. 10/16/23 21:32 10/16/23 21:32 Labs: Lab Results 10/16/23 Range/Units 21:32 WBC 6.0 (4.8-10.8) X10*3/uL RBC 5.45 (4.60-5.80) X10*6/uL Hgb 15.7 (14.0-18.0) g/dl Hct 44.9 D (42.0-52.0) % MCV 82.4 (80.0-98.0) fL MCH 28.8 (27.0-33.0) pg MCHC 35.0 (31.0-36.0) g/dl RDW 14.1 (11.0-16.0) % Plt Count 260 D (160-400) X10*3/uL MPV 9.7 (9.4-12.4) fL Immature Gran % (Auto) 0.2 (0.0-0.4) % Neut % (Auto) 51.3 (45-73) % Lymph % (Auto) 34.7 (20-40) % [place] % (Auto) 11.4 H (2-11) % Eos % (Auto) 1.2 (0-4) % Baso % (Auto) 1.2 (0-2) % Lymph # (Auto) 2.1 (1.2-4.9) X10*3/uL [place] # (Auto) 0.7 (0.1-1.2) X10*3/uL Eos # (Auto) 0.1 (0.0-0.4) X10*3/uL Baso # (Auto) 0.1 (0.0-0.2) X10*3/uL Abs Immat Gran (auto) 0.01 (0.00-0.03) X10*3/uL Absolute Neuts (auto) 3.1 (2.0-8.3) x10*3/uL Absolute Nucleated RBC 0.000 (0.0-0.012) X10*3/uL Nucleated RBC % (auto) 0.0 (0.0-0.2) /100WBC Smear Tech's Comments VERIFIED Sodium 142 (135-145) mmol/L Potassium 3.9 (3.3-5.1) mmol/L Chloride 99 (96-108) mmol/L Carbon Dioxide 21 L (22-29) mmol/L Anion Gap 26 H (12-20) BUN 10 (9-16) mg/dL Creatinine 0.78 (0.5-1.4) mg/dL Estim Creat Clear Calc 135.9 Estimated GFR > 60 Random Glucose 74 (60-115) mg/dL Calcium 8.9 (8.4-10.2) mg/dL Magnesium 2.0 (1.6-2.6) mg/dL Total Bilirubin 0.3 (0.0-1.0) mg/dL AST 38 H (5-37) U/L ALT 44 H (0-40) U/L Alkaline Phosphatase 70 (39-117) U/L Total Protein 8.7 H (6.5-8.0) g/dL Albumin 5.0 (3.5-5.0) g/dL Ethyl Alcohol 295 mg/dL Medications Administered Discontinued Medications Generic Name Dose Route Start Last Admin Trade Name Davey PRN Reason Stop Dose Admin Famotidine 20 mg 10/16/23 21:48 10/16/23 22:01 Famotidine/Pf 20 Mg/2 Ml Vial IVPUSH 10/16/23 21:49 20 mg ONCE ONE Administration Sodium Chloride 1,000 mls @ 999 mls/hr 10/16/23 21:48 10/17/23 00:26 Ns IV 10/16/23 22:48 Infused .Q1H1M ONE Infusion Lorazepam 2 mg 10/16/23 21:48 10/16/23 22:01 Lorazepam 2 Mg/Ml Vial IVPUSH 10/16/23 21:49 2 mg ONCE ONE Administration Ondansetron HCl 4 mg 10/16/23 21:48 10/16/23 22:01 Ondansetron Hcl 4 Mg/2 Ml Vial IVPUSH 10/16/23 21:49 4 mg ONCE ONE Administration Discharge Plan Discharge Clinical Impression: Alcohol use disorder, severe, dependence, Alcoholic gastritis Patient Disposition: Still a Patient Prescriptions: No Action acamprosate 333 mg tablet,delayed release (DR/EC) 666 mg PO TID Qty: 180 0RF fluoxetine 40 mg capsule 40 mg PO DAILY Qty: 30 0RF trazodone 50 mg tablet 50 mg PO BEDTIME Qty: 30 0RF buspirone 30 mg tablet 30 mg PO BID Vivitrol 380 mg Suspension,Extended Rel Recon 380 mg IM Q28D Qty: 1 0RF Print Language: [place] Verdean
[2023-10-16] MEDS: Famotidine/PF 20 MG/2 ML VIAL IVPUSH (22:01)
[2023-10-16] MEDS: 0.9 % Sodium Chloride 1,000 ML 999 ML IV (22:01)
[2023-10-16] MEDS: ondansetron HCL 4 MG/2 ML VIAL IVPUSH (22:01)
[2023-10-16] MEDS: LORazepam 2 MG/ML VIAL IVPUSH (22:01)
[2023-10-16 22:04] LABS: Alanine Aminotransferase 44 U/L (0-40); Alkaline Phosphatase 70 U/L (39-117); Anion Gap 26 (12-20); Aspartate Amino Transferase 38 U/L (5-37); Bilirubin Total 0.3 mg/dL (0.0-1.0); Blood Urea Nitrogen 10 mg/dL (9-16); Calcium 8.9 mg/dL (8.4-10.2); Carbon Dioxide 21 mmol/L (22-29); Chloride 99 mmol/L (96-108); Creatinine Clr Calc Pharmacy 135.9; Estimated Glomerular Filt Rate > 60; Ethanol 295 mg/dL; Glucose Random 74 mg/dL (60-115); Potassium 3.9 mmol/L (3.3-5.1); Sodium 142 mmol/L (135-145); Total Protein 8.7 g/dL (6.5-8.0)
[2023-10-16 22:05] LABS: Mean Platelet Volume 9.7 fL (9.4-12.4); Platelet Count 260 X10*3/uL (160-400); SLIDE REVIEW VERIFIED
[2023-10-17 01:09] VITALS: BP 130/84; PULSE 96; RESP 16; TEMP 36.7; O2SAT 98
[2023-10-17 06:04] VITALS: BP 139/73; PULSE 85; RESP 20; TEMP 36.7; O2SAT 98
[2023-10-17] MEDS: LORazepam 1 MG TABLET 2 MG PO (07:59)
[2023-10-17 08:44] VITALS: BP 134/84; PULSE 103; RESP 20; TEMP 36.9; O2SAT 97
[2023-10-17] MEDS: LORazepam 1 MG TABLET PO (09:40)
[2023-10-17 10:24] VITALS: BP 130/82; PULSE 100; RESP 20; TEMP 36.9; O2SAT 99
== END 2023-10-17 10:25 | disposition home or self-care (01) ==
PROVIDERS: Emergency Provider Internal Medicine
DX: F10.20 Alcohol dependence, uncomplicated (principal); K29.20 Alcoholic gastritis without bleeding; Y90.8 Blood alcohol level of 240 mg/100 ml or more
CPT/HCPCS: 36415; 80053; 80307; 83735; 85025; 96361; 96374; 96375; 99285; J2060; J2405

== ENCOUNTER 2023-11-12 09:49 | Outpatient (AMB) | payer OTHER, SELFPAY ==
[2023-11-12 09:58] VITALS: BP 140/80; PULSE 62; RESP 19; O2SAT 98
--- NOTE | 2023-11-12 09:58 | MHC.AM.SUB ---
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 States he drinks the occasional beer, and feels good he is able to do this and not fall into patterns of previous use HPI Comments Details: Patient presents for MAT visit [facility] Medical History Deep vein thrombosis, upper right extremity Alcohol use disorder, severe, dependence Alcohol abuse Elevated LFTs Recurrent major depression-severe Alcohol withdrawal syndrome Hypertension Anxiety and depression Psychiatric disturbance Family History Other Lung cancer Social History Household Members: None Housing: House Do you presently have visiting nurse or other home services: No Alcohol intake: current Alcohol intake frequency: 3 or more drinks per day Alcohol type: hard liquor Comment: patient refusing alarms Patient Tobacco Use Status: Never used Tobacco e-Cigarette/Vaping Use: Never Used Second Hand Smoke Exposure: No Substance Use Type: Marijuana Advance Directives Date on File: 01/08/21 service: No Current occupational status: unemployed Sexual orientation: Straight/Heterosexual Review of Systems Const Reports as per HPI Physical Exam Vital Signs: Last Vital Signs Pulse 62 11/12/23 09:58 Resp 19 11/12/23 09:58 BP 140/80 H 11/12/23 09:58 Pulse Ox 98 11/12/23 09:58 Const General: cooperative and no acute distress Resp Effort & Inspection: normal respiratory effort and able to speak in complete sentences Psych Appearance: grossly normal Mental Status: mental status grossly normal Speech and movement: Normal speech and movement present Affect: normal affect Attitude: cooperative Thought process: Normal thought process present Office Meds Vivitrol 380 mg intramuscular suspension,extended release Performing Provider: Janelle Chin NP Performing Location: [facility] Administered by: Nancy Umana RN on 11/12/23 10:13 Dose Route Admin Location Dispensed Lot Number Expiration Date [facility] D[employer]S Assistant 380 mg IM LG 380 mg [id number] 12/29/25 03954-010-00 [employer] Assessment & Plan Assessment & Plan (1) Alcohol use disorder, severe, dependence: Code(s): F10.20 - Alcohol dependence, uncomplicated Category: Medical Plan: -Relapse prevention discussed -Campral refilled -Omeprazole rx sent to pharmacy per pt request -Follow up 4 weeks Orders: Orders AMB Naltrexone Injection Patient Supplied (NC) Today F10.20 - Alcohol dependence, uncomplicated Medications: New omeprazole 20 mg PO DAILY 90 caps 0RF Vivitrol ER (naltrexone microspheres) 380 mg IM ONCE 1 ea 0RF NS F10.20 - Alcohol dependence, uncomplicated Refilled acamprosate 666 mg (2 x 333 mg) PO TID 180 tabs 0RF
== END 2023-11-12 10:28 | disposition home or self-care (01) ==
PROVIDERS: Visit Provider Nurse Practitioner Family
DX: F10.20 Alcohol dependence, uncomplicated (principal)
CPT/HCPCS: 99213

== ENCOUNTER → 2023-11-12 09:49 | Outpatient (BNVA) | payer OTHER, SELFPAY | PROVIDERS: Visit Provider Nurse Practitioner Family | DX: F10.20 Alcohol dependence, uncomplicated (principal); Z79.899 Other long term (current) drug therapy | CPT/HCPCS: 96372; 99212; J2315 ==

== ENCOUNTER 2023-12-10 09:36 | Outpatient (AMB) | payer OTHER, SELFPAY ==
[2023-12-10 08:51] VITALS: BP 130/70; PULSE 80; RESP 20
--- NOTE | 2023-12-10 11:02 | AM.OFFVISNUR ---
Vital Signs 12/10/23 08:51 BP 130/70 Blood Pressure Location Rt brachial Position Sitting Respiration 20 Pulse 80 Pulse Source Pulse Oximeter Intake Visit Reasons: Maria Luz Inj Allergies No Known Allergies [NO KNOWN ALLERGIES] Allergy (Unknown, Verified 10/16/23 21:13) UNKNOWN Nursing Note Patient was seen on 12/09, for vivitrol injection. Alert and oriented x4, denies any complications with previous injection, injection today given per orders in the LG. Will follow up in 4 weeks with RN and provider. Patient states he has no cravings, he does drink on occasion , states I have 2 beers maybe twice a week, I feel really good that I got to this point . Office Meds Vivitrol 380 mg intramuscular suspension,extended release Performing Provider: Nina Gomez CNP Performing Location: [facility] Administered by: Nancy Umana RN on 12/15/23 08:56 Dose Route Admin Location Dispensed Lot Number Expiration Date [facility] Bottle Packer 380 mg IM LG 380 mg [id number] 01/29/26 61479-849-05 [employer] Assessment & Plan Assessment & Plan Orders: Orders AMB Naltrexone Injection Patient Supplied (NC) 12/10/23 F10.20 - Alcohol dependence, uncomplicated
== END 2023-12-10 10:04 | disposition home or self-care (01) ==
DX: F10.20 Alcohol dependence, uncomplicated (principal)

== ENCOUNTER → 2023-12-10 09:36 | Outpatient (BNVA) | payer OTHER, SELFPAY | DX: F10.20 Alcohol dependence, uncomplicated (principal); Z79.899 Other long term (current) drug therapy | CPT/HCPCS: 96372; J2315 ==

== ENCOUNTER 2024-01-19 09:33 | Outpatient (AMB) | payer OTHER, SELFPAY ==
--- NOTE | 2024-01-19 09:59 | AM.OFFVISNUR ---
Intake Visit Reasons: Vivitrol Injection Allergies No Known Allergies [NO KNOWN ALLERGIES] Allergy (Unknown, Verified 10/16/23 21:13) UNKNOWN Nursing Note Patient Presents for vivitrol Injection. Current Dose 380 mg . Given in the LG with no noted or stated complications. Denies any issues with previous injection. Denies symptoms, and denies any break through cravings. Will follow up with RN in 4 weeks for injection. Will need to see provider for check in next visit . Office Meds Vivitrol 380 mg intramuscular suspension,extended release Performing Provider: Nina Gomez CNP Performing Location: [facility] Administered by: Nancy Umana RN on 01/19/24 14:16 Dose Route Admin Location Dispensed Lot Number Expiration Date 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 Assessment & Plan Assessment & Plan Orders: Orders AMB Naltrexone Injection Patient Supplied (NC) 01/19/24 F10.20 - Alcohol dependence, uncomplicated Medications: New Vivitrol ER (naltrexone microspheres) 380 mg IM ONCE 1 ea 0RF NS F10.20 - Alcohol dependence, uncomplicated
== END 2024-01-19 09:58 | disposition home or self-care (01) ==
DX: F10.20 Alcohol dependence, uncomplicated (principal)

== ENCOUNTER → 2024-01-19 09:33 | Outpatient (BNVA) | payer OTHER, SELFPAY | DX: F10.20 Alcohol dependence, uncomplicated (principal) | CPT/HCPCS: 96372; J2315 ==

== ENCOUNTER 2024-02-25 09:18 | Outpatient (AMB) | payer OTHER, SELFPAY ==
--- NOTE | 2024-02-25 09:26 | MHC.AM.SUB ---
Intake Visit Reasons: Vivitrol Injection Allergies No Known Allergies [NO KNOWN ALLERGIES] Allergy (Unknown, Verified 10/16/23 21:13) UNKNOWN HPI HPI Vivitrol Injection: Details: Patient presents for follow up and vivitrol injection reports he is doing well with drinking in moderation states he drinks no more than 2 drinks when he does drink anxiety stable has not seen PCP yet denies any side effects related to medications PFSH Medical History Deep vein thrombosis, upper right extremity Alcohol use disorder, severe, dependence Alcohol abuse Elevated LFTs Recurrent major depression-severe Alcohol withdrawal syndrome Hypertension Anxiety and depression Psychiatric disturbance Family History Other Lung cancer Social History Household Members: None Housing: House Do you presently have visiting nurse or other home services: No Alcohol intake: current Alcohol intake frequency: 3 or more drinks per day Alcohol type: hard liquor Comment: patient refusing alarms Patient Tobacco Use Status: Never used Tobacco e-Cigarette/Vaping Use: Never Used Second Hand Smoke Exposure: No Substance Use Type: Marijuana Advance Directives Date on File: 01/08/21 service: No Current occupational status: unemployed Sexual orientation: Straight/Heterosexual Review of Systems Const Reports as per HPI and Reports no additional complaints Physical Exam Const General: cooperative, healthy appearing, comfortable and well groomed Office Meds Vivitrol 380 mg intramuscular suspension,extended release Performing Provider: Nina Gomez CNP Performing Location: [facility] Administered by: Nancy Umana RN on 02/25/24 09:29 Dose Route Admin Location Dispensed Lot Number Expiration Date [facility] [place] 2[place] [employer] 380 mg IM LG 380 mg 2024-1019T 07/01/26 14914-107-44 [employer] Assessment & Plan Assessment & Plan (1) Alcohol use disorder, severe, dependence: Code(s): F10.20 - Alcohol dependence, uncomplicated Category: Medical Plan: tolerated injection follow up 4 weeks LABS ordered and patient aware Orders: Orders AMB Naltrexone Injection Patient Supplied (NC) 02/25/24 F10.20 - Alcohol dependence, uncomplicated Liver Panel 02/25/24 F10.20 - Alcohol dependence, uncomplicated, Z79.899 - Other custodial (current) drug therapy Medications: Refilled fluoxetine 40 mg PO DAILY 90 caps 0RF omeprazole 20 mg PO DAILY 90 caps 0RF
== END 2024-02-25 09:59 | disposition home or self-care (01) ==
DX: F10.20 Alcohol dependence, uncomplicated (principal)
CPT/HCPCS: 99213

== ENCOUNTER → 2024-02-25 09:18 | Outpatient (BNVA) | payer OTHER, SELFPAY | DX: F10.20 Alcohol dependence, uncomplicated (principal); Z51.81 Encounter for therapeutic drug level monitoring; Z79.899 Other long term (current) drug therapy | CPT/HCPCS: 96372; 99212; J2315 ==

== ENCOUNTER 2024-07-19 17:47 | Inpatient (IN) | payer OTHER, SELFPAY ==
[2024-07-19 17:56] VITALS: BP 166/115; PULSE 110; O2SAT 98
[2024-07-19 18:03] VITALS: BMI 27.7
--- NOTE | 2024-07-19 18:12 | PC.NURSE ---
Pt comes to ED today from home with ETOH intoxication after relapsing from sobriety. Pt reports he drinks two 30 packs of beer and 2 bottles of wine per day. He c/o stomach pains at this time and felt the only way for him to stop drinking was to come to the ED. Pt unsure if he would be interested in recovery services at this time but is open to options and states he is well known to [facility] recovery staff. Pt arrives with a 20g to R wrist. Pt is alert and oriented x3; calm and cooperative. Breaths and speech are even and unlabored. Noted pungent odor of ETOH. Pt resting comfortably on stretcher at this time.
[2024-07-19 18:32] VITALS: BP 171/101; PULSE 144; RESP 20; O2SAT 98
[2024-07-19] MEDS: LORazepam 1 MG TABLET 2 MG PO (18:43)
[2024-07-19 19:03] LABS: Imm Gran Abs Auto 0.01 X10*3/uL (0.00-0.03); Imm Gran Pct Auto 0.2 % (0.0-0.4); Red Blood Count 5.87 X10*6/uL (4.60-5.80); WBC ABN SCTR 1
[2024-07-19 19:07] LABS: WBC ABN SCTR FOR CBC 1
[2024-07-19 19:16] LABS: Alanine Aminotransferase 67 U/L (0-40); Albumin Level 5.1 g/dL (3.5-5.0); Alkaline Phosphatase 61 U/L (39-117); Anion Gap 24 (12-20); Aspartate Amino Transferase 61 U/L (5-37); Bilirubin Direct 0.2 mg/dL (0.0-0.5); Bilirubin Total 0.5 mg/dL (0.0-1.0); Blood Urea Nitrogen 9 mg/dL (9-16); Calcium 9.3 mg/dL (8.4-10.2); Carbon Dioxide 22 mmol/L (22-29); Chloride 99 mmol/L (96-108); Creatinine Clr Calc Pharmacy 134.6; Estimated Glomerular Filt Rate > 60; Ethanol 354 mg/dL; Glucose Random 98 mg/dL (60-115); Magnesium 2.5 mg/dL (1.6-2.6); Sodium 141 mmol/L (135-145); Total Protein 9.5 g/dL (6.5-8.0)
[2024-07-19 19:31] LABS: Basophils Percent Auto 0.7 % (0-2); Eosinophils Absolute Auto 0.1 X10*3/uL (0.0-0.4); Eosinophils Percent Auto 2.2 % (0-4); Hematocrit 47.1 % (42.0-52.0); Hemoglobin 16.8 g/dl (14.0-18.0); Lymphocytes Absolute Auto 1.9 X10*3/uL (1.2-4.9); Lymphocytes Percent Auto 33.2 % (20-40); Mean Corpuscular HGB Conc 35.7 g/dl (31.0-36.0); Mean Corpuscular Hemoglobin 28.6 pg (27.0-33.0); Mean Corpuscular Volume 80.2 fL (80.0-98.0); Mean Platelet Volume 9.7 fL (9.4-12.4); Monocytes Absolute Auto 0.6 X10*3/uL (0.1-1.2); Monocytes Percent Auto 10.2 % (2-11); Neutrophils Percent Auto 53.5 % (45-73); Platelet Count 216 X10*3/uL (160-400); Red Cell Distribution Width 13.2 % (11.0-16.0); White Blood Count 5.6 X10*3/uL (4.8-10.8)
[2024-07-19 19:39] LABS: Amphetamine Screen Urine Not Detected (Not Detect); Barbiturates, Urine Not Detected (Not Detect); Benzodiazepines Screen Urine Not Detected (Not Detect); Buprenorphine Scr Not Detected (Not Detect); Cannabinoid Screen Urine Not Detected (Not Detect); Cocaine Screen Urine Not Detected (Not Detect); Fentanyl, urine Not Detected (Not Detect); Methadone Screen, Urine Not Detected (Not Detect); Opiate Screen Urine Not Detected (Not Detect); Oxycodone Screen Urine Not Detected (Not Detect); Phencyclidine Screen Urine Not Detected (Not Detect)
[2024-07-19 19:40] LABS: MANUAL DIFF FLAG NO
[2024-07-19] MEDS: diazePAM 2 MG TABLET PO (20:33)
--- NOTE | 2024-07-19 20:34 | PC.NURSE ---
medicated per mar.
--- NOTE | 2024-07-19 21:49 | ED_ITS ---
HPI - Alcohol General Chief Complaint: ETOH/Substance Use Stated Complaint: etoh and depression Time Seen by Provider: 07/19/24 17:51 Source: patient and EMS Mode of arrival: EMS Limitations: no limitations History of Present Illness ED Provider: Dr. Jessie Adams HPI narrative: Patient comes to the emergency room via ambulance complaining of alcohol intoxication, requesting detox. Patient states that he is not SI or HI. Patient was sober for several months. Then he relapsed 3 days ago. Patient has been drinking alcohol. Dressing help to get back into detox. EMS gave the patient 4 mg of Zofran. Related Data Previous Rx's ?Medication ?Instructions ?Recorded naltrexone microspheres 380 mg 380 mg IM Q28D #1 ea 11/06/23 intramuscular suspension,extended release (Vivitrol) acamprosate 333 mg tablet,delayed 666 mg (2 x 333 mg) PO TID #180 11/12/23 release tabs buspirone 30 mg tablet 30 mg PO BID #60 tabs 12/22/23 trazodone 50 mg tablet 50 mg PO BEDTIME #30 tabs 12/22/23 fluoxetine 40 mg capsule 40 mg PO DAILY #90 caps 02/28/24 omeprazole 20 mg capsule,delayed 20 mg PO DAILY #90 caps 02/28/24 release Allergies Allergy/AdvReac Type Severity Reaction Status Date / Time No Known Allergies Allergy Unknown UNKNOWN Verified 07/19/24 18:05 [NO KNOWN ALLERGIES] Review of Systems 2 Review of Systems: Constitutional : No Weight loss, No Fever, No Chills, No Night Sweats, No Fatigue, No Malaise ENT/Mouth : No Hearing loss, No Ear Pain, No Nasal Congestion, No Sinus Pain, No Hoarseness, No sore throat, No Rhinorrhea, No Swallowing Difficulty Eyes: No Eye Pain, No Swelling, No Redness, No Foreign Body, No Discharge, No Vision Changes Cardiovascular : No Chest Pain, No SOB, No Dyspnea on Exertion, No Orthopnea, No Edema, No Palpitations Respiratory : No Cough, No Sputum, No Wheezing, No Smoke Exposure, No Dyspnea Gastrointestinal : No Nausea, No Vomiting, No Diarrhea, No Constipation, No abdominal Pain, No Hematochezia, No Melena Genitourinary : no irregular bleeding, No Dysuria, No Urinary Frequency, No Hematuria, No Urinary Incontinence, No Urgency, No Flank Pain, No Urinary Flow Changes, No Hesitancy Musculoskeletal : No joint pain, No Myalgias, No Joint Swelling Skin : No Skin Lesions, No rash Neuro : No Weakness, No Numbness, No Paresthesias, No Loss of Consciousness, No Dizziness, No Headache Psych : No Anxiety/Panic, No Depression, No SI/HI/AH/VH, admits to ETOH labs Heme/Lymph: No Bruising, No Bleeding,No Lymphadenopathy Endocrine : No Polyuria, No Polydipsia, No Temperature Intolerance [facility] Past Medical History Medical History Deep vein thrombosis, upper right extremity Alcohol use disorder, severe, dependence Alcohol abuse Elevated LFTs Recurrent major depression-severe Alcohol withdrawal syndrome Hypertension Anxiety and depression Psychiatric disturbance Family History Family History Other Lung cancer Social History Social History Household Members: None Housing: House Do you presently have visiting nurse or other home services: No Alcohol intake: current Alcohol intake frequency: 3 or more drinks per day Alcohol type: beer and wine Comment: patient refusing alarms Patient Tobacco Use Status: Never used Tobacco Smoked in Last 30 Days: No e-Cigarette/Vaping Use: Never Used Second Hand Smoke Exposure: No Use of substances other than those prescribed or required for medical reasons: No Substance Use Type: Marijuana Advance Directives: Yes Advance Directives on File: Yes Advance Directives Date on File: 01/08/21 Do you have a plan to hurt others: No Plan service: No Current occupational status: unemployed Sexual orientation: Straight/Heterosexual Physical Exam ED Vital Signs: Vital Signs - 24 hr 07/19/24 18:32 Pulse Rate 144 H Respiratory Rate 20 Blood Pressure 171/101 H Pulse Oximetry 98 Oxygen Delivery Method Room Air BMI result Body Mass Index 27.7 Const Other: Appearance: Alert. Oriented X3. No acute distress. Eyes: Pupils equal, round and reactive to light. ENT: Pharynx normal. Neck: Normal inspection. Neck supple. No lymph nodes noted. No crepitus CVS: Normal heart rate and rhythm. Pulses normal. Normal S1 and S2 Respiratory: No respiratory distress. Breath sounds normal. No Wheezing. No rales Abdomen: Soft and nontender. No rigidity. No distention. Skin: Skin warm and dry. Normal skin color. Normal skin turgor. Extremities: No lower extremity edema. No Lacerations. No Rash Neuro: Oriented X 3. No motor deficit. No sensory deficit. Moving all extremities. No slurred speech. CN 2 through 12 grossly intact Psych: calm, cooperative, normal affect Medical Decision Making Medical Decision Making MDM Narrative: My interpretation of labs, no significant abnormality in patient's hematology are chemistry, LFTs chronically elevated 354 for EtOH The last time the patient drank alcohol was approximately 12 hours ago. I was informed by the patient's nurse that the blood pressure is still elevated, in the 1 40s to 170s. Heart rate still in the 130s. Patient was given Ativan, Valium Patient is still hypertensive, tachycardic, feeling shaky, uncomfortable, seems that patient is starting to withdrawal from alcohol. I discussed the patient with Dr. Schneider from the Medicine team, patient being admitted. We are starting the phenobarb protocol Differential Diagnosis Differential Diagnoses: The differential diagnosis associated with the presentation includes (Alcohol intoxication, alcohol withdrawal) Admission/Observation Consideration of admission/observation: Escalation of care including admission/observation considered Lab Data [facility] Lab Attestation statement: I reviewed the patient's lab results. 07/19/24 18:53 07/19/24 18:53 Labs: Lab Results 07/19/24 07/19/24 Range/Units 18:53 19:19 WBC 5.6 (4.8-10.8) X10*3/uL RBC 5.87 H (4.60-5.80) X10*6/uL Hgb 16.8 (14.0-18.0) g/dl Hct 47.1 (42.0-52.0) % MCV 80.2 (80.0-98.0) fL MCH 28.6 (27.0-33.0) pg MCHC 35.7 (31.0-36.0) g/dl RDW 13.2 (11.0-16.0) % Plt Count 216 (160-400) X10*3/uL MPV 9.7 (9.4-12.4) fL Immature Gran % (Auto) 0.2 (0.0-0.4) % Neut % (Auto) 53.5 (45-73) % Lymph % (Auto) 33.2 (20-40) % [place] % (Auto) 10.2 (2-11) % Eos % (Auto) 2.2 (0-4) % Baso % (Auto) 0.7 (0-2) % Lymph # (Auto) 1.9 (1.2-4.9) X10*3/uL [place] # (Auto) 0.6 (0.1-1.2) X10*3/uL Eos # (Auto) 0.1 (0.0-0.4) X10*3/uL Baso # (Auto) 0.0 (0.0-0.2) X10*3/uL Abs Immat Gran (auto) 0.01 (0.00-0.03) X10*3/uL Absolute Neuts (auto) 3.0 (2.0-8.3) x10*3/uL Absolute Nucleated RBC 0.000 (0.0-0.012) X10*3/uL Nucleated RBC % (auto) 0.0 (0.0-0.2) /100WBC Sodium 141 (135-145) mmol/L Potassium 4.0 (3.3-5.1) mmol/L Chloride 99 (96-108) mmol/L Carbon Dioxide 22 (22-29) mmol/L Anion Gap 24 H (12-20) BUN 9 (9-16) mg/dL Creatinine 0.78 (0.5-1.4) mg/dL Estim Creat Clear Calc 134.6 Estimated GFR > 60 Random Glucose 98 (60-115) mg/dL Calcium 9.3 (8.4-10.2) mg/dL Magnesium 2.5 (1.6-2.6) mg/dL Total Bilirubin 0.5 (0.0-1.0) mg/dL Direct Bilirubin 0.2 (0.0-0.5) mg/dL AST 61 H (5-37) U/L ALT 67 H (0-40) U/L Alkaline Phosphatase 61 (39-117) U/L Total Protein 9.5 H (6.5-8.0) g/dL Albumin 5.1 H (3.5-5.0) g/dL Urine Opiates Screen Not Detected (Not Detect) Ur Buprenorphine Scrn Not Detected (Not Detect) ng/mL Ur Oxycodone Screen Not Detected (Not Detect) ng/mL Urine Methadone Screen Not Detected (Not Detect) ng/mL Urine Fentanyl Screen Not Detected (Not Detect) Ur Barbiturates Screen Not Detected (Not Detect) Ur Phencyclidine Scrn Not Detected (Not Detect) Ur Amphetamines Screen Not Detected (Not Detect) U Benzodiazepines Scrn Not Detected (Not Detect) Urine Cocaine Screen Not Detected (Not Detect) U Marijuana (THC) Screen Not Detected (Not Detect) Ethyl Alcohol 354 H* mg/dL Medications Administered Discontinued Medications Generic Name Dose Route Start Last Admin Trade Name Freq PRN Reason Stop Dose Admin Diazepam 2 mg 07/19/24 20:28 07/19/24 20:33 Diazepam 2 Mg Tablet PO 07/19/24 20:29 2 mg ONCE ONE Administration Lorazepam 2 mg 07/19/24 18:34 07/19/24 18:43 Lorazepam 1 Mg Tablet PO 07/19/24 18:35 2 mg ONCE ONE Administration Critical Care Time Critical Care Time Critical Care Time: Yes Total Critical Care Time: 60 Attestation: I have personally provided critical care time. Time includes review of lab data, radiology results, discussion with consultants, and monitoring for potential decompensation. Intervention performed as documented. Discharge Plan Discharge Clinical Impression: Alcohol withdrawal, Alcohol abuse Patient Disposition: Admitted As Inpatient Prescriptions: No Action Vivitrol 380 mg suspension,extended rel recon 380 mg IM Q28D Qty: 1 12RF buspirone 30 mg tablet 30 mg PO BID Qty: 60 0RF trazodone 50 mg tablet 50 mg PO BEDTIME Qty: 30 0RF fluoxetine 40 mg capsule 40 mg PO DAILY Qty: 90 0RF omeprazole 20 mg capsule,delayed release(DR/EC) 20 mg PO DAILY Qty: 90 0RF acamprosate 333 mg tablet,delayed release (DR/EC) 666 mg PO TID Qty: 180 0RF Print Language: Polish
[2024-07-19 22:53] VITALS: BP 142/98; PULSE 134; RESP 20; TEMP 37; O2SAT 96
--- NOTE | 2024-07-19 23:03 | PC.NURSE ---
pt change house attendant into hospital attire, food try given, pt place on bedside monitor.
[2024-07-19] MEDS: PHENobarbitaL sodium 130 MG/ML IM ONCE 328 MG IM (23:09)
[2024-07-19] MEDS: 0.9 % Sodium Chloride 1,000 ML 999 ML IVCONT (23:10)
--- NOTE | 2024-07-19 23:14 | PM.IMHP ---
History of Present Illness Date of Service: 07/19/24 Chief Complaint: Alcohol withdrawal This is a 38-year-old male with pertinent history of alcohol use disorder with history of alcohol withdrawals, gastroesophageal reflux disease, hypertension, right upper extremity DVT no longer on Eliquis, mood disorder who presents to the emergency department for concerns of alcohol withdrawal. Patient stopped drinking on the day of presentation and has been having withdrawal symptoms like anxiety and shaking. He seeking detox. States he was doing well for several months until he recently relapsed. Also has been struggling with depression, no suicidal or homicidal ideation. Has associated nausea. No fever, chills, chest pain, palpitations, shortness of breath, abdominal pain, changes in urinary or bowel habits. In the emergency department, patient initiated on phenobarb protocol Review of Systems Constitutional: Constitutional: Reports fatigue, Reports lethargy and Reports malaise Cardiovascular: Cardiovascular: Reports no additional cardiovascular complaints Respiratory: Respiratory: Reports no additional respiratory complaints Genitourinary: Genitourinary: Reports no additional male genitourinary complaints Musculoskeletal: Musculoskeletal: Reports no additional musculoskeletal complaints Neurologic: Reports tremor(s) Psychiatric: Psychiatric: Reports anxiety Endocrine: Endocrine: Reports fatigue [facility] Medical History Deep vein thrombosis, upper right extremity Alcohol use disorder, severe, dependence Alcohol abuse Elevated LFTs Recurrent major depression-severe Alcohol withdrawal syndrome Hypertension Anxiety and depression Psychiatric disturbance Family History Other Lung cancer Social History Household Members: None Housing: House Do you presently have visiting nurse or other home services: No Alcohol intake: current Alcohol intake frequency: 3 or more drinks per day Alcohol type: beer and wine Comment: patient refusing alarms Patient Tobacco Use Status: Never used Tobacco Smoked in Last 30 Days: No e-Cigarette/Vaping Use: Never Used Second Hand Smoke Exposure: No Use of substances other than those prescribed or required for medical reasons: No Substance Use Type: Marijuana Advance Directives: Yes Advance Directives on File: Yes Advance Directives Date on File: 01/08/21 Do you have a plan to hurt others: No Plan service: No Current occupational status: unemployed Sexual orientation: Straight/Heterosexual Meds Allergies Allergy/AdvReac Type Severity Reaction Status Date / Time No Known Allergies Allergy Unknown UNKNOWN Verified 07/19/24 18:05 [NO KNOWN ALLERGIES] Active Medications: Current Medications Acetaminophen (Acetaminophen 325 Mg Tablet) 650 mg PO Q6H PRN PRN Reason: Pain, Mild 1-3,fever,headache Calcium Carbonate (Calcium Carbonate 750 Mg Tab.Chew) 750 mg PO Q4H PRN PRN Reason: Heartburn Enoxaparin Sodium (Enoxaparin Sodium 40 Mg/0.4 Ml Syringe) 40 mg SUBCUT Q24H VANESSA Sodium Chloride (Ns) 1,000 mls @ 999 mls/hr IVCONT .Q1H1M ONE Stop: 07/19/24 23:51 Last Admin: 07/19/24 23:10 Dose: 999 mls/hr Thiamine HCl 200 mg/ Sodium (Chloride) 102 mls @ 204 mls/hr IV ONCE ONE Stop: 07/19/24 23:40 Magnesium Hydroxide (Milk Of Magnesia 30 Ml Oral.Susp) 30 ml PO DAILY PRN PRN Reason: Constipation Melatonin (Melatonin 3 Mg Tablet) 6 mg PO BEDTIME PRN PRN Reason: Insomnia Ondansetron HCl (Ondansetron Hcl 4 Mg/2 Ml Vial) 4 mg IVPUSH Q8H PRN PRN Reason: Nausea and Vomiting Pharmacy Consult (Consult Rx Etoh Phenob Im/Po) 1 each MISCELLANE ONCE PRN; Protocol PRN Reason: Consult order Phenobarbital (Phenobarbital 15 Mg Tablet) 45 mg PO BID [facility] Stop: 07/21/24 21:01 Phenobarbital (Phenobarbital 30 Mg Tablet) 30 mg PO BID [facility] Stop: 07/23/24 21:01 Phenobarbital (Phenobarbital 30 Mg Tablet) 30 mg PO DAILY [facility] Stop: 07/25/24 09:01 Phenobarbital Sodium (Phenobarbital Sodium 130 Mg/Ml Vial Im Q3hx2) 246 mg IM Q3H [facility] Stop: 07/20/24 05:01 Sodium Chloride (0.9 % Sodium Chloride Flush 3 Ml Syringe) 3 ml IVFLUSH QSHIFT [facility] Thiamine HCl (Thiamine Hcl 100 Mg Tablet) 100 mg PO DAILY [facility] Physical Exam Vital Signs and Narrative: Vital Signs: Last Vital Signs Temp 98.6 F 07/19/24 22:53 Pulse 134 H 07/19/24 22:53 Resp 20 07/19/24 22:53 BP 142/98 H 07/19/24 22:53 Pulse Ox 96 07/19/24 22:53 O2 Del Method Room Air 07/19/24 22:53 BMI result Body Mass Index 27.7 Middle-aged male lying in bed in no distress Neck supple, no JVD Regular rate and rhythm, S1-S2 heard Regular breath sounds bilaterally, no wheezing or crackles appreciated Abdomen soft nontender, no guarding, no rigidity Patient is awake, alert and oriented to self, place, time and person ; no focal motor deficit Psych: Anxious No pedal edema Results Labs 07/19/24 18:53 07/19/24 18:53 Labs: Laboratory Results - last 24 hr 07/19/24 07/19/24 18:53 19:19 MCV 80.2 MCH 28.6 MCHC 35.7 RDW 13.2 Plt Count 216 MPV 9.7 Immature Gran % (Auto) 0.2 Neut % (Auto) 53.5 Lymph % (Auto) 33.2 [place] % (Auto) 10.2 Eos % (Auto) 2.2 Baso % (Auto) 0.7 Lymph # (Auto) 1.9 [place] # (Auto) 0.6 Eos # (Auto) 0.1 Baso # (Auto) 0.0 Abs Immat Gran (auto) 0.01 Absolute Neuts (auto) 3.0 Absolute Nucleated RBC 0.000 Nucleated RBC % (auto) 0.0 Anion Gap 24 H Estim Creat Clear Calc 134.6 Estimated GFR > 60 Random Glucose 98 Calcium 9.3 Magnesium 2.5 Total Bilirubin 0.5 Direct Bilirubin 0.2 AST 61 H ALT 67 H Alkaline Phosphatase 61 Total Protein 9.5 H Albumin 5.1 H Urine Opiates Screen Not Detected Ur Buprenorphine Scrn Not Detected Ur Oxycodone Screen Not Detected Urine Methadone Screen Not Detected Urine Fentanyl Screen Not Detected Ur Barbiturates Screen Not Detected Ur Phencyclidine Scrn Not Detected Ur Amphetamines Screen Not Detected U Benzodiazepines Scrn Not Detected Urine Cocaine Screen Not Detected U Marijuana (THC) Screen Not Detected Ethyl Alcohol 354 H* Assessment and Plan (1) Alcohol withdrawal: Status: Acute (2) Alcohol abuse: Status: Acute Plan This is a 38-year-old male with pertinent history of alcohol use disorder with history of alcohol withdrawals, gastroesophageal reflux disease, hypertension, right upper extremity DVT no longer on Eliquis, mood disorder who presents to the emergency department for concerns of alcohol withdrawal. #. Alcohol withdrawal in a patient with alcohol use disorder: Will admit patient with phenobarb protocol. Monitor CIWA. Initiating thiamine. Consulted Addiction Team, appreciate assistance #. Mood disorder: Continue home mood stabilizers. No SI or HI during admission #. Gastroesophageal reflux disease: On PPI Med rec pending Admit as inpatient and will require two night minimum hospital stay for management of alcohol withdrawal (as above), which is not possible in a lesser acute setting. Quality Stroke Does the patient have a stroke diagnosis?: No VTE Prior VTE?: No VTE Risk Level:: Medical - moderate - high VTE Device Contraindication: Treatment Not Indicated VTE Drug Contraindication: N/A - Med Ordered
[2024-07-20] MEDS: Thiamine HCL 200 MG in 0.9 % Sodium Chloride 100 ML 204 MG IV (00:24)
[2024-07-20] MEDS: Dextrose 5 % and Lactated Ring 1,000 ML 125 ML IVCONT (00:59)
[2024-07-20] MEDS: PHENobarbitaL sodium 130 MG/ML VIAL IM Q3Hx2 246 MG IM ×2 (02:03→05:40)
[2024-07-20] MEDS: 0.9 % Sodium Chloride Flush 3 ML SYRINGE IVFLUSH ×4 (02:07→20:12)
[2024-07-20 02:08] VITALS: BP 138/85; PULSE 116; RESP 20; O2SAT 98
--- NOTE | 2024-07-20 02:09 | PC.NURSE ---
pt medicated per mar.
[2024-07-20] MEDS: ondansetron HCL 4 MG/2 ML VIAL IVPUSH ×2 (04:11→14:23)
[2024-07-20 05:11] LABS: MANUAL DIFF FLAG NO
[2024-07-20 05:12] LABS: Basophils Percent Auto 0.8 % (0-2); Eosinophils Percent Auto 0.4 % (0-4); Hematocrit 40.5 % (42.0-52.0); Imm Gran Abs Auto 0.02 X10*3/uL (0.00-0.03); Imm Gran Pct Auto 0.4 % (0.0-0.4); Lymphocytes Absolute Auto 1.3 X10*3/uL (1.2-4.9); Lymphocytes Percent Auto 23.9 % (20-40); Mean Corpuscular HGB Conc 34.6 g/dl (31.0-36.0); Mean Corpuscular Hemoglobin 28.6 pg (27.0-33.0); Mean Corpuscular Volume 82.8 fL (80.0-98.0); Mean Platelet Volume 9.8 fL (9.4-12.4); Monocytes Absolute Auto 0.8 X10*3/uL (0.1-1.2); Monocytes Percent Auto 14.9 % (2-11); Neutrophils Absolute Auto 3.1 x10*3/uL (2.0-8.3); Neutrophils Percent Auto 59.6 % (45-73); Platelet Count 154 X10*3/uL (160-400); Red Blood Count 4.89 X10*6/uL (4.60-5.80); Red Cell Distribution Width 13.1 % (11.0-16.0); White Blood Count 5.2 X10*3/uL (4.8-10.8)
[2024-07-20 05:31] LABS: Anion Gap 16 (12-20); Blood Urea Nitrogen 15 mg/dL (9-16); Calcium 8.9 mg/dL (8.4-10.2); Carbon Dioxide 23 mmol/L (22-29); Chloride 100 mmol/L (96-108); Creatinine Clr Calc Pharmacy 120.6; Estimated Glomerular Filt Rate > 60; Glucose Random 116 mg/dL (60-115); Potassium 3.6 mmol/L (3.3-5.1); Sodium 135 mmol/L (135-145)
--- NOTE | 2024-07-20 05:44 | PC.NURSE ---
pt medicated per jul, pt given water, pt resting in bed.
--- NOTE | 2024-07-20 09:03 | PHA.MEDREC ---
Addendum entered by Mukul Boyer RP 07/20/24 09:06: MED REC CHECKED BY [facility] Original Note: Pharmacy Consult ? Medication Reconciliation Pharmacy has completed the medication reconciliation. Spoke with patient to confirm medications. He last took them 2-3 days ago.
[2024-07-20] MEDS: Thiamine HCL 100 MG TABLET PO (09:16)
[2024-07-20] MEDS: PHENobarbitaL 15 MG TABLET 45 MG PO ×2 (09:16→20:10)
[2024-07-20] MEDS: Enoxaparin Sodium 40 MG/0.4 ML SYRINGE SUBCUT (09:17)
[2024-07-20 09:21] VITALS: BP 163/108; PULSE 103; RESP 18; O2SAT 96
--- NOTE | 2024-07-20 11:04 | HO.PM.IMPN ---
Subjective Subjective Date of Service: 07/20/24 Physical Exam Vital Signs: Vital Signs: Last Vital Signs Temp 98.6 F 07/19/24 22:53 Pulse 103 H 07/20/24 09:21 Resp 18 07/20/24 09:21 BP 163/108 H 07/20/24 09:21 Pulse Ox 96 07/20/24 09:21 O2 Del Method Room Air 07/20/24 09:21 BMI result Body Mass Index 27.7 Objective Data Active Medications Acetaminophen (Acetaminophen 325 Mg Tablet) 650 mg PO Q6H PRN PRN Reason: Pain, Mild 1-3,fever,headache Calcium Carbonate (Calcium Carbonate 750 Mg Tab.Chew) 750 mg PO Q4H PRN PRN Reason: Heartburn Enoxaparin Sodium (Enoxaparin Sodium 40 Mg/0.4 Ml Syringe) 40 mg SUBCUT Q24H [facility] Last Admin: 07/20/24 09:17 Dose: 40 mg Documented By: CORIN Fluoxetine HCl (Fluoxetine Hcl 20 Mg Capsule) 40 mg PO DAILY [facility] Magnesium Hydroxide (Milk Of Magnesia 30 Ml Oral.Susp) 30 ml PO DAILY PRN PRN Reason: Constipation Melatonin (Melatonin 3 Mg Tablet) 6 mg PO BEDTIME PRN PRN Reason: Insomnia Omeprazole (Omeprazole 20 Mg Capsule.Dr) 20 mg PO DAILY@0630 [facility] Ondansetron HCl (Ondansetron Hcl 4 Mg/2 Ml Vial) 4 mg IVPUSH Q8H PRN PRN Reason: Nausea and Vomiting Last Admin: 07/20/24 04:11 Dose: 4 mg Documented By: ANNALISA Pharmacy Consult (Consult Rx Etoh Phenob Im/Po) 1 each MISCELLANE ONCE PRN; Protocol PRN Reason: Consult order Phenobarbital (Phenobarbital 15 Mg Tablet) 45 mg PO BID [facility] Stop: 07/21/24 21:01 Last Admin: 07/20/24 09:16 Dose: 45 mg Documented By: CORIN Phenobarbital (Phenobarbital 30 Mg Tablet) 30 mg PO BID [facility] Stop: 07/23/24 21:01 Phenobarbital (Phenobarbital 30 Mg Tablet) 30 mg PO DAILY [facility] Stop: 07/25/24 09:01 Sodium Chloride (0.9 % Sodium Chloride Flush 3 Ml Syringe) 3 ml IVFLUSH QSHIFT [facility] Last Admin: 07/20/24 02:07 Dose: 3 ml Documented By: ANNALISA Thiamine HCl (Thiamine Hcl 100 Mg Tablet) 100 mg PO DAILY [facility] Last Admin: 07/20/24 09:16 Dose: 100 mg Documented By: CORIN Trazodone HCl (Trazodone Hcl 50 Mg Tablet) 50 mg PO BEDTIME [facility] Labs 07/20/24 04:49 07/20/24 04:49 Labs: Laboratory Results - last 24 hr 07/19/24 07/19/24 07/20/24 18:53 19:19 04:49 MCV 80.2 82.8 MCH 28.6 28.6 MCHC 35.7 34.6 RDW 13.2 13.1 Plt Count 216 154 L D MPV 9.7 9.8 Immature Gran % (Auto) 0.2 0.4 Neut % (Auto) 53.5 59.6 Lymph % (Auto) 33.2 23.9 [place] % (Auto) 10.2 14.9 H Eos % (Auto) 2.2 0.4 Baso % (Auto) 0.7 0.8 Lymph # (Auto) 1.9 1.3 [place] # (Auto) 0.6 0.8 Eos # (Auto) 0.1 0.0 Baso # (Auto) 0.0 0.0 Abs Immat Gran (auto) 0.01 0.02 Absolute Neuts (auto) 3.0 3.1 Absolute Nucleated RBC 0.000 0.000 Nucleated RBC % (auto) 0.0 0.0 Anion Gap 24 H 16 Estim Creat Clear Calc 134.6 120.6 Estimated GFR > 60 > 60 Random Glucose 98 116 H Calcium 9.3 8.9 Magnesium 2.5 Total Bilirubin 0.5 Direct Bilirubin 0.2 AST 61 H ALT 67 H Alkaline Phosphatase 61 Total Protein 9.5 H Albumin 5.1 H Urine Opiates Screen Not Detected Ur Buprenorphine Scrn Not Detected Ur Oxycodone Screen Not Detected Urine Methadone Screen Not Detected Urine Fentanyl Screen Not Detected Ur Barbiturates Screen Not Detected Ur Phencyclidine Scrn Not Detected Ur Amphetamines Screen Not Detected U Benzodiazepines Scrn Not Detected Urine Cocaine Screen Not Detected U Marijuana (THC) Screen Not Detected Ethyl Alcohol 354 H* Assessment and Plan (1) Alcohol abuse: Status: Acute (2) Alcohol withdrawal: Status: Acute Plan This is a 38-year-old male with pertinent history of alcohol use disorder with history of alcohol withdrawals, gastroesophageal reflux disease, hypertension, right upper extremity DVT no longer on Eliquis, mood disorder who presents to the emergency department for concerns of alcohol withdrawal. # Alcohol withdrawal with Hx of alcohol use disorder CIWA continue phenobarb protocol thiamine Addiction Team consult advised to quit # Mood disorder Continue home mood stabilizers. No SI or HI during admission # Gastroesophageal reflux disease On PPI Admit as inpatient and will require overnight hospital stay for management of alcohol withdrawal (as above), which is not possible in a lesser acute setting. Quality Stroke Does the patient have a stroke diagnosis?: No VTE Prior VTE?: No VTE Risk Level:: Medical - moderate - high VTE Device Contraindication: Treatment Not Indicated VTE Drug Contraindication: N/A - Med Ordered
[2024-07-20] MEDS: Omeprazole 20 MG CAPSULE.DR PO (11:31)
--- NOTE | 2024-07-20 11:59 | MHC.CM.PN ---
Pt lives alone, he is functionally independent, no home care services or DME. PCP confirmed: Dr. Ordonez. HCP discussed, pt . declined to complete form. He is able to arrange transport home at DC. DCP: home, self care. CM to follow for DC needs.
[2024-07-20 15:20] VITALS: BP 155/94; PULSE 70; RESP 16; TEMP 37; O2SAT 98
[2024-07-20] MEDS: Acetaminophen 325 MG TABLET 650 MG PO (15:28)
[2024-07-20] MEDS: Flu Vacc TS2024-25(6mos up)/PF 0.5 ML SYRINGE IM (15:30)
[2024-07-20] MEDS: PHENobarbitaL sodium 130 MG/ML VIAL IM (16:23)
[2024-07-20 20:08] VITALS: BP 161/96; PULSE 76; RESP 16; TEMP 36.9; O2SAT 96
[2024-07-20] MEDS: traZODone HCL 50 MG TABLET PO (20:10)
[2024-07-20 23:54] VITALS: BP 133/80; PULSE 50; RESP 16; TEMP 36; O2SAT 96
[2024-07-21] MEDS: Omeprazole 20 MG CAPSULE.DR PO (06:01)
[2024-07-21 07:32] VITALS: BP 141/85; PULSE 60; RESP 14; TEMP 36.2; O2SAT 95
[2024-07-21 07:58] LABS: MANUAL DIFF FLAG NO
[2024-07-21 08:05] LABS: Basophils Percent Auto 0.9 % (0-2); Eosinophils Absolute Auto 0.1 X10*3/uL (0.0-0.4); Eosinophils Percent Auto 1.4 % (0-4); Hematocrit 42.4 % (42.0-52.0); Hemoglobin 14.8 g/dl (14.0-18.0); Imm Gran Abs Auto 0.01 X10*3/uL (0.00-0.03); Imm Gran Pct Auto 0.3 % (0.0-0.4); Lymphocytes Absolute Auto 1.4 X10*3/uL (1.2-4.9); Lymphocytes Percent Auto 39.3 % (20-40); Mean Corpuscular HGB Conc 34.9 g/dl (31.0-36.0); Mean Platelet Volume 10.3 fL (9.4-12.4); Monocytes Absolute Auto 0.5 X10*3/uL (0.1-1.2); Monocytes Percent Auto 14.8 % (2-11); Neutrophils Absolute Auto 1.5 x10*3/uL (2.0-8.3); Neutrophils Percent Auto 43.3 % (45-73); Platelet Count 130 X10*3/uL (160-400); Red Blood Count 5.11 X10*6/uL (4.60-5.80); Red Cell Distribution Width 12.8 % (11.0-16.0); White Blood Count 3.5 X10*3/uL (4.8-10.8)
[2024-07-21 08:17] LABS: Anion Gap 15 (12-20); Blood Urea Nitrogen 13 mg/dL (9-16); Calcium 9.4 mg/dL (8.4-10.2); Carbon Dioxide 27 mmol/L (22-29); Chloride 100 mmol/L (96-108); Creatinine Clr Calc Pharmacy 136.3; Estimated Glomerular Filt Rate > 60; Glucose Random 87 mg/dL (60-115); Potassium 3.2 mmol/L (3.3-5.1); Sodium 139 mmol/L (135-145)
[2024-07-21] MEDS: Enoxaparin Sodium 40 MG/0.4 ML SYRINGE SUBCUT (08:54)
[2024-07-21] MEDS: Thiamine HCL 100 MG TABLET PO (08:54)
[2024-07-21] MEDS: FLUoxetine HCl 20 MG CAPSULE 40 MG PO (08:54)
[2024-07-21] MEDS: 0.9 % Sodium Chloride Flush 3 ML SYRINGE IVFLUSH ×3 (08:54→22:32)
[2024-07-21] MEDS: PHENobarbitaL 15 MG TABLET 45 MG PO ×2 (08:55→21:26)
--- NOTE | 2024-07-21 11:45 | HO.PM.IMPN ---
Subjective Subjective Date of Service: 07/21/24 Interval History: seen and evaluated this morning feels better scoring on CIWA having tremors no other events Review of Systems Review of Systems: Yes all other systems are reviewed and are negative Physical Exam Vital Signs: Vital Signs: Last Vital Signs Temp 97.2 F 07/21/24 07:32 Pulse 60 07/21/24 07:32 Resp 14 07/21/24 07:32 BP 141/85 H 07/21/24 07:32 Pulse Ox 95 07/21/24 07:32 O2 Del Method Room Air 07/21/24 07:32 O2 Flow Rate 98 07/20/24 15:20 BMI result Body Mass Index 27.7 Const: Other: Constitutional : interactive, not in distress, anxious Cardiovascular : no JVP, no lower extremity edema Respiratory : bilateral chest movement, not in resp distress Gastrointestinal: soft, lax, Non tender Skin : Warm, Dry Neurological : Alert & oriented , No focal deficit, tremor Objective Data Active Medications Acetaminophen (Acetaminophen 325 Mg Tablet) 650 mg PO Q6H PRN PRN Reason: Pain, Mild 1-3,fever,headache Last Admin: 07/20/24 15:28 Dose: 650 mg Documented By: FRANKIE Calcium Carbonate (Calcium Carbonate 750 Mg Tab.Chew) 750 mg PO Q4H PRN PRN Reason: Heartburn Enoxaparin Sodium (Enoxaparin Sodium 40 Mg/0.4 Ml Syringe) 40 mg SUBCUT Q24H [facility] Last Admin: 07/21/24 08:54 Dose: 40 mg Documented By: MICKEY Fluoxetine HCl (Fluoxetine Hcl 20 Mg Capsule) 40 mg PO DAILY [facility] Last Admin: 07/21/24 08:54 Dose: 40 mg Documented By: MICKEY Hydroxyzine HCl (Hydroxyzine Hcl 25 Mg Tablet) 25 mg PO Q6H PRN PRN Reason: anxiety/restlessness Magnesium Hydroxide (Milk Of Magnesia 30 Ml Oral.Susp) 30 ml PO DAILY PRN PRN Reason: Constipation Melatonin (Melatonin 3 Mg Tablet) 6 mg PO BEDTIME PRN PRN Reason: Insomnia Omeprazole (Omeprazole 20 Mg Capsule.Dr) 20 mg PO DAILY@0630 [facility] Last Admin: 07/21/24 06:01 Dose: 20 mg Documented By: MARTHA Ondansetron HCl (Ondansetron Hcl 4 Mg/2 Ml Vial) 4 mg IVPUSH Q8H PRN PRN Reason: Nausea and Vomiting Last Admin: 07/20/24 14:23 Dose: 4 mg Documented By: DOMINIC Pharmacy Consult (Consult Rx Etoh Phenob Im/Po) 1 each MISCELLANE ONCE PRN; Protocol PRN Reason: Consult order Phenobarbital (Phenobarbital 15 Mg Tablet) 45 mg PO BID [facility] Stop: 07/21/24 21:01 Last Admin: 07/21/24 08:55 Dose: 45 mg Documented By: MICKEY Phenobarbital (Phenobarbital 30 Mg Tablet) 30 mg PO BID [facility] Stop: 07/23/24 21:01 Phenobarbital (Phenobarbital 30 Mg Tablet) 30 mg PO DAILY [facility] Stop: 07/25/24 09:01 Phenobarbital Sodium (Phenobarbital Sodium 130 Mg/Ml Vial) 130 mg IM ONCE PRN PRN Reason: Alcohol Withdrawal Sodium Chloride (0.9 % Sodium Chloride Flush 3 Ml Syringe) 3 ml IVFLUSH QSHIFT [facility] Last Admin: 07/21/24 08:54 Dose: 3 ml Documented By: MICKEY Thiamine HCl (Thiamine Hcl 100 Mg Tablet) 100 mg PO DAILY [facility] Last Admin: 07/21/24 08:54 Dose: 100 mg Documented By: MICKEY Trazodone HCl (Trazodone Hcl 50 Mg Tablet) 50 mg PO BEDTIME [facility] Last Admin: 07/20/24 20:10 Dose: 50 mg Documented By: MARTHA Labs 07/21/24 05:55 07/21/24 05:55 Labs: Laboratory Results - last 24 hr 07/21/24 05:55 MCV 83.0 MCH 29.0 MCHC 34.9 RDW 12.8 Plt Count 130 L MPV 10.3 Immature Gran % (Auto) 0.3 Neut % (Auto) 43.3 L Lymph % (Auto) 39.3 [place] % (Auto) 14.8 H Eos % (Auto) 1.4 Baso % (Auto) 0.9 Lymph # (Auto) 1.4 [place] # (Auto) 0.5 Eos # (Auto) 0.1 Baso # (Auto) 0.0 Abs Immat Gran (auto) 0.01 Absolute Neuts (auto) 1.5 L Absolute Nucleated RBC 0.000 Nucleated RBC % (auto) 0.0 Anion Gap 15 Estim Creat Clear Calc 136.3 Estimated GFR > 60 Random Glucose 87 Calcium 9.4 Assessment and Plan (1) Alcohol abuse: Status: Acute (2) Alcohol withdrawal: Status: Acute Plan This is a 38-year-old male with pertinent history of alcohol use disorder with history of alcohol withdrawals, gastroesophageal reflux disease, hypertension, right upper extremity DVT no longer on Eliquis, mood disorder who presents to the emergency department for concerns of alcohol withdrawal. # Alcohol withdrawal with Hx of alcohol use disorder CIWA scoring around 5 , trending down continue phenobarb protocol thiamine PRN PHenobarb if needed Addiction Team consult advised to quit # Mood disorder Continue home mood stabilizers. No SI or HI during admission # Gastroesophageal reflux disease On PPI needs inpatient and will require overnight hospital stay for management of alcohol withdrawal , which is not possible in a lesser acute setting. Quality Stroke Does the patient have a stroke diagnosis?: No VTE Prior VTE?: No VTE Risk Level:: Medical - moderate - high VTE Device Contraindication: Treatment Not Indicated VTE Drug Contraindication: N/A - Med Ordered
--- NOTE | 2024-07-21 13:41 | MHC.RECOVRN ---
Met with pt to follow up and provide support. Pt laying in bed, eyes closed, wakes to voice. Pt reports feeling okay. Reports he has left a message with his new employer with the hopes of starting next week. Pt aware of [facility] appt on 07/08 at 3PM. Denies questions or concers for t/w.
[2024-07-21 15:09] VITALS: BP 145/91; PULSE 98; RESP 18; TEMP 36.2; O2SAT 98
[2024-07-21] MEDS: PHENobarbitaL sodium 130 MG/ML VIAL IM (15:36)
[2024-07-21] MEDS: Potassium Chloride Packet 20 MEQ PACKET 40 MEQ PO ×2 (15:36→17:35)
[2024-07-21 21:25] VITALS: BP 144/84; PULSE 80; RESP 16; O2SAT 96
[2024-07-21] MEDS: traZODone HCL 50 MG TABLET PO (21:25)
[2024-07-21 23:26] VITALS: BP 140/71; PULSE 63; RESP 16; TEMP 36; O2SAT 96
[2024-07-22] MEDS: Omeprazole 20 MG CAPSULE.DR PO (05:57)
[2024-07-22 06:10] LABS: Anion Gap 13 (12-20); Blood Urea Nitrogen 12 mg/dL (9-16); Calcium 9.3 mg/dL (8.4-10.2); Carbon Dioxide 27 mmol/L (22-29); Chloride 102 mmol/L (96-108); Creatinine Clr Calc Pharmacy 132.9; Estimated Glomerular Filt Rate > 60; Glucose Random 99 mg/dL (60-115); Sodium 138 mmol/L (135-145)
[2024-07-22] MEDS: 0.9 % Sodium Chloride Flush 3 ML SYRINGE IVFLUSH (07:43)
[2024-07-22] MEDS: FLUoxetine HCl 20 MG CAPSULE 40 MG PO (07:50)
[2024-07-22] MEDS: PHENobarbitaL 30 MG TABLET PO (07:50)
[2024-07-22] MEDS: Thiamine HCL 100 MG TABLET PO (07:50)
[2024-07-22] MEDS: Enoxaparin Sodium 40 MG/0.4 ML SYRINGE SUBCUT (07:51)
[2024-07-22 07:54] VITALS: BP 140/98; PULSE 75; RESP 17; TEMP 36.5; O2SAT 97
--- NOTE | 2024-07-22 11:18 | PM.DS ---
DS: Providers Provider Date of Service: 07/22/24 Date of admission: 07/19/24 23:12 Date of discharge: 07/22/24 Primary care physician: Galen Ordonez MD Consults: 07/19/24 18:33 ED Recovery Team Consult Routine Comment: Reason for consultation: etoh, no si/hi 07/19/24 23:13 Addiction Medicine Routine Consulting Provider: Addiction Covering Reason for consultation: alcohol use disorder DS: Diagnosis Discharge Diagnosis (1) Alcohol abuse: Status: Acute (2) Alcohol withdrawal: Status: Acute (3) Hypokalemia: Status: Acute DS: Summary Hospital Course Hospital Course: Admission note HPI This is a 38-year-old male with pertinent history of alcohol use disorder with history of alcohol withdrawals, gastroesophageal reflux disease, hypertension, right upper extremity DVT no longer on Eliquis, mood disorder who presents to the emergency department for concerns of alcohol withdrawal. Patient stopped drinking on the day of presentation and has been having withdrawal symptoms like anxiety and shaking. He seeking detox. States he was doing well for several months until he recently relapsed. Also has been struggling with depression, no suicidal or homicidal ideation. Has associated nausea. No fever, chills, chest pain, palpitations, shortness of breath, abdominal pain, changes in urinary or bowel habits. In the emergency department, patient initiated on phenobarb protocol Hospital course The patient was admitted for treatment of Alcohol withdrawal with Hx of alcohol use disorder as he was started on Phenobarbital protocol with fair response. CIWA scoring trended down to 0 during hospital stay. he required 1 extra dose of PRN PHenobarb. received Thamine as well. Addiction Team consulted and advised to quit, he will follow as outpatient next week for Naltrexone injection therapy and management planning. Hypokalemia corrected with replacement. To be discharged on Thiamine and Discharge plan We advise you complete abstinence from Alcohol Take Naltrexone 50 mg daily Thiamine 100 mg daily Follow with Nina Gomez next week for further management planning Time Attestation Discharge Coordination Time (in mins): 38 Quality: Safe Use of Opioids Does Pt have an Active Cancer Diagnosis on the Problem List?: No Quality: Stroke Does the patient have a stroke diagnosis?: No Physical Exam Vital Signs: Vital Signs: Last Vital Signs Temp 97.7 F 07/22/24 07:54 Pulse 75 07/22/24 07:54 Resp 17 07/22/24 07:54 BP 140/98 H 07/22/24 07:54 Pulse Ox 97 07/22/24 07:54 O2 Del Method Room Air 07/22/24 07:54 O2 Flow Rate 98 07/20/24 15:20 BMI result Body Mass Index 27.7 Const: Other: Constitutional : interactive, not in distress, not anxious Cardiovascular : no JVP, no lower extremity edema Respiratory : bilateral chest movement, not in resp distress Gastrointestinal: soft, lax, Non tender Skin : Warm, Dry Neurological : Alert & oriented , No focal deficit, no tremor DS: Data Data Completed and Pending Completed studies during hospitalization [Text1]: Procedures Detoxification Services for Substance Abuse Treatment (10/09/23) Labs on day of discharge: Laboratory Results - last 24 hr 07/22/24 05:03 Hold Purple Top SEE NOTE Sodium 138 Potassium 4.0 D Chloride 102 Carbon Dioxide 27 Anion Gap 13 BUN 12 Creatinine 0.79 Estim Creat Clear Calc 132.9 Estimated GFR > 60 Random Glucose 99 Calcium 9.3 Discharge Plan Discharge Anticipated Discharge Date/Time: 07/22/24 11:11 Patient Disposition: Home, Self-Care Discharge Diagnosis: Alcohol withdrawal Referrals: Galen Ordonez MD [Primary Care Provider] - 1 Week Nina Gomez CNP [Nurse Practitioner] - 07/28/24 3:00 pm ([facility] appointment on 07/28/24 at 3PM Please call the office with any questions or concerns) Discharge Medications: New thiamine mononitrate (vit B1) 100 mg Tablet 100 mg PO DAILY Qty: 90 0RF naltrexone 50 mg tablet 50 mg PO DAILY Qty: 7 0RF Continued trazodone 50 mg tablet 50 mg PO BEDTIME Qty: 30 0RF fluoxetine 40 mg capsule 40 mg PO DAILY Qty: 90 0RF omeprazole 20 mg capsule,delayed release(DR/EC) 20 mg PO DAILY Qty: 90 0RF Discharge Orders: Discharge Order (Routine); Ordered 07/22/24 Ordered By: Gerber Pak Diet: Advance to usual diet Activity on Discharge: As tolerated Stand Alone Forms: Patient Portal Discharge page Print Language: Polish Care Plan Goals: We advise you complete abstinence from Alcohol Take Naltrexone 50 mg daily Thiamine 100 mg daily Follow with Nina Gomez next week for further management plannig Health Concerns: Alcohol abuse and withdrawal Plan of Treatment: Naltrexone, Thiamine Recovery team follow up Assessment: as above
--- NOTE | 2024-07-22 11:26 | MHC.CM.PN ---
PT TO DC HOME TODAY WITH NO SERVICES VIA PRIVATE TRANSPORT
== END 2024-07-22 11:45 | disposition home or self-care (01) | DRG 775 ==
LOC: HO.ED 22:53 → HO.EDOVER 23:19 → HO.S3 07-20 14:00
PROVIDERS: Admitting Provider Student in an Organized Health Care Education/Training Program; Emergency Provider Emergency Medicine; PCP Internal Medicine; Visit Provider Student in an Organized Health Care Education/Training Program
DX: F10.239 Alcohol dependence with withdrawal, unspecified (principal); F10.229 Alcohol dependence with intoxication, unspecified; E87.6 Hypokalemia; Y90.8 Blood alcohol level of 240 mg/100 ml or more; F39 Unspecified mood [affective] disorder; K21.9 Gastro-esophageal reflux disease without esophagitis; I10 Essential (primary) hypertension; Z79.899 Other long term (current) drug therapy
CPT/HCPCS: 36415; 80048; 80076; 80307; 83735; 85025; 90656; 99285; J1650; J2405; J2560; J3411; S9485

== ENCOUNTER → 2024-07-19 23:12 | Outpatient (BNV) | payer OTHER, SELFPAY | PROVIDERS: Admitting Provider Student in an Organized Health Care Education/Training Program; Emergency Provider Emergency Medicine; PCP Internal Medicine; Visit Provider Student in an Organized Health Care Education/Training Program | DX: F10.939 Alcohol use, unspecified with withdrawal, unspecified (principal) | CPT/HCPCS: 99222; 99232; 99239 ==

== ENCOUNTER 2024-07-27 16:17 | Emergency (ER) | payer OTHER, SELFPAY ==
[2024-07-27 16:25] VITALS: BP 118/78; BP 146/88; PULSE 94; PULSE 99; RESP 18; TEMP 36.8; O2SAT 97; BMI 27.3
--- NOTE | 2024-07-27 17:01 | ECG_ITS ---
Test Reason : TOX EVAL Blood Pressure : */* mmHG Vent. Rate : 95 BPM Atrial Rate : 95 BPM P-R Int : 170 ms QRS Dur : 86 ms QT Int : 340 ms P-R-T Axes : 33 -4 29 degrees QTcB Int : 427 ms Normal sinus rhythm Normal ECG When compared with ECG of 09-Oct-2023 00:44, No significant change was found Referred By: Dago Jackson Electronically Signed By: Librado Chanel
[2024-07-27 17:32] LABS: Basophils Percent Auto 0.9 % (0-2); Eosinophils Percent Auto 0.9 % (0-4); Hematocrit 45.7 % (42.0-52.0); Hemoglobin 16.1 g/dl (14.0-18.0); Lymphocytes Absolute Auto 1.9 X10*3/uL (1.2-4.9); Lymphocytes Percent Auto 57.8 % (20-40); MANUAL DIFF FLAG SCAN; Mean Corpuscular HGB Conc 35.2 g/dl (31.0-36.0); Mean Corpuscular Volume 82.2 fL (80.0-98.0); Mean Platelet Volume 9.1 fL (9.4-12.4); Monocytes Absolute Auto 0.4 X10*3/uL (0.1-1.2); Neutrophils Percent Auto 28.4 % (45-73); Platelet Count 218 X10*3/uL (160-400); Red Blood Count 5.56 X10*6/uL (4.60-5.80); Red Cell Distribution Width 13.7 % (11.0-16.0); SCAN SMEAR FLAG 1; White Blood Count 3.3 X10*3/uL (4.8-10.8)
[2024-07-27 17:48] LABS: Acetaminophen LAB < 3 mcg/mL (<30); Alanine Aminotransferase 86 U/L (0-40); Albumin Level 4.7 g/dL (3.5-5.0); Alkaline Phosphatase 55 U/L (39-117); Anion Gap 19 (12-20); Aspartate Amino Transferase 50 U/L (5-37); Bilirubin Direct < 0.2 mg/dL (0.0-0.5); Bilirubin Total 0.2 mg/dL (0.0-1.0); Blood Urea Nitrogen 9 mg/dL (9-16); Carbon Dioxide 23 mmol/L (22-29); Chloride 105 mmol/L (96-108); Creatinine Clr Calc Pharmacy 126.1; Estimated Glomerular Filt Rate > 60; Ethanol 398 mg/dL; Glucose Random 82 mg/dL (60-115); Potassium 3.9 mmol/L (3.3-5.1); Salicylate < 5.0 mg/dL (15-30); Sodium 143 mmol/L (135-145); Total Protein 8.7 g/dL (6.5-8.0)
--- NOTE | 2024-07-27 17:49 | PC.NURSE ---
1:1 assist needed to ambulate to the restroom d/t extremely unsteady gait. pt assisted back to bed. urine obtained/sent to lab. addiction medicine consult placed.
[2024-07-27 17:50] LABS: SLIDE REVIEW VERIFIED
[2024-07-27 17:51] LABS: Appearance Urine Clear; Color Urine Yellow; Glucose Urine UA Negative (Negative); Leukocyte Esterase Urine Negative (Negative); Nitrite Urine Negative (Negative); PH 5.5 (5.0-9.0); UMIC TRIGGER UACC YES; Urine Blood Negative (Negative); Urine Ketones Negative (Negative); Urine Protein 30 (1+) mg/dL (Neg-Trace)
[2024-07-27 17:56] LABS: Bacteria Urine None Seen (None Seen); RBC Urine 0-2 /HPF (0-2); Squamous Epithelial Cell Urine 0-2 /HPF (0-2); WBC Urine 0-5 /HPF (0-5)
[2024-07-27 18:04] LABS: Amphetamine Screen Urine Not Detected (Not Detect); Barbiturates, Urine POSITIVE (Not Detect); Benzodiazepines Screen Urine Not Detected (Not Detect); Buprenorphine Scr Not Detected (Not Detect); Cannabinoid Screen Urine Not Detected (Not Detect); Cocaine Screen Urine Not Detected (Not Detect); Fentanyl, urine Not Detected (Not Detect); Methadone Screen, Urine Not Detected (Not Detect); Opiate Screen Urine Not Detected (Not Detect); Oxycodone Screen Urine Not Detected (Not Detect); Phencyclidine Screen Urine Not Detected (Not Detect)
--- NOTE | 2024-07-27 18:14 | ED.GENADULT ---
HPI - General Adult General Chief complaint: ETOH/Substance Use Stated complaint: ETOH, familiar to [facility], HTN @ baseline Time Seen by Provider: 07/27/24 16:45 Source: patient History of Present Illness ED Provider: Renetta HPI narrative: 38yo male with pmhx of AUD, alcohol withdrawal, dvt presenting for detox. Pt has reportedly been binge drinking and was found by his father who was concerned for intoxication. Pt would like assistance with detox. At this time patient has no physical complaints. He denies head pain, neck pain, chest pain, abdominal pain, nausea, vomiting, shortness of breath Related Data Previous Rx's ?Medication ?Instructions ?Recorded trazodone 50 mg tablet 50 mg PO BEDTIME #30 tabs 12/22/23 fluoxetine 40 mg capsule 40 mg PO DAILY #90 caps 02/28/24 omeprazole 20 mg capsule,delayed 20 mg PO DAILY #90 caps 02/28/24 release naltrexone 50 mg tablet 50 mg PO DAILY #7 tabs 07/22/24 thiamine mononitrate (vit B1) 100 100 mg PO DAILY #90 tabs 07/22/24 mg tablet Allergies Allergy/AdvReac Type Severity Reaction Status Date / Time No Known Allergies Allergy Unknown UNKNOWN Verified 07/27/24 16:32 [NO KNOWN ALLERGIES] Review of Systems Review of Systems: Yes all other systems are reviewed and are negative [facility] Past Medical History Attestation statement: The following information was validated with the patient. [facility] Narrative: Alcohol abuse, alcohol withdrawal Source: old records reviewed Medical History Deep vein thrombosis, upper right extremity Alcohol use disorder, severe, dependence Alcohol abuse Elevated LFTs Recurrent major depression-severe Alcohol withdrawal syndrome Hypertension Anxiety and depression Psychiatric disturbance Family History Family History Other Lung cancer Social History Social History Household Members: None Housing: House Do you presently have visiting nurse or other home services: No Alcohol intake: current Alcohol intake frequency: 3 or more drinks per day Alcohol type: beer, wine and hard liquor Comment: patient refusing alarms Patient Tobacco Use Status: Never used Tobacco Smoked in Last 30 Days: No e-Cigarette/Vaping Use: Never Used Second Hand Smoke Exposure: No Use of substances other than those prescribed or required for medical reasons: No Substance Use Type: Marijuana Advance Directives: Yes Advance Directives on File: Yes Advance Directives Date on File: 01/08/21 Do you have a plan to hurt others: No Plan service: No Current occupational status: unemployed Sexual orientation: Straight/Heterosexual Physical Exam ED Vital Signs: Vital Signs - 24 hr 07/27/24 16:25 07/27/24 19:36 07/28/24 01:17 Temperature 98.3 F 98.1 F Pulse Rate 99 119 H 100 Respiratory Rate 18 16 17 Blood Pressure 118/78 132/69 Pulse Oximetry 97 94 95 Oxygen Delivery Method Room Air Room Air Room Air BMI result Body Mass Index 27.3 Somnolent however well-appearing male Alert and orient x4; moving all extremities freely; normal speech and cognition Head atraumatic and normocephalic Lungs clear to auscultation bilaterally Normal S1-S2 regular rate and rhythm Abdomen is soft nontender nondistended Medications Administered Discontinued Medications Generic Name Dose Route Start Last Admin Trade Name Freq PRN Reason Stop Dose Admin Chlordiazepoxide HCl 50 mg 07/27/24 21:17 07/27/24 21:28 Chlordiazepoxide Hcl 25 Mg Capsule PO 07/27/24 21:18 50 mg ONCE ONE Administration Lorazepam 1 mg 07/27/24 18:30 07/27/24 18:36 Lorazepam 1 Mg Tablet PO 07/27/24 18:31 1 mg ONCE ONE Administration Medical Decision Making Medical Decision Making MDM Narrative: 38-year-old male presenting for alcohol intoxication seeking detox - I am concerned for the following; acute intoxication - patient is at risk for withdrawal which I will continue to monitor for - labs, CIWA ordered Lab and imaging interpretation - stable H&H, no white count, electrolytes within normal limits, LFTs at base - UA clean - 398 ethanol On reassessment pt is endorsing withdrawal sxs; CIWA 7 ---> librium ordered Consult to care team and addition medicine placed Pt will remain in ED for evaluation by consulted teams Pt placed in ED obs and signed out to the overnightnight provider Lab Data 07/27/24 17:27 07/27/24 17:27 Labs: Lab Results 02/26/25 02/26/25 02/26/25 Range/Units 17:27 17:45 17:46 WBC 3.3 L (4.8-10.8) X10*3/uL RBC 5.56 (4.60-5.80) X10*6/uL Hgb 16.1 (14.0-18.0) g/dl Hct 45.7 (42.0-52.0) % MCV 82.2 (80.0-98.0) fL MCH 29.0 (27.0-33.0) pg MCHC 35.2 (31.0-36.0) g/dl RDW 13.7 (11.0-16.0) % Plt Count 218 D (160-400) X10*3/uL MPV 9.1 L (9.4-12.4) fL Immature Gran % (Auto) 0.0 (0.0-0.4) % Neut % (Auto) 28.4 L (45-73) % Lymph % (Auto) 57.8 H (20-40) % [place] % (Auto) 12.0 H (2-11) % Eos % (Auto) 0.9 (0-4) % Baso % (Auto) 0.9 (0-2) % Lymph # (Auto) 1.9 (1.2-4.9) X10*3/uL [place] # (Auto) 0.4 (0.1-1.2) X10*3/uL Eos # (Auto) 0.0 (0.0-0.4) X10*3/uL Baso # (Auto) 0.0 (0.0-0.2) X10*3/uL Abs Immat Gran (auto) 0.00 (0.00-0.03) X10*3/uL Absolute Neuts (auto) 1.0 L (2.0-8.3) x10*3/uL Absolute Nucleated RBC 0.000 (0.0-0.012) X10*3/uL Nucleated RBC % (auto) 0.0 (0.0-0.2) /100WBC Smear Tech's Comments VERIFIED Sodium 143 (135-145) mmol/L Potassium 3.9 (3.3-5.1) mmol/L Chloride 105 (96-108) mmol/L Carbon Dioxide 23 (22-29) mmol/L Anion Gap 19 (12-20) BUN 9 (9-16) mg/dL Creatinine 0.82 (0.5-1.4) mg/dL Estim Creat Clear Calc 126.1 Estimated GFR > 60 Random Glucose 82 (60-115) mg/dL Calcium 9.0 (8.4-10.2) mg/dL Total Bilirubin 0.2 (0.0-1.0) mg/dL Direct Bilirubin < 0.2 (0.0-0.5) mg/dL AST 50 H (5-37) U/L ALT 86 H (0-40) U/L Alkaline Phosphatase 55 (39-117) U/L Total Protein 8.7 H (6.5-8.0) g/dL Albumin 4.7 (3.5-5.0) g/dL Lipase 18 (8-78) U/L Urine Color Yellow Urine Appearance Clear Urine pH 5.5 (5.0-9.0) Ur Specific [place] 1.010 (1.005-1.025) Urine Protein 30 (1+) H (Neg-Trace) mg/dL Urine Glucose (UA) Negative (Negative) mg/dL Urine Ketones Negative (Negative) mg/dL Urine Blood Negative (Negative) Urine Nitrite Negative (Negative) Ur Leukocyte Esterase Negative (Negative) Urine RBC 0-2 (0-2) /HPF Urine WBC 0-5 (0-5) /HPF Ur Squamous Epith Cells 0-2 (0-2) /HPF Urine Bacteria None Seen (None Seen) Hyaline Casts 3-5 (0-2) /LPF Salicylates < 5.0 L (15-30) mg/dL Urine Opiates Screen Not Detected (Not Detect) Ur Buprenorphine Scrn Not Detected (Not Detect) ng/mL Ur Oxycodone Screen Not Detected (Not Detect) ng/mL Urine Methadone Screen Not Detected (Not Detect) ng/mL Urine Fentanyl Screen Not Detected (Not Detect) Acetaminophen < 3 (<30) mcg/mL Ur Barbiturates Screen POSITIVE H (Not Detect) Ur Phencyclidine Scrn Not Detected (Not Detect) Ur Amphetamines Screen Not Detected (Not Detect) U Benzodiazepines Scrn Not Detected (Not Detect) Urine Cocaine Screen Not Detected (Not Detect) U Marijuana (THC) Screen Not Detected (Not Detect) Ethyl Alcohol 398 H* mg/dL Discharge Plan Discharge Clinical Impression: Alcohol abuse Patient Disposition: Still a Patient Prescriptions: No Action trazodone 50 mg tablet 50 mg PO BEDTIME Qty: 30 0RF thiamine mononitrate (vit B1) 100 mg Tablet 100 mg PO DAILY Qty: 90 0RF naltrexone 50 mg tablet 50 mg PO DAILY Qty: 7 0RF fluoxetine 40 mg capsule 40 mg PO DAILY Qty: 90 0RF omeprazole 20 mg capsule,delayed release(DR/EC) 20 mg PO DAILY Qty: 90 0RF Print Language: Lao ED Observation ED Observation Admit Reason for Observation: Other Anticipated Goals: Transfer Diagnostic Studies: Other (Care team evaluation) HPI and ROS: History of alcohol abuse presenting for assistance with detox
--- NOTE | 2024-07-27 18:21 | PC.NURSE ---
pt requesting medication to help w/ withdrawal sx. updated CIWA = 3. provider notified/aware.
[2024-07-27] MEDS: LORazepam 1 MG TABLET PO (18:36)
--- NOTE | 2024-07-27 18:37 | PC.NURSE ---
pt medicated per provider order. effectiveness pending.
[2024-07-27 19:07] LABS: Lipase 18 U/L (8-78)
[2024-07-27 19:36] VITALS: BP 132/69; PULSE 119; RESP 16; TEMP 36.7; O2SAT 94
--- OUTSIDE RECORDS SUMMARY | 2024-07-27 19:47 | XMS_ITS | Clinical Summary ---
Author Organization [employer] Address [address] [place] [address] Care Team Providers Care Associate Professor Of Theology Name Role Phone Rory Pham MD Primary Care Prov ider Social History Tobacco Use Types Packs/Day Years Used Date Smoking Tobacco: Never Assessed Sex and Gender Information Value Date Recorded Sex Assigned at Male 12/29/2023 8:23 AM EDT Legal Sex Male 2:18 PM EDT Gender Identity Male 12/29/2023 8:23 AM EDT Sexual Orientation Straight 12/29/2023 8: 23 AM EDT Plan of Treatment Health Maintenance Due Date Last Done Comments Depression Screening 1985 HIV Screening 1985 Lipid Panel 1985 SDOH Screening 1985 Alcohol/Substance Use Screening 1997 Tobacco Screening 1997 Family Planning (PISQ) 2000 Hepatitis C Screening 12/07/2003 Hepatitis B Vaccines (3 of 3 - 19+ 3-dose series) 04/16/2022 02/19/2022, 01/15/2021 COVID-19 Vaccine ( season) 2024 05/28/2021, 09/27/2020, 08/30/2020 Influenza Vaccine (#1) 2024 2, 02/15/2022, 04/17/2021, Additional history exists DTaP/Tdap/Td Vaccines (6 - Td or Tdap) 07/12/2032 07/12/2022, 01/30/2022, 01/30/2022, Additional history exists Zoster Vaccines (1 of 2) 12/07/2035 RSV Patients and Patients Aged 60 years or older (1 - 1-dose 75+ series) 2060 Pneumococcal Vaccine: Pediatrics (0 to 5 Years) and At-Risk Patients (6 to 49) Years) Aged Out 01/11/2021 No longer eligible based on patient's age to complete this topic Hepatitis A Vaccines Completed 02/19/2022, 10/11/19 14 HIB Vaccines Aged Out No longer eligi ble based on patient's age to complete this topic HPV Vaccines Aged Out No longer eligi ble based on patient's age to complete this topic IPV Vaccines Aged Out No longer eligi ble based on patient's age to complete this topic Meningococcal Vaccine Aged Out No slade holly eligible based on patient's age to complete this topic RSV under 20 months Aged Out No longe r eligible based on patient's age to complete this topic Rotavirus Vaccines Aged Out No longer eligible based on patient's age to complete this topic Insurance [facility] Care Teams Associate Professor Of Theology Relationship Specialty Start Date End Date Rory Pham MD [address] [place] [id number] PCP - General Internal Medicine 12/29/23
[2024-07-27] MEDS: chlordiazePOXIDE HCl 25 MG CAPSULE 50 MG PO (21:28)
--- NOTE | 2024-07-27 21:28 | PC.NURSE ---
pt reporting increased anxiety, shaking, tremors, feeling like alcohol w/d symptoms are coming back. unable to recall when his last drink was. answering all other questions appropriately. MD silvestre aware. ordering librium po for symptoms. plan for pt to see care/recovery team.
[2024-07-28 01:17] VITALS: PULSE 100; RESP 17; O2SAT 95
--- NOTE | 2024-07-28 01:55 | PC.NURSE ---
pt sleeping comfortably on stretcher in 6H, respirations even and unlabored. pt within view of nurses station.
--- NOTE | 2024-07-28 02:36 | PC.NURSE ---
pt woke up requesting po ativan and a sandwich. MD Adams aware.
[2024-07-28] MEDS: LORazepam 1 MG TABLET 2 MG PO ×2 (02:52→08:51)
[2024-07-28 04:48] VITALS: BP 114/70; PULSE 109; RESP 17; TEMP 36.4; O2SAT 95
--- NOTE | 2024-07-28 07:59 | PC.NURSE ---
Assumed care of this patient. Patient changed over and is now in 5.
--- NOTE | 2024-07-28 08:31 | MHC.EDTECH ---
Family dropped clothing off with security at front counter attendant. Belongings list updated and items stored in locker 5. Glasses at patient bedside.
[2024-07-28] MEDS: chlordiazePOXIDE HCl 25 MG CAPSULE 100 MG PO (11:54)
[2024-07-28 11:59] VITALS: BP 144/90; PULSE 103; RESP 18; TEMP 36.8; O2SAT 96
--- NOTE | 2024-07-28 13:14 | PHA.MEDREC ---
Addendum entered by Mukul Boyer RP 07/28/24 13:48: MED REC CHECKED BY [facility] Original Note: Pharmacy Consult ? Medication Reconciliation Pharmacy has completed the medication reconciliation. Utilized claims and discharge packet from 07/22/24 to confirm med rec.
[2024-07-28 13:55] VITALS: BP 160/87; PULSE 99; RESP 16; O2SAT 96
--- NOTE | 2024-07-28 13:58 | PC.NURSE ---
Assumed care of patient at 1345, pt is resting comfortably in bed, updated CIWA and vitals. Pt is working with Leah Davenport velvet weaver to determine next steps
--- NOTE | 2024-07-28 14:29 | MHC.RECOVRN ---
Pt dc home. T/w walked pt to [facility] for 3PM appointment.
[2024-07-28 14:40] VITALS: BP 160/87; PULSE 99; RESP 16; TEMP 36.9; O2SAT 96
== END 2024-07-28 14:53 | disposition home or self-care (01) ==
PROVIDERS: Emergency Provider Student in an Organized Health Care Education/Training Program; PCP Internal Medicine
DX: F10.239 Alcohol dependence with withdrawal, unspecified (principal); F12.90 Cannabis use, unspecified, uncomplicated; F10.229 Alcohol dependence with intoxication, unspecified; Y90.8 Blood alcohol level of 240 mg/100 ml or more; Z51.81 Encounter for therapeutic drug level monitoring; Z79.899 Other long term (current) drug therapy; Z71.41 Alcohol abuse counseling and surveillance of alcoholic
CPT/HCPCS: 36415; 80048; 80076; 80143; 80179; 80307; 81001; 83690; 85025; 93005; 99284; 99285; S9485

== ENCOUNTER → 2024-07-27 17:01 | Outpatient (BNV) | payer OTHER, SELFPAY | PROVIDERS: Emergency Provider Student in an Organized Health Care Education/Training Program; PCP Internal Medicine; Visit Provider Internal Medicine Cardiovascular Disease | DX: T57.91XA Toxic effect of unspecified inorganic substance, accidental (unintentional), initial encounter (principal) | CPT/HCPCS: 93010 ==

== ENCOUNTER 2024-07-28 14:33 | Outpatient (AMB) | payer OTHER, SELFPAY ==
--- NOTE | 2024-07-28 14:49 | MHC.AM.SUB ---
Intake Visit Reasons: MAT Office Allergies No Known Allergies [NO KNOWN ALLERGIES] Allergy (Unknown, Verified 07/27/24 16:32) UNKNOWN HPI HPI MAT Office: Details: Patient presents for continuation of AUD treatment --last seen by t/w January 2024 Walked up from ED --presented overnight due to alcohol intoxication Hospitalized 2 weeks ago for alcohol withdrawal Reports yesterday was the first time he drank since his discharge He reports he has been taking Acamprosate and Naltrexone Would like to receive Vivitrol injection today Lengthy discussion related to patients desire to be able to drink normally Discussed recovery supports, motivation for engagement, etc. Patient in contemplative stage regarding this Review of Systems Const Reports as per HPI and Reports difficulty sleeping Psych Reports anxiety Physical Exam Const General: cooperative and tired appearing Nutritional Appearance: average body habitus Orientation/consciousness: patient oriented x3 Limitations: no limitations Neuro General: patient oriented x3 Psych Speech and movement: Clear speech present Affect: normal affect Attitude: cooperative Thought process: Circumstantial thought process present Thought content: Normal thought content present Insight: Limited insight present (Psych) Judgement: Fair judgement present (Psych) Office Meds Vivitrol 380 mg intramuscular suspension,extended release Performing Provider: Nina Gomez CNP Performing Location: [facility] Administered by: Nancy Umana RN on 07/28/24 15:15 Dose Route Admin Location Dispensed Lot Number Expiration Date [facility] [employer] 380 mg IM RG 380 mg [id number] 07/01/26 40520-419-34 [employer] [facility] Medical History Deep vein thrombosis, upper right extremity Alcohol use disorder, severe, dependence Alcohol abuse Elevated LFTs Recurrent major depression-severe Alcohol withdrawal syndrome Hypertension Anxiety and depression Psychiatric disturbance Family History Other Lung cancer Social History Household Members: None Housing: House Do you presently have visiting nurse or other home services: No Alcohol intake: current Alcohol intake frequency: 3 or more drinks per day Alcohol type: beer, wine and hard liquor Comment: patient refusing alarms Patient Tobacco Use Status: Never used Tobacco e-Cigarette/Vaping Use: Never Used Second Hand Smoke Exposure: No Substance Use Type: Marijuana Advance Directives Date on File: 01/08/21 service: No Current occupational status: unemployed Sexual orientation: Straight/Heterosexual Social History: Living alone currently. No children. Substance History: Alcohol, daily for ~90+days. 2019-Section [facility]-Jul 2019 after receiving [facility] Comprehensive Care-October 2019 to present Trauma History: Affirms Assessment & Plan Assessment & Plan (1) Alcohol use disorder, severe, dependence: Code(s): F10.20 - Alcohol dependence, uncomplicated Category: Medical Plan: to receive injection today continue with campral follow up 4 weeks or earlier if needed Orders: Orders AMB Naltrexone Injection Patient Supplied (NC) Today F10.10 - Alcohol abuse, uncomplicated
--- OUTSIDE RECORDS SUMMARY | 2024-07-28 17:49 | XMS_ITS | Clinical Summary ---
Author Organization [employer] Address [address] [place] [address] Care Team Providers Care Pet Handler Name Role Phone Rory Pham MD Primary [...] patient's age to complete this topic Insurance [facility] Care Teams Pet Handler Relationship Specialty Start Date End Date Rory Pham MD [address] [place] [id number] PCP - General Internal Medicine 12/29/23
== END 2024-07-28 15:36 | disposition home or self-care (01) ==
PROVIDERS: PCP Internal Medicine; Visit Provider Nurse Practitioner Psychiatric/Mental Health
DX: F10.10 Alcohol abuse, uncomplicated (principal); F10.20 Alcohol dependence, uncomplicated
CPT/HCPCS: 99214

== ENCOUNTER → 2024-07-28 14:33 | Outpatient (BNVA) | payer OTHER, SELFPAY | PROVIDERS: PCP Internal Medicine; Visit Provider Nurse Practitioner Psychiatric/Mental Health | DX: F10.20 Alcohol dependence, uncomplicated (principal) | CPT/HCPCS: 96372; 99212; J2315 ==

== ENCOUNTER 2024-08-02 03:21 | Emergency (ER) | payer OTHER, SELFPAY ==
[2024-08-02 04:12] VITALS: BP 132/92; BP 154/99; PULSE 101; PULSE 103; RESP 18; O2SAT 94; BMI 24.3
--- NOTE | 2024-08-02 04:39 | ED_ITS ---
HPI - Alcohol General Chief Complaint: ETOH/Substance Use Stated Complaint: ETOH Time Seen by Provider: 08/02/24 04:37 Source: EMS Mode of arrival: EMS Limitations: no limitations History of Present Illness ED Provider: Dr. Jessie Adams HPI narrative: Patient comes to the emergency room complaining of alcohol intoxication. For the last 4 days, patient has been drinking a case of alcohol, each case having 30 bottles. Patient denies chest pain shortness of breath abdominal pain nausea or vomiting or diarrhea. However, patient states that he is starting to feel tremulous. Last drink was approximately 6 hours ago. Patient denies SI or HI, states that he is not ready for detox. Related Data Home Medications ?Medication ?Instructions ?Recorded ?Confirmed omeprazole 20 mg capsule,delayed 20 mg PO DAILY@0630 07/28/24 07/28/24 release Previous Rx's ?Medication ?Instructions ?Recorded trazodone 50 mg tablet 50 mg PO BEDTIME #30 tabs 12/22/23 fluoxetine 40 mg capsule 40 mg PO DAILY #90 caps 02/28/24 naltrexone 50 mg tablet 50 mg PO DAILY #7 tabs 07/22/24 thiamine mononitrate (vit B1) 100 100 mg PO DAILY #90 tabs 07/22/24 mg tablet Allergies Allergy/AdvReac Type Severity Reaction Status Date / Time No Known Allergies Allergy Unknown UNKNOWN Verified 08/02/24 05:54 [NO KNOWN ALLERGIES] Review of Systems 2 Review of Systems: Constitutional : No Weight loss, No Fever, No Chills, No Night Sweats, No Fatigue, No Malaise ENT/Mouth : No Hearing loss, No Ear Pain, No Nasal Congestion, No Sinus Pain, No Hoarseness, No sore throat, No Rhinorrhea, No Swallowing Difficulty Eyes: No Eye Pain, No Swelling, No Redness, No Foreign Body, No Discharge, No Vision Changes Cardiovascular : No Chest Pain, No SOB, No Dyspnea on Exertion, No Orthopnea, No Edema, No Palpitations Respiratory : No Cough, No Sputum, No Wheezing, No Smoke Exposure, No Dyspnea Gastrointestinal : No Nausea, No Vomiting, No Diarrhea, No Constipation, No abdominal Pain, No Hematochezia, No Melena Genitourinary : no irregular bleeding, No Dysuria, No Urinary Frequency, No Hematuria, No Urinary Incontinence, No Urgency, No Flank Pain, No Urinary Flow Changes, No Hesitancy Musculoskeletal : No joint pain, No Myalgias, No Joint Swelling Skin : No Skin Lesions, No rash Neuro : No Weakness, No Numbness, No Paresthesias, No Loss of Consciousness, No Dizziness, No Headache Psych : No Anxiety/Panic, No Depression, No SI/HI/AH/VH, admits to alcohol abuse and dependence Heme/Lymph: No Bruising, No Bleeding,No Lymphadenopathy Endocrine : No Polyuria, No Polydipsia, No Temperature Intolerance [facility] Past Medical History Medical History Alcohol abuse Deep vein thrombosis, upper right extremity Alcohol use disorder, severe, dependence Alcohol abuse Elevated LFTs Recurrent major depression-severe Alcohol withdrawal syndrome Hypertension Anxiety and depression Psychiatric disturbance Family History Family History Other Lung cancer Social History Social History Household Members: None Housing: House Do you presently have visiting nurse or other home services: No Alcohol intake: current Alcohol intake frequency: 3 or more drinks per day Alcohol type: beer, wine and hard liquor Comment: patient refusing alarms Patient Tobacco Use Status: Never used Tobacco e-Cigarette/Vaping Use: Never Used Second Hand Smoke Exposure: No Substance Use Type: Marijuana Advance Directives: Yes Advance Directives on File: Yes Advance Directives Date on File: 01/08/21 Do you have a plan to hurt others: No Plan service: No Current occupational status: unemployed Sexual orientation: Straight/Heterosexual Physical Exam ED Vital Signs: Vital Signs - 24 hr 08/02/24 04:12 08/02/24 06:14 Temperature 97.8 F Pulse Rate 101 H 100 Respiratory Rate 18 16 Blood Pressure 132/92 H 165/86 H Pulse Oximetry 94 96 Oxygen Delivery Method Room Air Room Air BMI result Body Mass Index 24.3 Const Other: Appearance: Alert. Oriented X3. No acute distress. Able to have a coherent conversation Eyes: Pupils equal, round and reactive to light. ENT: Pharynx normal. Neck: Normal inspection. Neck supple. No lymph nodes noted. No crepitus CVS: Normal heart rate and rhythm. Pulses normal. Normal S1 and S2 Respiratory: No respiratory distress. Breath sounds normal. No Wheezing. No rales Abdomen: Soft and nontender. No rigidity. No distention. Skin: Skin warm and dry. Normal skin color. Normal skin turgor. Extremities: No lower extremity edema. No Lacerations. No Rash Neuro: Oriented X 3. No motor deficit. No sensory deficit. Moving all extremities. No slurred speech. CN 2 through 12 grossly intact Psych: calm, cooperative, normal affect Course Course Course Narrative: All of patient's labs pending On arrival, patient's vitals stable, no signs of active alcohol withdrawal Patient was given 2 mg of Ativan, patient anxious. Also patient known to go and alcohol withdrawals, no seizures seizures. At this time, patient is intoxicated, still able to have a fairly coherent conversation. Patient states that he is scared that he will start withdrawing within the next few hours. Patient states that he is not ready yet to commit to detox Medical Decision Making Medical Decision Making MDM Narrative: All of patient's labs pending It is likely that eventually patient will need admission. At this time, patient is not actively withdrawing. However, patient is known to our service, patient does go into withdrawal At this time, 07:15, patient is sleeping comfortably, blood pressure 165/86, heart rate in the 100s. Oxygen saturation 96% on room air Once patient is a bit more sober, we will reassess for detox Sign out given to my colleague Dr. Dan Differential Diagnosis Differential Diagnoses: The differential diagnosis associated with the presentation includes Admission/Observation Consideration of admission/observation: Escalation of care including admission/observation considered Lab Data [facility] Lab Attestation statement: I reviewed the patient's lab results. 08/02/24 06:07 08/02/24 06:07 Labs: Lab Results 08/02/24 Range/Units 06:07 WBC 5.6 (4.8-10.8) X10*3/uL RBC 4.89 (4.60-5.80) X10*6/uL Hgb 14.4 (14.0-18.0) g/dl Hct 40.7 L (42.0-52.0) % MCV 83.2 (80.0-98.0) fL MCH 29.4 (27.0-33.0) pg MCHC 35.4 (31.0-36.0) g/dl RDW 13.7 (11.0-16.0) % Plt Count 219 (160-400) X10*3/uL MPV 8.9 L (9.4-12.4) fL Immature Gran % (Auto) 0.2 (0.0-0.4) % Neut % (Auto) 63.9 (45-73) % Lymph % (Auto) 24.3 (20-40) % [place] % (Auto) 10.0 (2-11) % Eos % (Auto) 0.7 (0-4) % Baso % (Auto) 0.9 (0-2) % Lymph # (Auto) 1.4 (1.2-4.9) X10*3/uL [place] # (Auto) 0.6 (0.1-1.2) X10*3/uL Eos # (Auto) 0.0 (0.0-0.4) X10*3/uL Baso # (Auto) 0.1 (0.0-0.2) X10*3/uL Abs Immat Gran (auto) 0.01 (0.00-0.03) X10*3/uL Absolute Neuts (auto) 3.6 (2.0-8.3) x10*3/uL Absolute Nucleated RBC 0.000 (0.0-0.012) X10*3/uL Nucleated RBC % (auto) 0.0 (0.0-0.2) /100WBC Sodium 141 (135-145) mmol/L Potassium 3.8 (3.3-5.1) mmol/L Chloride 103 (96-108) mmol/L Carbon Dioxide 21 L (22-29) mmol/L Anion Gap 21 H (12-20) BUN 14 (9-16) mg/dL Creatinine 0.82 (0.5-1.4) mg/dL Estim Creat Clear Calc 118.1 Estimated GFR > 60 Random Glucose 87 (60-115) mg/dL Calcium 8.6 (8.4-10.2) mg/dL Total Bilirubin 0.2 (0.0-1.0) mg/dL Direct Bilirubin < 0.2 (0.0-0.5) mg/dL AST 72 H (5-37) U/L ALT 80 H (0-40) U/L Alkaline Phosphatase 53 (39-117) U/L Total Protein 8.1 H (6.5-8.0) g/dL Albumin 4.2 (3.5-5.0) g/dL Ethyl Alcohol 168 mg/dL Medications Administered Discontinued Medications Generic Name Dose Route Start Last Admin Trade Name Davey PRN Reason Stop Dose Admin Lorazepam 2 mg 08/02/24 04:38 08/02/24 04:49 Lorazepam 1 Mg Tablet PO 08/02/24 04:39 2 mg ONCE ONE Administration Critical Care Time Critical Care Time Critical Care Time: Yes Total Critical Care Time: 45 Attestation: I have personally provided critical care time. Time includes review of lab data, radiology results, discussion with consultants, and monitoring for potential decompensation. Intervention performed as documented. Discharge Plan Discharge Clinical Impression: Alcohol intoxication Patient Disposition: Still a Patient Prescriptions: No Action trazodone 50 mg tablet 50 mg PO BEDTIME Qty: 30 0RF thiamine mononitrate (vit B1) 100 mg Tablet 100 mg PO DAILY Qty: 90 0RF naltrexone 50 mg tablet 50 mg PO DAILY Qty: 7 0RF omeprazole 20 mg capsule,delayed release(DR/EC) 20 mg PO DAILY@0630 fluoxetine 40 mg capsule 40 mg PO DAILY Qty: 90 0RF Print Language: [place]
[2024-08-02] MEDS: LORazepam 1 MG TABLET 2 MG PO (04:49)
--- NOTE | 2024-08-02 04:50 | PC.NURSE ---
medicated per jul, notified ESTEVAN Parada.
[2024-08-02 06:14] VITALS: BP 165/86; PULSE 100; RESP 16; TEMP 36.6; O2SAT 96
[2024-08-02 06:15] LABS: MANUAL DIFF FLAG NO
[2024-08-02 06:29] LABS: Basophils Absolute Auto 0.1 X10*3/uL (0.0-0.2); Basophils Percent Auto 0.9 % (0-2); Eosinophils Percent Auto 0.7 % (0-4); Hematocrit 40.7 % (42.0-52.0); Hemoglobin 14.4 g/dl (14.0-18.0); Imm Gran Abs Auto 0.01 X10*3/uL (0.00-0.03); Imm Gran Pct Auto 0.2 % (0.0-0.4); Lymphocytes Absolute Auto 1.4 X10*3/uL (1.2-4.9); Lymphocytes Percent Auto 24.3 % (20-40); Mean Corpuscular HGB Conc 35.4 g/dl (31.0-36.0); Mean Corpuscular Hemoglobin 29.4 pg (27.0-33.0); Mean Corpuscular Volume 83.2 fL (80.0-98.0); Mean Platelet Volume 8.9 fL (9.4-12.4); Monocytes Absolute Auto 0.6 X10*3/uL (0.1-1.2); Neutrophils Absolute Auto 3.6 x10*3/uL (2.0-8.3); Neutrophils Percent Auto 63.9 % (45-73); Platelet Count 219 X10*3/uL (160-400); Red Blood Count 4.89 X10*6/uL (4.60-5.80); Red Cell Distribution Width 13.7 % (11.0-16.0); White Blood Count 5.6 X10*3/uL (4.8-10.8)
[2024-08-02 06:45] LABS: Alanine Aminotransferase 80 U/L (0-40); Albumin Level 4.2 g/dL (3.5-5.0); Alkaline Phosphatase 53 U/L (39-117); Anion Gap 21 (12-20); Aspartate Amino Transferase 72 U/L (5-37); Bilirubin Direct < 0.2 mg/dL (0.0-0.5); Bilirubin Total 0.2 mg/dL (0.0-1.0); Blood Urea Nitrogen 14 mg/dL (9-16); Calcium 8.6 mg/dL (8.4-10.2); Carbon Dioxide 21 mmol/L (22-29); Chloride 103 mmol/L (96-108); Creatinine Clr Calc Pharmacy 118.1; Estimated Glomerular Filt Rate > 60; Ethanol 168 mg/dL; Glucose Random 87 mg/dL (60-115); Potassium 3.8 mmol/L (3.3-5.1); Sodium 141 mmol/L (135-145); Total Protein 8.1 g/dL (6.5-8.0)
[2024-08-02 07:44] VITALS: BP 137/85; PULSE 106; RESP 16; O2SAT 96
[2024-08-02] MEDS: chlordiazePOXIDE HCl 25 MG CAPSULE 100 MG PO ×2 (07:53→11:23)
--- NOTE | 2024-08-02 10:03 | PC.NURSE ---
Pt more restful, eating snacks provided s/p Librium
--- NOTE | 2024-08-02 10:45 | PC.NURSE ---
Pt reports increasing withdrawal sx, Dr Dan to bedside to assess and additional Librium dose to be ordered. Ambulatory to bathroom to give urine spec
[2024-08-02 11:06] LABS: Amphetamine Screen Urine Not Detected (Not Detect); Barbiturates, Urine POSITIVE (Not Detect); Benzodiazepines Screen Urine POSITIVE (Not Detect); Buprenorphine Scr Not Detected (Not Detect); Cannabinoid Screen Urine Not Detected (Not Detect); Cocaine Screen Urine Not Detected (Not Detect); Fentanyl, urine Not Detected (Not Detect); Methadone Screen, Urine Not Detected (Not Detect); Opiate Screen Urine Not Detected (Not Detect); Oxycodone Screen Urine Not Detected (Not Detect); Phencyclidine Screen Urine Not Detected (Not Detect)
[2024-08-02 11:27] VITALS: BP 139/93; PULSE 106; RESP 18; TEMP 36.9; O2SAT 95
--- NOTE | 2024-08-02 15:10 | PC.NURSE ---
seen by recovery, pt declines detox and is medically cleared for d/c
[2024-08-02 15:11] VITALS: BP 165/89; PULSE 105; RESP 18; TEMP 36.9; O2SAT 96
--- NOTE | 2024-08-02 15:58 | MHC.RECOVRN ---
Received referral to meet with pt. re: AUD. Pt in bed resting. A&O and able to participate in conversation. After much discussion pt has decided to decline detox bed at this time and be D/C home. Pt encouraged to F/U in [facility] tomorrow for ongoing support.
== END 2024-08-02 15:12 | disposition home or self-care (01) ==
PROVIDERS: Emergency Medicine; Emergency Provider Emergency Medicine
DX: F10.129 Alcohol abuse with intoxication, unspecified (principal); Y90.6 Blood alcohol level of 120-199 mg/100 ml; Z71.41 Alcohol abuse counseling and surveillance of alcoholic; Z51.81 Encounter for therapeutic drug level monitoring; Z79.899 Other long term (current) drug therapy
CPT/HCPCS: 36415; 80048; 80076; 80307; 85025; 99284

== ENCOUNTER 2024-08-09 08:23 | Inpatient (IN) | payer OTHER, SELFPAY ==
[2024-08-09] VITALS (13 sets, daily range): BP systolic 112–153; BP diastolic 75–107; PULSE 98–127; RESP 12–18; TEMP 36.3–36.9; O2SAT 90–99; BMI 28.1
--- NOTE | 2024-08-09 | ECG_ITS ---
Test Reason : tachycardic Blood Pressure : */* mmHG Vent. Rate : 102 BPM Atrial Rate : 102 BPM P-R Int : 164 ms QRS Dur : 82 ms QT Int : 330 ms P-R-T Axes : 28 8 17 degrees QTcB Int : 430 ms Sinus tachycardia Cannot rule out Anterior infarct , age undetermined Abnormal ECG When compared with ECG of 27-Jul-2024 17:22, No significant change was found Referred By: Generic ED Physician Electronically Signed By: WILBERTO SMILEY
--- NOTE | ~2024-08-09 | CT_ITS ---
EXAMINATION: CT CERVICAL SPINE WITHOUT IV CONTRAST HISTORY: fall head injury. TECHNIQUE: Helical CT of the cervical spine was performed per standard departmental protocol. Coronal and sagittal reformatted images were also evaluated. One or more of the following techniques was used for dose reduction: Automated exposure control, adjustment of the mA and/or kV according to patient size, use of iterative reconstruction technique. DLP: 414.3 mGy-cm COMPARISON: Comparison is made with the prior examination dated 08/09/2023. FINDINGS: CERVICAL SPINE: The vertebral bodies maintain normal height and alignment without evidence of fracture or subluxation. The intervertebral disc spaces are preserved. Evaluation for disc pathology is limited by lack of intrathecal contrast material. BRAIN: The visualized portion of the brain is unremarkable. SINUSES: The visualized paranasal sinuses, mastoid air cells and middle ear cavities are unremarkable. LUNG APICES: The visualized lung apices are clear. SOFT TISSUES: The visualized paraspinal soft tissues are unremarkable. CT/CT cervical spine wo IV con IMPRESSION: No evidence of fracture or malalignment of the cervical spine. Electronically signed by: Greg Brewer MD 08/09/2024 10:25 AM EDT
--- NOTE | ~2024-08-09 | CT_ITS ---
EXAMINATION: CT HEAD WITHOUT IV CONTRAST HISTORY: fall head injury. TECHNIQUE: Unenhanced helical CT of the head was performed per standard departmental protocol. Coronal and sagittal reformats of the head were also evaluated. One or more of the following techniques was used for dose reduction: Automated exposure control, adjustment of the mA and/or kV according to patient size, use of iterative reconstruction technique. DLP: 853.9 mGy-cm COMPARISON: Comparison is made with the prior examination dated 09/02/2023. FINDINGS: BRAIN: The brain parenchyma is unremarkable. There is normal polo/white differentiation. The ventricular system is normal in size and configuration. There is no mass effect or midline shift. No intra- or extra-axial fluid collections are identified. SINUSES: The visualized paranasal sinuses are clear. The mastoid air cells and middle ear cavities are well pneumatized. ORBITS: The visualized orbits are unremarkable. BONES/SOFT TISSUES: The extracranial soft tissues are unremarkable. The calvarium is intact. No suspicious lytic or sclerotic lesions. CT/CT head/brain wo IV con IMPRESSION: No acute intracranial abnormality. Electronically signed by: Greg Brewer MD 08/09/2024 10:21 AM EDT
--- NOTE | ~2024-08-09 | CT_ITS ---
EXAMINATION: CT FACIAL BONES WITHOUT CONTRAST CLINICAL INFORMATION: Fall with bruising to face and eyes. COMPARISON: 08/09/2023. TECHNIQUE: Spiral CT imaging of the maxillofacial bones performed in axial plane without contrast. Multiplanar reformatted images were constructed from the axial data set. This CT examination was performed using dose optimization techniques as appropriate, variously including the following: *Automated exposure control *Adjustment of mA and/or kV according to patient size (this includes techniques or standardized protocols for targeted exams where dose is matched to indication/reason for exam; i.e. extremities or head) *Use of iterative reconstruction technique FINDINGS: Acute comminuted and mildly displaced bilateral nasal bone fractures present. Nondisplaced fracture of the anterior bony nasal septum. Maxillary spines remain intact. Nasal process remains intact. Orbits are intact without fracture. Mandible is intact. TM joints are normally oriented. Zygomatic arches are intact. Pterygoid plates are intact. Sphenoid bone is intact. Globes and orbital contents appear normal. There is soft tissue swelling about the nasion and glabella, extending to overlie the left frontal scalp. No significant paranasal sinus opacification. Mild mucosal thickening in the frontal recesses and anterior ethmoid air cells. Imaged mastoids and tympanic cavities are aerated. Calvarium appears intact. CT/CT facial bones wo IV con IMPRESSION: 1. Bilateral comminuted and displaced nasal bone fractures. Nondisplaced fracture of the anterior bony nasal septum. 2. Maxillary spines, orbits, nasal process, and mandible appear intact. No additional fractures evident. 3. Soft tissue swelling about the nasion, glabella, extending to overlie the left frontal scalp. Electronically signed by: Kar Coughlin MD 08/09/2024 10:33 AM EDT
[2024-08-09 08:52] LABS: MANUAL DIFF FLAG NO
[2024-08-09 08:52] LABS: MANUAL DIFF FLAG NO
[2024-08-09 08:53] LABS: Basophils Percent Auto 1.1 % (0-2); Eosinophils Absolute Auto 0.1 X10*3/uL (0.0-0.4); Eosinophils Percent Auto 1.4 % (0-4); Hematocrit 47.1 % (42.0-52.0); Hemoglobin 16.6 g/dl (14.0-18.0); Imm Gran Abs Auto 0.01 X10*3/uL (0.00-0.03); Imm Gran Pct Auto 0.3 % (0.0-0.4); Lymphocytes Absolute Auto 1.9 X10*3/uL (1.2-4.9); Lymphocytes Percent Auto 53.5 % (20-40); Mean Corpuscular HGB Conc 35.2 g/dl (31.0-36.0); Mean Corpuscular Hemoglobin 29.1 pg (27.0-33.0); Mean Corpuscular Volume 82.6 fL (80.0-98.0); Monocytes Absolute Auto 0.4 X10*3/uL (0.1-1.2); Monocytes Percent Auto 11.3 % (2-11); Neutrophils Absolute Auto 1.2 x10*3/uL (2.0-8.3); Neutrophils Percent Auto 32.4 % (45-73); Platelet Count 170 X10*3/uL (160-400); Red Cell Distribution Width 14.6 % (11.0-16.0); White Blood Count 3.6 X10*3/uL (4.8-10.8)
[2024-08-09 08:55] LABS: Basophils Percent Auto 1.1 % (0-2); Eosinophils Absolute Auto 0.1 X10*3/uL (0.0-0.4); Eosinophils Percent Auto 1.3 % (0-4); Hematocrit 47.1 % (42.0-52.0); Hemoglobin 16.5 g/dl (14.0-18.0); Lymphocytes Percent Auto 52.3 % (20-40); Mean Corpuscular Volume 82.8 fL (80.0-98.0); Mean Platelet Volume 9.6 fL (9.4-12.4); Monocytes Absolute Auto 0.5 X10*3/uL (0.1-1.2); Monocytes Percent Auto 12.6 % (2-11); Neutrophils Absolute Auto 1.2 x10*3/uL (2.0-8.3); Neutrophils Percent Auto 32.7 % (45-73); Platelet Count 177 X10*3/uL (160-400); Red Blood Count 5.69 X10*6/uL (4.60-5.80); Red Cell Distribution Width 14.6 % (11.0-16.0); White Blood Count 3.7 X10*3/uL (4.8-10.8)
--- NOTE | 2024-08-09 08:55 | PC.NURSE ---
biba from home s/p dad called PD d/t ETOH. pt placed on section 12 via PD. uncooperative via EMS. pt presents unwitnessed fall on ice yesterday. obvious headstrike +bruising to eyes bilaterally. ?loc. -thinners. pt reports dizziness/change in vision. boxes of wine found all over house w/ broken railing on staircase. pt reporting SI - states when i get out of here, i'm going to drink myself to . denies drug use/HI/AV/VH/withdrawal seizures. upon ED arrival - pt calm/cooperative. a&ox4. slur in speech noted. pt seemingly intoxicated. tachycardic/hypertensive. sinus tachycardic on the monitor - pt denies chest pain/palpitations. pt placed on RA d/t desatting to 90% on RA. no sob/wob noted. pt positioned upright to promote patent airway. 18gIV placed in the right wrist - labs obtained/sent to lab. 1:1 assist OOB to utilize urinal d/t unsteady gait. specimen obtained/sent to lab. ekg performed by tech. pt changed over by security - belongings placed in [employer] shelf #2. 1:1 sitter present. plan of care ongoing.
[2024-08-09 08:56] LABS: Appearance Urine Clear; Color Urine Yellow; Glucose Urine UA Negative (Negative); Leukocyte Esterase Urine Negative (Negative); Nitrite Urine Negative (Negative); PH 5.5 (5.0-9.0); UMIC TRIGGER UACC YES; Urine Blood Trace (Negative); Urine Ketones Negative (Negative); Urine Protein 100 (2+) mg/dL (Neg-Trace)
[2024-08-09 08:58] LABS: Bacteria Urine None Seen (None Seen); RBC Urine 0-2 /HPF (0-2); Squamous Epithelial Cell Urine 0-2 /HPF (0-2); WBC Urine 0-5 /HPF (0-5)
[2024-08-09 09:11] LABS: Amphetamine Screen Urine Not Detected (Not Detect); Barbiturates, Urine POSITIVE (Not Detect); Benzodiazepines Screen Urine POSITIVE (Not Detect); Buprenorphine Scr Not Detected (Not Detect); Cannabinoid Screen Urine Not Detected (Not Detect); Cocaine Screen Urine Not Detected (Not Detect); Fentanyl, urine Not Detected (Not Detect); Methadone Screen, Urine Not Detected (Not Detect); Opiate Screen Urine Not Detected (Not Detect); Oxycodone Screen Urine Positive (Not Detect); Phencyclidine Screen Urine Not Detected (Not Detect)
[2024-08-09 09:23] LABS: Acetaminophen LAB < 3 mcg/mL (<30); Salicylate < 5.0 mg/dL (15-30)
--- OUTSIDE RECORDS SUMMARY | 2024-08-09 09:31 | XMS_ITS | Continuity of Care Document ---
Author Organization [facility] Address [address] [place] [address]- Support Name Relationship Address Phone AZUL COLÓN Personal Relationship Unknown Unava ilable DENNY, KENNETH mother Unknown Unavailable COLÓN, AZUL Personal Relationship Unknown Unava ilable COLÓN, AZUL Personal Relationship Unknown Unava ilable COLÓN, AZUL Personal Relationship Unknown Unava ilable COLÓN, AZUL Personal Relationship Unknown Unava ilable COLÓN, AZUL Personal Relationship Unknown Unava ilable COLÓN, AZUL Personal Relationship Unknown Unava ilable COLÓN, AZUL Personal Relationship Unknown Unava ilable COLÓN, AZUL Personal Relationship Unknown Unava ilable COLÓN, AZUL Personal Relationship Unknown Unava ilable COLÓN, AZUL Personal Relationship Unknown Unava ilable COLÓN, AZUL Personal Relationship Unknown Unava ilable COLÓN, AZUL Personal Relationship Unknown Unava ilable COLÓN, AZUL Personal Relationship Unknown Unava ilable COLÓN, AZUL Personal Relationship Unknown Unava ilable COLÓN, AZUL Personal Relationship Unknown Unava ilable COLÓN, AZUL Personal Relationship Unknown Unava ilable COLÓN, AZUL Personal Relationship Unknown Unava ilable COÓLN, AZUL Personal Relationship Unknown Unava ilable COLÓN, AZUL Personal Relationship Unknown Unava ilable COLÓN, AZUL Personal Relationship Unknown Unava ilable COLÓN, AZUL Personal Relationship Unknown Unava ilable COLÓN, AZUL Personal Relationship Unknown Unava ilable COLÓN, AZUL Personal Relationship Unknown Unava ilable COLÓN, AZUL Personal Relationship Unknown Unava ilable COLÓN, AZUL Personal Relationship Unknown Unava ilable COLÓN, DOMENICA father Unknown Unavailable COLÓN, AZUL Personal Relationship Unknown Unava ilable COLÓN, AZUL Personal Relationship Unknown Unava ilable COLÓN, DOMENICA Personal Relationship Unknown Unav ailable COLÓN, AZUL Personal Relationship Unknown Unava ilable COLÓN, AZUL Personal Relationship Unknown Unava ilable COLÓN, AZUL Personal Relationship Unknown Unava ilable COLÓN, AZUL Personal Relationship Unknown Unava ilable COLÓN, AZUL Personal Relationship Unknown Unava ilable COLÓN, AZUL Personal Relationship Unknown Unava ilable COLÓN, AZUL Personal Relationship Unknown Unava ilable COLÓN, AZUL Personal Relationship Unknown Unava ilable COLÓN, AZUL Personal Relationship Unknown Unava ilable Care Team Providers Care Roller Skates Assembler Name Role Phone Not on Staff, PCP Primary Care Physician Unavail able Encounter [facility] Date(s): 08/05/24 - 08/06/[address] [address]- Discharge Disposition: A-D/C Home Attending Physician: Jose Luis Mars DO Admitting Physician: Jose Luis Mars DO Referring Physician: Not on Staff, Referring MD Encounter Type: Disch ES Allergies, Adverse Reactions, Alerts No Known Allergies [...] Given 1Result Comment: [10/10/2013] #1 2Result Comment: [facility]# [address] [id number] 3Result Comment: [03/10/2017] [facility] [id number] 4Admin Note: historical data 5Result Comment: BOOSTER 6Result Comment: [facility]: [id number] Medications acamprosate 333 mg oral delayed release tablet 2 tablet = 666 mg, By Mouth, 3 times a day, # 180 tablet, 1 Refills, Maintenance, 02/06/23 10:35:00 AM EDT, CR Tablet, [facility], 173, cm, 02/06/23 4:34:00 EDT, Height, 80.9, kg, 02/02/23 18:22:00 EDT, Dry Weight Start Date: 02/06/23 Status: Ordered Quantity: 180.0 Unit: tablet Repeat number: 2 busPIRone 30 mg oral tablet 1 tablet = 30 mg, By Mouth, 2 times a day, # 180 tablet, 0 Refills, Maintenance, 12/06/21 4:19:00 AM EDT, Tablet, Partial fill upon patient request if the prescription is for a schedule II opioid drug. Start Date: 12/06/21 Status: Ordered Quantity: 180.0 Unit: tablet Repeat number: 1 chlordiazePOXIDE 25 mg oral capsule 1 capsule = 25 mg, By Mouth, 4 times a day, PRN for symptoms of alcohol withdrawal, for 5 days, # 10 capsule, 0 Refills, Acute 08/11/24 7:42:00 AM EDT, 08/06/24 7:42:00 AM EST, Capsule, [facility],Partial fill upon patient request if the prescription is for a schedule II opioid drug., 174, cm, 08/05/24 23:24:00 EST, Height, 75.4, kg, 08/05/24 23:24:00 EST, Dry Weight Start Date: 08/06/24 Stop Date: 08/11/24 Status: Ordered Quantity: 10.0 Unit: capsule Repeat number: 1 cloNIDine 0.1 mg oral tablet 0.1 mg, By Mouth, 2 times a day, # 3 tablet, Refills 0, Tot. Refills 0, Maintenance, 06/24/23 9:06:00 AM EST, Route to Pharmacy Electronically, [facility], Partial fill upon patient request if the prescription is for a schedule II opioid drug., 174, cm, 06/24/23 8:02:00 EST, Height, 75.4, kg, 13:22:00 EST, Dry Weight Start Date: 06/24/23 Stop Date: 06/26/23 Status: Ordered Quantity: 3.0 Unit: tablet Repeat number: 1 disulfiram 500 mg oral tablet 1 tablet = 500 mg, By Mouth, Daily, do not drink alcohol, # 7 tablet, 0 Refills, Maintenance, 08/06/24 7:42:00 AM EST, Tablet, [facility], Partial fill upon patient request if the prescription is for a schedule II opioid drug., 174, cm, 08/05/24 23:24:00 EST, Height, 75.4, kg, 08/05/24 23:24:00 EST, Dry Weight Start Date: 08/06/24 Stop Date: 08/13/24 Status: Ordered Quantity: 7.0 Unit: tablet Repeat number: 1 Eliquis 5 mg oral tablet 1 tablet = 5 mg, By Mouth, 2 times a day, 0 Refills, Maintenance, 06/21/23 1:15:00 PM EST, Partial fill upon patient request if the prescription is for a schedule II opioid drug. Start Date: 06/21/23 Status: Ordered Repeat number: 1 FLUoxetine 20 mg oral capsule 40 mg, 2, capsule, By Mouth, Daily, # 60 capsule, Refills 0, Tot. Refills 0, Maintenance, 09/17/21 9:36:00 AM EDT, Route to Pharmacy Electronically, [facility], Partial fill upon patient request if the prescription is for a schedule II opioid drug., 172, cm, 09/17/21 8:49:00 EDT, Height, 75, kg, 09/12/21 17:05:00 EDT, Dry Weight Start Date: 09/17/21 Status: Ordered Quantity: 60.0 Unit: capsule Repeat number: 1 folic acid 1 mg oral tablet 1 mg, By Mouth, Daily, # 30 tablet, Refills 0, Tot. Refills 0, Maintenance, 11/29/22 11:01:00 AM EDT,Route to Pharmacy Electronically, [facility], Partial fill upon patient request if the prescription is for a schedule II opioid drug., 172, cm, 11/29/22 8:05:00 EDT, Height, 88, kg, 11/27/22 18:42:00 EDT, Dry Weight Start Date: 11/29/22 Status: Ordered Quantity: 30.0 Unit: tablet Repeat number: 1 multivitamin Multiple Vitamins oral capsule 1 capsule, By Mouth, Daily, # 30 capsule, 0 Refills, Maintenance, 11/29/22 11:01:00 AM EDT, Capsule, [facility], Partial fill upon patient request if the prescription is for a schedule II opioid drug., 1 capsule By Mouth Daily, 172, cm, 11/29/22 8:05:00 EDT, Height, 88, kg, 11/27/22 18:42:00 EDT, Dry Weight Start Date: 11/29/22 Status: Ordered Quantity: 30.0 Unit: capsule Repeat number: 1 ondansetron 4 mg oral tablet, disintegrating 1 tablet = 4 mg, By Mouth, Every 8 hours, PRN as needed for nausea/vomiting, # 12 tablet, 0 Refills, Maintenance, 08/09/23 9:49:00 AM EDT, DIS Tablet, [facility]/pharmacy #[id number], Partial fill upon patient request if the prescription is for a schedule II opioid drug., 174, cm, 08/09/23 6:02:00 EDT, Height, 75.4, kg, 08/08/23 20:48:00 EST, Dry Weight Start Date: 08/09/23 Status: Ordered Quantity: 12.0 Unit: tablet Repeat number: 1 Protonix 20 mg oral delayed release tablet 1 tablet = 20 mg, By Mouth, Daily, # 30 tablet, 0 Refills, Maintenance, 11/29/22 11:02:00 AM EDT, CR Tablet, 172, cm, 11/29/22 8:05:00 EDT, Height, 88, kg, 11/27/22 18:42:00 EDT, Dry Weight Start Date: 11/29/22 Status: Ordered Quantity: 30.0 Unit: tablet Repeat number: 1 traZODone 50 mg oral tablet 50 mg, 1, tablet, By Mouth, Daily at bedtime, # 5 tablet, Refills 0, Tot. Refills 0, Maintenance, 06/24/23 9:06:00 AM EST, Route to Pharmacy Electronically, [facility], Partial fill upon patient request if the prescription is for a schedule II opioid drug., 174, cm, 06/24/23 8:02:00 EST, Height, 75.4, kg, 06/21/23 13:22:00 EST, Dry Weight Start Date: 06/24/23 Stop Date: 06/29/23 Status: Ordered Quantity: 5.0 Unit: tablet Repeat number: 1 Vivitrol 380 mg intramuscular injection, extended release INJECT INTO THE MUSCLE EVERY 4 WEEKS Start Date: 05/25/23 Status: Ordered Repeat number: 1 Problem List Condition Confirmation Course Effective Dates [...] Range]: 1 2 3 Height 174 cm (08/05/24 11:24 PM) 174 cm (08/05/24 9:14 PM) 174 cm (08/05/24 4:17 PM) Weight 75.4 kg (08/05/24 11:24 PM) 75.4 kg (08/05/24 9:14 PM) 75.4 kg (08/05/24 4:17 PM) Oxygen Saturation [94-100 %] 98 % (08/06/24 7:55 AM) 95 % (08/05/24 11:24 PM) 96 % (08/05/24 9:14 PM) Pulse Rate [55-90 bpm] 105 bpm *H* (08/06/24 7:55 AM) 108 bpm *H* (08/05/24 9:14 PM) 101 bpm *H* (08/05/24 4:17 PM) Body Mass Index [18.5-24.99 kg/m2] 24.9 kg/m2 (08/05/24 11:24 PM) 24.9 kg/m2 (08/05/24 9:14 PM) Blood Pressure [90-138/55-84 mm Hg] 159/99mm Hg *H* (08/06/24 7:55 AM) 128/76mm Hg (08/05/24 9:14 PM) 129/87mm Hg (08/05/24 4:17 PM) Respiratory Rate [16-30 br/min] 18 br/min (08/06/24 7:55 AM) 16 br/min (08/05/24 9:14 PM) 14 br/min *L* (08/05/24 4:17 PM) Temperature [96.8-100.4 DegF] 97.5 DegF (08/05/24 4:17 PM) Liters per Minute 2 L/min (08/05/24 9:14 PM) 3 L/min (08/05/24 4:17 PM) Mode of Delivery (Oxygen) Room air (08/06/24 7:55 AM) Room air (08/05/24 11:24 PM) Nasal cannula (08/05/24 9:14 PM) Blood pressure sites Arm, right (08/06/24 7:55 AM) Arm, right (08/05/24 9:14 PM) Arm, right (08/05/24 4:17 PM) Temperature Route Axillary (08/05/24 4:17 PM) Dry Weight 75.4 kg (08/05/24 11:24 PM) 75.4 kg (08/05/24 9:14 PM) 75.4 kg (08/05/24 4:17 PM) Weight Obtained Via Patient/family state d (08/05/24 4:17 PM) Social History Social History Type Response Smoking Status Never smoker entered on: 10/10/13 Sex Sex Representation Male (finding) Patient Care team information Care Team Personnel Name: Roseann Humphrey RN Position: [facility] RN Member Role: Primary Care Nurse Name: Samy Coleman RN Position: S RN Member Role: Primary Care Nurse Name: Anjelica Dukes RN Position: S RN Member Role: Primary Care Nurse Name: Alix Vargas RN Position: S RN Member Role: Primary Care Nurse Name: Not on Staff, PCP Position: [facility] Physician (General Medicine) Member Role: PCP Name: Mirela Fritz RN Position: S RN Member Role: Primary Care Nurse Name: Rubina Brink RN Position: [facility] RN Member Role: Primary Care Nurse Care Team Related Persons Name: DOMENICA COLÓN Name: KENNETH BALDWIN Insurance Providers Guarantor name: JULIOCESAR COLÓN [facility]ly [facility] Information #: 1 Payer: [facility] Member Number: [id number] Policy Number: NA Group Number: [id number] Health Plan Information #: 2 Payer: [facility] Member Number: [id number] Policy Number: NA Group Number: [id number]
--- OUTSIDE RECORDS SUMMARY | 2024-08-09 09:31 | XMS_ITS | Clinical Summary ---
Author Organization [employer] Address [address] [place] [address] Care Team Providers Care Rail Splitter Name Role Phone Rory Pham MD Primary [...] patient's age to complete this topic Insurance [facility] Address: [address] [place] [address] Care Teams Rail Splitter Relationship Specialty Start Date End Date Rory Pham MD [address] [place] [id number] PCP - General Internal Medicine 12/29/23
--- NOTE | 2024-08-09 09:38 | ED.TRAUMA ---
HPI - Trauma General Chief Complaint: ETOH/Substance Use Stated Complaint: FACE INJURY S/P FALL,ETOH,[employer] FOR SAFETY,UNCOOP Time Seen by Provider: 08/09/24 09:15 Source: patient and EMS Mode of arrival: EMS Limitations: other History of Present Illness HPI narrative: 38-year-old male well known to the ER for alcohol abuse who typically refuses transfer for treatment presents emergency department again intoxicated but also concern for a fall and bruising to his face patient has required phenobarb and admission in the past he is asking for Ativan immediately upon arrival. Patient was in his eye tachycardic and hypertensive which resolved without any intervention. Per the father the patient found hit his head father was not at the bedside at this time. complaint: fall and injury Related Data Home Medications ?Medication ?Instructions ?Recorded ?Confirmed omeprazole 20 mg capsule,delayed 20 mg PO DAILY@0630 07/28/24 07/28/24 release Previous Rx's ?Medication ?Instructions ?Recorded trazodone 50 mg tablet 50 mg PO BEDTIME #30 tabs 12/22/23 fluoxetine 40 mg capsule 40 mg PO DAILY #90 caps 02/28/24 naltrexone 50 mg tablet 50 mg PO DAILY #7 tabs 07/22/24 thiamine mononitrate (vit B1) 100 100 mg PO DAILY #90 tabs 07/22/24 mg tablet Allergies Allergy/AdvReac Type Severity Reaction Status Date / Time No Known Allergies Allergy Unknown UNKNOWN Verified 08/09/24 08:30 [NO KNOWN ALLERGIES] Review of Systems Review of Systems: Review of systems: General: Patient denies any fever chills recent illness or falls Musculoskeletal: Denies back pain or body aches or other injuries HEENT: denies headache, runny nose, ear pain Respiratory: denies shortness of breath, cough Cardiovascular: no chest pain or palpitations : denies dysuria, frequency Abdomen: no nausea vomiting denies abdominal pain Extremities: no swelling, no pain Skin: no diaphoresis Yes all other systems are reviewed and are negative [facility] Past Medical History Medical History Alcohol abuse Deep vein thrombosis, upper right extremity Alcohol use disorder, severe, dependence Alcohol abuse Elevated LFTs Recurrent major depression-severe Alcohol withdrawal syndrome Hypertension Anxiety and depression Psychiatric disturbance Family History Family History Other Lung cancer Social History Social History Household Members: None Housing: House Do you presently have visiting nurse or other home services: No Alcohol intake: current Alcohol intake frequency: 3 or more drinks per day Alcohol type: beer, wine and hard liquor Comment: patient refusing alarms Patient Tobacco Use Status: Never used Tobacco Smoked in Last 30 Days: No e-Cigarette/Vaping Use: Never Used Second Hand Smoke Exposure: No Use of substances other than those prescribed or required for medical reasons: No Substance Use Type: Marijuana Advance Directives: Yes Advance Directives on File: Yes Advance Directives Date on File: 01/08/21 Do you have a plan to hurt others: No Plan service: No Current occupational status: unemployed Sexual orientation: Straight/Heterosexual Physical Exam Vital Signs: Vital Signs: Last Vital Signs Temp 98.5 F 08/09/24 08:47 Pulse 98 08/09/24 09:17 Resp 14 08/09/24 09:17 BP 131/81 08/09/24 09:17 Pulse Ox 97 08/09/24 09:17 O2 Del Method Room Air 08/09/24 09:17 O2 Flow Rate 2 08/09/24 08:51 BMI result Body Mass Index 28.1 Neurological exam: CN II- XII tested. Patient is alert and oriented to person place and time. Patient has no dysphagia or dysarthia, denies good vision in all four vision yousif no nystagmus on exam, good strength to upper and lower extremities with normal reflexes to brachioradialis, wrist, patella and achilles. Negative romberg, good finger to nose and heel to funez. General: Well-appearing well-nourished in no signs of distress HEENT: Bruising and abrasions noted to nose with abrasion noted to bilateral eyes Neck: No signs of JVD, no masses no tenderness or lymphadenopathy Cardiovascular: Regular rate and rhythm Respiratory: Clear to auscultation bilaterally Abdomen: Soft nontender no masses Extremities: Normal pedal pulses no signs of edema Skin: Multiple abrasions noted to arms and legs Dry warm no rashes Back: No tenderness full ROM Course Course Course Narrative: CT shows a closed nasal bone fracture that is comminuted do not see any need for emergent evaluation of this all the other bones appear to be intact labs show that he is grossly intoxicated the patient is currently on phenobarb I will continue to watch the patient here. Medications Administered Generic Name Dose Route Start Last Admin Trade Name Davey PRN Reason Stop Dose Admin Sodium Chloride 1,000 mls @ 999 mls/hr 08/09/24 09:45 08/09/24 10:17 Ns IV 08/09/24 10:45 999 mls/hr .Q1H1M VANESSA Administration Medical Decision Making Medical Decision Making [facility] Narrative: Labs were sent in triage I will send the patient for trauma the including CT head neck and facial bones I will start the patient on phenobarb and reassess. Differential Diagnosis Differential Diagnoses: The differential diagnosis associated with the presentation includes Intracranial hemorrhage nasal fractures facial fractures spinal fracture alcohol intoxication alcohol abuse alcohol withdrawal seizures Lab Data [facility] Lab Attestation statement: I reviewed the patient's lab results. 08/09/24 08:45 08/09/24 08:45 Labs: Lab Results 08/09/24 08/09/24 Range/Units 08:44 08:45 WBC 3.6 L 3.7 L (4.8-10.8) X10*3/uL RBC 5.70 5.69 (4.60-5.80) X10*6/uL Hgb 16.6 16.5 (14.0-18.0) g/dl Hct 47.1 47.1 (42.0-52.0) % MCV 82.6 82.8 (80.0-98.0) fL MCH 29.1 29.0 (27.0-33.0) pg MCHC 35.2 35.0 (31.0-36.0) g/dl RDW 14.6 14.6 (11.0-16.0) % Plt Count 170 177 (160-400) X10*3/uL MPV 9.0 L 9.6 (9.4-12.4) fL Immature Gran % (Auto) 0.3 0.0 (0.0-0.4) % Neut % (Auto) 32.4 L 32.7 L (45-73) % Lymph % (Auto) 53.5 H 52.3 H (20-40) % [place] % (Auto) 11.3 H 12.6 H (2-11) % Eos % (Auto) 1.4 1.3 (0-4) % Baso % (Auto) 1.1 1.1 (0-2) % Lymph # (Auto) 1.9 2.0 (1.2-4.9) X10*3/uL [place] # (Auto) 0.4 0.5 (0.1-1.2) X10*3/uL Eos # (Auto) 0.1 0.1 (0.0-0.4) X10*3/uL Baso # (Auto) 0.0 0.0 (0.0-0.2) X10*3/uL Abs Immat Gran (auto) 0.01 0.00 (0.00-0.03) X10*3/uL Absolute Neuts (auto) 1.2 L 1.2 L (2.0-8.3) x10*3/uL Absolute Nucleated RBC 0.000 0.000 (0.0-0.012) X10*3/uL Nucleated RBC % (auto) 0.0 0.0 (0.0-0.2) /100WBC Hold Blue Top SEE NOTE Sodium 144 (135-145) mmol/L Potassium 4.1 (3.3-5.1) mmol/L Chloride 100 (96-108) mmol/L Carbon Dioxide 24 (22-29) mmol/L Anion Gap 24 H (12-20) BUN 9 (9-16) mg/dL Creatinine 0.93 (0.5-1.4) mg/dL Estim Creat Clear Calc 113.6 Estimated GFR > 60 Random Glucose 82 (60-115) mg/dL Calcium 9.3 D (8.4-10.2) mg/dL Magnesium 2.4 (1.6-2.6) mg/dL Total Bilirubin 0.4 (0.0-1.0) mg/dL Direct Bilirubin 0.2 (0.0-0.5) mg/dL AST 110 H (5-37) U/L ALT 86 H (0-40) U/L Alkaline Phosphatase 63 (39-117) U/L Total Protein 8.7 H (6.5-8.0) g/dL Albumin 4.9 (3.5-5.0) g/dL Lipase 25 (8-78) U/L Urine Color Yellow Urine Appearance Clear Urine pH 5.5 (5.0-9.0) Ur Specific [place] 1.010 (1.005-1.025) Urine Protein 100 (2+) H (Neg-Trace) mg/dL Urine Glucose (UA) Negative (Negative) mg/dL Urine Ketones Negative (Negative) mg/dL Urine Blood Trace H (Negative) Urine Nitrite Negative (Negative) Ur Leukocyte Esterase Negative (Negative) Urine RBC 0-2 (0-2) /HPF Urine WBC 0-5 (0-5) /HPF Ur Squamous Epith Cells 0-2 (0-2) /HPF Urine Bacteria None Seen (None Seen) Hyaline Casts 3-5 (0-2) /LPF Salicylates < 5.0 L (15-30) mg/dL Urine Opiates Screen Not Detected (Not Detect) Ur Buprenorphine Scrn Not Detected (Not Detect) ng/mL Ur Oxycodone Screen Positive H (Not Detect) ng/mL Urine Methadone Screen Not Detected (Not Detect) ng/mL Urine Fentanyl Screen Not Detected (Not Detect) Acetaminophen < 3 (<30) mcg/mL Ur Barbiturates Screen POSITIVE H (Not Detect) Ur Phencyclidine Scrn Not Detected (Not Detect) Ur Amphetamines Screen Not Detected (Not Detect) U Benzodiazepines Scrn POSITIVE H (Not Detect) Urine Cocaine Screen Not Detected (Not Detect) U Marijuana (THC) Screen Not Detected (Not Detect) Ethyl Alcohol 342 H* mg/dL Independent Interpretation I performed an independent interpretation of an: CT Scan Radiology Impression Discussion of test interpretation with radiology: I have reviewed the radiologist's reading. Discharge Plan Discharge Clinical Impression: Alcohol use disorder, severe, dependence, Closed fracture nasal bone Prescriptions: No Action trazodone 50 mg tablet 50 mg PO BEDTIME Qty: 30 0RF thiamine mononitrate (vit B1) 100 mg Tablet 100 mg PO DAILY Qty: 90 0RF naltrexone 50 mg tablet 50 mg PO DAILY Qty: 7 0RF omeprazole 20 mg capsule,delayed release(DR/EC) 20 mg PO DAILY@0630 fluoxetine 40 mg capsule 40 mg PO DAILY Qty: 90 0RF Print Language: Moroccan
[2024-08-09 09:44] LABS: Alanine Aminotransferase 86 U/L (0-40); Albumin Level 4.9 g/dL (3.5-5.0); Alkaline Phosphatase 63 U/L (39-117); Anion Gap 24 (12-20); Aspartate Amino Transferase 110 U/L (5-37); Bilirubin Direct 0.2 mg/dL (0.0-0.5); Bilirubin Total 0.4 mg/dL (0.0-1.0); Blood Urea Nitrogen 9 mg/dL (9-16); Calcium 9.3 mg/dL (8.4-10.2); Carbon Dioxide 24 mmol/L (22-29); Chloride 100 mmol/L (96-108); Creatinine Clr Calc Pharmacy 113.6; Estimated Glomerular Filt Rate > 60; Ethanol 342 mg/dL; Glucose Random 82 mg/dL (60-115); Lipase 25 U/L (8-78); Magnesium 2.4 mg/dL (1.6-2.6); Potassium 4.1 mmol/L (3.3-5.1); Sodium 144 mmol/L (135-145); Total Protein 8.7 g/dL (6.5-8.0)
[2024-08-09] MEDS: 0.9 % Sodium Chloride 1,000 ML 999 ML IV ×2 (10:17→12:00)
--- NOTE | 2024-08-09 11:47 | PC.NURSE ---
Pt has been sleeping on and off since this RN took report at 9:45. Periorbital bruising noted. and on bridge of nose. denies ever having Sz with withdrawal. NAD. ST on monitor. no vomiting.
[2024-08-09] MEDS: PHENobarbitaL sodium 130 MG/ML VIAL 260 MG IVPUSH (11:51)
--- NOTE | 2024-08-09 11:58 | PC.NURSE ---
currently is alert and oriented x 3. denies SI at this time but states the withdrawal pain is hard
[2024-08-09] MEDS: PHENobarbitaL sodium 130 MG/ML VIAL IVPUSH ×4 (12:50→15:57)
--- NOTE | 2024-08-09 13:28 | PC.NURSE ---
Pt states I'm not my normal self...sounds and visuals but is unable to clarify what these sensations are. states I'm in a panicky state .
[2024-08-09] MEDS: PHENobarbitaL sodium 65 MG/ML VIAL 34 MG IVPUSH (16:20)
--- NOTE | 2024-08-09 21:42 | PC.NURSE ---
Pt is axox3. still c/o of bad withdrawal though no tremor is noted. HR increases when discussing treatment and sx with RN. Is aware that he will be admitted. previous IV dislodged (was not removed by patient). New one established. skin PWD ST on monitor.
[2024-08-09] MEDS: PHENobarbitaL sodium 130 MG/ML IM ONCE 273 MG IM (21:53)
[2024-08-09] MEDS: Diphth,Pertus(ACell),Tet Adult 0.5 ML SYRINGE IM (21:53)
--- NOTE | 2024-08-09 22:28 | P.HPHOSP_ITS ---
History of Present Illness Date of Service: 08/09/24 Chief Complaint: Fall 38-year-old male with a past medical history of alcohol use disorder, history of DVT, gastritis, anxiety, depression presented to the hospital today with a chief complaint of fall. Patient reported that he was walking on his driveway, tripped and fell, landed on his face; denies any headaches or blurry visions. Denies any neck pain or back pain. Denies any hip pain. Reports mild pain in his nose. Patient reports that lately he is feeling low. Recently lost a job. Unsure if he is going to get a new job. Has been drinking heavily for the past 4 days. Reports that in general he drinks 6-8 beers. Over the past 4 days he has been drinking box of wine. Denies nausea or vomiting. Reports decreased appetite. Denies any chest pain or palpitations. Reports being tremulous. Review of all other systems is negative except mentioned above ER course: Per ER team, patient had CT head done which showed nasal bone fracture; breathing comfortably no epistaxis; patient was also noted to be tremulous and tachycardic concerning for acute alcohol withdrawal. Liver enzymes slightly elevated. Patient was loaded with phenobarbital per ER patient. [facility] Medical History Alcohol abuse Deep vein thrombosis, upper right extremity Alcohol use disorder, severe, dependence Alcohol abuse Elevated LFTs Recurrent major depression-severe Alcohol withdrawal syndrome Hypertension Anxiety and depression Psychiatric disturbance Family History Other Lung cancer Social History Household Members: None Housing: House Do you presently have visiting nurse or other home services: No Alcohol intake: current Alcohol intake frequency: 3 or more drinks per day Alcohol type: beer, wine and hard liquor Comment: patient refusing alarms Patient Tobacco Use Status: Never used Tobacco Smoked in Last 30 Days: No e-Cigarette/Vaping Use: Never Used Second Hand Smoke Exposure: No Use of substances other than those prescribed or required for medical reasons: No Substance Use Type: Marijuana Advance Directives: Yes Advance Directives on File: Yes Advance Directives Date on File: 01/08/21 Do you have a plan to hurt others: No Plan service: No Current occupational status: unemployed Sexual orientation: Straight/Heterosexual Meds Allergies Allergy/AdvReac Type Severity Reaction Status Date / Time No Known Allergies Allergy Unknown UNKNOWN Verified 08/09/24 08:30 [NO KNOWN ALLERGIES] Active Medications: Current Medications Acetaminophen (Acetaminophen 325 Mg Tablet) 650 mg PO Q6H PRN PRN Reason: Pain, Mild 1-3,fever,headache Melatonin (Melatonin 3 Mg Tablet) 6 mg PO BEDTIME PRN PRN Reason: Insomnia Pharmacy Consult (Consult Rx Etoh Phenob Im/Po) 1 each MISCELLANE ONCE PRN; Protocol PRN Reason: Consult order Phenobarbital (Phenobarbital 15 Mg Tablet) 45 mg PO BID [facility] Stop: 08/11/24 21:01 Phenobarbital (Phenobarbital 30 Mg Tablet) 30 mg PO BID [facility] Stop: 08/13/24 21:01 Phenobarbital (Phenobarbital 15 Mg Tablet) 15 mg PO DAILY [facility] Stop: 08/15/24 09:01 Phenobarbital Sodium (Phenobarbital Sodium 130 Mg/Ml Vial Im Q3hx2) 205 mg IM Q3H [facility] Stop: 08/10/24 03:01 Sodium Chloride (0.9 % Sodium Chloride Flush 3 Ml Syringe) 3 ml IVFLUSH QSHIFT [facility] Home Medications ?Medication ?Instructions ?Recorded ?Confirmed ?Last Taken ?Type disulfiram 250 mg tablet 250 mg PO BID 08/09/24 Unknown History fluoxetine 40 mg capsule 40 mg PO DAILY 08/09/24 Unknown History omeprazole 20 mg capsule,delayed 20 mg PO DAILY@0630 08/09/24 Unknown History release thiamine HCl (vitamin B1) 100 mg 100 mg PO DAILY 08/09/24 Unknown History tablet (Vitamin B-1) trazodone 50 mg tablet 50 mg PO BEDTIME 08/09/24 Unknown History Physical Exam 2 Vital Signs and Narrative: Vital Signs: Last Vital Signs Temp 97.3 F 08/09/24 20:00 Pulse 113 H 08/09/24 20:00 Resp 18 08/09/24 20:00 BP 153/91 H 08/09/24 20:00 Pulse Ox 98 08/09/24 20:00 O2 Del Method Room Air 08/09/24 20:00 O2 Flow Rate 2 08/09/24 16:24 BMI result Body Mass Index 28.1 Gen: Appears be in no acute distress HEENT: NCAT, Moist mucosa. Pulmonary: Vesicular breath sounds, fair air entry CVS: Normal S1-S2 Abdomen: BS+, Soft, Nontender Extremities: Warm well perfused Neuro: Alert and awake. Results Labs 08/09/24 08:45 08/09/24 08:45 Labs: Laboratory Results - last 24 hr 08/09/24 08/09/24 08:44 08:45 MCV 82.6 82.8 MCH 29.1 29.0 MCHC 35.2 35.0 RDW 14.6 14.6 Plt Count 170 177 MPV 9.0 L 9.6 Immature Gran % (Auto) 0.3 0.0 Neut % (Auto) 32.4 L 32.7 L Lymph % (Auto) 53.5 H 52.3 H Giles % (Auto) 11.3 H 12.6 H Eos % (Auto) 1.4 1.3 Baso % (Auto) 1.1 1.1 Lymph # (Auto) 1.9 2.0 Giles # (Auto) 0.4 0.5 Eos # (Auto) 0.1 0.1 Baso # (Auto) 0.0 0.0 Abs Immat Gran (auto) 0.01 0.00 Absolute Neuts (auto) 1.2 L 1.2 L Absolute Nucleated RBC 0.000 0.000 Nucleated RBC % (auto) 0.0 0.0 Hold Blue Top SEE NOTE Anion Gap 24 H Estim Creat Clear Calc 113.6 Estimated GFR > 60 Random Glucose 82 Calcium 9.3 D Magnesium 2.4 Total Bilirubin 0.4 Direct Bilirubin 0.2 AST 110 H ALT 86 H Alkaline Phosphatase 63 Total Protein 8.7 H Albumin 4.9 Lipase 25 Urine Color Yellow Urine Appearance Clear Urine pH 5.5 Ur Specific Gonzales 1.010 Urine Protein 100 (2+) H Urine Glucose (UA) Negative Urine Ketones Negative Urine Blood Trace H Urine Nitrite Negative Ur Leukocyte Esterase Negative Urine RBC 0-2 Urine WBC 0-5 Ur Squamous Epith Cells 0-2 Urine Bacteria None Seen Hyaline Casts 3-5 Salicylates < 5.0 L Urine Opiates Screen Not Detected Ur Buprenorphine Scrn Not Detected Ur Oxycodone Screen Positive H Urine Methadone Screen Not Detected Urine Fentanyl Screen Not Detected Acetaminophen < 3 Ur Barbiturates Screen POSITIVE H Ur Phencyclidine Scrn Not Detected Ur Amphetamines Screen Not Detected U Benzodiazepines Scrn POSITIVE H Urine Cocaine Screen Not Detected U Marijuana (THC) Screen Not Detected Ethyl Alcohol 342 H* Imaging Radiologist's Impressions: Impressions Face CT 08/09/24 09:17 IMPRESSION: 1. Bilateral comminuted and displaced nasal bone fractures. Nondisplaced fracture of the anterior bony nasal septum. 2. Maxillary spines, orbits, nasal process, and mandible appear intact. No additional fractures evident. 3. Soft tissue swelling about the nasion, glabella, extending to overlie the left frontal scalp. Electronically signed by: Kar Coughlin MD 08/09/2024 10:33 AM EDT RP Head CT 08/09/24 09:18 IMPRESSION: No acute intracranial abnormality. Electronically signed by: Greg Brewer MD 08/09/2024 10:21 AM EDT RP Cervical Spine CT 08/09/24 09:34 IMPRESSION: No evidence of fracture or malalignment of the cervical spine. Electronically signed by: Greg Brewer MD 08/09/2024 10:25 AM EDT RP Assessment and Plan (1) Alcohol withdrawal: Qualifiers: Complication of substance-induced condition: with perceptual disturbance Qualified Code(s): F10.932 - Alcohol use, unspecified with withdrawal with perceptual disturbance Status: Acute Plan 38-year-old male with a past medical history of alcohol use disorder, history of DVT, gastritis, anxiety, depression presented to the hospital today with a chief complaint of fall. Fall: Mechanical in nature. CT head and CT C-spine showed acute findings. Fall precaution PT/OT when ready for discharge Nasal bone fracture: Traumatic. Breathing comfortably. Supportive care. Recommended ENT follow-up as outpatient. Pain control. Alcohol withdrawal: Patient has been drinking heavily over the past 4 days. Last drink was prior to coming to the hospital. Currently noted to be tremulous, tachycardic. Being given phenobarbital loading dose. Monitor on CIWA with phenobarbital. Thiamine folate and multivitamins Patient consult avoid alcohol use. Transaminitis: Likely in the setting of alcohol use. Depression: Continue home fluoxetine. Patient denies any SI or HI. DVT prophylaxis: Lovenox Code status: Full code Quality Stroke Does the patient have a stroke diagnosis?: No VTE Prior VTE?: Yes VTE Risk Level:: Medical - moderate - high VTE Device Contraindication: Patient Refused VTE Drug Contraindication: N/A - Med Ordered
--- NOTE | 2024-08-09 22:49 | PHA.MEDREC ---
Addendum entered by Madie Ramírez RPh 08/09/24 22:58: Med rec was reviewed by leonel. Original Note: Pharmacy Consult ? Medication Reconciliation Pharmacy has completed the medication reconciliation. Spokr with patient and he confirmed his medicaiotn. Patient confirmed he never started taking the Disulfiram. He confirmed he has not been able to take any medications in 4 days.
[2024-08-09] MEDS: Enoxaparin Sodium 40 MG/0.4 ML SYRINGE SUBCUT (23:04)
[2024-08-09] MEDS: 0.9 % Sodium Chloride Flush 3 ML SYRINGE IVFLUSH (23:07)
[2024-08-09] MEDS: Dextrose 5 % and 0.45 % NaCl 1,000 ML 100 ML IVCONT (23:07)
[2024-08-10] VITALS (8 sets, daily range): BP systolic 122–170; BP diastolic 64–100; PULSE 66–93; RESP 12–20; TEMP 36.5–37.1; O2SAT 93–97; BMI 28.8
[2024-08-10] MEDS: PHENobarbitaL sodium 130 MG/ML VIAL IM Q3Hx2 205 MG IM ×2 (00:06→03:22)
--- NOTE | 2024-08-10 01:24 | MHC.EDTECH ---
This tech took over care of pt at 0100AM,rounds completed,pt is resting quietly,call jack in reach
[2024-08-10 05:22] LABS: Hematocrit 37.8 % (42.0-52.0); Mean Corpuscular HGB Conc 34.4 g/dl (31.0-36.0); Mean Corpuscular Hemoglobin 28.2 pg (27.0-33.0); Mean Platelet Volume 9.3 fL (9.4-12.4); Platelet Count 107 X10*3/uL (160-400); Red Blood Count 4.61 X10*6/uL (4.60-5.80); Red Cell Distribution Width 14.1 % (11.0-16.0); White Blood Count 2.6 X10*3/uL (4.8-10.8)
[2024-08-10 05:48] LABS: Alanine Aminotransferase 63 U/L (0-40); Albumin Level 3.9 g/dL (3.5-5.0); Alkaline Phosphatase 48 U/L (39-117); Anion Gap 14 (12-20); Aspartate Amino Transferase 74 U/L (5-37); Bilirubin Total 0.9 mg/dL (0.0-1.0); Blood Urea Nitrogen 9 mg/dL (9-16); Calcium 9.1 mg/dL (8.4-10.2); Carbon Dioxide 27 mmol/L (22-29); Chloride 98 mmol/L (96-108); Creatinine Clr Calc Pharmacy 140.9; Estimated Glomerular Filt Rate > 60; Glucose Random 108 mg/dL (60-115); Potassium 3.2 mmol/L (3.3-5.1); Sodium 136 mmol/L (135-145); Total Protein 7.1 g/dL (6.5-8.0)
[2024-08-10] MEDS: Pantoprazole Sodium 40 MG/10 ML VIAL IVPUSH (06:01)
[2024-08-10] MEDS: Multivitamin TABLET 1 TAB PO (08:47)
[2024-08-10] MEDS: Dextrose 5 % and 0.45 % NaCl 1,000 ML 100 ML IVCONT (08:47)
[2024-08-10] MEDS: FLUoxetine HCl 20 MG CAPSULE 40 MG PO (08:47)
[2024-08-10] MEDS: PHENobarbitaL 15 MG TABLET 45 MG PO ×2 (08:48→21:13)
[2024-08-10] MEDS: Thiamine HCL 100 MG TABLET PO (08:48)
[2024-08-10] MEDS: Folic Acid 1 MG TABLET PO (08:49)
--- NOTE | 2024-08-10 09:14 | MHC.CM.PN ---
Patient lives alone and is functionally independent. Home self care vs Recovery Team intervention r/t ETOH is the tentative dc plan and CM has initiated and will follow for dc planning. PCP is Dr. Galen Ordonez and Father/Duncan is HCP. Patient will arrange his own transport to home at dc.
--- NOTE | 2024-08-10 12:22 | P.PNIM_ITS ---
Subjective Subjective Date of Service: 08/10/24 Interval History: shaky, nose pain manageable Physical Exam 2 Vital Signs: Vital Signs: Last Vital Signs Temp 98.8 F 08/10/24 10:52 Pulse 89 08/10/24 10:52 Resp 18 08/10/24 10:52 BP 140/89 H 08/10/24 10:52 Pulse Ox 94 08/10/24 10:52 O2 Del Method Room Air 08/10/24 10:52 O2 Flow Rate 2 08/10/24 08:42 BMI result Body Mass Index 28.8 Bruising around his bilateral, bruising on bridge of nose and swelling Alert oriented x3, no acute distress, tremulous Objective Data Active Medications Acetaminophen (Acetaminophen 325 Mg Tablet) 650 mg PO Q6H PRN PRN Reason: Pain, Mild 1-3,fever,headache Calcium Carbonate (Calcium Carbonate 750 Mg Tab.Chew) 750 mg PO Q4H PRN PRN Reason: Heartburn Enoxaparin Sodium (Enoxaparin Sodium 40 Mg/0.4 Ml Syringe) 40 mg SUBCUT Q24H [facility] Last Admin: 08/09/24 23:04 Dose: 40 mg Documented By: DESMOND Fluoxetine HCl (Fluoxetine Hcl 20 Mg Capsule) 40 mg PO DAILY [facility] Last Admin: 08/10/24 08:47 Dose: 40 mg Documented By: ANGELICA Folic Acid (Folic Acid 1 Mg Tablet) 1 mg PO DAILY [facility] Stop: 08/13/24 08:59 Last Admin: 08/10/24 08:49 Dose: 1 mg Documented By: ANGELICA Dextrose/Sodium Chloride (D51/2ns) 1,000 mls @ 100 mls/hr IVCONT .Q10H [facility] Last Admin: 08/10/24 08:47 Dose: 100 mls/hr Documented By: ANGELICA Magnesium Hydroxide (Milk Of Magnesia 30 Ml Oral.Susp) 30 ml PO DAILY PRN PRN Reason: Constipation Melatonin (Melatonin 3 Mg Tablet) 6 mg PO BEDTIME PRN PRN Reason: Insomnia Multivitamins/Vitamin C (Multivitamin Tablet) 1 tab PO DAILY [facility] Stop: 08/13/24 08:59 Last Admin: 08/10/24 08:47 Dose: 1 tab Documented By: ANGELICA Ondansetron HCl (Ondansetron Hcl 4 Mg/2 Ml Vial) 4 mg IVPUSH Q8H PRN PRN Reason: Nausea and Vomiting Pantoprazole Sodium (Pantoprazole Sodium 40 Mg/10 Ml Vial) 40 mg IVPUSH DAILY@0630 [facility] Last Admin: 08/10/24 06:01 Dose: 40 mg Documented By: DESMOND Pharmacy Consult (Consult Rx Etoh Phenob Im/Po) 1 each MISCELLANE ONCE PRN; Protocol PRN Reason: Consult order Phenobarbital (Phenobarbital 15 Mg Tablet) 45 mg PO BID [facility] Stop: 08/11/24 21:01 Last Admin: 08/10/24 08:48 Dose: 45 mg Documented By: ANGELICA Phenobarbital (Phenobarbital 30 Mg Tablet) 30 mg PO BID [facility] Stop: 08/13/24 21:01 Phenobarbital (Phenobarbital 15 Mg Tablet) 15 mg PO DAILY [facility] Stop: 08/15/24 09:01 Sodium Chloride (0.9 % Sodium Chloride Flush 3 Ml Syringe) 3 ml IVFLUSH QSHIFT [facility] Last Admin: 08/10/24 09:04 Dose: Not Given Documented By: ANGELICA Non-Admin Reason: IV Running Thiamine HCl (Thiamine Hcl 100 Mg Tablet) 100 mg PO DAILY [facility] Stop: 08/13/24 08:59 Last Admin: 08/10/24 08:48 Dose: 100 mg Documented By: ANGELICA Labs 08/10/24 05:07 08/10/24 05:07 Labs: Laboratory Results - last 24 hr 08/10/24 05:07 MCV 82.0 MCH 28.2 MCHC 34.4 RDW 14.1 Plt Count 107 L D MPV 9.3 L Absolute Nucleated RBC 0.000 Nucleated RBC % (auto) 0.0 Anion Gap 14 Estim Creat Clear Calc 140.9 Estimated GFR > 60 Random Glucose 108 Calcium 9.1 Magnesium 2.0 Total Bilirubin 0.9 AST 74 H ALT 63 H Alkaline Phosphatase 48 Total Protein 7.1 Albumin 3.9 Assessment and Plan (1) Alcohol use disorder, severe, dependence: Status: Acute Plan 38M PMH alcohol dependence, history of DVT no longer on anticoagulation, gastritis, anxiety, depression presented with fall now complicated by alcohol withdrawal Mechanical fall likely related to alcohol complicated by nasal bone fracture Outpatient ENT follow up, pain control Alcohol dependence with withdrawal Continue phenobarb, monitor CIWA Alcoholic fatty liver Abstinence recommended Mood disorder Continue fluoxetine DVT prophylaxis with Lovenox Full Code reason for continued hospitalization: Active withdrawal Quality Stroke Does the patient have a stroke diagnosis?: No VTE Prior VTE?: Yes VTE Risk Level:: Medical - moderate - high VTE Device Contraindication: Patient Refused VTE Drug Contraindication: N/A - Med Ordered
[2024-08-10] MEDS: 0.9 % Sodium Chloride Flush 3 ML SYRINGE IVFLUSH (15:57)
[2024-08-10] MEDS: Enoxaparin Sodium 40 MG/0.4 ML SYRINGE SUBCUT (21:13)
[2024-08-11 04:00] VITALS: BP 141/92; PULSE 74; RESP 16; TEMP 36.6; O2SAT 98
[2024-08-11] MEDS: Pantoprazole Sodium 40 MG/10 ML VIAL IVPUSH (06:07)
[2024-08-11] MEDS: Thiamine HCL 100 MG TABLET PO (07:51)
[2024-08-11] MEDS: FLUoxetine HCl 20 MG CAPSULE 40 MG PO (07:51)
[2024-08-11] MEDS: Multivitamin TABLET 1 TAB PO (07:51)
[2024-08-11] MEDS: 0.9 % Sodium Chloride Flush 3 ML SYRINGE IVFLUSH ×3 (07:51→19:35)
[2024-08-11] MEDS: Folic Acid 1 MG TABLET PO (07:51)
[2024-08-11] MEDS: PHENobarbitaL 15 MG TABLET 45 MG PO ×2 (07:51→19:34)
[2024-08-11 07:54] VITALS: BP 143/78; PULSE 74; RESP 18; TEMP 36.1; O2SAT 97
[2024-08-11 08:07] LABS: Hematocrit 38.5 % (42.0-52.0); Hemoglobin 13.2 g/dl (14.0-18.0); Mean Corpuscular HGB Conc 34.3 g/dl (31.0-36.0); Mean Corpuscular Hemoglobin 28.8 pg (27.0-33.0); Mean Corpuscular Volume 83.9 fL (80.0-98.0); Mean Platelet Volume 9.5 fL (9.4-12.4); Red Blood Count 4.59 X10*6/uL (4.60-5.80); Red Cell Distribution Width 14.1 % (11.0-16.0); White Blood Count 3.1 X10*3/uL (4.8-10.8)
[2024-08-11 08:08] LABS: Platelet Count 94 X10*3/uL (160-400)
[2024-08-11 08:21] LABS: Anion Gap 13 (12-20); Blood Urea Nitrogen 6 mg/dL (9-16); Calcium 9.5 mg/dL (8.4-10.2); Carbon Dioxide 26 mmol/L (22-29); Chloride 102 mmol/L (96-108); Creatinine Clr Calc Pharmacy 138.6; Estimated Glomerular Filt Rate > 60; Glucose Random 95 mg/dL (60-115); Potassium 3.7 mmol/L (3.3-5.1); Sodium 137 mmol/L (135-145)
--- NOTE | 2024-08-11 10:45 | HO.PM.IMPN ---
Subjective Subjective Date of Service: 08/11/24 Interval History: Nose pain, still little jittery Physical Exam Vital Signs: Vital Signs: Last Vital Signs Temp 97.0 F 08/11/24 07:54 Pulse 74 08/11/24 07:54 Resp 18 08/11/24 07:54 BP 143/78 H 08/11/24 07:54 Pulse Ox 97 08/11/24 07:54 O2 Del Method Room Air 08/11/24 07:54 O2 Flow Rate 2 08/10/24 08:42 BMI result Body Mass Index 28.8 Bruising around his bilateral, bruising on bridge of nose and swelling Alert oriented x3, no acute distress, tremulous Objective Data Active Medications Acetaminophen (Acetaminophen 325 Mg Tablet) 650 mg PO Q6H PRN PRN Reason: Pain, Mild 1-3,fever,headache Calcium Carbonate (Calcium Carbonate 750 Mg Tab.Chew) 750 mg PO Q4H PRN PRN Reason: Heartburn Enoxaparin Sodium (Enoxaparin Sodium 40 Mg/0.4 Ml Syringe) 40 mg SUBCUT Q24H [facility] Last Admin: 08/10/24 21:13 Dose: 40 mg Documented By: VALERIE Fluoxetine HCl (Fluoxetine Hcl 20 Mg Capsule) 40 mg PO DAILY [facility] Last Admin: 08/11/24 07:51 Dose: 40 mg Documented By: TOM Folic Acid (Folic Acid 1 Mg Tablet) 1 mg PO DAILY [facility] Stop: 08/13/24 08:59 Last Admin: 08/11/24 07:51 Dose: 1 mg Documented By: TOM Magnesium Hydroxide (Milk Of Magnesia 30 Ml Oral.Susp) 30 ml PO DAILY PRN PRN Reason: Constipation Melatonin (Melatonin 3 Mg Tablet) 6 mg PO BEDTIME PRN PRN Reason: Insomnia Multivitamins/Vitamin C (Multivitamin Tablet) 1 tab PO DAILY [facility] Stop: 08/13/24 08:59 Last Admin: 08/11/24 07:51 Dose: 1 tab Documented By: TOM Ondansetron HCl (Ondansetron Hcl 4 Mg/2 Ml Vial) 4 mg IVPUSH Q8H PRN PRN Reason: Nausea and Vomiting Pantoprazole Sodium (Pantoprazole Sodium 40 Mg/10 Ml Vial) 40 mg IVPUSH DAILY@0630 [facility] Last Admin: 08/11/24 06:07 Dose: 40 mg Documented By: VALERIE Pharmacy Consult (Consult Rx Etoh Phenob Im/Po) 1 each MISCELLANE ONCE PRN; Protocol PRN Reason: Consult order Phenobarbital (Phenobarbital 15 Mg Tablet) 45 mg PO BID [facility] Stop: 08/11/24 21:01 Last Admin: 08/11/24 07:51 Dose: 45 mg Documented By: TOM Phenobarbital (Phenobarbital 30 Mg Tablet) 30 mg PO BID [facility] Stop: 08/13/24 21:01 Phenobarbital (Phenobarbital 15 Mg Tablet) 15 mg PO DAILY [facility] Stop: 08/15/24 09:01 Sodium Chloride (0.9 % Sodium Chloride Flush 3 Ml Syringe) 3 ml IVFLUSH QSHIFT [facility] Last Admin: 08/11/24 07:51 Dose: 3 ml Documented By: TOM Thiamine HCl (Thiamine Hcl 100 Mg Tablet) 100 mg PO DAILY [facility] Stop: 08/13/24 08:59 Last Admin: 08/11/24 07:51 Dose: 100 mg Documented By: TOM Labs 08/11/24 07:58 08/11/24 07:58 Labs: Laboratory Results - last 24 hr 08/11/24 07:58 MCV 83.9 MCH 28.8 MCHC 34.3 RDW 14.1 Plt Count 94 L MPV 9.5 Absolute Nucleated RBC 0.000 Nucleated RBC % (auto) 0.0 Anion Gap 13 Estim Creat Clear Calc 138.6 Estimated GFR > 60 Random Glucose 95 Calcium 9.5 Magnesium 2.0 Assessment and Plan (1) Alcohol use disorder, severe, dependence: Status: Acute Plan 38M PMH alcohol dependence, history of DVT no longer on anticoagulation, gastritis, anxiety, depression presented with fall now complicated by alcohol withdrawal Mechanical fall likely related to alcohol complicated by nasal bone fracture Outpatient ENT follow up, pain control Alcohol dependence with withdrawal Continue phenobarb, monitor CIWA Alcoholic fatty liver Abstinence recommended Mood disorder Continue fluoxetine DVT prophylaxis with Lovenox Full Code reason for continued hospitalization: Active withdrawal Quality Stroke Does the patient have a stroke diagnosis?: No VTE Prior VTE?: Yes VTE Risk Level:: Medical - moderate - high VTE Device Contraindication: Patient Refused VTE Drug Contraindication: N/A - Med Ordered
[2024-08-11 11:30] VITALS: BP 140/78; PULSE 79; RESP 18; TEMP 36.3; O2SAT 97
[2024-08-11 15:41] VITALS: BP 138/99; PULSE 75; RESP 18; TEMP 36.7; O2SAT 95
[2024-08-11] MEDS: Enoxaparin Sodium 40 MG/0.4 ML SYRINGE SUBCUT (19:33)
[2024-08-11 19:35] VITALS: BP 134/89; PULSE 98; RESP 16; TEMP 36.9; O2SAT 98
[2024-08-11 23:50] VITALS: BP 132/84; PULSE 73; RESP 16; TEMP 37.1; O2SAT 98
[2024-08-12 04:00] VITALS: BP 154/91; PULSE 65; RESP 16; TEMP 36.9; O2SAT 97
[2024-08-12] MEDS: Pantoprazole Sodium 40 MG/10 ML VIAL IVPUSH (04:05)
[2024-08-12] MEDS: PHENobarbitaL 30 MG TABLET PO ×2 (04:46→08:39)
[2024-08-12 07:19] VITALS: BP 136/83; PULSE 68; RESP 20; TEMP 37; O2SAT 97
[2024-08-12] MEDS: Multivitamin TABLET 1 TAB PO (08:39)
[2024-08-12] MEDS: Thiamine HCL 100 MG TABLET PO (08:39)
[2024-08-12] MEDS: Folic Acid 1 MG TABLET PO (08:39)
[2024-08-12] MEDS: FLUoxetine HCl 20 MG CAPSULE 40 MG PO (08:39)
[2024-08-12] MEDS: 0.9 % Sodium Chloride Flush 3 ML SYRINGE IVFLUSH (08:41)
--- NOTE | 2024-08-12 09:55 | PM.DS ---
DS: Providers Provider Date of Service: 08/12/24 Date of admission: 08/09/24 22:26 Date of discharge: 08/12/24 Primary care physician: Galen Ordonez MD DS: Diagnosis Discharge Diagnosis (1) Alcohol use disorder, severe, dependence: Status: Acute DS: Summary Hospital Course Hospital Course: from initial hpi: 38-year-old male with a past medical history of alcohol use disorder, history of DVT, gastritis, anxiety, depression presented to the hospital today with a chief complaint of fall. Patient reported that he was walking on his driveway, tripped and fell, landed on his face; denies any headaches or blurry visions. Denies any neck pain or back pain. Denies any hip pain. Reports mild pain in his nose. Patient reports that lately he is feeling low. Recently lost a job. Unsure if he is going to get a new job. Has been drinking heavily for the past 4 days. Reports that in general he drinks 6-8 beers. Over the past 4 days he has been drinking box of wine. Denies nausea or vomiting. Reports decreased appetite. Denies any chest pain or palpitations. Reports being tremulous. Review of all other systems is negative except mentioned above ER course: Per ER team, patient had CT head done which showed nasal bone fracture; breathing comfortably no epistaxis; patient was also noted to be tremulous and tachycardic concerning for acute alcohol withdrawal. Liver enzymes slightly elevated. Patient was loaded with phenobarbital per ER patient. hospital course: Patient was admitted for mechanical fall likely related to alcohol complicated by nasal bone fracture. Course further complicated by alcohol dependence with withdrawal. Patient was treated with phenobarbital and withdrawal symptoms resolved. Was seen by Addiction team and arrangements made for discharge to detox center. For nasal fracture pain is controlled, recommended to avoid re-injury and to follow up with ENT as outpatient. For alcoholic fatty liver abstinence recommended. For mood disorder continue fluoxetine. Time Attestation Discharge Coordination Time (in mins): 37 Quality: Safe Use of Opioids Does Pt have an Active Cancer Diagnosis on the Problem List?: No Quality: Stroke Does the patient have a stroke diagnosis?: No Physical Exam Vital Signs: Vital Signs: Last Vital Signs Temp 98.6 F 08/12/24 07:19 Pulse 68 08/12/24 07:19 Resp 20 08/12/24 07:19 BP 136/83 08/12/24 07:19 Pulse Ox 97 08/12/24 07:19 O2 Del Method Room Air 08/12/24 07:19 O2 Flow Rate 2 08/10/24 08:42 BMI result Body Mass Index 28.8 Bruising around his bilateral, bruising on bridge of nose and swelling Alert oriented x3, no acute distress, tremors resolved DS: Data Data Completed and Pending Completed studies during hospitalization [Text1]: Procedures Detoxification Services for Substance Abuse Treatment (07/19/24) Discharge Plan Discharge Anticipated Discharge Date/Time: 08/12/24 09:53 Patient Disposition: Xfer Other Discharge Diagnosis: nose fracture, fall, etoh withdrawal Referrals: Galen Ordonez MD [Primary Care Provider] - 1 Week Discharge Medications: Continued fluoxetine 40 mg capsule 40 mg PO DAILY trazodone 50 mg tablet 50 mg PO BEDTIME thiamine HCl (vitamin B1) [Vitamin B-1] 100 mg Tablet 100 mg PO DAILY omeprazole 20 mg capsule,delayed release(DR/EC) 20 mg PO DAILY@0630 Discharge Orders: Discharge Order (Routine); Ordered 08/12/24 Ordered By: Velasquez Cole Diet: Advance to usual diet Activity on Discharge: As tolerated Stand Alone Forms: Patient Portal Discharge page Print Language: Kiswahili Care Plan Goals: recovery Health Concerns: etoh, nasal fracture Plan of Treatment: for nasal fracture - protect area to avoid reinjury, can follow up with ENT plan for dc to detox, avoid etoh Assessment: see above
--- NOTE | 2024-08-12 10:21 | MHC.CM.PN ---
PATIENT IS DC TODAY WITH RECOVERY TEAM SUPPORTS PROVIDED.
[2024-08-12 11:10] VITALS: BP 140/82; PULSE 79; RESP 18; TEMP 36.8; O2SAT 97
--- NOTE | 2024-08-12 11:43 | MHC.RECOVRN ---
Met with pt in 477. Pt discharging today to [facility]. Pts dad dropping off belongings. [facility] aware pt will be presenting later this afternoon. [place] scheduled for 1:30PM to pick pt up at main entrance to transport to [facility]. ESTEVAN aware.
== END 2024-08-12 13:26 | disposition other institution (70) | DRG 775 ==
LOC: HO.ED 22:08 → HO.EDOVER 22:35 → HO.IMC 08-10 08:40
PROVIDERS: Student in an Organized Health Care Education/Training Program; Admitting Provider Hospitalist; Emergency Provider Emergency Medicine Emergency Medical Services; PCP Internal Medicine; Visit Provider Internal Medicine
DX: F10.239 Alcohol dependence with withdrawal, unspecified (principal); F10.229 Alcohol dependence with intoxication, unspecified; K70.0 Alcoholic fatty liver; S02.2XXA Fracture of nasal bones, initial encounter for closed fracture; W19.XXXA Unspecified fall, initial encounter; F32.A Depression, unspecified; Y90.8 Blood alcohol level of 240 mg/100 ml or more; Z86.718 Personal history of other venous thrombosis and embolism; Z79.899 Other long term (current) drug therapy
CPT/HCPCS: 36415; 70450; 70486; 72125; 80048; 80053; 80076; 80143; 80179; 80307; 81001; 83690; 83735; 85025; 85027; 90715; 93005; 99285; J1650; J2470; J2560; S9485

== ENCOUNTER → 2024-08-09 08:47 | Outpatient (BNV) | payer OTHER, SELFPAY | PROVIDERS: Emergency Provider Student in an Organized Health Care Education/Training Program; PCP Internal Medicine; Visit Provider Internal Medicine | DX: R00.0 Tachycardia, unspecified (principal) | CPT/HCPCS: 93010 ==

== ENCOUNTER → 2024-08-09 09:18 | Outpatient (BNV) | payer OTHER, SELFPAY | PROVIDERS: Emergency Provider Student in an Organized Health Care Education/Training Program; PCP Internal Medicine; Visit Provider Radiology Diagnostic Radiology | DX: S02.2XXA Fracture of nasal bones, initial encounter for closed fracture (principal); R22.0 Localized swelling, mass and lump, head; S09.90XA Unspecified injury of head, initial encounter; W19.XXXA Unspecified fall, initial encounter | CPT/HCPCS: 70450; 70486; 72125 ==

== ENCOUNTER → 2024-08-09 22:26 | Outpatient (BNV) | payer OTHER, SELFPAY | PROVIDERS: Admitting Provider Hospitalist; Emergency Provider Emergency Medicine Emergency Medical Services; PCP Internal Medicine; Visit Provider Internal Medicine | DX: F10.232 Alcohol dependence with withdrawal with perceptual disturbance (principal) | CPT/HCPCS: 99223; 99232 ==

== ENCOUNTER 2024-09-19 12:50 | Emergency (ER) | payer OTHER, SELFPAY ==
[2024-09-19 12:54] VITALS: BP 186/114; PULSE 107; O2SAT 97
[2024-09-19 13:00] VITALS: BP 169/94; PULSE 103; RESP 22; O2SAT 98; BMI 28.1
--- NOTE | 2024-09-19 13:27 | ECG_ITS ---
Test Reason : ETOH Blood Pressure : */* mmHG Vent. Rate : 98 BPM Atrial Rate : 98 BPM P-R Int : 160 ms QRS Dur : 84 ms QT Int : 364 ms P-R-T Axes : 52 19 29 degrees QTcB Int : 464 ms Normal sinus rhythm Normal ECG When compared with ECG of 09-Aug-2024 08:47, No significant change was found Referred By: Taylor Levin Electronically Signed By: WILBERTO SMILEY
[2024-09-19] MEDS: LORazepam 1 MG TABLET 2 MG PO (13:37)
[2024-09-19] MEDS: Thiamine HCL 100 MG in 0.9 % Sodium Chloride 100 ML 202 MG IV (13:37)
[2024-09-19] MEDS: 0.9 % Sodium Chloride 1,000 ML 999 ML IV (13:40)
[2024-09-19] MEDS: Pantoprazole Sodium 40 MG/10 ML VIAL 80 MG IVPUSH (13:40)
[2024-09-19 14:03] LABS: MANUAL DIFF FLAG NO
[2024-09-19 14:06] LABS: Basophils Percent Auto 0.4 % (0-2); Hemoglobin 14.2 g/dl (14.0-18.0); Imm Gran Abs Auto 0.04 X10*3/uL (0.00-0.03); Imm Gran Pct Auto 0.4 % (0.0-0.4); Lymphocytes Absolute Auto 0.4 X10*3/uL (1.2-4.9); Lymphocytes Percent Auto 3.8 % (20-40); Mean Corpuscular HGB Conc 35.5 g/dl (31.0-36.0); Mean Corpuscular Hemoglobin 29.4 pg (27.0-33.0); Mean Corpuscular Volume 82.8 fL (80.0-98.0); Mean Platelet Volume 9.3 fL (9.4-12.4); Monocytes Absolute Auto 0.8 X10*3/uL (0.1-1.2); Neutrophils Absolute Auto 8.6 x10*3/uL (2.0-8.3); Neutrophils Percent Auto 87.4 % (45-73); Platelet Count 182 X10*3/uL (160-400); Red Blood Count 4.83 X10*6/uL (4.60-5.80); Red Cell Distribution Width 13.5 % (11.0-16.0); White Blood Count 9.9 X10*3/uL (4.8-10.8)
--- NOTE | 2024-09-19 14:07 | ED.ALCOHOL ---
HPI - Alcohol General Chief Complaint: ETOH/Substance Use Stated Complaint: VOMIT X3D,VOMITED BLOOD 20MIN AGO,ETOH LAST NIGHT Time Seen by Provider: 09/19/24 13:16 Source: patient, EMS, RN notes reviewed and old records reviewed Mode of arrival: EMS History of Present Illness ED Provider: Taylor Levin PA-C HPI narrative: 38-year-old male with a past medical history of ETOH abuse, HTN, anxiety, depression, presenting to the ED via EMS complaining of alcohol withdrawal symptoms x today with shakiness and abdominal pain. Admits to use binge drinking over the weekend, buying a bottle of vodka daily, last drink last night. States also currently on Vivitrol. Reports some nausea, vomiting, and dark red emesis. Also reports visual hallucinations. Admits to using THC pen. Denies SI/HI, diarrhea, melena/bloody stools, dysuria/hematuria Related Data Home Medications ?Medication ?Instructions ?Recorded ?Confirmed fluoxetine 40 mg capsule 40 mg PO DAILY 08/09/24 09/19/24 omeprazole 20 mg capsule,delayed 20 mg PO DAILY@0630 08/09/24 09/19/24 release thiamine HCl (vitamin B1) 100 mg 100 mg PO DAILY 08/09/24 09/19/24 tablet (Vitamin B-1) trazodone 50 mg tablet 50 mg PO BEDTIME 08/09/24 09/19/24 hydroxyzine HCl 50 mg tablet 50 mg PO BID 09/19/24 09/19/24 Allergies Allergy/AdvReac Type Severity Reaction Status Date / Time No Known Allergies Allergy Unknown UNKNOWN Verified 09/19/24 13:02 [NO KNOWN ALLERGIES] Review of Systems Review of Systems: Yes all other systems are reviewed and are negative Constitutional: Constitutional: Reports as per HPI [facility] Past Medical History Attestation statement: The following information was validated with the patient. Source: old records reviewed Medical History Alcohol abuse Deep vein thrombosis, upper right extremity Alcohol use disorder, severe, dependence Alcohol abuse Elevated LFTs Recurrent major depression-severe Alcohol withdrawal syndrome Hypertension Anxiety and depression Psychiatric disturbance Family History Family History Other Lung cancer Social History Social History Household Members: Family Housing: House Do you presently have visiting nurse or other home services: No Alcohol intake: current Alcohol intake frequency: 3 or more drinks per day Alcohol type: hard liquor Comment: patient refusing alarms Patient Tobacco Use Status: Never used Tobacco Smoked in Last 30 Days: No e-Cigarette/Vaping Use: Never Used Second Hand Smoke Exposure: No Use of substances other than those prescribed or required for medical reasons: No Substance Use Type: Marijuana Advance Directives: Yes Advance Directives on File: Yes Advance Directives Date on File: 01/08/21 Do you have a plan to hurt others: No Plan service: No Current occupational status: unemployed Sexual orientation: Straight/Heterosexual Physical Exam ED Vital Signs: Vital Signs - 24 hr 09/19/24 13:00 09/19/24 16:00 09/19/24 18:14 Temperature 98.1 F Pulse Rate 103 H 85 90 Respiratory Rate 22 H 16 18 Blood Pressure 169/94 H 129/78 148/85 H Pulse Oximetry 98 98 98 Oxygen Delivery Method Room Air Room Air Room Air 09/19/24 19:33 09/19/24 22:27 09/20/24 01:42 Temperature 98.2 F Pulse Rate 87 88 56 Respiratory Rate 18 16 20 Blood Pressure 147/81 H 131/84 117/77 Pulse Oximetry 97 96 95 Oxygen Delivery Method Room Air Room Air Room Air 09/20/24 06:02 09/20/24 08:16 Temperature 97.9 F 98.1 F Pulse Rate 57 82 Respiratory Rate 15 18 Blood Pressure 128/80 129/78 Pulse Oximetry 99 98 Oxygen Delivery Method Room Air Room Air BMI result Body Mass Index 28.1 Const General: cooperative, no acute distress, alert and awake Orientation/consciousness: patient oriented x3 Limitations: no limitations HENMT Head: Yes normal to inspection and Yes atraumatic Ears: hearing grossly normal bilaterally General nose exam: Normal external nose present Face and sinus: Yes normal facial exam Mouth: Normal oral and palatal mucosa present Eyes General: appearance normal, both eyes and all related structures EOM: EOMs intact bilaterally Neck Neck: Yes normal visual inspection and Yes no meningeal signs Resp Effort & Inspection: normal respiratory effort and no respiratory distress Auscultation: clear to auscultation bilaterally Cardio Rate: regular rate Heart sounds: S1 normal heart sound present and S2 normal heart sound present GI Inspection: Yes normal to inspection Palpation (GI): Soft to palpation, nontender, no guarding and not rigid General: Yes no CVA tenderness Back/Spine/Pelvis Back: no CVA tenderness Skin Rashes: no rashes Wounds: no wounds Neuro Other: Tremulous. No tongue fasciculations General: patient oriented x3, tone normal, moves all extremities, no meningeal signs, no focal motor deficits and CN's II-XI intact bilaterally Cranial nerves: Yes CN's II-XII intact bilaterally Cognition (Neuro): normal cognition Motor exam (neuro): 5/5 motor strength present throughout Extrem General: Yes normal to inspection Psych Thought content: suicidality, no homicidality and Hallucination(s) present visual Course Course Course Narrative: -1602--no leukocytosis. H/H stable. Anion gap of 24 > likely from chronic ETOH use. -ethanol < 10 -viral testing negative -occult stool positive > will discuss case with on-call GI, Dr. Tyler. No evidence of active hematemesis since ED arrival > vitals and H/H stable -1655 - GI has been paged 2x w/o call back -1709--case discussed with GI, Dr. Tyler recommended initiating PPI and cessation of ETOH abuse. No need for admission at this time. Physician observation initiated as patient needs more time to be evaluated by recovery team for detox -1800--ED care transferred to [facility] pending recovery eval Time: 08:17 Date: 09/20/24 Provider: GLENYS Kulkarni Patient in physician observation for psychiatric evaluation.? No acute events reported overnight. No current complaints. VS stable.? Patient is pending addiction med evaluation. CIWA this morning is 1. Will continue to monitor. Time: 12:03 Date: 09/20/24 Provider: GLENYS Kulkarni Repeat labs obtained today show stable H&H. Resolution of alkalosis. Anion gap closed. Sodium 135. Carbon dioxide 24. vital signs stable. well appearing. Physician observation ended at 1203. Patient has been cleared for discharge by addiction med. He is declining any detox at this time. He would like to be discharged home. Will follow up as an outpatient. Medical Decision Making Medical Decision Making [facility] Narrative: 38-year-old male with a past medical history of ETOH abuse, HTN, anxiety, depression, presenting to the ED via EMS complaining of alcohol withdrawal symptoms x today with shakiness and abdominal pain. On exam hypertensive, tachycardic, tremulous, no tongue fasciculations, abdomen is soft with mild epigastric tenderness, no rebound or guarding. Concern for ETOH withdrawal vs variceal bleeding vs PUD/gastritis vs pancreatitis. Lower suspicion for acute cholecystitis/lithiasis, appendicitis/diverticulitis or ACS at this time Plan: EKG, labs, UA, CIWA protocol, Ativan, symptomatic remedies, re-evaluate. Please refer to course for remaining clinical decision making, interpretation of labs/imaging results, and discussions with consultants and/or family members. Differential Diagnosis Differential Diagnoses: The differential diagnosis associated with the presentation includes As above Admission/Observation Consideration of admission/observation: Escalation of care including admission/observation considered Lab Data MDM Lab Attestation statement: I reviewed the patient's lab results. 09/20/24 10:57 09/20/24 10:57 Labs: Lab Results 09/19/24 09/19/24 09/19/24 Range/Units 13:56 14:35 15:12 WBC 9.9 (4.8-10.8) X10*3/uL RBC 4.83 (4.60-5.80) X10*6/uL Hgb 14.2 (14.0-18.0) g/dl Hct 40.0 L (42.0-52.0) % MCV 82.8 (80.0-98.0) fL MCH 29.4 (27.0-33.0) pg MCHC 35.5 (31.0-36.0) g/dl RDW 13.5 (11.0-16.0) % Plt Count 182 D (160-400) X10*3/uL MPV 9.3 L (9.4-12.4) fL Immature Gran % (Auto) 0.4 (0.0-0.4) % Neut % (Auto) 87.4 H (45-73) % Lymph % (Auto) 3.8 L (20-40) % Boyd % (Auto) 8.0 (2-11) % Eos % (Auto) 0.0 (0-4) % Baso % (Auto) 0.4 (0-2) % Lymph # (Auto) 0.4 L (1.2-4.9) X10*3/uL Boyd # (Auto) 0.8 (0.1-1.2) X10*3/uL Eos # (Auto) 0.0 (0.0-0.4) X10*3/uL Baso # (Auto) 0.0 (0.0-0.2) X10*3/uL Abs Immat Gran (auto) 0.04 H (0.00-0.03) X10*3/uL Absolute Neuts (auto) 8.6 H (2.0-8.3) x10*3/uL Absolute Nucleated RBC 0.000 (0.0-0.012) X10*3/uL Nucleated RBC % (auto) 0.0 (0.0-0.2) /100WBC Sodium 133 L (135-145) mmol/L Potassium 4.4 (3.3-5.1) mmol/L Chloride 99 (96-108) mmol/L Carbon Dioxide 14 L (22-29) mmol/L Anion Gap 24 H (12-20) BUN 16 (9-16) mg/dL Creatinine 0.94 (0.5-1.4) mg/dL Estim Creat Clear Calc 112.4 Estimated GFR > 60 Random Glucose 178 H (60-115) mg/dL Calcium 8.5 D (8.4-10.2) mg/dL Magnesium 2.2 (1.6-2.6) mg/dL Total Bilirubin 1.3 H (0.0-1.0) mg/dL Direct Bilirubin 0.3 (0.0-0.5) mg/dL AST 36 (5-37) U/L ALT 36 (0-40) U/L Alkaline Phosphatase 59 (39-117) U/L Total Protein 7.0 (6.5-8.0) g/dL Albumin 4.3 (3.5-5.0) g/dL Lipase 13 (8-78) U/L Urine Color Urine Appearance Urine pH (5.0-9.0) Ur Specific [place] (1.005-1.025) Urine Protein (Neg-Trace) mg/dL Urine Glucose (UA) (Negative) mg/dL Urine Ketones (Negative) mg/dL Urine Blood (Negative) Urine Nitrite (Negative) Ur Leukocyte Esterase (Negative) Urine RBC (0-2) /HPF Urine WBC (0-5) /HPF Ur Squamous Epith Cells (0-2) /HPF Urine Bacteria (None Seen) Hyaline Casts (0-2) /LPF Stool Occult Blood POSITIVE (NEGATIVE) Urine Opiates Screen (Not Detect) Ur Buprenorphine Scrn (Not Detect) ng/mL Ur Oxycodone Screen (Not Detect) ng/mL Urine Methadone Screen (Not Detect) ng/mL Urine Fentanyl Screen (Not Detect) Ur Barbiturates Screen (Not Detect) Ur Phencyclidine Scrn (Not Detect) Ur Amphetamines Screen (Not Detect) U Benzodiazepines Scrn (Not Detect) Urine Cocaine Screen (Not Detect) U Marijuana (THC) Screen (Not Detect) Ethyl Alcohol < 10 mg/dL Influenza Type A (PCR) NEGATIVE (Negative) Influenza Type B (PCR) NEGATIVE (Negative) RSV RNA Qual (PCR) NEGATIVE (Negative) SARS-CoV-2 RNA (RT-PCR) NEGATIVE (Negative) 09/19/24 09/20/24 Range/Units 15:34 10:57 WBC 4.1 L (4.8-10.8) X10*3/uL RBC 4.59 L (4.60-5.80) X10*6/uL Hgb 13.6 L (14.0-18.0) g/dl Hct 38.0 L (42.0-52.0) % MCV 82.8 (80.0-98.0) fL MCH 29.6 (27.0-33.0) pg MCHC 35.8 (31.0-36.0) g/dl RDW 13.5 (11.0-16.0) % Plt Count 152 L (160-400) X10*3/uL MPV 9.1 L (9.4-12.4) fL Immature Gran % (Auto) 0.0 (0.0-0.4) % Neut % (Auto) 55.7 (45-73) % Lymph % (Auto) 25.1 (20-40) % Boyd % (Auto) 18.3 H (2-11) % Eos % (Auto) 0.2 (0-4) % Baso % (Auto) 0.7 (0-2) % Lymph # (Auto) 1.0 L (1.2-4.9) X10*3/uL Boyd # (Auto) 0.8 (0.1-1.2) X10*3/uL Eos # (Auto) 0.0 (0.0-0.4) X10*3/uL Baso # (Auto) 0.0 (0.0-0.2) X10*3/uL Abs Immat Gran (auto) 0.00 (0.00-0.03) X10*3/uL Absolute Neuts (auto) 2.3 (2.0-8.3) x10*3/uL Absolute Nucleated RBC 0.000 (0.0-0.012) X10*3/uL Nucleated RBC % (auto) 0.0 (0.0-0.2) /100WBC Sodium 135 (135-145) mmol/L Potassium 3.5 D (3.3-5.1) mmol/L Chloride 101 (96-108) mmol/L Carbon Dioxide 24 (22-29) mmol/L Anion Gap 14 (12-20) BUN 15 (9-16) mg/dL Creatinine 0.88 (0.5-1.4) mg/dL Estim Creat Clear Calc 120.1 Estimated GFR > 60 Random Glucose 138 H (60-115) mg/dL Calcium 9.2 D (8.4-10.2) mg/dL Magnesium (1.6-2.6) mg/dL Total Bilirubin 1.0 (0.0-1.0) mg/dL Direct Bilirubin (0.0-0.5) mg/dL AST 43 H (5-37) U/L ALT 36 (0-40) U/L Alkaline Phosphatase 59 (39-117) U/L Total Protein 7.3 (6.5-8.0) g/dL Albumin 4.5 (3.5-5.0) g/dL Lipase (8-78) U/L Urine Color Yellow Urine Appearance Clear Urine pH 5.5 (5.0-9.0) Ur Specific [place] 1.020 (1.005-1.025) Urine Protein 100 (2+) H (Neg-Trace) mg/dL Urine Glucose (UA) Negative (Negative) mg/dL Urine Ketones >=160 (Negative) mg/dL Urine Blood Negative (Negative) Urine Nitrite Negative (Negative) Ur Leukocyte Esterase Negative (Negative) Urine RBC 0-2 (0-2) /HPF Urine WBC 0-5 (0-5) /HPF Ur Squamous Epith Cells 0-2 (0-2) /HPF Urine Bacteria None Seen (None Seen) Hyaline Casts 0-2 (0-2) /LPF Stool Occult Blood (NEGATIVE) Urine Opiates Screen Not Detected (Not Detect) Ur Buprenorphine Scrn Not Detected (Not Detect) ng/mL Ur Oxycodone Screen Not Detected (Not Detect) ng/mL Urine Methadone Screen Not Detected (Not Detect) ng/mL Urine Fentanyl Screen Not Detected (Not Detect) Ur Barbiturates Screen Not Detected (Not Detect) Ur Phencyclidine Scrn Not Detected (Not Detect) Ur Amphetamines Screen Not Detected (Not Detect) U Benzodiazepines Scrn Not Detected (Not Detect) Urine Cocaine Screen Not Detected (Not Detect) U Marijuana (THC) Screen Not Detected (Not Detect) Ethyl Alcohol mg/dL Influenza Type A (PCR) (Negative) Influenza Type B (PCR) (Negative) RSV RNA Qual (PCR) (Negative) SARS-CoV-2 RNA (RT-PCR) (Negative) Independent Interpretation I performed an independent interpretation of an: EKG (My interpretation: EKG normal sinus rhythm rate of 98. FL interval 160. QTC 464. No significant change when compared to prior) Radiology Impression Discussion of test interpretation with radiology: I have reviewed the radiologist's reading. Independent Historian Clinical information obtained from an independent historian. History obtained from or confirmed by: EMS External Record Review External record reviewed: Inpatient record, Office record, Outpatient record, Prior outpatient labs, Prior outpatient radiology, Primary care record and Outside ED record Tests considered The following testing was considered but not selected: As above Prescription Management I considered prescription management with: Other Chronic Conditions Patient?s care impacted by: Other Social Determinants Patient?s care significantly limited by Social Determinants of Health including: Inadequate housing, Low income, Alcoholism and drug addiction in family, Problems related to primary support group, Unemployment, Problems related to employment and Other Social Determinant of Health Medications Administered Generic Name Dose Route Start Last Admin Trade Name Freq PRN Reason Stop Dose Admin Fluoxetine HCl 40 mg 09/20/24 09:00 09/20/24 08:37 Fluoxetine Hcl 20 Mg Capsule PO 40 mg DAILY VANESSA Administration Hydroxyzine HCl 50 mg 09/19/24 21:00 09/20/24 08:37 Hydroxyzine Hcl 50 Mg Tablet PO 50 mg BID VANESSA Administration Lorazepam 1 mg 09/19/24 17:08 09/20/24 08:36 Lorazepam 1 Mg Tablet PO 1 mg Q4H PRN Administration Alcohol Withdrawal Omeprazole 20 mg 09/20/24 06:30 09/20/24 07:20 Omeprazole 20 Mg Capsule.Dr PO 20 mg DAILY@0630 VANESSA Administration Thiamine HCl 100 mg 09/20/24 09:00 09/20/24 08:37 Thiamine Hcl 100 Mg Tablet PO 100 mg DAILY VANESSA Administration Trazodone HCl 50 mg 09/19/24 21:00 09/19/24 22:28 Trazodone Hcl 50 Mg Tablet PO 50 mg BEDTIME VANESSA Administration Discontinued Medications Generic Name Dose Route Start Last Admin Trade Name Freq PRN Reason Stop Dose Admin Sodium Chloride 1,000 mls @ 999 mls/hr 09/19/24 13:30 09/19/24 14:41 Ns IV 09/19/24 14:30 Infused .Q1H1M VANESSA Infusion Thiamine HCl 100 mg/ Sodium 101 mls @ 202 mls/hr 09/19/24 13:27 09/19/24 14:09 Chloride IV 09/19/24 13:56 Infused ONCE ONE Infusion Folic Acid 1 mg/ Sodium 50.2 mls @ 100.4 mls/hr 09/19/24 15:00 09/19/24 15:08 Chloride IV 09/19/24 15:29 Infused ONCE ONE Infusion Lorazepam 2 mg 09/19/24 13:27 09/19/24 13:37 Lorazepam 1 Mg Tablet PO 09/19/24 13:28 2 mg ONCE ONE Administration Ondansetron HCl 4 mg 09/19/24 17:54 09/19/24 18:10 Ondansetron Hcl 4 Mg/2 Ml Vial IVPUSH 09/19/24 17:55 4 mg ONCE ONE Administration Pantoprazole Sodium 80 mg 09/19/24 13:34 09/19/24 13:40 Pantoprazole Sodium 40 Mg/10 Ml Vial IVPUSH 09/19/24 13:35 80 mg ONCE ONE Administration Critical Care Time Critical Care Time Critical Care Time: Yes Total Critical Care Time: 40 Attestation: I have personally provided critical care time exclusive of time spent on separately billable procedures. Time includes review of lab data, radiology results, discussion with consultants, and monitoring for potential decompensation. Intervention performed as documented. Discharge Plan Discharge Clinical Impression: Alcohol use disorder, severe, dependence, Alcoholic gastritis, Hematemesis Patient Disposition: Home, Self-Care Instructions: Abuse of Alcohol (DC) Additional Instructions: Alcohol use disorder You were seen in the Emergency Department today for treatment of alcohol use disorder.? You were seen by our addiction medicine team and are declining detox at this time. If you would like to cut down or stop your alcohol use please consider calling our outpatient Addiction Treatment office:? [facility] ([id number] [id number]) [address] [place] [address] [address] ? You have also been given a list of treatment providers in the area that can assist as well.? If you experience seizures, vomiting blood, black stools, falls, severe headache, chest pain, fevers, trouble breathing, hallucinations or any other concerns you need to call 911 or seek immediate care. Please stay hydrated. Prescriptions: No Action fluoxetine 40 mg capsule 40 mg PO DAILY trazodone 50 mg tablet 50 mg PO BEDTIME thiamine HCl (vitamin B1) [Vitamin B-1] 100 mg Tablet 100 mg PO DAILY omeprazole 20 mg capsule,delayed release(DR/EC) 20 mg PO DAILY@0630 hydroxyzine HCl 50 mg tablet 50 mg PO BID Referrals: Physician,None [Primary Care Provider] - 2 days Print Language: Kiswahili
[2024-09-19] MEDS: Folic Acid 1 MG in 0.9 % Sodium Chloride 50 ML 100.4 MG IV (14:41)
[2024-09-19 14:46] LABS: Influenza A PCR NEGATIVE (Negative); Influenza B PCR NEGATIVE (Negative); Resp Syncy Virus RNA Qual PCR NEGATIVE (Negative); SARS COV2 PCR INHOUSE NEGATIVE (Negative)
[2024-09-19 14:59] LABS: Alanine Aminotransferase 36 U/L (0-40); Albumin Level 4.3 g/dL (3.5-5.0); Alkaline Phosphatase 59 U/L (39-117); Anion Gap 24 (12-20); Aspartate Amino Transferase 36 U/L (5-37); Bilirubin Direct 0.3 mg/dL (0.0-0.5); Bilirubin Total 1.3 mg/dL (0.0-1.0); Blood Urea Nitrogen 16 mg/dL (9-16); Calcium 8.5 mg/dL (8.4-10.2); Carbon Dioxide 14 mmol/L (22-29); Chloride 99 mmol/L (96-108); Creatinine Clr Calc Pharmacy 112.4; Estimated Glomerular Filt Rate > 60; Ethanol < 10 mg/dL; Glucose Random 178 mg/dL (60-115); Lipase 13 U/L (8-78); Magnesium 2.2 mg/dL (1.6-2.6); Potassium 4.4 mmol/L (3.3-5.1); Sodium 133 mmol/L (135-145)
[2024-09-19 15:40] LABS: OBS Int Ctl Valid YES; OBS1 POSITIVE (NEGATIVE)
[2024-09-19 15:56] LABS: Appearance Urine Clear; Color Urine Yellow; Glucose Urine UA Negative (Negative); Leukocyte Esterase Urine Negative (Negative); Nitrite Urine Negative (Negative); PH 5.5 (5.0-9.0); UMIC TRIGGER UACC YES; Urine Blood Negative (Negative); Urine Ketones >=160 mg/dL (Negative); Urine Protein 100 (2+) mg/dL (Neg-Trace)
[2024-09-19 16:00] VITALS: BP 129/78; PULSE 85; RESP 16; O2SAT 98
[2024-09-19 16:58] LABS: Bacteria Urine None Seen (None Seen); Hyaline Casts Urine 0-2 /LPF (0-2); RBC Urine 0-2 /HPF (0-2); Squamous Epithelial Cell Urine 0-2 /HPF (0-2); WBC Urine 0-5 /HPF (0-5)
[2024-09-19] MEDS: LORazepam 1 MG TABLET PO ×2 (17:48→22:28)
[2024-09-19] MEDS: ondansetron HCL 4 MG/2 ML VIAL IVPUSH (18:10)
[2024-09-19 18:14] VITALS: BP 148/85; PULSE 90; RESP 18; TEMP 36.7; O2SAT 98
[2024-09-19 19:33] VITALS: BP 147/81; PULSE 87; RESP 18; TEMP 36.8; O2SAT 97
[2024-09-19 20:45] LABS: Amphetamine Screen Urine Not Detected (Not Detect); Barbiturates, Urine Not Detected (Not Detect); Benzodiazepines Screen Urine Not Detected (Not Detect); Buprenorphine Scr Not Detected (Not Detect); Cannabinoid Screen Urine Not Detected (Not Detect); Cocaine Screen Urine Not Detected (Not Detect); Fentanyl, urine Not Detected (Not Detect); Methadone Screen, Urine Not Detected (Not Detect); Opiate Screen Urine Not Detected (Not Detect); Oxycodone Screen Urine Not Detected (Not Detect); Phencyclidine Screen Urine Not Detected (Not Detect)
--- NOTE | 2024-09-19 21:04 | PC.NURSE ---
This software writer assumed care of this Pt at 1930. Pt A&Ox3, denies any pain. Pt reports tolerating PO intake and ate sandwich. Pt requesting night meds, med rec complete, Pt able to verbalize home meds. Provider Kassy Quintana made aware.
[2024-09-19 22:27] VITALS: BP 131/84; PULSE 88; RESP 16; O2SAT 96
[2024-09-19] MEDS: traZODone HCL 50 MG TABLET PO (22:28)
[2024-09-19] MEDS: hydrOXYzine HCL 50 MG TABLET PO (22:28)
[2024-09-20 01:42] VITALS: BP 117/77; PULSE 56; RESP 20; O2SAT 95
[2024-09-20 06:02] VITALS: BP 128/80; PULSE 57; RESP 15; TEMP 36.6; O2SAT 99
[2024-09-20] MEDS: Omeprazole 20 MG CAPSULE.DR PO (07:20)
[2024-09-20 08:16] VITALS: BP 129/78; PULSE 82; RESP 18; TEMP 36.7; O2SAT 98
[2024-09-20] MEDS: LORazepam 1 MG TABLET PO (08:36)
[2024-09-20] MEDS: hydrOXYzine HCL 50 MG TABLET PO (08:37)
[2024-09-20] MEDS: FLUoxetine HCl 20 MG CAPSULE 40 MG PO (08:37)
[2024-09-20] MEDS: Thiamine HCL 100 MG TABLET PO (08:37)
--- NOTE | 2024-09-20 09:00 | PC.NURSE ---
Report received from ESTEVAN Franco. This RN assumes care of the patient at this time.
[2024-09-20 11:07] LABS: MANUAL DIFF FLAG NO
[2024-09-20 11:08] LABS: Basophils Percent Auto 0.7 % (0-2); Eosinophils Percent Auto 0.2 % (0-4); Hemoglobin 13.6 g/dl (14.0-18.0); Lymphocytes Percent Auto 25.1 % (20-40); Mean Corpuscular HGB Conc 35.8 g/dl (31.0-36.0); Mean Corpuscular Hemoglobin 29.6 pg (27.0-33.0); Mean Corpuscular Volume 82.8 fL (80.0-98.0); Mean Platelet Volume 9.1 fL (9.4-12.4); Monocytes Absolute Auto 0.8 X10*3/uL (0.1-1.2); Monocytes Percent Auto 18.3 % (2-11); Neutrophils Absolute Auto 2.3 x10*3/uL (2.0-8.3); Neutrophils Percent Auto 55.7 % (45-73); Platelet Count 152 X10*3/uL (160-400); Red Blood Count 4.59 X10*6/uL (4.60-5.80); Red Cell Distribution Width 13.5 % (11.0-16.0); White Blood Count 4.1 X10*3/uL (4.8-10.8)
[2024-09-20 11:32] LABS: Alanine Aminotransferase 36 U/L (0-40); Albumin Level 4.5 g/dL (3.5-5.0); Alkaline Phosphatase 59 U/L (39-117); Anion Gap 14 (12-20); Aspartate Amino Transferase 43 U/L (5-37); Blood Urea Nitrogen 15 mg/dL (9-16); Calcium 9.2 mg/dL (8.4-10.2); Carbon Dioxide 24 mmol/L (22-29); Chloride 101 mmol/L (96-108); Creatinine Clr Calc Pharmacy 120.1; Estimated Glomerular Filt Rate > 60; Glucose Random 138 mg/dL (60-115); Potassium 3.5 mmol/L (3.3-5.1); Sodium 135 mmol/L (135-145); Total Protein 7.3 g/dL (6.5-8.0)
--- NOTE | 2024-09-20 12:31 | PC.NURSE ---
This Rn resumed care of patient at 1130, DC was placed. This Rn went in to room to grab vitals and DC, all questions answered. IV removed, pt able to ambulate out of ED independently.
[2024-09-20 12:32] VITALS: BP 135/88; PULSE 85; RESP 20; TEMP 37.2; O2SAT 99
== END 2024-09-20 12:34 | disposition home or self-care (01) ==
PROVIDERS: Physician Assistant; Emergency Provider Emergency Medicine
DX: F10.20 Alcohol dependence, uncomplicated (principal); Y90.0 Blood alcohol level of less than 20 mg/100 ml; K29.20 Alcoholic gastritis without bleeding; K92.0 Hematemesis; Z79.899 Other long term (current) drug therapy; Z51.81 Encounter for therapeutic drug level monitoring; Z03.818 Encounter for observation for suspected exposure to other biological agents ruled out
CPT/HCPCS: 0241U; 36415; 80048; 80053; 80076; 80307; 81001; 81003; 82272; 83690; 83735; 85025; 93005; 96361; 96365; 96375; 99285; J1808; J2405; J2470; J3411; S9485

== ENCOUNTER → 2024-09-19 13:27 | Outpatient (BNV) | payer OTHER, SELFPAY | PROVIDERS: Emergency Provider Emergency Medicine; Visit Provider Internal Medicine | DX: Z13.6 Encounter for screening for cardiovascular disorders (principal) | CPT/HCPCS: 93010 ==

== ENCOUNTER 2024-09-30 11:15 | Emergency (ER) | payer OTHER, SELFPAY ==
--- NOTE | 2024-09-30 11:19 | ECG_ITS ---
Test Reason : QTC Blood Pressure : */* mmHG Vent. Rate : 104 BPM Atrial Rate : 104 BPM P-R Int : 156 ms QRS Dur : 80 ms QT Int : 350 ms P-R-T Axes : 27 5 20 degrees QTcB Int : 460 ms Sinus tachycardia Otherwise normal ECG When compared with ECG of 19-Sep-2024 14:27, No significant change was found Referred By: Camila Hoffman Electronically Signed By: Librado Chanel
[2024-09-30 11:24] VITALS: BP 150/110; BP 153/124; PULSE 100; PULSE 106; RESP 16; TEMP 36.9; O2SAT 98; BMI 27.0
--- NOTE | 2024-09-30 11:24 | ED_ITS ---
HPI - Alcohol General Chief Complaint: ETOH/Substance Use Stated Complaint: ETOH Source: patient Mode of arrival: EMS Limitations: no limitations History of Present Illness ED Provider: IVETH BOLES narrative: 38 year old male with PMHx of alcohol use disorder, HTN, alcohol withdrawal syndrome presents to the ED by EMS due to alcohol use. Patient states he had been drinking moderately but drinking has increased since Monday 09/25 where he has been drinking a 30 pack of beer per day being brought to him by door dash. He reports he had been at [facility] approximately 1 month ago where he completed detox and had been receiving vivitrol shot. He states last shot was when he left the facility. He states he would like to participate in detox at this time prompting him to seek care today. He denies chest pain, SOB, nausea, bloody/bilious emesis, black/tarry stool, AMS, visual/auditory/tactile hallucinations. MD complaint: alcohol intoxication Last drink: Just prior to admission Amount of alcohol consumed: Patient is unsure how many beers he has consumed today but knows his last drink was right before calling EMS Chronic alcohol use: Yes Previous visits for alcohol intoxication: Yes Recent trauma: No Associated symptoms: denies other symptoms Treatments prior to arrival: none Related Data Home Medications ?Medication ?Instructions ?Recorded ?Confirmed fluoxetine 40 mg capsule 40 mg PO DAILY 08/09/24 09/19/24 omeprazole 20 mg capsule,delayed 20 mg PO DAILY@0630 08/09/24 09/19/24 release thiamine HCl (vitamin B1) 100 mg 100 mg PO DAILY 08/09/24 09/19/24 tablet (Vitamin B-1) trazodone 50 mg tablet 50 mg PO BEDTIME 08/09/24 09/19/24 hydroxyzine HCl 50 mg tablet 50 mg PO BID 09/19/24 09/19/24 Previous Rx's ?Medication ?Instructions ?Recorded chlordiazepoxide HCl 25 mg capsule 50 mg (2 x 25 mg) PO Q2-4H PRN 09/30/24 alcohol withdrawal 6 doses #12 caps Allergies Allergy/AdvReac Type Severity Reaction Status Date / Time No Known Allergies Allergy Unknown UNKNOWN Verified 09/30/24 11:27 [NO KNOWN ALLERGIES] Review of Systems 2 Review of Systems: Constitutional : No Fever, No Chills ENT/Mouth : No Ear Pain, No Nasal Congestion, No sore throat Eyes: No Eye Pain, No Swelling, No Redness Cardiovascular : No Chest Pain, No SOB Respiratory : No Cough, No Sputum, No Dyspnea Gastrointestinal : No Nausea, No Vomiting, No Diarrhea, No Hematochezia, No Melena Genitourinary : No Dysuria, No Urinary Frequency, No Hematuria Musculoskeletal : No Myalgias Skin : No Skin Lesions, No rash Neuro : No Weakness, No Numbness, No Paresthesias, No Dizziness, No Headache Psych : positive Anxiety, positive Depression, no SI/HI Heme/Lymph: No Lymphadenopathy Endocrine : No Polyuria, No Polydipsia All other systems reviewed and are negative [facility] Past Medical History Attestation statement: The following information was validated with the patient. Source: old records reviewed and nursing notes reviewed Medical History Alcohol abuse Deep vein thrombosis, upper right extremity Alcohol use disorder, severe, dependence Alcohol abuse Elevated LFTs Recurrent major depression-severe Alcohol withdrawal syndrome Hypertension Anxiety and depression Psychiatric disturbance Family History Family History Other Lung cancer Social History Social History Household Members: Family Housing: House Do you presently have visiting nurse or other home services: No Alcohol intake: current Alcohol intake frequency: 3 or more drinks per day Alcohol type: hard liquor Comment: patient refusing alarms Patient Tobacco Use Status: Never used Tobacco e-Cigarette/Vaping Use: Never Used Second Hand Smoke Exposure: No Substance Use Type: Marijuana Advance Directives: Yes Advance Directives on File: Yes Advance Directives Date on File: 01/08/21 service: No Current occupational status: unemployed Sexual orientation: Straight/Heterosexual Physical Exam ED Vital Signs: Vital Signs - 24 hr 09/30/24 11:24 09/30/24 14:06 Temperature 98.5 F Pulse Rate 106 H 102 H Respiratory Rate 16 12 Blood Pressure 153/124 H 140/89 H Pulse Oximetry 98 95 Oxygen Delivery Method Room Air Room Air BMI result Body Mass Index 27.0 Appearance: Alert. Oriented X3. Patient is currently intoxicated with ETOH with mild alcoholic facial plethora. Eyes: Pupils equal, round and reactive to light. ENT: Pharynx normal. Neck: Normal inspection. Neck supple. CVS: tachycardic heart rate and normal rhythm. Pulses normal. Respiratory: No respiratory distress. Breath sounds normal. Abdomen: Soft and nontender. Skin: Skin warm and dry. Normal skin color. Normal skin turgor. Extremities: No lower extremity edema. No calf ttp Neuro: Oriented X 3. No motor deficit. No sensory deficit. CN2-12 intact Course Reevaluation(s) Reevaluation #1: Labs reveal mildly elevated LFT's 84/113 from chronic alcohol use, otherwise unremarkable. UA unremarkable. UA drug screen is negative for all substances. ETOH level is 238. Currently awaiting evaluation from CARE team for detox needs Time: 12:21 Medical Decision Making Medical Decision Making [facility] Narrative: 38 year old male with PMHx of alcohol use disorder, HTN, alcohol withdrawal syndrome presents to the ED by EMS due to alcohol use. Has been drinking 30 pack of beer per day since Thursday (09/23), last drink was right before calling EMS but patient cannot recall how much he had to drink today. Would like assistance with detox at this time. Will obtain labs, magnesium, lipase, and UA drug screen. EKG shows tachycardia but no ST elevations/depressions or T wave abnormalites. Will start IV fluids, PO ativan, thiamine, and magnesium repletion. Differential Diagnosis Differential Diagnoses: The differential diagnosis associated with the presentation includes ETOH intoxication, ETOH withdrawal, lyte abnormality, pancreatitis Admission/Observation Consideration of admission/observation: Escalation of care including admission/observation considered stable for DC no signs of withdrawal doing well will follow up in [facility] on librium Consult Healthcare Provider Management of the patient was discussed with: Road Machine Operator Lab Data [facility] Lab Attestation statement: I reviewed the patient's lab results. 09/30/24 11:38 09/30/24 11:38 Labs: Lab Results 09/30/24 09/30/24 Range/Units 11:38 11:39 WBC 3.3 L (4.8-10.8) X10*3/uL RBC 5.53 D (4.60-5.80) X10*6/uL Hgb 16.3 (14.0-18.0) g/dl Hct 46.5 D (42.0-52.0) % MCV 84.1 (80.0-98.0) fL MCH 29.5 (27.0-33.0) pg MCHC 35.1 (31.0-36.0) g/dl RDW 13.4 (11.0-16.0) % Plt Count 238 D (160-400) X10*3/uL MPV 8.9 L (9.4-12.4) fL Immature Gran % (Auto) 0.0 (0.0-0.4) % Neut % (Auto) 33.5 L (45-73) % Lymph % (Auto) 46.5 H (20-40) % [place] % (Auto) 18.5 H (2-11) % Eos % (Auto) 0.3 (0-4) % Baso % (Auto) 1.2 (0-2) % Lymph # (Auto) 1.5 (1.2-4.9) X10*3/uL [place] # (Auto) 0.6 (0.1-1.2) X10*3/uL Eos # (Auto) 0.0 (0.0-0.4) X10*3/uL Baso # (Auto) 0.0 (0.0-0.2) X10*3/uL Abs Immat Gran (auto) 0.00 (0.00-0.03) X10*3/uL Absolute Neuts (auto) 1.1 L (2.0-8.3) x10*3/uL Absolute Nucleated RBC 0.000 (0.0-0.012) X10*3/uL Nucleated RBC % (auto) 0.0 (0.0-0.2) /100WBC Sodium 139 (135-145) mmol/L Potassium 4.2 (3.3-5.1) mmol/L Chloride 102 (96-108) mmol/L Carbon Dioxide 24 (22-29) mmol/L Anion Gap 17 (12-20) BUN 7 L (9-16) mg/dL Creatinine 0.87 (0.5-1.4) mg/dL Estim Creat Clear Calc 111.3 Estimated GFR > 60 Random Glucose 108 (60-115) mg/dL Calcium 9.6 (8.4-10.2) mg/dL Magnesium 2.4 (1.6-2.6) mg/dL Total Bilirubin 0.4 (0.0-1.0) mg/dL Direct Bilirubin 0.1 (0.0-0.5) mg/dL AST 84 H (5-37) U/L ALT 113 H (0-40) U/L Alkaline Phosphatase 64 (39-117) U/L Total Protein 8.5 H (6.5-8.0) g/dL Albumin 5.0 (3.5-5.0) g/dL Lipase 21 (8-78) U/L Urine Opiates Screen Not Detected (Not Detect) Ur Buprenorphine Scrn Not Detected (Not Detect) ng/mL Ur Oxycodone Screen Not Detected (Not Detect) ng/mL Urine Methadone Screen Not Detected (Not Detect) ng/mL Urine Fentanyl Screen Not Detected (Not Detect) Ur Barbiturates Screen Not Detected (Not Detect) Ur Phencyclidine Scrn Not Detected (Not Detect) Ur Amphetamines Screen Not Detected (Not Detect) U Benzodiazepines Scrn Not Detected (Not Detect) Urine Cocaine Screen Not Detected (Not Detect) U Marijuana (THC) Screen Not Detected (Not Detect) Ethyl Alcohol 238 mg/dL Independent Interpretation I performed an independent interpretation of an: EKG Interpretation: Rate: 104 Rhythm: sinus tach [place]: normal Normal P waves. Normal GET. Normal QRS complex. ST T wave : normal no [place] qTC: 460 prior studies: no acute ischemia The study has been interpreted contemporaneously by me. . Radiology Impression Discussion of test interpretation with radiology: I have reviewed the radiologist's reading. Independent Historian Clinical information obtained from an independent historian. History obtained from or confirmed by: EMS External Record Review External record reviewed: Inpatient record and Outpatient record Prescription Management I considered prescription management with: Other Medications Administered Discontinued Medications Generic Name Dose Route Start Last Admin Trade Name Mikhailq PRN Reason Stop Dose Admin Diazepam 2.5 mg 09/30/24 11:18 09/30/24 11:45 Diazepam 10 Mg/2 Ml Cartridge IVPUSH 09/30/24 11:19 2.5 mg STAT STA Administration Magnesium Sulfate 2 gm in 50 mls @ 25 mls/hr 09/30/24 11:18 09/30/24 14:21 Magnesium Sulfate/H2o IV 09/30/24 13:17 Infused ONCE ONE Infusion Thiamine HCl 200 mg/ Sodium 102 mls @ 204 mls/hr 09/30/24 11:18 09/30/24 12:19 Chloride IV 09/30/24 11:47 Infused ONCE ONE Infusion Lactated Ringer's 1,000 mls @ 999 mls/hr 09/30/24 11:18 09/30/24 13:15 Lr IV 09/30/24 12:18 Infused .Q1H1M ONE Infusion Lorazepam 2 mg 09/30/24 11:41 09/30/24 11:59 Lorazepam 1 Mg Tablet PO 09/30/24 11:42 2 mg ONCE ONE Administration Critical Care Time Critical Care Time Critical Care Time: Yes Total Critical Care Time: 35 Attestation: IV magnesium, IV valium, medical consult, review of records I attest to this time spent taking care of the patient Discharge Plan Discharge Clinical Impression: Alcohol use disorder, severe, dependence Patient Disposition: Home, Self-Care Instructions: Alcohol Use Disorder (ED) Additional Instructions: Alcohol use disorder You were seen in the Emergency Department today for treatment of alcohol use disorder.? You may have been given medications to help with your withdrawal symptoms.? Please do not drink alcohol with them. This is very dangerous and can cause respiratory depression or other adverse reactions depending on the medication. If you would like to cut down or stop your alcohol use please consider calling our outpatient Addiction Treatment office:? [facility] (M-F [id number]) [address] [place] [address] ? You have also been given a list of treatment providers in the area that can assist as well.? If you experience seizures, vomiting blood, black stools, falls, severe headache, chest pain, fevers, trouble breathing, hallucinations or any other concerns you need to call 911 or seek immediate care. Please stay hydrated. Prescriptions: New chlordiazepoxide HCl 25 mg capsule 50 mg PO Q2-4H PRN (Reason: alcohol withdrawal) Qty: 12 0RF Rx Instructions: until symptoms controlled No Action fluoxetine 40 mg capsule 40 mg PO DAILY trazodone 50 mg tablet 50 mg PO BEDTIME thiamine HCl (vitamin B1) [Vitamin B-1] 100 mg Tablet 100 mg PO DAILY omeprazole 20 mg capsule,delayed release(DR/EC) 20 mg PO DAILY@0630 hydroxyzine HCl 50 mg tablet 50 mg PO BID Print Language: Burundian
--- NOTE | 2024-09-30 11:29 | PC.NURSE ---
pt from home looking for help with AUD. 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 mostly beer. aox4, calm and cooperative. reports hx of withdrawal - no hx of seizure.
[2024-09-30] MEDS: Lactated Ringers 1,000 ML 999 ML IV (11:43)
[2024-09-30 11:44] LABS: MANUAL DIFF FLAG NO
[2024-09-30 11:45] LABS: Basophils Percent Auto 1.2 % (0-2); Eosinophils Percent Auto 0.3 % (0-4); Hematocrit 46.5 % (42.0-52.0); Hemoglobin 16.3 g/dl (14.0-18.0); Lymphocytes Absolute Auto 1.5 X10*3/uL (1.2-4.9); Lymphocytes Percent Auto 46.5 % (20-40); Mean Corpuscular HGB Conc 35.1 g/dl (31.0-36.0); Mean Corpuscular Hemoglobin 29.5 pg (27.0-33.0); Mean Corpuscular Volume 84.1 fL (80.0-98.0); Mean Platelet Volume 8.9 fL (9.4-12.4); Monocytes Absolute Auto 0.6 X10*3/uL (0.1-1.2); Monocytes Percent Auto 18.5 % (2-11); Neutrophils Absolute Auto 1.1 x10*3/uL (2.0-8.3); Neutrophils Percent Auto 33.5 % (45-73); Platelet Count 238 X10*3/uL (160-400); Red Blood Count 5.53 X10*6/uL (4.60-5.80); Red Cell Distribution Width 13.4 % (11.0-16.0); White Blood Count 3.3 X10*3/uL (4.8-10.8)
[2024-09-30] MEDS: diazePAM 10 MG/2 ML CARTRIDGE 2.5 MG IVPUSH (11:45)
[2024-09-30] MEDS: Thiamine HCL 200 MG in 0.9 % Sodium Chloride 100 ML 204 MG IV (11:48)
[2024-09-30 11:57] LABS: Amphetamine Screen Urine Not Detected (Not Detect); Barbiturates, Urine Not Detected (Not Detect); Benzodiazepines Screen Urine Not Detected (Not Detect); Buprenorphine Scr Not Detected (Not Detect); Cannabinoid Screen Urine Not Detected (Not Detect); Cocaine Screen Urine Not Detected (Not Detect); Fentanyl, urine Not Detected (Not Detect); Methadone Screen, Urine Not Detected (Not Detect); Opiate Screen Urine Not Detected (Not Detect); Oxycodone Screen Urine Not Detected (Not Detect); Phencyclidine Screen Urine Not Detected (Not Detect)
[2024-09-30 11:58] LABS: Ethanol 238 mg/dL
[2024-09-30] MEDS: LORazepam 1 MG TABLET 2 MG PO (11:59)
[2024-09-30 12:01] LABS: Alanine Aminotransferase 113 U/L (0-40); Alkaline Phosphatase 64 U/L (39-117); Anion Gap 17 (12-20); Aspartate Amino Transferase 84 U/L (5-37); Bilirubin Direct 0.1 mg/dL (0.0-0.5); Bilirubin Total 0.4 mg/dL (0.0-1.0); Blood Urea Nitrogen 7 mg/dL (9-16); Calcium 9.6 mg/dL (8.4-10.2); Carbon Dioxide 24 mmol/L (22-29); Chloride 102 mmol/L (96-108); Creatinine Clr Calc Pharmacy 111.3; Estimated Glomerular Filt Rate > 60; Glucose Random 108 mg/dL (60-115); Lipase 21 U/L (8-78); Magnesium 2.4 mg/dL (1.6-2.6); Potassium 4.2 mmol/L (3.3-5.1); Sodium 139 mmol/L (135-145); Total Protein 8.5 g/dL (6.5-8.0)
[2024-09-30] MEDS: Magnesium Sulfate/H2O 2 GM/50 ML PIGGYBACK IV (12:19)
--- OUTSIDE RECORDS SUMMARY | 2024-09-30 12:50 | XMS_ITS | Clinical Summary ---
Author Organization [employer] Address [address] [place] [address] Care Team Providers Care Geriatric Nursing Assistant Name Role Phone Rory Pham MD Primary Care Prov ider Encounters Date Type Department Care Team Description 09/06/2024 Telephone [facility] [address] [place], [place] [phone] Joy Gonzalez MD Discharged from [facility] (Patient calling to establish care with Dr. Gonzalez. Just discharged from [facility]. Needs a primary care to go over and prescribe meds. Patient was discharged on [id number]. No new patient appointments until in middle September for Dr. Gonzalez.) from Last 3 Months Social History Tobacco Use Types Packs/Day Years [...] patient's age to complete this topic Insurance [facility] Care Teams Geriatric Nursing Assistant Relationship Specialty Start Date End Date OlivierRory Ruth MD [address] [place] [id number] PCP - General Internal Medicine 12/29/23
[2024-09-30 14:06] VITALS: BP 140/89; PULSE 102; RESP 12; O2SAT 95
--- NOTE | 2024-09-30 15:03 | PC.NURSE ---
pt does not have a ride available until after 8pm. shuttle service does not go to [place]. Reached out to care team to see if they can assist
--- NOTE | 2024-09-30 15:23 | HO.ADDICT_ITS ---
History of Present Illness Date of Service: 09/30/2024 Chief Complaint: ETOH Reason for Consult: AUD Discussed with referring provider: Yes Sources of Information: patient interviewed and chart reviewed HPI Narrative: Patient is a 38 year old male with history of severe AUD, who presented to ED requesting assistance with ATS admission. Patient is well known to this database report writer via [facility] and outpatient treatment for AUD at [facility]. Patient seen in room 10 of main ED. He is awake, alert, engaged in interview. He reports drinking approx 30 beers daily for the last several days. At triage, he requested assistance with ATS admission, however when seen by this database report writer he state=d he was unsure of what he wanted. States he was at [facility] for 3 weeks and received vivitrol injection while there, but did not engage with any recovery supports once home. He states that he doesn't think returning to ATS is a good idea right now, and would like to return to vivitrol at the [facility]. CIWA scores low while here, Diazepam administered shortly after arrival Inquired with patient if family is aware that he is here, he replied yes. they don't really know what to do for me anymore . He was last in ED on 09/19 for alcohol use as well, and discharged home per his request. Past Psychiatric History: IP: [facility] 2020 x 2 OP: No current providers Trials: Prozac Review of Systems Constitutional: Reports as per HPI Gastrointestinal: Denies loose stools, Denies nausea and Denies vomiting Psychiatric: Reports anxiety Diagnostics Vital Signs (24Hr): Vital Signs - 24 hr 09/30/24 11:24 09/30/24 14:06 Temperature 98.5 F Pulse Rate 106 H 102 H Respiratory Rate 16 12 Blood Pressure 153/124 H 140/89 H Pulse Oximetry 98 95 Oxygen Delivery Method Room Air Room Air BMI result Body Mass Index 27.0 Labs 09/30/24 11:38 09/30/24 11:38 Labs: Laboratory Results - last 48 hr 09/30/24 09/30/24 11:38 11:39 WBC 3.3 L RBC 5.53 D Hgb 16.3 Hct 46.5 D MCV 84.1 MCH 29.5 MCHC 35.1 RDW 13.4 Plt Count 238 D MPV 8.9 L Immature Gran % (Auto) 0.0 Neut % (Auto) 33.5 L Lymph % (Auto) 46.5 H [place] % (Auto) 18.5 H Eos % (Auto) 0.3 Baso % (Auto) 1.2 Lymph # (Auto) 1.5 [place] # (Auto) 0.6 Eos # (Auto) 0.0 Baso # (Auto) 0.0 Abs Immat Gran (auto) 0.00 Absolute Neuts (auto) 1.1 L Absolute Nucleated RBC 0.000 Nucleated RBC % (auto) 0.0 Sodium 139 Potassium 4.2 Chloride 102 Carbon Dioxide 24 Anion Gap 17 BUN 7 L Creatinine 0.87 Estim Creat Clear Calc 111.3 Estimated GFR > 60 Random Glucose 108 Calcium 9.6 Magnesium 2.4 Total Bilirubin 0.4 Direct Bilirubin 0.1 AST 84 H ALT 113 H Alkaline Phosphatase 64 Total Protein 8.5 H Albumin 5.0 Lipase 21 Urine Opiates Screen Not Detected Ur Buprenorphine Scrn Not Detected Ur Oxycodone Screen Not Detected Urine Methadone Screen Not Detected Urine Fentanyl Screen Not Detected Ur Barbiturates Screen Not Detected Ur Phencyclidine Scrn Not Detected Ur Amphetamines Screen Not Detected U Benzodiazepines Scrn Not Detected Urine Cocaine Screen Not Detected U Marijuana (THC) Screen Not Detected Ethyl Alcohol 238 Mental Status Exam Mental Status Exam Level of Consciousness: Awake and Alert Patient Behavior: Talkative Affect Description: Calm Speech Pattern: Clear and Appropriate Hallucinations: None Judgement: Fair Medications Allergies Allergies Allergy/AdvReac Type Severity Reaction Status Date / Time No Known Allergies Allergy Unknown UNKNOWN Verified 09/30/24 11:27 [NO KNOWN ALLERGIES] Assessment & Plan Assessment & Plan (1) Alcohol use disorder, severe, dependence: Status: Acute Code(s): F10.20 - Alcohol dependence, uncomplicated Assessment and Plan: * will refer back to [facility] for follow up outpatient * declines referral/admission to ATS for alcohol withdrawal management and treatment of AUD * has naltrexone at home he would like to resume Total time managing care of this patient today ____30 minutes. [facility] Past Medical History Medical History Alcohol abuse Deep vein thrombosis, upper right extremity Alcohol use disorder, severe, dependence Alcohol abuse Elevated LFTs Recurrent major depression-severe Alcohol withdrawal syndrome Hypertension Anxiety and depression Psychiatric disturbance Family History Family History Other Lung cancer Social History Social History Household Members: Family Housing: House Do you presently have visiting nurse or other home services: No Alcohol intake: current Alcohol intake frequency: 3 or more drinks per day Alcohol type: hard liquor Comment: patient refusing alarms Patient Tobacco Use Status: Never used Tobacco e-Cigarette/Vaping Use: Never Used Second Hand Smoke Exposure: No Substance Use Type: Marijuana Advance Directives: Yes Advance Directives on File: Yes Advance Directives Date on File: 01/08/21 service: No Current occupational status: unemployed Sexual orientation: Straight/Heterosexual
[2024-09-30] MEDS: chlordiazePOXIDE HCl 25 MG CAPSULE 75 MG PO (16:07)
--- NOTE | 2024-09-30 17:02 | PC.NURSE ---
pt steady with ambulation. given DC instructions. States he feels better and is ready to follow up out pt
[2024-09-30 17:03] VITALS: BP 145/90; PULSE 102; RESP 18; TEMP 37.1; O2SAT 98
== END 2024-09-30 17:04 | disposition home or self-care (01) ==
PROVIDERS: Emergency Provider Emergency Medicine
DX: F10.129 Alcohol abuse with intoxication, unspecified (principal); Y90.7 Blood alcohol level of 200-239 mg/100 ml; I10 Essential (primary) hypertension
CPT/HCPCS: 36415; 80048; 80076; 80307; 83690; 83735; 85025; 93005; 96361; 96374; 96375; 99284; J3360; J3411; J3475; J7120

== ENCOUNTER → 2024-09-30 11:19 | Outpatient (BNV) | payer OTHER, SELFPAY | PROVIDERS: Emergency Provider Emergency Medicine; Visit Provider Internal Medicine Cardiovascular Disease | DX: R00.0 Tachycardia, unspecified (principal) | CPT/HCPCS: 93010 ==

== ENCOUNTER → 2024-09-30 12:02 | Outpatient (BNV) | payer OTHER, SELFPAY | PROVIDERS: Emergency Provider Emergency Medicine; Visit Provider Nurse Practitioner Psychiatric/Mental Health | DX: F10.20 Alcohol dependence, uncomplicated (principal) | CPT/HCPCS: 99282 ==

== ENCOUNTER 2024-10-27 20:30 | Inpatient (IN) | payer OTHER, SELFPAY ==
--- NOTE | 2024-10-27 | ECG_ITS ---
Test Reason : ETOH WITHDRAWAL Blood Pressure : */* mmHG Vent. Rate : 103 BPM Atrial Rate : 103 BPM P-R Int : 160 ms QRS Dur : 84 ms QT Int : 354 ms P-R-T Axes : 16 -10 16 degrees QTcB Int : 463 ms Sinus tachycardia Minimal voltage criteria for LVH, may be normal variant ( R in aVL ) Cannot rule out Anterior infarct , age undetermined Abnormal ECG When compared with ECG of 30-Sep-2024 11:24, No significant change was found Referred By: Generic ED Physician Electronically Signed By: ZEE BARRETT MD
[2024-10-27 20:44] VITALS: BP 159/128; BP 180/120; PULSE 107; PULSE 120; RESP 18; TEMP 36.3; O2SAT 96; BMI 27.4
--- NOTE | 2024-10-27 20:59 | PC.NURSE ---
pt biba from home, a&ox4, respirations even and unlabored. pt reports etoh use x2 weeks, reports he relapsed and has been binge drinking. pt states he drinks liquor, wine, seltzers and beers. pt reports he has been recently in rehab and would like to go back. pt given zofran by ems. charge histotechnologist aware of tachycardia and hypertension, pt remains in [place] and on monitor. pt searched by security at this time. pt denies si/hi
[2024-10-27 21:27] LABS: Ethanol 317 mg/dL
[2024-10-27 21:29] LABS: Alanine Aminotransferase 111 U/L (0-40); Albumin Level 4.9 g/dL (3.5-5.0); Alkaline Phosphatase 64 U/L (39-117); Anion Gap 20 (12-20); Aspartate Amino Transferase 79 U/L (5-37); Bilirubin Total 0.5 mg/dL (0.0-1.0); Blood Urea Nitrogen 14 mg/dL (9-16); Calcium 9.6 mg/dL (8.4-10.2); Carbon Dioxide 23 mmol/L (22-29); Chloride 100 mmol/L (96-108); Creatinine Clr Calc Pharmacy 108.8; Estimated Glomerular Filt Rate > 60; Glucose Random 95 mg/dL (60-115); Lipase 31 U/L (8-78); Magnesium 2.4 mg/dL (1.6-2.6); Potassium 3.6 mmol/L (3.3-5.1); Sodium 139 mmol/L (135-145); Total Protein 8.4 g/dL (6.5-8.0)
[2024-10-27 21:37] LABS: Troponin-I High Sensitivity < 2.7 ng/L (<3.5-35.0)
[2024-10-27 21:39] LABS: Hematocrit 43.2 % (42.0-52.0); Hemoglobin 15.9 g/dl (14.0-18.0); Imm Gran Abs Auto 0.01 X10*3/uL (0.00-0.03); Imm Gran Pct Auto 0.3 % (0.0-0.4); Lymphocytes Absolute Auto 1.6 X10*3/uL (1.2-4.9); Lymphocytes Percent Auto 51.1 % (20-40); MANUAL DIFF FLAG SCAN; Mean Corpuscular HGB Conc 36.8 g/dl (31.0-36.0); Mean Corpuscular Hemoglobin 29.8 pg (27.0-33.0); Mean Corpuscular Volume 81.1 fL (80.0-98.0); Mean Platelet Volume 8.6 fL (9.4-12.4); Monocytes Absolute Auto 0.6 X10*3/uL (0.1-1.2); Monocytes Percent Auto 19.9 % (2-11); Neutrophils Absolute Auto 0.9 x10*3/uL (2.0-8.3); Neutrophils Percent Auto 27.7 % (45-73); Platelet Count 236 X10*3/uL (160-400); Red Blood Count 5.33 X10*6/uL (4.60-5.80); Red Cell Distribution Width 13.2 % (11.0-16.0); SCAN SMEAR FLAG 1; White Blood Count 3.1 X10*3/uL (4.8-10.8)
[2024-10-27 22:03] LABS: SLIDE REVIEW VERIFIED
--- NOTE | 2024-10-27 22:09 | ED.ALCOHOL ---
HPI - Alcohol General Chief Complaint: ETOH/Substance Use Stated Complaint: etoh Time Seen by Provider: 10/27/24 21:04 Source: patient and EMS Mode of arrival: EMS Limitations: no limitations History of Present Illness ED Provider: Dr. Jessie Adams HPI narrative: Patient comes to the emergency room complaining of alcohol withdrawal. Patient states that he has tried multiple times to stop drinking alcohol. Patient states that he keeps trying as hard as he can but he is just not successful. Patient states that he binge drinks, this time 4 days in a row. Patient states that today he tried to decrease his level of alcohol, drank 1 more drink before coming to emergency room. However, patient states that he is starting to feels that he is withdrawing. Patient complaining of abdominal pain, nausea vomiting, feeling jittery, states that he feels very uncomfortable. To patient's knowledge, he has never had any seizures. Patient denies SI or HI. Related Data Home Medications ?Medication ?Instructions ?Recorded ?Confirmed fluoxetine 40 mg capsule 40 mg PO DAILY 08/09/24 09/19/24 omeprazole 20 mg capsule,delayed 20 mg PO DAILY@0630 08/09/24 09/19/24 release thiamine HCl (vitamin B1) 100 mg 100 mg PO DAILY 08/09/24 09/19/24 tablet (Vitamin B-1) trazodone 50 mg tablet 50 mg PO BEDTIME 08/09/24 09/19/24 hydroxyzine HCl 50 mg tablet 50 mg PO BID 09/19/24 09/19/24 Previous Rx's ?Medication ?Instructions ?Recorded chlordiazepoxide HCl 25 mg capsule 50 mg (2 x 25 mg) PO Q4H PRN 09/30/24 alcohol withdrawal 6 doses #12 caps Allergies Allergy/AdvReac Type Severity Reaction Status Date / Time No Known Allergies Allergy Unknown UNKNOWN Verified 10/27/24 20:51 [NO KNOWN ALLERGIES] Review of Systems Review of Systems: Constitutional : No Weight loss, No Fever, No Chills, No Night Sweats, No Fatigue, Complaining of feeling that he is starting to withdrawal from alcohol ENT/Mouth : No Hearing loss, No Ear Pain, No Nasal Congestion, No Sinus Pain, No Hoarseness, No sore throat, No Rhinorrhea, No Swallowing Difficulty Eyes: No Eye Pain, No Swelling, No Redness, No Foreign Body, No Discharge, No Vision Changes Cardiovascular : No Chest Pain, No SOB, No Dyspnea on Exertion, No Orthopnea, No Edema, No Palpitations Respiratory : No Cough, No Sputum, No Wheezing, No Smoke Exposure, No Dyspnea Gastrointestinal : No Nausea, No Vomiting, No Diarrhea, No Constipation, No abdominal Pain, No Hematochezia, No Melena Genitourinary : no irregular bleeding, No Dysuria, No Urinary Frequency, No Hematuria, No Urinary Incontinence, No Urgency, No Flank Pain, No Urinary Flow Changes, No Hesitancy Musculoskeletal : No joint pain, No Myalgias, No Joint Swelling Skin : No Skin Lesions, No rash Neuro : No Weakness, No Numbness, No Paresthesias, no seizures, complaining of feeling very jittery Psych : No Anxiety/Panic, No Depression, No SI/HI/AH/VH, admits to alcohol abuse and dependence Heme/Lymph: No Bruising, No Bleeding,No Lymphadenopathy Endocrine : No Polyuria, No Polydipsia, No Temperature Intolerance PMFSH Past Medical History Medical History Alcohol abuse Deep vein thrombosis, upper right extremity Alcohol use disorder, severe, dependence Alcohol abuse Elevated LFTs Recurrent major depression-severe Alcohol withdrawal syndrome Hypertension Anxiety and depression Psychiatric disturbance Family History Family History Other Lung cancer Social History Social History Household Members: Family Housing: House Do you presently have visiting nurse or other home services: No Alcohol intake: current Alcohol intake frequency: 3 or more drinks per day Alcohol type: beer, wine and hard liquor Comment: patient refusing alarms Patient Tobacco Use Status: Never used Tobacco Smoked in Last 30 Days: No e-Cigarette/Vaping Use: Never Used Second Hand Smoke Exposure: No Use of substances other than those prescribed or required for medical reasons: No Substance Use Type: Marijuana Advance Directives: Yes Advance Directives on File: Yes Advance Directives Date on File: 01/08/21 service: No Current occupational status: unemployed Sexual orientation: Straight/Heterosexual Physical Exam ED Vital Signs: Vital Signs - 24 hr 10/27/24 20:44 Temperature 97.3 F Pulse Rate 107 H Respiratory Rate 18 Blood Pressure 159/128 H Pulse Oximetry 96 Oxygen Delivery Method Room Air BMI result Body Mass Index 27.4 Const Other: Appearance: Alert. Oriented X3. seems uncomfortable, flushed, jittery Eyes: Pupils equal, round and reactive to light. ENT: Pharynx normal. Neck: Normal inspection. Neck supple. No lymph nodes noted. No crepitus CVS: Normal heart rate and rhythm. Pulses normal. Normal S1 and S2 Respiratory: No respiratory distress. Breath sounds normal. No Wheezing. No rales Abdomen: Soft and nontender. No rigidity. No distention. Skin: flushed, mildly diaphoretic , flushed skin color. Normal skin turgor. Extremities: No lower extremity edema. No Lacerations. No Rash Neuro: Oriented X 3. No motor deficit. No sensory deficit. Moving all extremities. No slurred speech. CN 2 through 12 grossly intact, tremor in both hands Psych: calm, cooperative, normal affect Course Course Course Narrative: patient has been admitted multiple times for alcohol withdrawal patient's seems to be series of a trying to stop drinking Medical Decision Making Medical Decision Making [facility] Narrative: my interpretation of labs: No significant abnormality in patient's hematology and chemistry, magnesium 2.4, lipase 31, ETOH 317. Physically, seems that patient is starting to withdraw. Patient is very jittery, flushed, diaphoretic, seems uncomfortable. Blood pressure 159/128, heart rate between 115 and 125 patient was started on thiamine, IV fluids and phenobarb protocol I discussed the patient with Sam from the Medicine team, patient being admitted Differential Diagnosis Differential Diagnoses: The differential diagnosis associated with the presentation includes ( alcohol intoxication, dependence) Admission/Observation Consideration of admission/observation: Escalation of care including admission/observation considered Consult Healthcare Provider Management of the patient was discussed with: Hospitalist Lab Data [facility] Lab Attestation statement: I reviewed the patient's lab results. 10/27/24 21:04 10/27/24 21:04 Labs: Lab Results 10/27/24 Range/Units 21:04 WBC 3.1 L (4.8-10.8) X10*3/uL RBC 5.33 (4.60-5.80) X10*6/uL Hgb 15.9 (14.0-18.0) g/dl Hct 43.2 (42.0-52.0) % MCV 81.1 (80.0-98.0) fL MCH 29.8 (27.0-33.0) pg MCHC 36.8 H (31.0-36.0) g/dl RDW 13.2 (11.0-16.0) % Plt Count 236 (160-400) X10*3/uL MPV 8.6 L (9.4-12.4) fL Immature Gran % (Auto) 0.3 (0.0-0.4) % Neut % (Auto) 27.7 L (45-73) % Lymph % (Auto) 51.1 H (20-40) % [place] % (Auto) 19.9 H (2-11) % Eos % (Auto) 0.0 (0-4) % Baso % (Auto) 1.0 (0-2) % Lymph # (Auto) 1.6 (1.2-4.9) X10*3/uL [place] # (Auto) 0.6 (0.1-1.2) X10*3/uL Eos # (Auto) 0.0 (0.0-0.4) X10*3/uL Baso # (Auto) 0.0 (0.0-0.2) X10*3/uL Abs Immat Gran (auto) 0.01 (0.00-0.03) X10*3/uL Absolute Neuts (auto) 0.9 L (2.0-8.3) x10*3/uL Absolute Nucleated RBC 0.000 (0.0-0.012) X10*3/uL Nucleated RBC % (auto) 0.0 (0.0-0.2) /100WBC Smear Tech's Comments VERIFIED Sodium 139 (135-145) mmol/L Potassium 3.6 (3.3-5.1) mmol/L Chloride 100 (96-108) mmol/L Carbon Dioxide 23 (22-29) mmol/L Anion Gap 20 (12-20) BUN 14 (9-16) mg/dL Creatinine 0.89 (0.5-1.4) mg/dL Estim Creat Clear Calc 108.8 Estimated GFR > 60 Random Glucose 95 (60-115) mg/dL Calcium 9.6 (8.4-10.2) mg/dL Magnesium 2.4 (1.6-2.6) mg/dL Total Bilirubin 0.5 (0.0-1.0) mg/dL AST 79 H (5-37) U/L ALT 111 H (0-40) U/L Alkaline Phosphatase 64 (39-117) U/L Troponin I High Sens < 2.7 (<3.5-35.0) ng/L Total Protein 8.4 H (6.5-8.0) g/dL Albumin 4.9 (3.5-5.0) g/dL Lipase 31 (8-78) U/L Ethyl Alcohol 317 H* mg/dL Critical Care Time Critical Care Time Critical Care Time: Yes Total Critical Care Time: 60 Attestation: I have personally provided critical care time. Time includes review of lab data, radiology results, discussion with consultants, and monitoring for potential decompensation. Intervention performed as documented. Discharge Plan Discharge Clinical Impression: Alcohol use disorder, severe, dependence, Alcohol withdrawal syndrome Patient Disposition: Admitted As Inpatient Prescriptions: No Action fluoxetine 40 mg capsule 40 mg PO DAILY trazodone 50 mg tablet 50 mg PO BEDTIME thiamine HCl (vitamin B1) [Vitamin B-1] 100 mg Tablet 100 mg PO DAILY omeprazole 20 mg capsule,delayed release(DR/EC) 20 mg PO DAILY@0630 hydroxyzine HCl 50 mg tablet 50 mg PO BID chlordiazepoxide HCl 25 mg capsule 50 mg PO Q4H PRN (Reason: alcohol withdrawal) Qty: 12 0RF Rx Instructions: until symptoms controlled Print Language: [place]
[2024-10-27 22:15] VITALS: BP 151/119; PULSE 117; RESP 14; TEMP 36.8; O2SAT 98
[2024-10-27] MEDS: 0.9 % Sodium Chloride 1,000 ML 999 ML IVCONT (22:29)
[2024-10-27] MEDS: Thiamine HCL 200 MG in 0.9 % Sodium Chloride 100 ML 204 MG IV (22:30)
[2024-10-27] MEDS: PHENobarbitaL sodium 130 MG/ML IM ONCE 325 MG IM (22:30)
--- NOTE | 2024-10-27 22:30 | P.HPHOSP_ITS ---
History of Present Illness Date of Service: 10/27/24 Attending physician on admission: Allie Hills Chief Complaint: ETOH withdrawal Patient is a 38-year-old male with past medical history alcohol abuse, Vape marijuana not daily, alcohol withdrawal, DVT right upper extremity secondary to foreign body/ IV completed anticoagulation, gastritis/ GERD, transaminitis, hypertension, depressive disorder, mood disorder, anxiety was brought into the emergency department via ambulance after patient's father called to [employer] police for a welfare check. Patient was found inebriated after 4 days of binge drinking multiple beers with self-imposed detox. patient was originally at [facility] and was discharged 1.5 months ago. Patient discharged back home and patient has started drinking again. Patient also recently lost his job and has been having family issues with his father.Patient initially complained of abdominal pain with persistent nausea and vomiting. Patient had not been able to tolerate oral intake of food or fluids. Patient did receive 1 dose of Zofran via EMS and his symptoms improved slightly. Currently patient denies any suicidal ideations or homicidal ideations. Section 12 not indicated. Patient denies any seizures associated with alcohol withdrawal. Patient's goal for this admission is to return to [facility] as soon as possible. Patient states he did have an epistaxis earlier this morning but it did stop on its own. Patient states he does often get bloody noses with excessive alcohol use. Patient is no longer on anticoagulation for known DVT in the past. Patient denies any aspirin use or other anticoagulation use. Patient is not using NSAIDs regularly. Platelets and H&H are stable. In addition patient noted to have very specific rash on his chest with specific borders similar to a fungal infection. Patient states he has had this rash for some time. Patient has not received treatment for this rash so far. Patient does have noted sunburn on the back of his neck. This rash does not appear to be related to sun exposure. Patient also has thrush. Patient has not been HIV test and is willing to do so. Patient denies history of diabetes. Patient does not use any inhalers. Patient denies any unexplained weight loss. Patient states currently he feels very wired noting that he has started the phenobarb protocol. In addition patient has nausea persist but is no longer vomiting. Patient has been started on thiamine and folic acid. CIWA protocol is in place. Patient does have a leukopenia, no fever or chills. UA pending. Methadone is listed on patient's medication reconciliation prior to completion but patient is still never been prescribed methadone. Patient denies any history of opioid use disorder. Patient denies any history of illicit drug use or IV drug use. Patient has been told that his liver is only functioning at 2/3 capacity. Patient does not follow with a GI specialist. Patient has not been tested for hepatitis. Review of Systems 2 Review of Systems: patient denies any chest pain or shortness breath at rest. Patient is reporting continued nausea somewhat relieved with the Zofran. Patient states his epistaxis that occurred earlier this morning stopped with direct pressure after approximately 10 minutes. Patient denies any other issues with spontaneous bleeding. Patient is not taking aspirin or blood thinners. patient denies any headaches, visual changes or seizures associated with alcohol withdrawal. Patient offers that he is feeling very wired and would like to rest. Patient very emotional, at times tearful and able to express regret and need for continued rehab for his alcohol use. Yes all other systems are reviewed and are negative [facility] Medical History Alcohol abuse Deep vein thrombosis, upper right extremity Alcohol use disorder, severe, dependence Alcohol abuse Elevated LFTs Recurrent major depression-severe Alcohol withdrawal syndrome Hypertension Anxiety and depression Psychiatric disturbance Cognitive capacity: Alert and orientated x3, emotional Functional capacity: independent ambulation Family History Other Lung cancer Social History (Updated 10/27/24 @ 23:28 by NAUN Khoury) Household Members: Family Housing: House Do you presently have visiting nurse or other home services: No Alcohol intake: current Alcohol intake frequency: 3 or more drinks per day Alcohol type: beer, wine and hard liquor Comment: patient has been binge drinking multiple beers per day for 4-6 days at a t Patient Tobacco Use Status: Never used Tobacco Smoked in Last 30 Days: No e-Cigarette/Vaping Use: Never Used Second Hand Smoke Exposure: No Use of substances other than those prescribed or required for medical reasons: No Substance Use Type: Marijuana Substance Use Type Other:: Vapes marijuana Substance Use Frequency: Occasionally Advance Directives: Yes Advance Directives on File: Yes Advance Directives Date on File: 01/08/21 Nutrition Risks: No Nutritional Risk service: No Current occupational status: unemployed Sexual orientation: Straight/Heterosexual Ebola Risk: Travel/Contact With Anyone From Affected Area/s: No Has Patient Experienced Ebola Symptoms: No Meds Allergies Allergy/AdvReac Type Severity Reaction Status Date / Time No Known Allergies Allergy Unknown UNKNOWN Verified 10/27/24 20:51 [NO KNOWN ALLERGIES] Active Medications: Current Medications Acetaminophen (Acetaminophen 325 Mg Tablet) 650 mg PO Q6H PRN PRN Reason: Pain, Mild 1-3,fever,headache Albuterol/Ipratropium (Albuterol/Iprat 2.5/0.5mg 3 Ml Ampul.Neb) 3 ml INHALE Q4H PRN PRN Reason: Shortness of Breath/Wheezing Calcium Carbonate (Calcium Carbonate 750 Mg Tab.Chew) 750 mg PO Q4H PRN PRN Reason: Heartburn Enoxaparin Sodium (Enoxaparin Sodium 40 Mg/0.4 Ml Syringe) 40 mg SUBCUT Q24H VANESSA Sodium Chloride (Ns) 1,000 mls @ 999 mls/hr IVCONT .Q1H1M ONE Stop: 10/27/24 22:59 Magnesium Hydroxide (Milk Of Magnesia 30 Ml Oral.Susp) 30 ml PO DAILY PRN PRN Reason: Constipation Ondansetron HCl (Ondansetron Hcl 4 Mg/2 Ml Vial) 4 mg IVPUSH Q8H PRN PRN Reason: Nausea and Vomiting Pharmacy Consult (Consult Rx Etoh Phenob Im/Po) 1 each MISCELLANE ONCE PRN; Protocol PRN Reason: Consult order Phenobarbital (Phenobarbital 15 Mg Tablet) 45 mg PO BID VANESSA; Protocol Stop: 10/29/24 21:01 Phenobarbital (Phenobarbital 15 Mg Tablet) 15 mg PO BID VANESSA; Protocol Stop: 10/31/24 21:01 Phenobarbital (Phenobarbital 15 Mg Tablet) 15 mg PO DAILY VANESSA; Protocol Stop: 11/02/24 09:01 Phenobarbital Sodium (Phenobarbital Sodium 130 Mg/Ml Vial Im Q3hx2) 250 mg IM Q3H VANESSA; Protocol Stop: 10/28/24 05:31 Phenobarbital Sodium (Phenobarbital Sodium 130 Mg/Ml Im Once) 325 mg IM ONCE ONE; Protocol Stop: 10/27/24 22:31 Senna (Sennosides 8.6 Mg Tablet) 17.2 mg PO BEDTIME [facility] Sodium Chloride (0.9 % Sodium Chloride Flush 3 Ml Syringe) 3 ml IVFLUSH QSHIFT [facility] Home Medications ?Medication ?Instructions ?Recorded ?Confirmed ?Last Taken ?Type fluoxetine 40 mg capsule 40 mg PO DAILY 08/09/24 10/27/24 10/24/24 History omeprazole 20 mg capsule,delayed 20 mg PO DAILY@0630 08/09/24 10/27/24 10/24/24 History release thiamine HCl (vitamin B1) 100 mg 100 mg PO DAILY 08/09/24 10/27/24 10/24/24 History tablet (Vitamin B-1) trazodone 50 mg tablet 50 mg PO BEDTIME PRN Sleep 08/09/24 10/27/24 10/24/24 History hydroxyzine HCl 50 mg tablet 50 mg PO BID PRN Anxiety 09/19/24 10/27/24 10/24/24 History Physical Exam 2 Vital Signs and Narrative: Vital Signs: Last Vital Signs Temp 98.2 F 10/27/24 22:15 Pulse 117 H 10/27/24 22:15 Resp 14 10/27/24 22:15 BP 151/119 H 10/27/24 22:15 Pulse Ox 98 10/27/24 22:15 O2 Del Method Room Air 10/27/24 22:15 BMI result Body Mass Index 27.4 Physical Exam: Alert and orientated X3, able to give good history, very emotional. Neuro: CN II-X11 intact, no deficits, visual acuity intact EYES: PERRLA, EOM intact, mild exophthalmos ( patient states his eyes get larger when he drinks), conjunctiva pink with no exudates, sclera nonicteric ENT: hearing intact, no issues with swallowing, uvula midline, lips moist, nares patent no epistaxis, thrush noted on tongue only Cardiac: S1 S2 RRR, tachycardic, no murmur, no JVD, no edema in Lower ext Pulmonary: lungs clear to ausculation B Abdominal: BS active in all 4 quadrants, no guarding, tenderness, rebounding MSK: strength 5/5 upper and lower extremities : no CVA tenderness no bladder distension Extremities: no edema in lower extremities, PT and DP pulses palpable +2 Psych: mood anxious, judgement and insight fair skin: fungal rash suspected on patient's upper chest, no open wounds found, healing bruise left chest Results Labs 10/27/24 21:04 10/27/24 21:04 Labs: Laboratory Results - last 24 hr 10/27/24 21:04 MCV 81.1 MCH 29.8 MCHC 36.8 H RDW 13.2 Plt Count 236 MPV 8.6 L Immature Gran % (Auto) 0.3 Neut % (Auto) 27.7 L Lymph % (Auto) 51.1 H [place] % (Auto) 19.9 H Eos % (Auto) 0.0 Baso % (Auto) 1.0 Lymph # (Auto) 1.6 [place] # (Auto) 0.6 Eos # (Auto) 0.0 Baso # (Auto) 0.0 Abs Immat Gran (auto) 0.01 Absolute Neuts (auto) 0.9 L Absolute Nucleated RBC 0.000 Nucleated RBC % (auto) 0.0 Smear Tech's Comments VERIFIED Anion Gap 20 Estim Creat Clear Calc 108.8 Estimated GFR > 60 Random Glucose 95 Calcium 9.6 Magnesium 2.4 Total Bilirubin 0.5 AST 79 H ALT 111 H Alkaline Phosphatase 64 Troponin I High Sens < 2.7 Total Protein 8.4 H Albumin 4.9 Lipase 31 Ethyl Alcohol 317 H* ECG Attestation: I personally reviewed and interpreted this ECG as follows: ( sinus tachycardia) Prior ECG tracings: available for review Assessment and Plan (1) Alcohol withdrawal syndrome: Qualifiers: Complication of substance-induced condition: uncomplicated Qualified Code(s): F10.930 - Alcohol use, unspecified with withdrawal, uncomplicated Status: Acute Plan Patient is a 38-year-old male with past medical history alcohol abuse, Vape marijuana not daily, alcohol withdrawal, DVT right upper extremity secondary to foreign body/ IV completed anticoagulation, gastritis/ GERD, transaminitis, hypertension, depressive disorder, mood disorder, anxiety is being admitted for alcohol withdrawal secondary to alcohol abuse. Patient recently began binge drinking due to stressors at home and the loss of his job. Patient had been at [facility] and left 1.5 months ago and did very well up until recently. Alcohol withdrawal syndrome - Patient is started on phenobarb protocol with CIWA - Due to level of anxiety, 1 dose of Valium IV provided - IV fluids continue - Patient remains NPO due to persistent nausea and vomiting, Zofran ordered p.r.n. Advance diet as tolerated - Transaminitis noted, AST 79 ALT 111 alk-phos and Tbili normal, trend CMP, hepatitis panel pending - Avoid hepatotoxic medications - Thiamine and folic acid ordered - Patient's plan for discharge is to return to [facility], case management consulted - Addictions consulted - Patient denies SI, HI, no indication for section 12 Leukopenia - WBC 3.1, no fever, no chills or rigors - UA pending - No indication for chest x-ray at this time as patient as not hypoxic and lung sounds are clear. - Monitor CBC daily - There is evidence of a fungal rash on patient's chest and thrush, see below for plan - Consider Infectious Disease if indicated - HIV testing pending Tachycardia - Secondary to alcohol use and withdrawal - EKG reassuring, sinus tachycardia, no obvious ischemia - checking TSH with reflex Fungal rash upper chest - Rash has been present for at least the last 2 months. - Suspect fungal in nature - Clotrimazole topical ordered - Patient may need Dermatology as an outpatient for follow-up - Patient did agree to HIV testing Thrush - Mycelex Norma is ordered, patient not willing to do nystatin swish and swallow Gastritis related to alcohol use - Protonix IV 40 mgs ordered daily - NPO currently until nausea and vomiting resolved - recommend omeprazole daily 20 mg for discharge DVT prophylaxis: Lovenox PPI prophylaxis: Protonix Med rec completed Full code Quality Stroke Does the patient have a stroke diagnosis?: No Reason for No Anti-thrombotic by Day Two: N/A - Med Ordered VTE Prior VTE?: Yes VTE Risk Level:: Medical - moderate - high VTE Device Contraindication: N/A - Device Ordered VTE Drug Contraindication: N/A - Med Ordered
--- NOTE | 2024-10-27 22:33 | PHA.MEDREC ---
Addendum entered by Desire Amos [facility] 10/27/24 22:39: REVIEWED Original Note: Pharmacy Consult ? Medication Reconciliation Pharmacy has completed the medication reconciliation. Spoke with pt, who was very anxious during our interaction but was able to confirm his medications. Pt states he has been trying to take the Chlordiazepoxide HCl 25mg tab since he got discharged from our facility and got it prescribed to him on 09/30, but he doesn't know the last time he honestly took that.
[2024-10-27] MEDS: diazePAM 10 MG/2 ML CARTRIDGE IVPUSH (23:12)
[2024-10-27] MEDS: Enoxaparin Sodium 40 MG/0.4 ML SYRINGE SUBCUT (23:14)
--- NOTE | 2024-10-27 23:17 | PC.NURSE ---
This RN assumed pt care @ 2300. Pt a&ox4, no signs of distress. Pt denies pain at this time Pt medicated per jul Pt requested drink, pt reminded he is NPO. Plan of care ongoing.
[2024-10-28] VITALS (8 sets, daily range): BP systolic 134–161; BP diastolic 69–113; PULSE 65–121; RESP 12–16; TEMP 36.1–36.8; O2SAT 97–98; BMI 26.6
[2024-10-28] MEDS: PHENobarbitaL sodium 130 MG/ML VIAL IM Q3Hx2 250 MG IM ×2 (03:08→06:08)
--- NOTE | 2024-10-28 03:13 | PC.NURSE ---
Pt medicated per jul Pt requested and given urinal Plan of care ongoing.
[2024-10-28 05:39] LABS: Hematocrit 40.5 % (42.0-52.0); Hemoglobin 14.8 g/dl (14.0-18.0); Imm Gran Abs Auto 0.01 X10*3/uL (0.00-0.03); Imm Gran Pct Auto 0.3 % (0.0-0.4); Lymphocytes Absolute Auto 1.6 X10*3/uL (1.2-4.9); Lymphocytes Percent Auto 52.3 % (20-40); MANUAL DIFF FLAG SCAN; Mean Corpuscular HGB Conc 36.5 g/dl (31.0-36.0); Mean Corpuscular Hemoglobin 30.1 pg (27.0-33.0); Mean Corpuscular Volume 82.3 fL (80.0-98.0); Monocytes Absolute Auto 0.7 X10*3/uL (0.1-1.2); Monocytes Percent Auto 21.1 % (2-11); Neutrophils Absolute Auto 0.8 x10*3/uL (2.0-8.3); Neutrophils Percent Auto 25.3 % (45-73); Platelet Count 199 X10*3/uL (160-400); Red Blood Count 4.92 X10*6/uL (4.60-5.80); Red Cell Distribution Width 13.3 % (11.0-16.0); SCAN SMEAR FLAG 1; White Blood Count 3.1 X10*3/uL (4.8-10.8)
[2024-10-28 06:01] LABS: Alanine Aminotransferase 97 U/L (0-40); Albumin Level 4.1 g/dL (3.5-5.0); Anion Gap 19 (12-20); Aspartate Amino Transferase 86 U/L (5-37); Bilirubin Total 0.6 mg/dL (0.0-1.0); Blood Urea Nitrogen 15 mg/dL (9-16); Calcium 8.5 mg/dL (8.4-10.2); Carbon Dioxide 24 mmol/L (22-29); Chloride 100 mmol/L (96-108); Creatinine Clr Calc Pharmacy 110.1; Estimated Glomerular Filt Rate > 60; Glucose Random 86 mg/dL (60-115); Potassium 3.6 mmol/L (3.3-5.1); Sodium 139 mmol/L (135-145); Total Protein 7.1 g/dL (6.5-8.0)
[2024-10-28] MEDS: Pantoprazole Sodium 40 MG/10 ML VIAL IVPUSH (06:08)
[2024-10-28 06:10] LABS: SLIDE REVIEW VERIFIED
[2024-10-28 06:13] LABS: Alkaline Phosphatase 57 U/L (39-117)
[2024-10-28 08:29] LABS: HBS Num1 47.63 mIU/mL (0-7.99); HBc Num1 0.06 S/CO (0.00-0.79); HBsAGNum1 0.35 S/CO (0.00-0.99); HIV AB/AG Nonreactive (Nonreactive); HIV Num 1 0.06 S/CO (0.00-0.99); Hepatitis A Antibody IgM 0.24 Index (0-0.79); Hepatitis B Core Antibody Nonreactive (Nonreactive); Hepatitis B Surface Antigen Negative (Negative); ~HepC Num1 0.15 S/CO (0.00-0.79); ~Hepatitis A Antibody IgM Nonreactive (Nonreactive); ~Hepatitis B Surface Antibody REACTIVE (Nonreactive); ~Hepatitis C Antibody Nonreactive (Nonreactive)
[2024-10-28] MEDS: Folic Acid 1 MG TABLET PO (08:47)
[2024-10-28] MEDS: PHENobarbitaL 15 MG TABLET 45 MG PO ×2 (08:47→21:22)
[2024-10-28] MEDS: Thiamine HCL 100 MG TABLET PO (08:47)
[2024-10-28] MEDS: 0.9 % Sodium Chloride Flush 3 ML SYRINGE IVFLUSH ×2 (08:49→18:46)
--- NOTE | 2024-10-28 11:00 | MHC.CM.PN ---
Pt lives alone, he does not have a PCP, his father will transport him home at DC. Pt. said he is thinking about going to detox, was recently at [facility] for rehab. CM to follow for DC planning.
[2024-10-28] MEDS: PHENobarbitaL sodium 130 MG/ML VIAL IM ×2 (12:11→15:23)
[2024-10-28] MEDS: Clotrimazole 1 % Cream 15 GM TUBE 1 APPL TOPICAL ×2 (12:12→21:30)
--- NOTE | 2024-10-28 12:32 | HO.ADDICT_ITS ---
History of Present Illness Date of Service: 10/28/2024 Chief Complaint: etoh abuse Reason for Consult: AUD HPI Narrative: Patient is a 38 year old male with history of AUD, hypertension, and DVT. Medically admitted due to acute withdrawal sx. Patient well known to t/w via previous admissions and outpatient treatment for AUD Today, he is seen in ED bed 9. He is awake, alert, engaged in interview. Appearing unkempt. He expresses shame and embarrassment about being here for this again . States that he is struggling with amount of free time he has at home, coupled with social stresses and strained relationships with family members. He has been drinking for the past 4 days, he states that he thought he could have just 2 beers, but 2 beers turned into 4 days . Has not been taking any medications, including naltrexone He has been started on phenobarbital taper---he is slightly tremulous and reporting loose stools. Denies n/v. Reporting anxiety He states that he would like to return to [facility] for more treatment. Past Psychiatric History: IP: [facility] 2020 x 2 OP: No current providers Trials: Proc Medical Evaluation Reviewed: Yes Review of Systems Constitutional: Reports as per HPI, Reports difficulty sleeping and Reports malaise Diagnostics Vital Signs (24Hr): Vital Signs - 24 hr 10/27/24 20:44 10/27/24 22:15 10/28/24 02:07 Temperature 97.3 F 98.2 F 97 F Pulse Rate 107 H 117 H 102 H Respiratory Rate 18 14 16 Blood Pressure 159/128 H 151/119 H 134/96 H Pulse Oximetry 96 98 98 Oxygen Delivery Method Room Air Room Air Room Air 10/28/24 06:00 10/28/24 12:24 Temperature 97.4 F 98.2 F Pulse Rate 97 97 Respiratory Rate 16 12 Blood Pressure 144/103 H 142/89 H Pulse Oximetry 97 97 Oxygen Delivery Method Room Air Room Air BMI result Body Mass Index 27.4 Labs 10/28/24 05:18 10/28/24 05:18 Labs: Laboratory Results - last 48 hr 10/27/24 10/28/24 21:04 05:18 WBC 3.1 L 3.1 L RBC 5.33 4.92 Hgb 15.9 14.8 Hct 43.2 40.5 L MCV 81.1 82.3 MCH 29.8 30.1 MCHC 36.8 H 36.5 H RDW 13.2 13.3 Plt Count 236 199 MPV 8.6 L 9.0 L Immature Gran % (Auto) 0.3 0.3 Neut % (Auto) 27.7 L 25.3 L Lymph % (Auto) 51.1 H 52.3 H [place] % (Auto) 19.9 H 21.1 H Eos % (Auto) 0.0 0.0 Baso % (Auto) 1.0 1.0 Lymph # (Auto) 1.6 1.6 [place] # (Auto) 0.6 0.7 Eos # (Auto) 0.0 0.0 Baso # (Auto) 0.0 0.0 Abs Immat Gran (auto) 0.01 0.01 Absolute Neuts (auto) 0.9 L 0.8 L Absolute Nucleated RBC 0.000 0.000 Nucleated RBC % (auto) 0.0 0.0 Smear Tech's Comments VERIFIED VERIFIED Sodium 139 139 Potassium 3.6 3.6 Chloride 100 100 Carbon Dioxide 23 24 Anion Gap 20 19 BUN 14 15 Creatinine 0.89 0.88 Estim Creat Clear Calc 108.8 110.1 Estimated GFR > 60 > 60 Random Glucose 95 86 Calcium 9.6 8.5 D Magnesium 2.4 Total Bilirubin 0.5 0.6 AST 79 H 86 H ALT 111 H 97 H Alkaline Phosphatase 64 57 Troponin I High Sens < 2.7 Total Protein 8.4 H 7.1 Albumin 4.9 4.1 Lipase 31 TSH 2.00 Ethyl Alcohol 317 H* Hepatitis A IgM Ab Nonreactive Hep Bs Antigen Negative Hep Bs Antibody REACTIVE Hep B Core Total Ab Nonreactive Hepatitis C Ab (EIA) Nonreactive HIV 1&2 Ab/P24 Ag 4thGn Nonreactive Mental Status Exam Mental Status Exam Patient Appearance: Unkempt Level of Consciousness: Awake, Appropriate and Alert Patient Behavior: Appropriate and Talkative Mood Description: Anxious Affect Description: Anxious Speech Pattern: Clear Hallucinations: None Thought Process: Racing Judgement: Fair Medications Medications Current Medications Acetaminophen (Acetaminophen 325 Mg Tablet) 650 mg PO Q6H PRN PRN Reason: Pain, Mild 1-3,fever,headache Albuterol/Ipratropium (Albuterol/Iprat 2.5/0.5mg 3 Ml Ampul.Neb) 3 ml INHALE Q4H PRN PRN Reason: Shortness of Breath/Wheezing Calcium Carbonate (Calcium Carbonate 750 Mg Tab.Chew) 750 mg PO Q4H PRN PRN Reason: Heartburn Clotrimazole (Clotrimazole 1 % Cream 15 Gm Tube) 1 appl TOPICAL BID [facility]; Protocol Last Admin: 10/28/24 12:12 Dose: 1 appl Clotrimazole (Clotrimazole 10 Mg Norma) 10 mg MUCOUS MEM 5XD [facility] Stop: 11/02/24 05:59 Last Admin: 10/28/24 09:53 Dose: Not Given Enoxaparin Sodium (Enoxaparin Sodium 40 Mg/0.4 Ml Syringe) 40 mg SUBCUT Q24H [facility] Last Admin: 10/27/24 23:14 Dose: 40 mg Folic Acid (Folic Acid 1 Mg Tablet) 1 mg PO DAILY [facility] Last Admin: 10/28/24 08:47 Dose: 1 mg Magnesium Hydroxide (Milk Of Magnesia 30 Ml Oral.Susp) 30 ml PO DAILY PRN PRN Reason: Constipation Ondansetron HCl (Ondansetron Hcl 4 Mg/2 Ml Vial) 4 mg IVPUSH Q8H PRN PRN Reason: Nausea and Vomiting Pantoprazole Sodium (Pantoprazole Sodium 40 Mg/10 Ml Vial) 40 mg IVPUSH DAILY@0630 [facility] Last Admin: 10/28/24 06:08 Dose: 40 mg Pharmacy Consult (Consult Rx Etoh Phenob Im/Po) 1 each MISCELLANE ONCE PRN; Protocol PRN Reason: Consult order Phenobarbital (Phenobarbital 15 Mg Tablet) 45 mg PO BID [facility]; Protocol Stop: 10/29/24 21:01 Last Admin: 10/28/24 08:47 Dose: 45 mg Phenobarbital (Phenobarbital 15 Mg Tablet) 15 mg PO BID [facility]; Protocol Stop: 10/31/24 21:01 Phenobarbital (Phenobarbital 15 Mg Tablet) 15 mg PO DAILY [facility]; Protocol Stop: 11/02/24 09:01 Senna (Sennosides 8.6 Mg Tablet) 17.2 mg PO BEDTIME [facility] Sodium Chloride (0.9 % Sodium Chloride Flush 3 Ml Syringe) 3 ml IVFLUSH QSHIFT [facility] Last Admin: 10/28/24 08:49 Dose: 3 ml Thiamine HCl (Thiamine Hcl 100 Mg Tablet) 100 mg PO DAILY [facility] Last Admin: 10/28/24 08:47 Dose: 100 mg Allergies Allergies Allergy/AdvReac Type Severity Reaction Status Date / Time No Known Allergies Allergy Unknown UNKNOWN Verified 10/27/24 20:51 [NO KNOWN ALLERGIES] Assessment & Plan Assessment & Plan (1) Alcohol use disorder, severe, dependence: Status: Acute Code(s): F10.20 - Alcohol dependence, uncomplicated Assessment and Plan: * acute withdrawal--phenobarbital taper in place * continue thiamine and folic acid PO * if anxiety persists--consider clonidine or gabapentin 100mg * can resume naltrexone 50mg QD when appropriate (following withdrawal) * sustainability purchasing agent to check in over the weekend and discuss possibility of admission to [facility] from here (once medically cleared) Total time managing care of this patient today __35__ minutes. PMFSH Past Medical History Medical History Alcohol abuse Deep vein thrombosis, upper right extremity Alcohol use disorder, severe, dependence Alcohol abuse Elevated LFTs Recurrent major depression-severe Alcohol withdrawal syndrome Hypertension Anxiety and depression Psychiatric disturbance Family History Family History Other Lung cancer Social History Social History (Updated 10/27/24 @ 23:28 by NAUN Khoury) Household Members: Family Housing: House Do you presently have visiting nurse or other home services: No Alcohol intake: current Alcohol intake frequency: 3 or more drinks per day Alcohol type: beer, wine and hard liquor Comment: patient has been binge drinking multiple beers per day for 4-6 days at a t Patient Tobacco Use Status: Never used Tobacco Smoked in Last 30 Days: No e-Cigarette/Vaping Use: Never Used Second Hand Smoke Exposure: No Use of substances other than those prescribed or required for medical reasons: No Substance Use Type: Marijuana Substance Use Type Other:: Vapes marijuana Substance Use Frequency: Occasionally Advance Directives: Yes Advance Directives on File: Yes Advance Directives Date on File: 01/08/21 Nutrition Risks: No Nutritional Risk service: No Current occupational status: unemployed Sexual orientation: Straight/Heterosexual
[2024-10-28] MEDS: ondansetron HCL 4 MG/2 ML VIAL IVPUSH (13:57)
[2024-10-28] MEDS: cloNIDine HCL 0.1 MG TABLET PO (13:57)
[2024-10-28] MEDS: diazePAM 10 MG/2 ML CARTRIDGE IVPUSH (14:45)
[2024-10-28] MEDS: Labetalol HCL 100 MG TABLET PO ×2 (15:20→21:23)
[2024-10-28 17:52] LABS: Appearance Urine Clear; Color Urine Yellow; Glucose Urine UA Negative (Negative); Leukocyte Esterase Urine Negative (Negative); Nitrite Urine Negative (Negative); PH 6.5 (5.0-9.0); Specific Gravity - Urine 1.015 (1.005-1.025); Urine Blood Negative (Negative); Urine Ketones Negative (Negative); Urine Protein Trace mg/dL (Neg-Trace)
--- NOTE | 2024-10-28 17:54 | PC.NURSE ---
Pt's vs and CIWA improved after pt medicated per orders; pt tolerating PO intake with no N/V at this time; CIWA score 4
--- NOTE | 2024-10-28 18:18 | HO.PM.IMPN ---
Subjective Subjective Date of Service: 10/28/24 Interval History: Alcohol withdrawal Review of Systems Seems anxious and tremulous elevated CIWA Denies any nausea vomiting, eager to eat. Review of Systems: Yes all other systems are reviewed and are negative Physical Exam Vital Signs: Vital Signs: Last Vital Signs Temp 98.2 F 10/28/24 12:24 Pulse 100 10/28/24 15:20 Resp 16 10/28/24 13:18 BP 139/99 H 10/28/24 15:20 Pulse Ox 97 10/28/24 13:18 O2 Del Method Room Air 10/28/24 13:18 BMI result Body Mass Index 27.4 Appearance: Alert.? Oriented X3.? Anxious/tremulous cvs: rrr, [id number]. res: clear to auscultation ,no rhonchii or wheezing abd: no rebound or guarding ,nt, bs present. ext pulses present , no cyanosis . neuro: axo3 , nonfocal. Objective Data Active Medications Acetaminophen (Acetaminophen 325 Mg Tablet) 650 mg PO Q6H PRN PRN Reason: Pain, Mild 1-3,fever,headache Albuterol/Ipratropium (Albuterol/Iprat 2.5/0.5mg 3 Ml Ampul.Neb) 3 ml INHALE Q4H PRN PRN Reason: Shortness of Breath/Wheezing Calcium Carbonate (Calcium Carbonate 750 Mg Tab.Chew) 750 mg PO Q4H PRN PRN Reason: Heartburn Clotrimazole (Clotrimazole 1 % Cream 15 Gm Tube) 1 appl TOPICAL BID [facility]; Protocol Last Admin: 10/28/24 12:12 Dose: 1 appl Documented By: JEANCARLOS Clotrimazole (Clotrimazole 10 Mg Norma) 10 mg MUCOUS MEM 5XD [facility] Stop: 11/02/24 05:59 Last Admin: 10/28/24 15:46 Dose: 10 mg Documented By: JEANCARLOS Enoxaparin Sodium (Enoxaparin Sodium 40 Mg/0.4 Ml Syringe) 40 mg SUBCUT Q24H [facility] Last Admin: 10/27/24 23:14 Dose: 40 mg Documented By: BOBBY Fluoxetine HCl (Fluoxetine Hcl 20 Mg Capsule) 40 mg PO DAILY [facility] Folic Acid (Folic Acid 1 Mg Tablet) 1 mg PO DAILY [facility] Last Admin: 10/28/24 08:47 Dose: 1 mg Documented By: JEANCARLOS Hydroxyzine HCl (Hydroxyzine Hcl 50 Mg Tablet) 50 mg PO BID PRN PRN Reason: Anxiety Labetalol HCl (Labetalol Hcl 100 Mg Tablet) 100 mg PO BID [facility]; Protocol Last Admin: 10/28/24 15:20 Dose: 100 mg Documented By: JEANCARLOS Magnesium Hydroxide (Milk Of Magnesia 30 Ml Oral.Susp) 30 ml PO DAILY PRN PRN Reason: Constipation Omeprazole (Omeprazole 20 Mg Capsule.Dr) 20 mg PO DAILY@0630 [facility] Ondansetron HCl (Ondansetron Hcl 4 Mg/2 Ml Vial) 4 mg IVPUSH Q8H PRN PRN Reason: Nausea and Vomiting Last Admin: 10/28/24 13:57 Dose: 4 mg Documented By: JEANCARLOS Pantoprazole Sodium (Pantoprazole Sodium 40 Mg/10 Ml Vial) 40 mg IVPUSH DAILY@0630 [facility] Last Admin: 10/28/24 06:08 Dose: 40 mg Documented By: CATHY Pharmacy Consult (Consult Rx Etoh Phenob Im/Po) 1 each MISCELLANE ONCE PRN; Protocol PRN Reason: Consult order Phenobarbital (Phenobarbital 15 Mg Tablet) 45 mg PO BID [facility]; Protocol Stop: 10/29/24 21:01 Last Admin: 10/28/24 08:47 Dose: 45 mg Documented By: JEANCARLOS Phenobarbital (Phenobarbital 15 Mg Tablet) 15 mg PO BID [facility]; Protocol Stop: 10/31/24 21:01 Phenobarbital (Phenobarbital 15 Mg Tablet) 15 mg PO DAILY [facility]; Protocol Stop: 11/02/24 09:01 Senna (Sennosides 8.6 Mg Tablet) 17.2 mg PO BEDTIME [facility] Sodium Chloride (0.9 % Sodium Chloride Flush 3 Ml Syringe) 3 ml IVFLUSH QSHIFT [facility] Last Admin: 10/28/24 08:49 Dose: 3 ml Documented By: JEANCARLOS Thiamine HCl (Thiamine Hcl 100 Mg Tablet) 100 mg PO DAILY [facility] Last Admin: 10/28/24 08:47 Dose: 100 mg Documented By: JEANCARLOS Thiamine HCl (Thiamine Hcl 100 Mg Tablet) 100 mg PO DAILY [facility] Trazodone HCl (Trazodone Hcl 50 Mg Tablet) 50 mg PO BEDTIME PRN PRN Reason: Sleep Labs 10/28/24 05:18 10/28/24 05:18 Labs: Laboratory Results - last 24 hr 10/27/24 10/28/24 10/28/24 21:04 05:18 14:17 MCV 81.1 82.3 MCH 29.8 30.1 MCHC 36.8 H 36.5 H RDW 13.2 13.3 Plt Count 236 199 MPV 8.6 L 9.0 L Immature Gran % (Auto) 0.3 0.3 Neut % (Auto) 27.7 L 25.3 L Lymph % (Auto) 51.1 H 52.3 H [place] % (Auto) 19.9 H 21.1 H Eos % (Auto) 0.0 0.0 Baso % (Auto) 1.0 1.0 Lymph # (Auto) 1.6 1.6 [place] # (Auto) 0.6 0.7 Eos # (Auto) 0.0 0.0 Baso # (Auto) 0.0 0.0 Abs Immat Gran (auto) 0.01 0.01 Absolute Neuts (auto) 0.9 L 0.8 L Absolute Nucleated RBC 0.000 0.000 Nucleated RBC % (auto) 0.0 0.0 Smear Tech's Comments VERIFIED VERIFIED Anion Gap 20 19 Estim Creat Clear Calc 108.8 110.1 Estimated GFR > 60 > 60 Random Glucose 95 86 Calcium 9.6 8.5 D Magnesium 2.4 Total Bilirubin 0.5 0.6 AST 79 H 86 H ALT 111 H 97 H Alkaline Phosphatase 64 57 Troponin I High Sens < 2.7 Total Protein 8.4 H 7.1 Albumin 4.9 4.1 Lipase 31 TSH 2.00 Urine Color Urine Appearance Urine pH Ur Specific [place] Urine Protein Urine Glucose (UA) Urine Ketones Urine Blood Urine Nitrite Ur Leukocyte Esterase Phenobarbital 19.9 Ethyl Alcohol 317 H* Hepatitis A IgM Ab Nonreactive Hep Bs Antigen Negative Hep Bs Antibody REACTIVE Hep B Core Total Ab Nonreactive Hepatitis C Ab (EIA) Nonreactive HIV 1&2 Ab/P24 Ag 4thGn Nonreactive 10/28/24 17:37 MCV MCH MCHC RDW Plt Count MPV Immature Gran % (Auto) Neut % (Auto) Lymph % (Auto) [place] % (Auto) Eos % (Auto) Baso % (Auto) Lymph # (Auto) [place] # (Auto) Eos # (Auto) Baso # (Auto) Abs Immat Gran (auto) Absolute Neuts (auto) Absolute Nucleated RBC Nucleated RBC % (auto) Smear Tech's Comments Anion Gap Estim Creat Clear Calc Estimated GFR Random Glucose Calcium Magnesium Total Bilirubin AST ALT Alkaline Phosphatase Troponin I High Sens Total Protein Albumin Lipase TSH Urine Color Yellow Urine Appearance Clear Urine pH 6.5 Ur Specific [place] 1.015 Urine Protein Trace Urine Glucose (UA) Negative Urine Ketones Negative Urine Blood Negative Urine Nitrite Negative Ur Leukocyte Esterase Negative Phenobarbital Ethyl Alcohol Hepatitis A IgM Ab Hep Bs Antigen Hep Bs Antibody Hep B Core Total Ab Hepatitis C Ab (EIA) HIV 1&2 Ab/P24 Ag 4thGn Assessment and Plan (1) Alcohol withdrawal syndrome: Status: Acute Assessment and Plan: 38-year-old male with past medical history alcohol abuse, Vape marijuana not daily, alcohol withdrawal, DVT right upper extremity secondary to foreign body/ IV completed anticoagulation, gastritis/ GERD, transaminitis, hypertension, depressive disorder, mood disorder, anxiety is being admitted for alcohol withdrawal secondary to alcohol abuse-admitted for alcohol withdrawal. Alcohol withdrawal syndrome Anxious and tremulous Monitor with CIWA Plan: Continue phenobarb protocol, patient received an additional 130 mg/2 doses, also IV diazepam Continue to monitor Transaminitis-likely in the setting of alcohol use LFTs improving, hepatitis screening negative Avoid hepatotoxic medications,Thiamine and folic acid ordered Patient's plan for discharge is to return to [facility] rehab, case management consulted Addictions consulted Leukopenia - WBC 3.1, no fever, no chills or rigors UA negative ,No indication for chest x-ray at this time as patient as not hypoxic and lung sounds are clear. - Monitor CBC daily HIV 1&2-negative Tachycardia/elevated blood pressure: Likely in the setting of alcohol use and withdrawal Tachycardia improving, TSH normal, Continue supportive care with phenobarb protocol. Fungal rash upper chest Clotrimazole topical ordered Patient may need Dermatology as an outpatient for follow-up Thrush - Mycelex Norma is ordered. Possible Gastritis related to alcohol use Denies any abdominal pain nausea vomiting currently Start clear liquid, continue PPI DVT prophylaxis: Lovenox PPI prophylaxis: Protonix Ongoing need of stay: Alcohol withdrawal-need CIWA monitoring, renal function electrolyte monitoring , as well as phenobarb protocol. Quality Stroke Does the patient have a stroke diagnosis?: No Reason for No Anti-thrombotic by Day Two: N/A - Med Ordered VTE Prior VTE?: Yes VTE Risk Level:: Medical - moderate - high VTE Device Contraindication: N/A - Device Ordered VTE Drug Contraindication: N/A - Med Ordered
[2024-10-28] MEDS: Enoxaparin Sodium 40 MG/0.4 ML SYRINGE SUBCUT (21:23)
[2024-10-28] MEDS: Sennosides 8.6 MG TABLET 17.2 MG PO (21:23)
[2024-10-28] MEDS: traZODone HCL 50 MG TABLET PO (21:30)
[2024-10-29 04:00] VITALS: BP 145/80; PULSE 70; RESP 16; TEMP 36.7; O2SAT 100
[2024-10-29] MEDS: Pantoprazole Sodium 40 MG/10 ML VIAL IVPUSH (05:20)
[2024-10-29] MEDS: Omeprazole 20 MG CAPSULE.DR PO (05:20)
[2024-10-29 08:00] VITALS: BP 121/68; PULSE 58; RESP 19; TEMP 36.6; O2SAT 96
[2024-10-29] MEDS: Thiamine HCL 100 MG TABLET PO (10:01)
[2024-10-29] MEDS: Multivitamin TABLET 1 TAB PO (10:01)
[2024-10-29] MEDS: PHENobarbitaL 15 MG TABLET 45 MG PO ×2 (10:01→21:31)
[2024-10-29] MEDS: PHENobarbitaL sodium 65 MG/ML VIAL IM (10:01)
[2024-10-29] MEDS: Clotrimazole 1 % Cream 15 GM TUBE 1 APPL TOPICAL ×2 (10:02→21:32)
[2024-10-29] MEDS: FLUoxetine HCl 20 MG CAPSULE 40 MG PO (10:02)
[2024-10-29] MEDS: Labetalol HCL 100 MG TABLET PO ×2 (10:02→21:31)
[2024-10-29] MEDS: Folic Acid 1 MG TABLET PO (10:02)
[2024-10-29 12:00] VITALS: BP 122/70; PULSE 66; RESP 19; TEMP 36.2; O2SAT 93
--- NOTE | 2024-10-29 14:36 | PC.NURSE ---
pt stated he wants CSS and to return to [facility]. informed and spoke w/ addiction med
--- NOTE | 2024-10-29 15:13 | HO.PM.IMPN ---
Subjective Subjective Date of Service: 10/29/24 Interval History: alcohol withdrawals Review of Systems anxious and tramulous no new c/o Review of Systems: Yes all other systems are reviewed and are negative Physical Exam Vital Signs: Vital Signs: Last Vital Signs Temp 97.2 F 10/29/24 12:00 Pulse 66 10/29/24 12:00 Resp 19 10/29/24 12:00 BP 122/70 10/29/24 12:00 Pulse Ox 93 10/29/24 12:00 O2 Del Method Room Air 10/29/24 12:00 BMI result Body Mass Index 26.6 Appearance: Alert.? Oriented X3.? Anxious/tremulous cvs: rrr, [id number]. res: clear to auscultation ,no rhonchii or wheezing abd: no rebound or guarding ,nt, bs present. ext pulses present , no cyanosis . neuro: axo3 , nonfocal. Objective Data Active Medications Acetaminophen (Acetaminophen 325 Mg Tablet) 650 mg PO Q6H PRN PRN Reason: Pain, Mild 1-3,fever,headache Albuterol/Ipratropium (Albuterol/Iprat 2.5/0.5mg 3 Ml Ampul.Neb) 3 ml INHALE Q4H PRN PRN Reason: Shortness of Breath/Wheezing Calcium Carbonate (Calcium Carbonate 750 Mg Tab.Chew) 750 mg PO Q4H PRN PRN Reason: Heartburn Clotrimazole (Clotrimazole 1 % Cream 15 Gm Tube) 1 appl TOPICAL BID [facility]; Protocol Last Admin: 10/29/24 10:02 Dose: 1 appl Documented By: STEPHEN Clotrimazole (Clotrimazole 10 Mg Norma) 10 mg MUCOUS MEM 5XD [facility] Stop: 11/02/24 05:59 Last Admin: 10/29/24 13:10 Dose: 10 mg Documented By: STEPHEN Enoxaparin Sodium (Enoxaparin Sodium 40 Mg/0.4 Ml Syringe) 40 mg SUBCUT Q24H [facility] Last Admin: 10/28/24 21:23 Dose: 40 mg Documented By: CHIDI Fluoxetine HCl (Fluoxetine Hcl 20 Mg Capsule) 40 mg PO DAILY [facility] Last Admin: 10/29/24 10:02 Dose: 40 mg Documented By: STEPHEN Folic Acid (Folic Acid 1 Mg Tablet) 1 mg PO DAILY [facility] Last Admin: 10/29/24 10:02 Dose: 1 mg Documented By: STEPHEN Hydroxyzine HCl (Hydroxyzine Hcl 50 Mg Tablet) 50 mg PO BID PRN PRN Reason: Anxiety Labetalol HCl (Labetalol Hcl 100 Mg Tablet) 100 mg PO BID [facility]; Protocol Last Admin: 10/29/24 10:02 Dose: 100 mg Documented By: STEPHEN Magnesium Hydroxide (Milk Of Magnesia 30 Ml Oral.Susp) 30 ml PO DAILY PRN PRN Reason: Constipation Multivitamins/Vitamin C (Multivitamin Tablet) 1 tab PO DAILY [facility] Last Admin: 10/29/24 10:01 Dose: 1 tab Documented By: STEPHEN Omeprazole (Omeprazole 20 Mg Capsule.Dr) 20 mg PO DAILY@629 [facility] Last Admin: 10/29/24 05:20 Dose: 20 mg Documented By: CHIDI Ondansetron HCl (Ondansetron Hcl 4 Mg/2 Ml Vial) 4 mg IVPUSH Q8H PRN PRN Reason: Nausea and Vomiting Last Admin: 10/28/24 13:57 Dose: 4 mg Documented By: JEANCARLOS Pantoprazole Sodium (Pantoprazole Sodium 40 Mg/10 Ml Vial) 40 mg IVPUSH DAILY@629 [facility] Last Admin: 10/29/24 05:20 Dose: 40 mg Documented By: CHIDI Pharmacy Consult (Consult Rx Etoh Phenob Im/Po) 1 each MISCELLANE ONCE PRN; Protocol PRN Reason: Consult order Phenobarbital (Phenobarbital 15 Mg Tablet) 45 mg PO BID [facility]; Protocol Stop: 10/29/24 21:01 Last Admin: 10/29/24 10:01 Dose: 45 mg Documented By: STEPHEN Phenobarbital (Phenobarbital 15 Mg Tablet) 15 mg PO BID [facility]; Protocol Stop: 10/31/24 21:01 Phenobarbital (Phenobarbital 15 Mg Tablet) 15 mg PO DAILY [facility]; Protocol Stop: 11/02/24 09:01 Senna (Sennosides 8.6 Mg Tablet) 17.2 mg PO BEDTIME [facility] Last Admin: 10/28/24 21:23 Dose: 17.2 mg Documented By: CHIDI Sodium Chloride (0.9 % Sodium Chloride Flush 3 Ml Syringe) 3 ml IVFLUSH QSHIFT [facility] Last Admin: 10/29/24 07:22 Dose: Not Given Documented By: STEPHEN Non-Admin Reason: Previously Administered Thiamine HCl (Thiamine Hcl 100 Mg Tablet) 100 mg PO DAILY [facility] Last Admin: 10/29/24 10:01 Dose: 100 mg Documented By: STEPHEN Thiamine HCl (Thiamine Hcl 100 Mg Tablet) 100 mg PO DAILY [facility] Last Admin: 10/29/24 10:03 Dose: Not Given Documented By: STEPHEN Non-Admin Reason: duplicate dose Trazodone HCl (Trazodone Hcl 50 Mg Tablet) 50 mg PO BEDTIME PRN PRN Reason: Sleep Last Admin: 10/28/24 21:30 Dose: 50 mg Documented By: CHIDI Labs 10/28/24 05:18 10/28/24 05:18 Labs: Laboratory Results - last 24 hr 10/28/24 17:37 Urine Color Yellow Urine Appearance Clear Urine pH 6.5 Ur Specific [place] 1.015 Urine Protein Trace Urine Glucose (UA) Negative Urine Ketones Negative Urine Blood Negative Urine Nitrite Negative Ur Leukocyte Esterase Negative Assessment and Plan (1) Alcohol withdrawal syndrome: Status: Acute Assessment and Plan: 38-year-old male with past medical history alcohol abuse, Vape marijuana not daily, alcohol withdrawal, DVT right upper extremity secondary to foreign body/ IV completed anticoagulation, gastritis/ GERD, transaminitis, hypertension, depressive disorder, mood disorder, anxiety is being admitted for alcohol withdrawal secondary to alcohol abuse-admitted for alcohol withdrawal. Alcohol withdrawal syndrome Anxious and tremulous CIWA:11 Plan: Continue phenobarb protocol, patient received an additional 60 mg im dose added , also IV diazepam Continue to monitor Transaminitis-likely in the setting of alcohol use LFTs improving, hepatitis screening negative Avoid hepatotoxic medications,Thiamine and folic acid ordered [facility], case management consulted Addictions consulted Leukopenia - WBC 3.1, no fever, no chills or rigors UA negative ,No indication for chest x-ray at this time as patient as not hypoxic and lung sounds are clear. - Monitor CBC daily HIV 1&2-negative Tachycardia/elevated blood pressure: Likely in the setting of alcohol use and withdrawal Tachycardia /bp improving, TSH normal, Continue supportive care with phenobarb protocol. Fungal rash upper chest Clotrimazole topical ordered Patient may need Dermatology as an outpatient for follow-up Thrush - Mycelex Norma is ordered. Possible Gastritis related to alcohol use Denies any abdominal pain nausea vomiting currently advance diet, continue PPI DVT prophylaxis: Lovenox PPI prophylaxis: Protonix Ongoing need of stay: Alcohol withdrawal-need CIWA monitoring, renal function electrolyte monitoring , as well as phenobarb protocol. Quality Stroke Does the patient have a stroke diagnosis?: No Reason for No Anti-thrombotic by Day Two: N/A - Med Ordered VTE Prior VTE?: Yes VTE Risk Level:: Medical - moderate - high VTE Device Contraindication: N/A - Device Ordered VTE Drug Contraindication: N/A - Med Ordered
[2024-10-29 15:32] VITALS: BP 132/75; PULSE 81; RESP 18; TEMP 36.6; O2SAT 95
[2024-10-29] MEDS: 0.9 % Sodium Chloride Flush 3 ML SYRINGE IVFLUSH ×2 (18:02→21:36)
[2024-10-29 20:00] VITALS: BP 138/93; PULSE 82; RESP 16; TEMP 36.6; O2SAT 98
[2024-10-29] MEDS: traZODone HCL 50 MG TABLET PO (21:31)
[2024-10-29] MEDS: Sennosides 8.6 MG TABLET 17.2 MG PO (21:31)
[2024-10-29] MEDS: Enoxaparin Sodium 40 MG/0.4 ML SYRINGE SUBCUT (21:31)
[2024-10-29] MEDS: hydrOXYzine HCL 50 MG TABLET PO (21:32)
[2024-10-30] VITALS (8 sets, daily range): BP systolic 123–149; BP diastolic 72–101; PULSE 61–84; RESP 16–18; TEMP 36.2–36.8; O2SAT 95–99
[2024-10-30] MEDS: Omeprazole 20 MG CAPSULE.DR PO (06:23)
[2024-10-30] MEDS: Pantoprazole Sodium 40 MG/10 ML VIAL IVPUSH (06:23)
--- NOTE | 2024-10-30 07:48 | HO.PM.IMPN ---
Subjective Subjective Date of Service: 10/30/24 Interval History: alcohol withdrawals Review of Systems anxious and tamulous no chest pain or sob Review of Systems: Yes all other systems are reviewed and are negative Physical Exam Vital Signs: Vital Signs: Last Vital Signs Temp 98.2 F 10/30/24 07:25 Pulse 71 10/30/24 07:25 Resp 17 10/30/24 07:25 BP 126/74 10/30/24 07:25 Pulse Ox 99 10/30/24 07:25 O2 Del Method Room Air 10/30/24 07:25 BMI result Body Mass Index 26.6 Appearance: Alert.? Oriented X3.? Anxious/tremulous cvs: rrr, [id number]. res: clear to auscultation ,no rhonchii or wheezing abd: no rebound or guarding ,nt, bs present. ext pulses present , no cyanosis . neuro: axo3 , nonfocal. Objective Data Active Medications Acetaminophen (Acetaminophen 325 Mg Tablet) 650 mg PO Q6H PRN PRN Reason: Pain, Mild 1-3,fever,headache Albuterol/Ipratropium (Albuterol/Iprat 2.5/0.5mg 3 Ml Ampul.Neb) 3 ml INHALE Q4H PRN PRN Reason: Shortness of Breath/Wheezing Calcium Carbonate (Calcium Carbonate 750 Mg Tab.Chew) 750 mg PO Q4H PRN PRN Reason: Heartburn Clotrimazole (Clotrimazole 1 % Cream 15 Gm Tube) 1 appl TOPICAL BID [facility]; Protocol Last Admin: 10/29/24 21:32 Dose: 1 appl Documented By: CHIDI Clotrimazole (Clotrimazole 10 Mg Norma) 10 mg MUCOUS MEM 5XD [facility] Stop: 11/02/24 05:59 Last Admin: 10/30/24 06:23 Dose: 10 mg Documented By: CHIDI Enoxaparin Sodium (Enoxaparin Sodium 40 Mg/0.4 Ml Syringe) 40 mg SUBCUT Q24H [facility] Last Admin: 10/29/24 21:31 Dose: 40 mg Documented By: CHIDI Fluoxetine HCl (Fluoxetine Hcl 20 Mg Capsule) 40 mg PO DAILY [facility] Last Admin: 10/29/24 10:02 Dose: 40 mg Documented By: STEPHEN Folic Acid (Folic Acid 1 Mg Tablet) 1 mg PO DAILY [facility] Last Admin: 10/29/24 10:02 Dose: 1 mg Documented By: STEPHEN Hydroxyzine HCl (Hydroxyzine Hcl 50 Mg Tablet) 50 mg PO BID PRN PRN Reason: Anxiety Last Admin: 10/29/24 21:32 Dose: 50 mg Documented By: CHIDI Labetalol HCl (Labetalol Hcl 100 Mg Tablet) 100 mg PO BID [facility]; Protocol Last Admin: 10/29/24 21:31 Dose: 100 mg Documented By: CHIDI Magnesium Hydroxide (Milk Of Magnesia 30 Ml Oral.Susp) 30 ml PO DAILY PRN PRN Reason: Constipation Multivitamins/Vitamin C (Multivitamin Tablet) 1 tab PO DAILY [facility] Last Admin: 10/29/24 10:01 Dose: 1 tab Documented By: STEPHEN Omeprazole (Omeprazole 20 Mg Capsule.Dr) 20 mg PO DAILY@629 [facility] Last Admin: 10/30/24 06:23 Dose: 20 mg Documented By: CHIDI Ondansetron HCl (Ondansetron Hcl 4 Mg/2 Ml Vial) 4 mg IVPUSH Q8H PRN PRN Reason: Nausea and Vomiting Last Admin: 10/28/24 13:57 Dose: 4 mg Documented By: JEANCARLOS Pantoprazole Sodium (Pantoprazole Sodium 40 Mg/10 Ml Vial) 40 mg IVPUSH DAILY@629 [facility] Last Admin: 10/30/24 06:23 Dose: 40 mg Documented By: CHIDI Pharmacy Consult (Consult Rx Etoh Phenob Im/Po) 1 each MISCELLANE ONCE PRN; Protocol PRN Reason: Consult order Phenobarbital (Phenobarbital 15 Mg Tablet) 15 mg PO BID [facility]; Protocol Stop: 10/31/24 21:01 Phenobarbital (Phenobarbital 15 Mg Tablet) 15 mg PO DAILY [facility]; Protocol Stop: 11/02/24 09:01 Senna (Sennosides 8.6 Mg Tablet) 17.2 mg PO BEDTIME [facility] Last Admin: 10/29/24 21:31 Dose: 17.2 mg Documented By: CHIDI Sodium Chloride (0.9 % Sodium Chloride Flush 3 Ml Syringe) 3 ml IVFLUSH QSHIFT [facility] Last Admin: 10/29/24 21:36 Dose: 3 ml Documented By: CHIDI Thiamine HCl (Thiamine Hcl 100 Mg Tablet) 100 mg PO DAILY [facility] Last Admin: 10/29/24 10:01 Dose: 100 mg Documented By: STEPHEN Thiamine HCl (Thiamine Hcl 100 Mg Tablet) 100 mg PO DAILY [facility] Last Admin: 10/29/24 10:03 Dose: Not Given Documented By: STEPHEN Non-Admin Reason: duplicate dose Trazodone HCl (Trazodone Hcl 50 Mg Tablet) 50 mg PO BEDTIME PRN PRN Reason: Sleep Last Admin: 10/29/24 21:31 Dose: 50 mg Documented By: CHIDI Labs 10/28/24 05:18 10/28/24 05:18 Assessment and Plan (1) Alcohol withdrawal syndrome: Status: Acute Assessment and Plan: 38-year-old male with past medical history alcohol abuse, Vape marijuana not daily, alcohol withdrawal, DVT right upper extremity secondary to foreign body/ IV completed anticoagulation, gastritis/ GERD, transaminitis, hypertension, depressive disorder, mood disorder, anxiety is being admitted for alcohol withdrawal secondary to alcohol abuse-admitted for alcohol withdrawal. Alcohol withdrawal syndrome Anxious and tremulous CIWA:11 Plan: Continue phenobarb protocol, patient received an additional 60 mg im dose added , also IV diazepam Continue to monitor Transaminitis-likely in the setting of alcohol use LFTs improving, hepatitis screening negative Avoid hepatotoxic medications,Thiamine and folic acid ordered Patient's plan for discharge is to return to [facility], case management consulted Addictions consulted Leukopenia - WBC 3.1, no fever, no chills or rigors UA negative ,No indication for chest x-ray at this time as patient as not hypoxic and lung sounds are clear. - Monitor CBC daily HIV 1&2-negative Tachycardia/elevated blood pressure: Likely in the setting of alcohol use and withdrawal Tachycardia /bp improving, TSH normal, Continue supportive care with phenobarb protocol. Fungal rash upper chest Clotrimazole topical ordered Patient may need Dermatology as an outpatient for follow-up Thrush - Mycelex Norma is ordered. Possible Gastritis related to alcohol use Denies any abdominal pain nausea vomiting currently advance diet, continue PPI DVT prophylaxis: Lovenox PPI prophylaxis: Protonix Ongoing need of stay: Alcohol withdrawal-need CIWA monitoring, renal function electrolyte monitoring , as well as phenobarb protocol. Quality Stroke Does the patient have a stroke diagnosis?: No Reason for No Anti-thrombotic by Day Two: N/A - Med Ordered VTE Prior VTE?: Yes VTE Risk Level:: Medical - moderate - high VTE Device Contraindication: N/A - Device Ordered VTE Drug Contraindication: N/A - Med Ordered
[2024-10-30] MEDS: FLUoxetine HCl 20 MG CAPSULE 40 MG PO (09:11)
[2024-10-30] MEDS: Labetalol HCL 100 MG TABLET PO ×2 (09:11→20:13)
[2024-10-30] MEDS: Folic Acid 1 MG TABLET PO (09:11)
[2024-10-30] MEDS: Thiamine HCL 100 MG TABLET PO (09:11)
[2024-10-30] MEDS: Multivitamin TABLET 1 TAB PO (09:11)
[2024-10-30] MEDS: 0.9 % Sodium Chloride Flush 3 ML SYRINGE IVFLUSH ×3 (09:12→20:14)
[2024-10-30] MEDS: PHENobarbitaL 15 MG TABLET PO ×2 (09:12→20:13)
[2024-10-30] MEDS: Clotrimazole 1 % Cream 15 GM TUBE 1 APPL TOPICAL ×2 (09:12→20:19)
[2024-10-30] MEDS: PHENobarbitaL 30 MG TABLET PO (09:56)
[2024-10-30] MEDS: hydrOXYzine HCL 50 MG TABLET PO (13:57)
--- NOTE | 2024-10-30 16:01 | MHC.RECOVRN ---
Met with pt in follow-up to discuss how he is feeling in terms of recovery, EtOH withdrawal management, and next steps following d/c. Pt stated he feels much improved and is still considering possible options: [place] [facility] vs IOP. Discussed pros and cons with pt and provided pt with notebook and other support items. No other questions/concerns offered at this time. Will continue to monitor. Discussed with JOI Locke.
[2024-10-30] MEDS: Sennosides 8.6 MG TABLET 17.2 MG PO (20:13)
[2024-10-30] MEDS: Enoxaparin Sodium 40 MG/0.4 ML SYRINGE SUBCUT (22:01)
[2024-10-30] MEDS: traZODone HCL 50 MG TABLET PO (22:01)
[2024-10-31 03:58] VITALS: BP 112/62; PULSE 75; RESP 18; TEMP 36.4; O2SAT 98
[2024-10-31] MEDS: Omeprazole 20 MG CAPSULE.DR PO (06:10)
[2024-10-31] MEDS: Pantoprazole Sodium 40 MG/10 ML VIAL IVPUSH (06:10)
[2024-10-31] MEDS: 0.9 % Sodium Chloride Flush 3 ML SYRINGE IVFLUSH ×3 (06:10→21:17)
[2024-10-31 08:00] VITALS: BP 134/82; PULSE 60; RESP 18; TEMP 36.3; O2SAT 98
[2024-10-31] MEDS: Folic Acid 1 MG TABLET PO (08:10)
[2024-10-31] MEDS: FLUoxetine HCl 20 MG CAPSULE 40 MG PO (08:10)
[2024-10-31] MEDS: Thiamine HCL 100 MG TABLET PO (08:10)
[2024-10-31] MEDS: Multivitamin TABLET 1 TAB PO (08:10)
[2024-10-31] MEDS: PHENobarbitaL 15 MG TABLET PO ×2 (08:14→21:12)
[2024-10-31] MEDS: Clotrimazole 1 % Cream 15 GM TUBE 1 APPL TOPICAL ×2 (08:15→21:10)
[2024-10-31] MEDS: PHENobarbitaL 30 MG TABLET PO (10:55)
--- NOTE | 2024-10-31 11:32 | MHC.CM.PN ---
EMR reviewed and per MD rounds, pt is not medically cleared for discharge due to management of ETOH withdrawal, on phenobarb, psych consult pending.
[2024-10-31 12:00] VITALS: BP 147/91; PULSE 76; RESP 18; TEMP 36.6; O2SAT 94
--- NOTE | 2024-10-31 12:43 | P.PNADD_ITS ---
Subjective Subjective Date of Service: 10/31/24 Reason For Visit: etoh abuse Interim History: Patient seen in follow up for AUD completing phenobarbital taper Reports overall improvement in withdrawal sx, with the exception of anxiety (which has been an ongoing chronic issue) No tremor noted when patient seen Patient tearful during interview--planning to attend IOP following discharge Has been in communication with recovery supports and plans to [facility] Would like to resume Naltrexone with goal of transitioning to vivitrol at discharge Review of Systems Constitutional: Reports as per HPI and Reports no additional constitutional complaints Mental Status Exam Mental Status Exam Patient Appearance: Appropriate Level of Consciousness: Awake, Appropriate and Alert Patient Behavior: Appropriate, Talkative and Crying Affect Description: Appropriate and Sad Speech Pattern: Clear Hallucinations: None Delusions: Not Present Thought Process: Intact Thought Content: positive for Intact Judgement: Good Diagnostics Vital Signs (24Hr): Vital Signs - 24 hr 10/30/24 16:00 10/30/24 19:51 10/30/24 22:54 Temperature 97.9 F 97.7 F 97.1 F Pulse Rate 63 84 79 Respiratory Rate 17 16 18 Blood Pressure 145/94 H 140/96 H 149/93 H Pulse Oximetry 98 97 99 Oxygen Delivery Method Room Air Room Air Room Air 10/31/24 03:58 10/31/24 08:00 10/31/24 12:00 Temperature 97.5 F 97.3 F 97.8 F Pulse Rate 75 60 76 Respiratory Rate 18 18 18 Blood Pressure 112/62 134/82 147/91 H Pulse Oximetry 98 98 94 Oxygen Delivery Method Room Air Room Air Room Air BMI result Body Mass Index 26.6 Labs 10/28/24 05:18 10/28/24 05:18 Medications Medications Current Medications Acetaminophen (Acetaminophen 325 Mg Tablet) 650 mg PO Q6H PRN PRN Reason: Pain, Mild 1-3,fever,headache Albuterol/Ipratropium (Albuterol/Iprat 2.5/0.5mg 3 Ml Ampul.Neb) 3 ml INHALE Q4H PRN PRN Reason: Shortness of Breath/Wheezing Calcium Carbonate (Calcium Carbonate 750 Mg Tab.Chew) 750 mg PO Q4H PRN PRN Reason: Heartburn Clotrimazole (Clotrimazole 1 % Cream 15 Gm Tube) 1 appl TOPICAL BID [facility]; Protocol Last Admin: 10/31/24 08:15 Dose: 1 appl Clotrimazole (Clotrimazole 10 Mg Norma) 10 mg MUCOUS MEM 5XD [facility] Stop: 11/02/24 05:59 Last Admin: 10/31/24 08:10 Dose: 10 mg Enoxaparin Sodium (Enoxaparin Sodium 40 Mg/0.4 Ml Syringe) 40 mg SUBCUT Q24H [facility] Last Admin: 10/30/24 22:01 Dose: 40 mg Fluoxetine HCl (Fluoxetine Hcl 20 Mg Capsule) 40 mg PO DAILY [facility] Last Admin: 10/31/24 08:10 Dose: 40 mg Folic Acid (Folic Acid 1 Mg Tablet) 1 mg PO DAILY [facility] Last Admin: 10/31/24 08:10 Dose: 1 mg Hydroxyzine HCl (Hydroxyzine Hcl 50 Mg Tablet) 50 mg PO BID PRN PRN Reason: Anxiety Last Admin: 10/30/24 13:57 Dose: 50 mg Magnesium Hydroxide (Milk Of Magnesia 30 Ml Oral.Susp) 30 ml PO DAILY PRN PRN Reason: Constipation Multivitamins/Vitamin C (Multivitamin Tablet) 1 tab PO DAILY [facility] Last Admin: 10/31/24 08:10 Dose: 1 tab Omeprazole (Omeprazole 20 Mg Capsule.Dr) 20 mg PO DAILY@0630 [facility] Last Admin: 10/31/24 06:10 Dose: 20 mg Ondansetron HCl (Ondansetron Hcl 4 Mg/2 Ml Vial) 4 mg IVPUSH Q8H PRN PRN Reason: Nausea and Vomiting Last Admin: 10/28/24 13:57 Dose: 4 mg Pharmacy Consult (Consult Rx Etoh Phenob Im/Po) 1 each MISCELLANE ONCE [facility]; Protocol PRN Reason: Consult order Phenobarbital (Phenobarbital 15 Mg Tablet) 15 mg PO BID [facility]; Protocol Stop: 10/31/24 21:01 Last Admin: 10/31/24 08:14 Dose: 15 mg Phenobarbital (Phenobarbital 15 Mg Tablet) 15 mg PO DAILY [facility]; Protocol Stop: 11/02/24 09:01 Senna (Sennosides 8.6 Mg Tablet) 17.2 mg PO BEDTIME [facility] Last Admin: 10/30/24 20:13 Dose: 17.2 mg Sodium Chloride (0.9 % Sodium Chloride Flush 3 Ml Syringe) 3 ml IVFLUSH QSHIFT [facility] Last Admin: 10/31/24 06:10 Dose: 3 ml Thiamine HCl (Thiamine Hcl 100 Mg Tablet) 100 mg PO DAILY [facility] Last Admin: 10/31/24 08:10 Dose: 100 mg Thiamine HCl (Thiamine Hcl 100 Mg Tablet) 100 mg PO DAILY [facility] Last Admin: 10/31/24 08:22 Dose: Not Given Trazodone HCl (Trazodone Hcl 50 Mg Tablet) 50 mg PO BEDTIME PRN PRN Reason: Sleep Last Admin: 10/30/24 22:01 Dose: 50 mg Allergies Allergies Allergy/AdvReac Type Severity Reaction Status Date / Time No Known Allergies Allergy Unknown UNKNOWN Verified 10/27/24 20:51 [NO KNOWN ALLERGIES] Assessment & Plan Assessment & Plan (1) Alcohol use disorder, severe, dependence: Status: Acute Code(s): F10.20 - Alcohol dependence, uncomplicated Assessment and Plan: * will restart Naltrexone 50mg QD --rx to be sent to pharmacy * patient calling to schedule intake with [facility] ([facility]) * possibility of being seen at [facility] immediately following discharge for follow up and possibly vivitrol * transit man to follow up tomorrow and solidify discharge plan/follow up with [facility] Total time managing care of this patient today __35__ minutes.
[2024-10-31] MEDS: hydrOXYzine HCL 50 MG TABLET PO (14:35)
[2024-10-31 16:00] VITALS: BP 149/90; PULSE 75; RESP 18; TEMP 36.6; O2SAT 99
--- NOTE | 2024-10-31 16:06 | P.PNIM_ITS ---
Subjective Subjective Date of Service: 10/31/24 Interval History: alcohol withdrawals Review of Systems still anxious and tramulous no new c/o Review of Systems: Yes all other systems are reviewed and are negative Physical Exam 2 Vital Signs: Vital Signs: Last Vital Signs Temp 97.8 F 10/31/24 12:00 Pulse 76 10/31/24 12:00 Resp 18 10/31/24 12:00 BP 147/91 H 10/31/24 12:00 Pulse Ox 94 10/31/24 12:00 O2 Del Method Room Air 10/31/24 12:00 BMI result Body Mass Index 26.6 Appearance: Alert.? Oriented X3.? Anxious/tremulous cvs: rrr, [id number]. res: clear to auscultation ,no rhonchii or wheezing abd: no rebound or guarding ,nt, bs present. ext pulses present , no cyanosis . neuro: axo3 , nonfocal. Objective Data Active Medications Acetaminophen (Acetaminophen 325 Mg Tablet) 650 mg PO Q6H PRN PRN Reason: Pain, Mild 1-3,fever,headache Albuterol/Ipratropium (Albuterol/Iprat 2.5/0.5mg 3 Ml Ampul.Neb) 3 ml INHALE Q4H PRN PRN Reason: Shortness of Breath/Wheezing Calcium Carbonate (Calcium Carbonate 750 Mg Tab.Chew) 750 mg PO Q4H PRN PRN Reason: Heartburn Clotrimazole (Clotrimazole 1 % Cream 15 Gm Tube) 1 appl TOPICAL BID [facility]; Protocol Last Admin: 10/31/24 08:15 Dose: 1 appl Documented By: REJI Clotrimazole (Clotrimazole 10 Mg Norma) 10 mg MUCOUS MEM 5XD [facility] Stop: 11/02/24 05:59 Last Admin: 10/31/24 14:33 Dose: 10 mg Documented By: REJI Enoxaparin Sodium (Enoxaparin Sodium 40 Mg/0.4 Ml Syringe) 40 mg SUBCUT Q24H [facility] Last Admin: 10/30/24 22:01 Dose: 40 mg Documented By: YEFRI Fluoxetine HCl (Fluoxetine Hcl 20 Mg Capsule) 40 mg PO DAILY [facility] Last Admin: 10/31/24 08:10 Dose: 40 mg Documented By: REJI Folic Acid (Folic Acid 1 Mg Tablet) 1 mg PO DAILY [facility] Last Admin: 10/31/24 08:10 Dose: 1 mg Documented By: REJI Hydroxyzine HCl (Hydroxyzine Hcl 50 Mg Tablet) 50 mg PO BID PRN PRN Reason: Anxiety Last Admin: 10/31/24 14:35 Dose: 50 mg Documented By: REJI Magnesium Hydroxide (Milk Of Magnesia 30 Ml Oral.Susp) 30 ml PO DAILY PRN PRN Reason: Constipation Multivitamins/Vitamin C (Multivitamin Tablet) 1 tab PO DAILY [facility] Last Admin: 10/31/24 08:10 Dose: 1 tab Documented By: REJI Naltrexone HCl (Naltrexone Hcl 50 Mg Tablet) 50 mg PO DAILY [facility] Omeprazole (Omeprazole 20 Mg Capsule.Dr) 20 mg PO DAILY@0630 [facility] Last Admin: 10/31/24 06:10 Dose: 20 mg Documented By: YEFRI Ondansetron HCl (Ondansetron Hcl 4 Mg/2 Ml Vial) 4 mg IVPUSH Q8H PRN PRN Reason: Nausea and Vomiting Last Admin: 10/28/24 13:57 Dose: 4 mg Documented By: JEANCARLOS Pharmacy Consult (Consult Rx Etoh Phenob Im/Po) 1 each MISCELLANE ONCE PRN; Protocol PRN Reason: Consult order Phenobarbital (Phenobarbital 15 Mg Tablet) 15 mg PO BID [facility]; Protocol Stop: 10/31/24 21:01 Last Admin: 10/31/24 08:14 Dose: 15 mg Documented By: REJI Phenobarbital (Phenobarbital 15 Mg Tablet) 15 mg PO DAILY [facility]; Protocol Stop: 11/02/24 09:01 Senna (Sennosides 8.6 Mg Tablet) 17.2 mg PO BEDTIME [facility] Last Admin: 10/30/24 20:13 Dose: 17.2 mg Documented By: YEFRI Sodium Chloride (0.9 % Sodium Chloride Flush 3 Ml Syringe) 3 ml IVFLUSH QSHIFT [facility] Last Admin: 10/31/24 06:10 Dose: 3 ml Documented By: YEFRI Thiamine HCl (Thiamine Hcl 100 Mg Tablet) 100 mg PO DAILY [facility] Last Admin: 10/31/24 08:10 Dose: 100 mg Documented By: REJI Thiamine HCl (Thiamine Hcl 100 Mg Tablet) 100 mg PO DAILY [facility] Last Admin: 10/31/24 08:22 Dose: Not Given Documented By: REJI Non-Admin Reason: Previously Administered Trazodone HCl (Trazodone Hcl 50 Mg Tablet) 50 mg PO BEDTIME PRN PRN Reason: Sleep Last Admin: 10/30/24 22:01 Dose: 50 mg Documented By: YEFRI Labs 10/28/24 05:18 10/28/24 05:18 Assessment and Plan (1) Alcohol withdrawal syndrome: Status: Acute Plan 38-year-old male with past medical history alcohol abuse, Vape marijuana not daily, alcohol withdrawal, DVT right upper extremity secondary to foreign body/ IV completed anticoagulation, gastritis/ GERD, transaminitis, hypertension, depressive disorder, mood disorder, anxiety is being admitted for alcohol withdrawal secondary to alcohol abuse-admitted for alcohol withdrawal. Alcohol withdrawal syndrome Anxious and tremulous CIWA improving Plan: Continue phenobarb protocol, patient received an additionalpheno added po. Continue to monitor Transaminitis-likely in the setting of alcohol use LFTs improving, hepatitis screening negative Avoid hepatotoxic medications,Thiamine and folic acid ordered Patient's plan for discharge is to return to [facility], case management consulted Addictions consulted Leukopenia - WBC 3.1, no fever, no chills or rigors UA negative ,No indication for chest x-ray at this time as patient as not hypoxic and lung sounds are clear. - Monitor CBC daily HIV 1&2-negative Tachycardia/elevated blood pressure: Likely in the setting of alcohol use and withdrawal Tachycardia /bp improving, TSH normal, Continue supportive care with phenobarb protocol. Fungal rash upper chest Clotrimazole topical ordered Patient may need Dermatology as an outpatient for follow-up Thrush - Mycelex Norma is ordered. Possible Gastritis related to alcohol use Denies any abdominal pain nausea vomiting currently advance diet, continue PPI hx of anxiety -continue home meds except chlordiazepoxide. Added psych evaluation DVT prophylaxis: Lovenox. PPI prophylaxis: Protonix Ongoing need of stay: Alcohol withdrawal-need CIWA monitoring, renal function electrolyte monitoring , as well as phenobarb protocol. Quality Stroke Does the patient have a stroke diagnosis?: No Reason for No Anti-thrombotic by Day Two: N/A - Med Ordered VTE Prior VTE?: Yes VTE Risk Level:: Medical - moderate - high VTE Device Contraindication: N/A - Device Ordered VTE Drug Contraindication: N/A - Med Ordered
[2024-10-31] MEDS: Naltrexone HCl 50 MG TABLET PO (16:11)
--- NOTE | 2024-10-31 17:07 | PM.PSYCN ---
History of Present Illness Date of Service: 10/31/2024 Chief Complaint: etoh abuse Requesting physician: Reuben Bazzi Discussed with referring provider: Yes Sources of Information: patient interviewed, chart reviewed and crisis/core team assessment reviewed HPI Narrative: Mr. Avelar is a 38 year-old male with hx of depression and alcohol use disorder. He was admitted for alcohol withdrawal which he completed without medical complications. Psychiatry consulted for management of anxiety/depression. Pt seen in his room. He presents as calm and cooperative. He does appear somewhat anxious and restless. He reports he is stepping down dual diagnosis . He does not have a psychiatric prescriber. He does see a therapist. He reports he has been on prozac for some years. He reports he has not notice significant change in terms of his mood or anxiety. He denies SI/HI. He expresses concern about going to program and becoming very anxious and quickly leaving the program. He reports fair sleep. He denies hx of psychosis or delusions. No s/s of hypomania or natalya. Past Psychiatric History: IP: [facility] 2020 x 2 OP: No current providers Trials: Prozac, wellbutrin [facility] Medical History Alcohol abuse Deep vein thrombosis, upper right extremity Alcohol use disorder, severe, dependence Alcohol abuse Elevated LFTs Recurrent major depression-severe Alcohol withdrawal syndrome Hypertension Anxiety and depression Psychiatric disturbance Family History: Alcoholism and mental illness pt reports on both sides of his family. Social History: Living alone currently. No children. Substance History: alcohol use for several years. Trauma History: Affirms Diagnostics Vital Signs (24Hr): Vital Signs - 24 hr 10/30/24 19:51 10/30/24 22:54 10/31/24 03:58 Temperature 97.7 F 97.1 F 97.5 F Pulse Rate 84 79 75 Respiratory Rate 16 18 18 Blood Pressure 140/96 H 149/93 H 112/62 Pulse Oximetry 97 99 98 Oxygen Delivery Method Room Air Room Air Room Air 10/31/24 08:00 10/31/24 12:00 Temperature 97.3 F 97.8 F Pulse Rate 60 76 Respiratory Rate 18 18 Blood Pressure 134/82 147/91 H Pulse Oximetry 98 94 Oxygen Delivery Method Room Air Room Air BMI result Body Mass Index 26.6 Labs 10/28/24 05:18 10/28/24 05:18 Mental Status Exam Mental Status Exam Narrative: Appearance: wearing hospital gown, fair hygiene, in NAD Behavior: cooperative Psychomotor: no agitation or retardation Speech: clear, normal rate/rhythm/volume, spontaneous TP: linear TC: looking forward to continue tx. Mood: anxious Affect: congruent SI: denies HI: denies VH/AH: none Delusions: none Insight/judgment: fair x 2. Memory/cog: alert, oriented x 4. grossly intact. Medications Medications Current Medications Acetaminophen (Acetaminophen 325 Mg Tablet) 650 mg PO Q6H PRN PRN Reason: Pain, Mild 1-3,fever,headache Albuterol/Ipratropium (Albuterol/Iprat 2.5/0.5mg 3 Ml Ampul.Neb) 3 ml INHALE Q4H PRN PRN Reason: Shortness of Breath/Wheezing Calcium Carbonate (Calcium Carbonate 750 Mg Tab.Chew) 750 mg PO Q4H PRN PRN Reason: Heartburn Clotrimazole (Clotrimazole 1 % Cream 15 Gm Tube) 1 appl TOPICAL BID [facility]; Protocol Last Admin: 10/31/24 08:15 Dose: 1 appl Clotrimazole (Clotrimazole 10 Mg Norma) 10 mg MUCOUS MEM 5XD [facility] Stop: 11/02/24 05:59 Last Admin: 10/31/24 14:33 Dose: 10 mg Enoxaparin Sodium (Enoxaparin Sodium 40 Mg/0.4 Ml Syringe) 40 mg SUBCUT Q24H [facility] Last Admin: 10/30/24 22:01 Dose: 40 mg Fluoxetine HCl (Fluoxetine Hcl 20 Mg Capsule) 40 mg PO DAILY [facility] Last Admin: 10/31/24 08:10 Dose: 40 mg Folic Acid (Folic Acid 1 Mg Tablet) 1 mg PO DAILY [facility] Last Admin: 10/31/24 08:10 Dose: 1 mg Hydroxyzine HCl (Hydroxyzine Hcl 50 Mg Tablet) 50 mg PO BID PRN PRN Reason: Anxiety Last Admin: 10/31/24 14:35 Dose: 50 mg Magnesium Hydroxide (Milk Of Magnesia 30 Ml Oral.Susp) 30 ml PO DAILY PRN PRN Reason: Constipation Multivitamins/Vitamin C (Multivitamin Tablet) 1 tab PO DAILY [facility] Last Admin: 10/31/24 08:10 Dose: 1 tab Naltrexone HCl (Naltrexone Hcl 50 Mg Tablet) 50 mg PO DAILY [facility] Last Admin: 10/31/24 16:11 Dose: 50 mg Omeprazole (Omeprazole 20 Mg Capsule.Dr) 20 mg PO DAILY@0630 [facility] Last Admin: 10/31/24 06:10 Dose: 20 mg Ondansetron HCl (Ondansetron Hcl 4 Mg/2 Ml Vial) 4 mg IVPUSH Q8H PRN PRN Reason: Nausea and Vomiting Last Admin: 10/28/24 13:57 Dose: 4 mg Pharmacy Consult (Consult Rx Etoh Phenob Im/Po) 1 each MISCELLANE ONCE PRN; Protocol PRN Reason: Consult order Phenobarbital (Phenobarbital 15 Mg Tablet) 15 mg PO BID [facility]; Protocol Stop: 10/31/24 21:01 Last Admin: 10/31/24 08:14 Dose: 15 mg Phenobarbital (Phenobarbital 15 Mg Tablet) 15 mg PO DAILY [facility]; Protocol Stop: 11/02/24 09:01 Senna (Sennosides 8.6 Mg Tablet) 17.2 mg PO BEDTIME [facility] Last Admin: 10/30/24 20:13 Dose: 17.2 mg Sodium Chloride (0.9 % Sodium Chloride Flush 3 Ml Syringe) 3 ml IVFLUSH QSHIFT [facility] Last Admin: 10/31/24 06:10 Dose: 3 ml Thiamine HCl (Thiamine Hcl 100 Mg Tablet) 100 mg PO DAILY [facility] Last Admin: 10/31/24 08:10 Dose: 100 mg Thiamine HCl (Thiamine Hcl 100 Mg Tablet) 100 mg PO DAILY [facility] Last Admin: 10/31/24 08:22 Dose: Not Given Trazodone HCl (Trazodone Hcl 50 Mg Tablet) 50 mg PO BEDTIME PRN PRN Reason: Sleep Last Admin: 10/30/24 22:01 Dose: 50 mg Allergies Allergies Allergy/AdvReac Type Severity Reaction Status Date / Time No Known Allergies Allergy Unknown UNKNOWN Verified 10/27/24 20:51 [NO KNOWN ALLERGIES] Assessment & Plan Assessment & Plan (1) MDD (major depressive disorder), recurrent episode, moderate: Status: Acute Code(s): F33.1 - Major depressive disorder, recurrent, moderate (2) Alcohol use disorder, severe, dependence: Status: Acute Code(s): F10.20 - Alcohol dependence, uncomplicated Plan Mr. Boateng is a 38 year-old with hx of depressed mood, alcohol use disorder who was admitted for alcohol withdrawal, which he completed with phenobarb without complications. We discussed risks, benefits and alternative treatment options, will stop prozac given lower dose and long half life of medication less risk for discontinuation symptoms, start sertraline 100mg po daily. Start gabapentin 400mg po TID. Continue naltrexon 50mg po daily. We discussed risk of misuse or abuse of benzo as he continues working on recovery. stop hydroxyzine as has no therapeutic benefit per pt. PLAN 1. d/c prozac. Start sertraline 100mg po daily. Start gabapentin 400mg po TID. 2. continue naltrexon 50mg po daily 3. No need for inpt level of care. 4. Pt to connect with OP psych provider through dual dx program- [place]. Total time managing care of this patient today ____ minutes.
[2024-10-31] MEDS: Gabapentin 400 MG CAPSULE PO ×2 (17:33→21:13)
[2024-10-31 20:00] VITALS: BP 141/91; PULSE 65; RESP 18; TEMP 37.2; O2SAT 98
[2024-10-31] MEDS: traZODone HCL 50 MG TABLET PO (21:13)
[2024-10-31] MEDS: Sennosides 8.6 MG TABLET 17.2 MG PO (21:13)
[2024-10-31] MEDS: Enoxaparin Sodium 40 MG/0.4 ML SYRINGE SUBCUT (21:14)
[2024-10-31 23:43] VITALS: BP 122/73; PULSE 94; RESP 18; TEMP 36.9; O2SAT 96
[2024-11-01 03:59] VITALS: BP 117/78; PULSE 64; RESP 18; TEMP 37.4; O2SAT 97
[2024-11-01] MEDS: Omeprazole 20 MG CAPSULE.DR PO (05:53)
[2024-11-01 07:33] VITALS: BP 155/99; PULSE 60; RESP 20; TEMP 36.3; O2SAT 99
[2024-11-01] MEDS: Gabapentin 400 MG CAPSULE PO (07:43)
[2024-11-01] MEDS: Sertraline HCL 100 MG TABLET PO (07:43)
[2024-11-01] MEDS: PHENobarbitaL 15 MG TABLET PO (07:43)
[2024-11-01] MEDS: Multivitamin TABLET 1 TAB PO (07:43)
[2024-11-01] MEDS: Folic Acid 1 MG TABLET PO (07:43)
[2024-11-01] MEDS: Thiamine HCL 100 MG TABLET PO (07:43)
[2024-11-01] MEDS: Naltrexone HCl 50 MG TABLET PO (07:43)
[2024-11-01] MEDS: 0.9 % Sodium Chloride Flush 3 ML SYRINGE IVFLUSH (07:44)
[2024-11-01] MEDS: Clotrimazole 1 % Cream 15 GM TUBE 1 APPL TOPICAL (07:49)
--- NOTE | 2024-11-01 08:44 | PM.DS ---
DS: Providers Provider Date of Service: 11/01/24 Date of admission: 10/27/24 22:26 Date of discharge: 11/01/24 Primary care physician: None Physician Consults: 10/27/24 23:37 Addiction Medicine Provider Routine Consulting Provider: Addiction Covering Reason for consultation: alcohol abuse with withdrawal 10/27/24 23:38 Consult to Case Management Routine Comment: Patient is [facility] 10/31/24 09:56 Consult to Psychiatry Routine Consulting Provider[place] [facility] [place] Reason for consultation: anxiety Has provider been notified: No Attending physician on discharge: Reuben Bazzi Discharging clinician: Reuben Bazzi DS: Diagnosis Discharge Diagnosis (1) MDD (major depressive disorder), recurrent episode, moderate: Status: Acute DS: Summary Hospital Course Hospital Course: HPI:38-year-old male with past medical history alcohol abuse, Vape marijuana not daily, alcohol withdrawal, DVT right upper extremity secondary to foreign body/ IV completed anticoagulation, gastritis/ GERD, transaminitis, hypertension, depressive disorder, mood disorder, anxiety is being admitted for alcohol withdrawal secondary to alcohol abuse. Patient recently began binge drinking due to stressors at home and the loss of his job. Patient had been at [facility] and left 1.5 months ago and did very well up until recently. Hospital course: Patient was admitted to the hospital because of alcohol withdrawal-improved with phenobarb protocol. Mild transaminitis: Likely in the setting of alcohol use, improving. Monitor LFT outpatient. Has chronic leukopenia: No new symptoms, UA negative, chest x-ray negative, monitor CBC outpatient. Tachycardia and fluctuating blood pressure possibly secondary to alcohol withdrawal, resolved. rash upper chest-thought to be? fungal: Clotrimazole topical ordered,Patient may need Dermatology as an outpatient for follow-up Thrush-improved with Mycelex Norma is ordered. Possible Gastritis related to alcohol use-continue PPI p.o. Anxiety: Seen by psych, discontinue Prozac and started on sertraline 100 mg daily, gabapentin 400 mg t.i.d. follow-up outpatient with psych. Patient also needs to follow up outpatient with the addiction for further management. plan: Patient was strongly advised to abstain from alcohol. sertraline 100 mg daily, gabapentin 400 mg t.i.d. Discontinued fluoxetine, hydroxyzine,chlordizepoxide. Monitor LFTs, CBC Complete clotrimazole topical,Mycelex Norma . Follow-up with PCP, addiction, psych, consider dermatology evaluation outpatient. Above plan discussed with the patient detail length he understand and in agreement with the above plan, time spent 40 minute, all question answered, staff present during conversation. Time Attestation Discharge Coordination Time (in mins): 40min Quality: Safe Use of Opioids Does Pt have an Active Cancer Diagnosis on the Problem List?: No Quality: Stroke Does the patient have a stroke diagnosis?: No Physical Exam Vital Signs: Vital Signs: Last Vital Signs Temp 97.3 F 11/01/24 07:33 Pulse 60 11/01/24 07:33 Resp 20 11/01/24 07:33 BP 155/99 H 11/01/24 07:33 Pulse Ox 99 11/01/24 07:33 O2 Del Method Room Air 11/01/24 07:33 BMI result Body Mass Index 26.6 DS: Data Data Completed and Pending Completed studies during hospitalization [Text1]: Procedures Detoxification Services for Substance Abuse Treatment (08/09/24) Discharge Plan Discharge Anticipated Discharge Date/Time: 11/01/24 08:24 Patient Disposition: Home, Self-Care Discharge Diagnosis: Alcohol withdrawal, anxiety Referrals[place] [facility] [Provider Group] - 11/01/24 (Please present for your vivitrol injection upon discharge from the hospital. You also have a naltrexone prescription at your pharmacy) Physician,None [Primary Care Provider] - 1 Week Discharge Medications: New clotrimazole 10 mg Norma 10 mg mucous membrane 5XD Qty: 1 0RF clotrimazole 1 % Cream 1 appl topical BID Qty: 1 0RF Protocol: Apply to: Apply to: rash on chest gabapentin 400 mg Capsule 400 mg PO TID Qty: 90 0RF sertraline 100 mg Tablet 100 mg PO DAILY Qty: 90 0RF naltrexone 50 mg tablet 50 mg PO DAILY Qty: 30 3RF Continued naltrexone microspheres 380 mg suspension,extended rel recon 380 mg IM Q4W 30 Days Qty: 1 5RF trazodone 50 mg tablet 50 mg PO BEDTIME PRN (Reason: Sleep) Qty: 30 0RF thiamine HCl (vitamin B1) [Vitamin B-1] 100 mg Tablet 100 mg PO DAILY Qty: 30 0RF omeprazole 20 mg capsule,delayed release(DR/EC) 20 mg PO DAILY@0630 Qty: 30 0RF Discontinued fluoxetine 40 mg capsule 40 mg PO DAILY hydroxyzine HCl 50 mg tablet 50 mg PO BID PRN (Reason: Anxiety) chlordiazepoxide HCl 25 mg capsule 50 mg PO Q4H PRN (Reason: alcohol withdrawal) Qty: 12 0RF Rx Instructions: until symptoms controlled Discharge Orders: Discharge Order (Routine); Ordered 11/01/24 Ordered By: Reuben Bazzi Diet: Advance to usual diet Activity on Discharge: As tolerated Stand Alone Forms: Patient Portal Discharge page Print Language: Kazakh Care Plan Goals: as below Health Concerns: Patient was strongly advised to abstain from alcohol. sertraline 100 mg daily, gabapentin 400 mg t.i.d. Discontinued fluoxetine, hydroxyzine,chlordizepoxide. Monitor LFTs, CBC Complete clotrimazole topical,Mycelex Norma . Follow-up with PCP, addiction, psych, consider dermatology evaluation outpatient. Plan of Treatment: As above. Assessment: As above. Discharge Date/Time: 11/01/24 13:00
--- NOTE | 2024-11-01 09:29 | MHC.RECOVRN ---
Met with pt in 483- to follow up and provide support.? Pt awake, alert, easily engages in conversation, eating breakfast. Pt reports he is being D/C today. He will be picked up by a friend, Anupama and he will walk over to [facility] for his Vivitrol injection. He reports he will then go to [facility] and will be attending a fellowship meeting.?? Pt denies concerns/needs at this time.? T/w available as needed.
[2024-11-01 11:38] VITALS: BP 152/95; PULSE 68; RESP 20; TEMP 36.3; O2SAT 98
--- NOTE | 2024-11-01 14:02 | MHC.CM.PN ---
Pt is medically cleared for discharge home self-care, he will be starting the intensive outpatient program at [facility] after discharge, he has arranged his own transport home today.
== END 2024-11-01 13:00 | disposition home or self-care (01) | DRG 775 ==
LOC: HO.ED 22:15 → HO.EDOVER 22:37 → HO.IMC 10-28 16:04
PROVIDERS: Admitting Provider Nurse Practitioner Family; Emergency Provider Emergency Medicine; Visit Provider Internal Medicine
DX: F10.239 Alcohol dependence with withdrawal, unspecified (principal); B37.0 Candidal stomatitis; K29.20 Alcoholic gastritis without bleeding; B36.9 Superficial mycosis, unspecified; F33.1 Major depressive disorder, recurrent, moderate; Y90.8 Blood alcohol level of 240 mg/100 ml or more; Z79.899 Other long term (current) drug therapy
CPT/HCPCS: 36415; 80053; 80184; 80307; 81003; 83690; 83735; 84443; 84484; 85025; 86704; 86706; 86709; 86803; 87340; 87389; 93005; 99285; J1650; J2405; J2470; J2560; J3360; J3411

== ENCOUNTER → 2024-10-27 20:54 | Outpatient (BNV) | payer OTHER, SELFPAY | PROVIDERS: Admitting Provider Nurse Practitioner Family; Emergency Provider Emergency Medicine; Visit Provider Internal Medicine Cardiovascular Disease | DX: R00.0 Tachycardia, unspecified (principal) | CPT/HCPCS: 93010 ==

== ENCOUNTER → 2024-10-27 22:26 | Outpatient (BNV) | payer OTHER, SELFPAY | PROVIDERS: Admitting Provider Nurse Practitioner Family; Emergency Provider Emergency Medicine; Visit Provider Nurse Practitioner Psychiatric/Mental Health | DX: F10.20 Alcohol dependence, uncomplicated (principal) | CPT/HCPCS: 99232 ==

== ENCOUNTER → 2024-10-27 22:26 | Outpatient (BNV) | payer OTHER, SELFPAY | PROVIDERS: Admitting Provider Nurse Practitioner Family; Emergency Provider Emergency Medicine; Visit Provider Internal Medicine | DX: F10.930 Alcohol use, unspecified with withdrawal, uncomplicated (principal) | CPT/HCPCS: 99223; 99231; 99232; 99239 ==

== ENCOUNTER → 2024-11-01 13:05 | Outpatient (AMB) | payer OTHER, SELFPAY ==
--- NOTE | 2024-11-01 14:22 | AM.OFFVISNUR ---
Vital Signs 11/01/24 14:23 BP 158/98 H Blood Pressure Location Rt brachial Respiration 20 Pulse 96 Pulse Source Palpation Intake Visit Reasons: Vivitrol Injection Allergies No Known Allergies [NO KNOWN ALLERGIES] Allergy (Unknown, Verified 10/27/24 20:51) UNKNOWN Nursing Note Kar presented for injection as a walk in directly after discharge [facility] [place] [facility] [place] on 10/27. Kar was started on oral Naltrexone inpatient by the Addiction Consult Service and was receiving the Vivitrol injection last year through the [facility] he still had an injection available in our inpatient pharmacy from his previous attempt at maintaining sobriety. Kar is starting at [facility] tomorrow and is engaged in treatment for what he says is the first time. Kar made a visit to follow up with Dr Begum in the next couple of weeks and will return for next injection in 4 weeks. Office Meds Vivitrol 380 mg intramuscular suspension,extended release Performing Provider: Anjali Begum MD Performing Location: [facility] [place] Administered by: Rosario Eaton RN on 11/01/24 13:43 Dose Route Admin Location Dispensed Lot Number Expiration Date [facility] Fixed Route Operator 380 mg IM LG 380 mg 97071-693-03 bMenu Comments: Pt here for Vivitrol injection. Tolerated injection well. Educated on signs and symptoms of infection, urged to call [facility] with any questions or concerns. Pt verbalized understanding. Assessment & Plan Assessment & Plan Orders: Orders AMB Naltrexone Injection Patient Supplied (NC) Today F10.20 - Alcohol dependence, uncomplicated Coding
[2024-11-01 14:23] VITALS: BP 158/98; PULSE 96; RESP 20
--- OUTSIDE RECORDS SUMMARY | 2024-11-01 14:34 | XMS_ITS | Clinical Summary ---
Author Organization [employer] Address [address] [place] [address] Care Team Providers Care Tar Kettle Runner Name Role Phone Rory Pham MD Primary Care Prov ider Encounters Date Type Department Care Team Description 09/06/2024 Telephone [facility]baldo [facility] [address] [place], [place] [phone] Joy Gonzalez MD Discharged from [facility] (Patient calling to establish care with Dr. Gonzalez. Just discharged from [facility]. Needs a primary care to go [...] 1985 Lipid Panel 1985 SDOH Screening 1985 Disability Screening 1985 Alcohol/Substance Use Screening 1997 Tobacco Screening 1997 Family Planning (PISQ) 2000 Hepatitis C Screening 12/07/2003 Pneumococcal Vaccine: Pediatrics (0 to 5 Years) and At-Risk Patients (6 to 49) Years) (2 of 2 - PPSV23) 03/08/2021 01/11/2021 Hepatitis B Vaccines (3 of 3 - 19+ 3-dose series) 04/16/2022 02/19/2022, 01/15/2021 COVID-19 Vaccine ( season) 2024 05/28/2021, 09/27/2020, 08/30/2020 Influenza Vaccine (Season Ended) 2025 02/15/2022, 02/15/2022, 04/17/2021, Additional history exists DTaP/Tdap/Td Vaccines (6 - Td or Tdap) 07/12/2032 07/12/2022, 01/30/2022, 01/30/2022, Additional history exists Zoster Vaccines (1 of 2) 12/07/2035 RSV Patients and Patients Aged 60 years or older (1 - 1-dose 75+ series) 2060 Hepatitis A Vaccines Completed 02/19/2022, 10/11/19 14 HIB Vaccines Aged Out No longer eligi ble based on patient's age to complete this topic HPV Vaccines Aged Out No longer eligi ble based on patient's age to complete this topic IPV Vaccines Aged Out No longer eligi ble based on patient's age to complete this topic Meningococcal B Vaccine Aged Out No l onger eligible based on patient's age to complete this topic Meningococcal Vaccine Aged Out No slade holly eligible based on patient's age to complete this topic RSV under 20 months Aged Out No longe r eligible based on patient's age to complete this topic Rotavirus Vaccines Aged Out No longer eligible based on patient's age to complete this topic Insurance [facility] [employer] [id number] Care Teams Tar Kettle Runner Relationship Specialty Start Date End Date Rory Pham MD [address] [place] [id number] PCP - General Internal Medicine 12/29/23
== END ==
LOC: HO.HCC 13:05
DX: F10.20 Alcohol dependence, uncomplicated (principal)

== ENCOUNTER → 2024-11-01 13:05 | Outpatient (BNVA) | payer OTHER, SELFPAY | DX: F10.20 Alcohol dependence, uncomplicated (principal) | CPT/HCPCS: 96372; J2315 ==

== ENCOUNTER 2024-11-29 13:58 | Outpatient (AMB) | payer OTHER, SELFPAY ==
--- NOTE | 2024-11-29 14:11 | AM.OFFVISNUR ---
Vital Signs 11/29/24 14:21 BP 139/88 Blood Pressure Location Lt brachial Position Sitting Pulse 84 Pulse Source Pulse Oximeter Pulse Oximetry (%) 99 Oxygen Delivery Method Room Air Intake Visit Reasons: Injection Allergies No Known Allergies (NO KNOWN ALLERGIES) Allergy (Unknown, Verified 10/27/24 20:51) UNKNOWN Nursing Note Kar presented today for 4 week check in and Vivitrol injection, he had his days mixed up and was in the building for a pre-employment physical and stopped in for the injection one day earlier than scheduled. Kar is alert and oriented times 4 and presents with appropriate affect and reports doing well in recovery. He has been attending [facility] retort engineer and has just stepped down to 1/2 day sessions. Kar stated the the program doctor started him on Abilify to enhance the effects of Zoloft and he feels that it is improving his overall mood; he is eating and sleeping well and structuring his time to facilitate recovery, utilizing the skills that he is learning. Follow up made in 4 weeks. Office Meds Vivitrol 380 mg intramuscular suspension,extended release Performing Provider: Anjali Begum MD Performing Location: [facility] Administered by: Rosario Eaton RN on 11/29/24 14:35 Dose Route Admin Location Dispensed Lot Number Expiration Date [facility] Switchboard Manager 380 mg IM RG 380 mg [id number] 03/31/27 94501-888-08 [employer] Total Dispensed Waste 380 mg 0 % Comments: Pt here for Vivitrol injection. Pt denies any concern with previous injections and tolerated injection well. Educated on signs and symptoms of infection and encouraged to call [facility] with any related questions or concerns, pt verbalized understanding. Medication guide given per [facility] protocol. Follow-up scheduled in 4 weeks for next injection. Assessment & Plan Assessment & Plan Orders: Orders AMB Naltrexone Injection Patient Supplied (NC) Today F10.20 - Alcohol dependence, uncomplicated Coding
[2024-11-29 14:21] VITALS: BP 139/88; PULSE 84; O2SAT 99
--- OUTSIDE RECORDS SUMMARY | 2024-11-29 15:10 | XMS_ITS | Clinical Summary ---
Author Organization [employer] Address [address] [place] [address] Care Team Providers Care System Safety Manager Name Role Phone Rory Pham MD Primary Care Prov ider Encounters Date Type Department Care Team Description 09/06/2024 Telephone [facility] [address] [place], [place] [phone] Joy Gonzalez MD Discharged from [facility] (Patient calling to establish care with Dr. Gonzalez. Just discharged from [facility]. Needs a primary care to go over [...] Years) and At-Risk Patients (6 to 49) Years (2 of 2 - PPSV23) 03/08/2021 01/11/2021 [...] patient's age to complete this topic Insurance [facility] [employer] [id number] Care Teams System Safety Manager Relationship Specialty Start Date End Date OlivierRory Ruth MD [address] [place] [id number] PCP - General Internal Medicine 12/29/23
== END 2024-11-29 15:12 | disposition home or self-care (01) ==
LOC: HO.HCC 13:58
DX: F10.20 Alcohol dependence, uncomplicated (principal)

== ENCOUNTER → 2024-11-29 13:58 | Outpatient (BNVA) | payer OTHER, SELFPAY | DX: F10.20 Alcohol dependence, uncomplicated (principal) | CPT/HCPCS: 96372; J2315 ==

== ENCOUNTER 2024-12-28 15:52 | Outpatient (AMB) | payer OTHER, SELFPAY ==
--- NOTE | 2024-12-28 15:58 | AM.OFFVISNUR ---
Vital Signs 12/28/24 15:59 Height 5 ft 8 in Weight 89.358 kg BMI 30.0 BP 124/80 Pulse 103 H Pulse Source Pulse Oximeter Pulse Oximetry (%) 98 Oxygen Delivery Method Room Air Intake Visit Reasons: Injection Allergies No Known Allergies (NO KNOWN ALLERGIES) Allergy (Unknown, Verified 12/28/24 16:00) UNKNOWN Nursing Note Kar presented today for 4 week check in and Vivitrol injection, Kar is alert and oriented times 4 and presents with appropriate affect and reports doing well in recovery. He continues at the [facility] Recovery program partition notcher and will be stepping down to one evening a week, he attends AA weekly and will consider a peer recovery support defensive secondary coach once the IOP wraps up. Kar continues to feel the Abilify and Zoloft are improving his overall mood; sleep and appetite are good. He reports that he could not take the offer at [employer] until his driving record is clear but was offered a job on the spot at [employer]. Kar was given information for a young person in AA group that takes part in many events that he plans to attend. Follow up made in 4 weeks for next injection. Office Meds Vivitrol 380 mg intramuscular suspension,extended release Performing Provider: Anjali Begum MD Performing Location: [facility] Administered by: Rosario Eaton RN on 12/28/24 16:15 Dose Route Admin Location Dispensed Lot Number Expiration Date [facility] Tank Truck Operator 380 mg IM LG 380 mg [id number] 03/31/27 95243-543-64 [employer] Total Dispensed Waste 380 mg 0 % Comments: Pt here for 4 week Vivitrol 380 mg injection. Pt denies any concern with previous injections and tolerated injection well. Educated on signs and symptoms of infection and encouraged to call [facility] with any related questions or concerns, pt verbalized understanding. Follow-up scheduled in 4 weeks for next injection. Assessment & Plan Assessment & Plan Orders: Orders AMB Naltrexone Injection Patient Supplied (NC) Today F10.20 - Alcohol dependence, uncomplicated Coding
[2024-12-28 15:59] VITALS: BP 124/80; PULSE 103; O2SAT 98
== END 2024-12-28 16:54 | disposition home or self-care (01) ==
LOC: HO.HCC 15:52
DX: F10.20 Alcohol dependence, uncomplicated (principal)

== ENCOUNTER → 2024-12-28 15:52 | Outpatient (BNVA) | payer OTHER, SELFPAY | DX: F10.20 Alcohol dependence, uncomplicated (principal) | CPT/HCPCS: 96372; J2315 ==

== ENCOUNTER 2025-03-19 12:23 | Inpatient (IN) | payer BC, SELFPAY ==
[2025-03-19] VITALS (7 sets, daily range): BP systolic 129–192; BP diastolic 79–113; PULSE 103–126; RESP 17–27; TEMP 36.7; O2SAT 95–100; BMI 30.2
--- NOTE | ~2025-03-19 | XR_ITS ---
CLINICAL HISTORY: vomiting Chest Radiograph Comparison: CR/IN/SR - XR CHEST 2 VIEWS - 10/09/23 08:42 EDT CR/SR - XR CHEST 2 VIEWS - 08/04/23 11:55 EST CR/SR - XR CHEST 2 VIEWS - 07/28/23 09:10 EST Findings: No cardiomegaly. Normal mediastinal contours. No pneumothorax. No opacity. No pleural effusion. Normal upper abdomen. No acute fracture. Impression: No acute findings. This document has been electronically signed by: Rayne Spring MD on 03/19/2025 14:39:12
--- NOTE | 2025-03-19 13:02 | ED_ITS ---
HPI - General Adult General Chief complaint: Abdominal Pain Stated complaint: ABD PAIN,ETOH USE,VOMITING BRIGHT RED,160/120 Time Seen by Provider: 03/19/25 12:47 Source: patient and EMS Mode of arrival: EMS Limitations: no limitations History of Present Illness ED Provider: HPI narrative: 39-year-old male, states has been on binge drinking for the past 2 weeks, started drinking approximately 2 months ago initially small amounts and then progressive drinking a proximally 4 boxes of wine a day for the past 2 weeks, has had multiple blackouts, missed his work, smokes occasional marijuana denies any other drug use, during vomiting had an epistaxis from the left Nieto and had dark emesis. Has had no hematochezia. has not had alcohol withdrawal seizures but he gets confused. On initial presentation ALIREZA Crowe Also told me that when he was on antidepressants he was not drinking but he ran out of his medication and does not have a PCP and started drinking Related Data Previous Rx's ?Medication ?Instructions ?Recorded naltrexone microspheres 380 mg 380 mg IM Q4W 30 days # 1 ea 10/31/24 intramuscular suspension,extended release clotrimazole 1 % topical cream 1 appl topical BID #1 g 11/01/24 clotrimazole 10 mg kelli 10 mg mucous membrane 5XD #1 tab 11/01/24 gabapentin 400 mg capsule 400 mg PO TID #90 caps 11/01 naltrexone 50 mg tablet 50 mg PO DAILY #30 tabs 08/23 omeprazole 20 mg capsule,delayed 20 mg PO DAILY@0630 # 30 caps 11/01/24 release sertraline 100 mg tablet 100 mg PO DAILY #90 tabs 08/23 thiamine HCl (vitamin B1) 100 mg 100 mg PO DAILY #30 t abs 11/01/24 tablet (Vitamin B-1) trazodone 50 mg tablet 50 mg PO BEDTIME PRN Sleep # 30 tabs 11/01/24 acamprosate 333 mg tablet,delayed 666 mg (2 x 333 mg) PO TID 30 days 11/14/24 release #180 tabs naltrexone 50 mg tablet 50 mg PO DAILY 30 days #30 t abs 11/14/24 Allergies Allergy/AdvReac Type Severity Reaction Status Date / Time No Known Allergies (NO KNOWN Allergy Unknown UNKNOWN Verified 03/19/25 12:43 ALLERGIES) Review of Systems 2 Constitutional: Constitutional: Reports as per [facility] Past Medical History Medical History Alcohol abuse Deep vein thrombosis, upper right extremity Alcohol use disorder, severe, dependence Alcohol abuse Elevated LFTs Recurrent major depression-severe Alcohol withdrawal syndrome Hypertension Anxiety and depression Psychiatric disturbance Family History Family History Other Lung cancer Social History Social History (Updated 10/27/24 @ 23:28 by NAUN Khoury) Household Members: None Housing: House Do you presently have visiting nurse or other home services: No Alcohol intake: current Alcohol intake frequency: 3 or more drinks per day Alcohol type: beer and wine Comment: patient has been binge drinking multiple beers per day for 4-6 days at a t Patient Tobacco Use Status: Never used Tobacco Smoked in Last 30 Days: No e-Cigarette/Vaping Use: Never Used Second Hand Smoke Exposure: No Use of substances other than those prescribed or required for medical reasons: Yes Substance Use Type: Marijuana Substance Use Frequency: Occasionally Last Used Substance: Just Prior to Admission Advance Directives: Yes Advance Directives on File: Yes Advance Directives Date on File: 01/08/21 Do you have a plan to hurt others: No Plan service: No Current occupational status: unemployed Sexual orientation: Straight/Heterosexual Physical Exam ED Vital Signs: Vital Signs - 24 hr 03/19/25 12:39 03/19/25 12:45 03/19/25 13:57 Temperature 98.1 F 98.1 F Pulse Rate 126 H 126 H 123 H Respiratory Rate 18 18 Blood Pressure 192/113 H 192/113 H 157/90 H Pulse Oximetry 95 95 Oxygen Delivery Method Room Air Room Air BMI result Body Mass Index 30.2 Const Other: General: ?Appears older than stated age ? ?dry oral mucosa, no scleral icterus , dried blood at the left Nieto ? Neck: Supple, no LAD ? ?CV: Tachycardic and regular ? ?Resp: Tachypneic, no wheezing no rales ? Abd: ?Bowel sounds are present, no tenderness no rebound no rigidity ? ?MSK: FROM, strength 5/5 all extremities ? Skin: Warm, dry, intact, no jaundice ? ?Neuro: ?Alert and oriented x3, moving upper and lower extremities symmetrically, no obvious facial asymmetry noted, cranial nerves 2-12 intact, however he is significantly tremulous, has tongue fasciculations Anxious affect, no SI or HI Medications Administered Discontinued Medications Generic Name Dose Route Start Last Admin Trade Name Mikhailq PRN Reason Stop Dose Admin Diazepam 5 mg 03/19/25 13:03 03/19/25 13:15 Diazepam 10 Mg/2 Ml Cartridge IVPUSH 03/19/25 13:04 5 mg STAT STA Administration Famotidine 20 mg 03/19/25 13:03 03/19/25 13:15 Famotidine/Pf 20 Mg/2 Ml Vial IVPUSH 03/19/25 13:04 20 mg ONCE ONE Administration Sodium Chloride 1,000 mls @ 999 mls/hr 03/19/25 13:15 03/19/25 13:15 Ns IV 03/19/25 14:15 999 mls/hr .Q1H1M VANESSA Administration Ondansetron HCl 4 mg 03/19/25 13:03 03/19/25 13:15 Ondansetron Hcl 4 Mg/2 Ml Vial IVPUSH 03/19/25 13:04 4 mg ONCE ONE Administration Phenobarbital Sodium 273 mg 03/19/25 13:30 03/19/25 13:55 Phenobarbital Sodium 130 Mg/Ml Im Once IM 03/19/25 13:31 273 mg ONCE ONE Administration Medical Decision Making Medical Decision Making MDM Narrative: 1:09 PM 03/19/2025 (Dr. Ozzy Cisse): I am initiating phenobarb protocol for the patient we will give fluids, we will check H&H and chest x-ray, he states he was vomiting blood but he had a nosebleed and the emesis in the bag was just bile, there was no myesha hematemesis, chest x-ray to evaluate for presence of free air, otherwise we will start resuscitating him and plan for admission 1:58 PM 03/19/2025 (Dr. Ozzy Cisse): Patient is tachycardic, lactic is elevated, this is due to alcohol withdrawal, dehydration not related to infection I Differential Diagnosis Differential Diagnoses: The differential diagnosis associated with the presentation includes (Alcohol withdrawal, electrolyte derangements, alcoholic ketosis, dehydration, Boerhaave syndrome) Admission/Observation Consideration of admission/observation: Escalation of care including admission/observation considered Consult Healthcare Provider Management of the patient was discussed with: Hospitalist Lab Data MDM Lab Attestation statement: I reviewed the patient's lab results. 03/19/25 13:36 03/19/25 13:36 Labs: Lab Results 03/19/25 Range/Units 13:36 WBC 7.1 (4.8-10.8) X10*3/uL RBC 4.69 (4.60-5.80) X10*6/uL Hgb 13.1 L (14.0-18.0) g/dl Hct 37.8 L (42.0-52.0) % MCV 80.6 (80.0-98.0) fL MCH 27.9 (27.0-33.0) pg MCHC 34.7 (31.0-36.0) g/dl RDW 12.4 (11.0-16.0) % Plt Count 161 (160-400) X10*3/uL MPV 9.2 L (9.4-12.4) fL Immature Gran % (Auto) 0.3 (0.0-0.4) % Neut % (Auto) 84.7 H (45-73) % Lymph % (Auto) 6.6 L (20-40) % Montague % (Auto) 7.8 (2-11) % Eos % (Auto) 0.0 (0-4) % Baso % (Auto) 0.6 (0-2) % Lymph # (Auto) 0.5 L (1.2-4.9) X10*3/uL [place] # (Auto) 0.6 (0.1-1.2) X10*3/uL Eos # (Auto) 0.0 (0.0-0.4) X10*3/uL Baso # (Auto) 0.0 (0.0-0.2) X10*3/uL Abs Immat Gran (auto) 0.02 (0.00-0.03) X10*3/uL Absolute Neuts (auto) 6.0 (2.0-8.3) x10*3/uL Absolute Nucleated RBC 0.000 (0.0-0.012) X10*3/uL Nucleated RBC % (auto) 0.0 (0.0-0.2) /100WBC Sodium 135 (135-145) mmol/L Potassium 3.9 (3.3-5.1) mmol/L Chloride 99 (96-108) mmol/L Carbon Dioxide 21 L (22-29) mmol/L Anion Gap 19 (12-20) BUN 11 (9-16) mg/dL Creatinine 0.78 (0.5-1.4) mg/dL Estim Creat Clear Calc 138.5 Estimated GFR > 60 Random Glucose 107 (60-115) mg/dL Lactic Acid 3.9 H* (0.5-2.0) mmol/L Calcium 8.9 (8.4-10.2) mg/dL Magnesium 1.6 (1.6-2.6) mg/dL Total Bilirubin 0.8 (0.0-1.0) mg/dL AST 65 H (5-37) U/L ALT 39 (0-40) U/L Alkaline Phosphatase 58 (39-117) U/L Total Protein 7.5 (6.5-8.0) g/dL Albumin 4.7 (3.5-5.0) g/dL Lipase 18 (8-78) U/L Ethyl Alcohol < 10 mg/dL Independent Interpretation I performed an independent interpretation of an: EKG (121 beats per minute no dysrhythmia no QTC prolongation, no ST-T changes) and Plain X-Ray (No free air, no consolidations no pneumothorax) Critical Care Time Critical Care Time Critical Care Time: Yes Total Critical Care Time: 60 Attestation: Time is exclusive of separately billable procedures. Time includes: direct patient care, patient reassessment, coordination of patient care, interpretation of data (laboratory data, pulse oximetry, arterial blood gases and chest xrays), review of patient's medical records, medical consultation and documentation of patient care. Procedures excluded from critical care time: central intravenous line placement and electrocardiography. Discharge Plan Discharge Clinical Impression: Alcohol use disorder, severe, dependence Prescriptions: No Action naltrexone microspheres 380 mg suspension,extended rel recon 380 mg IM Q4W 30 Days Qty: 1 5RF clotrimazole 10 mg Kelli 10 mg mucous membrane 5XD Qty: 1 0RF clotrimazole 1 % Cream 1 appl topical BID Qty: 1 0RF Protocol: Apply to: Apply to: rash on chest gabapentin 400 mg Capsule 400 mg PO TID Qty: 90 0RF sertraline 100 mg Tablet 100 mg PO DAILY Qty: 90 0RF naltrexone 50 mg tablet 50 mg PO DAILY Qty: 30 3RF trazodone 50 mg tablet 50 mg PO BEDTIME PRN (Reason: Sleep) Qty: 30 0RF thiamine HCl (vitamin B1) [Vitamin B-1] 100 mg Tablet 100 mg PO DAILY Qty: 30 0RF omeprazole 20 mg capsule,delayed release(DR/EC) 20 mg PO DAILY@0630 Qty: 30 0RF naltrexone 50 mg tablet 50 mg PO DAILY 30 Days Qty: 30 3RF acamprosate 333 mg tablet,delayed release (DR/EC) 666 mg PO TID 30 Days Qty: 180 3RF Print Language: Puerto Rican
--- NOTE | 2025-03-19 13:03 | ECG_ITS ---
Test Reason : weakness Blood Pressure : */* mmHG Vent. Rate : 121 BPM Atrial Rate : 121 BPM P-R Int : 148 ms QRS Dur : 78 ms QT Int : 308 ms P-R-T Axes : 42 33 31 degrees QTcB Int : 437 ms Sinus tachycardia Otherwise normal ECG When compared with ECG of 27-Oct-2024 20:54, Nonspecific T wave abnormality has replaced inverted T waves in Inferior leads Referred By: Ozzy Cisse Electronically Signed By: ZEE BARRETT MD
--- OUTSIDE RECORDS SUMMARY | 2025-03-19 13:11 | XMS_ITS | Clinical Summary ---
Author Organization [employer] Address [address] [place] [address] [address] [place] [address] Care Team Providers Care Physician Office Clin Asst Name Role Phone Unavailable Primary Care Provider Unavailabl e Social History Tobacco Use Types Packs/Day Years [...] Tobacco Screening 1997 Family Planning (PISQ) 2000 HPV Vaccines (1 - Male 3-dose series) 2000 Hepatitis C Screening 12/07/2003 Pneumococcal Vaccine: Pediatrics (0 to 5 Years) and At-Risk Patients (6 to 49) Years (2 of 2 - PPSV23) 03/08/2021 01/11/2021 Hepatitis B Vaccines (3 of 3 - 19+ 3-dose series) 04/16/2022 02/19/2022, 01/15/2021 COVID-19 Vaccine ( - season) 2025 05/28/2021, 09/27/2020, 08/30/2020 Influenza Vaccine (#1) 2025 , 02/15/2022, 04/17/2021, Additional history exists DTaP/Tdap/Td Vaccines [...] patient's age to complete this topic Insurance [facility] [id number]
--- OUTSIDE RECORDS SUMMARY | 2025-03-19 13:11 | XMS_ITS | Clinical Summary ---
Author Organization [facility] Address [address] [place] [phone] Phone Care Team Providers Care Black Ash Worker Name Role Phone Cristóbal Abraham MD Primary Care Provide r Allergies No known active allergies Medications CLONIDINE HCL ORAL Take 0.1 mg by mouth. 1 tab in am and 2 tab in pm Active amlodipine besylate (AMLODIPINE ORAL) Take 5 mg by mouth. Active FLUOXETINE, BULK, MISC 20 mg by Miscellaneous route. Active trazodone HCl (TRAZODONE ORAL) Take 50 mg by mouth nightly at bedtime. Active OMEPRAZOLE, BULK, MISC 40 mg by Miscellaneous route 2 (two) times a day. Active famotidine (PEPCID) 20 MG tablet Take 1 tablet (20 mg total) by mouth 2 (two) times a day. For gastritis 60 tablet 1 2 Active multivitamin per tablet Take 1 tablet by mouth daily. 30 tablet 3 2 Active aluminum-magne sium hydroxide-christiane thicone (MAALOX) 200-200-20 mg/5 mL Susp Take 30 mL by mouth every 6 (six) hours as needed. 150 mL 1 2 Active Additional Information Patient not taking.Reported on 10/30/2021 folic acid (FA-8) 0.8 mg Cap Take 1 tablet by mouth daily. 30 capsule 1 2 Active Active Problems Problem Noted Date Diagnosed Date Acute alcoholic gastritis without hemorrhage Assessment & Plan (08/20/2021 9:41 AM EDT): Patient presented with 1 day history of severe nausea, vomiting, and epigastric pain in the setting of heavy alcohol use x 6 days, ad drinking for 2 days. Patient had a similar episode after an alcohol binge requiring admission to [facility]. Suspect this is alcohol gastritis without evidence of acute bleeding. No evidence of excessive NSAID use. Patient initially n.p.o., advance to regular diet on 08/20 which thus far he has tolerated. -We will start Maalox as needed and Carafate 1 g 4 times daily. -We will start IV Protonix 40 mg daily -Also continue IV Zofran as needed for nausea. -No indication for GI consultation at this time. Alcohol withdrawal syndrome without complication 08/19/2021 Assessment & Plan (08/20/2021 10:07 AM EDT): Patient with a history of alcohol withdrawal requiring hospital admissions, denies history of withdrawal seizures or delirium tremens. Patient with recent discharge from inpatient alcohol detox on 08/12, he started drinking alcohol heavily the same evening and throughout the week, binge drinking from Thursday through Thursday early afternoon when he developed abdominal pain nausea/vomiting and presented to the ED later that evening. Last alcohol drink Friday 08/18 afternoon. The patient presented with evidence of alcohol withdrawal despite alcohol level at 61. Patient received IV bolus of phenobarbital, and was admitted to the hospital for further management. He states he has been a heavy alcohol drinker since 15 years old, is motivated to cut back versus stop alcohol use. He was initiated on naltrexone IM earlier this month, which he says did decrease the euphoria associated with alcohol, he plans on continuing naltrexone outpatient. He is enrolled in intensive outpatient program for alcohol use disorder, has standing appointments Thursday. He has family support and reached out to his father to take all the alcohol from his apartment. He currently lives alone, feels his apartment is safe dispo plan for him. We will be reaching out to friends and family to see if he could stay with someone in the early days of his recovery. -Continue alcohol withdrawal assessment -We will continue phenobarbital taper for 1-2 more days -Start thiamine, folate, and multivitamin. Hypertensive disorder Assessment & Plan (08/19/2021 1:21 AM EDT): Continue home amlodipine and clonidine with holding parameters. Alcoholic ketoacidosis Assessment & Plan (08/20/2021 10:08 AM EDT): Patient had alcoholic ketoacidosis with severely low CO2 at 9 with an anion gap of 45. UA positive for 2+ ketones. Patient received D5 normal saline x1 L. Clinically appeared dehydrated and labs show mild hemoconcentration, which resolved with IVF. Leukocytosis Assessment & Plan (08/20/2021 10:08 AM EDT): Likely stress-induced. No signs symptoms of acute infection. Afebrile hemodynamically stable. resolved Social History Tobacco Use Types Packs/Day Years Used Date Smoking Tobacco: Former Cigarettes Smokeless Tobacco: Current Chew Alcohol Use Standard Drinks/Week Comments Yes 0 (1 standard drink = 0.6 oz pur e alcohol) handle every 3 days of liquor Education Answer Date Recorded Are you interested in more education? Not on noe e 09/27/2022 Are you concerned about learning? Not on file 09/27/2022 No 09/27/2022 No 09/27/2022 Digital Access Answer Date Recorded No 10/26/2022 No 10/26/2022 No 10/26/2022 Reliable internet access at home? Not on file 10/26/2022 Device with a working camera? Not on file Sex and Gender Information Value Date Recorded Sex Assigned at Male 08/18/2021 7:53 PM EDT Legal Sex Male 7:40 PM EDT Gender Identity Male 08/18/2021 7:53 PM EDT Sexual Orientation Not on file Last Filed Vital Signs Vital Sign Reading Time Taken Comments Blood Pressure 166/92 01/26/2022 7:00 PM EDT Pulse 107 01/26/2022 7:00 PM EDT Temperature 36.7 C (98.1 F) 01/26/2022 11:37 AM EDT Respiratory Rate 19 01/26/2022 7:00 PM EDT Oxygen Saturation 98% 01/26/2022 7:00 PM EDT Inhaled Oxygen Concentration - - Weight 79.4 kg (175 lb) 01/26/2022 12:03 PM EDT Height 172.7 cm (5' 8 ) 01/26/2022 11:37 AM EDT Body Mass Index 26.61 01/26/2022 11:37 AM EDT Plan of Treatment Health Maintenance Due Date Last Done Comments BLOOD PRESSURE 1985 LIPID PANEL 1985 DEPRESSION SCREENING 1997 SMOKING Hx and SMOKELESS TOBACCO SCREENING 1998 HEPATITIS C SCREENING 12/07/2003 HIV ONE-TIME SCREENING (18-65 YEARS) 12/07/2003 Adult Td,Tdap Booster 09/13/2022 09/13/2012 , 04/29/2004, 06/26/2000 INFLUENZA VACCINE (#1) 2024 , 07/09/2020, 04/20/2019, Additional history exists COVID-19 VACCINE ( season) 2025 05/28/2021, 09/27/2020, 08/30/2020 HEPATITIS A VACCINES Aged Out 10/10/2013 No long er eligible based on patient's age to complete this topic PNEUMOCOCCAL VACCINES (0-49 years) Aged Out 01/11/2021 No longer eligible based on patient's age to complete this topic HIB VACCINES Aged Out No longer eligi ble based on patient's age to complete this topic MENINGOCOCCAL VACCINES (ACWY) Aged Out No longer eligible based on patient's age to complete this topic MENINGOCOCCAL VACCINES (B) Aged Out N o longer eligible based on patient's age to complete this topic Medical Devices Not on file Insurance [facility] Member Subscriber Plan / Payer (Ef fective 2020-Present) Name:Juliocesar Boateng Relation to Subscriber:Self Name:Juliocesar Boateng Payer ID:Not on file Type:O Address: [address] [facility] Advance Directives For more information, please contact: [phone] (9AM - 5PM [facility], Thursday-Thursday) * Full Code (Latest Code Status on File) Date Activated Date Inactivated Comments 08/19/2021 12:39 PM Question Answer Comments Code Status Confirmed With: Patient Code Status Communicated To: Inpatient Attending Care Teams Black Ash Worker Relationship Specialty Start Date End Date Cristóbal Abraham MD [address] [place] [id number] PCP - General Internal Medicine 08/18/21 Additional Source Comments The information contained in this document represents components of the legal health record. It is not the complete legal health record.[facility]
[2025-03-19] MEDS: diazePAM 10 MG/2 ML CARTRIDGE 5 MG IVPUSH (13:15)
[2025-03-19 13:41] LABS: MANUAL DIFF FLAG NO
[2025-03-19 13:42] LABS: Hematocrit 37.8 % (42.0-52.0); Hemoglobin 13.1 g/dl (14.0-18.0); Imm Gran Abs Auto 0.02 X10*3/uL (0.00-0.03); Imm Gran Pct Auto 0.3 % (0.0-0.4); Lymphocytes Absolute Auto 0.5 X10*3/uL (1.2-4.9); Mean Corpuscular HGB Conc 34.7 g/dl (31.0-36.0); Mean Corpuscular Hemoglobin 27.9 pg (27.0-33.0); Mean Corpuscular Volume 80.6 fL (80.0-98.0); NRBC Abs Auto 0.000 X10*3/uL (0.0-0.012); NRBC Pct Auto 0.0 /100WBC (0.0-0.2); Platelet Count 161 X10*3/uL (160-400); Red Blood Count 4.69 X10*6/uL (4.60-5.80); White Blood Count 7.1 X10*3/uL (4.8-10.8)
[2025-03-19] MEDS: PHENobarbitaL sodium 130 MG/ML IM ONCE 273 MG IM (13:55)
[2025-03-19 13:56] LABS: Alanine Aminotransferase 39 U/L (0-40); Albumin Level 4.7 g/dL (3.5-5.0); Alkaline Phosphatase 58 U/L (39-117); Anion Gap 19 (12-20); Aspartate Amino Transferase 65 U/L (5-37); Blood Urea Nitrogen 11 mg/dL (9-16); Calcium 8.9 mg/dL (8.4-10.2); Carbon Dioxide 21 mmol/L (22-29); Chloride 99 mmol/L (96-108); Creatinine Clr Calc Pharmacy 138.5; Estimated Glomerular Filt Rate > 60; Lipase 18 U/L (8-78); Magnesium 1.6 mg/dL (1.6-2.6); Potassium 3.9 mmol/L (3.3-5.1); Sodium 135 mmol/L (135-145); Total Protein 7.5 g/dL (6.5-8.0)
--- NOTE | 2025-03-19 14:59 | PM.IMHP ---
History of Present Illness Date of Service: 03/19/25 Attending physician on admission: Reuben Bazzi Chief Complaint: alcohol withdrawals HPI:39y/o M alcohol abuse, Vape marijuana not daily, alcohol withdrawal, DVT right upper extremity secondary to foreign body/ IV completed anticoagulation, gastritis/ GERD, transaminitis, hypertension, depressive disorder, mood disorder, anxiety -came with binge drinking for the past 2 weeks, started drinking approximately 2 months ago initially small amounts and then progressive drinking a proximally 4 boxes of wine a day for the past 2 weeks, has had multiple blackouts, missed his work, smokes occasional marijuana denies any other drug use, during vomiting had an epistaxis from the left [place] and had dark emesis. Has had no hematochezia. He said he vomited so many times that he has started having some epistaxis. He said he had drink too much, after that having nausea vomiting, has some epigastric discomfort. Unable to tolerate food- tried bread last night but right throw up. Otherwise passing gas is okay. Lab imaging reviewed: Has lactic acidosis of 3.9 CBC seems fine CMP reviewed: Seems fine, LFTs slightly better than last time. Urine toxicology pending Chest x-ray: No acute finding EKG sinus tachycardia. Patient received Valium, started on phenobarb protocol, received Zofran and famotidine-still very tremulous and has been feeling still very nauseated, unable to tolerate p.o.: Admission recommended for alcohol withdrawal and possible alcoholic gastritis. Review of Systems Review of Systems: Yes all other systems are reviewed and are negative [facility] Medical History Alcohol abuse Deep vein thrombosis, upper right extremity Alcohol use disorder, severe, dependence Alcohol abuse Elevated LFTs Recurrent major depression-severe Alcohol withdrawal syndrome Hypertension Anxiety and depression Psychiatric disturbance Family History Other Lung cancer Social History Household Members: None Housing: House Do you presently have visiting nurse or other home services: No Alcohol intake: current Alcohol intake frequency: 3 or more drinks per day Alcohol type: beer and wine Comment: patient has been binge drinking multiple beers per day for 4-6 days at a t Patient Tobacco Use Status: Never used Tobacco Smoked in Last 30 Days: No e-Cigarette/Vaping Use: Never Used Second Hand Smoke Exposure: No Use of substances other than those prescribed or required for medical reasons: Yes Substance Use Type: Marijuana Substance Use Frequency: Occasionally Last Used Substance: Just Prior to Admission Advance Directives: Yes Advance Directives on File: Yes Advance Directives Date on File: 01/08/21 Do you have a plan to hurt others: No Plan service: No Current occupational status: unemployed Sexual orientation: Straight/Heterosexual Meds Allergies Allergy/AdvReac Type Severity Reaction Status Date / Time No Known Allergies (NO KNOWN Allergy Unknown UNKNOWN Verified 03/19/25 12:43 ALLERGIES) Active Medications: Current Medications Acetaminophen (Acetaminophen 325 Mg Tablet) 650 mg PO Q6H PRN PRN Reason: Pain, Mild 1-3,fever,headache Calcium Carbonate (Calcium Carbonate 750 Mg Tab.Chew) 750 mg PO Q4H PRN PRN Reason: Heartburn Folic Acid (Folic Acid 1 Mg Tablet) 1 mg PO DAILY [facility] Magnesium Hydroxide (Milk Of Magnesia 30 Ml Oral.Susp) 30 ml PO DAILY PRN PRN Reason: Constipation Melatonin (Melatonin 3 Mg Tablet) 6 mg PO BEDTIME PRN PRN Reason: Insomnia Omeprazole (Omeprazole 20 Mg Capsule.Dr) 20 mg PO DAILY [facility] Pharmacy Consult (Consult Rx Etoh Phenob Im/Po) 1 each MISCELLANE ONCE PRN; Protocol PRN Reason: Consult order Phenobarbital (Phenobarbital 15 Mg Tablet) 45 mg PO BID [facility] Stop: 03/21/25 21:01 Phenobarbital (Phenobarbital 15 Mg Tablet) 15 mg PO BID [facility] Stop: 03/23/25 21:01 Phenobarbital (Phenobarbital 15 Mg Tablet) 15 mg PO DAILY [facility] Stop: 03/25/25 09:01 Phenobarbital Sodium (Phenobarbital Sodium 130 Mg/Ml Vial Im Q3hx2) 208 mg IM Q3H [facility] Stop: 03/19/25 20:01 Sodium Chloride (0.9 % Sodium Chloride Flush 3 Ml Syringe) 3 ml IVFLUSH QSHIFT [facility] Thiamine HCl (Thiamine Hcl 100 Mg Tablet) 100 mg PO DAILY [facility] Physical Exam Vital Signs and Narrative: Vital Signs: Last Vital Signs Temp 98.1 F 03/19/25 12:45 Pulse 123 H 03/19/25 13:57 Resp 18 03/19/25 12:45 BP 157/90 H 03/19/25 13:57 Pulse Ox 95 03/19/25 12:45 O2 Del Method Room Air 03/19/25 12:45 BMI result Body Mass Index 30.2 Appearance: Alert.? Oriented X3.? Anxious and tremulous ent: mild tried blood left nostril. cvs: rrr, [id number] , mild tachycardia res: clear to auscultation ,no rhonchii or wheezing abd: no rebound or guarding ,nt, bs present. ext pulses present , no cyanosis neuro: axo3 , nonfocal. Results Labs 03/19/25 13:36 03/19/25 13:36 Labs: Laboratory Results - last 24 hr 03/19/25 13:36 MCV 80.6 MCH 27.9 MCHC 34.7 RDW 12.4 Plt Count 161 MPV 9.2 L Immature Gran % (Auto) 0.3 Neut % (Auto) 84.7 H Lymph % (Auto) 6.6 L [place] % (Auto) 7.8 Eos % (Auto) 0.0 Baso % (Auto) 0.6 Lymph # (Auto) 0.5 L [place] # (Auto) 0.6 Eos # (Auto) 0.0 Baso # (Auto) 0.0 Abs Immat Gran (auto) 0.02 Absolute Neuts (auto) 6.0 Absolute Nucleated RBC 0.000 Nucleated RBC % (auto) 0.0 Anion Gap 19 Estim Creat Clear Calc 138.5 Estimated GFR > 60 Random Glucose 107 Lactic Acid 3.9 H* Calcium 8.9 Magnesium 1.6 Total Bilirubin 0.8 AST 65 H ALT 39 Alkaline Phosphatase 58 Total Protein 7.5 Albumin 4.7 Lipase 18 Ethyl Alcohol < 10 Assessment and Plan (1) Alcohol withdrawal syndrome: Qualifiers: Complication of substance-induced condition: uncomplicated Qualified Code(s): F10.930 - Alcohol use, unspecified with withdrawal, uncomplicated Status: Acute Plan 38-year-old male with past medical history alcohol abuse, Vape marijuana not daily, alcohol withdrawal, DVT right upper extremity secondary to foreign body/ IV completed anticoagulation, gastritis/ GERD, transaminitis, hypertension, depressive disorder, mood disorder, anxiety is being admitted for alcohol withdrawal secondary to alcohol abuse-admitted for alcohol withdrawal. Alcohol withdrawal syndrome Anxious and tremulous CIWA 17 CBC BMP mostly unremarkable, lipase normal Acute lactic acidosis-multifactorial: Alcohol use, starvation Urine drug screen Plan: Continue phenobarb protocol, IV fluids, monitor lactic acid. Continue to monitor Transaminitis-likely in the setting of alcohol use LFTs improving, hepatitis screening negative Avoid hepatotoxic medications,Thiamine and folic acid ordered Addictions consulted Tachycardia/elevated blood pressure: Likely in the setting of alcohol use and withdrawal, dehydration. Tachycardia /bp elevated , TSH normal last admission. Continue supportive care with phenobarb protocol, IV fluids. If continue to be elevated blood pressure tachycardia we may need to add labetalol. Possible Gastritis related to alcohol use Denies any abdominal pain nausea vomiting currently advance diet, continue PPI Epistaxis: Secondary to nausea vomiting, Resolved. hx of anxiety -home medication reconciliation pending DVT prophylaxis: Lovenox. PPI prophylaxis: Protonix Patient will benefit from 2 midnight stay considering severe alcohol withdrawals, unable to take p.o.: Need IV fluids, IV ppi, IV antiemetics as well as phenobarb protocol, tele monitoring and closely monitoring for delirium tremens. Above management discussed with the patient in detail length he understand and in agreement with the above plan, time spent 70 minutes, patient is full code. Quality Stroke Does the patient have a stroke diagnosis?: No VTE Prior VTE?: No VTE Risk Level:: Medical - moderate - high VTE Device Contraindication: N/A - Device Ordered VTE Drug Contraindication: N/A - Med Ordered
[2025-03-19 15:40] LABS: Reflex Lactate? Lactic Acid Added
--- NOTE | 2025-03-19 16:05 | PHA.MEDREC ---
Pharmacy Consult ? Medication Reconciliation Pharmacy has completed the medication reconciliation. Spoke with patient in ED. Patient only taking a MVI, omeprazole and trazodone consistently. Patient was previously on Sertraline 100 mg daily, Gabapentin 400 mg bedtime, abilify 10 mg daily but stopped over a month ago due to weight gain. Patient has not received vivitrol injections in a few months at [facility], [facility] [place].
--- NOTE | 2025-03-19 16:19 | HO.NURTONUR ---
39 yr old male admitted for ETOH withdrawal. Pt comes to ED today via EMS from home for c/o abd pain, vomiting blood, and ETOH withdrawal. Pt reports he recently relapsed back into ETOH abuse. He states he woke up feeling generally unwell with vomiting blood. He states he has Hx ETOH withdrawal symptoms but no Hx of withdrawal seizures. On arrival: A&Ox3 and presents with significant anxiety. Breaths and speech are unlabored. Skin is clammy. Hypertensive and tachycardic. CIWA= 17. No vomiting at this time. 20g to posterior RFA Denies SI/HI Pt given IVF, Zofran, Pepcid and Valium in ED. Phenobarb protocol initiated. Clear liquid diet.
[2025-03-19] MEDS: PHENobarbitaL sodium 130 MG/ML VIAL IM Q3Hx2 208 MG IM ×2 (16:33→20:28)
[2025-03-19] MEDS: 0.9 % Sodium Chloride Flush 3 ML SYRINGE IVFLUSH (16:33)
[2025-03-19 16:45] LABS: ~Lactic Acid-LAB USE ONLY 2.3 mmol/L (0.5-2.0)
[2025-03-19 17:30] LABS: Cannabinoid Screen Urine Not Detected (Not Detect)
[2025-03-19 18:00] LABS: Reflex Lactate? 2 Y
[2025-03-19 18:56] LABS: ~Lactic Acid-LAB USE ONLY 2.5 mmol/L (0.5-2.0)
--- NOTE | 2025-03-19 19:44 | PC.NURSE ---
Report received and care assumed at 1900. The pt is noted to be resting comfortably in stretcher on his right side. He appears comfortable, no visible or outward signs of distress noted. Face appears red however this was passed on during report and noted ot be the patient's baseline. The pt's vitals are currently stable, RN will wake and provide introductions shortly when phenobarb dose due at 2000
--- NOTE | 2025-03-19 21:14 | PC.NURSE ---
Pt easily awakened to verbal stimuli at which time he is awake, alert, oriented, and without distress noted. Endorses 7/10 posterior headache without visual disturbances or deficits noted. The pt was given medicine cups and saline to hold his contacts in at the bedside table... he was also provided with eye mask and ear buds per request to assist with canceling out the noise. Pt is requesting his nighttime PRN Trazadone, RN did not see it ordered and outreach made to hospitalist to make them aware. Urinal emptied and placed at bedside, pt asparagus cutter reapplied as leads fell off while patient previously sleeping/moving. New orders obtained regarding pt's trazadone
--- NOTE | 2025-03-19 21:48 | PC.NURSE ---
Pt provided with PRN medications per request. He is without distress noted, appears comfortable. Food and beverage needs continue to be met and call jack is in reach. Pt did get up to use the restroom per his request for staff believes to be a bm. Gait was steady and there was no need for assistance. Pt returned back to bed, reconnected to monitor for continued monitoring and door closed, lights dimmed for comfort
[2025-03-20] VITALS (9 sets, daily range): BP systolic 135–148; BP diastolic 80–102; PULSE 58–117; RESP 12–22; TEMP 36.4–36.9; O2SAT 95–99; BMI 30.5
--- NOTE | 2025-03-20 07:43 | HO.PM.IMPN ---
Subjective Subjective Date of Service: 03/20/25 Interval History: alcohol withdrawals Review of Systems Still tremulous and anxious, but somewhat improving from yesterday Denies any nausea vomiting or abdominal pain Review of Systems: Yes all other systems are reviewed and are negative Physical Exam Exam: Exam: Appearance: Alert.? Oriented X3.? Anxious and tremulous . cvs: rrr, [id number] , no murmur res: clear to auscultation ,no rhonchii or wheezing abd: no rebound or guarding ,nt, bs present. ext pulses present , no cyanosis . neuro: axo3 , nonfocal. Vital Signs: Vital Signs: Last Vital Signs Temp 97.8 F 03/20/25 07:39 Pulse 79 03/20/25 07:39 Resp 14 03/20/25 07:39 BP 139/87 03/20/25 07:39 Pulse Ox 98 03/20/25 07:39 O2 Del Method Room Air 03/20/25 07:39 BMI result Body Mass Index 30.2 Objective Data Active Medications Acetaminophen (Acetaminophen 325 Mg Tablet) 650 mg PO Q6H PRN PRN Reason: Pain, Mild 1-3,fever,headache Calcium Carbonate (Calcium Carbonate 750 Mg Tab.Chew) 750 mg PO Q4H PRN PRN Reason: Heartburn Enoxaparin Sodium (Enoxaparin Sodium 40 Mg/0.4 Ml Syringe) 40 mg SUBCUT Q24H [facility] Last Admin: 03/19/25 15:37 Dose: 40 mg Documented By: MAYLIN Folic Acid (Folic Acid 1 Mg Tablet) 1 mg PO DAILY [facility] Magnesium Hydroxide (Milk Of Magnesia 30 Ml Oral.Susp) 30 ml PO DAILY PRN PRN Reason: Constipation Melatonin (Melatonin 3 Mg Tablet) 6 mg PO BEDTIME PRN PRN Reason: Insomnia Last Admin: 03/19/25 21:32 Dose: 6 mg Documented By: RAYRAY Multivitamins/Vitamin C (Multivitamin Tablet) 1 tab PO DAILY [facility] Ondansetron HCl (Ondansetron Hcl 4 Mg/2 Ml Vial) 4 mg IVPUSH Q6H PRN PRN Reason: Nausea and Vomiting Pantoprazole Sodium (Pantoprazole Sodium 40 Mg/10 Ml Vial) 40 mg IVPUSH BID@0630,1630 [facility] Last Admin: 03/19/25 15:37 Dose: 40 mg Documented By: MAYLIN Pharmacy Consult (Consult Rx Etoh Phenob Im/Po) 1 each MISCELLANE ONCE PRN; Protocol PRN Reason: Consult order Phenobarbital (Phenobarbital 15 Mg Tablet) 45 mg PO BID [facility] Stop: 03/21/25 21:01 Phenobarbital (Phenobarbital 15 Mg Tablet) 15 mg PO BID [facility] Stop: 03/23/25 21:01 Phenobarbital (Phenobarbital 15 Mg Tablet) 15 mg PO DAILY [facility] Stop: 03/25/25 09:01 Sodium Chloride (0.9 % Sodium Chloride Flush 3 Ml Syringe) 3 ml IVFLUSH QSHIFT [facility] Last Admin: 03/20/25 05:50 Dose: Not Given Documented By: RAYRAY Non-Admin Reason: Patient Asleep Thiamine HCl (Thiamine Hcl 100 Mg Tablet) 100 mg PO DAILY [facility] Trazodone HCl (Trazodone Hcl 50 Mg Tablet) 50 mg PO BEDTIME PRN PRN Reason: Sleep Last Admin: 03/19/25 21:32 Dose: 50 mg Documented By: RAYRAY Labs 03/19/25 13:36 03/20/25 09:57 Labs: Laboratory Results - last 24 hr 03/19/25 03/19/25 03/19/25 13:36 14:03 15:56 MCV 80.6 MCH 27.9 MCHC 34.7 RDW 12.4 Plt Count 161 MPV 9.2 L Immature Gran % (Auto) 0.3 Neut % (Auto) 84.7 H Lymph % (Auto) 6.6 L [place] % (Auto) 7.8 Eos % (Auto) 0.0 Baso % (Auto) 0.6 Lymph # (Auto) 0.5 L [place] # (Auto) 0.6 Eos # (Auto) 0.0 Baso # (Auto) 0.0 Abs Immat Gran (auto) 0.02 Absolute Neuts (auto) 6.0 Absolute Nucleated RBC 0.000 Nucleated RBC % (auto) 0.0 Anion Gap 19 Estim Creat Clear Calc 138.5 Estimated GFR > 60 Random Glucose 107 Lactic Acid 3.9 H* Lactic Acid F/U @ 2Hr 2.3 H* Lactic Acid F/U @ 4Hr Calcium 8.9 Magnesium 1.6 Total Bilirubin 0.8 AST 65 H ALT 39 Alkaline Phosphatase 58 Total Protein 7.5 Albumin 4.7 Lipase 18 Urine Opiates Screen Not Detected Ur Buprenorphine Scrn Not Detected Ur Oxycodone Screen Not Detected Urine Methadone Screen Not Detected Urine Fentanyl Screen Not Detected Ur Barbiturates Screen Not Detected Ur Phencyclidine Scrn Not Detected Ur Amphetamines Screen Not Detected U Benzodiazepines Scrn Not Detected Urine Cocaine Screen Not Detected U Marijuana (THC) Screen Not Detected Ethyl Alcohol < 10 03/19/25 18:14 MCV MCH MCHC RDW Plt Count MPV Immature Gran % (Auto) Neut % (Auto) Lymph % (Auto) [place] % (Auto) Eos % (Auto) Baso % (Auto) Lymph # (Auto) [place] # (Auto) Eos # (Auto) Baso # (Auto) Abs Immat Gran (auto) Absolute Neuts (auto) Absolute Nucleated RBC Nucleated RBC % (auto) Anion Gap Estim Creat Clear Calc Estimated GFR Random Glucose Lactic Acid Lactic Acid F/U @ 2Hr Lactic Acid F/U @ 4Hr 2.5 H* Calcium Magnesium Total Bilirubin AST ALT Alkaline Phosphatase Total Protein Albumin Lipase Urine Opiates Screen Ur Buprenorphine Scrn Ur Oxycodone Screen Urine Methadone Screen Urine Fentanyl Screen Ur Barbiturates Screen Ur Phencyclidine Scrn Ur Amphetamines Screen U Benzodiazepines Scrn Urine Cocaine Screen U Marijuana (THC) Screen Ethyl Alcohol Assessment and Plan (1) Alcoholic gastritis: Status: Acute (2) Alcohol abuse with withdrawal: Status: Acute Plan 38-year-old male with past medical history alcohol abuse, Vape marijuana not daily, alcohol withdrawal, DVT right upper extremity secondary to foreign body/ IV completed anticoagulation, gastritis/ GERD, transaminitis, hypertension, depressive disorder, mood disorder, anxiety is being admitted for alcohol withdrawal secondary to alcohol abuse-admitted for alcohol withdrawal. Alcohol withdrawal syndrome Anxious and tremulous CIWA 4 CBC BMP mostly unremarkable, lipase normal Acute lactic acidosis-multifactorial: Alcohol use, starvation-improving Urine drug screen-negative . Plan: Continue phenobarb protocol, IV fluids, monitor lactic acid. Continue to monitor Transaminitis-likely in the setting of alcohol use LFTs improving, hepatitis screening negative Avoid hepatotoxic medications,Thiamine and folic acid ordered Addictions consulted Tachycardia/elevated blood pressure: Likely in the setting of alcohol use and withdrawal, dehydration. Tachycardia /bp improving, TSH normal last admission. Continue supportive care with phenobarb protocol, IV fluids. Possible Gastritis related to alcohol use Denies any abdominal pain nausea vomiting currently advance diet, continue PPI Epistaxis: Secondary to nausea vomiting, Resolved. hx of anxiety -home medication reconciliation pending DVT prophylaxis: Lovenox. PPI prophylaxis: Protonix. ongoing need for stay considering severe alcohol withdrawals, unable to take p.o.: Need IV fluids, IV ppi, IV antiemetics as well as phenobarb protocol, tele monitoring and closely monitoring for delirium tremens. Quality Stroke Does the patient have a stroke diagnosis?: No VTE Prior VTE?: No VTE Risk Level:: Medical - moderate - high VTE Device Contraindication: N/A - Device Ordered VTE Drug Contraindication: N/A - Med Ordered
[2025-03-20] MEDS: 0.9 % Sodium Chloride Flush 3 ML SYRINGE IVFLUSH ×3 (08:18→21:21)
[2025-03-20 10:26] LABS: Anion Gap 16 (12-20); Blood Urea Nitrogen 10 mg/dL (9-16); Calcium 9.2 mg/dL (8.4-10.2); Carbon Dioxide 25 mmol/L (22-29); Chloride 97 mmol/L (96-108); Creatinine Clr Calc Pharmacy 108.0; Estimated Glomerular Filt Rate > 60; Potassium 3.4 mmol/L (3.3-5.1); Sodium 135 mmol/L (135-145)
--- NOTE | 2025-03-20 13:10 | MHC.CM.PN ---
Pt asleep in ED at this time, per record review, he lives alone, and does not have home health services. HCP is on file, his father Duncan. Pt. was in this hosp multiple times this year, DC'd to [facility] in July, and to home in Jan. He will arrange a ride, DCP: home, self care, CM to follow for DC needs.
--- NOTE | 2025-03-20 19:15 | PC.NURSE ---
assumed care of pt, 1L of urine in urinal (disposed of), pt alert and oriented, denies pain, CIWA a 1 for mild anxiety.
[2025-03-21 03:43] VITALS: BP 141/84; PULSE 68; RESP 16; TEMP 36.1; O2SAT 97
[2025-03-21 07:06] VITALS: BP 132/85; PULSE 64; RESP 18; TEMP 36.3; O2SAT 96
[2025-03-21] MEDS: 0.9 % Sodium Chloride Flush 3 ML SYRINGE IVFLUSH (09:52)
--- NOTE | 2025-03-21 09:53 | PM.DS ---
DS: Providers Provider Date of Service: 03/21/25 Date of admission: 03/19/25 14:55 Date of discharge: 03/21/25 Primary care physician: Unknown Physician Consults: 03/19/25 14:57 Addiction Medicine Provider Routine Consulting Provider: Addiction Covering Reason for consultation: alcohol withdrawals Has provider been notified: No Attending physician on discharge: Reuben Bazzi Discharging clinician: Reuben Bazzi DS: Diagnosis Discharge Diagnosis (1) Alcoholic gastritis: Status: Acute (2) Alcohol abuse with withdrawal: Status: Acute DS: Summary Hospital Course Hospital Course: HPI:39y/o M alcohol abuse, Vape marijuana not daily, alcohol withdrawal, DVT right upper extremity secondary to foreign body/ IV completed anticoagulation, gastritis/ GERD, transaminitis, hypertension, depressive disorder, mood disorder, anxiety -came with binge drinking for the past 2 weeks, started drinking approximately 2 months ago initially small amounts and then progressive drinking a proximally 4 boxes of wine a day for the past 2 weeks, has had multiple blackouts, missed his work, smokes occasional marijuana denies any other drug use, during vomiting had an epistaxis from the left [place] and had dark emesis. Has had no hematochezia. He said he vomited so many times that he has started having some epistaxis. He said he had drink too much, after that having nausea vomiting, has some epigastric discomfort. Unable to tolerate food- tried bread last night but right throw up. Otherwise passing gas is okay. Lab imaging reviewed: Has lactic acidosis of 3.9 CBC seems fine CMP reviewed: Seems fine, LFTs slightly better than last time. Urine toxicology pending Chest x-ray: No acute finding EKG sinus tachycardia. Patient received Valium, started on phenobarb protocol, received Zofran and famotidine-still very tremulous and has been feeling still very nauseated, unable to tolerate p.o.: Admission recommended for alcohol withdrawal and possible alcoholic gastritis. Hospital course: Patient was admitted for alcohol withdrawal: Started on phenobarb protocol-seems to be improved significantly. In addition had some nausea/vomiting and epigastric discomfort possibly related to alcoholic gastritis. Continue omeprazole. Acute lactic acidosis-multifactorial: Alcohol use, starvation-improving with hydration, patient is tolerating diet, seems significantly better. Mild elevated LFT likely in the setting of alcohol use-follow liver function test out patiently with PCP. Patient was strongly advised to abstain from alcohol. plan: Monitor LFT, continue home mvi tabs,follow up with PCP outpatient. Strongly advised to abstain from alcohol. Seen by addiction: Psych medications and naltrexone added as above. Continue omeprazole. Patient was strongly advised to abstain from alcohol as above. Follow up with PCP and addiction outpatient. Above management discussed with the patient in detail length he understand and in agreement with the above plan, time spent 50 minute. Time Attestation Total time managing care of this patient today: 45 mintues. Discharge Coordination Time (in mins): 45 min Quality: Safe Use of Opioids Does Pt have an Active Cancer Diagnosis on the Problem List?: No Quality: Stroke Does the patient have a stroke diagnosis?: No Physical Exam Exam: Exam: Appearance: Alert.? Oriented X3.? cvs: rrr, [id number] , no murmur res: clear to auscultation ,no rhonchii or wheezing abd: no rebound or guarding ,nt, bs present. ext pulses present , no cyanosis . neuro: axo3 , nonfocal. Vital Signs: Vital Signs: Last Vital Signs Temp 97.3 F 03/21/25 07:06 Pulse 64 03/21/25 07:06 Resp 18 03/21/25 07:06 BP 132/85 03/21/25 07:06 Pulse Ox 96 03/21/25 07:06 O2 Del Method Room Air 03/21/25 07:06 BMI result Body Mass Index 30.5 DS: Data Data Completed and Pending Completed studies during hospitalization [Text1]: Procedures Detoxification Services for Substance Abuse Treatment (10/27/24) Labs on day of discharge: Laboratory Results - last 24 hr 03/20/25 09:57 Sodium 135 Potassium 3.4 Chloride 97 Carbon Dioxide 25 Anion Gap 16 BUN 10 Creatinine 1.00 Estim Creat Clear Calc 108.0 Estimated GFR > 60 Random Glucose 135 H Calcium 9.2 Imaging Chest x-ray: My impression: cxr:Impression: No acute findings. Discharge Plan Discharge Anticipated Discharge Date/Time: 03/21/25 09:48 Patient Disposition: Home, Self-Care Discharge Diagnosis: Alcohol withdrawal, acute lactic acidosis, elevated LFTs Referrals: [facility] [Provider Group] - 03/21/25 Referral Note: Please walk over to the [facility] after discharge. They are aware and waiting for you. Physician,Unknown J [Primary Care Provider, Medical] - 1 Week Discharge Medications: New sertraline [Zoloft] 50 mg tablet 50 mg PO DAILY Qty: 30 1RF aripiprazole [Abilify] 5 mg tablet 5 mg PO DAILY Qty: 30 1RF naltrexone 50 mg tablet 50 mg PO DAILY Qty: 30 1RF Continued trazodone 50 mg tablet 50 mg PO BEDTIME PRN (Reason: Sleep) Qty: 30 0RF omeprazole 20 mg capsule,delayed release(DR/EC) 20 mg PO DAILY@0630 Qty: 30 0RF multivitamin Tablet 1 tab PO DAILY Discharge Orders: Discharge Order (Routine); Ordered 03/21/25 Ordered By: Reuben Bazzi Diet: Advance to usual diet Activity on Discharge: As tolerated Stand Alone Forms: Patient Portal Discharge page, Work/School Release Print Language: Kyrgyz Care Plan Goals: Monitor LFT, continue home mvi tabs,follow up with PCP outpatient. Strongly advised to abstain from alcohol. Seen by addiction: Psych medications and naltrexone added as above. Continue omeprazole. Patient was strongly advised to abstain from alcohol as above. Follow up with PCP and addiction outpatient Health Concerns: As above. Plan of Treatment: As above. Assessment: as above.
--- NOTE | 2025-03-21 10:14 | HO.ADDICT_ITS ---
History of Present Illness Date of Service: 03/21/2025 Chief Complaint: Alcohol withdrawals Reason for Consult: AUD Sources of Information: patient interviewed and chart reviewed HPI Narrative: Patient is a 39 year old male with diagnosis of AUD, HTN, and MDD. Medically admitted with acute alcohol withdrawal. 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 He reports that after last admission, late September/early October, he continued with outpatient treatment and supports. However over time, started to drink 3-4 beers at home after work. Then slowly stopped going to mutual aid groups he was attending. Then in January, ran out of all medications -which were initiated , per patient, at [facility], and he had no follow up plan. Over , he reports drinking greatly increased in amount and he started drinking all day, not just the evening. Prior to admission, he believes he was drinking at least 2 boxes of wine each day. Withdrawal sx have resolved. No tremor noted. Denies n/v, loose stools. Eating without issue Patient reports his goal is to abstain from alcohol. Would like to restart medications Past Psychiatric History: [place] [facility] [place] OP: No current providers Trials: Prozac, wellbutrin Medical Evaluation Reviewed: Yes Review of Systems Constitutional: Reports as per HPI and Reports no additional constitutional complaints Diagnostics Vital Signs (24Hr): Vital Signs - 24 hr 03/20/25 11:56 03/20/25 14:02 03/20/25 18:22 Temperature 98.1 F 98.4 F 98.4 F Pulse Rate 92 77 113 H Respiratory Rate 22 H 18 15 Blood Pressure 148/96 H 147/80 H 138/102 H Pulse Oximetry 96 97 95 Oxygen Delivery Method Room Air Room Air Room Air 03/20/25 20:54 03/20/25 23:24 03/21/25 03:43 Temperature 97.8 F 97.9 F 97 F Pulse Rate 75 82 68 Respiratory Rate 16 16 16 Blood Pressure 143/94 H 135/92 H 141/84 H Pulse Oximetry 96 97 97 Oxygen Delivery Method Room Air Room Air Room Air 03/21/25 07:06 Temperature 97.3 F Pulse Rate 64 Respiratory Rate 18 Blood Pressure 132/85 Pulse Oximetry 96 Oxygen Delivery Method Room Air BMI result Body Mass Index 30.5 Labs 03/19/25 13:36 03/20/25 09:57 Labs: Laboratory Results - last 48 hr 03/19/25 03/19/25 03/19/25 13:36 14:03 15:56 WBC 7.1 RBC 4.69 Hgb 13.1 L Hct 37.8 L MCV 80.6 MCH 27.9 MCHC 34.7 RDW 12.4 Plt Count 161 MPV 9.2 L Immature Gran % (Auto) 0.3 Neut % (Auto) 84.7 H Lymph % (Auto) 6.6 L [place] % (Auto) 7.8 Eos % (Auto) 0.0 Baso % (Auto) 0.6 Lymph # (Auto) 0.5 L [place] # (Auto) 0.6 Eos # (Auto) 0.0 Baso # (Auto) 0.0 Abs Immat Gran (auto) 0.02 Absolute Neuts (auto) 6.0 Absolute Nucleated RBC 0.000 Nucleated RBC % (auto) 0.0 Sodium 135 Potassium 3.9 Chloride 99 Carbon Dioxide 21 L Anion Gap 19 BUN 11 Creatinine 0.78 Estim Creat Clear Calc 138.5 Estimated GFR > 60 Random Glucose 107 Lactic Acid 3.9 H* Lactic Acid F/U @ 2Hr 2.3 H* Lactic Acid F/U @ 4Hr Calcium 8.9 Magnesium 1.6 Total Bilirubin 0.8 AST 65 H ALT 39 Alkaline Phosphatase 58 Total Protein 7.5 Albumin 4.7 Lipase 18 Urine Opiates Screen Not Detected Ur Buprenorphine Scrn Not Detected Ur Oxycodone Screen Not Detected Urine Methadone Screen Not Detected Urine Fentanyl Screen Not Detected Ur Barbiturates Screen Not Detected Ur Phencyclidine Scrn Not Detected Ur Amphetamines Screen Not Detected U Benzodiazepines Scrn Not Detected Urine Cocaine Screen Not Detected U Marijuana (THC) Screen Not Detected Ethyl Alcohol < 10 03/19/25 03/20/25 18:14 09:57 WBC RBC Hgb Hct MCV MCH MCHC RDW Plt Count MPV Immature Gran % (Auto) Neut % (Auto) Lymph % (Auto) [place] % (Auto) Eos % (Auto) Baso % (Auto) Lymph # (Auto) [place] # (Auto) Eos # (Auto) Baso # (Auto) Abs Immat Gran (auto) Absolute Neuts (auto) Absolute Nucleated RBC Nucleated RBC % (auto) Sodium 135 Potassium 3.4 Chloride 97 Carbon Dioxide 25 Anion Gap 16 BUN 10 Creatinine 1.00 Estim Creat Clear Calc 108.0 Estimated GFR > 60 Random Glucose 135 H Lactic Acid Lactic Acid F/U @ 2Hr Lactic Acid F/U @ 4Hr 2.5 H* Calcium 9.2 Magnesium Total Bilirubin AST ALT Alkaline Phosphatase Total Protein Albumin Lipase Urine Opiates Screen Ur Buprenorphine Scrn Ur Oxycodone Screen Urine Methadone Screen Urine Fentanyl Screen Ur Barbiturates Screen Ur Phencyclidine Scrn Ur Amphetamines Screen U Benzodiazepines Scrn Urine Cocaine Screen U Marijuana (THC) Screen Ethyl Alcohol Mental Status Exam Mental Status Exam Patient Appearance: Appropriate Level of Consciousness: Awake, Appropriate and Alert Patient Behavior: Appropriate and Cooperative Affect Description: Calm Speech Pattern: Clear Hallucinations: None Thought Process: Intact Thought Content: positive for Intact Judgement: Good Medications Medications Current Medications Acetaminophen (Acetaminophen 325 Mg Tablet) 650 mg PO Q6H PRN PRN Reason: Pain, Mild 1-3,fever,headache Calcium Carbonate (Calcium Carbonate 750 Mg Tab.Chew) 750 mg PO Q4H PRN PRN Reason: Heartburn Enoxaparin Sodium (Enoxaparin Sodium 40 Mg/0.4 Ml Syringe) 40 mg SUBCUT Q24H [facility] Last Admin: 03/20/25 14:03 Dose: 40 mg Folic Acid (Folic Acid 1 Mg Tablet) 1 mg PO DAILY [facility] Last Admin: 03/21/25 09:49 Dose: 1 mg Magnesium Hydroxide (Milk Of Magnesia 30 Ml Oral.Susp) 30 ml PO DAILY PRN PRN Reason: Constipation Melatonin (Melatonin 3 Mg Tablet) 6 mg PO BEDTIME PRN PRN Reason: Insomnia Last Admin: 03/20/25 21:21 Dose: 6 mg Multivitamins/Vitamin C (Multivitamin Tablet) 1 tab PO DAILY [facility] Last Admin: 03/21/25 09:49 Dose: 1 tab Ondansetron HCl (Ondansetron Hcl 4 Mg/2 Ml Vial) 4 mg IVPUSH Q6H PRN PRN Reason: Nausea and Vomiting Pantoprazole Sodium (Pantoprazole Sodium 40 Mg/10 Ml Vial) 40 mg IVPUSH BID@0630,1630 [facility] Last Admin: 03/21/25 05:44 Dose: 40 mg Pharmacy Consult (Consult Rx Etoh Phenob Im/Po) 1 each MISCELLANE ONCE PRN; Protocol PRN Reason: Consult order Phenobarbital (Phenobarbital 15 Mg Tablet) 45 mg PO BID [facility] Stop: 03/21/25 21:01 Last Admin: 03/21/25 09:49 Dose: 45 mg Phenobarbital (Phenobarbital 15 Mg Tablet) 15 mg PO BID [facility] Stop: 03/23/25 21:01 Phenobarbital (Phenobarbital 15 Mg Tablet) 15 mg PO DAILY [facility] Stop: 03/25/25 09:01 Sodium Chloride (0.9 % Sodium Chloride Flush 3 Ml Syringe) 3 ml IVFLUSH QSHIFT [facility] Last Admin: 03/21/25 09:52 Dose: 3 ml Thiamine HCl (Thiamine Hcl 100 Mg Tablet) 100 mg PO DAILY [facility] Last Admin: 03/21/25 09:49 Dose: 100 mg Trazodone HCl (Trazodone Hcl 50 Mg Tablet) 50 mg PO BEDTIME PRN PRN Reason: Sleep Last Admin: 03/20/25 21:21 Dose: 50 mg Allergies Allergies Allergy/AdvReac Type Severity Reaction Status Date / Time No Known Allergies (NO KNOWN Allergy Unknown UNKNOWN Verified 03/19/25 12:43 ALLERGIES) Assessment & Plan Assessment & Plan (1) Alcohol use disorder, severe, dependence: Status: Acute Code(s): F10.20 - Alcohol dependence, uncomplicated Assessment and Plan: * withdrawal resolved--patient scheduled to discharge * coordinated with [facility], patient to walk over to office for vivitrol injeciton once discharged * restarted sertraline and abilify at lower doses since he has been without-50mg and 5mg * encouraged to reach out to recovery supports prior to discharge, to have plan in place once home. Total time managing care of this patient today __40__ minutes. PMFSH Past Medical History Medical History Alcohol abuse Deep vein thrombosis, upper right extremity Alcohol use disorder, severe, dependence Alcohol abuse Elevated LFTs Recurrent major depression-severe Alcohol withdrawal syndrome Hypertension Anxiety and depression Psychiatric disturbance Family History Family History Other Lung cancer Social History Social History Household Members: None Housing: House Do you presently have visiting nurse or other home services: No Alcohol intake: current Alcohol intake frequency: 3 or more drinks per day Alcohol type: beer and wine Comment: patient has been binge drinking multiple beers per day for 4-6 days at a t Patient Tobacco Use Status: Never used Tobacco e-Cigarette/Vaping Use: Never Used Second Hand Smoke Exposure: No Substance Use Type: Marijuana Advance Directives Date on File: 01/08/21 service: No Current occupational status: unemployed Sexual orientation: Straight/Heterosexual
--- NOTE | 2025-03-21 10:47 | MHC.CM.PN ---
PATIENT IS MEDICALLY CLEARED FOR DISCHARGE HOME SELF-CARE, HE WILL ARRANGE HIS OWN TRANSPORT HOME TODAY.
== END 2025-03-21 11:43 | disposition home or self-care (01) | DRG 775 ==
LOC: HO.ED 14:03 → HO.EDOVER 15:22 → HO.IMC 03-20 19:31
PROVIDERS: Admitting Provider Internal Medicine; Emergency Provider Emergency Medicine; Visit Provider Internal Medicine
DX: F10.239 Alcohol dependence with withdrawal, unspecified (principal); F41.9 Anxiety disorder, unspecified; K29.20 Alcoholic gastritis without bleeding; I10 Essential (primary) hypertension; Z79.899 Other long term (current) drug therapy
CPT/HCPCS: 36415; 71045; 80048; 80053; 80307; 83605; 83690; 83735; 85025; 93005; 99285; J1308; J1650; J2405; J2470; J2560; J3360; S9485

== ENCOUNTER → 2025-03-19 13:03 | Outpatient (BNV) | payer BC, SELFPAY | PROVIDERS: Admitting Provider Internal Medicine; Emergency Provider Emergency Medicine; Visit Provider Internal Medicine Cardiovascular Disease | DX: R00.0 Tachycardia, unspecified (principal) | CPT/HCPCS: 93010 ==

== ENCOUNTER → 2025-03-19 13:06 | Outpatient (BNV) | payer BC, SELFPAY | PROVIDERS: Emergency Provider Emergency Medicine; Visit Provider Radiology Diagnostic Radiology | DX: R11.10 Vomiting, unspecified (principal) | CPT/HCPCS: 71045 ==

== ENCOUNTER → 2025-03-19 14:55 | Outpatient (BNV) | payer BC, SELFPAY | PROVIDERS: Admitting Provider Internal Medicine; Emergency Provider Emergency Medicine; Visit Provider Nurse Practitioner Psychiatric/Mental Health | DX: F10.20 Alcohol dependence, uncomplicated (principal) | CPT/HCPCS: 99253 ==

== ENCOUNTER → 2025-03-19 14:55 | Outpatient (BNV) | payer BC, SELFPAY | PROVIDERS: Admitting Provider Internal Medicine; Emergency Provider Emergency Medicine; Visit Provider Internal Medicine | DX: K29.20 Alcoholic gastritis without bleeding (principal); F10.139 Alcohol abuse with withdrawal, unspecified | CPT/HCPCS: 99222; 99231; 99239 ==

== ENCOUNTER 2025-03-21 11:42 | Outpatient (AMB) | payer BC, SELFPAY ==
--- NOTE | 2025-03-21 11:47 | AM.OFFVISNUR ---
Vital Signs 03/21/25 11:50 Height 5 ft 8 in Weight 92.079 kg BMI 30.9 BP 140/88 H Pulse Oximetry (%) 97 Intake Visit Reasons: Injection Allergies No Known Allergies (NO KNOWN ALLERGIES) Allergy (Unknown, Verified 03/21/25 11:57) UNKNOWN Nursing Note Kar walked in to the [facility] [place] [facility] to receive his Vivitrol injection, he was just discharged from the med floor after a relaplse that began slowly 2 months ago and ended more recently with heavy consumption over the past 2 weeks. Kar left [facility] where his mental health medications were prescribed and ran out due to not having a prescriber or a PCP. TW called [facility] PCP and was told they were accepting patients in May,- Kar was givent that information to follow up with and verbalized intent to do so. Inpatient recovery team covered his medications with refills long enough to see PCP in May. Dicussed the importance of medication compliance and follow up care. Sending referral to [facility] as well. Kar planned to go to an AA meeting today- TW highly recommended a sponsor. Pt told to follow up with the offfice if needing any other supports, verbalized understanding. Follow-up appointment in 4 weeks for next injection. Office Meds Vivitrol 380 mg intramuscular suspension,extended release Performing Provider: Anjali Begum MD Performing Location: [facility] Administered by: Rosario Eaton RN on 03/21/25 12:12 Dose Route Admin Location Dispensed Lot Number Expiration Date [facility] Business Analytics Director 380 mg IM RG 380 mg [id number] 03/31/27 17021-333-53 [employer] Total Dispensed Waste 380 mg 0 % Comments: Pt is present for Vivitrol injection, pt denies complications with previous injections and tolerated injection well. Pt educated on signs and symptoms of infection at the injection site, urged to call [facility] [place] [facility] with any questions or concerns. Follow up appointment made in 4 weeks for next injection. Assessment & Plan Assessment & Plan Orders: Orders AMB Naltrexone Injection Patient Supplied (NC) Today F10.139 - Alcohol abuse with withdrawal, unspecified, F10.20 - Alcohol dependence, uncomplicated Coding
[2025-03-21 11:50] VITALS: BP 140/88; O2SAT 97; BMI 30.9
--- OUTSIDE RECORDS SUMMARY | 2025-03-21 15:11 | XMS_ITS | Clinical Summary ---
Author Organization [facility] Address [address] [place] [id number] Phone Care Team Providers Care Control Clerk Repairs Name Role Phone Cristóbal Abraham MD Primary [...] after an alcohol binge requiring admission to [facility]. Suspect this is alcohol gastritis without [...] topic Medical Devices Not on file Insurance [facility] H[facility] Member Subscriber Plan / Payer (Ef fective 2020-Present) Name:Juliocesar Boateng Relation to Subscriber:Self Name:Juliocesar Boateng Payer ID:Not on file Type:O Address: [address] [facility] HMO [facility] Advance Directives For more information, please contact: [phone] (9AM - 5PM [facility], Thursday-Thursday) * Full Code (Latest Code Status on File) Date Activated Date Inactivated Comments 08/19/2021 12:39 PM Question Answer Comments Code Status Confirmed With: Patient Code Status Communicated To: Inpatient Attending Care Teams Control Clerk Repairs Relationship Specialty Start Date End Date Cristóbal Abraham MD [address] [place] [phone] PCP - General Internal Medicine 08/18/21 Additional Source Comments The information contained in this document represents components of the legal health record. It is not the complete legal health record.[facility]
--- OUTSIDE RECORDS SUMMARY | 2025-03-21 15:11 | XMS_ITS | Clinical Summary ---
Author Organization [employer] Address [address] [place] [address] [address] [place] [address] Care Team Providers Care [place] Pilot Name Role Phone Unavailable Primary Care Provider [...] patient's age to complete this topic Insurance [facility] [employer] [id number]
== END 2025-03-21 13:09 | disposition home or self-care (01) ==
LOC: HO.HCC 11:42
DX: F10.20 Alcohol dependence, uncomplicated (principal)

== ENCOUNTER → 2025-03-21 11:42 | Outpatient (BNVA) | payer BC, SELFPAY | DX: F10.20 Alcohol dependence, uncomplicated (principal) | CPT/HCPCS: 96372; J2315 ==